=== PATIENT | female | born 1945 | race Caucasian/White ===

== ENCOUNTER 2016-07-17 17:08 | Inpatient (IN) | payer MEDICARE, OTHER ==
[2016-07-17] MEDS ORDERED: HYDROmorphone 1 MG/ML 1 ML SYRINGE IVP STA (17:25)
[2016-07-17 17:52] LABS: INR 1.1 (<1.1); Partial Thromboplastin Time 26.5 sec (22.0-30.0); Prothrombin Time 11.4 sec (9.0-12.0)
[2016-07-17 17:57] LABS: ALT 34 U/L (9-52); AST 43 U/L (14-36); Alkaline Phosphatase 71 U/L (38-126); Anion Gap 10 mmol/L; Blood Urea Nitrogen 17 mg/dL (7-17); Calcium 8.5 mg/dL (8.4-10.2); Carbon Dioxide 28 mmol/L (22-30); Chloride 99 mmol/L (98-107); Glucose 90 mg/dL (74-99); Magnesium 1.8 mg/dL (1.6-2.3); Non-African American GFR(MDRD) 58 (>60 ml/min/1.73 sqM); Potassium 3.7 mmol/L (3.5-5.1); Sodium 137 mmol/L (137-145); Total Bilirubin 0.4 mg/dL (0.2-1.3); Total Protein 6.6 g/dL (6.3-8.2)
[2016-07-17 18:00] LABS: Creatine Kinase 27 U/L (30-135)
[2016-07-17 18:06] LABS: Aty Lym Flag Slight; CH 29.9; CHCM 32.3; HCT 37.1 % (34.0-46.0); HDW 2.63; HGB 12.1 gm/dL (11.4-16.0); MCH 30.3 pg (25.0-35.0); MCHC 32.5 g/dL (31.0-37.0); Mean Platelet Volume 7.2; RBC 3.99 m/uL (3.80-5.40); RDW 13.6 % (11.5-15.5); WBC 2.5 k/uL (3.8-10.6); WBC (Perox) 2.63
[2016-07-17 18:13] LABS: Creatine Kinase MB <0.2 ng/mL (0.0-2.4); Troponin I <0.012 ng/mL (0.000-0.034)
[2016-07-17 18:24] LABS: Add Differential Manual Differential
[2016-07-17 18:27] LABS: Nucleated Red Blood Cells 0 /100 WBC (0-0); Polychromasia Present; Total Cells Counted 100
--- NOTE | 2016-07-17 18:27 | CT ---
EXAMINATION TYPE: CT brain cspine wo con DATE OF EXAM: 07/17/2016 6:01 PM COMPARISON: 09/24/2015 and 05/28/2009 HISTORY: Multiple syncopal episodes today with possible injuries CT DLP: 1458 mGycm Automated exposure control for dose reduction was used. TECHNIQUE: CT scan of the head and cervical spine are performed without contrast. FINDINGS: Ventricles and sulci appear fairly normal. There is no mass effect nor midline shift. The re is no sign of intracranial hemorrhage. The calvarium is intact. The cervical vertebrae are fairly normal alignment. There is degenerative disc space narrowing at C5- 6 C6-7 with spurring of the endplates. There is some encroachment on the spinal canal posteriorly at C5-6. There is uncovertebral spur formation and variable neural foraminal impingement. The skull base is intact. Posterior elements are intact. IMPRESSION: Negative CT scan of the brain. No change compared to old exam. Spondylosis at C5-6 C6-7. There is not a significant change in the appearance of the cervical spine c ompared to 05/28/2009 exam.
[2016-07-17] MEDS ORDERED: HYDROmorphone 2 MG/ML 1 ML SYRINGE IVP STA (18:41)
--- NOTE | 2016-07-17 20:05 | ED ---
Syncope HPI - General Chief Complaint: Syncope Stated Complaint: Syncopal Episode Time Seen by Provider: 07/17/16 17:17 Source: patient, EMS Mode of arrival: EMS Limitations: no limitations - History of Present Illness Initial Comments: This 62-year-old white female presents with a complaint of multiple syncopal episodes today. She apparently had 3 syncopal episodes and fell each time. She hit her head twice. She states that she felt dizzy and nauseated prior to each episode. She is unsure how long she was out of consciousness. She does complain of a slight headache with some swelling posteriorly. She does have a history of previous syncopal episodes. She has been worked up previously by Dr. Hernandez and Dr. Sanchez from cardiology. She also has been worked up at [facility]. She apparently was seen them for GI related issues and then ended up having a pacemaker placed either cardiology department. She had her flecanide and metoprolol stopped 5 days ago and was started on my sotalol per patient. She also was recently started on a liquid this for thinning of her blood due to her atrial fibrillation. She states that each episode occurred with standing. She also is complaining of some chronic low back pain initially and states that she did not injure it during the falls. She later relates that she is having increased low back pain and is requesting an x-ray. No other complaints or modifying factors. - Related Data Home Medications Medication Instructions Recorded Confirmed Gabapentin [Neurontin] 300 mg PO TID 02/15/16 07/17/16 Magnesium Gluconate [Magonate] 500 mg PO DAILY 02/15/16 07/17/16 Potassium Chloride ER [K-Dur 10] 10 meq PO DAILY 02/15/16 07/17/16 SUMAtriptan SUCCINATE [Imitrex] 50 mg PO BID PRN 02/15/16 07/17/16 Omeprazole 20 mg PO BID 03/22/16 07/17/16 Acetaminophen [Tylenol] 650 mg PO Q6H PRN 07/17/16 07/17/16 Apixaban [Eliquis] 5 mg PO BID 07/17/16 07/17/16 Aspirin [Adult Low Dose Aspirin EC] 81 mg PO DAILY 07/17/16 07/17/16 DULoxetine HCL [Cymbalta] 60 mg PO DAILY 07/17/16 07/17/16 Furosemide [Lasix] 40 mg PO DAILY PRN 07/17/16 07/17/16 Metoprolol Tartrate [Lopressor] 25 mg PO TID 07/17/16 07/17/16 Sotalol [Betapace] 120 mg PO BID 07/17/16 07/17/16 Sucralfate [Carafate] 1 gm PO Q6H 07/17/16 07/17/16 Previous Rx's Medication Instructions Recorded Levothyroxine Sodium [Synthroid] 50 mcg PO DAILY@0630 #30 tab 03/27/16 Allergies Allergy/AdvReac Type Severity Reaction Status Date / Time celecoxib [From Celebrex] Allergy Swelling Verified 07/17/16 18:18 sertraline HCl [From Zoloft] Allergy Swelling Verified 07/17/16 18:18 sulfamethoxazole Allergy Rash/Hives Verified 07/17/16 18:18 [From Bactrim] trimethoprim [From Bactrim] Allergy Rash/Hives Verified 07/17/16 18:18 Review of Systems ROS Statement: Those systems with pertinent positive or pertinent negative responses have been documented in the HPI. ROS Other: All systems not noted in ROS Statement are negative. Past Medical History Past Medical History: Atrial Fibrillation, Coronary Artery Disease (CAD), Chest Pain / Angina, Fibromyalgia, Hypertension, Myocardial Infarction (non Q-wave), Osteoarthritis (OA), Thyroid Disorder Additional Past Medical History / Comment(s): 07/13/16 discharged from [facility] FOR C/O SYNCPOPAL EPISODES-OTHER PAST MEDICAL HX INCLUDES: back and shoulder pain,osteoporosis. L4 FX (2012 D/T FALL). RHEUMATIC FEVER. 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 DILATATION OF ESOPHAGUS, pacemaker placed 2 weeks ago 07/07 Past Anesthesia/Blood Transfusion Reactions: Motion Sickness, Postoperative Nausea & Vomiting (PONV) Past Psychological History: Anxiety, Depression Additional Psychological History / Comment(s): PANIC ATTACK Smoking Status: Never smoker Past Alcohol Use History: None Reported Past Drug Use History: None Reported - Past Family History Brother(s) Family Medical History: Cancer Father Family Medical History: COPD, Pneumonia Additional Family Medical History / Comment(s): emphysema Mother Family Medical History: Rheumatoid Arthritis (RA) Additional Family Medical History / Comment(s): smoked, emphysema, ostoeporosis. General Exam - General Exam Comments Initial Comments: GENERAL: The patient is well nourished and well hydrated. VITAL SIGNS: Heart rate, blood pressure, respiratory rate reviewed as recorded in nurse's notes. EYES: Pupils are round and reactive. Extraocular movements are intact. No conjunctival / lid redness or swelling. ENT: There is a mild swelling/hematoma to her right occiput. There is mild associated tenderness. No other signs of trauma. Airway is patent. Throat is clear. NECK: Nontender. No swelling or evidence of injury. No subcutaneous emphysema. Trachea is midline. No thyroid mass. HEART: Regular rate and rhythm. Good peripheral pulses. LUNGS/CHEST: Breath sounds clear and equal bilaterally. No rales, rhonchi, or wheezes. No ecchymosis, subcutaneous emphysema, or tenderness. ABDOMEN: Abdomen soft without tenderness. No palpable masses or organomegaly. No peritoneal signs. No abdominal wall swelling or ecchymosis. EXTREMITIES: No extremity tenderness. Normal muscle tone and function. There is mild tenderness noted to her paralumbar musculature. NEUROLOGIC: Sensation is grossly intact. Cranial nerve exam reveals face is symmetrical, tongue is midline, speech is clear. SKIN: No abrasions or ecchymosis is noted. No induration or masses noted. PSYCHIATRIC: Alert and oriented. Appropriate behavior and judgment. Limitations: no limitations Course Vital Signs 07/17/16 07/17/16 17:12 18:27 Temperature 97.9 F Pulse Rate 85 80 Respiratory 16 18 Rate Blood Pressure 118/76 120/69 O2 Sat by Pulse 96 94 L Oximetry Medical Decision Making - Medical Decision Making The patient was seen and examined. All diagnostics were reviewed. EKG shows an atrial paced rhythm. There is a left axis deviation. There is no acute ST- T wave changes identified. The ventricular rate is 80, ND intervals 184 cure zoroastrianism is 82, and the QTc interval is 507. The patient had a computed tomography scan of the brain which did not show any acute processes other than some swelling in the right occiput. The CT of the neck that shows some spondylosis in the C5 to C7 region but no acute process and this is consistent with prior computed tomography scan. The patient also had some laboratory done and this is reviewed. A lumbar x-ray is later added due to her complaint of pain in this is pending. She received some Dilaudid for her pain syndrome. She is feeling improved on recheck. No ectopy is noted on the director of cardiac cath lab throughout the ER stay thus far. It is felt as though she would require admission to the hospital for further evaluation and treatment and cardiology consultation. She is agreeable. Case is discussed with internal medicine and she is noted in for further treatment. - Lab Data Result diagrams: 07/17/16 17:30 07/17/16 17:30 Lab Results 07/17/16 07/17/16 07/17/16 Range/Units 17:30 17:30 17:30 WBC 2.5 L (3.8-10.6) k/uL RBC 3.99 (3.80-5.40) m/uL Hgb 12.1 (11.4-16.0) gm/dL Hct 37.1 (34.0-46.0) % MCV 93.0 (80.0-100.0) fL MCH 30.3 (25.0-35.0) pg MCHC 32.5 (31.0-37.0) g/dL RDW 13.6 (11.5-15.5) % Plt Count 220 (150-450) k/uL Neutrophils % [employer] Neutrophils % (Manual) 39.0 % Lymphocytes % [employer] Lymphocytes % (Manual) 49.0 % Monocytes % [employer] Monocytes % (Manual) 12.0 % Eosinophils % [employer] Basophils % [employer] Neutrophils # [employer] Neutrophils # (Manual) 1.0 L (1.3-7.7) k/uL Lymphocytes # [employer] Lymphocytes # (Manual) 1.2 (1.0-4.8) k/uL Monocytes # [employer] Monocytes # (Manual) 0.3 (0-1.0) k/uL Eosinophils # [employer] Basophils # [employer] Nucleated RBCs 0 (0-0) /100 WBC Polychromasia Present PT (9.0-12.0) sec INR (<1.1) APTT (22.0-30.0) sec Sodium 137 (137-145) mmol/L Potassium 3.7 (3.5-5.1) mmol/L Chloride 99 (98-107) mmol/L Carbon Dioxide 28 (22-30) mmol/L Anion Gap 10 mmol/L BUN 17 (7-17) mg/dL Creatinine 0.95 (0.52-1.04) mg/dL Est GFR (MDRD) Af Amer >60 (>60 ml/min/1.73 sqM) Est GFR (MDRD) Non-Af 58 (>60 ml/min/1.73 sqM) Glucose 90 (74-99) mg/dL Calcium 8.5 (8.4-10.2) mg/dL Magnesium 1.8 (1.6-2.3) mg/dL Total Bilirubin 0.4 (0.2-1.3) mg/dL AST 43 H (14-36) U/L ALT 34 (9-52) U/L Alkaline Phosphatase 71 (38-126) U/L Total Creatine Kinase 27 L (30-135) U/L CK-MB (CK-2) <0.2 (0.0-2.4) ng/mL CK-MB (CK-2) Rel Index Troponin I <0.012 (0.000-0.034) ng/mL Total Protein 6.6 (6.3-8.2) g/dL Albumin 3.5 (3.5-5.0) g/dL 07/17/16 Range/Units 17:30 WBC (3.8-10.6) k/uL RBC (3.80-5.40) m/uL Hgb (11.4-16.0) gm/dL Hct (34.0-46.0) % MCV (80.0-100.0) fL MCH (25.0-35.0) pg MCHC (31.0-37.0) g/dL RDW (11.5-15.5) % Plt Count (150-450) k/uL Neutrophils % Neutrophils % (Manual) % Lymphocytes % Lymphocytes % (Manual) % Monocytes % Monocytes % (Manual) % Eosinophils % Basophils % Neutrophils # Neutrophils # (Manual) (1.3-7.7) k/uL Lymphocytes # Lymphocytes # (Manual) (1.0-4.8) k/uL Monocytes # Monocytes # (Manual) (0-1.0) k/uL Eosinophils # Basophils # Nucleated RBCs (0-0) /100 WBC Polychromasia PT 11.4 (9.0-12.0) sec INR 1.1 (<1.1) APTT 26.5 (22.0-30.0) sec Sodium (137-145) mmol/L Potassium (3.5-5.1) mmol/L Chloride (98-107) mmol/L Carbon Dioxide (22-30) mmol/L Anion Gap mmol/L BUN (7-17) mg/dL Creatinine (0.52-1.04) mg/dL Est GFR (MDRD) Af Amer (>60 ml/min/1.73 sqM) Est GFR (MDRD) Non-Af (>60 ml/min/1.73 sqM) Glucose (74-99) mg/dL Calcium (8.4-10.2) mg/dL Magnesium (1.6-2.3) mg/dL Total Bilirubin (0.2-1.3) mg/dL AST (14-36) U/L ALT (9-52) U/L Alkaline Phosphatase (38-126) U/L Total Creatine Kinase (30-135) U/L CK-MB (CK-2) (0.0-2.4) ng/mL CK-MB (CK-2) Rel Index Troponin I (0.000-0.034) ng/mL Total Protein (6.3-8.2) g/dL Albumin (3.5-5.0) g/dL Disposition Clinical Impression: Syncope, Head injury, Weakness, Fatigue, Atrial fibrillation, Spondylosis of cervical spine, Prolonged Q-T interval on ECG, Chronic low back pain, Fall Disposition: ADMITTED IP TO THIS [facility] Condition: Fair Time of Disposition: 20:10 Decision Date: 07/17/16 Decision Time: 20:10
[2016-07-17] MEDS ORDERED: ACETAMINOPHEN TAB 325 MG TAB PO PRN (20:15)
[2016-07-17] MEDS ORDERED: FUROSEMIDE 40 MG TAB PO PRN (20:15)
--- NOTE | 2016-07-17 20:30 | XR ---
EXAMINATION TYPE: XR lumbar spine 2 or 3V DATE OF EXAM: 07/17/2016 8:23 PM COMPARISON: 04/11/2013 HISTORY: Low back pain TECHNIQUE: 3 views FINDINGS: Bones are osteopenic. There is 20% depression of the central superior endplate of L4. There is some biconcave change in the L3 vertebra. There are similar changes also at L1 vertebra. There is intact sacrum. Posterior elements appear intact. There is a mild thoracolumbar levoscoliosis. IMPRESSION: There are changes of osteomalacia. Stable mild depression of L4 superior endplate. Osteop enia appears slightly worse than old exam.
[2016-07-17] MEDS: HYDROmorphone 1 MG/ML 1 ML SYRINGE IVP PRN (21:33)
[2016-07-17] MEDS ORDERED: METOPROLOL TARTRATE 25 MG TAB PO SCH (22:00)
[2016-07-17] MEDS: SOTALOL 120 MG TAB PO SCH (22:46)
[2016-07-17] MEDS: GABAPENTIN 300 MG CAP PO SCH (23:40)
[2016-07-17] MEDS: SUCRALFATE 1 GM TAB PO SCH (23:40)
[2016-07-17] MEDS: APIXABAN 5 MG TAB PO SCH (23:40)
[2016-07-18 00:48] LABS: Creatine Kinase 28 U/L (30-135)
[2016-07-18] MEDS: HYDROmorphone 1 MG/ML 1 ML SYRINGE IVP PRN ×4 (00:56→10:32)
[2016-07-18 01:03] LABS: Creatine Kinase MB 0.2 ng/mL (0.0-2.4); Troponin I <0.012 ng/mL (0.000-0.034)
[2016-07-18] MEDS: SUCRALFATE 1 GM TAB PO SCH ×4 (03:36→22:02)
[2016-07-18] MEDS: PANTOPRAZOLE 40 MG TABLET PO SCH (06:23)
[2016-07-18] MEDS: LEVOTHYROXINE 50 MCG TAB PO SCH (06:23)
[2016-07-18 07:01] LABS: Creatine Kinase 33 U/L (30-135)
[2016-07-18 07:13] LABS: Creatine Kinase MB 0.3 ng/mL (0.0-2.4); Troponin I <0.012 ng/mL (0.000-0.034)
[2016-07-18] MEDS: SOTALOL 120 MG TAB PO SCH ×2 (08:02→22:50)
[2016-07-18] MEDS ORDERED: ASPIRIN 325 MG TAB PO SCH (09:00)
[2016-07-18] MEDS ORDERED: SODIUM CHLORIDE 0.9% 1,000 ML IV SCH (09:15)
[2016-07-18 09:42] VITALS: BMI 21.0
[2016-07-18] MEDS: APIXABAN 5 MG TAB PO SCH ×2 (09:46→22:02)
[2016-07-18] MEDS: DULoxetine HCL 60 MG CAPSULE.DR PO SCH (09:47)
[2016-07-18] MEDS: GABAPENTIN 300 MG CAP PO SCH ×3 (09:47→22:02)
[2016-07-18] MEDS: MAGNESIUM OXIDE 400 MG TAB PO SCH (09:48)
[2016-07-18] MEDS: POTASSIUM CHLORIDE ER 10 MEQ TAB.ER.PRT PO SCH (09:49)
--- NOTE | 2016-07-18 11:24 | CONS ---
DATE OF CONSULTATION: Mavis Marquez is a 70-year-old female admitted by Dr. Rich Wong. PATIENT IS ALLERGIC TO MULTIPLE MEDICATIONS, WHICH INCLUDE: ( ) SERTRALINE AND SULFA. The patient admitted to the hospital with recurrent syncope with contusion to the occipital contusion. Patient all these episodes happened while she was standing only and documented to have severe orthostatic hypotension. The patient dropping from 110, 109 down to 73 on the floor, apparently in the emergency room dropped to mid 50s. The patient will discontinue ( ) diuretics which she has been taking on and off and we will get an echocardiogram to assess LV function. I spoke with Dr. Hernandez and the patient's daughter and the patient herself agreed to see Dr. Hernandez for follow-up. Will see. The patient does have dysautonomia with severe orthostatic hypotension. The patient has been on multiple medications, which include: 1. Eliquis 5 mg p.o. b.i.d. 2. Aspirin 325 mg. 3. Cymbalta 60 mg p.o. daily. 4. Furosemide 40 mg p.r.n. only. 5. We will discontinue the Lasix and furosemide for now. 6. Gabapentin 300 mg p.o. t.i.d. 7. The patient is on levothyroxine 50 mg p.o. daily. 8. Magnesium 40 mg p.o. daily. 9. Protonix 40 mg a.c. breakfast. 10. Potassium chloride 10 mEq p.o. daily. 11. ( ) succinate 50 mg b.i.d. p.r.n. 12. Patient is started on IV fluids 100 mL per hour. 13. Sotalol 20 mg p.o. b.i.d. 14. Sucralfate 1 gram q.6 hours daily. Patient's past history remarkable for atrial flutter. Patient also had a pacemaker done 2 to 3 weeks ago. Patient medication changed from Flecainide and metoprolol to sotalol. Patient has severe documented hypotension, orthostatic hypotension. If IV fluids do not correct, we may have to think about fludrocortisone and let my associate, Dr. Hernandez is going to see her today and make any changes in the medications. Patient's review of systems are essentially unremarkable other than what is stated in the presenting illness. Patient is a 70 -year-old pleasant lady with stable vital signs with a pulse rate of 82 beats per minute and irregular, paced rhythm, atrial paced rhythm with blood pressure 90/54 with a standing blood pressure of 55/40 and 73/49 standing on 2 different occasions. I spoke with the patient and family regarding these findings also, treatment. Neck is supple. No JVD. HEAD: Normocephalic. HEENT unremarkable. CARDIAC EXAMINATION: Pacer rhythm, S1 and S2, short systolic murmur at the apex. LUNGS: Clear to auscultation and percussion. ABDOMEN: Soft, no organomegaly. Active bowel sounds. EXTREMITIES: Peripheral pulses. No pedal edema. CENTRAL NERVOUS SYSTEM: Grossly within normal limits. ASSESSMENT: 1. Atrial flutter with atrial paced rhythm. 2. History of gastrointestinal bleed. 3. History of ( ) syncope, recent associated with severe orthostatic hypotension. I spoke with Dr. Hernandez and regarding consult with him and meanwhile we will give IV fluids to keep the volume status up, reduce the hypertension. We will discontinue the diuretics. Will get an echocardiogram to assess LV function.
--- NOTE | 2016-07-18 12:44 | HP ---
DATE OF ADMISSION: 07/17/2016 PRESENTING COMPLAINT: Passed out. HISTORY OF PRESENTING COMPLAINT: This is a very pleasant 70-year-old patient known to me from multiple prior admissions. Patient's chronic stable medical conditions include: Peptic ulcer disease, esophagitis, hypertension, osteoarthritis, depression, esophageal dysmotility from esophagitis. The patient about two to three weeks ago was at [facility] where she had dilatation of the esophagus carried out. Patient also with A. fib, went into rapid rate and patient had to have a pacemaker placed. Patient has been home for about 2 weeks and patient had 3 episodes of passing out. Typically described that for example she was in the kitchen, really felt dizzy and then everything seemed to blank out and patient fell down bumping her head. Once it happened on the phone. This always happens when patient is standing up. REVIEW OF SYSTEMS: CONSTITUTIONAL: Tired. HEENT: A little bit bump on the head. RESPIRATORY: None. CARDIOVASCULAR: No chest pain. GASTROINTESTINAL: Some constipation. GENITOURINARY: None. MUSCULOSKELETAL: Pain in the joints. Dermatological: None. HEMATOLOGICAL: None. LYMPHATICS: None. PSYCHIATRY: None. NEUROLOGICAL: Intermittent chronic headaches. Past medical history of hypothyroidism, fibromyalgia, hypertension, DJD, esophagitis with henri infection, esophageal stricture, anxiety, depression, paroxysmal atrial fibrillation, iliopsoas with esophagitis, peptic ulcer disease. PAST SURGICAL HISTORY: Esophageal dilatation, pacemaker placement, ORIF of the right lower arm, cardiac cath, appendectomy. SOCIAL HISTORY: No smoking. Lives by herself. No alcohol. Family history of emphysema. ALLERGIES: CELEBREX, ZOLOFT AND BACTRIM. On examination: Vital signs on presentation: Temperature 97.9, pulse 85, respiration 16, blood pressure 108/76, pulse ox 96% on 2 liters. GENERAL APPEARANCE: Very thin build, lying in bed. Tired -appearing. EYES: Pupils equal. Conjunctivae pale. HEENT: External appearance of nose and ears normal. Oral cavity normal. NECK: JVD not raised. Mass not palpable. RESPIRATORY: Effort normal. LUNGS: Clear. CARDIOVASCULAR: First and second sounds normal. No edema. ABDOMEN: Soft, nontender. Liver and spleen not palpable. LYMPHATIC: No lymph nodes palpable in neck or axillae. PSYCHIATRY: Alert and oriented x3. Mood and affect anxious appearing. MUSCULOSKELETAL: Some diffuse wasting of the muscles. INVESTIGATIONS: White count 2.5, hemoglobin 12.1, potassium 3.7. BUN and creatinine are normal. Troponin negative. EKG shows paced rhythm. Lumbar spine x-ray shows some osteopenia and head and cervical spine CAT scan nil acute. ASSESSMENT: 1. This is a patient who presented with three episodes of syncope, passing out, recently had a pacemaker placed for atrial fibrillation with rapid ventricular rate, that well could be arrhythmia, ( ) the response to the same, need to rule out orthostatic. 2. Peptic ulcer disease. 3. Chronic esophagitis. 4. Essential hypertension. 5. Primary osteoarthritis multiple joints, bilateral. 6. Depression, not otherwise specified. 7. Esophageal dysmotility. 8. Hypothyroidism. PLAN: Home medications will be resumed. We will check orthostatics. Cardiology is consulted. It also may be noted that 5 days ago patient's flecainide and metoprolol was discontinued because felt to be causing low blood pressure and she was started on sotalol. Copy to Dr. Wray.
--- NOTE | 2016-07-18 13:41 | ECHOF ---
Referral Reason:syncope MEASUREMENTS -------- HEIGHT: 154.9 cm WEIGHT: 50.4 kg BP: 103/55 RVIDd: 3.2 cm (< 3.3) IVSd: 1.3 cm (0.6 - 1.1) LVIDd: 2.5 cm (3.9 - 5.3) LVPWd: 1.2 cm (0.6 - 1.1) IVSs: 1.6 cm LVIDs: 2.3 cm LVPWs: 1.6 cm LA Diam: 3.3 cm (2.7 - 3.8) LAESV Index (A-L): 17.71 ml/m Ao Diam: 2.6 cm (2.0 - 3.7) AV Cusp: 1.7 cm (1.5 - 2.6) LA Diam: 2.6 cm (2.7 - 3.8) MV EXCURSION: 11.540 mm (> 18.000) MV EF SLOPE: 34 mm/s (70 - 150) EPSS: 0.3 cm MV E Jon: 0.41 m/s MV DecT: 171 ms MV A Jon: 0.73 m/s MV E/A Ratio: 0.56 AR PHT: 1148 ms RAP: 5.00 mmHg RVSP: 30.10 mmHg FINDINGS -------- Sinus rhythm. Paced rhythm. Pacerwire seen in RV and RA. This was a technically good study. The left ventricular size is normal. There is mild concentric left ventricular hypertrophy. Overall left ventricular systolic function is normal with, an EF between 55 - 60 %. The right ventricle is normal in size. Normal LA size by volume 22+/-6 ml/m2. The right atrium is normal in size. Aortic valve is trileaflet and is mildly thickened. There is mild aortic regurgitation. Mild mitral annular calcification present. Mild mitral regurgitation is present. Moderate tricuspid regurgitation present. Right ventricular systolic pressure is normal at < 35 mmHg. Trace/mild (physiologic) pulmonic regurgitation. The aortic root, ascending aorta and aortic arch are normal. Normal inferior vena cava with normal inspiratory collapse consistent with estimated right atrial pressure of 5 mmHg. There is no pericardial effusion. CONCLUSIONS -------- 1. Sinus rhythm. 2. Mild mitral regurgitation is present. 3. Right ventricular systolic pressure is normal at < 35 mmHg. 4. Trace/mild (physiologic) pulmonic regurgitation. 5. The aortic root, ascending aorta and aortic arch are normal. 6. Normal inferior vena cava with normal inspiratory collapse consistent with estimated right atrial pressure of 5 mmHg. 7. There is no pericardial effusion. 8. Paced rhythm. 9. Pacerwire seen in RV and RA. 10. This was a technically good study. 11. There is mild concentric left ventricular hypertrophy. 12. Normal LA size by volume 22+/-6 ml/m2. 13. Aortic valve is trileaflet and is mildly thickened. 14. There is mild aortic regurgitation. 15. Mild mitral annular calcification present. BUILDING ENGINEER: Margarita Kevin RDCS
[2016-07-18] MEDS: HYDROcodone/APAP 5-325MG 1 EACH TAB PO PRN ×2 (16:27→22:02)
[2016-07-18] MEDS: DIGOXIN 250 MCG TAB PO SCH (16:28)
--- NOTE | 2016-07-18 17:45 | P.CRDCN ---
History of Present Illness Consult reason: atrial fibrillation, hypotension History of present illness: Consulted by Dr. Jensen on this patient who presented with episodes of presyncope and hypotension. Patient admitted to the hospital with recurrent episodes of syncope associated with head contusion secondary to the falls. These episodes occur when she is standing up and orthostatic hypotension has been documented. A drop to 73 mmHg has been documented. In the emergency room blood pressure dropped to 50 mmHg She was recently in [facility] She was being evaluated for her esophageal problems but every time instrumentation was performed she would go into atrial fibrillation with RVR and according to the notes in the [facility] portal, tachybradycardia syndrome as mentioned. Dr. bruno implanted a dual chamber pacemaker about 2-3 weeks back. Flecainide was discontinued and sotalol was added According to the patient, she has not tolerated beta blockers in the past secondary to hypotension she was a combination of flecainide and beta blockers for suppression of atrial fibrillation At this time she denies any chest discomfort no undue shortness of breath. She is quite concerned about these falls Past history of esophageal problems including dysphagia and odynophagia. I don' t have her final, exact esophageal diagnosis but the daughter will get me this information History includes paroxysmal atrial fibrillation with RVR and apparently tachybradycardia syndrome as documented at [facility]. She had normal coronary arteries in the year 2002 by cardiac catheterization History of diana esophagitis and GI bleeding related to the esophageal infection. She was on Coumadin at that time. She has not had any bleeding problems on ELIQUIS On examination Her supine blood pressures 120/66. His mercury but she was quite orthostatic. Afebrile 97.2F No JVD no thyromegaly no carotid bruits Heart sounds S1 and S2 normal no murmurs or gallops Abdomen soft nontender Breath sounds are normal no rhonchi no crackles Extremities are warm no edema Impression Significant orthostatic hypotension while on sotalol, similar reactions noted when she was on metoprolol Paroxysmal atrial fibrillation RVR status post permanent pacemaker implantation for tachybradycardia syndrome at [facility], sotalol given for suppression of atrial fibrillation Currently the twelve-lead ECG shows an atrial paced rhythm Odynophagia and dysphagia history of Diana esophagitis recent esophageal dilation, I'm waiting for the patient's final diagnosis Suggest No more beta blockers Start digoxin 0.25 mg by mouth daily today Stop sotalol today Start flecainide 50 mg 3 times a day tomorrow. She was experiencing breakthrough episodes on flecainide and these episodes would also occur during esophageal instrumentation/anesthesia The other choice would be another antiarrhythmic drug for vagally mediated atrial fibrillation Continue ELIQUIS Monitor on telemetry and watch for any orthostasis She does not remember having been treated with verapamil or diltiazem either Past Medical History Past Medical History: Atrial Fibrillation, Coronary Artery Disease (CAD), Chest Pain / Angina, Fibromyalgia, Hypertension, Myocardial Infarction (non Q-wave), Osteoarthritis (OA), Thyroid Disorder Additional Past Medical History / Comment(s): 07/13/16 discharged from [facility] FOR C/O SYNCPOPAL EPISODES-OTHER PAST MEDICAL HX INCLUDES: back and shoulder pain,osteoporosis. L4 FX (2012 D/T FALL). RHEUMATIC FEVER. 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 DILATATION OF ESOPHAGUS, pacemaker placed 07/07 Past Anesthesia/Blood Transfusion Reactions: Motion Sickness, Postoperative Nausea & Vomiting (PONV) Type of Cardiac Device: Permanent Pacemaker Device Placement Date:: 06/2016 Past Psychological History: Anxiety, Depression Additional Psychological History / Comment(s): PANIC ATTACK Smoking Status: Never smoker Past Alcohol Use History: None Reported Past Drug Use History: None Reported - Past Family History Brother(s) Family Medical History: Cancer Father Family Medical History: COPD, Pneumonia Additional Family Medical History / Comment(s): emphysema Mother Family Medical History: Rheumatoid Arthritis (RA) Additional Family Medical History / Comment(s): smoked, emphysema, ostoeporosis. Medications and Allergies Home Medications Medication Instructions Recorded Confirmed Type Gabapentin [Neurontin] 300 mg PO TID 02/15/16 07/17/16 History Magnesium Gluconate [Magonate] 500 mg PO DAILY 02/15/16 07/17/16 History Potassium Chloride ER [K-Dur 10] 10 meq PO DAILY 02/15/16 07/17/16 History SUMAtriptan SUCCINATE [Imitrex] 50 mg PO BID PRN 02/15/16 07/17/16 History Omeprazole 20 mg PO BID 03/22/16 07/17/16 History Acetaminophen [Tylenol] 650 mg PO Q6H PRN 07/17/16 07/17/16 History Apixaban [Eliquis] 5 mg PO BID 07/17/16 07/17/16 History Aspirin [Adult Low Dose Aspirin EC] 81 mg PO DAILY 07/17/16 07/17/16 History DULoxetine HCL [Cymbalta] 60 mg PO DAILY 07/17/16 07/17/16 History Furosemide [Lasix] 40 mg PO DAILY PRN 07/17/16 07/17/16 History Sotalol [Betapace] 120 mg PO BID 07/17/16 07/17/16 History Sucralfate [Carafate] 1 gm PO Q6H 07/17/16 07/17/16 History Allergies Allergy/AdvReac Type Severity Reaction Status Date / Time celecoxib [From Celebrex] Allergy Swelling Verified 07/17/16 18:18 sertraline HCl [From Zoloft] Allergy Swelling Verified 07/17/16 18:18 sulfamethoxazole Allergy Rash/Hives Verified 07/17/16 18:18 [From Bactrim] trimethoprim [From Bactrim] Allergy Rash/Hives Verified 07/17/16 18:18 Physical Exam Vitals: Vital Signs Temp Pulse Pulse Resp BP BP BP 07/18/16 16:00 97.2 F L 84 16 120/66 07/18/16 12:00 80 16 07/18/16 11:14 96.3 F L 87 16 113/72 91/63 07/18/16 10:27 16 133/65 07/18/16 09:29 07/18/16 09:15 87 16 07/18/16 08:10 83 16 109/64 73/49 07/18/16 08:00 16 07/18/16 03:30 98.1 F 82 16 07/17/16 23:16 75 55/40 07/17/16 23:15 82 90/54 07/17/16 23:14 93 07/17/16 22:46 82 16 07/17/16 21:34 76 16 117/64 07/17/16 20:31 85 16 114/77 BP BP Pulse Ox 07/18/16 16:00 95 07/18/16 12:00 07/18/16 11:14 114/68 97 07/18/16 10:27 95 07/18/16 09:29 95 07/18/16 09:15 07/18/16 08:10 103/61 95 07/18/16 08:00 07/18/16 03:30 103/55 99 07/17/16 23:16 07/17/16 23:15 07/17/16 23:14 133/59 07/17/16 22:46 99/60 94 L 07/17/16 21:34 97 07/17/16 20:31 97 Intake and Output 07/18/16 07/18/16 07/18/16 06:59 14:59 22:59 Intake Total 150 210 460 Balance 150 210 460 Intake: Oral 150 210 460 Other: Voiding Method Bedside Commode Bedside Commode Bedside Commode # Voids 1 1 2 Weight 50.5 kg 50.5 kg Patient Weight 07/19/16 06:59 Weight 50.5 kg Results 07/17/16 17:30 07/17/16 17:30 Cardiac Enzymes 07/17/16 07/18/16 Range/Units 23:53 05:36 CK-MB (CK-2) 0.2 0.3 (0.0-2.4) ng/mL Troponin I <0.012 <0.012 (0.000-0.034) ng/mL Current Medications Generic Name Dose Route Start Last Admin Trade Name Freq PRN Reason Stop Dose Admin Acetaminophen 650 mg 07/17/16 20:15 Tylenol Tab PO Q6H PRN Pain Hydrocodone Bitart/Acetaminophen 1 each 07/18/16 16:15 07/18/16 16:27 George 5-325 PO 1 each Q6HR PRN Administration Pain Apixaban 5 mg 07/17/16 21:00 07/18/16 09:46 Eliquis PO 5 mg BID INOCENCIO Administration Digoxin 250 mcg 07/18/16 16:00 07/18/16 16:28 Lanoxin PO 250 mcg DAILY INOCENCIO Administration Duloxetine HCl 60 mg 07/18/16 09:00 07/18/16 09:47 Cymbalta PO 60 mg DAILY INOCENCIO Administration Flecainide Acetate 50 mg 07/19/16 09:00 Tambocor PO TID INOCENCIO Gabapentin 300 mg 07/17/16 22:00 07/18/16 16:59 Neurontin PO 300 mg TID INOCENCIO Administration Levothyroxine Sodium 50 mcg 07/18/16 06:30 07/18/16 06:23 Synthroid PO 50 mcg DAILY@0630 INOCENCIO Administration Magnesium Oxide 400 mg 07/18/16 09:00 07/18/16 09:48 Mag-Ox PO 400 mg DAILY INOCENCIO Administration Pantoprazole Sodium 40 mg 07/18/16 07:30 07/18/16 06:23 Protonix PO 40 mg [id number] INOCENCIO Administration Potassium Chloride 10 meq 07/18/16 09:00 07/18/16 09:49 K-Dur 10 PO 10 meq DAILY INOCENCIO Administration Sotalol HCl 120 mg 07/17/16 21:00 07/18/16 08:02 Betapace PO Not Given BID [facility] Sucralfate 1 gm 07/17/16 22:00 07/18/16 16:59 Carafate PO 1 gm Q6H INOCENCIO Administration Sumatriptan Succinate 50 mg 07/17/16 20:15 Imitrex PO BID PRN Migraine Headache Intake and Output 07/18/16 07/18/16 07/18/16 06:59 14:59 22:59 Intake Total 150 210 460 Balance 150 210 460 Intake: Oral 150 210 460 Other: Voiding Method Bedside Commode Bedside Commode Bedside Commode # Voids 1 1 2 Weight 50.5 kg 50.5 kg Patient Weight 07/19/16 06:59 Weight 50.5 kg
--- NOTE | 2016-07-18 20:33 | P.CONS ---
History of Present Illness - Reason for Consult Consult date: 07/18/16 Requesting physician: Rich Wong - Chief Complaint back pain - History of Present Illness Thank you for allowing me to participate in the care of Ms. Marquez. Ms. Marquez is a 70-year-old right-handed female with 2 children her daughter of which lives locally. She lives alone in a duplex with one step to enter and states she is independent for ADLs and IADLs. 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 Ms. Marquez presented to the hospital after multiple episodes of syncope and falling with associated complaints of neck pain, low back pain and left knee pain. She states she has a history of chronic back pain since an L4 fracture in 2013 and that her back pain flares up 3-4 times a week and then these pain episodes last for 24 hours at a time and she just tries to manage with Tylenol and rest. She last had physical therapy in 2014. She continues to complain of back pain 6-8 out of 10 in intensity and described as deep constant aching and throbbing. She states it is worse with activity at times and alleviated by rest and Tylenol. She states that her current episode of pain is due to lying on uncomfortable hospital beds and stretchers. She states her left knee pain is new likely from one of her recent falls and this is most bothersome at this time. She was given some Oliver today which helped alleviate her pain symptoms. Family history: Mother with chronic spine problems. Social history: Patient denies alcohol tobacco or illicit drug use. Review of Systems 12 point review of systems was performed and negative unless otherwise indicated in HPI. Past Medical History Past Medical History: Atrial Fibrillation, Coronary Artery Disease (CAD), Chest Pain / Angina, Fibromyalgia, GERD/Reflux (ulcer), Hypertension, Myocardial Infarction (non Q-wave), Osteoarthritis (OA), Thyroid Disorder Additional Past Medical History / Comment(s): 07/13/16 discharged from [facility] FOR C/O SYNCPOPAL EPISODES-OTHER PAST MEDICAL HX INCLUDES: back and shoulder pain,osteoporosis. L4 FX (2012 D/T FALL). RHEUMATIC FEVER. 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 DILATATION OF ESOPHAGUS, pacemaker placed 07/07 Past Anesthesia/Blood Transfusion Reactions: Motion Sickness, Postoperative Nausea & Vomiting (PONV) Type of Cardiac Device: Permanent Pacemaker Device Placement Date:: 06/2016 Past Psychological History: Anxiety, Depression Additional Psychological History / Comment(s): PANIC ATTACK Smoking Status: Never smoker Past Alcohol Use History: None Reported Past Drug Use History: None Reported - Past Family History Brother(s) Family Medical History: Cancer Father Family Medical History: COPD, Pneumonia Additional Family Medical History / Comment(s): emphysema Mother Family Medical History: Rheumatoid Arthritis (RA) Additional Family Medical History / Comment(s): smoked, emphysema, ostoeporosis. Medications and Allergies Home Medications Medication Instructions Recorded Confirmed Type Gabapentin [Neurontin] 300 mg PO TID 02/15/16 07/17/16 History Magnesium Gluconate [Magonate] 500 mg PO DAILY 02/15/16 07/17/16 History Potassium Chloride ER [K-Dur 10] 10 meq PO DAILY 02/15/16 07/17/16 History SUMAtriptan SUCCINATE [Imitrex] 50 mg PO BID PRN 02/15/16 07/17/16 History Omeprazole 20 mg PO BID 03/22/16 07/17/16 History Acetaminophen [Tylenol] 650 mg PO Q6H PRN 07/17/16 07/17/16 History Apixaban [Eliquis] 5 mg PO BID 07/17/16 07/17/16 History Aspirin [Adult Low Dose Aspirin EC] 81 mg PO DAILY 07/17/16 07/17/16 History DULoxetine HCL [Cymbalta] 60 mg PO DAILY 07/17/16 07/17/16 History Furosemide [Lasix] 40 mg PO DAILY PRN 07/17/16 07/17/16 History Sotalol [Betapace] 120 mg PO BID 07/17/16 07/17/16 History Sucralfate [Carafate] 1 gm PO Q6H 07/17/16 07/17/16 History Allergies Allergy/AdvReac Type Severity Reaction Status Date / Time celecoxib [From Celebrex] Allergy Swelling Verified 07/17/16 18:18 sertraline HCl [From Zoloft] Allergy Swelling Verified 07/17/16 18:18 sulfamethoxazole Allergy Rash/Hives Verified 07/17/16 18:18 [From Bactrim] trimethoprim [From Bactrim] Allergy Rash/Hives Verified 07/17/16 18:18 Physical Exam Osteopathic Statement: *. No significant issues noted on an osteopathic structural exam other than those noted in the History and Physical/Consult. Vitals: Vital Signs Temp Pulse Pulse Resp BP BP BP 07/18/16 16:00 97.2 F L 84 16 120/66 07/18/16 12:00 80 16 07/18/16 11:14 96.3 F L 87 16 113/72 91/63 07/18/16 10:27 16 133/65 07/18/16 09:29 07/18/16 09:15 87 16 07/18/16 08:10 83 16 109/64 73/49 07/18/16 08:00 16 07/18/16 03:30 98.1 F 82 16 07/17/16 23:16 75 55/40 07/17/16 23:15 82 90/54 07/17/16 23:14 93 07/17/16 22:46 82 16 07/17/16 21:34 76 16 117/64 07/17/16 20:31 85 16 114/77 BP BP Pulse Ox 07/18/16 16:00 95 07/18/16 12:00 07/18/16 11:14 114/68 97 07/18/16 10:27 95 07/18/16 09:29 95 07/18/16 09:15 07/18/16 08:10 103/61 95 07/18/16 08:00 07/18/16 03:30 103/55 99 07/17/16 23:16 07/17/16 23:15 07/17/16 23:14 133/59 07/17/16 22:46 99/60 94 L 07/17/16 21:34 97 07/17/16 20:31 97 Intake and Output 07/18/16 07/18/16 07/18/16 06:59 14:59 22:59 Intake Total 150 210 580 Balance 150 210 580 Intake: Oral 150 210 580 Other: Voiding Method Bedside Commode Bedside Commode Bedside Commode # Voids 1 1 2 Weight 50.5 kg 50.5 kg Patient Weight 07/19/16 06:59 Weight 50.5 kg Gen.: Patient alert oriented not in acute distress HEENT: Normocephalic atraumatic extraocular muscles intact Cardiovascular: Heart regular rate and rhythm no peripheral edema noted Respiratory: No accessory muscle use was noted breathing nonlabored Abdomen: Soft nontender nondistended Neurologic: Patient ambulates with an antalgic gait due to left knee pain, sensation to pinprick normal L2 through S1 bilaterally, patellar reflexes 2/4 bilaterally, Achilles reflexes 0/4 bilaterally, no ankle clonus noted, patient is able to heel and toe stand Musculoskeletal examination:no tenderness to palpation of the lumbar spine, forward flexion no pain, extension reproduces low back pain, side bending bilaterally without pain, facet loading reproduces back pain. Hip flexion 4/5 bilaterally, knee extension, dorsiflexion, ankle inversion, ankle eversion, EHL 5/5 bilaterally, tenderness to palpation medial lateral joint lines of the left knee no effusion or erythema noted. Results Results: reviewed x-ray reports and images of lumbar spine which revealed chronic L4 fracture, reviewed computed tomography scan report of thecervical spine which showed diffuse spondylosis. CBC & Chem 7: 07/17/16 17:30 07/17/16 17:30 Labs: Abnormal Lab Results - Last 24 Hours (Table) 07/17/16 Range/Units 23:53 Total Creatine Kinase 28 L (30-135) U/L Assessment and Plan (1) Back pain Status: Acute (2) Lumbar spondylosis Status: Acute (3) Chronic pain Status: Acute (4) Knee pain, acute Status: Acute (5) Knee pain, left Status: Acute Plan: At this time I do not find that the patient needs any further imaging evaluation of her lumbar spine as an inpatient. She would be a good candidate for lumbar medial branch blocks and subsequent rhizotomy on an outpatient basis. She can continue to utilize Tylenol at home. She states that she has tried tramadol in the past and that bothered her stomach. Due to her dysphagia she could have hydrocodone liquid 5 mg 3 times daily as needed for painful episodes. We'll order x-rays of the left knee to assess for possible fracture if x-rays negative likely contusion related to fall. Please call with any questions or comments. Time with Patient: Greater than 30
--- NOTE | 2016-07-18 22:30 | XR ---
EXAMINATION TYPE: XR knee complete LT DATE OF EXAM: 07/18/2016 8:55 PM COMPARISON: NONE HISTORY: Pain after multiple falls yesterday TECHNIQUE: 3 views FINDINGS: There is marked generalized osteopenia. There is tricompartmental osteoarthritis changes, [id number] in degree and most advanced in the medial compartment. There is no evident fracture or malalignment. IMPRESSION: NO DEFINITE ACUTE RADIOGRAPHIC PROCESS, IN THE SETTING OF ADVANCED GENERALIZED OSTEOPENIA WITH POSTTR AUMATIC PAIN. If there is a high degree of suspicion for occult fracture, would suggest consideration of CT or MR e valuation.
[2016-07-19] MEDS: HYDROcodone/APAP 5-325MG 1 EACH TAB PO PRN ×4 (03:39→20:58)
[2016-07-19] MEDS: LEVOTHYROXINE 50 MCG TAB PO SCH (06:39)
[2016-07-19] MEDS: SUCRALFATE 1 GM TAB PO SCH ×4 (06:40→20:59)
[2016-07-19] MEDS: PANTOPRAZOLE 40 MG TABLET PO SCH (06:40)
[2016-07-19] MEDS: SOTALOL 120 MG TAB PO SCH (07:49)
[2016-07-19] MEDS: DIGOXIN 250 MCG TAB PO SCH (09:15)
[2016-07-19] MEDS: FLECAINIDE 50 MG TAB PO SCH ×3 (09:15→20:58)
[2016-07-19] MEDS: APIXABAN 5 MG TAB PO SCH ×2 (09:15→20:58)
[2016-07-19] MEDS: DULoxetine HCL 60 MG CAPSULE.DR PO SCH (09:15)
[2016-07-19] MEDS: POTASSIUM CHLORIDE ER 10 MEQ TAB.ER.PRT PO SCH (09:16)
[2016-07-19] MEDS: MAGNESIUM OXIDE 400 MG TAB PO SCH (09:16)
[2016-07-19] MEDS: GABAPENTIN 300 MG CAP PO SCH ×3 (09:16→20:58)
--- NOTE | 2016-07-19 10:35 | P.PN ---
Subjective Principal diagnosis: Syncope This is a 70-year-old patient who presented to the hospital with symptoms of recurrent syncope. She was found to be significantly orthostatic, having blood pressures in the 70s systolic. On presentation here patient was taking sotalol. She recently had a pacemaker implanted at [facility]. Patient had been on beta farshad and flecainide as an outpatient but because of significant hypotension and this had been discontinued. She also has history of paroxysmal atrial fibrillation, on Eliquis for anticoagulation. Patient has history of Diana esophagitis and GI bleeding related to esophageal infection. She was on Coumadin at that time. Patient has not had any bleeding issues on Eliquis. Echocardiogram with Doppler study was performed which revealed an ejection fraction of 55-60%. Patient was seen in consultation by Dr. Hernandez yesterday. He felt that the patient had significant orthostatic hypotension while on sotalol. His recommendation was to not use beta blockers, he started Lanoxin, stop the sotalol, initiated flecainide 50 mg 3 times a day. We will continue to monitor the patient and watch for any orthostasis. TSH level 0.015. Patient states she had been taking 50 g of Synthroid at home, this had been discontinued as an outpatient because of hyperthyroidism. At the time of my examination this morning, patient denies any dizziness or lightheadedness. Blood pressure 108/60 lying, 93/56 sitting, 87/53 standing. Objective - Vital Signs Vital signs: Vital Signs Temp 97.6 F 07/19/16 08:00 Pulse 86 07/19/16 09:25 Resp 18 07/19/16 09:25 BP 108/61 07/19/16 08:00 Pulse Ox 99 07/19/16 08:00 Intake & Output 07/18/16 07/19/16 07/19/16 18:59 06:59 18:59 Intake Total 790 240 Output Total 500 Balance 790 -500 240 Weight 50.5 kg 50.5 kg Intake: Oral 790 240 Output: Urine 500 Other: Voiding Method Bedside Commode Toilet Toilet # Voids 2 0 - Exam PHYSICAL EXAMINATION: HEENT: Head is atraumatic, normocephalic. Pupils equal, round. Neck is supple. There is no elevated jugular venous pressure. HEART EXAMINATION: Heart S1 S2 1 systolic murmur is heard. CHEST EXAMINATION: Lungs are clear to auscultation and precussion. No chest wall tenderness is noted on palpation or with deep breathing. ABDOMEN: Soft, nontender. Bowel sounds are heard. No organomegaly noted. EXTREMITIES: 2+ peripheral pulses with no evidence of peripheral edema and no calf tenderness noted. NEUROLOGIC patient is awake, alert and oriented -3. . - Labs CBC & Chem 7: 07/17/16 17:30 07/17/16 17:30 Labs: Abnormal Lab Results - Last 24 Hours (Table) 07/19/16 Range/Units 06:01 TSH <0.015 L (0.465-4.680) mIU/L Assessment and Plan (1) Syncope Status: Acute (2) Orthostatic hypotension Status: Acute (3) Pacemaker Status: Acute (4) Hypothyroid Status: Acute (5) Paroxysmal a-fib Status: Acute Plan: From cardiology's perspective, we will recommend to continue the patient off of beta farshad and off of sotalol. Patient has been initiated on Lanoxin along with flecainide. We will continue to monitor for any orthostasis. We will also give the patient bilateral STEPHANIA hose stockings. Continue to hold off on her thyroid medication. Check cortisol level. DNP note has been reviewed, I agree with a documented findings and plan of care. Patient was seen and examined.
[2016-07-19] MEDS ORDERED: LIDOCAINE 5% PATCH TOPICAL ONE (16:45)
[2016-07-19] MEDS ORDERED: LIDOCAINE 5% PATCH TOPICAL SCH (16:45)
[2016-07-19] MEDS: SUMAtriptan SUCCINATE 50 MG TAB PO PRN (19:50)
--- NOTE | 2016-07-19 22:45 | PN ---
DATE OF SERVICE: 07/19/2016 PRESENTING COMPLAINT: Passed out. INTERVAL HISTORY: This is a patient who passed out with atrial fibrillation with rapid ventricular rate and also orthostatic, like a tachybrady syndrome. Patient has a recently placed pacemaker. Seen by Dr. Hernandez from Electrophysiology, started on digoxin and flecainide. Patient has had no further episodes. Patient was also seen by Orthopedics. Pain control is reasonable. Patient has a heating pad, Grover. Patient has been up to the bathroom, tolerating a diet. No further episodes of dizziness. Review of systems done for constitutional, cardiovascular, GI, pulmonary, musculoskeletal; relevant findings as above. Current medications are reviewed. On examination, temperature 97.2, pulse 86, respiration 18, blood pressure 107/70. No orthostatics. Pulse ox 95% on room air. GENERAL APPEARANCE: Sitting up in bed. Comfortable. Smiling. EYES: Pupils equal. Conjunctivae pale. NECK: JVD not raised. Mass not palpable. RESPIRATORY: Effort normal. Lungs are clear. CARDIOVASCULAR: First and second sounds normal. No edema. ABDOMEN: Soft, nontender. Liver and spleen not palpable. PSYCHIATRY: Alert and oriented x3. Mood and affect normal. INVESTIGATIONS: Telemetry shows paced rhythm. TSH has come back as less than 0.015. ASSESSMENT: 1. Tachybrady syndrome, including effects from patient being on beta farshad, now discontinued. 2. Pacemaker in place. 3. Peptic ulcer disease. 4. Chronic esophagitis. 5. Essential hypertension. 6. Primary osteoarthritis in multiple joints, bilateral. 7. Depression not otherwise specified. 8. Hyperthyroidism from overreplacement. Patient's free T4 was really depressed. PLAN: Patient's Synthroid has been discontinued. Continue the patient on flecainide and digoxin. Encourage the patient to ambulate. Will also use a Lidoderm patch. Care was discussed with the patient.
[2016-07-20] MEDS: SUMAtriptan SUCCINATE 50 MG TAB PO PRN ×2 (00:03→12:36)
[2016-07-20] MEDS: HYDROcodone/APAP 5-325MG 1 EACH TAB PO PRN ×3 (03:17→15:33)
[2016-07-20] MEDS: SUCRALFATE 1 GM TAB PO SCH ×3 (06:23→16:21)
[2016-07-20] MEDS: LEVOTHYROXINE 50 MCG TAB PO SCH (06:23)
[2016-07-20] MEDS: PANTOPRAZOLE 40 MG TABLET PO SCH (06:23)
[2016-07-20] MEDS: APIXABAN 5 MG TAB PO SCH (08:30)
[2016-07-20] MEDS: DIGOXIN 250 MCG TAB PO SCH (08:30)
[2016-07-20] MEDS: FLECAINIDE 50 MG TAB PO SCH ×2 (08:31→16:21)
[2016-07-20] MEDS: POTASSIUM CHLORIDE ER 10 MEQ TAB.ER.PRT PO SCH (08:31)
[2016-07-20] MEDS: DULoxetine HCL 60 MG CAPSULE.DR PO SCH (08:32)
[2016-07-20] MEDS: MAGNESIUM OXIDE 400 MG TAB PO SCH (08:32)
[2016-07-20] MEDS: GABAPENTIN 300 MG CAP PO SCH ×2 (08:33→16:22)
[2016-07-20] MEDS ORDERED: LIDOCAINE 5% PATCH TOPICAL SCH (09:00)
--- NOTE | 2016-07-20 11:34 | P.PN ---
Subjective Principal diagnosis: Syncope This is a 70-year-old patient who presented to the hospital with symptoms of recurrent syncope. She was found to be significantly orthostatic, having blood pressures in the 70s systolic. On presentation here patient was taking sotalol. She recently had a pacemaker implanted at [facility]. Patient had been on beta farshad and flecainide as an outpatient but because of significant hypotension and this had been discontinued. She also has history of paroxysmal atrial fibrillation, on Eliquis for anticoagulation. Patient has history of Diana esophagitis and GI bleeding related to esophageal infection. She was on Coumadin at that time. Patient has not had any bleeding issues on Eliquis. Echocardiogram with Doppler study was performed which revealed an ejection fraction of 55-60%. Patient was seen in consultation by Dr. Hernandez, He felt that the patient had significant orthostatic hypotension while on sotalol. His recommendation was to not use beta blockers, he started Lanoxin, stop the sotalol, initiated flecainide 50 mg 3 times a day. We will continue to monitor the patient and watch for any orthostasis. TSH level 0.015. Patient states she had been taking 50 g of Synthroid at home, this had been discontinued as an outpatient because of hyperthyroidism. At the time of my examination this morning, patient denies any dizziness or lightheadedness. Blood pressure this morning 115/67 lying 103/55 sitting and 98/55 standing patient denies any dizziness or lightheadedness. Objective - Vital Signs Vital signs: Vital Signs Temp 98.4 F 07/20/16 11:05 Pulse 80 07/20/16 11:05 Resp 18 07/20/16 11:05 BP 115/67 07/20/16 09:14 Pulse Ox 96 07/20/16 11:05 Intake & Output 07/19/16 07/20/16 07/20/16 18:59 06:59 18:59 Intake Total 900 240 Balance 900 240 Weight 50.5 kg Intake: Oral 900 240 Other: Voiding Method Toilet Toilet Toilet # Voids 2 1 - Exam PHYSICAL EXAMINATION: HEENT: Head is atraumatic, normocephalic. Pupils equal, round. Neck is supple. There is no elevated jugular venous pressure. HEART EXAMINATION: Heart S1 S2 1 systolic murmur is heard. CHEST EXAMINATION: Lungs are clear to auscultation and precussion. No chest wall tenderness is noted on palpation or with deep breathing. ABDOMEN: Soft, nontender. Bowel sounds are heard. No organomegaly noted. EXTREMITIES: 2+ peripheral pulses with no evidence of peripheral edema and no calf tenderness noted. NEUROLOGIC patient is awake, alert and oriented -3. . - Labs CBC & Chem 7: 07/17/16 17:30 07/17/16 17:30 Assessment and Plan (1) Syncope Status: Acute (2) Orthostatic hypotension Status: Acute (3) Pacemaker Status: Acute (4) Hypothyroid Status: Acute (5) Paroxysmal a-fib Status: Acute Plan: From cardiology's perspective, we will recommend to continue the patient off of beta farshad and off of sotalol. Continue Lanoxin and flecainide. We have also requested bilateral knee-high STEPHANIA hose stockings. DNP note has been reviewed, I agree with a documented findings and plan of care. Patient was seen and examined.
[2016-07-20 15:50] VITALS: PULSE 85; RESP 20
[2016-07-20 15:53] VITALS: BP 128/74; TEMP 97.6
--- NOTE | 2016-07-21 09:26 | DS ---
DATE OF ADMISSION: 07/17/2016 DATE OF DISCHARGE: 07/20/2016 FINAL DIAGNOSES: 1. Significant orthostatic hypotension from antiarrhythmics. 2. Paroxysmal atrial fibrillation with rapid ventricular rate with permanent pacemaker implantation for tachybrady syndrome at [facility]. 3. Peptic ulcer disease. 4. Chronic esophagitis. 5. Essential hypertension. 6. Primary osteoarthritis multiple joints, bilateral. 7. Depression, not otherwise specified. 8. Hyperthyroidism from overreplacement. Patient's Synthroid was actually discontinued. 9. Blunt injury to lower back, no evidence of fracture. CONSULTATIONS: Dr. Hernandez from electrophysiology; Dr. Sumit Singleton from cardiology; Dr. Hernandez from orthopedics. HOSPITAL COURSE: This a patient with long history of atrial flutter fibrillation, had tachybrady syndrome at [facility] got a pacemaker. Patient recently had a esophageal dilatation carried out. Patient was on flecainide and metoprolol that was discontinued 5 days prior to admission and started on sotalol. Patient was found to be orthostatic. Seen by Dr. Hernandez, put on the current medications. The patient did not see any further orthostatic, has a paced rhythm. The patient's x-ray of the lumbar spine did not show any fracture. Head and cervical spine no fracture. Patient is able to walk around in the hallway without any further dizziness, except when she does it really quickly. No fracture. On examination, lungs are clear. CARDIOVASCULAR: First and second sounds normal. No edema. DISCHARGE MEDICATIONS: 1. Neurontin 300 mg p.o. t.i.d. 2. Magnesium gluconate 500 mg p.o. daily. 3. Potassium 10 mEq daily. 4. Imitrex 50 mg p.o. b.i.d. p.r.n. 5. Omeprazole 20 mg b.i.d. 6. Tylenol 650 mg q.6 p.r.n. 7. Eliquis 5 mg p.o. b.i.d. 8. Cymbalta 60 mg p.o. daily. 9. Lasix 40 mg daily p.r.n. 10. Carafate 1 gram p.o. q.6. 11. Digoxin 250 mcg p.o. daily. 12. Flecainide 50 mg p.o. t.i.d. 13. Vass 5 one tablet q.6 p.r.n. Follow up with Dr. Hernandez in one week; Dr. Heber Hernandez on 08/01/16; Dr. Wray in one week. ACTIVITY: Patient encouraged to walk multiple times daily. BMP in 5 days. Care was discussed in detail with the patient. Discharge planning more than 35 minutes.
== END 2016-07-20 19:21 | disposition home or self-care (01) | DRG 312 ==
LOC: EC 17:08 → 6SEL 20:12
PROVIDERS: ADMIT Hospitalist; ATTEND Hospitalist
DX: I95.2 Hypotension due to drugs (principal); I49.5 Sick sinus syndrome; I48.0 Paroxysmal atrial fibrillation; I48.92 Unspecified atrial flutter; K27.9 Peptic ulcer, site unspecified, unspecified as acute or chronic, without hemorrhage or perforation; I10 Essential (primary) hypertension; R13.10 Dysphagia, unspecified; I25.10 Atherosclerotic heart disease of native coronary artery without angina pectoris; I25.2 Old myocardial infarction; G89.29 Other chronic pain; S00.93XA Contusion of unspecified part of head, initial encounter; K21.0 Gastro-esophageal reflux disease with esophagitis; T46.2X5A Adverse effect of other antidysrhythmic drugs, initial encounter; K59.00 Constipation, unspecified; F41.0 Panic disorder [episodic paroxysmal anxiety]; F41.9 Anxiety disorder, unspecified; M19.91 Primary osteoarthritis, unspecified site; R29.6 Repeated falls; M47.816 Spondylosis without myelopathy or radiculopathy, lumbar region; M25.562 Pain in left knee; R26.9 Unspecified abnormalities of gait and mobility; F32.9 Major depressive disorder, single episode, unspecified; M79.7 Fibromyalgia; R51 Headache; R53.1 Weakness; M47.812 Spondylosis without myelopathy or radiculopathy, cervical region; M25.519 Pain in unspecified shoulder; M81.0 Age-related osteoporosis without current pathological fracture; E05.90 Thyrotoxicosis, unspecified without thyrotoxic crisis or storm; E03.9 Hypothyroidism, unspecified; K22.4 Dyskinesia of esophagus; M62.50 Muscle wasting and atrophy, not elsewhere classified, unspecified site; M85.88 Other specified disorders of bone density and structure, other site; Z98.890 Other specified postprocedural states; Z90.710 Acquired absence of both cervix and uterus; Z88.6 Allergy status to analgesic agent; Z88.2 Allergy status to sulfonamides; Z91.81 History of falling; Z95.0 Presence of cardiac pacemaker; Z79.899 Other long term (current) drug therapy; Z79.82 Long term (current) use of aspirin; Z79.01 Long term (current) use of anticoagulants; Z82.5 Family history of asthma and other chronic lower respiratory diseases; Z88.8 Allergy status to other drugs, medicaments and biological substances; Z87.81 Personal history of (healed) traumatic fracture; Z86.19 Personal history of other infectious and parasitic diseases; Z87.828 Personal history of other (healed) physical injury and trauma; Z87.19 Personal history of other diseases of the digestive system; Z80.9 Family history of malignant neoplasm, unspecified; Z82.61 Family history of arthritis; Z90.49 Acquired absence of other specified parts of digestive tract; W01.10XA Fall on same level from slipping, tripping and stumbling with subsequent striking against unspecified object, initial encounter; Y93.9 Activity, unspecified; Y92.000 Kitchen of unspecified non-institutional (private) residence as the place of occurrence of the external cause
CPT/HCPCS: 36415; 70450; 72100; 72125; 80053; 82533; 82550; 82553; 83735; 84439; 84443; 84484; 85025; 85610; 85730; 93005; 93306; 94760; 96374; 96376; 99285

== ENCOUNTER 2016-08-16 12:46 | Emergency (ER) | payer MEDICARE, OTHER ==
[2016-08-16] MEDS ORDERED: SODIUM CHLORIDE 0.9% 1,000 ML IV STA (13:10)
[2016-08-16] MEDS ORDERED: SODIUM CHLORIDE 0.9% 500 ML IV STA (13:10)
[2016-08-16] MEDS ORDERED: DILTIAZEM 5 MG/ML 5 ML VIAL IVP STA ×2 (13:13→15:37)
[2016-08-16] MEDS ORDERED: DILTIAZEM 125 MG in SODIUM CHLORIDE 0.9% 100 ML IV ONE (13:13)
--- NOTE | 2016-08-16 13:15 | ED ---
General Adult HPI - General Chief complaint: Arrhythmia/Palpitations Stated complaint: fluid retention/vomiting Time Seen by Provider: 08/16/16 13:10 Source: patient, RN notes reviewed, old records reviewed Mode of arrival: wheelchair Limitations: no limitations - History of Present Illness Initial comments: This is a 70-year-old female ER for evaluation. This patient presents today for evaluation of atrial flutter, r Patient has history of atrial fib, recently a pacemaker placement. Patient denies chest pain but it is increased swelling all over body, face is and legs. Patient denies any other new medications. Note fevers cough or congestion. Drug abuse - Related Data Home Medications Medication Instructions Recorded Confirmed Gabapentin [Neurontin] 300 mg PO TID 02/15/16 08/16/16 Magnesium Gluconate [Magonate] 500 mg PO DAILY 02/15/16 08/16/16 Potassium Chloride ER [K-Dur 10] 10 meq PO DAILY 02/15/16 08/16/16 SUMAtriptan SUCCINATE [Imitrex] 50 mg PO BID PRN 02/15/16 08/16/16 Omeprazole 20 mg PO BID 03/22/16 08/16/16 Acetaminophen [Tylenol] 650 mg PO Q6H PRN 07/17/16 08/16/16 Apixaban [Eliquis] 5 mg PO BID 07/17/16 08/16/16 Furosemide [Lasix] 40 mg PO DAILY PRN 07/17/16 08/16/16 Sucralfate [Carafate] 1 gm PO Q6H 07/17/16 08/16/16 Aspirin EC [Ecotrin Low Dose] 81 mg PO DAILY 08/16/16 08/16/16 Previous Rx's Medication Instructions Recorded Flecainide [Tambocor] 50 mg PO TID #90 tab 07/20/16 Allergies Allergy/AdvReac Type Severity Reaction Status Date / Time adhesive Allergy RASH FROM Verified 08/16/16 14:28 EKG STICKERS celecoxib [From Celebrex] Allergy Rash/Hives Verified 08/16/16 14:28 sertraline HCl [From Zoloft] Allergy Rash/Hives Verified 08/16/16 14:28 sulfamethoxazole Allergy Anaphylaxis Verified 08/16/16 14:28 [From Bactrim] trimethoprim [From Bactrim] Allergy Anaphylaxis Verified 08/16/16 14:28 Review of Systems ROS Statement: Those systems with pertinent positive or pertinent negative responses have been documented in the HPI. ROS Other: All systems not noted in ROS Statement are negative. Past Medical History Past Medical History: Atrial Fibrillation, Coronary Artery Disease (CAD), Chest Pain / Angina, Fibromyalgia, GERD/Reflux, Hypertension, Myocardial Infarction ( non Q-wave), Osteoarthritis (OA), Thyroid Disorder Additional Past Medical History / Comment(s): 07/13/16 discharged from [facility] FOR C/O SYNCPOPAL EPISODES-OTHER PAST MEDICAL HX INCLUDES: back and shoulder pain,osteoporosis. L4 FX (2012 D/T FALL). RHEUMATIC FEVER. 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 DILATATION OF ESOPHAGUS, pacemaker placed 07/07 Past Anesthesia/Blood Transfusion Reactions: Motion Sickness, Postoperative Nausea & Vomiting (PONV) Type of Cardiac Device: Permanent Pacemaker Device Placement Date:: 06/2016 Past Psychological History: Anxiety, Depression Additional Psychological History / Comment(s): PANIC ATTACK Smoking Status: Never smoker Past Alcohol Use History: None Reported Past Drug Use History: None Reported - Past Family History Brother(s) Family Medical History: Cancer Father Family Medical History: COPD, Pneumonia Additional Family Medical History / Comment(s): emphysema Mother Family Medical History: Rheumatoid Arthritis (RA) Additional Family Medical History / Comment(s): smoked, emphysema, ostoeporosis. General Exam Limitations: no limitations General appearance: anxious Head exam: Present: atraumatic, normocephalic, normal inspection Eye exam: Present: normal appearance, PERRL, EOMI. Absent: scleral icterus, conjunctival injection, periorbital swelling ENT exam: Present: normal exam, mucous membranes moist Neck exam: Present: normal inspection. Absent: tenderness, meningismus, lymphadenopathy Respiratory exam: Present: normal lung sounds bilaterally. Absent: respiratory distress, wheezes, rales, rhonchi, stridor Cardiovascular Exam: Present: tachycardia, irregular rhythm, normal heart sounds. Absent: systolic murmur, diastolic murmur, rubs, gallop, clicks GI/Abdominal exam: Present: soft, normal bowel sounds. Absent: distended, tenderness, guarding, rebound, rigid Extremities exam: Present: normal inspection, full ROM, normal capillary refill. Absent: tenderness, pedal edema, joint swelling, calf tenderness Back exam: Present: normal inspection Neurological exam: Present: alert, oriented X3, CN II-XII intact Psychiatric exam: Present: normal affect, normal mood Skin exam: Present: warm, dry, intact, normal color. Absent: rash Course Vital Signs 08/16/16 08/16/16 08/16/16 13:02 14:05 14:15 Temperature 98.3 F Pulse Rate 132 H 123 H 108 H Respiratory 26 H 20 20 Rate Blood Pressure 142/91 150/94 146/85 O2 Sat by Pulse 98 99 95 Oximetry - Reevaluation(s) Reevaluation #1: 08/16/16 15:20 Patient remaining persistently tachycardic in A. fib EKG Findings - EKG Comments: EKG Findings:: EKG shows atrial fibrillation rate of 131, QRS 112, QTC 431. Medical Decision Making - Medical Decision Making 62 female in the ER with chest pain and A. fib with RVR. Patient will be admitted for cardiology evaluation and treatment, recent pacemaker placement - Lab Data Result diagrams: 08/16/16 13:20 08/16/16 13:20 Lab Results 08/16/16 08/16/16 08/16/16 Range/Units 13:20 13:20 13:20 WBC 8.9 (3.8-10.6) k/uL RBC 4.01 (3.80-5.40) m/uL Hgb 11.7 (11.4-16.0) gm/dL Hct 37.4 (34.0-46.0) % MCV 93.3 (80.0-100.0) fL MCH 29.3 (25.0-35.0) pg MCHC 31.4 (31.0-37.0) g/dL RDW 14.5 (11.5-15.5) % Plt Count 328 (150-450) k/uL Neutrophils % 71 % Lymphocytes % 18 % Monocytes % 5 % Eosinophils % 4 % Basophils % 1 % Neutrophils # 6.3 (1.3-7.7) k/uL Lymphocytes # 1.6 (1.0-4.8) k/uL Monocytes # 0.4 (0-1.0) k/uL Eosinophils # 0.3 (0-0.7) k/uL Basophils # 0.1 (0-0.2) k/uL PT (9.0-12.0) sec INR (<1.1) APTT (22.0-30.0) sec Sodium 142 (137-145) mmol/L Potassium 3.4 L (3.5-5.1) mmol/L Chloride 100 (98-107) mmol/L Carbon Dioxide 29 (22-30) mmol/L Anion Gap 13 mmol/L BUN 14 (7-17) mg/dL Creatinine 1.06 H (0.52-1.04) mg/dL Est GFR (MDRD) Af Amer >60 (>60 ml/min/1.73 sqM) Est GFR (MDRD) Non-Af 52 (>60 ml/min/1.73 sqM) Glucose 103 H (74-99) mg/dL Calcium 9.8 (8.4-10.2) mg/dL Phosphorus 3.7 (2.5-4.5) mg/dL Magnesium 2.1 (1.6-2.3) mg/dL Total Bilirubin 0.6 (0.2-1.3) mg/dL AST 32 (14-36) U/L ALT 29 (9-52) U/L Alkaline Phosphatase 149 H (38-126) U/L Total Creatine Kinase 145 H (30-135) U/L CK-MB (CK-2) 1.7 (0.0-2.4) ng/mL CK-MB (CK-2) Rel Index 1.2 Troponin I <0.012 (0.000-0.034) ng/mL Total Protein 8.0 (6.3-8.2) g/dL Albumin 4.3 (3.5-5.0) g/dL TSH 14.800 H (0.465-4.680) mIU/L 08/16/16 Range/Units 13:20 WBC (3.8-10.6) k/uL RBC (3.80-5.40) m/uL Hgb (11.4-16.0) gm/dL Hct (34.0-46.0) % MCV (80.0-100.0) fL MCH (25.0-35.0) pg MCHC (31.0-37.0) g/dL RDW (11.5-15.5) % Plt Count (150-450) k/uL Neutrophils % % Lymphocytes % % Monocytes % % Eosinophils % % Basophils % % Neutrophils # (1.3-7.7) k/uL Lymphocytes # (1.0-4.8) k/uL Monocytes # (0-1.0) k/uL Eosinophils # (0-0.7) k/uL Basophils # (0-0.2) k/uL PT 10.7 (9.0-12.0) sec INR 1.1 (<1.1) APTT 24.9 (22.0-30.0) sec Sodium (137-145) mmol/L Potassium (3.5-5.1) mmol/L Chloride (98-107) mmol/L Carbon Dioxide (22-30) mmol/L Anion Gap mmol/L BUN (7-17) mg/dL Creatinine (0.52-1.04) mg/dL Est GFR (MDRD) Af Amer (>60 ml/min/1.73 sqM) Est GFR (MDRD) Non-Af (>60 ml/min/1.73 sqM) Glucose (74-99) mg/dL Calcium (8.4-10.2) mg/dL Phosphorus (2.5-4.5) mg/dL Magnesium (1.6-2.3) mg/dL Total Bilirubin (0.2-1.3) mg/dL AST (14-36) U/L ALT (9-52) U/L Alkaline Phosphatase (38-126) U/L Total Creatine Kinase (30-135) U/L CK-MB (CK-2) (0.0-2.4) ng/mL CK-MB (CK-2) Rel Index Troponin I (0.000-0.034) ng/mL Total Protein (6.3-8.2) g/dL Albumin (3.5-5.0) g/dL TSH (0.465-4.680) mIU/L - Radiology Data Radiology results: report reviewed (Chest x-ray is negative for acute disease), image reviewed Critical Care Time Critical Care Time: Yes Total Critical Care Time: 31 Disposition Clinical Impression: Atrial fibrillation with RVR, Chest pain at rest, Chronic back pain Disposition: ADMITTED IP TO THIS [facility] Condition: Fair Referrals: Elroy Wray DO [Primary Care Provider] - 1-2 days
[2016-08-16 13:30] LABS: Basophils # (A) 0.1 k/uL (0-0.2); Basophils % (A) 1 %; CH 29.7; CHCM 31.9; Eosinophils # (A) 0.3 k/uL (0-0.7); Eosinophils % (A) 4 %; HCT 37.4 % (34.0-46.0); HDW 2.62; HGB 11.7 gm/dL (11.4-16.0); Luc % (Auto) 2; Lymphocytes # (A) 1.6 k/uL (1.0-4.8); Lymphocytes % (A) 18 %; MCH 29.3 pg (25.0-35.0); MCHC 31.4 g/dL (31.0-37.0); MCV 93.3 fL (80.0-100.0); Monocytes # (A) 0.4 k/uL (0-1.0); Monocytes % (A) 5 %; Neutrophils # (A) 6.3 k/uL (1.3-7.7); Neutrophils % (A) 71 %; RBC 4.01 m/uL (3.80-5.40); RDW 14.5 % (11.5-15.5); WBC 8.9 k/uL (3.8-10.6); WBC (Perox) 9.25
[2016-08-16 13:42] LABS: INR 1.1 (<1.1); Partial Thromboplastin Time 24.9 sec (22.0-30.0); Prothrombin Time 10.7 sec (9.0-12.0)
[2016-08-16] MEDS ORDERED: MORPHINE SULFATE 4 MG/ML SYRINGE IVP STA (14:01)
[2016-08-16 14:02] LABS: ALT 29 U/L (9-52); AST 32 U/L (14-36); Alkaline Phosphatase 149 U/L (38-126); Anion Gap 13 mmol/L; Blood Urea Nitrogen 14 mg/dL (7-17); Calcium 9.8 mg/dL (8.4-10.2); Carbon Dioxide 29 mmol/L (22-30); Chloride 100 mmol/L (98-107); Glucose 103 mg/dL (74-99); Magnesium 2.1 mg/dL (1.6-2.3); Non-African American GFR(MDRD) 52 (>60 ml/min/1.73 sqM); Phosphorous 3.7 mg/dL (2.5-4.5); Potassium 3.4 mmol/L (3.5-5.1); Sodium 142 mmol/L (137-145); Total Bilirubin 0.6 mg/dL (0.2-1.3)
[2016-08-16 14:05] LABS: Creatine Kinase 145 U/L (30-135)
[2016-08-16 14:18] LABS: Creatine Kinase MB 1.7 ng/mL (0.0-2.4); Troponin I <0.012 ng/mL (0.000-0.034)
--- NOTE | 2016-08-16 14:55 | XR ---
EXAMINATION TYPE: XR chest 2V DATE OF EXAM: 08/16/2016 2:46 PM COMPARISON: 03/22/16 HISTORY: Shortness of breath TECHNIQUE: Frontal and lateral views of the chest are obtained. FINDINGS: Scattered senescent parenchymal changes noted. Hyperinflation compatible with COPD. No evidence for infiltrate. No evidence for atelectasis. Heart size is stable. Mediastinal structures are stable and grossly unremarkable. No evidence for hilar prominence. Degenerative changes dorsal spine. IMPRESSION: 1. No evidence for acute pulmonary disease.
[2016-08-16] MEDS ORDERED: ASPIRIN 81 MG CHEW PO STA (15:17)
[2016-08-16] MEDS ORDERED: NITROGLYCERIN SL TABS 0.4 MG TAB SUBLINGUAL PRN (15:17)
[2016-08-16] MEDS ORDERED: HYDROmorphone 1 MG/ML 1 ML SYRINGE IVP PRN (15:19)
[2016-08-16] MEDS ORDERED: HYDROmorphone 1 MG/ML 1 ML SYRINGE IVP STA (15:19)
[2016-08-16] MEDS ORDERED: ONDANSETRON 4 MG/2 ML VIAL IVP PRN (15:22)
[2016-08-16] MEDS ORDERED: ONDANSETRON 4 MG/2 ML VIAL IVP STA (15:22)
[2016-08-16] MEDS ORDERED: SODIUM CHLORIDE 0.9% 1,000 ML IV SCH (15:30)
[2016-08-16] MEDS ORDERED: POTASSIUM CHLORIDE ER 20 MEQ TAB.ER PO STA (15:32)
[2016-08-16] MEDS ORDERED: METOPROLOL TARTRATE 5 MG/5 ML VIAL IVP STA (15:34)
[2016-08-16 16:53] VITALS: BP 127/80; PULSE 129; RESP 15; TEMP 97.5
[2016-08-17] MEDS ORDERED: ASPIRIN 325 MG TAB PO SCH (09:00)
== END 2016-08-16 17:30 | disposition other institution (70) ==
LOC: EC 12:46
DX: I48.0 Paroxysmal atrial fibrillation (principal); R07.9 Chest pain, unspecified; M54.9 Dorsalgia, unspecified; G89.29 Other chronic pain; R11.10 Vomiting, unspecified; I89.0 Lymphedema, not elsewhere classified; I25.10 Atherosclerotic heart disease of native coronary artery without angina pectoris; K21.9 Gastro-esophageal reflux disease without esophagitis; M79.7 Fibromyalgia; I25.2 Old myocardial infarction; Z79.82 Long term (current) use of aspirin; Z79.01 Long term (current) use of anticoagulants; Z79.899 Other long term (current) drug therapy; Z91.048 Other nonmedicinal substance allergy status; Z88.2 Allergy status to sulfonamides; Z88.8 Allergy status to other drugs, medicaments and biological substances; Z87.19 Personal history of other diseases of the digestive system; Z95.0 Presence of cardiac pacemaker
CPT/HCPCS: 99291; 96365; 96366; 96375 ×3; 96361; 36415; 93005; 80053; 82550; 82553; 83735; 84100; 84443; 84484; 85025; 85610; 85730; 71020; J2270; J2405; J1170

== ENCOUNTER 2016-08-17 10:57 | Inpatient (IN) | payer MEDICARE, OTHER ==
[2016-08-17] MEDS ORDERED: SODIUM CHLORIDE 0.9% 1,000 ML IV STA (11:05)
[2016-08-17] MEDS ORDERED: DILTIAZEM 5 MG/ML 5 ML VIAL IVP STA ×2 (11:05→11:46)
[2016-08-17] MEDS ORDERED: HYDROmorphone 1 MG/ML 1 ML SYRINGE IVP STA (11:05)
[2016-08-17] MEDS ORDERED: SODIUM CHLORIDE 0.9% 500 ML IV STA (11:05)
[2016-08-17] MEDS ORDERED: HYDROmorphone 2 MG/ML 1 ML SYRINGE IVP STA (11:07)
[2016-08-17] MEDS ORDERED: PANTOPRAZOLE 40 MG/10 ML VIAL IVP STA (11:09)
[2016-08-17] MEDS ORDERED: ONDANSETRON 4 MG/2 ML VIAL IVP STA (11:09)
--- NOTE | 2016-08-17 11:15 | ED ---
Chest Pain HPI - General Source: patient, EMS, RN notes reviewed Mode of arrival: EMS Limitations: no limitations <David Brown - Last Filed: 08/17/16 12:45> <Bakari Bradford - Last Filed: 08/17/16 13:12> - General Chief Complaint: Chest Pain Stated Complaint: Tachycardia Time Seen by Provider: 08/17/16 11:00 - History of Present Illness Initial Comments: This a 70-year-old female presents emergency Department with multiple complaints including chest pressure, nausea vomiting or back pain. Patient states that she was seen in emergency department yesterday for similar symptoms. Patient states she's been vomiting all month long complaint of low back pain which is chronic in nature. She states that she's had prior lumbar fracture. Patient states that she was feeling better when she left the hospital yesterday but states symptoms worsen at nighttime. Patient has the same chest pain and she had yesterday were normal heart enzymes. Patient states child primary care physician advises go to the emergency department again today. Patient states she had a pacemaker placed one month ago at [facility] after having a bout of tachycardia when she was having a procedure done there. Patient states burn care physician Dr. Wray and landfill gas technician is Dr. mike stanton. Patient states she is diffuse abdominal tenderness from vomiting. Patient states it just pressures centralize region nonradiating. Denies any diaphoresis. Patient has history of A. fib, hypertension, fibromyalgia, IA. ( David Brown) - Related Data Home Medications Medication Instructions Recorded Confirmed Gabapentin [Neurontin] 300 mg PO TID 02/15/16 08/17/16 Magnesium Gluconate [Magonate] 500 mg PO DAILY 02/15/16 08/17/16 Potassium Chloride ER [K-Dur 10] 10 meq PO DAILY 02/15/16 08/17/16 SUMAtriptan SUCCINATE [Imitrex] 50 mg PO BID PRN 02/15/16 08/17/16 Omeprazole 20 mg PO BID 03/22/16 08/17/16 Acetaminophen [Tylenol] 650 mg PO Q6H PRN 07/17/16 08/17/16 Apixaban [Eliquis] 5 mg PO BID 07/17/16 08/17/16 Furosemide [Lasix] 40 mg PO DAILY PRN 07/17/16 08/17/16 Sucralfate [Carafate] 1 gm PO Q6H 07/17/16 08/17/16 Aspirin EC [Ecotrin Low Dose] 81 mg PO DAILY 08/16/16 08/17/16 Previous Rx's Medication Instructions Recorded Flecainide [Tambocor] 50 mg PO TID #90 tab 07/20/16 Allergies Allergy/AdvReac Type Severity Reaction Status Date / Time adhesive Allergy RASH FROM Verified 08/17/16 11:33 EKG STICKERS celecoxib [From Celebrex] Allergy Rash/Hives Verified 08/17/16 11:33 sertraline HCl [From Zoloft] Allergy Rash/Hives Verified 08/17/16 11:33 sulfamethoxazole Allergy Anaphylaxis Verified 08/17/16 11:33 [From Bactrim] trimethoprim [From Bactrim] Allergy Anaphylaxis Verified 08/17/16 11:33 Review of Systems ROS Other: All systems not noted in ROS Statement are negative. <David Brown - Last Filed: 08/17/16 12:45> ROS Other: All systems not noted in ROS Statement are negative. <Bakari Bradford - Last Filed: 08/17/16 13:12> ROS Statement: Those systems with pertinent positive or pertinent negative responses have been documented in the HPI. EKG Findings - EKG Comments: EKG Findings:: EKG performed at 11:01. A. flutter rate of 132 QRS duration 86, QT/QTc 160/248 <David Brown - Last Filed: 08/17/16 12:45> Past Medical History Past Medical History: Atrial Fibrillation, Coronary Artery Disease (CAD), Chest Pain / Angina, Fibromyalgia, GERD/Reflux, Hypertension, Myocardial Infarction ( non Q-wave), Osteoarthritis (OA), Thyroid Disorder Additional Past Medical History / Comment(s): 07/13/16 discharged from [facility] FOR C/O SYNCPOPAL EPISODES-OTHER PAST MEDICAL HX INCLUDES: back and shoulder pain,osteoporosis. L4 FX (2012 D/T FALL). RHEUMATIC FEVER. 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 DILATATION OF ESOPHAGUS, pacemaker placed 07/07 Past Anesthesia/Blood Transfusion Reactions: Motion Sickness, Postoperative Nausea & Vomiting (PONV) Type of Cardiac Device: Permanent Pacemaker Device Placement Date:: 06/2016 Past Psychological History: Anxiety, Depression Additional Psychological History / Comment(s): PANIC ATTACK Smoking Status: Never smoker Past Alcohol Use History: None Reported Past Drug Use History: None Reported - Past Family History Brother(s) Family Medical History: Cancer Father Family Medical History: COPD, Pneumonia Additional Family Medical History / Comment(s): emphysema Mother Family Medical History: Rheumatoid Arthritis (RA) Additional Family Medical History / Comment(s): smoked, emphysema, ostoeporosis. <David Brown M - Last Filed: 08/17/16 12:45> General Exam Limitations: no limitations General appearance: alert, in no apparent distress Respiratory exam: Present: normal lung sounds bilaterally. Absent: respiratory distress, wheezes, rales, rhonchi, stridor Cardiovascular Exam: Present: tachycardia, irregular rhythm, normal heart sounds. Absent: regular rate, normal rhythm, systolic murmur, diastolic murmur , rubs, gallop, clicks GI/Abdominal exam: Present: soft, tenderness (Mild diffuse), normal bowel sounds. Absent: distended, guarding, rebound, rigid Back exam: Present: full ROM, tenderness (Mild lumbar) Neurological exam: Present: alert, oriented X3, CN II-XII intact Skin exam: Present: warm, dry, intact, normal color. Absent: rash <David Brown - Last Filed: 08/17/16 12:45> General appearance: alert, in no apparent distress, anxious Head exam: Present: atraumatic, normocephalic, normal inspection Eye exam: Present: normal appearance, PERRL, EOMI. Absent: scleral icterus, conjunctival injection, periorbital swelling ENT exam: Present: normal exam, mucous membranes moist Neck exam: Present: normal inspection. Absent: tenderness, meningismus, lymphadenopathy Respiratory exam: Present: normal lung sounds bilaterally. Absent: respiratory distress, wheezes, rales, rhonchi, stridor Cardiovascular Exam: Present: tachycardia, irregular rhythm, normal heart sounds. Absent: systolic murmur, diastolic murmur, rubs, gallop, clicks GI/Abdominal exam: Present: soft, normal bowel sounds. Absent: distended, tenderness, guarding, rebound, rigid Extremities exam: Present: normal inspection, full ROM, normal capillary refill. Absent: tenderness, pedal edema, joint swelling, calf tenderness Back exam: Present: normal inspection Neurological exam: Present: alert, oriented X3, CN II-XII intact Psychiatric exam: Present: normal affect, normal mood Skin exam: Present: warm, dry, intact, normal color. Absent: rash <Bakari Bradford - Last Filed: 08/17/16 13:12> Course <David Brown - Last Filed: 08/17/16 12:45> <Bakari Bradford - Last Filed: 08/17/16 13:12> Vital Signs 08/17/16 08/17/16 08/17/16 10:59 11:12 11:59 Temperature 97.7 F Pulse Rate 131 H 132 H Pulse Rate [ 126 H Section Gang Worker ] Respiratory 16 18 Rate Blood Pressure 142/98 137/80 O2 Sat by Pulse 97 95 Oximetry 08/17/16 12:41 Temperature Pulse Rate 109 H Pulse Rate [ Section Gang Worker ] Respiratory 18 Rate Blood Pressure 133/92 O2 Sat by Pulse 98 Oximetry - Reevaluation(s) Reevaluation #1: 08/17/16 13:11 Patient still having uncontrolled A. fib with RVR (Bakari Bradford) Chest Pain MDM <David Brown - Last Filed: 08/17/16 12:45> <Bakari Bradford - Last Filed: 08/17/16 13:12> - MDM 70-year-old female presented for chest pain, nausea vomiting or tachycardia. Patient has been persist the tachycardic minimal response with Cardizem. Patient most likely is having failed pacemaker. Patient will be transferred to [facility] as Dr. Hein cardiologists they're placed her pacemaker. Patient up -to-date on results and agrees this plan. Patient be given additional medications for nausea vomiting and pain. Case discussed with [facility] who accepts transfer. (David Brown) 62 female ER for evaluation, patient will notice hospital in the hospital for difficult to control A. fib with RVR, patient's EP physician is out of [facility], patient be transferred to [facility] transferred for evaluation. ( Bakari Bradford) Critical Care Time Critical Care Time: Yes Total Critical Care Time: 31 <Bakari Bradford - Last Filed: 08/17/16 13:12> Disposition Time of Disposition: 12:38 <David Brown - Last Filed: 08/17/16 12:45> - Out of Hospital Transfer - Req. Specs Out of Hospital Transfer - Requested Specifics: Other Emergency Center ([facility]) <Bakari Bradford - Last Filed: 08/17/16 13:12> Clinical Impression: Atrial fibrillation with RVR, Chronic back pain, Nausea & vomiting Disposition: OTHER INSTITUTION NOT DEFINED Condition: Stable Referrals: Elroy Wray DO [Primary Care Provider] - 1-2 days
[2016-08-17 11:34] LABS: Basophils # (A) 0.1 k/uL (0-0.2); Basophils % (A) 1 %; CH 29.1; CHCM 31.2; Eosinophils # (A) 0.1 k/uL (0-0.7); Eosinophils % (A) 2 %; HDW 2.56; HGB 10.7 gm/dL (11.4-16.0); Hypochromasia Slight; Luc # (Auto) 0.22; Luc % (Auto) 3; Lymphocytes # (A) 1.6 k/uL (1.0-4.8); Lymphocytes % (A) 18 %; MCH 29.5 pg (25.0-35.0); MCHC 31.6 g/dL (31.0-37.0); MCV 93.5 fL (80.0-100.0); Mean Platelet Volume 7.2; Monocytes # (A) 0.4 k/uL (0-1.0); Monocytes % (A) 5 %; Neutrophils # (A) 6.2 k/uL (1.3-7.7); Neutrophils % (A) 72 %; RBC 3.64 m/uL (3.80-5.40); RDW 14.4 % (11.5-15.5); WBC 8.5 k/uL (3.8-10.6); WBC (Perox) 8.65
[2016-08-17 11:51] LABS: Calcium 9.4 mg/dL (8.4-10.2); Magnesium 2.2 mg/dL (1.6-2.3); Phosphorous 2.9 mg/dL (2.5-4.5); Potassium 3.6 mmol/L (3.5-5.1); Total Bilirubin 0.4 mg/dL (0.2-1.3); Total Protein 7.5 g/dL (6.3-8.2)
[2016-08-17 11:59] LABS: Creatine Kinase 256 U/L (30-135)
[2016-08-17] MEDS ORDERED: DILTIAZEM 125 MG in SODIUM CHLORIDE 0.9% 100 ML IV ONE (12:00)
--- NOTE | 2016-08-17 12:10 | XR ---
EXAMINATION TYPE: XR chest 2V DATE OF EXAM: 08/17/2016 12:07 PM COMPARISON: 08/16/2016 TECHNIQUE: PA and lateral views submitted. HISTORY: Weakness, elevated heart rate, vomiting FINDINGS: The lungs are clear and there is no pneumothorax, pleural effusion, or focal pneumonia. Cardiac dev ice noted. Hyperinflation suggests COPD. Biapical pleural thickening. Degenerative change of the spin e. Moderate wedge deformity within the upper thoracic spine. Diffuse osteopenia. IMPRESSION: 1. No acute process.
[2016-08-17 12:11] LABS: Creatine Kinase MB 3.1 ng/mL (0.0-2.4); Troponin I <0.012 ng/mL (0.000-0.034)
[2016-08-17 12:14] LABS: INR 1.1 (<1.1); Partial Thromboplastin Time 25.6 sec (22.0-30.0); Prothrombin Time 10.9 sec (9.0-12.0)
[2016-08-17] MEDS ORDERED: LORazepam 2 MG/ML SYRINGE IV STA (12:34)
[2016-08-17] MEDS ORDERED: diphenhydrAMINE 50 MG/ML 1 ML VIAL IVP STA (12:34)
[2016-08-17] MEDS ORDERED: POTASSIUM CHLORIDE ER 20 MEQ TAB.ER PO STA (12:59)
--- NOTE | 2016-08-17 13:30 | ED ---
Medical Decision Making - Medical Decision Making Dr. Bradford did discuss case with 's month. Patient will be admitted to Dr. Penn at this time. - Lab Data Result diagrams: 08/17/16 11:20 08/17/16 11:20 Lab Results 08/17/16 08/17/16 08/17/16 Range/Units 11:20 11:20 11:20 WBC 8.5 (3.8-10.6) k/uL RBC 3.64 L (3.80-5.40) m/uL Hgb 10.7 L (11.4-16.0) gm/dL Hct 34.0 (34.0-46.0) % MCV 93.5 (80.0-100.0) fL MCH 29.5 (25.0-35.0) pg MCHC 31.6 (31.0-37.0) g/dL RDW 14.4 (11.5-15.5) % Plt Count 309 (150-450) k/uL Neutrophils % 72 % Lymphocytes % 18 % Monocytes % 5 % Eosinophils % 2 % Basophils % 1 % Neutrophils # 6.2 (1.3-7.7) k/uL Lymphocytes # 1.6 (1.0-4.8) k/uL Monocytes # 0.4 (0-1.0) k/uL Eosinophils # 0.1 (0-0.7) k/uL Basophils # 0.1 (0-0.2) k/uL Hypochromasia Slight PT (9.0-12.0) sec INR (<1.1) APTT (22.0-30.0) sec Sodium 142 (137-145) mmol/L Potassium 3.6 (3.5-5.1) mmol/L Chloride 103 (98-107) mmol/L Carbon Dioxide 28 (22-30) mmol/L Anion Gap 11 mmol/L BUN 13 (7-17) mg/dL Creatinine 1.20 H (0.52-1.04) mg/dL Est GFR (MDRD) Af Amer 54 (>60 ml/min/1.73 sqM) Est GFR (MDRD) Non-Af 45 (>60 ml/min/1.73 sqM) Glucose 100 H (74-99) mg/dL Calcium 9.4 (8.4-10.2) mg/dL Phosphorus 2.9 (2.5-4.5) mg/dL Magnesium 2.2 (1.6-2.3) mg/dL Total Bilirubin 0.4 (0.2-1.3) mg/dL AST 32 (14-36) U/L ALT 26 (9-52) U/L Alkaline Phosphatase 137 H (38-126) U/L Total Creatine Kinase 256 H (30-135) U/L CK-MB (CK-2) 3.1 H* (0.0-2.4) ng/mL CK-MB (CK-2) Rel Index 1.2 Troponin I <0.012 (0.000-0.034) ng/mL NT-Pro-B Natriuret Pep pg/mL Total Protein 7.5 (6.3-8.2) g/dL Albumin 4.2 (3.5-5.0) g/dL 08/17/16 08/17/16 Range/Units 11:20 11:20 WBC (3.8-10.6) k/uL RBC (3.80-5.40) m/uL Hgb (11.4-16.0) gm/dL Hct (34.0-46.0) % MCV (80.0-100.0) fL MCH (25.0-35.0) pg MCHC (31.0-37.0) g/dL RDW (11.5-15.5) % Plt Count (150-450) k/uL Neutrophils % % Lymphocytes % % Monocytes % % Eosinophils % % Basophils % % Neutrophils # (1.3-7.7) k/uL Lymphocytes # (1.0-4.8) k/uL Monocytes # (0-1.0) k/uL Eosinophils # (0-0.7) k/uL Basophils # (0-0.2) k/uL Hypochromasia PT 10.9 (9.0-12.0) sec INR 1.1 (<1.1) APTT 25.6 (22.0-30.0) sec Sodium (137-145) mmol/L Potassium (3.5-5.1) mmol/L Chloride (98-107) mmol/L Carbon Dioxide (22-30) mmol/L Anion Gap mmol/L BUN (7-17) mg/dL Creatinine (0.52-1.04) mg/dL Est GFR (MDRD) Af Amer (>60 ml/min/1.73 sqM) Est GFR (MDRD) Non-Af (>60 ml/min/1.73 sqM) Glucose (74-99) mg/dL Calcium (8.4-10.2) mg/dL Phosphorus (2.5-4.5) mg/dL Magnesium (1.6-2.3) mg/dL Total Bilirubin (0.2-1.3) mg/dL AST (14-36) U/L ALT (9-52) U/L Alkaline Phosphatase (38-126) U/L Total Creatine Kinase (30-135) U/L CK-MB (CK-2) (0.0-2.4) ng/mL CK-MB (CK-2) Rel Index Troponin I (0.000-0.034) ng/mL NT-Pro-B Natriuret Pep 738 pg/mL Total Protein (6.3-8.2) g/dL Albumin (3.5-5.0) g/dL Disposition Clinical Impression: Atrial fibrillation with RVR, Chronic back pain, Nausea & vomiting Disposition: ADMITTED IP TO THIS HOSP Condition: Fair Referrals: Elroy Wray DO [Primary Care Provider] - 1-2 days
[2016-08-17] MEDS: SODIUM CHLORIDE 0.9% 1,000 ML IV SCH ×2 (13:54→22:27)
[2016-08-17 14:41] LABS: Appearance,Urine Clear (Clear); Bilirubin,Urine Negative (Negative); Glucose,Urine (UA) Negative (Negative); Ketones,Urine Negative (Negative); Leukocyte Esterase,Urine Negative (Negative); Nitrite,Urine Negative (Negative); Protein,Urine Trace (Negative); Specific Gravity,Urine 1.015 (1.001-1.035); UA Billing (MACRO vs. MICRO) CHEM; Urobilinogen,Urine <2.0 mg/dL (<2.0)
--- NOTE | 2016-08-17 14:53 | P.CRDCN ---
History of Present Illness Consult date: 08/17/16 History of present illness: This is a 70-year-old female with history of known atrial flutter and also permanent pacemaker implantation was seen in the emergency room yesterday with the Gregg calzada with RVR. Patient was advised to go to [facility] but patient refused and went home on medical therapy. Patient came back to the hospital again today with complaints of palpitations and she is found to be in atrial flutter with rapid ventricular response. Patient is initiated on IV Cardizem. Patient is also nauseated and got some antiemetic. Seems to be slightly sleepy and sluggish when I saw her. Most of the information is gathered from the chart and also from daughter. She denies any chest pain or shortness of breath. She does complain of palpitations. I'm going to add digoxin to Cardizem. Patient has history of postural hypotension and recurrent syncopes in the past. She was seen by Dr. Hernandez in the past and that is a plan for ablation. We'll reconsult him regarding the possibility. Review of Systems As per the old chart Past Medical History Past Medical History: Atrial Fibrillation, Coronary Artery Disease (CAD), Chest Pain / Angina, Fibromyalgia, GERD/Reflux, Hypertension, Myocardial Infarction ( non Q-wave), Osteoarthritis (OA), Thyroid Disorder Additional Past Medical History / Comment(s): 07/13/16 discharged from [facility] FOR C/O SYNCPOPAL EPISODES-OTHER PAST MEDICAL HX INCLUDES: back and shoulder pain,osteoporosis. L4 FX (2012 D/T FALL). RHEUMATIC FEVER. 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 DILATATION OF ESOPHAGUS, pacemaker placed 07/07 Past Anesthesia/Blood Transfusion Reactions: Motion Sickness, Postoperative Nausea & Vomiting (PONV) Type of Cardiac Device: Permanent Pacemaker Device Placement Date:: 06/2016 Past Psychological History: Anxiety, Depression Additional Psychological History / Comment(s): PANIC ATTACK Smoking Status: Never smoker Past Alcohol Use History: None Reported Past Drug Use History: None Reported - Past Family History Brother(s) Family Medical History: Cancer Father Family Medical History: COPD, Pneumonia Additional Family Medical History / Comment(s): emphysema Mother Family Medical History: Rheumatoid Arthritis (RA) Additional Family Medical History / Comment(s): smoked, emphysema, ostoeporosis. Medications and Allergies Home Medications Medication Instructions Recorded Confirmed Type Gabapentin [Neurontin] 300 mg PO TID 02/15/16 08/17/16 History Magnesium Gluconate [Magonate] 500 mg PO DAILY 02/15/16 08/17/16 History Potassium Chloride ER [K-Dur 10] 10 meq PO DAILY 02/15/16 08/17/16 History SUMAtriptan SUCCINATE [Imitrex] 50 mg PO BID PRN 02/15/16 08/17/16 History Omeprazole 20 mg PO BID 03/22/16 08/17/16 History Acetaminophen [Tylenol] 650 mg PO Q6H PRN 07/17/16 08/17/16 History Apixaban [Eliquis] 5 mg PO BID 07/17/16 08/17/16 History Furosemide [Lasix] 40 mg PO DAILY PRN 07/17/16 08/17/16 History Sucralfate [Carafate] 1 gm PO Q6H 07/17/16 08/17/16 History Aspirin EC [Ecotrin Low Dose] 81 mg PO DAILY 08/16/16 08/17/16 History Allergies Allergy/AdvReac Type Severity Reaction Status Date / Time adhesive Allergy RASH FROM Verified 08/17/16 11:33 EKG STICKERS celecoxib [From Celebrex] Allergy Rash/Hives Verified 08/17/16 11:33 sertraline HCl [From Zoloft] Allergy Rash/Hives Verified 08/17/16 11:33 sulfamethoxazole Allergy Anaphylaxis Verified 08/17/16 11:33 [From Bactrim] trimethoprim [From Bactrim] Allergy Anaphylaxis Verified 08/17/16 11:33 Physical Exam Vitals: Vital Signs Temp Pulse Resp BP Pulse Ox 08/17/16 13:55 97.6 F 111 H 16 106/70 98 GENERAL EXAM: Patient is sleepy but arousable and oriented and doesn't appear to be in any acute distress HEENT: Normocephalic. Normal reaction of pupils, equal size, normal range of extraocular motion. No erythema or exudates in the throat. NECK: No masses, no nuchal rigidity. CHEST: No chest wall deformity. LUNGS: Equal air entry with no crackles or wheeze. HEART: S1 and S2 normal with no audible mumurs or gallops. Regular rhythm, femorals equal on both sides.. ABDOMEN: No hepatosplenomegaly, normal bowel sounds, no guarding or rigidity. SKIN: No rashes CENTRAL NERVOUS SYSTEM: No focal deficits. EXTREMITIES: No cyanosis, clubbing or edema. Results 08/17/16 11:20 08/17/16 11:20 Current Medications Generic Name Dose Route Start Last Admin Trade Name Freq PRN Reason Stop Dose Admin Aspirin 325 mg 08/18/16 09:00 Aspirin PO DAILY INOCENCIO Diltiazem HCl 125 mg/ Sodium 125 mls @ 5 mls/hr 08/17/16 12:00 08/17/16 11:48 Chloride IV 08/18/16 11:59 5 mg/hr .Q24H ONE 5 mls/hr 5 MG/HR Administration Sodium Chloride 1,000 mls @ 100 mls/hr 08/17/16 13:30 08/17/16 13:54 Saline 0.9% IV 100 mls/hr .Q10H INOCENCIO Administration EKG Interpretations (text) Atrial flutter with rapid ventricle response Assessment and Plan (1) Atrial flutter with rapid ventricular response Status: Acute (2) Nausea & vomiting Status: Acute (3) CAD (coronary artery disease) Status: Acute (4) Dysphagia Status: Acute (5) GI bleeding Status: Acute Plan: Mrs. Marquez is a 70-year-old female who was admitted mainly with atrial flutter with rapid ventricular response. She does have history of coronary artery disease and permanent pacemaker implantation. She denies any chest pain or shortness of breath. She is nauseated. Patient is being treated with IV Cardizem. I'm going to add digoxin for rate control. We'll ask Dr. Hernandez to evaluate the patient for possible ablation
[2016-08-17 17:59] LABS: Creatine Kinase 263 U/L (30-135)
[2016-08-17 18:13] LABS: Creatine Kinase MB 3.4 ng/mL (0.0-2.4); Troponin I <0.012 ng/mL (0.000-0.034)
[2016-08-17] MEDS: DIGOXIN 250 MCG/ML 2 ML AMP IVP SCH ×2 (18:54→20:14)
[2016-08-17] MEDS ORDERED: ACETAMINOPHEN TAB 500 MG TAB PO PRN (19:07)
[2016-08-17 20:29] LABS: Glucose,Whole Blood 92 mg/dL (75-99)
[2016-08-17] MEDS: HYDROcodone/APAP 5-325MG 1 EACH TAB PO PRN (22:25)
[2016-08-18 00:12] LABS: Creatine Kinase 244 U/L (30-135)
[2016-08-18 00:25] LABS: Troponin I <0.012 ng/mL (0.000-0.034)
[2016-08-18 00:49] LABS: Creatine Kinase MB 3.3 ng/mL (0.0-2.4)
[2016-08-18] MEDS: PANTOPRAZOLE 40 MG TABLET PO SCH ×3 (01:21→19:51)
[2016-08-18] MEDS: GABAPENTIN 300 MG CAP PO SCH ×4 (01:21→19:52)
[2016-08-18] MEDS: SUCRALFATE 1 GM TAB PO SCH ×5 (01:21→19:51)
[2016-08-18] MEDS: APIXABAN 5 MG TAB PO SCH ×3 (01:22→19:52)
[2016-08-18 03:41] LABS: Cholesterol 267 mg/dL (<200); Triglycerides 88 mg/dL (<150)
[2016-08-18 03:48] LABS: HDL Cholesterol 146 mg/dL (40-60)
[2016-08-18] MEDS: HYDROcodone/APAP 5-325MG 1 EACH TAB PO PRN ×4 (04:49→21:30)
[2016-08-18] MEDS: SUMAtriptan SUCCINATE 50 MG TAB PO PRN ×2 (05:33→21:32)
[2016-08-18 05:55] LABS: Glucose,Whole Blood 110 mg/dL (75-99)
[2016-08-18] MEDS: SODIUM CHLORIDE 0.9% 1,000 ML IV SCH ×2 (07:53→12:01)
[2016-08-18] MEDS: ASPIRIN 81 MG CHEW PO SCH (07:53)
[2016-08-18] MEDS ORDERED: ASPIRIN 325 MG TAB PO SCH (09:00)
[2016-08-18] MEDS: DIGOXIN 250 MCG TAB PO SCH ×2 (09:44→12:21)
--- NOTE | 2016-08-18 11:10 | HP ---
DATE OF ADMISSION: 08/17/2016 PRESENTING COMPLAINT: Heart racing. HISTORY OF PRESENTING COMPLAINT: This is a very pleasant 70-year-old patient known to me from multiple previous admissions. Patient has a rather extensive medical history. Patient's chronic stable medical conditions include peptic ulcer disease, esophagitis, hypertension, osteoarthritis, depression, esophageal dysmotility from esophagitis. Patient in early part of June was at [facility]. Patient did have dilatation of the esophagus and patient also has a pacemaker placed. Patient recently started having some color vision problems and went and saw Dr. Wray who stopped patient's digoxin and patient is ( ) to the same. This was about 2 weeks ago. Patient started off with her heart racing, presented to the ER initially yesterday, was put on a Cardizem drip and later on sent home. Patient having more nausea, vomiting at home. Heart was uncontrolled. Came back to the ER after they talked to Dr. Penn. Patient has been put on a Cardizem drip and admitted. Patient still having some nausea. REVIEW OF SYSTEMS: CONSTITUTIONAL: Weak and tired. HEENT: None. RESPIRATORY: None. CARDIOVASCULAR: As above. GASTROINTESTINAL: Nausea, vomiting. GENITOURINARY: None. MUSCULOSKELETAL: Pain especially in the lower back. DERMATOLOGICAL: None. HEMATOLOGIC: None. LYMPHATIC: None. PSYCHIATRY: Anxiety. NEUROLOGICAL: Intermittent headaches. Past medical history of hypothyroid, fibromyalgia, hypertension, DJD, esophagitis with henri infection, esophageal stricture, anxiety, depression, paroxysmal atrial fibrillation, ileus, esophagitis, peptic ulcer disease. Past surgical history is esophageal dilatation, pacemaker placement, ORIF of the right lower arm, cardiac cath, appendectomy. SOCIAL HISTORY: No smoking, no alcohol. FAMILY HISTORY: Emphysema. Allergies to CELEBREX, ZOLOFT, BACTRIM. On examination, temperature 98.7, pulse 113, respirations 16, blood pressure 109/71, pulse ox 99% on 2 L. GENERAL APPEARANCE: Thin build, lying in bed, tired-appearing. EYES: Pupils equal, conjunctivae are pale. HEENT: Oral cavity normal. NECK: JVD not raised. Mass not palpable. Respiratory effort normal. LUNGS: Fair air entry. CARDIOVASCULAR: Heart sounds irregular, mild edema. ABDOMEN: Soft, nontender. Liver and spleen not palpable. LYMPHATIC: No lymph node palpable in neck or axillae. PSYCHIATRY: Alert and oriented x3. Mood and affect anxious appearing. NEUROLOGICAL: Pupils equal. Cranial nerves grossly intact. Power and sensation grossly intact. INVESTIGATIONS: White count 8.5, hemoglobin 10.7. Potassium 3.6. BUN 30, creatinine 1.20. EKG atrial flutter with variable AV block. ASSESSMENT: 1. Persistent atrial flutter with rapid ventricular rate. Patient does have a pacemaker at the beginning of June at [facility], started on Cardizem drip earlier. Also given IV digoxin by Dr. Vergara. Patient did get one loading dose and does not want to take any more. 2. Peptic ulcer disease. 3. Chronic esophagitis. 4. Essential hypertension. 5. Primary osteoarthritis of multiple joints, bilateral. 6. Depression, not otherwise specified. 7. Essential dysmotility. 8. Hypothyroidism. PLAN: At the present time, patient is on IV Cardizem, one dose of IV digoxin was given. Patient's home medications will be resumed. Cardiology has been consulted. On the last admission, patient was on flecainide. Will have the patient follow with Cardiology. A heating pad was given for the back. Also put on [place] for pain control and patient likes Ensure and encouraged to increase oral intake.
[2016-08-18 12:05] LABS: Glucose,Whole Blood 100 mg/dL (75-99)
[2016-08-18] MEDS: ALPRAZolam 0.25 MG TAB PO PRN ×2 (13:10→21:30)
--- NOTE | 2016-08-18 14:19 | P.PN ---
Subjective Principal diagnosis: Atrial flutter This is a 70-year-old female with history of known atrial flutter and also permanent pacemaker implantation was seen in the emergency room yesterday with the Gregg calzada with RVR. Patient was advised to go to [facility] but patient refused and went home on medical therapy. Patient came back to the hospital again today with complaints of palpitations and she is found to be in atrial flutter with rapid ventricular response. Patient is initiated on IV Cardizem. Initially the patient had refused to take Lanoxin yesterday, because she thought her levels would be high. We did check a dig level which came back at less than 0.4. We will start the patient on 0.125 mg orally of Lanoxin 5 days a week. Patient will also undergo atrial flutter ablation on Sunday by Dr. Shultz. Objective - Vital Signs Vital signs: Vital Signs Temp 96.7 F L 08/18/16 07:43 Pulse 92 08/18/16 10:53 Resp 16 08/18/16 10:53 BP 106/70 08/18/16 10:53 Pulse Ox 93 L 08/18/16 10:53 Intake & Output 08/17/16 08/18/16 08/18/16 18:59 06:59 18:59 Intake Total 1780 Output Total 450 Balance 1330 Weight 56.2 kg Intake: IV 80 Diltiazem 125 mg In 80 Sodium Chloride 0.9% 100 ml @ 5 MG/HR 5 mls/hr IV .Q24H ONE Rx#:[id number] Intake, IV Titration 1600 Amount Sodium Chloride 0.9% 1, 1600 000 ml @ 100 mls/hr IV . Q10H [facility] Rx#:[id number] Oral 100 Output: Urine 450 Other: Voiding Method Toilet - Exam PHYSICAL EXAMINATION: HEENT: Head is atraumatic, normocephalic. Pupils equal, round. Neck is supple. There is no elevated jugular venous pressure. HEART EXAMINATION: S1 and S2 irregularly irregular CHEST EXAMINATION: Lungs are clear to auscultation and precussion. No chest wall tenderness is noted on palpation or with deep breathing. ABDOMEN: Soft, nontender. Bowel sounds are heard. No organomegaly noted. EXTREMITIES: 2+ peripheral pulses with no evidence of peripheral edema and no calf tenderness noted. NEUROLOGIC patient is awake, alert and oriented -3. . - Labs CBC & Chem 7: 08/17/16 11:20 08/17/16 11:20 Labs: Abnormal Lab Results - Last 24 Hours (Table) 08/17/16 08/17/16 08/17/16 Range/Units 14:25 17:27 23:37 POC Glucose (mg/dL) (75-99) mg/dL Total Creatine Kinase 263 H 244 H (30-135) U/L CK-MB (CK-2) 3.4 H* 3.3 H* (0.0-2.4) ng/mL Urine Protein Trace H (Negative) 08/18/16 08/18/16 Range/Units 05:54 11:59 POC Glucose (mg/dL) 110 H 100 H (75-99) mg/dL Total Creatine Kinase (30-135) U/L CK-MB (CK-2) (0.0-2.4) ng/mL Urine Protein (Negative) Microbiology - Last 24 Hours (Table) 08/17/16 14:25 Urine Culture - Preliminary Urine,Catheterized Assessment and Plan Plan: Assessment and Plan (1) Atrial flutter with rapid ventricular response Status: Acute (2) Nausea & vomiting Status: Acute (3) CAD (coronary artery disease) Status: Acute (4) Dysphagia Status: Acute (5) GI bleeding Status: Acute Plan It continues to be in atrial flutter, heart rate in the low 100s today. We will start the patient on Lanoxin 0.125 mg daily 5 days a week. She will be scheduled to undergo atrial flutter ablation on Sunday. DNP note has been reviewed, I agree with a documented findings and plan of care. Patient was seen and examined.
[2016-08-18] MEDS: DIGOXIN 125 MCG TAB PO SCH (16:03)
[2016-08-18] MEDS: DILTIAZEM 125 MG in SODIUM CHLORIDE 0.9% 100 ML IV SCH (19:52)
[2016-08-19] MEDS: HYDROcodone/APAP 5-325MG 1 EACH TAB PO PRN ×4 (04:40→23:06)
[2016-08-19] MEDS: SUCRALFATE 1 GM TAB PO SCH ×4 (04:42→19:42)
[2016-08-19 06:50] LABS: CH 29.4; CHCM 30.5; HDW 2.69; HGB 9.7 gm/dL (11.4-16.0); Hypochromasia Moderate; MCH 30.4 pg (25.0-35.0); MCHC 31.4 g/dL (31.0-37.0); MCV 96.8 fL (80.0-100.0); Mean Platelet Volume 7.3; RDW 14.5 % (11.5-15.5)
[2016-08-19 07:04] LABS: Anion Gap 5 mmol/L; Blood Urea Nitrogen 7 mg/dL (7-17); Calcium 9.1 mg/dL (8.4-10.2); Carbon Dioxide 27 mmol/L (22-30); Chloride 110 mmol/L (98-107); Glucose 85 mg/dL (74-99); Non-African American GFR(MDRD) 55 (>60 ml/min/1.73 sqM); Potassium 3.9 mmol/L (3.5-5.1); Sodium 142 mmol/L (137-145)
[2016-08-19] MEDS: PANTOPRAZOLE 40 MG TABLET PO SCH ×2 (08:43→19:42)
[2016-08-19] MEDS: ASPIRIN 81 MG CHEW PO SCH (08:43)
[2016-08-19] MEDS: GABAPENTIN 300 MG CAP PO SCH ×3 (08:43→19:42)
[2016-08-19] MEDS: DIGOXIN 125 MCG TAB PO SCH (08:43)
[2016-08-19] MEDS: APIXABAN 5 MG TAB PO SCH ×2 (09:50→19:42)
[2016-08-19] MEDS: SUMAtriptan SUCCINATE 50 MG TAB PO PRN ×2 (09:51→19:41)
--- NOTE | 2016-08-19 11:11 | P.PN ---
Subjective Principal diagnosis: Atrial flutter This is a 70-year-old female with history of known atrial flutter and also permanent pacemaker implantation was seen in the emergency room yesterday with the Gregg calzada with RVR. Patient was advised to go to [facility] but patient refused and went home on medical therapy. Patient came back to the hospital again today with complaints of palpitations and she is found to be in atrial flutter with rapid ventricular response. She was initiated on Lanoxin yesterday, continues to be in an atrial flutter with a heart rate in the 70s. Continues to be on a Cardizem drip at 5 mg per hour. Patient will also undergo atrial flutter ablation on Sunday by Dr. Hernandez. Patient states she is feeling much better today. Breathing is stable, denies palpitations. Objective - Vital Signs Vital signs: Vital Signs Temp 97 F L 08/19/16 08:38 Pulse 73 08/19/16 08:38 Resp 16 08/19/16 08:38 BP 107/68 08/19/16 08:38 Pulse Ox 98 08/19/16 08:38 Intake & Output 08/18/16 08/19/16 08/19/16 18:59 06:59 18:59 Intake Total 276 400 64.083 Balance 276 400 64.083 Weight 56.7 kg 56.7 kg Intake: IV 40 80 Diltiazem 125 mg In 40 80 Sodium Chloride 0.9% 100 ml @ 5 MG/HR 5 mls/hr IV .Q24H ONE Rx#:[id number] Intake, IV Titration 320 64.083 Amount Diltiazem 125 mg In 64.083 Sodium Chloride 0.9% 100 ml @ 5 MG/HR 5 mls/hr IV .Q24H [facility] Rx#:[id number] Sodium Chloride 0.9% 1, 320 000 ml @ 20 mls/hr IV . Q24H IN[facility]IO Rx#:[id number] Oral 236 Other: Voiding Method Toilet # Voids 2 2 - Exam PHYSICAL EXAMINATION: HEENT: Head is atraumatic, normocephalic. Pupils equal, round. Neck is supple. There is no elevated jugular venous pressure. HEART EXAMINATION: S1 and S2 irregularly irregular CHEST EXAMINATION: Lungs are clear to auscultation and precussion. No chest wall tenderness is noted on palpation or with deep breathing. ABDOMEN: Soft, nontender. Bowel sounds are heard. No organomegaly noted. EXTREMITIES: 2+ peripheral pulses with no evidence of peripheral edema and no calf tenderness noted. NEUROLOGIC patient is awake, alert and oriented -3. . - Labs CBC & Chem 7: 08/19/16 06:22 08/19/16 06:22 Labs: Abnormal Lab Results - Last 24 Hours (Table) 08/18/16 08/19/16 08/19/16 Range/Units 11:59 06:22 06:22 RBC 3.20 L (3.80-5.40) m/uL Hgb 9.7 L (11.4-16.0) gm/dL Hct 31.0 L (34.0-46.0) % Chloride 110 H (98-107) mmol/L POC Glucose (mg/dL) 100 H (75-99) mg/dL Microbiology - Last 24 Hours (Table) 08/17/16 14:25 Urine Culture - Final Urine,Catheterized Assessment and Plan Plan: Assessment and Plan (1) Atrial flutter with rapid ventricular response (2) Nausea & vomiting (3) CAD (coronary artery disease) (4) Dysphagia Plan It continues to be in atrial flutter, heart rate in the low 80s today. Continue Lanoxin 0.125 mg 5 days a week She will be scheduled to undergo atrial flutter ablation on Sunday. DNP note has been reviewed, I agree with a documented findings and plan of care. Patient was seen and examined.
[2016-08-19] MEDS: ALPRAZolam 0.25 MG TAB PO PRN ×2 (11:16→17:28)
--- NOTE | 2016-08-19 11:18 | PN ---
DATE OF SERVICE: 08/18/2016 PRESENTING COMPLAINT: Heart racing. INTERVAL HISTORY: This is a patient with multiple medical problems who presented with a rather complicated cardiac history; had a pacemaker at [facility]. She came into the ER, initially asked to go to [facility], then came back again the next day. Now ( ) in atrial flutter/fibrillation. Initially given Cardizem, then given IV digoxin. Digoxin was stopped outpatient for possible toxicity. Digoxin was ordered here by Dr. Vergara, but patient is concerned about toxicity and decided not to take it. Overnight patient's back pain is better. She is concerned about multiple medications. Did tolerate ice cream and Ensure overnight. Nausea is much better controlled. She appears to be much more relaxed today. Still, however, remains in atrial flutter ( ). Review of systems done for constitutional, cardiovascular, GI, pulmonary, musculoskeletal; relevant findings as above. Still complains of acute back pain; actually better with the [place] prescribed. Current medications are reviewed that include IV Cardizem and digoxin as ordered by Cardiology. On examination, temperature 96.7, pulse 125, respiration 16, blood pressure 114/68, pulse ox 94% on room air. GENERAL APPEARANCE: Lying in bed, rather tired- and exhausted-appearing, though a shade better than yesterday. EYES: Pupils equal. Conjunctivae pale. NECK: JVD not raised. Mass not palpable. RESPIRATORY: Effort normal. Lungs are clear. CARDIOVASCULAR: Heart sounds irregular. Some edema. ABDOMEN: Soft, nontender. Liver and spleen not palpable. PSYCHIATRY: Alert and oriented x3. Mood and affect very anxious-appearing. MUSCULOSKELETAL: Lower back mild tenderness. INVESTIGATIONS: Troponins are negative. Accu-Cheks are noted. Digoxin is less than 0.4. ASSESSMENT: 1. Persistent atrial flutter with rapid ventricular rate, uncontrolled. Patient has been on IV Cardizem drip, given one dose of IV digoxin. Patient refused a second dose. Cardiology will follow with the patient. 2. Peptic ulcer disease. 3. Chronic esophagitis. 4. Essential hypertension. 5. Primary osteoarthritis in multiple joints, bilateral. 6. Acute flareup of lumbar osteoarthritis. 7. Depression not otherwise specified. 8. Hypothyroidism. Esophageal dysmotility. 9. Anxiety not otherwise specified. PLAN: Care was discussed at length with the patient ( ) she is concerned about some of the swelling. Did tell her that this is from the IV fluids and oral nutritional status which has not been good. Nausea and vomiting ( ) told to keep on taking her Ensure and supplements. Cardiology/Electrophysiology Dr. Hernandez will address the ( ) further. This patient was seen by me on 08/18/16.
[2016-08-19] MEDS: ONDANSETRON 4 MG/2 ML VIAL IVP PRN (16:15)
[2016-08-19] MEDS: DILTIAZEM 125 MG in SODIUM CHLORIDE 0.9% 100 ML IV SCH (16:15)
--- NOTE | 2016-08-19 18:11 | PN ---
This is a 70-year-old female with a history of paroxysmal atrial fibrillation, status post pacemaker placement in the past, who came to the hospital with complaints of palpitations. Patient is seen in cross-coverage for Dr. Wong. Patient is currently on 5 mg of Cardizem; has been started on digoxin at a lower dose. In the past patient apparently was on digoxin, but it was stopped due to concern about toxicity. States that she does continue to have intermittent episodes of palpitations and some complaints of chest tightness. Intermittent episodes of headaches, right-sided, are reported, which I attributed to her chronic migraines. No urinary urgency, frequency, dizziness or diarrhea is reported. PHYSICAL EXAMINATION: Heart rate between 70 and 120. Temperature 97. Respiratory rate 16. Blood pressure 116/68. GENERAL APPEARANCE: Alert and oriented x3, in no distress. NECK: Supple. No JVD. LUNGS: Good air movement. Clear to auscultation. No rhonchi, wheezing or crackles. HEART: Irregularly irregular. No significant murmur appreciated. ABDOMEN: Soft, nontender. No organomegaly. LOWER EXTREMITIES: No lower extremity edema. NEUROLOGIC: No focal motor or sensory deficits noted. LABS: Hemoglobin is 9.7, hematocrit 31. White count is 6. ( ) Sodium 142, potassium 3.9, chloride 110, bicarb 27. BUN 7, creatinine 1. ASSESSMENT AND PLAN: 1. Atrial flutter. 2. History of hypertension. 3. Chronic migraine headaches. 4. Peripheral neuropathy. 5. History of anxiety. PLAN: Continue ongoing care. Patient is scheduled for an ablation on Sunday. Continue current rate control medication. Headache p.r.n. treatments to be continued. Will obtain a TSH tomorrow a.m. Further recommendations per the consulting windrower operator.
[2016-08-19] MEDS: SODIUM CHLORIDE 0.9% 1,000 ML IV SCH (19:43)
[2016-08-20] MEDS: HYDROcodone/APAP 5-325MG 1 EACH TAB PO PRN ×3 (04:46→16:36)
[2016-08-20] MEDS: SUCRALFATE 1 GM TAB PO SCH ×4 (04:46→22:29)
[2016-08-20] MEDS: ALPRAZolam 0.25 MG TAB PO PRN ×3 (04:46→22:29)
[2016-08-20 06:57] LABS: Basophils % (A) 1 %; CHCM 29.8; Eosinophils # (A) 0.4 k/uL (0-0.7); Eosinophils % (A) 9 %; HDW 2.53; HGB 9.4 gm/dL (11.4-16.0); Hypochromasia Marked; Luc # (Auto) 0.14; Luc % (Auto) 3; Lymphocytes # (A) 1.7 k/uL (1.0-4.8); Lymphocytes % (A) 37 %; MCH 30.7 pg (25.0-35.0); MCHC 31.5 g/dL (31.0-37.0); MCV 97.6 fL (80.0-100.0); Mean Platelet Volume 7.2; Monocytes # (A) 0.2 k/uL (0-1.0); Monocytes % (A) 5 %; Neutrophils # (A) 2.1 k/uL (1.3-7.7); Neutrophils % (A) 46 %; RBC 3.08 m/uL (3.80-5.40); RDW 14.6 % (11.5-15.5); WBC 4.7 k/uL (3.8-10.6); WBC (Perox) 4.97
[2016-08-20 07:14] LABS: ALT 24 U/L (9-52); AST 27 U/L (14-36); Alkaline Phosphatase 87 U/L (38-126); Anion Gap 9 mmol/L; Blood Urea Nitrogen 8 mg/dL (7-17); Calcium 9.2 mg/dL (8.4-10.2); Carbon Dioxide 23 mmol/L (22-30); Chloride 110 mmol/L (98-107); Glucose 86 mg/dL (74-99); Non-African American GFR(MDRD) >60 (>60 ml/min/1.73 sqM); Sodium 142 mmol/L (137-145); Total Bilirubin 0.3 mg/dL (0.2-1.3)
[2016-08-20] MEDS: DIGOXIN 125 MCG TAB PO SCH (08:56)
[2016-08-20] MEDS: PANTOPRAZOLE 40 MG TABLET PO SCH ×2 (08:56→20:36)
[2016-08-20] MEDS: APIXABAN 5 MG TAB PO SCH ×2 (08:56→20:36)
[2016-08-20] MEDS: ASPIRIN 81 MG CHEW PO SCH (08:56)
[2016-08-20] MEDS ORDERED: METOPROLOL TARTRATE 25 MG TAB PO SCH (09:45)
[2016-08-20] MEDS: SUMAtriptan SUCCINATE 50 MG TAB PO PRN ×2 (09:49→20:35)
[2016-08-20] MEDS: ONDANSETRON 4 MG/2 ML VIAL IVP PRN (09:55)
[2016-08-20] MEDS: SODIUM CHLORIDE 0.9% 1,000 ML IV SCH (12:00)
[2016-08-20] MEDS ORDERED: FUROSEMIDE 20 MG TAB PO STA (13:08)
[2016-08-20] MEDS: TOPIRAMATE 25 MG TAB PO SCH ×2 (13:53→20:36)
--- NOTE | 2016-08-20 14:12 | P.PN ---
Subjective Principal diagnosis: A. fib/atrial flutter This is a pleasant 70-year-old female patient with a past medical history significant for permanent pacemaker as well as paroxysmal atrial fibrillation/atrial flutter was admitted to the hospital andwith atrial flutter. The patient was converted to normal sinus mechanism. She is going to have a flutter ablation in the next week by Dr. Hernandez. She denies having any chest pain or discomfort or difficulty in breathing. Objective - Vital Signs Vital signs: Vital Signs Temp 96.8 F L 08/20/16 11:20 Pulse 74 08/20/16 11:20 Resp 16 08/20/16 11:20 BP 126/69 08/20/16 11:20 Pulse Ox 95 08/20/16 11:20 Intake & Output 08/19/16 08/20/16 08/20/16 18:59 06:59 18:59 Intake Total 2063.000 420 Output Total 100 100 Balance 2063.000 320 -100 Weight 56.7 kg 57.2 kg Intake: IV 20 Diltiazem 125 mg In 20 Sodium Chloride 0.9% 100 ml @ 5 MG/HR 5 mls/hr IV .Q24H INOCENCIO Rx#:[id number] Intake, IV Titration 243.000 320 Amount Diltiazem 125 mg In 83.000 Sodium Chloride 0.9% 100 ml @ 5 MG/HR 5 mls/hr IV .Q24H INOCENCIO Rx#:[id number] Sodium Chloride 0.9% 1, 160 320 000 ml @ 20 mls/hr IV . Q24H INOCENCIO Rx#:[id number] Oral 1800 100 Output: Urine 100 100 Other: Voiding Method Toilet Toilet Toilet # Voids 1 1 - Constitutional General appearance: Present: no acute distress - Respiratory Respiratory: bilateral: CTA - Cardiovascular Rhythm: regular - Labs CBC & Chem 7: 08/20/16 06:19 08/20/16 06:19 Labs: Abnormal Lab Results - Last 24 Hours (Table) 08/20/16 08/20/16 Range/Units 06:19 06:19 RBC 3.08 L (3.80-5.40) m/uL Hgb 9.4 L (11.4-16.0) gm/dL Hct 30.0 L (34.0-46.0) % Chloride 110 H (98-107) mmol/L Total Protein 6.0 L (6.3-8.2) g/dL Albumin 3.1 L (3.5-5.0) g/dL TSH 27.500 H (0.465-4.680) mIU/L Assessment and Plan Plan: Assessment Paroxysmal atrial flutter Permanent pacemaker Plan The patient is going to have a flutter ablation in early next week
[2016-08-20] MEDS: GABAPENTIN 300 MG CAP PO SCH ×2 (15:51→20:36)
[2016-08-20] MEDS: DILTIAZEM 125 MG in SODIUM CHLORIDE 0.9% 100 ML IV SCH (16:37)
[2016-08-20] MEDS ORDERED: HYDROmorphone 1 MG/ML 1 ML SYRINGE IVP STA (17:55)
--- NOTE | 2016-08-20 19:48 | PN ---
SUBJECTIVE DATA: This is a 70-year-old female that is admitted to the hospital with palpitations. The patient does have a history of atrial fibrillation appeared to be in A. flutter appears to be variable flutter at this time. The patient was started on digoxin and has been on a Cardizem drip. Patient was refractory to multiple medications, hence was admitted to the hospital to undergo a electrophysiology study and thereafter likely ablation. Today patient states that she continues to be weak, ( ) of intermittent headaches. In regards to her hypothyroidism, patient apparently was taken off Synthroid about 4 months ago. Thereafter started to have symptoms including decreased appetite and lack of energy. Patient is not having any headaches, blurry vision, nausea, vomiting, diarrhea. SUBJECTIVE DATA: VITALS: Temperature 96.7, heart rate is a 76, respiratory rate 16, blood pressure 108/56, saturating 98% on room air. GENERAL: Appears alert, oriented x3 in no distress. LUNGS: Good air movement. Clear to auscultation. Neck is supple. No jugular venous distention. HEENT atraumatic, normocephalic. Pupils are equal, round, and reactive to light and accommodation. Extraocular movements are intact. HEART: S1, S2 heard. Appears to be regular today. No murmurs appreciated. ABDOMEN: Soft, nontender, no organomegaly. NEUROLOGICAL: No focal motor or sensory deficits noted. LOWER EXTREMITIES: Trace edema is appreciated. LABORATORY DATA: Hemoglobin 9.4, hematocrit 30, platelets of 264, white count 4.7. Sodium 142, potassium 4, chloride 110, bicarb 23. BUN 8, creatinine 0.88. TSH was 27.5, T4 0.79. ASSESSMENT AND PLAN: 1. Atrial flutter scheduled for an EP study and ablation. 2. Hypothyroidism currently uncontrolled with an elevated TSH. 3. Migraine headaches. 4. History of anxiety. 5. Peripheral neuropathy. In regards to hypothyroidism, patient was previously on 88 mcg of Synthroid. We will start the patient on a lower dose at 15 mcg as the patient has been having some rhythm abnormalities in the recent during this admission. It should be titrated appropriately thereafter on outpatient follow-up. We will also give a dose of Lasix at 20 mg p.o. today, the likely reason for lower extremity edema could also be secondary to tachyphylaxis induced fluid retention. In regards to migraine headaches, I discussed chronic management. We will start the patient on 25 mg p.o. b.i.d. of topiramate. Patient has been having at least 4 episodes of left-sided headaches. Patient was evaluated and diagnosed to having migraine by a neurologist out of [facility]. This is to continue. We will follow up. In regards to rate control management, we will defer that to cardiology. Encourage activity. Will follow.
[2016-08-20] MEDS: HYDROcodone/APAP 7.5-325MG 1 EACH TAB PO PRN (22:29)
[2016-08-21] MEDS: HYDROcodone/APAP 7.5-325MG 1 EACH TAB PO PRN ×4 (06:42→22:00)
[2016-08-21] MEDS: LEVOTHYROXINE 50 MCG TAB PO SCH (06:43)
[2016-08-21] MEDS: SUMAtriptan SUCCINATE 50 MG TAB PO PRN ×2 (07:17→22:00)
[2016-08-21] MEDS: SUCRALFATE 1 GM TAB PO SCH ×4 (07:18→22:00)
[2016-08-21] MEDS: GABAPENTIN 300 MG CAP PO SCH ×3 (08:13→21:37)
[2016-08-21] MEDS: TOPIRAMATE 25 MG TAB PO SCH ×2 (08:13→21:38)
[2016-08-21] MEDS: PANTOPRAZOLE 40 MG TABLET PO SCH ×2 (08:13→21:37)
[2016-08-21] MEDS: DIGOXIN 125 MCG TAB PO SCH (08:13)
[2016-08-21] MEDS: ASPIRIN 81 MG CHEW PO SCH (08:13)
[2016-08-21] MEDS: APIXABAN 5 MG TAB PO SCH ×2 (08:13→21:38)
[2016-08-21] MEDS: ALPRAZolam 0.25 MG TAB PO PRN ×2 (10:43→18:37)
[2016-08-21] MEDS: ONDANSETRON 4 MG/2 ML VIAL IVP PRN (10:43)
[2016-08-21] MEDS ORDERED: methylPREDNISolone SOD SUCCI 125 MG/2 ML VIAL IV STA (11:10)
--- NOTE | 2016-08-21 12:32 | P.PN ---
Subjective Principal diagnosis: Atrial flutter This is a 70-year-old female with history of known atrial flutter and also permanent pacemaker implantation was seen in the emergency room yesterday with the Gregg calzada with RVR. Patient was advised to go to [facility] but patient refused and went home on medical therapy. Patient came back to the hospital with complaints of palpitations and she was found to be in atrial flutter with rapid ventricular response. She was initiated on Lanoxin , only in a normal sinus rhythm . Continues to be on a Cardizem drip at 5 mg per hour. Patient will undergo atrial flutter ablation on Sunday by Dr. Hernandez. Patient states she is feeling much better today. Breathing is stable, denies palpitations. TSH level 27.5, free T4 0.79. Patient reinitiated on Synthroid. Objective - Vital Signs Vital signs: Vital Signs Temp 97.6 F 08/21/16 12:16 Pulse 85 08/21/16 12:16 Resp 16 08/21/16 12:16 BP 107/56 08/21/16 12:16 Pulse Ox 93 L 08/21/16 12:16 Intake & Output 08/20/16 08/21/16 08/21/16 18:59 06:59 18:59 Intake Total 220.917 280 120 Output Total 100 2000 Balance 120.917 -1720 120 Weight 56.2 kg Intake: IV 160 280 Sodium Chloride 0.9% 1, 160 280 000 ml @ 20 mls/hr IV . Q24H INOCENCIO Rx#:[id number] Intake, IV Titration 60.917 Amount Diltiazem 125 mg In 60.917 Sodium Chloride 0.9% 100 ml @ 5 MG/HR 5 mls/hr IV .Q24H INOCENCIO Rx#:[id number] Oral 120 Output: Urine 100 2000 Other: Voiding Method Toilet Toilet Toilet - Exam PHYSICAL EXAMINATION: HEENT: Head is atraumatic, normocephalic. Pupils equal, round. Neck is supple. There is no elevated jugular venous pressure. HEART EXAMINATION: S1 and S2 normal CHEST EXAMINATION: Lungs are clear to auscultation and precussion. No chest wall tenderness is noted on palpation or with deep breathing. ABDOMEN: Soft, nontender. Bowel sounds are heard. No organomegaly noted. EXTREMITIES: 2+ peripheral pulses with no evidence of peripheral edema and no calf tenderness noted. NEUROLOGIC patient is awake, alert and oriented -3. . - Labs CBC & Chem 7: 08/20/16 06:19 08/20/16 06:19 Assessment and Plan Plan: Assessment and Plan (1) Atrial flutter with rapid ventricular response, paroxysmal in nature. (2) Nausea & vomiting (3) CAD (coronary artery disease) (4) Dysphagia Plan It is currently in a normal sinus rhythm, scheduled for atrial flutter ablation tomorrow with Dr. Hernandez. DNP note has been reviewed, I agree with a documented findings and plan of care. Patient was seen and examined.
[2016-08-21] MEDS: SODIUM CHLORIDE 0.9% 1,000 ML IV SCH (13:44)
[2016-08-21] MEDS: DILTIAZEM 125 MG in SODIUM CHLORIDE 0.9% 100 ML IV SCH (16:43)
--- NOTE | 2016-08-21 19:18 | PN ---
SUBJECTIVE DATA: This is a 70-year-old female who was admitted to the hospital with palpitations. Patient appeared to be in atrial fibrillation with RVR. Patient was loaded up with digoxin and continued on Cardizem drip. Patient is scheduled for an electrophysiology study and ablation if appropriate. Today patient states that she has a left-sided headache which was induced by a loud noise. Denies having any blurry vision, nausea, vomiting, chest pain. Does not appear to have some palpitations intermittently. No urinary urgency or frequency. PHYSICAL EXAM: VITALS: Temperature 97.8, heart rate 72, respiratory rate 16, blood pressure 118/54. Saturating 94% on room air. GENERALLY: Patient appears to be alert, oriented x3. HEENT: The pupils are equal and reactive to light and accommodation. HEART: Irregularly irregular. No significant murmur appreciated. LUNGS: Good air entry. No wheezing or rhonchi noted. ABDOMINAL EXAM: Soft, nontender, no organomegaly appreciated. GENITOURINARY: No Greene in place. EXTREMITIES: Pulses can be palpated distally. Denies any tenderness on gross palpation. SKIN: On a gross skin exam does not appear to have any purpura or any skin rashes that were noted. NEUROLOGICALLY: Grossly cranial nerves 2-12 intact. No motor or sensory deficits noted. Labs were reviewed from the previous day. ASSESSMENT AND PLAN: 1. Atrial flutter, scheduled to undergo electrophysiology study 08/22/16. 2. History of migraine headaches with an acute migraine today. 3. Peripheral neuropathy. 4. Anxiety. 5. Hypothyroidism, uncontrolled. PLAN: Await results of the procedure tomorrow. Continue with Synthroid at 50 mcg. It will need to be titrated accordingly on an outpatient basis. Continue with current medications. Patient's [place] was adjusted to treat acute migraine headache. Patient was also given a dose of Solu-Medrol 80 mg IV for status migrainosus. Repeat labs in a.m. Continue with Eliquis at this time. Will follow. Continue with Topamax as well, which could be titrated if patient continues to have headaches appropriately tomorrow.
[2016-08-22] MEDS: ALPRAZolam 0.25 MG TAB PO PRN ×3 (01:17→22:49)
[2016-08-22] MEDS: HYDROcodone/APAP 7.5-325MG 1 EACH TAB PO PRN ×3 (01:17→11:51)
[2016-08-22] MEDS: APIXABAN 5 MG TAB PO SCH (07:10)
[2016-08-22] MEDS: SUCRALFATE 1 GM TAB PO SCH ×4 (07:10→23:03)
[2016-08-22] MEDS: ASPIRIN 81 MG CHEW PO SCH (07:10)
[2016-08-22] MEDS: LEVOTHYROXINE 50 MCG TAB PO SCH (07:10)
[2016-08-22] MEDS: PANTOPRAZOLE 40 MG TABLET PO SCH ×2 (07:11→23:02)
[2016-08-22] MEDS: TOPIRAMATE 25 MG TAB PO SCH ×2 (07:11→23:02)
[2016-08-22] MEDS: DIGOXIN 125 MCG TAB PO SCH (07:11)
[2016-08-22] MEDS: GABAPENTIN 300 MG CAP PO SCH ×3 (07:11→23:02)
[2016-08-22 08:29] LABS: Basophils % (A) 0 %; CH 29.2; CHCM 30.4; Eosinophils % (A) 0 %; HCT 36.4 % (34.0-46.0); HDW 2.63; HGB 10.8 gm/dL (11.4-16.0); Hypochromasia Moderate; Luc # (Auto) 0.05; Luc % (Auto) 1; Lymphocytes # (A) 0.6 k/uL (1.0-4.8); Lymphocytes % (A) 6 %; MCH 28.6 pg (25.0-35.0); MCHC 29.7 g/dL (31.0-37.0); MCV 96.3 fL (80.0-100.0); Mean Platelet Volume 6.9; Monocytes # (A) 0.3 k/uL (0-1.0); Monocytes % (A) 3 %; Neutrophils # (A) 9.2 k/uL (1.3-7.7); Neutrophils % (A) 90 %; RBC 3.78 m/uL (3.80-5.40); RDW 14.7 % (11.5-15.5); WBC 10.2 k/uL (3.8-10.6); WBC (Perox) 10.33
[2016-08-22 08:42] LABS: ALT 23 U/L (9-52); AST 27 U/L (14-36); Alkaline Phosphatase 106 U/L (38-126); Anion Gap 11 mmol/L; Blood Urea Nitrogen 10 mg/dL (7-17); Calcium 9.6 mg/dL (8.4-10.2); Carbon Dioxide 23 mmol/L (22-30); Chloride 107 mmol/L (98-107); Glucose 123 mg/dL (74-99); Non-African American GFR(MDRD) 55 (>60 ml/min/1.73 sqM); Potassium 4.5 mmol/L (3.5-5.1); Sodium 141 mmol/L (137-145); Total Bilirubin 0.5 mg/dL (0.2-1.3); Total Protein 7.3 g/dL (6.3-8.2)
[2016-08-22 11:31] VITALS: BMI 23.3
[2016-08-22] MEDS: SODIUM CHLORIDE 0.9% 1,000 ML IV SCH (11:53)
[2016-08-22] MEDS ORDERED: ceFAZolin 2 GM in SODIUM CHLORIDE 0.9% 100 ML IVPB ONE (11:59)
[2016-08-22] MEDS: SUMAtriptan SUCCINATE 50 MG TAB PO PRN (12:30)
[2016-08-22] MEDS ORDERED: MIDAZOLAM 2 MG/2 ML VIAL ONE (13:18)
[2016-08-22] MEDS ORDERED: DEXAMETHASONE SOD PHOSPHATE 4 MG/ML 1 ML VIAL IVP ONE (13:26)
[2016-08-22] MEDS ORDERED: ISOPROTERENOL 250 MCG/1.25 ML SYR IV ONE (14:38)
[2016-08-22] MEDS ORDERED: IV FLUID CONTINUATION 1,000 ML IV ONE (14:38)
[2016-08-22] MEDS ORDERED: fentaNYL (PF) 50 MCG/ML 2 ML AMP ONE (14:38)
[2016-08-22] MEDS ORDERED: PROPOFOL 10 MG/ML 20 ML VIAL IV ONE (14:38)
[2016-08-22] MEDS ORDERED: HEPARIN SODIUM (1,000 UNIT/ML) 1,000 UNIT in SODIUM CHLORIDE 0.9% 1,000 ML IRRIGATION ONE (15:12)
[2016-08-22] MEDS ORDERED: LIDOCAINE 2% INJ 20 MG/ML SQ ONE (15:23)
[2016-08-22] MEDS ORDERED: ACETAMINOPHEN TAB 325 MG TAB PO PRN (17:39)
[2016-08-22] MEDS ORDERED: ACETAMINOPHEN IV (For NPO) 1,000 MG in EMPTY BAG 1 BAG IVPB ONE (17:45)
[2016-08-22] MEDS ORDERED: ONDANSETRON 4 MG/2 ML VIAL IVP ONE (17:46)
[2016-08-22] MEDS ORDERED: ACETAMINOPHEN IV (For NPO) 1,000 MG/100 ML VIAL IVPB ONE (17:50)
[2016-08-22] MEDS: HYDROcodone/APAP 5-325MG 1 EACH TAB PO PRN ×2 (18:40→22:45)
--- NOTE | 2016-08-22 18:43 | PCN ---
DATE OF PROCEDURE: This patient is a 70-year-old female who presented with atrial flutter with RVR and very symptomatic. She has been appropriately anticoagulated. She was brought in for an atrial flutter ablation. She has a dual-chamber Medtronic pacemaker which was interrogated. The lead impedances were within normal limits and were documented prior to the procedure. Dual-chamber pacing was reprogrammed to VVI at 40 beats/minute. IV antibiotics were administered. Venous sheaths were placed in the right and left femoral veins. Via these, diagnostic and ablation catheters were placed in the high right atrium, His bundle area, RV coronary sinus and in the cavotricuspid isthmus in the right atrium. Sinus cycle length 708 ms, SC interval 166 ms, QRS 99 ms, QT 215 ms, AH interval 52 ms, HV interval 45 ms. There was no evidence of slow pathway conduction. No delta waves were noted. AV node Wenckebach block 410 ms. Sinus node recovery times at 600 and 500 ms were 1141 and 1318 ms. Corresponding corrected sinus node recovery times were mildly prolonged. Isuprel was started. VA Wenckebach block was 42 ms. On high-dose Isuprel, sinus tachycardia was noted, but no atrial fibrillation noted. Intracardiac echocardiography was performed. Three-D mapping of the right atrial isthmus was performed. An RF ablation line was made from the tricuspid valve to the eustachian ridge. Isthmus conduction time was about 161 ms. A complete anatomic line was made. Following that, further testing was performed on and off Isuprel. No atrial fibrillation induced. No atrial flutter induced. This line was interrogated with 100% grid, and there were no gaps noted, either. Please note that this was an average-size isthmus with a mid eustachian pouch. Patient tolerated the procedure well without any immediate complications. All catheters were removed under fluoroscopy. Lead fluoroscopy revealed no change in the position of the leads. The device was then interrogated and reprogrammed. The atrial lead and the ventricular lead impedances were stable and unchanged. Ventricular pacing threshold was 1 v at 0.4 ms. The device was then reprogrammed to DDR with ( ) 250 ms. RESULT: Successful atrial flutter ablation for symptomatic atrial flutter. PROCEDURES PERFORMED: 1. Comprehensive diagnostic EP study. 2. CS pacing and recording. 3. Program stimulation following Isuprel. 4. Intracardiac echocardiography. 5. Three-D mapping. 6. Atrial flutter ablation. 7. Device interrogation prior to the procedure with reprogramming. 8. Device interrogation at the completion of the procedure with reprogramming.
[2016-08-22 23:12] LABS: Basophils % (A) 0 %; CH 28.8; CHCM 29.4; Eosinophils % (A) 0 %; HCT 34.1 % (34.0-46.0); HDW 2.69; HGB 10.4 gm/dL (11.4-16.0); Hypochromasia Marked; Luc # (Auto) 0.07; Luc % (Auto) 1; Lymphocytes # (A) 0.6 k/uL (1.0-4.8); Lymphocytes % (A) 6 %; MCH 30.1 pg (25.0-35.0); MCHC 30.6 g/dL (31.0-37.0); MCV 98.4 fL (80.0-100.0); Monocytes # (A) 0.2 k/uL (0-1.0); Monocytes % (A) 2 %; Neutrophils # (A) 10.5 k/uL (1.3-7.7); Neutrophils % (A) 92 %; RBC 3.46 m/uL (3.80-5.40); RDW 14.6 % (11.5-15.5); WBC 11.4 k/uL (3.8-10.6); WBC (Perox) 11.94
[2016-08-22 23:21] LABS: Anion Gap 10 mmol/L; Blood Urea Nitrogen 12 mg/dL (7-17); Calcium 8.7 mg/dL (8.4-10.2); Carbon Dioxide 22 mmol/L (22-30); Chloride 110 mmol/L (98-107); Glucose 133 mg/dL (74-99); Non-African American GFR(MDRD) 56 (>60 ml/min/1.73 sqM); Potassium 4.4 mmol/L (3.5-5.1); Sodium 142 mmol/L (137-145)
[2016-08-23] MEDS: APIXABAN 5 MG TAB PO SCH ×3 (00:44→21:07)
[2016-08-23] MEDS: HYDROcodone/APAP 5-325MG 1 EACH TAB PO PRN ×5 (05:39→21:04)
[2016-08-23] MEDS: SUCRALFATE 1 GM TAB PO SCH ×4 (05:56→23:16)
[2016-08-23] MEDS: LEVOTHYROXINE 50 MCG TAB PO SCH (05:57)
[2016-08-23 07:00] LABS: CH 29.7; CHCM 31.6; HDW 2.94; HGB 10.6 gm/dL (11.4-16.0); Hypochromasia Slight; MCH 30.2 pg (25.0-35.0); MCV 94.5 fL (80.0-100.0); Mean Platelet Volume 8.2; RDW 14.8 % (11.5-15.5); WBC 13.3 k/uL (3.8-10.6)
[2016-08-23] MEDS: FUROSEMIDE 20 MG TAB PO SCH ×2 (07:50→15:14)
[2016-08-23] MEDS: GABAPENTIN 300 MG CAP PO SCH ×3 (07:50→21:07)
[2016-08-23] MEDS: TOPIRAMATE 25 MG TAB PO SCH ×2 (07:50→21:07)
[2016-08-23] MEDS: PANTOPRAZOLE 40 MG TABLET PO SCH ×2 (07:50→21:07)
[2016-08-23] MEDS: ALPRAZolam 0.25 MG TAB PO PRN ×3 (07:50→23:16)
--- NOTE | 2016-08-23 08:06 | P.PCN ---
Preoperative Diagnosis: Addendum to my procedure note Patient underwent atrial flutter ablation yesterday Prior to starting, and intracardiac echo was performed This showed there was an organized small hematoma in relation to the epicardial surface of the right ventricle close to the apex and anterior wall The pericardium in relation to the left ventricle was normal. The pericardium in relation to the atria was normal This remained unchanged after the EP study and ablation
[2016-08-23] MEDS: SUMAtriptan SUCCINATE 50 MG TAB PO PRN ×2 (09:08→20:42)
--- NOTE | 2016-08-23 22:47 | PN ---
SUBJECTIVE DATA/HOSPITAL COURSE: This is a 70-year-old female who was brought into the hospital with complaints of palpitations. Patient was noted to have a resistant atrial flutter. Patient was started on digoxin and Cardizem drip and was to be taken for EP study and ablation. On 08/22/2016, multiple attempts were made to evaluate the patient. Patient was in the EP lab for a majority part of the day. Today patient was seen at bedside. Patient was tearful and stated that she is concerned about her ( ). There was apparently one episode of bleeding this a.m. Denies having any palpitations, chest pain, nausea, vomiting, abdominal pain, headaches, blurry vision at this time. Physical exam today includes vitals of temperature 96.7, heart rate 84, respiratory rate 20, blood pressure 108/65. Saturating 96% on room air. GENERALLY: Patient appears to be alert, oriented x3. HEENT: The pupils are equal and reactive to light and accommodation. HEART: S1, S2 present. No murmur appreciated. LUNGS: Good air entry. No wheezing or rhonchi noted. ABDOMINAL EXAM: Soft, nontender, no organomegaly appreciated. GENITOURINARY: No Greene in place. EXTREMITIES: Pulses can be palpated distally. Denies any tenderness on gross palpation. SKIN: On a gross skin exam does not appear to have any purpura or any skin rashes that were noted. NEUROLOGICALLY: Grossly cranial nerves 2-12 intact. No motor or sensory deficits noted. Laboratory data include hemoglobin 10.6, hematocrit 33, platelets 354. White count 13.3. Sodium 142, potassium 4.4, chloride 110, bicarb 22. BUN 12, creatinine 0.98. ASSESSMENT AND PLAN: 1. Atrial flutter, status post electrophysiology study and ablation. 2. History of chronic migraine headaches. 3. Peripheral neuropathy. 4. Anxiety with an acute anxiety attack. 5. Hypothyroidism, uncontrolled. PLAN: Continue monitoring, including vascular checks today. Repeat hemoglobin in the a.m. Continue Synthroid at this time. Other medications to be continued. Heart rate is controlled. Continue telemetry monitoring as well. Patient will likely be discharged home in the next 24 hours. Thereafter to follow up with Dr. Hernandez. There is some concern over dysphagia. Patient apparently has had some lower esophageal stenosis, status post dilation at [facility]. Patient would like to follow up with her financial dealers at a later date for follow-up studies. This was discussed with the patient; hence no follow-up studies, including barium swallow, will now be pursued.
[2016-08-24] MEDS: HYDROcodone/APAP 5-325MG 1 EACH TAB PO PRN ×3 (03:33→12:08)
[2016-08-24] MEDS: SUCRALFATE 1 GM TAB PO SCH ×2 (06:29→12:10)
[2016-08-24] MEDS: LEVOTHYROXINE 50 MCG TAB PO SCH (06:29)
[2016-08-24] MEDS: ALPRAZolam 0.25 MG TAB PO PRN ×2 (07:31→15:09)
[2016-08-24 08:25] VITALS: BP 131/67; RESP 18; TEMP 97
[2016-08-24] MEDS: APIXABAN 5 MG TAB PO SCH (08:59)
[2016-08-24] MEDS: GABAPENTIN 300 MG CAP PO SCH ×2 (08:59→15:10)
[2016-08-24] MEDS: FUROSEMIDE 20 MG TAB PO SCH ×2 (08:59→15:10)
[2016-08-24] MEDS: TOPIRAMATE 25 MG TAB PO SCH (09:00)
[2016-08-24] MEDS: PANTOPRAZOLE 40 MG TABLET PO SCH (09:00)
[2016-08-24] MEDS: SUMAtriptan SUCCINATE 50 MG TAB PO PRN (09:31)
--- NOTE | 2016-08-24 14:52 | P.PN ---
Subjective Principal diagnosis: Atrial flutter This is a 70-year-old female with history of known atrial flutter and also permanent pacemaker implantation was seen in the emergency room yesterday with the Gregg calzada with RVR. Patient was advised to go to [facility] but patient refused and went home on medical therapy. Patient came back to the hospital with complaints of palpitations and she was found to be in atrial flutter with rapid ventricular response. The patient underwent atrial flutter ablation by Dr. Hernandez , he continues to be in a normal sinus rhythm this morning. Overall she is feeling very well, no complaints. Objective - Vital Signs Vital signs: Vital Signs Temp 97 F L 08/24/16 08:00 Pulse 98 08/24/16 08:00 Resp 18 08/24/16 08:00 BP 131/67 08/24/16 08:00 Pulse Ox 98 08/24/16 08:00 Intake & Output 08/23/16 08/24/16 08/24/16 18:59 06:59 18:59 Intake Total 340 1380 Balance 340 1380 Weight 54.5 kg Intake: IV 40 Sodium Chloride 0.9% 1, 40 000 ml @ 20 mls/hr IV . Q24H INOCENCIO Rx#:[id number] Oral 300 1380 Other: Voiding Method Toilet Toilet # Voids 2 1 - Exam PHYSICAL EXAMINATION: HEENT: Head is atraumatic, normocephalic. Pupils equal, round. Neck is supple. There is no elevated jugular venous pressure. HEART EXAMINATION: S1 and S2 normal CHEST EXAMINATION: Lungs are clear to auscultation and precussion. No chest wall tenderness is noted on palpation or with deep breathing. ABDOMEN: Soft, nontender. Bowel sounds are heard. No organomegaly noted. EXTREMITIES: 2+ peripheral pulses with no evidence of peripheral edema and no calf tenderness noted. NEUROLOGIC patient is awake, alert and oriented -3. . - Labs CBC & Chem 7: 08/23/16 06:07 08/22/16 23:00 Assessment and Plan Plan: Assessment and Plan (1) Atrial flutter with rapid ventricular response, paroxysmal in nature. Status post atrial flutter ablation, currently in normal sinus rhythm. (2) Nausea & vomiting (3) CAD (coronary artery disease) (4) Dysphagia Plan It is currently in a normal sinus rhythm, he may be able to be discharged home today from cardiology's perspective. A follow-up appointment will be made in the office with Dr. Hernandez for postprocedure follow-up, and with Dr. Penn who is her primary care psychologist experimental. DNP note has been reviewed, I agree with a documented findings and plan of care. Patient was seen and examined.
[2016-08-24 15:36] VITALS: PULSE 83
--- NOTE | 2016-08-24 15:37 | P.DS ---
Providers Date of admission: 08/17/16 13:28 Attending physician: Rich Wong Consults: 08/17/16 14:51 Consult Physician Urgent Consulting Provider: Heber Hernandez Consult Reason/Comments: afib Do you want consulting provider notified?: Yes Primary care physician: [facility] Course: This is a 70-year-old female that is admitted to the hospital with palpitation. Patient was noted to be in A. fib flutter. Patient was started on digoxin and Cardizem drip. Patient thereafter went to a electro physiology study and a flutter ablation Patient was also noted to have a TSH of 27.5. Patient was apparently on not Synthroid thereafter was discontinued in the recent few months. Patient had a successful procedure. Patient had one bleeding episode from the right groin which was access site however was stable no significant tenderness on day of discharge. Gen. appearance alert oriented times it does not appear to be distress Lungs good air movement clear to auscultation no rhonchi wheezing or crackles Heart S1-S2 heard appears to be in regular rhythm Abdomen soft nontender no organomegaly Discharge diagnosis Atrial flutter that is post ablation continue anticoagulation History of chronic migraine headaches with an acute status migrainosus we'll discharge the patient on Topamax Neuropathy Acute anxiety attack Hypothyroidism which is uncontrolled Tsh of 27.7 restarted Synthroid Patient Condition at Discharge: Fair Plan - Discharge Summary New Discharge Prescriptions: HYDROcodone/APAP 5-325MG [[place] 5-325] 1 each PO Q4HR PRN #10 tab PRN Reason: Moderate Pain Levothyroxine Sodium [Synthroid] 50 mcg PO DAILY@0630 #30 tab Topiramate [Topamax] 25 mg PO BID #60 tab Discharge Medication List Gabapentin [Neurontin] 300 mg PO TID 02/15/16 [History] Magnesium Gluconate [Magonate] 500 mg PO DAILY 02/15/16 [History] SUMAtriptan SUCCINATE [Imitrex] 50 mg PO BID PRN 02/15/16 [History] Omeprazole 20 mg PO BID 03/22/16 [History] Acetaminophen [Tylenol] 650 mg PO Q6H PRN 07/17/16 [History] Apixaban [Eliquis] 5 mg PO BID 07/17/16 [History] Sucralfate [Carafate] 1 gm PO Q6H 07/17/16 [History] Aspirin EC [Ecotrin Low Dose] 81 mg PO DAILY 08/16/16 [History] HYDROcodone/APAP 5-325MG [[place] 5-325] 1 each PO Q4HR PRN #10 tab 08/24/16 [Rx] Levothyroxine Sodium [Synthroid] 50 mcg PO DAILY@0630 #30 tab 08/24/16 [Rx] Topiramate [Topamax] 25 mg PO BID #60 tab 08/24/16 [Rx] Follow up Appointment(s)/Referral(s): Elroy Wray DO [Primary Care Provider] - 1-2 days
--- NOTE | 2016-08-28 08:58 | CDI ---
In responding to this query, please exercise your independent professional judgment. The [facility] Coding Staff and Clinical Documentation Specialists appreciate your assistance in clarifying documentation, maintaining compliance with coding guidelines, accurately documenting patients condition and capturing severity of illness. The fact that a question is asked does not imply that any particular answer is desired or expected. Communication forms are a method of clarifying documentation and are not made part of the Legal Health Record. Thank you in advance for your clarification. Last Revision, February 2015 [address] [place] [address] Documentation Clarification Form Date: 08/28/2016 8:50:00 AM From: Chiqui Alvarado/Bebe Macias Admit Date: 08/17/2016 1:28:00 PM Patient Name: Mavis Marquez Visit Number: [id number] Discharge Date: Dr. Raul Hoffman Both atrial fibrillation and atrial flutter are documented throughout the record. Patient history/risk factors: Patient was admitted with a complaint of heart racing. There is a history of paroxysmal atrial fibrillation and a permanent pacemaker. Clinical Indicators: Heart racing. EKG showed atrial flutter with rapid ventricular response. Vital Signs: T. 97.7, P 131, R. 16, BP 142-98 Treatment: IV Cardizem and one dose of IV Digoxin. Consults: Atrial flutter with rapid ventricular response. In your professional opinion, can you please clarify if the patient had atrial fibrillation or atrial flutter? Other Unable to determine If there is atrial flutter please clarify the type: >> Atypical (Type II) >> Typical (Type I) >> Other (please specify type) >> Unable to determine >> Unknown Please document in your progress notes and discharge summary in order to capture severity of illness and risk of mortality. Include clinical findings that support your diagnosis. FYI: Press F11 to launch patient chart. ___x__ Place X here if this finding has no clinical significance, is not applicable or if you are not able to provide any additional documentation. MTDD
== END 2016-08-24 16:57 | disposition home or self-care (01) | DRG 274 ==
LOC: EC 10:57 → 6SEL 13:28
PROVIDERS: ADMIT Hospitalist; ATTEND Hospitalist
PROC: 4B02XSZ Measurement of Cardiac Pacemaker, External Approach (ICD-10-PCS; 2016-08-22)
PROC: 02583ZZ Destruction of Conduction Mechanism, Percutaneous Approach (ICD-10-PCS; principal; 2016-08-22 13:15)
PROC: 02K83ZZ Map Conduction Mechanism, Percutaneous Approach (ICD-10-PCS; 2016-08-22 13:15)
PROC: 4A023FZ Measurement of Cardiac Rhythm, Percutaneous Approach (ICD-10-PCS; 2016-08-22 13:15)
PROC: 4A0234Z Measurement of Cardiac Electrical Activity, Percutaneous Approach (ICD-10-PCS; 2016-08-22 13:15)
DX: I48.92 Unspecified atrial flutter (principal); K92.2 Gastrointestinal hemorrhage, unspecified; I10 Essential (primary) hypertension; G62.9 Polyneuropathy, unspecified; F32.9 Major depressive disorder, single episode, unspecified; E03.9 Hypothyroidism, unspecified; F41.0 Panic disorder [episodic paroxysmal anxiety]; F41.1 Generalized anxiety disorder; G89.29 Other chronic pain; I25.10 Atherosclerotic heart disease of native coronary artery without angina pectoris; I25.2 Old myocardial infarction; I48.0 Paroxysmal atrial fibrillation; K21.0 Gastro-esophageal reflux disease with esophagitis; K22.4 Dyskinesia of esophagus; M15.9 Polyosteoarthritis, unspecified; M47.816 Spondylosis without myelopathy or radiculopathy, lumbar region; M79.7 Fibromyalgia; M81.0 Age-related osteoporosis without current pathological fracture; R13.10 Dysphagia, unspecified; G43.901 Migraine, unspecified, not intractable, with status migrainosus; M54.5 Low back pain; R01.1 Cardiac murmur, unspecified; F41.9 Anxiety disorder, unspecified; Z79.01 Long term (current) use of anticoagulants; Z79.899 Other long term (current) drug therapy; Z79.82 Long term (current) use of aspirin; Z95.0 Presence of cardiac pacemaker; Z87.11 Personal history of peptic ulcer disease; Z88.1 Allergy status to other antibiotic agents; Z88.2 Allergy status to sulfonamides; Z88.8 Allergy status to other drugs, medicaments and biological substances
CPT/HCPCS: 36415; 71020; 80048; 80053; 80061; 80162; 81003; 82550; 82553; 83735; 83880; 84100; 84439; 84443; 84484; 85025; 85027; 85610; 85730; 86850; 86900; 86901; 87086; 93005; 93613; 93623; 93653; 93662; 94760; 96361; 96365; 96366; 96375; 96376; 99291

== ENCOUNTER 2016-10-25 10:44 | Inpatient (IN) | payer MEDICARE, OTHER ==
[2016-10-25] MEDS ORDERED: MORPHINE SULFATE 4 MG/ML SYRINGE IV STA (11:21)
[2016-10-25] MEDS ORDERED: ONDANSETRON 4 MG/2 ML VIAL IVP STA (11:21)
[2016-10-25] MEDS ORDERED: SODIUM CHLORIDE 0.9% 1,000 ML IV STA ×2 (11:21→12:50)
[2016-10-25] MEDS ORDERED: RX INFO: IV CONTRAST WAS GIVEN 1 EACH MISC MISCELLANE PRN (11:21)
[2016-10-25] MEDS ORDERED: SODIUM CHLORIDE 0.9% 500 ML IV STA (11:21)
[2016-10-25 12:29] LABS: Appearance,Urine Cloudy (Clear); Bilirubin,Urine 1+ (Negative); Glucose,Urine (UA) Negative (Negative); Ketones,Urine 1+ (Negative); Leukocyte Esterase,Urine Negative (Negative); Mucus,Urine Rare /hpf; Nitrite,Urine Negative (Negative); PH, Urine 6.5 (5.0-8.0); Particle Count 3951; Protein,Urine 2+ (Negative); RBC,Urine <1 /hpf (0-5); Squamous Epithelial Cell,Urine 1 /hpf (0-4); UA Billing (MACRO vs. MICRO) MICRO; WBC,Urine 5 /hpf (0-5)
[2016-10-25 12:31] LABS: Basophils # (A) 0.1 k/uL (0-0.2); Basophils % (A) 1 %; CH 24.6; CHCM 29.8; Eosinophils # (A) 0.1 k/uL (0-0.7); Eosinophils % (A) 1 %; HCT 38.9 % (34.0-46.0); HDW 3.43; HGB 12.2 gm/dL (11.4-16.0); Hypochromasia Marked; Luc # (Auto) 0.27; Luc % (Auto) 3; Lymphocytes # (A) 1.5 k/uL (1.0-4.8); Lymphocytes % (A) 14 %; MCH 25.9 pg (25.0-35.0); MCHC 31.3 g/dL (31.0-37.0); Mean Platelet Volume 7.5; Monocytes # (A) 0.5 k/uL (0-1.0); Monocytes % (A) 4 %; Neutrophils # (A) 8.3 k/uL (1.3-7.7); Neutrophils % (A) 77 %; Poikilocytosis Slight; RBC 4.71 m/uL (3.80-5.40); RDW 14.6 % (11.5-15.5); WBC 10.7 k/uL (3.8-10.6); WBC (Perox) 10.44
--- NOTE | 2016-10-25 12:34 | ED ---
General Adult HPI - General Chief complaint: Nausea/Vomiting/Diarrhea Stated complaint: vomiting Time Seen by Provider: 10/25/16 10:56 Source: patient, family, RN notes reviewed, old records reviewed Mode of arrival: wheelchair Limitations: no limitations - History of Present Illness Initial comments: This is a 70-year-old female to the ER for evaluation of the. This patient presents for evaluation of bowel pain, suprapubic abdominal pain, pelvic abdominal pain. Patient also complains of diarrhea. He says extensive medical history including heart disease, extensive surgical history including and up and ectomy, patient had colonoscopy 2 years ago which she believes was normal. No blood in her stool. No nausea or vomiting. Decreased appetite. No fevers. No travel history no sick contacts. No recent hospitalizations - Related Data Home Medications Medication Instructions Recorded Confirmed Gabapentin [Neurontin] 300 mg PO TID 02/15/16 10/25/16 Magnesium Gluconate [Magonate] 500 mg PO DAILY 02/15/16 10/25/16 SUMAtriptan SUCCINATE [Imitrex] 50 mg PO BID PRN 02/15/16 10/25/16 Omeprazole 20 mg PO BID 03/22/16 10/25/16 Acetaminophen [Tylenol] 650 mg PO Q6H PRN 07/17/16 10/25/16 Apixaban [Eliquis] 5 mg PO BID 07/17/16 10/25/16 Sucralfate [Carafate] 1 gm PO Q6H 07/17/16 10/25/16 Loperamide [Imodium] 4 mg PO ONCE PRN 10/25/16 10/25/16 Previous Rx's Medication Instructions Recorded Levothyroxine Sodium [Synthroid] 50 mcg PO DAILY@0630 #30 tab 08/24/16 Allergies Allergy/AdvReac Type Severity Reaction Status Date / Time adhesive Allergy RASH FROM Verified 10/25/16 11:20 EKG STICKERS celecoxib [From Celebrex] Allergy Rash/Hives Verified 10/25/16 11:20 sertraline HCl [From Zoloft] Allergy Rash/Hives Verified 10/25/16 11:20 sulfamethoxazole Allergy Anaphylaxis Verified 10/25/16 11:20 [From Bactrim] trimethoprim [From Bactrim] Allergy Anaphylaxis Verified 10/25/16 11:20 Review of Systems ROS Statement: Those systems with pertinent positive or pertinent negative responses have been documented in the HPI. ROS Other: All systems not noted in ROS Statement are negative. Past Medical History Past Medical History: Atrial Fibrillation, Coronary Artery Disease (CAD), Chest Pain / Angina, Fibromyalgia, GERD/Reflux, GI Bleed, Hypertension, Osteoarthritis (OA), Thyroid Disorder Additional Past Medical History / Comment(s): Pt recently had pacemaker insertion at [facility] in June 2016 for syncopy/tachybrady syndrome-she was then able to have an EGD with dilation, paroxysmal AFib and has had RVR, 10/2014 pt had bradycardia thought to be from beta farshad/over tx of thyroid, rheumatic fever, heart murmur, chronic back and bilateral shoulder pain, L4 fx after a fall in 2012, severe osteoporosis, dee ear sx (stapedectomy) and has vertigo now if she tips her head back, hypothyroid, DJD, GI ulcers, esophagitis/ esophageal stricture. Pt states she has had a LA in 2002 but taylor states health officer said that it wasn't a LA. Last Myocardial Infarction Date:: 2002 History of Any Multi-Drug Resistant Organisms: None Reported Past Surgical History: Appendectomy, Cardiac Ablation, Ear Surgery, Heart Catheterization, Hysterectomy, Orthopedic Surgery, Pacemaker, Tonsillectomy Additional Past Surgical History / Comment(s): ORIF LEFT LOWER ARM. Numerous DILATATION OF ESOPHAGUS-recently done in 06/2016 at [facility], colonoscopy, pacemaker placed 07/07 at [facility], cardiac cath in 2002, bilateral stapedectomies Past Anesthesia/Blood Transfusion Reactions: Motion Sickness, Postoperative Nausea & Vomiting (PONV) Type of Cardiac Device: Permanent Pacemaker Device Placement Date:: 06/2016 Past Psychological History: Anxiety, Depression Smoking Status: Never smoker Past Alcohol Use History: None Reported Past Drug Use History: None Reported - Past Family History Brother(s) Family Medical History: Cancer Father Family Medical History: COPD, Pneumonia Additional Family Medical History / Comment(s): emphysema Mother Family Medical History: COPD, Rheumatoid Arthritis (RA) Additional Family Medical History / Comment(s): smoked, emphysema, osteoporosis. General Exam Limitations: no limitations General appearance: alert, in no apparent distress, anxious Head exam: Present: atraumatic, normocephalic, normal inspection Eye exam: Present: normal appearance, PERRL, EOMI. Absent: scleral icterus, conjunctival injection, periorbital swelling ENT exam: Present: normal exam, mucous membranes moist Neck exam: Present: normal inspection. Absent: tenderness, meningismus, lymphadenopathy Respiratory exam: Present: normal lung sounds bilaterally. Absent: respiratory distress, wheezes, rales, rhonchi, stridor Cardiovascular Exam: Present: regular rate, normal rhythm, normal heart sounds. Absent: systolic murmur, diastolic murmur, rubs, gallop, clicks GI/Abdominal exam: Present: soft, tenderness (Suprapubic, epigastric tenderness) , normal bowel sounds. Absent: distended, guarding, rebound, rigid Extremities exam: Present: normal inspection, full ROM, normal capillary refill. Absent: tenderness, pedal edema, joint swelling, calf tenderness Back exam: Present: normal inspection Neurological exam: Present: alert, oriented X3, CN II-XII intact Psychiatric exam: Present: normal affect, normal mood Skin exam: Present: warm, dry, intact, normal color. Absent: rash Course Vital Signs 10/25/16 10/25/16 10/25/16 10:48 12:01 13:21 Temperature 97.0 F L Pulse Rate 100 87 86 Respiratory 20 18 18 Rate Blood Pressure 114/74 170/77 191/84 O2 Sat by Pulse 96 Oximetry 10/25/16 14:16 Temperature Pulse Rate 91 Respiratory 18 Rate Blood Pressure 141/105 O2 Sat by Pulse 99 Oximetry - Reevaluation(s) Reevaluation #1: 10/25/16 14:14 Patient still remaining in pain, with second pain medication pain is much better controlled EKG Findings - EKG Comments: EKG Findings:: EKG shows normal sinus rhythm rate of 94, SD 128, QRS 80, QTC 470 Medical Decision Making - Medical Decision Making 62 female in the ER with symptoms of nausea vomiting, anorexia, abdominal pain. History of chronic pain, bowel pain. Patient be admitted for left shoulder replacement, symptom management and GI evaluation - Lab Data Result diagrams: 10/25/16 12:09 10/25/16 12:09 Lab Results 10/25/16 10/25/16 10/25/16 Range/Units 12:00 12:09 12:09 WBC 10.7 H (3.8-10.6) k/uL RBC 4.71 (3.80-5.40) m/uL Hgb 12.2 (11.4-16.0) gm/dL Hct 38.9 (34.0-46.0) % MCV 82.7 D (80.0-100.0) fL MCH 25.9 (25.0-35.0) pg MCHC 31.3 (31.0-37.0) g/dL RDW 14.6 (11.5-15.5) % Plt Count 506 H (150-450) k/uL Neutrophils % 77 % Lymphocytes % 14 % Monocytes % 4 % Eosinophils % 1 % Basophils % 1 % Neutrophils # 8.3 H (1.3-7.7) k/uL Lymphocytes # 1.5 (1.0-4.8) k/uL Monocytes # 0.5 (0-1.0) k/uL Eosinophils # 0.1 (0-0.7) k/uL Basophils # 0.1 (0-0.2) k/uL Hypochromasia Marked Poikilocytosis Slight PT (9.0-12.0) sec INR (<1.1) APTT (22.0-30.0) sec Sodium (137-145) mmol/L Potassium (3.5-5.1) mmol/L Chloride (98-107) mmol/L Carbon Dioxide (22-30) mmol/L Anion Gap mmol/L BUN (7-17) mg/dL Creatinine (0.52-1.04) mg/dL Est GFR (MDRD) Af Amer (>60 ml/min/1.73 sqM) Est GFR (MDRD) Non-Af (>60 ml/min/1.73 sqM) Glucose (74-99) mg/dL Plasma Lactic Acid Harjeet (0.7-2.0) mmol/L Calcium (8.4-10.2) mg/dL Phosphorus (2.5-4.5) mg/dL Magnesium (1.6-2.3) mg/dL Total Bilirubin (0.2-1.3) mg/dL AST (14-36) U/L ALT (9-52) U/L Alkaline Phosphatase (38-126) U/L Total Creatine Kinase 58 (30-135) U/L CK-MB (CK-2) 4.1 H* (0.0-2.4) ng/mL CK-MB (CK-2) Rel Index 7.1 Troponin I <0.012 (0.000-0.034) ng/mL Total Protein (6.3-8.2) g/dL Albumin (3.5-5.0) g/dL Urine Color Yellow Urine Appearance Cloudy H (Clear) Urine pH 6.5 (5.0-8.0) Ur Specific [place] 1.020 (1.001-1.035) Urine Protein 2+ H (Negative) Urine Glucose (UA) Negative (Negative) Urine Ketones 1+ H (Negative) Urine Blood Negative (Negative) Urine Nitrite Negative (Negative) Urine Bilirubin 1+ H (Negative) Urine Urobilinogen 2.0 (<2.0) mg/dL Ur Leukocyte Esterase Negative (Negative) Urine RBC <1 (0-5) /hpf Urine WBC 5 (0-5) /hpf Ur Squamous Epith Cells 1 (0-4) /hpf Hyaline Casts 17 H (0-2) /lpf Urine Mucus Rare H (None) /hpf 10/25/16 10/25/16 10/25/16 Range/Units 12:09 12:09 12:09 WBC (3.8-10.6) k/uL RBC (3.80-5.40) m/uL Hgb (11.4-16.0) gm/dL Hct (34.0-46.0) % MCV (80.0-100.0) fL MCH (25.0-35.0) pg MCHC (31.0-37.0) g/dL RDW (11.5-15.5) % Plt Count (150-450) k/uL Neutrophils % % Lymphocytes % % Monocytes % % Eosinophils % % Basophils % % Neutrophils # (1.3-7.7) k/uL Lymphocytes # (1.0-4.8) k/uL Monocytes # (0-1.0) k/uL Eosinophils # (0-0.7) k/uL Basophils # (0-0.2) k/uL Hypochromasia Poikilocytosis PT 10.9 (9.0-12.0) sec INR 1.1 (<1.1) APTT 22.1 (22.0-30.0) sec Sodium 139 (137-145) mmol/L Potassium 2.9 L* (3.5-5.1) mmol/L Chloride 96 L (98-107) mmol/L Carbon Dioxide 26 (22-30) mmol/L Anion Gap 17 mmol/L BUN 27 H (7-17) mg/dL Creatinine 1.10 H (0.52-1.04) mg/dL Est GFR (MDRD) Af Amer 60 (>60 ml/min/1.73 sqM) Est GFR (MDRD) Non-Af 49 (>60 ml/min/1.73 sqM) Glucose 112 H (74-99) mg/dL Plasma Lactic Acid Harjeet 1.9 (0.7-2.0) mmol/L Calcium 9.4 (8.4-10.2) mg/dL Phosphorus 3.3 (2.5-4.5) mg/dL Magnesium 2.2 (1.6-2.3) mg/dL Total Bilirubin 0.5 (0.2-1.3) mg/dL AST 17 (14-36) U/L ALT 20 (9-52) U/L Alkaline Phosphatase 95 (38-126) U/L Total Creatine Kinase (30-135) U/L CK-MB (CK-2) (0.0-2.4) ng/mL CK-MB (CK-2) Rel Index Troponin I (0.000-0.034) ng/mL Total Protein 7.8 (6.3-8.2) g/dL Albumin 4.4 (3.5-5.0) g/dL Urine Color Urine Appearance (Clear) Urine pH (5.0-8.0) Ur Specific [place] (1.001-1.035) Urine Protein (Negative) Urine Glucose (UA) (Negative) Urine Ketones (Negative) Urine Blood (Negative) Urine Nitrite (Negative) Urine Bilirubin (Negative) Urine Urobilinogen (<2.0) mg/dL Ur Leukocyte Esterase (Negative) Urine RBC (0-5) /hpf Urine WBC (0-5) /hpf Ur Squamous Epith Cells (0-4) /hpf Hyaline Casts (0-2) /lpf Urine Mucus (None) /hpf - Radiology Data Radiology results: report reviewed (CT abd pelvis suspicious for gallbladder disease, US gallbladder shows CBD dilation, wall dilation), image reviewed Disposition Clinical Impression: Abdominal pain, Dehydration, Hypokalemia, Choledocholithiasis Disposition: ADMITTED IP TO THIS HOSP Condition: Good Referrals: Elroy Wray DO [Primary Care Provider] - 1-2 days
[2016-10-25 12:36] LABS: MCV 82.7 fL (80.0-100.0)
[2016-10-25 12:37] LABS: Calcium 9.4 mg/dL (8.4-10.2); Magnesium 2.2 mg/dL (1.6-2.3); Phosphorous 3.3 mg/dL (2.5-4.5); Total Bilirubin 0.5 mg/dL (0.2-1.3); Total Protein 7.8 g/dL (6.3-8.2)
[2016-10-25 12:44] LABS: Potassium 2.9 mmol/L (3.5-5.1)
[2016-10-25] MEDS ORDERED: POTASSIUM BICARB-CITRIC ACID 25 MEQ TABLET.EFF PO STA (12:44)
[2016-10-25 12:55] LABS: Creatine Kinase 58 U/L (30-135)
[2016-10-25 12:57] LABS: INR 1.1 (<1.1); Partial Thromboplastin Time 22.1 sec (22.0-30.0); Prothrombin Time 10.9 sec (9.0-12.0)
[2016-10-25 13:07] LABS: Troponin I <0.012 ng/mL (0.000-0.034)
[2016-10-25 13:08] LABS: Creatine Kinase MB 4.1 ng/mL (0.0-2.4)
[2016-10-25] MEDS ORDERED: diphenhydrAMINE 50 MG/ML 1 ML VIAL IVP STA (13:22)
[2016-10-25] MEDS ORDERED: METOCLOPRAMIDE 5 MG/ML 2 ML VIAL IVP STA (13:22)
[2016-10-25] MEDS ORDERED: MORPHINE SULFATE 4 MG/ML SYRINGE IVP STA (13:22)
[2016-10-25] MEDS ORDERED: POTASSIUM CHLORIDE 20 MEQ, LIDOCAINE 2% INJ 20 MG in SODIUM CHLORIDE 0.9% 100 ML IVPB ONE (13:24)
--- NOTE | 2016-10-25 14:28 | CT ---
EXAMINATION TYPE: CT abdomen pelvis w con DATE OF EXAM: 10/25/2016 COMPARISON: NONE HISTORY: Patient complains of RUQ pain and diarrhea. CT DLP: 756 mGycm CONTRAST: CT scan of the abdomen and pelvis is performed without Oral Contrast and with IV Contrast, patient in jected with 80 mL of Visipaque 320. FINDINGS: LUNG BASES-: No visible nodule. No infiltrate. LIVER/GB: There is gallbladder hydrops at 12.3 cm in length. There is mild gallbladder wall thickenin g. Common bile duct is dilated at 1.2 cm. Distal common bile duct terminates abruptly and I suspect i ntraluminal lesion or noncalcified gallstone. Correlate clinically. Intrahepatic biliary ductal dilat ation also noted. PANCREAS: No inflammation. No distinct mass. Prominence of the hepatic duct approximately 3.9 mm. SPLEEN: No splenic enlargement. No lesion seen. ADRENALS: No nodule. No thickening. KIDNEYS/BLADDER: No hydronephrosis. No nephrolithiasis. No disctinct renal mass. Urinary bladder g rossly unremarkable. BOWEL: The appendix is not clearly visualized. Normal bowel caliber. No inflammation. There is slid ing-type hiatal hernia. GENITAL ORGANS: Hysterectomy changes noted. No adnexal masses. LYMPH NODES: No greater than 1cm abdominal or pelvic lymph nodes are appreciated. AORTA: No significant abnormality. OSSEOUS STRUCTURES: Nonacute compression fracture of L1 L4 superior endplate. OTHER: No significant additional abnormality is seen. IMPRESSION: 1. Gallbladder hydrops with the common bile duct dilatation as well as mild degree of gallbladder wal l thickening. Abrupt termination of the common bile duct may reflect intraluminal lesion or noncalcif ied gallstone.
--- NOTE | 2016-10-25 15:41 | US ---
EXAMINATION TYPE: US gallbladder DATE OF EXAM: 10/25/2016 COMPARISON: CT 10/25/2016 CLINICAL HISTORY: Pain. Nausea/Diarrhea since Sunday. RUQ pain. EXAM MEASUREMENTS: Liver Length: 13.3 cm Gallbladder Wall: 0.1 cm CBD: 1.0 cm CHD: 1.2 cm Right Kidney: 9.0 x 4.7 x 3.2 cm Pancreas: Echogenic. Main pancreatic duct = 3.0 mm. Tail not seen due to overlying bowel gas. Liver: possible slight biliary dilatation seen Gallbladder: echogenic focus seen with slight shadow = 0.9 cm. Enlarged. Evidence for sonographic Shea's sign: neg CBD: dilated. Suboptimal visualization due to overlying bowel gas CHD: dilated Right Kidney: wnl as visualized IMPRESSION: 1. The gallbladder appears distended with a small polyp or adherent stone. There is mild biliary duct al dilation and pancreatic ductal dilation. Consider ERCP or MRCP for further evaluation.
[2016-10-25 16:18] LABS: Amylase 40 U/L (30-110)
[2016-10-25] MEDS ORDERED: SUMAtriptan SUCCINATE 50 MG TAB PO PRN (17:51)
[2016-10-25] MEDS ORDERED: ACETAMINOPHEN TAB 325 MG TAB PO PRN (17:51)
[2016-10-25] MEDS: POTASSIUM CHLORIDE 20 MEQ, LIDOCAINE 2% INJ 20 MG in SODIUM CHLORIDE 0.9% 100 ML IVPB SCH ×2 (17:56→22:10)
--- NOTE | 2016-10-25 18:08 | P.HPIM ---
History of Present Illness H&P Date: 10/25/16 Chief Complaint: Abdominal pain This is a very pleasant 70-year-old patient well known from multiple presentations. Patient chronic stable medical conditions include peptic ulcer disease, esophagitis, hypertension, Levi arthritis, depression, esophageal dysmotility from esophagitis. Patient had a esophageal dilatation done by Dr. Heath out of [facility] last being done about a month ago. Patient does have a pacemaker in place Patient 5 days ago started having nausea vomiting diarrhea. Upper abdominal discomfort. Denied any fever. Patient is now down to some dry heaves and having one and 2 bowel movements a day. Still having some epigastric discomfort. Does feel weak and tired. Patient also noticed to have blood in the stools for last 3 to 4 days and takes eliquis that she cut back to once a day. Past medical history: Hypothyroid, fibromyalgia, hypertension, osteoarthritis, esophagitis with Diana infection, a cervical stricture with dilatation, anxiety, depression, buccinator for admission, peptic ulcer disease. Review of Systems GEN.: Feels rundown EYES: None HEENT: None NECK: None RESPIRATORY: None CARDIOVASCULAR: None GASTROINTESTINAL: As above GENITOURINARY: None MUSCULOSKELETAL: Pain in some joints LYMPHATICS: None HEMATOLOGICAL: None PSYCHIATRY: Anxious appearing NEUROLOGICAL: None Past Medical History Past Medical History: Atrial Fibrillation, Coronary Artery Disease (CAD), Chest Pain / Angina, Fibromyalgia, GERD/Reflux, GI Bleed, Hypertension, Osteoarthritis (OA), Thyroid Disorder Additional Past Medical History / Comment(s): Pt recently had pacemaker insertion at [facility] in June 2016 for syncopy/tachybrady syndrome-she was then able to have an EGD with dilation, paroxysmal AFib and has had RVR, 10/2014 pt had bradycardia thought to be from beta farshad/over tx of thyroid, rheumatic fever, heart murmur, chronic back and bilateral shoulder pain, L4 fx after a fall in 2012 and "recently found 2 fx thoraic vertebre-supposed to wear a brace but not with pt at time of thiks admit, severe osteoporosis, dee ear sx ( stapedectomy) and has vertigo now if she tips her head back, hypothyroid, DJD, GI ulcers, esophagitis/esophageal stricture. Pt states she has had a CA in 2002 but taylor states commercial attorney said that it wasn't a CA. Last Myocardial Infarction Date:: 2002 History of Any Multi-Drug Resistant Organisms: None Reported Past Surgical History: Appendectomy, Cardiac Ablation, Ear Surgery, Heart Catheterization, Hysterectomy, Orthopedic Surgery, Pacemaker, Tonsillectomy Additional Past Surgical History / Comment(s): ORIF LEFT LOWER ARM. Numerous DILATATION OF ESOPHAGUS-recently done in 06/2016 at [facility] pt stated bx were neg, colonoscopy, pacemaker placed 07/07 at [facility], cardiac cath in 2002, bilateral stapedectomies Past Anesthesia/Blood Transfusion Reactions: Motion Sickness, Postoperative Nausea & Vomiting (PONV) Type of Cardiac Device: Permanent Pacemaker Device Placement Date:: 06/2016 Smoking Status: Never smoker Additional Past Alcohol Use History / Comment(s): Lives alone - Past Family History Brother(s) Family Medical History: Cancer Father Family Medical History: COPD, Pneumonia Additional Family Medical History / Comment(s): emphysema Mother Family Medical History: COPD, Rheumatoid Arthritis (RA) Additional Family Medical History / Comment(s): smoked, emphysema, osteoporosis. Medications and Allergies Home Medications Medication Instructions Recorded Confirmed Type Gabapentin [Neurontin] 300 mg PO TID 02/15/16 10/25/16 History Magnesium Gluconate [Magonate] 500 mg PO DAILY 02/15/16 10/25/16 History SUMAtriptan SUCCINATE [Imitrex] 50 mg PO BID PRN 02/15/16 10/25/16 History Omeprazole 20 mg PO BID 03/22/16 10/25/16 History Acetaminophen [Tylenol] 650 mg PO Q6H PRN 07/17/16 10/25/16 History Apixaban [Eliquis] 5 mg PO BID 07/17/16 10/25/16 History Sucralfate [Carafate] 1 gm PO Q6H 07/17/16 10/25/16 History Loperamide [Imodium] 4 mg PO ONCE PRN 10/25/16 10/25/16 History Allergies Allergy/AdvReac Type Severity Reaction Status Date / Time adhesive Allergy RASH FROM Verified 10/25/16 11:20 EKG STICKERS celecoxib [From Celebrex] Allergy Rash/Hives Verified 10/25/16 11:20 sertraline HCl [From Zoloft] Allergy Rash/Hives Verified 10/25/16 11:20 sulfamethoxazole Allergy Anaphylaxis Verified 10/25/16 11:20 [From Bactrim] trimethoprim [From Bactrim] Allergy Anaphylaxis Verified 10/25/16 11:20 Physical Exam Vitals: Vital Signs Temp Pulse Pulse Resp BP BP Pulse Ox 10/25/16 17:19 96.9 F L 97 20 147/98 100 10/25/16 16:47 97.9 F 94 18 150/82 97 10/25/16 16:00 98.1 F 97 18 157/94 97 10/25/16 14:16 91 18 141/105 99 10/25/16 13:21 86 18 191/84 10/25/16 12:01 87 18 170/77 10/25/16 10:48 97.0 F L 100 20 114/74 96 Intake and Output 10/25/16 10/25/16 10/25/16 06:59 14:59 22:59 Other: Weight 48.988 kg Patient Weight 10/26/16 06:59 Weight 48.988 kg VITAL SIGNS: 96.9, 97, 20, 147/98 GENERAL: Thin built, BMI 20.4, sitting up, tired appearing. EYES: Pupils equal. Conjunctiva palel. HEENT: External appearance of nose and ears normal, oral cavity grossly normal. NECK: JVD not raised; masses not palpable. HEART: First and second heart sounds are normal; no edema. LUNGS: Respiratory rate normal; clear to auscultation. ABDOMEN: Soft, epigastric tenderness, no guarding or rigidity, liver spleen not palpable, no masses palpable. LYMPHATICS: No lymph nodes palpable in the axilla and neck. PSYCH: Alert and oriented x3; mood and affect anxious appearingl. NEUROLOGICAL: Cranial nerves grossly intact; no facial asymmetry, power and sensation grossly intact. Results CBC & Chem 7: 10/25/16 12:09 10/25/16 12:09 Labs: White count 10.7, hemoglobin 12.2, potassium 2.9, BNP 47, creatinine 1.10 Gallbladder somewhat distended, with questionable stone Assessment and Plan Plan: Assessment -Acute GI bleed in a patient who takes Eliquis with known history of peptic ulcer disease now having blood per rectum and epigastric pain and a recent history history of esophageal dilatation -Peptic ulcer disease -Chronic esophagitis -Essential hypertension -Primary osteoarthritis of multiple joints bilateral -depression not otherwise specified Hypothyroid -Esophageal dysmotility -Anxiety not otherwise specified -Upper abdominal pain with ultrasound suggestive of gallbladder hydrops/with questionable gallstones -Hypokalemia from diarrhea -Paroxysmal atrial flutter with a pacemaker in place, chronically on Eliquis Plan: At this point. Patient Eliquis. With the patient on clear liquid diet. Hemoglobin will be monitored. GI will be consulted. We'll also get a surgical opinion based on ultrasound findings. Care was discussed with the patient and questions were answered
[2016-10-25] MEDS: MORPHINE SULFATE 4 MG/ML SYRINGE IVP PRN ×2 (18:14→22:08)
[2016-10-25] MEDS: SUCRALFATE 1 GM TAB PO SCH (18:23)
[2016-10-25] MEDS: GABAPENTIN 300 MG CAP PO SCH ×2 (18:23→22:09)
[2016-10-25] MEDS ORDERED: NON-FORMULARY DRUG (Omeprazole [Omeprazole] 20 MG) PO SCH (21:00)
[2016-10-26] MEDS: SUCRALFATE 1 GM TAB PO SCH ×4 (00:20→19:22)
[2016-10-26] MEDS: POTASSIUM CHLORIDE 20 MEQ, LIDOCAINE 2% INJ 20 MG in SODIUM CHLORIDE 0.9% 100 ML IVPB SCH (00:20)
[2016-10-26] MEDS: MORPHINE SULFATE 4 MG/ML SYRINGE IVP PRN ×3 (01:56→09:23)
[2016-10-26] MEDS: LEVOTHYROXINE 50 MCG TAB PO SCH (05:40)
[2016-10-26 08:03] LABS: Anion Gap 7 mmol/L; Blood Urea Nitrogen 13 mg/dL (7-17); Calcium 8.2 mg/dL (8.4-10.2); Carbon Dioxide 23 mmol/L (22-30); Chloride 110 mmol/L (98-107); Glucose 88 mg/dL (74-99); Non-African American GFR(MDRD) 60 (>60 ml/min/1.73 sqM); Potassium 3.8 mmol/L (3.5-5.1); Sodium 140 mmol/L (137-145)
[2016-10-26] MEDS: PANTOPRAZOLE 40 MG/10 ML VIAL IVP SCH (08:57)
[2016-10-26] MEDS: GABAPENTIN 300 MG CAP PO SCH ×3 (08:57→20:16)
[2016-10-26] MEDS ORDERED: ENOXAPARIN 40 MG/0.4 ML SYRINGE SQ SCH (09:00)
[2016-10-26] MEDS: SODIUM CHLORIDE 0.9% 1,000 ML IV SCH ×2 (09:23→20:18)
[2016-10-26 10:47] VITALS: BMI 20.4
[2016-10-26] MEDS ORDERED: MORPHINE SULFATE 2 MG/ML SYRINGE IVP PRN ×2 (11:22→14:16)
--- NOTE | 2016-10-26 11:41 | P.CRDCN ---
History of Present Illness Consult date: 10/26/16 Consult reason: pre-op evaluation History of present illness: 70-year-old lady with history of atrial fibrillation and sick sinus syndrome status post permanent pacemaker who presents to hospital with the nausea and vomiting and abdominal discomfort and had been diagnosed with gallstones. She is to undergo cholecystectomy and I have been asked to see her for preoperative cardiac evaluation. Patient is currently free of chest pain difficulty in breathing palpitations dizziness or syncope. An echocardiogram I performed she has normal LV systolic function. Patient was on an anticoagulant the last 2 she took was on Sunday morning. Patient has been off the anticoagulants for more than 48 hours hence it is safe to proceed with surgery at this time. Patient is an acceptable risk candidate for surgery under anesthesia. Please resume the anticoagulant postoperatively as is feasible from surgical standpoint Review of Systems Constitutional: Denies chills. Denies fever. Eyes: Denies blurred vision. Denies pain. Ears, nose, mouth and throat: Denies headache. Denies sore throat. Cardiovascular: Denies chest pain. Denies shortness of breath. Respiratory: Denies cough. Gastrointestinal: Has abdominal pain. Denies diarrhea. Denies nausea. had vomiting. Musculoskeletal: Denies myalgias. Integumentary: Denies pruritus. Denies rash. Neurological: Denies numbness. Denies weakness. Psychiatric: Denies anxiety. Denies depression. Endocrine: Denies fatigue. Denies weight change. Genitourinary: Denies burning, hematuria, frequency of urination. Hematological: No anemia or excess bleeding. Past Medical History Past Medical History: Atrial Fibrillation, Coronary Artery Disease (CAD), Chest Pain / Angina, Fibromyalgia, GERD/Reflux, GI Bleed, Hypertension, Osteoarthritis (OA), Thyroid Disorder Additional Past Medical History / Comment(s): Pt recently had pacemaker insertion at [facility] in June 2016 for syncopy/tachybrady syndrome-she was then able to have an EGD with dilation, paroxysmal AFib and has had RVR, 10/2014 pt had bradycardia thought to be from beta farshad/over tx of thyroid, rheumatic fever, heart murmur, chronic back and bilateral shoulder pain, L4 fx after a fall in 2012 and "recently found 2 fx thoraic vertebre-supposed to wear a brace but not with pt at time of thiks admit, severe osteoporosis, dee ear sx ( stapedectomy) and has vertigo now if she tips her head back, hypothyroid, DJD, GI ulcers, esophagitis/esophageal stricture. Pt states she has had a MT in 2002 but taylor states yarn man said that it wasn't a MT. Last Myocardial Infarction Date:: 2002 History of Any Multi-Drug Resistant Organisms: None Reported Past Surgical History: Appendectomy, Cardiac Ablation, Ear Surgery, Heart Catheterization, Hysterectomy, Orthopedic Surgery, Pacemaker, Tonsillectomy Additional Past Surgical History / Comment(s): ORIF LEFT LOWER ARM. Numerous DILATATION OF ESOPHAGUS-recently done in 06/2016 at [facility] pt stated bx were neg, colonoscopy, pacemaker placed 07/07 at [facility], cardiac cath in 2002, bilateral stapedectomies Past Anesthesia/Blood Transfusion Reactions: Motion Sickness, Postoperative Nausea & Vomiting (PONV) Type of Cardiac Device: Permanent Pacemaker Device Placement Date:: 06/2016 Smoking Status: Never smoker Additional Past Alcohol Use History / Comment(s): Lives alone - Past Family History Brother(s) Family Medical History: Cancer Father Family Medical History: COPD, Pneumonia Additional Family Medical History / Comment(s): emphysema Mother Family Medical History: COPD, Rheumatoid Arthritis (RA) Additional Family Medical History / Comment(s): smoked, emphysema, osteoporosis. Medications and Allergies Home Medications Medication Instructions Recorded Confirmed Type Gabapentin [Neurontin] 300 mg PO TID 02/15/16 10/25/16 History Magnesium Gluconate [Magonate] 500 mg PO DAILY 02/15/16 10/25/16 History SUMAtriptan SUCCINATE [Imitrex] 50 mg PO BID PRN 02/15/16 10/25/16 History Omeprazole 20 mg PO BID 03/22/16 10/25/16 History Acetaminophen [Tylenol] 650 mg PO Q6H PRN 07/17/16 10/25/16 History Apixaban [Eliquis] 5 mg PO BID 07/17/16 10/25/16 History Sucralfate [Carafate] 1 gm PO Q6H 07/17/16 10/25/16 History Loperamide [Imodium] 4 mg PO ONCE PRN 10/25/16 10/25/16 History Allergies Allergy/AdvReac Type Severity Reaction Status Date / Time adhesive Allergy RASH FROM Verified 10/25/16 11:20 EKG STICKERS celecoxib [From Celebrex] Allergy Rash/Hives Verified 10/25/16 11:20 sertraline HCl [From Zoloft] Allergy Rash/Hives Verified 10/25/16 11:20 sulfamethoxazole Allergy Anaphylaxis Verified 10/25/16 11:20 [From Bactrim] trimethoprim [From Bactrim] Allergy Anaphylaxis Verified 10/25/16 11:20 Physical Exam Vitals: Vital Signs Temp Pulse Pulse Resp BP BP BP 10/26/16 07:15 98.3 F 89 18 117/83 10/25/16 23:00 97.7 F 92 20 129/68 10/25/16 17:19 96.9 F L 97 20 147/98 10/25/16 16:47 97.9 F 94 18 150/82 10/25/16 16:00 98.1 F 97 18 157/94 10/25/16 14:16 91 18 141/105 10/25/16 13:21 86 18 191/84 10/25/16 12:01 87 18 170/77 Pulse Ox 10/26/16 07:15 10/25/16 23:00 96 10/25/16 17:19 100 10/25/16 16:47 97 10/25/16 16:00 97 10/25/16 14:16 99 10/25/16 13:21 10/25/16 12:01 Intake and Output 10/25/16 10/26/16 10/26/16 22:59 06:59 14:59 Intake Total 600 500 Balance 600 500 Intake: Intake, IV Titration 400 Amount Potassium Chloride 20 meq 200 Lidocaine 2% Inj 20 mg In Sodium Chloride 0.9% 100 ml @ 55.5 mls/hr IVPB ONCE ONE Rx#:[id number] Potassium Chloride 20 meq 200 Lidocaine 2% Inj 20 mg In Sodium Chloride 0.9% 100 ml @ 55.5 mls/hr IVPB Q2H [facility] Rx#:[id number] Oral 600 100 Other: Voiding Method Toilet # Voids 3 Weight 48.988 kg Patient Weight 10/27/16 06:59 Weight 48.988 kg General: The patient is awake and alert, in no distress, and does not appear acutely ill. Skin: Skin is warm and dry and no rashes or lesions are noted. Eye: Pupils are equal, round and reactive to light, extra-ocular movements are intact; there is normal conjunctiva bilaterally. Ears, nose, mouth and throat: There are moist mucous membranes and no oral lesions. Neck: The neck is supple, there is no tenderness or JVD. Cardiovascular: Irregular systolic murmur at the left lower sternal border Respiratory: Lungs are clear to auscultation, respirations are non-labored, breath sounds are equal. Gastrointestinal: Soft, non-distended, non-tender abdomen without masses or organomegaly noted. There is no rebound or guarding present. Bowel sounds are unremarkable. Back: There is no tenderness to palpation in the midline. There is no obvious deformity. Musculoskeletal: Normal ROM, no tenderness, There is no pedal edema. There is no calf tenderness or swelling. Extremities: No edema. Vascular: Femoral pulse is normal. Posterior tibial pulses are normal .Dorsalis pedis is palpable. Neurological: CN II-XII intact. There are no obvious motor or sensory deficits. Speech is normal. Psychiatric: Cooperative, appropriate mood & affect, normal judgment. Results 10/25/16 12:09 10/26/16 07:14 Cardiac Enzymes 10/25/16 10/25/16 Range/Units 12:09 12: AST 17 (14-36) U/L CK-MB (CK-2) 4.1 H* (0.0-2.4) ng/mL Troponin I <0.012 (0.000-0.034) ng/mL Coagulation 10/25/16 Range/Units 12:09 PT 10.9 (9.0-12.0) sec APTT 22.1 (22.0-30.0) sec CBC 10/25/16 Range/Units 12:09 WBC 10.7 H (3.8-10.6) k/uL RBC 4.71 (3.80-5.40) m/uL Hgb 12.2 (11.4-16.0) gm/dL Hct 38.9 (34.0-46.0) % Plt Count 506 H (150-450) k/uL Comprehensive Metabolic Panel 10/25/16 10/26/16 Range/Units 12:09 07:14 Sodium 139 140 (137-145) mmol/L Potassium 2.9 L* 3.8 (3.5-5.1) mmol/L Chloride 96 L 110 H (98-107) mmol/L Carbon Dioxide 26 23 (22-30) mmol/L BUN 27 H 13 (7-17) mg/dL Creatinine 1.10 H 0.93 (0.52-1.04) mg/dL Glucose 112 H 88 (74-99) mg/dL Calcium 9.4 8.2 L (8.4-10.2) mg/dL AST 17 (14-36) U/L ALT 20 (9-52) U/L Alkaline Phosphatase 95 (38-126) U/L Total Protein 7.8 (6.3-8.2) g/dL Albumin 4.4 (3.5-5.0) g/dL Current Medications Generic Name Dose Route Start Last Admin Trade Name Freq PRN Reason Stop Dose Admin Acetaminophen 650 mg 10/25/16 17:51 Tylenol Tab PO Q6H PRN mild Pain Enoxaparin Sodium 40 mg 10/26/16 09:00 10/26/16 08:57 Lovenox SQ 40 mg DAILY INOCENCIO Administration Gabapentin 300 mg 10/25/16 18:00 10/26/16 08:57 Neurontin PO 300 mg TID INOCENCIO Administration Sodium Chloride 1,000 mls @ 50 mls/hr 10/26/16 08:45 10/26/16 09:23 Saline 0.9% IV 50 mls/hr .Q20H INOCENCIO Administration Levothyroxine Sodium 50 mcg 10/26/16 06:30 10/26/16 05:40 Synthroid PO 50 mcg DAILY@0630 INOCENCIO Administration Miscellaneous Information 1 each 10/25/16 11:21 10/25/16 13:18 Rx Info: Iv Contrast Was Given MISCELLANE 10/27/16 11:21 1 each DAILY PRN Administration Per Protocol Morphine Sulfate 2 mg 10/26/16 11:26 Morphine Sulfate (Inj) IVP Q3H PRN Pain Ondansetron HCl 4 mg 10/25/16 15:52 Zofran IVP Q6HR PRN Nausea And Vomiting Pantoprazole Sodium 40 mg 10/26/16 09:00 10/26/16 08:57 Protonix IVP 40 mg DAILY INOCENCIO Administration Sucralfate 1 gm 10/25/16 18:00 10/26/16 05:40 Carafate PO 1 gm Q6HR INOCENCIO Administration Sumatriptan Succinate 50 mg 10/25/16 17:51 10/26/16 01:19 Imitrex PO 50 mg BID PRN Administration Migraine Headache Intake and Output 10/25/16 10/26/16 10/26/16 22:59 06:59 14:59 Intake Total 600 500 Balance 600 500 Intake: Intake, IV Titration 400 Amount Potassium Chloride 20 meq 200 Lidocaine 2% Inj 20 mg In Sodium Chloride 0.9% 100 ml @ 55.5 mls/hr IVPB ONCE ONE Rx#:[id number] Potassium Chloride 20 meq 200 Lidocaine 2% Inj 20 mg In Sodium Chloride 0.9% 100 ml @ 55.5 mls/hr IVPB Q2H [facility] Rx#:[id number] Oral 600 100 Other: Voiding Method Toilet # Voids 3 Weight 48.988 kg Patient Weight 10/27/16 06:59 Weight 48.988 kg 10/25/16 12:09 10/26/16 07:14 EKG Interpretations (text) Normal sinus rhythm Assessment and Plan Plan: Preop cardiac evaluation History of atrial fibrillation status post ablation 6 sinus syndrome status post permanent pacemaker Abdominal pain secondary to gallstones Patient is an acceptable risk candidate for surgery under anesthesia echocardiogram showed normal LV function patient has stopped the anticoagulant 48 hours ago please resume the anticoagulant postoperatively as is feasible from surgical standpoint
[2016-10-26] MEDS ORDERED: ACETAMINOPHEN IV (For NPO) 1,000 MG in EMPTY BAG 1 BAG IVPB ONE (11:50)
--- NOTE | 2016-10-26 12:04 | ECHOF ---
Referral Reason:pre op MEASUREMENTS -------- HEIGHT: 154.9 cm WEIGHT: 49.0 kg BP: 117/83 RVIDd: 3.0 cm (< 3.3) IVSd: 1.0 cm (0.6 - 1.1) LVIDd: 4.4 cm (3.9 - 5.3) LVPWd: 1.0 cm (0.6 - 1.1) IVSs: 1.4 cm LVIDs: 3.1 cm LVPWs: 1.3 cm LA Diam: 3.3 cm (2.7 - 3.8) LAESV Index (A-L): 28.26 ml/m Ao Diam: 2.9 cm (2.0 - 3.7) AV Cusp: 2.1 cm (1.5 - 2.6) MV EXCURSION: 17.961 mm (> 18.000) MV EF SLOPE: 106 mm/s (70 - 150) EPSS: 0.1 cm MV E Jon: 0.80 m/s MV DecT: 180 ms MV A Jon: 0.84 m/s MV E/A Ratio: 0.95 AR PHT: 383 ms RAP: 5.00 mmHg RVSP: 33.95 mmHg FINDINGS -------- Sinus rhythm. Pacerwire seen in RV and RA. This was a technically good study. The left ventricular size is normal. Left ventricular wall thickness is normal. Overall left ventricular systolic function is normal with, an EF between 60 - 65 %. The right ventricle is normal in size and function. Normal LA size by volume 22+/-6 ml/m2. The right atrium is normal in size. Aortic valve is trileaflet and is mildly thickened. There is mild aortic regurgitation. Mild mitral annular calcification present. Mild mitral regurgitation is present. Mild tricuspid regurgitation present. Right ventricular systolic pressure is normal at < 35 mmHg. The pulmonic valve is normal. The aortic root size is normal. The inferior vena cava is mildly dilated. The pericardium is normal. CONCLUSIONS -------- 1. Sinus rhythm. 2. Aortic valve is trileaflet and is mildly thickened. 3. There is mild aortic regurgitation. 4. Mild mitral annular calcification present. 5. Mild mitral regurgitation is present. 6. Mild tricuspid regurgitation present. 7. Right ventricular systolic pressure is normal at < 35 mmHg. 8. The pulmonic valve is normal. 9. The aortic root size is normal. 10. The inferior vena cava is mildly dilated. 11. The pericardium is normal. 12. Pacerwire seen in RV and RA. 13. This was a technically good study. 14. The left ventricular size is normal. 15. Left ventricular wall thickness is normal. 16. Overall left ventricular systolic function is normal with, an EF between 60 - 65 %. 17. The right ventricle is normal in size and function. 18. Normal LA size by volume 22+/-6 ml/m2. 19. The right atrium is normal in size. PAINTER ASSISTANT: Kim Galicia RDCS
--- NOTE | 2016-10-26 12:39 | P.HPADDEND ---
H&P Addendum H&P Addendum Date: 10/26/16 Patient seen and evaluated. Patient is cleared from cardiology standpoint to pursue surgery. She has been off Eliquis for more than 48 hours. She reports persistent right upper quadrant abdominal pain. Findings consistent with hydrops cholecystitis. Will proceed with laparoscopic cholecystectomy.
--- NOTE | 2016-10-26 12:57 | P.GSCN ---
History of Present Illness Consult date: 10/26/16 Reason for Consult: Nausea vomiting abdominal pain History of present illness: A 70-year-old female presented on the day of admission to the emergency room to be evaluated for chief complaint of developing abdominal pain frequent loose stools. Patient stated the symptoms started on Sunday. Patient stated after a bowel movement on Sunday noted bright red light in the toilet bowl. Patient stated she decreased her dose of elquis from twice a day to once a day due to the concern of the bloody bowel movement. Patient states she's on elquis for history of paroxysmal atrial fibrillation. Patient stated that the symptoms continue to persist the loose stool did not get any better became concerned presented on the day of admission to the emergency room to be evaluated for the above-mentioned symptoms. Patient states that she did have a colonoscopy within the last 2-3 years was told that there were no acute findings. Currently patient is denying any chest pain dizziness or lightheadedness or shortness of breath. Patient states continues to have abdominal pain states it's across the entire abdomen when questioning. Patient does give a history of having sick sinus syndrome status post permanent pacemaker done at [facility] in [facility]. Patient states she was at [facility] in [place] having an outpatient esophageal dilatation done by Dr. null. Patient stated that she developed after the procedure bradycardia evidence of sick sinus syndrome was referred over to cardiology who advised patient to have a permanent pacemaker placed in which the patient elected to proceed this was reportedly done within the last 4 weeks. Patient states that her last stress test was with about 2-3 years ago and was told there were no acute findings. Patient gives no history of having a prior myocardial infarction patient did have a computed tomography scan abdomen and pelvis done in the emergency room in summary it showed common bile duct dilatation with mild degree of gallbladder wall thickening ultrasound of the gallbladder showed gallbladder appeared to be distended with a small polyp or stone. Mild biliary duct dilatation pancreatic duct dilatation consider ERCP or MRCP for further evaluation Patient has a past medical history significant for migraine, fibromyalgia, hypertension, esophagitis, depressive disorder, peptic ulcer disease, osteoarthritis lumbar spine paroxysmal atrial fibrillation Past surgical history patient has had numerous dilatations of the esophagus most recently done in June at [facility], biopsies were negative, permanent pacemaker placed in June 2016 at [facility] heart catheterization in 10 07, tonsillectomy, cardiac ablation, hysterectomy Patient had an echocardiogram done on October 26 it did show left ventricular systolic function normal with an EF between 60 and 65%. Review of Systems Essentially unremarkable except as mentioned in the present illness Past Medical History Past Medical History: Atrial Fibrillation, Coronary Artery Disease (CAD), Chest Pain / Angina, Fibromyalgia, GERD/Reflux, GI Bleed, Hypertension, Osteoarthritis (OA), Thyroid Disorder Additional Past Medical History / Comment(s): Pt recently had pacemaker insertion at [facility] in June 2016 for syncopy/tachybrady syndrome-she was then able to have an EGD with dilation, paroxysmal AFib and has had RVR, 10/2014 pt had bradycardia thought to be from beta farshad/over tx of thyroid, rheumatic fever, heart murmur, chronic back and bilateral shoulder pain, L4 fx after a fall in 2012 and "recently found 2 fx thoraic vertebre-supposed to wear a brace but not with pt at time of thiks admit, severe osteoporosis, dee ear sx ( stapedectomy) and has vertigo now if she tips her head back, hypothyroid, DJD, GI ulcers, esophagitis/esophageal stricture. Pt states she has had a FL in 2002 but taylor states truck service manager said that it wasn't a FL. Last Myocardial Infarction Date:: 2002 History of Any Multi-Drug Resistant Organisms: None Reported Past Surgical History: Appendectomy, Cardiac Ablation, Ear Surgery, Heart Catheterization, Hysterectomy, Orthopedic Surgery, Pacemaker, Tonsillectomy Additional Past Surgical History / Comment(s): ORIF LEFT LOWER ARM. Numerous DILATATION OF ESOPHAGUS-recently done in 06/2016 at [facility] pt stated bx were neg, colonoscopy, pacemaker placed 07/07 at [facility], cardiac cath in 2002, bilateral stapedectomies Past Anesthesia/Blood Transfusion Reactions: Motion Sickness, Postoperative Nausea & Vomiting (PONV) Type of Cardiac Device: Permanent Pacemaker Device Placement Date:: 06/2016 Smoking Status: Never smoker Additional Past Alcohol Use History / Comment(s): Lives alone - Past Family History Brother(s) Family Medical History: Cancer Father Family Medical History: COPD, Pneumonia Additional Family Medical History / Comment(s): emphysema Mother Family Medical History: COPD, Rheumatoid Arthritis (RA) Additional Family Medical History / Comment(s): smoked, emphysema, osteoporosis. Medications and Allergies Home Medications Medication Instructions Recorded Confirmed Type Gabapentin [Neurontin] 300 mg PO TID 02/15/16 10/25/16 History Magnesium Gluconate [Magonate] 500 mg PO DAILY 02/15/16 10/25/16 History SUMAtriptan SUCCINATE [Imitrex] 50 mg PO BID PRN 02/15/16 10/25/16 History Omeprazole 20 mg PO BID 03/22/16 10/25/16 History Acetaminophen [Tylenol] 650 mg PO Q6H PRN 07/17/16 10/25/16 History Apixaban [Eliquis] 5 mg PO BID 07/17/16 10/25/16 History Sucralfate [Carafate] 1 gm PO Q6H 07/17/16 10/25/16 History Loperamide [Imodium] 4 mg PO ONCE PRN 10/25/16 10/25/16 History Allergies Allergy/AdvReac Type Severity Reaction Status Date / Time adhesive Allergy RASH FROM Verified 10/25/16 11:20 EKG STICKERS celecoxib [From Celebrex] Allergy Rash/Hives Verified 10/25/16 11:20 sertraline HCl [From Zoloft] Allergy Rash/Hives Verified 10/25/16 11:20 sulfamethoxazole Allergy Anaphylaxis Verified 10/25/16 11:20 [From Bactrim] trimethoprim [From Bactrim] Allergy Anaphylaxis Verified 10/25/16 11:20 Surgical - Exam Vital Signs Temp Pulse Resp BP Pulse Ox 97.0 F L 100 20 114/74 96 10/25/16 10:48 10/25/16 10:48 10/25/16 10:48 10/25/16 10:48 10/25/16 10:48 GENERAL APPEARANCE: 70-year-old female patient is alert, oriented, in no acute distress. Chief complaint this morning is migraine headache VITAL SIGNS: Reviewed HEENT: Head is normocephalic and atraumatic. Pupils are equal and reactive. The nares are patent. Oropharynx is clear without lesions. NECK: Supple without lymphadenopathy. Traches midline. HEART: S1, S2. Regular rate and rhythm. Monitor showing sinus rhythm rate control denying any chest pain when questioning LUNGS: No crackles or wheezes are heard. Adequate air movement bilaterally ABDOMEN: Soft, diffuse tenderness, nondistended with good bowel sounds. No peritoneal signs. No palpable organomegaly or masses. Reports a sensation of nausea no active emesis EXTREMITIES: Normal skin color and turgor. No cyanosis, rash, ulceration, clubbing or edema. Radial pedal pulses are 2/4 bilaterally. NEUROLOGICAL: No focal deficits. Strength and sensation are grossly intact. Results - Labs 10/25/16 12:09 10/26/16 07:14 Abnormal Lab Results - Last 24 Hours (Table) 10/25/16 10/25/16 10/25/16 Range/Units 12:00 12:09 12:09 WBC 10.7 H (3.8-10.6) k/uL Plt Count 506 H (150-450) k/uL Neutrophils # 8.3 H (1.3-7.7) k/uL Potassium (3.5-5.1) mmol/L Chloride (98-107) mmol/L BUN (7-17) mg/dL Creatinine (0.52-1.04) mg/dL Glucose (74-99) mg/dL Calcium (8.4-10.2) mg/dL CK-MB (CK-2) 4.1 H* (0.0-2.4) ng/mL Urine Appearance Cloudy H (Clear) Urine Protein 2+ H (Negative) Urine Ketones 1+ H (Negative) Urine Bilirubin 1+ H (Negative) Hyaline Casts 17 H (0-2) /lpf Urine Mucus Rare H (None) /hpf 10/25/16 10/26/16 Range/Units 12:09 07:14 WBC (3.8-10.6) k/uL Plt Count (150-450) k/uL Neutrophils # (1.3-7.7) k/uL Potassium 2.9 L* (3.5-5.1) mmol/L Chloride 96 L 110 H (98-107) mmol/L BUN 27 H (7-17) mg/dL Creatinine 1.10 H (0.52-1.04) mg/dL Glucose 112 H (74-99) mg/dL Calcium 8.2 L (8.4-10.2) mg/dL CK-MB (CK-2) (0.0-2.4) ng/mL Urine Appearance (Clear) Urine Protein (Negative) Urine Ketones (Negative) Urine Bilirubin (Negative) Hyaline Casts (0-2) /lpf Urine Mucus (None) /hpf Microbiology - Last 24 Hours (Table) 10/25/16 12:00 Urine Culture - Preliminary Urine,Clean Catch Diabetes panel 10/25/16 10/26/16 Range/Units 12:09 07:14 Sodium 139 140 (137-145) mmol/L Potassium 2.9 L* 3.8 (3.5-5.1) mmol/L Chloride 96 L 110 H (98-107) mmol/L Carbon Dioxide 26 23 (22-30) mmol/L BUN 27 H 13 (7-17) mg/dL Creatinine 1.10 H 0.93 (0.52-1.04) mg/dL Glucose 112 H 88 (74-99) mg/dL Calcium 9.4 8.2 L (8.4-10.2) mg/dL AST 17 (14-36) U/L ALT 20 (9-52) U/L Alkaline Phosphatase 95 (38-126) U/L Total Protein 7.8 (6.3-8.2) g/dL Albumin 4.4 (3.5-5.0) g/dL Calcium panel 10/25/16 10/26/16 Range/Units 12:09 07:14 Calcium 9.4 8.2 L (8.4-10.2) mg/dL Phosphorus 3.3 (2.5-4.5) mg/dL Albumin 4.4 (3.5-5.0) g/dL Pituitary panel 10/25/16 10/26/16 Range/Units 12:09 07:14 Sodium 139 140 (137-145) mmol/L Potassium 2.9 L* 3.8 (3.5-5.1) mmol/L Chloride 96 L 110 H (98-107) mmol/L Carbon Dioxide 26 23 (22-30) mmol/L BUN 27 H 13 (7-17) mg/dL Creatinine 1.10 H 0.93 (0.52-1.04) mg/dL Glucose 112 H 88 (74-99) mg/dL Calcium 9.4 8.2 L (8.4-10.2) mg/dL Adrenal panel 10/25/16 10/26/16 Range/Units 12:09 07:14 Sodium 139 140 (137-145) mmol/L Potassium 2.9 L* 3.8 (3.5-5.1) mmol/L Chloride 96 L 110 H (98-107) mmol/L Carbon Dioxide 26 23 (22-30) mmol/L BUN 27 H 13 (7-17) mg/dL Creatinine 1.10 H 0.93 (0.52-1.04) mg/dL Glucose 112 H 88 (74-99) mg/dL Calcium 9.4 8.2 L (8.4-10.2) mg/dL Total Bilirubin 0.5 (0.2-1.3) mg/dL AST 17 (14-36) U/L ALT 20 (9-52) U/L Alkaline Phosphatase 95 (38-126) U/L Total Protein 7.8 (6.3-8.2) g/dL Albumin 4.4 (3.5-5.0) g/dL Assessment and Plan Plan: Impression Present on admission right upper quadrant abdominal pain suspect due to gallbladder distended findings consistent with hydrops cholecystitis Echocardiogram 10/26/2016 left ventricular systolic function normal with an EF between 60 and 65% no valvular heart disease History of paroxysmal atrial fibrillation off elquist for the past 48 hours History of sick sinus syndrome status post permanent pacemaker recent June 2016 History of esophageal stricture with a recent EGD with dilatation done in October 2014 History migraines Plan Pain control IV fluid for hydration Scheduled for laparoscopic cholecystectomy today by Dr. Guerrero [place] meds as appropriate Will restart elquis post procedure when appropriate Further recommendations pending will Thank you for allowing us to participate in the plan of care The above impression and plan of care have been discussed and directed by signing physician. China Edgar nurse practitioner acting as scribe for signing physician.
[2016-10-26] MEDS: MORPHINE SULFATE 2 MG/ML SYRINGE IVP PRN ×2 (13:28→21:47)
[2016-10-26] MEDS: ONDANSETRON 4 MG/2 ML VIAL IVP PRN (14:12)
[2016-10-26] MEDS ORDERED: MORPHINE SULFATE 2 MG/ML SYRINGE IVP STA (14:16)
[2016-10-26] MEDS ORDERED: IV FLUID CONTINUATION 1,000 ML IV ONE (15:45)
[2016-10-26] MEDS ORDERED: fentaNYL (PF) 50 MCG/ML 2 ML AMP ONE (16:44)
[2016-10-26] MEDS ORDERED: PROPOFOL 10 MG/ML 20 ML VIAL IV ONE (16:44)
[2016-10-26] MEDS ORDERED: PHENYLEPHRINE-0.9% NACL SYG 1 MG/10 ML SYRINGE ONE (16:44)
[2016-10-26] MEDS ORDERED: SUCCINYLCHOLINE CHLORIDE 100 MG/5 ML SYR IV ONE (16:44)
[2016-10-26] MEDS ORDERED: LIDOCAINE 1% INJ 10MG/ML (20 ML MDV) ONE (16:44)
[2016-10-26] MEDS ORDERED: MIDAZOLAM 2 MG/2 ML VIAL ONE (16:44)
[2016-10-26] MEDS ORDERED: GLYCOPYRROLATE 0.2 MG/ML 2 ML VIAL ONE (16:44)
[2016-10-26] MEDS ORDERED: ROCURONIUM BROMIDE 10 MG/ML 10 ML VIAL IV ONE (16:44)
[2016-10-26] MEDS ORDERED: NEOSTIGMINE 1 MG/ML 10 ML VIAL ONE (16:44)
[2016-10-26] MEDS ORDERED: ceFAZolin 1 GM in SODIUM CHLORIDE 0.9% 100 ML IVPB ONE (16:47)
[2016-10-26] MEDS ORDERED: BUPIVACAIN-EPI 0.5%-1:200,000 30 ML VIAL SQ ONE ×2 (16:53→17:08)
[2016-10-26] MEDS ORDERED: SODIUM CHLORIDE 0.9% 50 ML with ceFAZolin 1,000 MG IV ONE ×2 (17:00)
[2016-10-26] MEDS ORDERED: LACTATED RINGERS 1,000 ML IV ONE (17:10)
--- NOTE | 2016-10-26 17:53 | P.OP ---
Date of Procedure: 10/26/16 Preoperative Diagnosis: Postoperative Diagnosis: Procedure(s) Performed: Implants: Indications for Procedure: Operative Findings: Description of Procedure: SURGEON: BONI LIMA MD RN INTEGRATED: None. PREOPERATIVE DIAGNOSES: 1. Hydrops cholecystitis. 2. History of pacemaker. 3. Gastroesophageal reflux disease. 4. Hypothyroidism. 5. Atrial fibrillation. 6. Fibromyalgia. 7. Hypertensive heart disease with cardiomyopathy. 8. Coronary artery disease. 9. History of angina. 10. Chronic anticoagulant use. 11. Right upper quadrant abdominal pain. 12. Leukocytosis. POSTOPERATIVE DIAGNOSES: 1. Hydrops cholecystitis. 2. History of pacemaker. 3. Gastroesophageal reflux disease. 4. Hypothyroidism. 5. Atrial fibrillation. 6. Fibromyalgia. 7. Hypertensive heart disease with cardiomyopathy. 8. Coronary artery disease. 9. History of angina. 10. Chronic anticoagulant use. 11. Right upper quadrant abdominal pain. 12. Leukocytosis. 13. Pelvic adhesions greater omentum to abdominal wall. OPERATION: Laparoscopic cholecystectomy ANESTHESIA: General with 30 mL 0.50% Marcaine with epinephrine. ESTIMATED BLOOD LOSS: 5 mL. SPECIMENS REMOVED: Gallbladder. COMPLICATIONS: None. INDICATIONS: The patient is a 70-year-old female who presents with hydrops cholecystitis. Surgical intervention with a laparoscopic cholecystectomy was described at length including injury to the biliary tree, bleeding, infection, need for further surgery. Informed consent was obtained. DESCRIPTION OF THE PROCEDURE: The patient was brought to the operating room, laid in supine position. After general induction, the abdomen was prepped and draped in a standard sterile fashion. Prior to incision, a timeout protocol was confirmed with surgical team regarding patient's name, procedure to be performed including preoperative medications for which she had received chemical and mechanical DVT prophylaxis. A transverse 5 mm incision was made above the umbilicus and off to the right of the midline. Please note the skin was localized prior to incision. A 0 degree 5-mm laparoscopic trocar entry was performed and entered into the peritoneal cavity. The abdomen was slowly insufflated to 12 mmHg pressure. Diagnostic laparoscopy confirmed no injury to bowel, viscera or mesentery. The liver serosa was completely unremarkable. Next, two 5 mm trocars were placed along the right costal margin followed by a 11 mm port at the left upper quadrant. The patient was placed in steep reverse Trendelenburg position with the right side up. The gallbladder fundus was retracted over the dome of the liver. Initial attention was brought to the infundibulum which was gently retracted in the inferior lateral approach. Using a Kittner, the cystic duct including the cystic artery was carefully skeletonized. Using a large clip hospitality recruiter 3 clips were placed proximally, and 1 clip was placed distally along the cystic duct and then cut. Again care was taken to avoid any injury to the biliary tree as the common bile duct was clearly visualized during this portion of dissection. Next, the cystic artery was clipped twice proximally, once distally and then cauterized. Electro-Bovie cautery was used to remove the gallbladder from the hepatic fossa without decompression of the gallbladder. Hemostasis was checked and found to be adequate. The gallbladder was removed from the abdominal cavity using an Endo Catch bag and passed off for further pathological analysis. All instruments and pneumoperitoneum were removed from the abdominal cavity. The fascial defect for the 11-mm port site was less than 8 mm in size. The rest of incisions were reapproximated using 4-0 Monocryl in an interrupted subcuticular fashion. A total of 30 mL of 0.50% Marcaine with epinephrine was infiltrated to all wounds for postop analgesia. Dermabond was applied to the skin. At the end of the procedure, needle, sponge, and instrument count was verified correct by surgical instrument technician. The patient had tolerated the procedure well and was taken to postanesthesia care unit in stable condition. A telephone call to the patient's daughter was made regarding her mother did well. FINDINGS: 1. Hydrops cholecystitis 2. Severe lower abdominal adhesions.
[2016-10-26] MEDS ORDERED: NALOXONE 0.4 MG/ML 1 ML VIAL IV PRN (17:55)
[2016-10-26] MEDS ORDERED: ceFAZolin 1,000 MG in DEXTROSE/WATER 1 50ML.BAG IVPB ONE (18:00)
--- NOTE | 2016-10-26 18:00 | P.PN ---
<Magdalena Armstrong - Last Filed: 10/26/16 20:45> Progress Note - Text DATE OF SERVICE: 10/26/2016 PRESENTING COMPLAINT: Abdominal pain INTERVAL HISTORY: This patient presented with GI bleed, on Eliquis history of peptic ulcer disease , epigastric pain and recent history of esophageal dilatation. Today complains of continued right upper quadrant pain, no further bleeding from the rectum. Tolerates full liquid diet, ambulatory within the room, complains of weakness feeling tired shortness of breath with minimal exertion. Appears anxious. Awaiting surgical consult. REVIEW OF SYSTEMS: Done for constitutional ,cardiovascular, GI, pulmonary with relevant findings as above. CURRENT MEDICATIONS Lovenox, Neurontin, Synthroid, Zofran, pantoprazole Carafate PHYSICAL EXAM VITAL SIGNS: Temperature 98.3, pulse 89, respirations 18, blood pressure 117/83, oxygen saturation 100% on room air. GENERAL APPEARANCE: Lying in bed, anxious appearing. EYES: Pupils equal. Conjunctiva normal. NECK: JVD not raised. Mass not palpable. RESPIRATORY: Respiratory effort normal. Lungs clear to auscultation. CARDIOVASCULAR: First and second sounds normal. No edema. ABDOMEN: Soft. Liver and spleen not palpable. Tenderness to epigastric area, right upper quadrant, right lower quadrant. No mass palpable. PSYCHIATRY: Alert and oriented x3. Mood and affect anxious, nervous. INVESTIGATIONS: Chloride 110, calcium 8.2 ECHOCARDIOGRAM: Sinus rhythm, EF between 60 and 65%. ULTRASOUND GALLBLADDER: Gallbladder appears distended with a small polyp or adherent stone. Mild biliary ductile dilatation and pancreatic ductal dilatation ASSESSMENT: -Acute GI bleed in a patient who takes Eliquis with known history of peptic ulcer disease now having blood per rectum and epigastric pain and a recent history history of esophageal dilatation -Peptic ulcer disease -Chronic esophagitis -Essential hypertension -Primary osteoarthritis of multiple joints bilateral -depression not otherwise specified Hypothyroid -Esophageal dysmotility -Anxiety not otherwise specified -Upper abdominal pain with ultrasound suggestive of gallbladder hydrops/with questionable gallstones -Hypokalemia from diarrhea PLAN: Await surgical consultation. TESTING COORDINATOR spent significant amount of time with patient explaining plan of care, course of treatment disease process. All questions answered to patient's satisfaction. Patient may require surgery later today for possible laparoscopic cholecystectomy and cardiology has been consulted. Eliquis remains on hold, patient will be made nothing by mouth in the event of surgery. We'll continue to monitor closely. TESTING COORDINATOR statement: Patient was seen and examined by nurse practitioner Magdalena Armstrong and all elements of the case discussed with attending Dr. Wong <Rich Wong - Last Filed: 10/26/16 22:25> Progress Note - Text Attending note. Date of service-10/27/2016 This patient was seen and examined by me today. I reviewed the note of my nurse practitioner, Ms. Armstrong. Discussed with her, additional findings as below This very pleasant patient admitted with GI bleed felt to be from Eliquis with a known history of peptic ulcer disease. Patient also got an enlarged gallbladder suspicious for acute cholecystitis. Abdomen-tenderness present but no guarding rigidity Potassium 3.8 Assessment plan: Possible acute cholecystitis, pending surgery by Dr. Goss Acute GI bleed in a patient on Eliquis which has been held pending GI input, follow H&H Care discussed with the patient questions answered
--- NOTE | 2016-10-26 18:01 | P.PN ---
Progress Note - Text Patient did very well after surgery. Recommend withholding blood thinners such as Coumadin or Eliquis for 5 days until, 10/31/16
[2016-10-26] MEDS: MORPHINE SULFATE 4 MG/ML SYRINGE IVP ONE ×2 (18:12→18:22)
[2016-10-26] MEDS: HYDROcodone/APAP 5-325MG 1 EACH TAB PO PRN (20:12)
[2016-10-26] MEDS: HEPARIN SODIUM,PORCINE 5,000 UNIT/ML 1 ML VIAL SQ SCH (20:16)
[2016-10-27] MEDS ORDERED: ceFAZolin 1 GM in SODIUM CHLORIDE 0.9% 100 ML IVPB SCH ×2
[2016-10-27] MEDS: SUCRALFATE 1 GM TAB PO SCH ×5 (01:06→23:56)
[2016-10-27] MEDS: ceFAZolin 1,000 MG in DEXTROSE/WATER 1 50ML.BAG IVPB SCH ×2 (01:06→07:32)
[2016-10-27] MEDS: LEVOTHYROXINE 50 MCG TAB PO SCH (05:39)
[2016-10-27] MEDS: MORPHINE SULFATE 2 MG/ML SYRINGE IVP PRN ×5 (06:03→21:09)
[2016-10-27 07:23] VITALS: RESP 16
[2016-10-27] MEDS: HEPARIN SODIUM,PORCINE 5,000 UNIT/ML 1 ML VIAL SQ SCH ×2 (07:32→21:08)
[2016-10-27] MEDS: GABAPENTIN 300 MG CAP PO SCH ×3 (07:32→21:07)
[2016-10-27] MEDS: PANTOPRAZOLE 40 MG/10 ML VIAL IVP SCH (07:32)
[2016-10-27] MEDS: HYDROcodone/APAP 5-325MG 1 EACH TAB PO PRN ×5 (07:33→23:46)
[2016-10-27 08:27] LABS: ALT 19 U/L (9-52); AST 25 U/L (14-36); Alkaline Phosphatase 56 U/L (38-126); Anion Gap 11 mmol/L; Blood Urea Nitrogen 5 mg/dL (7-17); Calcium 7.7 mg/dL (8.4-10.2); Carbon Dioxide 19 mmol/L (22-30); Chloride 111 mmol/L (98-107); Glucose 112 mg/dL (74-99); Non-African American GFR(MDRD) >60 (>60 ml/min/1.73 sqM); Sodium 141 mmol/L (137-145); Total Bilirubin 0.2 mg/dL (0.2-1.3); Total Protein 5.8 g/dL (6.3-8.2)
[2016-10-27] MEDS ORDERED: Potassium Replacement Protocol 1 EACH MISC MISCELLANE PRN (08:36)
[2016-10-27 08:40] LABS: Basophils # (A) 0.1 k/uL (0-0.2); Basophils % (A) 1 %; CH 23.7; CHCM 26.5; Eosinophils # (A) 0.4 k/uL (0-0.7); Eosinophils % (A) 5 %; HCT 31.3 % (34.0-46.0); HDW 3.26; Hypochromasia Marked; Luc # (Auto) 0.17; Luc % (Auto) 2; Lymphocytes # (A) 2.3 k/uL (1.0-4.8); Lymphocytes % (A) 26 %; MCH 25.3 pg (25.0-35.0); MCHC 28.3 g/dL (31.0-37.0); Mean Platelet Volume 6.8; Monocytes # (A) 0.4 k/uL (0-1.0); Monocytes % (A) 5 %; Neutrophils # (A) 5.4 k/uL (1.3-7.7); Neutrophils % (A) 62 %; RDW 14.3 % (11.5-15.5); WBC 8.7 k/uL (3.8-10.6); WBC (Perox) 8.94
[2016-10-27 08:43] LABS: HGB 8.9 gm/dL (11.4-16.0)
[2016-10-27 08:44] LABS: MCV 89.6 fL (80.0-100.0)
[2016-10-27] MEDS: POTASSIUM CHLORIDE 10 MEQ in WATER FOR INJECTION 1 100ML.BAG IVPB SCH ×2 (09:07→11:25)
[2016-10-27] MEDS: POTASSIUM CHLORIDE 10 MEQ, LIDOCAINE 2% INJ 10 MG in SODIUM CHLORIDE 0.9% 100 ML IVPB SCH ×2 (09:34→10:53)
[2016-10-27] MEDS: ONDANSETRON 4 MG/2 ML VIAL IVP PRN (10:43)
[2016-10-27] MEDS: SODIUM CHLORIDE 0.9% 1,000 ML IV SCH ×3 (12:46→23:57)
--- NOTE | 2016-10-27 13:09 | P.PN ---
Subjective 70-year-old female being seen and examined this morning currently sitting up in bed. This been no new postop events. Patient is postop day 1 done on October 26 laparoscopic cholecystectomy for right upper quadrant abdominal pain. Patient states pain medication has been effective for pain control currently denying chest pain or shortness of breath. Objective - Vital Signs Vital signs: Vital Signs Temp 97.1 F L 10/27/16 07:00 Pulse 76 10/27/16 07:00 Resp 16 10/27/16 07:00 BP 113/66 10/27/16 07:00 Pulse Ox 95 10/27/16 10:23 Intake & Output 10/26/16 10/27/16 10/27/16 18:59 06:59 18:59 Intake Total 1650 300 240 Output Total 5 Balance 1645 300 240 Weight 48.988 kg Intake: IV 650 Intake, IV Titration 1000 Amount Sodium Chloride 0.9% 1, 1000 000 ml @ 75 mls/hr IV . [id number] INOCENCIO Rx#:[id number] Oral 300 240 Output: Estimated Blood Loss 5 Other: # Voids 3 1 # Bowel Movements 1 - Exam Physical exam 70-year-old female resting in bed does not appear in any acute distress pleasant cooperative oriented 3 tolerating diet Lungs essentially clear adequate air movement bilaterally no wheezing rales or rhonchi on room air Heart S1-S2 audible and regular no chest pain. Monitor sinus rhythm Abdomen surgical site no redness soft nondistended positive bowel tones slight surgical tenderness urinating no difficulty no nausea vomiting tolerating diet Extremities no edema noted - Labs CBC & Chem 7: 10/27/16 07:55 10/27/16 07:55 Labs: Abnormal Lab Results - Last 24 Hours (Table) 10/27/16 10/27/16 Range/Units 07:55 07:55 RBC 3.50 L (3.80-5.40) m/uL Hgb 8.9 L D (11.4-16.0) gm/dL Hct 31.3 L (34.0-46.0) % MCHC 28.3 L (31.0-37.0) g/dL Potassium 3.0 L* (3.5-5.1) mmol/L Chloride 111 H (98-107) mmol/L Carbon Dioxide 19 L (22-30) mmol/L BUN 5 L (7-17) mg/dL Glucose 112 H (74-99) mg/dL Calcium 7.7 L (8.4-10.2) mg/dL Total Protein 5.8 L (6.3-8.2) g/dL Albumin 2.9 L (3.5-5.0) g/dL Microbiology - Last 24 Hours (Table) 10/25/16 12:00 Urine Culture - Final Urine,Clean Catch Assessment and Plan Plan: Impression Present on admission right upper quadrant abdominal pain suspect due to gallbladder distended findings consistent with hydrops cholecystitis Echocardiogram 10/26/2016 left ventricular systolic function normal with an EF between 60 and 65% no valvular heart disease History of paroxysmal atrial fibrillation off elquist for the past 48 hours History of sick sinus syndrome status post permanent pacemaker recent June 2016 History of esophageal stricture with a recent EGD with dilatation done in October 2014 History migraines Postop lap cholecystectomy for acute cholecystitis done on October 26 Plan Pain control IV fluid for hydration Recommend restarting elquis on October 31 home dose Home meds as appropriate Surgically the patient is felt to be appropriate to be discharged defer to the timing of the discharge to medicine service Continue postop surgical care Thank you for allowing us to participate in the plan of care The above impression and plan of care have been discussed and directed by signing physician. China Edgar nurse practitioner acting as scribe for signing physician.
[2016-10-27] MEDS: POTASSIUM CHLORIDE 10 MEQ, LIDOCAINE 2% INJ 10 MG in SODIUM CHLORIDE 0.9% 100 ML IV SCH ×2 (15:34→16:41)
[2016-10-27 18:09] LABS: Basophils # (A) 0.1 k/uL (0-0.2); Basophils % (A) 1 %; CH 23.9; CHCM 27.4; Eosinophils # (A) 0.4 k/uL (0-0.7); Eosinophils % (A) 5 %; HCT 30.2 % (34.0-46.0); HDW 3.42; HGB 8.7 gm/dL (11.4-16.0); Hypochromasia Marked; Luc # (Auto) 0.24; Luc % (Auto) 3; Lymphocytes % (A) 32 %; MCH 25.2 pg (25.0-35.0); MCHC 28.8 g/dL (31.0-37.0); MCV 87.5 fL (80.0-100.0); Mean Platelet Volume 7.4; Monocytes # (A) 0.4 k/uL (0-1.0); Monocytes % (A) 4 %; Neutrophils # (A) 5.1 k/uL (1.3-7.7); Neutrophils % (A) 56 %; Poikilocytosis Slight; RBC 3.45 m/uL (3.80-5.40); RDW 14.6 % (11.5-15.5); WBC 9.2 k/uL (3.8-10.6); WBC (Perox) 9.06
--- NOTE | 2016-10-27 18:24 | P.PN ---
<Magdalena Armstrong - Last Filed: 10/27/16 18:07> Progress Note - Text DATE OF SERVICE: 10/27/2016 PRESENTING COMPLAINT: Abdominal pain INTERVAL HISTORY: This patient presented with GI bleed, on Eliquis history of peptic ulcer disease , epigastric pain and recent history of esophageal dilatation. 10/26/2016 : Today complains of continued right upper quadrant pain, no further bleeding from the rectum. Tolerates full liquid diet, ambulatory within the room, complains of weakness feeling tired shortness of breath with minimal exertion. Appears anxious. Awaiting surgical consult. 10/27/2016: Patient is sitting up in bed on the phone, crying, knees drawn to her chest, apparently talking to family. Handed the phone to Dr. Wong to speak to family member, update provided. Patient spoke very little during this exchange very tearful, complaining of pain, tenderness to right upper quadrant, status post laparoscopic cholecystectomy. Tolerating her full liquid diet, surgery advance to soft. Patient does walk the length the hallway. REVIEW OF SYSTEMS: Done for constitutional ,cardiovascular, GI, pulmonary with relevant findings as above. CURRENT MEDICATIONS Lovenox, Neurontin, Synthroid, Zofran, pantoprazole Carafate PHYSICAL EXAM VITAL SIGNS: Temperature 97.1, pulse 76, respiratory rate 20, blood pressure 113/66, oxygen saturation 98% on room air. GENERAL APPEARANCE: Lying in bed, anxious appearing, tearful. EYES: Pupils equal. Conjunctiva normal. NECK: JVD not raised. Mass not palpable. RESPIRATORY: Respiratory effort normal. Lungs clear to auscultation. CARDIOVASCULAR: First and second sounds normal. No edema. ABDOMEN: Soft. Liver and spleen not palpable. Tenderness to epigastric area, right upper quadrant, right lower quadrant, status post laparoscopic cholecystectomy No mass palpable. PSYCHIATRY: Alert and oriented x3. Mood and affect anxious, nervous. INVESTIGATIONS: Hemoglobin 8.9, sodium 141, potassium 3.0, BUN 5 creatinine 0.77 ECHOCARDIOGRAM: Sinus rhythm, EF between 60 and 65%. ASSESSMENT: -Upper abdominal pain with ultrasound suggestive of gallbladder hydrops/with questionable gallstones, now postop day 1 from laparoscopic cholecystectomy -Acute GI bleed in a patient who takes Eliquis with known history of peptic ulcer disease now having blood per rectum and epigastric pain and a recent history history of esophageal dilatation -Peptic ulcer disease -Chronic esophagitis -Essential hypertension -Primary osteoarthritis of multiple joints bilateral -depression not otherwise specified -Hypothyroid -Esophageal dysmotility -Anxiety not otherwise specified -Hypokalemia from diarrhea PLAN: From a surgical standpoint, appropriate to plan for discharge however given the current status of the patient, tearful emotional, we'll hold patient an additional day, and attempts to gain control of her pain and to ensure patient readiness to return home. Eliquis should be restarted on October 31, the patient' s home dose. Patient did come to the hospital had some complaints of rectal bleeding, there has been none since her admission, will await input from GI and monitor patient's hemoglobin closely, and monitor for any rectal bleeding, or any acute signs or symptoms of bleeding. We'll continue to follow closely KILN REPAIRER statement: Patient was seen and examined by nurse practitioner Magdalena Armstrong and all elements of the case discussed with attending Dr. Wong <Rich Wong - Last Filed: 10/27/16 19:47> Progress Note - Text Attending note. Date of service-10/27/2016 This patient was seen and examined by me today. I reviewed the note of my nurse practitioner, Ms. Armstrong. Discussed with her, additional findings as below Status post cholecystectomy. Having some back pain from recent vertebral fractures. Started on clear liquids and advanced to soft diet per surgery. On examination: Abdomen soft, minimal tenderness no guarding or rigidity Investigations: White count 9.2, hemoglobin 8.7 Assessment and plan: Status post cholecystectomy. Spoke at length with the patient and her daughter. We will hold her back for 1 more day as she is concerned about going home today. See see how she does a diet. We will give her [place] for her back pain. Did tell her to use a heating pad for her back to when she goes on. Also discussed with [place] from surgical team. Eliquis to be continued to be held off. As per if endoscopy to be done to be done by Dr. Froilan metz from [facility]. Total time spent today about 40 minutes with over 20 minutes of discussion
[2016-10-28] MEDS: MORPHINE SULFATE 2 MG/ML SYRINGE IVP PRN ×2 (01:26→05:42)
[2016-10-28] MEDS: HYDROcodone/APAP 5-325MG 1 EACH TAB PO PRN ×4 (04:05→15:57)
[2016-10-28] MEDS: LEVOTHYROXINE 50 MCG TAB PO SCH (05:42)
[2016-10-28] MEDS: SUCRALFATE 1 GM TAB PO SCH ×3 (05:42→18:16)
[2016-10-28] MEDS ORDERED: PANTOPRAZOLE 40 MG TABLET PO SCH (07:30)
[2016-10-28 07:48] VITALS: BP 125/81; PULSE 73; TEMP 97.4
[2016-10-28 07:55] LABS: Basophils # (A) 0.1 k/uL (0-0.2); Basophils % (A) 1 %; CH 23.9; CHCM 27.5; Eosinophils # (A) 0.3 k/uL (0-0.7); Eosinophils % (A) 5 %; HCT 26.1 % (34.0-46.0); HDW 3.47; HGB 7.6 gm/dL (11.4-16.0); Hypochromasia Marked; Luc # (Auto) 0.22; Luc % (Auto) 4; Lymphocytes # (A) 2.3 k/uL (1.0-4.8); Lymphocytes % (A) 39 %; MCH 25.5 pg (25.0-35.0); MCHC 29.3 g/dL (31.0-37.0); MCV 87.1 fL (80.0-100.0); Mean Platelet Volume 7.2; Monocytes # (A) 0.3 k/uL (0-1.0); Monocytes % (A) 6 %; Neutrophils # (A) 2.7 k/uL (1.3-7.7); Neutrophils % (A) 46 %; Poikilocytosis Slight; RBC 2.99 m/uL (3.80-5.40); RDW 14.6 % (11.5-15.5); WBC 5.9 k/uL (3.8-10.6); WBC (Perox) 6.48
[2016-10-28] MEDS: HEPARIN SODIUM,PORCINE 5,000 UNIT/ML 1 ML VIAL SQ SCH (08:14)
[2016-10-28] MEDS: GABAPENTIN 300 MG CAP PO SCH ×2 (08:14→15:57)
[2016-10-28 08:17] LABS: ALT 20 U/L (9-52); AST 19 U/L (14-36); Alkaline Phosphatase 48 U/L (38-126); Anion Gap 7 mmol/L; Blood Urea Nitrogen 2 mg/dL (7-17); Calcium 7.8 mg/dL (8.4-10.2); Carbon Dioxide 21 mmol/L (22-30); Chloride 113 mmol/L (98-107); Glucose 78 mg/dL (74-99); Non-African American GFR(MDRD) >60 (>60 ml/min/1.73 sqM); Potassium 3.4 mmol/L (3.5-5.1); Sodium 141 mmol/L (137-145); Total Bilirubin 0.2 mg/dL (0.2-1.3); Total Protein 5.1 g/dL (6.3-8.2)
[2016-10-28 12:53] LABS: Basophils # (A) 0.1 k/uL (0-0.2); Basophils % (A) 1 %; CH 24.4; CHCM 28.3; Eosinophils # (A) 0.4 k/uL (0-0.7); Eosinophils % (A) 6 %; HDW 3.46; Hypochromasia Marked; Luc # (Auto) 0.15; Luc % (Auto) 3; Lymphocytes # (A) 1.9 k/uL (1.0-4.8); Lymphocytes % (A) 30 %; MCH 25.4 pg (25.0-35.0); MCHC 29.5 g/dL (31.0-37.0); MCV 86.1 fL (80.0-100.0); Mean Platelet Volume 7.6; Monocytes # (A) 0.3 k/uL (0-1.0); Monocytes % (A) 5 %; Neutrophils # (A) 3.4 k/uL (1.3-7.7); Neutrophils % (A) 56 %; Poikilocytosis Slight; RBC 3.13 m/uL (3.80-5.40); RDW 14.7 % (11.5-15.5); WBC 6.1 k/uL (3.8-10.6); WBC (Perox) 6.25
--- NOTE | 2016-10-28 15:09 | P.PN ---
Subjective Principal diagnosis: Acute cholecystitis History of Rectal bleed Is overall doing very well. She's had significant pain control issues related to her back. His no nausea no vomiting she's tolerating a diet. Objective - Vital Signs Vital signs: Vital Signs Temp 97.4 F L 10/28/16 07:00 Pulse 73 10/28/16 07:00 Resp 16 10/28/16 07:00 BP 125/81 10/28/16 07:00 Pulse Ox 96 10/28/16 07:00 Intake & Output 10/27/16 10/28/16 10/28/16 18:59 06:59 18:59 Intake Total 240 1200 Balance 240 1200 Intake: Oral 240 1200 Other: Voiding Method Toilet # Voids 1 1 # Bowel Movements 0 - Gastrointestinal Gastrointestinal Comment(s): Abdomen is soft nontender incisions are healing well there is no bloating or distention. - Labs CBC & Chem 7: 10/28/16 12:30 10/28/16 07:10 Labs: Abnormal Lab Results - Last 24 Hours (Table) 10/27/16 10/28/16 10/28/16 Range/Units 17:58 07:10 07:10 RBC 3.45 L 2.99 L (3.80-5.40) m/uL Hgb 8.7 L 7.6 L (11.4-16.0) gm/dL Hct 30.2 L 26.1 L (34.0-46.0) % MCHC 28.8 L 29.3 L (31.0-37.0) g/dL Potassium 3.4 L (3.5-5.1) mmol/L Chloride 113 H (98-107) mmol/L Carbon Dioxide 21 L (22-30) mmol/L BUN 2 L (7-17) mg/dL Calcium 7.8 L (8.4-10.2) mg/dL Total Protein 5.1 L (6.3-8.2) g/dL Albumin 2.5 L (3.5-5.0) g/dL 10/28/16 Range/Units 12:30 RBC 3.13 L (3.80-5.40) m/uL Hgb 8.0 L (11.4-16.0) gm/dL Hct 27.0 L (34.0-46.0) % MCHC 29.5 L (31.0-37.0) g/dL Potassium (3.5-5.1) mmol/L Chloride (98-107) mmol/L Carbon Dioxide (22-30) mmol/L BUN (7-17) mg/dL Calcium (8.4-10.2) mg/dL Total Protein (6.3-8.2) g/dL Albumin (3.5-5.0) g/dL Assessment and Plan Plan: Patient is status post laparoscopic cholecystectomy and is doing very well. Okay from the surgical standpoint to discharge her home.
--- NOTE | 2016-10-28 18:26 | P.CONS ---
History of Present Illness - Reason for Consult Consult date: 10/27/16 - History of Present Illness 70-year old female presented with abdominal pain nausea and vomiting and had findings of hydrops cholecystitis for which she underwent laparoscopic cholecystectomy yesterday. Was due to be discharged earlier today, but was having pain and was tearful prompting her stay additional night. When I saw her this evening she was already feeling improved and tolerating her diet. The patient has history of Atrial fibrillation and sick sinus syndrome and had pacemaker placed and was on elequis. She has history of GI bleeding and esophageal stricture for which she follows with Dr Heath at [facility]. Had history of epigastric pain, PUD and previous esophageal dilation. Review of Systems REVIEW OF SYSTEMS: CARDIOPULMONARY: No chest pain or shortness of breath. GENITOURINARY: No dysuria or hematuria. MUSCULOSKELETAL: Unremarkable. SKIN: Unremarkable. ENDOCRINE: Unremarkable. PSYCHIATRIC: Unremarkable. NEUROLOGY: Unremarkable. ENT: Vision unremarkable. CONSTITUTIONAL: No recent weight loss. No fever, chills, night sweats. Past Medical History Past Medical History: Atrial Fibrillation, Coronary Artery Disease (CAD), Chest Pain / Angina, Fibromyalgia, GERD/Reflux, GI Bleed, Hypertension, Osteoarthritis (OA), Thyroid Disorder Additional Past Medical History / Comment(s): Pt recently had pacemaker insertion at [facility] in June 2016 for syncopy/tachybrady syndrome-she was then able to have an EGD with dilation, paroxysmal AFib and has had RVR, 10/2014 pt had bradycardia thought to be from beta farshad/over tx of thyroid, rheumatic fever, heart murmur, chronic back and bilateral shoulder pain, L4 fx after a fall in 2012 and "recently found 2 fx thoraic vertebre-supposed to wear a brace but not with pt at time of thiks admit, severe osteoporosis, dee ear sx ( stapedectomy) and has vertigo now if she tips her head back, hypothyroid, DJD, GI ulcers, esophagitis/esophageal stricture. Pt states she has had a MN in 2002 but taylor states tractor driver teamster said that it wasn't a MN. Last Myocardial Infarction Date:: 2002 History of Any Multi-Drug Resistant Organisms: None Reported Past Surgical History: Appendectomy, Cardiac Ablation, Ear Surgery, Heart Catheterization, Hysterectomy, Orthopedic Surgery, Pacemaker, Tonsillectomy Additional Past Surgical History / Comment(s): ORIF LEFT LOWER ARM. Numerous DILATATION OF ESOPHAGUS-recently done in 06/2016 at [facility] pt stated bx were neg, colonoscopy, pacemaker placed 07/07 at [facility], cardiac cath in 2002, bilateral stapedectomies Past Anesthesia/Blood Transfusion Reactions: Motion Sickness, Postoperative Nausea & Vomiting (PONV) Type of Cardiac Device: Permanent Pacemaker Device Placement Date:: 06/2016 Smoking Status: Never smoker Additional Past Alcohol Use History / Comment(s): Lives alone - Past Family History Brother(s) Family Medical History: Cancer Father Family Medical History: COPD, Pneumonia Additional Family Medical History / Comment(s): emphysema Mother Family Medical History: COPD, Rheumatoid Arthritis (RA) Additional Family Medical History / Comment(s): smoked, emphysema, osteoporosis. Medications and Allergies Home Medications Medication Instructions Recorded Confirmed Type Gabapentin [Neurontin] 300 mg PO TID 02/15/16 10/25/16 History Magnesium Gluconate [Magonate] 500 mg PO DAILY 02/15/16 10/25/16 History SUMAtriptan SUCCINATE [Imitrex] 50 mg PO BID PRN 02/15/16 10/25/16 History Acetaminophen [Tylenol] 650 mg PO Q6H PRN 07/17/16 10/25/16 History Sucralfate [Carafate] 1 gm PO Q6H 07/17/16 10/25/16 History Allergies Allergy/AdvReac Type Severity Reaction Status Date / Time adhesive Allergy RASH FROM Verified 10/25/16 11:20 EKG STICKERS celecoxib [From Celebrex] Allergy Rash/Hives Verified 10/25/16 11:20 sertraline HCl [From Zoloft] Allergy Rash/Hives Verified 10/25/16 11:20 sulfamethoxazole Allergy Anaphylaxis Verified 10/25/16 11:20 [From Bactrim] trimethoprim [From Bactrim] Allergy Anaphylaxis Verified 10/25/16 11:20 Physical Exam Vitals: Vital Signs Temp Pulse Pulse Resp BP Pulse Ox 10/27/16 14:44 97.8 F 79 16 126/71 97 10/27/16 10:23 95 10/27/16 07:00 97.1 F L 76 76 16 113/66 98 Intake and Output 10/27/16 10/27/16 10/28/16 14:59 22:59 06:59 Intake Total 240 Balance 240 Intake: Oral 240 Other: Voiding Method Toilet Toilet # Voids 1 # Bowel Movements 0 On physical examination, patient appears comfortable in no apparent distress. Vital signs are stable. HEENT: Unremarkable. Conjunctivae pink. Sclerae anicteric. Oral cavity no lesions. NECK: No JVD or lymph node enlargement. CHEST: Clear to auscultation. HEART: Irregular, no abnormal murmurs, gallops or friction rubs. ABDOMEN: Soft. Bowel sounds are positive. No organomegaly. Incision sites of recent surgery without bleeding or infection EXTREMITIES: No pedal edema. SKIN: No rashes. NEUROLOGIC: Alert and oriented x3. No focal deficits. Results CBC & Chem 7: 10/28/16 12:30 10/28/16 07:10 Labs: Abnormal Lab Results - Last 24 Hours (Table) 10/27/16 10/27/16 10/27/16 Range/Units 07:55 07:55 17:58 RBC 3.50 L 3.45 L (3.80-5.40) m/uL Hgb 8.9 L D 8.7 L (11.4-16.0) gm/dL Hct 31.3 L 30.2 L (34.0-46.0) % MCHC 28.3 L 28.8 L (31.0-37.0) g/dL Potassium 3.0 L* (3.5-5.1) mmol/L Chloride 111 H (98-107) mmol/L Carbon Dioxide 19 L (22-30) mmol/L BUN 5 L (7-17) mg/dL Glucose 112 H (74-99) mg/dL Calcium 7.7 L (8.4-10.2) mg/dL Total Protein 5.8 L (6.3-8.2) g/dL Albumin 2.9 L (3.5-5.0) g/dL Assessment and Plan Plan: 70-year old female S/P laparoscopic cholecystectomy yesterday for hydrops cholecystitis, appears to be doing well at this time with no specific pains or bleeding. As per our discussion, agree with current plant. She can follow with Dr Heath after discharge. Did not schedule any repeat endoscopy at this time.
--- NOTE | 2016-10-28 20:28 | P.DS ---
Providers Date of admission: 10/25/16 15:53 Expected date of discharge: 10/28/16 Attending physician: Rich Wong Consults: 10/25/16 15:52 Consult Physician Routine Consulting Provider: Hasmukh Bennett Consult Reason/Comments: cbd Do you want consulting provider notified?: Yes 10/25/16 18:08 Consult Physician Routine Consulting Provider: Jeimy Martino Consult Reason/Comments: abnormal GB ultrasound Do you want consulting provider notified?: Yes 10/26/16 08:13 Consult Physician Urgent Consulting Provider: Billy Llamas Consult Reason/Comments: off elquis need clearance for or Do you want consulting provider notified?: Yes Primary care physician: [facility] Hospital Course: Final diagnosis: -Acute hydrops cholecystitis followed by cholecystectomy -Acute GI bleed in a patient who takes Eliquis with known history of peptic ulcer disease now having blood per rectum and epigastric pain and a recent history history of esophageal dilatation -Peptic ulcer disease -Chronic esophagitis -Essential hypertension -Primary osteoarthritis of multiple joints bilateral -depression not otherwise specified -Hypothyroid -Esophageal dysmotility -Anxiety not otherwise specified -Hypokalemia from diarrhea Hospital course: This is a very pleasant 70-year-old patient well known from multiple presentations. Patient chronic stable medical conditions include peptic ulcer disease, esophagitis, hypertension, Levi arthritis, depression, esophageal dysmotility from esophagitis. Patient had a esophageal dilatation done by Dr. Heath out of [facility] last being done about a month ago. Patient does have a pacemaker in place Patient 5 days ago started having nausea vomiting diarrhea. Upper abdominal discomfort. Denied any fever. Patient is now down to some dry heaves and having one and 2 bowel movements a day. Still having some epigastric discomfort. Does feel weak and tired. Patient also noticed to have blood in the stools for last 3 to 4 days and takes eliquis that she cut back to once a day. Patient underwent cholecystectomy by Dr. Goss. Patient's Eliquis was discontinued. Discussed with the daughter patient will follow with her pierogi maker Dr. Heath at [facility] next week. In the meantime Eliquis will be held. On examination: Abdomen soft and minimally tender. Discharge planning, discussion more than 35 minutes Patient Condition at Discharge: Good Plan - Discharge Summary New Discharge Prescriptions: New oxyCODONE HCL/ACETAMINOPHEN [Percocet 5-325 mg] 1 tab PO Q6HR PRN #30 tab PRN Reason: Pain Omeprazole [PriLOSEC] 20 mg PO AC-BID #1 cap Continue Magnesium Gluconate [Magonate] 500 mg PO DAILY Gabapentin [Neurontin] 300 mg PO TID SUMAtriptan SUCCINATE [Imitrex] 50 mg PO BID PRN PRN Reason: Migraine Headache Sucralfate [Carafate] 1 gm PO Q6H Acetaminophen [Tylenol] 650 mg PO Q6H PRN PRN Reason: Pain Levothyroxine Sodium [Synthroid] 50 mcg PO DAILY@0630 #30 tab Discontinued Omeprazole 20 mg PO BID Apixaban [Eliquis] 5 mg PO BID Loperamide [Imodium] 4 mg PO ONCE PRN PRN Reason: Diarrhea Discharge Medication List Gabapentin [Neurontin] 300 mg PO TID 02/15/16 [History] Magnesium Gluconate [Magonate] 500 mg PO DAILY 02/15/16 [History] SUMAtriptan SUCCINATE [Imitrex] 50 mg PO BID PRN 02/15/16 [History] Acetaminophen [Tylenol] 650 mg PO Q6H PRN 07/17/16 [History] Sucralfate [Carafate] 1 gm PO Q6H 07/17/16 [History] Levothyroxine Sodium [Synthroid] 50 mcg PO DAILY@0630 #30 tab 08/24/16 [Rx] Omeprazole [PriLOSEC] 20 mg PO AC-BID #1 cap 10/28/16 [Rx] oxyCODONE HCL/ACETAMINOPHEN [Percocet 5-325 mg] 1 tab PO Q6HR PRN #30 tab [Rx] Follow up Appointment(s)/Referral(s): Hasmukh Bennett MD [STAFF PHYSICIAN] - 1 Week Elroy Wray DO [Primary Care Provider] - 1-2 days Miracle Guerrero MD [STAFF PHYSICIAN] - 10/31/16 [facility], [NON-STAFF] - Ambulatory/Diagnostic Orders: Basic Metabolic Panel [LAB.AMB] Time Frame: 1 Week, Location: Determined By Patient Complete Blood Count w/diff [LAB.AMB] Location: Determined By Patient Patient Instructions/Handouts: Low Fat Diet (DC), Laparoscopic Cholecystectomy (DC) Activity/Diet/Wound Care/Special Instructions: May start blood thinner one week after surgery, 11/02/2016. May shower. No bath tub soaks. Fat free diet. No lifting over 4 pounds until seen in a follow-up visit with Dr. Guerrero Discharge Disposition: HOME SELF-CARE
== END 2016-10-28 18:29 | disposition home health service (06) | DRG 418 ==
LOC: EC 10:44 → 4MS4W 15:53
PROVIDERS: ADMIT Hospitalist; ATTEND Hospitalist
PROC: 0FT44ZZ Resection of Gallbladder, Percutaneous Endoscopic Approach (ICD-10-PCS; principal; 2016-10-26 08:55)
DX: K81.0 Acute cholecystitis (principal); K82.1 Hydrops of gallbladder; I42.9 Cardiomyopathy, unspecified; K92.2 Gastrointestinal hemorrhage, unspecified; I49.5 Sick sinus syndrome; I11.9 Hypertensive heart disease without heart failure; I48.0 Paroxysmal atrial fibrillation; K27.9 Peptic ulcer, site unspecified, unspecified as acute or chronic, without hemorrhage or perforation; E86.0 Dehydration; G43.909 Migraine, unspecified, not intractable, without status migrainosus; F32.9 Major depressive disorder, single episode, unspecified; E03.9 Hypothyroidism, unspecified; E87.6 Hypokalemia; F41.9 Anxiety disorder, unspecified; I25.10 Atherosclerotic heart disease of native coronary artery without angina pectoris; I25.2 Old myocardial infarction; K21.0 Gastro-esophageal reflux disease with esophagitis; K22.4 Dyskinesia of esophagus; K66.0 Peritoneal adhesions (postprocedural) (postinfection); M15.9 Polyosteoarthritis, unspecified; M79.7 Fibromyalgia; M54.9 Dorsalgia, unspecified; G89.29 Other chronic pain; M25.512 Pain in left shoulder; M25.511 Pain in right shoulder; R01.1 Cardiac murmur, unspecified; Z79.01 Long term (current) use of anticoagulants; Z79.899 Other long term (current) drug therapy; Z88.1 Allergy status to other antibiotic agents; Z88.2 Allergy status to sulfonamides; Z88.8 Allergy status to other drugs, medicaments and biological substances; Z95.0 Presence of cardiac pacemaker
CPT/HCPCS: 36415; 74177; 76705; 80048; 80053; 81001; 82150; 82550; 82553; 83605; 83690; 83735; 84100; 84132; 84484; 85025; 85610; 85730; 87086; 87324; 88304; 93306; 94760

== ENCOUNTER → 2016-10-30 | Outpatient (CLI) | payer MEDICARE, OTHER ==
[2016-10-30 14:17] LABS: Basophils # (A) 0.1 k/uL (0-0.2); Basophils % (A) 1 %; CH 24.2; Eosinophils # (A) 0.2 k/uL (0-0.7); Eosinophils % (A) 2 %; HDW 3.52; HGB 9.2 gm/dL (11.4-16.0); Hypochromasia Marked; Luc # (Auto) 0.23; Luc % (Auto) 2; Lymphocytes # (A) 2.2 k/uL (1.0-4.8); Lymphocytes % (A) 21 %; MCH 24.9 pg (25.0-35.0); MCHC 29.8 g/dL (31.0-37.0); MCV 83.5 fL (80.0-100.0); Mean Platelet Volume 6.9; Monocytes # (A) 0.4 k/uL (0-1.0); Monocytes % (A) 3 %; Neutrophils # (A) 7.5 k/uL (1.3-7.7); Neutrophils % (A) 71 %; Poikilocytosis Slight; RBC 3.72 m/uL (3.80-5.40); WBC 10.6 k/uL (3.8-10.6); WBC (Perox) 11.08
[2016-10-30 14:23] LABS: Anion Gap 12 mmol/L; Blood Urea Nitrogen 10 mg/dL (7-17); Calcium 9.3 mg/dL (8.4-10.2); Carbon Dioxide 32 mmol/L (22-30); Chloride 97 mmol/L (98-107); Glucose 102 mg/dL (74-99); Non-African American GFR(MDRD) >60 (>60 ml/min/1.73 sqM); Potassium 3.2 mmol/L (3.5-5.1); Sodium 141 mmol/L (137-145)
== END | disposition home or self-care (01) ==
LOC: LABWHC1 13:23
PROVIDERS: ATTEND Nurse Practitioner Acute Care
DX: E86.0 Dehydration (principal); E87.6 Hypokalemia; Z79.899 Other long term (current) drug therapy
CPT/HCPCS: 36415; 80048; 85025

== ENCOUNTER 2016-11-29 07:52 | Inpatient (IN) | payer MEDICARE, OTHER ==
[2016-11-27 11:44] VITALS: BMI 22.3
[~2016-11-29 07:52] MED LIST: LACTATED RINGERS 1,000 ML IV SCH; LIDOCAINE 1% 20 ML VIAL (10MG/ML) FOR IV START INTRADERMA PRN
--- NOTE | 2016-11-29 08:28 | P.GSHP ---
History of Present Illness H&P Date: 11/29/16 CHIEF COMPLAINT: GERD HISTORY OF PRESENT ILLNESS: The patient is a 71-year-old female who presents reports gastroesophageal reflux disease. Upper endoscopy was offered for further evaluation and management. PAST MEDICAL HISTORY: Please see list. PAST SURGICAL HISTORY: Please see list. MEDICATIONS: Please see list. ALLERGIES: Please see list. SOCIAL HISTORY: No illicit drug use FAMILY HISTORY: No reports of Crohn disease or ulcerative colitis. REVIEW OF ORGAN SYSTEMS: CONSTITUTIONAL: No reports of fevers or chills. GI: Denies any blood in stools or constipation. PHYSICAL EXAM: VITAL SIGNS: Stable GENERAL: Well-developed and pleasant in no acute distress. HEENT: No scleral icterus. Extraocular movements grossly intact. Moist buccal mucosa. NECK: Supple without lymphadenopathy. CHEST: Unlabored respirations. Equal bilateral excursions. CARDIOVASCULAR: Regular rate and rhythm. Distal 2+ pulses. ABDOMEN: Soft, nondistended. MUSCULOSKELETAL: No clubbing, cyanosis, or edema. ASSESSMENT: 1. Gastroesophageal reflux disease PLAN: 1. 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 Pt states she has had a OH in 2002 but taylor states rodeo performer said that it wasn't a OH. Last Myocardial Infarction Date:: 2002 History of Any Multi-Drug Resistant Organisms: None Reported Past Surgical History: Appendectomy, Cardiac Ablation, Cholecystectomy, Ear Surgery, Heart Catheterization, Hysterectomy, Orthopedic Surgery, Pacemaker, Tonsillectomy Additional Past Surgical History / Comment(s): Dorothy 10-26-16,ORIF LEFT LOWER ARM. Numerous DILATATION OF ESOPHAGUS-recently done in 06/2016 at [facility] pt stated bx were neg, colonoscopy 2014, pacemaker placed 07/07 at [facility], cardiac cath in 2002, bilateral stapedectomies Past Anesthesia/Blood Transfusion Reactions: Motion Sickness, Postoperative Nausea & Vomiting (PONV) Additional Past Anesthesia/Blood Transfusion Reaction / Comment(s): no problems with prior blood transfusion Type of Cardiac Device: Permanent Pacemaker Device Placement Date:: 06/2016 Smoking Status: Never smoker - Past Family History Brother(s) Family Medical History: Cancer Additional Family Medical History / Comment(s): throat Father Family Medical History: COPD, Pneumonia Additional Family Medical History / Comment(s): emphysema Mother Family Medical History: COPD, Rheumatoid Arthritis (RA) Additional Family Medical History / Comment(s): smoked, emphysema, osteoporosis. Medications and Allergies Home Medications Medication Instructions Recorded Confirmed Type Gabapentin [Neurontin] 300 mg PO TID 02/15/16 11/29/16 History Magnesium Gluconate [Magonate] 500 mg PO DAILY 02/15/16 11/29/16 History SUMAtriptan SUCCINATE [Imitrex] 50 mg PO BID PRN 02/15/16 11/29/16 History Acetaminophen [Tylenol] 650 mg PO Q6H PRN 07/17/16 11/29/16 History Sucralfate [Carafate] 1 gm PO Q6H 07/17/16 11/29/16 History Apixaban [Eliquis] 5 mg PO BID 11/27/16 11/29/16 History Ferrous Sulfate [Feosol] 325 mg PO BID 11/27/16 11/29/16 History Potassium Chloride [Klor-Con 10] 40 meq PO BID 11/29/16 11/29/16 History Allergies Allergy/AdvReac Type Severity Reaction Status Date / Time adhesive Allergy RASH FROM Verified 11/29/16 08:10 EKG STICKERS celecoxib [From Celebrex] Allergy Rash/Hives Verified 11/29/16 08:10 sertraline HCl [From Zoloft] Allergy Rash/Hives Verified 11/29/16 08:10 sulfamethoxazole Allergy Anaphylaxis Verified 11/29/16 08:10 [From Bactrim] trimethoprim [From Bactrim] Allergy Anaphylaxis Verified 11/29/16 08:10
[2016-11-29] MEDS ORDERED: PROPOFOL 10 MG/ML 20 ML VIAL IV ONE (08:32)
[2016-11-29] MEDS ORDERED: ONDANSETRON 4 MG/2 ML VIAL IVP ONE (09:10)
[2016-11-29] MEDS ORDERED: HYDROcodone/APAP 5-325MG 1 EACH TAB PO ONE ×2 (09:21→13:50)
--- NOTE | 2016-11-29 09:25 | P.PCN ---
Date of Procedure: 11/29/16 Preoperative Diagnosis: Postoperative Diagnosis: Procedure(s) Performed: Implants: Indications for Procedure: Operative Findings: Description of Procedure: PREOPERATIVE DIAGNOSIS: Dysphagia. Epigastric abdominal pain. History of esophageal stricture. POSTOPERATIVE DIAGNOSIS: Dysphagia. Epigastric abdominal pain. History of esophageal stricture. Yeast esophagitis. Esophageal dysmotility. Discharge's. OPERATION: Esophagogastroduodenoscopy with rigid dilator from 25 to 39 Fr. SURGEON: Miracle Guerrero MD ANESTHESIA: MAC. INDICATIONS: The patient is a 71-year-old female who presents with a history of dysphagia including epigastric pain. She has history of previous dilation of the esophagus. She reports trouble swallowing her pills. Benefits and risks of the procedure were described. Informed consent was obtained. DESCRIPTION: The patient was brought into the endoscopy suite and laid in the left lateral decubitus position. After a timeout was confirmed, the procedure was initiated. An Olympus gastroscope was passed to the posterior oropharynx where the upper esophageal sphincter was extremely tight. An 8.6 mm diameter upper scope otherwise 25.8-South African scope was gently passed down the superior portion of the esophagus to the distal esophagus. The stomach was entered. Mild gastritis was identified. The scope was advanced to the duodenum which was unremarkable. Retroflexion the scope confirmed a Hill grade 4 lower esophageal valve. Next using an Puerto Rican rigid dilator, a guidewire was placed through the pediatric gastroscope. Next the scope was withdrawn. A 39-South African rigid [place]ican dilator was passed carefully along the posterior oropharynx to 35 cm and left in place for 2-3 minutes stretch. The dilator was withdrawn including the guidewire. The scope was reentered along the posterior oropharynx with no findings of full-thickness tear of the upper esophageal sphincter. Moderate white plaque adhesions along the upper esophagus with cold forceps biopsy was obtained. Features are consistent with yeast candidiasis. Separately, multiple tertiary contractions were found throughout the esophagus highly suspicious for underlying esophageal dysmotility. No full-thickness injury was encountered. The GI tract was desufflated. The patient tolerated the procedure well. FINDINGS: Squamocolumnar junction unremarkable at 37 cm. Stricture of 8.5 mm of the upper esophagus, consistent with hypertensive upper esophageal sphincter. Puerto Rican rigid dilator 39-South African otherwise 13 mm used. Multiple white plaques along the esophagus consistent with yeast. Diffuse gastritis. Hill grade 4 lower esophageal valve. Sliding hiatal hernia, 3 cm. LA grade B esophagitis. RECOMMENDATIONS: Recommend esophageal motility study. Recommend further evaluation by ENT provider for hypertensive upper esophageal sphincter. Recommend treatment with antacids. Recommend treatment for yeast esophagitis pending pathology confirmation. Plan - Discharge Summary New Discharge Prescriptions: No Action Magnesium Gluconate [Magonate] 500 mg PO DAILY Gabapentin [Neurontin] 300 mg PO TID SUMAtriptan SUCCINATE [Imitrex] 50 mg PO BID PRN PRN Reason: Migraine Headache Sucralfate [Carafate] 1 gm PO Q6H Acetaminophen [Tylenol] 650 mg PO Q6H PRN PRN Reason: Pain Levothyroxine Sodium [Synthroid] 50 mcg PO DAILY@0630 #30 tab Omeprazole [PriLOSEC] 20 mg PO AC-BID #1 cap Apixaban [Eliquis] 5 mg PO BID Ferrous Sulfate [Feosol] 325 mg PO BID Potassium Chloride [Klor-Con 10] 40 meq PO BID Discharge Medication List Gabapentin [Neurontin] 300 mg PO TID 02/15/16 [History] Magnesium Gluconate [Magonate] 500 mg PO DAILY 02/15/16 [History] SUMAtriptan SUCCINATE [Imitrex] 50 mg PO BID PRN 02/15/16 [History] Acetaminophen [Tylenol] 650 mg PO Q6H PRN 07/17/16 [History] Sucralfate [Carafate] 1 gm PO Q6H 07/17/16 [History] Levothyroxine Sodium [Synthroid] 50 mcg PO DAILY@0630 #30 tab 08/24/16 [Rx] Omeprazole [PriLOSEC] 20 mg PO AC-BID #1 cap 10/28/16 [Rx] Apixaban [Eliquis] 5 mg PO BID 11/27/16 [History] Ferrous Sulfate [Feosol] 325 mg PO BID 11/27/16 [History] Potassium Chloride [Klor-Con 10] 40 meq PO BID 11/29/16 [History] Follow up Appointment(s)/Referral(s): Miracle Guerrero MD [STAFF PHYSICIAN] - 1 Week Patient Instructions/Handouts: Esophageal Stricture (GEN), Esophageal Dilation (DC), Esophageal Spasm (GEN) Activity/Diet/Wound Care/Special Instructions: Liquid diet today. Soft diet tomorrow. Discharge Disposition: HOME SELF-CARE
--- NOTE | 2016-11-29 09:36 | XR ---
EXAMINATION TYPE: XR chest 1V portable DATE OF EXAM: 11/29/2016 COMPARISON: 08/17/2016 HISTORY: Post esophageal dilation TECHNIQUE: Single frontal view of the chest is obtained. FINDINGS: Cardiac device and atherosclerotic change aorta. Interstitial pattern seen no pleural effu shira or pneumothorax. No focal pneumonia. Biapical pleural IMPRESSION: 1. Correlate for COPD and chronic interstitial lung disease. Interstitial pneumonitis or mild venous congestion less likely consideration. Correlate clinically.
[2016-11-29] MEDS ORDERED: NALOXONE 0.4 MG/ML 1 ML VIAL IV PRN (09:45)
[2016-11-29] MEDS ORDERED: ACETAMINOPHEN TAB 325 MG TAB PO PRN (09:45)
[2016-11-29] MEDS ORDERED: BENZOCAINE/MENTHOL LOZENG 1 EACH LOZENGE MUCOUS MEM PRN (09:45)
[2016-11-29] MEDS ORDERED: ONDANSETRON 4 MG/2 ML VIAL IVP PRN (09:45)
--- NOTE | 2016-11-29 09:48 | P.PN ---
Progress Note - Text Patient reports separate lower abdominal pain. No reports of pain or discomfort from her upper endoscopy. With her multiple medical cor morbidities including atrial fibrillation, recommended observation. Will need additional studies including CT of the abdomen and pelvis. Also will repeat CBC for history of anemia.
[2016-11-29] MEDS: SODIUM CHLORIDE 0.9% 1,000 ML IV SCH (10:29)
[2016-11-29] MEDS ORDERED: fentaNYL (PF) 50 MCG/ML 2 ML AMP IVP ONE (10:40)
[2016-11-29] MEDS: HYDROmorphone 1 MG/ML 1 ML SYRINGE IV PRN ×2 (12:11→21:45)
[2016-11-29] MEDS ORDERED: HYDROmorphone 1 MG/ML 1 ML SYRINGE IVP ONE (12:26)
[2016-11-29] MEDS ORDERED: LORazepam 2 MG/ML SYRINGE IV ONE (14:10)
[2016-11-29 15:14] LABS: Basophils # (A) 0.1 k/uL (0-0.2); Basophils % (A) 1 %; CH 24.1; CHCM 28.5; Eosinophils # (A) 0.3 k/uL (0-0.7); Eosinophils % (A) 5 %; HCT 26.7 % (34.0-46.0); HGB 7.6 gm/dL (11.4-16.0); Hypochromasia Marked; Luc # (Auto) 0.16; Luc % (Auto) 3; Lymphocytes # (A) 1.6 k/uL (1.0-4.8); Lymphocytes % (A) 30 %; MCHC 28.3 g/dL (31.0-37.0); MCV 84.8 fL (80.0-100.0); Mean Platelet Volume 8.7; Monocytes # (A) 0.2 k/uL (0-1.0); Monocytes % (A) 4 %; Neutrophils # (A) 2.9 k/uL (1.3-7.7); Neutrophils % (A) 56 %; RBC 3.15 m/uL (3.80-5.40); RDW 15.8 % (11.5-15.5); WBC 5.2 k/uL (3.8-10.6); WBC (Perox) 5.13
[2016-11-29 15:30] LABS: AST 23 U/L (14-36); Alkaline Phosphatase 77 U/L (38-126); Amylase 38 U/L (30-110); Anion Gap 7 mmol/L; Blood Urea Nitrogen 9 mg/dL (7-17); Calcium 7.7 mg/dL (8.4-10.2); Carbon Dioxide 31 mmol/L (22-30); Chloride 102 mmol/L (98-107); Glucose 91 mg/dL (74-99); Non-African American GFR(MDRD) >60 (>60 ml/min/1.73 sqM); Phosphorous 2.1 mg/dL (2.5-4.5); Sodium 140 mmol/L (137-145); Total Bilirubin <0.1 mg/dL (0.2-1.3); Total Protein 6.3 g/dL (6.3-8.2)
[2016-11-29 15:32] LABS: ALT 25 U/L (9-52); Magnesium 1.4 mg/dL (1.6-2.3)
[2016-11-29 15:44] LABS: Potassium 2.7 mmol/L (3.5-5.1)
[2016-11-29] MEDS: MAGNESIUM SULFATE-D5W PMX 1 GM in DEXTROSE/WATER 1 100ML.BAG IVPB SCH ×4 (16:59→21:37)
[2016-11-29] MEDS: POTASSIUM CHLORIDE 10 MEQ, LIDOCAINE 2% INJ 10 MG in SODIUM CHLORIDE 0.9% 100 ML IVPB SCH ×4 (17:47→21:37)
[2016-11-29 18:28] LABS: % Iron Saturation 3.2 % (20-50)
[2016-11-29] MEDS: HYDROcodone/APAP 5-325MG 1 EACH TAB PO PRN (18:46)
[2016-11-29] MEDS: SODIUM PHOSPHATE 10 MMOL in SODIUM CHLORIDE 0.9% 250 ML IVPB SCH ×2 (20:11→22:57)
[2016-11-29] MEDS: HEPARIN SODIUM,PORCINE 5,000 UNIT/ML 1 ML VIAL SQ SCH (20:17)
[2016-11-30] MEDS: SODIUM CHLORIDE 0.9% 1,000 ML IV SCH ×2 (00:36→17:04)
[2016-11-30] MEDS: SODIUM FERRIC GLUCONAT-SUCROSE 125 MG in SODIUM CHLORIDE 0.9% 100 ML IVPB SCH ×2 (00:36→21:25)
[2016-11-30] MEDS: HYDROcodone/APAP 5-325MG 1 EACH TAB PO PRN ×5 (04:10→21:28)
[2016-11-30 06:58] LABS: Basophils % (A) 1 %; CH 23.5; CHCM 27.7; Eosinophils # (A) 0.3 k/uL (0-0.7); Eosinophils % (A) 5 %; HCT 26.8 % (34.0-46.0); HDW 2.76; HGB 7.7 gm/dL (11.4-16.0); Hypochromasia Marked; Luc # (Auto) 0.17; Luc % (Auto) 3; Lymphocytes # (A) 0.9 k/uL (1.0-4.8); Lymphocytes % (A) 15 %; MCH 24.6 pg (25.0-35.0); MCHC 28.9 g/dL (31.0-37.0); MCV 85.1 fL (80.0-100.0); Mean Platelet Volume 6.7; Monocytes # (A) 0.3 k/uL (0-1.0); Monocytes % (A) 5 %; Neutrophils # (A) 4.5 k/uL (1.3-7.7); Neutrophils % (A) 72 %; RBC 3.15 m/uL (3.80-5.40); RDW 15.6 % (11.5-15.5); WBC 6.2 k/uL (3.8-10.6)
[2016-11-30 07:11] LABS: Anion Gap 7 mmol/L; Blood Urea Nitrogen 4 mg/dL (7-17); Calcium 7.3 mg/dL (8.4-10.2); Carbon Dioxide 25 mmol/L (22-30); Chloride 108 mmol/L (98-107); Glucose 92 mg/dL (74-99); Magnesium 2.1 mg/dL (1.6-2.3); Non-African American GFR(MDRD) >60 (>60 ml/min/1.73 sqM); Phosphorous 2.2 mg/dL (2.5-4.5); Potassium 3.2 mmol/L (3.5-5.1); Sodium 140 mmol/L (137-145)
--- NOTE | 2016-11-30 08:08 | P.PN ---
Subjective 71-year-old female being seen on rounds this morning currently resting in bed. Tolerating diet. Denies shortness of breath chest pain heart palpitations when questioning. Monitor showing sinus rhythm. Patient does have a history of having a permanent pacemaker. Patient states after having her gallbladder taken out in October she has had problems with keeping her potassium and magnesium in the therapeutic range. The potassium this morning 3.2 -2.1. Patient reports no nausea no vomiting. Patient reports no discomfort. Patient underwent a EGD with dilatation for esophageal dysmotility done on November 29 Objective - Vital Signs Vital signs: Vital Signs Temp 98 F 11/30/16 04:00 Pulse 76 11/30/16 04:00 Resp 18 11/30/16 04:00 BP 110/58 11/30/16 04:00 Pulse Ox 96 11/30/16 04:00 Intake & Output 11/29/16 11/30/16 11/30/16 18:59 06:59 18:59 Intake Total 400 2840 Balance 400 2840 Intake: IV 400 Intake, IV Titration 2000 Amount Magnesium Sulfate-D5w Pmx 500 1 gm In Dextrose/Water 1 100ml.bag @ 100 mls/hr IVPB Q1H [facility] Rx#: [id number] Potassium Chloride 10 meq 400 Lidocaine 2% Inj 10 mg In Sodium Chloride 0.9% 100 ml @ 100 mls/hr IVPB Q1HR [facility] Rx#:[id number] Sodium Chloride 0.9% 1, 600 000 ml @ 75 mls/hr IV . [id number] [facility] Rx#:[id number] Sodium Ferric Gluconat- 125 Sucrose 125 mg In Sodium Chloride 0.9% 100 ml @ 100 mls/hr IVPB HS [facility] Rx #:[id number] Sodium Phosphate 10 mmol 375 In Sodium Chloride 0.9% 250 ml @ 125 mls/hr IVPB Q2H [facility] Rx#:[id number] Oral 840 Other: Voiding Method Toilet Toilet # Voids 1 2 - Exam Physical exam 71-year-old female resting in bed taking a clear liquid diet tolerating states has no difficulty in swallowing complaints of lower back pain which patient states is being worked up by orthopedic service Lungs essentially clear adequate air movement Heart S1-S2 audible regular monitor sinus rhythm denying chest pain rate controlled Abdomen soft nontender no nausea no vomiting no frequent stooling no difficulty in urinating Extremities no edema noted - Labs CBC & Chem 7: 11/30/16 06:16 11/30/16 06:16 Labs: Abnormal Lab Results - Last 24 Hours (Table) 11/29/16 11/29/16 11/29/16 Range/Units 15:04 15:04 15:04 RBC 3.15 L (3.80-5.40) m/uL Hgb 7.6 L (11.4-16.0) gm/dL Hct 26.7 L (34.0-46.0) % MCH 24.0 L (25.0-35.0) pg MCHC 28.3 L (31.0-37.0) g/dL RDW 15.8 H (11.5-15.5) % Lymphocytes # (1.0-4.8) k/uL Potassium 2.7 L* (3.5-5.1) mmol/L Chloride (98-107) mmol/L Carbon Dioxide 31 H (22-30) mmol/L BUN (7-17) mg/dL Calcium 7.7 L (8.4-10.2) mg/dL Phosphorus 2.1 L (2.5-4.5) mg/dL Magnesium 1.4 L (1.6-2.3) mg/dL Iron 12 L (37-170) ug/dL % Saturation 3.2 L (20-50) % Ferritin 8 L (11-264) ng/mL Total Bilirubin <0.1 L (0.2-1.3) mg/dL Albumin 3.4 L (3.5-5.0) g/dL 11/30/16 11/30/16 Range/Units 06:16 06:16 RBC 3.15 L (3.80-5.40) m/uL Hgb 7.7 L (11.4-16.0) gm/dL Hct 26.8 L (34.0-46.0) % MCH 24.6 L (25.0-35.0) pg MCHC 28.9 L (31.0-37.0) g/dL RDW 15.6 H (11.5-15.5) % Lymphocytes # 0.9 L (1.0-4.8) k/uL Potassium 3.2 L (3.5-5.1) mmol/L Chloride 108 H (98-107) mmol/L Carbon Dioxide (22-30) mmol/L BUN 4 L (7-17) mg/dL Calcium 7.3 L (8.4-10.2) mg/dL Phosphorus 2.2 L (2.5-4.5) mg/dL Magnesium (1.6-2.3) mg/dL Iron (37-170) ug/dL % Saturation (20-50) % Ferritin (11-264) ng/mL Total Bilirubin (0.2-1.3) mg/dL Albumin (3.5-5.0) g/dL Assessment and Plan Plan: Impression History of dysphasia with epigastric discomfort History of previous dilatation of the esophagus Chronic lower back pain History of esophageal stricture Status post November 29 EGD with esophageal dilatation Severe electrolyte abnormality hypo-clean with hypo-magnesium Plan Potassium will be replaced monitor the response Resume home meds as appropriate Diet as ordered Prepped for probable discharge in the next 24 hours The above impression and plan of care have been discussed and directed by signing physician. China Edgar nurse practitioner acting as scribe for signing physician.
[2016-11-30] MEDS: HEPARIN SODIUM,PORCINE 5,000 UNIT/ML 1 ML VIAL SQ SCH (08:55)
[2016-11-30] MEDS: POTASSIUM CHLORIDE 10 MEQ, LIDOCAINE 2% INJ 10 MG in SODIUM CHLORIDE 0.9% 100 ML IVPB SCH ×4 (08:55→12:26)
[2016-11-30] MEDS ORDERED: SUMAtriptan SUCCINATE 25 MG TAB PO STA ×2 (11:57→14:56)
[2016-11-30] MEDS ORDERED: SUMAtriptan SUCCINATE 50 MG TAB PO PRN (14:32)
[2016-11-30] MEDS ORDERED: SUCRALFATE 1 GM TAB PO SCH (15:00)
[2016-11-30] MEDS: GABAPENTIN 300 MG CAP PO SCH ×2 (16:28→22:33)
--- NOTE | 2016-11-30 17:33 | P.CONS ---
History of Present Illness - Reason for Consult Recommendations regarding antibiotic correlation for atrial fibrillation, m - History of Present Illness Patient is a 69-year-old female was admitted for cholecystectomy. Patient is status post cystectomy and patient underwent esophageal dilation procedure as well. Patient is found to have hiatal hernia as well. Patient does have history of atrial fibrillation and permanent pacemaker. Patient is on anticoagulation with Apixiban which is being held with concerns of anemia. Patient does not have any signs or symptoms of acute GI bleed at this point of time patient has normal bowel movements is on iron supplementation because of which patient is bit constipated and occasionally has dark stools. Patient denied any upper GI bleed. Patient denied any frequency of bowel movements. Patient will be initiated back on anti-correlation. Patient does have severe nutritional deficiency leading to L Owen abnormalities and 9 deficiency anemia. Patient's serum iron is extremely low. Patient will require IV iron transfusion which will be done daily basis as long as she is here that is probably today and tomorrow and may need I and transfusion as an outpatient as well. Patient's hemoglobin is presently 7.4 will not require any blood transfusion. Patient denied any lightheadedness denied any nausea vomiting at this point of time. Review of Systems REVIEW OF SYSTEMS: CONSTITUTIONAL: No fever, no malaise, no fatigue. HEENT: No recent visual problems or hearing problems. Denied any sore throat. CARDIOVASCULAR: No chest pain, orthopnea, PND, no palpitations, no syncope. PULMONARY: No shortness of breath, no cough, no hemoptysis. GASTROINTESTINAL: No diarrhea, no nausea, no vomiting, no abdominal pain. Normoactive bowel sounds. NEUROLOGICAL: No headaches, no weakness, no numbness. HEMATOLOGICAL: Denies any bleeding or petechiae. GENITOURINARY: Denies any burning micturition, frequency, or urgency. MUSCULOSKELETAL/RHEUMATOLOGICAL: Denies any joint pain, swelling, or any muscle pain. ENDOCRINE: Denies any polyuria or polydipsia. The rest of the 14-point review of systems is negative. Past Medical History Past Medical History: Atrial Fibrillation, Coronary Artery Disease (CAD), Chest Pain / Angina, COPD, Fibromyalgia, GERD/Reflux, GI Bleed, Hypertension, Osteoarthritis (OA), Thyroid Disorder Additional Past Medical History / Comment(s): Pt having trouble swallowing.pacemaker insertion at [facility] in June 2016 for syncopy/tachybrady syndrome-she was then able to have an EGD with dilation, paroxysmal AFib and has had RVR, 10/2014 pt had bradycardia thought to be from beta farshad/over tx of thyroid, rheumatic fever, heart murmur, chronic back and bilateral shoulder pain, L4 fx after a fall in 2012 and "recently found 2 fx thoraic vertebre- supposed to wear a brace but not with pt at time of thiks admit, severe osteoporosis, dee ear sx (stapedectomy) and has vertigo now if she tips her head back, hypothyroid, DJD, GI ulcers, esophagitis/esophageal stricture. Pt states she has had a IA in 2002 but taylor states technical maintenance specialist said that it wasn't a IA. Last Myocardial Infarction Date:: 2002 History of Any Multi-Drug Resistant Organisms: None Reported Past Surgical History: Appendectomy, Cardiac Ablation, Cholecystectomy, Ear Surgery, Heart Catheterization, Hysterectomy, Orthopedic Surgery, Pacemaker, Tonsillectomy Additional Past Surgical History / Comment(s): Dorothy 10-26-16,ORIF LEFT LOWER ARM. Numerous DILATATION OF ESOPHAGUS-recently done in 06/2016 at [facility] pt stated bx were neg, colonoscopy 2014, pacemaker placed 07/07 at [facility], cardiac cath in 2002, bilateral stapedectomies Past Anesthesia/Blood Transfusion Reactions: Motion Sickness, Postoperative Nausea & Vomiting (PONV) Additional Past Anesthesia/Blood Transfusion Reaction / Comm: no problems with prior blood transfusion Type of Cardiac Device: Permanent Pacemaker Device Placement Date:: 06/2016 Past Psychological History: Anxiety, Depression Additional Psychological History / Comment(s): PANIC ATTACK. Pt resides alone in a single level duplex that has 1 step to enter.has a pet bird. Uses a cane when up(hx of falls). She has depression but believes it due to her multiple health issues. No thoughts of suicide of wishing she were . She drives. Smoking Status: Unknown if ever smoked Past Alcohol Use History: None Reported Additional Past Alcohol Use History / Comment(s): Lives alone Past Drug Use History: None Reported - Past Family History Brother(s) Family Medical History: Cancer Additional Family Medical History / Comment(s): throat Father Family Medical History: COPD, Pneumonia Additional Family Medical History / Comment(s): emphysema Mother Family Medical History: COPD, Rheumatoid Arthritis (RA) Additional Family Medical History / Comment(s): smoked, emphysema, osteoporosis. Medications and Allergies Home Medications Medication Instructions Recorded Confirmed Type Gabapentin [Neurontin] 300 mg PO TID 02/15/16 11/30/16 History Magnesium Gluconate [Magonate] 500 mg PO DAILY 02/15/16 11/30/16 History SUMAtriptan SUCCINATE [Imitrex] 50 mg PO BID PRN 02/15/16 11/30/16 History Acetaminophen [Tylenol] 650 mg PO Q6H PRN 07/17/16 11/30/16 History Sucralfate [Carafate] 1 gm PO Q6H 07/17/16 11/30/16 History Apixaban [Eliquis] 5 mg PO BID 11/27/16 11/30/16 History Ferrous Sulfate [Feosol] 325 mg PO BID 11/27/16 11/30/16 History Potassium Chloride [Klor-Con 10] 40 meq PO BID 11/29/16 11/30/16 History Allergies Allergy/AdvReac Type Severity Reaction Status Date / Time adhesive Allergy RASH FROM Verified 11/29/16 08:10 EKG STICKERS celecoxib [From Celebrex] Allergy Rash/Hives Verified 11/29/16 08:10 sertraline HCl [From Zoloft] Allergy Rash/Hives Verified 11/29/16 08:10 sulfamethoxazole Allergy Anaphylaxis Verified 11/29/16 08:10 [From Bactrim] trimethoprim [From Bactrim] Allergy Anaphylaxis Verified 11/29/16 08:10 Physical Exam Vitals: Vital Signs Temp Pulse Resp BP Pulse Ox 11/30/16 16:00 83 17 11/30/16 15:31 98.3 F 83 17 125/58 91 L 11/30/16 12:00 81 18 11/30/16 11:34 97.7 F 81 18 125/65 98 11/30/16 08:00 98.2 F 77 18 112/56 90 L 11/30/16 04:00 98 F 76 18 110/58 96 11/30/16 00:00 72 18 11/29/16 23:32 83 18 120/68 94 L 11/29/16 20:00 84 18 11/29/16 19:33 98.0 F 90 18 139/71 96 Intake and Output 11/30/16 11/30/16 11/30/16 06:59 14:59 22:59 Intake Total 1200 680 Balance 1200 680 Intake: Intake, IV Titration 950 Amount Magnesium Sulfate-D5w Pmx 100 1 gm In Dextrose/Water 1 100ml.bag @ 100 mls/hr IVPB Q1H [facility] Rx#: [id number] Sodium Chloride 0.9% 1, 600 000 ml @ 75 mls/hr IV . [id number] [facility] Rx#:[id number] Sodium Ferric Gluconat- 125 Sucrose 125 mg In Sodium Chloride 0.9% 100 ml @ 100 mls/hr IVPB HS [facility] Rx #:[id number] Sodium Phosphate 10 mmol 125 In Sodium Chloride 0.9% 250 ml @ 125 mls/hr IVPB Q2H [facility] Rx#:[id number] Oral 250 680 Other: Voiding Method Toilet Toilet Toilet # Voids 2 1 PHYSICAL EXAMINATION: GENERAL: The patient is alert and oriented x3, not in any acute distress. Well developed, well nourished. HEENT: Pupils are round and equally reacting to light. EOMI. patient does have scleral icterus. No conjunctival pallor. Normocephalic, atraumatic. No pharyngeal erythema. No thyromegaly. CARDIOVASCULAR: S1 and S2 present. No murmurs, rubs, or gallops. PULMONARY: Chest is clear to auscultation, no wheezing or crackles. ABDOMEN: Soft, nontender, nondistended, normoactive bowel sounds. No palpable organomegaly. MUSCULOSKELETAL: No joint swelling or deformity. EXTREMITIES: No cyanosis, clubbing, or pedal edema. NEUROLOGICAL: Gross neurological examination did not reveal any focal deficits. SKIN: No rashes. Results CBC & Chem 7: 11/30/16 06:16 11/30/16 06:16 Labs: Abnormal Lab Results - Last 24 Hours (Table) 11/29/16 11/30/16 11/30/16 Range/Units 15:04 06:16 06:16 RBC 3.15 L (3.80-5.40) m/uL Hgb 7.7 L (11.4-16.0) gm/dL Hct 26.8 L (34.0-46.0) % MCH 24.6 L (25.0-35.0) pg MCHC 28.9 L (31.0-37.0) g/dL RDW 15.6 H (11.5-15.5) % Lymphocytes # 0.9 L (1.0-4.8) k/uL Potassium 3.2 L (3.5-5.1) mmol/L Chloride 108 H (98-107) mmol/L BUN 4 L (7-17) mg/dL Calcium 7.3 L (8.4-10.2) mg/dL Phosphorus 2.2 L (2.5-4.5) mg/dL Iron 12 L (37-170) ug/dL % Saturation 3.2 L (20-50) % Ferritin 8 L (11-264) ng/mL Assessment and Plan Plan: #1 severe anemia: Patient does not have any acute evidence of acute bleed. Patient does have chronic anemia chronic and deficiency probably nutritional deficiency. Management as mentioned above. #2 severe left leg abnormalities which will be replaced this is again secondary to nutritional deficiency. 3 cholecystectomy and esophageal reduction procedure: Management as per primary service. #4 atrial fibrillation presently rate controlled patient appears to have sick sinus syndrome, continue anticoagulation as mentioned above as patient is not acutely bleeding at this time. #5 migraine: Continue with Sumatriptan and as-needed basis. #6 fibromyalgia next and #7 gastroesophageal reflux disease and hiatal hernia. #7 coronary artery disease #8 hypothyroidism For above-mentioned chronic medical problems her home medications can be continued and medication reconciliation was done
[2016-11-30] MEDS ORDERED: RX INFO: IV CONTRAST WAS GIVEN 1 EACH MISC MISCELLANE PRN (19:42)
--- NOTE | 2016-11-30 19:51 | P.PN ---
Progress Note - Text Patient seen and evaluated this evening. She reports able to tolerate eating foods and taking her tablets which she has not been able to do no more 5+ years. She is tearful including joyful that her dysphagia has moderately improved since her upper endoscopy. She has separate concerns regarding bilateral lower abdominal pain which is unrelated to her upper endoscopy. She had her blood work which came back with anemia as her previous blood count less than 3 days ago was 8.3. She reports having bleeding with the Eliquis. Her multiple blood work came back consistent with multiple electrolyte dyscrasias including symptomatic hypomagnesia, symptomatic hypokalemia, hypophosphatemia, including intermittent atrial fibrillation with rapid ventricular response. In light of these findings, I do recommend full inpatient admission with her multiple electrolyte abnormalities including history of dysphagia, lower abdominal pain and acute on chronic atrial fibrillation without rapid ventricular response. Recommend correction of multiple electrolytes abdnormalities, monitoring of her cardiac status, including further workup of her abdominal pain.
--- NOTE | 2016-11-30 19:55 | P.PN ---
Progress Note - Text Patient seen and evaluated this evening. She reports bilateral lower abdominal pain which is unrelated to her upper endoscopy. She also confirms having a run of A. fib and had been symptomatic. Hospitalist team is following. I had further discussion with her regarding her hemoglobin being less than 8 with an underlying cardiac status. Recommend CT of the abdomen and pelvis for bilateral lower abdominal pain. Also recommend will need outpatient colonoscopy with her history of blood stools while being on Eliquis. Recommending continued iron infusions for ideal iron absorption. For her esophageal dysphagia, she has moderate relief from her upper endoscopy with rigid dilatation. May continue Prilosec however may discontinue Carafate. Soft food diet. Recommend complete correction of all electrolyte abnormalities prior to discharge home. Patient has been started on Eliquis per suggestion of medicine team. We will recheck her CBC and look for signs of bleeding. Alternatively, as she has symptomatic anemia discussion of blood transfusions was also reviewed pending her repeat CBC as well.
[2016-11-30] MEDS: IOHEXOL 350 MG/ML 25 ML BOTTLE (ORAL USE) PO PRN ×2 (20:11→21:16)
[2016-11-30] MEDS: LORazepam 2 MG/ML SYRINGE IV PRN (20:14)
--- NOTE | 2016-11-30 20:25 | XR ---
EXAMINATION TYPE: XR chest 1V DATE OF EXAM: 11/30/2016 COMPARISON: 11/29/2016 HISTORY: Pulmonary edema, esophageal dilation performed yesterday. Electrolyte imbalance. TECHNIQUE: Single frontal view of the chest is obtained. FINDINGS: Cardiac pacemaker present. There is no pneumothorax or evident pleural effusions. Mildly e nlarged cardiac silhouette redemonstrated. There is a fine reticular pattern of increased density thr oughout the lung parenchyma symmetrically, likely reflecting mild pulmonary edema. IMPRESSION: SUSPECT MILD INTERSTITIAL PHASE PULMONARY EDEMA.
[2016-11-30] MEDS: SODIUM PHOSPHATE 10 MMOL in SODIUM CHLORIDE 0.9% 250 ML IVPB SCH ×2 (20:27→22:33)
[2016-11-30] MEDS: APIXABAN 5 MG TAB PO SCH (21:16)
--- NOTE | 2016-11-30 22:48 | CT ---
EXAM: CT Abdomen and Pelvis With Intravenous Contrast CLINICAL HISTORY: Reason: Abdominal pain TECHNIQUE: Axial computed tomography images of the abdomen and pelvis with intravenous contrast. Coronal and sagittal reformats were obtained. CTDI is 5.60 mGy and DLP is 361.60 mGy-cm. This CT exam was performed using one or more of the following dose reduction techniques: automated exposure control, adjustment of the mA and/or kV according to patient size, and/or use of iterative reconstruction technique. COMPARISON: CT abdomen pelvis 10/25/16 FINDINGS: Lower thorax: Small hiatal hernia. ABDOMEN: Liver: Unremarkable. No mass. Gallbladder and bile ducts: Gallbladder is surgically absent. Mild prominence of the common duct is likely related to cholecystectomy but correlate with labs for biliary stasis. Pancreas: Pancreatic duct is upper limits of normal but unchanged from prior. Spleen: Unremarkable. No splenomegaly. Adrenals: Unremarkable. No mass. Kidneys and ureters: Unremarkable. No solid mass. No hydronephrosis. Stomach and bowel: Moderate amount of retained stool in the colon. No obstruction. No mucosal thickening. Appendix: No findings to suggest acute appendicitis. PELVIS: Bladder: Unremarkable. Reproductive: Uterus is surgically absent. ABDOMEN and PELVIS: Intraperitoneal space: Unremarkable. No free air. No significant fluid collection. Bones/joints: Stable superior endplate deformity of L4. No acute fracture. Vasculature: No abdominal aortic aneurysm. Lymph nodes: Unremarkable. No enlarged lymph nodes. IMPRESSION: 1. Mild prominence of the common duct is likely related to cholecystectomy but correlate with labs for biliary stasis. 2. Pancreatic duct is upper limits of normal but unchanged from prior.
[2016-12-01] MEDS: HYDROcodone/APAP 5-325MG 1 EACH TAB PO PRN ×5 (01:12→20:24)
[2016-12-01] MEDS: SODIUM PHOSPHATE 10 MMOL in SODIUM CHLORIDE 0.9% 250 ML IVPB SCH (02:45)
[2016-12-01] MEDS ORDERED: LEVOTHYROXINE 50 MCG TAB PO SCH (06:30)
[2016-12-01 07:09] LABS: Anisocytosis Slight; CH 23.9; CHCM 28.1; HCT 25.9 % (34.0-46.0); HDW 2.94; HGB 7.2 gm/dL (11.4-16.0); Hypochromasia Marked; MCH 23.9 pg (25.0-35.0); MCV 85.4 fL (80.0-100.0); Mean Platelet Volume 7.5; RBC 3.03 m/uL (3.80-5.40); RDW 16.2 % (11.5-15.5); WBC 4.7 k/uL (3.8-10.6)
[2016-12-01] MEDS ORDERED: PANTOPRAZOLE 40 MG TABLET PO SCH (07:30)
[2016-12-01 07:46] LABS: Anion Gap 10 mmol/L; Blood Urea Nitrogen <2 mg/dL (7-17); Calcium 7.2 mg/dL (8.4-10.2); Carbon Dioxide 21 mmol/L (22-30); Chloride 112 mmol/L (98-107); Glucose 80 mg/dL (74-99); Magnesium 1.6 mg/dL (1.6-2.3); Non-African American GFR(MDRD) >60 (>60 ml/min/1.73 sqM); Phosphorous 3.4 mg/dL (2.5-4.5); Sodium 143 mmol/L (137-145)
[2016-12-01] MEDS: GABAPENTIN 300 MG CAP PO SCH ×2 (08:33→17:00)
[2016-12-01] MEDS: LORazepam 2 MG/ML SYRINGE IV PRN ×2 (08:33→15:13)
[2016-12-01] MEDS: APIXABAN 5 MG TAB PO SCH (08:33)
--- NOTE | 2016-12-01 08:46 | P.PN ---
Subjective 71-year-old female seen this morning on rounds resting in bed. Denies any difficulty in swallowing. Patient underwent an EGD with dilatation for the esophagus feel this mobility labs were reviewed this morning hemoglobin 7.2 was 7.7 the day before potassium is 3 with magnesium of 1.6 this morning phosphorus is 3.4 patient states that she did have a colonoscopy in the outpatient setting several years ago was told there were no acute findings. Objective - Vital Signs Vital signs: Vital Signs Temp 98.5 F 12/01/16 08:25 Pulse 81 12/01/16 08:25 Resp 16 12/01/16 08:25 BP 155/74 12/01/16 08:25 Pulse Ox 96 12/01/16 08:25 Intake & Output 11/30/16 12/01/16 12/01/16 18:59 06:59 18:59 Intake Total 1940 7000 Balance 1940 7000 Intake: Intake, IV Titration 600 2200 Amount Potassium Chloride 10 meq 100 Lidocaine 2% Inj 10 mg In Sodium Chloride 0.9% 100 ml @ 100 mls/hr IVPB Q1HR [facility] Rx#:[id number] Sodium Chloride 0.9% 1, 500 1200 000 ml @ 75 mls/hr IV . [id number] [facility] Rx#:[id number] Sodium Ferric Gluconat- 200 Sucrose 125 mg In Sodium Chloride 0.9% 100 ml @ 100 mls/hr IVPB HS [facility] Rx #:[id number] Sodium Phosphate 10 mmol 800 In Sodium Chloride 0.9% 250 ml @ 125 mls/hr IVPB Q2H [facility] Rx#:[id number] Oral 1340 4800 Other: Voiding Method Toilet Toilet # Voids 2 2 - Exam Physical exam 71-year-old female resting in bed appears in no acute distress states no difficulty in swallowing Lungs essentially clear adequate air movement Heart S1-S2 audible regular Abdomen soft nontender no nausea vomiting Extremities no edema - Labs CBC & Chem 7: 12/01/16 06:46 12/01/16 06:46 Labs: Abnormal Lab Results - Last 24 Hours (Table) 12/01/16 12/01/16 Range/Units 06:46 06:46 RBC 3.03 L (3.80-5.40) m/uL Hgb 7.2 L (11.4-16.0) gm/dL Hct 25.9 L (34.0-46.0) % MCH 23.9 L (25.0-35.0) pg MCHC 28.0 L (31.0-37.0) g/dL RDW 16.2 H (11.5-15.5) % Potassium 3.0 L* (3.5-5.1) mmol/L Chloride 112 H (98-107) mmol/L Carbon Dioxide 21 L (22-30) mmol/L BUN <2 L (7-17) mg/dL Calcium 7.2 L (8.4-10.2) mg/dL Assessment and Plan Plan: Impression History of dysphasia with epigastric discomfort History of previous dilatation of the esophagus Chronic lower back pain History of esophageal stricture Status post November 29 EGD with esophageal dilatation Severe electrolyte abnormality hypo-k with hypo-magnesium Plan Potassium will be replaced monitor the response Resume home meds as appropriate Diet as ordered Prepped for probable discharge in the next 24 hours Repeat labs this afternoon Patient will receive another dose of iv iron The above impression and plan of care have been discussed and directed by signing physician. China Edgar nurse practitioner acting as scribe for signing physician.
[2016-12-01] MEDS ORDERED: MAGNESIUM OXIDE 400 MG TAB PO SCH (09:00)
[2016-12-01] MEDS ORDERED: POTASSIUM CHLORIDE 20 MEQ in WATER FOR INJECTION 1 100ML.BAG IVPB SCH (10:00)
[2016-12-01] MEDS: POTASSIUM CHLORIDE 10 MEQ, LIDOCAINE 2% INJ 10 MG in SODIUM CHLORIDE 0.9% 100 ML IVPB SCH ×4 (10:00→15:13)
[2016-12-01 11:25] LABS: Vitamin B12 456 pg/mL
[2016-12-01] MEDS: MAGNESIUM SULFATE-D5W PMX 1 GM in DEXTROSE/WATER 1 100ML.BAG IVPB SCH ×3 (12:49→18:12)
[2016-12-01 12:54] LABS: Anisocytosis Slight; CHCM 27.9; HCT 25.8 % (34.0-46.0); HDW 2.96; HGB 7.2 gm/dL (11.4-16.0); Hypochromasia Marked; MCHC 27.8 g/dL (31.0-37.0); MCV 86.4 fL (80.0-100.0); Mean Platelet Volume 7.6; RBC 2.99 m/uL (3.80-5.40); RDW 16.2 % (11.5-15.5); WBC 4.5 k/uL (3.8-10.6)
--- NOTE | 2016-12-01 15:21 | P.PN ---
Subjective Patient is is doing much better today. No patient is a little meds will be supplemented and patient can be discharged from medical perspective. Objective - Vital Signs Vital signs: Vital Signs Temp 98.5 F 12/01/16 08:25 Pulse 81 12/01/16 08:25 Resp 16 12/01/16 08:25 BP 155/74 12/01/16 08:25 Pulse Ox 96 12/01/16 08:25 Intake & Output 11/30/16 12/01/16 12/01/16 18:59 06:59 18:59 Intake Total 194 7000 Balance 1939 7000 Weight 53.534 kg Intake: Intake, IV Titration 600 2200 Amount Potassium Chloride 10 meq 100 Lidocaine 2% Inj 10 mg In Sodium Chloride 0.9% 100 ml @ 100 mls/hr IVPB Q1HR [facility] Rx#:[id number] Sodium Chloride 0.9% 1, 500 1200 000 ml @ 75 mls/hr IV . [id number] [facility] Rx#:[id number] Sodium Ferric Gluconat- 200 Sucrose 125 mg In Sodium Chloride 0.9% 100 ml @ 100 mls/hr IVPB HS [facility] Rx #:[id number] Sodium Phosphate 10 mmol 800 In Sodium Chloride 0.9% 250 ml @ 125 mls/hr IVPB Q2H [facility] Rx#:[id number] Oral [id number] 4800 Other: Voiding Method Toilet Toilet Toilet # Voids 2 2 2 - Exam PHYSICAL EXAMINATION: GENERAL: The patient is alert and oriented x3, not in any acute distress. Well developed, well nourished. HEENT: Pupils are round and equally reacting to light. EOMI. No scleral icterus. No conjunctival pallor. Normocephalic, atraumatic. No pharyngeal erythema. No thyromegaly. CARDIOVASCULAR: S1 and S2 present. No murmurs, rubs, or gallops. PULMONARY: Chest is clear to auscultation, no wheezing or crackles. ABDOMEN: Soft, nontender, nondistended, normoactive bowel sounds. No palpable organomegaly. MUSCULOSKELETAL: No joint swelling or deformity. EXTREMITIES: No cyanosis, clubbing, or pedal edema. NEUROLOGICAL: Gross neurological examination did not reveal any focal deficits. SKIN: No rashes. - Labs CBC & Chem 7: 12/01/16 12:34 12/01/16 06:46 Labs: Abnormal Lab Results - Last 24 Hours (Table) 12/01/16 12/01/16 12/01/16 Range/Units 06:46 06:46 12:34 RBC 3.03 L 2.99 L (3.80-5.40) m/uL Hgb 7.2 L 7.2 L (11.4-16.0) gm/dL Hct 25.9 L 25.8 L (34.0-46.0) % MCH 23.9 L 24.0 L (25.0-35.0) pg MCHC 28.0 L 27.8 L (31.0-37.0) g/dL RDW 16.2 H 16.2 H (11.5-15.5) % Potassium 3.0 L* (3.5-5.1) mmol/L Chloride 112 H (98-107) mmol/L Carbon Dioxide 21 L (22-30) mmol/L BUN <2 L (7-17) mg/dL Calcium 7.2 L (8.4-10.2) mg/dL Assessment and Plan Plan: #1 severe anemia: Patient does not have any acute evidence of acute bleed. Patient does have chronic anemia chronic and deficiency probably nutritional deficiency. Management as mentioned above. #2 severe left leg abnormalities which will be replaced this is again secondary to nutritional deficiency. 3 cholecystectomy and esophageal reduction procedure: Management as per primary service. #4 atrial fibrillation presently rate controlled patient appears to have sick sinus syndrome, continue anticoagulation as mentioned above as patient is not acutely bleeding at this time. #5 migraine: Continue with Sumatriptan and as-needed basis. #6 fibromyalgia next and #7 gastroesophageal reflux disease and hiatal hernia. #7 coronary artery disease #8 hypothyroidism Patient can be discharged from medical perspective
[2016-12-01 15:59] LABS: Anion Gap 9 mmol/L; Blood Urea Nitrogen <2 mg/dL (7-17); Calcium 7.9 mg/dL (8.4-10.2); Carbon Dioxide 23 mmol/L (22-30); Chloride 112 mmol/L (98-107); Glucose 83 mg/dL (74-99); Non-African American GFR(MDRD) >60 (>60 ml/min/1.73 sqM); Potassium 3.3 mmol/L (3.5-5.1); Sodium 144 mmol/L (137-145)
[2016-12-01] MEDS ORDERED: POTASSIUM CHLORIDE ER 20 MEQ TAB.ER PO STA (19:53)
[2016-12-01 20:15] VITALS: BP 136/77; PULSE 89; TEMP 98
--- NOTE | 2016-12-01 20:20 | P.PN ---
Progress Note - Text Patient seen and reevaluated at bedside. Her daughter is at bedside. Patient reports feeling much better. She tolerated all her diet. Potassium rich diet including increasing potatoes, tomatoes, banana diet were reviewed to help with her potassium. She will continue with her Prilosec. Her daughter reports potential for addictive behavior hence Ativan has not been prescribed.
[2016-12-01] MEDS ORDERED: MAGNESIUM SULFATE-D5W PMX 1 GM in DEXTROSE/WATER 1 100ML.BAG IVPB SCH (21:00)
[2016-12-01] MEDS ORDERED: POTASSIUM CHLORIDE 20 MEQ, LIDOCAINE 2% INJ 20 MG in SODIUM CHLORIDE 0.9% 100 ML IVPB SCH (21:00)
[2016-12-01 22:13] VITALS: RESP 16
--- NOTE | 2016-12-04 17:30 | P.DS ---
Providers Date of admission: 11/30/16 16:31 Expected date of discharge: 12/01/16 Attending physician: Miracle Lima Consults: 11/30/16 14:12 Consult Physician Urgent Consulting Provider: Aparna Garcia Consult Reason/Comments: [facility] [place] Do you want consulting provider notified?: Yes Primary care physician: Elroy Wray - Discharge Diagnosis(es) (1) Iron deficiency anemia due to chronic blood loss Status: Acute (2) Chronic anticoagulation Status: Acute (3) Esophageal stenosis Status: Acute (4) Esophageal dysmotility Status: Acute (5) Atrial flutter with rapid ventricular response Status: Acute (6) CAD (coronary artery disease) Status: Acute (7) Dysphagia Status: Acute (8) Fatigue Status: Acute (9) History of atrial fibrillation Status: Acute (10) Hypokalemia Status: Acute (11) Hypomagnesemia Status: Acute (12) Hypophosphatemia Status: Acute (13) Pacemaker Status: Acute (14) Paroxysmal a-fib Status: Acute (15) Weakness Status: Acute (16) Lower abdominal pain Status: Acute (17) Diana esophagitis Status: Acute Hospital Course: The patient is a 71-year-old female who comes in with pre-existing iron deficiency anemia including severe dysphagia. She had an upper endoscopy with findings consistent with severe stenosis of her upper esophageal sphincter. She required a rigid dilation. She also reported pre-existing fatigue. She has been taking a blood thinner for history of atrial fibrillation. She had blood work done during her outpatient procedure which then demonstrated severe deficiency anemia including multiple electrolyte dyscrasias of hypo-magnesia, hypokalemia symptomatic, hypophosphatemia. As result of her electrolyte abnormalities, she had a short run of atrial fibrillation with rapid ventricular response. In light of her multiple comorbidities, she was admitted for electrolyte correction. She reports having anemia since being placed on her chronic anticoagulant. Under observation, she was restarted on her Eliquis. Symptomatically, her dysphagia had resolved after an upper esophageal dilation. Her lower abdominal pain had improved. She was treated with iron infusions including multiple electrolyte replacements. Prior to discharge, her severe electrolyte abnormalities have improved. Clinically she had symptomatically improved. Pertinent Studies: CT of the abdomen pelvis demonstrating no acute intra-abdominal pathology. Chest x-ray demonstrating mild pulmonary edema. Procedures: Upper endoscopy with rigid dilation. Patient Condition at Discharge: Stable Plan - Discharge Summary New Discharge Prescriptions: Discontinued Sucralfate [Carafate] 1 gm PO Q6H No Action Magnesium Gluconate [Magonate] 500 mg PO DAILY Gabapentin [Neurontin] 300 mg PO TID SUMAtriptan SUCCINATE [Imitrex] 50 mg PO BID PRN PRN Reason: Migraine Headache Acetaminophen [Tylenol] 650 mg PO Q6H PRN PRN Reason: Pain Levothyroxine Sodium [Synthroid] 50 mcg PO DAILY@0630 #30 tab Omeprazole [PriLOSEC] 20 mg PO AC-BID #1 cap Apixaban [Eliquis] 5 mg PO BID Ferrous Sulfate [Feosol] 325 mg PO BID Potassium Chloride [Klor-Con 10] 40 meq PO BID Discharge Medication List Gabapentin [Neurontin] 300 mg PO TID 02/15/16 [History] Magnesium Gluconate [Magonate] 500 mg PO DAILY 02/15/16 [History] SUMAtriptan SUCCINATE [Imitrex] 50 mg PO BID PRN 02/15/16 [History] Acetaminophen [Tylenol] 650 mg PO Q6H PRN 07/17/16 [History] Levothyroxine Sodium [Synthroid] 50 mcg PO DAILY@0630 #30 tab 08/24/16 [Rx] Omeprazole [PriLOSEC] 20 mg PO AC-BID #1 cap 10/28/16 [Rx] Apixaban [Eliquis] 5 mg PO BID 11/27/16 [History] Ferrous Sulfate [Feosol] 325 mg PO BID 11/27/16 [History] Potassium Chloride [Klor-Con 10] 40 meq PO BID 11/29/16 [History] Follow up Appointment(s)/Referral(s): Miracle Lima MD [STAFF PHYSICIAN] - 12/05/16 (FOLLOW UP WITH DR LIMA ON November AT 11:00) [facility], [NON-STAFF] - As Needed Patient Instructions/Handouts: *Surgery [facility] - (Anesthesia) Endoscopy Discharge Instructions, Hypokalemia (GEN), Esophageal Stricture (GEN), Esophageal Dilation (DC), Esophageal Spasm (GEN) Activity/Diet/Wound Care/Special Instructions: Diet as tolerated. Discharge Disposition: HOME SELF-CARE
== END 2016-12-01 21:30 | disposition home or self-care (01) | DRG 392 ==
LOC: ORWHC2ENDO 07:52 → 3OBS 09:00 → ORWHC2ENDO 11-30 16:30 → 3OBS 11-30 16:31 → 3SUR 11-30 17:44
PROVIDERS: ADMIT Surgery Plastic and Reconstructive Surgery; ATTEND Surgery Plastic and Reconstructive Surgery
PROC: 0D758ZZ Dilation of Esophagus, Via Natural or Artificial Opening Endoscopic (ICD-10-PCS; principal; 2016-11-30)
DX: R13.19 Other dysphagia (principal); B37.81 Candidal esophagitis; I48.0 Paroxysmal atrial fibrillation; E83.39 Other disorders of phosphorus metabolism; E83.42 Hypomagnesemia; K22.2 Esophageal obstruction; D64.9 Anemia, unspecified; E03.9 Hypothyroidism, unspecified; E63.9 Nutritional deficiency, unspecified; E87.6 Hypokalemia; F41.0 Panic disorder [episodic paroxysmal anxiety]; G89.29 Other chronic pain; M54.5 Low back pain; I10 Essential (primary) hypertension; I25.10 Atherosclerotic heart disease of native coronary artery without angina pectoris; I25.2 Old myocardial infarction; I48.2 Chronic atrial fibrillation; J44.9 Chronic obstructive pulmonary disease, unspecified; K21.9 Gastro-esophageal reflux disease without esophagitis; K22.4 Dyskinesia of esophagus; K29.70 Gastritis, unspecified, without bleeding; K44.9 Diaphragmatic hernia without obstruction or gangrene; K59.00 Constipation, unspecified; M79.7 Fibromyalgia; Z79.01 Long term (current) use of anticoagulants; Z79.899 Other long term (current) drug therapy; Z82.5 Family history of asthma and other chronic lower respiratory diseases; Z87.11 Personal history of peptic ulcer disease; Z91.81 History of falling; Z95.0 Presence of cardiac pacemaker
CPT/HCPCS: 43249; 71010; 74177; 80048; 80053; 82150; 82607; 82728; 83540; 83550; 83690; 83735; 84100; 84425; 85025; 85027; 86850; 86900; 86901; 88305; 88312

== ENCOUNTER → 2016-12-13 | Outpatient (CLI) | payer MEDICARE, OTHER ==
[2016-12-13 12:17] LABS: Anisocytosis Slight; CH 24.4; CHCM 28.4; HCT 34.2 % (34.0-46.0); HDW 2.62; HGB 10.2 gm/dL (11.4-16.0); Hypochromasia Marked; MCH 25.6 pg (25.0-35.0); MCHC 29.8 g/dL (31.0-37.0); MCV 86.1 fL (80.0-100.0); Mean Platelet Volume 7.4; RBC 3.98 m/uL (3.80-5.40); RDW 18.7 % (11.5-15.5); WBC 6.3 k/uL (3.8-10.6)
[2016-12-13 13:32] LABS: Calcium 11.4 mg/dL (8.4-10.2); Total Bilirubin 0.3 mg/dL (0.2-1.3); Total Protein 7.7 g/dL (6.3-8.2)
== END | disposition home or self-care (01) ==
LOC: LABWHC1 11:31
PROVIDERS: ATTEND Internal Medicine Interventional Cardiology
DX: I10 Essential (primary) hypertension (principal); I48.3 Typical atrial flutter
CPT/HCPCS: 36415; 80053; 85027

== ENCOUNTER 2016-12-18 15:50 | Emergency (ER) | payer MEDICARE, OTHER ==
[2016-12-18] MEDS ORDERED: HYDROmorphone 1 MG/ML 1 ML SYRINGE IVP STA ×2 (16:24→18:55)
[2016-12-18] MEDS ORDERED: SODIUM CHLORIDE 0.9% 1,000 ML IV STA ×2 (16:24)
[2016-12-18] MEDS ORDERED: RX INFO: IV CONTRAST WAS GIVEN 1 EACH MISC MISCELLANE PRN (16:28)
--- NOTE | 2016-12-18 16:28 | ED ---
General Adult HPI - General Chief complaint: Abdominal Pain Stated complaint: abd pain Time Seen by Provider: 12/18/16 16:11 Source: EMS, RN notes reviewed Mode of arrival: EMS Limitations: no limitations - History of Present Illness Initial comments: Patient 71-year-old female who presents emergency room today with chief complaint of left upper quadrant pain meds been constant over the last 2 days. Patient does admit that it's a sharp pain. Cyst located left upper quadrant. She states that she's had some pain on and off for sometime and has been following up with surgeon for a hernia in this area. Patient states that she has had constant pain over the last 2 days. Patient does admit to nausea and vomiting started after pain. Patient denies any other complaints or symptoms. Was given Zofran. EMS stating that nausea was improved but still experiencing pain in this area. Patient denies any recent fever, chills, shortness of breath , chest pain, back pain, numbness or tingling, dysuria or hematuria, constipation or diarrhea, headaches or visual changes, or any other complaints. - Related Data Home Medications Medication Instructions Recorded Confirmed Gabapentin [Neurontin] 300 mg PO TID 02/15/16 12/18/16 Magnesium Gluconate [Magonate] 500 mg PO HS 02/15/16 12/18/16 SUMAtriptan SUCCINATE [Imitrex] 50 mg PO BID PRN 02/15/16 12/18/16 Acetaminophen [Tylenol] 650 mg PO Q6H PRN 07/17/16 12/18/16 Apixaban [Eliquis] 5 mg PO DIRECTED 11/27/16 12/18/16 Ferrous Sulfate [Feosol] 325 mg PO BID 11/27/16 12/18/16 Potassium Chloride [Klor-Con 10] 40 meq PO BID 11/29/16 12/18/16 Previous Rx's Medication Instructions Recorded Levothyroxine Sodium [Synthroid] 50 mcg PO DAILY@0630 #30 tab 08/24/16 Omeprazole [PriLOSEC] 20 mg PO AC-BID #1 cap 10/28/16 Fluconazole [Diflucan] 100 mg PO DAILY #21 tablet 12/05/16 Hydrocodone/Acetaminophen [[place] 1 each PO Q6HR PRN #20 tab 12/18/16 5-325] Ondansetron Odt [Zofran ODT] 4 mg PO Q8HR PRN #20 tab 12/18/16 Allergies Allergy/AdvReac Type Severity Reaction Status Date / Time adhesive Allergy RASH FROM Verified 12/18/16 16:48 EKG STICKERS celecoxib [From Celebrex] Allergy Rash/Hives Verified 12/18/16 16:48 sertraline HCl [From Zoloft] Allergy Rash/Hives Verified 12/18/16 16:48 sulfamethoxazole Allergy Anaphylaxis Verified 12/18/16 16:48 [From Bactrim] trimethoprim [From Bactrim] Allergy Anaphylaxis Verified 12/18/16 16:48 Review of Systems ROS Statement: Those systems with pertinent positive or pertinent negative responses have been documented in the HPI. ROS Other: All systems not noted in ROS Statement are negative. Past Medical History Past Medical History: Atrial Fibrillation, Coronary Artery Disease (CAD), Chest Pain / Angina, Fibromyalgia, GERD/Reflux, GI Bleed, Hypertension, Osteoarthritis (OA), Thyroid Disorder Additional Past Medical History / Comment(s): Pt recently had pacemaker insertion at [facility] in June 2016 for syncopy/tachybrady syndrome-she was then able to have an EGD with dilation, paroxysmal AFib and has had RVR, 10/2014 pt had bradycardia thought to be from beta farshad/over tx of thyroid, rheumatic fever, heart murmur, chronic back and bilateral shoulder pain, L4 fx after a fall in 2012 and "recently found 2 fx thoraic vertebre-supposed to wear a brace but not with pt at time of thiks admit, severe osteoporosis, dee ear sx ( stapedectomy) and has vertigo now if she tips her head back, hypothyroid, DJD, GI ulcers, esophagitis/esophageal stricture. Pt states she has had a [place] in 2002 but taylor states tamale machine feeder said that it wasn't a AK. Last Myocardial Infarction Date:: 2002 History of Any Multi-Drug Resistant Organisms: None Reported Past Surgical History: Appendectomy, Cardiac Ablation, Ear Surgery, Heart Catheterization, Hysterectomy, Orthopedic Surgery, Pacemaker, Tonsillectomy Additional Past Surgical History / Comment(s): ORIF LEFT LOWER ARM. Numerous DILATATION OF ESOPHAGUS-recently done in 06/2016 at [facility] pt stated bx were neg, colonoscopy, pacemaker placed 07/07 at [facility], cardiac cath in 2002, bilateral stapedectomies Past Anesthesia/Blood Transfusion Reactions: Motion Sickness, Postoperative Nausea & Vomiting (PONV) Additional Past Anesthesia/Blood Transfusion Reaction / Comment(s): no problems with prior blood transfusion Type of Cardiac Device: Permanent Pacemaker Device Placement Date:: 06/2016 Past Psychological History: Anxiety, Depression Smoking Status: Unknown if ever smoked Past Alcohol Use History: None Reported Past Drug Use History: None Reported - Past Family History Brother(s) Family Medical History: Cancer Additional Family Medical History / Comment(s): throat Father Family Medical History: COPD, Pneumonia Additional Family Medical History / Comment(s): emphysema Mother Family Medical History: COPD, Rheumatoid Arthritis (RA) Additional Family Medical History / Comment(s): smoked, emphysema, osteoporosis. General Exam - General Exam Comments Initial Comments: General: The patient is awake and alert, in no distress, and does not appear acutely ill. Eye: Pupils are equal, round and reactive to light, extra-ocular movements are intact. No nystagmus. There is normal conjunctiva bilaterally. No signs of icterus. Ears, nose, mouth and throat: There are moist mucous membranes and no oral lesions. Neck: The neck is supple, there is no tenderness or JVD. Cardiovascular: There is a regular rate and rhythm. No murmur, rub or gallop is appreciated. Respiratory: Lungs are clear to auscultation, respirations are non-labored, breath sounds are equal. No wheezes, stridor, rales, or rhonchi. Gastrointestinal: Soft, non-distended. Tender in the epigastric and left upper quadrant. There is no rebound or guarding present. No CVA tenderness. Bowel sounds are unremarkable. Musculoskeletal: Normal ROM, no tenderness. Strength 5/5. Sensation intact. Pulses equal bilaterally 2+. Neurological: A&O x 3. CN II-XII intact, There are no obvious motor or sensory deficits. Coordination appears grossly intact. Speech is normal. Skin: Skin is warm and dry and no rashes or lesions are noted. Psychiatric: Cooperative, appropriate mood & affect, normal judgment. Limitations: no limitations Course Vital Signs 12/18/16 12/18/16 16:00 19:18 Temperature 98.3 F Pulse Rate 87 70 Respiratory 18 16 Rate Blood Pressure 132/66 137/77 O2 Sat by Pulse 99 98 Oximetry Medical Decision Making - Medical Decision Making Case discussed in detail with attending physician Dr. Hidalgo.Patient's CT shows large urinary bladder. Patient has voided since. Does show a dilated pancreatic duct which patient is aware of. There is no evidence for hernia. There is a old mild L4 compression fracture. Patient's labs been reviewed show no acute changes. Results were discussed with patient. Options were discussed about observation. At this time patient feels comfortable being discharged home with pain medication nausea medication and following up with her surgeon tomorrow. She states she will return if any symptoms increase or worsen. - Lab Data Result diagrams: 12/18/16 16:52 12/18/16 16:52 Lab Results 12/18/16 12/18/16 12/18/16 Range/Units 16:52 16:52 19:10 WBC 4.7 (3.8-10.6) k/uL RBC 4.17 (3.80-5.40) m/uL Hgb 10.3 L (11.4-16.0) gm/dL Hct 36.1 (34.0-46.0) % MCV 86.7 (80.0-100.0) fL MCH 24.8 L (25.0-35.0) pg MCHC 28.6 L (31.0-37.0) g/dL RDW 19.3 H (11.5-15.5) % Plt Count 324 (150-450) k/uL Neutrophils % 47 % Lymphocytes % 37 % Monocytes % 8 % Eosinophils % 2 % Basophils % 2 % Neutrophils # 2.2 (1.3-7.7) k/uL Lymphocytes # 1.8 (1.0-4.8) k/uL Monocytes # 0.4 (0-1.0) k/uL Eosinophils # 0.1 (0-0.7) k/uL Basophils # 0.1 (0-0.2) k/uL Hypochromasia Marked Anisocytosis Slight Sodium 139 (137-145) mmol/L Potassium 3.4 L (3.5-5.1) mmol/L Chloride 101 (98-107) mmol/L Carbon Dioxide 27 (22-30) mmol/L Anion Gap 11 mmol/L BUN 14 (7-17) mg/dL Creatinine 1.05 H (0.52-1.04) mg/dL Est GFR (MDRD) Af Amer >60 (>60 ml/min/1.73 sqM) Est GFR (MDRD) Non-Af 52 (>60 ml/min/1.73 sqM) Glucose 84 (74-99) mg/dL Calcium 8.4 (8.4-10.2) mg/dL Total Bilirubin <0.1 L (0.2-1.3) mg/dL AST 22 (14-36) U/L ALT 29 (9-52) U/L Alkaline Phosphatase 71 (38-126) U/L Total Protein 7.1 (6.3-8.2) g/dL Albumin 4.0 (3.5-5.0) g/dL Amylase 92 (30-110) U/L Lipase 214 (23-300) U/L Urine Color Light Yellow Urine Appearance Clear (Clear) Urine pH 7.0 (5.0-8.0) Ur Specific [place] 1.019 (1.001-1.035) Urine Protein Negative (Negative) Urine Glucose (UA) Negative (Negative) Urine Ketones Negative (Negative) Urine Blood Negative (Negative) Urine Nitrite Negative (Negative) Urine Bilirubin Negative (Negative) Urine Urobilinogen <2.0 (<2.0) mg/dL Ur Leukocyte Esterase Negative (Negative) Disposition Clinical Impression: Abdominal pain Disposition: HOME SELF-CARE Condition: Good Instructions: Abdominal Pain (ED) Additional Instructions: Please use medication as discussed. Please follow-up with Surgeon / family doctor in the next 2 days of symptoms have not improved. Please return to emergency room if the symptoms increase or worsen or for any other concerns. Prescriptions: Hydrocodone/Acetaminophen [[place] 5-325] 1 each PO Q6HR PRN #20 tab PRN Reason: Pain Ondansetron Odt [Zofran ODT] 4 mg PO Q8HR PRN #20 tab PRN Reason: Nausea Referrals: Elroy Wray DO [Primary Care Provider] - 1-2 days Miracle Guerrero MD [STAFF PHYSICIAN] - 1-2 days Time of Disposition: 19:58
[2016-12-18 17:00] LABS: Anisocytosis Slight; Basophils # (A) 0.1 k/uL (0-0.2); Basophils % (A) 2 %; Eosinophils # (A) 0.1 k/uL (0-0.7); Eosinophils % (A) 2 %; HCT 36.1 % (34.0-46.0); HDW 2.67; HGB 10.3 gm/dL (11.4-16.0); Hypochromasia Marked; Luc # (Auto) 0.18; Luc % (Auto) 4; Lymphocytes # (A) 1.8 k/uL (1.0-4.8); Lymphocytes % (A) 37 %; MCH 24.8 pg (25.0-35.0); MCHC 28.6 g/dL (31.0-37.0); MCV 86.7 fL (80.0-100.0); Mean Platelet Volume 7.5; Monocytes # (A) 0.4 k/uL (0-1.0); Monocytes % (A) 8 %; Neutrophils # (A) 2.2 k/uL (1.3-7.7); Neutrophils % (A) 47 %; RBC 4.17 m/uL (3.80-5.40); RDW 19.3 % (11.5-15.5); WBC 4.7 k/uL (3.8-10.6); WBC (Perox) 4.68
[2016-12-18 17:12] LABS: ALT 29 U/L (9-52); AST 22 U/L (14-36); Alkaline Phosphatase 71 U/L (38-126); Amylase 92 U/L (30-110); Anion Gap 11 mmol/L; Blood Urea Nitrogen 14 mg/dL (7-17); Calcium 8.4 mg/dL (8.4-10.2); Carbon Dioxide 27 mmol/L (22-30); Chloride 101 mmol/L (98-107); Glucose 84 mg/dL (74-99); Non-African American GFR(MDRD) 52 (>60 ml/min/1.73 sqM); Potassium 3.4 mmol/L (3.5-5.1); Sodium 139 mmol/L (137-145); Total Bilirubin <0.1 mg/dL (0.2-1.3); Total Protein 7.1 g/dL (6.3-8.2)
--- NOTE | 2016-12-18 19:02 | CT ---
EXAMINATION TYPE: CT abdomen pelvis w con DATE OF EXAM: 12/18/2016 COMPARISON: 11/30/2016 HISTORY: Left lower quadrant hernia. CT DLP: 835.00 mGycm Automated exposure control for dose reduction was used. TECHNIQUE: Helical acquisition of images was performed from the lung bases through the pelvis. CONTRAST: Performed without Oral Contrast and with IV Contrast, patient injected with 80 mL of Visipaque 320. FINDINGS: There is mild subsegmental atelectasis at the right lung base. There is no pleural effusion. Heart si ze is normal. There are clips from cholecystectomy. Bile ducts are not dilated. Common bile duct is large but proba blank normal after cholecystectomy. Spleen appears normal. The pancreas shows a prominent pancreatic du ct that measures up to 5 mm distally. I see no pancreatic mass. There is no adrenal mass. Kidneys show satisfactory contrast opacification. There is no hydronephrosi s. There is no retroperitoneal adenopathy. There is no ascites. Bladder distends smoothly. There is n o ascites. Appendix is not seen. There is no sign of appendicitis. There is 20% compression deformity of the superior endplate of L4 vertebral body. Urinary bladder is somewhat dilated.: IMPRESSION: LARGE URINARY BLADDER. THERE IS MILD CHRONIC ECTASIA OF THE PANCREATIC DUCT THAT IS STABLE COMPARED T O 10/25/2016. CHOLECYSTECTOMY. I SEE NO EVIDENCE OF A HERNIA. OLD MILD L4 COMPRESSION FRACTURE.
[2016-12-18 19:21] VITALS: PULSE 70; RESP 16
[2016-12-18 19:23] LABS: Appearance,Urine Clear (Clear); Bilirubin,Urine Negative (Negative); Glucose,Urine (UA) Negative (Negative); Ketones,Urine Negative (Negative); Leukocyte Esterase,Urine Negative (Negative); Nitrite,Urine Negative (Negative); Protein,Urine Negative (Negative); Specific Gravity,Urine 1.019 (1.001-1.035); UA Billing (MACRO vs. MICRO) CHEM; Urobilinogen,Urine <2.0 mg/dL (<2.0)
[2016-12-18 20:21] VITALS: BP 132/60; TEMP 97.9
== END 2016-12-18 20:25 | disposition home or self-care (01) ==
LOC: EC 15:50
DX: R10.12 Left upper quadrant pain (principal); R11.2 Nausea with vomiting, unspecified; K86.89 Other specified diseases of pancreas; L72.8 Other follicular cysts of the skin and subcutaneous tissue; I48.0 Paroxysmal atrial fibrillation; M79.7 Fibromyalgia; F41.9 Anxiety disorder, unspecified; Z79.01 Long term (current) use of anticoagulants; Z79.899 Other long term (current) drug therapy; Z88.1 Allergy status to other antibiotic agents; Z88.6 Allergy status to analgesic agent; Z88.8 Allergy status to other drugs, medicaments and biological substances; Z91.09 Other allergy status, other than to drugs and biological substances; Z90.49 Acquired absence of other specified parts of digestive tract
CPT/HCPCS: 36415; 80053; 82150; 83690; 85025; 81003; 74177; 99285; 96374; 96376; 96361 ×3; Q9967; J1170

== ENCOUNTER 2016-12-27 09:29 | Day surgery (SDC) | payer MEDICARE, OTHER ==
[2016-12-26 09:54] VITALS: BMI 21.5
--- NOTE | 2016-12-27 08:18 | P.GSHP ---
History of Present Illness H&P Date: 12/27/16 CHIEF COMPLAINT: Anemia HISTORY OF PRESENT ILLNESS: The patient is a 71-year-old female who presents for colon evaluation for anemia. Lower endoscopy was offered for further evaluation and management. PAST MEDICAL HISTORY: Please see list. PAST SURGICAL HISTORY: Please see list. MEDICATIONS: Please see list. ALLERGIES: Please see list. SOCIAL HISTORY: No illicit drug use FAMILY HISTORY: No reports of Crohn disease or ulcerative colitis. REVIEW OF ORGAN SYSTEMS: CONSTITUTIONAL: No reports of fevers or chills. PHYSICAL EXAM: VITAL SIGNS: Stable GENERAL: Well-developed pleasant in no acute distress. HEENT: No scleral icterus. Extraocular movements grossly intact. Moist buccal mucosa. NECK: Supple without lymphadenopathy. CHEST: Unlabored respirations. Equal bilateral excursions. CARDIOVASCULAR: Regular rate and rhythm. Distal 2+ pulses. ABDOMEN: Soft, nontender, nondistended. MUSCULOSKELETAL: No clubbing, cyanosis, or edema. ASSESSMENT: 1. Anemia. PLAN: 1. Recommend proceeding with a lower endoscopy Past Medical History Past Medical History: Atrial Fibrillation, Coronary Artery Disease (CAD), Chest Pain / Angina, Fibromyalgia, GERD/Reflux, GI Bleed, Hypertension, Osteoarthritis (OA), Thyroid Disorder Additional Past Medical History / Comment(s): ANEMIA, CURRENT SWELLING BILATERAL ANKLES, chronic back and bilateral shoulder pain, L4 fx after a fall in 2012 and "recently found 2 fx thoraic vertebre-supposed to wear a brace, severe osteoporosis, dee ear sx (stapedectomy) and has vertigo now if she tips her head back, DJD, GI ulcers, hx esophageal stricture. Pt states she has had a [place] in 2002 but taylor states workers compensation consultant said that it wasn't a [place]. Last Myocardial Infarction Date:: 2002 History of Any Multi-Drug Resistant Organisms: None Reported Past Surgical History: Appendectomy, Cardiac Ablation, Ear Surgery, Heart Catheterization, Hysterectomy, Orthopedic Surgery, Pacemaker, Tonsillectomy Additional Past Surgical History / Comment(s): ORIF LEFT LOWER ARM. Numerous DILATATION OF ESOPHAGUS-recently done in 06/2016 at [facility] colonoscopy, pacemaker placed 07/07 at [facility], bilateral stapedectomies Past Anesthesia/Blood Transfusion Reactions: Motion Sickness, Postoperative Nausea & Vomiting (PONV) Additional Past Anesthesia/Blood Transfusion Reaction / Comment(s): no problems with prior blood transfusion Type of Cardiac Device: Permanent Pacemaker Device Placement Date:: 06/2016 Smoking Status: Never smoker - Past Family History Brother(s) Family Medical History: Cancer Additional Family Medical History / Comment(s): throat Father Family Medical History: COPD, Pneumonia Additional Family Medical History / Comment(s): emphysema Mother Family Medical History: COPD, Rheumatoid Arthritis (RA) Additional Family Medical History / Comment(s): smoked, emphysema, osteoporosis. Medications and Allergies Home Medications Medication Instructions Recorded Confirmed Type Gabapentin [Neurontin] 300 mg PO TID 02/15/16 12/26/16 History Magnesium Gluconate [Magonate] 500 mg PO HS 02/15/16 12/26/16 History SUMAtriptan SUCCINATE [Imitrex] 50 mg PO BID PRN 02/15/16 12/26/16 History Acetaminophen [Tylenol] 650 mg PO Q6H PRN 07/17/16 12/26/16 History Levothyroxine Sodium [Synthroid] 50 mcg PO DAILY@0630 #30 tab 08/24/16 12/26/16 Rx Omeprazole [PriLOSEC] 20 mg PO AC-BID #1 cap 10/28/16 12/26/16 Rx Potassium Chloride [Klor-Con 10] 40 meq PO BID 11/29/16 12/26/16 History Hydrocodone/Acetaminophen [[place] 1 each PO Q6HR PRN #20 tab 12/18/16 12/26/16 Rx 5-325] Ondansetron Odt [Zofran ODT] 4 mg PO Q8HR PRN #20 tab 12/18/16 12/26/16 Rx Furosemide [Lasix] 40 mg PO DAILY 12/26/16 12/26/16 History Allergies Allergy/AdvReac Type Severity Reaction Status Date / Time adhesive Allergy RASH FROM Verified 12/26/16 09:36 EKG STICKERS celecoxib [From Celebrex] Allergy Rash/Hives Verified 12/26/16 09:36 sertraline HCl [From Zoloft] Allergy Rash/Hives Verified 12/26/16 09:36 sulfamethoxazole Allergy Anaphylaxis Verified 12/26/16 09:36 [From Bactrim] trimethoprim [From Bactrim] Allergy Anaphylaxis Verified 12/26/16 09:36
[2016-12-27] MEDS: LACTATED RINGERS 1,000 ML IV SCH (10:32)
[2016-12-27] MEDS ORDERED: LIDOCAINE 1% 20 ML VIAL (10MG/ML) FOR IV START INTRADERMA ONE (10:33)
[2016-12-27] MEDS ORDERED: ONDANSETRON 4 MG/2 ML VIAL IVP ONE ×2 (10:41→14:53)
[2016-12-27] MEDS ORDERED: DEXAMETHASONE SOD PHOS (MDV) 100 MG/10 ML VIAL IVP ONE (10:42)
[2016-12-27] MEDS ORDERED: PROPOFOL 10 MG/ML 20 ML VIAL IV ONE (10:46)
[2016-12-27] MEDS ORDERED: LIDOCAINE 1% INJ 10MG/ML (20 ML MDV) ONE (10:46)
--- NOTE | 2016-12-27 11:32 | P.PCN ---
Date of Procedure: 12/27/16 Preoperative Diagnosis: Postoperative Diagnosis: Procedure(s) Performed: Implants: Indications for Procedure: Operative Findings: Description of Procedure: PREOPERATIVE DIAGNOSIS: History of anemia. Abdominal pain. Change in bowel habits. POSTOPERATIVE DIAGNOSIS: History of anemia. Abdominal pain. Change in bowel habits. Sigmoid volvulus. External hemorrhoids. OPERATION: Colonoscopy to the hepatic flexure. SURGEON: Miracle Guerrero MD. ANESTHESIA: MAC. INDICATIONS: The patient is a 71-year-old female who presents with anemia including abdominal pain and change in bowel habits. Benefits and risks were described and informed consent was obtained. DESCRIPTION OF PROCEDURE: The patient had undergone Gatorade, MiraLAX and Dulcolax prep. She had been brought into the operating room and laid in the left lateral decubitus position. After adequate intravenous sedation, the rectum was examined with 2% lidocaine jelly. External hemorrhoids were encountered. The rectal tone was loose. No lesions were palpated in the rectal vault. 2 areas of tortuosity was found along the proximal as well as distal sigmoid colon. Despite maneuvers including abdominal pressure to advance the scope beyond the hepatic flexure, moderate redundancy of the colon including worsening of her atrial fibrillation was encountered. As a result of these findings, her colonoscopy was terminated at the hepatic flexure. No polyps were identified. No localized colitis or diverticulosis were found distal to the hepatic flexure. The prep was excellent with clear visualization of the mucosal folds. The scope was removed with visualization of each mucosal fold. The colon was desufflated. The patient had tolerated the procedure well. Withdrawal time was over 6 minutes. FINDINGS: Sigmoid volvulus. External prolapsed hemorrhoids. Scope advanced to the hepatic flexure. No arteriovenous malformations. No adenomatous polyps. No focal colitis. RECOMMENDATIONS: Completion of colonoscopy evaluation with barium enema for sigmoid volvulus.
[2016-12-27] MEDS ORDERED: NALOXONE 0.4 MG/ML 1 ML VIAL IV PRN ×2 (11:34→17:37)
--- NOTE | 2016-12-27 11:34 | P.PN ---
Progress Note - Text During the procedure, the patient went into proximal atrial fibrillation. Findings are consistent with sigmoid volvulus. With her history of anticoagulation including atrial fibrillation, recommend CBC, BMP, continued observation with completion barium enema.
[2016-12-27] MEDS ORDERED: LORazepam 2 MG/ML SYRINGE IV ONE (12:15)
[2016-12-27] MEDS ORDERED: LACTATED RINGERS 1,000 ML IV ONE ×2 (12:20→18:06)
[2016-12-27] MEDS ORDERED: HYDROcodone/APAP 5-325MG 1 EACH TAB PO PRN (12:31)
[2016-12-27] MEDS ORDERED: HYDROcodone/APAP 5-325MG 1 EACH TAB PO ONE (14:53)
--- NOTE | 2016-12-27 15:14 | FL ---
EXAMINATION TYPE: FL barium enema DATE OF EXAM: 12/27/2016 COMPARISON: CT abdomen pelvis 12/10/2016 HISTORY: Incomplete colonoscopy, sigmoid volvulus TECHNIQUE: A single contrast barium enema study is performed. Patient was unable to retain the contrast, the exam is incomplete. FINDINGS: Outboard Motor Assembler view of the abdomen shows overall non-obstructive bowel gas pattern. No evidence of obstructing or constricting lesion throughout the colon. No significant diverticular disease is noted. Colon is incompletely distended. Surgical clips noted incidentally in the right upper quadrant. Sigmo id colon is redundant. IMPRESSION: Exam is somewhat limited. No annular lesion or obstruction to flow is evident.
[2016-12-27 16:09] LABS: Anisocytosis Slight; CH 26.1; CHCM 30.4; HCT 31.3 % (34.0-46.0); HDW 2.82; HGB 9.4 gm/dL (11.4-16.0); Hypochromasia Moderate; MCH 25.9 pg (25.0-35.0); MCHC 30.1 g/dL (31.0-37.0); Mean Platelet Volume 8.2; RBC 3.64 m/uL (3.80-5.40); RDW 18.5 % (11.5-15.5); WBC 2.5 k/uL (3.8-10.6)
[2016-12-27 16:18] LABS: Anion Gap 6 mmol/L; Blood Urea Nitrogen 5 mg/dL (7-17); Carbon Dioxide 29 mmol/L (22-30); Chloride 105 mmol/L (98-107); Glucose 129 mg/dL (74-99); Magnesium 1.4 mg/dL (1.6-2.3); Non-African American GFR(MDRD) >60 (>60 ml/min/1.73 sqM); Sodium 140 mmol/L (137-145)
[2016-12-27 16:27] LABS: Potassium 2.8 mmol/L (3.5-5.1)
[2016-12-27] MEDS ORDERED: POTASSIUM CHLORIDE ORAL LIQUID 40 MEQ/30 ML CUP PO ONE (17:27)
[2016-12-27] MEDS ORDERED: ACETAMINOPHEN TAB 325 MG TAB PO PRN (17:28)
[2016-12-27] MEDS ORDERED: SUMAtriptan SUCCINATE 50 MG TAB PO PRN (17:28)
--- NOTE | 2016-12-27 19:20 | P.PN ---
Progress Note - Text Patient seen and evaluated this evening with her daughter at bedside. The patient has severe hypokalemia including hypomagnesia, symptomatic with intermittent atrial fibrillation. Her barium enema was reviewed consistent with a tortuous sigmoid colon. On further discussion, the patient's daughter also confirmed that her mother has chronic abdominal pain between constipation and diarrhea which confirms symptoms from sigmoid volvulus. Alternatives including hiatal hernia repair were described as she is also symptomatic with epigastric abdominal pain. Recommend correction of electrolytes with discharge home tomorrow.
[2016-12-27] MEDS ORDERED: HYDROmorphone 1 MG/ML 1 ML SYRINGE IVP PRN (19:21)
[2016-12-27] MEDS: POTASSIUM CHLORIDE 20 MEQ, LIDOCAINE 2% INJ 20 MG in SODIUM CHLORIDE 0.9% 100 ML IVPB SCH ×3 (19:59→23:59)
[2016-12-27] MEDS: MAGNESIUM SULFATE-D5W PMX 1 GM in DEXTROSE/WATER 1 100ML.BAG IVPB SCH ×4 (19:59→22:59)
[2016-12-27] MEDS: GABAPENTIN 300 MG CAP PO SCH (20:06)
[2016-12-27] MEDS ORDERED: MAGNESIUM OXIDE 400 MG TAB PO SCH (21:00)
[2016-12-27] MEDS: HYDROcodone/APAP 5-325MG 1 EACH TAB PO PRN (22:58)
[2016-12-28 00:19] VITALS: RESP 16
[2016-12-28] MEDS: HYDROcodone/APAP 5-325MG 1 EACH TAB PO PRN ×2 (03:44→08:25)
[2016-12-28] MEDS ORDERED: LEVOTHYROXINE 50 MCG TAB PO SCH (06:30)
[2016-12-28 07:26] LABS: Anion Gap 5 mmol/L; Blood Urea Nitrogen 7 mg/dL (7-17); Calcium 8.9 mg/dL (8.4-10.2); Carbon Dioxide 25 mmol/L (22-30); Chloride 109 mmol/L (98-107); Glucose 117 mg/dL (74-99); Magnesium 2.5 mg/dL (1.6-2.3); Non-African American GFR(MDRD) >60 (>60 ml/min/1.73 sqM); Sodium 139 mmol/L (137-145)
[2016-12-28] MEDS: LACTATED RINGERS 1,000 ML IV SCH (08:14)
[2016-12-28 08:20] VITALS: BP 111/58; PULSE 88; TEMP 98.1
[2016-12-28] MEDS: GABAPENTIN 300 MG CAP PO SCH (08:25)
[2016-12-28] MEDS ORDERED: ONDANSETRON ODT 4 MG TAB PO PRN (09:03)
[2016-12-28] MEDS ORDERED: FUROSEMIDE 40 MG TAB PO SCH (09:30)
[2016-12-28] MEDS ORDERED: POTASSIUM CHLORIDE ER 20 MEQ TAB.ER PO SCH (10:00)
[2016-12-29] MEDS ORDERED: PANTOPRAZOLE 40 MG TABLET PO SCH (07:30)
== END 2016-12-28 11:58 | disposition home or self-care (01) ==
LOC: ORWHC2ENDO 09:29 → 3OBS 18:24 → ORWHC2ENDO 12-28 11:58
PROVIDERS: ATTEND Surgery Plastic and Reconstructive Surgery
DX: K56.2 Volvulus (principal); K64.8 Other hemorrhoids; Q43.8 Other specified congenital malformations of intestine; K21.9 Gastro-esophageal reflux disease without esophagitis; I48.91 Unspecified atrial fibrillation; Z95.0 Presence of cardiac pacemaker; E07.9 Disorder of thyroid, unspecified; M79.7 Fibromyalgia; Z79.899 Other long term (current) drug therapy; Z88.2 Allergy status to sulfonamides; Z88.8 Allergy status to other drugs, medicaments and biological substances; Z91.09 Other allergy status, other than to drugs and biological substances
CPT/HCPCS: 80048 ×2; 83735 ×2; 85027; 74270; 45378; J2001 ×2; J2060; J2405; J3480; J3475; J1100; J2704

== ENCOUNTER 2017-01-12 08:40 | Inpatient (IN) | payer MEDICARE, OTHER ==
[2017-01-08 12:50] VITALS: BMI 21.3
--- NOTE | 2017-01-12 07:15 | P.GSHP ---
History of Present Illness H&P Date: 01/12/17 CHIEF COMPLAINT: Paraesophageal hiatal hernia with gastroesophageal reflux disease. HISTORY OF PRESENT ILLNESS: The patient is a 71-year-old male who presents with paraesophageal hiatal hernia including dysphasia and severe gastroesophageal reflux disease. She has required previous esophageal dilations. She also reports severe epigastric left upper quadrant abdominal pain. She has completed an esophageal manometry including upper endoscopy workup. Now she presents for surgical intervention. PAST MEDICAL HISTORY: Please see list. PAST SURGICAL HISTORY: Please see list. MEDICATIONS: Please see list. ALLERGIES: Please see list. SOCIAL HISTORY: No illicit drug use FAMILY HISTORY: No reports of Crohn disease or ulcerative colitis. REVIEW OF ORGAN SYSTEMS: CONSTITUTIONAL: No reports of fevers or chills. GI: Denies any blood in stools or constipation. PHYSICAL EXAM: VITAL SIGNS: Stable GENERAL: Well-developed pleasant and in no acute distress. HEENT: No scleral icterus. Extraocular movements grossly intact. Moist buccal mucosa. NECK: Supple without lymphadenopathy. CHEST: Unlabored respirations. Equal bilateral excursions. CARDIOVASCULAR: Irregular rate and rhythm. Distal 2+ pulses. ABDOMEN: Soft, nondistended. No peritoneal signs. MUSCULOSKELETAL: No clubbing, cyanosis, or edema. ASSESSMENT: 1. Diaphragmatic paraesophageal hiatal hernia with severe gastroesophageal reflux disease. 2. Dysphagia from esophageal structures. 3. Epigastric and left upper quadrant abdominal pain. 4. Chronic anticoagulation for atrial fibrillation. PLAN: 1. Recommend proceeding with a laparoscopic paraesophageal hiatal hernia with possible mesh and possible Marck fundoplasty. 2. Benefits and risks of surgical intervention was discussed including possibility of open technique. 3. Inpatient hospitalization recommended of 2 nights or less. 4. DVT prophylaxis. 5. Antibiotic prophylaxis. Past Medical History Past Medical History: Atrial Fibrillation, Blood Disorder, Coronary Artery Disease (CAD), Chest Pain / Angina, Fibromyalgia, GERD/Reflux, GI Bleed, Hypertension, Myocardial Infarction (WA), Musculoskeletal Disorder, Osteoarthritis (OA), Thyroid Disorder Additional Past Medical History / Comment(s): Pacemaker HFH in June 2016 for Syncopy/Tachybrady syndrome-was then able to have an EGD w/ dilation. Paroxysmal AFib, has had RVR. RHEUMATIC FEVER; H eart Murmur. chronic back, dee shoulder pain. L4 fx after fall in 2012; "recently found 2 fx thoraic vertebre. SEVERE OSTEOPROSIS - NO TX. Vertigo, if she tips her head back. DJD. GI ulcers, esophagitis/esophageal stricture. Pt states she has had a WA in 2002 but taylor states die trouble shooter said that it wasn't a WA. Last Myocardial Infarction Date:: 2002 History of Any Multi-Drug Resistant Organisms: None Reported Past Surgical History: Appendectomy, Cardiac Ablation, Ear Surgery, Heart Catheterization, Hysterectomy, Orthopedic Surgery, Pacemaker, Tonsillectomy Additional Past Surgical History / Comment(s): ORIF LEFT LOWER ARM, HAS HARDWARE. Numerous DILATATION OF ESOPHAGUS-recently done in 06/2016 at [facility] pt stated bx were neg, colonoscopy. Pacemaker (ADAPTA) placed 07/07 at [facility]. Cardiac Cath in 2002. Bilateral stapedectomies. CARDIAC ABLATION 09/2016. Past Anesthesia/Blood Transfusion Reactions: Family History of Problems w/ Anesthesia, Motion Sickness, Postoperative Nausea & Vomiting (PONV) Additional Past Anesthesia/Blood Transfusion Reaction / Comment(s): no problems with prior blood transfusion. BROTHER HAS PONV. Type of Cardiac Device: Permanent Pacemaker Device Placement Date:: 06/2016 Smoking Status: Never smoker - Past Family History Brother(s) Family Medical History: Cancer Additional Family Medical History / Comment(s): throat Father Family Medical History: COPD, Pneumonia Additional Family Medical History / Comment(s): emphysema Mother Family Medical History: COPD, Rheumatoid Arthritis (RA) Additional Family Medical History / Comment(s): smoked, emphysema, osteoporosis. Medications and Allergies Home Medications Medication Instructions Recorded Confirmed Type Gabapentin [Neurontin] 300 mg PO TID 02/15/16 01/08/17 History Magnesium Gluconate [Magonate] 500 mg PO HS 02/15/16 01/08/17 History SUMAtriptan SUCCINATE [Imitrex] 50 mg PO BID PRN 02/15/16 01/08/17 History Acetaminophen [Tylenol] 650 mg PO Q6H PRN 07/17/16 01/08/17 History Levothyroxine Sodium [Synthroid] 50 mcg PO DAILY@0630 #30 tab 08/24/16 01/08/17 Rx Potassium Chloride [Klor-Con 10] 40 meq PO BID 11/29/16 01/08/17 History Hydrocodone/Acetaminophen [[place] 1 each PO Q6HR PRN #20 tab 12/18/16 01/08/17 Rx 5-325] Ondansetron Odt [Zofran ODT] 4 mg PO Q8HR PRN #20 tab 12/18/16 01/08/17 Rx Furosemide [Lasix] 40 mg PO DAILY 12/26/16 01/08/17 History Apixaban [Eliquis] 5 mg PO BID 01/08/17 01/08/17 History Allergies Allergy/AdvReac Type Severity Reaction Status Date / Time adhesive Allergy RASH FROM Verified 01/08/17 11:49 EKG STICKERS celecoxib [From Celebrex] Allergy Rash/Hives Verified 01/08/17 11:49 sertraline HCl [From Zoloft] Allergy Rash/Hives Verified 01/08/17 11:49 sulfamethoxazole Allergy Anaphylaxis Verified 01/08/17 11:49 [From Bactrim] trimethoprim [From Bactrim] Allergy Anaphylaxis Verified 01/08/17 11:49
[~2017-01-12 08:40] MED LIST changes: +DEXAMETHASONE SOD PHOSPHATE 10 MG/ML 1 ML VIAL IV ONE; +HEPARIN SODIUM,PORCINE 5,000 UNIT/ML 1 ML VIAL SQ ONE; +HYDROmorphone 1 MG/ML 1 ML SYRINGE IVP PRN; -LACTATED RINGERS 1,000 ML IV SCH; +ONDANSETRON 4 MG/2 ML VIAL IVP ONE; +SCOPOLAMINE 1.5MG/72HR PATCH TRANSDERM ONE; +ceFAZolin 2 GM in SODIUM CHLORIDE 0.9% 100 ML IVPB ONE
[2017-01-12] MEDS: LACTATED RINGERS 1,000 ML IV SCH (10:59)
[2017-01-12] MEDS ORDERED: ACETAMINOPHEN IVPB ONE ×2 (11:13→11:30)
[2017-01-12] MEDS ORDERED: MIDAZOLAM 2 MG/2 ML VIAL IV ONE (11:24)
[2017-01-12 11:34] LABS: WBC 11.2 k/uL (3.8-10.6)
[2017-01-12 11:35] LABS: Anisocytosis Slight; Basophils # (A) 0.1 k/uL (0-0.2); Basophils % (A) 1 %; CH 25.3; CHCM 28.6; Eosinophils # (A) 0.4 k/uL (0-0.7); Eosinophils % (A) 3 %; HCT 37.7 % (34.0-46.0); HDW 2.66; HGB 11.2 gm/dL (11.4-16.0); Hypochromasia Marked; Luc # (Auto) 0.32; Luc % (Auto) 3; Lymphocytes # (A) 2.7 k/uL (1.0-4.8); Lymphocytes % (A) 24 %; MCH 26.4 pg (25.0-35.0); MCHC 29.8 g/dL (31.0-37.0); MCV 88.5 fL (80.0-100.0); Mean Platelet Volume 7.5; Monocytes # (A) 0.6 k/uL (0-1.0); Monocytes % (A) 5 %; Neutrophils # (A) 7.1 k/uL (1.3-7.7); Neutrophils % (A) 63 %; RBC 4.26 m/uL (3.80-5.40); RDW 16.7 % (11.5-15.5); WBC (Perox) 10.96
[2017-01-12 11:42] LABS: Calcium 9.9 mg/dL (8.4-10.2); Potassium 4.7 mmol/L (3.5-5.1); Total Bilirubin 0.4 mg/dL (0.2-1.3); Total Protein 8.2 g/dL (6.3-8.2)
[2017-01-12] MEDS ORDERED: MIDAZOLAM 2 MG/2 ML VIAL ONE (11:47)
[2017-01-12] MEDS ORDERED: LIDOCAINE 1% INJ 10MG/ML (20 ML MDV) ONE (11:47)
[2017-01-12] MEDS ORDERED: fentaNYL (PF) 50 MCG/ML 2 ML AMP ONE (11:47)
[2017-01-12] MEDS ORDERED: NEOSTIGMINE 1 MG/ML 10 ML VIAL ONE (11:47)
[2017-01-12] MEDS ORDERED: ROCURONIUM BROMIDE 10 MG/ML 10 ML VIAL IV ONE (11:47)
[2017-01-12] MEDS ORDERED: PROPOFOL 10 MG/ML 20 ML VIAL IV ONE (11:47)
[2017-01-12] MEDS ORDERED: ONDANSETRON 4 MG/2 ML VIAL ONE (11:47)
[2017-01-12] MEDS ORDERED: SUCCINYLCHOLINE CHLORIDE 100 MG/5 ML SYR IV ONE (11:47)
[2017-01-12] MEDS ORDERED: PHENYLEPHRINE-0.9% NACL SYG 1 MG/10 ML SYRINGE ONE (11:47)
[2017-01-12] MEDS ORDERED: GLYCOPYRROLATE 0.2 MG/ML 2 ML VIAL ONE (11:47)
[2017-01-12] MEDS ORDERED: BUPIVACAIN-EPI 0.5%-1:200,000 30 ML VIAL SQ ONE (12:43)
[2017-01-12] MEDS ORDERED: LACTATED RINGERS 1,000 ML IV ONE (13:11)
[2017-01-12] MEDS ORDERED: ACETAMINOPHEN IV (For NPO) 1,000 MG in EMPTY BAG 1 BAG IVPB ONE (14:28)
[2017-01-12] MEDS ORDERED: ONDANSETRON 4 MG/2 ML VIAL IVP PRN (14:28)
[2017-01-12] MEDS ORDERED: NALOXONE 0.4 MG/ML 1 ML VIAL IV PRN (14:28)
--- NOTE | 2017-01-12 14:38 | P.PCN ---
Date of Procedure: 01/12/17 Preoperative Diagnosis: left upper quadrant abdominal pain, epigastric abdominal pain, paraesophageal diaphragmatic hiatal hernia, history of GI bleed, gastroesophageal reflux disease, history of esophageal stricture, atrial fibrillation Postoperative Diagnosis: same, acute erosive esophagitis with esophageal ulceration mid to distal esophagus, upper esophageal stenosis, incarcerated paraesophageal hiatal hernia 6 x 9 cm into the mediastinum, severe peritoneal adhesions involving the epigastrium, perihepatic left upper quadrant, lower midline Procedure(s) Performed: 1. Laparoscopic lysis of adhesions over 30 minutes. 2. Laparoscopic reduction of incarcerated midline paraesophageal hiatal hernia 6 x 9 cm. 3. Laparoscopic paraesophageal hiatal hernia repair of 6 x 9 cm with Becket Biopatch A 8 x 8 cm. 4. Intraoperative esophagogastroduodenoscopy. 5. Rigid dilation of esophageal stricture using 52-Icelandic bougie. Anesthesia: GETA, local Surgeon: Miracle Guerrero Estimated Blood Loss (ml): 10 Pathology: none sent Condition: stable Disposition: floor Operative Findings: 1. Preoperatively, patient had a heart rate of 160s to 170s which resolved after 1 L bolus. 2. Case was delayed start of insufflation until 1 L bolus was completed. 3. Initial pediatric insufflation performed at least 45 minutes into case until patient heart rate and pressures improved. 4. Esophageal stricture of the upper esophagus dilated. 5. No full-thickness injury identified of the esophagus nor of the stomach. 6. Hill grade 2 lower esophageal valve upon completion of the case. 7. Intraoperative esophageal length of 3 cm obtained. 8. peritoneal adhesions consistent with patient's location of pain preoperatively. 9. Additional port placed along the right lateral abdominal wall for adhesional lysis. Description of Procedure: Please see full dictated report.
[2017-01-12 17:08] LABS: INR 1.1 (<1.2); Prothrombin Time 10.9 sec (9.0-12.0)
[2017-01-12] MEDS: HYOSCYAMINE ORAL DROPS 1.875 MG/15 ML BOTTLE PO SCH ×2 (18:08→23:06)
[2017-01-12] MEDS: 0.9% NACL WITH KCL 20 MEQ/L 1,000 ML IV SCH (18:08)
[2017-01-12] MEDS: SIMETHICONE 40 MG/0.6 ML DROPS 2,000 MG/30 ML BOTTLE PO SCH ×2 (18:08→23:06)
[2017-01-12] MEDS: AMPICILLIN-SULBACTAM 3 GM in SODIUM CHLORIDE 0.9% 100 ML IVPB SCH ×2 (18:08→23:00)
[2017-01-12] MEDS: HYDROmorphone 1 MG/ML 1 ML SYRINGE IVP PRN ×4 (18:16→22:17)
[2017-01-12] MEDS: PANTOPRAZOLE 40 MG/10 ML VIAL IV SCH (23:00)
[2017-01-13] MEDS: HYDROmorphone 1 MG/ML 1 ML SYRINGE IVP PRN ×4 (05:02→15:39)
[2017-01-13] MEDS: SIMETHICONE 40 MG/0.6 ML DROPS 2,000 MG/30 ML BOTTLE PO SCH ×4 (05:02→23:42)
[2017-01-13] MEDS: HYOSCYAMINE ORAL DROPS 1.875 MG/15 ML BOTTLE PO SCH ×4 (05:03→23:42)
[2017-01-13] MEDS: LACTATED RINGERS 1,000 ML IV SCH (05:54)
[2017-01-13] MEDS: 0.9% NACL WITH KCL 20 MEQ/L 1,000 ML IV SCH ×2 (05:54→10:56)
[2017-01-13 07:51] LABS: Anisocytosis Slight; Basophils % (A) 0 %; CH 25.4; CHCM 28.1; Eosinophils % (A) 0 %; HCT 31.6 % (34.0-46.0); HDW 2.48; Hypochromasia Marked; Luc # (Auto) 0.13; Luc % (Auto) 2; Lymphocytes # (A) 1.2 k/uL (1.0-4.8); Lymphocytes % (A) 17 %; MCH 26.7 pg (25.0-35.0); MCHC 29.5 g/dL (31.0-37.0); MCV 90.4 fL (80.0-100.0); Monocytes # (A) 0.3 k/uL (0-1.0); Monocytes % (A) 5 %; Neutrophils # (A) 5.3 k/uL (1.3-7.7); Neutrophils % (A) 75 %; RDW 16.8 % (11.5-15.5); WBC 7.1 k/uL (3.8-10.6); WBC (Perox) 7.64
[2017-01-13 07:57] LABS: HGB 9.3 gm/dL (11.4-16.0)
[2017-01-13] MEDS ORDERED: 0.9% NACL WITH KCL 20 MEQ/L 1,000 ML IV SCH (08:00)
[2017-01-13 08:02] LABS: Anion Gap 9 mmol/L; Blood Urea Nitrogen 23 mg/dL (7-17); Calcium 8.8 mg/dL (8.4-10.2); Carbon Dioxide 25 mmol/L (22-30); Chloride 107 mmol/L (98-107); Magnesium 1.8 mg/dL (1.6-2.3); Non-African American GFR(MDRD) 58 (>60 ml/min/1.73 sqM); Potassium 4.4 mmol/L (3.5-5.1); Sodium 141 mmol/L (137-145)
[2017-01-13] MEDS: PANTOPRAZOLE 40 MG/10 ML VIAL IV SCH ×2 (08:12→23:42)
[2017-01-13] MEDS ORDERED: ENOXAPARIN 30 MG/0.3 ML SYRINGE SQ SCH (09:00)
[2017-01-13] MEDS: ceFAZolin 2 GM in SODIUM CHLORIDE 0.9% 100 ML IVPB SCH ×3 (10:56→23:41)
[2017-01-13] MEDS: MAGNESIUM SULFATE-D5W PMX 1 GM in DEXTROSE/WATER 1 100ML.BAG IVPB SCH ×2 (12:22→15:35)
--- NOTE | 2017-01-13 12:53 | FL ---
EXAMINATION TYPE: FL UGI DATE OF EXAM ORDERED: 01/13/2017 10:32 AM HISTORY: Status post Amador fundoplication. COMPARISON: None. FINDINGS: The patient drank contrast with ease. There is prompt egress of contrast from the esophagu s into the stomach. There is no evidence of extravasation or free air. The ligament of Treitz is in t he normal location. IMPRESSION: STATUS POST AMADOR FUNDOPLICATION.
--- NOTE | 2017-01-13 15:28 | P.OP ---
Date of Procedure: 01/12/17 Description of Procedure: SURGEON: BONI LIMA MD PREOPERATIVE DIAGNOSES: 1. Symptomatic paraesophageal diaphragmatic hiatal hernia, midline 2. Gastroesophageal reflux disease. 3. Hypertensive heart disease. 4. Left upper quadrant abdominal pain. 5. Epigastric abdominal pain. 6. History of gastrointestinal bleed. 7. Personal history of esophageal stricture. 8. Chronic atrial fibrillation. 9. History of chronic anticoagulation. 10. Chronic iron deficiency anemia. 11. Anxiety. 12. Chronic hypokalemia. 13. Chronic hypokinesia. 14. Hypothyroidism. 15. Personal history of sick sinus syndrome with pacemaker placement. 16. Coronary artery disease. 17. History of angina. 18. Fibromyalgia. 19. Personal history of myocardial infarction. POSTOPERATIVE DIAGNOSES: 1. Symptomatic paraesophageal diaphragmatic hiatal hernia, midline 2. Gastroesophageal reflux disease. 3. Hypertensive heart disease. 4. Left upper quadrant abdominal pain. 5. Epigastric abdominal pain. 6. History of gastrointestinal bleed. 7. Personal history of esophageal stricture. 8. Chronic atrial fibrillation. 9. History of chronic anticoagulation. 10. Chronic iron deficiency anemia. 11. Anxiety. 12. Chronic hypokalemia. 13. Chronic hypokinesia. 14. Hypothyroidism. 15. Personal history of sick sinus syndrome with pacemaker placement. 16. Coronary artery disease. 17. History of angina. 18. Fibromyalgia. 19. Personal history of myocardial infarction. 20. Acute erosive esophagitis with esophageal ulceration mid to distal esophagus 21. Upper esophageal stenosis 22. Incarcerated paraesophageal hiatal hernia 6 x 9 cm into the mediastinum 23. Severe peritoneal adhesions involving the epigastrium, perihepatic left upper quadrant, lower midline. 24. Dehydration with elevated creatinine. 26. Acute renal insufficiency secondary to dehydration, stage II. Procedure(s) Performed: 1. Laparoscopic lysis of adhesions over 30 minutes. 2. Laparoscopic reduction of incarcerated midline paraesophageal hiatal hernia 6 x 9 cm. 3. Laparoscopic paraesophageal hiatal hernia repair of 6 x 9 cm with Addison Biopatch A 8 x 8 cm. 4. Intraoperative esophagogastroduodenoscopy. 5. Rigid dilation of esophageal stricture using 52-Latvian bougie. ANESTHESIA: General with local anesthetic. ESTIMATED BLOOD LOSS: 10 mL SPECIMENS: None. COMPLICATIONS: None. INDICATIONS: The patient is a 71-year-old female with long-standing history esophageal stricture, gastrointestinal bleed, symptomatic diaphragmatic hiatal hernia, erosive esophagitis, chronic atrial fibrillation, iron deficiency anemia , and worsening epigastric including left upper quadrant abdominal pain. She completed an upper endoscopy demonstrating a symptomatic diaphragmatic hiatal hernia. Additionally a manometry is performed without evidence of achalasia or scleroderma. Her total lower esophageal sphincter length including intra-abdominal length were within normal limits. Surgical intervention with a paraesophageal hiatal hernia repair and mesh was described. Risks and benefits including but not limited persistent abdominal pain, to collapse of the lung, dysphagia, recurrence, need for revisional surgery were reviewed in detail. Informed consent was obtained as all benefits and risks were described. DESCRIPTION: Patient was brought into the operating room, laid in supine position on a split-leg table. After general induction, the abdomen was prepped and draped in a standard sterile fashion using ChloraPrep. An Ioban drape was placed. Greene catheter was placed. A timeout protocol was confirmed with the surgical team, for which the patient's name, procedure to be performed including DVT prophylaxis with bilateral SCDs, and preoperative antibiotics were also confirmed. Prior to start of her procedure, the patient had heart rate in the 160s to 170s. The patient presented to the operating room dehydrated and 1 L bolus was initiated. The start of the case was delayed until the patient was euvolemic. At the right upper quadrant, a 5 mm laparoscopic trocar entry was performed as the patient had been complaining of persistent left upper quadrant abdominal pain. The abdomen was insufflated to 12 mmHg pressure under pediatric flow given the patient's size and body habitus. Moderate intra-abdominal adhesions corresponding to the left upper quadrant epigastrium including the lower abdomen was identified consistent with the patient's area of pain. A separate family trochars placed on the right lateral abdominal wall under direct pulsation. Using a Sonicision, the adhesions were sharply lysed down. Next, a 5 mm trocar was placed along the epigastrium. A separate (2) 5-mm trocars were placed at the left upper quadrant and along the left anterior axillary line. Along the anterior surface of the left lobe of the liver, moderate adhesions were identified to the chest wall also consistent with the patient's pain. A disposable EndoShears was used to sharply lysed all adhesions of the left upper quadrant including the left chest to the liver and peritoneum. Complete adhesionolysis occurred for over 30 minutes. After all adhesions were addressed, insufflation was adjusted to 15 mmHg pressure she tolerated well. Diagnostic laparoscopy demonstrated no small bowel dilatation or evidence of small bowel obstruction. No injury to the viscera, solid organs or mesentery was identified. No enterotomies were identified. No hepatomegaly was identified. A large anterior defect anterior defect of the hiatus consistent with diaphragmatic paraesophageal hiatal hernia was identified incorporating the gastric cardia into the thoracic cavity. The superior pole stomach was incarcerated. A Irvin medium-sized liver retractor was placed below the xiphoid and held in place using an iron web development intern. The patient was placed in steep reverse Trendelenburg position. Initial attention was brougth at the hiatus. Circumferentially, the phrenoesophageal ligament and the hiatus were mobilized such that the right and left asif were visualized. A gastrohepatic artery was controlled using Sonicision. Moderate dissection of the esophagus was performed to the aortic arch well into the mediastinum. A lead point of the incarcerated paraesophageal hiatal hernia was identified and excised using the Sonicision. All measurements were performed with a ruler. The final hiatal defect was 6 cm axial and 9 cm intrathoracic. The distal esophagus intra-abdominal length was also 4 cm after moderate dissection into the chest was performed. The bilateral vagi nerves were identified and freed from harm during this portion of dissection. To confirm the squamocolumnar junction, I went to the head of the bed to perform an intraoperative esophagogastroduodenoscopy. An Olympus gastroscope was placed along the posterior oropharynx. The upper esophageal sphincter was tight upon placement of the gastroscope. The scope was advanced along the distal esophagus where a large 3 cm ulceration acute on chronic was identified with bleeding. The scope was advanced into the proximal stomach into the proximal stomach. Using laparoscopy, the GE junction was confirmed. With her history of symptomatic esophageal stricture, a 52-Latvian bougie was advanced carefully into the posterior oropharynx after withdrawing the upper scope. An esophageal dilation occurred for at least 2 minutes prior to its withdrawal. I re-scrubbed into the case. The hiatus was reapproximated using 2-0 Surgidac on an Endo Stitch with a pwxzei-yw-[id number] suture and 1 single stitch posteriorly. Addison Biopatch A 8 x 8 cm was cut in a "barfield-hole fashion" and placed as an onlay and buttressed to the anterior hiatal hernia repair. The mesh was tacked to the left asif using 2-0 Surgidac. I then went to the head of the bed to do a repeat intraoperative esophagogastroduodenoscopy. The squamocolumnar junction laid into the intra- abdominal cavity by over 3 cm. Additionally no full thickness injury to the stomach was identified. Along the mid esophagus, submucosal blood clot was identified without full-thickness injury. No gastric or duodenal ulcers were found. Hill grade 2 lower esophageal valve was identified. Bile was found and aspirated from the stomach. The stomach was desufflated. This concluded the endoscopic portion of the procedure. All instruments and pneumoperitoneum were evacuated from the abdominal cavity. The incisions were reapproximated using 4-0 Monocryl in a subcuticular fashion for the skin. The skin was cleansed with normal saline including dilute hydrogen peroxide. Total of 20 mL 0.5% Marcaine was infiltrated to all wounds for postop analgesia. Dermabond was applied to the skin. At the end of the procedure, needle, sponge, and instrument count was verified correct by surgical instrument repair specialist. Intraoperative films were taken and shared with the patient's family who are very pleased with level of care. Operative Findings: 1. Preoperatively, patient had heart rate of 160s to 170s which resolved after 1 L bolus. 2. Case was delayed start of insufflation until 1 L bolus was completed. 3. Initial pediatric insufflation performed at least 45 minutes into case until patient heart rate and pressures improved. 4. Esophageal stricture of the upper esophagus dilated. 5. No full-thickness injury identified of the esophagus nor of the stomach. 6. Hill grade 2 lower esophageal valve upon completion of the case. 7. Intraoperative esophageal length of 3 cm obtained. 8. Peritoneal adhesions consistent with patient's location of pain preoperatively. 9. Additional 5-mm trocar placed along the right lateral abdominal wall for adhesionolysis.
--- NOTE | 2017-01-13 16:44 | P.PN ---
Subjective Principal diagnosis: Incarcerated hiatal hernia, esophageal stricture, epigastric abdominal pain The patient is a 71-year-old female who is status post reduction of incarcerated paraesophageal having hernia including dilation of esophageal stricture and lysis of adhesions. "I feel so much better.". Her epigastric and left upper quadrant abdominal pain is now completely resolved. She is tolerating liquids. She denies any pain upon swallowing. No signs of dysphagia or obstruction. Her esophagram has been completed. Objective - Vital Signs Vital signs: Vital Signs Temp 98.2 F 01/13/17 15:00 Pulse 98 01/13/17 15:45 Resp 15 01/13/17 15:45 BP 128/70 01/13/17 15:00 Pulse Ox 98 01/13/17 15:00 Intake & Output 01/12/17 01/13/17 01/13/17 18:59 06:59 18:59 Intake Total 2150 560 Output Total 260 Balance 1890 560 Weight 51.256 kg Intake: IV 2150 Intake, IV Titration 560 Amount 0.9% NaCl with KCl 20 Meq 560 /l 1,000 ml @ 70 mls/hr IV .[id number] [facility] Rx#: [id number] Output: Urine 250 Estimated Blood Loss 10 Other: Voiding Method Toilet # Voids 3 - Exam GENERAL: Well developed and in no acute distress. Pleasant. HEENT: No sclera icterus. Extraocular movements grossly intact. Moist buccal mucosa. Head is atraumatic, normocephalic. Hears conversational speech. No nasal drainage. NECK: Supple without lymphadenopathy. No JV distention. CHEST: Non-labored respirations and equal bilateral excursions. CARDIOVASCULAR: Irregular rate and rhythm. Palpable 2+ radial pulses. ABDOMEN: Soft. Nondistended. Incisions clean dry and intact. No signs of infection or cellulitis. MUSCULOSKELETAL: No clubbing, cyanosis or edema. NEUROLOGIC: No focal or lateralizing signs. PSYCH: Appropriate affect. Alert and oriented to person, place and time. SKIN: Good skin turgor. Well perfused. - Labs CBC & Chem 7: 01/13/17 06:55 01/13/17 06:55 Labs: Abnormal Lab Results - Last 24 Hours (Table) 01/13/17 01/13/17 Range/Units 06:55 06:55 RBC 3.50 L (3.80-5.40) m/uL Hgb 9.3 L D (11.4-16.0) gm/dL Hct 31.6 L (34.0-46.0) % MCHC 29.5 L (31.0-37.0) g/dL RDW 16.8 H (11.5-15.5) % BUN 23 H (7-17) mg/dL - Imaging and Cardiology Esophagram personally reviewed without signs of obstruction or leak. Assessment and Plan (1) Atrial fibrillation Status: Acute (2) Atypical chest pain Status: Acute (3) Chronic anticoagulation Status: Acute (4) Dehydration Status: Acute (5) Dysphagia Status: Acute (6) Esophageal stenosis Status: Acute (7) Esophagitis Status: Acute (8) GI bleeding Status: Acute (9) History of atrial fibrillation Status: Acute (10) Hypothyroid Status: Acute (11) Iron deficiency anemia due to chronic blood loss Status: Acute (12) Lower abdominal pain Status: Acute (13) Pacemaker Status: Acute (14) Incarcerated paraesophageal hernia Status: Acute (15) Esophageal ulcer with bleeding Status: Acute (16) Peritoneal adhesions Status: Acute Plan: 1. At bedside, she was able to drink water without any obstructive symptoms. 2. Clear liquid diet at this time. 3. May start protein shakes in 2 days. 4. Post-Marck diet per [facility] reviewed. 5. Intraoperative findings were reviewed in detail. 6. Discharge home tomorrow when medically stable.
[2017-01-13] MEDS ORDERED: SUMAtriptan SUCCINATE 50 MG TAB PO PRN (16:45)
[2017-01-13 17:07] LABS: Iron Saturation 50.29 (12.00-45.00)
[2017-01-13] MEDS: HYDROcodone/APAP 15 ML SOLUTION PO PRN ×2 (17:48→23:41)
[2017-01-13] MEDS ORDERED: SODIUM FERRIC GLUCONAT-SUCROSE 125 MG in SODIUM CHLORIDE 0.9% 100 ML IVPB SCH (18:00)
[2017-01-13] MEDS: GABAPENTIN 300 MG CAP PO SCH (22:17)
[2017-01-14] MEDS: HYDROcodone/APAP 15 ML SOLUTION PO PRN (05:38)
[2017-01-14] MEDS ORDERED: LEVOTHYROXINE 50 MCG TAB PO SCH (06:30)
[2017-01-14] MEDS: HYOSCYAMINE ORAL DROPS 1.875 MG/15 ML BOTTLE PO SCH (06:36)
[2017-01-14] MEDS: SIMETHICONE 40 MG/0.6 ML DROPS 2,000 MG/30 ML BOTTLE PO SCH (06:36)
[2017-01-14 07:07] LABS: Anisocytosis Slight; Basophils % (A) 1 %; CH 26.2; CHCM 28.9; Eosinophils # (A) 0.4 k/uL (0-0.7); Eosinophils % (A) 5 %; HCT 34.4 % (34.0-46.0); HDW 2.51; HGB 9.8 gm/dL (11.4-16.0); Hypochromasia Marked; Luc # (Auto) 0.13; Luc % (Auto) 2; Lymphocytes # (A) 2.1 k/uL (1.0-4.8); Lymphocytes % (A) 30 %; MCH 25.9 pg (25.0-35.0); MCHC 28.5 g/dL (31.0-37.0); MCV 90.8 fL (80.0-100.0); Mean Platelet Volume 7.6; Monocytes # (A) 0.3 k/uL (0-1.0); Monocytes % (A) 4 %; Neutrophils # (A) 4.1 k/uL (1.3-7.7); Neutrophils % (A) 59 %; RBC 3.79 m/uL (3.80-5.40); RDW 18.2 % (11.5-15.5); WBC 6.9 k/uL (3.8-10.6); WBC (Perox) 7.29
[2017-01-14 07:16] LABS: Anion Gap 8 mmol/L; Blood Urea Nitrogen 9 mg/dL (7-17); Calcium 8.8 mg/dL (8.4-10.2); Carbon Dioxide 26 mmol/L (22-30); Chloride 108 mmol/L (98-107); Glucose 96 mg/dL (74-99); Non-African American GFR(MDRD) >60 (>60 ml/min/1.73 sqM); Phosphorous 1.7 mg/dL (2.5-4.5); Potassium 3.6 mmol/L (3.5-5.1); Sodium 142 mmol/L (137-145)
[2017-01-14] MEDS ORDERED: APIXABAN 5 MG TAB PO SCH (09:00)
[2017-01-14] MEDS: GABAPENTIN 300 MG CAP PO SCH (09:37)
[2017-01-14] MEDS: PANTOPRAZOLE 40 MG/10 ML VIAL IV SCH (09:37)
[2017-01-14 09:51] VITALS: BP 130/74; PULSE 90; RESP 14; TEMP 98
--- NOTE | 2017-01-14 16:27 | P.PN ---
Subjective Principal diagnosis: Incarcerated hiatal hernia, esophageal stricture, epigastric abdominal pain The patient is a 71-year-old female who is status post reduction of incarcerated paraesophageal having hernia including dilation of esophageal stricture and lysis of adhesions. No reports of dysphagia. She is tolerating liquids. Her pain is well-controlled. She is overall very happy. Objective - Vital Signs Vital signs: Vital Signs Temp 97.7 F 01/14/17 02:48 Pulse 81 01/14/17 02:48 Resp 17 01/14/17 02:48 BP 106/57 01/14/17 02:48 Pulse Ox 92 L 01/14/17 02:48 Intake & Output 01/13/17 01/14/17 01/14/17 18:59 06:59 18:59 Intake Total 900 Balance 900 Weight 51.256 kg Intake: Intake, IV Titration 900 Amount 0.9% NaCl with KCl 20 Meq 700 /l 1,000 ml @ 70 mls/hr IV .[id number] [facility] Rx#: [id number] Sodium Ferric Gluconat- 100 Sucrose 125 mg In Sodium Chloride 0.9% 100 ml @ 100 mls/hr IVPB DAILY@ 1800 [facility] Rx#:[id number] ceFAZolin 2 gm In Sodium 100 Chloride 0.9% 100 ml @ 100 mls/hr IVPB Q8HR [facility] Rx#:[id number] Other: Voiding Method Toilet - Exam GENERAL: Well developed and in no acute distress. Pleasant. HEENT: No sclera icterus. Extraocular movements grossly intact. Moist buccal mucosa. Head is atraumatic, normocephalic. Hears conversational speech. No nasal drainage. NECK: Supple without lymphadenopathy. No JV distention. CHEST: Non-labored respirations and equal bilateral excursions. CARDIOVASCULAR: Irregular rate and rhythm. Palpable 2+ radial pulses. ABDOMEN: Soft. Nondistended. Incisions clean dry and intact. No signs of infection or cellulitis. MUSCULOSKELETAL: No clubbing, cyanosis or edema. NEUROLOGIC: No focal or lateralizing signs. PSYCH: Appropriate affect. Alert and oriented to person, place and time. - Labs CBC & Chem 7: 01/14/17 06:26 01/14/17 06:26 Labs: Abnormal Lab Results - Last 24 Hours (Table) 01/14/17 01/14/17 Range/Units 06:26 06:26 RBC 3.79 L (3.80-5.40) m/uL Hgb 9.8 L (11.4-16.0) gm/dL MCHC 28.5 L (31.0-37.0) g/dL RDW 18.2 H (11.5-15.5) % Chloride 108 H (98-107) mmol/L Phosphorus 1.7 L (2.5-4.5) mg/dL Assessment and Plan (1) Atrial fibrillation Status: Acute (2) Atypical chest pain Status: Acute (3) Chronic anticoagulation Status: Acute (4) Dehydration Status: Acute (5) Dysphagia Status: Acute (6) Esophageal stenosis Status: Acute (7) Esophagitis Status: Acute (8) GI bleeding Status: Acute (9) History of atrial fibrillation Status: Acute (10) Hypothyroid Status: Acute (11) Iron deficiency anemia due to chronic blood loss Status: Acute (12) Lower abdominal pain Status: Acute (13) Pacemaker Status: Acute (14) Incarcerated paraesophageal hernia Status: Acute (15) Esophageal ulcer with bleeding Status: Acute (16) Peritoneal adhesions Status: Acute Plan: 1. She does report a mild blood in her urine which is now improving. 2. Discharge instructions including diet was reviewed in detail. 3. Her medications were adjusted including decreasing her Lasix dose and potassium dose as she presented with dehydration and diuretic abuse. 4. Follow-up in the office in 5 days. Time with Patient: Greater than 30
--- NOTE | 2017-01-14 16:30 | P.DS ---
Providers Date of admission: 01/12/17 10:05 Expected date of discharge: 01/14/17 Attending physician: Miracle Guerrero Primary care physician: Elroy Wray - Discharge Diagnosis(es) (1) Atrial fibrillation Status: Acute (2) Atypical chest pain Status: Acute (3) Chronic anticoagulation Status: Acute (4) Dehydration Status: Acute (5) Dysphagia Status: Acute (6) Esophageal stenosis Status: Acute (7) Esophagitis Status: Acute (8) GI bleeding Status: Acute (9) History of atrial fibrillation Status: Acute (10) Hypothyroid Status: Acute (11) Iron deficiency anemia due to chronic blood loss Status: Acute (12) Lower abdominal pain Status: Acute (13) Pacemaker Status: Acute (14) Incarcerated paraesophageal hernia Status: Acute (15) Esophageal ulcer with bleeding Status: Acute (16) Peritoneal adhesions Status: Acute Hospital Course: POSTOPERATIVE DIAGNOSES: 1. Symptomatic paraesophageal diaphragmatic hiatal hernia, midline 2. Gastroesophageal reflux disease. 3. Hypertensive heart disease. 4. Left upper quadrant abdominal pain. 5. Epigastric abdominal pain. 6. History of gastrointestinal bleed. 7. Personal history of esophageal stricture. 8. Chronic atrial fibrillation. 9. History of chronic anticoagulation. 10. Chronic iron deficiency anemia. 11. Anxiety. 12. Chronic hypokalemia. 13. Chronic hypokinesia. 14. Hypothyroidism. 15. Personal history of sick sinus syndrome with pacemaker placement. 16. Coronary artery disease. 17. History of angina. 18. Fibromyalgia. 19. Personal history of myocardial infarction. 20. Acute erosive esophagitis with esophageal ulceration mid to distal esophagus 21. Upper esophageal stenosis 22. Incarcerated paraesophageal hiatal hernia 6 x 9 cm into the mediastinum 23. Severe peritoneal adhesions involving the epigastrium, perihepatic left upper quadrant, lower midline. 24. Dehydration with elevated creatinine. 26. Acute renal insufficiency secondary to dehydration, stage II. INDICATIONS: The patient is a 71-year-old female with long-standing history esophageal stricture, gastrointestinal bleed, symptomatic diaphragmatic hiatal hernia, erosive esophagitis, chronic atrial fibrillation, iron deficiency anemia , and worsening epigastric including left upper quadrant abdominal pain. She completed an upper endoscopy demonstrating a symptomatic diaphragmatic hiatal hernia. Additionally a manometry is performed without evidence of achalasia or scleroderma. Her total lower esophageal sphincter length including intra-abdominal length were within normal limits. Surgical intervention with a paraesophageal hiatal hernia repair and mesh was described. Risks and benefits including but not limited persistent abdominal pain, to collapse of the lung, dysphagia, recurrence, need for revisional surgery were reviewed in detail. Informed consent was obtained as all benefits and risks were described. Postoperatively, her preoperative abdominal pain including dysphasia had completely resolved. She was tolerating liquids. She passed her esophagram. Discharge instructions including diet was reviewed in detail. Medical reconciliation including decreasing her Lasix dose was also performed as she presented with acute dehydration secondary to diuretic overuse. Pertinent Studies: Esophagram demonstrating no leak or obstruction with complete diaphragmatic hiatal hernia repair Procedures: Procedure(s) Performed: 1. Laparoscopic lysis of adhesions over 30 minutes. 2. Laparoscopic reduction of incarcerated midline paraesophageal hiatal hernia 6 x 9 cm. 3. Laparoscopic paraesophageal hiatal hernia repair of 6 x 9 cm with [place] Biopatch A 8 x 8 cm. 4. Intraoperative esophagogastroduodenoscopy. 5. Rigid dilation of esophageal stricture using 52-Thai bougie. ANESTHESIA: General with local anesthetic. ESTIMATED BLOOD LOSS: 10 mL SPECIMENS: None. COMPLICATIONS: None. Patient Condition at Discharge: Stable Plan - Discharge Summary New Discharge Prescriptions: New Furosemide [Lasix] 20 mg PO DAILY #30 tab Potassium Chloride [Klor-Con Sprinkle] 10 meq PO DAILY #30 capsule.er Hydrocodone/Acetaminophen [Lutts 5-325] 1 - 2 each PO Q6HR PRN #30 tab PRN Reason: Pain Continue Magnesium Gluconate [Magonate] 500 mg PO HS Gabapentin [Neurontin] 300 mg PO TID SUMAtriptan SUCCINATE [Imitrex] 50 mg PO BID PRN PRN Reason: Migraine Headache Acetaminophen [Tylenol] 650 mg PO Q6H PRN PRN Reason: Pain Levothyroxine Sodium [Synthroid] 50 mcg PO DAILY@0630 #30 tab Ondansetron Odt [Zofran ODT] 4 mg PO Q8HR PRN #20 tab PRN Reason: Nausea Apixaban [Eliquis] 5 mg PO BID Discontinued Potassium Chloride [Klor-Con 10] 40 meq PO BID Furosemide [Lasix] 40 mg PO DAILY HYDROcodone/APAP 5-325MG [[place]ut[place] 5-325] 1 tab PO Q6HR PRN PRN Reason: Pain Discharge Medication List Gabapentin [Neurontin] 300 mg PO TID 02/15/16 [History] Magnesium Gluconate [Magonate] 500 mg PO HS 02/15/16 [History] SUMAtriptan SUCCINATE [Imitrex] 50 mg PO BID PRN 02/15/16 [History] Acetaminophen [Tylenol] 650 mg PO Q6H PRN 07/17/16 [History] Levothyroxine Sodium [Synthroid] 50 mcg PO DAILY@0630 #30 tab 08/24/16 [Rx] Ondansetron Odt [Zofran ODT] 4 mg PO Q8HR PRN #20 tab 12/18/16 [Rx] Apixaban [Eliquis] 5 mg PO BID 01/08/17 [History] Furosemide [Lasix] 20 mg PO DAILY #30 tab 01/14/17 [Rx] Hydrocodone/Acetaminophen [Lutts 5-325] 1 - 2 each PO Q6HR PRN #30 tab 01/14/17 [Rx] Potassium Chloride [Klor-Con Sprinkle] 10 meq PO DAILY #30 capsule.er 01/14/17 [ Rx] Follow up Appointment(s)/Referral(s): Miracle Guerrero MD [STAFF PHYSICIAN] - 01/15/17 3:00 pm Patient Instructions/Handouts: Laparoscopic Hiatal Hernia Repair (DC) Activity/Diet/Wound Care/Special Instructions: No lifting over 4 pounds in 4 weeks. Liquid diet only. No carbonated beverages. May have soups without vegetables and meat. Have protein shake such as Premier protein and muscle milk twice a day. Discharge Disposition: HOME SELF-CARE
== END 2017-01-14 11:09 | disposition home or self-care (01) | DRG 327 ==
LOC: 2ORWHC 10:05 → 6PED 14:26 → 3SUR 21:03
PROVIDERS: ADMIT Surgery Plastic and Reconstructive Surgery; ATTEND Surgery Plastic and Reconstructive Surgery
PROC: 0BUR4JZ (ICD-10-PCS; principal; 2017-01-12 11:05)
PROC: 0DNW4ZZ Release Peritoneum, Percutaneous Endoscopic Approach (ICD-10-PCS; principal; 2017-01-12 11:05)
PROC: 0D754ZZ Dilation of Esophagus, Percutaneous Endoscopic Approach (ICD-10-PCS; principal; 2017-01-12 11:05)
PROC: 0DJ08ZZ Inspection of Upper Intestinal Tract, Via Natural or Artificial Opening Endoscopic (ICD-10-PCS; principal; 2017-01-12 11:05)
PROC: 0BUS4JZ (ICD-10-PCS; principal; 2017-01-12 11:05)
PROC: 0FN04ZZ Release Liver, Percutaneous Endoscopic Approach (ICD-10-PCS; principal; 2017-01-12 11:05)
DX: K44.0 Diaphragmatic hernia with obstruction, without gangrene (principal); K22.10 Ulcer of esophagus without bleeding; I48.0 Paroxysmal atrial fibrillation; I48.2 Chronic atrial fibrillation; I11.9 Hypertensive heart disease without heart failure; K22.2 Esophageal obstruction; E86.0 Dehydration; E03.9 Hypothyroidism, unspecified; E87.6 Hypokalemia; I25.10 Atherosclerotic heart disease of native coronary artery without angina pectoris; D50.0 Iron deficiency anemia secondary to blood loss (chronic); F41.9 Anxiety disorder, unspecified; I25.2 Old myocardial infarction; K21.9 Gastro-esophageal reflux disease without esophagitis; K66.0 Peritoneal adhesions (postprocedural) (postinfection); M79.7 Fibromyalgia; N28.9 Disorder of kidney and ureter, unspecified; T50.2X5A Adverse effect of carbonic-anhydrase inhibitors, benzothiadiazides and other diuretics, initial encounter; Z79.01 Long term (current) use of anticoagulants; Z79.899 Other long term (current) drug therapy; Z82.5 Family history of asthma and other chronic lower respiratory diseases; Z87.19 Personal history of other diseases of the digestive system; Z95.0 Presence of cardiac pacemaker; Z88.2 Allergy status to sulfonamides
CPT/HCPCS: 74240; 80048; 80051; 80053; 82310; 82565; 82728; 83540; 83550; 83735; 84100; 84520; 85025; 85610; 86850; 86900; 86901

== ENCOUNTER 2017-03-05 16:32 | Emergency (ER) | payer MEDICARE, OTHER ==
[2017-03-05 16:38] VITALS: RESP 18
[2017-03-05] MEDS ORDERED: ONDANSETRON 4 MG/2 ML VIAL IVP STA (17:42)
[2017-03-05] MEDS ORDERED: SODIUM CHLORIDE 0.9% 1,000 ML IV ONE (17:42)
[2017-03-05] MEDS ORDERED: SCOPOLAMINE 1.5MG/72HR PATCH TRANSDERM STA (17:42)
[2017-03-05 17:57] LABS: Anisocytosis Slight; Basophils # (A) 0.1 k/uL (0-0.2); Basophils % (A) 1 %; CH 26.6; Eosinophils # (A) 0.6 k/uL (0-0.7); Eosinophils % (A) 6 %; HCT 37.9 % (34.0-46.0); HGB 11.8 gm/dL (11.4-16.0); Hypochromasia Moderate; Luc # (Auto) 0.18; Luc % (Auto) 2; Lymphocytes # (A) 2.9 k/uL (1.0-4.8); Lymphocytes % (A) 33 %; MCH 27.6 pg (25.0-35.0); MCHC 31.1 g/dL (31.0-37.0); MCV 88.9 fL (80.0-100.0); Monocytes # (A) 0.6 k/uL (0-1.0); Monocytes % (A) 6 %; Neutrophils # (A) 4.6 k/uL (1.3-7.7); Neutrophils % (A) 51 %; RBC 4.26 m/uL (3.80-5.40); WBC 8.9 k/uL (3.8-10.6); WBC (Perox) 9.26
[2017-03-05 18:07] LABS: Calcium 9.5 mg/dL (8.4-10.2); Potassium 4.5 mmol/L (3.5-5.1); Total Bilirubin 0.4 mg/dL (0.2-1.3); Total Protein 7.9 g/dL (6.3-8.2)
[2017-03-05 18:19] LABS: Appearance,Urine Clear (Clear); Bilirubin,Urine Negative (Negative); Glucose,Urine (UA) Negative (Negative); Ketones,Urine Negative (Negative); Leukocyte Esterase,Urine Negative (Negative); Nitrite,Urine Negative (Negative); PH, Urine 7.5 (5.0-8.0); Protein,Urine Negative (Negative); Specific Gravity,Urine 1.004 (1.001-1.035); UA Billing (MACRO vs. MICRO) CHEM; Urobilinogen,Urine <2.0 mg/dL (<2.0)
--- NOTE | 2017-03-05 18:43 | XR ---
EXAMINATION TYPE: XR abdomen acute w cxr DATE OF EXAM: 03/05/2017 COMPARISON: 07/22/2014 HISTORY: Pain TECHNIQUE: 3 views FINDINGS: Lungs are clear. There is no heart failure. Heart size is normal. There is no sign of intestinal obstruction or pneumoperitoneum. Fecal pattern is normal. There is no sign of a mass. There are no pathologic calcifications over the kidneys. There are clips from cholecy stectomy. CONCLUSION: No active cardiopulmonary disease. Nonacute findings. Abdomen is unchanged compared to old exam. Chol ecystectomy is new.
[2017-03-05] MEDS ORDERED: IOHEXOL 350 MG/ML 25 ML BOTTLE (ORAL USE) PO PRN (18:44)
[2017-03-05] MEDS ORDERED: MORPHINE SULFATE 10 MG/ML SYRINGE IVP STA ×2 (18:44→20:32)
[2017-03-05] MEDS ORDERED: RX INFO: IV CONTRAST WAS GIVEN 1 EACH MISC MISCELLANE PRN (18:44)
--- NOTE | 2017-03-05 19:21 | CT ---
EXAMINATION TYPE: CT abdomen pelvis wo con DATE OF EXAM: 03/05/2017 COMPARISON: 12/18/2016 HISTORY: VOMITING X3 DAYS CT DLP: 279.9 mGycm Automated exposure control for dose reduction was used. TECHNIQUE: Helical acquisition of images was performed from the lung bases through the pelvis. FINDINGS: Lung bases are clear of consolidation. There is no pleural effusion. Liver spleen pancreas appear normal. There are clips from cholecystectomy. Bile ducts are not dilated . There is no adrenal mass. Kidneys have normal size and contour. There is no hydronephrosis. Ureters are not dilated. There is a loop of small bowel that measures 3.1 cm. There is no retroperitoneal adenopathy. There is no ascites. Appendix is not seen. There is no sign of appendicitis. There is no sign of a pelvic mas s. Bladder is somewhat dilated. There is mild depression of superior endplate of L4. IMPRESSION: OLD MILD L4 COMPRESSION FRACTURE. DILATED URINARY BLADDER COULD RELATE TO BLADDER OUTLET OBSTRUCTION. THIS IS UNCHANGED. SINGLE 3 CM LOOP OF MID SMALL BOWEL PROBABLY RELATES TO LOCALIZED ILEUS. THIS APPEARS NEW COMPARED TO OLD EXAM.
--- NOTE | 2017-03-05 20:33 | ED ---
Nausea/Vomiting/Diarrhea HPI - General Chief complaint: Nausea/Vomiting/Diarrhea Stated complaint: Vomiting Time Seen by Provider: 03/05/17 16:39 Source: EMS Mode of arrival: EMS Limitations: no limitations - History of Present Illness Initial comments: 71-year-old female with a significant past medical history but most marked for a hiatal hernia repair by Dr. Guerrero on January 12 of this year as any for evaluation of intractable nausea and vomiting since Sunday. She states that she is scheduled for an esophageal scope on Sunday to evaluate whether the hernia has recurred but doesn't feel as though she is able to make it to that appointment given her intractable nausea and vomiting. She also states that she's been having small flecks of blood and streaking blood in her emesis which only occurred after significant amounts of vomiting. She also admits to some associated constipation for the last 4 days however she has a chronic history of constipation and hasn't taken anything for her symptoms. She denies associated abdominal pain, chest pain, shortness breath, fevers, chills. - Related Data Home Medications Medication Instructions Recorded Confirmed Gabapentin [Neurontin] 300 mg PO TID 02/15/16 03/05/17 Magnesium Gluconate [Magonate] 500 mg PO HS 02/15/16 03/05/17 SUMAtriptan SUCCINATE [Imitrex] 50 mg PO BID PRN 02/15/16 03/05/17 Acetaminophen [Tylenol] 650 mg PO Q6H PRN 07/17/16 03/05/17 Apixaban [Eliquis] 5 mg PO BID 01/08/17 03/05/17 Furosemide [Lasix] 40 mg PO DAILY 03/01/17 03/05/17 Levothyroxine Sodium [Synthroid] 75 mcg PO DAILY 03/01/17 03/05/17 Potassium Chloride [Klor-Con 20 meq PO TID 03/01/17 03/05/17 Sprinkle] Hydrocodone/Acetaminophen [[place] 1 - 2 tab PO Q6HR PRN 03/05/17 03/05/17 5-325] Previous Rx's Medication Instructions Recorded Ondansetron Odt [Zofran Odt] 4 mg PO Q8HR #7 tab 03/05/17 Allergies Allergy/AdvReac Type Severity Reaction Status Date / Time adhesive Allergy RASH FROM Verified 03/05/17 16:57 EKG STICKERS celecoxib [From Celebrex] Allergy Rash/Hives Verified 03/05/17 16:57 sertraline HCl [From Zoloft] Allergy Rash/Hives Verified 03/05/17 16:57 sulfamethoxazole Allergy Anaphylaxis Verified 03/05/17 16:57 [From Bactrim] trimethoprim [From Bactrim] Allergy Anaphylaxis Verified 03/05/17 16:57 Review of Systems ROS Statement: Those systems with pertinent positive or pertinent negative responses have been documented in the HPI. ROS Other: All systems not noted in ROS Statement are negative. Constitutional: Denies: fever, chills Eyes: Denies: eye pain, vision change ENT: Denies: ear pain, throat pain Respiratory: Denies: cough, dyspnea Cardiovascular: Denies: chest pain, palpitations Endocrine: Denies: fatigue, polydipsia Gastrointestinal: Reports: nausea, vomiting, constipation, hematemesis (Minor). Denies: abdominal pain, diarrhea, melena, hematochezia Genitourinary: Denies: urgency, dysuria Musculoskeletal: Denies: back pain, arthralgia, myalgia Skin: Denies: rash, lesions Neurological: Denies: headache, weakness Psychiatric: Denies: anxiety, depression Hematological/Lymphatic: Denies: easy bleeding, easy bruising Past Medical History Past Medical History: Atrial Fibrillation, Chest Pain / Angina, Heart Failure, COPD, Fibromyalgia, GERD/Reflux, GI Bleed, Hypertension, Myocardial Infarction ( NM), Osteoarthritis (OA), Rheumatoid Arthritis (RA), Thyroid Disorder Additional Past Medical History / Comment(s): hx Syncopy/Tachybrady syndrome. migraines, hx TIA, heart murmer, hx ulcers in stomach, hx esophageal ulcer and stricture, following soft or liquid diet currently, vomited dark coff ground emesis, anemia, gets dizzy when she has to look up due to previous ear surgery Last Myocardial Infarction Date:: 2002 History of Any Multi-Drug Resistant Organisms: None Reported Past Surgical History: Appendectomy, Cardiac Ablation, Cholecystectomy, Ear Surgery, Heart Catheterization, Hysterectomy, Orthopedic Surgery, Pacemaker, Tonsillectomy Additional Past Surgical History / Comment(s): ORIF LEFT LOWER ARM-HAS HARDWARE. Numerous DILATATION OF esophagus. Pacemaker (ADAPTA) placed 07/07 at [facility]. Bilateral stapedectomies. surgery for hiatal hernia Past Anesthesia/Blood Transfusion Reactions: Family History of Problems w/ Anesthesia, Motion Sickness, Postoperative Nausea & Vomiting (PONV) Additional Past Anesthesia/Blood Transfusion Reaction / Comment(s): no problems with prior blood transfusion. BROTHER HAS PONV. Type of Cardiac Device: Permanent Pacemaker Device Placement Date:: 06/2016 Past Psychological History: Depression Smoking Status: Never smoker Past Alcohol Use History: None Reported Past Drug Use History: None Reported - Past Family History Brother(s) Family Medical History: Cancer Additional Family Medical History / Comment(s): throat Father Family Medical History: COPD, Pneumonia Additional Family Medical History / Comment(s): emphysema Mother Family Medical History: COPD, Rheumatoid Arthritis (RA) Additional Family Medical History / Comment(s): smoked, emphysema, osteoporosis. General Exam Limitations: no limitations General appearance: alert, in no apparent distress Head exam: Present: atraumatic, normocephalic, normal inspection Eye exam: Present: normal appearance, PERRL, EOMI. Absent: scleral icterus, conjunctival injection, periorbital swelling ENT exam: Present: normal exam, mucous membranes moist Neck exam: Present: normal inspection. Absent: tenderness, meningismus, lymphadenopathy Respiratory exam: Present: normal lung sounds bilaterally. Absent: respiratory distress, wheezes, rales, rhonchi, stridor Cardiovascular Exam: Present: regular rate, normal rhythm, normal heart sounds. Absent: systolic murmur, diastolic murmur, rubs, gallop, clicks GI/Abdominal exam: Present: soft, normal bowel sounds. Absent: distended, tenderness, guarding, rebound, rigid Rectal exam: Present: deferred Extremities exam: Present: normal inspection, full ROM, normal capillary refill. Absent: tenderness, pedal edema, joint swelling, calf tenderness Back exam: Present: normal inspection Neurological exam: Present: alert, oriented X3, CN II-XII intact Psychiatric exam: Present: normal affect, normal mood Skin exam: Present: warm, dry, intact, normal color. Absent: rash Course Vital Signs 03/05/17 03/05/17 03/05/17 16:34 18:55 20:39 Temperature 97.8 F 97.0 F L Pulse Rate 85 76 71 Respiratory 18 18 18 Rate Blood Pressure 158/87 162/88 168/80 O2 Sat by Pulse 98 99 97 Oximetry Medical Decision Making - Medical Decision Making 71-year-old female with significant past medical history presented for evaluation of intractable nausea and vomiting with mild hematemesis since Sunday. She states that she had a hiatal hernia repair by Dr. Guerrero but over the last few weeks has been having some recurrence of her symptoms and is scheduled for an esophageal scope on Sunday. On physical examination she has an emesis bag that she is holding but is not vomiting. She appears to be in no apparent distress and her exam is benign with an abdomen that is soft and non-peritoneal without guarding, rigidity, or rebound. The patient's presentation was discussed with Dr. Guerrero who agreed with plan to obtain labs and acute abdominal series. IV fluids and pain control as well as Zofran and a scopolamine patch were also provided. Labs revealed no significant abnormalities and the acute abdominal series showed no acute process. The patient was reevaluated and had improvement in her symptoms. Dr. Guerrero came to the ED to evaluate the patient requested that a CT abdomen and pelvis with oral contrast be obtained. This study showed a single 3 cm loop of mid small bowel that likely related to localized ileus. This is discussed with the radiologist who stated that this did not likely represent an obstruction and he noted no changes to the previously noted hiatal hernia. Dr. Guerrero was updated on the status of her patient and agreed with plan to discharge with Zofran and instructions to follow-up on Sunday for the procedure. The patient was reevaluated and stated that some of her nausea was coming back and informed that she would be given a prescription for Zofran. She was informed of all discussions had with Dr. Guerrero and agreed with this plan of care. She was further given instructions for return to this ED. The patient and her daughter acknowledged an understanding of all information provided and agreed with this plan of care. - Lab Data Result diagrams: 03/05/17 16:50 03/05/17 16:50 Lab Results 03/05/17 03/05/17 03/05/17 Range/Units 16:50 16:50 16:50 WBC 8.9 (3.8-10.6) k/uL RBC 4.26 (3.80-5.40) m/uL Hgb 11.8 (11.4-16.0) gm/dL Hct 37.9 (34.0-46.0) % MCV 88.9 (80.0-100.0) fL MCH 27.6 (25.0-35.0) pg MCHC 31.1 (31.0-37.0) g/dL RDW 17.0 H (11.5-15.5) % Plt Count 424 (150-450) k/uL Neutrophils % 51 % Lymphocytes % 33 % Monocytes % 6 % Eosinophils % 6 % Basophils % 1 % Neutrophils # 4.6 (1.3-7.7) k/uL Lymphocytes # 2.9 (1.0-4.8) k/uL Monocytes # 0.6 (0-1.0) k/uL Eosinophils # 0.6 (0-0.7) k/uL Basophils # 0.1 (0-0.2) k/uL Hypochromasia Moderate Anisocytosis Slight Sodium 139 (137-145) mmol/L Potassium 4.5 (3.5-5.1) mmol/L Chloride 99 (98-107) mmol/L Carbon Dioxide 29 (22-30) mmol/L Anion Gap 11 mmol/L BUN 28 H (7-17) mg/dL Creatinine 1.30 H (0.52-1.04) mg/dL Est GFR (MDRD) Af Amer 49 (>60 ml/min/1.73 sqM) Est GFR (MDRD) Non-Af 41 (>60 ml/min/1.73 sqM) Glucose 80 (74-99) mg/dL Plasma Lactic Acid Harjeet 1.5 (0.7-2.0) mmol/L Calcium 9.5 (8.4-10.2) mg/dL Magnesium 2.0 (1.6-2.3) mg/dL Total Bilirubin 0.4 (0.2-1.3) mg/dL AST 34 (14-36) U/L ALT 22 (9-52) U/L Alkaline Phosphatase 81 (38-126) U/L Troponin I (0.000-0.034) ng/mL Total Protein 7.9 (6.3-8.2) g/dL Albumin 4.4 (3.5-5.0) g/dL Lipase 229 (23-300) U/L Urine Color Urine Appearance (Clear) Urine pH (5.0-8.0) Ur Specific [place] (1.001-1.035) Urine Protein (Negative) Urine Glucose (UA) (Negative) Urine Ketones (Negative) Urine Blood (Negative) Urine Nitrite (Negative) Urine Bilirubin (Negative) Urine Urobilinogen (<2.0) mg/dL Ur Leukocyte Esterase (Negative) 03/05/17 03/05/17 Range/Units 16:50 18:00 WBC (3.8-10.6) k/uL RBC (3.80-5.40) m/uL Hgb (11.4-16.0) gm/dL Hct (34.0-46.0) % MCV (80.0-100.0) fL MCH (25.0-35.0) pg MCHC (31.0-37.0) g/dL RDW (11.5-15.5) % Plt Count (150-450) k/uL Neutrophils % % Lymphocytes % % Monocytes % % Eosinophils % % Basophils % % Neutrophils # (1.3-7.7) k/uL Lymphocytes # (1.0-4.8) k/uL Monocytes # (0-1.0) k/uL Eosinophils # (0-0.7) k/uL Basophils # (0-0.2) k/uL Hypochromasia Anisocytosis Sodium (137-145) mmol/L Potassium (3.5-5.1) mmol/L Chloride (98-107) mmol/L Carbon Dioxide (22-30) mmol/L Anion Gap mmol/L BUN (7-17) mg/dL Creatinine (0.52-1.04) mg/dL Est GFR (MDRD) Af Amer (>60 ml/min/1.73 sqM) Est GFR (MDRD) Non-Af (>60 ml/min/1.73 sqM) Glucose (74-99) mg/dL Plasma Lactic Acid Harjeet (0.7-2.0) mmol/L Calcium (8.4-10.2) mg/dL Magnesium (1.6-2.3) mg/dL Total Bilirubin (0.2-1.3) mg/dL AST (14-36) U/L ALT (9-52) U/L Alkaline Phosphatase (38-126) U/L Troponin I <0.012 (0.000-0.034) ng/mL Total Protein (6.3-8.2) g/dL Albumin (3.5-5.0) g/dL Lipase (23-300) U/L Urine Color Colorless Urine Appearance Clear (Clear) Urine pH 7.5 (5.0-8.0) Ur Specific [place] 1.004 (1.001-1.035) Urine Protein Negative (Negative) Urine Glucose (UA) Negative (Negative) Urine Ketones Negative (Negative) Urine Blood Negative (Negative) Urine Nitrite Negative (Negative) Urine Bilirubin Negative (Negative) Urine Urobilinogen <2.0 (<2.0) mg/dL Ur Leukocyte Esterase Negative (Negative) Disposition Clinical Impression: Nausea and vomiting, Nausea and vomiting in adult, Abdominal pain Disposition: HOME SELF-CARE Condition: Stable Instructions: Acute Nausea and Vomiting (ED), Abdominal Pain (ED) Additional Instructions: Please use medication as discussed. Please follow up with family doctor if symptoms have not improved over the next two days. Please return to the emergency room if your symptoms increase or worsen or for any other concerns. Prescriptions: Ondansetron Odt [Zofran Odt] 4 mg PO Q8HR #7 tab Referrals: Elroy Wray DO [Primary Care Provider] - 1-2 days Time of Disposition: 20:35
[2017-03-05 20:40] VITALS: BP 168/80; PULSE 71; TEMP 97
--- NOTE | 2017-03-05 22:25 | P.PN ---
Progress Note - Text Progress Note Date: 03/05/17 Patient seen and evaluated. Patient reports hematemesis. Daughter at bedside. Patient reports LUQ pain. Recommend CT of abdomen with oral contrast. Outpatient EGD schedule in 1-2 days. Recommend anti-emetics with follow-up as outpatient.
== END 2017-03-05 21:06 | disposition home or self-care (01) ==
LOC: EC 16:32
DX: R11.2 Nausea with vomiting, unspecified (principal); R10.9 Unspecified abdominal pain; K59.00 Constipation, unspecified; K92.0 Hematemesis; M79.7 Fibromyalgia; I11.0 Hypertensive heart disease with heart failure; I50.9 Heart failure, unspecified; I25.2 Old myocardial infarction; F32.9 Major depressive disorder, single episode, unspecified; Z87.19 Personal history of other diseases of the digestive system; Z98.890 Other specified postprocedural states; Z86.73 Personal history of transient ischemic attack (TIA), and cerebral infarction without residual deficits; Z90.49 Acquired absence of other specified parts of digestive tract; Z90.710 Acquired absence of both cervix and uterus; Z79.899 Other long term (current) drug therapy; Z88.1 Allergy status to other antibiotic agents; Z88.2 Allergy status to sulfonamides; Z88.6 Allergy status to analgesic agent; Z88.8 Allergy status to other drugs, medicaments and biological substances; Z91.048 Other nonmedicinal substance allergy status
CPT/HCPCS: 36415; 93005; 80053; 83605; 83690; 83735; 84484; 85025; 81003; 74022; 74176; 99285; 96374; 96375; 96376; 96361; J2270; J2405

== ENCOUNTER 2017-03-07 10:00 | Day surgery (SDC) | payer MEDICARE, OTHER ==
[2017-03-01 13:32] VITALS: BMI 21.7
--- NOTE | 2017-03-07 08:56 | P.GSHP ---
History of Present Illness H&P Date: 03/07/17 CHIEF COMPLAINT: GERD HISTORY OF PRESENT ILLNESS: The patient is a 71-year-old female who presents reports gastroesophageal reflux disease. Upper endoscopy was offered for further evaluation and management. PAST MEDICAL HISTORY: Please see list. PAST SURGICAL HISTORY: Please see list. MEDICATIONS: Please see list. ALLERGIES: Please see list. SOCIAL HISTORY: No illicit drug use FAMILY HISTORY: No reports of Crohn disease or ulcerative colitis. REVIEW OF ORGAN SYSTEMS: CONSTITUTIONAL: No reports of fevers or chills. GI: Denies any blood in stools or constipation. PHYSICAL EXAM: VITAL SIGNS: Stable GENERAL: Well-developed and pleasant in no acute distress. HEENT: No scleral icterus. Extraocular movements grossly intact. Moist buccal mucosa. NECK: Supple without lymphadenopathy. CHEST: Unlabored respirations. Equal bilateral excursions. CARDIOVASCULAR: Regular rate and rhythm. Distal 2+ pulses. ABDOMEN: Soft, nondistended. MUSCULOSKELETAL: No clubbing, cyanosis, or edema. ASSESSMENT: 1. Gastroesophageal reflux disease PLAN: 1. Recommend proceeding with an upper endoscopy Past Medical History Past Medical History: Atrial Fibrillation, Chest Pain / Angina, Heart Failure, COPD, Fibromyalgia, GERD/Reflux, GI Bleed, Hypertension, Myocardial Infarction ( [place]), Osteoarthritis (OA), Rheumatoid Arthritis (RA), Thyroid Disorder Additional Past Medical History / Comment(s): hx Syncopy/Tachybrady syndrome. migraines, hx TIA, heart murmer, hx ulcers in stomach, hx esophageal ulcer and stricture, following soft or liquid diet currently, vomited dark coff ground emesis, anemia, gets dizzy when she has to look up due to previous ear surgery Last Myocardial Infarction Date:: 2002 History of Any Multi-Drug Resistant Organisms: None Reported Past Surgical History: Appendectomy, Cardiac Ablation, Cholecystectomy, Ear Surgery, Heart Catheterization, Hysterectomy, Orthopedic Surgery, Pacemaker, Tonsillectomy Additional Past Surgical History / Comment(s): ORIF LEFT LOWER ARM-HAS HARDWARE. Numerous DILATATION OF esophagus. Pacemaker (ADAPTA) placed 07/07 at [facility]. Bilateral stapedectomies. surgery for hiatal hernia Past Anesthesia/Blood Transfusion Reactions: Family History of Problems w/ Anesthesia, Motion Sickness, Postoperative Nausea & Vomiting (PONV) Additional Past Anesthesia/Blood Transfusion Reaction / Comment(s): no problems with prior blood transfusion. BROTHER HAS PONV. Type of Cardiac Device: Permanent Pacemaker Device Placement Date:: 06/2016 Smoking Status: Never smoker - Past Family History Brother(s) Family Medical History: Cancer Additional Family Medical History / Comment(s): throat Father Family Medical History: COPD, Pneumonia Additional Family Medical History / Comment(s): emphysema Mother Family Medical History: COPD, Rheumatoid Arthritis (RA) Additional Family Medical History / Comment(s): smoked, emphysema, osteoporosis. Medications and Allergies Home Medications Medication Instructions Recorded Confirmed Type Gabapentin [Neurontin] 300 mg PO TID 02/15/16 03/05/17 History Magnesium Gluconate [Magonate] 500 mg PO HS 02/15/16 03/05/17 History SUMAtriptan SUCCINATE [Imitrex] 50 mg PO BID PRN 02/15/16 03/05/17 History Acetaminophen [Tylenol] 650 mg PO Q6H PRN 07/17/16 03/05/17 History Apixaban [Eliquis] 5 mg PO BID 01/08/17 03/05/17 History Furosemide [Lasix] 40 mg PO DAILY 03/01/17 03/05/17 History Levothyroxine Sodium [Synthroid] 75 mcg PO DAILY 03/01/17 03/05/17 History Potassium Chloride [Klor-Con 20 meq PO TID 03/01/17 03/05/17 History Sprinkle] Hydrocodone/Acetaminophen [Vernalis 1 - 2 tab PO Q6HR PRN 03/05/17 03/05/17 History 5-325] Ondansetron Odt [Zofran Odt] 4 mg PO Q8HR #7 tab 03/05/17 Rx Allergies Allergy/AdvReac Type Severity Reaction Status Date / Time adhesive Allergy RASH FROM Verified 03/05/17 16:57 EKG STICKERS celecoxib [From Celebrex] Allergy Rash/Hives Verified 03/05/17 16:57 sertraline HCl [From Zoloft] Allergy Rash/Hives Verified 03/05/17 16:57 sulfamethoxazole Allergy Anaphylaxis Verified 03/05/17 16:57 [From Bactrim] trimethoprim [From Bactrim] Allergy Anaphylaxis Verified 03/05/17 16:57
[~2017-03-07 10:00] MED LIST changes: -DEXAMETHASONE SOD PHOSPHATE 10 MG/ML 1 ML VIAL IV ONE; -HEPARIN SODIUM,PORCINE 5,000 UNIT/ML 1 ML VIAL SQ ONE; -HYDROmorphone 1 MG/ML 1 ML SYRINGE IVP PRN; +LACTATED RINGERS 1,000 ML IV SCH; -ONDANSETRON 4 MG/2 ML VIAL IVP ONE; -SCOPOLAMINE 1.5MG/72HR PATCH TRANSDERM ONE; -ceFAZolin 2 GM in SODIUM CHLORIDE 0.9% 100 ML IVPB ONE
[2017-03-07 11:29] VITALS: TEMP 97.7
[2017-03-07] MEDS ORDERED: GLYCOPYRROLATE 0.2 MG/ML 2 ML VIAL ONE (11:40)
[2017-03-07] MEDS ORDERED: LIDOCAINE 1% INJ 10MG/ML (20 ML MDV) ONE (11:40)
[2017-03-07] MEDS ORDERED: PROPOFOL 10 MG/ML 20 ML VIAL IV ONE (11:40)
[2017-03-07 12:14] VITALS: RESP 16
--- NOTE | 2017-03-07 12:18 | P.PCN ---
Date of Procedure: 03/07/17 Description of Procedure: PREOPERATIVE DIAGNOSIS: Dysphagia. Epigastric abdominal pain. History of esophageal stricture. History of hematemesis. POSTOPERATIVE DIAGNOSIS: Dysphagia. Epigastric abdominal pain. History of esophageal stricture. History of hematemesis. Diffuse superficial gastritis with acute bleeding. OPERATION: Esophagogastroduodenoscopy with rigid dilator from 39 to 48 Fr. SURGEON: Miracle Guerrero MD ANESTHESIA: MAC. INDICATIONS: The patient is a 71-year-old female who presents with a history of dysphagia including epigastric pain. She has history of previous dilation of the esophagus. She reports trouble swallowing her pills including hematemesis. Benefits and risks of the procedure were described. Informed consent was obtained. DESCRIPTION: The patient was brought into the endoscopy suite and laid in the left lateral decubitus position. After a timeout was confirmed, the procedure was initiated. An Olympus gastroscope was passed to the posterior oropharynx where the upper esophageal sphincter was extremely tight. An 8.6 mm diameter upper scope otherwise 25.8-Kittitian scope was gently passed down the superior portion of the esophagus to the distal esophagus. The stomach was entered. Mild gastritis was identified. The scope was advanced to the duodenum which was unremarkable. Retroflexion the scope confirmed a Hill grade 2 lower esophageal valve. Next using an Croatian rigid dilator, a guidewire was placed through the pediatric gastroscope. Next the scope was withdrawn. A serial dilation from 39 -Kittitian to 48-Kittitian rigid Croatian dilator was passed carefully along the posterior oropharynx to 35 cm and left in place for 2-3 minutes stretch. The dilator was withdrawn including the guidewire. The scope was reentered along the posterior oropharynx with no findings of full-thickness tear of the upper esophageal sphincter. A recurrent diaphragmatic hiatal hernia of 1 cm identified. No full-thickness injury was encountered. The GI tract was desufflated. The patient tolerated the procedure well. FINDINGS: Squamocolumnar junction unremarkable at 37 cm. Stricture of upper esophagus. Croatian rigid dilator 48-Kittitian used. Multiple white plaques along the esophagus consistent with yeast. Diffuse gastritis with active bleeding. Hill grade 2 lower esophageal valve. Recurrent hiatal hernia, 1 cm. RECOMMENDATIONS: Carafate for diffuse gastritis. Recommend Zantac. Plan - Discharge Summary New Discharge Prescriptions: No Action Magnesium Gluconate [Magonate] 500 mg PO HS Gabapentin [Neurontin] 300 mg PO TID SUMAtriptan SUCCINATE [Imitrex] 50 mg PO BID PRN PRN Reason: Migraine Headache Acetaminophen [Tylenol] 650 mg PO Q6H PRN PRN Reason: Pain Apixaban [Eliquis] 5 mg PO BID Furosemide [Lasix] 40 mg PO DAILY Levothyroxine Sodium [Synthroid] 75 mcg PO DAILY Potassium Chloride [Klor-Con Sprinkle] 20 meq PO TID Hydrocodone/Acetaminophen [[place]roomfield 5-325] 1 - 2 tab PO Q6HR PRN PRN Reason: Pain Ondansetron Odt [Zofran Odt] 4 mg PO Q8HR #7 tab Discharge Medication List Gabapentin [Neurontin] 300 mg PO TID 02/15/16 [History] Magnesium Gluconate [Magonate] 500 mg PO HS 02/15/16 [History] SUMAtriptan SUCCINATE [Imitrex] 50 mg PO BID PRN 02/15/16 [History] Acetaminophen [Tylenol] 650 mg PO Q6H PRN 07/17/16 [History] Apixaban [Eliquis] 5 mg PO BID 01/08/17 [History] Furosemide [Lasix] 40 mg PO DAILY 03/01/17 [History] Levothyroxine Sodium [Synthroid] 75 mcg PO DAILY 03/01/17 [History] Potassium Chloride [Klor-Con Sprinkle] 20 meq PO TID 03/01/17 [History] Hydrocodone/Acetaminophen [[place]field 5-325] 1 - 2 tab PO Q6HR PRN 03/05/17 [History] Ondansetron Odt [Zofran Odt] 4 mg PO Q8HR #7 tab 03/05/17 [Rx]
[2017-03-07 13:19] VITALS: BP 131/75; PULSE 90
== END 2017-03-07 13:25 | disposition home or self-care (01) ==
LOC: ORWHC2ENDO 10:00
PROVIDERS: ATTEND Surgery Plastic and Reconstructive Surgery
DX: K22.2 Esophageal obstruction (principal); K29.61 Other gastritis with bleeding; K44.9 Diaphragmatic hernia without obstruction or gangrene; K21.9 Gastro-esophageal reflux disease without esophagitis; I48.91 Unspecified atrial fibrillation; I11.0 Hypertensive heart disease with heart failure; I50.9 Heart failure, unspecified; J44.9 Chronic obstructive pulmonary disease, unspecified; M79.7 Fibromyalgia; I25.2 Old myocardial infarction; M19.90 Unspecified osteoarthritis, unspecified site; M06.9 Rheumatoid arthritis, unspecified; E07.9 Disorder of thyroid, unspecified; Z86.73 Personal history of transient ischemic attack (TIA), and cerebral infarction without residual deficits; Z95.0 Presence of cardiac pacemaker; Z79.01 Long term (current) use of anticoagulants; Z79.899 Other long term (current) drug therapy; Z88.1 Allergy status to other antibiotic agents; Z88.2 Allergy status to sulfonamides; Z88.8 Allergy status to other drugs, medicaments and biological substances; Z91.048 Other nonmedicinal substance allergy status
CPT/HCPCS: 43249; J2001; J2704

== ENCOUNTER 2017-04-25 14:39 | Inpatient (IN) | payer MEDICARE, OTHER ==
[2017-04-25] MEDS ORDERED: SODIUM CHLORIDE 0.9% 1,000 ML IV ONE (15:23)
--- NOTE | 2017-04-25 15:36 | ED ---
General Adult HPI - General Chief complaint: Fall Stated complaint: Fall Time Seen by Provider: 04/25/17 14:47 Source: patient, EMS, RN notes reviewed, old records reviewed Mode of arrival: EMS Limitations: no limitations - History of Present Illness Initial comments: Chief complaint history of present illness 71-year-old female who reports the proximal starting one month ago she fell once or twice per week more recently she's been falling daily. Today she reports she fell several times in her own home and twice while outside. She had to crawl in after falling a second time. Her granddaughter found her on the floor and called the ambulance. Patient has discomfort from the last fall to her left paralumbar region. She describes her collapsing as both legs giving out from under her. Patient denies injuring her head or anything above the lumbar spine. She is on elquis. Patient has history for catheterizations and pacemaker. - Related Data Home Medications Medication Instructions Recorded Confirmed Gabapentin [Neurontin] 300 mg PO TID 02/15/16 04/25/17 Magnesium Gluconate [Magonate] 500 mg PO HS 02/15/16 04/25/17 SUMAtriptan SUCCINATE [Imitrex] 50 mg PO BID PRN 02/15/16 04/25/17 Acetaminophen [Tylenol] 650 mg PO Q6H PRN 07/17/16 04/25/17 Apixaban [Eliquis] 5 mg PO BID 01/08/17 04/25/17 Furosemide [Lasix] 40 mg PO BID 03/01/17 04/25/17 Levothyroxine Sodium [Synthroid] 75 mcg PO DAILY 03/01/17 04/25/17 Potassium Chloride [Klor-Con 20 meq PO TID 03/01/17 04/25/17 Sprinkle] Ondansetron Odt [Zofran Odt] 4 mg PO Q8HR PRN 04/25/17 04/25/17 Pantoprazole Sodium [Protonix] 40 mg PO BID 04/25/17 04/25/17 Previous Rx's Medication Instructions Recorded Sucralfate [Carafate] 1 gm PO BID #30 tablet 03/07/17 Allergies Allergy/AdvReac Type Severity Reaction Status Date / Time adhesive Allergy RASH FROM Verified 04/25/17 14:54 EKG STICKERS celecoxib [From Celebrex] Allergy Rash/Hives Verified 04/25/17 14:54 sertraline HCl [From Zoloft] Allergy Rash/Hives Verified 04/25/17 14:54 sulfamethoxazole Allergy Anaphylaxis Verified 04/25/17 14:54 [From Bactrim] trimethoprim [From Bactrim] Allergy Anaphylaxis Verified 04/25/17 14:54 Review of Systems ROS Statement: Those systems with pertinent positive or pertinent negative responses have been documented in the HPI. review of systems patient denies any headache or visual acuity changes Complaint of neck pain. No chest pain or shortness of breath or abdominal pain. The patient has pain to her left paralumbar region. Describes collapsing because of weakness to both legs. Otherwise alert.Past medical problems hypertension, A. fib, CHF, COPD, fibromyalgia, GERD, GI bleed,SD, OA, RA, hypothyroidism, history of syncope tachycardia. Her surgeries include appendectomy, cardiac ablation, cholecystectomy, ear surgery, hysterectomy, pacemaker, tonsillectomy, reduction lower extremity. she states she has two compressed thoracic vertebra. Family history noncontributory. ALLERGIES to adhesive, Celebrex, sertraline, sulfa drugs. ROS Other: All systems not noted in ROS Statement are negative. Past Medical History Past Medical History: Atrial Fibrillation, Chest Pain / Angina, Heart Failure, COPD, Fibromyalgia, GERD/Reflux, GI Bleed, Hypertension, Myocardial Infarction ( [place]), Osteoarthritis (OA), Rheumatoid Arthritis (RA), Thyroid Disorder Additional Past Medical History / Comment(s): hx Syncopy/Tachybrady syndrome. migraines, hx TIA, heart murmer, hx ulcers in stomach, hx esophageal ulcer and stricture, following soft or liquid diet currently, vomited dark coff ground emesis, anemia, gets dizzy when she has to look up due to previous ear surgery Last Myocardial Infarction Date:: 2002 History of Any Multi-Drug Resistant Organisms: None Reported Past Surgical History: Appendectomy, Cardiac Ablation, Cholecystectomy, Ear Surgery, Heart Catheterization, Hysterectomy, Orthopedic Surgery, Pacemaker, Tonsillectomy Additional Past Surgical History / Comment(s): ORIF LEFT LOWER ARM-HAS HARDWARE. Numerous DILATATION OF esophagus. Pacemaker (ADAPTA) placed 07/07 at [facility]. Bilateral stapedectomies. surgery for hiatal hernia Past Anesthesia/Blood Transfusion Reactions: Family History of Problems w/ Anesthesia, Motion Sickness, Postoperative Nausea & Vomiting (PONV) Additional Past Anesthesia/Blood Transfusion Reaction / Comment(s): no problems with prior blood transfusion. BROTHER HAS PONV. Type of Cardiac Device: Permanent Pacemaker Device Placement Date:: 06/2016 Past Psychological History: Depression Smoking Status: Never smoker Past Alcohol Use History: None Reported Past Drug Use History: None Reported - Past Family History Brother(s) Family Medical History: Cancer Additional Family Medical History / Comment(s): throat Father Family Medical History: COPD, Pneumonia Additional Family Medical History / Comment(s): emphysema Mother Family Medical History: COPD, Rheumatoid Arthritis (RA) Additional Family Medical History / Comment(s): smoked, emphysema, osteoporosis. General Exam - General Exam Comments Initial Comments: General: The patient is awake and alert, complaining of pain to the left paralumbar region and across the lower back. Patient reports several times today and legs went out from under her and a jerking motion causing her to fall. Twice she felt outside the first time into a [place] without hurting herself the second time across the threshold of her door. She had to crawl into the home where her granddaughter called the ambulance. Denies any loss of consciousness no head injury no chest pain or shortness of breath. Vital signs show temperature 98.4 pulse 99 respiratory rate 22 pulse ox 93% on room air blood pressure 171/83 Eye: Pupils are equal, round and reactive to light, extra-ocular movements are intact ; there is normal conjunctiva bilaterally. No signs of icterus. Ears, nose, mouth and throat: There are moist mucous membranes and no oral lesions. Neck: The neck is supple, there is no tenderness . Cardiovascular: There is a regular rate and rhythm. No murmur, rub or gallop is appreciated. Respiratory: Lungs are clear to auscultation, respirations are non-labored, breath sounds are equal. No wheezes, stridor, rales, or rhonchi. Gastrointestinal: Soft, non-distended, non-tender abdomen without masses or organomegaly noted. There is no rebound or guarding present. No CVA tenderness. Bowel sounds are unremarkable. Back: patient has pain from the right paralumbar region across the lower back. Position of comfort is flat on her back with her left leg bent at the knee and hip. Musculoskeletal: Normal ROM, no tenderness, There is no pedal edema. There is no calf tenderness or swelling. Sensation intact. Pulses equal bilaterally 2+. Neurological: alert, oriented. Moves everything except the area pain or lumbar spine area. Skin: Skin is warm and dry and no rashes or lesions are noted. Limitations: no limitations Course Vital Signs 04/25/17 04/25/17 14:46 16:12 Temperature 98.4 F Pulse Rate 99 83 Respiratory 22 18 Rate Blood Pressure 171/83 138/83 O2 Sat by Pulse 93 L 97 Oximetry EKG Findings - EKG Comments: EKG Findings:: EKG was done and reviewed at [facility] to show normal sinus rhythm age undetermined lateral and/or inferior infarct. These EKGs similar to one done on the 05 of March. Today's rate 78 MN interval is 140 QRS [address] QT [address] Manuel Medical Decision Making - Medical Decision Making Medical decision making; this is a 71-year-old female was fallen several times today because her legs give out from under her. CAT scan pending.Labs show white count 8.9 hemoglobin 12 medical 38, INR 1.1, potassium 2.7. This is being supplemented by IV potassium. Her BUN is 14 creatinine 1.08 GFR 50. Glucose 109. patient's daughter is here and stated that she was confused over the weekend. Which is not usual for her. CT the brain was done and reviewed by radiologist his final impression is negative CT the brain. No change. As read by Dr. Helms CT of the lumbosacral spine was done and reviewed by radiologist his impression is there is osteopenia. There is 25% depression of the superior endplate of L4. The posterior elements are intact. Vertebral have normal alignment. There is no paraspinal mass. Impression L4 compression fractures stable compared to 1113 and 17 computed tomography scan. No acute fracture seen. Osteopenia. No evidence of any significant spinal stenosis. As read by Dr. Helms The patient be admitted to the hospital because of frequent falls, confusion, hypokalemia. - Lab Data Result diagrams: 04/25/17 15:54 04/25/17 15:54 Lab Results 04/25/17 04/25/17 04/25/17 Range/Units 15:54 15:54 15:54 WBC 8.9 (3.8-10.6) k/uL RBC 4.34 (3.80-5.40) m/uL Hgb 12.0 (11.4-16.0) gm/dL Hct 38.4 (34.0-46.0) % MCV 88.4 (80.0-100.0) fL MCH 27.7 (25.0-35.0) pg MCHC 31.3 (31.0-37.0) g/dL RDW 15.3 (11.5-15.5) % Plt Count 319 (150-450) k/uL Neutrophils % 81 % Lymphocytes % 9 % Monocytes % 3 % Eosinophils % 4 % Basophils % 1 % Neutrophils # 7.2 (1.3-7.7) k/uL Lymphocytes # 0.8 L (1.0-4.8) k/uL Monocytes # 0.3 (0-1.0) k/uL Eosinophils # 0.4 (0-0.7) k/uL Basophils # 0.1 (0-0.2) k/uL Hypochromasia Slight PT 10.3 (9.0-12.0) sec INR 1.1 (<1.2) APTT 23.1 (22.0-30.0) sec Sodium 140 (137-145) mmol/L Potassium 2.7 L* (3.5-5.1) mmol/L Chloride 92 L (98-107) mmol/L Carbon Dioxide 35 H (22-30) mmol/L Anion Gap 13 mmol/L BUN 14 (7-17) mg/dL Creatinine 1.08 H (0.52-1.04) mg/dL Est GFR (MDRD) Af Amer >60 (>60 ml/min/1.73 sqM) Est GFR (MDRD) Non-Af 50 (>60 ml/min/1.73 sqM) Glucose 109 H (74-99) mg/dL Calcium 9.2 (8.4-10.2) mg/dL Total Bilirubin 0.3 (0.2-1.3) mg/dL AST 37 H (14-36) U/L ALT 53 H (9-52) U/L Alkaline Phosphatase 99 (38-126) U/L Total Protein 7.5 (6.3-8.2) g/dL Albumin 4.1 (3.5-5.0) g/dL Disposition Clinical Impression: Frequent falls, Hypokalemia, Bilateral leg weakness Disposition: ADMITTED IP TO THIS HOSP Condition: Serious Referrals: Elroy Wray DO [Primary Care Provider] - 1-2 days
[2017-04-25] MEDS ORDERED: HYDROmorphone 1 MG/ML 1 ML SYRINGE IVP STA (15:48)
[2017-04-25] MEDS ORDERED: METOCLOPRAMIDE 5 MG/ML 2 ML VIAL IVP STA (15:49)
[2017-04-25 16:03] LABS: Basophils # (A) 0.1 k/uL (0-0.2); Basophils % (A) 1 %; Eosinophils # (A) 0.4 k/uL (0-0.7); Eosinophils % (A) 4 %; HCT 38.4 % (34.0-46.0); Hypochromasia Slight; Lymphocytes # (A) 0.8 k/uL (1.0-4.8); Lymphocytes % (A) 9 %; MCH 27.7 pg (25.0-35.0); MCHC 31.3 g/dL (31.0-37.0); MCV 88.4 fL (80.0-100.0); Mean Platelet Volume 7.6; Monocytes # (A) 0.3 k/uL (0-1.0); Monocytes % (A) 3 %; Neutrophils # (A) 7.2 k/uL (1.3-7.7); Neutrophils % (A) 81 %; Platelet Count 319 k/uL (150-450); RBC 4.34 m/uL (3.80-5.40); RDW 15.3 % (11.5-15.5); WBC 8.9 k/uL (3.8-10.6)
[2017-04-25 16:11] LABS: INR 1.1 (<1.2); Partial Thromboplastin Time 23.1 sec (22.0-30.0); Prothrombin Time 10.3 sec (9.0-12.0)
[2017-04-25 16:14] LABS: ALT 53 U/L (9-52); AST 37 U/L (14-36); Albumin 4.1 g/dL (3.5-5.0); Alkaline Phosphatase 99 U/L (38-126); Anion Gap 13 mmol/L; Blood Urea Nitrogen 14 mg/dL (7-17); Calcium 9.2 mg/dL (8.4-10.2); Carbon Dioxide 35 mmol/L (22-30); Chloride 92 mmol/L (98-107); Glucose 109 mg/dL (74-99); Sodium 140 mmol/L (137-145); Total Bilirubin 0.3 mg/dL (0.2-1.3); Total Protein 7.5 g/dL (6.3-8.2)
[2017-04-25 16:18] LABS: Potassium 2.7 mmol/L (3.5-5.1)
[2017-04-25] MEDS: POTASSIUM CHLORIDE 20 MEQ, LIDOCAINE 2% INJ 20 MG in SODIUM CHLORIDE 0.9% 100 ML IVPB SCH ×2 (16:42→18:53)
--- NOTE | 2017-04-25 16:57 | CT ---
EXAMINATION TYPE: CT lumbar spine wo con DATE OF EXAM: 04/25/2017 4:45 PM COMPARISON: NONE HISTORY: Fall x2 today. Left side low back pain. CT DLP: 389.2 mGycm Automated exposure control for dose reduction was used. Unenhanced CT of the lumbar spine was performed. Bone and soft tissue window settings are submitted as well as coronal and sagittal reconstructions. There is osteopenia. There is 25% depression of the superior endplate of L4. The posterior elements a re intact. Vertebra have normal alignment. There is no paraspinal mass. IMPRESSION: L4 compression fracture is stable compared to [address] scan[address] No acute fracture seen. Osteopenia . No evidence of any significant spinal stenosis.
--- NOTE | 2017-04-25 16:58 | CT ---
EXAMINATION TYPE: CT brain wo con DATE OF EXAM: 04/25/2017 COMPARISON: 07/17/2016 HISTORY: Fall x2 today. CT DLP: 971 mGycm Automated exposure control for dose reduction was used. FINDINGS: Ventricles of normal size. There is no mass effect nor midline shift. There is no evidence of intracr anial hemorrhage. The calvarium is intact. IMPRESSION: NEGATIVE CT SCAN OF THE BRAIN. NO CHANGE.
[2017-04-25] MEDS ORDERED: NALOXONE 0.4 MG/ML 1 ML VIAL IV PRN (17:20)
[2017-04-25] MEDS ORDERED: HYDROmorphone 1 MG/ML 1 ML SYRINGE IVP PRN (17:20)
[2017-04-25] MEDS ORDERED: SODIUM CHLORIDE 0.9% 1,000 ML IV SCH (17:30)
[2017-04-25] MEDS: HYDROmorphone 1 MG/ML 1 ML SYRINGE IVP PRN ×2 (19:38→23:34)
[2017-04-25] MEDS ORDERED: APIXABAN 5 MG TAB PO SCH (21:00)
[2017-04-25] MEDS: PANTOPRAZOLE 40 MG TABLET PO SCH (21:16)
[2017-04-25] MEDS: GABAPENTIN 300 MG CAP PO SCH (21:16)
[2017-04-25] MEDS: HEPARIN SODIUM,PORCINE 5,000 UNIT/ML 1 ML VIAL SQ SCH ×2 (21:16→23:45)
[2017-04-25] MEDS: SUCRALFATE 1 GM TAB PO SCH (21:16)
[2017-04-25] MEDS: MAGNESIUM OXIDE 400 MG TAB PO SCH (21:17)
[2017-04-25] MEDS: POTASSIUM CHLORIDE ORAL LIQUID 40 MEQ/30 ML CUP PO SCH (21:17)
[2017-04-25] MEDS ORDERED: POTASSIUM CHLORIDE ER 20 MEQ TAB.ER PO SCH (22:00)
[2017-04-25] MEDS ORDERED: ACETAMINOPHEN TAB 325 MG TAB PO PRN (22:44)
--- NOTE | 2017-04-25 23:26 | HP ---
HISTORY AND PHYSICAL DATE OF SERVICE: 04/25/2017 CHIEF COMPLAINT: Fall and weakness. HISTORY OF PRESENT ILLNESS: This 71-year-old woman with a past medical history of multiple medical problems, including atrial fibrillation, history of COPD, fibromyalgia, GI bleed, history of myocardial infarction, rheumatoid arthritis, being followed by Dr. Wray in the outpatient setting, complains of weakness. The patient apparently had a fall at least once or twice per week and the patient has to crawl and the family found the patient on the floor and by ambulance, according to the patient, taken to [facility] and admitted for further evaluation and treatment. The patient complains lumbar discomfort after the last fall. The patient also found to have severe hypokalemia. There is no history of any fever, rigors. No history of headache, loss of conscious or seizures. PAST MEDICAL HISTORY: His of atrial fibrillation, CHF, COPD, CHF, fibromyalgia, GERD, GI bleed. HOME MEDICATIONS: Reviewed, include: 1. Carafate 1 g p.o. b.i.d. 2. Imitrex 50 mg b.i.d. p.r.n. 3. Klor-Con 20 mg p.o. t.i.d. 4. Protonix 40 mg b.i.d. 5. Zofran 4 mg q.8h p.r.n. 6. Magonate 500 mg q.h.s. 7. Synthroid 75 mg daily. 8. Neurontin 300 t.i.d. 9. Lasix 40 mg p.o. 10.Tylenol 650 mg every 6 hours p.r.n. ALLERGIES: CELEBREX, ZOLOFT, BACTRIM. FAMILY HISTORY: History of throat cancer in the family. SOCIAL HISTORY: No history of smoking. No history of alcohol intake. REVIEW OF SYSTEMS: ENT: Diminished hearing. Diminished vision. CARDIOVASCULAR: No angina, palpitations. RESPIRATORY: No cough. GI: No nausea, vomiting. : No dysuria. NERVOUS: No numbness or weakness. ALLERGY/IMMUNOLOGY: No asthma or hay fever. MUSCULOSKELETAL: As mentioned earlier. HEMATOLOGY/ONCOLOGY: No history of anemia. ENDOCRINE: As mentioned earlier. CONSTITUTIONAL: As mentioned earlier. DERMATOLOGY: Negative. RHEUMATOLOGY: Negative. PSYCHIATRY: As mentioned earlier. PHYSICAL EXAM: Patient is alert, oriented x3. The pulse is 84, blood pressure 142/77, respirations 18, temperature 98.2, pulse ox 97% on room air. HEENT: Conjunctivae normal. Oral mucosa moist. NECK: No jugular venous distention. No carotid bruits. No lymph node enlargement. CARDIOVASCULAR: S1, S2 muffled. No S3. No S4. RESPIRATORY: Breath sounds diminished in the bases. A few scattered rhonchi. No crackles. ABDOMEN: Soft, nontender. No mass palpable. LEGS: No edema. No swelling. NERVOUS SYSTEM: Higher functions as mentioned earlier. Moves all 4 limbs. No focal motor or sensory deficits LYMPHATICS: No lymphadenopathy in neck or axillae. SKIN: No ulcers, rash or bleeding. JOINTS: No active deformity. LABS: Sodium 140, potassium 2.7, creatinine 1.08. ASSESSMENT: 1. History of multiple fall for evaluation. 2. Severe hypokalemia. 3. Increased creatinine with mild dehydration. 4. History atrial fibrillation. 5. History of congestive heart failure. 6. History of chronic obstructive pulmonary disease. 7. History of fibromyalgia. 8. History of gastrointestinal bleed. 9. History of hypertension. 10.History of rheumatoid arthritis. 11.History of cardiac ablation. RECOMMENDATIONS AND DISCUSSION: In this 71-year-old woman who presented with multiple complex medical issues, will monitor the patient closely. Continue with the current medical management and symptomatic treatment. Will initiate potassium supplementation. Otherwise, repeat labs in the morning. Cardiology consultation. Orthopedics has been also consulted. Repeat labs ordered and magnesium will be checked also. Guarded prognosis because of multiple complex medical issues. Further recommendations to follow. MMODL / IJN: [id number] / OLYA
[2017-04-25] MEDS ORDERED: Magnesium Replacement Protocol 1 EACH MISC MISCELLANE PRN (23:42)
[2017-04-26] MEDS: MAGNESIUM SULFATE-D5W PMX 1 GM in DEXTROSE/WATER 1 100ML.BAG IVPB SCH ×3 (00:25→02:40)
[2017-04-26] MEDS: HYDROmorphone 1 MG/ML 1 ML SYRINGE IVP PRN ×6 (02:47→21:34)
[2017-04-26] MEDS: SODIUM CHLORIDE 0.9% 1,000 ML with POTASSIUM CHLORIDE 40 MEQ IV SCH ×6 (03:47→16:32)
[2017-04-26] MEDS: LEVOTHYROXINE 75 MCG TAB PO SCH (05:17)
[2017-04-26 07:11] LABS: Basophils % (A) 1 %; Eosinophils # (A) 0.2 k/uL (0-0.7); Eosinophils % (A) 4 %; HCT 34.9 % (34.0-46.0); HGB 10.5 gm/dL (11.4-16.0); Hypochromasia Moderate; Lymphocytes # (A) 1.1 k/uL (1.0-4.8); Lymphocytes % (A) 24 %; MCH 27.8 pg (25.0-35.0); MCV 92.6 fL (80.0-100.0); Mean Platelet Volume 7.1; Monocytes # (A) 0.3 k/uL (0-1.0); Monocytes % (A) 6 %; Neutrophils # (A) 2.9 k/uL (1.3-7.7); Neutrophils % (A) 63 %; Platelet Count 270 k/uL (150-450); RBC 3.77 m/uL (3.80-5.40); WBC 4.6 k/uL (3.8-10.6)
[2017-04-26 07:39] LABS: ALT 44 U/L (9-52); AST 29 U/L (14-36); Albumin 3.3 g/dL (3.5-5.0); Alkaline Phosphatase 83 U/L (38-126); Anion Gap 8 mmol/L; Blood Urea Nitrogen 8 mg/dL (7-17); Calcium 8.5 mg/dL (8.4-10.2); Carbon Dioxide 32 mmol/L (22-30); Chloride 102 mmol/L (98-107); Glucose 106 mg/dL (74-99); Magnesium 2.5 mg/dL (1.6-2.3); Potassium 3.6 mmol/L (3.5-5.1); Sodium 142 mmol/L (137-145); Total Bilirubin 0.4 mg/dL (0.2-1.3); Total Protein 6.1 g/dL (6.3-8.2)
[2017-04-26] MEDS: PANTOPRAZOLE 40 MG TABLET PO SCH ×2 (08:52→20:51)
[2017-04-26] MEDS: SUCRALFATE 1 GM TAB PO SCH ×3 (08:53→23:32)
[2017-04-26] MEDS: GABAPENTIN 300 MG CAP PO SCH ×3 (08:53→20:47)
[2017-04-26] MEDS: HEPARIN SODIUM,PORCINE 5,000 UNIT/ML 1 ML VIAL SQ SCH ×3 (08:53→23:01)
[2017-04-26] MEDS: POTASSIUM CHLORIDE ORAL LIQUID 40 MEQ/30 ML CUP PO SCH ×3 (08:54→20:48)
--- NOTE | 2017-04-26 09:26 | P.CRDCN ---
History of Present Illness Consult date: 04/26/17 Chief complaint: Frequent falls History of present illness: This is a pleasant 71-year-old female patient who sees Dr. Penn in the office on regular basis with a past medical history significant for paroxysmal atrial fibrillation and status post ablation was performed recently 2016 as well as status post permanent pacemaker implantation presented to the hospital after she fell twice at home within 24 hours. The patient was seen recently by Dr. Penn on this past used a and at that point she was doing good from the cardiac standpoint. When she left the office and walking toward her car she felt without losing her consciousness. Yesterday she was at home and she was walking to check the garage door when she fell again without losing her consciousness. She states that she did not slip. She did not lose her consciousness. She did not have any symptoms of dizziness or lightheadedness, heart racing or fluttering, chest pain or chest discomfort. When she presented to the hospital she was severely hypokalemic with a potassium of 2.7. The patient was receiving Lasix at home. She underwent a computed tomography scan of the brain which came in to be unremarkable. The patient had multiple admissions in the past because of frequent falls. At certain points in the past she was found to have orthostatic hypotension. Currently she denies having any chest pain or chest discomfort or shortness of breath. The EKG showed sinus rhythm without any ischemic changes. At certain point in the past also the patient was told to take extra potassium but the patient is not very compliant with her medications in general. She is not taking care oral anticoagulation at home for the A. fib. Beside that she stated that she has been losing weight and she lost about 12 pounds within the last few months. She does have hypothyroidism and she is on thyroid replacement therapy. Past Medical History Past Medical History: Atrial Fibrillation, Chest Pain / Angina, Heart Failure, COPD, Fibromyalgia, GERD/Reflux, GI Bleed, Hypertension, Myocardial Infarction ( [place]), Osteoarthritis (OA), Rheumatoid Arthritis (RA), Thyroid Disorder Additional Past Medical History / Comment(s): hx Syncopy/Tachybrady syndrome. migraines, hx TIA, heart murmer, hx OF GASTRITIS/ulcers in stomach, hx esophageal ulcer and stricture, anemia, gets dizzy when she has to look up due to previous ear surgery, SHINGLE VACCINE 08-31-15 Last Myocardial Infarction Date:: 2002 History of Any Multi-Drug Resistant Organisms: None Reported Past Surgical History: Appendectomy, Cardiac Ablation, Cholecystectomy, Ear Surgery, Heart Catheterization, Hysterectomy, Orthopedic Surgery, Pacemaker, Tonsillectomy Additional Past Surgical History / Comment(s): ORIF LEFT LOWER ARM-HAS HARDWARE.EGD/ Numerous DILATATION OF esophagus. Pacemaker (ADAPTA) placed 07/07 at [facility]. Bilateral stapedectomies. surgery for hiatal hernia Past Anesthesia/Blood Transfusion Reactions: Family History of Problems w/ Anesthesia, Motion Sickness, Postoperative Nausea & Vomiting (PONV) Additional Past Anesthesia/Blood Transfusion Reaction / Comment(s): no problems with prior blood transfusion. BROTHER HAS PONV. Type of Cardiac Device: Permanent Pacemaker Device Placement Date:: 06/2016 Smoking Status: Never smoker - Past Family History Brother(s) Family Medical History: Cancer Additional Family Medical History / Comment(s): throat Father Family Medical History: Pneumonia Additional Family Medical History / Comment(s): EMPHYSEMA Mother Family Medical History: COPD, Rheumatoid Arthritis (RA) Additional Family Medical History / Comment(s): EMPHYSEMA Medications and Allergies Home Medications Medication Instructions Recorded Confirmed Type Gabapentin [Neurontin] 300 mg PO TID 02/15/16 04/25/17 History Magnesium Gluconate [Magonate] 500 mg PO HS 02/15/16 04/25/17 History SUMAtriptan SUCCINATE [Imitrex] 50 mg PO BID PRN 02/15/16 04/25/17 History Acetaminophen [Tylenol] 650 mg PO Q6H PRN 07/17/16 04/25/17 History Furosemide [Lasix] 40 mg PO BID 03/01/17 04/25/17 History Levothyroxine Sodium [Synthroid] 75 mcg PO DAILY 03/01/17 04/25/17 History Potassium Chloride [Klor-Con 20 meq PO TID 03/01/17 04/25/17 History Sprinkle] Sucralfate [Carafate] 1 gm PO BID #30 tablet 03/07/17 04/25/17 Rx Ondansetron Odt [Zofran Odt] 4 mg PO Q8HR PRN 04/25/17 04/25/17 History Pantoprazole Sodium [Protonix] 40 mg PO BID 04/25/17 04/25/17 History Allergies Allergy/AdvReac Type Severity Reaction Status Date / Time adhesive Allergy RASH FROM Verified 04/25/17 14:54 EKG STICKERS celecoxib [From Celebrex] Allergy Rash/Hives Verified 04/25/17 14:54 sertraline HCl [From Zoloft] Allergy Rash/Hives Verified 04/25/17 14:54 sulfamethoxazole Allergy Anaphylaxis Verified 04/25/17 14:54 [From Bactrim] trimethoprim [From Bactrim] Allergy Anaphylaxis Verified 04/25/17 14:54 Physical Exam Vitals: Vital Signs Temp Pulse Pulse Resp BP BP Pulse Ox 04/26/17 04:00 96.4 F L 80 20 115/58 95 04/26/17 00:00 82 20 04/25/17 20:00 96.7 F L 82 20 144/82 93 L 04/25/17 18:45 98.3 F 87 20 140/70 97 04/25/17 17:59 84 18 142/78 95 04/25/17 16:12 83 18 138/83 97 04/25/17 14:46 98.4 F 99 22 171/83 93 L Intake and Output 04/25/17 04/26/17 04/26/17 22:59 06:59 14:59 Output Total 200 Balance -200 Output: Urine 200 Other: Voiding Method Bedside Commode # Voids 0 1 Weight 49.1 kg - Constitutional General appearance: no acute distress - Respiratory Respiratory: bilateral: CTA - Cardiovascular Rhythm: regular Heart sounds: normal: S1, S2 Results 04/26/17 06:52 04/26/17 06:52 Cardiac Enzymes 04/25/17 04/26/17 Range/Units 15:54 06:52 AST 37 H 29 (14-36) U/L Coagulation 04/25/17 Range/Units 15:54 PT 10.3 (9.0-12.0) sec APTT 23.1 (22.0-30.0) sec CBC 04/25/17 04/26/17 Range/Units 15:54 06:52 WBC 8.9 4.6 (3.8-10.6) k/uL RBC 4.34 3.77 L (3.80-5.40) m/uL Hgb 12.0 10.5 L (11.4-16.0) gm/dL Hct 38.4 34.9 (34.0-46.0) % Plt Count 319 270 (150-450) k/uL Comprehensive Metabolic Panel 04/25/17 04/26/17 Range/Units 15:54 06:52 Sodium 140 142 (137-145) mmol/L Potassium 2.7 L* 3.6 (3.5-5.1) mmol/L Chloride 92 L 102 (98-107) mmol/L Carbon Dioxide 35 H 32 H (22-30) mmol/L BUN 14 8 (7-17) mg/dL Creatinine 1.08 H 1.01 (0.52-1.04) mg/dL Glucose 109 H 106 H (74-99) mg/dL Calcium 9.2 8.5 (8.4-10.2) mg/dL AST 37 H 29 (14-36) U/L ALT 53 H 44 (9-52) U/L Alkaline Phosphatase 99 83 (38-126) U/L Total Protein 7.5 6.1 L (6.3-8.2) g/dL Albumin 4.1 3.3 L (3.5-5.0) g/dL Current Medications Generic Name Dose Route Start Last Admin Trade Name Freq PRN Reason Stop Dose Admin Acetaminophen 650 mg 04/25/17 22:44 Tylenol Tab PO Q6H PRN Pain Gabapentin 300 mg 04/25/17 22:00 04/26/17 08:53 Neurontin PO 300 mg TID INOCENCIO Administration Heparin Sodium (Porcine) 5,000 unit 04/25/17 19:15 04/26/17 08:53 Heparin SQ 5,000 unit Q8HR INOCENCIO Administration Hydromorphone HCl 0.5 mg 04/25/17 19:08 04/26/17 06:05 Dilaudid IVP 0.5 mg Q3H PRN Administration Moderate Pain Potassium Chloride 40 meq/ 1,020 mls @ 80 mls/hr 04/25/17 22:45 04/26/17 03: 47 Sodium Chloride IV 80 mls/hr .[id number] INOCENCIO Administration Levothyroxine Sodium 75 mcg 04/26/17 06:30 04/26/17 05:17 Synthroid PO 75 mcg 0630 INOCENCIO Administration Magnesium Oxide 400 mg 04/25/17 21:00 04/25/17 21:17 Mag-Ox PO 400 mg HS INOCENCIO Administration Miscellaneous Information 1 each 04/25/17 23:42 Magnesium Per Protocol MISCELLANE DAILY PRN Per Protocol Protocol Naloxone HCl 0.2 mg 04/25/17 17:20 Narcan IV Q2M PRN Opioid Reversal Ondansetron HCl 4 mg 04/25/17 17:26 Zofran Odt PO Q8HR PRN Nausea Pantoprazole Sodium 40 mg 04/25/17 21:00 04/26/17 08:52 Protonix PO 40 mg BID INOCENCIO Administration Potassium Chloride 20 meq 04/25/17 22:00 04/26/17 08:54 Potassium Chloride Oral Liquid PO 20 meq TID INOCENCIO Administration Sucralfate 1 gm 04/25/17 21:00 04/26/17 08:53 Carafate PO 1 gm BID INOCENCIO Administration Sumatriptan Succinate 50 mg 04/25/17 22:44 Imitrex PO BID PRN Migraine Headache Intake and Output 04/25/17 04/26/17 04/26/17 22:59 06:59 14:59 Output Total 200 Balance -200 Output: Urine 200 Other: Voiding Method Bedside Commode # Voids 0 1 Weight 49.1 kg 04/26/17 06:52 04/26/17 06:52 Assessment and Plan Assessment: Assessment #1 frequent falls without losing consciousness #2 generalized weakness and fatigue #3 weight loss #4 severe hypokalemia #5 paroxysmal atrial fibrillation #6 status post permanent pacemaker implantation Plan #1 orthostatic blood pressure check #2 potassium replacement and check the magnesium #3 DC the Lasix at this point #4 check the pacemaker #5 check the TSH to rule out any hypothyroidism #6 follow-up with the patient #7 tilt table test. Thank you for allowing us participate in her care and we'll continue following up with the patient.
--- NOTE | 2017-04-26 12:45 | XR ---
EXAMINATION TYPE: XR Hip Complete LT DATE OF EXAM: 04/26/2017 COMPARISON: NONE HISTORY: Pain TECHNIQUE: 5 views submitted FINDINGS: There is no evidence of erosive change. Contrast within the bowel noted. There is arthropathy with diffuse osteopenia. IMPRESSION: 1. Question slight cortical deformity of the superior pubic ramus recommend CT of the pelvis to exclu de fracture..
[2017-04-26] MEDS: SUMAtriptan SUCCINATE 50 MG TAB PO PRN (13:06)
[2017-04-26] MEDS: METOPROLOL TARTRATE 25 MG TAB PO SCH ×2 (13:13→20:48)
[2017-04-26] MEDS ORDERED: RX INFO: IV CONTRAST WAS GIVEN 1 EACH MISC MISCELLANE PRN (14:54)
--- NOTE | 2017-04-26 16:36 | P.CNOR ---
History of Present Illness - [facility] Consult date: 04/26/17 Consult reason: low back pain (Low back and left hip pain), other History of present illness: This is a 71-year-old female admitted through the emergency department on 2017 with complaint of low back and left hip pain. The patient has had multiple falls recently. She has known multiple compression fractures to her thoracic and lumbar spine. She states that she was stepping into the house and fell, landing on her left side. She complains of pain that radiates from the low back around to the front and down into the groin. She states that she is unable to lift her left leg secondary to pain. She is unable to ambulate. We' re consulted for orthopedic evaluation of her left hip pain. Past Medical History Past Medical History: Atrial Fibrillation, Chest Pain / Angina, Heart Failure, COPD, Fibromyalgia, GERD/Reflux, GI Bleed, Hypertension, Myocardial Infarction ( [place]), Osteoarthritis (OA), Rheumatoid Arthritis (RA), Thyroid Disorder Additional Past Medical History / Comment(s): hx Syncopy/Tachybrady syndrome. migraines, hx TIA, heart murmer, hx OF GASTRITIS/ulcers in stomach, hx esophageal ulcer and stricture, anemia, gets dizzy when she has to look up due to previous ear surgery, SHINGLE VACCINE 08-31-15 Last Myocardial Infarction Date:: 2002 History of Any Multi-Drug Resistant Organisms: None Reported Past Surgical History: Appendectomy, Cardiac Ablation, Cholecystectomy, Ear Surgery, Heart Catheterization, Hysterectomy, Orthopedic Surgery, Pacemaker, Tonsillectomy Additional Past Surgical History / Comment(s): ORIF LEFT LOWER ARM-HAS HARDWARE.EGD/ Numerous DILATATION OF esophagus. Pacemaker (ADAPTA) placed 07/[address] [facility]. Bilateral stapedectomies. surgery for hiatal hernia Past Anesthesia/Blood Transfusion Reactions: Family History of Problems w/ Anesthesia, Motion Sickness, Postoperative Nausea & Vomiting (PONV) Additional Past Anesthesia/Blood Transfusion Reaction / Comm: no problems with prior blood transfusion. BROTHER HAS PONV. Type of Cardiac Device: Permanent Pacemaker Device Placement Date:: 06/2016 Smoking Status: Never smoker - Past Family History Brother(s) Family Medical History: Cancer Additional Family Medical History / Comment(s): throat Father Family Medical History: Pneumonia Additional Family Medical History / Comment(s): EMPHYSEMA Mother Family Medical History: COPD, Rheumatoid Arthritis (RA) Additional Family Medical History / Comment(s): EMPHYSEMA Medications and Allergies Home Medications Medication Instructions Recorded Confirmed Type Gabapentin [Neurontin] 300 mg PO TID 02/15/16 04/25/17 History Magnesium Gluconate [Magonate] 500 mg PO HS 02/15/16 04/25/17 History SUMAtriptan SUCCINATE [Imitrex] 50 mg PO BID PRN 02/15/16 04/25/17 History Acetaminophen [Tylenol] 650 mg PO Q6H PRN 07/17/16 04/25/17 History Furosemide [Lasix] 40 mg PO BID 03/01/17 04/25/17 History Levothyroxine Sodium [Synthroid] 75 mcg PO DAILY 03/01/17 04/25/17 History Potassium Chloride [Klor-Con 20 meq PO TID 03/01/17 04/25/17 History Sprinkle] Sucralfate [Carafate] 1 gm PO BID #30 tablet 03/07/17 04/25/17 Rx Ondansetron Odt [Zofran Odt] 4 mg PO Q8HR PRN 04/25/17 04/25/17 History Pantoprazole Sodium [Protonix] 40 mg PO BID 04/25/17 04/25/17 History Allergies Allergy/AdvReac Type Severity Reaction Status Date / Time adhesive Allergy RASH FROM Verified 04/25/17 14:54 EKG STICKERS celecoxib [From Celebrex] Allergy Rash/Hives Verified 04/25/17 14:54 sertraline HCl [From Zoloft] Allergy Rash/Hives Verified 04/25/17 14:54 sulfamethoxazole Allergy Anaphylaxis Verified 04/25/17 14:54 [From Bactrim] trimethoprim [From Bactrim] Allergy Anaphylaxis Verified 04/25/17 14:54 Physical Examination ThisiIs a pleasant 71-year-old female in no acute distress. She is alert and oriented 3. Her daughter is present at bedside. Exam of the head and neck is within normal limits. There is no pain with palpation about cervical spine or paraspinal musculature. Exam of the thoracic and lumbar spine reveal no obvious deformity. There is no pain with palpation about the thoracic spine. There is mild pain with palpation about the lower lumbar Spine and Sacral Region. Exam of the lower extremities reveals no obvious deformity. She has difficulty raising the left leg off the bed independently. There is mild pain with logroll of the left hip. There is no pain with logroll to the right hip. There is pain on palpation about the left SI joint and pain with compression of the pelvis. She is able to wiggle toes bilaterally. Neurovascular status to the lower extremities is grossly intact. Results X-rays of the left hip and pelvis reveal contrast in the colon. There is no obvious hip fracture noted. There is a cortical irregularity of the superior rami on the left. - Labs Labs: Abnormal Lab Results - Last 24 Hours (Table) 04/25/17 04/26/17 04/26/17 Range/Units 15:54 06:52 06:52 RBC 3.77 L (3.80-5.40) m/uL Hgb 10.5 L (11.4-16.0) gm/dL MCHC 30.0 L (31.0-37.0) g/dL Carbon Dioxide 32 H (22-30) mmol/L Glucose 106 H (74-99) mg/dL Magnesium 1.4 L 2.5 H (1.6-2.3) mg/dL Total Protein 6.1 L (6.3-8.2) g/dL Albumin 3.3 L (3.5-5.0) g/dL H & H 04/25/17 04/26/17 Range/Units 15:54 06:52 Hgb 12.0 10.5 L (11.4-16.0) gm/dL Hct 38.4 34.9 (34.0-46.0) % Coagulation 04/25/17 Range/Units 15:54 INR 1.1 (<1.2) Result Diagrams: 04/26/17 06:52 04/26/17 06:52 Assessment and Plan (1) Left hip pain Current Visit: Yes Status: Acute Code(s): M25.552 - PAIN IN LEFT HIP SNOMED Code(s): 28270997 (2) Bilateral leg weakness Current Visit: Yes Status: Acute Code(s): R29.898 - OTH SYMPTOMS AND SIGNS INVOLVING THE MUSCULOSKELETAL SYSTEM SNOMED Code(s): 1484426 Plan: The clinical and x-ray findings are discussed with the patient and her daughter. With her significant pain about the SI joint and left groin, I suspect possible pelvic fractures. It is recommended that she have a computed tomography scan for further evaluation. Computed tomography scan is ordered for evaluation of the pelvis and sacrum. She may be bed to chair transfer for now. We will follow up tomorrow with CT results.
[2017-04-26 16:41] VITALS: BMI 20.4
--- NOTE | 2017-04-26 18:50 | CT ---
EXAMINATION TYPE: CT pelvis wo con DATE OF EXAM: 04/26/2017 COMPARISON: 03/05/2017 HISTORY: Left sided hip and groin pain CT DLP: 472 mGycm Automated exposure control for dose reduction was used. FINDINGS: There is dense contrast in the large bowel. There is some degree of artifact as a result. There is no free fluid in the pelvis. Bladder distends smoothly. I see no pelvic mass. The bony pelvis is intact . The proximal femurs and hip joints appear intact. I see no pelvic mass. Uterus is absent. I see no evidence of a pelvic hernia. There is mild cortical buckling of the anterior left side of the sacrum consistent with a nondisplace d fracture. There is also a nondisplaced fracture of the anterior left acetabulum. There is slight co rtical buckling of the left inferior pubic ramus. There is osteopenia. IMPRESSION: THERE IS DENSE PERSISTENT CONTRAST IN THE LARGE BOWEL. THERE ARE NO RECENT BARIUM EXAM ON THE [address]. THIS SHOULD BE CORRELATED CLINICALLY. NO EVIDENCE OF A PELVIC MASS. THERE ARE MINIMAL CORTICAL BUCKLE FRACTURES INVOLVING THE LEFT SIDE OF THE SACRUM, LEFT ACETABULUM AN D LEFT INFERIOR PUBIC RAMUS AT THE ISSUE HIM THAT APPEAR NEW COMPARED TO THE OLD CT SCAN.
[2017-04-26] MEDS: HYDROcodone/APAP 5-325MG 1 EACH TAB PO PRN (19:08)
--- NOTE | 2017-04-26 20:29 | P.PN ---
Progress Note - Text Progress Note Date: 04/26/17 DATE OF SERVICE: 04/26/2017 PRESENTING COMPLAINT: Weakness and falls HISTORY OF PRESENT ILLNESS: 71-year-old female who sustained a fall at home at least once or twice a week and was found on the ground by family. Found to have rhabdomyolysis admitted for the same. INTERVAL HISTORY: 04/26/2017: Patient lying in bed somewhat tearful complaining of left hip pain. Exquisite tenderness to the left sacral area and wraps around the anterior portion of the left hip. States she's unable to walk or bear weight. Appetite is poor eating between 20 and 30% of her meals. Requires max assistance for transferring. Last BM prior to admission. REVIEW OF SYSTEMS: Done for constitutional ,cardiovascular, GI, pulmonary with relevant findings as above. CURRENT MEDICATIONS Gabapentin 300 mg by mouth 3 times a day, Synthroid 75 g by mouth daily, Lopressor 25 mg by mouth twice a day, Protonix 40 mg by mouth twice a day, Carafate 1 g by mouth twice a day, Imitrex 50 mg by mouth twice a day. PHYSICAL EXAM VITAL SIGNS: Temperature 96.7, pulse 78, respiratory rate 16, blood pressure 122/64, oxygen saturation 95% on room air. GENERAL APPEARANCE: Lying in bed, somewhat anxious appearing. EYES: Pupils equal. Conjunctiva normal. NECK: JVD not raised. Mass not palpable. RESPIRATORY: Respiratory effort normal. Lungs clear to auscultation. CARDIOVASCULAR: First and second sounds normal. No edema. ABDOMEN: Soft. Liver and spleen not palpable. No tenderness. No mass palpable. PSYCHIATRY: Alert and oriented x3. Mood and affect somewhat anxious appearing MUSCULOSKELETAL: Left sacral area tenderness, left straight leg raise 10 INVESTIGATIONS: LABS: Hemoglobin 10.5, magnesium 2.5 Left hip x-ray: Question of slight cortical deformity of the superior pubic rami recommends CT of the pelvis to exclude fracture. ASSESSMENT: -Multiple falls, in the differential is syncope, more likely hypokalemia due to mild dehydration as evidenced by increase creatinine -Intractable left hip pain, status post recent fall -Hypokalemia likely due to dehydration, improving -Chronic esophagitis -Peptic ulcer disease -Essential hypertension. -Primary osteoarthritis of multiple joints bilateral. -Depression not otherwise specified. -Hypothyroidism -Esophageal dysmotility -Anxiety not otherwise specified. PLAN: Await computed tomography scan of left hip to rule out possible fracture or other injury. Cardiology recommending orthostatic blood pressure checks, check pacemaker, Lasix discontinued. Check TSH to rule out hypothyroidism and possible tilt table testing. We'll additional input from orthopedics. PT OT evaluation pending left hip x-ray as well as computed tomography scan of the left hip. Plan of care discussed with the patient and family at the bedside they are in agreement. We'll follow closely. DIRECTOR OF KIDS statement: Patient was seen and examined by nurse practitioner Magdalena Armstrong and all elements of the case discussed with attending Dr. Wong
[2017-04-26] MEDS: SODIUM CHLORIDE 0.9% 1,000 ML IV SCH (20:46)
[2017-04-26] MEDS: MAGNESIUM OXIDE 400 MG TAB PO SCH (20:47)
[2017-04-26] MEDS: CARAFATE 1 GM/10 ML PO SCH (21:34)
--- NOTE | 2017-04-26 23:09 | PN ---
PROGRESS NOTE DATE OF SERVICE: 04/26/2017. ATTENDING NOTE: Patient seen and examined by me. Discussed with nurse practitioner, Patti. This patient presented with fall. She said she felt extremely weak in the legs and simply went down, never passed out. The patient's potassium was found to be 2.7, which likely is the cause. The patient has been barely eating at home and that would explain the reason for hypokalemia. The patient has had a fall and is having pain in the left hip area. The patient went for a hip x-ray earlier this afternoon that was ordered. There was a question about a fracture. Then patient underwent a pelvic CT scan early this evening, that is showing some minimal cortical buckle fractures involving the left side of the sacrum, left acetabulum, and left inferior pubic rami. ASSESSMENT: 1. Left sacrum, left acetabulum, left inferior pubic rami fracture. Orthopedics is following for the same. 2. Severe hypokalemia resulting in fall, now potassium is being replaced. PLAN: PT and OT have been consulted. Given her fragile nature, the patient will probably be managed conservatively. The patient also is getting [place] for pain control. Other medications are in place. MMODL / IJN: [id number] /
[2017-04-27] MEDS: ONDANSETRON ODT 4 MG TAB PO PRN ×3 (00:29→20:07)
[2017-04-27] MEDS: HYDROmorphone 1 MG/ML 1 ML SYRINGE IVP PRN ×3 (00:29→08:17)
[2017-04-27] MEDS: HYDROcodone/APAP 5-325MG 1 EACH TAB PO PRN ×5 (02:04→20:08)
[2017-04-27] MEDS: CARAFATE 1 GM/10 ML PO SCH ×4 (04:43→20:09)
[2017-04-27] MEDS: SODIUM CHLORIDE 0.9% 1,000 ML with POTASSIUM CHLORIDE 40 MEQ IV SCH ×2 (06:10)
[2017-04-27] MEDS: LEVOTHYROXINE 75 MCG TAB PO SCH (06:10)
[2017-04-27] MEDS: GABAPENTIN 300 MG CAP PO SCH ×3 (08:15→20:07)
[2017-04-27] MEDS: HEPARIN SODIUM,PORCINE 5,000 UNIT/ML 1 ML VIAL SQ SCH ×3 (08:15→23:35)
[2017-04-27] MEDS: POTASSIUM CHLORIDE ORAL LIQUID 40 MEQ/30 ML CUP PO SCH ×3 (08:16→20:18)
[2017-04-27] MEDS: PANTOPRAZOLE 40 MG TABLET PO SCH ×2 (08:17→20:07)
[2017-04-27] MEDS: METOPROLOL TARTRATE 25 MG TAB PO SCH (08:17)
[2017-04-27 08:21] LABS: Basophils % (A) 1 %; Eosinophils # (A) 0.3 k/uL (0-0.7); Eosinophils % (A) 6 %; HCT 33.5 % (34.0-46.0); HGB 9.8 gm/dL (11.4-16.0); Hypochromasia Marked; Lymphocytes # (A) 1.6 k/uL (1.0-4.8); Lymphocytes % (A) 34 %; MCH 27.4 pg (25.0-35.0); MCHC 29.3 g/dL (31.0-37.0); MCV 93.7 fL (80.0-100.0); Monocytes # (A) 0.3 k/uL (0-1.0); Monocytes % (A) 5 %; Neutrophils # (A) 2.4 k/uL (1.3-7.7); Neutrophils % (A) 51 %; Platelet Count 215 k/uL (150-450); RBC 3.57 m/uL (3.80-5.40); RDW 15.2 % (11.5-15.5); WBC 4.7 k/uL (3.8-10.6)
[2017-04-27 08:35] LABS: Anion Gap 5 mmol/L; Blood Urea Nitrogen 6 mg/dL (7-17); Calcium 8.9 mg/dL (8.4-10.2); Carbon Dioxide 27 mmol/L (22-30); Chloride 110 mmol/L (98-107); Glucose 112 mg/dL (74-99); Potassium 4.4 mmol/L (3.5-5.1); Sodium 142 mmol/L (137-145)
--- NOTE | 2017-04-27 11:23 | P.PN ---
Subjective Progress Note Date: 04/27/17 Principal diagnosis: Frequent falls. Pelvic fractures. This is a 71 yo female whom we are following regarding her multiple falls and left hip pain. Computed tomography scan was performed yesterday which revealed a left acetabular/superior rami fracture, inferior rami fracture and left sacral fracture. All fractures are nondisplaced and in good position. The patient's daughter is present at bedside. She reports no new complaints or concerns today. She is rating her pain 8/10. Objective - Vital Signs Vital signs: Vital Signs Temp 96.4 F L 04/27/17 08:00 Pulse 77 04/27/17 08:00 Resp 18 04/27/17 08:00 BP 126/64 04/27/17 08:00 Pulse Ox 100 04/27/17 08:00 Intake & Output 04/26/17 04/27/17 04/27/17 18:59 06:59 18:59 Output Total 250 400 Balance -250 -400 Weight 49.1 kg 50 kg Output: Urine 250 400 Other: # Voids 1 1 - Exam This is a 71-year-old female in no acute distress. She is alert and oriented 3. Exam of the lower extremities reveals no changes. She continues to have pain with motion of the left lower extremity. There is pain about the left sacrum and pain with compression of the pelvis. She has full foot and ankle motion without difficulty or pain. Neurovascular status to the lower extremity is intact. - Labs CBC & Chem 7: 04/27/17 07:55 04/27/17 07:55 Labs: Abnormal Lab Results - Last 24 Hours (Table) 04/27/17 04/27/17 Range/Units 07:55 07:55 RBC 3.57 L (3.80-5.40) m/uL Hgb 9.8 L (11.4-16.0) gm/dL Hct 33.5 L (34.0-46.0) % MCHC 29.3 L (31.0-37.0) g/dL Chloride 110 H (98-107) mmol/L BUN 6 L (7-17) mg/dL Glucose 112 H (74-99) mg/dL Assessment and Plan (1) Left hip pain Current Visit: Yes Status: Acute Code(s): M25.552 - PAIN IN LEFT HIP SNOMED Code(s): 57598548 (2) Bilateral leg weakness Current Visit: Yes Status: Acute Code(s): R29.898 - OT SYMPTOMS AND SIGNS INVOLVING THE MUSCULOSKELETAL SYSTEM SNOMED Code(s): 3868879 Plan: Call and x-ray findings/computed tomography scan findings are discussed with the patient and her daughter. We had a lengthy discussion about her use of narcotics and that we would like to decrease the number of medications that she is taking. We discussed the narcotics are putting her more at risk for falls. I recommend that she go to inpatient rehab. The patient currently would like to be discharged home. We will await for physical therapy evaluation to determine if she is safe to be discharged home. We will continue to follow throughout her stay and plan follow-up for about 3-4 weeks after discharge in the office.
[2017-04-27] MEDS: HYDROmorphone 2 MG/ML 1 ML SYRINGE IVP PRN ×4 (11:54→22:20)
--- NOTE | 2017-04-27 14:14 | CDI ---
Last Revision, March 2017 Documentation Clarification Form Date: 04/27/2017 2:05:00 PM From: Estefania Peterson RN Admit Date: 04/25/2017 5:20:00 PM Patient Name: Mavis Marquez Visit Number: [id number] ATTENTION: The Clinical Documentation Specialists (CDI) and [facility] Coding Staff appreciate your assistance in clarifying documentation. Please respond to the clarification below the line at the bottom and electronically sign. The CDI & [facility] Coding staff will review the response and follow-up if needed. Please note: Queries are made part of the Legal Health Record. If you have any questions, please contact the author of this message via ITS. Dr. Toro Simpson, History/Risk Factors:. A-Fib ,COPD, fibromyalgia, gi bleed, mi, ra, CHF Clinical Indicators: Echocardiogram Results: from 11/05/16 EF 60-65% Treatment: Lasix discontinue this visit Cardiology consult In your professional opinion, can you please clarify the acuity and type of CHF if known? Chronic Systolic Heart Failure: Chronic Diastolic Heart Failure: Chronic Systolic & Diastolic Heart Failure: Unable to Determine Other, please specify Please continue to document in your progress notes and discharge summary in order to capture severity of illness and risk of mortality. Include clinical findings that support your diagnosis. MTDD
--- NOTE | 2017-04-27 15:17 | P.PN ---
Subjective Progress Note Date: 04/27/17 Principal diagnosis: Weakness and falls This is a pleasant 71-year-old female patient who sees Dr. Penn in the office on regular basis with a past medical history significant for paroxysmal atrial fibrillation and status post ablation was performed recently 2016 as well as status post permanent pacemaker implantation presented to the hospital after she fell twice at home within 24 hours. The patient was seen recently by Dr. Penn on this past used a and at that point she was doing good from the cardiac standpoint. When she left the office and walking toward her car she felt without losing her consciousness. Yesterday she was at home and she was walking to check the garage door when she fell again without losing her consciousness. She states that she did not slip. She did not lose her consciousness. She did not have any symptoms of dizziness or lightheadedness, heart racing or fluttering, chest pain or chest discomfort. When she presented to the hospital she was severely hypokalemic with a potassium of 2.7. The patient was receiving Lasix at home. She underwent a computed tomography scan of the brain which came in to be unremarkable. The patient had multiple admissions in the past because of frequent falls. At certain points in the past she was found to have orthostatic hypotension. Currently she denies having any chest pain or chest discomfort or shortness of breath. The EKG showed sinus rhythm without any ischemic changes. At certain point in the past also the patient was told to take extra potassium but the patient is not very compliant with her medications in general. She is not taking care oral anticoagulation at home for the A. fib. Beside that she stated that she has been losing weight and she lost about 12 pounds within the last few months. She does have hypothyroidism and she is on thyroid replacement therapy. 04/27/2017 Patient seen and examined this morning, feeling much better overall. Minimal cortical buckle fractures involving the left side of the sacrum , left acetabulum and left inferior pubic ramus are noted. Patient refused her tilt table test yesterday, orthostatics were not obtained because patient states she was too weak to stand up. Let pressure 134/60, heart rate in the 70s. Hemoglobin 9.8 today, potassium 4.4, BUN 6, creatinine 0.7. Arrangements are being made for the patient to transfer to [facility] rehab on Sunday. Objective - Vital Signs Vital signs: Vital Signs Temp 97.1 F L 04/27/17 12:00 Pulse 76 04/27/17 12:00 Resp 16 04/27/17 12:00 BP 134/60 04/27/17 12:00 Pulse Ox 97 04/27/17 12:00 Intake & Output 04/26/17 04/27/17 04/27/17 18:59 06:59 18:59 Output Total 250 400 300 Balance -250 -400 -300 Weight 49.1 kg 50 kg Output: Urine 250 400 300 Other: # Voids 1 1 2 - Exam PHYSICAL EXAMINATION: HEENT: Head is atraumatic, normocephalic. Pupils equal, round. Neck is supple. There is no elevated jugular venous pressure. HEART EXAMINATION: Heart S1, S2 normal. No murmur or gallop heard. CHEST EXAMINATION: Lungs are clear to auscultation and precussion. No chest wall tenderness is noted on palpation or with deep breathing. ABDOMEN: Soft, nontender. Bowel sounds are heard. No organomegaly noted. EXTREMITIES: 2+ peripheral pulses with no evidence of peripheral edema and no calf tenderness noted. NEUROLOGIC patient is awake, alert and oriented -3. . - Labs CBC & Chem 7: 04/27/17 07:55 04/27/17 07:55 Labs: Abnormal Lab Results - Last 24 Hours (Table) 04/27/17 04/27/17 Range/Units 07:55 07:55 RBC 3.57 L (3.80-5.40) m/uL Hgb 9.8 L (11.4-16.0) gm/dL Hct 33.5 L (34.0-46.0) % MCHC 29.3 L (31.0-37.0) g/dL Chloride 110 H (98-107) mmol/L BUN 6 L (7-17) mg/dL Glucose 112 H (74-99) mg/dL Assessment and Plan Plan: Assessment #1 frequent falls without losing consciousness #2 generalized weakness and fatigue #3 weight loss #4 severe hypokalemia #5 paroxysmal atrial fibrillation #6 status post permanent pacemaker implantation Plan Patient is stable from cardiology's perspective, arrangements are being made for her to transfer to [facility] on Sunday for rehab. We will make her a follow-up appointment to see Dr. Penn in the office post discharge. DNP note has been reviewed, I agree with a documented findings and plan of care. Patient was seen and examined.
--- NOTE | 2017-04-27 15:17 | P.PN ---
Progress Note - Text Progress Note Date: 04/27/17 DATE OF SERVICE: 04/27/2017 PRESENTING COMPLAINT: Weakness and falls HISTORY OF PRESENT ILLNESS: 71-year-old female who sustained a fall at home at least once or twice a week and was found on the ground by family. Found to have rhabdomyolysis admitted for the same. INTERVAL HISTORY: 04/27/2017: Patient lying in bed, tearful complaining of left hip pain. Has many multiple questions about pain medication when due etc. added heating pad to patient's pain management regimen as well as which he had orthopedics regarding any additions to regimen or possible consultation to pain management. Unable to tolerate her diet has some nausea ate about 20% of her breakfast. Has refused to work with physical therapy, patient is supposed to be going to a rehab center for continued strengthening. Last BM prior to admission. 04/26/2017: Patient lying in bed somewhat tearful complaining of left hip pain. Exquisite tenderness to the left sacral area and wraps around the anterior portion of the left hip. States she's unable to walk or bear weight. Appetite is poor eating between 20 and 30% of her meals. Requires max assistance for transferring. Last BM prior to admission. REVIEW OF SYSTEMS: Done for constitutional ,cardiovascular, GI, pulmonary with relevant findings as above. CURRENT MEDICATIONS Gabapentin 300 mg by mouth 3 times a day, Synthroid 75 g by mouth daily, Lopressor 25 mg by mouth twice a day, Protonix 40 mg by mouth twice a day, Carafate 1 g by mouth twice a day, Imitrex 50 mg by mouth twice a day, senna twice a day, Dulcolax suppository at at bedtime. PHYSICAL EXAM VITAL SIGNS: Temperature 96.4, pulse 77, respiratory rate 18, blood pressure 126/64, oxygen saturation 100% on room air. GENERAL APPEARANCE: Lying in bed, somewhat anxious appearing. EYES: Pupils equal. Conjunctiva normal. NECK: JVD not raised. Mass not palpable. RESPIRATORY: Respiratory effort normal. Lungs clear to auscultation. CARDIOVASCULAR: First and second sounds normal. No edema. ABDOMEN: Soft. Liver and spleen not palpable. No tenderness. No mass palpable. PSYCHIATRY: Alert and oriented x3. Mood and affect somewhat anxious appearing MUSCULOSKELETAL: Left sacral area tenderness, left straight leg raise 10 INVESTIGATIONS: LABS: Hemoglobin 10.5, magnesium 2.5 CT scan of pelvis without contrast: Dense persistent contrast in the large bowel , minimal cortical buckle fractures involving the left side of the sacrum left acetabulum and left inferior pubic rami which appeared new compared to the old computed tomography scan. ASSESSMENT: -Multiple falls, resulting in left sacral, left acetabular left inferior pubic rami fracture. -Severe Hypokalemia likely due to dehydration, improving -Chronic esophagitis -Peptic ulcer disease -Essential hypertension. -Primary osteoarthritis of multiple joints bilateral. -Depression not otherwise specified. -Hypothyroidism -Esophageal dysmotility -Anxiety not otherwise specified. PLAN: Patient agreeable this afternoon to work with physical and occupational therapy. Has had many multiple complaints about pain orthopedics has deferred to add pain management for now. Orthopedics additionally recommending to go to inpatient rehab for gait training and strengthening. Will likely occur on Sunday. Plan of care was discussed at the bedside with the patient and the daughter, they are agreeable. We'll follow closely. FOREST BOTANY INSTRUCTOR statement: Patient was seen and examined by nurse practitioner Magdalena Armstrong and all elements of the case discussed with attending
--- NOTE | 2017-04-27 16:04 | PN ---
PROGRESS NOTE DATE OF SERVICE: 04/27/17. ATTENDING NOTE: Patient seen and examined by me. I discussed with my nurse practitioner, Patti. Patient admitted with falls, felt to be from hypokalemia. The patient has found to have fractures, nonsurgical intervention per Orthopedics. Having some pain. Patient not eating much. PHYSICAL EXAMINATION: Temperature 97.1, pulse 73, respirations 16, blood pressure 134/60, pulse ox 97% on room air. Lying in bed, tired-appearing. LUNGS: Slightly decreased breath sounds. CARDIOVASCULAR: First and second sounds normal. Tenderness in the left hip area. INVESTIGATIONS: White count 4.7, hemoglobin 9.8, potassium 4.4. ASSESSMENT: Fracture on the left hip area, hypokalemia corrected. I had a lengthy discussion with the patient and daughter. The patient is getting some Dilaudid and Blodgett. She said pain is not well controlled. Concern was giving heavy doses of Blodgett. Orthopedics was called. At this point they do not want the Pain Management consult. I did speak to the daughter and the patient at length about that we have to balance between patient getting too sedated with the heavy pain medications given her frailty. I also talked about the patient's diet, oral intake. Also was discussed that the patient may not be able to remain independent anymore and given her generalized failing of health, will have case management social worker looking into rehab. That will probably happen on Sunday. Per patient's daughter the patient is not to take Lopressor and does not want to take it and patient is refusing the same. Hence, this will be discontinued. Total time spent today was about 40 minutes with about 25 minutes of discussion including the nurse, the patient and daughter. MMODL / IJN: [id number] /
[2017-04-27] MEDS: SODIUM CHLORIDE 0.9% 1,000 ML IV SCH (18:00)
[2017-04-27] MEDS: SENNOSIDES 8.6 MG TAB PO SCH (20:07)
[2017-04-27] MEDS: MAGNESIUM OXIDE 400 MG TAB PO SCH (20:08)
[2017-04-28] MEDS: HYDROcodone/APAP 5-325MG 1 EACH TAB PO PRN ×4 (01:15→18:12)
[2017-04-28] MEDS: HYDROmorphone 2 MG/ML 1 ML SYRINGE IVP PRN ×7 (02:38→23:19)
[2017-04-28] MEDS: CARAFATE 1 GM/10 ML PO SCH ×4 (05:08→20:57)
[2017-04-28] MEDS: LEVOTHYROXINE 75 MCG TAB PO SCH (06:27)
[2017-04-28 07:30] LABS: Basophils % (A) 1 %; Eosinophils # (A) 0.4 k/uL (0-0.7); Eosinophils % (A) 8 %; HCT 33.1 % (34.0-46.0); HGB 9.8 gm/dL (11.4-16.0); Hypochromasia Marked; Lymphocytes % (A) 37 %; MCH 27.5 pg (25.0-35.0); MCHC 29.6 g/dL (31.0-37.0); MCV 92.6 fL (80.0-100.0); Mean Platelet Volume 8.1; Monocytes # (A) 0.3 k/uL (0-1.0); Monocytes % (A) 5 %; Neutrophils # (A) 2.5 k/uL (1.3-7.7); Neutrophils % (A) 46 %; Platelet Count 244 k/uL (150-450); RBC 3.58 m/uL (3.80-5.40); RDW 15.3 % (11.5-15.5); WBC 5.4 k/uL (3.8-10.6)
[2017-04-28 07:58] LABS: Anion Gap 5 mmol/L; Blood Urea Nitrogen 5 mg/dL (7-17); Calcium 9.3 mg/dL (8.4-10.2); Carbon Dioxide 30 mmol/L (22-30); Chloride 105 mmol/L (98-107); Glucose 100 mg/dL (74-99); Potassium 4.5 mmol/L (3.5-5.1); Sodium 140 mmol/L (137-145)
[2017-04-28] MEDS: POTASSIUM CHLORIDE ORAL LIQUID 40 MEQ/30 ML CUP PO SCH ×4 (08:05→20:56)
[2017-04-28] MEDS: PANTOPRAZOLE 40 MG TABLET PO SCH ×2 (08:05→20:56)
[2017-04-28] MEDS: GABAPENTIN 300 MG CAP PO SCH ×3 (08:05→20:56)
[2017-04-28] MEDS: HEPARIN SODIUM,PORCINE 5,000 UNIT/ML 1 ML VIAL SQ SCH ×3 (08:05→23:19)
[2017-04-28] MEDS: SENNOSIDES 8.6 MG TAB PO SCH ×2 (08:07→20:56)
[2017-04-28] MEDS: ONDANSETRON ODT 4 MG TAB PO PRN ×2 (08:14→18:33)
[2017-04-28] MEDS ORDERED: MAGNESIUM HYDROXIDE 2,400 MG/10 ML CUP PO PRN (08:26)
--- NOTE | 2017-04-28 08:28 | P.PN ---
Subjective Progress Note Date: 04/28/17 Principal diagnosis: Pubic rami and sacral fractures The patient is a 71-year-old female whom we've been following for left hip pain. The patient did have a CT of the pelvis 2 days ago that revealed a left acetabular/superior rami fracture, inferior rami fracture, and left sacral fracture. We are treating the fractures nonoperatively. Today, the patient states that she is in severe pain. Nursing staff states that she has not had a bowel movement in over one week. No other new complaints at this time. Objective - Vital Signs Vital signs: Vital Signs Temp 97.7 F 04/28/17 07:59 Pulse 89 04/28/17 07:59 Resp 16 04/28/17 07:59 BP 103/49 04/28/17 07:59 Pulse Ox 96 04/28/17 07:59 Intake & Output 04/27/17 04/28/17 04/28/17 18:59 06:59 18:59 Intake Total 236 Output Total 300 600 Balance -64 -600 Weight 48 kg Intake: Oral 236 Output: Urine 300 600 Other: # Voids 2 1 - Exam This is a 71-year-old female who is in no acute distress. She is alert and oriented 3. Exam of the left lower extremity reveals no changes. She continues to have pain with range of motion of the left lower extremity. There is pain upon palpation to the left sacrum. She is unable to actively move her left foot and ankle due to severe pain. She is able to wiggle her toes. She is full foot and ankle range of motion on the right side. Bilateral calves are soft and nontender. Neurological and circulatory status is intact. - Labs CBC & Chem 7: 04/28/17 07:06 04/28/17 07:06 Labs: Abnormal Lab Results - Last 24 Hours (Table) 04/27/17 04/27/17 04/28/17 Range/Units 07:55 07:55 07:06 RBC 3.57 L 3.58 L (3.80-5.40) m/uL Hgb 9.8 L 9.8 L (11.4-16.0) gm/dL Hct 33.5 L 33.1 L (34.0-46.0) % MCHC 29.3 L 29.6 L (31.0-37.0) g/dL Chloride 110 H (98-107) mmol/L BUN 6 L (7-17) mg/dL Glucose 112 H (74-99) mg/dL 04/28/17 Range/Units 07:06 RBC (3.80-5.40) m/uL Hgb (11.4-16.0) gm/dL Hct (34.0-46.0) % MCHC (31.0-37.0) g/dL Chloride (98-107) mmol/L BUN 5 L (7-17) mg/dL Glucose 100 H (74-99) mg/dL Assessment and Plan (1) Bilateral leg weakness Current Visit: Yes Status: Acute Code(s): R29.898 - OTH SYMPTOMS AND SIGNS INVOLVING THE MUSCULOSKELETAL SYSTEM SNOMED Code(s): 1206057 (2) Frequent falls Current Visit: Yes Status: Acute Code(s): R29.6 - REPEATED FALLS SNOMED Code(s): 436333747 Plan: The clinical and CT findings were discussed with the patient. Continue pain control. Continue physical therapy. Toe-touch weightbearing to the left leg. Patient will most likely need placement to skilled rehab upon discharge. The patient is thinking she will go to [facility] on Sunday. We will continue to follow patient closely while she is in the hospital.
--- NOTE | 2017-04-28 14:44 | PN ---
PROGRESS NOTE Mrs. Marquez is 71-year-old female with known history of paroxysmal fibrillation, history of a permanent pacemaker implantation, who presented after a fall and complaining of left-sided discomfort. She denies any chest pain. Her breathing has been stable. She denies any dizziness or palpitations. The patient was seen in our office recently and at that time, she said she was taking Eliquis as prescribed, but on asking her again today she said she has not been taking it and she does not want to take it. She has not been compliant with her medical regimen in the past. At this point, she continues to be on levothyroxine, Protonix, potassium 20 mEq 3 times a day. PHYSICAL EXAMINATION: Blood pressure 103/49 with a heart in the 80s. LUNGS: Clear. HEART: Regular rhythm S1, S2. No S3. No rub. ABDOMEN: Soft, nontender. EXTREMITIES: No edema. LAB DATA: Potassium 4.5. Her potassium on presentation was 2.7. Her magnesium was 1.4. It was 2.5 earlier. Her hemoglobin is 9.8. IMPRESSION: 1. History of paroxysmal atrial fibrillation. Remains in sinus mechanism. 2. Status post permanent pacemaker implantation. 3. Episode of fall. 4. Generalized weakness. 5. Hypokalemia, corrected. 6. Noncompliance. RECOMMENDATION: We will continue present medical therapy. The patient has not been compliant for treatment in the past. At this time, I would not recommend any changes. She declines anticoagulation. We will see her on an as-needed basis. Please feel free to call us for any questions. MMODL / IJN: [id number] /
[2017-04-28] MEDS: BISACODYL 10 MG SUPP RECTAL SCH ×2 (16:18→20:55)
--- NOTE | 2017-04-28 16:18 | P.PN ---
Progress Note - Text Progress Note Date: 04/28/17 DATE OF SERVICE: 04/28/2017 PRESENTING COMPLAINT: Weakness and falls HISTORY OF PRESENT ILLNESS: 71-year-old female who sustained a fall at home at least once or twice a week and was found on the ground by family. Found to have rhabdomyolysis admitted for the same. INTERVAL HISTORY: 04/28/2017: Patient lying in bed resting quietly appears comfortable. States physical therapy she performed and yesterday helped quite a bit. She is very agreeable now to participating in physical therapy and is anxious to go to rehabilitation. Ate about 30% of her breakfast, up to the bathroom/bedside commode with assistance. And walker. Very small BM yesterday currently on cathartics to assist. 04/27/2017: Patient lying in bed, tearful complaining of left hip pain. Has many multiple questions about pain medication when due etc. added heating pad to patient's pain management regimen as well as which he had orthopedics regarding any additions to regimen or possible consultation to pain management. Unable to tolerate her diet has some nausea ate about 20% of her breakfast. Has refused to work with physical therapy, patient is supposed to be going to a rehab center for continued strengthening. Last BM prior to admission. 04/26/2017: Patient lying in bed somewhat tearful complaining of left hip pain. Exquisite tenderness to the left sacral area and wraps around the anterior portion of the left hip. States she's unable to walk or bear weight. Appetite is poor eating between 20 and 30% of her meals. Requires max assistance for transferring. Last BM prior to admission. REVIEW OF SYSTEMS: Done for constitutional ,cardiovascular, GI, pulmonary with relevant findings as above. CURRENT MEDICATIONS Gabapentin 300 mg by mouth 3 times a day, Synthroid 75 g by mouth daily, Lopressor 25 mg by mouth twice a day, Protonix 40 mg by mouth twice a day, Carafate 1 g by mouth twice a day, Imitrex 50 mg by mouth twice a day, senna twice a day, Dulcolax suppository at at bedtime. PHYSICAL EXAM VITAL SIGNS: Temperature 97.7, pulse 89, respiratory rate 16, blood pressure 103/49, oxygen saturation 96% on room air. GENERAL APPEARANCE: Lying in bed, somewhat anxious appearing. EYES: Pupils equal. Conjunctiva normal. NECK: JVD not raised. Mass not palpable. RESPIRATORY: Respiratory effort normal. Lungs clear to auscultation. CARDIOVASCULAR: First and second sounds normal. No edema. ABDOMEN: Soft. Liver and spleen not palpable. No tenderness. No mass palpable. PSYCHIATRY: Alert and oriented x3. Mood and affect somewhat anxious appearing MUSCULOSKELETAL: Left sacral area tenderness, left straight leg raise 20 INVESTIGATIONS: LABS: Hemoglobin 9.8, BMP grossly unremarkable. ASSESSMENT: -Multiple falls, resulting in left sacral, left acetabular left inferior pubic rami fracture slow to respond -Severe Hypokalemia likely due to dehydration, improving -Chronic esophagitis -Peptic ulcer disease -Essential hypertension. -Primary osteoarthritis of multiple joints bilateral. -Depression not otherwise specified. -Hypothyroidism -Esophageal dysmotility -Anxiety not otherwise specified. PLAN: Continue work with physical and occupational therapy while she is here. Increase diet and activity as patient can tolerate. Discharge planning for [facility]. Plan of care discussed with the patient the bedside she is agreeable. We'll follow closely. PRODUCT EXAMINER statement: Patient was seen and examined by nurse practitioner Magdalena Armstrong and all elements of the case discussed with attending
[2017-04-28] MEDS: SODIUM CHLORIDE 0.9% 1,000 ML IV SCH (16:36)
[2017-04-28] MEDS: SUMAtriptan SUCCINATE 50 MG TAB PO PRN (17:41)
--- NOTE | 2017-04-28 18:47 | PN ---
PROGRESS NOTE DATE OF SERVICE: 04/28/17. ATTENDING NOTE: Patient seen and examined by me. I discussed with nurse practitioner, Patti. The patient's pain is much better controlled. Did work with therapy. She says she is eating a bit better. Awaiting transfer to [facility]. EXAMINATION: Temp 97, pulse 89, respiratory rate 16, blood pressure 103/49, pulse ox 96% on room air. Lying in bed, more comfortable. Lungs fair entry. Cardiovascular first and second sounds normal. INVESTIGATIONS: White count 9.8, potassium 4.5. ASSESSMENT: 1. Left sacral acetabulum inferior pubic rami fracture. 2. Fall secondary to hypokalemia from decreased oral intake. PLAN: Continue with therapy. Awaiting transfer to [facility]. MMJUANL / IJN: [id number] /
[2017-04-28] MEDS: ALPRAZolam 0.25 MG TAB PO PRN (19:05)
[2017-04-28] MEDS: MAGNESIUM OXIDE 400 MG TAB PO SCH (20:56)
[2017-04-28 22:33] VITALS: RESP 16
[2017-04-29] MEDS: HYDROcodone/APAP 5-325MG 1 EACH TAB PO PRN ×3 (00:32→11:24)
[2017-04-29] MEDS: CARAFATE 1 GM/10 ML PO SCH ×4 (04:48→20:30)
[2017-04-29] MEDS: HYDROmorphone 2 MG/ML 1 ML SYRINGE IVP PRN ×2 (06:50→10:00)
[2017-04-29 07:19] LABS: Anion Gap 6 mmol/L; Blood Urea Nitrogen 6 mg/dL (7-17); Calcium 9.4 mg/dL (8.4-10.2); Carbon Dioxide 27 mmol/L (22-30); Chloride 105 mmol/L (98-107); Glucose 96 mg/dL (74-99); Magnesium 1.9 mg/dL (1.6-2.3); Potassium 4.4 mmol/L (3.5-5.1); Sodium 138 mmol/L (137-145)
[2017-04-29] MEDS: ALPRAZolam 0.25 MG TAB PO PRN ×2 (07:39→20:34)
[2017-04-29] MEDS: POTASSIUM CHLORIDE ORAL LIQUID 40 MEQ/30 ML CUP PO SCH ×3 (07:39→21:51)
[2017-04-29] MEDS: SENNOSIDES 8.6 MG TAB PO SCH ×2 (07:40→20:29)
[2017-04-29] MEDS: PANTOPRAZOLE 40 MG TABLET PO SCH ×2 (07:40→20:29)
[2017-04-29] MEDS: LEVOTHYROXINE 75 MCG TAB PO SCH (07:40)
[2017-04-29] MEDS: GABAPENTIN 300 MG CAP PO SCH ×3 (07:40→21:52)
[2017-04-29] MEDS: HEPARIN SODIUM,PORCINE 5,000 UNIT/ML 1 ML VIAL SQ SCH ×3 (07:42→20:29)
--- NOTE | 2017-04-29 09:26 | P.PN ---
Subjective Progress Note Date: 04/29/17 Principal diagnosis: Pubic rami and sacral fractures The patient is a 71-year-old female whom we've been following for left hip pain. The patient did have a CT of the pelvis that revealed a left acetabular/ superior rami fracture, inferior rami fracture, and left sacral fracture. We are treating the fractures nonoperatively. Today, the patient states her pain has improved slightly. She has had a bowel movement. No other new complaints at this time. Objective - Vital Signs Vital signs: Vital Signs Temp 98.1 F 04/29/17 07:00 Pulse 85 04/29/17 07:00 Resp 16 04/29/17 07:00 BP 148/80 04/29/17 07:00 Pulse Ox 95 04/29/17 07:00 Intake & Output 04/28/17 04/29/17 04/29/17 18:59 06:59 18:59 Intake Total 577 220 Balance 577 220 Intake: IV 160 Sodium Chloride 0.9% 1, 160 000 ml @ 20 mls/hr IV . Q24H INOCENCIO Rx#:[id number] Intake, IV Titration 220 Amount Sodium Chloride 0.9% 1, 220 000 ml @ 20 mls/hr IV . Q24H INOCENCIO Rx#:[id number] Oral 417 Other: Voiding Method Bedside Commode - Exam This is a 71-year-old female who is in no acute distress. She is alert and oriented 3. Exam of the left lower extremity reveals no changes. She continues to have pain with range of motion of the left lower extremity. There is pain upon palpation to the left sacrum. She is unable to actively move her left foot and ankle due to severe pain. She is able to wiggle her toes. She is full foot and ankle range of motion on the right side. Bilateral calves are soft and nontender. Neurological and circulatory status is intact. - Labs CBC & Chem 7: 04/28/17 07:06 04/29/17 06:31 Labs: Abnormal Lab Results - Last 24 Hours (Table) 04/29/17 Range/Units 06:31 BUN 6 L (7-17) mg/dL Assessment and Plan (1) Bilateral leg weakness Current Visit: Yes Status: Acute Code(s): R29.898 - OTH SYMPTOMS AND SIGNS INVOLVING THE MUSCULOSKELETAL SYSTEM SNOMED Code(s): 9878071 (2) Frequent falls Current Visit: Yes Status: Acute Code(s): R29.6 - REPEATED FALLS SNOMED Code(s): 523249309 Plan: The clinical and CT findings were discussed with the patient. Continue pain control. Continue physical therapy. Toe-touch weightbearing to the left leg. Patient will most likely need placement to skilled rehab upon discharge. The patient is thinking she will go to [facility] on Sunday. We will continue to follow patient closely while she is in the hospital.
[2017-04-29] MEDS: ONDANSETRON ODT 4 MG TAB PO PRN (10:00)
[2017-04-29] MEDS ORDERED: HYDROcodone/APAP 7.5-325MG 1 EACH TAB PO PRN (13:24)
[2017-04-29] MEDS ORDERED: BACLOFEN 10 MG TAB PO PRN (16:03)
--- NOTE | 2017-04-29 17:30 | PN ---
PROGRESS NOTE DATE OF SERVICE: 04/29/17. ATTENDING NOTE: Patient seen and examined by me. I discussed with nurse practitioner, Patti. Patient is sitting up in bed. Daughter is at the bedside. Pain is better controlled. Eating better. PHYSICAL EXAMINATION: Temperature 97.8, pulse 87, respiratory rate 16. Blood pressure 123/65, pulse ox 96% on room air. Lungs fair entry. Cardiovascular first and second sounds normal. Psych AO x3. INVESTIGATIONS: White count 5.4, hemoglobin 9.8, potassium 4.4. ASSESSMENT: 1. Hypokalemia corrected. 2. Fracture on the left hip area. 3. Pain control. PLAN: Discussed at length with the patient and daughter. At this point agreed to stop the Dilaudid and the [place] because the patient can become dependent on the same. We will try Ultram 50 mg, will also use baclofen p.r.n. for muscle spasm. Use Xanax only on a p.r.n. basis. We will use a heating pad. The patient is working with physical therapy. Looking to go to the [facility] tomorrow. CHRISTINA / MYRTLEN: [id number] /
[2017-04-29] MEDS: traMADol 50 MG TAB PO SCH ×2 (17:51→21:51)
[2017-04-29] MEDS: SODIUM CHLORIDE 0.9% 1,000 ML IV SCH (18:43)
--- NOTE | 2017-04-29 18:44 | P.PN ---
Progress Note - Text Progress Note Date: 04/29/17 DATE OF SERVICE: 04/29/2017 PRESENTING COMPLAINT: Weakness and falls HISTORY OF PRESENT ILLNESS: 71-year-old female who sustained a fall at home at least once or twice a week and was found on the ground by family. Found to have rhabdomyolysis admitted for the same. INTERVAL HISTORY: 04/29/2017: Patient lying in bed, appears anxious yet comfortable. Had an episode of anxiety late yesterday and the day patient received a single dose of Xanax and this helped a great deal. Daughter at the bedside patient and daughter have many multiple questions about pain medications and receiving Xanax. Patient and daughter was informed about the use of hydromorphone IV, explained to both that rehab facilities will not provide this type of pain medication, explained some of the alternatives available. Additionally Discussion was had with attending physician Dr. Wong and nurse practitioner regarding these concerns. Appetite is slowly improving eating between 30 and 40% of her meals, up with assistance to the bedside commode and a walker. Last BM 04/29/2017. 04/28/2017: Patient lying in bed resting quietly appears comfortable. States physical therapy she performed and yesterday helped quite a bit. She is very agreeable now to participating in physical therapy and is anxious to go to rehabilitation. Ate about 30% of her breakfast, up to the bathroom/bedside commode with assistance. And walker. Very small BM yesterday currently on cathartics to assist. 04/27/2017: Patient lying in bed, tearful complaining of left hip pain. Has many multiple questions about pain medication when due etc. added heating pad to patient's pain management regimen as well as which he had orthopedics regarding any additions to regimen or possible consultation to pain management. Unable to tolerate her diet has some nausea ate about 20% of her breakfast. Has refused to work with physical therapy, patient is supposed to be going to a rehab center for continued strengthening. Last BM prior to admission. 04/26/2017: Patient lying in bed somewhat tearful complaining of left hip pain. Exquisite tenderness to the left sacral area and wraps around the anterior portion of the left hip. States she's unable to walk or bear weight. Appetite is poor eating between 20 and 30% of her meals. Requires max assistance for transferring. Last BM prior to admission. REVIEW OF SYSTEMS: Done for constitutional ,cardiovascular, GI, pulmonary with relevant findings as above. CURRENT MEDICATIONS Tylenol, Xanax, baclofen, Gabapentin 300 mg by mouth 3 times a day, Synthroid 75 g by mouth daily, Lopressor 25 mg by mouth twice a day, Protonix 40 mg by mouth twice a day, Carafate 1 g by mouth twice a day, Imitrex 50 mg by mouth twice a day, Ultram 50 mg by mouth 4 times a day. senna twice a day, Dulcolax suppository at at bedtime. PHYSICAL EXAM VITAL SIGNS: temperature 98.1, pulse 85, respirations 16, blood pressure 140/80, oxygen saturation 95% on room air. GENERAL APPEARANCE: Lying in bed, somewhat anxious and tearful appearing. EYES: Pupils equal. Conjunctiva normal. NECK: JVD not raised. Mass not palpable. RESPIRATORY: Respiratory effort normal. Lungs clear to auscultation. CARDIOVASCULAR: First and second sounds normal. No edema. ABDOMEN: Soft. Liver and spleen not palpable. No tenderness. No mass palpable. PSYCHIATRY: Alert and oriented x3. Mood and affect somewhat anxious appearing MUSCULOSKELETAL: Left sacral area tenderness, left straight leg raise 20 INVESTIGATIONS: LABS: BMP grossly unremarkable ASSESSMENT: -Multiple falls, resulting in left sacral, left acetabular left inferior pubic rami fracture improving -Severe Hypokalemia likely due to dehydration, improving -Chronic esophagitis -Peptic ulcer disease -Essential hypertension. -Primary osteoarthritis of multiple joints bilateral. -Depression not otherwise specified. -Hypothyroidism -Esophageal dysmotility -Anxiety not otherwise specified. PLAN: Continue work with physical and occupational therapy while she is here. Pain medications adjusted, hydromorphone discontinued. Xanax added for anxiety. Increase diet and activity as patient can tolerate. Discharge planning for [facility]. Plan of care discussed with the patient the bedside she is agreeable. We'll follow closely. 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
[2017-04-29] MEDS: BISACODYL 10 MG SUPP RECTAL SCH (20:28)
[2017-04-29] MEDS: MAGNESIUM OXIDE 400 MG TAB PO SCH (21:52)
[2017-04-30] MEDS: HEPARIN SODIUM,PORCINE 5,000 UNIT/ML 1 ML VIAL SQ SCH ×2 (00:17→09:00)
[2017-04-30] MEDS: CARAFATE 1 GM/10 ML PO SCH ×3 (03:04→16:51)
[2017-04-30] MEDS: ALPRAZolam 0.25 MG TAB PO PRN (06:50)
[2017-04-30] MEDS: LEVOTHYROXINE 75 MCG TAB PO SCH (06:50)
[2017-04-30] MEDS: traMADol 50 MG TAB PO SCH ×2 (08:58→13:19)
[2017-04-30] MEDS: PANTOPRAZOLE 40 MG TABLET PO SCH ×2 (09:00→09:02)
[2017-04-30] MEDS: GABAPENTIN 300 MG CAP PO SCH (09:00)
[2017-04-30] MEDS: POTASSIUM CHLORIDE ORAL LIQUID 40 MEQ/30 ML CUP PO SCH (09:00)
[2017-04-30] MEDS: SENNOSIDES 8.6 MG TAB PO SCH ×2 (09:00→09:02)
[2017-04-30] MEDS: SODIUM CHLORIDE 0.9% 1,000 ML IV SCH (11:17)
[2017-04-30] MEDS ORDERED: PSYLLIUM HUSK 100% 6 GM PACKET PO SCH (12:00)
[2017-04-30] MEDS: SUMAtriptan SUCCINATE 50 MG TAB PO PRN (12:02)
--- NOTE | 2017-04-30 12:31 | P.PN ---
Subjective Progress Note Date: 04/30/17 Principal diagnosis: Frequent falls. Pelvic fractures. This is a 71 yo female whom we are following regarding her multiple falls and left hip pain. Computed tomography scan was performed which revealed a left acetabular/superior rami fracture, inferior rami fracture and left sacral fracture. All fractures are nondisplaced and in good position. She reports no new complaints or concerns today. She continues to complain of for pain control. She was recently placed on Ultram and taken off of the [place] secondary to constipation and increased sedation. She is rating her pain 8/10. Objective - Vital Signs Vital signs: Vital Signs Temp 98.0 F 04/30/17 07:00 Pulse 76 04/30/17 07:00 Resp 16 04/30/17 07:00 BP 122/68 04/30/17 07:00 Pulse Ox 98 04/30/17 07:00 Intake & Output 04/29/17 04/30/17 04/30/17 18:59 06:59 18:59 Intake Total 640 Output Total 601 Balance 640 -601 Intake: IV 160 Sodium Chloride 0.9% 1, 160 000 ml @ 20 mls/hr IV . Q24H [facility] Rx#:[id number] Oral 480 Output: Urine 600 Stool 1 Other: Voiding Method Bedside Commode Bedside Commode # Voids 1 2 # Bowel Movements 1 - Exam This is a 71-year-old female in no acute distress. She is alert and oriented 3. Exam of the lower extremities reveals no changes. She continues to have pain with motion of the left lower extremity. There is pain about the left sacrum and pain with compression of the pelvis. She refuses to move her foot and ankle today stating that it is too painful. Neurovascular status to the lower extremity is intact. - Labs CBC & Chem 7: 04/28/17 07:06 04/29/17 06:31 Assessment and Plan (1) Left hip pain Current Visit: Yes Status: Acute Code(s): M25.552 - PAIN IN LEFT HIP SNOMED Code(s): 70184261 (2) Bilateral leg weakness Current Visit: Yes Status: Acute Code(s): R29.898 - OTH SYMPTOMS AND SIGNS INVOLVING THE MUSCULOSKELETAL SYSTEM SNOMED Code(s): 3864330 Plan: The clinical findings are discussed with the patient. She may be transferred to inpatient rehab today if cleared medically. We will see her back in 3 weeks for re-x-ray and evaluation. Her pain will be managed by Dr. Wong.
[2017-04-30] MEDS ORDERED: HYDROcodone/APAP 7.5-325MG 1 EACH TAB PO PRN (14:11)
[2017-04-30 15:07] VITALS: BP 127/63; PULSE 77; TEMP 98.5
--- NOTE | 2017-04-30 15:07 | DS ---
DISCHARGE SUMMARY DATE OF ADMISSION: 04/25/2017 DATE OF DISCHARGE: 04/30/2017 FINAL DIAGNOSES: 1. Fall leading to fracture of the left sacrum, left acetabulum, left inferior pubic rami. 2. Severe hypokalemia leading to myopathy. 3. Chronic esophagitis. 4. Peptic ulcer disease, chronic. 5. Essential hypertension. 6. Primary osteoarthritis multiple joints, bilateral. 7. Depression, not otherwise specified. 8. Hypothyroidism. 9. Esophageal dysmotility. 10.Anxiety, not otherwise specified. 11.Normocytic anemia cause unknown, chronic. HOSPITAL COURSE: This patient who was not eating much at home, became hypokalemic, had a potassium 2.7, resulting in falls with the fractures as described above. This was confirmed by CT scan and x-rays. The patient was seen by Orthopedics, Dr. Gregg, and conservative management was done. Patient has had a problem with pain medication in the past. Hence, a little bit conservative about the pain medications. I did talk to her at length about getting dependent on medications like [place] and Xanax. Did try some Ultram, but she really wants the [place]. I did explain to her several times again and again that to be very careful about getting dependent on this. This needs to be further evaluated when she gets to the rehab. Patient is tolerating a diet, better. Potassium is corrected. Patient also seen by Cardiology, no further input. CONSULTATION: 1. Dr. Gregg from Orthopedics. 2. Dr. Simpson from Cardiology. PHYSICAL EXAMINATION: Lungs are clear. CARDIOVASCULAR: First and second sounds normal. ABDOMEN: Soft, nontender. Limited range of motion of the left hip. The patient's hemoglobin is 9.8. DISCHARGE MEDICATIONS: 1. Magnesium 400 mg p.o. q.h.s. 2. Imitrex 50 mg p.o. b.i.d. p.r.n. 3. Tylenol 650 mg q.6 p.r.n. 4. Synthroid 75 mcg a day. 5. Potassium 20 mEq p.o. t.i.d. 6. Carafate 1 g p.o. b.i.d. 7. Zofran 4 mg p.o. q.8 p.r.n. 8. Protonix 40 mg b.i.d. 9. Xanax 0.25 p.o. b.i.d. p.r.n. for anxiety. 10.Baclofen 5 mg p.o. t.i.d. for muscle spasm. 11.Lasix 40 mg p.o. daily. 12.Neurontin 300 mg p.o. t.i.d. 13.[place] 7.5 q.4 p.r.n., 20 tablets for now. 14.Milk of magnesia 2400 p.o. daily p.r.n. 15.Metamucil 6 g p.o. at noon. DISPOSITION: [facility]. Patient is to follow up with Dr. Wray in 3 weeks. Follow up with Dr. Wray after discharge from the [facility]. Discussion, disposition, discharge planning more than 35 minutes. MMODL / IJN: [id number] /
--- NOTE | 2017-05-02 10:28 | CDI ---
Last Revision, March 2017 Documentation Clarification Form Date: 04/27/2017 2:05:00 PM From: Estefania Peterson Admit Date: 04/25/2017 5:20:00 PM Patient Name: Mavis Marquez Visit Number: [id number] ATTENTION: The Clinical Documentation Specialists (CDI) and [facility] Coding Staff appreciate your assistance in clarifying documentation. Please respond to the clarification below the line at the bottom and electronically sign. The CDI & [facility] Coding staff will review the response and follow-up if needed. Please note: Queries are made part of the Legal Health Record. If you have any questions, please contact the author of this message via ITS. Dr. Toro Simpson, (second request please document on query) History/Risk Factors:. A-Fib ,COPD, fibromyalgia, gi bleed, mi, ra, CHF Clinical Indicators: Echocardiogram Results: from 11/05/16 EF 60-65% Treatment: Lasix discontinue this visit Cardiology consult In your professional opinion, can you please clarify the acuity and type of CHF if known? Chronic Systolic Heart Failure: Chronic Diastolic Heart Failure: Chronic Systolic & Diastolic Heart Failure: Unable to Determine Other, please specify Please continue to document in your progress notes and discharge summary in order to capture severity of illness and risk of mortality. Include clinical findings that support your diagnosis. MTDD
--- NOTE | 2017-05-07 08:56 | CDI ---
Last Revision, March 2017 Documentation Clarification Form Date: 04/27/2017 2:05:00 PM From: Estefania Peterson Admit Date: 04/25/2017 5:20:00 PM Patient Name: Mavis Marquez Visit Number: [id number] ATTENTION: The Clinical Documentation Specialists (CDI) and [facility] Coding Staff appreciate your assistance in clarifying documentation. Please respond to the clarification below the line at the bottom and electronically sign. The CDI & [facility] Coding staff will review the response and follow-up if needed. Please note: Queries are made part of the Legal Health Record. If you have any questions, please contact the author of this message via ITS. Dr. Toro Simpson, (third request) History/Risk Factors:. A-Fib ,COPD, fibromyalgia, gi bleed, mi, ra, CHF Clinical Indicators: Echocardiogram Results: from 11/05/16 EF 60-65% Treatment: Lasix discontinue this visit Cardiology consult In your professional opinion, can you please clarify the acuity and type of CHF if known? Chronic Systolic Heart Failure: Chronic Diastolic Heart Failure: Chronic Systolic & Diastolic Heart Failure: Unable to Determine Other, please specify Please continue to document in your progress notes and discharge summary in order to capture severity of illness and risk of mortality. Include clinical findings that support your diagnosis. MTDD
== END 2017-04-30 17:04 | DRG 640 ==
LOC: EC 14:39 → 6SEL 17:20 → 3SUR 04-28 20:20
PROVIDERS: ADMIT Hospitalist; ATTEND Hospitalist
DX: E87.6 Hypokalemia (principal); S32.402A Unspecified fracture of left acetabulum, initial encounter for closed fracture; E86.0 Dehydration; I48.0 Paroxysmal atrial fibrillation; I11.0 Hypertensive heart disease with heart failure; M62.82 Rhabdomyolysis; S32.10XA Unspecified fracture of sacrum, initial encounter for closed fracture; I50.9 Heart failure, unspecified; S32.592A Other specified fracture of left pubis, initial encounter for closed fracture; D64.9 Anemia, unspecified; E03.9 Hypothyroidism, unspecified; F32.9 Major depressive disorder, single episode, unspecified; F41.9 Anxiety disorder, unspecified; K59.00 Constipation, unspecified; K22.4 Dyskinesia of esophagus; K27.7 Chronic peptic ulcer, site unspecified, without hemorrhage or perforation; J44.9 Chronic obstructive pulmonary disease, unspecified; K21.0 Gastro-esophageal reflux disease with esophagitis; R29.6 Repeated falls; M06.9 Rheumatoid arthritis, unspecified; M19.91 Primary osteoarthritis, unspecified site; M79.7 Fibromyalgia; G43.909 Migraine, unspecified, not intractable, without status migrainosus; I25.2 Old myocardial infarction; Z79.899 Other long term (current) drug therapy; Z91.19 Patient's noncompliance with other medical treatment and regimen; Z95.0 Presence of cardiac pacemaker; Z87.11 Personal history of peptic ulcer disease; Z87.19 Personal history of other diseases of the digestive system; Z86.73 Personal history of transient ischemic attack (TIA), and cerebral infarction without residual deficits; Z90.49 Acquired absence of other specified parts of digestive tract; Z90.710 Acquired absence of both cervix and uterus; Z88.2 Allergy status to sulfonamides; Z88.8 Allergy status to other drugs, medicaments and biological substances; Z91.048 Other nonmedicinal substance allergy status; W19.XXXA Unspecified fall, initial encounter; Z91.81 History of falling; Y92.009 Unspecified place in unspecified non-institutional (private) residence as the place of occurrence of the external cause
CPT/HCPCS: 36415; 70450; 72131; 72192; 73502; 80048; 80053; 83735; 85025; 85610; 85730; 93005; 96361; 96365; 96366; 96375; 96376; 99285

== ENCOUNTER 2017-10-17 05:20 | Emergency (ER) | payer MEDICARE, OTHER ==
--- NOTE | 2017-10-17 12:26 | XR ---
Frontal chest x-ray HISTORY: Shortness of breath, chest pain Single frontal view of the chest Comparison to prior chest x-ray March 05, 2017 Patient is rotated, there is a spinal curvature. Vertebral plasty change noted in the midthoracic spi ne. There is likely kyphosis present. Pacemaker is present with the leads in the right atrium and ning tricle, generator in the left pectoral region. Cardiac mediastinal silhouette, pulmonary vascularity and olga are stable. Prominent lung volume suggests underlying COPD. Interstitium mildly prominent. N o evident airspace disease, pneumothorax, or pleural effusion. IMPRESSION: No acute cardiopulmonary disease.
[2017-10-17 12:57] LABS: Partial Thromboplastin Time 22.6 sec (22.0-30.0); Prothrombin Time 9.7 sec (9.0-12.0)
[2017-10-17 12:58] LABS: Basophils # (A) 0.1 k/uL (0-0.2); Basophils % (A) 1 %; Eosinophils # (A) 0.4 k/uL (0-0.7); Eosinophils % (A) 6 %; Hypochromasia Slight; Lymphocytes # (A) 2.1 k/uL (1.0-4.8); Lymphocytes % (A) 36 %; MCH 28.5 pg (25.0-35.0); MCHC 31.4 g/dL (31.0-37.0); MCV 90.6 fL (80.0-100.0); Mean Platelet Volume 6.7; Monocytes # (A) 0.4 k/uL (0-1.0); Monocytes % (A) 7 %; Neutrophils # (A) 2.7 k/uL (1.3-7.7); Neutrophils % (A) 46 %; Platelet Count 378 k/uL (150-450); RBC 3.86 m/uL (3.80-5.40); RDW 15.6 % (11.5-15.5); WBC 5.9 k/uL (3.8-10.6)
[2017-10-17 14:46] LABS: Creatine Kinase 49 U/L (30-135); Troponin I <0.012 ng/mL (0.000-0.034)
[2017-10-17 15:00] LABS: ALT 24 U/L (9-52); AST 24 U/L (14-36); Albumin 3.3 g/dL (3.5-5.0); Alkaline Phosphatase 94 U/L (38-126); Anion Gap 8 mmol/L; Blood Urea Nitrogen 12 mg/dL (7-17); Calcium 8.4 mg/dL (8.4-10.2); Carbon Dioxide 31 mmol/L (22-30); Chloride 101 mmol/L (98-107); Glucose 84 mg/dL (74-99); Lipase 132 U/L (23-300); Magnesium 1.5 mg/dL (1.6-2.3); Phosphorus 3.3 mg/dL (2.5-4.5); Potassium 3.7 mmol/L (3.5-5.1); Sodium 140 mmol/L (137-145); Total Bilirubin 0.1 mg/dL (0.2-1.3); Total Protein 5.8 g/dL (6.3-8.2)
--- NOTE | 2017-10-17 15:25 | XR ---
EXAMINATION TYPE: Chest X-ray 2 Views DATE OF EXAM: 10/17/2017 CLINICAL HISTORY: Chest and jaw pain today. TECHNIQUE: Frontal and lateral views of the chest are obtained. COMPARISON: Chest x-ray March 05, 2017.. FINDINGS: There is chronic emphysematous change without suspicious focal air space opacity, pleural effusion, or pneumothorax seen. The cardiac silhouette size is enlarged with dual lead pacemaker red emonstrated. The osseous structures remain demineralized there are chronic compression fractures in the mid thoracic spine with vertebroplasty performed at most severe level. Overlying EKG wires are s een. Cholecystectomy clips are noted on lateral view. IMPRESSION: Chronic changes and cardiomegaly without acute pulmonary process.
== END 2017-10-17 11:00 | disposition home or self-care (01) ==
LOC: EC 05:20
DX: R07.9 Chest pain, unspecified (principal); F41.9 Anxiety disorder, unspecified; Z88.2 Allergy status to sulfonamides; Z88.8 Allergy status to other drugs, medicaments and biological substances; Z88.5 Allergy status to narcotic agent
CPT/HCPCS: 36415; 71045; 71046; 80053; 82550; 82553; 83690; 83735; 84100; 84484; 85025; 85610; 85730; 93005; 96361; 96374; 99285

== ENCOUNTER → 2017-11-14 | Outpatient (CLI) | payer MEDICARE, OTHER ==
[2017-11-14 15:04] LABS: Albumin 4.2 g/dL (3.5-5.0); Calcium 9.2 mg/dL (8.4-10.2); Total Bilirubin 0.5 mg/dL (0.2-1.3); Total Protein 7.1 g/dL (6.3-8.2)
[2017-11-14 19:15] LABS: Parathyroid Hormone Intact 74.5 pg/mL (14.0-72.0)
== END | disposition home or self-care (01) ==
LOC: LABWHC1 14:25
PROVIDERS: ATTEND Internal Medicine Endocrinology, Diabetes & Metabolism
DX: M81.0 Age-related osteoporosis without current pathological fracture (principal)
CPT/HCPCS: 36415; 80053; 82306; 82523; 83970; 84443

== ENCOUNTER → 2017-11-23 | Outpatient (CLI) | payer MEDICARE, OTHER ==
[2017-11-23 14:28] LABS: Albumin 4.3 g/dL (3.5-5.0); Potassium 3.6 mmol/L (3.5-5.1); Total Bilirubin 0.2 mg/dL (0.2-1.3); Total Protein 7.3 g/dL (6.3-8.2)
== END | disposition home or self-care (01) ==
LOC: LABWHC1 13:35
PROVIDERS: ATTEND Internal Medicine Endocrinology, Diabetes & Metabolism
DX: M80.88XA Other osteoporosis with current pathological fracture, vertebra(e), initial encounter for fracture (principal)
CPT/HCPCS: 36415; 80053; 83970; 84443

== ENCOUNTER 2018-01-14 06:31 | Emergency (ER) | payer MEDICARE, OTHER ==
[2018-01-14 06:44] VITALS: RESP 18
[2018-01-14 07:09] LABS: Glucose,Whole Blood 113 mg/dL (75-99)
--- NOTE | 2018-01-14 07:31 | CT ---
EXAMINATION TYPE: CT brain cspine wo con DATE OF EXAM: 01/14/2018 COMPARISON: CT brain April 25, 2017. CT cervical spine July 17, 2016. HISTORY: fall injury with headache and neck pain. CT DLP: 1232.7 mGycm. Automated Exposure Control for Dose Reduction was Utilized. TECHNIQUE: CT scan of the head and cervical spine are performed without contrast. FINDINGS: There is no acute intracranial hemorrhage or midline shift identified. There is ventricul ar and sulcal prominence consistent with diffuse age-related cerebral atrophy. Low-attenuation in the periventricular white matter is present. The globes are intact and the visualized sinuses are clear. The calvarium is intact. There is small acute right parietal scalp hematoma axial image 39. Cervical spine is visualized in its entirety from C1 through upper thoracic levels and demonstrates l oss of normal cervical curvature without evidence of acute fracture or dislocation. Prevertebral sof t tissue appears within normal limits. The C1-C2 articulation is within normal limits on the coronal images. Osseous structures are demineralized. Vertebral body heights are maintained. There is moderate disc s pace narrowing at C5-C6 and C6-C7 levels with posterior spur disc complexes effacing anterior thecal sac redemonstrated. Review of axial images show some uncovertebral facet degenerative changes bilater ally contributing to multilevel neural foraminal narrowing noted right C3-C4 level on axial image 37 and left C5-C6 level on axial image 48 and left C6-C7 level on axial image 54. Spur disc complexes ar e confirmed effacing anterior thecal sac at C5-C6 and C6-C7 levels on axial images. There is moderate biapical pleural/parenchymal scarring redemonstrated bilaterally. There is mild to moderate calcifie d plaque bilateral carotid bulb level. There is partial visualization of pacemaker on localizer. IMPRESSION: 1. There is no acute fracture or dislocation evident in the cervical spine. Loss of normal cervical c urvature with multilevel degenerative changes redemonstrated 2. No acute intracranial hemorrhage or midline shift is seen. Small right parietal acute scalp hemato ma.
[2018-01-14] MEDS: MORPHINE SULFATE 4 MG/ML SYRINGE IVP STA ×2 (07:42→09:54)
--- NOTE | 2018-01-14 08:57 | XR ---
EXAMINATION TYPE: XR pelvis AP view DATE OF EXAM: 01/14/2018 CLINICAL HISTORY: Fall injury with pain. TECHNIQUE: A single AP view of the pelvis is obtained. COMPARISON: None. FINDINGS: There is no acute fracture/dislocation evident in the pelvis. There is moderate axial join t space loss in both hips. Sacroiliac joints are secured by overlying bowel gas and soft tissue relat ed to patient's body habitus The overlying soft tissue appears unremarkable. IMPRESSION: There is no acute displaced fracture in the pelvis clearly seen.
--- NOTE | 2018-01-14 08:59 | ED ---
General Adult HPI - General Chief complaint: Fall Stated complaint: Fall Time Seen by Provider: 01/14/18 07:19 Source: patient, EMS, RN notes reviewed, old records reviewed Mode of arrival: EMS Limitations: no limitations - History of Present Illness Initial comments: This is a 9-year-old female the ER for evaluation. Patient presents today for evaluation regarding fall. Patient mechanical fall. Patient follows again mechanical in nature she loses balance often has a history of multiple falls. She did hit her head on a table with no loss of consciousness. Patient denies current headache has mild bleeding from site. This all complaining of some neck pain and some back pain which is also chronic in nature - Related Data Home Medications Medication Instructions Recorded Confirmed SUMAtriptan SUCCINATE [Imitrex] 50 mg PO BID PRN 02/15/16 01/14/18 Levothyroxine Sodium [Synthroid] 75 mcg PO DAILY 03/01/17 01/14/18 Potassium Chloride [Klor-Con 40 meq PO BID 03/01/17 01/14/18 Sprinkle] Pantoprazole Sodium [Protonix] 40 mg PO DAILY 04/25/17 01/14/18 Ergocalciferol (Vitamin D2) 50,000 unit PO TH 01/14/18 01/14/18 [Vitamin D2] FLUoxetine HCL [PROzac] 20 mg PO DAILY 01/14/18 01/14/18 Furosemide [Lasix] 40 mg PO BID 01/14/18 01/14/18 Magnesium Oxide [Mag-Ox] 400 mg PO DAILY 01/14/18 01/14/18 Methocarbamol [Robaxin] 750 mg PO TID 01/14/18 01/14/18 Sucralfate [Carafate] 1 gm PO ACHS 01/14/18 01/14/18 Previous Rx's Medication Instructions Recorded Hydrocodone/Acetaminophen [[place] 1 each PO Q4HR PRN #14 tab 01/16/18 5-325] Ibuprofen [Motrin] 400 mg PO Q8HR PRN #21 tab 01/16/18 Allergies Allergy/AdvReac Type Severity Reaction Status Date / Time adhesive Allergy RASH FROM Verified 01/14/18 07:42 EKG STICKERS celecoxib [From Celebrex] Allergy Rash/Hives Verified 01/14/18 07:42 sertraline HCl [From Zoloft] Allergy Rash/Hives Verified 01/14/18 07:42 sulfamethoxazole Allergy Anaphylaxis Verified 01/14/18 07:42 [From Bactrim] trimethoprim [From Bactrim] Allergy Anaphylaxis Verified 01/14/18 07:42 Review of Systems ROS Statement: Those systems with pertinent positive or pertinent negative responses have been documented in the HPI. ROS Other: All systems not noted in ROS Statement are negative. Past Medical History Past Medical History: Atrial Fibrillation, Chest Pain / Angina, Heart Failure, COPD, Fibromyalgia, GERD/Reflux, GI Bleed, Hypertension, Myocardial Infarction ( MD), Osteoarthritis (OA), Rheumatoid Arthritis (RA), Thyroid Disorder Additional Past Medical History / Comment(s): hx Syncopy/Tachybrady syndrome. migraines, hx TIA, heart murmer, hx OF GASTRITIS/ulcers in stomach, hx esophageal ulcer and stricture, anemia, gets dizzy when she has to look up due to previous ear surgery, SHINGLE VACCINE 08-31-15 Last Myocardial Infarction Date:: 2002 History of Any Multi-Drug Resistant Organisms: None Reported Past Surgical History: Appendectomy, Cardiac Ablation, Cholecystectomy, Ear Surgery, Heart Catheterization, Hysterectomy, Orthopedic Surgery, Pacemaker, Tonsillectomy Additional Past Surgical History / Comment(s): ORIF LEFT LOWER ARM-HAS HARDWARE.EGD/ Numerous DILATATION OF esophagus. Pacemaker (ADAPTA) placed 07/07 at [facility]. Bilateral stapedectomies. surgery for hiatal hernia Past Anesthesia/Blood Transfusion Reactions: Family History of Problems w/ Anesthesia, Motion Sickness, Postoperative Nausea & Vomiting (PONV) Additional Past Anesthesia/Blood Transfusion Reaction / Comment(s): no problems with prior blood transfusion. BROTHER HAS PONV. Type of Cardiac Device: Permanent Pacemaker Device Placement Date:: 06/2016 Past Psychological History: Anxiety, Depression Smoking Status: Never smoker Past Alcohol Use History: None Reported Past Drug Use History: None Reported - Past Family History Brother(s) Family Medical History: Cancer Additional Family Medical History / Comment(s): throat Father Family Medical History: Pneumonia Additional Family Medical History / Comment(s): EMPHYSEMA Mother Family Medical History: COPD, Rheumatoid Arthritis (RA) Additional Family Medical History / Comment(s): EMPHYSEMA General Exam - General Exam Comments Initial Comments: Patient's pain is improved Limitations: no limitations General appearance: alert, in no apparent distress Head exam: Present: normocephalic, normal inspection. Absent: atraumatic (2 cm right occipital laceration) Eye exam: Present: normal appearance, PERRL, EOMI. Absent: scleral icterus, conjunctival injection, periorbital swelling ENT exam: Present: normal exam, mucous membranes moist Neck exam: Present: normal inspection. Absent: tenderness, meningismus, lymphadenopathy Respiratory exam: Present: normal lung sounds bilaterally. Absent: respiratory distress, wheezes, rales, rhonchi, stridor Cardiovascular Exam: Present: regular rate, normal rhythm, normal heart sounds. Absent: systolic murmur, diastolic murmur, rubs, gallop, clicks GI/Abdominal exam: Present: soft, normal bowel sounds. Absent: distended, tenderness, guarding, rebound, rigid Extremities exam: Present: normal inspection, full ROM, normal capillary refill. Absent: tenderness, pedal edema, joint swelling, calf tenderness Back exam: Present: normal inspection Neurological exam: Present: alert, oriented X3, CN II-XII intact Psychiatric exam: Present: normal affect, normal mood Skin exam: Present: warm, dry, intact, normal color. Absent: rash Course Vital Signs 01/14/18 01/14/18 01/14/18 06:38 07:46 10:31 Temperature 98.0 F Pulse Rate 84 80 82 Respiratory 18 18 18 Rate Blood Pressure 140/76 125/66 122/63 O2 Sat by Pulse 95 96 98 Oximetry Procedures - Laceration Laceration #1 Consent Obtained: verbal consent Indication: laceration Site: scalp Size (cm): 2 Description: linear Type of Sutures: other (ty) Technique: other (ty) Medical Decision Making - Medical Decision Making 9-year-old female the ER status post fall, positive laceration of some stay in the head with head injury. Laceration is repaired here in the ER, patient can be discharged home - Lab Data Lab Results 01/14/18 Range/Units 06:37 POC Glucose (mg/dL) 113 H (75-99) mg/dL POC Glu Correctional Program Officer ID Khushi Hansen - Radiology Data Radiology results: report reviewed (CT brain C-spine x-ray of chest and pelvis as well as spine is negative for acute disease), image reviewed Disposition Clinical Impression: Chronic back pain, Frequent falls, Head injury Disposition: HOME SELF-CARE Condition: Good Instructions: Fall Prevention for Older Adults (ED) Is patient prescribed a controlled substance at d/c from ED?: No Referrals: Elroy Wray DO [Primary Care Provider] - 1-2 days
--- NOTE | 2018-01-14 09:01 | XR ---
EXAMINATION TYPE: XR chest 1V DATE OF EXAM: 01/14/2018 COMPARISON: Prior chest x-ray dated 10/17/2017 HISTORY: Trauma and pain TECHNIQUE: Single frontal view of the chest is obtained. FINDINGS: Patient is rotated. Heart size is likely stable accounting for differences in technique. P acemaker is present in the left pectoral region, there are leads in the right atrium and ventricle. N o evident pneumothorax or pleural effusion. Interstitium is prominent. Vertebral plasty changes are a gain noted in the midthoracic spine. Prominent lung volumes suggest underlying COPD. Bone mineralizat ion is reduced which may limit sensitivity. There are overlying cardiac leads. IMPRESSION: Rotated exam. No acute abnormalities evident.
--- NOTE | 2018-01-14 09:03 | XR ---
Lumbar spine HISTORY: Trauma and pain 3 views of the lumbar spine correlated to prior exam 07/17/2016 No interval change. There is a spinal curvature. Bone mineralization is reduced. Surgical clips prese nt in the right upper quadrant. Superior endplate of L4 is depressed as on prior exam. Alignment is s table. Sclerosis present in the posterior elements compatible with facet arthropathy. IMPRESSION: Chronic superior endplate fracture L4. Osteopenia, facet arthropathy. Spinal curvature. P ostop changes. Follow-up as indicated.
--- NOTE | 2018-01-14 09:06 | XR ---
Thoracic spine HISTORY: Trauma and pain 3 views of the thoracic spine correlated to prior exam 04/20/2013 Frontal view is rotated. Low bone mineralization could limit sensitivity. Thoracic vertebral bodies s how vertebral plasty change in the interval at the midthoracic level, multiple additional compression deformities are stable. IMPRESSION: No acute fracture or subluxation is evident. Follow-up as indicated.
[2018-01-14 10:33] VITALS: BP 122/63; PULSE 82; TEMP 98
== END 2018-01-14 10:31 | disposition home or self-care (01) ==
LOC: EC 06:31
DX: M54.9 Dorsalgia, unspecified (principal); G89.29 Other chronic pain; S01.01XA Laceration without foreign body of scalp, initial encounter; M54.2 Cervicalgia; I48.91 Unspecified atrial fibrillation; I11.0 Hypertensive heart disease with heart failure; I50.9 Heart failure, unspecified; J44.9 Chronic obstructive pulmonary disease, unspecified; M79.7 Fibromyalgia; I25.2 Old myocardial infarction; M06.9 Rheumatoid arthritis, unspecified; E07.9 Disorder of thyroid, unspecified; Z79.899 Other long term (current) drug therapy; Z88.2 Allergy status to sulfonamides; Z91.048 Other nonmedicinal substance allergy status; Z88.6 Allergy status to analgesic agent; Z86.73 Personal history of transient ischemic attack (TIA), and cerebral infarction without residual deficits; Z95.0 Presence of cardiac pacemaker; R29.6 Repeated falls; W18.09XA Striking against other object with subsequent fall, initial encounter; Y92.009 Unspecified place in unspecified non-institutional (private) residence as the place of occurrence of the external cause
CPT/HCPCS: 36415; 72070; 72100; 72170; 71045; 72125; 70450; 99285; 12001; 96374; J2270

== ENCOUNTER 2018-01-16 15:58 | Emergency (ER) | payer MEDICARE, OTHER ==
[2018-01-16 16:18] VITALS: RESP 18; TEMP 97.9
[2018-01-16] MEDS ORDERED: KETOROLAC 60 MG/2 ML VIAL IM STA (16:36)
--- NOTE | 2018-01-16 16:39 | ED ---
General Adult HPI - General Chief complaint: Fall Stated complaint: Pain on R Side Time Seen by Provider: 01/16/18 16:00 Source: patient, EMS, RN notes reviewed Mode of arrival: EMS Limitations: physical limitation - History of Present Illness Initial comments: This is a 72-year-old female presents emergency Department complaining that her anterior chest and back have hurt ever since she fell on Sunday. Patient was in the emergency department had her head checked out but no one checked out her chest at that time. Patient has a bruise to the anterior chest and states it hurts right below the bruise. Patient states every time she takes deep breath it hurts. Patient denies any shortness of breath however. Patient denies any palpitations. Patient denies any diaphoresis or nausea. Patient states the pain is right beneath the bruise. - Related Data Home Medications Medication Instructions Recorded Confirmed SUMAtriptan SUCCINATE [Imitrex] 50 mg PO BID PRN 02/15/16 01/14/18 Levothyroxine Sodium [Synthroid] 75 mcg PO DAILY 03/01/17 01/14/18 Potassium Chloride [Klor-Con 40 meq PO BID 03/01/17 01/14/18 Sprinkle] Pantoprazole Sodium [Protonix] 40 mg PO DAILY 04/25/17 01/14/18 Ergocalciferol (Vitamin D2) 50,000 unit PO TH 01/14/18 01/14/18 [Vitamin D2] FLUoxetine HCL [PROzac] 20 mg PO DAILY 01/14/18 01/14/18 Furosemide [Lasix] 40 mg PO BID 01/14/18 01/14/18 Magnesium Oxide [Mag-Ox] 400 mg PO DAILY 01/14/18 01/14/18 Methocarbamol [Robaxin] 750 mg PO TID 01/14/18 01/14/18 Sucralfate [Carafate] 1 gm PO ACHS 01/14/18 01/14/18 Previous Rx's Medication Instructions Recorded Hydrocodone/Acetaminophen [[place] 1 each PO Q4HR PRN #14 tab 01/16/18 5-325] Ibuprofen [Motrin] 400 mg PO Q8HR PRN #21 tab 01/16/18 Allergies Allergy/AdvReac Type Severity Reaction Status Date / Time adhesive Allergy RASH FROM Verified 01/14/18 07:42 EKG STICKERS celecoxib [From Celebrex] Allergy Rash/Hives Verified 01/14/18 07:42 sertraline HCl [From Zoloft] Allergy Rash/Hives Verified 01/14/18 07:42 sulfamethoxazole Allergy Anaphylaxis Verified 01/14/18 07:42 [From Bactrim] trimethoprim [From Bactrim] Allergy Anaphylaxis Verified 01/14/18 07:42 Review of Systems ROS Statement: Those systems with pertinent positive or pertinent negative responses have been documented in the HPI. ROS Other: All systems not noted in ROS Statement are negative. Past Medical History Past Medical History: Atrial Fibrillation, Chest Pain / Angina, Heart Failure, COPD, Fibromyalgia, GERD/Reflux, GI Bleed, Hypertension, Myocardial Infarction ( [place]), Osteoarthritis (OA), Rheumatoid Arthritis (RA), Thyroid Disorder Additional Past Medical History / Comment(s): hx Syncopy/Tachybrady syndrome. migraines, hx TIA, heart murmer, hx OF GASTRITIS/ulcers in stomach, hx esophageal ulcer and stricture, anemia, gets dizzy when she has to look up due to previous ear surgery, SHINGLE VACCINE 08-31-15 Last Myocardial Infarction Date:: 2002 History of Any Multi-Drug Resistant Organisms: None Reported Past Surgical History: Appendectomy, Cardiac Ablation, Cholecystectomy, Ear Surgery, Heart Catheterization, Hysterectomy, Orthopedic Surgery, Pacemaker, Tonsillectomy Additional Past Surgical History / Comment(s): ORIF LEFT LOWER ARM-HAS HARDWARE.EGD/ Numerous DILATATION OF esophagus. Pacemaker (ADAPTA) placed 07/07 at [facility]. Bilateral stapedectomies. surgery for hiatal hernia Past Anesthesia/Blood Transfusion Reactions: Family History of Problems w/ Anesthesia, Motion Sickness, Postoperative Nausea & Vomiting (PONV) Additional Past Anesthesia/Blood Transfusion Reaction / Comment(s): no problems with prior blood transfusion. BROTHER HAS PONV. Type of Cardiac Device: Permanent Pacemaker Device Placement Date:: 06/2016 Past Psychological History: Anxiety, Depression Smoking Status: Never smoker Past Alcohol Use History: None Reported Past Drug Use History: None Reported - Past Family History Brother(s) Family Medical History: Cancer Additional Family Medical History / Comment(s): throat Father Family Medical History: Pneumonia Additional Family Medical History / Comment(s): EMPHYSEMA Mother Family Medical History: COPD, Rheumatoid Arthritis (RA) Additional Family Medical History / Comment(s): EMPHYSEMA General Exam - General Exam Comments Initial Comments: GENERAL: Patient is well-developed and well-nourished. Patient is nontoxic and well- hydrated and is in mild distress. ENT: Neck is soft and supple. No significant lymphadenopathy is noted. Oropharynx is clear. Moist mucous membranes. Neck has full range of motion without eliciting any pain. EYES: The sclera were anicteric and conjunctiva were pink and moist. Extraocular movements were intact and pupils were equal round and reactive to light. Eyelids were unremarkable. PULMONARY: Unlabored respirations. Good breath sounds bilaterally. No audible rales rhonchi or wheezing was noted. CARDIOVASCULAR: There is a regular rate and rhythm without any murmurs gallops or rubs. There is a bruise on the anterior right chest wall which is very tender to palpation and is the area that the patient is complaining her pain is in. ABDOMEN: Soft and nontender with normal bowel sounds. SKIN: Skin is clear with no lesions or rashes and otherwise unremarkable. NEUROLOGIC: Patient is alert and oriented x3. Cranial nerves II through XII are grossly intact. Motor and sensory are also intact. Normal speech, volume and content. Symmetrical smile. MUSCULOSKELETAL: Normal extremities with adequate strength and full range of motion. LYMPHATICS: No significant lymphadenopathy is noted PSYCHIATRIC: Normal psychiatric evaluation. Limitations: physical limitation Course Vital Signs 01/16/18 16:09 Temperature 97.9 F Pulse Rate 89 Respiratory 18 Rate Blood Pressure 146/66 O2 Sat by Pulse 95 Oximetry Medical Decision Making - Medical Decision Making X-ray shows a rib fracture. Disposition Clinical Impression: Rib fracture Disposition: HOME SELF-CARE Condition: Good Instructions: Fall Prevention for Older Adults (ED), Rib Fracture (ED) Prescriptions: Hydrocodone/Acetaminophen [[place] 5-325] 1 each PO Q4HR PRN #14 tab PRN Reason: Pain Ibuprofen [Motrin] 400 mg PO Q8HR PRN #21 tab PRN Reason: Pain Is patient prescribed a controlled substance at d/c from ED?: Yes When asked, does pt state using other controlled substances?: No If prescribed controlled substance>3 days was MAPS reviewed?: Prescribed <3 Days If opioid is for acute pain is fill amount 7 days or less?: Yes If Rx opioid, was Start Talking consent form obtained?: Yes Referrals: Elroy Wray DO [Primary Care Provider] - 1-2 days Time of Disposition: 17:46
[2018-01-16] MEDS ORDERED: MORPHINE SULFATE 4 MG/ML SYRINGE IM STA (17:22)
--- NOTE | 2018-01-16 17:39 | XR ---
EXAMINATION TYPE: XR chest 2V DATE OF EXAM: 01/16/2018 COMPARISON: 10/17/2017 HISTORY: Chest pain TECHNIQUE: Frontal and lateral views of the chest are obtained. FINDINGS: Heart is enlarged. There is pulmonary interstitial edema. There is slight blunting of cost ophrenic angles. There is osteopenia with thoracic kyphotic deformity. There is vertebroplasty of mid thoracic vertebra. IMPRESSION: New pulmonary interstitial edema compared to last exam and suggestive of acute heart gael lure. Small pleural effusions.
[2018-01-16 18:53] VITALS: BP 114/67; PULSE 81
== END 2018-01-16 18:53 | disposition home or self-care (01) ==
LOC: EC 15:58
DX: S22.31XA Fracture of one rib, right side, initial encounter for closed fracture (principal); M54.9 Dorsalgia, unspecified; I11.0 Hypertensive heart disease with heart failure; I50.9 Heart failure, unspecified; F41.9 Anxiety disorder, unspecified; F32.9 Major depressive disorder, single episode, unspecified; K21.9 Gastro-esophageal reflux disease without esophagitis; I25.2 Old myocardial infarction; Z86.73 Personal history of transient ischemic attack (TIA), and cerebral infarction without residual deficits; Z90.49 Acquired absence of other specified parts of digestive tract; Z90.710 Acquired absence of both cervix and uterus; Z95.0 Presence of cardiac pacemaker; Z98.890 Other specified postprocedural states; Z79.899 Other long term (current) drug therapy; Z88.1 Allergy status to other antibiotic agents; Z88.2 Allergy status to sulfonamides; Z88.6 Allergy status to analgesic agent; Z88.8 Allergy status to other drugs, medicaments and biological substances; Z91.048 Other nonmedicinal substance allergy status; W01.10XA Fall on same level from slipping, tripping and stumbling with subsequent striking against unspecified object, initial encounter
CPT/HCPCS: 71046; 96372; 99284

== ENCOUNTER → 2018-03-27 | Outpatient (CLI) | payer MEDICARE, OTHER ==
[2018-03-27 15:48] LABS: HCT 30.4 % (34.0-46.0); HGB 8.9 gm/dL (11.4-16.0); Hypochromasia Marked; MCH 23.6 pg (25.0-35.0); MCHC 29.4 g/dL (31.0-37.0); MCV 80.3 fL (80.0-100.0); Mean Platelet Volume 6.6; Platelet Count 517 k/uL (150-450); RBC 3.79 m/uL (3.80-5.40); RDW 15.5 % (11.5-15.5); WBC 6.7 k/uL (3.8-10.6)
[2018-03-27 21:01] LABS: Albumin 3.9 g/dL (3.80-4.90); Albumin/Globulin Ratio 1.7 (1.20-2.10); Anion Gap 7.1 mmol/L (4.00-12.00); Calcium 9.6 mg/dL (8.7-10.3); Carbon Dioxide 30.9 mmol/L (21.6-31.8); Globulin 2.3 g/dL (2.1-3.7); Magnesium 1.7 mg/dL (1.5-2.4); Potassium 4.2 mmol/L (3.5-5.5); Total Bilirubin 0.2 mg/dL (0.3-1.2); Total Protein 6.2 g/dL (6.2-8.2)
== END | disposition home or self-care (01) ==
LOC: LABWHC1 14:51
PROVIDERS: ATTEND Nurse Practitioner Adult Health
DX: E03.9 Hypothyroidism, unspecified (principal); I10 Essential (primary) hypertension; R60.1 Generalized edema
CPT/HCPCS: 36415; 80053; 83735; 83880; 84439; 84443; 85027

== ENCOUNTER 2018-03-30 09:03 | Emergency (ER) | payer MEDICARE, OTHER ==
[2018-03-30 09:09] VITALS: TEMP 98.5
[2018-03-30] MEDS ORDERED: FUROSEMIDE 10 MG/ML 4 ML VIAL IV STA (09:50)
--- NOTE | 2018-03-30 09:54 | ED ---
SOB HPI - General Chief Complaint: Shortness of Breath Stated Complaint: Fluid all over body Time Seen by Provider: 03/30/18 09:13 Source: patient, RN notes reviewed Mode of arrival: ambulatory - History of Present Illness Initial Comments: This is a 72-year-old female with a history of congestive failure in the past who states she is retaining fluid in her legs and even in her face and hands. she presents with complaints of shortness of breath exertional dyspnea and edema to her lower extremities only said to her knees. She has some generalized weakness along with this no overt chest pain no cough or phlegm production she also has a PEG tube which she states has had some leakage around it. No other complaints at this time MD Complaint: shortness of breath - Related Data Home Medications Medication Instructions Recorded Confirmed SUMAtriptan SUCCINATE [Imitrex] 50 mg PO BID PRN 02/15/16 03/30/18 Levothyroxine Sodium [Synthroid] 75 mcg PO DAILY 03/01/17 03/30/18 Potassium Chloride [Klor-Con 40 meq PO BID 03/01/17 03/30/18 Sprinkle] Pantoprazole Sodium [Protonix] 40 mg PO DAILY 04/25/17 03/30/18 Ergocalciferol (Vitamin D2) 50,000 unit PO TH 01/14/18 03/30/18 [Vitamin D2] FLUoxetine HCL [PROzac] 20 mg PO DAILY 01/14/18 03/30/18 Furosemide [Lasix] 40 mg PO BID 01/14/18 03/30/18 Magnesium Oxide [Mag-Ox] 400 mg PO DAILY 01/14/18 03/30/18 Methocarbamol [Robaxin] 750 mg PO TID 01/14/18 03/30/18 Sucralfate [Carafate] 1 gm PO ACHS 01/14/18 03/30/18 Previous Rx's Medication Instructions Recorded Hydrocodone/Acetaminophen [[place] 1 each PO Q4HR PRN #14 tab 01/16/18 5-325] Ibuprofen [Motrin] 400 mg PO Q8HR PRN #21 tab 01/16/18 Furosemide [Lasix] 40 mg PO BID #60 tablet 03/30/18 Allergies Allergy/AdvReac Type Severity Reaction Status Date / Time adhesive Allergy RASH FROM Verified 03/30/18 11:49 EKG STICKERS celecoxib [From Celebrex] Allergy Rash/Hives Verified 03/30/18 11:49 sertraline HCl [From Zoloft] Allergy Rash/Hives Verified 03/30/18 11:49 sulfamethoxazole Allergy Anaphylaxis Verified 03/30/18 11:49 [From Bactrim] trimethoprim [From Bactrim] Allergy Anaphylaxis Verified 03/30/18 11:49 Review of Systems ROS Statement: Those systems with pertinent positive or pertinent negative responses have been documented in the HPI. ROS Other: All systems not noted in ROS Statement are negative. Past Medical History Past Medical History: Atrial Fibrillation, Chest Pain / Angina, Heart Failure, COPD, Fibromyalgia, GERD/Reflux, GI Bleed, Hypertension, Myocardial Infarction ( [place]), Osteoarthritis (OA), Rheumatoid Arthritis (RA), Thyroid Disorder Additional Past Medical History / Comment(s): hx Syncopy/Tachybrady syndrome. migraines, hx TIA, heart murmer, hx OF GASTRITIS/ulcers in stomach, hx esophageal ulcer and stricture, anemia, gets dizzy when she has to look up due to previous ear surgery, SHINGLE VACCINE 08-31-15 Last Myocardial Infarction Date:: 2002 History of Any Multi-Drug Resistant Organisms: None Reported Past Surgical History: Appendectomy, Cardiac Ablation, Cholecystectomy, Ear Surgery, Heart Catheterization, Hysterectomy, Orthopedic Surgery, Pacemaker, Tonsillectomy Additional Past Surgical History / Comment(s): ORIF LEFT LOWER ARM-HAS HARDWARE.EGD/ Numerous DILATATION OF esophagus. Pacemaker (ADAPTA) placed 07/07 at [facility]. Bilateral stapedectomies. surgery for hiatal hernia Past Anesthesia/Blood Transfusion Reactions: Family History of Problems w/ Anesthesia, Motion Sickness, Postoperative Nausea & Vomiting (PONV) Additional Past Anesthesia/Blood Transfusion Reaction / Comment(s): no problems with prior blood transfusion. BROTHER HAS PONV. Type of Cardiac Device: Permanent Pacemaker Device Placement Date:: 06/2016 Past Psychological History: Anxiety, Depression Smoking Status: Never smoker Past Alcohol Use History: None Reported Past Drug Use History: None Reported - Past Family History Brother(s) Family Medical History: Cancer Additional Family Medical History / Comment(s): throat Father Family Medical History: Pneumonia Additional Family Medical History / Comment(s): EMPHYSEMA Mother Family Medical History: COPD, Rheumatoid Arthritis (RA) Additional Family Medical History / Comment(s): EMPHYSEMA General Exam - General Exam Comments Initial Comments: This is a well-developed asthenic appearing awake alert oriented 3 female General appearance: alert, in no apparent distress Head exam: Present: atraumatic, normocephalic, normal inspection Eye exam: Present: normal appearance, PERRL, EOMI. Absent: scleral icterus, conjunctival injection, periorbital swelling ENT exam: Present: normal exam, mucous membranes moist Neck exam: Present: normal inspection. Absent: tenderness, meningismus, lymphadenopathy Respiratory exam: Present: decreased breath sounds. Absent: respiratory distress, wheezes, rales, rhonchi, stridor Cardiovascular Exam: Present: regular rate, normal rhythm, normal heart sounds. Absent: systolic murmur, diastolic murmur, rubs, gallop, clicks GI/Abdominal exam: Present: soft, normal bowel sounds, other (PEG tube in place) . Absent: distended, tenderness, guarding, rebound, rigid Extremities exam: Present: normal inspection, full ROM, normal capillary refill , pedal edema (Pila edema bilaterally up to the knees.). Absent: tenderness, joint swelling, calf tenderness Back exam: Present: normal inspection Neurological exam: Present: alert, oriented X3, CN II-XII intact Psychiatric exam: Present: normal affect, normal mood Skin exam: Present: warm, dry, intact, normal color. Absent: rash Course Vital Signs 03/30/18 03/30/18 09:06 10:12 Temperature 98.5 F Pulse Rate 86 Respiratory 20 16 Rate Blood Pressure 152/78 O2 Sat by Pulse 100 Oximetry - Reevaluation(s) Reevaluation #1: 03/30/18 11:57 The patient was diuresing well after IV Lasix she was noted to walk without difficulty or shortness of breath. Medical Decision Making - Medical Decision Making I did discuss findings with patient she'll be discharged with a prescription for Lasix which she is running out of she is elevate her legs as we did discuss follow-up with her doctor return when necessary she does have chronic anemia. She will follow-up with her doctor regarding this - Lab Data Result diagrams: 03/30/18 10:14 03/30/18 10:14 Lab Results 03/30/18 03/30/18 03/30/18 Range/Units 10:14 10:14 10:14 WBC 4.7 (3.8-10.6) k/uL RBC 3.57 L (3.80-5.40) m/uL Hgb 8.3 L (11.4-16.0) gm/dL Hct 28.6 L (34.0-46.0) % MCV 79.9 L (80.0-100.0) fL MCH 23.1 L (25.0-35.0) pg MCHC 29.0 L (31.0-37.0) g/dL RDW 15.6 H (11.5-15.5) % Plt Count 503 H (150-450) k/uL Neutrophils % (Manual) 56 % Lymphocytes % (Manual) 25 % Monocytes % (Manual) 8 % Eosinophils % (Manual) 11 % Neutrophils # (Manual) 2.63 (1.3-7.7) k/uL Lymphocytes # (Manual) 1.18 (1.0-4.8) k/uL Monocytes # (Manual) 0.38 (0-1.0) k/uL Eosinophils # (Manual) 0.52 (0-0.7) k/uL Nucleated RBCs 0 (0-0) /100 WBC Manual Slide Review Performed Hypochromasia Marked Poikilocytosis (manual Present PT (9.0-12.0) sec INR (<1.2) APTT (22.0-30.0) sec Sodium 139 (137-145) mmol/L Potassium 5.2 H (3.5-5.1) mmol/L Chloride 109 H (98-107) mmol/L Carbon Dioxide 23 (22-30) mmol/L Anion Gap 7 mmol/L BUN 9 (7-17) mg/dL Creatinine 0.88 (0.52-1.04) mg/dL Est GFR (CKD-EPI)AfAm 78 (>60 ml/min/1.73 sqM) Est GFR (CKD-EPI)NonAf 67 (>60 ml/min/1.73 sqM) Glucose 95 (74-99) mg/dL Calcium 9.2 (8.4-10.2) mg/dL Magnesium 2.1 (1.6-2.3) mg/dL Total Bilirubin 0.1 L (0.2-1.3) mg/dL AST 28 (14-36) U/L ALT 28 (9-52) U/L Alkaline Phosphatase 73 (38-126) U/L Total Creatine Kinase 172 H (30-135) U/L CK-MB (CK-2) 4.1 H (0.0-2.4) ng/mL CK-MB (CK-2) Rel Index 2.4 Troponin I <0.012 (0.000-0.034) ng/mL NT-Pro-B Natriuret Pep pg/mL Total Protein 6.8 (6.3-8.2) g/dL Albumin 3.7 (3.5-5.0) g/dL 03/30/18 03/30/18 Range/Units 10:14 10:14 WBC (3.8-10.6) k/uL RBC (3.80-5.40) m/uL Hgb (11.4-16.0) gm/dL Hct (34.0-46.0) % MCV (80.0-100.0) fL MCH (25.0-35.0) pg MCHC (31.0-37.0) g/dL RDW (11.5-15.5) % Plt Count (150-450) k/uL Neutrophils % (Manual) % Lymphocytes % (Manual) % Monocytes % (Manual) % Eosinophils % (Manual) % Neutrophils # (Manual) (1.3-7.7) k/uL Lymphocytes # (Manual) (1.0-4.8) k/uL Monocytes # (Manual) (0-1.0) k/uL Eosinophils # (Manual) (0-0.7) k/uL Nucleated RBCs (0-0) /100 WBC Manual Slide Review Hypochromasia Poikilocytosis (manual PT 9.6 (9.0-12.0) sec INR 0.9 (<1.2) APTT 22.4 (22.0-30.0) sec Sodium (137-145) mmol/L Potassium (3.5-5.1) mmol/L Chloride (98-107) mmol/L Carbon Dioxide (22-30) mmol/L Anion Gap mmol/L BUN (7-17) mg/dL Creatinine (0.52-1.04) mg/dL Est GFR (CKD-EPI)AfAm (>60 ml/min/1.73 sqM) Est GFR (CKD-EPI)NonAf (>60 ml/min/1.73 sqM) Glucose (74-99) mg/dL Calcium (8.4-10.2) mg/dL Magnesium (1.6-2.3) mg/dL Total Bilirubin (0.2-1.3) mg/dL AST (14-36) U/L ALT (9-52) U/L Alkaline Phosphatase (38-126) U/L Total Creatine Kinase (30-135) U/L CK-MB (CK-2) (0.0-2.4) ng/mL CK-MB (CK-2) Rel Index Troponin I (0.000-0.034) ng/mL NT-Pro-B Natriuret Pep 314 pg/mL Total Protein (6.3-8.2) g/dL Albumin (3.5-5.0) g/dL - EKG Data -: EKG Interpreted by Me EKG shows normal: sinus rhythm, axis, intervals, QRS complexes, ST-T waves ( Normal sinus rhythm with 75 appear interval 140 QRS duration 72 QT since QTC 370 /422 this is a normal-appearing EKG.) Rate: normal - Radiology Data Radiology results: image reviewed (Review the imaging reveals no acute findings. ) Disposition Clinical Impression: Peripheral edema, Chronic anemia Disposition: HOME SELF-CARE Condition: Good Instructions: Edema (ED) Additional Instructions: Elevate your legs as directed 3-4 times a day for up to 20-30 minutes above her heart. Take an extra dose of Lasix for the next 3 days. Preferably in the a.m. Prescriptions: Furosemide [Lasix] 40 mg PO BID #60 tablet Is patient prescribed a controlled substance at d/c from ED?: No Referrals: Elroy Wray DO [Primary Care Provider] - 1-2 days
[2018-03-30 10:35] LABS: Albumin 3.7 g/dL (3.5-5.0); Calcium 9.2 mg/dL (8.4-10.2); INR 0.9 (<1.2); Magnesium 2.1 mg/dL (1.6-2.3); Partial Thromboplastin Time 22.4 sec (22.0-30.0); Potassium 5.2 mmol/L (3.5-5.1); Prothrombin Time 9.6 sec (9.0-12.0); Total Bilirubin 0.1 mg/dL (0.2-1.3); Total Protein 6.8 g/dL (6.3-8.2)
[2018-03-30] MEDS ORDERED: HYDROmorphone 1 MG/ML 1 ML SYRINGE IVP STA (10:35)
[2018-03-30 10:43] LABS: HCT 28.6 % (34.0-46.0); HGB 8.3 gm/dL (11.4-16.0); Hypochromasia Marked; MCH 23.1 pg (25.0-35.0); MCV 79.9 fL (80.0-100.0); Mean Platelet Volume 6.3; Platelet Count 503 k/uL (150-450); RBC 3.57 m/uL (3.80-5.40); RDW 15.6 % (11.5-15.5); WBC 4.7 k/uL (3.8-10.6)
[2018-03-30 10:53] LABS: Creatine Kinase 172 U/L (30-135)
[2018-03-30 10:57] LABS: Eosinophils # (M) 0.52 k/uL (0-0.7); Lymphocytes # (M) 1.18 k/uL (1.0-4.8); Monocytes # (M) 0.38 k/uL (0-1.0); Neutrophils # (M) 2.63 k/uL (1.3-7.7); Neutrophils % (M) 56 %; Nucleated Red Blood Cells 0 /100 WBC (0-0); Total Cells Counted 100
[2018-03-30 10:59] LABS: Poikilocytosis (M) Present
[2018-03-30 11:05] LABS: Creatine Kinase MB 4.1 ng/mL (0.0-2.4); Troponin I <0.012 ng/mL (0.000-0.034)
[2018-03-30] MEDS ORDERED: HYDROcodone/APAP 5-325MG 1 EACH TAB PO STA (12:18)
--- NOTE | 2018-03-30 12:39 | XR ---
EXAMINATION TYPE: XR chest 2V DATE OF EXAM: 03/30/2018 HISTORY: difficulty breathing. REFERENCE: Previous study dated 01/16/2018. FINDINGS: A bipolar pacemaker is present on the left. Lung volumes are prominent. The heart is mildly enlarged. There are increased interstitial markings. There is vascular congestion. There is a previous kyphoplasty in one of the mid dorsal vertebra. IMPRESSION: 1. COPD. 2. CARDIOMEGALY. 3. VASCULAR CONGESTION AND MILD INCREASED PARENCHYMAL MARKINGS. PLEASE CORRELATE TO EXCLUDE CHF.
[2018-03-30 12:45] VITALS: BP 145/80; PULSE 75; RESP 18
== END 2018-03-30 12:55 | disposition home or self-care (01) ==
LOC: EC 09:03
DX: M25.461 Effusion, right knee (principal); M25.462 Effusion, left knee; D64.9 Anemia, unspecified; J44.9 Chronic obstructive pulmonary disease, unspecified; I48.91 Unspecified atrial fibrillation; I11.0 Hypertensive heart disease with heart failure; I50.9 Heart failure, unspecified; M79.7 Fibromyalgia; K21.9 Gastro-esophageal reflux disease without esophagitis; I25.2 Old myocardial infarction; M19.90 Unspecified osteoarthritis, unspecified site; M06.9 Rheumatoid arthritis, unspecified; E07.9 Disorder of thyroid, unspecified; F41.9 Anxiety disorder, unspecified; F32.9 Major depressive disorder, single episode, unspecified; Z86.73 Personal history of transient ischemic attack (TIA), and cerebral infarction without residual deficits; Z95.818 Presence of other cardiac implants and grafts; Z95.0 Presence of cardiac pacemaker; Z82.5 Family history of asthma and other chronic lower respiratory diseases; Z82.69 Family history of other diseases of the musculoskeletal system and connective tissue; Z79.899 Other long term (current) drug therapy; Z91.048 Other nonmedicinal substance allergy status; Z88.6 Allergy status to analgesic agent; Z88.8 Allergy status to other drugs, medicaments and biological substances; Z88.2 Allergy status to sulfonamides
CPT/HCPCS: 36415; 83880; 80053; 82550; 82553; 83735; 84484; 85025; 85610; 85730; 71046; 99285; 96374; 96375; J1940; J1170

== ENCOUNTER → 2018-04-11 | Outpatient (CLI) | payer MEDICARE, OTHER ==
[2018-04-11 13:15] LABS: Anisocytosis Slight; HCT 29.8 % (34.0-46.0); HGB 8.8 gm/dL (11.4-16.0); Hypochromasia Marked; MCH 23.1 pg (25.0-35.0); MCHC 29.4 g/dL (31.0-37.0); MCV 78.4 fL (80.0-100.0); Mean Platelet Volume 6.2; Microcytosis Slight; Platelet Count 440 k/uL (150-450); RDW 16.8 % (11.5-15.5)
[2018-04-11 19:00] LABS: Albumin 4.4 g/dL (3.80-4.90); Albumin/Globulin Ratio 1.76 (1.20-2.10); Anion Gap 11.1 mmol/L (4.00-12.00); Calcium 9.3 mg/dL (8.7-10.3); Carbon Dioxide 34.9 mmol/L (21.6-31.8); Globulin 2.5 g/dL (2.1-3.7); Total Bilirubin 0.4 mg/dL (0.2-1.2); Total Protein 6.9 g/dL (6.2-8.2)
[2018-04-11 19:07] LABS: Parathyroid Hormone Intact 152.5 pg/mL (14.0-72.0)
[2018-04-11 19:09] LABS: T4, Free (Free Thyroxine) 1.3 ng/dL (0.80-1.80); Vitamin D 25 Hydroxy 62.6 ng/mL (30.0-100.0)
[2018-04-11 19:11] LABS: Iron Saturation 4.6 (12.00-45.00)
== END | disposition home or self-care (01) ==
LOC: LABWHC1 12:30
PROVIDERS: ATTEND Internal Medicine Endocrinology, Diabetes & Metabolism
DX: E03.9 Hypothyroidism, unspecified (principal); E21.3 Hyperparathyroidism, unspecified; R89.9 Unspecified abnormal finding in specimens from other organs, systems and tissues
CPT/HCPCS: 36415; 80053; 82306; 83540; 83550; 83970; 84439; 84443; 85027

== ENCOUNTER → 2018-05-23 | Outpatient (CLI) | payer MEDICARE, OTHER ==
--- NOTE | 2018-05-23 08:53 | FL ---
EXAMINATION TYPE: FL barium swallow DATE OF EXAM: 05/23/2018 COMPARISON: None HISTORY: Food getting stuck, vomiting TECHNIQUE: A double air contrast UGI study is performed. FINDINGS: The esophagus dilates to normal caliber has normal contour to the gastroesophageal junction. Gastroes ophageal junction opens to normal caliber. There is a very small hiatal hernia present. No intralumin al or extramural abnormalities evident. Others good propulsion of the esophageal bolus in the horizon linda drinking position. Fluoroscopy time: 31 seconds Images: 61 IMPRESSIONS: 1. Very small hiatal hernia. 2. No suspicious changes esophagram
== END | disposition home or self-care (01) ==
LOC: RADFLWHC 07:56
PROVIDERS: ATTEND Internal Medicine
DX: K44.9 Diaphragmatic hernia without obstruction or gangrene (principal)
CPT/HCPCS: 74220

== ENCOUNTER → 2018-05-31 | Outpatient (CLI) | payer MEDICARE, OTHER ==
--- NOTE | 2018-05-31 15:52 | US ---
EXAMINATION TYPE: US kidneys/renal and bladder DATE OF EXAM: 05/31/2018 COMPARISON: CT dated 03/05/2017 CLINICAL HISTORY: N18.3 Chronic Kidney Disease Stg 3. EXAM MEASUREMENTS: Right Kidney: 9.5 x 3.1 x 4.5 cm Left Kidney: 9.1 x 3.4 x 4.3 cm Pt states that she is under the assumption that she has a right renal lesion. Technologist unable to appreciate on today's study Right Kidney: No hydronephrosis or masses seen. Cortical renal thinning is seen. Left Kidney: No hydronephrosis or masses seen Bladder: wnl There is no evidence for hydronephrosis at this point in time. No nephrolithiasis is seen. No alina s are identified. The urinary bladder is anechoic. Bilateral ureteral jets are seen. IMPRESSION: 1. Mild right-sided cortical renal thinning, sequela of medical renal disease in this patient with kn own chronic kidney disease, stage III. 2. No hydronephrosis or nephrolithiasis. 3. No focal renal mass seen on today's examination nor the CT dated 03/05/2017, however if there is c oncern for renal mass follow-up CT could be performed.
== END | disposition home or self-care (01) ==
LOC: RADUSWWP 14:58
PROVIDERS: ATTEND Internal Medicine Nephrology
DX: N18.3 Chronic kidney disease, stage 3 (moderate) (principal)
CPT/HCPCS: 76770

== ENCOUNTER → 2018-06-17 | Outpatient (CLI) | payer MEDICARE, OTHER ==
[2018-06-17 14:21] LABS: Appearance,Urine Clear (Clear); Bilirubin,Urine Negative (Negative); Blood,Urine Negative (Negative); Color,Urine Light Yellow; Glucose,Urine (UA) Negative (Negative); Ketones,Urine Trace (Negative); Leukocyte Esterase,Urine Negative (Negative); Nitrite,Urine Negative (Negative); PH, Urine 5.5 (5.0-8.0); Protein,Urine Trace (Negative); Specific Gravity,Urine 1.011 (1.001-1.035); Urobilinogen,Urine <2.0 mg/dL (<2.0)
[2018-06-17 14:51] LABS: Anisocytosis Marked; HCT 43.4 % (34.0-46.0); HGB 13.4 gm/dL (11.4-16.0); Hypochromasia Moderate; MCH 26.9 pg (25.0-35.0); MCHC 30.8 g/dL (31.0-37.0); MCV 87.3 fL (80.0-100.0); Macrocytosis Slight; Mean Platelet Volume 6.4; Microcytosis Slight; Platelet Count 325 k/uL (150-450); RBC 4.97 m/uL (3.80-5.40); WBC 7.4 k/uL (3.8-10.6)
[2018-06-17 14:52] LABS: RDW 25.6 % (11.5-15.5)
[2018-06-17 18:42] LABS: Albumin 4.8 g/dL (3.80-4.90); Albumin/Globulin Ratio 1.55 (1.60-3.17); Calcium 10.5 mg/dL (8.7-10.3); Globulin 3.1 g/dL (1.6-3.3); Phosphorus 3.7 mg/dL (2.4-5.1); Total Bilirubin 0.3 mg/dL (0.3-1.2); Total Protein 7.9 g/dL (6.2-8.2)
== END | disposition home or self-care (01) ==
LOC: LABWHC1 12:56
PROVIDERS: ATTEND Internal Medicine
DX: N39.0 Urinary tract infection, site not specified (principal); E83.39 Other disorders of phosphorus metabolism; D64.9 Anemia, unspecified
CPT/HCPCS: 36415; 80053; 81003; 84100; 85027

== ENCOUNTER 2018-08-01 12:31 | Observation (INO) | payer MEDICARE, OTHER ==
[2018-08-01 14:50] LABS: Albumin 4.4 g/dL (3.5-5.0); Calcium 9.1 mg/dL (8.4-10.2); Potassium 2.8 mmol/L (3.5-5.1); Total Bilirubin 0.3 mg/dL (0.2-1.3); Total Protein 7.9 g/dL (6.3-8.2)
[2018-08-01 14:52] LABS: INR 0.9 (<1.2); Prothrombin Time 9.8 sec (9.0-12.0)
[2018-08-01 15:38] LABS: Anisocytosis Moderate; Basophils # (A) 0.1 k/uL (0-0.2); Basophils % (A) 1 %; Eosinophils # (A) 0.3 k/uL (0-0.7); Eosinophils % (A) 5 %; HCT 40.6 % (34.0-46.0); HGB 12.8 gm/dL (11.4-16.0); Hypochromasia Slight; Lymphocytes # (A) 1.9 k/uL (1.0-4.8); Lymphocytes % (A) 34 %; MCHC 31.6 g/dL (31.0-37.0); MCV 94.8 fL (80.0-100.0); Macrocytosis Slight; Mean Platelet Volume 6.5; Microcytosis Slight; Monocytes # (A) 0.3 k/uL (0-1.0); Monocytes % (A) 4 %; Neutrophils # (A) 3.1 k/uL (1.3-7.7); Neutrophils % (A) 54 %; Platelet Count 284 k/uL (150-450); RBC 4.29 m/uL (3.80-5.40); RDW 21.7 % (11.5-15.5); WBC 5.7 k/uL (3.8-10.6)
[2018-08-01] MEDS ORDERED: IPRATROPIUM-ALBUTEROL 3 ML NEB INHALATION STA (15:55)
[2018-08-01] MEDS ORDERED: SODIUM CHLORIDE 0.9% 1,000 ML IV STA ×2 (15:55)
[2018-08-01] MEDS ORDERED: POTASSIUM BICARBONATE/CIT AC 20 MEQ TABLET.EFF PO ONE (15:56)
--- NOTE | 2018-08-01 16:07 | ED ---
Recheck HPI - General Chief Complaint: Recheck/Abnormal Lab/Rx Stated Complaint: leg, hand & facial swelling Time Seen by Provider: 08/01/18 15:14 Source: patient, RN notes reviewed, old records reviewed Mode of arrival: ambulatory Limitations: no limitations - History of Present Illness Initial Comments: This is a 72-year-old female the ER for evaluation. Patient was essay for evaluation regarding lower extremity edema significant shortness of breath shortness of breath with exertion. Patient has no chest pain. No recent travel history no sick contacts. Patient does have history of heart failure. She has been increasing her Lasix for a week with no improvement MD Complaint: other (Patient has had abnormal lower extremity edema and shortness of breath) -: week(s) (1) Symptoms Since Prior Visit: worsening swelling Associated Symptoms: shortness of breath Treatments Prior to Arrival: other medications (Lasix) - Related Data Home Medications Medication Instructions Recorded Confirmed SUMAtriptan SUCCINATE [Imitrex] 50 mg PO BID PRN 02/15/16 08/01/18 Levothyroxine Sodium [Synthroid] 75 mcg PO DAILY 03/01/17 08/01/18 Potassium Chloride [Klor-Con 40 meq PO BID 03/01/17 08/01/18 Sprinkle] Pantoprazole Sodium [Protonix] 40 mg PO DAILY 04/25/17 08/01/18 Ergocalciferol (Vitamin D2) 50,000 unit PO TH 01/14/18 08/01/18 [Vitamin D2] Furosemide [Lasix] 40 mg PO BID 01/14/18 08/01/18 Magnesium Oxide [Mag-Ox] 400 mg PO DAILY 01/14/18 08/01/18 Methocarbamol [Robaxin] 750 mg PO TID 01/14/18 08/01/18 Sucralfate [Carafate] 1 gm PO ACHS 01/14/18 08/01/18 Cyanocobalamin [Vitamin B-12] 500 mcg PO DAILY 08/01/18 08/01/18 Pyridoxine HCl (Vitamin B6) 100 mg PO DAILY 08/01/18 08/01/18 [Vitamin B-6] Allergies Allergy/AdvReac Type Severity Reaction Status Date / Time adhesive Allergy RASH FROM Verified 08/01/18 15:20 EKG STICKERS celecoxib [From Celebrex] Allergy Rash/Hives Verified 08/01/18 15:20 sertraline HCl [From Zoloft] Allergy Rash/Hives Verified 08/01/18 15:20 sulfamethoxazole Allergy Anaphylaxis Verified 08/01/18 15:20 [From Bactrim] trimethoprim [From Bactrim] Allergy Anaphylaxis Verified 08/01/18 15:20 Review of Systems ROS Statement: Those systems with pertinent positive or pertinent negative responses have been documented in the HPI. ROS Other: All systems not noted in ROS Statement are negative. Past Medical History Past Medical History: Atrial Fibrillation, Blood Disorder, Coronary Artery Disease (CAD), Chest Pain / Angina, Fibromyalgia, GERD/Reflux, GI Bleed, Hypertension, Myocardial Infarction ([place]), Musculoskeletal Disorder, Osteoarthritis (OA), Thyroid Disorder Additional Past Medical History / Comment(s): Pacemaker [facility] in June 2016 for Syncopy/Tachybrady syndrome Paroxysmal AFib, has had RVR. RHEUMATIC FEVER; H eart Murmur. chronic back, dee shoulder pain. SEVERE OSTEOPROS,Vertigo,DJD. GI ulcers, esophagitis/esophageal stricture. Last Myocardial Infarction Date:: 2002 History of Any Multi-Drug Resistant Organisms: None Reported Past Surgical History: Appendectomy, Cardiac Ablation, Ear Surgery, Heart Catheterization, Hysterectomy, Orthopedic Surgery, Pacemaker, Tonsillectomy Additional Past Surgical History / Comment(s): ORIF LEFT LOWER ARM, HAS HARDWARE. Numerous DILATATION OF ESOPHAGUS-recently done in 06/2016 at [facility] pt stated bx were neg, colonoscopy. Pacemaker (ADAPTA) placed 07/07 at [facility]. Cardiac Cath in 2002. Bilateral stapedectomies. CARDIAC ABLATION 09/2016. Past Anesthesia/Blood Transfusion Reactions: Family History of Problems w/ Anesthesia, Motion Sickness, Postoperative Nausea & Vomiting (PONV) Additional Past Anesthesia/Blood Transfusion Reaction / Comment(s): no problems with prior blood transfusion. BROTHER HAS PONV. Type of Cardiac Device: Permanent Pacemaker Device Placement Date:: 06/2016 Past Psychological History: No Psychological Hx Reported Smoking Status: Never smoker Past Alcohol Use History: None Reported Past Drug Use History: None Reported - Past Family History Brother(s) Family Medical History: Cancer Additional Family Medical History / Comment(s): throat Father Family Medical History: Pneumonia Additional Family Medical History / Comment(s): EMPHYSEMA Mother Family Medical History: COPD, Rheumatoid Arthritis (RA) Additional Family Medical History / Comment(s): EMPHYSEMA General Exam - General Exam Comments Initial Comments: Bilateral lower extremity edema Limitations: no limitations General appearance: alert, in no apparent distress Head exam: Present: atraumatic, normocephalic, normal inspection Eye exam: Present: normal appearance, PERRL, EOMI. Absent: scleral icterus, conjunctival injection, periorbital swelling ENT exam: Present: normal exam, mucous membranes moist Neck exam: Present: normal inspection. Absent: tenderness, meningismus, lymphadenopathy Respiratory exam: Present: normal lung sounds bilaterally. Absent: respiratory distress, wheezes, rales, rhonchi, stridor Cardiovascular Exam: Present: regular rate, normal rhythm, normal heart sounds. Absent: systolic murmur, diastolic murmur, rubs, gallop, clicks GI/Abdominal exam: Present: soft, normal bowel sounds. Absent: distended, tenderness, guarding, rebound, rigid Extremities exam: Present: normal inspection, full ROM, normal capillary refill. Absent: tenderness, pedal edema, joint swelling, calf tenderness Back exam: Present: normal inspection Neurological exam: Present: alert, oriented X3, CN II-XII intact Psychiatric exam: Present: normal affect, normal mood Skin exam: Present: warm, dry, intact, normal color. Absent: rash Course Vital Signs 08/01/18 12:40 Temperature 97.8 F Pulse Rate 85 Respiratory 22 Rate Blood Pressure 144/78 O2 Sat by Pulse 96 Oximetry - Reevaluation(s) Reevaluation #1: 08/01/18 16:06 Medical record is reviewed Reevaluation #2: 08/01/18 16:06 Patient given diuresis Medical Decision Making - Medical Decision Making 72 female the ER for evaluation. Patient has bilateral lower extremity edema and shortness of breath. Patient be admitted for CHF exacerbation place and diuresis - Lab Data Result diagrams: 08/01/18 15:30 08/01/18 14:26 Lab Results 08/01/18 08/01/18 08/01/18 Range/Units 14:26 14:26 15:30 WBC 5.7 (3.8-10.6) k/uL RBC 4.29 (3.80-5.40) m/uL Hgb 12.8 (11.4-16.0) gm/dL Hct 40.6 (34.0-46.0) % MCV 94.8 (80.0-100.0) fL MCH 30.0 (25.0-35.0) pg MCHC 31.6 (31.0-37.0) g/dL RDW 21.7 H (11.5-15.5) % Plt Count 284 (150-450) k/uL Neutrophils % 54 % Lymphocytes % 34 % Monocytes % 4 % Eosinophils % 5 % Basophils % 1 % Neutrophils # 3.1 (1.3-7.7) k/uL Lymphocytes # 1.9 (1.0-4.8) k/uL Monocytes # 0.3 (0-1.0) k/uL Eosinophils # 0.3 (0-0.7) k/uL Basophils # 0.1 (0-0.2) k/uL Hypochromasia Slight Anisocytosis Moderate Microcytosis Slight Macrocytosis Slight PT 9.8 (9.0-12.0) sec INR 0.9 (<1.2) Sodium 143 (137-145) mmol/L Potassium 2.8 L (3.5-5.1) mmol/L Chloride 99 (98-107) mmol/L Carbon Dioxide 33 H (22-30) mmol/L Anion Gap 11 mmol/L BUN 12 (7-17) mg/dL Creatinine 0.91 (0.52-1.04) mg/dL Est GFR (CKD-EPI)AfAm 74 (>60 ml/min/1.73 sqM) Est GFR (CKD-EPI)NonAf 64 (>60 ml/min/1.73 sqM) Glucose 112 H (74-99) mg/dL Calcium 9.1 (8.4-10.2) mg/dL Total Bilirubin 0.3 (0.2-1.3) mg/dL AST 67 H (14-36) U/L ALT 44 (9-52) U/L Alkaline Phosphatase 78 (38-126) U/L Total Protein 7.9 (6.3-8.2) g/dL Albumin 4.4 (3.5-5.0) g/dL - Radiology Data Radiology results: report reviewed (Chest x-ray), image reviewed Disposition Clinical Impression: CHF (congestive heart failure), Bilateral lower extremity edema Disposition: ADMITTED IP TO THIS [facility] Condition: Good Is patient prescribed a controlled substance at d/c from ED?: No Referrals: Elroy Wray DO [Primary Care Provider] - 1-2 days
--- NOTE | 2018-08-01 17:21 | US ---
EXAMINATION TYPE: US venous doppler duplex LE BI DATE OF EXAM: 08/01/2018 5:12 PM COMPARISON: NONE CLINICAL HISTORY: Pain. SIDE PERFORMED: Bilateral TECHNIQUE: The lower extremity deep venous system is examined utilizing real time linear array sonog guillermina with graded compression, doppler sonography and color-flow sonography. VESSELS IMAGED: External Iliac Vein (EIV) Common Femoral Vein Deep Femoral Vein Greater Saphenous Vein * Femoral Vein Popliteal Vein Small Saphenous Vein * Proximal Calf Veins (* superficial vessels) Right Leg: Negative for DVT Left Leg: Negative for DVT IMPRESSION: No evidence of deep venous thrombosis in both legs.
[2018-08-01] MEDS ORDERED: ACETAMINOPHEN TAB 325 MG TAB PO PRN (19:45)
[2018-08-01] MEDS: FUROSEMIDE 10 MG/ML 4 ML VIAL IV SCH (20:23)
[2018-08-01] MEDS: ACETAMINOPHEN TAB 325 MG TAB PO PRN (20:25)
[2018-08-02] MEDS: FUROSEMIDE 10 MG/ML 4 ML VIAL IV SCH ×2 (02:22→19:09)
[2018-08-02] MEDS: HYDROcodone/APAP 7.5-325MG 1 EACH TAB PO PRN ×4 (03:18→21:24)
[2018-08-02 03:43] VITALS: BMI 20.7
[2018-08-02] MEDS ORDERED: Potassium Replacement Protocol 1 EACH MISC MISCELLANE PRN ×2 (08:17→09:11)
[2018-08-02] MEDS: ENOXAPARIN 40 MG/0.4 ML SYRINGE SQ SCH (08:53)
[2018-08-02] MEDS ORDERED: POTASSIUM CHLORIDE ER 20 MEQ TAB.ER PO SCH (09:00)
[2018-08-02] MEDS ORDERED: SUMAtriptan SUCCINATE 50 MG TAB PO PRN (09:59)
[2018-08-02] MEDS: POTASSIUM CHLORIDE 10 MEQ in WATER FOR INJECTION 1 100ML.BAG IVPB SCH ×4 (10:09→16:46)
--- NOTE | 2018-08-02 10:27 | P.CRDCN ---
History of Present Illness History of present illness: This is a pleasant 72-year-old female past medical history significant for atrial fibrillation not on usp anticoagulation, permanent pacemaker implantation secondary to tachybradycardia syndrome, hypertension, gastroesophageal reflux disease and fibromyalgia. She follows in the office with Dr. Penn. We have been asked to see her in consultation because she is known to was. She apparently presented to the emergency department with symptoms of lower extremity edema. She states for the previous week she has noticed increased swelling of her legs and has been taking an increased dose of her Lasix. She also complains of generalized weakness, fatigue and dizziness. Upon arrival her potassium was noted to be 2.8. She denies symptoms of shortness of breath, chest pain, nausea, vomiting or diaphoresis. She is seen and examined resting comfortably laying flat in bed in no acute distress. She states she is not on long-term anticoagulation by choice and she does not wish to be as is recommended. Laboratory data reviewed, WBC 5.7, hemoglobin 12.8, platelets 284, sodium 142, repeat potassium this morning 3.0, creatinine 0.78, magnesium 1.7, cardiac enzymes negative 3, NT proBNP 338. She has been started on IV Lasix 40 mg 3 times a day per the emergency department. Most recently the office she underwent a Lexiscan stress test 06/17/2018 that was negative for reversible cardiac ischemia. She also had an echocardiogram in March 2018 that revealed preserved left ventricular systolic function with ejection fraction 55%, severely dilated left atrium, mild mitral regurgitation and mild aortic regurgitation. She underwent cardiac catheterization in 2002 revealing normal coronary arteries with no obstructive disease. At the time of my exam: CONSTITUTIONAL: Denies fever. Denies chills. EYES: Denies blurred vision. Denies vision changes. Denies eye pain. EARS, NOSE, MOUTH & THROAT: Denies headache. Denies sore throat. Denies ear pain. CARDIOVASCULAR: Denies chest pain. Denies shortness of breath. Denies orthopnea. Denies PND. Denies palpitations. RESPIRATORY: Denies cough. GASTROINTESTINAL: Denies abdominal pain. Denies diarrhea. Denies constipation. Denies nausea. Denies vomiting. MUSCULOSKELETAL: Denies myalgias. INTEGUMENTARY: Denies pruitis. Denies rash. NEUROLOGIC: Denies numbness. Denies tingling. Denies weakness. PSYCHIATRIC: Denies anxiety. Denies depression. ENDOCRINE: Complains of fatigue and generalized weakness.. Denies weight change. Denies polydipsia. Denies polyurina. GENITOURINARY: Denies burning, hematuria or urgency with micturation. HEMATOLOGIC: Denies history of anemia. Denies bleeding. Blood pressure 136/80 heart rate 73 afebrile maintaining oxygen saturation on room air GENERAL: This is a 72-year-old female in no apparent distress at the time of my examination. HEENT: Head is atraumatic, normocephalic. Pupils are equal, round. Sclerae anicteric. Conjunctivae are clear. Mucous membranes of the mouth are moist. Neck is supple. There is no jugular venous distention. No carotid bruit is heard. LUNGS: Clear to auscultation no wheezes, rales or rhonchi. No chest wall tenderness is noted on palpation or with deep breathing. HEART: Regular rate and rhythm with systolic ejection murmur at the left sternal border, no rubs or gallops. S1 and S2 heard. ABDOMEN: Soft, nontender. Bowel sounds are heard. No organomegaly noted. EXTREMITIES: No evidence of peripheral edema and no calf tenderness noted. VASCULAR: Radial and dorsalis pedis pulses palpated, no evidence of clubbing. NEUROLOGIC: Patient is awake, alert and oriented x3. ASSESSMENT Generalized weakness and fatigue Severe hypokalemia secondary to overdiuresis Bilateral lower extremity edema, nonpitting and not suggestive of heart failure. Bilateral lower extremity duplex is negative for DVT. Paroxysmal atrial fibrillation not on termite renewal inspector anticoagulation secondary to patient refusal. History of permanent pacemaker implantation secondary to tachybradycardia syndrome. PLAN There is no evidence of heart failure. Echocardiogram will be discontinued since she just had one in the office. Discontinue IV Lasix. Replace potassium per protocol. Ongoing medical management. Thank you kindly for this consultation. Nurse Practitioner note has been reviewed, I agree with a documented findings and plan of care. Patient was seen and examined. Past Medical History Past Medical History: Atrial Fibrillation, Blood Disorder, Coronary Artery Disease (CAD), Chest Pain / Angina, Fibromyalgia, GERD/Reflux, GI Bleed, Hypertension, Myocardial Infarction ([place]), Musculoskeletal Disorder, Osteoarth ritis (OA), Thyroid Disorder Additional Past Medical History / Comment(s): Pacemaker [facility] in June 2016 for Syncopy/Tachybrady syndrome Paroxysmal AFib, has had RVR. RHEUMATIC FEVER; H eart Murmur. chronic back, dee shoulder pain. SEVERE OSTEOPROS,Vertigo,DJD. GI ulcers, esophagitis/esophageal stricture. Last Myocardial Infarction Date:: 2002 History of Any Multi-Drug Resistant Organisms: None Reported Past Surgical History: Appendectomy, Cardiac Ablation, Ear Surgery, Heart Catheterization, Hysterectomy, Orthopedic Surgery, Pacemaker, Tonsillectomy Additional Past Surgical History / Comment(s): ORIF LEFT LOWER ARM, HAS HARDWARE. Numerous DILATATION OF ESOPHAGUS-recently done in 06/2016 at [facility] pt stated bx were neg, colonoscopy. Pacemaker (ADAPTA) placed 07/07 at [facility]. Cardiac Cath in 2002. Bilateral stapedectomies. CARDIAC ABLATION 09/2016. Past Anesthesia/Blood Transfusion Reactions: Family History of Problems w/ Anesthesia, Motion Sickness, Postoperative Nausea & Vomiting (PONV) Additional Past Anesthesia/Blood Transfusion Reaction / Comment(s): no problems with prior blood transfusion. BROTHER HAS PONV. Type of Cardiac Device: Permanent Pacemaker Device Placement Date:: 06/2016 Past Psychological History: No Psychological Hx Reported Additional Psychological History / Comment(s): DENIES ANY HX OF PROBLEM Smoking Status: Never smoker Past Alcohol Use History: None Reported Additional Past Alcohol Use History / Comment(s): Lives alone Past Drug Use History: None Reported - Past Family History Brother(s) Family Medical History: Cancer Additional Family Medical History / Comment(s): throat Father Family Medical History: Pneumonia Additional Family Medical History / Comment(s): EMPHYSEMA Mother Family Medical History: COPD, Rheumatoid Arthritis (RA) Additional Family Medical History / Comment(s): EMPHYSEMA Medications and Allergies Home Medications Medication Instructions Recorded Confirmed Type SUMAtriptan SUCCINATE [Imitrex] 50 mg PO BID PRN 02/15/16 08/01/18 History Levothyroxine Sodium [Synthroid] 75 mcg PO DAILY 03/01/17 08/01/18 History Potassium Chloride [Klor-Con 40 meq PO BID 03/01/17 08/01/18 History Sprinkle] Pantoprazole Sodium [Protonix] 40 mg PO DAILY 04/25/17 08/01/18 History Ergocalciferol (Vitamin D2) 50,000 unit PO TH 01/14/18 08/01/18 History [Vitamin D2] Furosemide [Lasix] 40 mg PO BID 01/14/18 08/01/18 History Magnesium Oxide [Mag-Ox] 400 mg PO DAILY 01/14/18 08/01/18 History Methocarbamol [Robaxin] 750 mg PO TID 01/14/18 08/01/18 History Sucralfate [Carafate] 1 gm PO ACHS 01/14/18 08/01/18 History Cyanocobalamin [Vitamin B-12] 500 mcg PO DAILY 08/01/18 08/01/18 History Pyridoxine HCl (Vitamin B6) 100 mg PO DAILY 08/01/18 08/01/18 History [Vitamin B-6] Allergies Allergy/AdvReac Type Severity Reaction Status Date / Time adhesive Allergy RASH FROM Verified 08/01/18 15:20 EKG STICKERS celecoxib [From Celebrex] Allergy Rash/Hives Verified 08/01/18 15:20 sertraline HCl [From Zoloft] Allergy Rash/Hives Verified 08/01/18 15:20 sulfamethoxazole Allergy Anaphylaxis Verified 08/01/18 15:20 [From Bactrim] trimethoprim [From Bactrim] Allergy Anaphylaxis Verified 08/01/18 15:20 Physical Exam Vitals: Vital Signs Temp Pulse Pulse Resp BP BP Pulse Ox 08/02/18 08:00 97.9 F 73 18 136/80 91 L 08/02/18 03:34 97.5 F L 64 16 117/74 92 L 08/02/18 01:54 97.5 F L 79 16 165/98 99 08/01/18 23:30 65 18 118/79 98 08/01/18 22:30 59 L 16 93 L 08/01/18 21:30 86 116/72 95 08/01/18 21:00 63 15 103/93 96 08/01/18 20:30 69 16 105/76 98 08/01/18 20:00 64 18 95 08/01/18 19:30 73 11 L 08/01/18 19:00 75 19 98 08/01/18 18:30 145/75 08/01/18 18:00 77 16 144/77 98 08/01/18 17:30 74 18 97 08/01/18 17:00 77 18 08/01/18 16:39 66 08/01/18 16:31 66 08/01/18 16:30 78 24 140/78 08/01/18 16:00 68 16 153/83 100 08/01/18 15:30 71 18 139/93 96 08/01/18 15:22 18 08/01/18 12:40 97.8 F 85 22 144/78 96 Results 08/01/18 15:30 08/02/18 03:36 Cardiac Enzymes 08/01/18 08/01/18 08/01/18 Range/Units 14:26 16:00 21:16 AST 67 H (14-36) U/L Troponin I <0.012 <0.012 (0.000-0.034) ng/mL 08/02/18 Range/Units 03:36 AST (14-36) U/L Troponin I <0.012 (0.000-0.034) ng/mL Coagulation 08/01/18 08/01/18 Range/Units 14:26 14:26 PT 9.8 (9.0-12.0) sec APTT 24.8 (22.0-30.0) sec CBC 08/01/18 Range/Units 15:30 WBC 5.7 (3.8-10.6) k/uL RBC 4.29 (3.80-5.40) m/uL Hgb 12.8 (11.4-16.0) gm/dL Hct 40.6 (34.0-46.0) % Plt Count 284 (150-450) k/uL Comprehensive Metabolic Panel 08/01/18 08/02/18 Range/Units 14:26 03:36 Sodium 143 142 (137-145) mmol/L Potassium 2.8 L 3.0 L (3.5-5.1) mmol/L Chloride 99 102 (98-107) mmol/L Carbon Dioxide 33 H 32 H (22-30) mmol/L BUN 12 9 (7-17) mg/dL Creatinine 0.91 0.78 (0.52-1.04) mg/dL Glucose 112 H 122 H (74-99) mg/dL Calcium 9.1 8.0 L (8.4-10.2) mg/dL AST 67 H (14-36) U/L ALT 44 (9-52) U/L Alkaline Phosphatase 78 (38-126) U/L Total Protein 7.9 (6.3-8.2) g/dL Albumin 4.4 (3.5-5.0) g/dL Current Medications Generic Name Dose Route Start Last Admin Trade Name Freq PRN Reason Stop Dose Admin Acetaminophen 325 - 650 mg 08/01/18 20:00 08/01/18 20:25 Tylenol Tab PO 650 mg Q6HR PRN Administration Fever and/ or Pain Hydrocodone Bitart/Acetaminophen 1 each 08/02/18 03:03 08/02/18 03:18 [place] 7.5-325 PO 1 each Q6H PRN Administration Pain Enoxaparin Sodium 40 mg 08/02/18 09:00 Lovenox SQ DAILY INOCENCIO 08/01/18 15:30 08/02/18 03:36
[2018-08-02] MEDS: ONDANSETRON 4 MG/2 ML VIAL IVP PRN (10:32)
[2018-08-02] MEDS: SUCRALFATE 1 GM TAB PO SCH ×3 (12:15→21:24)
--- NOTE | 2018-08-02 15:36 | XR ---
EXAMINATION TYPE: XR chest 2V DATE OF EXAM: 08/02/2018 COMPARISON: 03/30/2018 TECHNIQUE: PA and lateral views submitted. HISTORY: Shortness of breath FINDINGS: The lungs are clear and there is no pneumothorax, pleural effusion, or focal pneumonia. Cardiac dev ice seen and there is a calcified lymph nodes. Biapical pleural thickening. Appears to be calcificati ons within the abdomen and evidence of surgical clips. Interstitium slightly coarsened. Diffuse osteo penia with hyperinflation suggestive of COPD. There is degenerative disc disease and compression defo rmities of the thoracic spine with evidence of previous vertebral plasty. IMPRESSION: 1. Stable prominence of interstitium may represent chronic interstitial lung disease or congestion. N o acute consolidation..
--- NOTE | 2018-08-02 15:37 | HP ---
HISTORY AND PHYSICAL DATE OF ADMISSION: 08/01/2018 DATE OF SERVICE: 08/02/2018 PRESENTING COMPLAINT: Swelling of the legs. HISTORY OF PRESENTING COMPLAINT: This is a very pleasant 72-year-old patient of Dr. Wray. Chronic stable medical conditions include chronic esophagitis, peptic ulcer disease, chronic essential hypertension, primary osteoarthritis of multiple joints bilateral, depression not otherwise specified, hypothyroidism, esophageal dysmotility, anxiety not otherwise specified, chronic anemia, esophageal constriction with recent dilatation. Patient did have that done at [facility]. Patient presents with increasing swelling of both lower extremities for about 3-4 days. Denies any cough. No chest pain. No fever and chills. Slight shortness of breath. Doppler ultrasounds done in the ER, negative for DVT. REVIEW OF SYSTEMS: CONSTITUTIONAL: Tired. HEENT: None. RESPIRATORY: Slight shortness of breath. CARDIOVASCULAR: None. GASTROINTESTINAL: As above. GENITOURINARY: Denied. MUSCULOSKELETAL: Arthritic pain in many joints and chronic low back pain. DERMATOLOGICAL: None. HEMATOLOGICAL: None. PSYCHIATRY: Anxiety. NEUROLOGICAL: None. PAST MEDICAL HISTORY: Atrial fibrillation, fibromyalgia, GERD, GI bleed, hypertension, osteoarthritis, hypothyroid, pacemaker for tachy-meng syndrome, paroxysmal atrial fibrillation, severe osteoporosis, GI also has esophageal stricture, esophagitis. PAST SURGICAL HISTORY: Appendectomy, cardiac ablation, ear surgery, pacemaker, ORIF of the left lower arm, numerous dilatation of the esophagus, pacemaker in 2017, bilateral , cardiac ablation, permanent pacemaker. SOCIAL HISTORY: Does not smoke or drink alcohol. Lives by herself. FAMILY HISTORY: Cancer. HOME MEDICATIONS: 1. Vitamin B6 one hundred mg p.o. daily. 2. Vitamin B12 five hundred mcg p.o. daily. 3. Carafate 1 g q.a.c. and at bedtime. 4. Imitrex 50 mg b.i.d. p.r.n. 5. Potassium 40 mEq p.o. b.i.d. 6. Protonix 40 mg p.o. daily. 7. Robaxin 750 mg p.o. t.i.d. 8. Magnesium oxide 400 mg p.o. daily. 9. Synthroid 75 mcg p.o. daily. 10.Lasix 40 mg p.o. b.i.d. 11.Vitamin D2 fifty thousand units on . ALLERGIES: To ADHESIVE, CELEBREX, ZOLOFT, BACTRIM. PHYSICAL EXAMINATION: Vital signs on presentation, temperature 97.8, pulse 85, respiration 22, blood pressure 140/78, pulse ox 96% on room air. GENERAL APPEARANCE: Average build, sitting at the edge of the bed, a bit tired. BMI 20.8. EYES: Pupils equal, conjunctivae normal. HEENT: External appearance of nose and ears normal, oral cavity normal. NECK: JVD not raised. Mass not palpable. RESPIRATOR: Effort normal. LUNGS: Fair entry. CARDIOVASCULAR: First and second sounds are normal, edema present. ABDOMEN: Soft, nontender, liver and spleen not palpable. LYMPHATICS: No lymph node palpable. PSYCHIATRY: Alert and oriented x3. Mood and affect anxious-appearing. MUSCULOSKELETAL: Evidence of osteoarthritis, especially in the hands and knees. SOCIAL HISTORY: Patient lives by herself. No smoking. No alcohol. INVESTIGATIONS: White count 5.7, hemoglobin 12.8, platelets 284. Potassium 2.8, BUN 12, creatinine 0.91. Troponin less than 0.012. ProBNP 338. Doppler ultrasound negative for DVT. ASSESSMENT: 1. This is a patient who presented with bilateral lower extremity swelling, there is no clear evidence of congestive heart failure. That could be from bilateral lower extremity venous insufficiency, less likely cause to ruled out is maybe IVC thrombosis, though extremely unlikely. 2. Hypokalemia. 3. Chronic esophagitis. 4. Chronic esophageal stricture with recent dilatation. 5. Peptic ulcer disease. 6. Essential hypertension. 7. Primary osteoarthritis of multiple joints bilateral. 8. Depression, not otherwise specified. 9. Hypothyroidism. 10.Chronic fibromyalgia. 11.Paroxysmal atrial fibrillation with a pacemaker. PLAN: Will get a chest x-ray. Cardiology was consulted. Home medications will be resumed. Will get a CT scan of the abdomen with contrast to look at the IVC too. Otherwise, patient will be given a stress of the lower extremity. Care was discussed with the patient, questions were answered. MMODL / IJN: [id number] /
[2018-08-02] MEDS: METHOCARBAMOL 750 MG TAB PO SCH ×2 (16:01→21:24)
[2018-08-02] MEDS: ACETAMINOPHEN TAB 325 MG TAB PO PRN (16:55)
--- NOTE | 2018-08-02 17:06 | CT ---
EXAMINATION TYPE: CT abdomen pelvis w con DATE OF EXAM: 08/02/2018 HISTORY: Leg swelling CT DLP: 477.6mGycm Automated Exposure Control for Dose Reduction was Utilized. CONTRAST: CT scan of the abdomen and pelvis is performed with IV Contrast, patient injected with 100 mL of Isov ue 300. COMPARISON: 03/05/2017. FINDINGS: LUNG BASES: Mild emphysematous changes are seen at the lung bases. There is a small hiatal hernia. LIVER/GB: The liver is enlarged extending beyond the iliac crest. There is minimal intrahepatic and m oderate biliary ductal dilatation, likely on the basis of postcholecystectomy. PANCREAS: No significant abnormality is seen. SPLEEN: No significant abnormality is seen. ADRENALS: No significant abnormality is seen. KIDNEYS: There are bilateral too small to accurately characterize renal lesions. No hydronephrosis or nephrolithiasis. BOWEL: There are numerous loops of fluid-filled prominent but nondilated small bowel and a mild degre e of retained colonic stool. Decompression of the left hemicolon may relate to peristalsis and/or col onic spasm although there is subtle fat stranding and mild colitis is a possibility. LYMPH NODES: No greater than 1cm abdominal or pelvic lymph nodes are appreciated. OSSEOUS STRUCTURES: Chronic compression deformity of the L4 vertebral body is seen minimal degenerati ve changes of the spine. OTHER: Delayed imaging was obtained to assess the inferior vena cava. No evidence of thrombosis withi n the inferior vena cava is appreciated. IMPRESSION: 1. No evidence of vena cava thrombosis or occlusion. 2. Small bowel ileus and descending colonic mild bowel wall thickening that may represent colitis or simply nondistention. Oral contrast could further evaluate the bowel if there is clinical concern. 3. Chronic compression deformity of L4 vertebral body.
[2018-08-03] MEDS: LEVOTHYROXINE 75 MCG TAB PO SCH (05:51)
[2018-08-03] MEDS: HYDROcodone/APAP 7.5-325MG 1 EACH TAB PO PRN ×3 (05:52→18:42)
[2018-08-03] MEDS: CYANOCOBALAMIN 500 MCG TAB PO SCH (08:15)
[2018-08-03] MEDS: ONDANSETRON 4 MG/2 ML VIAL IVP PRN ×2 (08:15→20:23)
[2018-08-03] MEDS: MAGNESIUM OXIDE 400 MG TAB PO SCH (08:15)
[2018-08-03] MEDS: PANTOPRAZOLE 40 MG TABLET PO SCH (08:15)
[2018-08-03] MEDS: PYRIDOXINE 50 MG TAB PO SCH (08:15)
[2018-08-03] MEDS: ENOXAPARIN 40 MG/0.4 ML SYRINGE SQ SCH (08:15)
[2018-08-03] MEDS: METHOCARBAMOL 750 MG TAB PO SCH ×3 (08:15→20:23)
[2018-08-03] MEDS: SUCRALFATE 1 GM TAB PO SCH ×4 (08:16→20:23)
--- NOTE | 2018-08-03 10:15 | P.GSCN ---
History of Present Illness Consult date: 08/03/18 Reason for Consult: Ileus History of present illness: Patient was also the hospital with complaints of lower extremity swelling. Patient also having complaints of nausea and had an episode of vomiting while in the emergency department. Some vague chronic left upper quadrant pain. Patient underwent a recent upper endoscopy with dilation dictation of an esophageal stricture at [facility]. Patient is known to Dr. Goss from revious hiatal hernia repair. Patient is a history of previous feeding tube as well. Patient states that when she eats she has pain in the left upper abdomen at times. Appetite is diminished. Last bowel movement was yesterday. Currently on a regular diet. Patient had a CAT scan of the abdomen and pelvis which revealed mild ileus. No other discrete abnormalities identified to explain her symptoms. Patient apparently is taking an antifungal after her upper endoscopy. Review of Systems The patient denies any acute changes in vision or hearing, no chest pain or shortness of breath, no dysuria or hematuria, no headache, no runny nose, no rectal bleeding or melena, no unexplained weight loss Past Medical History Past Medical History: Atrial Fibrillation, Blood Disorder, Coronary Artery Disease (CAD), Chest Pain / Angina, Fibromyalgia, GERD/Reflux, GI Bleed, Hypertension, Myocardial Infarction ([place]), Musculoskeletal Disorder, Osteoarthritis (OA), Thyroid Disorder Additional Past Medical History / Comment(s): Pacemaker [facility] in June 2016 for Syncopy/Tachybrady syndrome Paroxysmal AFib, has had RVR. RHEUMATIC FEVER; H eart Murmur. chronic back, dee shoulder pain. SEVERE OSTEOPROS,Vertigo,DJD. GI ulcers, esophagitis/esophageal stricture. Last Myocardial Infarction Date:: 2002 History of Any Multi-Drug Resistant Organisms: None Reported Past Surgical History: Appendectomy, Cardiac Ablation, Ear Surgery, Heart Catheterization, Hysterectomy, Orthopedic Surgery, Pacemaker, Tonsillectomy Additional Past Surgical History / Comment(s): ORIF LEFT LOWER ARM, HAS HARDWARE. Numerous DILATATION OF ESOPHAGUS-recently done in 06/2016 at [facility] pt stated bx were neg, colonoscopy. Pacemaker (ADAPTA) placed 07/07 at [facility]. Cardiac Cath in 2002. Bilateral stapedectomies. CARDIAC ABLATION 09/2016. Past Anesthesia/Blood Transfusion Reactions: Family History of Problems w/ Anesthesia, Motion Sickness, Postoperative Nausea & Vomiting (PONV) Additional Past Anesthesia/Blood Transfusion Reaction / Comm: no problems with prior blood transfusion. BROTHER HAS PONV. Type of Cardiac Device: Permanent Pacemaker Device Placement Date:: 06/2016 Past Psychological History: No Psychological Hx Reported Additional Psychological History / Comment(s): DENIES ANY HX OF PROBLEM Smoking Status: Never smoker Past Alcohol Use History: None Reported Additional Past Alcohol Use History / Comment(s): Lives alone Past Drug Use History: None Reported - Past Family History Brother(s) Family Medical History: Cancer Additional Family Medical History / Comment(s): throat Father Family Medical History: Pneumonia Additional Family Medical History / Comment(s): EMPHYSEMA Mother Family Medical History: COPD, Rheumatoid Arthritis (RA) Additional Family Medical History / Comment(s): EMPHYSEMA Medications and Allergies Home Medications Medication Instructions Recorded Confirmed Type SUMAtriptan SUCCINATE [Imitrex] 50 mg PO BID PRN 02/15/16 08/01/18 History Levothyroxine Sodium [Synthroid] 75 mcg PO DAILY 03/01/17 08/01/18 History Potassium Chloride [Klor-Con 40 meq PO BID 03/01/17 08/01/18 History Sprinkle] Pantoprazole Sodium [Protonix] 40 mg PO DAILY 04/25/17 08/01/18 History Ergocalciferol (Vitamin D2) 50,000 unit PO TH 01/14/18 08/01/18 History [Vitamin D2] Furosemide [Lasix] 40 mg PO BID 01/14/18 08/01/18 History Magnesium Oxide [Mag-Ox] 400 mg PO DAILY 01/14/18 08/01/18 History Methocarbamol [Robaxin] 750 mg PO TID 01/14/18 08/01/18 History Sucralfate [Carafate] 1 gm PO ACHS 01/14/18 08/01/18 History Cyanocobalamin [Vitamin B-12] 500 mcg PO DAILY 08/01/18 08/01/18 History Pyridoxine HCl (Vitamin B6) 100 mg PO DAILY 08/01/18 08/01/18 History [Vitamin B-6] Allergies Allergy/AdvReac Type Severity Reaction Status Date / Time adhesive Allergy RASH FROM Verified 08/01/18 15:20 EKG STICKERS celecoxib [From Celebrex] Allergy Rash/Hives Verified 08/01/18 15:20 sertraline HCl [From Zoloft] Allergy Rash/Hives Verified 08/01/18 15:20 sulfamethoxazole Allergy Anaphylaxis Verified 08/01/18 15:20 [From Bactrim] trimethoprim [From Bactrim] Allergy Anaphylaxis Verified 08/01/18 15:20 Surgical - Exam Vital Signs Temp Pulse Resp BP Pulse Ox 97.8 F 85 22 144/78 96 08/01/18 12:40 08/01/18 12:40 08/01/18 12:40 08/01/18 12:40 08/01/18 12:40 Physical exam: General: Well-developed, well-nourished HEENT: Normocephalic, sclerae nonicteric Abdomen: Mild left upper quadrant tenderness, nondistended Extremities: Bilateral lower extremity edema Neuro: Alert and oriented Results - Labs 08/01/18 15:30 08/02/18 17:12 Diabetes panel 08/02/18 Range/Units 17:12 Potassium 4.0 (3.5-5.1) mmol/L Pituitary panel 08/02/18 Range/Units 17:12 Potassium 4.0 (3.5-5.1) mmol/L Adrenal panel 08/02/18 Range/Units 17:12 Potassium 4.0 (3.5-5.1) mmol/L Assessment and Plan (1) Abdominal pain Narrative/Plan: Patient with left upper quadrant abdominal pain and intermittent nausea and vomiting. Will switch diet to full liquids. Continue antiacids. Continue antifungal's. We'll follow with you. Current Visit: No Status: Acute Code(s): R10.9 - UNSPECIFIED ABDOMINAL PAIN SNOMED Code(s): 04501425
[2018-08-03] MEDS ORDERED: CLOTRIMAZOLE TROCHE 10 MG TROCHE MUCOUS MEM SCH (11:00)
[2018-08-03] MEDS: FLUCONAZOLE 100 MG TAB PO SCH (13:40)
[2018-08-03] MEDS: ACETAMINOPHEN TAB 325 MG TAB PO PRN (15:30)
[2018-08-03] MEDS: FUROSEMIDE 40 MG TAB PO SCH (15:30)
[2018-08-04] MEDS: HYDROcodone/APAP 7.5-325MG 1 EACH TAB PO PRN ×2 (01:00→08:33)
[2018-08-04] MEDS: LEVOTHYROXINE 75 MCG TAB PO SCH (06:29)
[2018-08-04 07:21] LABS: Anisocytosis Moderate; Basophils % (A) 1 %; Eosinophils # (A) 0.3 k/uL (0-0.7); Eosinophils % (A) 7 %; HCT 39.9 % (34.0-46.0); HGB 12.8 gm/dL (11.4-16.0); Hypochromasia Slight; Lymphocytes # (A) 1.5 k/uL (1.0-4.8); Lymphocytes % (A) 39 %; MCH 30.8 pg (25.0-35.0); MCHC 32.2 g/dL (31.0-37.0); MCV 95.8 fL (80.0-100.0); Macrocytosis Slight; Mean Platelet Volume 7.2; Monocytes # (A) 0.2 k/uL (0-1.0); Monocytes % (A) 6 %; Neutrophils # (A) 1.6 k/uL (1.3-7.7); Neutrophils % (A) 43 %; Platelet Count 266 k/uL (150-450); RBC 4.16 m/uL (3.80-5.40); RDW 21.5 % (11.5-15.5); WBC 3.8 k/uL (3.8-10.6)
[2018-08-04 07:29] LABS: African American GFR (CKD) >90 (>60 ml/min/1.73 sqM); Anion Gap 5 mmol/L; Blood Urea Nitrogen 6 mg/dL (7-17); Calcium 8.6 mg/dL (8.4-10.2); Carbon Dioxide 27 mmol/L (22-30); Chloride 106 mmol/L (98-107); Glucose 101 mg/dL (74-99); Potassium 2.9 mmol/L (3.5-5.1); Sodium 138 mmol/L (137-145)
[2018-08-04] MEDS: CYANOCOBALAMIN 500 MCG TAB PO SCH (08:33)
[2018-08-04] MEDS: PANTOPRAZOLE 40 MG TABLET PO SCH (08:33)
[2018-08-04] MEDS: ENOXAPARIN 40 MG/0.4 ML SYRINGE SQ SCH (08:33)
[2018-08-04] MEDS: POTASSIUM CHLORIDE ER 20 MEQ TAB.ER PO SCH ×3 (08:34→11:20)
[2018-08-04] MEDS: FLUCONAZOLE 100 MG TAB PO SCH (08:34)
[2018-08-04] MEDS: FUROSEMIDE 40 MG TAB PO SCH (08:34)
[2018-08-04] MEDS: METHOCARBAMOL 750 MG TAB PO SCH (08:34)
[2018-08-04] MEDS: MAGNESIUM OXIDE 400 MG TAB PO SCH (08:34)
[2018-08-04] MEDS: SUCRALFATE 1 GM TAB PO SCH ×2 (08:34→11:20)
[2018-08-04] MEDS: PYRIDOXINE 50 MG TAB PO SCH (08:35)
[2018-08-04] MEDS: ONDANSETRON 4 MG/2 ML VIAL IVP PRN (09:35)
--- NOTE | 2018-08-04 10:03 | P.PN ---
Subjective Progress Note Date: 08/04/18 Principal diagnosis: Ileus Patient doing better today. Tolerating her diet this morning. No vomiting. She did have a bowel movement. Gas remains low at 2.9. That is being sup plemented. She would like to go home today. Objective - Vital Signs Vital signs: Vital Signs Temp 97.6 F 08/04/18 08:00 Pulse 66 08/04/18 08:00 Resp 16 08/04/18 08:00 BP 123/75 08/04/18 08:00 Pulse Ox 98 08/04/18 08:00 Intake & Output 08/03/18 08/04/18 08/04/18 18:59 06:59 18:59 Other: Voiding Method Toilet Toilet Toilet # Voids 1 - Exam Abdomen: Soft, nontender, nondistended - Labs CBC & Chem 7: 08/04/18 06:58 08/04/18 06:58 Labs: Abnormal Lab Results - Last 24 Hours (Table) 08/04/18 08/04/18 Range/Units 06:58 06:58 RDW 21.5 H (11.5-15.5) % Potassium 2.9 L (3.5-5.1) mmol/L BUN 6 L (7-17) mg/dL Glucose 101 H (74-99) mg/dL Assessment and Plan (1) Abdominal pain Narrative/Plan: Patient's ileus seems to be improving. Certainly the patient's electrolyte imbalance could be contributing. Continue to supplement potassium. Possible discharge later today per medicine. Follow-up with GI at [facility] regarding the patient's recurrent esophageal stricture and other abnormalities she states they found at the time of recent endoscopy. Current Visit: No Status: Acute Code(s): R10.9 - UNSPECIFIED ABDOMINAL PAIN SNOMED Code(s): 23882650
[2018-08-04 12:02] VITALS: BP 124/76; PULSE 69; RESP 14; TEMP 98.2
--- NOTE | 2018-08-04 12:33 | P.PN ---
Subjective Progress Note Date: 08/03/18 Principal diagnosis: Bilateral lower extremity swelling 72-year-old female with multiple medical issues coming in with a chief complaint of increased swelling of bilateral lower extremities for 3-4 days. Patient had a recent hospital stay at [facility] for the esophageal dysmotility and she had dilatation and was discharged on Diflucan for esophageal candidiasis. Patient has been getting IV Lasix for her lower extremity edema. She had bilateral lower extremity Doppler that was negative for DVT and a recent echo with normal ejection fraction. Today the patient is lying comfortably in the bed. She states that she is still has nausea but did not throw up. She also has mild epigastric pain. Her last bowel movement was couple of days back. Patient denies having any fevers chills or rigors. She complains of generalized weakness. She mentions that she was taking Diflucan and that she has not been getting it here. She is currently on nystatin swish and swallow. Patient still complains of lower extremity swelling but slowly getting better. Patient denies having any chest pain and difficulty in breathing. Patient's labs and medications have been reviewed Active Medications Acetaminophen (Tylenol Tab) 325 - 650 mg PO Q6HR PRN PRN Reason: Fever and/ or Pain Last Admin: 08/02/18 16:55 Dose: 650 mg Documented by: Hydrocodone Bitart/Acetaminophen ([place] 7.5-325) 1 each PO Q6H PRN PRN Reason: Pain Last Admin: 08/03/18 12:20 Dose: 1 each Documented by: Cyanocobalamin (Vitamin B-12) 500 mcg PO DAILY [facility] Last Admin: 08/03/18 08:15 Dose: 500 mcg Documented by: Enoxaparin Sodium (Lovenox) 40 mg SQ DAILY [facility] Last Admin: 08/03/18 08:15 Dose: 40 mg Documented by: Ergocalciferol (Vitamin D2) 50,000 unit PO TH [facility] Fluconazole (Diflucan) 200 mg PO DAILY [facility] Levothyroxine Sodium (Synthroid) 75 mcg PO DAILY@0630 [facility] Last Admin: 08/03/18 05:51 Dose: 75 mcg Documented by: Magnesium Oxide (Mag-Ox) 400 mg PO DAILY [facility] Last Admin: 08/03/18 08:15 Dose: 400 mg Documented by: Methocarbamol (Robaxin) 750 mg PO TID [facility] Last Admin: 08/03/18 08:15 Dose: 750 mg Documented by: Miscellaneous Information (Potassium Per Protocol) 1 each MISCELLANE DAILY PRN; Protocol PRN Reason: Per Protocol Ondansetron HCl (Zofran) 4 mg IVP Q6HR PRN PRN Reason: Nausea And Vomiting Last Admin: 08/03/18 08:15 Dose: 4 mg Documented by: Pantoprazole Sodium (Protonix) 40 mg PO AC-BRKFST [facility] Last Admin: 08/03/18 08:15 Dose: 40 mg Documented by: Pyridoxine HCl (Vitamin B-6) 100 mg PO DAILY [facility] Last Admin: 08/03/18 08:15 Dose: 100 mg Documented by: Sucralfate (Carafate) 1 gm PO ACHS [facility] Last Admin: 08/03/18 10:20 Dose: Not Given Documented by: Sumatriptan Succinate (Imitrex) 50 mg PO BID PRN PRN Reason: Migraine Headache Last Admin: 08/03/18 10:19 Dose: 50 mg Documented by: Objective - Vital Signs Vital signs: Vital Signs Temp 97.9 F 08/03/18 12:00 Pulse 69 08/03/18 12:00 Resp 16 08/03/18 12:00 BP 123/77 08/03/18 12:00 Pulse Ox 96 08/03/18 12:00 Intake & Output 08/02/18 08/03/18 08/03/18 18:59 06:59 18:59 Intake Total 480 Balance 480 Weight 49.895 kg 50.2 kg Intake: Oral 480 Other: Voiding Method Toilet Toilet Toilet # Voids 2 1 - Exam GEN. APPEARANCE: alert, in no apparent distress HEAD EXAM: atraumatic, normocephalic, normal inspection EYE EXAM: normal appearance, PERRL, EOMI. Absent: scleral icterus, conjunctival injection, periorbital swelling ENT EXAM: normal exam, mucous membranes moist NECK EXAM: normal inspection. Absent: tenderness, meningismus, full ROM, lymphadenopathy RESPIRATORY EXAM: normal lung sounds bilaterally. Absent: respiratory distress, wheezes, rales, rhonchi, stridor CARDIOVASCULAR EXAM: regular rate, normal rhythm, normal heart sounds. Absent: systolic murmur, diastolic murmur, rubs, gallop, clicks GI/ABDOMINAL EXAM: Mild epigastric tenderness. Normal bowel sounds. No guarding or rigidity EXTREMITIES EXAM: Mild pitting edema bilaterally. Varicose veins noted on bilateral lower extremities NEUROLOGICAL EXAM: alert, oriented X3, no focal neurological deficits PSYCHIATRIC EXAM: normal affect, normal mood SKIN EXAM: warm, dry, intact, normal color. Absent: rash - Labs CBC & Chem 7: 08/01/18 15:30 08/02/18 17:12 Assessment and Plan Assessment: ASSESSMENT Generalized fatigue weakness Severe hypokalemia Chronic bilateral lower extremity edema Esophageal candidiasis Esophageal stricture status post recent dilatation Peptic ulcer disease Essential hypertension Hypothyroidism Paroxysmal atrial fibrillation with a pacemaker Chronic fibromyalgia PLAN: Patient has been K+ supplements and her potassium is within normal limits. We will resume her home dose of Lasix. Patient has been restarted on Diflucan that she was supposed to complete for her henri esophagitis. Patient did not have a bowel movement for the past couple of days, computed tomography scan showing mild ileus. Surgery Dr. Palmer following the patient and conservative management for now. Further recommendations to follow depending on the progress of the patient.
[2018-08-08] MEDS ORDERED: ERGOCALCIFEROL 50,000 UNIT CAP PO SCH (09:00)
--- NOTE | 2018-09-02 19:19 | P.DS ---
Providers Date of admission: 08/01/18 15:53 Expected date of discharge: 08/04/18 Attending physician: Rich Wong Consults: 08/01/18 15:53 Consult Physician Routine Consulting Provider: Ellen Penn Consult Reason/Comments: known Do you want consulting provider notified?: Yes 08/02/18 17:57 Consult Physician Routine Consulting Provider: Grant Palmer Consult Reason/Comments: ileus Do you want consulting provider notified?: Yes Primary care physician: [facility] Course: Mrs. Marquez is a 72-year-old female who is a patient of Dr. Nguyen with chronic medical conditions including chronic esophagitis, essential hypertension, primary osteoarthritis of multiple joints, depression, hypothyroidism, esophageal dysmotility, chronic anemia admitted to the hospital with a chief complaint of increased swelling of both her lower extremities for about 3-4 days. Patient had a Doppler of bilateral lower extremities that was negative for DVT and a recent echo done which was showing normal ejection fraction. The patient has history of varicose veins. During the hospital course patient was given IV Lasix and showed significant improvement in her lower extremity edema. But the patient had some nausea and abdominal pain and so a CAT scan of the abdomen was done and showed ileus. Last night patient had a bowel movement and she was seen by Dr. Booth this morning and cleared for discharge. Patient was continued on Diflucan that she was given recently at [facility] for Miguel A esophageal candidiasis. This morning patient states that she is ready to go home. Patient denies having any more abdominal pain nausea or vomiting. She had her breakfast and tolerated it well. Patient's potassium has been low and is being supplemented. Once her potassium is about 3.5 the plan is to discharge the patient home. On physical exam Blood pressure is 120/76 saturating at 97% on room air, heart rate of 69, respiratory rate of 14, temperature 98.2. GEN. APPEARANCE: alert, in no apparent distress HEAD EXAM: atraumatic, normocephalic, normal inspection EYE EXAM: normal appearance, PERRL, EOMI. Absent: scleral icterus, conjunctival injection, periorbital swelling ENT EXAM: normal exam, mucous membranes moist NECK EXAM: normal inspection. Absent: tenderness, meningismus, full ROM, lymphadenopathy RESPIRATORY EXAM: normal lung sounds bilaterally. Absent: respiratory distress, wheezes, rales, rhonchi, stridor CARDIOVASCULAR EXAM: regular rate, normal rhythm, normal heart sounds. Absent: systolic murmur, diastolic murmur, rubs, gallop, clicks GI/ABDOMINAL EXAM: Mild epigastric tenderness. Normal bowel sounds. No guarding or rigidity EXTREMITIES EXAM: Mild pitting edema bilaterally. Varicose veins noted on bilateral lower extremities NEUROLOGICAL EXAM: alert, oriented X3, no focal neurological deficits PSYCHIATRIC EXAM: normal affect, normal mood SKIN EXAM: warm, dry, intact, normal color. Absent: rash Laboratory Last Values WBC 3.8 k/uL (3.8-10.6) 08/04/18 06:58 RBC 4.16 m/uL (3.80-5.40) 08/04/18 06:58 Hgb 12.8 gm/dL (11.4-16.0) 08/04/18 06:58 Hct 39.9 % (34.0-46.0) 08/04/18 06:58 MCV 95.8 fL (80.0-100.0) 08/04/18 06:58 MCH 30.8 pg (25.0-35.0) 08/04/18 06:58 MCHC 32.2 g/dL (31.0-37.0) 08/04/18 06:58 RDW 21.5 % (11.5-15.5) H 08/04/18 06:58 Plt Count 266 k/uL (150-450) 08/04/18 06:58 Neutrophils % 43 % 08/04/18 06:58 Lymphocytes % 39 % 08/04/18 06:58 Monocytes % 6 % 08/04/18 06:58 Eosinophils % 7 % 08/04/18 06:58 Basophils % 1 % 08/04/18 06:58 Neutrophils # 1.6 k/uL (1.3-7.7) 08/04/18 06:58 Lymphocytes # 1.5 k/uL (1.0-4.8) 08/04/18 06:58 Monocytes # 0.2 k/uL (0-1.0) 08/04/18 06:58 Eosinophils # 0.3 k/uL (0-0.7) 08/04/18 06:58 Basophils # 0.0 k/uL (0-0.2) 08/04/18 06:58 Hypochromasia Slight 08/04/18 06:58 Anisocytosis Moderate 08/04/18 06:58 Microcytosis Slight 08/01/18 15:30 Macrocytosis Slight 08/04/18 06:58 PT 9.8 sec (9.0-12.0) 08/01/18 14:26 INR 0.9 (<1.2) 08/01/18 14:26 APTT 24.8 sec (22.0-30.0) 08/01/18 14:26 Sodium 138 mmol/L (137-145) 08/04/18 06:58 Potassium 2.9 mmol/L (3.5-5.1) L 08/04/18 06:58 Chloride 106 mmol/L (98-107) 08/04/18 06:58 Carbon Dioxide 27 mmol/L (22-30) 08/04/18 06:58 Anion Gap 5 mmol/L 08/04/18 06:58 BUN 6 mg/dL (7-17) L 08/04/18 06:58 Creatinine 0.76 mg/dL (0.52-1.04) 08/04/18 06:58 Est GFR (CKD-EPI)AfAm >90 (>60 ml/min/1.73 sqM) 08/04/18 06:58 Est GFR (CKD-EPI)NonAf 80 (>60 ml/min/1.73 sqM) 08/04/18 06:58 Glucose 101 mg/dL (74-99) H 08/04/18 06:58 Calcium 8.6 mg/dL (8.4-10.2) 08/04/18 06:58 Magnesium 1.7 mg/dL (1.6-2.3) 08/01/18 14:26 Total Bilirubin 0.3 mg/dL (0.2-1.3) 08/01/18 14:26 AST 67 U/L (14-36) H 08/01/18 14:26 ALT 44 U/L (9-52) 08/01/18 14:26 Alkaline Phosphatase 78 U/L (38-126) 08/01/18 14:26 Troponin I <0.012 ng/mL (0.000-0.034) 08/02/18 03:36 NT-Pro-B Natriuret Pep 338 pg/mL 08/01/18 15:30 Total Protein 7.9 g/dL (6.3-8.2) 08/01/18 14:26 Albumin 4.4 g/dL (3.5-5.0) 08/01/18 14:26 DISCHARGE DIAGNOSIS Generalized fatigue weakness Severe hypokalemia Chronic bilateral lower extremity edema Esophageal candidiasis Esophageal stricture status post recent dilatation Peptic ulcer disease Essential hypertension Hypothyroidism Paroxysmal atrial fibrillation with a pacemaker Chronic fibromyalgia The patient is being discharged home in a stable condition. She is advised to complete her Diflucan course given at [facility]. He is advised to continue taking 40 mg of Lasix twice a day. She states that she has progression supplements at home so advised to continue taking them. Patient to follow-up with GI in her PCP in one week's period. More than 35 minutes spent towards the discharge dictation. Patient Condition at Discharge: Good Plan - Discharge Summary Discharge Rx Participant: No New Discharge Prescriptions: New Fluconazole [Diflucan] 200 mg PO DAILY tab Continue SUMAtriptan SUCCINATE [Imitrex] 50 mg PO BID PRN PRN Reason: Migraine Headache Levothyroxine Sodium [Synthroid] 75 mcg PO DAILY Potassium Chloride [Klor-Con Sprinkle] 40 meq PO BID Pantoprazole Sodium [Protonix] 40 mg PO DAILY Ergocalciferol (Vitamin D2) [Vitamin D2] 50,000 unit PO TH Furosemide [Lasix] 40 mg PO BID Magnesium Oxide [Mag-Ox] 400 mg PO DAILY Methocarbamol [Robaxin] 750 mg PO TID Sucralfate [Carafate] 1 gm PO ACHS Pyridoxine HCl (Vitamin B6) [Vitamin B-6] 100 mg PO DAILY Cyanocobalamin [Vitamin B-12] 500 mcg PO DAILY Discharge Medication List SUMAtriptan SUCCINATE [Imitrex] 50 mg PO BID PRN 02/15/16 [History] Levothyroxine Sodium [Synthroid] 75 mcg PO DAILY 03/01/17 [History] Potassium Chloride [Klor-Con Sprinkle] 40 meq PO BID 03/01/17 [History] Pantoprazole Sodium [Protonix] 40 mg PO DAILY 04/25/17 [History] Ergocalciferol (Vitamin D2) [Vitamin D2] 50,000 unit PO TH 01/14/18 [History] Furosemide [Lasix] 40 mg PO BID 01/14/18 [History] Magnesium Oxide [Mag-Ox] 400 mg PO DAILY 01/14/18 [History] Methocarbamol [Robaxin] 750 mg PO TID 01/14/18 [History] Sucralfate [Carafate] 1 gm PO ACHS 01/14/18 [History] Cyanocobalamin [Vitamin B-12] 500 mcg PO DAILY 08/01/18 [History] Pyridoxine HCl (Vitamin B6) [Vitamin B-6] 100 mg PO DAILY 08/01/18 [History] Fluconazole [Diflucan] 200 mg PO DAILY tab 08/04/18 [Rx] Follow up Appointment(s)/Referral(s): Elroy Wray DO [Primary Care Provider] - 1-2 days
== END 2018-08-04 14:27 | disposition home or self-care (01) ==
LOC: EC 12:31 → 1SOBS 15:53
PROVIDERS: ADMIT Hospitalist; ATTEND Hospitalist
DX: R53.1 Weakness (principal); R53.83 Other fatigue; R06.02 Shortness of breath; E87.8 Other disorders of electrolyte and fluid balance, not elsewhere classified; R60.0 Localized edema; K56.7 Ileus, unspecified; B37.81 Candidal esophagitis; M25.512 Pain in left shoulder; M25.511 Pain in right shoulder; R10.12 Left upper quadrant pain; R11.2 Nausea with vomiting, unspecified; M79.89 Other specified soft tissue disorders; R10.13 Epigastric pain; M81.0 Age-related osteoporosis without current pathological fracture; R42 Dizziness and giddiness; I11.0 Hypertensive heart disease with heart failure; I50.9 Heart failure, unspecified; I25.10 Atherosclerotic heart disease of native coronary artery without angina pectoris; M19.90 Unspecified osteoarthritis, unspecified site; K21.9 Gastro-esophageal reflux disease without esophagitis; M79.7 Fibromyalgia; I25.2 Old myocardial infarction; T50.2X5A Adverse effect of carbonic-anhydrase inhibitors, benzothiadiazides and other diuretics, initial encounter; E87.6 Hypokalemia; I48.0 Paroxysmal atrial fibrillation; T45.516A Underdosing of anticoagulants, initial encounter; F32.9 Major depressive disorder, single episode, unspecified; G89.29 Other chronic pain; M54.5 Low back pain; K27.9 Peptic ulcer, site unspecified, unspecified as acute or chronic, without hemorrhage or perforation; D64.9 Anemia, unspecified; M19.91 Primary osteoarthritis, unspecified site; E03.9 Hypothyroidism, unspecified; K22.2 Esophageal obstruction; F41.9 Anxiety disorder, unspecified; Z95.0 Presence of cardiac pacemaker; Z87.19 Personal history of other diseases of the digestive system; Z91.048 Other nonmedicinal substance allergy status; Z79.890 Hormone replacement therapy; Z79.899 Other long term (current) drug therapy; Z88.2 Allergy status to sulfonamides; Z88.8 Allergy status to other drugs, medicaments and biological substances; Z82.5 Family history of asthma and other chronic lower respiratory diseases; Z80.8 Family history of malignant neoplasm of other organs or systems; Z82.61 Family history of arthritis
CPT/HCPCS: 96365; 96366; 96372 ×3; 96375 ×2; 96376 ×3; 96361; 99285; 36415 ×2; 94642; 94760; 83880; 82570; 80053; 80048 ×3; 84156; 82728; 82040; 83540; 83550; 83735; 84100; 84132 ×2; 84550; 84484 ×2; 85025 ×2; 85610; 85730; 81003; 82306; 83970; 71046; 93970; 74177; G0378 ×4; J1940 ×2; J2405 ×3; J1650 ×3; J3480; Q9967

== ENCOUNTER → 2018-08-01 | Outpatient (CLI) | payer MEDICARE, OTHER ==
[2018-08-01 12:37] LABS: Appearance,Urine Clear (Clear); Bilirubin,Urine Negative (Negative); Blood,Urine Negative (Negative); Color,Urine Light Yellow; Glucose,Urine (UA) Negative (Negative); Ketones,Urine Negative (Negative); Leukocyte Esterase,Urine Negative (Negative); Nitrite,Urine Negative (Negative); PH, Urine 7.5 (5.0-8.0); Protein,Urine Negative (Negative); Specific Gravity,Urine 1.007 (1.001-1.035); Urobilinogen,Urine <2.0 mg/dL (<2.0)
[2018-08-01 13:04] LABS: Anisocytosis Moderate; Basophils # (A) 0.1 k/uL (0-0.2); Basophils % (A) 1 %; Eosinophils # (A) 0.4 k/uL (0-0.7); Eosinophils % (A) 6 %; HCT 41.4 % (34.0-46.0); HGB 12.4 gm/dL (11.4-16.0); Hypochromasia Marked; Lymphocytes # (A) 1.6 k/uL (1.0-4.8); Lymphocytes % (A) 25 %; MCH 29.4 pg (25.0-35.0); MCHC 29.9 g/dL (31.0-37.0); Macrocytosis Moderate; Mean Platelet Volume 6.7; Monocytes # (A) 0.3 k/uL (0-1.0); Monocytes % (A) 4 %; Neutrophils # (A) 3.7 k/uL (1.3-7.7); Neutrophils % (A) 61 %; Platelet Count 287 k/uL (150-450); RDW 21.7 % (11.5-15.5); WBC 6.1 k/uL (3.8-10.6)
[2018-08-01 13:12] LABS: MCV 98.6 fL (80.0-100.0)
[2018-08-01 18:51] LABS: Parathyroid Hormone Intact 198.8 pg/mL (14.0-72.0)
[2018-08-01 20:11] LABS: Iron Saturation 20.39 (12.00-45.00)
[2018-08-01 20:20] LABS: Vitamin D 25 Hydroxy 65.3 ng/mL (30.0-100.0)
[2018-08-01 20:44] LABS: Albumin 4.5 g/dL (3.80-4.90); Anion Gap 12.6 mmol/L (4.00-12.00); Carbon Dioxide 34.4 mmol/L (21.6-31.8); Magnesium 1.7 mg/dL (1.5-2.4); Potassium 2.8 mmol/L (3.5-5.5)
[2018-08-01 20:45] LABS: Phosphorus 2.7 mg/dL (2.4-5.1); Uric Acid 11.9 mg/dL (2.9-7.7)
[2018-08-01 20:48] LABS: Total Protein,Urine Random 5.3 mg/dL (0.0-13.5)
[2018-08-01 20:49] LABS: Creatinine,Urine Random 21.1 mg/dL
== END | disposition home or self-care (01) ==
LOC: LABWHC1 11:20
PROVIDERS: ATTEND Internal Medicine Nephrology
DX: N39.0 Urinary tract infection, site not specified (principal); N17.9 Acute kidney failure, unspecified; E55.9 Vitamin D deficiency, unspecified; E21.3 Hyperparathyroidism, unspecified; M10.9 Gout, unspecified; R80.9 Proteinuria, unspecified; D64.9 Anemia, unspecified
CPT/HCPCS: 36415; 80048; 81003; 82040; 82306; 82570; 82728; 83540; 83550; 83735; 83970; 84100; 84156; 84550; 85025

== ENCOUNTER → 2018-08-15 | Outpatient (CLI) | payer MEDICARE, OTHER ==
[2018-08-15 12:45] LABS: Anisocytosis Slight; Basophils # (A) 0.1 k/uL (0-0.2); Basophils % (A) 1 %; Eosinophils # (A) 0.1 k/uL (0-0.7); Eosinophils % (A) 1 %; HCT 48.2 % (34.0-46.0); HGB 15.2 gm/dL (11.4-16.0); Lymphocytes # (A) 0.8 k/uL (1.0-4.8); Lymphocytes % (A) 14 %; MCH 30.5 pg (25.0-35.0); MCHC 31.6 g/dL (31.0-37.0); MCV 96.6 fL (80.0-100.0); Macrocytosis Slight; Mean Platelet Volume 6.7; Monocytes # (A) 0.2 k/uL (0-1.0); Monocytes % (A) 3 %; Neutrophils # (A) 4.6 k/uL (1.3-7.7); Neutrophils % (A) 79 %; Platelet Count 414 k/uL (150-450); RBC 4.99 m/uL (3.80-5.40); RDW 19.8 % (11.5-15.5); WBC 5.8 k/uL (3.8-10.6)
[2018-08-15 20:06] LABS: Albumin 4.9 g/dL (3.80-4.90); Albumin/Globulin Ratio 1.69 (1.60-3.17); Anion Gap 10.4 mmol/L (4.00-12.00); Calcium 10.4 mg/dL (8.7-10.3); Carbon Dioxide 24.6 mmol/L (21.6-31.8); Globulin 2.9 g/dL (1.6-3.3); LDL Cholesterol,Calculated 134.2 mg/dL (0.0-131.0); Total Bilirubin 0.2 mg/dL (0.3-1.2); Total Protein 7.8 g/dL (6.2-8.2); VLDL Calculation 30.8 mg/dL (5.00-40.00)
[2018-08-15 20:24] LABS: Hepatitis C IgG Antibody Non-Reactive (Non-Reactive)
[2018-08-16 10:21] LABS: Potassium 6.8 mmol/L (3.5-5.5)
== END ==
LOC: LABWHC1 12:10
PROVIDERS: ATTEND Nurse Practitioner Family
DX: Z00.01 Encounter for general adult medical examination with abnormal findings (principal); E87.6 Hypokalemia; I48.91 Unspecified atrial fibrillation; E03.9 Hypothyroidism, unspecified; M81.0 Age-related osteoporosis without current pathological fracture; K21.0 Gastro-esophageal reflux disease with esophagitis; E78.5 Hyperlipidemia, unspecified
CPT/HCPCS: 36415; 80053; 80061; 82306; 82607; 82746; 84443; 85025; 86803

== ENCOUNTER → 2018-10-22 | Outpatient (CLI) | payer MEDICARE, OTHER ==
[2018-10-23 00:09] LABS: African American GFR (CKD) 58.9 (60.0-200.0); Albumin 4.7 g/dL (3.80-4.90); Albumin/Globulin Ratio 1.74 (1.60-3.17); Anion Gap 14.7 mmol/L (4.00-12.00); Calcium 9.8 mg/dL (8.7-10.3); Carbon Dioxide 26.3 mmol/L (21.6-31.8); Globulin 2.7 g/dL (1.6-3.3); Potassium 3.2 mmol/L (3.5-5.5); Total Bilirubin 0.4 mg/dL (0.3-1.2); Total Protein 7.4 g/dL (6.2-8.2)
== END | disposition home or self-care (01) ==
LOC: LABWHC1 16:47
PROVIDERS: ATTEND Internal Medicine Interventional Cardiology
DX: I10 Essential (primary) hypertension (principal)
CPT/HCPCS: 36415; 80053

== ENCOUNTER 2019-05-10 15:22 | Inpatient (IN) | payer MEDICARE, OTHER ==
[2019-05-10] MEDS ORDERED: MORPHINE SULFATE 4 MG/ML SYRINGE IV STA ×3 (15:40→18:57)
[2019-05-10] MEDS ORDERED: ONDANSETRON 4 MG/2 ML VIAL IVP STA (15:40)
[2019-05-10] MEDS ORDERED: SODIUM CHLORIDE 0.9% 1,000 ML IV STA ×2 (15:40→15:41)
--- NOTE | 2019-05-10 15:48 | ED ---
General Adult HPI - General Chief complaint: Abdominal Pain Stated complaint: groin pain Time Seen by Provider: 05/10/19 15:27 Source: patient, RN notes reviewed, old records reviewed Mode of arrival: EMS Limitations: no limitations - History of Present Illness Initial comments: 73-year-old female patient presents to ED for to complain of abdominal pain for which she describes as a painful left inguinal hernia. Patient reports that this hernia has been giving her pain for the last 6 weeks. 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 Patient has had multiple episodes of nausea and vomiting. She feels as if she is unable to reduce the hernia. This happened approximately 2 hours prior to presentation. Denies any other complaints at this time. Systemic: Pt denies fatigue, fever/chills, rash. Pt denies weakness, night sweats, weight loss. Neuro: Pt denies headache, visual disturbances, syncope or pre-syncope. HEENT: Pt denies ocular discharge or irritation, otalgia, rhinorrhea, pharyngitis or notable lymphadenopathy. Cardiopulmonary: Pt denies chest pain, SOB, heart palpitations, dyspnea on exertion. Abdominal/GI: Pt denies n/v/d. : Pt denies dysuria, burning w/ urination, frequency/urgency. Denies new onset urinary or bowel incontinence. MSK: Pt denies myalgia, loss of strength or function in extremities. Neuro: Pt denies new onset weakness, paresthesias. - Related Data Home Medications Medication Instructions Recorded Confirmed SUMAtriptan SUCCINATE [Imitrex] 50 mg PO BID PRN 02/15/16 08/01/18 Levothyroxine Sodium [Synthroid] 75 mcg PO DAILY 03/01/17 08/01/18 Potassium Chloride [Klor-Con 40 meq PO BID 03/01/17 08/01/18 Sprinkle] Pantoprazole Sodium [Protonix] 40 mg PO DAILY 04/25/17 08/01/18 Ergocalciferol (Vitamin D2) 50,000 unit PO TH 01/14/18 08/01/18 [Vitamin D2] Furosemide [Lasix] 40 mg PO BID 01/14/18 08/01/18 Magnesium Oxide [Mag-Ox] 400 mg PO DAILY 01/14/18 08/01/18 Methocarbamol [Robaxin] 750 mg PO TID 01/14/18 08/01/18 Sucralfate [Carafate] 1 gm PO ACHS 01/14/18 08/01/18 Cyanocobalamin [Vitamin B-12] 500 mcg PO DAILY 08/01/18 08/01/18 Pyridoxine HCl (Vitamin B6) 100 mg PO DAILY 08/01/18 08/01/18 [Vitamin B-6] Previous Rx's Medication Instructions Recorded Fluconazole [Diflucan] 200 mg PO DAILY tab 08/04/18 Allergies Allergy/AdvReac Type Severity Reaction Status Date / Time adhesive Allergy RASH FROM Verified 08/01/18 15:20 EKG STICKERS celecoxib [From Celebrex] Allergy Rash/Hives Verified 08/01/18 15:20 sertraline HCl [From Zoloft] Allergy Rash/Hives Verified 08/01/18 15:20 sulfamethoxazole Allergy Anaphylaxis Verified 08/01/18 15:20 [From Bactrim] trimethoprim [From Bactrim] Allergy Anaphylaxis Verified 08/01/18 15:20 Review of Systems ROS Statement: Those systems with pertinent positive or pertinent negative responses have been documented in the HPI. ROS Other: All systems not noted in ROS Statement are negative. Past Medical History Past Medical History: Atrial Fibrillation, Blood Disorder, Coronary Artery Disease (CAD), Chest Pain / Angina, Fibromyalgia, GERD/Reflux, GI Bleed, Hypertension, Myocardial Infarction ([place]), Musculoskeletal Disorder, Osteoarthritis (OA), Thyroid Disorder Additional Past Medical History / Comment(s): Pacemaker [facility] in June 2016 for Syncopy/Tachybrady syndrome Paroxysmal AFib, has had RVR. RHEUMATIC FEVER; H eart Murmur. chronic back, dee shoulder pain. SEVERE OSTEOPROS,Vertigo,DJD. GI ulcers, esophagitis/esophageal stricture. Last Myocardial Infarction Date:: 2002 History of Any Multi-Drug Resistant Organisms: None Reported Past Surgical History: Appendectomy, Cardiac Ablation, Ear Surgery, Heart Catheterization, Hysterectomy, Orthopedic Surgery, Pacemaker, Tonsillectomy Additional Past Surgical History / Comment(s): ORIF LEFT LOWER ARM, HAS HARDWARE. Numerous DILATATION OF ESOPHAGUS-recently done in 06/2016 at [facility] pt stated bx were neg, colonoscopy. Pacemaker (ADAPTA) placed 07/07 at [facility]. Cardiac Cath in 2002. Bilateral stapedectomies. CARDIAC ABLATION 09/2016. Past Anesthesia/Blood Transfusion Reactions: Family History of Problems w/ Anesthesia, Motion Sickness, Postoperative Nausea & Vomiting (PONV) Additional Past Anesthesia/Blood Transfusion Reaction / Comment(s): no problems with prior blood transfusion. BROTHER HAS PONV. Type of Cardiac Device: Permanent Pacemaker Device Placement Date:: 06/2016 Past Psychological History: No Psychological Hx Reported Smoking Status: Never smoker Past Alcohol Use History: None Reported Past Drug Use History: None Reported - Past Family History Brother(s) Family Medical History: Cancer Additional Family Medical History / Comment(s): throat Father Family Medical History: Pneumonia Additional Family Medical History / Comment(s): EMPHYSEMA Mother Family Medical History: COPD, Rheumatoid Arthritis (RA) Additional Family Medical History / Comment(s): EMPHYSEMA General Exam - General Exam Comments Initial Comments: Constitutional: NAD, AOX3, Pt has pleasant affect. HEENT: NC/AT, trachea midline, neck supple, no lymphadenopathy. Posterior pharynx non erythematous, without exudates. External ears appear normal, without discharge. Mucous membranes moist. Eyes PERRLA, EOM intact. There is no scleral icterus. No pallor noted. Cardiopulmonary: RRR, no murmurs, rubs or gallops, no JVD noted. Lungs CTAB in anterior and posterior nunez. No peripheral edema. Abdominal exam: Abdomen soft and non-distended. Left inguinal hernia noted. Tender to palpation, reproducible. No other areas of abdominal tenderness.. Bowel sounds active in LLQ. No hepatosplenomegaly. No ecchymosis Neuro: CN II-XII grossly intact. No nuchal rigidity. No raccon eyes, no wilson sign, no hemotympanum. No cervical spinal tenderness. MSK: No posterior calf tenderness bilaterally, homans sign negative bilaterally. Posterior tibialis and radial pulse +2 bilaterally. Sensation intact in upper and lower extremities. Full active ROM in upper and lower extremities, 5/5 stregnth. Limitations: no limitations Course Vital Signs 05/10/19 15:28 Temperature 98.3 F Pulse Rate 84 Respiratory 18 Rate Blood Pressure 139/85 O2 Sat by Pulse 98 Oximetry Medical Decision Making - Medical Decision Making 73-year-old female patient presents to ED for to complain of abdominal pain for which she describes as a painful left inguinal hernia. Patient reports that this hernia has been giving her pain for the last 6 weeks. 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 Patient has had multiple episodes of nausea and vomiting. She feels as if she is unable to reduce the hernia. This happened approximately 2 hours prior to presentation. Denies any other complaints at this time. Patient vital signs are stable, afebrile. Physical exam displayed: Abdomen soft and non-distended. Left inguinal hernia noted. Tender to palpation, reproducible. No other areas of abdominal tenderness.. Bowel sounds active in LLQ. No hepatosplenomegaly. No ecchymosis. Laboratory investigations were obtained, CBC is nonspecific. Coagulation studies within normal limits. Chemistries did reveal hypokalemia of 2.5, increased BUN and creatinine from baseline. Mild lactic acidosis of 2.1. Mildly increased lipase of 442. UA is negative. CAT scan abdomen and pelvis was obtained. Due to patient's kidney functions CAT scan was obtained without contrast, this revealed possible fecal stasis, small pericardial effusion, postoperative changes. Patient pain is very well controlled. Patient was evaluated Dr. Rich and is no longer tender. Patient be admitted for hypokalemia as well as surgical consultation. Case discussed and patient seen by Dr. Rich. - Lab Data Result diagrams: 05/10/19 15:50 05/10/19 15:50 Lab Results 05/10/19 05/10/19 05/10/19 Range/Units 15:50 15:50 15:50 WBC 5.9 (3.8-10.6) k/uL RBC 4.80 (3.80-5.40) m/uL Hgb 15.7 (11.4-16.0) gm/dL Hct 46.8 H (34.0-46.0) % MCV 97.4 (80.0-100.0) fL MCH 32.7 (25.0-35.0) pg MCHC 33.6 (31.0-37.0) g/dL RDW 13.5 (11.5-15.5) % Plt Count 324 (150-450) k/uL Neutrophils % 57 % Lymphocytes % 29 % Monocytes % 7 % Eosinophils % 1 % Basophils % 3 % Neutrophils # 3.3 (1.3-7.7) k/uL Lymphocytes # 1.7 (1.0-4.8) k/uL Monocytes # 0.4 (0-1.0) k/uL Eosinophils # 0.1 (0-0.7) k/uL Basophils # 0.2 (0-0.2) k/uL PT (9.0-12.0) sec INR (<1.2) APTT (22.0-30.0) sec Sodium 137 (137-145) mmol/L Potassium 2.5 L* (3.5-5.1) mmol/L Chloride 91 L (98-107) mmol/L Carbon Dioxide 32 H (22-30) mmol/L Anion Gap 14 mmol/L BUN 36 H (7-17) mg/dL Creatinine 1.28 H (0.52-1.04) mg/dL Est GFR (CKD-EPI)AfAm 49 (>60 ml/min/1.73 sqM) Est GFR (CKD-EPI)NonAf 42 (>60 ml/min/1.73 sqM) Glucose 83 (74-99) mg/dL Plasma Lactic Acid Harjeet 2.1 H* (0.7-2.0) mmol/L Calcium 9.9 (8.4-10.2) mg/dL Magnesium (1.6-2.3) mg/dL Total Bilirubin 0.3 (0.2-1.3) mg/dL AST 39 H (14-36) U/L ALT 22 (4-34) U/L Alkaline Phosphatase 65 (38-126) U/L Total Protein 8.6 H (6.3-8.2) g/dL Albumin 4.7 (3.5-5.0) g/dL Lipase 442 H (23-300) U/L Urine Color Urine Appearance (Clear) Urine pH (5.0-8.0) Ur Specific [place] (1.001-1.035) Urine Protein (Negative) Urine Glucose (UA) (Negative) Urine Ketones (Negative) Urine Blood (Negative) Urine Nitrite (Negative) Urine Bilirubin (Negative) Urine Urobilinogen (<2.0) mg/dL Ur Leukocyte Esterase (Negative) 05/10/19 05/10/19 05/10/19 Range/Units 15:50 15:50 17:45 WBC (3.8-10.6) k/uL RBC (3.80-5.40) m/uL Hgb (11.4-16.0) gm/dL Hct (34.0-46.0) % MCV (80.0-100.0) fL MCH (25.0-35.0) pg MCHC (31.0-37.0) g/dL RDW (11.5-15.5) % Plt Count (150-450) k/uL Neutrophils % % Lymphocytes % % Monocytes % % Eosinophils % % Basophils % % Neutrophils # (1.3-7.7) k/uL Lymphocytes # (1.0-4.8) k/uL Monocytes # (0-1.0) k/uL Eosinophils # (0-0.7) k/uL Basophils # (0-0.2) k/uL PT 10.7 (9.0-12.0) sec INR 1.0 (<1.2) APTT 22.7 (22.0-30.0) sec Sodium (137-145) mmol/L Potassium (3.5-5.1) mmol/L Chloride (98-107) mmol/L Carbon Dioxide (22-30) mmol/L Anion Gap mmol/L BUN (7-17) mg/dL Creatinine (0.52-1.04) mg/dL Est GFR (CKD-EPI)AfAm (>60 ml/min/1.73 sqM) Est GFR (CKD-EPI)NonAf (>60 ml/min/1.73 sqM) Glucose (74-99) mg/dL Plasma Lactic Acid Harjeet (0.7-2.0) mmol/L Calcium (8.4-10.2) mg/dL Magnesium 1.7 (1.6-2.3) mg/dL Total Bilirubin (0.2-1.3) mg/dL AST (14-36) U/L ALT (4-34) U/L Alkaline Phosphatase (38-126) U/L Total Protein (6.3-8.2) g/dL Albumin (3.5-5.0) g/dL Lipase (23-300) U/L Urine Color Colorless Urine Appearance Clear (Clear) Urine pH 6.0 (5.0-8.0) Ur Specific [place] 1.006 (1.001-1.035) Urine Protein Negative (Negative) Urine Glucose (UA) Negative (Negative) Urine Ketones Negative (Negative) Urine Blood Negative (Negative) Urine Nitrite Negative (Negative) Urine Bilirubin Negative (Negative) Urine Urobilinogen <2.0 (<2.0) mg/dL Ur Leukocyte Esterase Negative (Negative) - EKG Data -: EKG Interpreted by Me (and Dr. Rich) EKG Comments: Ventricular rate 76, when necessary for 152, QRS 82, QT/QTc 14/470. Normal chest rhythm with sinus arrhythmia. No concern for acute ischemia at this time. Disposition Clinical Impression: Abdominal pain, Inguinal hernia, Hypokalemia Disposition: ADMITTED IP TO THIS HOSP Condition: Serious Is patient prescribed a controlled substance at d/c from ED?: No Referrals: Elroy Wrya DO [Primary Care Provider] - 1-2 days
[2019-05-10 16:29] LABS: Basophils # (A) 0.2 k/uL (0-0.2); Basophils % (A) 3 %; Eosinophils # (A) 0.1 k/uL (0-0.7); Eosinophils % (A) 1 %; HCT 46.8 % (34.0-46.0); HGB 15.7 gm/dL (11.4-16.0); Lymphocytes # (A) 1.7 k/uL (1.0-4.8); Lymphocytes % (A) 29 %; MCH 32.7 pg (25.0-35.0); MCHC 33.6 g/dL (31.0-37.0); MCV 97.4 fL (80.0-100.0); Monocytes # (A) 0.4 k/uL (0-1.0); Monocytes % (A) 7 %; Neutrophils # (A) 3.3 k/uL (1.3-7.7); Neutrophils % (A) 57 %; Platelet Count 324 k/uL (150-450); RDW 13.5 % (11.5-15.5); WBC 5.9 k/uL (3.8-10.6)
[2019-05-10 16:30] LABS: Partial Thromboplastin Time 22.7 sec (22.0-30.0); Prothrombin Time 10.7 sec (9.0-12.0)
[2019-05-10 16:39] LABS: Albumin 4.7 g/dL (3.5-5.0); Calcium 9.9 mg/dL (8.4-10.2); Total Bilirubin 0.3 mg/dL (0.2-1.3); Total Protein 8.6 g/dL (6.3-8.2)
[2019-05-10 16:43] LABS: Potassium 2.5 mmol/L (3.5-5.1)
[2019-05-10] MEDS ORDERED: Potassium Replacement Protocol 1 EACH MISC MISCELLANE PRN (17:01)
[2019-05-10] MEDS ORDERED: POTASSIUM CHLORIDE ER 20 MEQ TAB.ER PO STA (17:41)
[2019-05-10] MEDS: POTASSIUM CHLORIDE ER 20 MEQ TAB.ER PO SCH ×2 (17:50→17:52)
[2019-05-10 17:51] LABS: Appearance,Urine Clear (Clear); Bilirubin,Urine Negative (Negative); Blood,Urine Negative (Negative); Color,Urine Colorless; Glucose,Urine (UA) Negative (Negative); Ketones,Urine Negative (Negative); Leukocyte Esterase,Urine Negative (Negative); Nitrite,Urine Negative (Negative); Protein,Urine Negative (Negative); Specific Gravity,Urine 1.006 (1.001-1.035); Urobilinogen,Urine <2.0 mg/dL (<2.0)
[2019-05-10] MEDS: POTASSIUM CHLORIDE 20 MEQ in WATER FOR INJECTION 1 100ML.BAG IVPB SCH ×3 (17:55→23:30)
--- NOTE | 2019-05-10 18:03 | CT ---
EXAMINATION TYPE: CT abdomen pelvis wo con DATE OF EXAM: 05/10/2019 COMPARISON: Prior CT 08/02/2018 HISTORY: hernia, groin pain CT DLP: 310.1 mGycm Automated exposure control for dose reduction was used. TECHNIQUE: Helical acquisition of images from the lung bases through the pelvis. FINDINGS: Lack of intravenous contrast could compromise sensitivity. Intracardiac leads are present i n the right atrium and ventricle. There is a small hiatal hernia present. There is a small pericardia l effusion. LUNG BASES: Some minimal basilar scarring. No pleural pericardial effusion. AORTA: No significant abnormality is appreciataed. LIVER/GB: Patient is post cholecystectomy. Liver is stable. Common bile duct again prominent possibly due to postcholecystectomy change. PANCREAS: No significant abnormality is seen. SPLEEN: No significant abnormality is seen. ADRENALS: No significant abnormality is seen. KIDNEYS: No significant abnormality is seen. REPRODUCTIVE ORGANS: Not seen. URINARY BLADDER: Distended. BOWEL: Retained fecal debris is present of the distribution of the colon. Retained stool in the colo n is dense. FREE AIR: No Free Air is visible. ASCITES: None visible. PELVIC ADENOPATHY: None visualized. RETROPERITONEAL ADENOPATHY: No Retroperitoneal Adenopathy visible. OSSEOUS STRUCTURES: Superior endplate depression noted at L4 is a stable finding. There is a mild sp inal curvature.. IMPRESSION: CORRELATE FOR HISTORY OF INGESTION OF RADIODENSE MEDICINE, POSSIBLE FECAL STASIS. Additional findings above, small pericardial effusion. Postop changes. Noncontrast exam.
[2019-05-10] MEDS ORDERED: NALOXONE 0.4 MG/ML 1 ML VIAL IV PRN (19:01)
[2019-05-10] MEDS ORDERED: METHOCARBAMOL 750 MG TAB PO PRN (20:56)
[2019-05-10] MEDS: DICYCLOMINE 10 MG CAP PO SCH (21:15)
[2019-05-10] MEDS: PANTOPRAZOLE 40 MG TABLET PO SCH (21:15)
[2019-05-10] MEDS: ONDANSETRON ODT 4 MG TAB PO PRN (21:15)
[2019-05-10] MEDS: SODIUM CHLORIDE 0.9% 1,000 ML IV SCH (21:17)
[2019-05-10] MEDS: MORPHINE SULFATE 4 MG/ML SYRINGE IV PRN (22:33)
[2019-05-10] MEDS: NYSTATIN 100,000 UNIT/ML SUSP 500,000 UNIT/5 ML CUP PO SCH (23:31)
[2019-05-11] MEDS ORDERED: POTASSIUM CHLORIDE ER 20 MEQ TAB.ER PO ONE ×2 (01:30→03:30)
[2019-05-11] MEDS: MORPHINE SULFATE 4 MG/ML SYRINGE IV PRN ×5 (02:51→21:08)
[2019-05-11] MEDS: LEVOTHYROXINE 100 MCG TAB PO SCH (05:40)
[2019-05-11] MEDS: SUMAtriptan SUCCINATE 50 MG TAB PO PRN (05:40)
[2019-05-11] MEDS: ONDANSETRON ODT 4 MG TAB PO PRN ×3 (05:40→23:05)
[2019-05-11 07:43] LABS: Albumin 3.8 g/dL (3.5-5.0); Calcium 8.6 mg/dL (8.4-10.2); Magnesium 1.6 mg/dL (1.6-2.3); Potassium 3.1 mmol/L (3.5-5.1); Total Bilirubin 0.3 mg/dL (0.2-1.3); Total Protein 6.7 g/dL (6.3-8.2)
[2019-05-11 07:45] LABS: Basophils # (A) 0.1 k/uL (0-0.2); Basophils % (A) 1 %; Eosinophils # (A) 0.2 k/uL (0-0.7); Eosinophils % (A) 4 %; HCT 36.7 % (34.0-46.0); Lymphocytes # (A) 1.8 k/uL (1.0-4.8); Lymphocytes % (A) 36 %; MCH 34.1 pg (25.0-35.0); MCHC 34.4 g/dL (31.0-37.0); MCV 99.2 fL (80.0-100.0); Mean Platelet Volume 8.4; Monocytes # (A) 0.3 k/uL (0-1.0); Monocytes % (A) 6 %; Neutrophils # (A) 2.5 k/uL (1.3-7.7); Neutrophils % (A) 51 %; Platelet Count 262 k/uL (150-450); RDW 13.6 % (11.5-15.5)
[2019-05-11 07:50] LABS: HGB 12.6 gm/dL (11.4-16.0)
[2019-05-11] MEDS: NYSTATIN 100,000 UNIT/ML SUSP 500,000 UNIT/5 ML CUP PO SCH ×4 (08:37→21:33)
[2019-05-11] MEDS: POTASSIUM CHLORIDE 10 MEQ in WATER FOR INJECTION 1 100ML.BAG IVPB SCH ×4 (08:37→14:00)
[2019-05-11] MEDS: DICYCLOMINE 10 MG CAP PO SCH ×3 (08:38→21:31)
[2019-05-11] MEDS: PANTOPRAZOLE 40 MG TABLET PO SCH ×2 (08:38→21:31)
[2019-05-11] MEDS: SODIUM CHLORIDE 0.9% 1,000 ML IV SCH ×2 (09:27→15:33)
[2019-05-11] MEDS: MAGNESIUM OXIDE 400 MG TAB PO SCH (10:58)
[2019-05-11] MEDS: CYANOCOBALAMIN 500 MCG TAB PO SCH (10:58)
[2019-05-11] MEDS: PYRIDOXINE 50 MG TAB PO SCH (10:59)
--- NOTE | 2019-05-11 12:02 | P.GSCN ---
History of Present Illness Consult date: 05/11/19 Reason for Consult: Left inguinal pain History of present illness: This a 73-year-old female who was admitted to the hospital for hypokalemia. Patient states she has left groin pain. She says she lifted something at home. She is unsure she feels a mass or bulge in the area. Her CAT scan on admission fails to show any evidence of an inguinal hernia. There is no evidence of any bowel obstruction. Past Medical History Past Medical History: Atrial Fibrillation, Blood Disorder, Coronary Artery Dise ase (CAD), Chest Pain / Angina, Fibromyalgia, GERD/Reflux, GI Bleed, Hypertension, Myocardial Infarction ([place]), Musculoskeletal Disorder, Osteoarthritis (OA), Thyroid Disorder Additional Past Medical History / Comment(s): Pacemaker [facility] in June 2016 for Syncopy/Tachybrady syndrome Paroxysmal AFib, has had RVR. RHEUMATIC FEVER; Heart Murmur. chronic back pain, dee shoulder pain. SEVERE OSTEOPROS,Vertigo,DJD. GI ulcers, esophagitis/esophageal stricture; partially blocked bile duct Last Myocardial Infarction Date:: 2002 History of Any Multi-Drug Resistant Organisms: None Reported Past Surgical History: Appendectomy, Cardiac Ablation, Cholecystectomy, Ear Surgery, Heart Catheterization, Hysterectomy, Orthopedic Surgery, Pacemaker, Tonsillectomy Additional Past Surgical History / Comment(s): ORIF LEFT LOWER ARM, HAS HARDWARE. Numerous DILATATION OF ESOPHAGUS-recently done in 06/2016 at [facility] pt stated bx were neg, colonoscopy. Pacemaker (ADAPTA) placed 07/07 at [facility]. Cardiac Cath in 2002. Bilateral stapedectomies. CARDIAC ABLATION 09/2016. Hiatal hernia repair Past Anesthesia/Blood Transfusion Reactions: Family History of Problems w/ An esthesia, Motion Sickness, Postoperative Nausea & Vomiting (PONV) Additional Past Anesthesia/Blood Transfusion Reaction / Comm: no problems with prior blood transfusion. BROTHER HAS PONV. Type of Cardiac Device: Permanent Pacemaker Device Placement Date:: 06/2016 Past Psychological History: No Psychological Hx Reported Additional Psychological History / Comment(s): DENIES ANY HX OF PROBLEM Smoking Status: Never smoker Past Alcohol Use History: None Reported Additional Past Alcohol Use History / Comment(s): Lives alone Past Drug Use History: None Reported - Past Family History Brother(s) Family Medical History: Cancer Additional Family Medical History / Comment(s): throat - currently in remission (05/10/19) Father Family Medical History: Pneumonia Additional Family Medical History / Comment(s): EMPHYSEMA Mother Family Medical History: COPD, Rheumatoid Arthritis (RA) Additional Family Medical History / Comment(s): EMPHYSEMA Medications and Allergies Home Medications Medication Instructions Recorded Confirmed Type SUMAtriptan SUCCINATE [Imitrex] 50 mg PO BID PRN 02/15/16 05/10/19 History Potassium Chloride [Klor-Con 40 meq PO BID 03/01/17 05/10/19 History Sprinkle] Pantoprazole Sodium [Protonix] 40 mg PO BID 04/25/17 05/10/19 History Ergocalciferol (Vitamin D2) 50,000 unit PO TH 01/14/18 05/10/19 History [Vitamin D2] Furosemide [Lasix] 40 mg PO BID 01/14/18 05/10/19 History Magnesium Oxide [Mag-Ox] 400 mg PO DAILY 01/14/18 05/10/19 History Methocarbamol [Robaxin] 750 mg PO TID PRN 01/14/18 05/10/19 History Cyanocobalamin [Vitamin B-12] 500 mcg PO DAILY 08/01/18 05/10/19 History Pyridoxine HCl (Vitamin B6) 100 mg PO DAILY 08/01/18 05/10/19 History [Vitamin B-6] Dicyclomine [Bentyl] 10 mg PO TID 05/10/19 05/10/19 History Hydrocodone/Acetaminophen [Hycet 15 ml PO TID PRN 05/10/19 05/10/19 History 7.5 mg-325 mg/15 ml Soln] Levothyroxine Sodium [Synthroid] 100 mcg PO DAILY 05/10/19 05/10/19 History Metoprolol Succinate (ER) [Toprol 50 mg PO DAILY 05/10/19 05/10/19 History Xl] Nystatin 100,000 Unit/ml Susp 500,000 units PO QID 05/10/19 05/10/19 History [Mycostatin Oral Susp] Ondansetron [Zofran ODT] 4 mg PO TID PRN 05/10/19 05/10/19 History Allergies Allergy/AdvReac Type Severity Reaction Status Date / Time adhesive Allergy RASH FROM Verified 05/10/19 19:08 EKG STICKERS celecoxib [From Celebrex] Allergy Rash/Hives Verified 05/10/19 19:08 sertraline HCl [From Zoloft] Allergy Rash/Hives Verified 05/10/19 19:08 sulfamethoxazole Allergy Anaphylaxis Verified 05/10/19 19:08 [From Bactrim] trimethoprim [From Bactrim] Allergy Anaphylaxis Verified 05/10/19 19:08 cholestyramine AdvReac DIZZY/CONFU Verified 05/10/19 19:08 SED Surgical - Exam Vital Signs Temp Pulse Resp BP Pulse Ox 98.3 F 84 18 139/85 98 05/10/19 15:28 05/10/19 15:28 05/10/19 15:28 05/10/19 15:28 05/10/19 15:28 - General well developed, well nourished, no distress - Eyes PERRL - ENT normal pinna - Neck no masses - Respiratory normal expansion - Cardiovascular Rhythm: regular - Abdomen Abdomen is soft. Patient's groins were examined. I'm unable palpate any significant inguinal hernia. There is some mild tenderness left groin. Abdomen: soft, non tender Results - Labs 05/11/19 05:53 05/11/19 05:53 Abnormal Lab Results - Last 24 Hours (Table) 05/10/19 05/10/19 05/10/19 Range/Units 15:50 15:50 15:50 RBC (3.80-5.40) m/uL Hct 46.8 H (34.0-46.0) % Potassium 2.5 L* (3.5-5.1) mmol/L Chloride 91 L (98-107) mmol/L Carbon Dioxide 32 H (22-30) mmol/L BUN 36 H (7-17) mg/dL Creatinine 1.28 H (0.52-1.04) mg/dL Glucose (74-99) mg/dL Plasma Lactic Acid Harjeet 2.1 H* (0.7-2.0) mmol/L AST 39 H (14-36) U/L Total Protein 8.6 H (6.3-8.2) g/dL Lipase 442 H (23-300) U/L 05/11/19 05/11/19 05/11/19 Range/Units 02:10 05:53 05:53 RBC 3.70 L (3.80-5.40) m/uL Hct (34.0-46.0) % Potassium 3.0 L 3.1 L (3.5-5.1) mmol/L Chloride (98-107) mmol/L Carbon Dioxide 32 H (22-30) mmol/L BUN 22 H (7-17) mg/dL Creatinine (0.52-1.04) mg/dL Glucose 100 H (74-99) mg/dL Plasma Lactic Acid Harjeet (0.7-2.0) mmol/L AST (14-36) U/L Total Protein (6.3-8.2) g/dL Lipase (23-300) U/L Diabetes panel 05/10/19 05/11/19 05/11/19 Range/Units 15:50 02:10 05:53 Sodium 137 140 (137-145) mmol/L Potassium 2.5 L* 3.0 L 3.1 L (3.5-5.1) mmol/L Chloride 91 L 101 (98-107) mmol/L Carbon Dioxide 32 H 32 H (22-30) mmol/L BUN 36 H 22 H (7-17) mg/dL Creatinine 1.28 H 1.03 (0.52-1.04) mg/dL Glucose 83 100 H (74-99) mg/dL Calcium 9.9 8.6 (8.4-10.2) mg/dL AST 39 H 35 (14-36) U/L ALT 22 18 (4-34) U/L Alkaline Phosphatase 65 54 (38-126) U/L Total Protein 8.6 H 6.7 (6.3-8.2) g/dL Albumin 4.7 3.8 (3.5-5.0) g/dL Calcium panel 05/10/19 05/11/19 Range/Units 15:50 05:53 Calcium 9.9 8.6 (8.4-10.2) mg/dL Albumin 4.7 3.8 (3.5-5.0) g/dL Pituitary panel 05/10/19 05/11/19 05/11/19 Range/Units 15:50 02:10 05:53 Sodium 137 140 (137-145) mmol/L Potassium 2.5 L* 3.0 L 3.1 L (3.5-5.1) mmol/L Chloride 91 L 101 (98-107) mmol/L Carbon Dioxide 32 H 32 H (22-30) mmol/L BUN 36 H 22 H (7-17) mg/dL Creatinine 1.28 H 1.03 (0.52-1.04) mg/dL Glucose 83 100 H (74-99) mg/dL Calcium 9.9 8.6 (8.4-10.2) mg/dL Adrenal panel 05/10/19 05/11/19 05/11/19 Range/Units 15:50 02:10 05:53 Sodium 137 140 (137-145) mmol/L Potassium 2.5 L* 3.0 L 3.1 L (3.5-5.1) mmol/L Chloride 91 L 101 (98-107) mmol/L Carbon Dioxide 32 H 32 H (22-30) mmol/L BUN 36 H 22 H (7-17) mg/dL Creatinine 1.28 H 1.03 (0.52-1.04) mg/dL Glucose 83 100 H (74-99) mg/dL Calcium 9.9 8.6 (8.4-10.2) mg/dL Total Bilirubin 0.3 0.3 (0.2-1.3) mg/dL AST 39 H 35 (14-36) U/L ALT 22 18 (4-34) U/L Alkaline Phosphatase 65 54 (38-126) U/L Total Protein 8.6 H 6.7 (6.3-8.2) g/dL Albumin 4.7 3.8 (3.5-5.0) g/dL Assessment and Plan Assessment: 73-year-old female with multiple medical problems. There is no significant left inguinal hernia. Would recommend observation.
[2019-05-11] MEDS: METOPROLOL SUCCINATE (ER) 50 MG TAB.ER.24H PO SCH (15:32)
--- NOTE | 2019-05-11 16:29 | CONS ---
CONSULTATION DATE OF SERVICE: May 11, 2019. REASON FOR THE CONSULTATION: History of pacemaker and history of atrial fibrillation. HISTORY OF PRESENT ILLNESS: This is a pleasant 73-year-old female patient who sees Dr. Penn in the office as an outpatient with a past medical history significant for permanent pacemaker implantation, as well as history of paroxysmal atrial fibrillation, refused to take any oral anticoagulation as well as extensive GI history consistent of achalasia and also history of chronic hypokalemia, presented to the hospital complaining of abdominal discomfort. The patient has been experiencing discomfort for the last few days. She was seen by her primary care physician who performed "an ultrasound" and that revealed, according to her, hernia. The patient subsequently presented to the Emergency Room where she was admitted for possible hiatal hernia. A CT scan was performed and she was seen by a general surgeon who told the patient no hernia was seen on the CT scan and they recommend only medical treatment. The patient continues to have discomfort in both groins. She denies any symptoms of chest pain or chest discomfort. She continues to have hypokalemia, which has been managed by the primary care team. The EKG revealed sinus rhythm without any significant ST or T-wave abnormalities. The blood work overall came in to be unremarkable beside the potassium. The patient underwent an echocardiogram about a year ago and that revealed normal left ventricular systolic function without any significant valvular abnormalities. She is asymptomatic from a cardiovascular standpoint of view at this point. PAST MEDICAL HISTORY: Includes history of: 1. Paroxysmal atrial fibrillation. 2. Status post pacemaker implantation. 3. Chronic abdominal discomfort. 4. Achalasia. SOCIAL HISTORY: The patient does not smoke or drink alcohol. FAMILY HISTORY: Is not relevant. MEDICATIONS: Current medications include the followin. Multivitamin. 2. Magnesium oxide 400 mg daily. 3. Metoprolol succinate 50 mg p.o. daily. 4. Zofran 4 mg p.o. t.i.d. p.r.n. 5. Protonix 40 mg p.o. b.i.d. PHYSICAL EXAMINATION: GENERAL APPEARANCE: The patient does not look in any pain or distress. VITAL SIGNS: Vital showed the heart rate is 65, respiratory rate is 12, pressure is 130/74. CARDIOVASCULAR examination revealed normal rate and rhythm. RESPIRATORY examination shows clear breathing sounds bilaterally. EXTREMITY examination, no pedal edema was noted. DIAGNOSTIC ASSESSMENT: 1. Abdominal discomfort of unknown etiology. 2. Paroxysmal atrial fibrillation. 3. Status post permanent pacemaker. PLAN: 1. The patient seems to be asymptomatic from a cardiovascular standpoint of view. 2. I recommended continue the current medical regimen including the beta farshad. 3. She refused to take any oral anticoagulation in the past. 4. No need for any further cardiac workup. 5. We will follow up with the patient on a p.r.n. basis. CHRISTINA / MARY JANE: [id number] /
[2019-05-11] MEDS: POTASSIUM CHLORIDE ER 20 MEQ TAB.ER PO SCH ×2 (17:26→19:49)
[2019-05-11] MEDS ORDERED: diphenhydrAMINE 50 MG/ML 1 ML VIAL IVP ONE (17:52)
--- NOTE | 2019-05-11 17:57 | P.HPIM ---
History of Present Illness H&P Date: 05/11/19 Chief Complaint: Left groin pain History of presenting complaint: This is a very pleasant 73-year-old patient of Dr. Wray. Other extensive medical history. Chronic stable medical conditions include esophagitis, peptic ulcer disease, chronic essential hypertension, primary osteoarthritis of multiple joints bilateral, depression, hypothyroidism, esophageal dysmotility, anxiety not otherwise specified,, esophageal constriction with repeated dilatation. Patient is followed at [facility] for the same. Patient has recently noticed that she began having pain in the left groin area especially when she bends over or she lifts her head off the bed. She notices a bulge that is often tender. 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 She was admitted for the same. No nausea vomiting. No fever or chills. The swelling of the groin is intermittent. Review of systems: GEN.: Gen. tightness EYES: None HEENT: None NECK: None RESPIRATORY: None CARDIOVASCULAR: None GASTROINTESTINAL: As above, heartburn GENITOURINARY: None MUSCULOSKELETAL: Joint pains LYMPHATICS: None HEMATOLOGICAL: None PSYCHIATRY: Anxiety NEUROLOGICAL: None Past medical history to include: Atrophic fibrillation, fibromyalgia, GERD, GI bleed, hypertension, osteoarthritis, hypothyroid, pacemaker for tachybradycardia syndrome, paroxysmal atrial flutter fibrillation, severe osteoporosis, esophageal stricture with dilatation, esophagitis Past surgical history to include: Appendectomy, cardiac ablation, ear surgery, pacemaker, or on her fourth left lower lobe, esophageal dilatation, pacemaker, cardiac ablation, Social history: Does not smoke or drink alcohol. Lives alone. Family history of: Cancer Physical examination: VITAL SIGNS: 98, 65, 12, 130/74, 95% improvement GENERAL: BMI 21.8, laying in bed, tired appearing. EYES: Pupils equal. Conjunctiva normal. HEENT: External appearance of nose and ears normal, oral cavity grossly normal. NECK: JVD not raised; masses not palpable. HEART: First and second heart sounds are normal; no edema. LUNGS: Respiratory rate normal; clear to auscultation. ABDOMEN: Soft, nontender, liver spleen not palpable, no masses palpable. When patient lifts her head off the bed that is a very small bulge in the left inguinal area PSYCH: [Alert and oriented x3; mood and affect slightly anxious MUSCULOSKELETAL: Evidence of OA especially in the hands and knees l. NEUROLOGICAL: Cranial nerves grossly intact; no facial asymmetry, power and sensation grossly intact. LYMPHATICS: No lymph nodes palpable in the axilla and neck INVESTIGATIONS, reviewed in the clinical context: White count 5.9 hemoglobin 15.7 potassium 2.5 bun 36 creatinine 1.28 EKG tracing personally reviewed by me-shows normal sinus rhythm CT abdomen-possible fecal stasis Assessment: -Severe hypokalemia -Acute renal failure, likely prerenal in the patient's was on Lasix -Small intermittent left inguinal hernia but only manifests itself with certain activities. -Chronic esophagitis -Essential hypertension -Primary osteoarthritis -Depression -Hypothyroidism -Esophageal dysmotility -Anxiety but otherwise specified -Chronic esophageal constriction with repeated dilatations Plan: Patient is given IV fluids. Potassium was aggressively being replaced. Potassium came up.. Lasix held off. Patient received IV fluids. Patient seen by Dr. Mariano from general surgery today. She wishes to see Dr. Booth tomorrow. Repeat labs in the morning. Past Medical History Past Medical History: Atrial Fibrillation, Blood Disorder, Coronary Artery Disease (CAD), Chest Pain / Angina, Fibromyalgia, GERD/Reflux, GI Bleed, Hypertension, Myocardial Infarction ([place]), Musculoskeletal Disorder, Osteoarthritis (OA), Thyroid Disorder Additional Past Medical History / Comment(s): Pacemaker [facility] in June 2016 for Syncopy/Tachybrady syndrome Paroxysmal AFib, has had RVR. RHEUMATIC FEVER; Heart Murmur. chronic back pain, dee shoulder pain. SEVERE OSTEOPROS,Vertigo,DJD. GI ulcers, esophagitis/esophageal stricture; partially blocked bile duct Last Myocardial Infarction Date:: 2002 History of Any Multi-Drug Resistant Organisms: None Reported Past Surgical History: Appendectomy, Cardiac Ablation, Cholecystectomy, Ear Surgery, Heart Catheterization, Hysterectomy, Orthopedic Surgery, Pacemaker, Tonsillectomy Additional Past Surgical History / Comment(s): ORIF LEFT LOWER ARM, HAS HARDWARE. Numerous DILATATION OF ESOPHAGUS-recently done in 06/2016 at [facility] pt stated bx were neg, colonoscopy. Pacemaker (ADAPTA) placed 07/07 at [facility]. Cardiac Cath in 2002. Bilateral stapedectomies. CARDIAC ABLATION 09/2016. Hiatal hernia repair Past Anesthesia/Blood Transfusion Reactions: Family History of Problems w/ Anesthesia, Motion Sickness, Postoperative Nausea & Vomiting (PONV) Additional Past Anesthesia/Blood Transfusion Reaction / Comment(s): no problems with prior blood transfusion. BROTHER HAS PONV. Type of Cardiac Device: Permanent Pacemaker Device Placement Date:: 06/2016 Past Psychological History: No Psychological Hx Reported Additional Psychological History / Comment(s): DENIES ANY HX OF PROBLEM Smoking Status: Never smoker Past Alcohol Use History: None Reported Additional Past Alcohol Use History / Comment(s): Lives alone Past Drug Use History: None Reported - Past Family History Brother(s) Family Medical History: Cancer Additional Family Medical History / Comment(s): throat - currently in remission (05/10/19) Father Family Medical History: Pneumonia Additional Family Medical History / Comment(s): EMPHYSEMA Mother Family Medical History: COPD, Rheumatoid Arthritis (RA) Additional Family Medical History / Comment(s): EMPHYSEMA Medications and Allergies Home Medications Medication Instructions Recorded Confirmed Type SUMAtriptan SUCCINATE [Imitrex] 50 mg PO BID PRN 02/15/16 05/10/19 History Potassium Chloride [Klor-Con 40 meq PO BID 03/01/17 05/10/19 History Sprinkle] Pantoprazole Sodium [Protonix] 40 mg PO BID 04/25/17 05/10/19 History Ergocalciferol (Vitamin D2) 50,000 unit PO TH 01/14/18 05/10/19 History [Vitamin D2] Furosemide [Lasix] 40 mg PO BID 01/14/18 05/10/19 History Magnesium Oxide [Mag-Ox] 400 mg PO DAILY 01/14/18 05/10/19 History Methocarbamol [Robaxin] 750 mg PO TID PRN 01/14/18 05/10/19 History Cyanocobalamin [Vitamin B-12] 500 mcg PO DAILY 08/01/18 05/10/19 History Pyridoxine HCl (Vitamin B6) 100 mg PO DAILY 08/01/18 05/10/19 History [Vitamin B-6] Dicyclomine [Bentyl] 10 mg PO TID 05/10/19 05/10/19 History Hydrocodone/Acetaminophen [Hycet 15 ml PO TID PRN 05/10/19 05/10/19 History 7.5 mg-325 mg/15 ml Soln] Levothyroxine Sodium [Synthroid] 100 mcg PO DAILY 05/10/19 05/10/19 History Metoprolol Succinate (ER) [Toprol 50 mg PO DAILY 05/10/19 05/10/19 History Xl] Nystatin 100,000 Unit/ml Susp 500,000 units PO QID 05/10/19 05/10/19 History [Mycostatin Oral Susp] Ondansetron [Zofran ODT] 4 mg PO TID PRN 05/10/19 05/10/19 History Allergies Allergy/AdvReac Type Severity Reaction Status Date / Time adhesive Allergy RASH FROM Verified 05/10/19 19:08 EKG STICKERS celecoxib [From Celebrex] Allergy Rash/Hives Verified 05/10/19 19:08 sertraline HCl [From Zoloft] Allergy Rash/Hives Verified 05/10/19 19:08 sulfamethoxazole Allergy Anaphylaxis Verified 05/10/19 19:08 [From Bactrim] trimethoprim [From Bactrim] Allergy Anaphylaxis Verified 05/10/19 19:08 cholestyramine AdvReac DIZZY/CONFU Verified 05/10/19 19:08 SED Physical Exam Vitals: Vital Signs Temp Pulse Pulse Resp BP BP Pulse Ox 05/11/19 07:00 98 F 65 12 130/74 95 05/11/19 01:51 97.7 F 63 12 132/69 98 05/10/19 19:58 98.1 F 64 12 137/84 98 05/10/19 15:28 98.3 F 84 18 139/85 98 Intake and Output 05/10/19 05/11/19 05/11/19 22:59 06:59 14:59 Other: Voiding Method Toilet Toilet # Voids 1 1 Weight 50.576 kg Results CBC & Chem 7: 05/11/19 05:53 05/11/19 16:19 Labs: Abnormal Lab Results - Last 24 Hours (Table) 05/10/19 05/10/19 05/10/19 Range/Units 15:50 15:50 15:50 RBC (3.80-5.40) m/uL Hct 46.8 H (34.0-46.0) % Potassium 2.5 L* (3.5-5.1) mmol/L Chloride 91 L (98-107) mmol/L Carbon Dioxide 32 H (22-30) mmol/L BUN 36 H (7-17) mg/dL Creatinine 1.28 H (0.52-1.04) mg/dL Glucose (74-99) mg/dL Plasma Lactic Acid Harjeet 2.1 H* (0.7-2.0) mmol/L AST 39 H (14-36) U/L Total Protein 8.6 H (6.3-8.2) g/dL Lipase 442 H (23-300) U/L 05/11/19 05/11/19 05/11/19 Range/Units 02:10 05:53 05:53 RBC 3.70 L (3.80-5.40) m/uL Hct (34.0-46.0) % Potassium 3.0 L 3.1 L (3.5-5.1) mmol/L Chloride (98-107) mmol/L Carbon Dioxide 32 H (22-30) mmol/L BUN 22 H (7-17) mg/dL Creatinine (0.52-1.04) mg/dL Glucose 100 H (74-99) mg/dL Plasma Lactic Acid Harjeet (0.7-2.0) mmol/L AST (14-36) U/L Total Protein (6.3-8.2) g/dL Lipase (23-300) U/L Thrombosis Risk Factor Assmnt - Choose All That Apply Each Risk Factor Represents 2 Points: Age 61-74 years Thrombosis Risk Factor Assessment Total Risk Factor Score: 2 Thrombosis Risk Factor Assessment Level: Low Risk
[2019-05-12] MEDS: MORPHINE SULFATE 4 MG/ML SYRINGE IV PRN ×3 (00:42→20:59)
[2019-05-12] MEDS: SODIUM CHLORIDE 0.9% 1,000 ML IV SCH ×2 (00:56→11:17)
[2019-05-12] MEDS: LEVOTHYROXINE 100 MCG TAB PO SCH (06:02)
[2019-05-12 06:41] LABS: African American GFR (CKD) >90 (>60 ml/min/1.73 sqM); Anion Gap 4 mmol/L; Blood Urea Nitrogen 13 mg/dL (7-17); Carbon Dioxide 26 mmol/L (22-30); Chloride 109 mmol/L (98-107); Glucose 75 mg/dL (74-99); Non-African American GFR(CKD) 81 (>60 ml/min/1.73 sqM); Potassium 4.1 mmol/L (3.5-5.1); Sodium 139 mmol/L (137-145)
[2019-05-12] MEDS: NYSTATIN 100,000 UNIT/ML SUSP 500,000 UNIT/5 ML CUP PO SCH ×4 (09:19→20:56)
[2019-05-12] MEDS: CYANOCOBALAMIN 500 MCG TAB PO SCH (09:19)
[2019-05-12] MEDS: MAGNESIUM OXIDE 400 MG TAB PO SCH (09:19)
[2019-05-12] MEDS: METOPROLOL SUCCINATE (ER) 50 MG TAB.ER.24H PO SCH (09:19)
[2019-05-12] MEDS: PANTOPRAZOLE 40 MG TABLET PO SCH ×2 (09:19→20:56)
[2019-05-12] MEDS: PYRIDOXINE 50 MG TAB PO SCH (09:19)
[2019-05-12] MEDS: DICYCLOMINE 10 MG CAP PO SCH ×3 (09:19→20:56)
[2019-05-12] MEDS: HYDROcodone/APAP 15 ML SOLUTION PO PRN ×2 (10:27→18:13)
--- NOTE | 2019-05-12 16:42 | P.PN ---
Subjective Progress Note Date: 05/12/19 Principal diagnosis: Left groin hernia 73-year-old female presented to the hospital on Sunday with acute onset pain left groin. States she has been noticing a bulge over the last several months. Started to hurt while vacuuming and Sunday. She said she had episodes of naus ea and vomiting with that. CAT scan did not show a hernia or bowel obstruction. Bulge is typically larger when straining. No history of previous groin hernia. Objective - Vital Signs Vital signs: Vital Signs Temp 98.2 F 05/12/19 13:48 Pulse 72 05/12/19 13:48 Resp 17 05/12/19 13:48 BP 143/74 05/12/19 13:48 Pulse Ox 97 05/12/19 13:48 Intake & Output 05/11/19 05/12/19 05/12/19 18:59 06:59 18:59 Other: Voiding Method Toilet Toilet # Voids 3 1 2 - Exam Abdomen: Soft, nondistended, nontender, reducible left groin hernia likely femoral - Labs CBC & Chem 7: 05/11/19 05:53 05/12/19 06:02 Labs: Abnormal Lab Results - Last 24 Hours (Table) 05/12/19 Range/Units 06:02 Chloride 109 H (98-107) mmol/L Assessment and Plan (1) Left groin hernia Narrative/Plan: 73-year-old female with left groin hernia. Options reviewed in detail with the patient and also with admitting physician. Patient would like to proceed with operative repair at this time. This is not unreasonable given the presentation with suspected incarceration initially. On exam this likely represents a femoral hernia however inguinal hernia has not been excluded. We'll proceed with left groin hernia repair with mesh. May or may not explore the inguinal canal. Risks of bleeding, infection, recurrence, bladder and bowel injury, numbness, nerve injury were discussed with the patient. The patient understands and wishes to proceed. Current Visit: Yes Status: Acute Code(s): K40.90 - UNIL INGUINAL HERNIA, W/O OBST OR GANGR, NOT SPCF RECUR SNOMED Code(s): 180004647
--- NOTE | 2019-05-12 21:54 | P.PN ---
Progress Note - Text Progress Note Date: 05/12/19 Chief Complaint: Left groin pain Interval history: This is a very pleasant 73-year-old patient of Dr. Wray. Other extensive medical history. Chronic stable medical conditions include esophagitis, peptic ulcer disease, chronic essential hypertension, primary osteoarthritis of multiple joints bilateral, depression, hypothyroidism, esophageal dysmotility, anxiety not otherwise specified,, esophageal constriction with repeated dilatation. Patient is followed at [facility] for the same. Patient has recently noticed that she began having pain in the left groin area especially when she bends over or she lifts her head off the bed. She notices a bulge that is often tender. 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 She was admitted for the same. No nausea vomiting. No fever or chills. The swelling of the groin is intermittent. Admitted with left femoral/inguinal hernia, reducible, severe hypokalemia and, acute kidney injury from Lasix Today-hypokalemia corrected. Renal failure corrected. Patient overall feeling better. Review of systems: Was done for constitutional, cardiovascular, GI, pulmonary. relevant finding as above Active Medications Hydrocodone Bitart/Acetaminophen (Hartly Elixir 7.5-325mg/15ml) 15 ml PO TID PRN PRN Reason: Pain Last Admin: 05/12/19 18:13 Dose: 15 ml Documented by: Cyanocobalamin (Vitamin B-12) 500 mcg PO DAILY REPLACED BY [facility] Last Admin: 05/12/19 09:19 Dose: Not Given Documented by: Dicyclomine HCl (Bentyl) 10 mg PO TID REPLACED BY [facility] Last Admin: 05/12/19 20:56 Dose: 10 mg Documented by: Ergocalciferol (Vitamin D2) 50,000 unit PO TH REPLACED BY [facility] Levothyroxine Sodium (Synthroid) 100 mcg PO 0630 REPLACED BY [facility] Last Admin: 05/12/19 06:02 Dose: 100 mcg Documented by: Magnesium Oxide (Mag-Ox) 400 mg PO DAILY REPLACED BY [facility] Last Admin: 05/12/19 09:19 Dose: Not Given Documented by: Methocarbamol (Robaxin) 750 mg PO TID PRN PRN Reason: Muscle Spasm Last Admin: 05/12/19 14:25 Dose: 750 mg Documented by: Metoprolol Succinate (Toprol Xl) 50 mg PO DAILY REPLACED BY [facility] Last Admin: 05/12/19 09:19 Dose: Not Given Documented by: Miscellaneous Information (Potassium Per Protocol) 1 each MISCELLANE DAILY PRN; Protocol PRN Reason: Per Protocol Morphine Sulfate (Morphine Sulfate (Inj)) 4 mg IV Q4HR PRN PRN Reason: Severe Pain Last Admin: 05/12/19 20:59 Dose: 4 mg Documented by: Naloxone HCl (Narcan) 0.2 mg IV Q2M PRN PRN Reason: Opioid Reversal Nystatin (Mycostatin Oral Susp) 500,000 unit PO QID REPLACED BY [facility] Last Admin: 05/12/19 20:56 Dose: 500,000 unit Documented by: Ondansetron HCl (Zofran Odt) 4 mg PO TID PRN PRN Reason: Nausea Last Admin: 05/11/19 23:05 Dose: 4 mg Documented by: Pantoprazole Sodium (Protonix) 40 mg PO BID REPLACED BY [facility] Last Admin: 05/12/19 20:56 Dose: 40 mg Documented by: Pyridoxine HCl (Vitamin B-6) 100 mg PO DAILY REPLACED BY [facility] Last Admin: 05/12/19 09:19 Dose: Not Given Documented by: Sumatriptan Succinate (Imitrex) 50 mg PO BID PRN PRN Reason: Migraine Headache Last Admin: 05/11/19 05:40 Dose: 50 mg Documented by: Physical examination: VITAL SIGNS: 98.2, 72, 17, 143/74, 97% on room air GENERAL: Sitting at edge of bed, comfortable. EYES: Pupils equal. Conjunctiva normal. HEENT: External appearance of nose and ears normal, oral cavity grossly normal. NECK: JVD not raised; masses not palpable. HEART: First and second heart sounds are normal; no edema. LUNGS: Respiratory rate normal; clear to auscultation. ABDOMEN: Soft, nontender, liver spleen not palpable, no masses palpable. When patient lifts her head off the bed that is a very small bulge in the left inguinal area PSYCH: [Alert and oriented x3; mood and affect slightly anxious MUSCULOSKELETAL: Evidence of OA especially in the hands and knees l. INVESTIGATIONS, reviewed in the clinical context: White count 5.9 hemoglobin 15.7 potassium 2.5 bun 36 creatinine 1.28 EKG tracing personally reviewed by me-shows normal sinus rhythm CT abdomen-possible fecal stasis Assessment: -Severe hypokalemia, corrected -Acute renal failure, likely prerenal in the patient's was on Lasix, corrected -Small intermittent left inguinal hernia or femoral but only manifests itself with certain activities. -Chronic esophagitis -Essential hypertension -Primary osteoarthritis -Depression -Hypothyroidism -Esophageal dysmotility -Anxiety but otherwise specified -Chronic esophageal constriction with repeated dilatations Plan: Discussed the Dr. Palmer from general surgery. Plan is to take the the patient to the operating room tomorrow.. Care was discussed with the patient.
[2019-05-13] MEDS: MORPHINE SULFATE 4 MG/ML SYRINGE IV PRN ×5 (01:11→23:42)
[2019-05-13] MEDS: LEVOTHYROXINE 100 MCG TAB PO SCH (07:11)
[2019-05-13] MEDS: NYSTATIN 100,000 UNIT/ML SUSP 500,000 UNIT/5 ML CUP PO SCH ×4 (07:12→23:42)
[2019-05-13] MEDS: PANTOPRAZOLE 40 MG TABLET PO SCH ×2 (07:12→20:08)
[2019-05-13] MEDS: DICYCLOMINE 10 MG CAP PO SCH ×3 (07:12→23:42)
[2019-05-13] MEDS: CYANOCOBALAMIN 500 MCG TAB PO SCH (07:12)
[2019-05-13] MEDS: PYRIDOXINE 50 MG TAB PO SCH (07:12)
[2019-05-13] MEDS: MAGNESIUM OXIDE 400 MG TAB PO SCH (07:12)
[2019-05-13 07:22] LABS: ALT 15 U/L (4-34); AST 31 U/L (14-36); African American GFR (CKD) >90 (>60 ml/min/1.73 sqM); Albumin 3.2 g/dL (3.5-5.0); Alkaline Phosphatase 41 U/L (38-126); Anion Gap 2 mmol/L; Blood Urea Nitrogen 9 mg/dL (7-17); Calcium 8.9 mg/dL (8.4-10.2); Carbon Dioxide 27 mmol/L (22-30); Chloride 109 mmol/L (98-107); Glucose 92 mg/dL (74-99); Non-African American GFR(CKD) 85 (>60 ml/min/1.73 sqM); Sodium 138 mmol/L (137-145); Total Bilirubin 0.3 mg/dL (0.2-1.3)
[2019-05-13] MEDS: METOPROLOL SUCCINATE (ER) 50 MG TAB.ER.24H PO SCH (07:35)
[2019-05-13] MEDS: ONDANSETRON 4 MG/2 ML VIAL IVP PRN (07:40)
[2019-05-13] MEDS ORDERED: IV FLUID CONTINUATION 1,000 ML IV ONE (13:44)
[2019-05-13] MEDS ORDERED: DEXAMETHASONE SOD PHOSPHATE 10 MG/ML 1 ML VIAL IV ONE (13:49)
[2019-05-13] MEDS ORDERED: HEPARIN SODIUM,PORCINE 5,000 UNIT/ML 1 ML VIAL SQ ONE (14:24)
[2019-05-13] MEDS ORDERED: ONDANSETRON 4 MG/2 ML VIAL ONE (14:48)
[2019-05-13] MEDS ORDERED: fentaNYL (PF) 50 MCG/ML 2 ML AMP ONE (14:48)
[2019-05-13] MEDS ORDERED: PHENYLEPHRINE-0.9% NACL SYG 1 MG/10 ML SYRINGE ONE (14:48)
[2019-05-13] MEDS ORDERED: GLYCOPYRROLATE 0.2 MG/ML 2 ML VIAL ONE (14:48)
[2019-05-13] MEDS ORDERED: NEOSTIGMINE 1 MG/ML 10 ML VIAL ONE (14:48)
[2019-05-13] MEDS ORDERED: ePHEDrine SULFATE/0.9% NACL/PF 50 MG/5 ML SYRINGE IV ONE (14:48)
[2019-05-13] MEDS ORDERED: ROCURONIUM BROMIDE 10 MG/ML 10 ML VIAL IV ONE (14:48)
[2019-05-13] MEDS ORDERED: LIDOCAINE 1% INJ 10MG/ML (20 ML MDV) ONE (14:48)
[2019-05-13] MEDS ORDERED: SUCCINYLCHOLINE CHLORIDE 100 MG/5 ML SYR IV ONE (14:48)
[2019-05-13] MEDS ORDERED: PROPOFOL 10 MG/ML 20 ML VIAL IV ONE (14:48)
[2019-05-13] MEDS ORDERED: BUPIVACAINE (PF) 0.25% 30 ML VIAL SQ ONE ×2 (15:19→15:46)
--- NOTE | 2019-05-13 16:16 | P.OP ---
Date of Procedure: 05/13/19 Procedure(s) Performed: PREOPERATIVE DIAGNOSIS: Left groin hernia POSTOPERATIVE DIAGNOSIS: Left indirect inguinal hernia, small left femoral hernia PROCEDURE: Left inguinal hernia repair with mesh, left femoral hernia repair SURGEON: Estela EBL: Minimal ANESTHESIA: General COMPLICATIONS: None OPERATIVE PROCEDURE: Patient was placed in the operating table in the supine position and placed under general anesthesia. An oblique incision was made in the left groin. Dissection down through the subcutaneous tissues took place using electrocautery. The patient's hernia was easily identified in the subcutaneous tissues. The hernia had an ecchymotic appearance. The hernia sac was grasped and carefully dissected. Initially it appeared this was possibly femoral in origin however as we dissected the hernia sac we identified it was coming from the external inguinal ring. The external oblique was incised sharply. The hernia was followed to its opening at the internal inguinal ring. The fatty contents within the hernia sac were reduced back into the peritoneal cavity. The hernia sac was then ligated using 2 0 silk stick tie sutures. A 2 inch by four-inch Prolene mesh was cut to fit on the exposed fascia. This was sutured to the pubic tubercle the folding edge of the inguinal ligament and the conjoined tendon. It should be noted the round ligament was ligated during this procedure. The external oblique was then reapproximated using a running 2-0 Vicryl suture. I did dissect the femoral spaces well just to be sure that we were not dealing with a femoral hernia and noticed a small fatty bulge in that area. As I dissected I identified a very small fat containing femoral hernia. The fat was reduced back into the preperitoneal space and a single stitch between the inguinal ligament and Daniel's ligament took place using 0 silk. The area was irrigated. No bleeding was seen. The subcutaneous tissues were reapproximated using a 3-0 Vicryl sutures. The skin was closed using 4-0 Monocryl sutures. Skin glue and sterile dressings were then applied. DISPOSITION: Stable to recovery room
[2019-05-13] MEDS: HYDROmorphone 0.5 MG/0.5 ML SYRINGE IVP ONE ×4 (16:19→17:24)
[2019-05-13] MEDS ORDERED: LACTATED RINGERS 1,000 ML IV ONE (17:12)
[2019-05-13] MEDS ORDERED: fentaNYL (PF) 50 MCG/ML 2 ML AMP IV ONE (17:20)
[2019-05-13] MEDS: HYDROcodone/APAP 15 ML SOLUTION PO PRN (20:08)
--- NOTE | 2019-05-14 00:56 | P.PN ---
Progress Note - Text Progress Note Date: 05/13/19 Chief Complaint: Left groin pain Interval history: This is a very pleasant 73-year-old patient of Dr. Wray. Other extensive medical history. Chronic stable medical conditions include esophagitis, peptic ulcer disease, chronic essential hypertension, primary osteoarthritis of multiple joints bilateral, depression, hypothyroidism, esophageal dysmotility, anxiety not otherwise specified,, esophageal constriction with repeated dilatation. Patient is followed at [facility] for the same. Patient has recently noticed that she began having pain in the left groin area especially when she bends over or she lifts her head off the bed. She notices a bulge that is often tender. 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 She was admitted for the same. No nausea vomiting. No fever or chills. The swelling of the groin is intermittent. Admitted with left femoral/inguinal hernia, reducible, severe hypokalemia and, acute kidney injury from Lasix Today-stable. Laying in bed. Saw this patient is of good. Awaiting surgery.. Review of systems: Was done for constitutional, cardiovascular, GI, pulmonary. relevant finding as above Active Medications Hydrocodone Bitart/Acetaminophen (Dorris Elixir 7.5-325mg/15ml) 15 ml PO TID PRN PRN Reason: Pain Last Admin: 05/13/19 20:08 Dose: 15 ml Documented by: Cyanocobalamin (Vitamin B-12) 500 mcg PO DAILY [facility] Last Admin: 05/13/19 07:12 Dose: Not Given Documented by: Dicyclomine HCl (Bentyl) 10 mg PO TID [facility] Last Admin: 05/13/19 23:42 Dose: 10 mg Documented by: Ergocalciferol (Vitamin D2) 50,000 unit PO TH [facility] Levothyroxine Sodium (Synthroid) 100 mcg PO 0630 [facility] Last Admin: 05/13/19 07:11 Dose: Not Given Documented by: Magnesium Oxide (Mag-Ox) 400 mg PO DAILY [facility] Last Admin: 05/13/19 07:12 Dose: Not Given Documented by: Methocarbamol (Robaxin) 750 mg PO TID PRN PRN Reason: Muscle Spasm Last Admin: 05/12/19 14:25 Dose: 750 mg Documented by: Metoprolol Succinate (Toprol Xl) 50 mg PO DAILY [facility] Last Admin: 05/13/19 07:35 Dose: Not Given Documented by: Miscellaneous Information (Potassium Per Protocol) 1 each MISCELLANE DAILY PRN; Protocol PRN Reason: Per Protocol Morphine Sulfate (Morphine Sulfate (Inj)) 4 mg IV Q4HR PRN PRN Reason: Severe Pain Last Admin: 05/13/19 23:42 Dose: 4 mg Documented by: Naloxone HCl (Narcan) 0.2 mg IV Q2M PRN PRN Reason: Opioid Reversal Nystatin (Mycostatin Oral Susp) 500,000 unit PO QID [facility] Last Admin: 05/13/19 23:42 Dose: 500,000 unit Documented by: Ondansetron HCl (Zofran) 4 mg IVP Q6HR PRN PRN Reason: Nausea And Vomiting Last Admin: 05/13/19 07:40 Dose: 4 mg Documented by: Pantoprazole Sodium (Protonix) 40 mg PO BID [facility] Last Admin: 05/13/19 20:08 Dose: 40 mg Documented by: Pyridoxine HCl (Vitamin B-6) 100 mg PO DAILY [facility] Last Admin: 05/13/19 07:12 Dose: Not Given Documented by: Sumatriptan Succinate (Imitrex) 50 mg PO BID PRN PRN Reason: Migraine Headache Last Admin: 05/11/19 05:40 Dose: 50 mg Documented by: Physical examination: VITAL SIGNS: 98.1, 83, 20, 142/81, 95% room air GENERAL: Sitting at edge of bed, comfortable. EYES: Pupils equal. Conjunctiva normal. HEENT: External appearance of nose and ears normal, oral cavity grossly normal. NECK: JVD not raised; masses not palpable. HEART: First and second heart sounds are normal; no edema. LUNGS: Respiratory rate normal; clear to auscultation. ABDOMEN: Soft, nontender, liver spleen not palpable, no masses palpable. When patient lifts her head off the bed that is a very small bulge in the left inguinal area PSYCH: [Alert and oriented x3; mood and affect slightly anxious MUSCULOSKELETAL: Evidence of OA especially in the hands and knees l. INVESTIGATIONS, reviewed in the clinical context: Potassium 4 bun 9 crit 0.7 to Previous testing White count 5.9 hemoglobin 15.7 potassium 2.5 bun 36 creatinine 1.28 EKG tracing personally reviewed by me-shows normal sinus rhythm CT abdomen-possible fecal stasis Assessment: -Severe hypokalemia, corrected -Acute renal failure, likely prerenal in the patient's was on Lasix, corrected -Small intermittent left inguinal hernia or femoral but only manifests itself with certain activities., For surgery later today per Dr. Booth -Chronic esophagitis -Essential hypertension -Primary osteoarthritis -Depression -Hypothyroidism -Esophageal dysmotility -Anxiety but otherwise specified -Chronic esophageal constriction with repeated dilatations Plan: Discussed with Dr. Booth. Patient due to go down for surgery later today. Other medications to continue.
[2019-05-14] MEDS ORDERED: HYDROmorphone 1 MG/ML 1 ML SYRINGE IM PRN (01:05)
[2019-05-14] MEDS: LEVOTHYROXINE 100 MCG TAB PO SCH (05:25)
[2019-05-14] MEDS: HYDROmorphone 1 MG/ML 1 ML SYRINGE IVP PRN ×3 (05:26→16:21)
[2019-05-14] MEDS: ONDANSETRON 4 MG/2 ML VIAL IVP PRN (08:02)
[2019-05-14 08:12] VITALS: RESP 12
[2019-05-14] MEDS: CYANOCOBALAMIN 500 MCG TAB PO SCH (09:00)
[2019-05-14] MEDS: DICYCLOMINE 10 MG CAP PO SCH ×2 (09:00→15:20)
[2019-05-14] MEDS: MAGNESIUM OXIDE 400 MG TAB PO SCH (09:00)
[2019-05-14] MEDS: PANTOPRAZOLE 40 MG TABLET PO SCH (09:01)
[2019-05-14] MEDS: NYSTATIN 100,000 UNIT/ML SUSP 500,000 UNIT/5 ML CUP PO SCH ×2 (09:01→15:20)
[2019-05-14] MEDS: METOPROLOL SUCCINATE (ER) 50 MG TAB.ER.24H PO SCH (09:01)
[2019-05-14] MEDS: PYRIDOXINE 50 MG TAB PO SCH (09:01)
--- NOTE | 2019-05-14 11:48 | P.PN ---
Subjective Progress Note Date: 05/14/19 Principal diagnosis: Left groin hernia Patient doing better today. Still having some postoperative pain. No drainage. She is ambulating. Objective - Vital Signs Vital signs: Vital Signs Temp 98 F 05/14/19 07:00 Pulse 78 05/14/19 07:00 Resp 12 05/14/19 07:00 BP 132/82 05/14/19 07:00 Pulse Ox 96 05/14/19 07:00 Intake & Output 05/13/19 05/14/19 05/14/19 18:59 06:59 18:59 Intake Total 1050 Output Total 10 Balance 1040 Intake: IV 1050 Output: Estimated Blood Loss 10 Other: Voiding Method Toilet Toilet # Voids 2 - Exam Abdomen: Soft, nondistended, incision clean and dry - Labs CBC & Chem 7: 05/11/19 05:53 05/13/19 06:43 Assessment and Plan (1) Left groin hernia Narrative/Plan: Patient overall doing better. Continue analgesics. Anticipate discharge today. Current Visit: Yes Status: Acute Code(s): K40.90 - UNIL INGUINAL HERNIA, W/O OBST OR GANGR, NOT SPCF RECUR SNOMED Code(s): 173466808
[2019-05-14] MEDS: HYDROcodone/APAP 15 ML SOLUTION PO PRN (11:54)
[2019-05-14 15:19] VITALS: BP 147/81; PULSE 79; TEMP 98.2
[2019-05-14] MEDS: SUMAtriptan SUCCINATE 50 MG TAB PO PRN (16:17)
[2019-05-15] MEDS ORDERED: ERGOCALCIFEROL 50,000 UNIT CAP PO SCH (09:00)
--- NOTE | 2019-05-16 18:14 | P.DS ---
Providers Date of admission: 05/10/19 18:58 Expected date of discharge: 05/14/19 Attending physician: Rich Wong Consults: 05/10/19 19:01 Consult Physician Stat Consulting Provider: Grant Palmer Consult Reason/Comments: inguinal hernia, previously established patient Do you want consulting provider notified?: Yes 05/10/19 19:21 Consult Physician Stat Consulting Provider: Toro Simpson Consult Reason/Comments: evlauation of pacemaker Do you want consulting provider notified?: Yes [facility] Course: Chief Complaint: Left groin pain Hospital course: This is a very pleasant 73-year-old patient of Dr. Wray. Other extensive medical history. Chronic stable medical conditions include esophagitis, peptic ulcer disease, chronic essential hypertension, primary osteoarthritis of multiple joints bilateral, depression, hypothyroidism, esophageal dysmotility, anxiety not otherwise specified,, esophageal constriction with repeated dilatation. Patient is followed at [facility] for the same. Patient has recently noticed that she began having pain in the left groin area especially when she bends over or she lifts her head off the bed. She notices a bulge that is often tender. She decided to vacuum her house and when she was bending over to lease picker the wire she noticed increasing pain in his left groin area. She was admitted for the same. No nausea vomiting. No fever or chills. The swelling of the groin is intermittent. Admitted with left femoral/inguinal hernia, reducible, severe hypokalemia and, acute kidney injury from Lasix. Lasix was discontinued. And with hydration electrode abnormalities were corrected. Underwent repair of the femoral inquiring hernia by Dr. Booth. Doing well. Consultation: Dr. Booth from general surgery Physical examination: VITAL SIGNS: 98, 78, 12, 132/82, 96% on room air GENERAL: Sitting at edge of bed, comfortable. EYES: Pupils equal. Conjunctiva normal. HEENT: External appearance of nose and ears normal, oral cavity grossly normal. NECK: JVD not raised; masses not palpable. HEART: First and second heart sounds are normal; no edema. LUNGS: Respiratory rate normal; clear to auscultation. ABDOMEN: Soft, nontender, liver spleen not palpable, no masses palpable. Left groin incision healing well PSYCH: [Alert and oriented x3; mood and affect slightly anxious MUSCULOSKELETAL: Evidence of OA especially in the hands and knees l. INVESTIGATIONS, reviewed in the clinical context: Potassium 4 bun 9 crit 0.7 to Previous testing White count 5.9 hemoglobin 15.7 potassium 2.5 bun 36 creatinine 1.28 EKG tracing personally reviewed by me-shows normal sinus rhythm CT abdomen-possible fecal stasis Assessment: -Severe hypokalemia, corrected -Acute renal failure, likely prerenal in the patient's was on Lasix, corrected -Small intermittent left inguinal/femoral hernia status post surgical repair -Chronic esophagitis -Essential hypertension -Primary osteoarthritis -Depression -Hypothyroidism -Esophageal dysmotility -Anxiety but otherwise specified -Chronic esophageal constriction with repeated dilatations Disposition: Home Plan - Discharge Summary Discharge Rx Participant: Yes New Discharge Prescriptions: Continue SUMAtriptan SUCCINATE [Imitrex] 50 mg PO BID PRN PRN Reason: Migraine Headache Pantoprazole Sodium [Protonix] 40 mg PO BID Ergocalciferol (Vitamin D2) [Vitamin D2] 50,000 unit PO TH Magnesium Oxide [Mag-Ox] 400 mg PO DAILY Methocarbamol [Robaxin] 750 mg PO TID PRN PRN Reason: Muscle Spasm Pyridoxine HCl (Vitamin B6) [Vitamin B-6] 100 mg PO DAILY Cyanocobalamin [Vitamin B-12] 500 mcg PO DAILY Ondansetron [Zofran ODT] 4 mg PO TID PRN PRN Reason: Nausea Nystatin 100,000 Unit/ml Susp [Mycostatin Oral Susp] 500,000 units PO QID Metoprolol Succinate (ER) [Toprol XL] 50 mg PO DAILY Hydrocodone/Acetaminophen [Hycet 7.5 mg-325 mg/15 ml Soln] 15 ml PO TID PRN PRN Reason: Pain Dicyclomine [Bentyl] 10 mg PO TID Levothyroxine Sodium [Synthroid] 100 mcg PO DAILY Discontinued Potassium Chloride [Klor-Con Sprinkle] 40 meq PO BID Furosemide [Lasix] 40 mg PO BID Discharge Medication List SUMAtriptan SUCCINATE [Imitrex] 50 mg PO BID PRN 02/15/16 [History] Pantoprazole Sodium [Protonix] 40 mg PO BID 04/25/17 [History] Ergocalciferol (Vitamin D2) [Vitamin D2] 50,000 unit PO TH 01/14/18 [History] Magnesium Oxide [Mag-Ox] 400 mg PO DAILY 01/14/18 [History] Methocarbamol [Robaxin] 750 mg PO TID PRN 01/14/18 [History] Cyanocobalamin [Vitamin B-12] 500 mcg PO DAILY 08/01/18 [History] Pyridoxine HCl (Vitamin B6) [Vitamin B-6] 100 mg PO DAILY 08/01/18 [History] Dicyclomine [Bentyl] 10 mg PO TID 05/10/19 [History] Hydrocodone/Acetaminophen [Hycet 7.5 mg-325 mg/15 ml Soln] 15 ml PO TID PRN 05/10/19 [History] Levothyroxine Sodium [Synthroid] 100 mcg PO DAILY 05/10/19 [History] Metoprolol Succinate (ER) [Toprol XL] 50 mg PO DAILY 05/10/19 [History] Nystatin 100,000 Unit/ml Susp [Mycostatin Oral Susp] 500,000 units PO QID 05/10/19 [History] Ondansetron [Zofran ODT] 4 mg PO TID PRN 05/10/19 [History] Follow up Appointment(s)/Referral(s): Grant Palmer MD [Medical Doctor] - 05/22/19 8:10 am Elroy Wray DO [Primary Care Provider] - 05/20/19 1:20 pm (with NEVILLE Sewell) Patient Instructions/Handouts: Inguinal Hernia Repair (GEN) Activity/Diet/Wound Care/Special Instructions: Follow-up as per surgery. Discharge Disposition: HOME SELF-CARE
== END 2019-05-14 17:00 | disposition home or self-care (01) | DRG 351 ==
LOC: EC 15:22 → 4SSUR 18:58
PROVIDERS: ADMIT Hospitalist; ATTEND Hospitalist
PROC: 0YU60JZ Supplement Left Inguinal Region with Synthetic Substitute, Open Approach (ICD-10-PCS; principal; 2019-05-13 14:52)
DX: K40.90 Unilateral inguinal hernia, without obstruction or gangrene, not specified as recurrent (principal); N17.9 Acute kidney failure, unspecified; I49.5 Sick sinus syndrome; K22.2 Esophageal obstruction; E03.9 Hypothyroidism, unspecified; E87.6 Hypokalemia; F32.9 Major depressive disorder, single episode, unspecified; F41.9 Anxiety disorder, unspecified; I10 Essential (primary) hypertension; I25.10 Atherosclerotic heart disease of native coronary artery without angina pectoris; I25.2 Old myocardial infarction; I48.0 Paroxysmal atrial fibrillation; K21.0 Gastro-esophageal reflux disease with esophagitis; M15.9 Polyosteoarthritis, unspecified; M79.7 Fibromyalgia; T50.1X5A Adverse effect of loop [high-ceiling] diuretics, initial encounter; G89.29 Other chronic pain; R74.8 Abnormal levels of other serum enzymes; R01.1 Cardiac murmur, unspecified; M54.9 Dorsalgia, unspecified; K27.9 Peptic ulcer, site unspecified, unspecified as acute or chronic, without hemorrhage or perforation; M81.0 Age-related osteoporosis without current pathological fracture; K22.4 Dyskinesia of esophagus; Z79.890 Hormone replacement therapy; Z79.899 Other long term (current) drug therapy; Z88.1 Allergy status to other antibiotic agents; Z88.2 Allergy status to sulfonamides; Z88.8 Allergy status to other drugs, medicaments and biological substances; Z90.49 Acquired absence of other specified parts of digestive tract; Z90.710 Acquired absence of both cervix and uterus; Z95.0 Presence of cardiac pacemaker; Z82.5 Family history of asthma and other chronic lower respiratory diseases; Z80.9 Family history of malignant neoplasm, unspecified; Z82.61 Family history of arthritis
CPT/HCPCS: 36415; 74176; 80048; 80053; 81003; 83605; 83690; 83735; 84132; 85025; 85610; 85730; 88302; 93005; 96361; 96365; 96366; 96375; 96376; 99285

== ENCOUNTER → 2019-06-26 | Outpatient (CLI) | payer MEDICARE, OTHER ==
[2019-06-26 14:07] LABS: Basophils % (A) 1 %; Eosinophils # (A) 0.1 k/uL (0-0.7); Eosinophils % (A) 2 %; HCT 44.4 % (34.0-46.0); HGB 14.5 gm/dL (11.4-16.0); Lymphocytes % (A) 17 %; MCH 33.3 pg (25.0-35.0); MCHC 32.7 g/dL (31.0-37.0); MCV 101.8 fL (80.0-100.0); Macrocytosis Slight; Mean Platelet Volume 7.4; Monocytes # (A) 0.4 k/uL (0-1.0); Monocytes % (A) 7 %; Neutrophils % (A) 71 %; Platelet Count 407 k/uL (150-450); RBC 4.36 m/uL (3.80-5.40); WBC 5.6 k/uL (3.8-10.6)
[2019-06-26 14:24] LABS: Appearance,Urine Clear (Clear); Bilirubin,Urine Negative (Negative); Blood,Urine Negative (Negative); Color,Urine Light Yellow; Glucose,Urine (UA) Negative (Negative); Ketones,Urine Negative (Negative); Leukocyte Esterase,Urine Negative (Negative); Nitrite,Urine Negative (Negative); PH, Urine 6.5 (5.0-8.0); Protein,Urine Negative (Negative); Urobilinogen,Urine <2.0 mg/dL (<2.0)
[2019-06-26 14:26] LABS: Protein/Creatinine Ratio,Urine 0.552
[2019-06-26 18:46] LABS: Protein, Total 7.7 g/dL (6.2-8.2)
[2019-06-26 18:54] LABS: Ferritin 33.2 ng/mL (10.0-291.0)
[2019-06-26 19:20] LABS: % Iron Saturation 31.63 (12.00-45.00); African American GFR (CKD) 58.5 (60.0-200.0); Albumin 4.7 g/dL (3.80-4.90); Anion Gap 12.5 mmol/L (4.00-12.00); BUN/Creat Ratio 32.73 Ratio (12.00-20.00); Carbon Dioxide 34.5 mmol/L (21.6-31.8); Magnesium 2.1 mg/dL (1.5-2.4); Non-African American GFR(CKD) 50.5 (60.0-200.0); Phosphorus 3.3 mg/dL (2.4-5.1); Potassium 3.6 mmol/L (3.5-5.5); Uric Acid 9.2 mg/dL (2.9-7.7)
[2019-06-27 10:23] LABS: Free Kappa Lt Chain Qnt, Urine 0.916 mg/dL (0.140-2.420)
[2019-06-27 11:09] LABS: Free Lambda Lt Chain Qt, Urine 0.06 mg/dL (0.020-0.670)
[2019-06-27 13:11] LABS: Albumin 4.25 g/dL (3.80-4.90); Gamma Globulin 1.44 g/dL (0.70-1.50)
== END | disposition home or self-care (01) ==
LOC: LABWHC1 13:33
PROVIDERS: ATTEND Internal Medicine Nephrology
DX: N17.9 Acute kidney failure, unspecified (principal); E55.9 Vitamin D deficiency, unspecified; R80.9 Proteinuria, unspecified; D64.9 Anemia, unspecified; N39.0 Urinary tract infection, site not specified; M10.9 Gout, unspecified; E21.3 Hyperparathyroidism, unspecified; E83.39 Other disorders of phosphorus metabolism
CPT/HCPCS: 36415; 80048; 81003; 82040; 82306; 82570; 82728; 83540; 83550; 83735; 83883; 83970; 84100; 84156; 84165; 84550; 85025; 86335

== ENCOUNTER → 2020-01-09 | Outpatient (CLI) | payer MEDICARE, OTHER ==
--- NOTE | 2020-01-09 14:41 | CT ---
EXAMINATION TYPE: CT abdomen pelvis wo con DATE OF EXAM: 01/09/2020 COMPARISON: CT abdomen pelvis 05/10/2019 HISTORY: vomiting, diffuse abd pain CT DLP: 274 mGycm Automated exposure control for dose reduction was used. TECHNIQUE: Helical acquisition of images was performed from the lung bases through the pelvis. CONTRAST: Performed with Oral Contrast and without intravenous contrast. FINDINGS: LUNG BASES: No pleural effusion. Cardiac pacemaker leads. Cardiac size normal. Trace pericardial effu shira. LIVER: Normal attenuation and size. BILIARY SYSTEM: Status post cholecystectomy. No intrahepatic or extrahepatic biliary ductal dilatatio n. PANCREAS: No peripancreatic stranding or fluid collection. SPLEEN: Not enlarged. ADRENALS: Normal. KIDNEYS: No hydronephrosis or urolithiasis. BOWEL: Small hiatal hernia. No evidence of obstruction or inflammation. PERITONEUM: No pneumoperitoneum. No free fluid. LYMPH NODES: No lymphadenopathy. PELVIS: Underdistended urinary bladder. Status post hysterectomy. VASCULATURE: No abdominal aortic aneurysm. MUSCULOSKELETAL: Unchanged compression deformity of L4 versus 05/10/2019 comparison. Decreased osseou s mineralization. IMPRESSION: No acute abdominopelvic findings to explain patient's vomiting and abdominal pain.
== END | disposition home or self-care (01) ==
LOC: RADCTMAIN 09:33
PROVIDERS: ATTEND Surgery
DX: R11.10 Vomiting, unspecified (principal); R10.9 Unspecified abdominal pain
CPT/HCPCS: 74176

== ENCOUNTER → 2020-01-27 | Outpatient (CLI) | payer MEDICARE, OTHER ==
--- NOTE | 2020-01-29 09:58 | MM ---
Reason for exam: screening (asymptomatic). Last mammogram was performed 5 years and 4 months ago. History: Patient is postmenopausal. Physical Findings: A clinical breast exam by your physician is recommended on an annual basis and results should be correlated with mammographic findings. MG 3D Screening Mammo W/Cad Bilateral CC and MLO view(s) were taken. Prior study comparison: September 24, 2014, bilateral MG diagnostic mammo w CAD [facility]. February 18, 2013, [facility] DIGITAL RIGHT MAMMOGRAM w/CAD. The breast tissue is heterogeneously dense. This may lower the sensitivity of mammography. There are benign appearing vascular calcifications bilaterally. There is no discrete abnormality. ASSESSMENT: Benign, BI-RAD 2 RECOMMENDATION: Routine screening mammogram of both breasts in 1 year.
== END | disposition home or self-care (01) ==
LOC: RADMAMWWP 10:55
PROVIDERS: ATTEND Family Medicine
DX: Z12.31 Encounter for screening mammogram for malignant neoplasm of breast (principal)
CPT/HCPCS: 77063; 77067

== ENCOUNTER 2020-02-06 21:06 | Inpatient (IN) | payer MEDICARE, OTHER ==
[2020-02-06] MEDS ORDERED: SODIUM CHLORIDE 0.9% 1,000 ML IV ONE (21:26)
[2020-02-06] MEDS ORDERED: Acetaminophen-Codeine 300-30mg TAB PO STA (21:51)
[2020-02-06] MEDS ORDERED: ACET/COD 300 MG/30 MG STARTER PACK 6 TAB BTL PO STA (21:51)
--- NOTE | 2020-02-06 21:59 | XR ---
EXAMINATION TYPE: XR chest 2V DATE OF EXAM: 02/06/2020 COMPARISON: 08/02/2018 HISTORY: Short of breath TECHNIQUE: 2 views FINDINGS: Heart is normal. Lungs are clear of infiltrate. There is left axillary pacemaker. There is vertebroplasty in the mid thoracic spine. There is osteopenia. Costophrenic angles are clear. IMPRESSION: No active cardiopulmonary disease. No change.
[2020-02-06 22:14] LABS: Basophils % (A) 1 %; Eosinophils # (A) 0.6 k/uL (0-0.7); Eosinophils % (A) 8 %; HCT 42.3 % (34.0-46.0); HGB 13.6 gm/dL (11.4-16.0); Lymphocytes % (A) 26 %; MCH 31.5 pg (25.0-35.0); MCHC 32.1 g/dL (31.0-37.0); MCV 98.2 fL (80.0-100.0); Macrocytosis Slight; Mean Platelet Volume 8.2; Monocytes # (A) 0.6 k/uL (0-1.0); Monocytes % (A) 7 %; Neutrophils # (A) 4.2 k/uL (1.3-7.7); Neutrophils % (A) 55 %; Platelet Count 310 k/uL (150-450); RBC 4.31 m/uL (3.80-5.40); RDW 15.8 % (11.5-15.5); WBC 7.6 k/uL (3.8-10.6)
[2020-02-06 22:19] LABS: D-Dimer 0.31 mg/L FEU (<0.60); INR 0.9 (<1.2); Partial Thromboplastin Time 22.3 sec (22.0-30.0); Prothrombin Time 9.8 sec (9.0-12.0)
[2020-02-06 22:28] LABS: Albumin 4.1 g/dL (3.5-5.0); Calcium 9.9 mg/dL (8.4-10.2); Magnesium 2.3 mg/dL (1.6-2.3); Potassium 4.9 mmol/L (3.5-5.1); Total Bilirubin 0.3 mg/dL (0.2-1.3); Total Protein 7.3 g/dL (6.3-8.2)
[2020-02-06] MEDS ORDERED: DILTIAZEM 125 MG in SODIUM CHLORIDE 0.9% 100 ML IV SCH (23:30)
[2020-02-06] MEDS ORDERED: ONDANSETRON 4 MG/2 ML VIAL IVP STA (23:34)
[2020-02-06] MEDS ORDERED: MORPHINE SULFATE 4 MG/ML SYRINGE IVP STA (23:46)
[2020-02-06] MEDS ORDERED: MORPHINE SULFATE 4 MG/ML SYRINGE IV PRN (23:47)
[2020-02-06] MEDS ORDERED: NALOXONE 0.4 MG/ML 1 ML VIAL IV PRN (23:47)
--- NOTE | 2020-02-06 23:47 | ED ---
Chest Pain HPI - General Chief Complaint: Chest Pain Stated Complaint: Abn Labs Time Seen by Provider: 02/06/20 21:10 Source: patient Mode of arrival: ambulatory Limitations: no limitations - History of Present Illness Initial Comments: Patient is a 74-year-old female with past medical history of A. fib, hypertension who presents to the emergency department with reported elevated potassium level. She states that she saw Dr. Wray one week ago in his office. She had laboratory studies performed which demonstrated a low potassium of 2.9. She normally takes potassium daily however they doubled her dose. States that she's been taking 40 mEq since Sunday. She followed up in office today to have repeat laboratory studies drawn and was told that her potassium was 6.2. There recommend that she come in to the emergency room for evaluation. While sitting in triage the patient ported to having palpitations. States it been persistent since last night. Pulse ox demonstrate the patient had a heart rate in the 140s. She does have a history of A. fib. States that she had an ablation and had improvement heart rates up until last fall when she got acutely sick. Reports that she's had intermittent episodes of A. fib with RVR since. Patient is not on any intake medication. States that she refuses it. She denies any additional symptoms include shortness of breath, chest pain, abdominal pain, nausea or vomiting. No other alleviating precipitating or modifying factors - Related Data Home Medications Medication Instructions Recorded Confirmed SUMAtriptan succinate [Imitrex] 50 mg PO BID PRN 02/15/16 02/06/20 Ergocalciferol (Vitamin D2) 50,000 unit PO FR 01/14/18 02/06/20 [Vitamin D2] Dicyclomine [Bentyl] 10 mg PO TID 05/10/19 02/06/20 Metoprolol Succinate (ER) [Toprol 50 mg PO DAILY 05/10/19 02/06/20 XL] Allopurinol [Zyloprim] 100 mg PO DAILY 02/06/20 02/06/20 Calcitriol [Rocaltrol] 0.25 mcg PO MOTH 02/06/20 02/06/20 Denosumab [Prolia] 60 mg SQ Q180D 02/06/20 02/06/20 Furosemide [Lasix] 40 mg PO DAILY 02/06/20 02/06/20 Furosemide [Lasix] 80 mg PO DAILY@1800 02/06/20 02/06/20 L.acidoph,Paracasei, B.lactis 1 cap PO DAILY 02/06/20 02/06/20 [Probiotic] Levothyroxine Sodium [Synthroid] 88 mcg PO DAILY 02/06/20 02/06/20 Pantoprazole Sodium [Protonix] 40 mg PO DAILY 02/06/20 02/06/20 Previous Rx's Medication Instructions Recorded Potassium Chloride 40 meq PO DAILY #0 02/07/20 Allergies Allergy/AdvReac Type Severity Reaction Status Date / Time adhesive Allergy RASH FROM Verified 02/06/20 23:14 EKG STICKERS celecoxib [From Celebrex] Allergy Rash/Hives Verified 02/06/20 23:14 sertraline HCl [From Zoloft] Allergy Rash/Hives Verified 02/06/20 23:14 sulfamethoxazole Allergy Anaphylaxis Verified 02/06/20 23:14 [From Bactrim] trimethoprim [From Bactrim] Allergy Anaphylaxis Verified 02/06/20 23:14 cholestyramine AdvReac DIZZY/CONFU Verified 02/06/20 23:14 SED Review of Systems ROS Statement: Those systems with pertinent positive or pertinent negative responses have been documented in the HPI. ROS Other: All systems not noted in ROS Statement are negative. EKG Findings - EKG Comments: EKG Findings:: EKG demonstrates A. fib with a rapid ventricular rate. Rate of 145. QRS 76. QTC of 434. No acute ST segment elevations or depressions Past Medical History Past Medical History: Atrial Fibrillation, Blood Disorder, Coronary Artery Disease (CAD), Chest Pain / Angina, Fibromyalgia, GERD/Reflux, GI Bleed, Hypertension, Myocardial Infarction ([place]), Musculoskeletal Disorder, Osteoarthritis (OA), Thyroid Disorder Additional Past Medical History / Comment(s): Pacemaker HFH in June 2016 for Syncopy/Tachybrady syndrome Paroxysmal AFib, has had RVR. RHEUMATIC FEVER; Heart Murmur. chronic back pain, dee shoulder pain. SEVERE OSTEOPROS ,Vertigo,DJD. GI ulcers, esophagitis/esophageal stricture; partially blocked bile duct Last Myocardial Infarction Date:: 2002 History of Any Multi-Drug Resistant Organisms: None Reported Past Surgical History: Appendectomy, Cardiac Ablation, Cholecystectomy, Ear Surgery, Heart Catheterization, Hysterectomy, Orthopedic Surgery, Pacemaker, Tonsillectomy Additional Past Surgical History / Comment(s): ORIF LEFT LOWER ARM, HAS HARDWARE. Numerous DILATATION OF ESOPHAGUS-recently done in 06/2016 at [facility] pt stated bx were neg, colonoscopy. Pacemaker (ADAPTA) placed 07/07 at [facility]. Cardiac Cath in 2002. Bilateral stapedectomies. CARDIAC ABLATION 09/2016. Hiatal hernia repair Past Anesthesia/Blood Transfusion Reactions: Family History of Problems w/ Anesthesia, Motion Sickness, Postoperative Nausea & Vomiting (PONV) Additional Past Anesthesia/Blood Transfusion Reaction / Comment(s): no problems with prior blood transfusion. BROTHER HAS PONV. Type of Cardiac Device: Permanent Pacemaker Device Placement Date:: 06/2016 Past Psychological History: No Psychological Hx Reported Smoking Status: Never smoker Past Alcohol Use History: None Reported Past Drug Use History: None Reported - Past Family History Brother(s) Family Medical History: Cancer Additional Family Medical History / Comment(s): throat - currently in remission (05/10/19) Father Family Medical History: Pneumonia Additional Family Medical History / Comment(s): EMPHYSEMA Mother Family Medical History: COPD, Rheumatoid Arthritis (RA) Additional Family Medical History / Comment(s): EMPHYSEMA General Exam Limitations: no limitations General appearance: alert, in no apparent distress Head exam: Present: atraumatic, normocephalic, normal inspection Eye exam: Present: normal appearance, PERRL, EOMI. Absent: scleral icterus, c onjunctival injection, periorbital swelling ENT exam: Present: normal exam, mucous membranes moist Neck exam: Present: normal inspection. Absent: tenderness, meningismus, lymphadenopathy Respiratory exam: Present: normal lung sounds bilaterally. Absent: respiratory distress, wheezes, rales, rhonchi, stridor Cardiovascular Exam: Present: tachycardia, irregular rhythm, normal heart sounds. Absent: systolic murmur, diastolic murmur, rubs, gallop, clicks GI/Abdominal exam: Present: soft, normal bowel sounds. Absent: distended, tenderness, guarding, rebound, rigid Extremities exam: Present: normal inspection, full ROM, normal capillary refill. Absent: tenderness, pedal edema, joint swelling, calf tenderness Back exam: Present: normal inspection Neurological exam: Present: alert, oriented X3, CN II-XII intact Psychiatric exam: Present: normal affect, normal mood Skin exam: Present: warm, dry, intact, normal color. Absent: rash Course Vital Signs 02/06/20 02/06/20 02/06/20 21:09 22:00 22:08 Temperature 98.3 F Pulse Rate 99 124 H Pulse Rate [ 137 H Ui Application Developer ] Respiratory 20 16 Rate Blood Pressure 140/66 151/100 Blood Pressure [Right Arm] O2 Sat by Pulse 99 94 L Oximetry 02/06/20 02/07/20 02/07/20 23:00 00:00 00:30 Temperature Pulse Rate 126 H 140 H 89 Pulse Rate [ Ui Application Developer ] Respiratory 16 16 16 Rate Blood Pressure 103/91 120/77 Blood Pressure [Right Arm] O2 Sat by Pulse 95 97 95 Oximetry 02/07/20 01:45 Temperature 97.9 F Pulse Rate Pulse Rate [ 78 Ui Application Developer ] Respiratory 18 Rate Blood Pressure Blood Pressure 111/76 [Right Arm] O2 Sat by Pulse 94 L Oximetry Chest Pain MDM - MDM Upon return of the patient's placed in a trauma 2. She is placed on continuous pulse ox and cardiac monitoring. 12-lead EKG was performed which demonstrates A. fib with a rapid ventricular rate. Peripheral IV is established. Laboratory studies were conducted. She was given a liter bolus of normal saline for anticipated hyperkalemia. Laboratory studies to return to demonstrated the past of 4.9. D-dimer is 0.31. Troponin is negative. BNP 152. Chest x-ray demonstrates no active cardiopulmonary disease. Patient continues to maintain an A. fib rhythm with a A rapid ventricular rate. Because of this the patient started on a Cardizem drip. I did recommend hospital admission for which patient did agree. I also recommended heparizing the patient but she refused. She understands the risks including permament disability and due to risk of strokes, etc. Patient will be admitted to Dr. Wong with cardiology consult. Patient remained in stable condition awaiting a bed on the floor Critical Care Time Critical Care Time: Yes Critical Care Time: 32 minutes Disposition Clinical Impression: Atrial fibrillation with RVR, Hyperkalemia Disposition: ADMITTED IP TO THIS HOSP Condition: Stable Is patient prescribed a controlled substance at d/c from ED?: No Decision to Admit Reason: Admit from EC Decision Date: 02/06/20 Decision Time: 23:47
[2020-02-07 02:16] VITALS: TEMP 97.9
[2020-02-07 04:20] LABS: Basophils # (A) 0.1 k/uL (0-0.2); Basophils % (A) 1 %; Eosinophils # (A) 0.6 k/uL (0-0.7); Eosinophils % (A) 8 %; HCT 38.3 % (34.0-46.0); HGB 12.1 gm/dL (11.4-16.0); Hypochromasia Slight; Lymphocytes # (A) 2.1 k/uL (1.0-4.8); Lymphocytes % (A) 28 %; MCH 31.6 pg (25.0-35.0); MCHC 31.5 g/dL (31.0-37.0); MCV 100.2 fL (80.0-100.0); Macrocytosis Slight; Mean Platelet Volume 7.7; Monocytes # (A) 0.3 k/uL (0-1.0); Monocytes % (A) 4 %; Neutrophils # (A) 4.4 k/uL (1.3-7.7); Neutrophils % (A) 58 %; Platelet Count 254 k/uL (150-450); RBC 3.83 m/uL (3.80-5.40); RDW 15.7 % (11.5-15.5); WBC 7.6 k/uL (3.8-10.6)
[2020-02-07 04:40] LABS: Calcium 8.8 mg/dL (8.4-10.2); Potassium 4.7 mmol/L (3.5-5.1)
[2020-02-07 08:41] VITALS: BP 103/54; PULSE 68; RESP 16
[2020-02-07] MEDS ORDERED: METOPROLOL SUCCINATE (ER) 50 MG TAB.ER.24H PO SCH (09:30)
[2020-02-07] MEDS ORDERED: SUMAtriptan succinate 50 MG TAB PO PRN (10:42)
[2020-02-07] MEDS ORDERED: LEVOTHYROXINE 88 MCG TAB PO SCH (10:45)
[2020-02-07] MEDS ORDERED: FUROSEMIDE 40 MG TAB PO SCH (10:45)
[2020-02-07] MEDS ORDERED: PANTOPRAZOLE 40 MG TABLET PO SCH (10:45)
[2020-02-07] MEDS ORDERED: allopurinoL 100 MG TAB PO SCH (10:45)
[2020-02-07] MEDS ORDERED: LACTOBACILLUS ACIDOPH & BULGAR 1 EACH PACKET PO SCH (10:45)
[2020-02-07] MEDS ORDERED: DICYCLOMINE 10 MG CAP PO SCH (10:45)
--- NOTE | 2020-02-07 14:54 | P.CRDCN ---
History of Present Illness History of present illness: HISTORY OF PRESENTING ILLNESS This is a pleasant 74-year-old female past medical history significant for paroxysmal atrial fibrillation not on intermediate designer anticoagulation secondary to the patient's choice. She follows in the office with Dr. Penn. We have been asked to see in consultation for atrial fibrillation with rapid ventricular rate. She came To the hospital and advice of her primary care physician secondary to an outpatient potassium level of 6.0. The patient states for the previous few months she has had poor oral intake, frequent constipation and abdominal discomfort causing her to have poor appetite and poor oral intake. On arrival she was found to be in A. fib with a heart rate of 145. Chest x-ray was unremarkable. She was initiated on Cardizem infusion. She has since converted to sinus mechanism. She is seen and examined resting comfortably sitting up in bed in no acute distress. She denies ever having had symptoms of palpitations but she did feel a knot sensation in the left precordial region that radiated to the base of her left neck and her left shoulder. The symptoms have subsided. Laboratory data reviewed, sodium 139, potassium 4.7, creatinine 0.87, magnesium 2.3, cardiac enzymes negative 3 and NT proBNP 152. Most recent echocardiogram obtained in the office November 2019 revealed preserved LV systolic function with ejection fraction 55%, mildly dilated left atrium and right atrium, mild to moderate aortic regurgitation, moderate mitral regurgitation and moderate tricuspid regurgitation. REVIEW OF SYSTEMS At the time of my exam: CONSTITUTIONAL: Denies fever or chills. CARDIOVASCULAR: Denies chest pain, shortness of breath, orthopnea, PND or palpitations. RESPIRATORY: Denies cough. GASTROINTESTINAL: Denies abdominal pain, diarrhea, constipation, nausea or vomiting. MUSCULOSKELETAL: Denies myalgias. NEUROLOGIC: Denies numbness, tingling or weakness. ENDOCRINE: Denies fatigue, weight change, polydipsia or polyurina. GENITOURINARY: Denies burning, hematuria or urgency with micturation. HEMATOLOGIC: Denies history of anemia or bleeding. PHYSICAL EXAMINATION Blood pressure 103/54 heart rate 68 afebrile and maintaining oxygen saturation on room air. CONSTITUTIONAL: No apparent distress. HEENT: Head is normocephalic. Pupils are equal, round. Sclerae anicteric. Mucous membranes of the mouth are moist. No JVD. No carotid bruit. CHEST EXAMINATION: Lungs are clear to auscultation. No chest wall tenderness is noted on palpation or with deep breathing. HEART EXAMINATION: Regular rate and rhythm. S1, S2 heard. Systolic ejection murmur at the base, no gallops or rub. ABDOMEN: Soft, nontender. Positive bowel sounds. EXTREMITIES: 2+ peripheral pulses, no lower extremity edema and no calf tenderness. NEUROLOGIC EXAMINATION: Patient is awake, alert and oriented x3. ASSESSMENT Paroxysmal atrial fibrillation with rapid ventricular rate Valvular heart disease PLAN Discontinue Cardizem as the patient has converted to sinus mechanism. Resume metoprolol as previously ordered. Obtain post conversion EKG. Discussed with the patient need for anticoagulation. She would like to discuss further with Dr. Penn and prefers not to be any anticoagulation secondary to frequent abdominal concerns that she feels as though she is at increased risk for bleeding. Discussed with her the possibility of a watchman procedure. She has been advised to do some research and speak with Dr. Penn in the office regarding this in the future. Thank you kindly for this consultation. Nurse Practitioner note has been reviewed, I agree with a documented findings and plan of care. Patient was seen and examined. Past Medical History Past Medical History: Atrial Fibrillation, Blood Disorder, Coronary Artery Disease (CAD), Chest Pain / Angina, Fibromyalgia, GERD/Reflux, GI Bleed, Hype rtension, Myocardial Infarction ([place]), Musculoskeletal Disorder, Osteoarthritis (OA), Thyroid Disorder Additional Past Medical History / Comment(s): Pacemaker [facility] in June 2016 for Syncopy/Tachybrady syndrome Paroxysmal AFib, has had RVR. RHEUMATIC FEVER; Heart Murmur. chronic back pain, dee shoulder pain. SEVERE OSTEOPROS,Vertigo,DJD. GI ulcers, esophagitis/esophageal stricture; partially blocked bile duct Last Myocardial Infarction Date:: 2002 History of Any Multi-Drug Resistant Organisms: None Reported Past Surgical History: Appendectomy, Cardiac Ablation, Cholecystectomy, Ear Surgery, Heart Catheterization, Hysterectomy, Orthopedic Surgery, Pacemaker, Tonsillectomy Additional Past Surgical History / Comment(s): ORIF LEFT LOWER ARM, HAS HARDWARE. Numerous DILATATION OF ESOPHAGUS-recently done in 06/2016 at [facility] pt stated bx were neg, colonoscopy. Pacemaker (ADAPTA) placed 07/07 at [facility]. Cardiac Cath in 2002. Bilateral stapedectomies. CARDIAC ABLATION 09/2016. Hiatal hernia repair Past Anesthesia/Blood Transfusion Reactions: Family History of Problems w/ Anesthesia, Motion Sickness, Postoperative Nausea & Vomiting (PONV) Additional Past Anesthesia/Blood Transfusion Reaction / Comment(s): no problems with prior blood transfusion. BROTHER HAS PONV. Type of Cardiac Device: Permanent Pacemaker Device Placement Date:: 06/2016 Past Psychological History: No Psychological Hx Reported Smoking Status: Never smoker Past Alcohol Use History: None Reported Past Drug Use History: None Reported - Past Family History Brother(s) Family Medical History: Cancer Additional Family Medical History / Comment(s): throat - currently in remission (05/10/19) Father Family Medical History: Pneumonia Additional Family Medical History / Comment(s): EMPHYSEMA Mother Family Medical History: COPD, Rheumatoid Arthritis (RA) Additional Family Medical History / Comment(s): EMPHYSEMA Medications and Allergies Home Medications Medication Instructions Recorded Confirmed Type SUMAtriptan succinate [Imitrex] 50 mg PO BID PRN 02/15/16 02/06/20 History Ergocalciferol (Vitamin D2) 50,000 unit PO FR 01/14/18 02/06/20 History [Vitamin D2] Dicyclomine [Bentyl] 10 mg PO TID 05/10/19 02/06/20 History Metoprolol Succinate (ER) [Toprol 50 mg PO DAILY 05/10/19 02/06/20 History XL] Allopurinol [Zyloprim] 100 mg PO DAILY 02/06/20 02/06/20 History Calcitriol [Rocaltrol] 0.25 mcg PO MOTH 02/06/20 02/06/20 History Denosumab [Prolia] 60 mg SQ Q180D 02/06/20 02/06/20 History Furosemide [Lasix] 40 mg PO DAILY 02/06/20 02/06/20 History Furosemide [Lasix] 80 mg PO DAILY@1800 02/06/20 02/06/20 History L.acidoph,Paracasei, B.lactis 1 cap PO DAILY 02/06/20 02/06/20 History [Probiotic] Levothyroxine Sodium [Synthroid] 88 mcg PO DAILY 02/06/20 02/06/20 History Pantoprazole Sodium [Protonix] 40 mg PO DAILY 02/06/20 02/06/20 History Potassium Chloride 40 meq PO DAILY #0 02/07/20 02/06/20 Rx Allergies Allergy/AdvReac Type Severity Reaction Status Date / Time adhesive Allergy RASH FROM Verified 02/06/20 23:14 EKG STICKERS celecoxib [From Celebrex] Allergy Rash/Hives Verified 02/06/20 23:14 sertraline HCl [From Zoloft] Allergy Rash/Hives Verified 02/06/20 23:14 sulfamethoxazole Allergy Anaphylaxis Verified 02/06/20 23:14 [From Bactrim] trimethoprim [From Bactrim] Allergy Anaphylaxis Verified 02/06/20 23:14 cholestyramine AdvReac DIZZY/CONFU Verified 02/06/20 23:14 SED Physical Exam Vitals: Vital Signs Temp Pulse Pulse Resp BP BP Pulse Ox 02/07/20 08:00 68 16 103/54 97 02/07/20 01:45 97.9 F 78 18 111/76 94 L 02/07/20 00:30 89 16 120/77 95 02/07/20 00:00 140 H 16 103/91 97 02/06/20 23:00 126 H 16 95 02/06/20 22:08 137 H 02/06/20 22:00 124 H 16 151/100 94 L 02/06/20 21:09 98.3 F 99 20 140/66 99 Intake and Output 02/06/20 02/07/20 02/07/20 22:59 06:59 14:59 Other: Weight 52.163 kg 57 kg Results 02/07/20 03:47 02/07/20 03:47 Cardiac Enzymes 02/06/20 02/06/20 02/07/20 Range/Units 21:33 21:33 00:15 AST 28 (14-36) U/L Troponin I <0.012 <0.012 (0.000-0.034) ng/mL 02/07/20 Range/Units 03:47 AST (14-36) U/L Troponin I <0.012 (0.000-0.034) ng/mL Coagulation 02/06/20 Range/Units 21:33 PT 9.8 (9.0-12.0) sec APTT 22.3 (22.0-30.0) sec CBC 02/06/20 02/07/20 Range/Units 21:33 03:47 WBC 7.6 7.6 (3.8-10.6) k/uL RBC 4.31 3.83 (3.80-5.40) m/uL Hgb 13.6 12.1 (11.4-16.0) gm/dL Hct 42.3 38.3 (34.0-46.0) % Plt Count 310 254 (150-450) k/uL Comprehensive Metabolic Panel 02/06/20 02/07/20 Range/Units 21:33 03:47 Sodium 139 139 (137-145) mmol/L Potassium 4.9 4.7 (3.5-5.1) mmol/L Chloride 108 H 112 H (98-107) mmol/L Carbon Dioxide 22 24 (22-30) mmol/L BUN 45 H 35 H (7-17) mg/dL Creatinine 1.03 0.87 (0.52-1.04) mg/dL Glucose 113 H 106 H (74-99) mg/dL Calcium 9.9 8.8 (8.4-10.2) mg/dL AST 28 (14-36) U/L ALT 19 (4-34) U/L Alkaline Phosphatase 65 (38-126) U/L Total Protein 7.3 (6.3-8.2) g/dL Albumin 4.1 (3.5-5.0) g/dL Current Medications Generic Name Dose Route Start Last Admin Trade Name Freq PRN Reason Stop Dose Admin Morphine Sulfate 4 mg 02/06/20 23:47 02/07/20 06:39 Morphine Sulfate 4 Mg/Ml Syringe IV 4 mg Q4HR PRN Administration Severe Pain Naloxone HCl 0.2 mg 02/06/20 23:47 Naloxone 0.4 Mg/Ml 1 Ml Vial IV Q2M PRN Opioid Reversal Intake and Output 02/06/20 02/07/20 02/07/20 22:59 06:59 14:59 Other: Weight 52.163 kg 57 kg 02/07/20 03:47 02/07/20 03:47
[2020-02-07] MEDS ORDERED: FUROSEMIDE 80 MG TAB PO SCH (18:00)
--- NOTE | 2020-02-07 23:03 | P.HPIM ---
History of Present Illness H&P Date: 02/07/20 Chief Complaint: Hypertension History of presenting complaint: This is a very pleasant 74-year-old patient of Dr. Wray. Chronic stable medical conditions include esophagitis, peptic ulcer disease, chronic essential hypertension, primary osteoarthritis of multiple joints bilateral, depression, hypothyroidism, esophageal dysmotility, anxiety not otherwise specified,, e sophageal constriction with repeated dilatation. Patient is followed at [facility] for the same. Patient does take potassium supplement. On Sunday she was told by her family doctor's office to increase the potassium 40 make use to twice a day. Repeat check was done on Sunday. Came back at 6.2. Told to come to the ER. Previous night patient started having palpitations. Found to be in A. fib flutter with a rapid ventilator 140s. She's had prior ablation. Has had intermittent episodes. She was put on IV Cardizem. Review of systems: GEN.: Tired EYES: None HEENT: None NECK: None RESPIRATORY: None CARDIOVASCULAR: None GASTROINTESTINAL: Heartburn better GENITOURINARY: None MUSCULOSKELETAL: Joint pains LYMPHATICS: None HEMATOLOGICAL: None PSYCHIATRY: Anxiety NEUROLOGICAL: None Past medical history to include: fibromyalgia, GERD, GI bleed, hypertension, osteoarthritis, hypothyroid, pacemaker for tachybradycardia syndrome, paroxysmal atrial flutter fibrillation, severe osteoporosis, esophageal stricture with dilatation, esophagitis Past surgical history to include: Appendectomy, cardiac ablation, ear surgery, pacemaker, or on her fourth left lower lobe, esophageal dilatation, pacemaker, cardiac ablation, Social history: Does not smoke or drink alcohol. Lives alone. Physical examination: VITAL SIGNS: 98.3, 124, 16, 1 5101 100, 94% room air GENERAL: BMI 23.7, sitting on bed, tired EYES: Pupils equal. Conjunctiva normal. HEENT: External appearance of nose and ears normal, oral cavity grossly normal. NECK: JVD not raised; masses not palpable. HEART: First and second heart sounds are normal; no edema. LUNGS: Respiratory rate normal; clear to auscultation. ABDOMEN: Soft, nontender, liver spleen not palpable, no masses palpable. PSYCH: [Alert and oriented x3; mood and affect slightly anxious MUSCULOSKELETAL: Evidence of OA especially in the hands and knees NEUROLOGICAL: Cranial nerves grossly intact; no facial asymmetry, power and sensation grossly intact. LYMPHATICS: No lymph nodes palpable in the axilla and neck INVESTIGATIONS, reviewed in the clinical context: White count 7.6 hemoglobin 13.6 platelets 310 potassium 4.9 creatinine 1.03 potassium 4. EKG tracing personally reviewed by me-atrial flutter with a rapid ventilator ra te of 140s Chest x-ray film personally reviewed by me-lung nunez clear, pacemaker Assessment: -Hyperkalemia from potassium supplement, now corrected with Lasix. POA -Paroxysmal atrial flutter with a prior history of ablation with rapid ventricular rate, POA -Chronic esophagitis -Essential hypertension -Primary osteoarthritis -Depression -Hypothyroidism -Esophageal dysmotility -Anxiety but otherwise specified -Chronic esophageal constriction with repeated dilatations -Pacemaker for tachybradycardia syndrome. Plan: Patient started IV Cardizem in the ER. Home medications resumed. Cardiology consulted. Patient doesn't want to take anticoagulation because of prior complications. Past Medical History Past Medical History: Atrial Fibrillation, Blood Disorder, Coronary Artery Disease (CAD), Chest Pain / Angina, Fibromyalgia, GERD/Reflux, GI Bleed, Hypertension, Myocardial Infarction ([place]), Musculoskeletal Disorder, Osteoarthritis (OA), Thyroid Disorder Additional Past Medical History / Comment(s): Pacemaker [facility] in June 2016 for Syncopy/Tachybrady syndrome Paroxysmal AFib, has had RVR. RHEUMATIC FEVER; Heart Murmur. chronic back pain, dee shoulder pain. SEVERE OSTEOPROS,Vertigo,DJD. GI ulcers, esophagitis/esophageal stricture; partially blocked bile duct Last Myocardial Infarction Date:: 2002 History of Any Multi-Drug Resistant Organisms: None Reported Past Surgical History: Appendectomy, Cardiac Ablation, Cholecystectomy, Ear Surgery, Heart Catheterization, Hysterectomy, Orthopedic Surgery, Pacemaker, Tonsillectomy Additional Past Surgical History / Comment(s): ORIF LEFT LOWER ARM, HAS HARDWARE. Numerous DILATATION OF ESOPHAGUS-recently done in 06/2016 at [facility] pt stated bx were neg, colonoscopy. Pacemaker (ADAPTA) placed 07/07 at [facility]. Cardiac Cath in 2002. Bilateral stapedectomies. CARDIAC ABLATION 09/2016. Hiatal hernia repair Past Anesthesia/Blood Transfusion Reactions: Family History of Problems w/ Anesthesia, Motion Sickness, Postoperative Nausea & Vomiting (PONV) Additional Past Anesthesia/Blood Transfusion Reaction / Comment(s): no problems with prior blood transfusion. BROTHER HAS PONV. Type of Cardiac Device: Permanent Pacemaker Device Placement Date:: 06/2016 Past Psychological History: No Psychological Hx Reported Smoking Status: Never smoker Past Alcohol Use History: None Reported Past Drug Use History: None Reported - Past Family History Brother(s) Family Medical History: Cancer Additional Family Medical History / Comment(s): throat - currently in remission (05/10/19) Father Family Medical History: Pneumonia Additional Family Medical History / Comment(s): EMPHYSEMA Mother Family Medical History: COPD, Rheumatoid Arthritis (RA) Additional Family Medical History / Comment(s): EMPHYSEMA Medications and Allergies Home Medications Medication Instructions Recorded Confirmed Type SUMAtriptan succinate [Imitrex] 50 mg PO BID PRN 02/15/16 02/06/20 History Ergocalciferol (Vitamin D2) 50,000 unit PO FR 01/14/18 02/06/20 History [Vitamin D2] Dicyclomine [Bentyl] 10 mg PO TID 05/10/19 02/06/20 History Metoprolol Succinate (ER) [Toprol 50 mg PO DAILY 05/10/19 02/06/20 History XL] Allopurinol [Zyloprim] 100 mg PO DAILY 02/06/20 02/06/20 History Calcitriol [Rocaltrol] 0.25 mcg PO MOTH 02/06/20 02/06/20 History Denosumab [Prolia] 60 mg SQ Q180D 02/06/20 02/06/20 History Furosemide [Lasix] 40 mg PO DAILY 02/06/20 02/06/20 History Furosemide [Lasix] 80 mg PO DAILY@1800 02/06/20 02/06/20 History L.acidoph,Paracasei, B.lactis 1 cap PO DAILY 02/06/20 02/06/20 History [Probiotic] Levothyroxine Sodium [Synthroid] 88 mcg PO DAILY 02/06/20 02/06/20 History Pantoprazole Sodium [Protonix] 40 mg PO DAILY 02/06/20 02/06/20 History Potassium Chloride 40 meq PO DAILY #0 02/07/20 02/06/20 Rx Allergies Allergy/AdvReac Type Severity Reaction Status Date / Time adhesive Allergy RASH FROM Verified 02/06/20 23:14 EKG STICKERS celecoxib [From Celebrex] Allergy Rash/Hives Verified 02/06/20 23:14 sertraline HCl [From Zoloft] Allergy Rash/Hives Verified 02/06/20 23:14 sulfamethoxazole Allergy Anaphylaxis Verified 02/06/20 23:14 [From Bactrim] trimethoprim [From Bactrim] Allergy Anaphylaxis Verified 02/06/20 23:14 cholestyramine AdvReac DIZZY/CONFU Verified 02/06/20 23:14 SED Physical Exam Vitals: Vital Signs Temp Pulse Pulse Resp BP BP Pulse Ox 02/07/20 08:00 68 16 103/54 97 02/07/20 01:45 97.9 F 78 18 111/76 94 L 02/07/20 00:30 89 16 120/77 95 02/07/20 00:00 140 H 16 103/91 97 02/06/20 23:00 126 H 16 95 02/06/20 22:08 137 H 02/06/20 22:00 124 H 16 151/100 94 L 02/06/20 21:09 98.3 F 99 20 140/66 99 Intake and Output 02/06/20 02/07/20 02/07/20 22:59 06:59 14:59 Other: Weight 52.163 kg 57 kg Results CBC & Chem 7: 02/07/20 03:47 02/07/20 03:47 Labs: Abnormal Lab Results - Last 24 Hours (Table) 02/06/20 02/06/20 02/07/20 Range/Units 21:33 21:33 03:47 MCV 100.2 H (80.0-100.0) fL RDW 15.8 H 15.7 H (11.5-15.5) % Chloride 108 H (98-107) mmol/L BUN 45 H (7-17) mg/dL Glucose 113 H (74-99) mg/dL 02/07/20 Range/Units 03:47 MCV (80.0-100.0) fL RDW (11.5-15.5) % Chloride 112 H (98-107) mmol/L BUN 35 H (7-17) mg/dL Glucose 106 H (74-99) mg/dL Thrombosis Risk Factor Assmnt - Choose All That Apply Each Factor Represents 1 point: Swollen legs (current) Each Risk Factor Represents 2 Points: Age 61-74 years Other congenital or acquired thrombophilia - If yes, enter type in comment: No Thrombosis Risk Factor Assessment Total Risk Factor Score: 3 Thrombosis Risk Factor Assessment Level: Moderate Risk
--- NOTE | 2020-02-07 23:06 | P.DS ---
Providers Date of admission: 02/06/20 23:47 Expected date of discharge: 02/07/20 Attending physician: Rich Wong Consults: 02/06/20 23:48 Consult Physician Urgent Consulting Provider: [facility] Consult Reason/Comments: afib with rvr Do you want consulting provider notified?: Yes Primary care physician: Elroy [facility] Course: Chief Complaint: Hypertension History of presenting complaint: This is a very pleasant 74-year-old patient of Dr. Wray. Chronic stable medical conditions include esophagitis, peptic ulcer disease, chronic essential hypertension, primary osteoarthritis of multiple joints bilateral, depression, hypothyroidism, esophageal dysmotility, anxiety not otherwise specified,, esophageal constriction with repeated dilatation. Patient is followed at [facility] for the same. Patient does take potassium supplement. On Sunday she was told by her family doctor's office to increase the potassium 40 make use to twice a day. Repeat check was done on Sunday. Came back at 6.2. Told to come to the ER. Previous night patient started having palpitations. Found to be in A. fib flutter with a rapid ventilator 140s. She's had prior ablation. Has had intermittent episodes. She was put on IV Cardizem. Went back into sinus rhythm. Potassium was corrected. Patient will discussed with the acquisition advisor about the watchman procedure and anticoagulation Consultation: Dr. Vergara from cardiology. Physical examination: VITAL SIGNS: 97.9, 68, 16, 103/54, 97% room air GENERAL: BMI 23.7, sitting on bed, tired EYES: Pupils equal. Conjunctiva normal. HEENT: External appearance of nose and ears normal, oral cavity grossly normal. NECK: JVD not raised; masses not palpable. HEART: First and second heart sounds are normal; no edema. LUNGS: Respiratory rate normal; clear to auscultation. ABDOMEN: Soft, nontender, liver spleen not palpable, no masses palpable. PSYCH: [Alert and oriented x3; mood and affect slightly anxious MUSCULOSKELETAL: Evidence of OA especially in the hands and knees INVESTIGATIONS, reviewed in the clinical context: White count 7.6 hemoglobin 13.6 platelets 310 potassium 4.9 creatinine 1.03 potassium 4. EKG tracing personally reviewed by me-atrial flutter with a rapid ventilator rate of 140s Chest x-ray film personally reviewed by me-lung nunez clear, pacemaker Troponin I 3 negative Assessment: -Hyperkalemia from potassium supplement, now corrected with Lasix. POA -Paroxysmal atrial flutter with a prior history of ablation with rapid ventricular rate, POA -Chronic esophagitis -Essential hypertension -Primary osteoarthritis -Depression -Hypothyroidism -Esophageal dysmotility -Anxiety but otherwise specified -Chronic esophageal constriction with repeated dilatations -Pacemaker for tachybradycardia syndrome. Disposition: Home Patient Condition at Discharge: Stable Plan - Discharge Summary Discharge Rx Participant: No New Discharge Prescriptions: Continue SUMAtriptan succinate [Imitrex] 50 mg PO BID PRN PRN Reason: Migraine Headache Ergocalciferol (Vitamin D2) [Vitamin D2] 50,000 unit PO FR Metoprolol Succinate (ER) [Toprol XL] 50 mg PO DAILY Dicyclomine [Bentyl] 10 mg PO TID Denosumab [Prolia] 60 mg SQ Q180D Pantoprazole Sodium [Protonix] 40 mg PO DAILY L.acidoph,Paracasei, B.lactis [Probiotic] 1 cap PO DAILY Calcitriol [Rocaltrol] 0.25 mcg PO MOTH Allopurinol [Zyloprim] 100 mg PO DAILY Furosemide [Lasix] 80 mg PO DAILY@1800 Levothyroxine Sodium [Synthroid] 88 mcg PO DAILY Furosemide [Lasix] 40 mg PO DAILY Changed Potassium Chloride 40 meq PO DAILY #0 Discharge Medication List SUMAtriptan succinate [Imitrex] 50 mg PO BID PRN 02/15/16 [History] Ergocalciferol (Vitamin D2) [Vitamin D2] 50,000 unit PO FR 01/14/18 [History] Dicyclomine [Bentyl] 10 mg PO TID 05/10/19 [History] Metoprolol Succinate (ER) [Toprol XL] 50 mg PO DAILY 05/10/19 [History] Allopurinol [Zyloprim] 100 mg PO DAILY 02/06/20 [History] Calcitriol [Rocaltrol] 0.25 mcg PO MOTH 02/06/20 [History] Denosumab [Prolia] 60 mg SQ Q180D 02/06/20 [History] Furosemide [Lasix] 40 mg PO DAILY 02/06/20 [History] Furosemide [Lasix] 80 mg PO DAILY@1800 02/06/20 [History] L.acidoph,Paracasei, B.lactis [Probiotic] 1 cap PO DAILY 02/06/20 [History] Levothyroxine Sodium [Synthroid] 88 mcg PO DAILY 02/06/20 [History] Pantoprazole Sodium [Protonix] 40 mg PO DAILY 02/06/20 [History] Potassium Chloride 40 meq PO DAILY #0 02/07/20 [Rx] Follow up Appointment(s)/Referral(s): Ellen Penn MD [STAFF PHYSICIAN] - 1 Week Elroy Wray DO [Primary Care Provider] - 1-2 days Patient Instructions/Handouts: A-fib (Atrial Fibrillation) (DC) Activity/Diet/Wound Care/Special Instructions: bmp - 3 day Discharge Disposition: HOME SELF-CARE
== END 2020-02-07 16:27 | disposition home or self-care (01) | DRG 641 ==
LOC: EC 21:06 → 3SCARD 23:47
PROVIDERS: ADMIT Hospitalist; ATTEND Hospitalist
DX: E87.5 Hyperkalemia (principal); I48.92 Unspecified atrial flutter; E03.9 Hypothyroidism, unspecified; F32.9 Major depressive disorder, single episode, unspecified; F41.9 Anxiety disorder, unspecified; I08.1 Rheumatic disorders of both mitral and tricuspid valves; I10 Essential (primary) hypertension; I25.10 Atherosclerotic heart disease of native coronary artery without angina pectoris; I25.2 Old myocardial infarction; I48.0 Paroxysmal atrial fibrillation; K22.4 Dyskinesia of esophagus; K22.2 Esophageal obstruction; Z87.11 Personal history of peptic ulcer disease; M15.9 Polyosteoarthritis, unspecified; M81.0 Age-related osteoporosis without current pathological fracture; K21.00 Gastro-esophageal reflux disease with esophagitis, without bleeding; M79.7 Fibromyalgia; Z79.890 Hormone replacement therapy; Z79.899 Other long term (current) drug therapy; Z82.5 Family history of asthma and other chronic lower respiratory diseases; Z90.710 Acquired absence of both cervix and uterus; Z80.8 Family history of malignant neoplasm of other organs or systems; Z83.6 Family history of other diseases of the respiratory system; Z95.0 Presence of cardiac pacemaker; Z90.49 Acquired absence of other specified parts of digestive tract; Z90.89 Acquired absence of other organs
CPT/HCPCS: 36415; 71046; 80048; 80053; 81003; 82040; 82306; 82728; 83540; 83550; 83735; 83880; 83970; 84100; 84484; 84550; 85025; 85379; 85610; 85730; 93005; 96361; 96365; 96366; 96375; 99285

== ENCOUNTER → 2020-02-06 | Outpatient (CLI) | payer MEDICARE, OTHER ==
[2020-02-06 12:54] LABS: Basophils # (A) 0.1 k/uL (0-0.2); Basophils % (A) 1 %; Eosinophils # (A) 0.6 k/uL (0-0.7); Eosinophils % (A) 9 %; HGB 14.4 gm/dL (11.4-16.0); Lymphocytes # (A) 1.2 k/uL (1.0-4.8); Lymphocytes % (A) 19 %; MCH 31.6 pg (25.0-35.0); MCHC 31.9 g/dL (31.0-37.0); MCV 99.1 fL (80.0-100.0); Macrocytosis Slight; Mean Platelet Volume 7.4; Monocytes # (A) 0.3 k/uL (0-1.0); Monocytes % (A) 6 %; Neutrophils # (A) 3.9 k/uL (1.3-7.7); Neutrophils % (A) 63 %; Platelet Count 289 k/uL (150-450); RBC 4.54 m/uL (3.80-5.40); RDW 15.3 % (11.5-15.5); WBC 6.2 k/uL (3.8-10.6)
[2020-02-06 14:35] LABS: Appearance,Urine Clear (Clear); Bilirubin,Urine Negative (Negative); Blood,Urine Negative (Negative); Color,Urine Light Yellow; Glucose,Urine (UA) Negative (Negative); Ketones,Urine Negative (Negative); Leukocyte Esterase,Urine Negative (Negative); Nitrite,Urine Negative (Negative); Protein,Urine Negative (Negative); Specific Gravity,Urine 1.015 (1.001-1.035); Urobilinogen,Urine <2.0 mg/dL (<2.0)
[2020-02-06 20:33] LABS: % Iron Saturation 18.95 (12.00-45.00); African American GFR (CKD) 65.2 (60.0-200.0); Albumin 4.4 g/dL (3.80-4.90); Anion Gap 11.6 mmol/L (4.00-12.00); Calcium 9.8 mg/dL (8.7-10.3); Carbon Dioxide 21.4 mmol/L (21.6-31.8); Magnesium 2.2 mg/dL (1.5-2.4); Non-African American GFR(CKD) 56.2 (60.0-200.0); Phosphorus 4.5 mg/dL (2.4-5.1); Uric Acid 5.4 mg/dL (2.9-7.7)
[2020-02-06 20:41] LABS: Ferritin 16.5 ng/mL (10.0-291.0)
== END | disposition home or self-care (01) ==
LOC: LABWHC1 11:56
PROVIDERS: ATTEND Nurse Practitioner Family
DX: N25.81 Secondary hyperparathyroidism of renal origin (principal); M10.9 Gout, unspecified; N39.0 Urinary tract infection, site not specified; E55.9 Vitamin D deficiency, unspecified; N17.9 Acute kidney failure, unspecified; D64.9 Anemia, unspecified
CPT/HCPCS: 36415; 80048; 81003; 82040; 82306; 82728; 83540; 83550; 83735; 83970; 84100; 84550; 85025

== ENCOUNTER → 2020-02-20 | Outpatient (CLI) | payer MEDICARE, OTHER ==
[2020-02-20 19:54] LABS: African American GFR (CKD) 58.1 (60.0-200.0); BUN/Creat Ratio 27.27 Ratio (12.00-20.00); Calcium 9.8 mg/dL (8.7-10.3); Magnesium 2.1 mg/dL (1.5-2.4); Non-African American GFR(CKD) 50.1 (60.0-200.0); Potassium 3.8 mmol/L (3.5-5.5)
== END | disposition home or self-care (01) ==
LOC: LABWHC1 13:02
PROVIDERS: ATTEND Internal Medicine Interventional Cardiology
DX: I48.0 Paroxysmal atrial fibrillation (principal); N18.31 Chronic kidney disease, stage 3a
CPT/HCPCS: 36415; 80048; 83735

== ENCOUNTER → 2020-05-04 | Outpatient (CLI) | payer MEDICARE, OTHER ==
[2020-05-04 23:40] LABS: African American GFR (CKD) 58.1 (60.0-200.0); Albumin 4.3 g/dL (3.80-4.90); Albumin/Globulin Ratio 1.79 (1.60-3.17); Anion Gap 12.4 mmol/L (4.00-12.00); BUN/Creat Ratio 64.55 Ratio (12.00-20.00); Calcium 10.2 mg/dL (8.7-10.3); Carbon Dioxide 27.6 mmol/L (21.6-31.8); Globulin 2.4 g/dL (1.6-3.3); Magnesium 1.8 mg/dL (1.5-2.4); Non-African American GFR(CKD) 50.1 (60.0-200.0); Potassium 3.5 mmol/L (3.5-5.5); Total Bilirubin 0.1 mg/dL (0.2-1.2); Total Protein 6.7 g/dL (6.2-8.2)
== END | disposition home or self-care (01) ==
LOC: LABWHC1 10:36
PROVIDERS: ATTEND Internal Medicine Interventional Cardiology
DX: I10 Essential (primary) hypertension (principal); I48.0 Paroxysmal atrial fibrillation
CPT/HCPCS: 36415; 80053; 83735

== ENCOUNTER → 2020-05-13 | Outpatient (CLI) | payer MEDICARE, OTHER ==
[2020-05-13 14:13] LABS: HGB 13.9 gm/dL (11.4-16.0); MCH 30.1 pg (25.0-35.0); MCHC 31.6 g/dL (31.0-37.0); MCV 95.1 fL (80.0-100.0); Mean Platelet Volume 7.7; Platelet Count 392 k/uL (150-450); RBC 4.62 m/uL (3.80-5.40); RDW 13.3 % (11.5-15.5); WBC 8.2 k/uL (3.8-10.6)
[2020-05-13 20:29] LABS: African American GFR (CKD) 58.1 (60.0-200.0); Albumin 4.7 g/dL (3.80-4.90); Albumin/Globulin Ratio 1.81 (1.60-3.17); BUN/Creat Ratio 48.18 Ratio (12.00-20.00); Calcium 10.5 mg/dL (8.7-10.3); Chol/HDL Ratio 2.37; Globulin 2.6 g/dL (1.6-3.3); LDL Cholesterol,Calculated 101.6 mg/dL (0.0-131.0); Magnesium 2.1 mg/dL (1.5-2.4); Non-African American GFR(CKD) 50.1 (60.0-200.0); Potassium 3.5 mmol/L (3.5-5.5); Total Bilirubin 0.3 mg/dL (0.2-1.2); Total Protein 7.3 g/dL (6.2-8.2); Uric Acid 7.5 mg/dL (2.9-7.7); VLDL Calculation 24.4 mg/dL (5.00-40.00)
== END | disposition home or self-care (01) ==
LOC: LABWHC1 12:12
PROVIDERS: ATTEND Internal Medicine Nephrology
DX: E03.9 Hypothyroidism, unspecified (principal); E55.9 Vitamin D deficiency, unspecified; I12.9 Hypertensive chronic kidney disease with stage 1 through stage 4 chronic kidney disease, or unspecified chronic kidney disease; I25.10 Atherosclerotic heart disease of native coronary artery without angina pectoris; N18.31 Chronic kidney disease, stage 3a
CPT/HCPCS: 36415; 80053; 80061; 82306; 83735; 84439; 84443; 84550; 85027

== ENCOUNTER → 2020-06-09 | Outpatient (CLI) | payer MEDICARE, OTHER ==
[2020-06-09 21:09] LABS: African American GFR (CKD) 39.9 (60.0-200.0); Albumin/Globulin Ratio 1.72 (1.60-3.17); Anion Gap 11.9 mmol/L (4.00-12.00); BUN/Creat Ratio 41.33 Ratio (12.00-20.00); Calcium 9.6 mg/dL (8.7-10.3); Carbon Dioxide 30.1 mmol/L (21.6-31.8); Globulin 2.9 g/dL (1.6-3.3); Non-African American GFR(CKD) 34.4 (60.0-200.0); Potassium 3.7 mmol/L (3.5-5.5); Total Bilirubin 0.2 mg/dL (0.3-1.2); Total Protein 7.9 g/dL (6.2-8.2)
== END | disposition home or self-care (01) ==
LOC: LABWHC1 12:26
PROVIDERS: ATTEND Internal Medicine Endocrinology, Diabetes & Metabolism
DX: M81.8 Other osteoporosis without current pathological fracture (principal); E21.3 Hyperparathyroidism, unspecified
CPT/HCPCS: 36415; 80053; 82306; 83970; 84443

== ENCOUNTER → 2020-08-04 | Outpatient (CLI) | payer MEDICARE, OTHER | END | disposition home or self-care (01) | LOC: LABWHC1 13:00 | PROVIDERS: ATTEND Internal Medicine Endocrinology, Diabetes & Metabolism | DX: E03.8 Other specified hypothyroidism (principal) | CPT/HCPCS: 36415; 84439; 84443 ==

== ENCOUNTER → 2020-08-11 | Outpatient (CLI) | payer MEDICARE, OTHER ==
[2020-08-11 11:51] LABS: Appearance,Urine Clear (Clear); Bilirubin,Urine Negative (Negative); Blood,Urine Negative (Negative); Color,Urine Light Yellow; Glucose,Urine (UA) Negative (Negative); Ketones,Urine Negative (Negative); Leukocyte Esterase,Urine Negative (Negative); Nitrite,Urine Negative (Negative); PH, Urine 5.5 (5.0-8.0); Protein,Urine Negative (Negative); Specific Gravity,Urine 1.015 (1.001-1.035); Urobilinogen,Urine <2.0 mg/dL (<2.0)
[2020-08-11 12:33] LABS: Creatinine,Urine Random 46.4 mg/dL; Protein/Creatinine Ratio,Urine 0.237
[2020-08-11 18:54] LABS: Basophils # (A) 0.07 X 10*3/uL (0.00-0.10); Basophils % (A) 1.3 %; Eosinophils # (A) 0.25 X 10*3/uL (0.04-0.35); Eosinophils % (A) 4.5 %; HCT 40.7 % (37.2-46.3); HGB 12.7 g/dL (12.0-15.0); Lymphocytes % (A) 32.4 %; MCH 29.5 pg (27.0-32.0); MCHC 31.2 g/dL (32.0-37.0); MCV 94.7 fL (80.0-97.0); Mean Platelet Volume 11.1 fL (9.5-12.2); Monocytes # (A) 0.66 X 10*3/uL (0.20-1.00); Monocytes % (A) 11.9 %; Neutrophils # (A) 2.76 X 10*3/uL (1.80-7.70); Neutrophils % (A) 49.7 %; Platelet Count 417 X 10*3/uL (140-440); RDW 14.3 % (11.5-14.5); WBC 5.55 X 10*3/uL (4.50-10.00)
[2020-08-12 05:33] LABS: % Iron Saturation 14.61 (12.00-45.00); Albumin 4.3 g/dL (3.80-4.90); Anion Gap 17.3 mmol/L (4.00-12.00); Calcium 9.3 mg/dL (8.7-10.3); Carbon Dioxide 23.7 mmol/L (21.6-31.8); Magnesium 2.1 mg/dL (1.5-2.4); Non-African American GFR(CKD) 63.9 (60.0-200.0); Phosphorus 3.5 mg/dL (2.4-5.1); Potassium 3.6 mmol/L (3.5-5.5); Uric Acid 7.1 mg/dL (2.9-7.7)
== END | disposition home or self-care (01) ==
LOC: LABWHC1 10:14
PROVIDERS: ATTEND Internal Medicine Nephrology
DX: N39.0 Urinary tract infection, site not specified (principal); N18.31 Chronic kidney disease, stage 3a; N25.81 Secondary hyperparathyroidism of renal origin; E55.9 Vitamin D deficiency, unspecified; D64.9 Anemia, unspecified; E21.3 Hyperparathyroidism, unspecified; M10.9 Gout, unspecified; R80.9 Proteinuria, unspecified
CPT/HCPCS: 36415; 80048; 81003; 82040; 82306; 82570; 82728; 83540; 83550; 83735; 83970; 84100; 84156; 84550; 85025

== ENCOUNTER 2020-10-06 11:24 | Day surgery (SDC) | payer MEDICARE, OTHER ==
[2020-10-05 10:58] VITALS: BMI 22.6
[~2020-10-06 11:24] MED LIST changes: -LIDOCAINE 1% 20 ML VIAL (10MG/ML) FOR IV START INTRADERMA PRN
[2020-10-06 12:05] VITALS: TEMP 98.5
[2020-10-06] MEDS ORDERED: LIDOCAINE 1% (10MG/ML) FOR IV START INTRADERMA ONE (12:10)
[2020-10-06] MEDS ORDERED: ONDANSETRON 4 MG/2 ML VIAL ONE (12:18)
[2020-10-06] MEDS ORDERED: DEXAMETHASONE SOD PHOSPHATE 4 MG/ML 1 ML VIAL IV ONE (12:22)
[2020-10-06] MEDS ORDERED: SCOPOLAMINE 1.5MG/72HR PATCH TRANSDERM ONE (12:22)
[2020-10-06] MEDS ORDERED: ESMOLOL 100 MG/10 ML VIAL ONE (12:25)
[2020-10-06] MEDS ORDERED: PROPOFOL 10 MG/ML 20 ML VIAL IV ONE (12:25)
[2020-10-06] MEDS ORDERED: LIDOCAINE 1% INJ 10MG/ML (20 ML MDV) ONE (12:25)
--- NOTE | 2020-10-06 12:51 | P.PCN ---
Date of Procedure: 10/06/20 Procedure(s) Performed: BRIEF HISTORY: Patient is a 74-year-old, pleasant, at female scheduled for an upper endoscopy as a part of evaluation of progressive dysphagia to solids for the last 2 months duration. She has history of GERD and prior esophageal esophageal stricture for which she underwent EGD with dilation in March 2020.. PROCEDURE PERFORMED: Esophagogastroduodenoscopy dilation. PREOPERATIVE DIAGNOSIS: Progressive dysphagia to solids of 2 months duration. IV sedation per anesthesia. PROCEDURE: After informed consent was obtained, the patient was brought into the endoscopy unit. IV sedation was administered by Anesthesia under continuous monitoring. Initially the Olympus GIF-140 video endoscope was inserted into the mouth. Esophagus intubated without any difficulty. It was gradually advanced into the stomach and duodenum and carefully examined. The bulb of the duodenum appeared normal. The scope could not be advanced beyond the duodenal sweep because of a duodenal stricture. The scope at this time was withdrawn to the stomach, adequately insufflated with air, and upon careful examination, mucosa of the antrum, body and mild diffuse gastritis. The, cardia and the fundus appeared normal. The scope was then withdrawn into the esophagus. Small hiatal hernia noted. The GE junction was located at 39 cm from the incisors. They revealed erosions in the distal esophagus consistent with LA grade B reflux esophagitis There was a distal esophagus stricture dentified and this time I proceeded with balloon dilation using 12 and 13.5 mm TTS balloon in a sequential fashion for 60 seconds. The rest of the esophagus appeared normal. The patient tolerated the procedure well. IMPRESSION: 1. Distal esophageal stricture status post balloon dilation using 12-13.5 mm TTS balloon as described above. 2. Small hiatal hernia and LA grade B reflux esophagitis . 3. Duodenal stricture involving the duodenal sweep and the scope could not be advanced RECOMMENDATIONS: The findings of this examination were discussed with the patient as well as her family. She'll remain on a clear liquid diet today. She'll continue with Protonix 40 mg twice daily and follow antireflux measures. She'll be seen in office in 3-4 weeks..
[2020-10-06 13:11] VITALS: BP 127/84; PULSE 85; RESP 16
== END 2020-10-06 13:36 | disposition home or self-care (01) ==
LOC: ORWHC2ENDO 11:24
PROVIDERS: ATTEND Internal Medicine Gastroenterology
DX: K22.2 Esophageal obstruction (principal); K31.5 Obstruction of duodenum; K44.9 Diaphragmatic hernia without obstruction or gangrene; K21.00 Gastro-esophageal reflux disease with esophagitis, without bleeding; I25.10 Atherosclerotic heart disease of native coronary artery without angina pectoris; I10 Essential (primary) hypertension; I49.5 Sick sinus syndrome; E78.5 Hyperlipidemia, unspecified; I48.91 Unspecified atrial fibrillation; Z95.0 Presence of cardiac pacemaker; I25.2 Old myocardial infarction; E07.9 Disorder of thyroid, unspecified; M19.90 Unspecified osteoarthritis, unspecified site; M10.9 Gout, unspecified; K21.9 Gastro-esophageal reflux disease without esophagitis; F41.9 Anxiety disorder, unspecified; F32.9 Major depressive disorder, single episode, unspecified; G43.909 Migraine, unspecified, not intractable, without status migrainosus; Z86.19 Personal history of other infectious and parasitic diseases; Z79.01 Long term (current) use of anticoagulants; Z79.899 Other long term (current) drug therapy; Z88.2 Allergy status to sulfonamides; Z88.8 Allergy status to other drugs, medicaments and biological substances; Z91.09 Other allergy status, other than to drugs and biological substances
CPT/HCPCS: 43249; J1100; J2405; J2001; J2704; C1726

== ENCOUNTER → 2020-11-29 | Outpatient (CLI) | payer MEDICARE, OTHER ==
[2020-11-29 19:13] LABS: African American GFR (CKD) 57.7 (60.0-200.0); Albumin 4.3 g/dL (3.80-4.90); Albumin/Globulin Ratio 1.59 (1.60-3.17); Anion Gap 11.4 mmol/L (4.00-12.00); BUN/Creat Ratio 32.73 Ratio (12.00-20.00); Calcium 9.4 mg/dL (8.7-10.3); Carbon Dioxide 30.6 mmol/L (21.6-31.8); Globulin 2.7 g/dL (1.6-3.3); Non-African American GFR(CKD) 49.8 (60.0-200.0); Potassium 3.1 mmol/L (3.5-5.5); Total Bilirubin 0.2 mg/dL (0.2-1.2)
[2020-11-29 19:49] LABS: HCT 30.2 % (37.2-46.3); HGB 8.8 g/dL (12.0-15.0); MCHC 29.1 g/dL (32.0-37.0); MCV 85.8 fL (80.0-97.0); Mean Platelet Volume 10.1 fL (9.5-12.2); Platelet Count 576 X 10*3/uL (140-440); RBC 3.52 X 10*6/uL (4.10-5.20); RDW 18.1 % (11.5-14.5); WBC 6.45 X 10*3/uL (4.50-10.00)
== END | disposition home or self-care (01) ==
LOC: LABWHC1 11:15
PROVIDERS: ATTEND Nurse Practitioner Adult Health
DX: I48.11 Longstanding persistent atrial fibrillation (principal); D64.9 Anemia, unspecified
CPT/HCPCS: 36415; 80053; 85027

== ENCOUNTER → 2020-12-09 | Outpatient (CLI) | payer MEDICARE, OTHER ==
[2020-12-09 19:01] LABS: Basophils # (A) 0.09 X 10*3/uL (0.00-0.10); Basophils % (A) 1.4 %; Eosinophils # (A) 0.24 X 10*3/uL (0.04-0.35); Eosinophils % (A) 3.7 %; HGB 9.4 g/dL (12.0-15.0); Lymphocytes # (A) 2.16 X 10*3/uL (0.90-5.00); Lymphocytes % (A) 33.1 %; MCH 24.2 pg (27.0-32.0); MCHC 29.4 g/dL (32.0-37.0); MCV 82.5 fL (80.0-97.0); Mean Platelet Volume 10.3 fL (9.5-12.2); Monocytes # (A) 0.67 X 10*3/uL (0.20-1.00); Monocytes % (A) 10.3 %; Neutrophils # (A) 3.34 X 10*3/uL (1.80-7.70); Platelet Count 652 X 10*3/uL (140-440); RBC 3.88 X 10*6/uL (4.10-5.20); RDW 18.2 % (11.5-14.5); WBC 6.53 X 10*3/uL (4.50-10.00)
[2020-12-09 22:23] LABS: African American GFR (CKD) 57.7 (60.0-200.0); Anion Gap 13.2 mmol/L (4.00-12.00); BUN/Creat Ratio 47.27 Ratio (12.00-20.00); Calcium 9.6 mg/dL (8.7-10.3); Carbon Dioxide 23.8 mmol/L (21.6-31.8); Magnesium 1.9 mg/dL (1.5-2.4); Non-African American GFR(CKD) 49.8 (60.0-200.0)
== END | disposition home or self-care (01) ==
LOC: LABWHC1 14:02
PROVIDERS: ATTEND Nurse Practitioner Adult Health
DX: D64.9 Anemia, unspecified (principal); E87.6 Hypokalemia; N18.9 Chronic kidney disease, unspecified
CPT/HCPCS: 36415; 80048; 83735; 85025

== ENCOUNTER → 2020-12-13 | Outpatient (CLI) | payer MEDICARE, OTHER | END | disposition home or self-care (01) | LOC: LABWHC1 13:51 | PROVIDERS: ATTEND Family Medicine | DX: D64.9 Anemia, unspecified (principal); E87.6 Hypokalemia | CPT/HCPCS: 36415; 82272 ==

== ENCOUNTER → 2020-12-16 | Outpatient (CLI) | payer MEDICARE, OTHER ==
[2020-12-16 19:12] LABS: HCT 30.6 % (37.2-46.3); HGB 8.8 g/dL (12.0-15.0); MCH 23.5 pg (27.0-32.0); MCHC 28.8 g/dL (32.0-37.0); MCV 81.6 fL (80.0-97.0); Mean Platelet Volume 10.4 fL (9.5-12.2); Platelet Count 527 X 10*3/uL (140-440); RBC 3.75 X 10*6/uL (4.10-5.20); WBC 6.55 X 10*3/uL (4.50-10.00)
== END | disposition home or self-care (01) ==
LOC: LABWHC1 14:13
PROVIDERS: ATTEND Family Medicine
DX: D64.9 Anemia, unspecified (principal)
CPT/HCPCS: 36415; 85027

== ENCOUNTER → 2020-12-30 | Outpatient (CLI) | payer MEDICARE, OTHER ==
[2020-12-30 21:49] LABS: HCT 32.6 % (37.2-46.3); HGB 9.5 g/dL (12.0-15.0); MCH 22.5 pg (27.0-32.0); MCHC 29.1 g/dL (32.0-37.0); MCV 77.1 fL (80.0-97.0); Mean Platelet Volume 10.7 fL (9.5-12.2); Platelet Count 465 X 10*3/uL (140-440); RBC 4.23 X 10*6/uL (4.10-5.20); RDW 18.2 % (11.5-14.5); WBC 7.77 X 10*3/uL (4.50-10.00)
== END | disposition home or self-care (01) ==
LOC: LABWHC1 15:06
PROVIDERS: ATTEND Family Medicine
DX: I10 Essential (primary) hypertension (principal)
CPT/HCPCS: 36415; 85027

== ENCOUNTER → 2021-02-03 | Outpatient (CLI) | payer MEDICARE, OTHER ==
[2021-02-03 23:54] LABS: HCT 32.7 % (37.2-46.3); HGB 9.4 g/dL (12.0-15.0); MCH 20.9 pg (27.0-32.0); MCHC 28.7 g/dL (32.0-37.0); MCV 72.7 fL (80.0-97.0); Mean Platelet Volume 10.6 fL (9.5-12.2); Platelet Count 554 X 10*3/uL (140-440); RDW 18.5 % (11.5-14.5); WBC 6.44 X 10*3/uL (4.50-10.00)
[2021-02-04 05:15] LABS: African American GFR (CKD) 64.7 (60.0-200.0); Anion Gap 16.1 mmol/L (4.00-12.00); BUN/Creat Ratio 53.1 Ratio (12.00-20.00); Blood Urea Nitrogen 53.1 mg/dL (9.0-27.0); Calcium 9.5 mg/dL (8.7-10.3); Carbon Dioxide 22.9 mmol/L (21.6-31.8); Non-African American GFR(CKD) 55.8 (60.0-200.0); Potassium 3.4 mmol/L (3.5-5.5)
== END | disposition home or self-care (01) ==
LOC: LABWHC1 15:38
PROVIDERS: ATTEND Nurse Practitioner Adult Health
DX: I12.9 Hypertensive chronic kidney disease with stage 1 through stage 4 chronic kidney disease, or unspecified chronic kidney disease (principal); N18.9 Chronic kidney disease, unspecified
CPT/HCPCS: 36415; 80048; 85027

== ENCOUNTER → 2021-03-28 | Outpatient (CLI) | payer MEDICARE, OTHER ==
[2021-03-28 18:42] LABS: HCT 30.9 % (37.2-46.3); HGB 8.9 g/dL (12.0-15.0); MCH 20.9 pg (27.0-32.0); MCHC 28.8 g/dL (32.0-37.0); MCV 72.5 fL (80.0-97.0); Mean Platelet Volume 10.5 fL (9.5-12.2); Platelet Count 443 X 10*3/uL (140-440); RBC 4.26 X 10*6/uL (4.10-5.20); RDW 20.2 % (11.5-14.5); WBC 7.98 X 10*3/uL (4.50-10.00)
[2021-03-28 21:34] LABS: ALT 27 U/L (8-44); AST 34 U/L (13-35); African American GFR (CKD) 57.7 (60.0-200.0); Albumin 4.2 g/dL (3.8-4.9); Albumin/Globulin Ratio 1.45 (1.60-3.17); Alkaline Phosphatase 177 U/L (41-126); BUN/Creat Ratio 32.09 Ratio (12.00-20.00); Blood Urea Nitrogen 35.3 mg/dL (9.0-27.0); Carbon Dioxide 22.7 mmol/L (20.0-27.5); Chloride 98 mmol/L (96-109); Globulin 2.9 g/dL (1.6-3.3); Glucose 113 mg/dL (70-110); Non-African American GFR(CKD) 49.8 (60.0-200.0); Potassium 5.1 mmol/L (3.5-5.5); Sodium 134 mmol/L (135-145); Total Bilirubin <0.20 mg/dL (0.30-1.20); Total Protein 7.1 g/dL (6.2-8.2)
== END | disposition home or self-care (01) ==
LOC: LABWHC1 11:21
PROVIDERS: ATTEND Nurse Practitioner Adult Health
DX: E03.9 Hypothyroidism, unspecified (principal); I48.11 Longstanding persistent atrial fibrillation; N18.9 Chronic kidney disease, unspecified; R06.02 Shortness of breath
CPT/HCPCS: 36415; 80053; 83880; 84439; 84443; 85027

== ENCOUNTER 2021-04-13 09:20 | Day surgery (SDC) | payer MEDICARE, OTHER ==
[2021-04-12 09:26] VITALS: BMI 19.6
[2021-04-13 10:07] VITALS: TEMP 97.9
[2021-04-13] MEDS ORDERED: ONDANSETRON 4 MG/2 ML VIAL ONE (10:11)
[2021-04-13] MEDS ORDERED: MIDAZOLAM 2 MG/2 ML VIAL IVP ONE (10:22)
[2021-04-13] MEDS ORDERED: LIDOCAINE 1% INJ 10MG/ML (20 ML MDV) ONE (10:35)
[2021-04-13] MEDS ORDERED: PROPOFOL 10 MG/ML 20 ML VIAL IV ONE (10:35)
--- NOTE | 2021-04-13 10:52 | P.PCN ---
Date of Procedure: 04/13/21 Procedure(s) Performed: BRIEF HISTORY: Patient is a 75-year-old, pleasant, white female scheduled for an upper endoscopy as a part of evaluation of progressive dysphagia to solids for the last 6 months duration. She had multiple upper endoscopies in the past was diagnosed with esophageal stricture requiring dilations. The last one was performed in March 2020.. PROCEDURE PERFORMED: Esophagogastroduodenoscopy with dilation. PREOPERATIVE DIAGNOSIS: Progressive dysphagia to solids. IV sedation per anesthesia. PROCEDURE: After informed consent was obtained, the patient was brought into the endoscopy unit. IV sedation was administered by Anesthesia under continuous monitoring. Initially the Olympus GIF-140 video endoscope was inserted into the mouth. Esophagus intubated without any difficulty. It was gradually advanced into the distal esophagus. There was some food material that was impacted in the distal esophagus with was gently pushed into the stomach. There was a distal esophageal stricture identified did not impede the passage of scope. The scope was advanced into the stomach and duodenum and carefully examined. The bulb and the second part of the duodenum appeared normal. The scope at this time was withdrawn to the stomach, adequately insufflated with air, and upon careful examination, mucosa of the antrum, body, had mild diffuse gastritis. The cardia and the fundus appeared normal. The scope was then withdrawn into the esophagus. Mall hiatal hernia noted. The GE junction was located at 37 cm from the incisors. There was a distal esophageal stricture identified and this time dilated using 10-12 mm TTS balloon in a sequential fashion for 90 seconds. The rest of the esophagus appeared normal. There were no erosions or ulcerations seen and the patient tolerated the procedure well. IMPRESSION: 1. Distal esophageal stricture status post balloon dilation using 10-12 mm TTS balloon as described above. 2. Small hiatal hernia.. RECOMMENDATIONS: The findings of this examination were discussed with the patient as well as a family. She was advised to continue with soft diet. She will be seen in the office in 3 months..
[2021-04-13 11:15] VITALS: RESP 18
[2021-04-13] MEDS ORDERED: IBUPROFEN 200 MG TAB PO ONE (11:40)
[2021-04-13 11:45] VITALS: BP 125/77; PULSE 103
== END 2021-04-13 12:08 | disposition home or self-care (01) ==
LOC: ORWHC2ENDO 09:20
PROVIDERS: ATTEND Internal Medicine Gastroenterology
DX: K22.2 Esophageal obstruction (principal); K44.9 Diaphragmatic hernia without obstruction or gangrene
CPT/HCPCS: 43249; J2250; J2405; J2001; J2704; C1726

== ENCOUNTER → 2021-04-19 | Outpatient (CLI) | payer MEDICARE, OTHER ==
--- NOTE | 2021-04-19 11:48 | US ---
EXAMINATION TYPE: US venous doppler duplex LE LT DATE OF EXAM: 04/19/2021 11:27 AM COMPARISON: US CLINICAL HISTORY: I80.9 Phlebitis and thrombophlebitis of unspecified site. Atrial Fibrillation and h eart failure per patient; Swelling left lower leg post fracture left lateral malleolus of left fibula , sprain left ankle ligament. SIDE PERFORMED: Left TECHNIQUE: The lower extremity deep venous system is examined utilizing real time linear array sonog guillermina with graded compression, doppler sonography and color-flow sonography. VESSELS IMAGED: Common Femoral Vein Deep Femoral Vein Greater Saphenous Vein * Femoral Vein Popliteal Vein Small Saphenous Vein * Proximal Calf Veins (* superficial vessels) Left Leg: Negative for DVT. Negative for Superficial Vein Thrombosis; edema channels are imaged left ankle and at posterior ankle at area of concern. Couple of left groin lymph nodes are seen with larg er lymph node = 2.0 x 0.8 x 0.6cm. IMPRESSION: No evidence of DVT. See above.
== END | disposition home or self-care (01) ==
LOC: RADUSWWP 10:57
PROVIDERS: ATTEND Orthopaedic Surgery
DX: M25.572 Pain in left ankle and joints of left foot (principal); I80.9 Phlebitis and thrombophlebitis of unspecified site

== ENCOUNTER → 2021-07-15 | Outpatient (CLI) | payer MEDICARE, OTHER ==
[2021-07-15 12:59] LABS: Creatinine,Urine Random 86.8 mg/dL; Protein/Creatinine Ratio,Urine 0.138
[2021-07-15 17:55] LABS: Basophils # (A) 0.06 X 10*3/uL (0.00-0.10); Basophils % (A) 0.8 %; Eosinophils # (A) 0.12 X 10*3/uL (0.04-0.35); Eosinophils % (A) 1.7 %; HCT 32.1 % (37.2-46.3); HGB 8.9 g/dL (12.0-15.0); Immature Grans, Automated 0.4 %; Lymphocytes # (A) 1.83 X 10*3/uL (0.90-5.00); Lymphocytes % (A) 25.3 %; MCH 21.8 pg (27.0-32.0); MCHC 27.7 g/dL (32.0-37.0); MCV 78.5 fL (80.0-97.0); Monocytes # (A) 0.78 X 10*3/uL (0.20-1.00); Monocytes % (A) 10.8 %; NRBC Per 100 WBC 0 /100 WBCS (0.0-0.0); Neutrophils # (A) 4.41 X 10*3/uL (1.80-7.70); Platelet Count 426 X 10*3/uL (140-440); RBC 4.09 X 10*6/uL (4.10-5.20); WBC 7.23 X 10*3/uL (4.50-10.00)
[2021-07-15 18:30] LABS: Albumin 4.2 g/dL (3.8-4.9); Ferritin 16.8 ng/mL (10.0-291.0)
[2021-07-15 19:12] LABS: % Iron Saturation 2.08 (12.00-45.00); African American GFR (CKD) 49.4 (60.0-200.0); Anion Gap 16.7 mmol/L (10.00-18.00); BUN/Creat Ratio 25.28 Ratio (12.00-20.00); Blood Urea Nitrogen 31.6 mg/dL (9.0-27.0); Calcium 9.6 mg/dL (8.7-10.3); Carbon Dioxide 26.3 mmol/L (20.0-27.5); Non-African American GFR(CKD) 42.6 (60.0-200.0); Phosphorus 4.1 mg/dL (2.4-5.1); Potassium 3.7 mmol/L (3.5-5.5); Uric Acid 7.8 mg/dL (2.9-7.7)
[2021-07-15 19:14] LABS: Appearance,Urine Clear (Clear); Bilirubin,Urine Negative (Negative); Blood,Urine Negative (Negative); Color,Urine Yellow (Yellow); Ketones,Urine Negative (Negative); Leukocyte Esterase,Urine Negative (Negative); Nitrite,Urine Negative (Negative); PH, Urine 5.5 (5.0-8.0); Protein,Urine Negative (Negative); Specific Gravity,Urine 1.017 (1.001-1.030); Urobilinogen,Urine 0.2 (0.2,1.0)
== END | disposition home or self-care (01) ==
LOC: LABWHC1 11:25
PROVIDERS: ATTEND Internal Medicine Nephrology
DX: N25.81 Secondary hyperparathyroidism of renal origin (principal); N18.31 Chronic kidney disease, stage 3a
CPT/HCPCS: 36415; 80048; 81003; 82040; 82306; 82570; 82728; 83540; 83550; 83735; 83970; 84100; 84156; 84550; 85025

== ENCOUNTER 2021-08-05 08:41 | Day surgery (SDC) | payer MEDICARE, OTHER ==
[2021-08-04 08:39] VITALS: BMI 19.8
[2021-08-05 09:17] VITALS: RESP 16; TEMP 97.3
[2021-08-05] MEDS ORDERED: LACTATED RINGERS 1,000 ML IV ONE (09:17)
[2021-08-05] MEDS ORDERED: fentaNYL (PF) 50 MCG/ML 2 ML AMP IVP ONE (09:19)
[2021-08-05] MEDS ORDERED: PROPOFOL 10 MG/ML 20 ML VIAL IV ONE (09:55)
[2021-08-05] MEDS ORDERED: LIDOCAINE 1% INJ 10MG/ML (20 ML MDV) ONE (09:55)
--- NOTE | 2021-08-05 10:05 | P.PCN ---
Date of Procedure: 08/05/21 Procedure(s) Performed: BRIEF HISTORY: Patient is a 75-year-old, pleasant, white female scheduled for an upper endoscopy as a part of evaluation of progressive dysphagia to solids. She has history of esophageal stricture for which she underwent upper endoscopy with dilation in March 2021.. PROCEDURE PERFORMED: Esophagogastroduodenoscopy with balloon dilation and biopsy PREOPERATIVE DIAGNOSIS: Progressive dysphagia to solids of 3 months duration. IV sedation per anesthesia. PROCEDURE: After informed consent was obtained, the patient was brought into the endoscopy unit. IV sedation was administered by Anesthesia under continuous monitoring. Initially the Olympus GIF-140 video endoscope was inserted into the mouth. Esophagus intubated without any difficulty. It was gradually advanced into the distal esophagus and there was a distal esophageal stricture identified. With gentle medication was able to advance the scope into the stomach and duodenum and carefully examined. The bulb had a 1 cm linear ulceration and the second part of the duodenum appeared normal. The scope at this time was withdrawn to the stomach, adequately insufflated with air, and upon careful examination, mucosa of the antrum and erosive lesions were identified and biopsies were done from this area. The, body, cardia and the fundus appeared normal. The scope was then withdrawn into the esophagus. The GE junction was located at 36 cm from the incisors. The distal esophageal stricture noted. At this time using 10-12 mm balloon the stricture was dilated in a sequential fashion for 30 seconds. There was a 7 erosions noted in the distal esophagus consistent with LA grade B reflux esophagitis. The rest of the esophagus appeared normal. There were no erosions or ulcerations seen and the patient tolerated the procedure well. IMPRESSION: 1. Distal esophageal stricture status post balloon dilation using 10-12 mm TTS balloon as described above. Linear Erosions in the distal esophagus consistent with LA grade B reflux esophagitis 2. 1 cm linear duodenal bulbar ulcer 3, Small hiatal hernia 4. Antral erosive gastritis. RECOMMENDATIONS: The findings of this examination were discussed with the patient as well as her family. She was advised to continue with Protonix 40 mg twice daily and follow antireflux measures. She'll be on a clear liquid diet for lunch today. She'll be seen in office in one month..
[2021-08-05] MEDS ORDERED: HYDROcodone/APAP 5-325MG 1 EACH TAB ONE (10:41)
[2021-08-05] MEDS ORDERED: HYDROcodone/APAP 5-325MG 1 EACH TAB PO ONE (10:44)
[2021-08-05 11:06] VITALS: BP 149/82; PULSE 90
== END 2021-08-05 11:24 ==
LOC: ORWHC2ENDO 08:41
PROVIDERS: ATTEND Internal Medicine Gastroenterology
DX: K26.9 Duodenal ulcer, unspecified as acute or chronic, without hemorrhage or perforation (principal); K22.2 Esophageal obstruction; K20.90 Esophagitis, unspecified without bleeding; K29.50 Unspecified chronic gastritis without bleeding
CPT/HCPCS: 43239; 43249; 88305; J2001; J3010; J2704; C1726

== ENCOUNTER → 2021-08-18 | Outpatient (CLI) | payer MEDICARE, OTHER ==
--- NOTE | 2021-08-18 23:56 | CT ---
EXAMINATION TYPE: CT lumbar spine wo con DATE OF EXAM: 08/18/2021 COMPARISON: CT abdomen/pelvis 01/09/2020 HISTORY: hx of chronic L4 fx CT DLP: 352.20 mGycm. Automated Exposure Control for Dose Reduction was Utilized. TECHNIQUE: Multiple contiguous axial CT images of the lumbar spine without the administration of intravenous con trast. 2-D sagittal and coronal reformats were obtained. FINDINGS: Diffuse osseous demineralization. Unchanged mild/moderate superior endplate compression deformity of the L4 vertebral body with promine nt Schmorl's node (approximately 40% height loss). No new or additional compression deformities or ve rtebral body height loss. Mild levoscoliotic curvature of the thoracolumbar spine. No acute fracture or traumatic subluxation. The vertebral disc spaces are preserved. Minimal spondylitic changes at the level of L4-5. Mild facet arthropathy at the level of L5-S1 left greater than right. Paraspinal soft tissues appear unremarkable. 1112: Normal. T12-L1: Normal. L1-2: Normal. L2-3: No disc bulge. No facet arthropathy. No spinal canal stenosis or neural foraminal narrowing. L3-4: Shallow disc bulge. No facet arthropathy. No spinal canal stenosis or neural foraminal narrowin g. L4-5: Shallow disc bulge. Mild facet arthropathy. No spinal canal stenosis or neural foraminal narrow ing. L5-S1: Shallow disc bulge. Mild facet arthropathy. No spinal canal stenosis or neural foraminal narro wing. IMPRESSION: 1. Unchanged mild/moderate superior endplate height loss of the L4 vertebral body. No new compression fractures. 2. Mild degenerative changes of the lumbar spine without spinal canal stenosis or neural foraminal na rrowing.
== END | disposition home or self-care (01) ==
LOC: RADCTMAIN 15:43
PROVIDERS: ATTEND Physical Medicine & Rehabilitation
DX: M51.36 Other intervertebral disc degeneration, lumbar region (principal)
CPT/HCPCS: 72131

== ENCOUNTER → 2021-09-23 | Outpatient (CLI) | payer MEDICARE, OTHER ==
[2021-09-23 18:58] LABS: % Iron Saturation 17.56 (12.00-45.00); ALT 11 U/L (8-44); AST 24 U/L (13-35); African American GFR (CKD) 37.8 (60.0-200.0); Albumin 4.5 g/dL (3.8-4.9); Albumin/Globulin Ratio 1.53 (1.60-3.17); Alkaline Phosphatase 96 U/L (41-126); BUN/Creat Ratio 21.73 Ratio (12.00-20.00); Blood Urea Nitrogen 33.9 mg/dL (9.0-27.0); Calcium 9.7 mg/dL (8.7-10.3); Carbon Dioxide 29.9 mmol/L (20.0-27.5); Chloride 93 mmol/L (96-109); Glucose 100 mg/dL (70-110); Iron 68 ug/dL (50-170); Magnesium 2.5 mg/dL (1.5-2.4); Non-African American GFR(CKD) 32.6 (60.0-200.0); Potassium 4.4 mmol/L (3.5-5.5); Sodium 137 mmol/L (135-145); Total Bilirubin <0.15 mg/dL (0.30-1.20); Total Iron Binding Capacity 385 ug/dL (228-460); Total Protein 7.5 g/dL (6.2-8.2)
[2021-09-23 19:15] LABS: Basophils # (A) 0.09 X 10*3/uL (0.00-0.10); Basophils % (A) 1.4 %; Eosinophils # (A) 0.28 X 10*3/uL (0.04-0.35); Eosinophils % (A) 4.2 %; HCT 38.4 % (37.2-46.3); HGB 11.2 g/dL (12.0-15.0); Immature Grans, Automated 0.5 %; Lymphocytes # (A) 0.93 X 10*3/uL (0.90-5.00); MCH 26.2 pg (27.0-32.0); MCHC 29.2 g/dL (32.0-37.0); MCV 89.7 fL (80.0-97.0); Mean Platelet Volume 9.9 fL (9.5-12.2); Monocytes # (A) 0.52 X 10*3/uL (0.20-1.00); Monocytes % (A) 7.8 %; NRBC Per 100 WBC 0 /100 WBCS (0.0-0.0); Neutrophils # (A) 4.79 X 10*3/uL (1.80-7.70); Neutrophils % (A) 72.1 %; Platelet Count 416 X 10*3/uL (140-440); RBC 4.28 X 10*6/uL (4.10-5.20); WBC 6.64 X 10*3/uL (4.50-10.00)
[2021-09-23 19:16] LABS: Anisocytosis (M) 2+; Spherocytes 2+
== END | disposition home or self-care (01) ==
LOC: LABWHC1 10:24
PROVIDERS: ATTEND Nurse Practitioner Family
DX: N18.31 Chronic kidney disease, stage 3a (principal); E03.9 Hypothyroidism, unspecified; D64.9 Anemia, unspecified
CPT/HCPCS: 36415; 80053; 82728; 83540; 83550; 83735; 84439; 84443; 85025

== ENCOUNTER 2021-12-09 00:26 | Inpatient (IN) | payer MEDICARE, OTHER ==
[2021-12-09] MEDS ORDERED: HYDROmorphone 0.5 MG/0.5 ML SYRINGE IVP STA (01:15)
[2021-12-09 01:42] LABS: Basophils # (A) 0.1 k/uL (0-0.2); Basophils % (A) 1 %; Eosinophils # (A) 0.1 k/uL (0-0.7); Eosinophils % (A) 0 %; HCT 33.6 % (34.0-46.0); HGB 10.5 gm/dL (11.4-16.0); Lymphocytes # (A) 0.9 k/uL (1.0-4.8); Lymphocytes % (A) 7 %; MCH 30.4 pg (25.0-35.0); MCHC 31.2 g/dL (31.0-37.0); MCV 97.4 fL (80.0-100.0); Mean Platelet Volume 7.9; Monocytes # (A) 0.4 k/uL (0-1.0); Monocytes % (A) 3 %; Neutrophils # (A) 10.8 k/uL (1.3-7.7); Neutrophils % (A) 88 %; Platelet Count 271 k/uL (150-450); RBC 3.45 m/uL (3.80-5.40); RDW 14.8 % (11.5-15.5); WBC 12.3 k/uL (3.8-10.6)
[2021-12-09 01:50] LABS: Potassium 3.6 mmol/L (3.5-5.1); Total Bilirubin 0.3 mg/dL (0.2-1.3); Total Protein 6.7 g/dL (6.3-8.2)
--- NOTE | 2021-12-09 01:54 | XR ---
EXAMINATION TYPE: XR femur LT DATE OF EXAM: 12/09/2021 COMPARISON: NONE HISTORY: Fall TECHNIQUE: 5 views FINDINGS: There is oblique displaced subtrochanteric fracture of the left femur. There is 50% lateral displacement. No dislocation at the hip joint. The knee joint appears anatomic. IMPRESSION: Acute subtrochanteric displaced fracture of the left femur.
--- NOTE | 2021-12-09 01:56 | XR ---
EXAMINATION TYPE: XR chest 1V DATE OF EXAM: 12/09/2021 COMPARISON: 08/02/2018 and 02/06/2020 HISTORY: Fall. Fractured femur. TECHNIQUE: Single view FINDINGS: There is no heart failure. Thoracic aorta is atheromatous. There is left axillary pacemaker . No pleural effusion. There are no hilar masses. There is thoracic vertebroplasty. IMPRESSION: Atheromatous aorta. No active cardiopulmonary disease. No adverse change.
[2021-12-09] MEDS ORDERED: HYDROmorphone 1 MG/ML 1 ML SYRINGE IVP STA (03:26)
[2021-12-09] MEDS ORDERED: HYDROmorphone 0.5 MG/0.5 ML SYRINGE IVP PRN (03:32)
[2021-12-09] MEDS ORDERED: NALOXONE 0.4 MG/ML 1 ML VIAL IV PRN (03:32)
[2021-12-09] MEDS ORDERED: SODIUM CHLORIDE 0.9% 500 ML 500 ML IV STA (03:35)
[2021-12-09] MEDS: HYDROmorphone 1 MG/ML 1 ML SYRINGE IVP PRN ×3 (05:48→15:09)
--- NOTE | 2021-12-09 08:16 | ED ---
Fall HPI - General Chief Complaint: Fall Stated Complaint: Fall Time Seen by Provider: 12/09/21 00:29 Source: patient, EMS Mode of arrival: EMS - History of Present Illness Initial Comments: This patient is a 76-year-old woman who presents after having fallen at home. Patient states that she had tripped and fallen. She landed on the left lateral aspect of the hip. She was then not able to move her leg or bearing weight due to pain. Patient denies other injury. No numbness or weakness distal to the injury. was given analgesia prior to arrival and initially had im provement in pain though it is recurring. MD Complaint: fall -: hour(s) Fall From: standing When Fall Occurred: 1 hour [employer] Fall Witnessed: no Place Fall Occurred: home Loss of Consciousness: none Prolonged Down Time?: no Symptoms Prior to Fall: none Location - Extremities: Left: Thigh Severity: severe Quality: sharp Context: tripped/slipped - Related Data Home Medications Medication Instructions Recorded Confirmed SUMAtriptan succinate [Imitrex] 50 mg PO BID PRN 02/15/16 08/22/21 Ergocalciferol (Vitamin D2) 50,000 unit PO FR 01/14/18 08/22/21 [Vitamin D2] Dicyclomine [Bentyl] 10 mg PO TID 05/10/19 08/22/21 Denosumab [Prolia] 60 mg SQ Q180D 02/06/20 08/22/21 Furosemide [Lasix] 80 mg PO BID 02/06/20 08/22/21 L.acidoph,Paracasei, B.lactis 1 cap PO DAILY 02/06/20 08/22/21 [Probiotic] Levothyroxine Sodium [Synthroid] 88 mcg PO DAILY 02/06/20 08/22/21 Pantoprazole Sodium [Protonix] 40 mg PO DAILY 02/06/20 08/22/21 allopurinoL [Zyloprim] 100 mg PO DAILY 02/06/20 08/22/21 Metoprolol Tartrate [Lopressor] 50 mg PO TID 10/05/20 08/22/21 Albuterol Inhaler [Ventolin Hfa 1 - 2 puff INHALATION DIRECTED 08/04/21 08/22/21 Inhaler] PRN Cephalexin [Keflex] 500 mg PO Q12HR 08/04/21 08/22/21 Spironolactone [Aldactone] 25 mg PO DAILY 08/04/21 08/22/21 Previous Rx's Medication Instructions Recorded Potassium Chloride [Potassium 40 meq PO DAILY #0 02/07/20 Chloride ER] Allergies Allergy/AdvReac Type Severity Reaction Status Date / Time adhesive Allergy RASH FROM Verified 08/22/21 10:15 EKG STICKERS apixaban [From Eliquis] Allergy Rash/Hives Verified 08/22/21 10:15 celecoxib [From Celebrex] Allergy Rash/Hives Verified 08/22/21 10:15 sertraline HCl [From Zoloft] Allergy Rash/Hives Verified 08/22/21 10:15 sulfamethoxazole Allergy Anaphylaxis Verified 08/22/21 10:15 [From Bactrim] trimethoprim [From Bactrim] Allergy Anaphylaxis Verified 08/22/21 10:15 cholestyramine AdvReac DIZZY/CONFU Verified 08/22/21 10:15 SED Review of Systems ROS Statement: Those systems with pertinent positive or pertinent negative responses have been documented in the HPI. ROS Other: All systems not noted in ROS Statement are negative. Constitutional: Denies: fever, chills Respiratory: Denies: cough, dyspnea Cardiovascular: Denies: chest pain, palpitations, edema Gastrointestinal: Denies: abdominal pain, vomiting, diarrhea Genitourinary: Denies: dysuria Musculoskeletal: Reports: as per HPI, arthralgia Skin: Denies: rash, lesions Neurological: Denies: headache, weakness, numbness, paresthesias Past Medical History Past Medical History: Atrial Fibrillation, Blood Disorder, Coronary Artery Disease (CAD), Chest Pain / Angina, COPD, Fibromyalgia, GERD/Reflux, GI Bleed, Hypertension, Myocardial Infarction (RI), Musculoskeletal Disorder, Osteoarthritis (OA), Thyroid Disorder Additional Past Medical History / Comment(s): Pacemaker for Syncope/Tachybrady Syndrome. Hx RHEUMATIC FEVER. Heart murmur, chronic back and bilateral shoulder pain. SEVERE OSTEOPROSIS, Vertigo, Degenerative Joint Disease, GI ulcers, esophagitis/esophageal stricture, partially blocked bile duct, PROBLEMS WITH SWALLOWING, "no symptoms of COPD." FALLS "Cannot lie down for long without h aving back pain." Last Myocardial Infarction Date:: 2002 History of Any Multi-Drug Resistant Organisms: None Reported Past Surgical History: Appendectomy, Cardiac Ablation, Cholecystectomy, Ear Surgery, Heart Catheterization, Hysterectomy, Orthopedic Surgery, Pacemaker, Tonsillectomy Additional Past Surgical History / Comment(s): ORIF LEFT LOWER ARM, HAS HARDWARE, numerous DILATATION OF ESOPHAGUS, biopsies were negative, colonoscopy, Pacemaker (ADAPTA) placed 07/07 at [facility], bilateral stapedectomies(stainless steel in both ears), Hiatal Hernia repair, inguinal and femoral hernia repairs, "cement placed in back, due to broken back/pelvis". Past Anesthesia/Blood Transfusion Reactions: Family History of Problems w/ Anesthesia, Motion Sickness, Postoperative Nausea & Vomiting (PONV) Additional Past Anesthesia/Blood Transfusion Reaction / Comment(s): No problems with prior blood transfusion. BROTHER HAS PONV. Type of Cardiac Device: Permanent Pacemaker Device Placement Date:: 06/2016 Past Psychological History: No Psychological Hx Reported Additional Psychological History / Comment(s): DENIES ANY HX OF PROBLEM Smoking Status: Never smoker Past Alcohol Use History: None Reported Additional Past Alcohol Use History / Comment(s): Lives alone Past Drug Use History: None Reported - Past Family History Brother(s) Family Medical History: Cancer Additional Family Medical History / Comment(s): Throat cancer. Father Family Medical History: Pneumonia Additional Family Medical History / Comment(s): EMPHYSEMA. Mother Family Medical History: COPD, Rheumatoid Arthritis (RA) Additional Family Medical History / Comment(s): EMPHYSEMA. General Exam Limitations: no limitations General appearance: alert, in no apparent distress Head exam: Present: atraumatic, normocephalic Eye exam: Present: normal appearance. Absent: scleral icterus, conjunctival injection ENT exam: Present: normal oropharynx Neck exam: Present: normal inspection Respiratory exam: Present: normal lung sounds bilaterally. Absent: respiratory distress, wheezes, rales, rhonchi, stridor Cardiovascular Exam: Present: regular rate, normal rhythm, normal heart sounds. Absent: systolic murmur, diastolic murmur, rubs, gallop GI/Abdominal exam: Present: soft. Absent: distended, tenderness, guarding, rebound, rigid, mass Extremities exam: Present: tenderness, normal capillary refill. Absent: full ROM, pedal edema, calf tenderness Left Hip exam: Present: tenderness, swelling, crepitus. Absent: full ROM, laceration, ecchymosis Upper Leg exam: Present: swelling. Absent: full ROM, abrasion, laceration, ecchymosis Knee exam: Present: normal inspection, full ROM. Absent: tenderness, swelling Lower Leg exam: Present: normal inspection, full ROM. Absent: tenderness, swelling Ankle exam: Present: normal inspection, full ROM. Absent: tenderness, swelling Foot/Toe exam: Present: normal inspection, full ROM. Absent: tenderness, swelling Neurovascular tendon exam: Present: no vascular compromise. Absent: pulse defi cit, abnormal cap refill, motor deficit, sensory deficit, tendon deficit, extremity cold to touch, abnormal 2-point discrimination Gait: unable to bear weight Back exam: Present: normal inspection. Absent: CVA tenderness (R), CVA tenderness (L), vertebral tenderness Neurological exam: Present: alert. Absent: motor sensory deficit Skin exam: Present: warm, dry, intact, normal color. Absent: rash Course Vital Signs 12/09/21 12/09/21 12/09/21 00:33 03:53 05:53 Temperature 97.5 F L 98.4 F Pulse Rate 72 81 Pulse Rate [ 81 Right] Respiratory 16 16 18 Rate Blood Pressure 108/55 114/66 Blood Pressure 118/75 [Right Arm] O2 Sat by Pulse 98 100 99 Oximetry Medical Decision Making - Medical Decision Making Patient is 76-year-old woman who sustained a left subtrochanteric femur fracture. Case is discussed with Dr. Zhao who is on-call. She will accept adm ission. Medical consultation ordered. Patient kept nothing by mouth. - Lab Data Result diagrams: 12/09/21 00:58 12/09/21 00:58 Lab Results 12/09/21 12/09/21 Range/Units 00:58 00:58 WBC 12.3 H (3.8-10.6) k/uL RBC 3.45 L (3.80-5.40) m/uL Hgb 10.5 L (11.4-16.0) gm/dL Hct 33.6 L (34.0-46.0) % MCV 97.4 (80.0-100.0) fL MCH 30.4 (25.0-35.0) pg MCHC 31.2 (31.0-37.0) g/dL RDW 14.8 (11.5-15.5) % Plt Count 271 (150-450) k/uL MPV 7.9 Neutrophils % 88 % Lymphocytes % 7 % Monocytes % 3 % Eosinophils % 0 % Basophils % 1 % Neutrophils # 10.8 H (1.3-7.7) k/uL Lymphocytes # 0.9 L (1.0-4.8) k/uL Monocytes # 0.4 (0-1.0) k/uL Eosinophils # 0.1 (0-0.7) k/uL Basophils # 0.1 (0-0.2) k/uL Sodium 136 L (137-145) mmol/L Potassium 3.6 (3.5-5.1) mmol/L Chloride 99 (98-107) mmol/L Carbon Dioxide 22 (22-30) mmol/L Anion Gap 15 mmol/L BUN 49 H (7-17) mg/dL Creatinine 1.73 H (0.52-1.04) mg/dL Est GFR (CKD-EPI)AfAm 33 (>60 ml/min/1.73 sqM) Est GFR (CKD-EPI)NonAf 29 (>60 ml/min/1.73 sqM) Glucose 149 H (74-99) mg/dL Calcium 9.0 (8.4-10.2) mg/dL Total Bilirubin 0.3 (0.2-1.3) mg/dL AST 39 H (14-36) U/L ALT 21 (4-34) U/L Alkaline Phosphatase 105 (38-126) U/L Total Protein 6.7 (6.3-8.2) g/dL Albumin 4.0 (3.5-5.0) g/dL - EKG Data EKG shows normal: sinus rhythm, axis (Left axis deviation) Rate: normal (Rate 86 bpm) Interpretation: nonspecific ST-T wave changes, other (Pulmonary disease pattern) Disposition Clinical Impression: Femur fracture, left Disposition: ADMITTED IP TO THIS [facility] Condition: Serious Is patient prescribed a controlled substance at d/c from ED?: No
[2021-12-09] MEDS: PANTOPRAZOLE 40 MG/10 ML VIAL IV SCH (08:20)
[2021-12-09 11:51] LABS: Basophils # (A) 0.1 k/uL (0-0.2); Basophils % (A) 1 %; Eosinophils # (A) 0.1 k/uL (0-0.7); Eosinophils % (A) 1 %; HCT 28.2 % (34.0-46.0); Lymphocytes # (A) 1.3 k/uL (1.0-4.8); Lymphocytes % (A) 16 %; MCH 31.7 pg (25.0-35.0); MCHC 31.9 g/dL (31.0-37.0); MCV 99.5 fL (80.0-100.0); Macrocytosis Slight; Mean Platelet Volume 7.9; Monocytes # (A) 0.5 k/uL (0-1.0); Monocytes % (A) 6 %; Neutrophils # (A) 5.8 k/uL (1.3-7.7); Neutrophils % (A) 73 %; Platelet Count 258 k/uL (150-450); RBC 2.83 m/uL (3.80-5.40); RDW 15.2 % (11.5-15.5)
[2021-12-09 12:00] LABS: African American GFR (CKD) 42 (>60 ml/min/1.73 sqM); Anion Gap 11 mmol/L; Blood Urea Nitrogen 41 mg/dL (7-17); Calcium 8.3 mg/dL (8.4-10.2); Carbon Dioxide 22 mmol/L (22-30); Chloride 103 mmol/L (98-107); Glucose 121 mg/dL (74-99); Non-African American GFR(CKD) 37 (>60 ml/min/1.73 sqM); Sodium 136 mmol/L (137-145)
--- NOTE | 2021-12-09 12:05 | P.CRDCN ---
History of Present Illness Consult date: 12/09/21 Chief complaint: Preoperative cardiac assessment History of present illness: The patient is a 76-year-old female patient with a past medical history significant for permanent pacemaker as well as paroxysmal atrial fibrillation currently not on oral anticoagulation for history of gastrointestinal bleeding and the patient is in process of having the watchman device placement in the next few weeks, presented to the hospital after she fell at home. Apparently the patient tripped and fell at home and she landed on the left side of the body. She developed left femur fracture after she underwent an x-ray and evaluation in the emergency department. She was seen by the orthopedic surgical service and the plan is to pursue with surgery tomorrow. The patient clearly stated that she did not lose her consciousness nor she felt dizzy or lightheaded or any feeling of heart racing or fluttering or any presyncope or syncope. No symptoms of chest pain or chest discomfort or shortness of breath. She underwent also cardiac workup including an EKG showing sinus rhythm with no significant ST or T-wave abnormalities and also she underwent a chest x-ray came in to be unremarkable with her blood work is overall unremarkable besides mild anemia which is chronic and also mildly abnormal troponin which is chronic as well. The patient remains asymptomatic from a cardiovascular standpoint overview. Past Medical History Past Medical History: Atrial Fibrillation, Blood Disorder, Coronary Artery Disease (CAD), Chest Pain / Angina, COPD, Fibromyalgia, GERD/Reflux, GI Bleed, Hypertension, Myocardial Infarction ([place]), Musculoskeletal Disorder, Osteoarthritis (OA), Thyroid Disorder Additional Past Medical History / Comment(s): Pacemaker for Syncope/Tachybrady Syndrome. Hx RHEUMATIC FEVER. Heart murmur, chronic back and bilateral shoulder pain. SEVERE OSTEOPROSIS, Vertigo, Degenerative Joint Disease, GI ulcers, esophagitis/esophageal stricture, partially blocked bile duct, PROBLEMS WITH SWALLOWING, "no symptoms of COPD." FALLS "Cannot lie down for long without having back pain." Last Myocardial Infarction Date:: 2002 History of Any Multi-Drug Resistant Organisms: None Reported Past Surgical History: Appendectomy, Cardiac Ablation, Cholecystectomy, Ear Surgery, Heart Catheterization, Hysterectomy, Orthopedic Surgery, Pacemaker, Tonsillectomy Additional Past Surgical History / Comment(s): ORIF LEFT LOWER ARM, HAS HARDWARE, numerous DILATATION OF ESOPHAGUS, biopsies were negative, colonoscopy, Pacemaker (ADAPTA) placed 07/07 at [facility], bilateral stapedectom ies(stainless steel in both ears), Hiatal Hernia repair, inguinal and femoral hernia repairs, "cement placed in back, due to broken back/pelvis". Past Anesthesia/Blood Transfusion Reactions: Family History of Problems w/ Anesthesia, Motion Sickness, Postoperative Nausea & Vomiting (PONV) Additional Past Anesthesia/Blood Transfusion Reaction / Comment(s): No problems with prior blood transfusion. BROTHER HAS PONV. Type of Cardiac Device: Permanent Pacemaker Device Placement Date:: 06/2016 Past Psychological History: No Psychological Hx Reported Additional Psychological History / Comment(s): DENIES ANY HX OF PROBLEM Smoking Status: Never smoker Past Alcohol Use History: None Reported Additional Past Alcohol Use History / Comment(s): Lives alone Past Drug Use History: None Reported - Past Family History Brother(s) Family Medical History: Cancer Additional Family Medical History / Comment(s): Throat cancer. Father Family Medical History: Pneumonia Additional Family Medical History / Comment(s): EMPHYSEMA. Mother Family Medical History: COPD, Rheumatoid Arthritis (RA) Additional Family Medical History / Comment(s): EMPHYSEMA. Medications and Allergies Home Medications Medication Instructions Recorded Confirmed Type SUMAtriptan succinate [Imitrex] 50 mg PO BID PRN 02/15/16 12/09/21 History Ergocalciferol (Vitamin D2) 50,000 unit PO FR 01/14/18 12/09/21 History [Vitamin D2] Dicyclomine [Bentyl] 10 mg PO TID 05/10/19 12/09/21 History Denosumab [Prolia] 60 mg SQ Q180D 02/06/20 12/09/21 History Furosemide [Lasix] 80 mg PO BID 02/06/20 12/09/21 History L.acidoph,Paracasei, B.lactis 1 cap PO DAILY 02/06/20 12/09/21 History [Probiotic] Pantoprazole Sodium [Protonix] 40 mg PO BID 02/06/20 12/09/21 History allopurinoL [Zyloprim] 50 mg PO DAILY 02/06/20 12/09/21 History Metoprolol Tartrate [Lopressor] 50 mg PO BID 10/05/20 12/09/21 History Albuterol Inhaler [Ventolin Hfa 2 puff INHALATION RT-Q4H PRN 08/04/21 12/09/21 History Inhaler] Spironolactone [Aldactone] 25 mg PO DAILY 08/04/21 12/09/21 History Amitriptyline HCl [Elavil] 25 mg PO HS 12/09/21 12/09/21 History Aspirin EC [Ecotrin Low Dose] 81 mg PO DAILY 12/09/21 12/09/21 History Diclofenac Sodium [Voltaren] 75 mg PO BID 12/09/21 12/09/21 History Diltiazem Cd [Cardizem CD] 120 mg PO DAILY 12/09/21 12/09/21 History Ergocalciferol [Vitamin D2 (1250 1,250 mcg PO Q7D 12/09/21 12/09/21 History Mcg = 34912 Iu)] HYDROcodone/APAP 5-325MG [[place] 1 tab PO BID PRN 12/09/21 12/09/21 History 5-325] Levothyroxine Sodium 100 mcg PO AC-BRKFST 12/09/21 12/09/21 History Magnesium Gluconate [Magonate] 750 mg PO DAILY 12/09/21 12/09/21 History Menthol-Zinc Oxide Oint 1 applic TOPICAL DAILY 12/09/21 12/09/21 History [Calmoseptine Ointment] Potassium Chloride [Potassium 40 meq PO BID 12/09/21 12/09/21 History Chloride ER] calcitrioL [Calcitriol] 0.25 mcg PO Q7D 12/09/21 12/09/21 History hydrOXYzine HCL [Atarax] 25 mg PO Q6H PRN 12/09/21 12/09/21 History polyethylene glycoL 3350 [Miralax] 17 gm PO DAILY 12/09/21 12/09/21 History Allergies Allergy/AdvReac Type Severity Reaction Status Date / Time adhesive Allergy RASH FROM Verified 12/09/21 09:52 EKG STICKERS apixaban [From Eliquis] Allergy Rash/Hives Verified 12/09/21 09:52 celecoxib [From Celebrex] Allergy Rash/Hives Verified 12/09/21 09:52 sertraline HCl [From Zoloft] Allergy Rash/Hives Verified 12/09/21 09:52 sulfamethoxazole Allergy Anaphylaxis Verified 12/09/21 09:52 [From Bactrim] trimethoprim [From Bactrim] Allergy Anaphylaxis Verified 12/09/21 09:52 cholestyramine AdvReac DIZZY/CONFU Verified 12/09/21 09:52 SED Physical Exam Vitals: Vital Signs Temp Pulse Pulse Resp BP BP Pulse Ox 12/09/21 07:24 97.3 F L 87 14 110/68 100 12/09/21 07:10 81 18 12/09/21 05:53 98.4 F 81 18 118/75 99 12/09/21 03:53 81 16 114/66 100 12/09/21 00:33 97.5 F L 72 16 108/55 98 Intake and Output 12/08/21 12/09/21 12/09/21 22:59 06:59 14:59 Other: Weight 43.545 kg - Constitutional General appearance: no acute distress - Respiratory Respiratory: bilateral: CTA - Cardiovascular Rhythm: regular Heart sounds: normal: S1, S2 Abnormal Heart Sounds: systolic murmur Results 12/09/21 11:25 12/09/21 11:25 Cardiac Enzymes 12/09/21 Range/Units 00:58 AST 39 H (14-36) U/L CBC 12/09/21 12/09/21 Range/Units 00:58 11:25 WBC 12.3 H 8.0 (3.8-10.6) k/uL RBC 3.45 L 2.83 L (3.80-5.40) m/uL Hgb 10.5 L 9.0 L D (11.4-16.0) gm/dL Hct 33.6 L 28.2 L (34.0-46.0) % Plt Count 271 258 (150-450) k/uL Comprehensive Metabolic Panel 12/09/21 12/09/21 Range/Units 00:58 11:25 Sodium 136 L 136 L (137-145) mmol/L Potassium 3.6 4.0 (3.5-5.1) mmol/L Chloride 99 103 (98-107) mmol/L Carbon Dioxide 22 22 (22-30) mmol/L BUN 49 H 41 H (7-17) mg/dL Creatinine 1.73 H 1.41 H (0.52-1.04) mg/dL Glucose 149 H 121 H (74-99) mg/dL Calcium 9.0 8.3 L (8.4-10.2) mg/dL AST 39 H (14-36) U/L ALT 21 (4-34) U/L Alkaline Phosphatase 105 (38-126) U/L Total Protein 6.7 (6.3-8.2) g/dL Albumin 4.0 (3.5-5.0) g/dL Current Medications Generic Name Dose Route Start Last Admin Trade Name Freq PRN Reason Stop Dose Admin Hydromorphone HCl 0.5 mg 12/09/21 03:32 Hydromorphone 0.5 Mg/0.5 Ml Syringe IVP Q3HR PRN Moderate Pain Hydromorphone HCl 1 mg 12/09/21 03:32 12/09/21 08:20 Hydromorphone 1 Mg/Ml 1 Ml Syringe IVP 1 mg Q3HR PRN Administration Severe Pain Sodium Chloride 1,000 mls @ 75 mls/hr 12/09/21 03:45 Saline 0.9% IV .[id number] INOCENCIO Naloxone HCl 0.2 mg 12/09/21 03:32 Naloxone 0.4 Mg/Ml 1 Ml Vial IV Q2M PRN Opioid Reversal Ondansetron HCl 4 mg 12/09/21 03:32 Ondansetron 4 Mg/2 Ml Vial IVP Q8HR PRN Nausea And Vomiting Pantoprazole Sodium 40 mg 12/09/21 09:00 12/09/21 08:20 Pantoprazole 40 Mg/10 Ml Vial IV 40 mg DAILY INOCENCIO Administration Intake and Output 12/08/21 12/09/21 12/09/21 22:59 06:59 14:59 Other: Weight 43.545 kg 12/09/21 11:25 12/09/21 11:25 Assessment and Plan Assessment: Assessment #1 status post fall and left femur fracture #2 paroxysmal atrial fibrillation not on anticoagulation #3 history of permanent pacemaker Plan #1 the patient can proceed with the hip surgery #2 no need for any further cardiac workup at this point #3 follow-up with the patient on when necessary
[2021-12-09 12:31] VITALS: BMI 18.1
[2021-12-09] MEDS ORDERED: ALBUTEROL HFA INHALER INHALATION PRN (14:26)
[2021-12-09] MEDS ORDERED: HYDROcodone/APAP 5-325MG 1 EACH TAB PO PRN (14:26)
[2021-12-09] MEDS ORDERED: SUMAtriptan succinate 50 MG TAB PO PRN (14:26)
[2021-12-09] MEDS ORDERED: DILTIAZEM CD 120 MG CAP.ER.24H PO SCH (14:30)
--- NOTE | 2021-12-09 14:34 | P.CONS ---
History of Present Illness - Reason for Consult Consult date: 12/09/21 Medical management recent fall with left femur fracture - History of Present Illness This is a pleasant 76-year-old female who presented to the emergency department via EMS after falling at home. Patient reports to tripping and falling landing directly on her left hip and immediately being unable to pay her weight or move her leg. Patient denies any dizziness or lightheadedness or syncope prior to the fall and reports no head injury on landing. Patient follows with Dr. Wray in the outpatient setting and has history of atrial fibrillation, coronary artery disease, chest pain/angina, COPD, fibromyalgia, gastroesophageal reflux disease, GI bleed history, hypertension, myocardial infarction, osteoarthritis, hypothyroidism, and severe osteoporosis. Patient with a cardiac history as history of atrial fibrillation and unable to tolerate oral anticoagulant with severe ALLERGIC reactions and has not been on any anticoagulation and follows with Dr. Penn in the outpatient setting. Patient is scheduled tentatively for left hip surgery with orthopedics on 12/10/2021. Patient does have a pacemaker placed and also is scheduled to receive a watchman device on January 04 at [facility]. X-ray in the emergency department shows an oblique displaced subtrochanteric fracture of the left femur with 50% lateral displacement and no dislocation of the hip joint. Chest x-ray shows no heart failure a noted pacemaker and no pleural effusions. EKG reveals sinus rhythm with a rate of 86 Labs: WBC shows 12.3, hemoglobin is 10.5, sodium is 136, potassium 3.6, BUN 49, creatinine 1.73 Review Of Systems: Constitutional: No fever, no chills, no night sweats. No weight change. No weakness, fatigue or lethargy. No daytime sleepiness. EENT: No headache. No blurred vision or double vision, no loss of vision. No loss of Hearing, no ringing in the ears, no dizziness. No nasal drainage or congestion. No epistaxis. No sore throat. Lungs: No shortness of breath, cough, no sputum production. No wheezing. Cardiovascular: No chest pain, no lower extremity edema. No palpitations. No paroxysmal nocturnal dyspnea. No orthopnea. No lightheadedness or dizziness. No syncopal episodes. Abdominal: No abdominal pain. No nausea, vomiting. No diarrhea. No constipation. No bloody or tarry stools.. No loss of appetite. Genitourinary: No dysuria, increased frequency, urgency. No urinary retention. Musculoskeletal: No myalgias. No muscle weakness, reports gait dysfunction, reports falling yesterday. No back pain. No neck pain. Reports left hip pain Integumentary: No wounds, no lesions. No rash or pruritus. No unusual bruising. No change in hair or nails. Neurologic: No aphasia. No facial droop. No change in mentation. No head injury. No headache. No paralysis. No paresthesia. Psychiatric: No depression. No anxiety. No mood swings. Endocrine: No abnormal blood sugars. No weight change. No excessive sweating or thirst. No cold intolerance. PHYSICAL EXAMINATION: GENERAL: The patient is alert and oriented x4, Well developed, well nourished. Thin built HEENT: Pupils are round and equally reacting to light. EOMI. no scleral icterus. No conjunctival pallor. Normocephalic, atraumatic. No pharyngeal erythema. No thyromegaly. CARDIOVASCULAR: S1 and S2 muffled, irregularly irregular PULMONARY: diminished breath sounds bilaterally with no wheezing or rhonchi noted. ABDOMEN: soft. Nontender on exam. non-distended, normoactive bowel sounds. No palpable organomegaly. MUSCULOSKELETAL: No joint swelling or deformity. Left hip tenderness and swelling noted on exam EXTREMITIES: No cyanosis, clubbing, or pedal edema. NEUROLOGICAL: Gross neurological examination did not reveal any focal deficits. Diffuse weakness SKIN: No rashes. Assessment: Mechanical fall with left hip pain Sub-trochanteric fracture of the left femur with 50% lateral displacement noted on x-ray Secondary to the fall Paroxysmal atrial fibrillation, not on anticoagulation as patient had an AL LERGIC reaction scheduled outpatient in December for a watchman device Acute kidney injury, prerenal, improving on gentle IV hydration and will continue for now and follow-up with repeat labs in the a.m. Chronic anemia Coronary artery disease COPD, not in exacerbation History of fibromyalgia gastroesophageal reflux disease Hypertension Osteoarthritis Hypothyroidism GI prophylaxis DVT prophylaxis Full code Plan: Recommend to continue with current medications and management per orthopedic services. Patient had a mechanical fall yesterday at home after tripping and was found to have a left femur fracture and admitted under orthopedic services. Plan is for surgical intervention on 12/10/2021. Given patient's extensive heart history have ordered cardiac clearance with Dr. Skaf. Risks versus benefits of surgery was explained and patient and family at the bedside are willing to proceed with surgical intervention. Given patient's other medical conditions and after discussing with patient and family, okay to proceed with surgery and will continue to follow during hospitalization. Recommend PT/OT evaluation after surgery and also DVT prophylaxis. Recommend to resume appropriate home medications. Will continue to follow along with orthopedic surgery with further recommendations to follow. Will order repeat a.m. labs and recommend continue with gentle IV hydration for now. Due to multiple complex medical issues, prognosis is guarded. The impression and plan of care has been dictated by Lauryn Briscoe, nurse practitioner as directed. Dr. Mayra MD I have performed a history and examination and MDM of this patient, discussed the same with the dictator, and agree with the dictator's assessment and plan as written ,documented as a scribe. Based on total visit time, I have performed more than 50% of the visit. Any additional findings or plans will be noted. Past Medical History Past Medical History: Atrial Fibrillation, Blood Disorder, Coronary Artery Disease (CAD), Chest Pain / Angina, COPD, Fibromyalgia, GERD/Reflux, GI Bleed, Hypertension, Myocardial Infarction ([place]), Musculoskeletal Disorder, Osteoarthritis ([place]), Thyroid Disorder Additional Past Medical History / Comment(s): Pacemaker for Syncope/Tachybrady Syndrome. Hx RHEUMATIC FEVER. Heart murmur, chronic back and bilateral shoulder pain. SEVERE OSTEOPROSIS, Vertigo, Degenerative Joint Disease, GI ulcers, es ophagitis/esophageal stricture, partially blocked bile duct, PROBLEMS WITH SWALLOWING, "no symptoms of COPD." FALLS "Cannot lie down for long without having back pain." Last Myocardial Infarction Date:: 2002 History of Any Multi-Drug Resistant Organisms: None Reported Past Surgical History: Appendectomy, Cardiac Ablation, Cholecystectomy, Ear Surgery, Heart Catheterization, Hysterectomy, Orthopedic Surgery, Pacemaker, Ton sillectomy Additional Past Surgical History / Comment(s): ORIF LEFT LOWER ARM, HAS HARDWARE, numerous DILATATION OF ESOPHAGUS, biopsies were negative, colonoscopy, Pacemaker (ADAPTA) placed 07/07 at [facility], bilateral stapedectomies(stainless steel in both ears), Hiatal Hernia repair, inguinal and femoral hernia repairs, "cement placed in back, due to broken back/pelvis". Past Anesthesia/Blood Transfusion Reactions: Family History of Problems w/ Anesthesia, Motion Sickness, Postoperative Nausea & Vomiting (PONV) Additional Past Anesthesia/Blood Transfusion Reaction / Comm: No problems with prior blood transfusion. BROTHER HAS PONV. Type of Cardiac Device: Permanent Pacemaker Device Placement Date:: 06/2016 Past Psychological History: No Psychological Hx Reported Additional Psychological History / Comment(s): DENIES ANY HX OF PROBLEM Smoking Status: Never smoker Past Alcohol Use History: None Reported Additional Past Alcohol Use History / Comment(s): Lives alone Past Drug Use History: None Reported - Past Family History Brother(s) Family Medical History: Cancer Additional Family Medical History / Comment(s): Throat cancer. Father Family Medical History: Pneumonia Additional Family Medical History / Comment(s): EMPHYSEMA. Mother Family Medical History: COPD, Rheumatoid Arthritis (RA) Additional Family Medical History / Comment(s): EMPHYSEMA. Medications and Allergies Home Medications Medication Instructions Recorded Confirmed Type SUMAtriptan succinate [Imitrex] 50 mg PO BID PRN 02/15/16 12/09/21 History Ergocalciferol (Vitamin D2) 50,000 unit PO FR 01/14/18 12/09/21 History [Vitamin D2] Dicyclomine [Bentyl] 10 mg PO TID 05/10/19 12/09/21 History Denosumab [Prolia] 60 mg SQ Q180D 02/06/20 12/09/21 History Furosemide [Lasix] 80 mg PO BID 02/06/20 12/09/21 History L.acidoph,Paracasei, B.lactis 1 cap PO DAILY 02/06/20 12/09/21 History [Probiotic] Pantoprazole Sodium [Protonix] 40 mg PO BID 02/06/20 12/09/21 History allopurinoL [Zyloprim] 50 mg PO DAILY 02/06/20 12/09/21 History Metoprolol Tartrate [Lopressor] 50 mg PO BID 10/05/20 12/09/21 History Albuterol Inhaler [Ventolin Hfa 2 puff INHALATION RT-Q4H PRN 08/04/21 12/09/21 History Inhaler] Spironolactone [Aldactone] 25 mg PO DAILY 08/04/21 12/09/21 History Amitriptyline HCl [Elavil] 25 mg PO HS 12/09/21 12/09/21 History Aspirin EC [Ecotrin Low Dose] 81 mg PO DAILY 12/09/21 12/09/21 History Diclofenac Sodium [Voltaren] 75 mg PO BID 12/09/21 12/09/21 History Diltiazem Cd [Cardizem CD] 120 mg PO DAILY 12/09/21 12/09/21 History Ergocalciferol [Vitamin D2 (1250 1,250 mcg PO Q7D 12/09/21 12/09/21 History Mcg = 27005 Iu)] HYDROcodone/APAP 5-325MG [Alexander 1 tab PO BID PRN 12/09/21 12/09/21 History 5-325] Levothyroxine Sodium 100 mcg PO AC-BRKFST 12/09/21 12/09/21 History Magnesium Gluconate [Magonate] 750 mg PO DAILY 12/09/21 12/09/21 History Menthol-Zinc Oxide Oint 1 applic TOPICAL DAILY 12/09/21 12/09/21 History [Calmoseptine Ointment] Potassium Chloride [Potassium 40 meq PO BID 12/09/21 12/09/21 History Chloride ER] calcitrioL [Calcitriol] 0.25 mcg PO Q7D 12/09/21 12/09/21 History hydrOXYzine HCL [Atarax] 25 mg PO Q6H PRN 12/09/21 12/09/21 History polyethylene glycoL 3350 [Miralax] 17 gm PO DAILY 12/09/21 12/09/21 History Allergies Allergy/AdvReac Type Severity Reaction Status Date / Time adhesive Allergy RASH FROM Verified 12/09/21 09:52 EKG STICKERS apixaban [From Eliquis] Allergy Rash/Hives Verified 12/09/21 09:52 celecoxib [From Celebrex] Allergy Rash/Hives Verified 12/09/21 09:52 sertraline HCl [From Zoloft] Allergy Rash/Hives Verified 12/09/21 09:52 sulfamethoxazole Allergy Anaphylaxis Verified 12/09/21 09:52 [From Bactrim] trimethoprim [From Bactrim] Allergy Anaphylaxis Verified 12/09/21 09:52 cholestyramine AdvReac DIZZY/CONFU Verified 12/09/21 09:52 SED Physical Exam Vitals: Vital Signs Temp Pulse Pulse Resp BP BP Pulse Ox 12/09/21 07:24 97.3 F L 87 14 110/68 100 12/09/21 07:10 81 18 12/09/21 05:53 98.4 F 81 18 118/75 99 12/09/21 03:53 81 16 114/66 100 12/09/21 00:33 97.5 F L 72 16 108/55 98 Intake and Output 12/08/21 12/09/21 12/09/21 22:59 06:59 14:59 Other: Weight 43.545 kg Results CBC & Chem 7: 12/09/21 11:25 12/09/21 11:25 Labs: Abnormal Lab Results - Last 24 Hours (Table) 12/09/21 12/09/21 Range/Units 00:58 00:58 WBC 12.3 H (3.8-10.6) k/uL RBC 3.45 L (3.80-5.40) m/uL Hgb 10.5 L (11.4-16.0) gm/dL Hct 33.6 L (34.0-46.0) % Neutrophils # 10.8 H (1.3-7.7) k/uL Lymphocytes # 0.9 L (1.0-4.8) k/uL Sodium 136 L (137-145) mmol/L BUN 49 H (7-17) mg/dL Creatinine 1.73 H (0.52-1.04) mg/dL Glucose 149 H (74-99) mg/dL AST 39 H (14-36) U/L Assessment and Plan Time with Patient: Greater than 30
[2021-12-09] MEDS: DICYCLOMINE 10 MG CAP PO SCH ×2 (15:09→20:24)
[2021-12-09] MEDS: ONDANSETRON 4 MG/2 ML VIAL IVP PRN (15:09)
[2021-12-09] MEDS: allopurinoL 100 MG TAB PO SCH (15:09)
[2021-12-09] MEDS ORDERED: ERGOCALCIFEROL 1,250 MCG (50,000 IU) CAPSULE PO SCH (16:00)
--- NOTE | 2021-12-09 16:26 | P.HPOR ---
History of Present Illness H&P Date: 12/09/21 This patient is a 76-year-old female with past medical history of permanent pacemaker, atrial fibrillation not on anticoagulation due to GI bleed that presented to [facility] emergency department yesterday with complaints of left lower extremity pain following a fall at home. The patient states she was at home and turned her leg the wrong way, and her leg gave way. She fell to the floor and experienced immediate pain in left thigh. She was unable to get up on her own, therefore she called an ambulance. Upon presentation to the ER, x- rays were taken and revealed a subtrochanteric femur fracture. Patient was admitted under the care of Dr. Zhao and a consulted was placed to internal medi cine for pre-operative medical clearance. Patient is examined bedside this afternoon. She is complaining of isolated left thigh pain. She denies hitting her head. She has no additional complaints at this time. Her pain is well-controlled at this time. Vital signs stable. Past Medical History Past Medical History: Atrial Fibrillation, Blood Disorder, Coronary Artery Disease (CAD), Chest Pain / Angina, COPD, Fibromyalgia, GERD/Reflux, GI Bleed, Hypertension, Myocardial Infarction (GA), Musculoskeletal Disorder, Osteoarthritis (OA), Thyroid Disorder Additional Past Medical History / Comment(s): Pacemaker for Syncope/Tachybrady Syndrome. Hx RHEUMATIC FEVER. Heart murmur, chronic back and bilateral shoulder pain. SEVERE OSTEOPROSIS, Vertigo, Degenerative Joint Disease, GI ulcers, esophagitis/esophageal stricture, partially blocked bile duct, PROBLEMS WITH SWALLOWING, "no symptoms of COPD." FALLS "Cannot lie down for long without having back pain." Last Myocardial Infarction Date:: 2002 History of Any Multi-Drug Resistant Organisms: None Reported Past Surgical History: Appendectomy, Cardiac Ablation, Cholecystectomy, Ear Surgery, Heart Catheterization, Hysterectomy, Orthopedic Surgery, Pacemaker, Tonsillectomy Additional Past Surgical History / Comment(s): ORIF LEFT LOWER ARM, HAS HARDWARE, numerous DILATATION OF ESOPHAGUS, biopsies were negative, colonoscopy, Pacemaker (ADAPTA) placed 07/07 at [facility], bilateral stapedectomies(stainless steel in both ears), Hiatal Hernia repair, inguinal and femoral hernia repairs, "cement placed in back, due to broken back/pelvis". Past Anesthesia/Blood Transfusion Reactions: Family History of Problems w/ Anesthesia, Motion Sickness, Postoperative Nausea & Vomiting (PONV) Additional Past Anesthesia/Blood Transfusion Reaction / Comment(s): No problems with prior blood transfusion. BROTHER HAS PONV. Type of Cardiac Device: Permanent Pacemaker Device Placement Date:: 06/2016 Past Psychological History: No Psychological Hx Reported Additional Psychological History / Comment(s): DENIES ANY HX OF PROBLEM Smoking Status: Never smoker Past Alcohol Use History: None Reported Additional Past Alcohol Use History / Comment(s): Lives alone Past Drug Use History: None Reported - Past Family History Brother(s) Family Medical History: Cancer Additional Family Medical History / Comment(s): Throat cancer. Father Family Medical History: Pneumonia Additional Family Medical History / Comment(s): EMPHYSEMA. Mother Family Medical History: COPD, Rheumatoid Arthritis (RA) Additional Family Medical History / Comment(s): EMPHYSEMA. Medications and Allergies Home Medications Medication Instructions Recorded Confirmed Type SUMAtriptan succinate [Imitrex] 50 mg PO BID PRN 02/15/16 12/09/21 History Ergocalciferol (Vitamin D2) 50,000 unit PO FR 01/14/18 12/09/21 History [Vitamin D2] Dicyclomine [Bentyl] 10 mg PO TID 05/10/19 12/09/21 History Denosumab [Prolia] 60 mg SQ Q180D 02/06/20 12/09/21 History Furosemide [Lasix] 80 mg PO BID 02/06/20 12/09/21 History L.acidoph,Paracasei, B.lactis 1 cap PO DAILY 02/06/20 12/09/21 History [Probiotic] Pantoprazole Sodium [Protonix] 40 mg PO BID 02/06/20 12/09/21 History allopurinoL [Zyloprim] 50 mg PO DAILY 02/06/20 12/09/21 History Metoprolol Tartrate [Lopressor] 50 mg PO BID 10/05/20 12/09/21 History Albuterol Inhaler [Ventolin Hfa 2 puff INHALATION RT-Q4H PRN 08/04/21 12/09/21 History Inhaler] Spironolactone [Aldactone] 25 mg PO DAILY 08/04/21 12/09/21 History Amitriptyline HCl [Elavil] 25 mg PO HS 12/09/21 12/09/21 History Aspirin EC [Ecotrin Low Dose] 81 mg PO DAILY 12/09/21 12/09/21 History Diclofenac Sodium [Voltaren] 75 mg PO BID 12/09/21 12/09/21 History Diltiazem Cd [Cardizem CD] 120 mg PO DAILY 12/09/21 12/09/21 History Ergocalciferol [Vitamin D2 (1250 1,250 mcg PO Q7D 12/09/21 12/09/21 History Mcg = 04120 Iu)] HYDROcodone/APAP 5-325MG [Star 1 tab PO BID PRN 12/09/21 12/09/21 History 5-325] Levothyroxine Sodium 100 mcg PO AC-BRKFST 12/09/21 12/09/21 History Magnesium Gluconate [Magonate] 750 mg PO DAILY 12/09/21 12/09/21 History Menthol-Zinc Oxide Oint 1 applic TOPICAL DAILY 12/09/21 12/09/21 History [Calmoseptine Ointment] Potassium Chloride [Potassium 40 meq PO BID 12/09/21 12/09/21 History Chloride ER] calcitrioL [Calcitriol] 0.25 mcg PO Q7D 12/09/21 12/09/21 History hydrOXYzine HCL [Atarax] 25 mg PO Q6H PRN 12/09/21 12/09/21 History polyethylene glycoL 3350 [Miralax] 17 gm PO DAILY 12/09/21 12/09/21 History Allergies Allergy/AdvReac Type Severity Reaction Status Date / Time adhesive Allergy RASH FROM Verified 12/09/21 09:52 EKG STICKERS apixaban [From Eliquis] Allergy Rash/Hives Verified 12/09/21 09:52 celecoxib [From Celebrex] Allergy Rash/Hives Verified 12/09/21 09:52 sertraline HCl [From Zoloft] Allergy Rash/Hives Verified 12/09/21 09:52 sulfamethoxazole Allergy Anaphylaxis Verified 12/09/21 09:52 [From Bactrim] trimethoprim [From Bactrim] Allergy Anaphylaxis Verified 12/09/21 09:52 cholestyramine AdvReac DIZZY/CONFU Verified 12/09/21 09:52 SED Physical Examination Osteopathic Statement: *. No significant issues noted on an osteopathic structural exam other than those noted in the History and Physical/Consult. On examination, patient is sitting up in bed in no apparent distress. She is alert and orientated x3. Her head appears normocephalic and atraumatic. Her breathing appears non-labored. On inspection of her bilateral upper extremities, no obvious deformities or signs of trauma. On inspection of her right lower extremity, no obvious deformities or signs of trauma. On inspection of her left thigh, there is a small area of ecchymosis with moderate swelling. No open wounds. Thigh is soft and compressible. Motor and sensory function intact of the LLE. Dorsalis pedis pulse easily palpable, LLE warm and well perfused. Results Left femur x-ray 12/08/21: Displaced subtrochanteric femur fracture - Labs Labs: Abnormal Lab Results - Last 24 Hours (Table) 12/09/21 12/09/21 12/09/21 Range/Units 00:58 00:58 11:25 WBC 12.3 H (3.8-10.6) k/uL RBC 3.45 L 2.83 L (3.80-5.40) m/uL Hgb 10.5 L 9.0 L D (11.4-16.0) gm/dL Hct 33.6 L 28.2 L (34.0-46.0) % Neutrophils # 10.8 H (1.3-7.7) k/uL Lymphocytes # 0.9 L (1.0-4.8) k/uL Sodium 136 L (137-145) mmol/L BUN 49 H (7-17) mg/dL Creatinine 1.73 H (0.52-1.04) mg/dL Glucose 149 H (74-99) mg/dL Calcium (8.4-10.2) mg/dL AST 39 H (14-36) U/L 12/09/21 Range/Units 11:25 WBC (3.8-10.6) k/uL RBC (3.80-5.40) m/uL Hgb (11.4-16.0) gm/dL Hct (34.0-46.0) % Neutrophils # (1.3-7.7) k/uL Lymphocytes # (1.0-4.8) k/uL Sodium 136 L (137-145) mmol/L BUN 41 H (7-17) mg/dL Creatinine 1.41 H (0.52-1.04) mg/dL Glucose 121 H (74-99) mg/dL Calcium 8.3 L (8.4-10.2) mg/dL AST (14-36) U/L H & H 12/09/21 12/09/21 Range/Units 00:58 11:25 Hgb 10.5 L 9.0 L D (11.4-16.0) gm/dL Hct 33.6 L 28.2 L (34.0-46.0) % Result Diagrams: 12/09/21 11:25 12/09/21 11:25 Assessment and Plan Assessment: Left displaced subtrochanteric femur fracture Plan: - The clinical and imaging findings were discussed with the patient. The patient was discussed with Dr. Lee. Recommend surgical fixation of the left femur, open reduction internal fixation intramedullary thu tomorrow morning, pending medical clearance. Surgical risks were discussed with the patient. Patient gave verbal consent for surgery bedside. - Strict nonweightbearing left lower extremity. Bed rest. - Pain management as needed. - Internal medicine, cardiology for preoperative medical clearance. - NPO diet at midnight. The patient was seen and examined at bedside. She is actually on the cardiac unit and now has she went into atrial fibrillation with some benefit ventricular response. She is remain stable but her pulse went up to 144. She has had a history of atrial fibrillation the past. She is not currently on any anticoagulants. She has a left subtrochanteric femur fracture with significant displacement and angulation. The only way to predict that she would be able to start to mobilize this with stabilization of the fracture and we discussed this at length bedside. I think that she is a good candidate for intramedullary thu fixation of the left femur. I discussed the risks, patient alternatives and benefits. We will plan to proceed with surgery in the morning as long as she is cardiac stable.
[2021-12-09] MEDS ORDERED: DILTIAZEM 125 MG in SODIUM CHLORIDE 0.9% 100 ML IV SCH (17:30)
[2021-12-09] MEDS: SODIUM CHLORIDE 0.9% 1,000 ML IV SCH ×2 (18:29→19:15)
[2021-12-09] MEDS: DILTIAZEM 125 MG in SODIUM CHLORIDE 0.9% 100 ML IV SCH (18:29)
[2021-12-09 19:16] LABS: Appearance,Urine Clear (Clear); Bilirubin,Urine Negative (Negative); Blood,Urine Negative (Negative); Color,Urine Light Yellow; Glucose,Urine (UA) Negative (Negative); Ketones,Urine Negative (Negative); Leukocyte Esterase,Urine Negative (Negative); Nitrite,Urine Negative (Negative); Protein,Urine Negative (Negative); Specific Gravity,Urine 1.011 (1.001-1.035); Urobilinogen,Urine <2.0 mg/dL (<2.0)
[2021-12-09] MEDS: METOPROLOL TARTRATE 50 MG TAB PO SCH (20:24)
[2021-12-09] MEDS: AMITRIPTYLINE HCL 25 MG TAB PO SCH (20:24)
[2021-12-10] MEDS ORDERED: SODIUM CHLORIDE 0.9% 500 ML 500 ML IV ONE (01:10)
[2021-12-10] MEDS ORDERED: MORPHINE SULFATE 4 MG/ML SYRINGE IVP ONE (01:12)
[2021-12-10] MEDS: ACETAMINOPHEN TAB 325 MG TAB PO PRN ×3 (01:17→20:58)
[2021-12-10] MEDS ORDERED: AMIODARONE 360 MG in DEXTROSE 5% IN WATER 200 ML IV ONE ×2 (01:30)
[2021-12-10] MEDS ORDERED: PHENYLEPHRINE-0.9% NACL SYG 1,000 MCG/10 ML SYRINGE ONE (08:01)
[2021-12-10] MEDS ORDERED: KETAMINE 10 MG/ML 20 ML VIAL ONE (08:01)
[2021-12-10] MEDS ORDERED: MIDAZOLAM 2 MG/2 ML VIAL ONE (08:01)
[2021-12-10] MEDS ORDERED: fentaNYL (PF) 50 MCG/ML 2 ML AMP ONE (08:01)
[2021-12-10] MEDS ORDERED: ePHEDrine 50 MG/ML 1 ML VIAL ONE (08:01)
[2021-12-10] MEDS ORDERED: SODIUM CHLORIDE 0.9% 1,000 ML IV ONE ×2 (08:05→09:50)
[2021-12-10 08:12] LABS: Calcium 8.2 mg/dL (8.4-10.2); Potassium 3.6 mmol/L (3.5-5.1)
[2021-12-10 08:14] LABS: Basophils # (A) 0.1 k/uL (0-0.2); Basophils % (A) 1 %; Eosinophils # (A) 0.3 k/uL (0-0.7); Eosinophils % (A) 4 %; HCT 21.6 % (34.0-46.0); Hypochromasia Slight; Lymphocytes # (A) 1.1 k/uL (1.0-4.8); Lymphocytes % (A) 16 %; MCH 31.1 pg (25.0-35.0); MCHC 31.3 g/dL (31.0-37.0); MCV 99.3 fL (80.0-100.0); Macrocytosis Slight; Monocytes # (A) 0.5 k/uL (0-1.0); Monocytes % (A) 6 %; Neutrophils # (A) 4.9 k/uL (1.3-7.7); Neutrophils % (A) 70 %; Platelet Count 235 k/uL (150-450); RBC 2.18 m/uL (3.80-5.40); RDW 15.7 % (11.5-15.5)
[2021-12-10 08:21] LABS: HGB 6.8 gm/dL (11.4-16.0)
[2021-12-10] MEDS ORDERED: ceFAZolin 1,000 MG in SODIUM CHLORIDE 0.9% 1,000 ML IRRIGATION ONE (08:53)
[2021-12-10] MEDS ORDERED: BUPIVACAINE (PF) 0.5% 30 ML VIAL SQ ONE (10:28)
[2021-12-10] MEDS ORDERED: ONDANSETRON 4 MG/2 ML VIAL IVP PRN (10:54)
[2021-12-10] MEDS ORDERED: NALOXONE 0.4 MG/ML 1 ML VIAL IV PRN (10:54)
[2021-12-10] MEDS: ONDANSETRON 4 MG/2 ML VIAL IVP PRN (11:11)
--- NOTE | 2021-12-10 11:19 | P.OP ---
Date of Procedure: 12/10/21 Preoperative Diagnosis: Left hip proximal femur subtrochanteric femur fracture with displacement and angulation, acute traumatic with osteoporosis Inability to ambulate due to left femur fracture Incapacitating pain due to left femur fracture Postoperative Diagnosis: Same Anesthesia: spinal Pathology: other (Proximal femur reaming sent to pathology) Condition: stable Disposition: PACU Description of Procedure: Preoperative diagnosis: Left hip proximal femur subtrochanteric femur fracture with displacement and angulation, acute traumatic with osteoporosis Inability to ambulate due to left femur fracture Incapacitating pain due to left femur fracture Postoperative diagnosis: Same Procedure: Open reduction internal fixation with intramedullary thu fixation of left subtrochanteric femur fracture Use of fluoroscopic guidance Surgeon: Dr. Jesus Holguin.: TANNER Hinds who is present that the entire the case persistence during positioning dissection exposure placement of hardware and closure Anesthesia: Estimated blood loss: Approximately 300 mL with large congealed clot from the injury washed out as well Components implanted: [employer] long intramedullary nail measuring 11.5 mm x 125 and lag screw measuring 105 with proximal compression screw measuring 100 and a distal locking screw measuring 40 millimeters Disposition: To recovery room in good stable condition Operative indications The patient sustained a injury and suffered a hip fracture at the sub- trochanteric area of her proximal femur which was displaced and angulated. There is significant angulation with the proximal fragment angulated anteriorly and flexed due to the nature of the fracture. We were involved in the case in regard to his hip fracture. The sub-Trochanteric nature with angulation posed significant difficulty as there would be an increased level of difficulty to attempt for reduction given the nature of the muscular attachments. After evaluation it was determined that they would be a candidate for hip internal fixation and stabilization via surgical intervention. This would give them the best chance of mobilization and ambulation. We discussed the range of treatment options from conservative to surgical. They elected proceed with surgical intervention. We answered their questions to the best of our ability healing which they can understand. They signed an informed consent. Operative summary After obtaining informed consent evaluation by anesthesia, preoperative evaluation and clearance for medical service, the patient was identified and prepped [place] area and the surgical site was marked. There brought to the operating room where the given appropriate anesthesia by the anesthesia department in standard fashion without any complications. Once the anesthesia was established we were able to position the patient. The patient was placed on a fracture table with a well-padded perineal post. The operative side on the left was placed in a foot cotto stirrup which was well-padded well molded and placed in gentle in-line traction. The nonoperative leg on the right was placed in a padded stirrup. C-arm was brought in and we performed a closed reduction technique at the hip. With the sub-trochanteric nature of the fracture and the displacement with the maintain muscular attachments it was not possible to get good alignment good position of the intertrochanteric fracture with gentle reduction techniques and traction utilizing the fracture table. I felt it would need an open reduction technique to get appropriate reduction. Once patient was well positioned lower extremity was prepped and draped in normal standard sterile fashion. An appropriate keystone protocol and timeout was completed and were able to proceed with surgery. I established the fracture site with C-arm and made an incision over the lateral aspect of thigh at the level of the fracture at the subtrochanteric area. The fascial layer was split and I was able dissect down to the fracture. It was easily identified and the displaced was palpable with digital outpatient. There is large hematoma which was washed out. Was very difficult to hold reduction. They seem to be a split that extended up the lateral aspect of the proximal fragment as well. I was able to dissect anterior and posterior protecting the soft tissue structures and gain reduction of the fracture adequately. Knowing that this was manageable and then this prepared to make and is established starting point at the tip of the greater trochanter. I made a separate incision proximal to the greater trochanter and then using a guidepin I started at the tip of the greater trochanter at the junction anterior middle third. I was able to advance the guide pin using C-arm guidance I was able to good position of the guidepin at the proximal fragment down to the lesser trochanter. Then using the guide sleeve and the appropriate drill and reamer establish the starting hole with the drill. With this accomplished we again held good reduction at the fracture site and then placed a guide wire through the starting hole across the fracture site and into the femoral shaft and distal femur to the level of the metaphyseal diaphyseal junction distally. With this accomplished we were then be able to start reaming. I held the reduction in good alignment good position and then sequentially reamed from a 9 to a 13 mm reamer. We had good chatter at the isthmus. We had good alignment and good position. All the reamings were sent for pathology. We measured appropriately for the 11 x 1 25 thu and then chose the appropriate length thu. The thu and jig were set up and checked appropriately. Next holding the fracture reduced we placed the thu over the guidewire into the starting hole across the fracture site. We're able to advance the thu over the guidewire into the femoral shaft. We're advancing the thu further into the distal femur. At this point it appeared that the lateral aspect of the drape greater trochanter had a splint which widened as we lowered the thu further into the femur. This caused some displacement of the proximal fragment. We proceeded to seat the thu down to the tip of the greater trochanter and with the distal tip at the distal metaphyseal diaphyseal junction of the femur. There was note of some displacement of the reduction with the split of the greater trochanter. I tried to perform some reduction techniques around the thu. I was able get some reduction at the proximal fragment however they're maintain some anterior angulation. There is also some displacement of the lateral aspect of the greater trochanter. I was not able to get the proximal fragment into a completely reduced position, but did have some reduction to an acceptable alignment. I was not able to further mobilize the proximal fragment and did not feel that a cerclage wire would help our reduction particular given her bone quality and some of the splintering of the fracture site. I felt we may get appropriate fixation with the lag screw and compression screw. The positioning was confirmed on C-arm guidance. With this established we were able to place the appropriate size lag screw after measuring. The guide was set up through the appropriate jig and Lag screw was placed into the femoral neck and head good alignment good position. It was adequately aligned and then I prepared for placing the compression screw. This provided some further reduction at the proximal fragment to the thu. It had good fixation and stability. With this adequately set I turned my attention to the distal locking screw. at the distal femur we used a freehand technique to do a lateral to medial distal locking screw with C-arm guidance. I made a small incision drilled the appropriate screw measured and placed a 40 mm distal locking screw into the static distal locking hole with good alignment and good bony purchase. The patient does have soft bones and this was noted as well. The area was again checked and we had adequate alignment and position of the fracture sites with the thu stabilized proximally and distally. With the thu in place and the fracture stable, although the incision sites were copiously irrigated and suctioned dry. Good hemostasis was maintained. Deep fascial layers were closed with #1 Vicryl. Subcu tissue was closed with 2-0 Vicryl. Subcuticular tissues closed with 3-0 Vicryl. Was are cleaned and dried with dressed with glue and optisite dressing Drapes were broken down, the hip was held in stable position with the post being removed safely once the positioning was stabilized. The patient was then transferred back to their hospital bed being careful to maintain the hip and C- spine alignment and airway. Once stable to patient was transferred back to the postanesthesia care unit to be readmitted for pain control and DVT prophylaxis medical management and monitoring and mobilization we will continue follow patient closely throughout their postoperative course.
--- NOTE | 2021-12-10 11:24 | XR ---
EXAMINATION TYPE: XR femur LT, FL guidance operating room DATE OF EXAM: 12/10/2021 10:57 AM INDICATION: Patient age:Female; 76 years old; Reason for study: L FEMUR FX; Intraoperative/procedural fluoroscopic services were provided. Total fluoroscopy time is 1 minute 33 seconds with a total of #4 submitted images to PACS. Please see the operative/procedural note for fur ther details.
[2021-12-10] MEDS ORDERED: HYDROmorphone 0.5 MG/0.5 ML SYRINGE IVP ONE (11:30)
[2021-12-10] MEDS: SODIUM CHLORIDE 0.9% 1,000 ML IV SCH ×3 (12:02→12:38)
[2021-12-10] MEDS: polyethylene glycoL 3350 17 GM POWD.PACK PO SCH (12:14)
[2021-12-10] MEDS: LEVOTHYROXINE 100 MCG TAB PO SCH (12:20)
[2021-12-10] MEDS: MAGNESIUM OXIDE 400 MG TAB PO SCH (12:20)
[2021-12-10] MEDS: METOPROLOL TARTRATE 50 MG TAB PO SCH ×2 (12:20→20:58)
[2021-12-10] MEDS: HYDROcodone/APAP 5-325MG 1 EACH TAB PO PRN (12:20)
[2021-12-10] MEDS: LACTOBACILLUS ACIDOPH & BULGAR 1 EACH PACKET PO SCH (12:20)
[2021-12-10] MEDS: DICYCLOMINE 10 MG CAP PO SCH ×3 (12:21→20:59)
[2021-12-10] MEDS: PANTOPRAZOLE 40 MG/10 ML VIAL IV SCH (12:21)
[2021-12-10] MEDS: allopurinoL 100 MG TAB PO SCH (12:21)
[2021-12-10] MEDS: MENTHOL-ZINC OXIDE OINT 113 GM TUBE TOPICAL SCH (12:21)
[2021-12-10 13:11] LABS: Basophils # (A) 0.1 k/uL (0-0.2); Basophils % (A) 1 %; Eosinophils # (A) 0.1 k/uL (0-0.7); Eosinophils % (A) 1 %; HCT 31.1 % (34.0-46.0); Hypochromasia Slight; Lymphocytes # (A) 1.3 k/uL (1.0-4.8); Lymphocytes % (A) 15 %; MCH 31.3 pg (25.0-35.0); MCHC 32.3 g/dL (31.0-37.0); MCV 97.1 fL (80.0-100.0); Macrocytosis Slight; Monocytes # (A) 0.5 k/uL (0-1.0); Monocytes % (A) 5 %; Neutrophils # (A) 6.5 k/uL (1.3-7.7); Neutrophils % (A) 76 %; Platelet Count 182 k/uL (150-450); RDW 15.5 % (11.5-15.5); WBC 8.6 k/uL (3.8-10.6)
--- NOTE | 2021-12-10 14:47 | P.PN ---
Subjective HISTORY OF PRESENTING ILLNESS The patient is a 76-year-old female patient with a past medical history significant for permanent pacemaker as well as paroxysmal atrial fibrillation currently not on oral anticoagulation for history of gastrointestinal bleeding and the patient is in process of having the watchman device placement in the next few weeks, presented to the hospital after she fell at home. Apparently the patient tripped and fell at home and she landed on the left side of the body. She developed left femur fracture after she underwent an x-ray and evaluation in the emergency department. She was seen by the orthopedic surgical service and the plan is to pursue with surgery tomorrow. The patient clearly stated that she did not lose her consciousness nor she felt dizzy or lightheaded or any feeling of heart racing or fluttering or any presyncope or syncope. No symptoms of chest pain or chest discomfort or shortness of breath. She underwent also cardiac workup including an EKG showing sinus rhythm with no significant ST or T-wave abnormalities and also she underwent a chest x-ray came in to be unremarkable with her blood work is overall unremarkable besides mild anemia which is chronic and also mildly abnormal troponin which is chronic as well. The patient remains asymptomatic from a cardiovascular standpoint overvi . 12/10 Patient seen and examined. Patient underwent surgery yesterday and had episodes of A. fib with RVR. Initially was attempted on Cardizem drip however blood pressure is borderline with systolics down to the 70s and 80s and therefore was given amiodarone. Patient converted and currently in sinus rhythm. Her home metoprolol 50 mg twice a day has been added back and she is still off the C ardizem 120 mg daily. Denies any chest pain or pressure. Denies any shortness breath. PHYSICAL EXAMINATION Vital signs reviewed. CONSTITUTIONAL: No apparent distress. HEENT: Head is normocephalic. Pupils are equal, round. Sclerae anicteric. Mucous membranes of the mouth are moist. No JVD. No carotid bruit. CHEST EXAMINATION: Lungs are clear to auscultation. No chest wall tenderness is noted on palpation or with deep breathing. HEART EXAMINATION: Regular rate and rhythm. S1, S2 heard. No murmurs, gallops or rub. ABDOMEN: Soft, nontender. Positive bowel sounds. EXTREMITIES: 2+ peripheral pulses, no lower extremity edema and no calf tenderness. NEUROLOGIC EXAMINATION: Patient is awake, alert and oriented x3. Assessment #1 status post fall and left femur fracture #2 paroxysmal atrial fibrillation not on anticoagulation, currently back in sinus #3 history of permanent pacemaker Plan With rate control with metoprolol and likely add back home Cardizem if blood pressures remain stable. May consider rhythm control with amiodarone or other antiarrhythmics given blood pressure borderline. At this time however monitor on metoprolol. Objective - Vital Signs Vital signs: Vital Signs Temp 98.4 F 12/10/21 10:40 Pulse 69 12/10/21 13:42 Resp 16 12/10/21 11:45 BP 112/66 12/10/21 11:45 Pulse Ox 99 12/10/21 11:45 FiO2 Intake & Output 12/09/21 12/10/21 12/10/21 18:59 06:59 18:59 Intake Total 240 27.167 2321 Output Total 0 1650 800 Balance 240 -8296.462 2135 Weight 43.545 kg 43.545 kg Intake: IV 1701 Intake, IV Titration 27.167 Amount Diltiazem 125 mg In 27.167 Sodium Chloride 0.9% 100 ml @ 5 MG/HR 5 mls/hr IV .Q24H [facility] Rx#:[id number] Oral 240 Blood Product 620 Rc As-1 Unit 310 [id number] Rc As-1 Unit 310 [id number] Output: Urine 1650 500 Uretheral ([place]) 1200 Post Void Residual 0 Estimated Blood Loss 300 Other: Voiding Method Indwelling Catheter Indwelling Catheter - Labs CBC & Chem 7: 12/10/21 12:50 12/10/21 07:07 Labs: Abnormal Lab Results - Last 24 Hours (Table) 12/10/21 12/10/21 12/10/21 Range/Units 07:07 07:07 09:01 RBC 2.18 L (3.80-5.40) m/uL Hgb 6.8 L* D (11.4-16.0) gm/dL Hct 21.6 L (34.0-46.0) % RDW 15.7 H (11.5-15.5) % Chloride 108 H (98-107) mmol/L BUN 29 H (7-17) mg/dL Creatinine 1.20 H (0.52-1.04) mg/dL Glucose 131 H (74-99) mg/dL Calcium 8.2 L (8.4-10.2) mg/dL Crossmatch See Detail 12/10/21 Range/Units 12:50 RBC 3.20 L (3.80-5.40) m/uL Hgb 10.0 L D (11.4-16.0) gm/dL Hct 31.1 L (34.0-46.0) % RDW (11.5-15.5) % Chloride (98-107) mmol/L BUN (7-17) mg/dL Creatinine (0.52-1.04) mg/dL Glucose (74-99) mg/dL Calcium (8.4-10.2) mg/dL Crossmatch
[2021-12-10] MEDS: HYDROmorphone 1 MG/ML 1 ML SYRINGE IVP PRN (14:57)
[2021-12-10] MEDS ORDERED: DEXAMETHASONE SOD PHOSPHATE 4 MG/ML 1 ML VIAL IV ONE (16:14)
[2021-12-10] MEDS ORDERED: HYDROmorphone 0.5 MG/0.5 ML SYRINGE IVP PRN (16:14)
[2021-12-10] MEDS ORDERED: ONDANSETRON 4 MG/2 ML VIAL IVP ONE (16:14)
[2021-12-10] MEDS ORDERED: DENOSUMAB 60 MG/ML 1 ML SYRINGE SQ SCH (16:14)
[2021-12-10] MEDS: LACTATED RINGERS 1,000 ML IV SCH (17:10)
[2021-12-10] MEDS: PANTOPRAZOLE 40 MG TABLET PO SCH (17:15)
[2021-12-10] MEDS: HYDROmorphone 0.5 MG/0.5 ML SYRINGE IVP PRN ×2 (17:15→20:59)
[2021-12-10] MEDS: DILTIAZEM 125 MG in SODIUM CHLORIDE 0.9% 100 ML IV SCH (17:16)
--- NOTE | 2021-12-10 17:37 | P.PN ---
Subjective Progress Note Date: 12/10/21 - Reason for Consult Consult date: 12/09/21 Medical management recent fall with left femur fracture - History of Present Illness This is a pleasant 76-year-old female who presented to the emergency department via EMS after falling at home. Patient reports to tripping and falling landing directly on her left hip and immediately being unable to pay her weight or move her leg. Patient denies any dizziness or lightheadedness or syncope prior to the fall and reports no head injury on landing. Patient follows with Dr. Wray in the outpatient setting and has history of atrial fibrillation, coronary artery disease, chest pain/angina, COPD, fibromyalgia, gastroesophageal reflux disease, GI bleed history, hypertension, myocardial infarction, osteoarthritis, hypothyroidism, and severe osteoporosis. Patient with a cardiac history as history of atrial fibrillation and unable to tolerate oral anticoagulant with severe ALLERGIC reactions and has not been on any anticoagulation and follows with Dr. Penn in the outpatient setting. Patient is scheduled tentatively for left hip surgery with orthopedics on 12/10/2021. Patient does have a pacemaker placed and also is scheduled to receive a watchman device on January 04 at [facility]. X-ray in the emergency department shows an oblique displaced subtrochanteric fracture of the left femur with 50% lateral displacement and no dislocation of the hip joint. Chest x-ray shows no heart failure a noted pacemaker and no pleural effusions. EKG reveals sinus rhythm with a rate of 86 12/10/2021 Patient is seen today and is going down for left leg surgical repair for her femur fracture. Patient went into afib with rvr yesterday evening and initially placed on IV cardizem although unable to tolerate for long and having low blood pressures. Patient hemoglobin is 6.8 this am and will order 2 units of PRBC. Recommend evening labs and will follow up after surgery. Patient is afebrile and NPO for the procedure. Patient has converted to sinus and recommend close telemetry monitoring. Resume home cardiac medications. Review Of Systems: Constitutional: No fever, no chills, no night sweats. No weight change. No weakness, fatigue or lethargy. No daytime sleepiness. Lungs: No shortness of breath, cough, no sputum production. No wheezing. Cardiovascular: No chest pain, no lower extremity edema. No palpitations. No paroxysmal nocturnal dyspnea. No orthopnea. No lightheadedness or dizziness. No syncopal episodes. Abdominal: No abdominal pain. No nausea, vomiting. No diarrhea. No constipation. No bloody or tarry stools.. No loss of appetite. Genitourinary: No dysuria, increased frequency, urgency. No urinary retention. Musculoskeletal: No myalgias. No muscle weakness, reports gait dysfunction, reports falling yesterday. No back pain. No neck pain. Reports left hip pain Neurologic: No aphasia. No facial droop. No change in mentation. No head injury. No headache. No paralysis. No paresthesia. PHYSICAL EXAMINATION: GENERAL: The patient is alert and oriented x4, Well developed, well nourished. Thin built HEENT: Pupils are round and equally reacting to light. EOMI. no scleral icterus. No conjunctival pallor. Normocephalic, atraumatic. No pharyngeal erythema. No thyromegaly. CARDIOVASCULAR: S1 and S2 muffled, irregularly irregular PULMONARY: diminished breath sounds bilaterally with no wheezing or rhonchi noted. ABDOMEN: soft. Nontender on exam. non-distended, normoactive bowel sounds. No palpable organomegaly. MUSCULOSKELETAL: No joint swelling or deformity. Left hip tenderness and swelling noted on exam EXTREMITIES: No cyanosis, clubbing, or pedal edema. NEUROLOGICAL: Gross neurological examination did not reveal any focal deficits. Diffuse weakness SKIN: No rashes. Assessment: Mechanical fall with left hip pain Sub-trochanteric fracture of the left femur with 50% lateral displacement noted on x-ray Secondary to the fall status post ORIF intramedullary thu fixation of the left subtrochanteric femur fracture Paroxysmal atrial fibrillation, not on anticoagulation as patient had an ALLERGIC reaction scheduled outpatient in December for a watchman device Atrial fibrillation with RVR placed on IV cardizem Hypotension secondary to cardizem Acute kidney injury, prerenal, improving on gentle IV hydration and will continue for now and follow-up with repeat labs in the a.m. Chronic anemia, now with a drop in hemoglobin to 6.8 this morning and will transfuse 2 units of prbc, awaiting hip surgery today Coronary artery disease COPD, not in exacerbation History of fibromyalgia gastroesophageal reflux disease Hypertension Osteoarthritis Hypothyroidism GI prophylaxis DVT prophylaxis Full code Plan: Recommend to continue with current medications and management per orthopedic services. Patient underwent ORIF intramedullary thu fixation of the left subtrochanteric femur fracture with orthopedics Dr. Lee today. Patient hemoglobin is 6.8 today and will transfuse 2 units of prbc and recommend repeat labs this evening. Recommend close monitoring of H&H. Recommend to resume home cardiac meds and discussing possible oral amiodarone as patient takes cardizem and was having low blood pressures while on the cardizem drip for AFIB rvr in the evening and has since converted. Recommend telemetry monitoring. Recommend PT/OT evaluation after surgery and also DVT prophylaxis. Recommend to resume appropriate home medications. Will continue to follow along with orthopedic surgery with further recommendations to follow. Will order repeat a.m. labs Due to multiple complex medical issues, prognosis is guarded. Thank you for this consultation The impression and plan of care has been dictated by Lauryn Briscoe, nurse practitioner as directed. Dr. Mayra MD I have performed a history and examination and MDM of this patient, discussed the same with the dictator, and agree with the dictator's assessment and plan as written ,documented as a scribe. Based on total visit time, I have performed more than 50% of the visit. Any additional findings or plans will be noted. Objective - Vital Signs Vital signs: Vital Signs Temp 97.9 F 12/10/21 05:02 Pulse 100 12/10/21 08:00 Resp 16 12/10/21 05:02 BP 94/52 12/10/21 06:17 Pulse Ox 99 12/10/21 05:02 FiO2 Intake & Output 12/09/21 12/10/21 12/10/21 18:59 06:59 18:59 Intake Total 240 27.167 1 Output Total 0 1650 Balance 240 -1622.833 1 Weight 43.545 kg Intake: IV 1 Intake, IV Titration 27.167 Amount Diltiazem 125 mg In 27.167 Sodium Chloride 0.9% 100 ml @ 5 MG/HR 5 mls/hr IV .Q24H [facility] Rx#:[id number] Oral 240 Output: Urine 1650 Uretheral (Greene) 1200 Post Void Residual 0 Other: Voiding Method Indwelling Catheter Indwelling Catheter - Labs CBC & Chem 7: 12/10/21 12:50 12/10/21 07:07 Labs: Abnormal Lab Results - Last 24 Hours (Table) 12/09/21 12/09/21 12/10/21 Range/Units 11:25 11:25 07:07 RBC 2.83 L 2.18 L (3.80-5.40) m/uL Hgb 9.0 L D 6.8 L* D (11.4-16.0) gm/dL Hct 28.2 L 21.6 L (34.0-46.0) % RDW 15.7 H (11.5-15.5) % Sodium 136 L (137-145) mmol/L Chloride (98-107) mmol/L BUN 41 H (7-17) mg/dL Creatinine 1.41 H (0.52-1.04) mg/dL Glucose 121 H (74-99) mg/dL Calcium 8.3 L (8.4-10.2) mg/dL 12/10/21 Range/Units 07:07 RBC (3.80-5.40) m/uL Hgb (11.4-16.0) gm/dL Hct (34.0-46.0) % RDW (11.5-15.5) % Sodium (137-145) mmol/L Chloride 108 H (98-107) mmol/L BUN 29 H (7-17) mg/dL Creatinine 1.20 H (0.52-1.04) mg/dL Glucose 131 H (74-99) mg/dL Calcium 8.2 L (8.4-10.2) mg/dL
[2021-12-10 18:05] LABS: HCT 30.1 % (34.0-46.0); HGB 9.6 gm/dL (11.4-16.0); Hypochromasia Moderate; MCH 30.9 pg (25.0-35.0); MCHC 31.9 g/dL (31.0-37.0); MCV 96.8 fL (80.0-100.0); Macrocytosis Slight; Mean Platelet Volume 8.1; Platelet Count 182 k/uL (150-450); RBC 3.11 m/uL (3.80-5.40); RDW 15.6 % (11.5-15.5); WBC 8.8 k/uL (3.8-10.6)
[2021-12-10] MEDS: POTASSIUM CHLORIDE ER 20 MEQ TAB.ER PO SCH (20:57)
[2021-12-10] MEDS: AMITRIPTYLINE HCL 25 MG TAB PO SCH (20:58)
[2021-12-11] MEDS: HYDROmorphone 0.5 MG/0.5 ML SYRINGE IVP PRN ×2 (00:44→05:41)
[2021-12-11] MEDS: ACETAMINOPHEN TAB 325 MG TAB PO PRN ×2 (00:44→05:43)
[2021-12-11] MEDS: SODIUM CHLORIDE 0.9% 1,000 ML IV SCH ×3 (01:13→09:51)
[2021-12-11] MEDS: PANTOPRAZOLE 40 MG TABLET PO SCH ×2 (05:42→15:47)
[2021-12-11] MEDS: LEVOTHYROXINE 100 MCG TAB PO SCH (05:42)
[2021-12-11] MEDS ORDERED: PANTOPRAZOLE 40 MG TABLET PO SCH (07:30)
[2021-12-11] MEDS: MAGNESIUM OXIDE 400 MG TAB PO SCH (07:33)
[2021-12-11] MEDS: ASPIRIN 325 MG TAB PO SCH (07:33)
[2021-12-11] MEDS: polyethylene glycoL 3350 17 GM POWD.PACK PO SCH (07:33)
[2021-12-11] MEDS: POTASSIUM CHLORIDE ER 20 MEQ TAB.ER PO SCH ×2 (07:34→22:13)
[2021-12-11] MEDS: DICYCLOMINE 10 MG CAP PO SCH ×3 (07:34→22:15)
[2021-12-11] MEDS: METOPROLOL TARTRATE 50 MG TAB PO SCH ×2 (07:34→22:13)
[2021-12-11] MEDS: LACTOBACILLUS ACIDOPH & BULGAR 1 EACH PACKET PO SCH (07:34)
[2021-12-11] MEDS: allopurinoL 100 MG TAB PO SCH (07:34)
[2021-12-11] MEDS: SENNOSIDES-DOCUSATE SODIUM 1 EACH TAB PO SCH (07:34)
[2021-12-11 08:03] LABS: Anisocytosis Slight; HCT 28.4 % (34.0-46.0); HGB 9.1 gm/dL (11.4-16.0); Hypochromasia Moderate; MCHC 32.1 g/dL (31.0-37.0); MCV 96.6 fL (80.0-100.0); Macrocytosis Slight; Mean Platelet Volume 8.1; Platelet Count 178 k/uL (150-450); Poikilocytosis Slight; RBC 2.94 m/uL (3.80-5.40); WBC 9.6 k/uL (3.8-10.6)
--- NOTE | 2021-12-11 08:08 | P.PN ---
Subjective Progress Note Date: 12/11/21 Principal diagnosis: Status post left femur ORIF This is a 76 year-old female post left femur ORIF with intramedullary thu fixation. This is post-op day 1. The patient was evaluated while sitting on the side of the bed today. The patient denies nausea, vomiting, abdominal pain, shortness of breath, and chest pain this morning. She states her pain is cont rolled at this time. The patient has not been up with physical therapy but nursing is planning on getting her to the recliner chair this morning. Objective - Vital Signs Vital signs: Vital Signs Temp 97.9 F 12/11/21 07:45 Pulse 83 12/11/21 07:45 Resp 18 12/11/21 07:45 BP 116/62 12/11/21 07:45 Pulse Ox 96 12/11/21 07:45 FiO2 Intake & Output 12/10/21 12/11/21 12/11/21 18:59 06:59 18:59 Intake Total 2321 Output Total 2250 275 Balance 71 -275 Weight 43.545 kg Intake: IV 1701 Blood Product 620 Rc As-1 Unit 310 [id number] Rc As-1 Unit 310 [id number] Output: Urine 1950 275 Uretheral (Greene) 1200 Estimated Blood Loss 300 Other: Voiding Method Indwelling Catheter Indwelling Catheter - Exam The patient does not appear in acute distress. Alert and orientated x3. Dressing is clean dry and intact. Incision appears fine with no erythema or active drainage. Calf is soft and nontender. Good foot and ankle motion withou t difficulty. Sensation and circulatory status is intact. - Labs CBC & Chem 7: 12/10/21 17:38 12/10/21 07:07 Labs: Abnormal Lab Results - Last 24 Hours (Table) 12/10/21 12/10/21 12/10/21 Range/Units 07:07 07:07 09:01 RBC 2.18 L (3.80-5.40) m/uL Hgb 6.8 L* D (11.4-16.0) gm/dL Hct 21.6 L (34.0-46.0) % RDW 15.7 H (11.5-15.5) % Chloride 108 H (98-107) mmol/L BUN 29 H (7-17) mg/dL Creatinine 1.20 H (0.52-1.04) mg/dL Glucose 131 H (74-99) mg/dL Calcium 8.2 L (8.4-10.2) mg/dL Crossmatch See Detail 12/10/21 12/10/21 Range/Units 12:50 17:38 RBC 3.20 L 3.11 L (3.80-5.40) m/uL Hgb 10.0 L D 9.6 L (11.4-16.0) gm/dL Hct 31.1 L 30.1 L (34.0-46.0) % RDW 15.6 H (11.5-15.5) % Chloride (98-107) mmol/L BUN (7-17) mg/dL Creatinine (0.52-1.04) mg/dL Glucose (74-99) mg/dL Calcium (8.4-10.2) mg/dL Crossmatch Assessment and Plan (1) Femur fracture, left Current Visit: Yes Status: Acute Code(s): S72.92XA - UNSP FRACTURE OF LEFT FEMUR, INIT ENCNTR FOR CLOSED FRACTURE SNOMED Code(s): 71483233 (2) Atrial fibrillation with RVR Current Visit: No Status: Acute Code(s): I48.91 - UNSPECIFIED ATRIAL FIBRILLATION SNOMED Code(s): 314026120222364 Plan: 1. Continue pain control, [place] 7.5mg added 2. Anticoagulation with Aspirin--Cardiology or internal medicine may change if needed due to A. fib. 3. Continue physical therapy and ambulation. Non-weightbearing to the left leg. 4. Anticipate discharge to skilled rehab when medically stable.
[2021-12-11 08:17] LABS: Calcium 8.4 mg/dL (8.4-10.2); Potassium 4.5 mmol/L (3.5-5.1)
[2021-12-11] MEDS: MENTHOL-ZINC OXIDE OINT 113 GM TUBE TOPICAL SCH (09:40)
[2021-12-11] MEDS: HYDROmorphone 1 MG/ML 1 ML SYRINGE IVP PRN ×3 (09:52→22:15)
[2021-12-11] MEDS: LACTATED RINGERS 1,000 ML IV SCH (11:16)
--- NOTE | 2021-12-11 12:25 | P.PN ---
Subjective HISTORY OF PRESENTING ILLNESS The patient is a 76-year-old female patient with a past medical history significant for permanent pacemaker as well as paroxysmal atrial fibrillation currently not on oral anticoagulation for history of gastrointestinal bleeding and the patient is in process of having the watchman device placement in the next few weeks, presented to the hospital after she fell at home. Apparently the patient tripped and fell at home and she landed on the left side of the body. She developed left femur fracture after she underwent an x-ray and evaluation in the emergency department. She was seen by the orthopedic surgical service and the plan is to pursue with surgery tomorrow. The patient clearly stated that she did not lose her consciousness nor she felt dizzy or lightheaded or any feeling of heart racing or fluttering or any presyncope or syncope. No symptoms of chest pain or chest discomfort or shortness of breath. She underwent also cardiac workup including an EKG showing sinus rhythm with no significant ST or T-wave abnormalities and also she underwent a chest x-ray came in to be unremarkable with her blood work is overall unremarkable besides mild anemia which is chronic and also mildly abnormal troponin which is chronic as well. The patient remains asymptomatic from a cardiovascular standpoint overvi . 12/10 Patient seen and examined. Patient underwent surgery yesterday and had episodes of A. fib with RVR. Initially was attempted on Cardizem drip however blood pressure is borderline with systolics down to the 70s and 80s and therefore was given amiodarone. Patient converted and currently in sinus rhythm. Her home metoprolol 50 mg twice a day has been added back and she is still off the C ardizem 120 mg daily. Denies any chest pain or pressure. Denies any shortness breath. 12/11 Patient seen and examined. No further episodes of atrial fibrillation. Denies any chest pain or shortness breath. She does have the chronic feeling of something on her chest however unchanged. PHYSICAL EXAMINATION Vital signs reviewed. CONSTITUTIONAL: No apparent distress. HEENT: Head is normocephalic. Pupils are equal, round. Sclerae anicteric. Mucous membranes of the mouth are moist. No JVD. No carotid bruit. CHEST EXAMINATION: Lungs are clear to auscultation. No chest wall tenderness is noted on palpation or with deep breathing. HEART EXAMINATION: Regular rate and rhythm. S1, S2 heard. No murmurs, gallops or rub. ABDOMEN: Soft, nontender. Positive bowel sounds. EXTREMITIES: 2+ peripheral pulses, no lower extremity edema and no calf tenderness. NEUROLOGIC EXAMINATION: Patient is awake, alert and oriented x3. Assessment #1 status post fall and left femur fracture #2 paroxysmal atrial fibrillation not on anticoagulation, currently back in sinus #3 history of permanent pacemaker Plan Patient being worked up outpatient for possible watchman. No anticoagulation at this point. Continue with metoprolol. Okay for discharge home from a cardiac standpoint. Objective - Vital Signs Vital signs: Vital Signs Temp 98 F 12/11/21 11:40 Pulse 80 12/11/21 11:40 Resp 16 12/11/21 11:40 BP 129/65 12/11/21 11:40 Pulse Ox 98 12/11/21 11:40 FiO2 Intake & Output 12/10/21 12/11/21 12/11/21 18:59 06:59 18:59 Intake Total 2321 118 Output Total 2250 275 Balance 71 -275 118 Weight 43.545 kg Intake: IV 1701 Oral 118 Blood Product 620 Rc As-1 Unit 310 [id number] Rc As-1 Unit 310 [id number] Output: Urine 1950 275 Uretheral (Greene) 1200 Estimated Blood Loss 300 Other: Voiding Method Indwelling Catheter Indwelling Catheter Indwelling Catheter - Labs CBC & Chem 7: 12/11/21 07:20 12/11/21 07:20 Labs: Abnormal Lab Results - Last 24 Hours (Table) 12/10/21 12/10/21 12/11/21 Range/Units 12:50 17:38 07:20 RBC 3.20 L 3.11 L 2.94 L (3.80-5.40) m/uL Hgb 10.0 L D 9.6 L 9.1 L (11.4-16.0) gm/dL Hct 31.1 L 30.1 L 28.4 L (34.0-46.0) % RDW 15.6 H 16.0 H (11.5-15.5) % Chloride (98-107) mmol/L Glucose (74-99) mg/dL 12/11/21 Range/Units 07:20 RBC (3.80-5.40) m/uL Hgb (11.4-16.0) gm/dL Hct (34.0-46.0) % RDW (11.5-15.5) % Chloride 114 H (98-107) mmol/L Glucose 136 H (74-99) mg/dL
[2021-12-11] MEDS: DILTIAZEM 125 MG in SODIUM CHLORIDE 0.9% 100 ML IV SCH (15:45)
--- NOTE | 2021-12-11 18:20 | P.PN ---
Subjective Progress Note Date: 12/11/21 - Reason for Consult Consult date: 12/09/21 Medical management recent fall with left femur fracture - History of Present Illness This is a pleasant 76-year-old female who presented to the emergency department via EMS after falling at home. Patient reports to tripping and falling landing directly on her left hip and immediately being unable to pay her weight or move her leg. Patient denies any dizziness or lightheadedness or syncope prior to the fall and reports no head injury on landing. Patient follows with Dr. Wray in the outpatient setting and has history of atrial fibrillation, coronary artery disease, chest pain/angina, COPD, fibromyalgia, gastroesophageal reflux disease, GI bleed history, hypertension, myocardial infarction, osteoarthritis, hypothyroidism, and severe osteoporosis. Patient with a cardiac history as history of atrial fibrillation and unable to tolerate oral anticoagulant with severe ALLERGIC reactions and has not been on any anticoagulation and follows with Dr. Penn in the outpatient setting. Patient is scheduled tentatively for left hip surgery with orthopedics on 12/10/2021. Patient does have a pacemaker placed and also is scheduled to receive a watchman device on January 04 at [facility]. X-ray in the emergency department shows an oblique displaced subtrochanteric fracture of the left femur with 50% lateral displacement and no dislocation of the hip joint. Chest x-ray shows no heart failure a noted pacemaker and no pleural effusions. EKG reveals sinus rhythm with a rate of 86 12/10/2021 Patient is seen today and is going down for left leg surgical repair for her femur fracture. Patient went into afib with rvr yesterday evening and initially placed on IV cardizem although unable to tolerate for long and having low blood pressures. Patient hemoglobin is 6.8 this am and will order 2 units of PRBC. Recommend evening labs and will follow up after surgery. Patient is afebrile and NPO for the procedure. Patient has converted to sinus and recommend close telemetry monitoring. Resume home cardiac medications. 12/11/2021 Patient is seen this morning and reports she was able to sit at the side of the bed. PT/OT to evaluate in the am. Patient is non-weightbearing to the left lower extremity. Patient on iv hydration and recommend to discontinue as patient is eating and drinking. Patient reports some occasional nausea with no vomiting. Patient is passing gas with positive bowel sounds noted. Patient is continued with indwelling alvarado catheter for now. Plan is for ecf for continued PT/OT therapy. Patient is afebrile and denies chest pain or palpitations. Currently sinus rhythm. Orthopedics working on ECF. Will add incentive spirometer and encourage to use at least 10 times per hour while awake. Also recommend compression stockings and increased activity as tolerated. Review Of Systems: Constitutional: No fever, no chills, no night sweats. No weight change. No weakness, fatigue or lethargy. No daytime sleepiness. Lungs: reports occasional shortness of breath which she states has been for quite some time, cough, no sputum production. No wheezing. Cardiovascular: No chest pain, no lower extremity edema. No palpitations. No paroxysmal nocturnal dyspnea. No orthopnea. No lightheadedness or dizziness. No syncopal episodes. Abdominal: No abdominal pain. No nausea, vomiting. No diarrhea. No constipation. No bloody or tarry stools.. No loss of appetite. reports passing gas, no bm yet Genitourinary: No dysuria, increased frequency, urgency. No urinary retention. Musculoskeletal: No myalgias. No muscle weakness, reports gait dysfunction. No back pain. No neck pain. Reports left hip pain Neurologic: No aphasia. No facial droop. No change in mentation. No head injury. No headache. No paralysis. No paresthesia. PHYSICAL EXAMINATION: GENERAL: The patient is alert and oriented x4, Well developed, well nourished. Thin built HEENT: Pupils are round and equally reacting to light. EOMI. no scleral icterus. No conjunctival pallor. Normocephalic, atraumatic. No pharyngeal erythema. No thyromegaly. CARDIOVASCULAR: S1 and S2 muffled, currently sinus PULMONARY: diminished breath sounds bilaterally with no wheezing or rhonchi noted. ABDOMEN: soft. Nontender on exam. non-distended, normoactive bowel sounds. No palpable organomegaly. MUSCULOSKELETAL: No joint swelling or deformity. Left hip surgical site is dry and intact EXTREMITIES: No cyanosis, clubbing, or pedal edema. NEUROLOGICAL: Gross neurological examination did not reveal any focal deficits. Diffuse weakness SKIN: No rashes. Assessment: Mechanical fall with left hip pain Sub-trochanteric fracture of the left femur with 50% lateral displacement noted on x-ray Secondary to the fall status post ORIF intramedullary thu fixation of the left subtrochanteric femur fracture Paroxysmal atrial fibrillation, not on anticoagulation as patient had an AL LERGIC reaction scheduled outpatient in December for a watchman device Atrial fibrillation with RVR placed on IV cardizem, currently converted to sinus and rate controlled Hypotension secondary to cardizem, improved Acute kidney injury, prerenal, improved Chronic anemia, with a drop in hemoglobin to 6.8 pre surgical and given 2 units now 9.1 today no active bleeding noted Coronary artery disease COPD, not in exacerbation History of fibromyalgia gastroesophageal reflux disease Hypertension Osteoarthritis Hypothyroidism GI prophylaxis DVT prophylaxis Full code Plan: Recommend to continue with current medications and management per orthopedic services. Patient underwent ORIF intramedullary thu fixation of the left subtrochanteric femur fracture with orthopedics Dr. Lee and is post op day 1. Patient hemoglobin is 9.1 today post 2 units of prbc yesterday and recommend repeat labs in the am. Recommend to resume home cardiac meds. Recommend telemetry monitoring. Recommend PT/OT evaluation in am and also DVT prophylaxis with scds. Recommend compression stockings. Recommend to resume appropriate home medications. Will continue to follow along with orthopedic surgery with further recommendations to follow. Ortho planning for ecf after PT evaluation and patient is agreeable. Due to multiple complex medical issues, prognosis is guarded. Thank you for this consultation The impression and plan of care has been dictated by Lauryn Briscoe, nurse practitioner as directed. Dr. Mayra MD I have performed a history and examination and MDM of this patient, discussed the same with the dictator, and agree with the dictator's assessment and plan as written ,documented as a scribe. Based on total visit time, I have performed more than 50% of the visit. Any additional findings or plans will be noted. Objective - Vital Signs Vital signs: Vital Signs Temp 97.9 F 12/11/21 07:45 Pulse 65 12/11/21 08:00 Resp 18 12/11/21 07:45 BP 116/62 12/11/21 07:45 Pulse Ox 96 12/11/21 07:45 FiO2 Intake & Output 12/10/21 12/11/21 12/11/21 18:59 06:59 18:59 Intake Total 2321 118 Output Total 2250 275 Balance 71 -275 118 Weight 43.545 kg Intake: IV 1701 Oral 118 Blood Product 620 Rc As-1 Unit 310 [id number] Rc As-1 Unit 310 [id number] Output: Urine 1950 275 Uretheral (Alvarado) 1200 Estimated Blood Loss 300 Other: Voiding Method Indwelling Catheter Indwelling Catheter Indwelling Catheter - Labs CBC & Chem 7: 12/11/21 07:20 12/11/21 07:20 Labs: Abnormal Lab Results - Last 24 Hours (Table) 12/10/21 12/10/21 12/11/21 Range/Units 12:50 17:38 07:20 RBC 3.20 L 3.11 L 2.94 L (3.80-5.40) m/uL Hgb 10.0 L D 9.6 L 9.1 L (11.4-16.0) gm/dL Hct 31.1 L 30.1 L 28.4 L (34.0-46.0) % RDW 15.6 H 16.0 H (11.5-15.5) % Chloride (98-107) mmol/L Glucose (74-99) mg/dL 12/11/21 Range/Units 07:20 RBC (3.80-5.40) m/uL Hgb (11.4-16.0) gm/dL Hct (34.0-46.0) % RDW (11.5-15.5) % Chloride 114 H (98-107) mmol/L Glucose 136 H (74-99) mg/dL
[2021-12-11] MEDS: AMITRIPTYLINE HCL 25 MG TAB PO SCH (22:15)
[2021-12-11] MEDS: HYDROcodone/APAP 5-325MG 1 EACH TAB PO PRN (22:32)
[2021-12-12] MEDS: HYDROmorphone 0.5 MG/0.5 ML SYRINGE IVP PRN ×3 (03:27→17:58)
[2021-12-12] MEDS: LEVOTHYROXINE 100 MCG TAB PO SCH (06:30)
[2021-12-12] MEDS: PANTOPRAZOLE 40 MG TABLET PO SCH ×2 (06:30→17:03)
[2021-12-12 08:08] LABS: Anisocytosis Slight; HCT 26.8 % (34.0-46.0); HGB 8.6 gm/dL (11.4-16.0); Hypochromasia Slight; MCH 31.1 pg (25.0-35.0); MCHC 32.1 g/dL (31.0-37.0); Macrocytosis Slight; Mean Platelet Volume 8.3; Platelet Count 204 k/uL (150-450); RBC 2.77 m/uL (3.80-5.40); RDW 16.6 % (11.5-15.5)
[2021-12-12] MEDS: ASPIRIN 325 MG TAB PO SCH (08:10)
[2021-12-12] MEDS: HYDROmorphone 1 MG/ML 1 ML SYRINGE IVP PRN (08:10)
[2021-12-12] MEDS: MAGNESIUM OXIDE 400 MG TAB PO SCH (08:10)
[2021-12-12] MEDS: METOPROLOL TARTRATE 50 MG TAB PO SCH ×2 (08:10→21:35)
[2021-12-12] MEDS: allopurinoL 100 MG TAB PO SCH (08:11)
[2021-12-12] MEDS: POTASSIUM CHLORIDE ER 20 MEQ TAB.ER PO SCH ×2 (08:11→21:35)
[2021-12-12] MEDS: SENNOSIDES-DOCUSATE SODIUM 1 EACH TAB PO SCH (08:11)
[2021-12-12] MEDS: DICYCLOMINE 10 MG CAP PO SCH ×3 (08:11→21:35)
[2021-12-12] MEDS: HYDROcodone/APAP 7.5-325MG 1 EACH TAB PO PRN ×4 (09:16→21:35)
[2021-12-12] MEDS: polyethylene glycoL 3350 17 GM POWD.PACK PO SCH (09:50)
[2021-12-12] MEDS: MENTHOL-ZINC OXIDE OINT 113 GM TUBE TOPICAL SCH (09:50)
[2021-12-12] MEDS: LACTOBACILLUS ACIDOPH & BULGAR 1 EACH PACKET PO SCH (09:50)
[2021-12-12 12:34] LABS: Band Neutrophils % 1 %; Eosinophils # (M) 0.31 k/uL (0-0.7); Lymphocytes # (M) 2.04 k/uL (1.0-4.8); Monocytes # (M) 0.61 k/uL (0-1.0); Myelocytes % 1 %; Neutrophils % (M) 71 %; Nucleated Red Blood Cells 4 /100 WBC (0-0); Polychromasia Present; Total Cells Counted 200; WBC 10.2 k/uL (3.8-10.6)
[2021-12-12] MEDS ORDERED: SENNOSIDES-DOCUSATE SODIUM 1 EACH TAB PO PRN (12:53)
--- NOTE | 2021-12-12 12:54 | P.PN ---
Progress Note - Text Progress Note Date: 12/12/21 Orthopedics: History of present illness: Patient is a very pleasant 76-year-old female who is seen and examined at bedside with her family present. She is status post left hip ORIF with intramedullary nail fixation for left subtrochanteric hip fracture. She does continue to have some pain at her left hip but states her pain is adequately controlled. Dressings remained clean, dry, and intact over the left hip. She is remain strict nonweightbearing on the left lower extremity. She is working with physical therapy for transfers. She is planning to be discharged to a rehabilitation facility when approved. This may be planned for Sunday or of this week. She has been cleared for discharge from a cardiology standpoint. She continues be seen and examined by medicine. She does admit to some chronic difficulty with constipation over the course of her life. She has not had a bowel movement since last . She is not currently complaining of abdominal pain. She is currently sitting in a recliner. Physical Exam Intramedullary Rodding for Subtrochanteric Fracture: Status post surgical day number 2 Patient is examined sitting in a bedside chair Patient is awake and alert, and oriented 3 Vital signs stable Good chest excursion with deep inspiration and expiration Abdomen soft nontender No signs or symptoms of DVT; no calf pain Lower extremity cuffs in place bilaterally Dressing of the left hip is clean, dry, and intact; no erythema, purulence, or signs of infection Pain with palpation over the left anterior thigh Full range of motion of ankles bilaterally Dorsiflexion, plantarflexion, and extensor hallucis longus positive sustained bilaterally Neurovascularly intact bilateral lower extremities Capillary refill less than 2 seconds bilateral lower extremities Greene catheter intact Assessment: Status post left hip ORIF with intramedullary nail fixation for left subtrochanteric hip fracture Left hip pain Status post fall History of atrial fibrillation with unable to tolerate anticoagulation medication due to severe ALLERGIC reaction Coronary artery disease Severe osteoporosis COPD Fibromyalgia Gastroesophageal reflux disease History of GI bleed Hypertension History myocardial infarction Hypothyroidism Chronic constipation Plan: 1. Patient to remain strict nonweightbearing on the left lower extremity; patient may work with physical therapy to increase mobility and ambulation 2. Keep dressing over the left hip clean, dry, and intact 3. Discontinue Greene catheter when patient is able to increase mobility and ambulation 4. Continue pain control with oral [place] and IV Dilaudid as needed for pain control 5. Continue with anticoagulation therapy with aspirin 325 mg daily 6. Medicine to continue following the patient for their other medical diagnosis 7. Patient has been cleared for discharge from a cardiac standpoint; they may plan for watchman in the outpatient setting 8. We'll continue to follow the patient closely; depending on the patient's progress, we may plan for discharge as early as tomorrow, 12/13/2021, to a rehabilitation facility 9. Patient can follow-up with Nate Yepez PA-C or Dr. Odell Lee at [facility] in 2-3 weeks following discharge
[2021-12-12] MEDS: ACETAMINOPHEN TAB 500 MG TAB PO SCH (17:58)
[2021-12-12] MEDS: AMITRIPTYLINE HCL 25 MG TAB PO SCH (21:34)
[2021-12-13] MEDS: ACETAMINOPHEN TAB 500 MG TAB PO SCH ×4 (00:05→19:01)
[2021-12-13] MEDS: HYDROcodone/APAP 7.5-325MG 1 EACH TAB PO PRN ×5 (03:04→20:35)
--- NOTE | 2021-12-13 03:05 | P.PN ---
Subjective Progress Note Date: 12/13/21 - Reason for Consult Consult date: 12/09/21 Medical management recent fall with left femur fracture - History of Present Illness This is a pleasant 76-year-old female who presented to the emergency department via EMS after falling at home. Patient reports to tripping and falling landing directly on her left hip and immediately being unable to pay her weight or move her leg. Patient denies any dizziness or lightheadedness or syncope prior to the fall and reports no head injury on landing. Patient follows with Dr. Wray in the outpatient setting and has history of atrial fibrillation, coronary artery disease, chest pain/angina, COPD, fibromyalgia, gastroesophageal reflux disease, GI bleed history, hypertension, myocardial infarction, osteoarthritis, hypothyroidism, and severe osteoporosis. Patient with a cardiac history as history of atrial fibrillation and unable to tolerate oral anticoagulant with severe ALLERGIC reactions and has not been on any anticoagulation and follows with Dr. Penn in the outpatient setting. Patient is scheduled tentatively for left hip surgery with orthopedics on 12/10/2021. Patient does have a pacemaker placed and also is scheduled to receive a watchman device on January 04 at [facility]. X-ray in the emergency department shows an oblique displaced subtrochanteric fracture of the left femur with 50% lateral displacement and no dislocation of the hip joint. Chest x-ray shows no heart failure a noted pacemaker and no pleural effusions. EKG reveals sinus rhythm with a rate of 86 12/10/2021 Patient is seen today and is going down for left leg surgical repair for her femur fracture. Patient went into afib with rvr yesterday evening and initially placed on IV cardizem although unable to tolerate for long and having low blood pressures. Patient hemoglobin is 6.8 this am and will order 2 units of PRBC. Recommend evening labs and will follow up after surgery. Patient is afebrile and NPO for the procedure. Patient has converted to sinus and recommend close telemetry monitoring. Resume home cardiac medications. 12/11/2021 Patient is seen this morning and reports she was able to sit at the side of the bed. PT/OT to evaluate in the am. Patient is non-weightbearing to the left lower extremity. Patient on iv hydration and recommend to discontinue as patient is eating and drinking. Patient reports some occasional nausea with no vomiting. Patient is passing gas with positive bowel sounds noted. Patient is continued with indwelling alvarado catheter for now. Plan is for ecf for continued PT/OT therapy. Patient is afebrile and denies chest pain or palpitations. Currently sinus rhythm. Orthopedics working on ECF. Will add incentive spirometer and encourage to use at least 10 times per hour while awake. Also recommend compression stockings and increased activity as tolerated. 12/12/2021 Patient is seen today with multiple family members at the bedside. Patient is sitting up in the chair and able to work with physical therapy. Orthopedics working on discharge planning to ECF. Patient is continuing to request IV pain medications and encouraged patient to limit the use of IV dilaudid and continue with oral pain medications. Recommend scheduled tylenol. Patient is afebrile and denies chest pain or shortness of breath. Patient is tolerating diet with no rep orts of nausea or vomiting noted. Encouraged incentive spirometer use and increased activity as tolerated. Patient is to be non-weightbearing to the left lower extremity per ortho. Encouraged oral intake. Review Of Systems: Constitutional: No fever, no chills, no night sweats. No weight change. No weakness, fatigue or lethargy. No daytime sleepiness. Lungs: reports occasional shortness of breath which she states has been for quite some time, cough, no sputum production. No wheezing. Cardiovascular: No chest pain, no lower extremity edema. No palpitations. No paroxysmal nocturnal dyspnea. No orthopnea. No lightheadedness or dizziness. No syncopal episodes. Abdominal: No abdominal pain. No nausea, vomiting. No diarrhea. No constipation. No bloody or tarry stools.. No loss of appetite. Genitourinary: No dysuria, increased frequency, urgency. No urinary retention. Musculoskeletal: No myalgias. No muscle weakness, reports gait dysfunction. No back pain. No neck pain. Reports continued left hip pain Neurologic: No aphasia. No facial droop. No change in mentation. No head injury. No headache. No paralysis. No paresthesia. PHYSICAL EXAMINATION: GENERAL: The patient is alert and oriented x4, Well developed, well nourished. Thin built HEENT: Pupils are round and equally reacting to light. EOMI. no scleral icterus. No conjunctival pallor. Normocephalic, atraumatic. No pharyngeal erythema. No thyromegaly. CARDIOVASCULAR: S1 and S2 muffled, currently sinus PULMONARY: diminished breath sounds bilaterally with no wheezing or rhonchi noted. ABDOMEN: soft. Nontender on exam. non-distended, normoactive bowel sounds. No palpable organomegaly. MUSCULOSKELETAL: No joint swelling or deformity. Left hip surgical site is dry and intact EXTREMITIES: No cyanosis, clubbing, or pedal edema. NEUROLOGICAL: Gross neurological examination did not reveal any focal deficits. Diffuse weakness SKIN: No rashes. Assessment: Mechanical fall with left hip pain Sub-trochanteric fracture of the left femur with 50% lateral displacement noted on x-ray Secondary to the fall status post ORIF intramedullary thu fixation of the left subtrochanteric femur fracture Paroxysmal atrial fibrillation, not on anticoagulation as patient had an ALLERGIC reaction scheduled outpatient in December for a watchman device Atrial fibrillation with RVR , currently converted to sinus and rate controlled Hypotension secondary to cardizem, improved Acute kidney injury, prerenal, improved Chronic anemia Coronary artery disease COPD, not in exacerbation History of fibromyalgia gastroesophageal reflux disease Hypertension Osteoarthritis Hypothyroidism GI prophylaxis DVT prophylaxis Full code Plan: Recommend to continue with current medications and management per orthopedic s ervices. Patient underwent ORIF intramedullary thu fixation of the left subtrochanteric femur fracture with orthopedics Dr. Lee and is awaiting to work with PT/OT therapy. Planning for ecf for continued strength and mobility. Patient hemoglobin is 8.6 today with no active bleeding noted. Resume home cardiac meds. Recommend telemetry monitoring. Recommend compression stockings. Recommend to resume appropriate home medications. Will continue to follow along with orthopedic surgery with further recommendations to follow. Ortho planning for ecf after PT evaluation and patient is agreeable. Due to multiple complex medical issues, prognosis is guarded. Thank you for this consultation The impression and plan of care has been dictated by Lauryn Briscoe, nurse practitioner as directed. Dr. Jose MD I have performed a history and examination and MDM of this patient, discussed the same with the dictator, and agree with the dictator's assessment and plan as written ,documented as a scribe. Based on total visit time, I have performed more than 50% of the visit. Any additional findings or plans will be noted. Objective - Vital Signs Vital signs: Vital Signs Temp 98.5 F 12/12/21 04:00 Pulse 81 12/12/21 08:00 Resp 18 12/12/21 08:00 BP 128/81 12/12/21 08:00 Pulse Ox 94 L 12/12/21 08:00 FiO2 Intake & Output 12/11/21 12/12/21 12/12/21 18:59 06:59 18:59 Intake Total 118 Output Total 1350 925 Balance -1232 925 Intake: Oral 118 Output: Urine 1350 925 Other: Voiding Method Indwelling Catheter Indwelling Catheter - Labs CBC & Chem 7: 12/12/21 06:53 12/11/21 07:20 Labs: Abnormal Lab Results - Last 24 Hours (Table) 12/12/21 Range/Units 06:53 RBC 2.77 L (3.80-5.40) m/uL Hgb 8.6 L (11.4-16.0) gm/dL Hct 26.8 L (34.0-46.0) % RDW 16.6 H (11.5-15.5) %
[2021-12-13] MEDS: LEVOTHYROXINE 100 MCG TAB PO SCH (06:34)
[2021-12-13] MEDS: PANTOPRAZOLE 40 MG TABLET PO SCH ×2 (06:34→16:58)
[2021-12-13] MEDS: HYDROmorphone 0.5 MG/0.5 ML SYRINGE IVP PRN ×4 (08:22→22:56)
[2021-12-13] MEDS: MAGNESIUM OXIDE 400 MG TAB PO SCH (08:47)
[2021-12-13] MEDS: POTASSIUM CHLORIDE ER 20 MEQ TAB.ER PO SCH ×2 (08:47→20:35)
[2021-12-13] MEDS: allopurinoL 100 MG TAB PO SCH (08:47)
[2021-12-13] MEDS: DICYCLOMINE 10 MG CAP PO SCH ×3 (08:47→20:35)
[2021-12-13] MEDS: METOPROLOL TARTRATE 50 MG TAB PO SCH ×2 (08:47→20:34)
[2021-12-13] MEDS: LACTOBACILLUS ACIDOPH & BULGAR 1 EACH PACKET PO SCH (08:50)
[2021-12-13] MEDS: ASPIRIN 325 MG TAB PO SCH (08:50)
[2021-12-13] MEDS: MENTHOL-ZINC OXIDE OINT 113 GM TUBE TOPICAL SCH (08:51)
--- NOTE | 2021-12-13 08:53 | P.PN ---
Progress Note - Text Progress Note Date: 12/13/21 Orthopedics: History of present illness: Patient is a very pleasant 76-year-old female who is seen and examined at bedside. She is status post left hip ORIF with intramedullary nail fixation for left subtrochanteric hip fracture. She does continue to have some pain at her left hip. Patient is tearful at the bedside this morning. She is currently sitting on a bedside commode. Her Greene catheter had been discontinued this morning. Patient states she had difficulty with pain control overnight. Nursing states it was reported patient had difficulty with pain control overnight as well. She is still requiring IV Dilaudid for pain control. She is known to have sustained a left subtrochanteric hip fracture status post fall. She states she fell on her left. She states since the fall she has been experiencing worsening right-sided rib pain. Initially she did not think anything of it and thought this pain would go away but states it is progressively worsened each day. She denies any midthoracic pain or specific radiculopathy of the thoracic spine. She states her pain is significant over the right lateral ribs and exacerbated with coughing and deep breathing. She states she has had difficulty taking a deep breath due to this pain. Dressings remained clean, dry, and intact over the left hip. She is remain strict nonweightbearing on the left lower extremity. She is working with physical therapy for transfers. She is planning to be discharged to a rehabilitation facility when approved. Nursing states case management is still working on approval. She has been cleared for discharge from a cardiology standpoint. She continues be seen and examined by medicine. She does admit to some chronic difficulty with constipation over the course of her life. She has not had a bowel movement since last . She is not currently complaining of abdominal pain. Physical Exam Intramedullary Rodding for Subtrochanteric Fracture: Status post surgical day number 3 Patient is examined sitting on a bedside commode Patient is awake and alert, and oriented 3 Vital signs stable Good chest excursion with deep inspiration and expiration Significant pain with palpation of the right lateral ribs No pain with palpation along the midline of the thoracic spine Increased thoracic kyphosis Evidence of thoracic scoliosis Evidence of multiple well-healing wounds around the thoracic spine following previous ALLERGIC reaction to medication No signs or symptoms of DVT; no calf pain Lower extremity cuffs in place bilaterally Dressing of the left hip is clean, dry, and intact; no erythema, purulence, or signs of infection Pain with palpation over the left anterior thigh Full range of motion of ankles bilaterally Dorsiflexion, plantarflexion, and extensor hallucis longus positive sustained bilaterally Neurovascularly intact bilateral lower extremities Capillary refill less than 2 seconds bilateral lower extremities Greene catheter has been discontinued Assessment: Status post left hip ORIF with intramedullary nail fixation for left subtrochanteric hip fracture Left hip pain Status post fall Right-sided rib pain Difficulty taking a deep breath due to exacerbating right-sided rib pain History of atrial fibrillation with unable to tolerate anticoagulation medication due to severe ALLERGIC reaction Coronary artery disease Severe osteoporosis COPD Fibromyalgia Gastroesophageal reflux disease History of GI bleed Hypertension History myocardial infarction Hypothyroidism Chronic constipation Plan: 1. Patient to remain strict nonweightbearing on the left lower extremity; patient may work with physical therapy to increase mobility and ambulation 2. Keep dressing over the left hip clean, dry, and intact 3. She has been experiencing worsening right sided rib pain and has had difficulty taking a deep breath due to this pain. Her pain is also exacerbated with coughing. She denies specific injury to her right ribs when she previously fell to the left but states the pain has been worsening daily. At this time we will plan to obtain x-ray imaging of the right ribs along with chest AP x-rays for further evaluation. 4. Continue pain control with oral [place] and IV Dilaudid as needed for pain control 5. Continue with anticoagulation therapy with aspirin 325 mg daily 6. Medicine to continue following the patient for their other medical diagnosis including right-sided rib pain with deep breathing; would recommend reviewing chest x-ray 7. Patient has been cleared for discharge from a cardiac standpoint; they may plan for watchman in the outpatient setting 8. We'll continue to follow the patient closely; she has had difficulty with pain control overnight and feels worse this morning as compared to yesterday. She continues to require IV Dilaudid. She does not feel stable enough for discharge today. Also, she has not been approved through her insurance for discharge to [facility]. Case management is still working on her approval. We did discuss with plan to further evaluate her right-sided rib pain and will also try to continue with medications for pain control. If there are no acute findings in regards to her right ribs, her pain is better controlled with oral medications, we are able to discontinue IV pain medications, she is approved through her insurance for discharge to [facility], and she is cleared by medicine, we will plan for discharge as early as tomorrow, 12/14/2021 9. Patient can follow-up with Nate Yepez PA-C or Dr. Odell Lee at [facility] in 2-3 weeks following discharge
--- NOTE | 2021-12-13 10:12 | XR ---
EXAMINATION TYPE: XR ribs RT w pa chest xray DATE OF EXAM: 12/13/2021 9:21 AM INDICATION: Patient age:Female; 76 years old; Reason for study: Right-sided rib pain; increased pain w/breathing; COMPARISON: 12/09/2021 TECHNIQUE: Frontal and oblique views of the right ribs with frontal chest radiograph. FINDINGS: No displaced rib fractures are identified. Cholecystectomy clips are present. Overall, the lungs are clear. The cardiac silhouette is normal in size. The remaining osseous structures are in tact. Multilevel disc degeneration changes with kyphoplasty changes noted. IMPRESSION RIBS: No evidence of displaced rib fracture.
[2021-12-13] MEDS ORDERED: IPRATROPIUM-ALBUTEROL 3 ML NEB INHALATION PRN (10:36)
[2021-12-13] MEDS: polyethylene glycoL 3350 17 GM POWD.PACK PO SCH (12:10)
[2021-12-13] MEDS: IPRATROPIUM-ALBUTEROL 3 ML NEB INHALATION SCH ×2 (12:25→20:20)
--- NOTE | 2021-12-13 16:30 | US ---
EXAMINATION TYPE: US venous doppler duplex LE BI DATE OF EXAM: 12/13/2021 4:00 PM COMPARISON: NONE CLINICAL HISTORY: elevated d dimer, recent surgery. SIDE PERFORMED: Bilateral TECHNIQUE: The lower extremity deep venous system is examined utilizing real time linear array sonog guillermina with graded compression, doppler sonography and color-flow sonography. VESSELS IMAGED: Common Femoral Vein Deep Femoral Vein Greater Saphenous Vein * Femoral Vein Popliteal Vein Small Saphenous Vein * Proximal Calf Veins (* superficial vessels) Grayscale, color doppler, spectral doppler imaging performed of the deep veins of the lower extremiti es. Right Leg: Negative for DVT Left Leg: Negative for DVT as seen. Popliteal fossa shows heterogeneous hypoechoic focus possibly related to patient's trauma, unable to visualize popliteal vein. Patient unable to move due to severe femur fracture. IMPRESSION: No evident deep venous thrombosis within the limitations of the exam.
--- NOTE | 2021-12-13 16:35 | CT ---
EXAMINATION TYPE: CT chest angio for PE CT DLP: 159.1 mGycm, Automated exposure control for dose reduction was used. DATE OF EXAM: 12/13/2021 4:24 PM COMPARISON: CT abdomen pelvis 01/09/2020. CLINICAL INDICATION:Female, 76 years old with history of elevated DD,SOB; elevated d-dimer, SOB TECHNIQUE/CONTRAST: CTA scan of the thorax is performed with IV Contrast, patient injected with 60cc mL of Isovue 370, pu lmonary embolism protocol. MIP images are created and reviewed. FINDINGS: Pulmonary Artery: There is no evidence for a filling defect within the pulmonary vasculature to sugge st acute pulmonary embolism. The pulmonary artery is of normal size. Reflux of contrast into the IVC . Lungs/Pleura: No pneumothorax. Trace right pleural effusion with associated atelectasis. Left lower l obe minimal atelectasis. Biapical scarring. Patchy groundglass opacities within the medial anterior a nd lateral posterior left upper lobe. No concerning pulmonary nodule. Airway: Large airways are patent. Heart: The heart is mildly enlarged for size. No pericardial effusion. Coronary arterial calcificatio ns. Vasculature: No evidence of aortic aneurysm. Dual lead left chest wall cardiac pacemaking device iden tified. Mediastinum: No gross evidence of adenopathy. Musculoskeletal: No acute osseous abnormalities. Scoliotic curvature of the visualized spine. Increas ed thoracic kyphosis with anterior chronic appearing midthoracic spine wedge compression deformities. Vertebral augmentation of the T8 vertebral body. Soft Tissues: Unremarkable. Lower neck: No significant findings. Upper Abdomen: No significant findings. IMPRESSION: 1. No evidence of pulmonary embolism. 2. Few patchy groundglass opacities within the left upper lobe which may represent an infectious proc ess. 3. Trace right pleural effusion with associated atelectasis.
[2021-12-13] MEDS: LACTULOSE 20 GM/30 ML CUP PO SCH ×2 (16:58→20:27)
[2021-12-13] MEDS: AMITRIPTYLINE HCL 25 MG TAB PO SCH (20:34)
[2021-12-13] MEDS ORDERED: LACTULOSE 20 GM/30 ML CUP PO PRN (22:11)
[2021-12-14] MEDS: ACETAMINOPHEN TAB 500 MG TAB PO SCH ×5 (00:39→23:07)
[2021-12-14] MEDS: HYDROcodone/APAP 7.5-325MG 1 EACH TAB PO PRN ×3 (02:26→20:09)
--- NOTE | 2021-12-14 04:02 | P.PN ---
Subjective Progress Note Date: 12/13/21 - Reason for Consult Consult date: 12/09/21 Medical management recent fall with left femur fracture - History of Present Illness This is a pleasant 76-year-old female who presented to the emergency department via EMS after falling at home. Patient reports to tripping and falling landing directly on her left hip and immediately being unable to pay her weight or move her leg. Patient denies any dizziness or lightheadedness or syncope prior to the fall and reports no head injury on landing. Patient follows with Dr. Wray in the outpatient setting and has history of atrial fibrillation, coronary artery disease, chest pain/angina, COPD, fibromyalgia, gastroesophageal reflux disease, GI bleed history, hypertension, myocardial infarction, osteoarthritis, hypothyroidism, and severe osteoporosis. Patient with a cardiac history as history of atrial fibrillation and unable to tolerate oral anticoagulant with severe ALLERGIC reactions and has not been on any anticoagulation and follows with Dr. Penn in the outpatient setting. Patient is scheduled tentatively for left hip surgery with orthopedics on 12/10/2021. Patient does have a pacemaker placed and also is scheduled to receive a watchman device on January 04 at [facility]. X-ray in the emergency department shows an oblique displaced subtrochanteric fracture of the left femur with 50% lateral displacement and no dislocation of the hip joint. Chest x-ray shows no heart failure a noted pacemaker and no pleural effusions. EKG reveals sinus rhythm with a rate of 86 12/10/2021 Patient is seen today and is going down for left leg surgical repair for her femur fracture. Patient went into afib with rvr yesterday evening and initially placed on IV cardizem although unable to tolerate for long and having low blood pressures. Patient hemoglobin is 6.8 this am and will order 2 units of PRBC. Recommend evening labs and will follow up after surgery. Patient is afebrile and NPO for the procedure. Patient has converted to sinus and recommend close telemetry monitoring. Resume home cardiac medications. 12/11/2021 Patient is seen this morning and reports she was able to sit at the side of the bed. PT/OT to evaluate in the am. Patient is non-weightbearing to the left lower extremity. Patient on iv hydration and recommend to discontinue as patient is eating and drinking. Patient reports some occasional nausea with no vomiting. Patient is passing gas with positive bowel sounds noted. Patient is continued with indwelling alvarado catheter for now. Plan is for ecf for continued PT/OT therapy. Patient is afebrile and denies chest pain or palpitations. Currently sinus rhythm. Orthopedics working on ECF. Will add incentive spirometer and encourage to use at least 10 times per hour while awake. Also recommend compression stockings and increased activity as tolerated. 12/12/2021 Patient is seen today with multiple family members at the bedside. Patient is sitting up in the chair and able to work with physical therapy. Orthopedics working on discharge planning to ECF. Patient is continuing to request IV pain medications and encouraged patient to limit the use of IV dilaudid and continue with oral pain medications. Recommend scheduled tylenol. Patient is afebrile and denies chest pain or shortness of breath. Patient is tolerating diet with no rep orts of nausea or vomiting noted. Encouraged incentive spirometer use and increased activity as tolerated. Patient is to be non-weightbearing to the left lower extremity per ortho. Encouraged oral intake. 12/13/2021 Patient is seen with daughter at the bedside. Patient is reporting that she is having some increased feeling of shortness of breath due to pain and reports the pain is at the upper right back. Rib and chest xray ordered. Patient is on asa high dose for dvt prophylaxis as patient is allergic to oral anticoagulation. Patient scheduled for watchman procedure in December. Will add dimer and if positive suggest CTA. Venous dopplers of b/l lower extremities ordered as well. Encouraged incentive spirometer use and increased activity as tolerated. Patient reports no BM and will add lactulose TID until bowel movement. Review of systems: Constitutional: no reports of fatigue, no fever, or chills Cardiovascular: No reports of chest pain or palpitations Respiratory: reports of shortness of breath and occasional cough with upper right chest wall pain at the back with cough and deep breathing GI: no reports of nausea today, reports no BM : No reports of dysuria or retention Neurovascular: reports of generalized weakness PHYSICAL EXAMINATION: GENERAL: The patient is alert and oriented x4, Well developed, well nourished. Thin built HEENT: Pupils are round and equally reacting to light. EOMI. no scleral icterus. No conjunctival pallor. Normocephalic, atraumatic. No pharyngeal erythema. No thyromegaly. CARDIOVASCULAR: S1 and S2 muffled, currently sinus PULMONARY: diminished breath sounds bilaterally with no wheezing or rhonchi noted. ABDOMEN: soft. Nontender on exam. non-distended, normoactive bowel sounds. No palpable organomegaly. MUSCULOSKELETAL: No joint swelling or deformity. Left hip surgical site is dry and intact EXTREMITIES: No cyanosis, clubbing, or pedal edema. mild generalized edema noted bilaterally NEUROLOGICAL: Gross neurological examination did not reveal any focal deficits. Diffuse weakness SKIN: No rashes. Assessment: Mechanical fall with left hip pain status post ORIF intramedullary thu fixation of the left subtrochanteric femur fracture Paroxysmal atrial fibrillation, not on anticoagulation as patient had an ALLERG IC reaction scheduled outpatient in December for a watchman device Atrial fibrillation with RVR , currently rate controlled Hypotension secondary to cardizem, improved Acute kidney injury, prerenal, improved Chronic anemia Coronary artery disease COPD, not in exacerbation History of fibromyalgia gastroesophageal reflux disease Hypertension Osteoarthritis Hypothyroidism GI prophylaxis DVT prophylaxis Full code Plan: Recommend to continue with current medications and management per orthopedic services. Patient underwent ORIF intramedullary thu fixation of the left subtrochanteric femur fracture with orthopedics Dr. Lee and is working with PT/OT therapy. Planning for ecf for continued strength and mobility. Resume home cardiac meds. Recommend telemetry monitoring. Recommend compression stockings. Patient having some upper rib pain and mild shortness of breath due to the pain and chest xray shows atelectasis. D-dimer was elevated at 6 and CTA ordered showing no PE with some groundglass opacities. Will order covid. Patient also reports no BM since admission and will add lactulose TID until bowel movement. Encouraged IS use and increased activity as tolerated. Venous dopplers ordered as well and pending. Will continue to follow along with orthopedic surgery with further recommendations to follow. Ortho planning for ecf once medically stable. Recommend limiting IV dilaudid use. Due to multiple complex medical issues, prognosis is guarded. Thank you for this consultation The impression and plan of care has been dictated by Lauryn Briscoe, nurse practitioner as directed. Dr. Jose MD I have performed a history and examination and MDM of this patient, discussed the same with the dictator, and agree with the dictator's assessment and plan as written ,documented as a scribe. Based on total visit time, I have performed more than 50% of the visit. Any additional findings or plans will be noted. Objective - Vital Signs Vital signs: Vital Signs Temp 97.9 F 12/13/21 04:00 Pulse 66 12/13/21 04:00 Resp 18 12/13/21 04:00 BP 149/66 12/13/21 04:00 Pulse Ox 99 12/13/21 04:00 FiO2 Intake & Output 12/12/21 12/13/21 12/13/21 18:59 06:59 18:59 Output Total 875 500 Balance -875 -500 Weight 43.545 kg Output: Urine 875 500 Uretheral (Alvarado) 500 Other: Voiding Method Indwelling Catheter Indwelling Catheter - Labs CBC & Chem 7: 12/12/21 06:53 12/11/21 07:20 Labs: Abnormal Lab Results - Last 24 Hours (Table) 12/12/21 Range/Units 06:53 Myelocytes # (Manual) 0.10 H (0) k/uL Nucleated RBCs 4 H (0-0) /100 WBC
[2021-12-14] MEDS: HYDROmorphone 0.5 MG/0.5 ML SYRINGE IVP PRN ×3 (05:55→17:26)
[2021-12-14] MEDS: LEVOTHYROXINE 100 MCG TAB PO SCH (06:07)
[2021-12-14] MEDS: PANTOPRAZOLE 40 MG TABLET PO SCH ×2 (06:07→17:19)
[2021-12-14] MEDS: IPRATROPIUM-ALBUTEROL 3 ML NEB INHALATION SCH ×3 (08:28→21:01)
[2021-12-14] MEDS: MAGNESIUM OXIDE 400 MG TAB PO SCH (08:53)
[2021-12-14] MEDS: METOPROLOL TARTRATE 50 MG TAB PO SCH ×2 (08:53→20:09)
[2021-12-14] MEDS: DICYCLOMINE 10 MG CAP PO SCH ×3 (08:53→20:09)
[2021-12-14] MEDS: ASPIRIN 325 MG TAB PO SCH (08:53)
[2021-12-14] MEDS: POTASSIUM CHLORIDE ER 20 MEQ TAB.ER PO SCH ×2 (08:54→20:09)
[2021-12-14] MEDS: LACTOBACILLUS ACIDOPH & BULGAR 1 EACH PACKET PO SCH (08:55)
[2021-12-14] MEDS: polyethylene glycoL 3350 17 GM POWD.PACK PO SCH (08:55)
[2021-12-14] MEDS: HYDROcodone/APAP 5-325MG 1 EACH TAB PO PRN (08:55)
[2021-12-14] MEDS: allopurinoL 100 MG TAB PO SCH (09:01)
[2021-12-14] MEDS: MENTHOL-ZINC OXIDE OINT 113 GM TUBE TOPICAL SCH (09:13)
[2021-12-14 09:44] LABS: African American GFR (CKD) >90 (>60 ml/min/1.73 sqM); Anion Gap 9 mmol/L; Blood Urea Nitrogen 15 mg/dL (7-17); Calcium 8.6 mg/dL (8.4-10.2); Carbon Dioxide 25 mmol/L (22-30); Chloride 104 mmol/L (98-107); Glucose 89 mg/dL (74-99); Non-African American GFR(CKD) 86 (>60 ml/min/1.73 sqM); Potassium 3.9 mmol/L (3.5-5.1); Sodium 138 mmol/L (137-145)
[2021-12-14 09:58] LABS: Anisocytosis Slight; HCT 31.5 % (34.0-46.0); HGB 9.9 gm/dL (11.4-16.0); Hypochromasia Slight; MCHC 31.4 g/dL (31.0-37.0); MCV 98.5 fL (80.0-100.0); Macrocytosis Slight; Mean Platelet Volume 8.1; Platelet Count 289 k/uL (150-450); RBC 3.19 m/uL (3.80-5.40); RDW 17.1 % (11.5-15.5)
[2021-12-14] MEDS: ONDANSETRON 4 MG/2 ML VIAL IVP PRN (13:48)
[2021-12-14 14:42] LABS: Eosinophils # (M) 0.21 k/uL (0-0.7); Lymphocytes # (M) 2.16 k/uL (1.0-4.8); Metamyelocytes # (M) 0.31 k/uL (0); Metamyelocytes % 3 %; Monocytes # (M) 0.41 k/uL (0-1.0); Myelocytes # (M) 0.31 k/uL (0); Myelocytes % 3 %; Neutrophils % (M) 67 %; Nucleated Red Blood Cells 2 /100 WBC (0-0); Total Cells Counted 200; WBC 10.3 k/uL (3.8-10.6)
--- NOTE | 2021-12-14 16:08 | P.PN ---
Progress Note - Text Progress Note Date: 12/14/21 Orthopedics: History of present illness: Patient is a very pleasant 76-year-old female who is seen and examined at bedside. She is status post left hip ORIF with intramedullary nail fixation for left subtrochanteric hip fracture. She does continue to have some pain at her left hip. She is currently sitting in a bedside chair. Her Greene catheter was discontinued yesterday. She is now been voiding independently without difficulty. She is still requiring IV Dilaudid for pain control. She is known to have sustained a left subtrochanteric hip fracture status post fall. She states she fell on her left. She states since the fall she has been experiencing worsening right-sided rib pain. Initially she did not think anything of it and thought this pain would go away but states it is progressively worsened each day. She has not had significant improvement of her pain as compared to yesterday. She denies any midthoracic pain or specific radiculopathy of the thoracic spine. She states her pain is significant over the right lateral ribs and exacerbated with coughing and deep breathing. She states she has had difficulty taking a deep breath due to this pain. Further testing was performed yesterday. She had an elevated d-dimer. She underwent Doppler imaging and CT of the chest to rule out DVT and pulmonary embolism. These testings were negative. She is currently being evaluated by medicine for possible pneumonia. Patient is currently planning to remain in the hospital until at least tomorrow and will need clearance by multiple other medical providers. X-rays of the right ribs taken yesterday were negative for displaced fracture. Dressings remained clean, dry, and intact over the left hip. She is remain strict nonweightbearing on the left lower extremity. She is working with physical therapy for transfers. She is planning to be discharged to a rehabilitation facility when approved. Nursing states case management is still working on approval. She has been cleared for discharge from a cardiology stand point. She continues be seen and examined by medicine. Patient will be discharged to [facility] rehabilitation facility. Physical Exam Intramedullary Rodding for Subtrochanteric Fracture: Status post surgical day number 4 Patient is examined sitting on a bedside commode Patient is awake and alert, and oriented 3 Vital signs stable Good chest excursion with deep inspiration and expiration Significant pain with palpation of the right lateral ribs No pain with palpation along the midline of the thoracic spine Increased thoracic kyphosis Evidence of thoracic scoliosis Evidence of multiple well-healing wounds around the thoracic spine following previous ALLERGIC reaction to medication No signs or symptoms of DVT; no calf pain Lower extremity cuffs in place bilaterally Dressing of the left hip is clean, dry, and intact; no erythema, purulence, or signs of infection Pain with palpation over the left anterior thigh Full range of motion of ankles bilaterally Dorsiflexion, plantarflexion, and extensor hallucis longus positive sustained bilaterally Neurovascularly intact bilateral lower extremities Capillary refill less than 2 seconds bilateral lower extremities Greene catheter has been discontinued Pertinent studies: X-rays of the right ribs and chest taken on 12/13/2021: No evidence of his place rib fracture; evidence of thoracic kyphoplasty; clips and previous cholecystectomy CTA of the chest taken on 12/13/2021: No evidence of pulmonary embolism; trace right pleural effusion with associated atelectasis; a few patchy ground glass opacities in the left upper lobe which could represent infectious process Venous ultrasound Doppler taken on 12/13/2021: Negative for DVT Assessment: Status post left hip ORIF with intramedullary nail fixation for left subtrochanteric hip fracture Left hip pain Status post fall Right-sided rib pain Difficulty taking a deep breath due to exacerbating right-sided rib pain Elevated d-dimer Possible pneumonia History of atrial fibrillation with unable to tolerate anticoagulation medication due to severe ALLERGIC reaction Coronary artery disease Severe osteoporosis COPD Fibromyalgia Gastroesophageal reflux disease History of GI bleed Hypertension History myocardial infarction Hypothyroidism Chronic constipation Plan: 1. Patient to remain strict nonweightbearing on the left lower extremity; patient may work with physical therapy to increase mobility and ambulation 2. Keep dressing over the left hip clean, dry, and intact 3. She has been experiencing worsening right sided rib pain and has had difficulty taking a deep breath due to this pain. Her pain is also exacerbated with coughing. She denies specific injury to her right ribs when she previously fell to the left but states the pain has been worsening daily. X-rays of the right rib were negative for displaced fracture. She did undergo a CTA of the chest and Doppler without evidence of pulmonary embolism or DVT. There was evidence of possible pneumonia. She's currently being treated and evaluated by medicine in this regard. 4. Continue pain control with oral Elrosa and IV Dilaudid as needed for pain control 5. Continue with anticoagulation therapy with aspirin 325 mg daily 6. Medicine to continue following the patient for their other medical diagnosis including right-sided rib pain with deep breathing; currently being evaluated for possible pneumonia; patient has not been cleared for discharge; this would like to continue to monitor the patient overnight 7. Patient has been cleared for discharge from a cardiac standpoint; they may plan for watchman in the outpatient setting 8. We'll continue to follow the patient closely; she has had difficulty with pain contro. She continues to require IV Dilaudid. When cleared by multiple other medical providers, patient is planning to be discharged to [facility]. When her pain is better controlled with oral medications, we are able to discontinue IV pain medications, and she is cleared by medicine, we will plan for discharge as early as tomorrow, 12/15/2021 9. Patient can follow-up with Nate Yepez PA-C or Dr. Odell Lee at [facility] in 2-3 weeks following discharge
--- NOTE | 2021-12-14 16:56 | P.PN ---
Subjective Progress Note Date: 12/14/21 - Reason for Consult Consult date: 12/09/21 Medical management recent fall with left femur fracture - History of Present Illness This is a pleasant 76-year-old female who presented to the emergency department via EMS after falling at home. Patient reports to tripping and falling landing directly on her left hip and immediately being unable to pay her weight or move her leg. Patient denies any dizziness or lightheadedness or syncope prior to the fall and reports no head injury on landing. Patient follows with Dr. Wray in the outpatient setting and has history of atrial fibrillation, coronary artery disease, chest pain/angina, COPD, fibromyalgia, gastroesophageal reflux disease, GI bleed history, hypertension, myocardial infarction, osteoarthritis, hypothyroidism, and severe osteoporosis. Patient with a cardiac history as history of atrial fibrillation and unable to tolerate oral anticoagulant with severe ALLERGIC reactions and has not been on any anticoagulation and follows with Dr. Penn in the outpatient setting. Patient is scheduled tentatively for left hip surgery with orthopedics on 12/10/2021. Patient does have a pacemaker placed and also is scheduled to receive a watchman device on January 04 at [facility]. X-ray in the emergency department shows an oblique displaced subtrochanteric fracture of the left femur with 50% lateral displacement and no dislocation of the hip joint. Chest x-ray shows no heart failure a noted pacemaker and no pleural effusions. EKG reveals sinus rhythm with a rate of 86 12/10/2021 Patient is seen today and is going down for left leg surgical repair for her femur fracture. Patient went into afib with rvr yesterday evening and initially placed on IV cardizem although unable to tolerate for long and having low blood pressures. Patient hemoglobin is 6.8 this am and will order 2 units of PRBC. Recommend evening labs and will follow up after surgery. Patient is afebrile and NPO for the procedure. Patient has converted to sinus and recommend close telemetry monitoring. Resume home cardiac medications. 12/11/2021 Patient is seen this morning and reports she was able to sit at the side of the bed. PT/OT to evaluate in the am. Patient is non-weightbearing to the left lower extremity. Patient on iv hydration and recommend to discontinue as patient is eating and drinking. Patient reports some occasional nausea with no vomiting. Patient is passing gas with positive bowel sounds noted. Patient is continued with indwelling alvarado catheter for now. Plan is for ecf for continued PT/OT therapy. Patient is afebrile and denies chest pain or palpitations. Currently sinus rhythm. Orthopedics working on ECF. Will add incentive spirometer and encourage to use at least 10 times per hour while awake. Also recommend compression stockings and increased activity as tolerated. 12/12/2021 Patient is seen today with multiple family members at the bedside. Patient is sitting up in the chair and able to work with physical therapy. Orthopedics working on discharge planning to ECF. Patient is continuing to request IV pain medications and encouraged patient to limit the use of IV dilaudid and continue with oral pain medications. Recommend scheduled tylenol. Patient is afebrile and denies chest pain or shortness of breath. Patient is tolerating diet with no rep orts of nausea or vomiting noted. Encouraged incentive spirometer use and increased activity as tolerated. Patient is to be non-weightbearing to the left lower extremity per ortho. Encouraged oral intake. 12/13/2021 Patient is seen with daughter at the bedside. Patient is reporting that she is having some increased feeling of shortness of breath due to pain and reports the pain is at the upper right back. Rib and chest xray ordered. Patient is on asa high dose for dvt prophylaxis as patient is allergic to oral anticoagulation. Patient scheduled for watchman procedure in December. Will add dimer and if positive suggest CTA. Venous dopplers of b/l lower extremities ordered as well. Encouraged incentive spirometer use and increased activity as tolerated. Patient reports no BM and will add lactulose TID until bowel movement. 12/14/2021 Patient is seen and evaluated in follow-up this morning continuing to have pain and requesting IV Dilaudid for pain relief. CTA showing some groundglass opacification disease and cannot rule out infectious process and will add IV Zosyn every 8 and monitor closely. Patient is afebrile and denies chest pain or shortness of breath. WBC is 10.3 with a hemoglobin of 9.9 and BMP is reviewed and within normal limits. COVID-19 testing was negative. Encouraged incentive spirometer use and continue to increase activity as tolerated with nonweightbea ring per orthopedic guidelines. Patient was given lactulose as patient was reporting no bowel movement although is now having bowel movements and will discontinue lactulose. Review of systems: Constitutional: no reports of fatigue, no fever, or chills Cardiovascular: No reports of chest pain or palpitations Respiratory: No reports of worsening shortness of breath and occasional cough GI: no reports of nausea today, reports having bowel movements : No reports of dysuria or retention Neurovascular: reports of generalized weakness PHYSICAL EXAMINATION: GENERAL: The patient is alert and oriented x4, Well developed, well nourished. Thin built HEENT: Pupils are round and equally reacting to light. EOMI. no scleral icterus. No conjunctival pallor. Normocephalic, atraumatic. No pharyngeal erythema. No thyromegaly. CARDIOVASCULAR: S1 and S2 muffled, currently sinus PULMONARY: diminished breath sounds bilaterally with no wheezing or rhonchi noted. ABDOMEN: soft. Nontender on exam. non-distended, normoactive bowel sounds. No palpable organomegaly. MUSCULOSKELETAL: No joint swelling or deformity. Left hip surgical site is dry and intact EXTREMITIES: No cyanosis, clubbing, or pedal edema. mild generalized edema noted bilaterally NEUROLOGICAL: Gross neurological examination did not reveal any focal deficits. Diffuse weakness SKIN: No rashes. Assessment: Mechanical fall with left hip pain status post ORIF intramedullary thu fixation of the left subtrochanteric femur fracture Paroxysmal atrial fibrillation, not on anticoagulation as patient had an ALLERGIC reaction scheduled outpatient in December for a watchman device, currently rate controlled Groundglass opacification is noted on CT with no evidence of PE Elevated d-dimer with no evidence of PE noted on CTA Acute kidney injury, prerenal, improved Chronic anemia Coronary artery disease COPD, not in exacerbation History of fibromyalgia gastroesophageal reflux disease Hypertension Osteoarthritis Hypothyroidism GI prophylaxis DVT prophylaxis Full code Plan: Recommend to continue with current medications and management per orthopedic services. Patient underwent ORIF intramedullary thu fixation of the left subtrochanteric femur fracture with orthopedics Dr. Lee and is working with PT/OT therapy. Planning for ecf for continued strength and mobility. Resume home cardiac meds. Recommend telemetry monitoring. Recommend compression stockings. Patient continues to report some pain and has asked for IV Dilaudid and discussed again the importance of limiting IV pain medications and continuing with oral pain medications. CTA was questionable of groundglass opacification is with possible infectious process not ruled out and will add IV Zosyn and recommend repeat labs and close monitoring. Encouraged incentive spirometer use and continued increase activity as tolerated. Encouraged oral intake and recommend repeat labs. Due to multiple complex medical issues, prognosis is guarded. Thank you for this consultation The impression and plan of care has been dictated by Lauryn Briscoe, nurse practitioner as directed. Dr. Jose MD I have performed a history and examination and MDM of this patient, discussed the same with the dictator, and agree with the dictator's assessment and plan as written ,documented as a scribe. Based on total visit time, I have performed more than 50% of the visit. Any additional findings or plans will be noted. Objective - Vital Signs Vital signs: Vital Signs Temp 98.2 F 12/14/21 03:32 Pulse 77 12/14/21 08:52 Resp 16 12/14/21 08:52 BP 119/62 12/14/21 08:52 Pulse Ox 93 L 12/14/21 08:52 FiO2 Intake & Output 12/13/21 12/14/21 12/14/21 18:59 06:59 18:59 Intake Total 360 10 240 Output Total 550 Balance -190 10 240 Intake: IV 10 Invasive Line 4 10 Oral 360 240 Output: Urine 550 Other: Voiding Method Indwelling Catheter Bedside Commode # Voids 1 # Bowel Movements 1 1 - Labs CBC & Chem 7: 12/14/21 08:43 12/14/21 08:43 Labs: Abnormal Lab Results - Last 24 Hours (Table) 12/13/21 Range/Units 11:52 D-Dimer 6.20 H (<0.60) mg/L FEU
[2021-12-14] MEDS: PIPERACILLIN-TAZOBACTAM 3.375 GM in SODIUM CHLORIDE 0.9% 100 ML IVPB SCH ×2 (17:19→23:22)
[2021-12-14] MEDS ORDERED: DILTIAZEM 125 MG in SODIUM CHLORIDE 0.9% 100 ML IV SCH (18:45)
[2021-12-14] MEDS: AMITRIPTYLINE HCL 25 MG TAB PO SCH (20:09)
[2021-12-15] MEDS: HYDROcodone/APAP 7.5-325MG 1 EACH TAB PO PRN ×3 (00:08→09:06)
[2021-12-15] MEDS: LEVOTHYROXINE 100 MCG TAB PO SCH (06:19)
[2021-12-15] MEDS: ACETAMINOPHEN TAB 500 MG TAB PO SCH ×3 (06:20→18:26)
[2021-12-15] MEDS: PANTOPRAZOLE 40 MG TABLET PO SCH ×2 (06:20→18:27)
[2021-12-15] MEDS: IPRATROPIUM-ALBUTEROL 3 ML NEB INHALATION SCH ×3 (08:33→21:27)
[2021-12-15] MEDS: DICYCLOMINE 10 MG CAP PO SCH ×3 (09:06→21:09)
[2021-12-15] MEDS: PIPERACILLIN-TAZOBACTAM 3.375 GM in SODIUM CHLORIDE 0.9% 100 ML IVPB SCH ×2 (09:08→16:13)
[2021-12-15] MEDS: allopurinoL 100 MG TAB PO SCH (09:08)
[2021-12-15] MEDS: METOPROLOL TARTRATE 50 MG TAB PO SCH ×2 (09:09→21:10)
[2021-12-15] MEDS: POTASSIUM CHLORIDE ER 20 MEQ TAB.ER PO SCH ×2 (09:09→21:10)
[2021-12-15] MEDS: MAGNESIUM OXIDE 400 MG TAB PO SCH (09:09)
[2021-12-15] MEDS: ASPIRIN 325 MG TAB PO SCH (09:09)
[2021-12-15] MEDS: polyethylene glycoL 3350 17 GM POWD.PACK PO SCH (09:10)
[2021-12-15] MEDS: LACTOBACILLUS ACIDOPH & BULGAR 1 EACH PACKET PO SCH (09:10)
--- NOTE | 2021-12-15 09:13 | P.PN ---
Progress Note - Text Progress Note Date: 12/15/21 Postoperative day #5 Patient is seen and examined today at bedside. The patient has some pain around the surgical site as expected. Pain is being controlled with medication, but she is still requiring medication very regularly every 4 hours. Overnight her rhythm change and apparently went into atrial fibrillation again. [employer] Coordinator her on a Cardizem drip. Physical Exam Afebrile currently in atrial fibrillation Abdomen is soft nontender. Chest has good excursion deep and space expiration The incision site is clean dry and intact. No erythema there is no purulence. Extremities have not had neurologic change from prior to surgery. She is able to do dorsiflexion i and plantar flexion at the left ankle. She has some motion at her left knee but is painful around her hip as expected. Her thigh and calf are soft and nontender. Calves and thighs were soft nontender without evidence of DVT. Assessment/Plan Postoperative day #5 status post left hip open reduction internal fixation for subtrochanteric peritrochanteric femur fracture with intramedullary rodding Atrial fibrillation Osteoporosis Patient is progressing slowly from her surgery. She had a severe fracture at her left hip and has delicate bone quality which will make it somewhat difficult to heal. She needs to remain nonweightbearing left lower extremity but we need to continue to mobilize her as best as possible physical therapy maintaining a nonweightbearing status. We will continue to increase the patient's mobilization with therapy nonweightbearing on her left lower extremity. She is being treated for pneumonia and went back into atrial fibrillation overnight. She is back on a Cardizem drip and this is being managed with medicine and pathology service. When she is stable from medical standpoint is okay for her to transfer to group home from orthopedic standpoint We will continue pain control with oral or IV medications. She still requiring significant pain medication and we will try to spread out the requirement by increasing the dosage to see if that gives her been long lasting relief. We'll continue to follow patient closely.
[2021-12-15] MEDS: AMIODARONE 200 MG TAB PO SCH ×2 (10:45→21:10)
[2021-12-15] MEDS: DILTIAZEM 125 MG in SODIUM CHLORIDE 0.9% 100 ML IV SCH (10:52)
[2021-12-15] MEDS: MENTHOL-ZINC OXIDE OINT 113 GM TUBE TOPICAL SCH (10:58)
[2021-12-15 11:28] LABS: Anisocytosis Slight; Basophils # (A) 0.1 k/uL (0-0.2); Basophils % (A) 1 %; Eosinophils # (A) 0.5 k/uL (0-0.7); Eosinophils % (A) 4 %; HCT 30.6 % (34.0-46.0); HGB 9.8 gm/dL (11.4-16.0); Hypochromasia Slight; Lymphocytes # (A) 1.6 k/uL (1.0-4.8); Lymphocytes % (A) 15 %; MCH 31.6 pg (25.0-35.0); MCV 98.8 fL (80.0-100.0); Macrocytosis Slight; Mean Platelet Volume 8.4; Monocytes # (A) 0.5 k/uL (0-1.0); Monocytes % (A) 4 %; Neutrophils # (A) 8.3 k/uL (1.3-7.7); Neutrophils % (A) 74 %; Platelet Count 291 k/uL (150-450); WBC 11.1 k/uL (3.8-10.6)
--- NOTE | 2021-12-15 11:30 | P.PN ---
Subjective HISTORY OF PRESENTING ILLNESS The patient is a 76-year-old female patient with a past medical history significant for permanent pacemaker,paroxysmal atrial fibrillation currently not on oral anticoagulation for history of gastrointestinal bleeding and the patient is in process of having the watchman device placement in the next few weeks. She follows with Dr. Penn. Cardiology re-consulted for A fib with RVR. She presented to the hospital after she fell at home. Apparently the patient tripped and fell at home and she landed on the left side of the body. She developed left femur fracture after she underwent an x-ray and evaluation in the emergency department. The patient clearly stated that she did not lose her consciousness nor she felt dizzy or lightheaded or any feeling of heart racing or fluttering or any presyncope or syncope. No symptoms of chest pain or chest discomfort or shortness of breath. She underwent also cardiac workup including an EKG showing sinus rhythm with no significant ST or T-wave abnormalities and also she underwent a chest x-ray came in to be unremarkable. Patient underwent left hip surgery on 12/10/2021 with orthopedics. Echocardiogram in the office 09/2021 revealed EF 52%, moderate mitral regurgitat ion, severe tricuspid regurgitation, moderate aortic regurgitation On 12/10- Initially was attempted on Cardizem drip however blood pressure is borderline with systolics down to the 70s and 80s and therefore was given amiodarone. Patient converted and currently in sinus rhythm at that time. Her home metoprolol 50 mg twice a day has been added back. 12/15 Patient seen and examined. Overnight patient went back into each fibrillation with rapid ventricular response. She was started on IV Cardizem drip. Denies any chest pain or pressure. Denies any shortness breath. Currently patient remains in atrial fibrillation with heart rates [id number]. This morning BP 95/52, heart rate 110. PHYSICAL EXAMINATION Vital signs reviewed. CONSTITUTIONAL: No apparent distress. HEENT: Neck Supple No JVD. CHEST EXAMINATION: Lungs are clear to auscultation. No chest wall tenderness is noted on palpation or with deep breathing. HEART EXAMINATION: Irregular rate and rhythm. S1, S2 heard. Diastolic murmur at base, systolic murmur noted at apex ABDOMEN: Soft, nontender. Positive bowel sounds. EXTREMITIES: 2+ peripheral pulses, no lower extremity edema and no calf tenderness. NEUROLOGIC EXAMINATION: Patient is awake, alert and oriented x3. ASSESSMENT Paroxysmal atrial fibrillation with RVR not on anticoagulation secondary to GI bleed, in process of having watchman device placement Status post fall and left femur fracture s/p left hip open reduction internal fixation for subtrochanteric peritrochanteric femur fracture with intramedullary rodding on 12/10/21 History of permanent pacemaker History of GI bleed PLAN: Start amiodarone 200mg BID Continue IV Cardizem at this time, if patient converts to sinus rhythm will stop Patient being worked up outpatient for possible watchman. No anticoagulation at this point. Continue with metoprolol. Monitor on telemetry Further recommendations based on clinical course Nurse practitioner note has been reviewed by physician. Signing provider agrees with the documented findings, assessment, and plan of care. Objective - Vital Signs Vital signs: Vital Signs Temp 98.4 F 12/15/21 04:00 Pulse 113 H 12/15/21 04:00 Resp 16 12/15/21 04:00 BP 94/56 12/15/21 04:00 Pulse Ox 97 12/15/21 04:00 FiO2 Intake & Output 12/14/21 12/15/21 12/15/21 18:59 06:59 18:59 Intake Total 480 20 Balance 480 20 Intake: IV 20 Invasive Line 5 10 Invasive Line 6 10 Oral 480 Other: Voiding Method Bedside Commode # Voids 1 1 # Bowel Movements 1 - Labs CBC & Chem 7: 12/14/21 08:43 12/14/21 08:43 Labs: Abnormal Lab Results - Last 24 Hours (Table) 12/14/21 Range/Units 08:43 RBC 3.19 L (3.80-5.40) m/uL Hgb 9.9 L (11.4-16.0) gm/dL Hct 31.5 L (34.0-46.0) % RDW 17.1 H (11.5-15.5) % Metamyelocytes # (Man) 0.31 H (0) k/uL Myelocytes # (Manual) 0.31 H (0) k/uL Nucleated RBCs 2 H (0-0) /100 WBC
[2021-12-15 11:34] LABS: Calcium 8.3 mg/dL (8.4-10.2); Potassium 5.3 mmol/L (3.5-5.1)
[2021-12-15] MEDS: HYDROcodone/APAP 10-325MG 1 EACH TAB PO PRN ×3 (12:18→21:11)
[2021-12-15] MEDS: AMITRIPTYLINE HCL 25 MG TAB PO SCH (21:09)
--- NOTE | 2021-12-15 23:45 | P.PN ---
Subjective Progress Note Date: 12/15/21 - Reason for Consult Consult date: 12/09/21 Medical management recent fall with left femur fracture - History of Present Illness This is a pleasant 76-year-old female who presented to the emergency department via EMS after falling at home. Patient reports to tripping and falling landing directly on her left hip and immediately being unable to pay her weight or move her leg. Patient denies any dizziness or lightheadedness or syncope prior to the fall and reports no head injury on landing. Patient follows with Dr. Wray in the outpatient setting and has history of atrial fibrillation, coronary artery disease, chest pain/angina, COPD, fibromyalgia, gastroesophageal reflux disease, GI bleed history, hypertension, myocardial infarction, osteoarthritis, hypothyroidism, and severe osteoporosis. Patient with a cardiac history as history of atrial fibrillation and unable to tolerate oral anticoagulant with severe ALLERGIC reactions and has not been on any anticoagulation and follows with Dr. Penn in the outpatient setting. Patient is scheduled tentatively for left hip surgery with orthopedics on 12/10/2021. Patient does have a pacemaker placed and also is scheduled to receive a watchman device on January 04 at [facility]. X-ray in the emergency department shows an oblique displaced subtrochanteric fracture of the left femur with 50% lateral displacement and no dislocation of the hip joint. Chest x-ray shows no heart failure a noted pacemaker and no pleural effusions. EKG reveals sinus rhythm with a rate of 86 12/10/2021 Patient is seen today and is going down for left leg surgical repair for her femur fracture. Patient went into afib with rvr yesterday evening and initially placed on IV cardizem although unable to tolerate for long and having low blood pressures. Patient hemoglobin is 6.8 this am and will order 2 units of PRBC. Recommend evening labs and will follow up after surgery. Patient is afebrile and NPO for the procedure. Patient has converted to sinus and recommend close telemetry monitoring. Resume home cardiac medications. 12/11/2021 Patient is seen this morning and reports she was able to sit at the side of the bed. PT/OT to evaluate in the am. Patient is non-weightbearing to the left lower extremity. Patient on iv hydration and recommend to discontinue as patient is eating and drinking. Patient reports some occasional nausea with no vomiting. Patient is passing gas with positive bowel sounds noted. Patient is continued with indwelling alvarado catheter for now. Plan is for ecf for continued PT/OT therapy. Patient is afebrile and denies chest pain or palpitations. Currently sinus rhythm. Orthopedics working on ECF. Will add incentive spirometer and encourage to use at least 10 times per hour while awake. Also recommend compression stockings and increased activity as tolerated. 12/12/2021 Patient is seen today with multiple family members at the bedside. Patient is sitting up in the chair and able to work with physical therapy. Orthopedics working on discharge planning to ECF. Patient is continuing to request IV pain medications and encouraged patient to limit the use of IV dilaudid and continue with oral pain medications. Recommend scheduled tylenol. Patient is afebrile and denies chest pain or shortness of breath. Patient is tolerating diet with no rep orts of nausea or vomiting noted. Encouraged incentive spirometer use and increased activity as tolerated. Patient is to be non-weightbearing to the left lower extremity per ortho. Encouraged oral intake. 12/13/2021 Patient is seen with daughter at the bedside. Patient is reporting that she is having some increased feeling of shortness of breath due to pain and reports the pain is at the upper right back. Rib and chest xray ordered. Patient is on asa high dose for dvt prophylaxis as patient is allergic to oral anticoagulation. Patient scheduled for watchman procedure in December. Will add dimer and if positive suggest CTA. Venous dopplers of b/l lower extremities ordered as well. Encouraged incentive spirometer use and increased activity as tolerated. Patient reports no BM and will add lactulose TID until bowel movement. 12/14/2021 Patient is seen and evaluated in follow-up this morning continuing to have pain and requesting IV Dilaudid for pain relief. CTA showing some groundglass opacification disease and cannot rule out infectious process and will add IV Zosyn every 8 and monitor closely. Patient is afebrile and denies chest pain or shortness of breath. WBC is 10.3 with a hemoglobin of 9.9 and BMP is reviewed and within normal limits. COVID-19 testing was negative. Encouraged incentive spirometer use and continue to increase activity as tolerated with nonweightbea ring per orthopedic guidelines. Patient was given lactulose as patient was reporting no bowel movement although is now having bowel movements and will discontinue lactulose. 12/15/2021 Patient is seen this morning and went into atrial fibrillation with rvr and placed on IV cardizem. Cardiology has been asked to re-evaluate and being placed on oral amiodarone. Patient is on telemetry monitoring and has recently converted and cardizem being discontinued. Blood pressures soft in the 90's systolic. Patient is continued on IV zosyn and will continue for now. Encouraged incentive spirometer and increased activity as tolerated. ECF being planned by orthopedics. Patient is afebrile and denies worsening shortness of breath or chest pains. No reports of nausea or vomiting and tolerating diet. Recommend repeat am labs. Review of systems: Constitutional: no reports of fatigue, no fever, or chills Cardiovascular: No reports of chest pain or palpitations Respiratory: No reports of worsening shortness of breath GI: no reports of nausea today, reports having bowel movements : No reports of dysuria or retention Neurovascular: reports of generalized weakness PHYSICAL EXAMINATION: GENERAL: The patient is alert and oriented x4, Well developed, well nourished. Thin built HEENT: Pupils are round and equally reacting to light. EOMI. no scleral icterus. No conjunctival pallor. Normocephalic, atraumatic. No pharyngeal erythema. No thyromegaly. CARDIOVASCULAR: S1 and S2 muffled, irregular PULMONARY: diminished breath sounds bilaterally with no wheezing or rhonchi noted. ABDOMEN: soft. Nontender on exam. non-distended, normoactive bowel sounds. No palpable organomegaly. MUSCULOSKELETAL: No joint swelling or deformity. Left hip surgical site is dry and intact EXTREMITIES: No cyanosis, clubbing, or pedal edema. mild generalized edema noted bilaterally NEUROLOGICAL: Gross neurological examination did not reveal any focal deficits. Diffuse weakness SKIN: No rashes. Assessment: Mechanical fall with left hip pain status post ORIF intramedullary thu fixation of the left subtrochanteric femur fracture Paroxysmal atrial fibrillation, not on anticoagulation as patient had an ALLERGIC reaction scheduled outpatient in December for a watchman device, with afib rvr last night and placed on IV cardizem Groundglass opacification is noted on CT with no evidence of PE, possible pneumonia Elevated d-dimer with no evidence of PE noted on CTA Acute kidney injury, prerenal, improved Chronic anemia Coronary artery disease COPD, not in exacerbation History of fibromyalgia gastroesophageal reflux disease Hypertension Osteoarthritis Hypothyroidism GI prophylaxis DVT prophylaxis Full code Plan: Recommend to continue with current medications and management per orthopedic services. Cardiology reevaluated the patient as patient went into afib with rvr last night and placed on IV cardizem. Patient is being transitioned to oral amiodarone. Currently sinus rhythm and recommend continuing telemetry monitoring. Patient underwent ORIF intramedullary thu fixation of the left subtrochanteric femur fracture with orthopedics Dr. Lee and is working with PT/OT therapy. Planning for ecf for continued strength and mobility. Recommend compression stockings. Patient continues to report some pain and ortho has increased the norco dose and has prn dilaudid and has been encouraged to avoid IV narcotics if possible. CTA was questionable of groundglass opacification is with possible infectious process not ruled out and will continue IV Zosyn and recommend repeat labs and close monitoring. Encouraged incentive spirometer use and continued increase activity as tolerated. Encouraged oral intake and recommend repeat labs. Due to multiple complex medical issues, prognosis is guarded. Possible discharge in 24 hours. Thank you for this consultation The impression and plan of care has been dictated by Lauryn Briscoe, nurse practitioner as directed. Dr. Jose MD I have performed a history and examination and MDM of this patient, discussed the same with the dictator, and agree with the dictator's assessment and plan as written ,documented as a scribe. Based on total visit time, I have performed more than 50% of the visit. Any additional findings or plans will be noted. Objective - Vital Signs Vital signs: Vital Signs Temp 98.4 F 12/15/21 04:00 Pulse 116 H 12/15/21 08:50 Resp 16 12/15/21 04:00 BP 94/56 12/15/21 04:00 Pulse Ox 97 12/15/21 04:00 FiO2 Intake & Output 12/14/21 12/15/21 12/15/21 18:59 06:59 18:59 Intake Total 480 20 0 Balance 480 20 0 Intake: IV 20 Invasive Line 5 10 Invasive Line 6 10 Oral 480 0 Other: Voiding Method Bedside Commode # Voids 1 1 # Bowel Movements 1 - Labs CBC & Chem 7: 12/15/21 10:44 12/15/21 10:44 Labs: Abnormal Lab Results - Last 24 Hours (Table) 12/14/21 Range/Units 08:43 RBC 3.19 L (3.80-5.40) m/uL Hgb 9.9 L (11.4-16.0) gm/dL Hct 31.5 L (34.0-46.0) % RDW 17.1 H (11.5-15.5) % Metamyelocytes # (Man) 0.31 H (0) k/uL Myelocytes # (Manual) 0.31 H (0) k/uL Nucleated RBCs 2 H (0-0) /100 WBC
[2021-12-16] MEDS: PIPERACILLIN-TAZOBACTAM 3.375 GM in SODIUM CHLORIDE 0.9% 100 ML IVPB SCH ×2 (00:10→09:00)
[2021-12-16] MEDS: ACETAMINOPHEN TAB 500 MG TAB PO SCH ×3 (00:11→11:16)
[2021-12-16] MEDS: HYDROcodone/APAP 10-325MG 1 EACH TAB PO PRN ×3 (01:21→11:50)
[2021-12-16] MEDS: LEVOTHYROXINE 100 MCG TAB PO SCH (05:56)
[2021-12-16] MEDS: PANTOPRAZOLE 40 MG TABLET PO SCH (05:56)
[2021-12-16] MEDS: IPRATROPIUM-ALBUTEROL 3 ML NEB INHALATION SCH ×2 (07:22→11:11)
[2021-12-16 08:59] LABS: Calcium 8.4 mg/dL (8.4-10.2); Potassium 4.6 mmol/L (3.5-5.1)
--- NOTE | 2021-12-16 08:59 | P.DS ---
Providers Date of admission: 12/09/21 03:32 Expected date of discharge: 12/16/21 Attending physician: Cindy Zhao DO Consults: 12/09/21 03:32 Consult Physician Routine Consulting Provider: Rich Wong Consult Reason/Comments: medical management Do you want consulting provider notified?: Yes 12/14/21 19:40 Consult Physician Routine Consulting Provider: Belinda Singleton Consult Reason/Comments: afib rvr Do you want consulting provider notified?: Already Contacted Primary care physician: Elroy Wray - Discharge Diagnosis(es) (1) Status post fall Current Visit: Yes Status: Acute (2) COPD (chronic obstructive pulmonary disease) Current Visit: Yes Status: Acute (3) Fibromyalgia Current Visit: Yes Status: Acute (4) Gastroesophageal reflux Current Visit: Yes Status: Acute (5) History of GI bleed Current Visit: Yes Status: Acute (6) Hypertension Current Visit: Yes Status: Acute (7) History of myocardial infarction Current Visit: Yes Status: Acute (8) Pneumonia Current Visit: Yes Status: Acute (9) Femur fracture, left Current Visit: Yes Status: Acute (10) Atrial fibrillation Current Visit: No Status: Acute (11) Hypothyroid Current Visit: No Status: Acute (12) Left hip pain Current Visit: No Status: Acute Hospital Course: This is a pleasant 76-year-old female who presented with left subtrochanteric hip fracture status post fall. She was admitted for further treatment evaluation. She is status post left hip ORIF with intramedullary nail fixation for left subtrochanteric hip fracture. The patient tolerated the procedure and has done okay postoperatively from an orthopedic standpoint. She does have some pain in her left hip. She has remained strict nonweightbearing on the left lower extremity. During her admission she has been treated and evaluated for multiple other medical diagnoses including pneumonia and atrial fibrillation. During her admission she went back into atrial fibrillation. Nursing states this morning she has returned to normal sinus rhythm. She is being seen by cardiology and medicine. There has been some discussion that she will be clear for discharge to [facility] today. Patient does feel she would be ready for discharge today. We did discuss from an orthopedic standpoint patient will be clear for discharge but must be cleared by multiple medical providers including medicine and cardiology. Condition on day of discharge stable. Patient will be discharged to rehabilitation facility. Patient was cleared preoperatively for surgery by medicine. Patient currently denies any nausea, vomiting, fever, or chills. Patient is eating and voiding freely without difficulty. Patient may shower Optifoam dressing intact. Patient may remove Optifoam dressing in 3 days and shower without a dressing at that time. Patient will remain strict nonweightbearing on the left lower extremity. She is encouraged to work with physical therapy at [facility] to increase her mobility and ambulation. She may shower with dressing intact over the left hip. She may apply ice for comfort support as needed over the left hip. She is encouraged to use a walker or other aid to aid in ambulation as needed. Patient was discussed in detail with nursing. Patient must be cleared by medicine and cardiology prior to discharge. We'll plan for medicine to complete her med rec prior to discharge to [facility]. MAPS has been reviewed today, 12/16/2021, with an Overall Overdose Risk Score of 230. An "Opiod Start Talking" Form has been signed and placed in the patient's chart. A prescription has been written for [place] 10 mg/325 mg 1 tablet every 6 are as as needed for pain, dispense #28. Patient's other medical diagnoses include history of atrial fibrillation with unable to tolerate anticoagulation medication due to severe ALLERGIC reaction, coronary artery disease, severe osteoporosis, COPD, fibromyalgia, gastroesophageal reflux disease, history of GI bleed, hypertension, history myocardial infarction, hypothyroidism, and chronic constipation. Cardiology to manage patient's anticoagulation medications. Physical Exam on day of discharge: Status post surgical day number 6 Patient is examined sitting upright in bed Patient is awake and alert, and oriented 3 Vital signs stable Adequate chest excursion with deep inspiration and expiration Increased thoracic kyphosis Evidence of thoracic scoliosis Evidence of multiple well-healing wounds around the thoracic spine following previous ALLERGIC reaction to medication No signs or symptoms of DVT; no calf pain Lower extremity cuffs not currently in place bilaterally Dressing of the left hip is clean, dry, and intact; no erythema, purulence, or signs of infection Pain with palpation over the left anterior thigh Full range of motion of ankles bilaterally Dorsiflexion, plantarflexion, and extensor hallucis longus positive sustained bilaterally Neurovascularly intact bilateral lower extremities Capillary refill less than 2 seconds bilateral lower extremities Greene catheter has been discontinued Procedures: Left hip ORIF with intramedullary nail fixation for left subtrochanteric hip fracture Patient Condition at Discharge: Stable Plan - Discharge Summary Discharge Rx Participant: Yes New Discharge Prescriptions: New Sennosides-Docusate Sodium [Senokot-S] 1 tab PO BID PRN #60 tablet PRN Reason: Constipation HYDROcodone/APAP 10-325MG [[place] 10] 1 each PO Q6H PRN #28 tab PRN Reason: Pain No Action SUMAtriptan succinate [Imitrex] 50 mg PO BID PRN PRN Reason: Migraine Headache Ergocalciferol (Vitamin D2) [Vitamin D2] 50,000 unit PO FR Dicyclomine [Bentyl] 10 mg PO TID Denosumab [Prolia] 60 mg SQ Q180D Pantoprazole Sodium [Protonix] 40 mg PO BID L.acidoph,Paracasei, B.lactis [Probiotic] 1 cap PO DAILY allopurinoL [Zyloprim] 50 mg PO DAILY Furosemide [Lasix] 80 mg PO BID Metoprolol Tartrate [Lopressor] 50 mg PO BID Aspirin EC [Ecotrin Low Dose] 81 mg PO DAILY Diclofenac Sodium [Voltaren] 75 mg PO BID Diltiazem Cd [Cardizem CD] 120 mg PO DAILY Ergocalciferol [Vitamin D2 (1250 Mcg = 48027 Iu)] 1,250 mcg PO Q7D HYDROcodone/APAP 5-325MG [[place] 5-325] 1 tab PO BID PRN PRN Reason: Pain Magnesium Gluconate [Magonate] 750 mg PO DAILY polyethylene glycoL 3350 [Miralax] 17 gm PO DAILY Potassium Chloride [Potassium Chloride ER] 40 meq PO BID Albuterol Inhaler [Ventolin Hfa Inhaler] 2 puff INHALATION RT-Q4H PRN PRN Reason: Shortness Of Breath Spironolactone [Aldactone] 25 mg PO DAILY Amitriptyline HCl [Elavil] 25 mg PO HS calcitrioL [Calcitriol] 0.25 mcg PO Q7D hydrOXYzine HCL [Atarax] 25 mg PO Q6H PRN PRN Reason: Itching Levothyroxine Sodium 100 mcg PO AC-BRKFST Menthol-Zinc Oxide Oint [Calmoseptine Ointment] 1 applic TOPICAL DAILY Discharge Medication List SUMAtriptan succinate [Imitrex] 50 mg PO BID PRN 02/15/16 [History] Ergocalciferol (Vitamin D2) [Vitamin D2] 50,000 unit PO FR 01/14/18 [History] Dicyclomine [Bentyl] 10 mg PO TID 05/10/19 [History] Denosumab [Prolia] 60 mg SQ Q180D 02/06/20 [History] Furosemide [Lasix] 80 mg PO BID 02/06/20 [History] L.acidoph,Paracasei, B.lactis [Probiotic] 1 cap PO DAILY 02/06/20 [History] Pantoprazole Sodium [Protonix] 40 mg PO BID 02/06/20 [History] allopurinoL [Zyloprim] 50 mg PO DAILY 02/06/20 [History] Metoprolol Tartrate [Lopressor] 50 mg PO BID 10/05/20 [History] Albuterol Inhaler [Ventolin Hfa Inhaler] 2 puff INHALATION RT-Q4H PRN 08/04/21 [History] Spironolactone [Aldactone] 25 mg PO DAILY 08/04/21 [History] Amitriptyline HCl [Elavil] 25 mg PO HS 12/09/21 [History] Aspirin EC [Ecotrin Low Dose] 81 mg PO DAILY 12/09/21 [History] Diclofenac Sodium [Voltaren] 75 mg PO BID 12/09/21 [History] Diltiazem Cd [Cardizem CD] 120 mg PO DAILY 12/09/21 [History] Ergocalciferol [Vitamin D2 (1250 Mcg = 57981 Iu)] 1,250 mcg PO Q7D 12/09/21 [History] HYDROcodone/APAP 5-325MG [[place] 5-325] 1 tab PO BID PRN 12/09/21 [History] Levothyroxine Sodium 100 mcg PO AC-BRKFST 12/09/21 [History] Magnesium Gluconate [Magonate] 750 mg PO DAILY 12/09/21 [History] Menthol-Zinc Oxide Oint [Calmoseptine Ointment] 1 applic TOPICAL DAILY 12/09/21 [History] Potassium Chloride [Potassium Chloride ER] 40 meq PO BID 12/09/21 [History] calcitrioL [Calcitriol] 0.25 mcg PO Q7D 12/09/21 [History] hydrOXYzine HCL [Atarax] 25 mg PO Q6H PRN 12/09/21 [History] polyethylene glycoL 3350 [Miralax] 17 gm PO DAILY 12/09/21 [History] HYDROcodone/APAP 10-325MG [[place] 10] 1 each PO Q6H PRN #28 tab 12/16/21 [Rx] Sennosides-Docusate Sodium [Senokot-S] 1 tab PO BID PRN #60 tablet 12/16/21 [Rx] Follow up Appointment(s)/Referral(s): Ellen Penn MD [STAFF PHYSICIAN] - 1 Week Elroy Wray DO [Primary Care Provider] - 1 Week Nate Yepez PAC [PHYSICIAN LUNCHROOM ATTENDANT] - 2 Weeks (Patient may follow-up with Nate Yepez PA-C or Dr. Odell Lee at [facility] in 2-3 weeks following discharge. ) Activity/Diet/Wound Care/Special Instructions: 1. Strict nonweightbearing on the left lower extremity 2. Patient is encouraged to continue working with physical therapy to increase her mobility and ambulation 3. Keep dressings over the left hip clean, dry, and intact; keep dressings intact over the next 3 days 4. Patient may shower with waterproof dressing is intact over the left hip 5. Following discontinuation of dressings over the left hip, patient may shower without a dressing intact at the surgical sites remained clean and dry for 72 hours 6. Patient may apply ice over the left hip for comfort support as needed 7. Patient is encouraged using a walker or other aid to barrow worker helper in ambulation 8. Take medications as prescribed Discharge Disposition: TRANSFER TO SNF/ECF
[2021-12-16] MEDS ORDERED: ERGOCALCIFEROL 1,250 MCG (50,000 IU) CAPSULE PO SCH (09:00)
[2021-12-16] MEDS: MAGNESIUM OXIDE 400 MG TAB PO SCH (09:01)
[2021-12-16] MEDS: polyethylene glycoL 3350 17 GM POWD.PACK PO SCH (09:01)
[2021-12-16] MEDS: LACTOBACILLUS ACIDOPH & BULGAR 1 EACH PACKET PO SCH (09:01)
[2021-12-16] MEDS: allopurinoL 100 MG TAB PO SCH (09:02)
[2021-12-16] MEDS: MENTHOL-ZINC OXIDE OINT 113 GM TUBE TOPICAL SCH (09:02)
[2021-12-16] MEDS: DICYCLOMINE 10 MG CAP PO SCH (09:02)
[2021-12-16] MEDS: AMIODARONE 200 MG TAB PO SCH (09:02)
[2021-12-16] MEDS: METOPROLOL TARTRATE 50 MG TAB PO SCH (09:02)
[2021-12-16] MEDS: ASPIRIN 325 MG TAB PO SCH (09:02)
[2021-12-16 09:03] LABS: Anisocytosis Slight; Basophils # (A) 0.1 k/uL (0-0.2); Basophils % (A) 1 %; Eosinophils # (A) 0.6 k/uL (0-0.7); Eosinophils % (A) 6 %; HCT 29.5 % (34.0-46.0); HGB 9.4 gm/dL (11.4-16.0); Hypochromasia Moderate; Lymphocytes # (A) 1.3 k/uL (1.0-4.8); Lymphocytes % (A) 15 %; MCH 32.3 pg (25.0-35.0); MCHC 31.9 g/dL (31.0-37.0); MCV 101.3 fL (80.0-100.0); Macrocytosis Moderate; Mean Platelet Volume 7.8; Monocytes # (A) 0.5 k/uL (0-1.0); Monocytes % (A) 5 %; Neutrophils # (A) 6.1 k/uL (1.3-7.7); Neutrophils % (A) 69 %; Platelet Count 323 k/uL (150-450); RBC 2.91 m/uL (3.80-5.40); RDW 18.7 % (11.5-15.5); WBC 8.8 k/uL (3.8-10.6)
[2021-12-16 09:05] VITALS: BP 117/72; RESP 18; TEMP 97.8
[2021-12-16] MEDS: POTASSIUM CHLORIDE ER 20 MEQ TAB.ER PO SCH (09:05)
[2021-12-16] MEDS: HYDROmorphone 0.5 MG/0.5 ML SYRINGE IVP PRN ×2 (09:12→14:56)
[2021-12-16] MEDS: DILTIAZEM 125 MG in SODIUM CHLORIDE 0.9% 100 ML IV SCH (09:16)
--- NOTE | 2021-12-16 10:51 | P.PN ---
Subjective HISTORY OF PRESENTING ILLNESS The patient is a 76-year-old female patient with a past medical history significant for permanent pacemaker,paroxysmal atrial fibrillation currently not on oral anticoagulation for history of gastrointestinal bleeding and the patient is in process of having the watchman device placement in the next few weeks. She follows with Dr. Penn. Cardiology re-consulted for A fib with RVR. She presented to the hospital after she fell at home. Apparently the patient tripped and fell at home and she landed on the left side of the body. She developed left femur fracture after she underwent an x-ray and evaluation in the emergency department. The patient clearly stated that she did not lose her consciousness nor she felt dizzy or lightheaded or any feeling of heart racing or fluttering or any presyncope or syncope. No symptoms of chest pain or chest discomfort or shortness of breath. She underwent also cardiac workup including an EKG showing sinus rhythm with no significant ST or T-wave abnormalities and also she underwent a chest x-ray came in to be unremarkable. Patient underwent left hip surgery on 12/10/2021 with orthopedics. Echocardiogram in the office 09/2021 revealed EF 52%, moderate mitral regurgitat ion, severe tricuspid regurgitation, moderate aortic regurgitation On 12/10- Initially was attempted on Cardizem drip however blood pressure is borderline with systolics down to the 70s and 80s and therefore was given amiodarone. Patient converted and currently in sinus rhythm at that time. Her home metoprolol 50 mg twice a day has been added back. 12/15 Overnight patient went back into each fibrillation with rapid ventricular response. She was started on IV Cardizem drip. Denies any chest pain or pressure. Denies any shortness breath. Currently patient remains in atrial fibrillation with heart rates [id number]. This morning BP 95/52, heart rate 110. 12/16 Patient seen and examined at bedside, distress. She converted to sinus mechanism with heart rate 70s80s. She is currently maintained on amiodarone 200 mg twice a day, metoprolol titrate 50 mg twice a day. Her IV Cardizem has s topped. She denies any chest pain or shortness of breath. Blood pressure 117/72 PHYSICAL EXAMINATION Vital signs reviewed. CONSTITUTIONAL: No apparent distress. HEENT: Neck Supple No JVD. CHEST EXAMINATION: Lungs are clear to auscultation. No chest wall tenderness is noted on palpation or with deep breathing. HEART EXAMINATION: Irregular rate and rhythm. S1, S2 heard. Diastolic murmur at base, systolic murmur noted at apex ABDOMEN: Soft, nontender. Positive bowel sounds. EXTREMITIES: 2+ peripheral pulses, no lower extremity edema and no calf tenderness. NEUROLOGIC EXAMINATION: Patient is awake, alert and oriented x3. ASSESSMENT Paroxysmal atrial fibrillation with RVR not on anticoagulation secondary to GI bleed, in process of having watchman device placement Status post fall and left femur fracture s/p left hip open reduction internal fixation for subtrochanteric peritrochanteric femur fracture with intramedullary rodding on 12/10/21 History of permanent pacemaker History of GI bleed PLAN: Continue amiodarone 200mg BID for 1 month, then amiodarone 200mg daily Patient being worked up outpatient for possible watchman. No anticoagulation at this point. Continue with metoprolol. From cardiology perspective, patient stable for discharge. Close follow up outpatient with Dr. Penn Nurse practitioner note has been reviewed by physician. Signing provider agrees with the documented findings, assessment, and plan of care. Objective - Vital Signs Vital signs: Vital Signs Temp 97.8 F 12/16/21 08:00 Pulse 82 12/16/21 08:00 Resp 18 12/16/21 08:00 BP 117/72 12/16/21 08:00 Pulse Ox 98 12/16/21 08:00 FiO2 Intake & Output 12/15/21 12/16/21 12/16/21 18:59 06:59 18:59 Intake Total 118 Balance 118 Weight 43.545 kg Intake: Oral 118 Other: Voiding Method Bedside Commode Bedside Commode Bedside Commode # Voids 1 # Bowel Movements 1 - Labs CBC & Chem 7: 12/16/21 07:52 12/16/21 07:52 Labs: Abnormal Lab Results - Last 24 Hours (Table) 12/15/21 12/15/21 12/16/21 Range/Units 10:44 10:44 07:52 WBC 11.1 H (3.8-10.6) k/uL RBC 3.10 L 2.91 L (3.80-5.40) m/uL Hgb 9.8 L 9.4 L (11.4-16.0) gm/dL Hct 30.6 L 29.5 L (34.0-46.0) % MCV 101.3 H (80.0-100.0) fL RDW 18.0 H 18.7 H (11.5-15.5) % Neutrophils # 8.3 H (1.3-7.7) k/uL Sodium 136 L (137-145) mmol/L Potassium 5.3 H (3.5-5.1) mmol/L Glucose 122 H (74-99) mg/dL Calcium 8.3 L (8.4-10.2) mg/dL
[2021-12-16 11:23] VITALS: PULSE 76
--- NOTE | 2021-12-16 15:06 | P.PN ---
Subjective Progress Note Date: 12/16/21 - Reason for Consult Consult date: 12/09/21 Medical management recent fall with left femur fracture - History of Present Illness This is a pleasant 76-year-old female who presented to the emergency department via EMS after falling at home. Patient reports to tripping and falling landing directly on her left hip and immediately being unable to pay her weight or move her leg. Patient denies any dizziness or lightheadedness or syncope prior to the fall and reports no head injury on landing. Patient follows with Dr. Wray in the outpatient setting and has history of atrial fibrillation, coronary artery disease, chest pain/angina, COPD, fibromyalgia, gastroesophageal reflux disease, GI bleed history, hypertension, myocardial infarction, osteoarthritis, hypothyroidism, and severe osteoporosis. Patient with a cardiac history as history of atrial fibrillation and unable to tolerate oral anticoagulant with severe ALLERGIC reactions and has not been on any anticoagulation and follows with Dr. Penn in the outpatient setting. Patient is scheduled tentatively for left hip surgery with orthopedics on 12/10/2021. Patient does have a pacemaker placed and also is scheduled to receive a watchman device on January 04 at [facility]. X-ray in the emergency department shows an oblique displaced subtrochanteric fracture of the left femur with 50% lateral displacement and no dislocation of the hip joint. Chest x-ray shows no heart failure a noted pacemaker and no pleural effusions. EKG reveals sinus rhythm with a rate of 86 12/10/2021 Patient is seen today and is going down for left leg surgical repair for her femur fracture. Patient went into afib with rvr yesterday evening and initially placed on IV cardizem although unable to tolerate for long and having low blood pressures. Patient hemoglobin is 6.8 this am and will order 2 units of PRBC. Recommend evening labs and will follow up after surgery. Patient is afebrile and NPO for the procedure. Patient has converted to sinus and recommend close telemetry monitoring. Resume home cardiac medications. 12/11/2021 Patient is seen this morning and reports she was able to sit at the side of the bed. PT/OT to evaluate in the am. Patient is non-weightbearing to the left lower extremity. Patient on iv hydration and recommend to discontinue as patient is eating and drinking. Patient reports some occasional nausea with no vomiting. Patient is passing gas with positive bowel sounds noted. Patient is continued with indwelling alvarado catheter for now. Plan is for ecf for continued PT/OT therapy. Patient is afebrile and denies chest pain or palpitations. Currently sinus rhythm. Orthopedics working on ECF. Will add incentive spirometer and encourage to use at least 10 times per hour while awake. Also recommend compression stockings and increased activity as tolerated. 12/12/2021 Patient is seen today with multiple family members at the bedside. Patient is sitting up in the chair and able to work with physical therapy. Orthopedics working on discharge planning to ECF. Patient is continuing to request IV pain medications and encouraged patient to limit the use of IV dilaudid and continue with oral pain medications. Recommend scheduled tylenol. Patient is afebrile and denies chest pain or shortness of breath. Patient is tolerating diet with no rep orts of nausea or vomiting noted. Encouraged incentive spirometer use and increased activity as tolerated. Patient is to be non-weightbearing to the left lower extremity per ortho. Encouraged oral intake. 12/13/2021 Patient is seen with daughter at the bedside. Patient is reporting that she is having some increased feeling of shortness of breath due to pain and reports the pain is at the upper right back. Rib and chest xray ordered. Patient is on asa high dose for dvt prophylaxis as patient is allergic to oral anticoagulation. Patient scheduled for watchman procedure in December. Will add dimer and if positive suggest CTA. Venous dopplers of b/l lower extremities ordered as well. Encouraged incentive spirometer use and increased activity as tolerated. Patient reports no BM and will add lactulose TID until bowel movement. 12/14/2021 Patient is seen and evaluated in follow-up this morning continuing to have pain and requesting IV Dilaudid for pain relief. CTA showing some groundglass opacification disease and cannot rule out infectious process and will add IV Zosyn every 8 and monitor closely. Patient is afebrile and denies chest pain or shortness of breath. WBC is 10.3 with a hemoglobin of 9.9 and BMP is reviewed and within normal limits. COVID-19 testing was negative. Encouraged incentive spirometer use and continue to increase activity as tolerated with nonweightbea ring per orthopedic guidelines. Patient was given lactulose as patient was reporting no bowel movement although is now having bowel movements and will discontinue lactulose. 12/15/2021 Patient is seen this morning and went into atrial fibrillation with rvr and placed on IV cardizem. Cardiology has been asked to re-evaluate and being placed on oral amiodarone. Patient is on telemetry monitoring and has recently converted and cardizem being discontinued. Blood pressures soft in the 90's systolic. Patient is continued on IV zosyn and will continue for now. Encouraged incentive spirometer and increased activity as tolerated. ECF being planned by orthopedics. Patient is afebrile and denies worsening shortness of breath or chest pains. No reports of nausea or vomiting and tolerating diet. Recommend repeat am labs. 12/16/2021 Patient is seen this morning and is scheduled for discharge and patient will be going to [facility] ER for continued PT/OT therapy per orthopedic services. Patient is status post left femur fracture with thu fixation and repair and is nonweightbearing to this lower extremity. Patient has been evaluated by cardiology and will follow-up with her metal furniture glazier in the outpatient setting for possible watchman procedure as patient is unable to tolerate oral anticoagu lant. Per orthopedics patient will continue on aspirin twice daily and close outpatient follow-up. Patient pain management under better control and recommend continue current medication regimen per orthopedics. Patient will also continue with a short course of oral Augmentin to complete the course and recommend to continue with incentive spirometer use and breathing inhalational treatments when necessary and scheduled. Encouraged oral intake and patient is also to continue with ensure supplements 3 times a day between meals. Patient is afebrile denies chest pain or shortness of breath. Patient feels she is ready for discharge today. Review of systems: Constitutional: no reports of fatigue, no fever, or chills Cardiovascular: No reports of chest pain or palpitations Respiratory: No reports of worsening shortness of breath GI: no reports of nausea today, reports having bowel movements : No reports of dysuria or retention Neurovascular: reports of generalized weakness PHYSICAL EXAMINATION: GENERAL: The patient is alert and oriented x4, Well developed, well nourished. Thin built HEENT: Pupils are round and equally reacting to light. EOMI. no scleral icterus. No conjunctival pallor. Normocephalic, atraumatic. No pharyngeal erythema. No thyromegaly. CARDIOVASCULAR: S1 and S2 muffled, irregular PULMONARY: diminished breath sounds bilaterally with no wheezing or rhonchi noted. ABDOMEN: soft. Nontender on exam. non-distended, normoactive bowel sounds. No palpable organomegaly. MUSCULOSKELETAL: No joint swelling or deformity. Left hip surgical site is dry and intact EXTREMITIES: No cyanosis, clubbing, or pedal edema. mild generalized edema noted bilaterally NEUROLOGICAL: Gross neurological examination did not reveal any focal deficits. Diffuse weakness SKIN: No rashes. Assessment: Mechanical fall with left hip pain status post ORIF intramedullary thu fixation of the left subtrochanteric femur fracture Paroxysmal atrial fibrillation, not on anticoagulation as patient had an ALLERGIC reaction scheduled outpatient in December for a watchman device, currently rate controlled on oral amiodarone and metoprolol Groundglass opacification is noted on CT with no evidence of PE, possible pneumonia Elevated d-dimer with no evidence of PE noted on CTA Acute kidney injury, prerenal, improved Chronic anemia Coronary artery disease COPD, not in exacerbation History of fibromyalgia gastroesophageal reflux disease Hypertension Osteoarthritis Hypothyroidism GI prophylaxis DVT prophylaxis Full code Plan: Recommend to continue with current medications and management per orthopedic services. Cardiology has placed the patient on oral amiodarone along with metoprolol and will continue on aspirin 325 daily and close outpatient follow-up with her metal furniture glazier for possible watchman procedure that is scheduled tentatively and on December. Patient will continue short course of oral Augmentin twice daily for the next 3 days to complete the course and encouraged breathing inhalational treatments 3 times a day and when necessary along with continued incentive spirometer use at least 10 times every hour while awake. Patient encouraged to follow-up closely with her primary care provider as well on discharge. We will continue to follow with orthopedics during hospitalization. Patient is being discharged to [facility] today. Thank you for this consultation The impression and plan of care has been dictated by Lauryn Briscoe, nurse practitioner as directed. Dr. Jose MD I have performed a history and examination and MDM of this patient, discussed the same with the dictator, and agree with the dictator's assessment and plan as written ,documented as a scribe. Based on total visit time, I have performed more than 50% of the visit. Any additional findings or plans will be noted. Objective - Vital Signs Vital signs: Vital Signs Temp 97.8 F 12/16/21 08:00 Pulse 82 12/16/21 08:00 Resp 18 12/16/21 08:00 BP 117/72 12/16/21 08:00 Pulse Ox 98 12/16/21 08:00 FiO2 Intake & Output 12/15/21 12/16/21 12/16/21 18:59 06:59 18:59 Intake Total 118 Balance 118 Weight 43.545 kg Intake: Oral 118 Other: Voiding Method Bedside Commode Bedside Commode Bedside Commode # Voids 1 # Bowel Movements 1 - Labs CBC & Chem 7: 12/16/21 07:52 12/16/21 07:52 Labs: Abnormal Lab Results - Last 24 Hours (Table) 12/15/21 12/15/21 12/16/21 Range/Units 10:44 10:44 07:52 WBC 11.1 H (3.8-10.6) k/uL RBC 3.10 L 2.91 L (3.80-5.40) m/uL Hgb 9.8 L 9.4 L (11.4-16.0) gm/dL Hct 30.6 L 29.5 L (34.0-46.0) % MCV 101.3 H (80.0-100.0) fL RDW 18.0 H 18.7 H (11.5-15.5) % Neutrophils # 8.3 H (1.3-7.7) k/uL Sodium 136 L (137-145) mmol/L Potassium 5.3 H (3.5-5.1) mmol/L Glucose 122 H (74-99) mg/dL Calcium 8.3 L (8.4-10.2) mg/dL
--- NOTE | 2021-12-19 16:38 | CDI ---
Documentation Clarification Form Date: 12/19/2021 04:18:19 PM From: Yael Chaudhary Phone: Admit Date: 12/09/2021 03:32:00 AM Patient Name: Mavis Marquez Visit Number: [id number] Discharge Date: 12/16/2021 03:38:00 PM ATTENTION: The Clinical Documentation Specialists (CDI) and [facility] Coding Staff appreciate your assistance in clarifying documentation. Please respond to the clarification below the line at the bottom and electronically sign. The CDI & [facility] Coding staff will review the response and follow-up if needed. Please note: Queries are made part of the Legal Health Record. If you have any questions, please contact the author of this message via ITS. Dr. Cindy Zhao Anemia is documented in the Consult Note 12/09/21. Additional specificity regarding the [type, acuity] of anemia is requested. History/Risk Factors: 76yo F, sustained left subtrochanteric femur fx sp ORIF, hypotension due to Cardizem, COPD w PNA, A Fib, Fibromyalgia, Hx GIB, Hx [place] Clinical indicators: Chronic anemia, with a drop in hemoglobin to 6.8 pre surgical and given 2 units now 9.1 today no active bleeding noted per Lauryn Briscoe DIRECTOR OF CASEWORK-C 12/11/21 Progress Note Hgb 10.5 L; Hct 33.6 L 12/09/21 Hgb 6.8 L* D; Hct 21.6 L 12/11/21 Hgb 9.8 L 9.4 L; Hct 30.6 L 29.5 L 12/15/21 Treatment: transfuse 2 units of prbcand recommend repeat labs this evening Please clarify the type(s) and acuity of anemia(s): [ x ] Acute blood loss anemia [ ] Acute on chronic blood loss anemia [ ] Chronic blood loss anemia [ ] Iron deficiency anemia [ ] Unable to determine [ ] Other, please specify (Template Last Revised: May 2020) MTDD
== END 2021-12-16 15:38 | DRG 480 ==
LOC: EC 00:26 → 4SSUR 03:32 → 3SCARD 16:58
PROVIDERS: ADMIT Orthopaedic Surgery Hand Surgery; ATTEND Orthopaedic Surgery Hand Surgery
PROC: 30233N1 Transfusion of Nonautologous Red Blood Cells into Peripheral Vein, Percutaneous Approach (ICD-10-PCS; 2021-12-10)
PROC: 0QS706Z Reposition Left Upper Femur with Intramedullary Internal Fixation Device, Open Approach (ICD-10-PCS; principal; 2021-12-10 13:35)
DX: S72.22XA Displaced subtrochanteric fracture of left femur, initial encounter for closed fracture (principal); J18.9 Pneumonia, unspecified organism; K92.2 Gastrointestinal hemorrhage, unspecified; N17.9 Acute kidney failure, unspecified; J44.0 Chronic obstructive pulmonary disease with (acute) lower respiratory infection; D62 Acute posthemorrhagic anemia; I10 Essential (primary) hypertension; E03.9 Hypothyroidism, unspecified; I08.3 Combined rheumatic disorders of mitral, aortic and tricuspid valves; I49.5 Sick sinus syndrome; I95.2 Hypotension due to drugs; I48.0 Paroxysmal atrial fibrillation; M81.0 Age-related osteoporosis without current pathological fracture; W01.0XXA Fall on same level from slipping, tripping and stumbling without subsequent striking against object, initial encounter; I25.10 Atherosclerotic heart disease of native coronary artery without angina pectoris; M79.7 Fibromyalgia; R77.8 Other specified abnormalities of plasma proteins; K21.9 Gastro-esophageal reflux disease without esophagitis; T46.1X5A Adverse effect of calcium-channel blockers, initial encounter; K59.09 Other constipation; M40.204 Unspecified kyphosis, thoracic region; Z20.822 Contact with and (suspected) exposure to COVID-19; R79.89 Other specified abnormal findings of blood chemistry; R01.1 Cardiac murmur, unspecified; M25.511 Pain in right shoulder; M25.512 Pain in left shoulder; G89.29 Other chronic pain; M19.90 Unspecified osteoarthritis, unspecified site; Z79.899 Other long term (current) drug therapy; Z79.890 Hormone replacement therapy; Z91.048 Other nonmedicinal substance allergy status; Z88.8 Allergy status to other drugs, medicaments and biological substances; Z88.2 Allergy status to sulfonamides; Y92.009 Unspecified place in unspecified non-institutional (private) residence as the place of occurrence of the external cause; Z86.19 Personal history of other infectious and parasitic diseases; Z88.1 Allergy status to other antibiotic agents; I25.2 Old myocardial infarction; Z95.0 Presence of cardiac pacemaker; Z87.11 Personal history of peptic ulcer disease; Z91.81 History of falling; Z90.49 Acquired absence of other specified parts of digestive tract; Z90.89 Acquired absence of other organs; Z87.81 Personal history of (healed) traumatic fracture; Z98.890 Other specified postprocedural states; Z90.710 Acquired absence of both cervix and uterus; Z98.61 Coronary angioplasty status; Z79.82 Long term (current) use of aspirin; Z80.8 Family history of malignant neoplasm of other organs or systems; Z82.5 Family history of asthma and other chronic lower respiratory diseases; Z82.61 Family history of arthritis
CPT/HCPCS: 36415; 36430; 71045; 71275; 80048; 80053; 81003; 85025; 85027; 85379; 86850; 86900; 86901; 86920; 87635; 88304; 88311; 93005; 93970; 94640; 94760; 96361; 96374; 96376; 99285

== ENCOUNTER 2021-12-26 22:39 | Inpatient (IN) | payer MEDICARE, OTHER ==
[2021-12-26] MEDS ORDERED: SODIUM CHLORIDE 0.9% 500 ML 500 ML IV STA (22:43)
[2021-12-26] MEDS ORDERED: SODIUM CHLORIDE 0.9% 1,000 ML IV STA (22:43)
--- NOTE | 2021-12-26 22:45 | ED ---
Weakness HPI - General Stated complaint: Weakness Time Seen by Provider: 12/26/21 22:43 Source: EMS, RN notes reviewed, old records reviewed Limitations: no limitations - History of Present Illness Initial comments: This is a 76-year-old poor story presented with EMS. Patient presents for weakness known history of similar symptoms in the past. Patient is a poor historian history obtained from EMS MD Complaint: generalized weakness, focal weakness, numbness, tingling, lack of energy, difficulty walking -: days(s) Location: generalized Severity: moderate Severity scale (1-10): 6 Quality: tingling, numbness Consistency: constant Improves with: none Worsens with: none Context: recent illness, history of similar Associated Symptoms: confusion, fever/chills, loss of appetite, nausea/vomiting, shortness of breath - Related Data Home Medications Medication Instructions Recorded Confirmed SUMAtriptan succinate [Imitrex] 50 mg PO BID PRN 02/15/16 12/09/21 Ergocalciferol (Vitamin D2) 50,000 unit PO FR 01/14/18 12/09/21 [Vitamin D2] Dicyclomine [Bentyl] 10 mg PO TID 05/10/19 12/09/21 Denosumab [Prolia] 60 mg SQ Q180D 02/06/20 12/09/21 Furosemide [Lasix] 80 mg PO BID 02/06/20 12/09/21 L.acidoph,Paracasei, B.lactis 1 cap PO DAILY 02/06/20 12/09/21 [Probiotic] Pantoprazole Sodium [Protonix] 40 mg PO BID 02/06/20 12/09/21 allopurinoL [Zyloprim] 50 mg PO DAILY 02/06/20 12/09/21 Metoprolol Tartrate [Lopressor] 50 mg PO BID 10/05/20 12/09/21 Albuterol Inhaler [Ventolin Hfa 2 puff INHALATION RT-Q4H PRN 08/04/21 12/09/21 Inhaler] Spironolactone [Aldactone] 25 mg PO DAILY 08/04/21 12/09/21 Amitriptyline HCl [Elavil] 25 mg PO HS 12/09/21 12/09/21 Diclofenac Sodium [Voltaren] 75 mg PO BID 12/09/21 12/09/21 Ergocalciferol [Vitamin D2 (1250 1,250 mcg PO Q7D 12/09/21 12/09/21 Mcg = 19183 Iu)] Levothyroxine Sodium 100 mcg PO AC-BRKFST 12/09/21 12/09/21 Magnesium Gluconate [Magonate] 750 mg PO DAILY 12/09/21 12/09/21 Menthol-Zinc Oxide Oint 1 applic TOPICAL DAILY 12/09/21 12/09/21 [Calmoseptine Ointment] Potassium Chloride [Potassium 40 meq PO BID 12/09/21 12/09/21 Chloride ER] calcitrioL [Calcitriol] 0.25 mcg PO Q7D 12/09/21 12/09/21 hydrOXYzine HCL [Atarax] 25 mg PO Q6H PRN 12/09/21 12/09/21 polyethylene glycoL 3350 [Miralax] 17 gm PO DAILY 12/09/21 12/09/21 Previous Rx's Medication Instructions Recorded Acetaminophen Tab [Tylenol] 650 mg PO Q4HR PRN tab 12/16/21 Amiodarone [Cordarone] 200 mg PO BID tab 12/16/21 Amoxic-Pot Clav 875-125Mg 1 tab PO Q12HR 3 Days #6 tab 12/16/21 [Augmentin 875-125] Aspirin 325 mg PO DAILY tab 12/16/21 HYDROcodone/APAP 10-325MG [[place] 1 each PO Q6H PRN #28 tab 12/16/21 10] Ipratropium-Albuterol Nebulize 3 ml INHALATION RT-TID each 12/16/21 [Duoneb 0.5 mg-3 mg/3 ml Soln] Ipratropium-Albuterol Nebulize 3 ml INHALATION RT-TID PRN each 12/16/21 [Duoneb 0.5 mg-3 mg/3 ml Soln] Lactulose [Cephulac] 20 gm PO TID PRN ml 12/16/21 Sennosides-Docusate Sodium 1 tab PO BID PRN #60 tablet 12/16/21 [Senokot-S] Allergies Allergy/AdvReac Type Severity Reaction Status Date / Time adhesive Allergy RASH FROM Verified 12/09/21 09:52 EKG STICKERS apixaban [From Eliquis] Allergy Rash/Hives Verified 12/09/21 09:52 celecoxib [From Celebrex] Allergy Rash/Hives Verified 12/09/21 09:52 sertraline HCl [From Zoloft] Allergy Rash/Hives Verified 12/09/21 09:52 sulfamethoxazole Allergy Anaphylaxis Verified 12/09/21 09:52 [From Bactrim] trimethoprim [From Bactrim] Allergy Anaphylaxis Verified 12/09/21 09:52 cholestyramine AdvReac DIZZY/CONFU Verified 12/09/21 09:52 SED Review of Systems ROS Statement: Those systems with pertinent positive or pertinent negative responses have been documented in the HPI. ROS Other: All systems not noted in ROS Statement are negative. Past Medical History Past Medical History: Atrial Fibrillation, Blood Disorder, Coronary Artery Disease (CAD), Chest Pain / Angina, COPD, Fibromyalgia, GERD/Reflux, GI Bleed, Hypertension, Myocardial Infarction (AL), Musculoskeletal Disorder, Osteoarthritis (OA), Thyroid Disorder Additional Past Medical History / Comment(s): Pacemaker for Syncope/Tachybrady Syndrome. Hx RHEUMATIC FEVER. Heart murmur, chronic back and bilateral shoulder pain. SEVERE OSTEOPROSIS, Vertigo, Degenerative Joint Disease, GI ulcers, esophagitis/esophageal stricture, partially blocked bile duct, PROBLEMS WITH SWALLOWING, "no symptoms of COPD." FALLS "Cannot lie down for long without having back pain." Last Myocardial Infarction Date:: 2002 History of Any Multi-Drug Resistant Organisms: None Reported Past Surgical History: Appendectomy, Cardiac Ablation, Cholecystectomy, Ear Surgery, Heart Catheterization, Hysterectomy, Orthopedic Surgery, Pacemaker, Tonsillectomy Additional Past Surgical History / Comment(s): ORIF LEFT LOWER ARM, HAS HARDWARE, numerous DILATATION OF ESOPHAGUS, biopsies were negative, colonoscopy, Pacemaker (ADAPTA) placed 07/07 at [facility], bilateral stapedectomies(stainless steel in both ears), Hiatal Hernia repair, inguinal and femoral hernia repairs, "cement placed in back, due to broken back/pelvis". Past Anesthesia/Blood Transfusion Reactions: Family History of Problems w/ Anesthesia, Motion Sickness, Postoperative Nausea & Vomiting (PONV) Additional Past Anesthesia/Blood Transfusion Reaction / Comment(s): No problems with prior blood transfusion. BROTHER HAS PONV. Type of Cardiac Device: Permanent Pacemaker Device Placement Date:: 06/2016 Past Psychological History: No Psychological Hx Reported Additional Psychological History / Comment(s): DENIES ANY HX OF PROBLEM Smoking Status: Never smoker Past Alcohol Use History: None Reported Additional Past Alcohol Use History / Comment(s): Lives alone Past Drug Use History: None Reported - Past Family History Brother(s) Family Medical History: Cancer Additional Family Medical History / Comment(s): Throat cancer. Father Family Medical History: Pneumonia Additional Family Medical History / Comment(s): EMPHYSEMA. Mother Family Medical History: COPD, Rheumatoid Arthritis (RA) Additional Family Medical History / Comment(s): EMPHYSEMA. General Exam General appearance: alert, in no apparent distress Head exam: Present: atraumatic, normocephalic, normal inspection Eye exam: Present: normal appearance, PERRL, EOMI. Absent: scleral icterus, conjunctival injection, periorbital swelling ENT exam: Present: normal exam, mucous membranes moist Neck exam: Present: normal inspection. Absent: tenderness, meningismus, lymphadenopathy Respiratory exam: Present: normal lung sounds bilaterally. Absent: respiratory distress, wheezes, rales, rhonchi, stridor Cardiovascular Exam: Present: regular rate, normal rhythm, normal heart sounds. Absent: systolic murmur, diastolic murmur, rubs, gallop, clicks GI/Abdominal exam: Present: soft, normal bowel sounds. Absent: distended, tenderness, guarding, rebound, rigid Extremities exam: Present: normal inspection, full ROM, normal capillary refill. Absent: tenderness, pedal edema, joint swelling, calf tenderness Back exam: Present: normal inspection Neurological exam: Present: alert, oriented X3, CN II-XII intact Psychiatric exam: Present: normal affect, normal mood Skin exam: Present: warm, dry, intact, normal color. Absent: rash Course Vital Signs 12/26/21 22:47 Temperature 97.8 F Pulse Rate 62 Respiratory 16 Rate Blood Pressure 107/44 O2 Sat by Pulse 100 Oximetry - Reevaluation(s) Reevaluation #1: 12/26/21 22:45 medical record is reviewed - Consultations Consultation #1: Spoke with vascular surgery for access regarding dialysis, nephrology regarding need for dialysis. Consultation #2: Spoke with Dr. Wong reevaluation he is agreeablehe EKG Findings - EKG Comments: EKG Findings:: EKG is a paced 51 UT 318 QRS 131 QTC 439 Medical Decision Making - Medical Decision Making 76 female in severe distress weakness severe hyperkalemia with renal failure. We'll treat patient's potassium here in the ER will set up for dialysis tomorrow is currently a paced rhythm but is protecting her heart rate - Lab Data Result diagrams: 12/26/21 23:07 Lab Results 12/26/21 12/26/21 12/26/21 Range/Units 23:07 23:07 23:07 Sodium 135 L (137-145) mmol/L Potassium 8.6 H* (3.5-5.1) mmol/L Chloride 106 (98-107) mmol/L Carbon Dioxide 14 L (22-30) mmol/L Anion Gap 15 mmol/L BUN 129 H* (7-17) mg/dL Creatinine 5.30 H (0.52-1.04) mg/dL Est GFR (CKD-EPI)AfAm 9 (>60 ml/min/1.73 sqM) Est GFR (CKD-EPI)NonAf 7 (>60 ml/min/1.73 sqM) Glucose 96 (74-99) mg/dL Plasma Lactic Acid Harjeet 1.3 (0.7-2.0) mmol/L Calcium 8.7 (8.4-10.2) mg/dL Phosphorus 7.6 H (2.5-4.5) mg/dL Magnesium 3.9 H (1.6-2.3) mg/dL Total Bilirubin 1.0 (0.2-1.3) mg/dL AST 26 (14-36) U/L ALT 17 (4-34) U/L Alkaline Phosphatase 349 H (38-126) U/L Troponin I <0.012 (0.000-0.034) ng/mL Total Protein 5.7 L (6.3-8.2) g/dL Albumin 2.9 L (3.5-5.0) g/dL Lipase 20 L (23-300) U/L - EKG Data -: EKG Interpreted by Me (EKG is a paced thythm Rate 61 QRS is 181 2 QTc is 459) Critical Care Time Critical Care Time: Yes Total Critical Care Time: 31 Disposition Clinical Impression: Paced rhythm on monitoring engineer, Hyperkalemia, Uremia, Renal insufficiency, ARF (acute renal failure) Disposition: ADMITTED IP TO THIS HOSP Condition: Critical Is patient prescribed a controlled substance at d/c from ED?: No Referrals: Elroy Wray DO [Primary Care Provider] - 1-2 days
[2021-12-26 23:25] LABS: Albumin 2.9 g/dL (3.5-5.0); Calcium 8.7 mg/dL (8.4-10.2); Magnesium 3.9 mg/dL (1.6-2.3); Phosphorus 7.6 mg/dL (2.5-4.5); Total Protein 5.7 g/dL (6.3-8.2)
[2021-12-26 23:35] LABS: Potassium 8.6 mmol/L (3.5-5.1)
[2021-12-26] MEDS ORDERED: SODIUM POLYSTYRENE SULFONATE 15 GM/60 ML BOTTLE PO STA (23:44)
[2021-12-26] MEDS ORDERED: SODIUM BICARB 8.4% 50 ML SYR (1 MEQ/ML) IV STA ×2 (23:44)
[2021-12-26] MEDS ORDERED: DEXTROSE 50% SYRINGE 50 ML IVP STA (23:44)
[2021-12-26] MEDS ORDERED: ALBUTEROL NEBULIZED 2.5 MG/3 ML INHALATION STA (23:44)
[2021-12-26] MEDS ORDERED: INSULIN REGULAR 100 UNIT/ML VIAL (IV) IV ONE (23:44)
[2021-12-26] MEDS ORDERED: CALCIUM GLUCONATE IN NACL 2 GM in SALINE 1 100ML.BAG IVPB ONE (23:44)
[2021-12-26 23:51] LABS: INR 0.9 (<1.2); Prothrombin Time 10.3 sec (9.0-12.0)
[2021-12-26] MEDS ORDERED: NALOXONE 0.4 MG/ML 1 ML VIAL IV PRN (23:52)
[2021-12-26] MEDS ORDERED: IPRATROPIUM-ALBUTEROL 3 ML NEB INHALATION PRN (23:53)
[2021-12-27 00:14] LABS: Anisocytosis Slight; HCT 33.9 % (34.0-46.0); HGB 10.5 gm/dL (11.4-16.0); Hypochromasia Moderate; MCH 31.8 pg (25.0-35.0); MCV 102.5 fL (80.0-100.0); Macrocytosis Moderate; Mean Platelet Volume 9.1; Platelet Count 507 k/uL (150-450); RBC 3.31 m/uL (3.80-5.40); RDW 17.1 % (11.5-15.5); WBC 11.4 k/uL (3.8-10.6)
[2021-12-27 01:31] LABS: Band Neutrophils % 35 %; Eosinophils # (M) 0.34 k/uL (0-0.7); Monocytes # (M) 0.91 k/uL (0-1.0); Neutrophils % (M) 42 %; Nucleated Red Blood Cells 0 /100 WBC (0-0); Total Cells Counted 200
[2021-12-27 01:34] LABS: Poikilocytosis (M) Present; Polychromasia Present
[2021-12-27] MEDS: MORPHINE SULFATE 4 MG/ML SYRINGE IV PRN (01:42)
[2021-12-27] MEDS ORDERED: ALBUTEROL NEB (CONC) 2.5 MG/0.5 ML INHALATION ONE (02:15)
[2021-12-27 05:52] LABS: Appearance,Urine Clear (Clear); Bilirubin,Urine Negative (Negative); Blood,Urine Negative (Negative); Color,Urine Yellow; Glucose,Urine (UA) Negative (Negative); Ketones,Urine Negative (Negative); Leukocyte Esterase,Urine Negative (Negative); Nitrite,Urine Negative (Negative); PH, Urine 5.5 (5.0-8.0); Protein,Urine Trace (Negative); Specific Gravity,Urine 1.012 (1.001-1.035)
[2021-12-27 06:13] LABS: Anisocytosis Slight; HCT 34.6 % (34.0-46.0); HGB 10.5 gm/dL (11.4-16.0); Hypochromasia Moderate; MCH 31.4 pg (25.0-35.0); MCHC 30.4 g/dL (31.0-37.0); MCV 103.2 fL (80.0-100.0); Macrocytosis Moderate; Mean Platelet Volume 8.3; Platelet Count 483 k/uL (150-450); RBC 3.35 m/uL (3.80-5.40); RDW 16.8 % (11.5-15.5); WBC 12.5 k/uL (3.8-10.6)
[2021-12-27 06:16] LABS: Albumin 2.9 g/dL (3.5-5.0); Calcium 9.1 mg/dL (8.4-10.2); Magnesium 3.7 mg/dL (1.6-2.3); Phosphorus 8.2 mg/dL (2.5-4.5); Total Bilirubin 0.9 mg/dL (0.2-1.3); Total Protein 5.6 g/dL (6.3-8.2)
[2021-12-27 06:37] LABS: Potassium 6.1 mmol/L (3.5-5.1)
[2021-12-27] MEDS ORDERED: DEXTROSE 50% SYRINGE 50 ML IVP ONE (07:03)
[2021-12-27] MEDS ORDERED: INSULIN REGULAR 100 UNIT/ML VIAL (IV) IV ONE (07:03)
[2021-12-27] MEDS ORDERED: CALCIUM GLUCONATE IN NACL 1 GM in SALINE 1 100ML.BAG IVPB ONE (07:15)
[2021-12-27 07:59] LABS: Band Neutrophils % 4 %; Basophils # (M) 0.13 k/uL (0-0.2); Metamyelocytes # (M) 0.25 k/uL (0); Metamyelocytes % 2 %; Monocytes # (M) 1.25 k/uL (0-1.0); Neutrophils % (M) 77 %; Nucleated Red Blood Cells 0 /100 WBC (0-0); Total Cells Counted 200
[2021-12-27 08:00] LABS: Toxic Granulation Present
--- NOTE | 2021-12-27 09:37 | P.GSCN ---
History of Present Illness Consult date: 12/27/21 Reason for Consult: Hemodialysis access Requesting physician: Rich Wong History of present illness: This a pleasant 76-year-old female who presented to the emergency department yesterday evening with reported weakness. She has a past medical history of atrial fibrillation with pacemaker, coronary artery disease, COPD, fibromyalgia, history of GI bleed with ulcer, hypertension, [place], thyroid disorder, and chronic back pain. The patient states she came in the hospital for increased weakness and fatigue. She states she has been following with Dr. Stanton for the last 4 months duration for a "bruised kidney" and has not needed dialysis in the past. Patient presented to the emergency department with a potassium of 8.6, BUN 129 creatinine, 5.3, vascular surgery was consulted for hemodialysis access. Patient does have a history of bilateral inguinal hernia repair 1-2 years ago. She currently denies any chest pain, shortness of breath, nausea or vomiting. She is answering questions appropriately. She states she has been voiding without difficulty. She does complain of chronic leg and back pain. Today's labs: WBC 12.5 hemoglobin 10.5 hematocrit 30 platelet count 483,000 Sodium 139 potassium 6.1 BUN 127 creatinine 5.2 magnesium 3.7 Review of Systems A 14 point review systems was completed all pertinent positives and negatives as stated in the HPI. Past Medical History Past Medical History: Atrial Fibrillation, Blood Disorder, Coronary Artery Disease (CAD), Chest Pain / Angina, COPD, Fibromyalgia, GERD/Reflux, GI Bleed, Hypertension, Myocardial Infarction ([place]), Musculoskeletal Disorder, Osteoart hritis (OA), Thyroid Disorder Additional Past Medical History / Comment(s): Pacemaker for Syncope/Tachybrady Syndrome. Hx RHEUMATIC FEVER. Heart murmur, chronic back and bilateral shoulder pain. SEVERE OSTEOPROSIS, Vertigo, Degenerative Joint Disease, GI ulcers, esophagitis/esophageal stricture, partially blocked bile duct, PROBLEMS WITH SWALLOWING, "no symptoms of COPD." FALLS "Cannot lie down for long without having back pain." Last Myocardial Infarction Date:: 2002 History of Any Multi-Drug Resistant Organisms: None Reported Past Surgical History: Appendectomy, Cardiac Ablation, Cholecystectomy, Ear Surgery, Heart Catheterization, Hysterectomy, Orthopedic Surgery, Pacemaker, Tonsillectomy Additional Past Surgical History / Comment(s): ORIF LEFT LOWER ARM, HAS KIR[place]AND RDWARE, numerous DILATATION OF ESOPHAGUS, biopsies were negative, colonoscopy, Pacemaker (ADAPTA) placed 07/07 at [facility], bilateral stapedectomies(stainless steel in both ears), Hiatal Hernia repair, inguinal and femoral hernia repairs, "cement placed in back, due to broken back/pelvis". Left Femur Surgery 12/09/21 Past Anesthesia/Blood Transfusion Reactions: Family History of Problems w/ Anesthesia, Motion Sickness, Postoperative Nausea & Vomiting (PONV) Additional Past Anesthesia/Blood Transfusion Reaction / Comm: No problems with prior blood transfusion. BROTHER HAS PONV. Type of Cardiac Device: Permanent Pacemaker Device Placement Date:: 06/2016 Past Psychological History: No Psychological Hx Reported Additional Psychological History / Comment(s): DENIES ANY HX OF PROBLEM Smoking Status: Never smoker Past Alcohol Use History: None Reported Additional Past Alcohol Use History / Comment(s): Lives alone Past Drug Use History: None Reported - Past Family History Brother(s) Family Medical History: Cancer Additional Family Medical History / Comment(s): Throat cancer. Father Family Medical History: Pneumonia Additional Family Medical History / Comment(s): EMPHYSEMA. Mother Family Medical History: COPD, Rheumatoid Arthritis (RA) Additional Family Medical History / Comment(s): EMPHYSEMA. Medications and Allergies Home Medications Medication Instructions Recorded Confirmed Type SUMAtriptan succinate [Imitrex] 50 mg PO BID PRN 02/15/16 12/27/21 History Dicyclomine [Bentyl] 10 mg PO TID@0600,1400,2200 05/10/19 12/27/21 History Furosemide [Lasix] 40 mg PO DAILY@1500 02/06/20 12/27/21 History L.acidoph,Paracasei, B.lactis 1 cap PO DAILY@1700 02/06/20 12/27/21 History [Probiotic] allopurinoL [Zyloprim] 50 mg PO DAILY 02/06/20 12/27/21 History Metoprolol Tartrate [Lopressor] 50 mg PO BID@0800,1700 10/05/20 12/27/21 History Albuterol Inhaler [Ventolin Hfa 2 puff INHALATION RT-Q4H PRN 08/04/21 12/27/21 History Inhaler] Spironolactone [Aldactone] 25 mg PO DAILY 08/04/21 12/27/21 History Diclofenac Sodium [Voltaren] 75 mg PO BID@0800,1700 12/09/21 12/27/21 History Ergocalciferol [Vitamin D2 (1250 1,250 mcg PO FR 12/09/21 12/27/21 History Mcg = 73874 Iu)] Levothyroxine Sodium 100 mcg PO DAILY@0600 12/09/21 12/27/21 History Magnesium Gluconate [Magonate] 750 mg PO DAILY@1700 12/09/21 12/27/21 History calcitrioL [Calcitriol] 0.25 mcg PO FR 12/09/21 12/27/21 History hydrOXYzine HCL [Atarax] 25 mg PO Q6H PRN 12/09/21 12/27/21 History polyethylene glycoL 3350 [Miralax] 17 gm PO DAILY 12/09/21 12/27/21 History Acetaminophen Tab [Tylenol] 650 mg PO Q4HR PRN tab 12/16/21 12/27/21 Rx Ipratropium-Albuterol Nebulize 3 ml INHALATION RT-TID each 12/16/21 12/27/21 Rx [Duoneb 0.5 mg-3 mg/3 ml Soln] Lactulose [Cephulac] 20 gm PO TID PRN ml 12/16/21 12/27/21 Rx Amiodarone [Cordarone] See Taper PO DIRECTED 12/27/21 12/27/21 History Aspirin 325 mg PO DAILY@0 12/27/21 12/27/21 History Ensure Enlive 237 ml PO TID@0800,1200,1700 12/27/21 12/27/21 History Furosemide [Lasix] 80 mg PO DAILY@0612/27/21 12/27/21 History HYDROcodone/APAP 10-325MG [[place] 1 tab PO Q6H PRN 12/27/21 12/27/21 History 10] Ipratropium-Albuterol Nebulize 3 ml INHALATION RT-TID PRN 12/27/21 12/27/21 History [Duoneb 0.5 mg-3 mg/3 ml Soln] Magnesium Hydroxide [Milk of 7,200 mg PO DAILY PRN 12/27/21 12/27/21 History Magnesia Concentrate] Melatonin 1 mg PO HS 12/27/21 12/27/21 History Na Phos,M-B/Na Phos,Di-Ba [Fleet 133 ml RECTAL DAILY PRN 12/27/21 12/27/21 History Adult] Pantoprazole [Protonix] 40 mg PO BID@0800,1700 12/27/21 12/27/21 History Potassium Chloride [Klor-Con M20] 20 meq PO DAILY@1700 12/27/21 12/27/21 History Potassium Chloride [Klor-Con M20] 40 meq PO DAILY 12/27/21 12/27/21 History Sennosides-Docusate Sodium 1 tab PO HS 12/27/21 12/27/21 History [Senokot-S] Triamcinolone 0.5% Ointment 1 applic TOPICAL BID 12/27/21 12/27/21 History bisacodyL [Dulcolax] 10 mg RECTAL DAILY PRN 12/27/21 12/27/21 History Allergies Allergy/AdvReac Type Severity Reaction Status Date / Time adhesive Allergy RASH FROM Verified 12/27/21 06:51 EKG STICKERS apixaban [From Eliquis] Allergy Rash/Hives Verified 12/27/21 06:51 celecoxib [From Celebrex] Allergy Rash/Hives Verified 12/27/21 06:51 sertraline HCl [From Zoloft] Allergy Rash/Hives Verified 12/27/21 06:51 sulfamethoxazole Allergy Anaphylaxis Verified 12/27/21 06:51 [From Bactrim] trimethoprim [From Bactrim] Allergy Anaphylaxis Verified 12/27/21 06:51 cholestyramine AdvReac DIZZY/CONFU Verified 12/27/21 06:51 SED Surgical - Exam Vital Signs Temp Pulse Resp BP Pulse Ox 97.8 F 62 16 107/44 100 12/26/21 22:47 12/26/21 22:47 12/26/21 22:47 12/26/21 22:47 12/26/21 22:47 General appearance: The patient is alert, oriented, appears in no acute distress. HET: Head is normocephalic and atraumatic. Pupils are equal and reactive. Neck: Supple without lymphadenopathy. Trachea midline. Heart: S1 S2. Regular rate and rhythm. Lungs: Clear to auscultation bilaterally. Abdomen: Soft, nontender, nondistended. Extremities: Normal skin color and turgor. Neurological: No focal deficits. Results - Labs 12/27/21 05:36 12/27/21 05:36 Abnormal Lab Results - Last 24 Hours (Table) 12/26/21 12/26/21 12/27/21 Range/Units 23:07 23:07 05:00 WBC 11.4 H (3.8-10.6) k/uL RBC 3.31 L (3.80-5.40) m/uL Hgb 10.5 L (11.4-16.0) gm/dL Hct 33.9 L (34.0-46.0) % MCV 102.5 H (80.0-100.0) fL MCHC (31.0-37.0) g/dL RDW 17.1 H (11.5-15.5) % Plt Count 507 H (150-450) k/uL Neutrophils # (Manual) 8.70 H (1.3-7.7) k/uL Monocytes # (Manual) (0-1.0) k/uL Metamyelocytes # (Man) (0) k/uL Sodium 135 L (137-145) mmol/L Potassium 8.6 H* (3.5-5.1) mmol/L Carbon Dioxide 14 L (22-30) mmol/L BUN 129 H* (7-17) mg/dL Creatinine 5.30 H (0.52-1.04) mg/dL Glucose (74-99) mg/dL Phosphorus 7.6 H (2.5-4.5) mg/dL Magnesium 3.9 H (1.6-2.3) mg/dL Alkaline Phosphatase 349 H (38-126) U/L Total Protein 5.7 L (6.3-8.2) g/dL Albumin 2.9 L (3.5-5.0) g/dL Lipase 20 L (23-300) U/L Urine Protein Trace H (Negative) 12/27/21 12/27/21 Range/Units 05:36 05:36 WBC 12.5 H (3.8-10.6) k/uL RBC 3.35 L (3.80-5.40) m/uL Hgb 10.5 L (11.4-16.0) gm/dL Hct (34.0-46.0) % MCV 103.2 H (80.0-100.0) fL MCHC 30.4 L (31.0-37.0) g/dL RDW 16.8 H (11.5-15.5) % Plt Count 483 H (150-450) k/uL Neutrophils # (Manual) 10.10 H (1.3-7.7) k/uL Monocytes # (Manual) 1.25 H (0-1.0) k/uL Metamyelocytes # (Man) 0.25 H (0) k/uL Sodium (137-145) mmol/L Potassium 6.1 H* (3.5-5.1) mmol/L Carbon Dioxide 19 L (22-30) mmol/L BUN 127 H* (7-17) mg/dL Creatinine 5.24 H (0.52-1.04) mg/dL Glucose 106 H (74-99) mg/dL Phosphorus 8.2 H (2.5-4.5) mg/dL Magnesium 3.7 H (1.6-2.3) mg/dL Alkaline Phosphatase 368 H (38-126) U/L Total Protein 5.6 L (6.3-8.2) g/dL Albumin 2.9 L (3.5-5.0) g/dL Lipase (23-300) U/L Urine Protein (Negative) Diabetes panel 12/26/21 12/27/21 Range/Units 23:07 05:36 Sodium 135 L 139 (137-145) mmol/L Potassium 8.6 H* 6.1 H* (3.5-5.1) mmol/L Chloride 106 103 (98-107) mmol/L Carbon Dioxide 14 L 19 L (22-30) mmol/L BUN 129 H* 127 H* (7-17) mg/dL Creatinine 5.30 H 5.24 H (0.52-1.04) mg/dL Glucose 96 106 H (74-99) mg/dL Calcium 8.7 9.1 (8.4-10.2) mg/dL AST 26 21 (14-36) U/L ALT 17 16 (4-34) U/L Alkaline Phosphatase 349 H 368 H (38-126) U/L Total Protein 5.7 L 5.6 L (6.3-8.2) g/dL Albumin 2.9 L 2.9 L (3.5-5.0) g/dL Thyroid panel 12/26/21 Range/Units 23:07 TSH 4.200 (0.465-4.680) mIU/L Calcium panel 12/26/21 12/27/21 Range/Units 23:07 05:36 Calcium 8.7 9.1 (8.4-10.2) mg/dL Phosphorus 7.6 H 8.2 H (2.5-4.5) mg/dL Albumin 2.9 L 2.9 L (3.5-5.0) g/dL Pituitary panel 12/26/21 12/27/21 Range/Units 23:07 05:36 Sodium 135 L 139 (137-145) mmol/L Potassium 8.6 H* 6.1 H* (3.5-5.1) mmol/L Chloride 106 103 (98-107) mmol/L Carbon Dioxide 14 L 19 L (22-30) mmol/L BUN 129 H* 127 H* (7-17) mg/dL Creatinine 5.30 H 5.24 H (0.52-1.04) mg/dL Glucose 96 106 H (74-99) mg/dL Calcium 8.7 9.1 (8.4-10.2) mg/dL TSH 4.200 (0.465-4.680) mIU/L Adrenal panel 12/26/21 12/27/21 Range/Units 23:07 05:36 Sodium 135 L 139 (137-145) mmol/L Potassium 8.6 H* 6.1 H* (3.5-5.1) mmol/L Chloride 106 103 (98-107) mmol/L Carbon Dioxide 14 L 19 L (22-30) mmol/L BUN 129 H* 127 H* (7-17) mg/dL Creatinine 5.30 H 5.24 H (0.52-1.04) mg/dL Glucose 96 106 H (74-99) mg/dL Calcium 8.7 9.1 (8.4-10.2) mg/dL Total Bilirubin 1.0 0.9 (0.2-1.3) mg/dL AST 26 21 (14-36) U/L ALT 17 16 (4-34) U/L Alkaline Phosphatase 349 H 368 H (38-126) U/L Total Protein 5.7 L 5.6 L (6.3-8.2) g/dL Albumin 2.9 L 2.9 L (3.5-5.0) g/dL Assessment and Plan Assessment: 1. Acute kidney injury 2. Hyperkalemia Plan: Patient was discussed with Dr. Stanton from nephrology and she recommends waiting on placing temporary hemodialysis catheter as potassium is improving. Continue with recommendations from nephrology. We will be on standby if needed for hemodialysis access. Thank you for this consultation, we will continue to follow. The impression and plan of care has been dictated as directed. I performed a history and examination of this patient, discussed the same with the dictator. I agree with the dictator's note ,documented as a scribe. Any additional findings or plans will be noted.
[2021-12-27] MEDS ORDERED: ACETAMINOPHEN TAB 325 MG TAB PO PRN (10:39)
[2021-12-27] MEDS: LEVOTHYROXINE 100 MCG TAB PO SCH (11:07)
[2021-12-27] MEDS: allopurinoL 100 MG TAB PO SCH (11:08)
[2021-12-27] MEDS: PANTOPRAZOLE 40 MG TABLET PO SCH (11:09)
[2021-12-27] MEDS ORDERED: LACTULOSE 20 GM/30 ML CUP PO PRN (11:54)
[2021-12-27] MEDS ORDERED: CALCIUM CARBONATE 500 MG CHEWABLE PO PRN (11:54)
[2021-12-27] MEDS: HYDROcodone/APAP 10-325MG 1 EACH TAB PO PRN ×2 (12:00→23:16)
[2021-12-27] MEDS ORDERED: NON FORMULARY DRUG (Ensure Enlive 237 ML) PO SCH (12:00)
--- NOTE | 2021-12-27 12:05 | US ---
EXAMINATION TYPE: US kidneys/renal and bladder DATE OF EXAM: 12/27/2021 COMPARISON: US & CT CLINICAL HISTORY: sujit. SUJIT EXAM MEASUREMENTS: Right Kidney: 8.7 x 2.8 x 3.1 cm Left Kidney: 8.1 x 3.6 x 3.7 cm Right Kidney: Small in size, no evidence of hydro, thinned cortex Left Kidney: Small in size, no evidence of hydro Bladder: Cath in place There is no evidence for hydronephrosis at this point in time. No nephrolithiasis is seen. No alina s are identified. Cortical medullary differentiation is maintained, renal cortex is thinned and on th e right is slightly echogenic. The urinary bladder is catheterized. IMPRESSION: There may be some atrophy, underlying medical renal disease
[2021-12-27] MEDS: IPRATROPIUM-ALBUTEROL 3 ML NEB INHALATION SCH ×3 (12:09→19:31)
[2021-12-27] MEDS ORDERED: HYDROcodone/APAP 10-325MG 1 EACH TAB ONE (16:31)
--- NOTE | 2021-12-27 22:15 | P.CNPUL ---
History of Present Illness Consult date: 12/27/21 Reason for consult: dyspnea, abnormal CXR/CT Chief complaint: Lethargy, shortness of breath History of present illness: This is a very pleasant 76-year-old female patient who is residing at [facility] following the recent femur fracture. Her daughter had noticed over the past couple of days increasing lethargy, weakness, fatigue. She is brought into the emergency room for the same. White count 12.5. Hemoglobin 10.5. Platelets 43. Initial potassium 8.6. Current potassium 6.1. BUN 127. Creatinine 5.24. Glucose 106. ProBNP 5520. Ultrasound battery revealed some atrophy, underlying medical renal disease. She had received Kayexalate, fluid resuscitation, sodium bicarb, Humulin regular insulin, 50% D5W, calcium gluconate. She is seen today in consultation in the emergency department. She is currently resting comfortably on the stretcher. Awake and alert in no acute distress. Her daughter is at the bedside who provides much of the information. No worsening shortness of breath at this time. No fever chills. No cough or congestion. She does have crackles in the bilateral bases. She is 045% normal saline at 100 ML's per hour. Nephrology is on the case. Review of Systems REVIEW OF SYSTEMS: CONSTITUTIONAL: Generalized weakness, fatigue, lethargy. Denies any recent significant weight loss or weight gain. EYES: Denies change in vision. EARS, NOSE, MOUTH, THROAT: Denies headaches, denies sore throat. CARDIOVASCULAR: Denies chest pain, palpitations or syncopal episodes. RESPIRATORY: Denies shortness of breath, cough, congestion or hemoptysis. GASTROINTESTINAL: Denies change in appetite, denies abdominal pain GENITOURINARY: Denies hematuria, denies infections. MUSKULOSKELETAL: Denies pain, denies swelling. INTEGUMENTARY: Denies rash, denies eczema. NEUROLOGICAL: Denies recent memory loss, no recent seizure activity. PSYCHIATRIC: Denies anxiety, denies depression. HEMATOLOGIC/LYMPHATIC: Denies anemia, denies enlarged lymph nodes. Past Medical History Past Medical History: Atrial Fibrillation, Blood Disorder, Coronary Artery Disease (CAD), Chest Pain / Angina, COPD, Fibromyalgia, GERD/Reflux, GI Bleed, Hypertension, Myocardial Infarction ([place]), Musculoskeletal Disorder, Osteoarthritis (OA), Thyroid Disorder Additional Past Medical History / Comment(s): Pacemaker for Syncope/Tachybrady Syndrome. Hx RHEUMATIC FEVER. Heart murmur, chronic back and bilateral shoulder pain. SEVERE OSTEOPROSIS, Vertigo, Degenerative Joint Disease, GI ulcers, esophagitis/esophageal stricture, partially blocked bile duct, PROBLEMS WITH SWALLOWING, "no symptoms of COPD." FALLS "Cannot lie down for long without having back pain." Last Myocardial Infarction Date:: 2002 History of Any Multi-Drug Resistant Organisms: None Reported Past Surgical History: Appendectomy, Cardiac Ablation, Cholecystectomy, Ear Surgery, Heart Catheterization, Hysterectomy, Orthopedic Surgery, Pacemaker, Tonsillectomy Additional Past Surgical History / Comment(s): ORIF LEFT LOWER ARM, HAS HARDWARE, numerous DILATATION OF ESOPHAGUS, biopsies were negative, colonoscopy, Pacemaker (ADAPTA) placed 07/07 at [facility], bilateral stapedectomies(stainless steel in both ears), Hiatal Hernia repair, inguinal and femoral hernia repairs, "cement placed in back, due to broken back/pelvis". Left Femur Surgery 12/09/21 Past Anesthesia/Blood Transfusion Reactions: Family History of Problems w/ Anesthesia, Motion Sickness, Postoperative Nausea & Vomiting (PONV) Additional Past Anesthesia/Blood Transfusion Reaction / Comment(s): No problems with prior blood transfusion. BROTHER HAS PONV. Type of Cardiac Device: Permanent Pacemaker Device Placement Date:: 06/2016 Past Psychological History: No Psychological Hx Reported Additional Psychological History / Comment(s): DENIES ANY HX OF PROBLEM Smoking Status: Never smoker Past Alcohol Use History: None Reported Additional Past Alcohol Use History / Comment(s): Lives alone Past Drug Use History: None Reported - Past Family History Brother(s) Family Medical History: Cancer Additional Family Medical History / Comment(s): Throat cancer. Father Family Medical History: Pneumonia Additional Family Medical History / Comment(s): EMPHYSEMA. Mother Family Medical History: COPD, Rheumatoid Arthritis (RA) Additional Family Medical History / Comment(s): EMPHYSEMA. Medications and Allergies Home Medications Medication Instructions Recorded Confirmed Type SUMAtriptan succinate [Imitrex] 50 mg PO BID PRN 02/15/16 12/27/21 History Dicyclomine [Bentyl] 10 mg PO TID@0600,1400,2200 05/10/19 12/27/21 History Furosemide [Lasix] 40 mg PO DAILY@1500 02/06/20 12/27/21 History L.acidoph,Paracasei, B.lactis 1 cap PO DAILY@1700 02/06/20 12/27/21 History [Probiotic] allopurinoL [Zyloprim] 50 mg PO DAILY 02/06/20 12/27/21 History Metoprolol Tartrate [Lopressor] 50 mg PO BID@0800,1700 10/05/20 12/27/21 History Albuterol Inhaler [Ventolin Hfa 2 puff INHALATION RT-Q4H PRN 08/04/21 12/27/21 History Inhaler] Spironolactone [Aldactone] 25 mg PO DAILY 08/04/21 12/27/21 History Diclofenac Sodium [Voltaren] 75 mg PO BID@0800,1700 12/09/21 12/27/21 History Ergocalciferol [Vitamin D2 (1250 1,250 mcg PO FR 12/09/21 12/27/21 History Mcg = 23977 Iu)] Levothyroxine Sodium 100 mcg PO DAILY@0600 12/09/21 12/27/21 History Magnesium Gluconate [Magonate] 750 mg PO DAILY@1700 12/09/21 12/27/21 History calcitrioL [Calcitriol] 0.25 mcg PO FR 12/09/21 12/27/21 History hydrOXYzine HCL [Atarax] 25 mg PO Q6H PRN 12/09/21 12/27/21 History polyethylene glycoL 3350 [Miralax] 17 gm PO DAILY 12/09/21 12/27/21 History Acetaminophen Tab [Tylenol] 650 mg PO Q4HR PRN tab 12/16/21 12/27/21 Rx Ipratropium-Albuterol Nebulize 3 ml INHALATION RT-TID each 12/16/21 12/27/21 Rx [Duoneb 0.5 mg-3 mg/3 ml Soln] Lactulose [Cephulac] 20 gm PO TID PRN ml 12/16/21 12/27/21 Rx Amiodarone [Cordarone] See Taper PO DIRECTED 12/27/21 12/27/21 History Aspirin 325 mg PO DAILY@1700 12/27/21 12/27/21 History Ensure Enlive 237 ml PO TID@0800,1200,1700 12/27/21 12/27/21 History Furosemide [Lasix] 80 mg PO DAILY@0600 12/27/21 12/27/21 History HYDROcodone/APAP 10-325MG [[place] 1 tab PO Q6H PRN 12/27/21 12/27/21 History 10] Ipratropium-Albuterol Nebulize 3 ml INHALATION RT-TID PRN 12/27/21 12/27/21 History [Duoneb 0.5 mg-3 mg/3 ml Soln] Magnesium Hydroxide [Milk of 7,200 mg PO DAILY PRN 12/27/21 12/27/21 History Magnesia Concentrate] Melatonin 1 mg PO HS 12/27/21 12/27/21 History Na Phos,M-B/Na Phos,Di-Ba [Fleet 133 ml RECTAL DAILY PRN 12/27/21 12/27/21 History Adult] Pantoprazole [Protonix] 40 mg PO BID@0800,1700 12/27/21 12/27/21 History Potassium Chloride [Klor-Con M20] 20 meq PO DAILY@0 12/27/21 12/27/21 History Potassium Chloride [Klor-Con M20] 40 meq PO DAILY 12/27/21 12/27/21 History Sennosides-Docusate Sodium 1 tab PO HS 12/27/21 12/27/21 History [Senokot-S] Triamcinolone 0.5% Ointment 1 applic TOPICAL BID 12/27/21 12/27/21 History bisacodyL [Dulcolax] 10 mg RECTAL DAILY PRN 12/27/21 12/27/21 History Allergies Allergy/AdvReac Type Severity Reaction Status Date / Time adhesive Allergy RASH FROM Verified 12/27/21 06:51 EKG STICKERS apixaban [From Eliquis] Allergy Rash/Hives Verified 12/27/21 06:51 celecoxib [From Celebrex] Allergy Rash/Hives Verified 12/27/21 06:51 sertraline HCl [From Zoloft] Allergy Rash/Hives Verified 12/27/21 06:51 sulfamethoxazole Allergy Anaphylaxis Verified 12/27/21 06:51 [From Bactrim] trimethoprim [From Bactrim] Allergy Anaphylaxis Verified 12/27/21 06:51 cholestyramine AdvReac DIZZY/CONFU Verified 12/27/21 06:51 SED Physical Exam Vitals: Vital Signs Temp Pulse Pulse Resp BP BP Pulse Ox 12/27/21 19:56 60 12/27/21 19:31 59 L 12/27/21 12:19 53 L 12/27/21 12:10 50 L 12/27/21 12:00 53 L 18 111/94 98 12/27/21 11:10 52 L 18 88/47 98 12/27/21 07:46 98 F 55 L 18 103/78 96 12/27/21 07:00 51 L 12 86/37 12/27/21 06:45 52 L 19 86/37 95 12/27/21 06:30 53 L 12 91/41 97 12/27/21 06:15 57 L 13 91/41 94 L 12/27/21 06:00 52 L 15 117/48 97 12/27/21 05:45 51 L 13 117/48 94 L 12/27/21 05:30 59 L 17 90/44 97 12/27/21 05:15 49 L 11 L 90/44 95 12/27/21 05:00 49 L 11 L 91/42 94 L 12/27/21 04:45 49 L 12 91/42 97 12/27/21 04:30 50 L 10 L 92/38 95 12/27/21 04:15 50 L 10 L 92/38 94 L 12/27/21 04:00 98.1 F 49 L 12 83/39 93 L 12/27/21 03:45 49 L 12 83/39 95 12/27/21 03:30 49 L 10 L 87/39 95 12/27/21 03:15 49 L 15 87/39 96 12/27/21 03:00 49 L 13 85/38 94 L 12/27/21 02:48 60 12/27/21 02:45 51 L 12 95/44 100 12/27/21 02:30 50 L 10 L 89/46 98 12/27/21 02:20 64 12/27/21 02:15 52 L 14 86/40 93 L 12/27/21 02:00 49 L 49 L 13 88/41 85/51 94 L 12/27/21 01:58 49 L 14 12/27/21 01:00 97.9 F 75 15 105/54 95 12/26/21 22:47 97.8 F 62 16 107/44 100 Intake and Output 12/27/21 12/27/21 12/27/21 06:59 14:59 22:59 Intake Total 850 130 Output Total 540 60 Balance 310 70 Intake: IV 750 130 Calcium Gluconate in NaCl 100 2 gm In Saline 1 100ml. bag @ 100 mls/hr IVPB ONCE ONE Rx#:[id number] Sodium Chloride 0.9% 1, 650 130 000 ml @ 130 mls/hr IV . Q7H42M STA Rx#:[id number] Oral 100 Output: Urine 540 60 Other: Voiding Method External Catheter Weight 45 kg GENERAL EXAM: Alert, pleasant 76-year-old female patient, on room air, comfortable in no apparent distress. HEAD: Normocephalic. EYES: Normal reaction of pupils, equal size. NOSE: Clear with pink turbinates. THROAT: No erythema or exudates. NECK: No masses, no JVD. CHEST: No chest wall deformity. LUNGS: Equal air entry with crackles in bilateral bases. CVS: S1 and S2 normal with no audible murmur, regular rhythm. ABDOMEN: No hepatosplenomegaly, normal bowel sounds, no guarding or rigidity. SPINE: No scoliosis or deformity SKIN: No rashes CENTRAL NERVOUS SYSTEM: No focal deficits, tone is normal in all 4 extremities. EXTREMITIES: There is no peripheral edema. No clubbing, no cyanosis. Peripheral pulses are intact. Results - Laboratory Findings CBC and BMP: 12/27/21 05:36 12/27/21 09:25 PT/INR, D-dimer PT 10.3 sec (9.0-12.0) 12/26/21 23:07 INR 0.9 (<1.2) 12/26/21 23:07 Abnormal lab findings: Abnormal Labs 12/26/21 12/26/21 12/27/21 23:07 23:07 05:00 WBC 11.4 H RBC 3.31 L Hgb 10.5 L Hct 33.9 L MCV 102.5 H MCHC RDW 17.1 H Plt Count 507 H Neutrophils # (Manual) 8.70 H Monocytes # (Manual) Metamyelocytes # (Man) Sodium 135 L Potassium 8.6 H* Carbon Dioxide 14 L BUN 129 H* Creatinine 5.30 H Glucose Phosphorus 7.6 H Magnesium 3.9 H Alkaline Phosphatase 349 H Total Protein 5.7 L Albumin 2.9 L Lipase 20 L Urine Protein Trace H 12/27/21 12/27/21 12/27/21 05:36 05:36 09:25 WBC 12.5 H RBC 3.35 L Hgb 10.5 L Hct MCV 103.2 H MCHC 30.4 L RDW 16.8 H Plt Count 483 H Neutrophils # (Manual) 10.10 H Monocytes # (Manual) 1.25 H Metamyelocytes # (Man) 0.25 H Sodium Potassium 6.1 H* 5.5 H Carbon Dioxide 19 L BUN 127 H* Creatinine 5.24 H Glucose 106 H Phosphorus 8.2 H Magnesium 3.7 H Alkaline Phosphatase 368 H Total Protein 5.6 L Albumin 2.9 L Lipase Urine Protein Assessment and Plan Assessment: Acute renal failure of unclear etiology Acute hyperkalemia secondary to above with a presenting potassium 8.6, currently 6.1 Generalized weakness and fatigue secondary to above Recent femur fracture residing in an extended care facility History of atrial fibrillation History of fibromyalgia History of COPD History of hypothyroidism History of hypertension History of osteoporosis History of pacemaker implantation History of coronary disease Poor functional performance based on the above-mentioned comorbidities Plan: The patient was seen and evaluated Hyperkalemia improved No need for ICU admission Nephrology is on the case Continue the current treatment plan I have personally seen and examined the patient, performed the documentation and the assessment and plan as written. Number of minutes spent on the visit: 20.
[2021-12-27] MEDS: DICYCLOMINE 10 MG CAP PO SCH ×2 (23:16→23:45)
--- NOTE | 2021-12-27 23:29 | P.HPIM ---
History of Present Illness H&P Date: 12/27/21 Chief Complaint: We tired This is a very pleasant 76-year-old patient of Dr. Wray. Chronic stable medical conditions include esophagitis, peptic ulcer disease, chronic essential hypertension, primary osteoarthritis of multiple joints bilateral, depression, hypothyroidism, esophageal dysmotility, anxiety not otherwise specified,, esophageal constriction with repeated dilatation. Patient is followed at [facility] for the same. Patient on December 09 underwent left proximal femur open reduction internal fixation with IM thu. Secondary to fall. Patient was then discharged to rehab. Patient now presents feeling really weak and tired. She came moments. Not able to eat or drink much. Severely worsened renal function. Normally has a bowel movement every other day. Greene catheter was placed in the ER. Has had significant pain at the operative site. Initial potassium was 8.6. Patient is given a cocktail when the potassium down. Review of systems: GEN.: Tired, decrease appetite EYES: None HEENT: Decreased hearing NECK: None RESPIRATORY: None CARDIOVASCULAR: None GASTROINTESTINAL: Heartburn better GENITOURINARY: None MUSCULOSKELETAL: Joint pains, especially as postop site LYMPHATICS: None HEMATOLOGICAL: None PSYCHIATRY: Anxiety NEUROLOGICAL: None Past medical history to include: fibromyalgia, GERD, GI bleed, hypertension, osteoarthritis, hypothyroid, pacemaker for tachybradycardia syndrome, paroxysmal atrial flutter fibrillation, severe osteoporosis, esophageal stricture with dilatation, esophagitis Past surgical history to include: Appendectomy, cardiac ablation, ear surgery, pacemaker, or on her fourth left lower lobe, esophageal dilatation, pacemaker, cardiac ablation, Social history: Does not smoke or drink alcohol. Lives alone. Physical examination: VITAL SIGNS: 98, 55, 18, 103/78, 96% room air GENERAL: BMI 18.7, reclining in bed, awake, tired EYES: Pupils equal. Conjunctiva pale. HEENT: External appearance of nose and ears normal, oral cavity grossly normal. NECK: JVD not raised; masses not palpable. HEART: First and second heart sounds are normal; no edema. LUNGS: Respiratory rate normal; clear to auscultation. ABDOMEN: Soft, nontender, liver spleen not palpable, no masses palpable. PSYCH: [Alert and oriented x3; mood and affect slightly anxious MUSCULOSKELETAL: Evidence of OA especially in the hands and knees NEUROLOGICAL: Cranial nerves grossly intact; no facial asymmetry, power and s ensation grossly intact. LYMPHATICS: No lymph nodes palpable in the axilla and neck INVESTIGATIONS, reviewed in the clinical context: Ultrasound: Possible evidence of medical renal disease White count 12.5 hemoglobin 10.5 platelets 483 potassium 6.1 Admission labs: WBC 11.4 hemoglobin 10.5 platelets 507 potassium 8.6 BUN 129 creatinine 5.3 COVID 19 PCR: Not detected EKG tracing personally reviewed by me-atrial pacemaker Previous labs: Creatinine 2.4 on December 21, 0.85 on December 16 Assessment and plan: -Hyperkalemia from acute kidney injury, also patient being on potassium supplement, Aldactone, Lasix Glucose. Insulin. Lokelma. Renal diet. Bicarbonate. Nephrology consult. -Acute severe kidney injury combination of ATN and prerenal, patient is also on Voltaren, Lasix, Aldactone, Discontinued: Aldactone, Lasix,. IV fluids. Nephrology consult. -Paroxysmal atrial flutter with a prior history of ablation Cordarone.. Of Dr. -Chronic esophagitis Protonix 40 mg twice a day -Essential hypertension Lopressor 50 mg twice a day -Primary osteoarthritis Pain medications -Depression -Hypothyroidism Synthroid 100 g a day -Esophageal dysmotility -Anxiety but otherwise specified Xanax when necessary -Chronic esophageal constriction with repeated dilatations -Pacemaker for tachybradycardia syndrome. Given insulin, bicarbonate, Lokelma, renal diet to decreased renal function. Hold diuretics. IV fluids. Care was discussed with the patient. Questions answered. Consultation to nephrology. Past Medical History Past Medical History: Atrial Fibrillation, Blood Disorder, Coronary Artery Disease (CAD), Chest Pain / Angina, COPD, Fibromyalgia, GERD/Reflux, GI Bleed, Hypertension, Myocardial Infarction (SD), Musculoskeletal Disorder, Osteoarthritis (OA), Thyroid Disorder Additional Past Medical History / Comment(s): Pacemaker for Syncope/Tachybrady Syndrome. Hx RHEUMATIC FEVER. Heart murmur, chronic back and bilateral shoulder pain. SEVERE OSTEOPROSIS, Vertigo, Degenerative Joint Disease, GI ulcers, esophagitis/esophageal stricture, partially blocked bile duct, PROBLEMS WITH SWALLOWING, "no symptoms of COPD." FALLS "Cannot lie down for long without having back pain." Last Myocardial Infarction Date:: 2002 History of Any Multi-Drug Resistant Organisms: None Reported Past Surgical History: Appendectomy, Cardiac Ablation, Cholecystectomy, Ear Surgery, Heart Catheterization, Hysterectomy, Orthopedic Surgery, Pacemaker, Tonsillectomy Additional Past Surgical History / Comment(s): ORIF LEFT LOWER ARM, HAS HARDWARE, numerous DILATATION OF ESOPHAGUS, biopsies were negative, colonoscopy, Pacemaker (ADAPTA) placed 07/07 at [facility], bilateral stapedectomies(stainless steel in both ears), Hiatal Hernia repair, inguinal and femoral hernia repairs, "cement placed in back, due to broken back/pelvis". Left Femur Surgery 12/09/21 Past Anesthesia/Blood Transfusion Reactions: Family History of Problems w/ Anesthesia, Motion Sickness, Postoperative Nausea & Vomiting (PONV) Additional Past Anesthesia/Blood Transfusion Reaction / Comment(s): No problems with prior blood transfusion. BROTHER HAS PONV. Type of Cardiac Device: Permanent Pacemaker Device Placement Date:: 06/2016 Past Psychological History: No Psychological Hx Reported Additional Psychological History / Comment(s): DENIES ANY HX OF PROBLEM Smoking Status: Never smoker Past Alcohol Use History: None Reported Additional Past Alcohol Use History / Comment(s): Lives alone Past Drug Use History: None Reported - Past Family History Brother(s) Family Medical History: Cancer Additional Family Medical History / Comment(s): Throat cancer. Father Family Medical History: Pneumonia Additional Family Medical History / Comment(s): EMPHYSEMA. Mother Family Medical History: COPD, Rheumatoid Arthritis (RA) Additional Family Medical History / Comment(s): EMPHYSEMA. Medications and Allergies Home Medications Medication Instructions Recorded Confirmed Type SUMAtriptan succinate [Imitrex] 50 mg PO BID PRN 02/15/16 12/27/21 History Dicyclomine [Bentyl] 10 mg PO TID@0600,1400,2200 05/10/19 12/27/21 History Furosemide [Lasix] 40 mg PO DAILY@1500 02/06/20 12/27/21 History L.acidoph,Paracasei, B.lactis 1 cap PO DAILY@1700 02/06/20 12/27/21 History [Probiotic] allopurinoL [Zyloprim] 50 mg PO DAILY 02/06/20 12/27/21 History Metoprolol Tartrate [Lopressor] 50 mg PO BID@0800,1700 10/05/20 12/27/21 History Albuterol Inhaler [Ventolin Hfa 2 puff INHALATION RT-Q4H PRN 08/04/21 12/27/21 History Inhaler] Spironolactone [Aldactone] 25 mg PO DAILY 08/04/21 12/27/21 History Diclofenac Sodium [Voltaren] 75 mg PO BID@0800,1700 12/09/21 12/27/21 History Ergocalciferol [Vitamin D2 (1250 1,250 mcg PO FR 12/09/21 12/27/21 History Mcg = 85363 Iu)] Levothyroxine Sodium 100 mcg PO DAILY@59912/09/21 12/27/21 History Magnesium Gluconate [Magonate] 750 mg PO DAILY@169912/09/21 12/27/21 History calcitrioL [Calcitriol] 0.25 mcg PO FR 12/09/21 12/27/21 History hydrOXYzine HCL [Atarax] 25 mg PO Q6H PRN 12/09/21 12/27/21 History polyethylene glycoL 3350 [Miralax] 17 gm PO DAILY 12/09/21 12/27/21 History Acetaminophen Tab [Tylenol] 650 mg PO Q4HR PRN tab 12/16/21 12/27/21 Rx Ipratropium-Albuterol Nebulize 3 ml INHALATION RT-TID each 12/16/21 12/27/21 Rx [Duoneb 0.5 mg-3 mg/3 ml Soln] Lactulose [Cephulac] 20 gm PO TID PRN ml 12/16/21 12/27/21 Rx Amiodarone [Cordarone] See Taper PO DIRECTED 12/27/21 12/27/21 History Aspirin 325 mg PO DAILY@169912/27/21 12/27/21 History Ensure Enlive 237 ml PO TID@0800,1200,1700 12/27/21 12/27/21 History Furosemide [Lasix] 80 mg PO DAILY@59912/27/21 12/27/21 History HYDROcodone/APAP 10-325MG [Elma 1 tab PO Q6H PRN 12/27/21 12/27/21 History 10] Ipratropium-Albuterol Nebulize 3 ml INHALATION RT-TID PRN 12/27/21 12/27/21 Hi story [Duoneb 0.5 mg-3 mg/3 ml Soln] Magnesium Hydroxide [Milk of 7,200 mg PO DAILY PRN 12/27/21 12/27/21 History Magnesia Concentrate] Melatonin 1 mg PO HS 12/27/21 12/27/21 History Na Phos,M-B/Na Phos,Di-Ba [Fleet 133 ml RECTAL DAILY PRN 12/27/21 12/27/21 History Adult] Pantoprazole [Protonix] 40 mg PO BID@0800,1700 12/27/21 12/27/21 History Potassium Chloride [Klor-Con M20] 20 meq PO DAILY@1700 12/27/21 12/27/21 History Potassium Chloride [Klor-Con M20] 40 meq PO DAILY 12/27/21 12/27/21 History Sennosides-Docusate Sodium 1 tab PO HS 12/27/21 12/27/21 History [Senokot-S] Triamcinolone 0.5% Ointment 1 applic TOPICAL BID 12/27/21 12/27/21 History bisacodyL [Dulcolax] 10 mg RECTAL DAILY PRN 12/27/21 12/27/21 History Allergies Allergy/AdvReac Type Severity Reaction Status Date / Time adhesive Allergy RASH FROM Verified 12/27/21 06:51 EKG STICKERS apixaban [From Eliquis] Allergy Rash/Hives Verified 12/27/21 06:51 celecoxib [From Celebrex] Allergy Rash/Hives Verified 12/27/21 06:51 sertraline HCl [From Zoloft] Allergy Rash/Hives Verified 12/27/21 06:51 sulfamethoxazole Allergy Anaphylaxis Verified 12/27/21 06:51 [From Bactrim] trimethoprim [From Bactrim] Allergy Anaphylaxis Verified 12/27/21 06:51 cholestyramine AdvReac DIZZY/CONFU Verified 12/27/21 06:51 SED Physical Exam Vitals: Vital Signs Temp Pulse Pulse Resp BP BP Pulse Ox 12/27/21 07:46 98 F 55 L 18 103/78 96 12/27/21 07:00 51 L 12 86/37 12/27/21 06:45 52 L 19 86/37 95 12/27/21 06:30 53 L 12 91/41 97 12/27/21 06:15 57 L 13 91/41 94 L 12/27/21 06:00 52 L 15 117/48 97 12/27/21 05:45 51 L 13 117/48 94 L 12/27/21 05:30 59 L 17 90/44 97 12/27/21 05:15 49 L 11 L 90/44 95 12/27/21 05:00 49 L 11 L 91/42 94 L 12/27/21 04:45 49 L 12 91/42 97 12/27/21 04:30 50 L 10 L 92/38 95 12/27/21 04:15 50 L 10 L 92/38 94 L 12/27/21 04:00 98.1 F 49 L 12 83/39 93 L 12/27/21 03:45 49 L 12 83/39 95 12/27/21 03:30 49 L 10 L 87/39 95 12/27/21 03:15 49 L 15 87/39 96 12/27/21 03:00 49 L 13 85/38 94 L 12/27/21 02:48 60 12/27/21 02:45 51 L 12 95/44 100 12/27/21 02:30 50 L 10 L 89/46 98 12/27/21 02:20 64 12/27/21 02:15 52 L 14 86/40 93 L 12/27/21 02:00 49 L 49 L 13 88/41 85/51 94 L 12/27/21 01:58 49 L 14 12/27/21 01:00 97.9 F 75 15 105/54 95 12/26/21 22:47 97.8 F 62 16 107/44 100 Intake and Output 12/26/21 12/27/21 12/27/21 22:59 06:59 14:59 Intake Total 850 130 Output Total 540 60 Balance 310 70 Intake: IV 750 130 Calcium Gluconate in NaCl 100 2 gm In Saline 1 100ml. bag @ 100 mls/hr IVPB ONCE ONE Rx#:[id number] Sodium Chloride 0.9% 1, 650 130 000 ml @ 130 mls/hr IV . Q7H42M STA Rx#:[id number] Oral 100 Output: Urine 540 60 Other: Voiding Method External Catheter Weight 46.72 kg 45 kg Results CBC & Chem 7: 12/27/21 05:36 12/27/21 09:25 Labs: Abnormal Lab Results - Last 24 Hours (Table) 12/26/21 12/26/21 12/27/21 Range/Units 23:07 23:07 05:00 WBC 11.4 H (3.8-10.6) k/uL RBC 3.31 L (3.80-5.40) m/uL Hgb 10.5 L (11.4-16.0) gm/dL Hct 33.9 L (34.0-46.0) % MCV 102.5 H (80.0-100.0) fL MCHC (31.0-37.0) g/dL RDW 17.1 H (11.5-15.5) % Plt Count 507 H (150-450) k/uL Neutrophils # (Manual) 8.70 H (1.3-7.7) k/uL Monocytes # (Manual) (0-1.0) k/uL Metamyelocytes # (Man) (0) k/uL Sodium 135 L (137-145) mmol/L Potassium 8.6 H* (3.5-5.1) mmol/L Carbon Dioxide 14 L (22-30) mmol/L BUN 129 H* (7-17) mg/dL Creatinine 5.30 H (0.52-1.04) mg/dL Glucose (74-99) mg/dL Phosphorus 7.6 H (2.5-4.5) mg/dL Magnesium 3.9 H (1.6-2.3) mg/dL Alkaline Phosphatase 349 H (38-126) U/L Total Protein 5.7 L (6.3-8.2) g/dL Albumin 2.9 L (3.5-5.0) g/dL Lipase 20 L (23-300) U/L Urine Protein Trace H (Negative) 12/27/21 12/27/21 Range/Units 05:36 05:36 WBC 12.5 H (3.8-10.6) k/uL RBC 3.35 L (3.80-5.40) m/uL Hgb 10.5 L (11.4-16.0) gm/dL Hct (34.0-46.0) % MCV 103.2 H (80.0-100.0) fL MCHC 30.4 L (31.0-37.0) g/dL RDW 16.8 H (11.5-15.5) % Plt Count 483 H (150-450) k/uL Neutrophils # (Manual) 10.10 H (1.3-7.7) k/uL Monocytes # (Manual) 1.25 H (0-1.0) k/uL Metamyelocytes # (Man) 0.25 H (0) k/uL Sodium (137-145) mmol/L Potassium 6.1 H* (3.5-5.1) mmol/L Carbon Dioxide 19 L (22-30) mmol/L BUN 127 H* (7-17) mg/dL Creatinine 5.24 H (0.52-1.04) mg/dL Glucose 106 H (74-99) mg/dL Phosphorus 8.2 H (2.5-4.5) mg/dL Magnesium 3.7 H (1.6-2.3) mg/dL Alkaline Phosphatase 368 H (38-126) U/L Total Protein 5.6 L (6.3-8.2) g/dL Albumin 2.9 L (3.5-5.0) g/dL Lipase (23-300) U/L Urine Protein (Negative) Thrombosis Risk Factor Assmnt - Choose All That Apply Any of the Below Risk Factors Present?: Yes Each Factor Represents 1 point: Abnormal pulmonary function (COPD), Medical pt on bed rest Other Risk Factors: Yes Each Risk Factor Represents 2 Points: Age 61-74 years Other congenital or acquired thrombophilia - If yes, enter type in comment: Yes Each Risk Factor Represents 5 Points: Hip, pelvis, or leg fracture (< 1 month) Thrombosis Risk Factor Assessment Total Risk Factor Score: 9 Thrombosis Risk Factor Assessment Level: High Risk
[2021-12-28] MEDS: PANTOPRAZOLE 40 MG TABLET PO SCH ×3 (05:06→17:14)
[2021-12-28] MEDS: SODIUM CHLORIDE 0.45% 1,000 ML IV SCH ×4 (05:48→17:52)
[2021-12-28] MEDS: LEVOTHYROXINE 100 MCG TAB PO SCH (05:55)
[2021-12-28] MEDS: DICYCLOMINE 10 MG CAP PO SCH ×3 (05:55→20:50)
[2021-12-28] MEDS: HYDROcodone/APAP 10-325MG 1 EACH TAB PO PRN ×3 (05:55→19:09)
[2021-12-28] MEDS: IPRATROPIUM-ALBUTEROL 3 ML NEB INHALATION SCH ×3 (08:21→19:52)
[2021-12-28 08:30] LABS: Calcium 8.3 mg/dL (8.4-10.2); Potassium 4.7 mmol/L (3.5-5.1)
[2021-12-28] MEDS: allopurinoL 100 MG TAB PO SCH (08:30)
[2021-12-28 09:03] LABS: Anisocytosis Slight; HCT 32.1 % (34.0-46.0); HGB 9.8 gm/dL (11.4-16.0); Hypochromasia Marked; MCH 31.9 pg (25.0-35.0); MCHC 30.6 g/dL (31.0-37.0); Macrocytosis Moderate; Mean Platelet Volume 8.5; Platelet Count 422 k/uL (150-450); RBC 3.08 m/uL (3.80-5.40); RDW 17.2 % (11.5-15.5); WBC 10.5 k/uL (3.8-10.6)
--- NOTE | 2021-12-28 09:18 | P.PN ---
Subjective Progress Note Date: 12/28/21 Principal diagnosis: Hyperkalemia, possible need for HD access Patient was seen and examined at follow-up. No acute changes through the night. Potassium continues to improve and is 4.7 today. Patient has Greene catheter in place, and is making good urine output. Objective - Vital Signs Vital signs: Vital Signs Temp 97.3 F L 12/28/21 08:00 Pulse 72 12/28/21 08:34 Resp 16 12/28/21 08:00 BP 110/56 12/28/21 08:00 Pulse Ox 98 12/28/21 08:00 FiO2 Intake & Output 12/27/21 12/28/21 12/28/21 18:59 06:59 18:59 Intake Total 130 Output Total 60 900 Balance 70 -900 Weight 45 kg Intake: IV 130 Sodium Chloride 0.9% 1, 130 000 ml @ 130 mls/hr IV . Q7H42M STA Rx#:[id number] Output: Urine 60 900 Other: Voiding Method Indwelling Catheter - Exam General appearance: The patient is alert, oriented, appears in no acute distress. HET: Head is normocephalic and atraumatic. Neck: Supple without lymphadenopathy. Trachea midline. Heart: S1 S2. Regular rate and rhythm. Lungs: Clear to auscultation bilaterally. Abdomen: Soft, nontender, nondistended. Extremities: Normal skin color and turgor. Neurological: No focal deficits. - Labs CBC & Chem 7: 12/28/21 07:51 12/28/21 07:51 Labs: Abnormal Lab Results - Last 24 Hours (Table) 12/27/21 12/28/21 12/28/21 Range/Units 09:25 07:51 07:51 RBC 3.08 L (3.80-5.40) m/uL Hgb 9.8 L (11.4-16.0) gm/dL Hct 32.1 L (34.0-46.0) % MCV 104.0 H (80.0-100.0) fL MCHC 30.6 L (31.0-37.0) g/dL RDW 17.2 H (11.5-15.5) % Potassium 5.5 H (3.5-5.1) mmol/L BUN 99 H (7-17) mg/dL Creatinine 3.03 H (0.52-1.04) mg/dL Glucose 133 H (74-99) mg/dL Calcium 8.3 L (8.4-10.2) mg/dL Assessment and Plan Assessment: 1. Acute kidney injury 2. Hyperkalemia, improving Plan: Potassium continues to improve. Continue to follow recommendations from nephrology. No surgical intervention indicated at this time. Thank you for this consultation, we will sign off at this time. Please do not hesitate to call us back if vascular surgical services is needed. The impression and plan of care has been dictated as directed. Dr. Greene I performed a history and examination of this patient, discussed the same with the dictator. I agree with the dictator's note ,documented as a scribe. Any additional findings or plans will be noted.
[2021-12-28 09:42] LABS: Basophils # (M) 0.11 k/uL (0-0.2); Eosinophils # (M) 0.32 k/uL (0-0.7); Lymphocytes # (M) 0.95 k/uL (1.0-4.8); Monocytes # (M) 1.05 k/uL (0-1.0); Neutrophils # (M) 8.09 k/uL (1.3-7.7); Neutrophils % (M) 77 %; Nucleated Red Blood Cells 0 /100 WBC (0-0); Total Cells Counted 100; Toxic Granulation Present
[2021-12-28] MEDS: MORPHINE SULFATE 4 MG/ML SYRINGE IV PRN ×2 (10:29→23:21)
--- NOTE | 2021-12-28 13:53 | P.PN ---
Subjective Progress Note Date: 12/28/21 This is a very pleasant 76-year-old female patient who is residing at [facility] following the recent femur fracture. Her daughter had noticed over the past couple of days increasing lethargy, weakness, fatigue. She is brought into the emergency room for the same. White count 12.5. Hemoglobin 10.5. Platelets 43. Initial potassium 8.6. Current potassium 6.1. BUN 127. Creatinine 5.24. Glucose 106. ProBNP 5520. Ultrasound battery revealed some atrophy, underlying medical renal disease. She had received Kayexalate, fluid resuscitation, sodium bicarb, Humulin regular insulin, 50% D5W, calcium gluconate. She is seen today in consultation in the emergency department. She is currently resting comfortably on the stretcher. Awake and alert in no acute distress. Her daughter is at the bedside who provides much of the information. No worsening shortness of breath at this time. No fever chills. No cough or congestion. She does have crackles in the bilateral bases. She is 045% normal saline at 100 ML's per hour. Nephrology is on the case. The patient is seen today 12/28/2021 in follow-up on the regular medical floor. She is currently up in bed. Awake and alert in no acute distress. Denies any shortness of breath, cough or congestion. No fever or chills. White count 10 .5. Hemoglobin 9.8. Platelets 422. Sodium 139. Potassium 4.7. Bicarb 23. BUN 99. Creatinine 3.03. Potassium 4.7. Her urine output has picked up. 0.5% normal saline at 100 ML's per hour. Objective - Vital Signs Vital signs: Vital Signs Temp 97.3 F L 12/28/21 08:00 Pulse 82 12/28/21 12:00 Resp 16 12/28/21 12:00 BP 119/65 12/28/21 12:00 Pulse Ox 98 12/28/21 12:00 FiO2 50 12/28/21 11:28 Intake & Output 12/27/21 12/28/21 12/28/21 18:59 06:59 18:59 Intake Total 130 Output Total 60 900 Balance 70 -900 Weight 45 kg Intake: IV 130 Sodium Chloride 0.9% 1, 130 000 ml @ 130 mls/hr IV . Q7H42M STA Rx#:[id number] Output: Urine 60 900 Other: Voiding Method Indwelling Catheter Indwelling Catheter - Exam GENERAL EXAM: Alert, pleasant 76-year-old female patient, on room air, comfortable in no apparent distress. HEAD: Normocephalic. EYES: Normal reaction of pupils, equal size. NOSE: Clear with pink turbinates. THROAT: No erythema or exudates. NECK: No masses, no JVD. CHEST: No chest wall deformity. LUNGS: Equal air entry with crackles in bilateral bases. CVS: S1 and S2 normal with no audible murmur, regular rhythm. ABDOMEN: No hepatosplenomegaly, normal bowel sounds, no guarding or rigidity. SPINE: No scoliosis or deformity SKIN: No rashes CENTRAL NERVOUS SYSTEM: No focal deficits, tone is normal in all 4 extremities. EXTREMITIES: There is no peripheral edema. No clubbing, no cyanosis. Peripheral pulses are intact. - Labs CBC & Chem 7: 12/28/21 07:51 12/28/21 07:51 Labs: Abnormal Lab Results - Last 24 Hours (Table) 12/28/21 12/28/21 Range/Units 07:51 07:51 RBC 3.08 L (3.80-5.40) m/uL Hgb 9.8 L (11.4-16.0) gm/dL Hct 32.1 L (34.0-46.0) % MCV 104.0 H (80.0-100.0) fL MCHC 30.6 L (31.0-37.0) g/dL RDW 17.2 H (11.5-15.5) % Neutrophils # (Manual) 8.09 H (1.3-7.7) k/uL Lymphocytes # (Manual) 0.95 L (1.0-4.8) k/uL Monocytes # (Manual) 1.05 H (0-1.0) k/uL BUN 99 H (7-17) mg/dL Creatinine 3.03 H (0.52-1.04) mg/dL Glucose 133 H (74-99) mg/dL Calcium 8.3 L (8.4-10.2) mg/dL Assessment and Plan Assessment: Acute renal failure of unclear etiology, currently improving with a creatinine of 3.03. Increased urine output. Acute hyperkalemia secondary to above with a presenting potassium 8.6, currently 4.7 Generalized weakness and fatigue secondary to above Recent femur fracture residing in an extended care facility History of atrial fibrillation History of fibromyalgia History of COPD History of hypothyroidism History of hypertension History of osteoporosis History of pacemaker implantation History of coronary disease Poor functional performance based on the above-mentioned comorbidities Plan: The patient was seen and evaluated Hyperkalemia improved No need for ICU admission Nephrology is on the case Stable and on room air We will see as needed I have personally seen and examined the patient, performed the documentation and the assessment and plan as written. Number of minutes spent on the visit: 10.
--- NOTE | 2021-12-28 15:20 | P.CNOR ---
History of Present Illness - [facility] Consult date: 12/28/21 Requesting physician: Rich Wong Consult reason: other (Postoperative left hip further evaluation) History of present illness: Patient is a very pleasant 76-year-old female who is well known to our service who seen and examined at bedside. We have been consulted for follow up evaluation for her left hip. She is status post left hip ORIF with intramedullary nail fixation for left subtrochanteric hip fracture performed on 12/10/2021. She was discharged from [facility] to [facility] on 12/16/2021. Patient states she had since been discharged from rehab and has been residing at home. She does continue to have some pain at her left hip. She is currently lying in bed. Dressings over the incision site the left hip have been removed. Surgical sites are clean, dry, and intact. She continues to be nonweightbearing on the left lower extremity. She presented to the emergency department for further evaluation after feeling g enerally weak and tired. She has not been eating or drinking much food. She is being seen by multiple medical providers during her admission including medicine, nephrology, and pulmonology. Patient is currently being treated for acute kidney injury and hyperkalemia. Patient does have multiple other medical diagnoses including hypertension, hypothyroidism, and atrial fibrillation. She was unable to tolerate anticoagulation medications due to ALLERGY. Greene catheter was placed in the emergency department. Past Medical History Past Medical History: Atrial Fibrillation, Blood Disorder, Coronary Artery Disease (CAD), Chest Pain / Angina, COPD, Fibromyalgia, GERD/Reflux, GI Bleed, Hypertension, Myocardial Infarction (VT), Musculoskeletal Disorder, Osteoarthritis (OA), Thyroid Disorder Additional Past Medical History / Comment(s): Pacemaker for Syncope/Tachybrady Syndrome. Hx RHEUMATIC FEVER. Heart murmur, chronic back and bilateral shoulder pain. SEVERE OSTEOPROSIS, Vertigo, Degenerative Joint Disease, GI ulcers, esophagitis/esophageal stricture, partially blocked bile duct, PROBLEMS WITH SWALLOWING, "no symptoms of COPD." FALLS "Cannot lie down for long without having back pain." Last Myocardial Infarction Date:: 2002 History of Any Multi-Drug Resistant Organisms: None Reported Past Surgical History: Appendectomy, Cardiac Ablation, Cholecystectomy, Ear Surgery, Heart Catheterization, Hysterectomy, Orthopedic Surgery, Pacemaker, Tonsillectomy Additional Past Surgical History / Comment(s): ORIF LEFT LOWER ARM, HAS HARDWARE, numerous DILATATION OF ESOPHAGUS, biopsies were negative, colonoscopy, Pacemaker (ADAPTA) placed 07/07 at [facility], bilateral stapedectomies(stainless steel in both ears), Hiatal Hernia repair, inguinal and femoral hernia repairs, "cement placed in back, due to broken back/pelvis". Left Femur Surgery 12/09/21 Past Anesthesia/Blood Transfusion Reactions: Family History of Problems w/ Anesthesia, Motion Sickness, Postoperative Nausea & Vomiting (PONV) Additional Past Anesthesia/Blood Transfusion Reaction / Comm: No problems with prior blood transfusion. BROTHER HAS PONV. Type of Cardiac Device: Permanent Pacemaker Device Placement Date:: 06/2016 Past Psychological History: No Psychological Hx Reported Additional Psychological History / Comment(s): DENIES ANY HX OF PROBLEM Smoking Status: Never smoker Past Alcohol Use History: None Reported Additional Past Alcohol Use History / Comment(s): Lives alone Past Drug Use History: None Reported - Past Family History Brother(s) Family Medical History: Cancer Additional Family Medical History / Comment(s): Throat cancer. Father Family Medical History: Pneumonia Additional Family Medical History / Comment(s): EMPHYSEMA. Mother Family Medical History: COPD, Rheumatoid Arthritis (RA) Additional Family Medical History / Comment(s): EMPHYSEMA. Medications and Allergies Home Medications Medication Instructions Recorded Confirmed Type SUMAtriptan succinate [Imitrex] 50 mg PO BID PRN 02/15/16 12/27/21 History Dicyclomine [Bentyl] 10 mg PO TID@0600,1400,2200 05/10/19 12/27/21 History Furosemide [Lasix] 40 mg PO DAILY@1500 02/06/20 12/27/21 History L.acidoph,Paracasei, B.lactis 1 cap PO DAILY@1700 02/06/20 12/27/21 History [Probiotic] allopurinoL [Zyloprim] 50 mg PO DAILY 02/06/20 12/27/21 History Metoprolol Tartrate [Lopressor] 50 mg PO BID@0800,1700 10/05/20 12/27/21 History Albuterol Inhaler [Ventolin Hfa 2 puff INHALATION RT-Q4H PRN 08/04/21 12/27/21 History Inhaler] Spironolactone [Aldactone] 25 mg PO DAILY 08/04/21 12/27/21 History Diclofenac Sodium [Voltaren] 75 mg PO BID@0800,1700 12/09/21 12/27/21 History Ergocalciferol [Vitamin D2 (1250 1,250 mcg PO FR 12/09/21 12/27/21 History Mcg = 76154 Iu)] Levothyroxine Sodium 100 mcg PO DAILY@0612/09/21 12/27/21 History Magnesium Gluconate [Magonate] 750 mg PO DAILY@169912/09/21 12/27/21 History calcitrioL [Calcitriol] 0.25 mcg PO FR 12/09/21 12/27/21 History hydrOXYzine HCL [Atarax] 25 mg PO Q6H PRN 12/09/21 12/27/21 History polyethylene glycoL 3350 [Miralax] 17 gm PO DAILY 12/09/21 12/27/21 History Acetaminophen Tab [Tylenol] 650 mg PO Q4HR PRN tab 12/16/21 12/27/21 Rx Ipratropium-Albuterol Nebulize 3 ml INHALATION RT-TID each 12/16/21 12/27/21 Rx [Duoneb 0.5 mg-3 mg/3 ml Soln] Lactulose [Cephulac] 20 gm PO TID PRN ml 12/16/21 12/27/21 Rx Amiodarone [Cordarone] See Taper PO DIRECTED 12/27/21 12/27/21 History Aspirin 325 mg PO DAILY@169912/27/21 12/27/21 History Ensure Enlive 237 ml PO TID@0800,1200,1700 12/27/21 12/27/21 History Furosemide [Lasix] 80 mg PO DAILY@59912/27/21 12/27/21 History HYDROcodone/APAP 10-325MG [[employer] 1 tab PO Q6H PRN 12/27/21 12/27/21 History 10] Ipratropium-Albuterol Nebulize 3 ml INHALATION RT-TID PRN 12/27/21 12/27/21 History [Duoneb 0.5 mg-3 mg/3 ml Soln] Magnesium Hydroxide [Milk of 7,200 mg PO DAILY PRN 12/27/21 12/27/21 History Magnesia Concentrate] Melatonin 1 mg PO HS 12/27/21 12/27/21 History Na Phos,M-B/Na Phos,Di-Ba [Fleet 133 ml RECTAL DAILY PRN 12/27/21 12/27/21 History Adult] Pantoprazole [Protonix] 40 mg PO BID@0800,1700 12/27/21 12/27/21 History Potassium Chloride [Klor-Con M20] 20 meq PO DAILY@1700 12/27/21 12/27/21 History Potassium Chloride [Klor-Con M20] 40 meq PO DAILY 12/27/21 12/27/21 History Sennosides-Docusate Sodium 1 tab PO HS 12/27/21 12/27/21 History [Senokot-S] Triamcinolone 0.5% Ointment 1 applic TOPICAL BID 12/27/21 12/27/21 History bisacodyL [Dulcolax] 10 mg RECTAL DAILY PRN 12/27/21 12/27/21 History Allergies Allergy/AdvReac Type Severity Reaction Status Date / Time adhesive Allergy RASH FROM Verified 12/27/21 06:51 EKG STICKERS apixaban [From Eliquis] Allergy Rash/Hives Verified 12/27/21 06:51 celecoxib [From Celebrex] Allergy Rash/Hives Verified 12/27/21 06:51 sertraline HCl [From Zoloft] Allergy Rash/Hives Verified 12/27/21 06:51 sulfamethoxazole Allergy Anaphylaxis Verified 12/27/21 06:51 [From Bactrim] trimethoprim [From Bactrim] Allergy Anaphylaxis Verified 12/27/21 06:51 cholestyramine AdvReac DIZZY/CONFU Verified 12/27/21 06:51 SED Physical Examination Physical Exam Intramedullary Rodding for Subtrochanteric Fracture: Patient is examined lying in bed Patient is awake and alert, and oriented 3 Vital signs stable Adequate chest excursion with deep inspiration and expiration Lower extremity cuffs not currently in place bilaterally Surgical sites of the left hip are clean, dry, and intact; no erythema, purulence, or signs of infection at the surgical site No significant pain with palpation over the left anterior thigh Full range of motion of ankles bilaterally Dorsiflexion, plantarflexion, and extensor hallucis longus positive sustained bilaterally but weaker on the left Patient is unable to lift her left lower extremity off the bed. Neurovascularly intact bilateral lower extremities Capillary refill less than 2 seconds bilateral lower extremities Greene catheter intact Results - Labs Labs: Abnormal Lab Results - Last 24 Hours (Table) 12/28/21 12/28/21 Range/Units 07:51 07:51 RBC 3.08 L (3.80-5.40) m/uL Hgb 9.8 L (11.4-16.0) gm/dL Hct 32.1 L (34.0-46.0) % MCV 104.0 H (80.0-100.0) fL MCHC 30.6 L (31.0-37.0) g/dL RDW 17.2 H (11.5-15.5) % Neutrophils # (Manual) 8.09 H (1.3-7.7) k/uL Lymphocytes # (Manual) 0.95 L (1.0-4.8) k/uL Monocytes # (Manual) 1.05 H (0-1.0) k/uL BUN 99 H (7-17) mg/dL Creatinine 3.03 H (0.52-1.04) mg/dL Glucose 133 H (74-99) mg/dL Calcium 8.3 L (8.4-10.2) mg/dL H & H 12/26/21 12/27/21 12/28/21 Range/Units 23:07 05:36 07:51 Hgb 10.5 L 10.5 L 9.8 L (11.4-16.0) gm/dL Hct 33.9 L 34.6 32.1 L (34.0-46.0) % Coagulation 12/26/21 Range/Units 23:07 INR 0.9 (<1.2) Result Diagrams: 12/28/21 07:51 12/28/21 07:51 Assessment and Plan Assessment: Assessment: Status post left hip ORIF with intramedullary nail fixation for left subtrochanteric hip fracture Left hip pain Status post fall Hyperkalemia Acute kidney injury History of atrial fibrillation with unable to tolerate anticoagulation medication due to severe ALLERGIC reaction Coronary artery disease Severe osteoporosis COPD Fibromyalgia Gastroesophageal reflux disease History of GI bleed Hypertension History myocardial infarction Hypothyroidism Chronic constipation (1) Subtrochanteric fracture of left femur Current Visit: Yes Status: Acute Code(s): S72.22XA - DISPLACED SUBTROCHANTERIC FRACTURE OF LEFT FEMUR, INIT SNOMED Code(s): 859728904 (2) ARF (acute renal failure) Current Visit: Yes Status: Acute Code(s): N17.9 - ACUTE KIDNEY FAILURE, UNSPECIFIED SNOMED Code(s): 85241370 (3) Hyperkalemia Current Visit: Yes Status: Acute Code(s): E87.5 - HYPERKALEMIA SNOMED Code(s): 52771796 (4) Femur fracture, left Current Visit: No Status: Acute Code(s): S72.92XA - UNSP FRACTURE OF LEFT FEMUR, INIT ENCNTR FOR CLOSED FRACTURE SNOMED Code(s): 68533114 (5) History of GI bleed Current Visit: No Status: Acute Code(s): Z87.19 - PERSONAL HISTORY OF OTHER DISEASES OF THE DIGESTIVE SYSTEM SNOMED Code(s): 534163540 (6) History of atrial fibrillation Current Visit: No Status: Acute Code(s): Z86.79 - PERSONAL HISTORY OF OTHER DISEASES OF THE CIRCULATORY SYSTEM SNOMED Code(s): 827295456 (7) History of myocardial infarction Current Visit: No Status: Acute Code(s): I25.2 - OLD MYOCARDIAL INFARCTION SNOMED Code(s): 375789516 (8) Hypertension Current Visit: No Status: Acute Code(s): I10 - ESSENTIAL (PRIMARY) HYPERTENSION SNOMED Code(s): 87516063 (9) Hypothyroid Current Visit: No Status: Acute Code(s): E03.9 - HYPOTHYROIDISM, UNSPECIFIED SNOMED Code(s): 08998685 (10) Left hip pain Current Visit: No Status: Acute Code(s): M25.552 - PAIN IN LEFT HIP SNOMED Code(s): 13911653 Plan: Plan: 1. Patient to remain strict nonweightbearing on the left lower extremity; patient may work with physical therapy to increase mobility and ambulation 2. Dressings over the left hip have been removed; incision sites remain dry; patient may shower without a dressing intact at this time 3. We have ordered left femur x-rays for postoperative evaluation of retained intramedullary nail fixation hardware 4. Continue pain control with oral [employer] and IV morphine as prescribed as needed for pain control 5. Patient was previously prescribed aspirin 325 mg 1 tab daily for an ticoagulation following surgical intervention at her left hip for 30 days at the time of discharge. This medication was prescribed to run through 01/15/2022. Given her other significant medical diagnoses and current treatment, we will defer anticoagulation to medicine at their discretion. 6. We'll continue to follow the patient closely; we will review her x-ray imaging of the left femur once complete. 7. Following discharge, patient can follow-up with Nate Yepez PA-C or Dr. Odell Lee at [facility] in 2-3 weeks following discharge Time with Patient: Greater than 30 (Including obtaining history, physical examination, reviewing of imaging, and dictation.)
[2021-12-28 15:25] VITALS: BMI 18.7
--- NOTE | 2021-12-28 16:20 | P.PN ---
Progress Note - Text Progress Note Date: 12/28/21 Chief Complaint: We tired This is a very pleasant 76-year-old patient of Dr. Wray. Chronic stable medical conditions include esophagitis, peptic ulcer disease, chronic essential hypertension, primary osteoarthritis of multiple joints bilateral, depression, hypothyroidism, esophageal dysmotility, anxiety not otherwise specified,, esophageal constriction with repeated dilatation. Patient is followed at [facility] for the same. Patient on December 09 underwent left proximal femur open reduction internal fixation with IM thu. Secondary to fall. Patient was then discharged to rehab. Patient now presents feeling really weak and tired. Jerking/myoclonic movements. Not able to eat or drink much. Severely worsened renal function. Normally has a bowel movement every other day. Greene catheter was placed in the ER. Has had significant pain at the operative site. Initial potassium was 8.6. Patient is given a cocktail when the potassium down. Admitted with acute severe kidney injury, hyperkalemia, dehydration, acute medical debility. Given IV fluids. Renal offensive medications discontinued. December 28: Sitting up in bed. Tired. Daughter at the bedside. She has been getting Moffit 4 times a day as ordered at the [facility]. Discussed with the patient and the daughter the bedside. We'll consult orthopedics because of increased pain. From a medical standpoint. No further narcotics indicated. K pad and icepack to be given locally. Getting IV fluids. Diet discussed. Some improvement in kidney function. Every 4 hours for another 24 hours. Active Medications Acetaminophen (Acetaminophen Tab 325 Mg Tab) 650 mg PO Q4HR PRN PRN Reason: Fever and/ or Pain Last Admin: 12/27/21 11:09 Dose: 650 mg Hydrocodone Bitart/Acetaminophen (Hydrocodone/Apap 10-325mg 1 Each Tab) 1 each PO Q6H PRN PRN Reason: Moderate Pain Last Admin: 12/28/21 12:06 Dose: 1 each Albuterol/Ipratropium (Ipratropium-Albuterol 3 Ml Neb) 3 ml INHALATION RT-Q4H PRN PRN Reason: Shortness Of Breath Or Wheezing Albuterol/Ipratropium (Ipratropium-Albuterol 3 Ml Neb) 3 ml INHALATION RT-TID INOCENCIO Last Admin: 12/28/21 11:35 Dose: 3 ml Allopurinol (Allopurinol 100 Mg Tab) 50 mg PO DAILY [facility] Last Admin: 12/28/21 08:30 Dose: 50 mg Calcium Carbonate/Glycine (Calcium Carbonate 500 Mg Chewable) 1,000 mg PO Q4HR PRN PRN Reason: Dyspepsia Dicyclomine HCl (Dicyclomine 10 Mg Cap) 10 mg PO TID@0600,1400,2200 [facility] Last Admin: 12/28/21 14:32 Dose: 10 mg Sodium Chloride (Saline 0.45%) 1,000 mls @ 100 mls/hr IV .Q10H [facility] Last Admin: 12/28/21 08:29 Dose: Not Given Lactulose (Lactulose 20 Gm/30 Ml Cup) 20 gm PO DAILY PRN PRN Reason: Constipation Levothyroxine Sodium (Levothyroxine 100 Mcg Tab) 100 mcg PO DAILY@0600 [facility] Last Admin: 12/28/21 05:55 Dose: 100 mcg Morphine Sulfate (Morphine Sulfate 4 Mg/Ml Syringe) 4 mg IV Q6HR PRN PRN Reason: Pain Scale 8 to 10 Last Admin: 12/28/21 10:29 Dose: 4 mg Naloxone HCl (Naloxone 0.4 Mg/Ml 1 Ml Vial) 0.2 mg IV Q2M PRN PRN Reason: Opioid Reversal Ondansetron HCl (Ondansetron 4 Mg/2 Ml Vial) 4 mg IVP Q8HR PRN PRN Reason: Nausea And Vomiting Pantoprazole Sodium (Pantoprazole 40 Mg Tablet) 40 mg PO BID@0800,1700 [facility] Last Admin: 12/28/21 08:31 Dose: 40 mg Past medical history to include: fibromyalgia, GERD, GI bleed, hypertension, osteoarthritis, hypothyroid, pacemaker for tachybradycardia syndrome, paroxysmal atrial flutter fibrillation, severe osteoporosis, esophageal stricture with dilatation, esophagitis Past surgical history to include: Appendectomy, cardiac ablation, ear surgery, pacemaker, or on her fourth left lower lobe, esophageal dilatation, pacemaker, cardiac ablation, Social history: Does not smoke or drink alcohol. Lives alone. Physical examination: VITAL SIGNS: 97.3, 75, 16, 110/56, 98% room air GENERAL: , reclining in bed, awake, tired EYES: Pupils equal. Conjunctiva pale. HEENT: External appearance of nose and ears normal, oral cavity grossly normal. NECK: JVD not raised; masses not palpable. HEART: First and second heart sounds are normal; no edema. LUNGS: Respiratory rate normal; clear to auscultation. ABDOMEN: Soft, nontender, liver spleen not palpable, no masses palpable. PSYCH: [Alert and oriented x3; mood and affect anxious MUSCULOSKELETAL: Evidence of OA especially in the hands and knees INVESTIGATIONS, reviewed in the clinical context: December 28: WBC 10.5, hemoglobin 9.8, platelets 422 potassium 4.7 BUN 99 creatinine 3.03 Ultrasound: Possible evidence of medical renal disease White count 12.5 hemoglobin 10.5 platelets 483 potassium 6.1 Admission labs: WBC 11.4 hemoglobin 10.5 platelets 507 potassium 8.6 BUN 129 creatinine 5.3 COVID 19 PCR: Not detected EKG tracing personally reviewed by me-atrial pacemaker Previous labs: Creatinine 2.4 on December 21, 0.85 on December 16 Assessment and plan: -Hyperkalemia from acute kidney injury, also patient being on potassium supplement, Aldactone, Lasix: Better Glucose. Insulin. Lokelma. Renal diet. Bicarbonate. Nephrology consult. -Acute severe kidney injury combination of ATN and prerenal, patient is also on Voltaren, Lasix, Aldactone,: Slow to respond Discontinued: Aldactone, Lasix,. IV fluids. Continue. Follow with nephrology -Paroxysmal atrial flutter with a prior history of ablation Cordarone.. -Chronic esophagitis Protonix 40 mg twice a day -Essential hypertension Lopressor 50 mg twice a day -Primary osteoarthritis Pain medications -Depression -Hypothyroidism Synthroid 100 g a day -Esophageal dysmotility -Anxiety but otherwise specified Xanax when necessary -Chronic esophageal constriction with repeated dilatations -Pacemaker for tachybradycardia syndrome. -Mild protein calorie malnutrition from decreased oral intake Ensure -Increased pain at the left femur recent operative site. Heating pad and ice pack ordered. Continue narcotics as before. No indication for increase in dose. Consult orthopedics to make sure postop is fine. Continue IV fluids. Follow labs. K pad. Ice pack. Care was discussed at length with the patient and daughter the bedside. rationale for not increasing narcotics. Discussed with the patient and daughter. Also discussed the nurse. Consult orthopedics. Follow labs. Total time spent about 40 minutes with over 25 minutes of discussion. Diet. Discussed with the patient, including increasing food supplement
--- NOTE | 2021-12-29 01:23 | CONS ---
CONSULTATION REASON FOR CONSULT: Acute kidney injury and hyperkalemia. HISTORY OF PRESENT ILLNESS: The patient is a 76-year-old female with chronic kidney disease, NKF stage 3 with baseline creatinine about 1.2 mg/dL. I do see a serum creatinine as low as 0.8 on 12/16/2021. However, this was while the patient was likely receiving IV fluids. The patient is admitted to the hospital with complaints of increased weakness and fatigue. She was not able to tolerate any oral intake. The patient also complained of increased pain in her left leg. Note that the patient is status post left proximal femur open reduction and internal fixation with IM thu on 12/09/2021. The fracture occurred after a fall. This admission, the patient is noted to have a serum creatinine of 5.3 mg/dL and a potassium of 8.6 mEq/L. The patient was also acidotic with CO2 of 14. The patient is seen in the ER. She is quite upset and starts crying because of pain in her left leg. PAST MEDICAL HISTORY: Significant for osteoarthritis, chronic atrial fibrillation, coronary artery disease, COPD, fibromyalgia, gastroesophageal reflux disease hypertension, TN, osteoarthritis, tachy-meng syndrome, esophageal strictures, severe osteoporosis, vertigo. PAST SURGICAL HISTORY: Appendectomy, cardiac ablation, cholecystectomy, cardiac catheterization, hysterectomy, pacemaker, tonsillectomy, previous orthopedic surgery, dilatation of the esophagus, colonoscopy, pacemaker placement, bilateral stapedectomy knees, hernia repair. SOCIAL HISTORY: Negative for smoking, drug abuse or alcohol abuse. MEDICATIONS: Prior to admission multiple, included: 1. Lasix. 2. Bentyl. 3. Zyloprim. 4. Lopressor. 5. Aldactone. 6. Voltaren. 7. Vitamin D. 8. Synthroid. 9. Calcitriol. 10.Atarax. 11.Magnesium. 12.Amiodarone. 13.Tylenol. 14.Lasix. 15.Aspirin. 16.Milk of magnesia. 17.Protonix. 18.Potassium. ALLERGIES: Include tape, Eliquis, Celebrex, Zoloft, Bactrim, cholestyramine. PHYSICAL EXAMINATION: GENERAL: The patient is comfortable. She is upset and crying, not in any acute distress. VITAL SIGNS: Blood pressure 102/56, heart rate is 50 per minute, the patient is afebrile. HEART: S1, S2. LUNGS: Bilateral breath sounds are heard. ABDOMEN: Soft, nontender. LOWER EXTREMITIES: Shows trace edema left lower extremity. 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 LABORATORY DATA: Show sodium 135, potassium 8.6, chloride 106, BUN 129, serum creatinine 5.3, hemoglobin 10.5 g/dL. UA, not available. ASSESSMENT: 1. Acute kidney injury, secondary to hypotension and NSAIDs, status post recent surgery, most likely acute tubular necrosis postoperatively as well. Definitely there was component of hypovolemia and possible underlying urine retention as well as the patient had Greene catheter placed. I will continue with IV fluids for now. Check ultrasound of the kidneys. Check urinalysis and avoid any NSAIDs. We will hold off on hemodialysis as patient has had good urine output. Expect potassium to improve. 2. Hyperkalemia, associated with acute kidney injury, NSAIDs and significant potassium supplementation at home. The patient had possibly underlying urine retention as well. Currently with Greene catheter. Potassium is slowly improving. No plans for hemodialysis at this time. 3. Metabolic acidosis, associated with acute kidney injury, hypotension, possible lactic acidosis, I will start bicarb drip. 4. Status post recent left leg surgery with open reduction internal fixation and intramedullary thu, status post fracture. The surgery was on December 09, 2021. PLAN: Continue with Greene catheter. Repeat labs this evening. Start bicarb drip, Lokelma p.o., and repeat labs in a.m. check UA, check ultrasound of the kidneys. Thank you for this consultation. We will continue to follow the patient with you during her hospitalization. MMODL / IJN: [id number] /
[2021-12-29] MEDS: SODIUM CHLORIDE 0.45% 1,000 ML IV SCH ×2 (04:00→13:13)
[2021-12-29] MEDS: MORPHINE SULFATE 4 MG/ML SYRINGE IV PRN ×3 (06:13→22:08)
--- NOTE | 2021-12-29 06:20 | PN ---
PROGRESS NOTE SUBJECTIVE: The patient is seen for followup for acute kidney injury and severe hyperkalemia. The patient is currently sitting in her bed. Daughter is present at bedside. She remains upset and is still crying. Blood pressure has improved. The patient is maintained on IV fluids. PHYSICAL EXAMINATION: VITAL SIGNS: On examination today, blood pressure was 119/65, heart rate 82 per minute. She is afebrile. HEART: S1, S2. LUNGS: Bilateral breath sounds are heard. ABDOMEN: Soft, nontender. EXTREMITIES: Lower extremities show no significant edema. 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 LABORATORY DATA: Show hemoglobin 9.8, sodium 139, potassium 4.7, BUN 99, serum creatinine 3.03. ASSESSMENT: 1. Acute kidney injury mostly acute tubular necrosis and associated with NSAIDs, currently improving. Some degree of hypovolemia also present. 2. Hyperkalemia associated with acute kidney injury, metabolic acidosis, potassium supplementation, currently improving. 3. Metabolic acidosis, now improved. 4. Status post recent left leg surgery with open reduction and internal fixation and intramedullary thu on 12/09/2021, status post fall. PLAN: Continue with current IV fluids. Acidosis has improved. Hyperkalemia has improved as well. Continue with indwelling Greene catheter as well for now. Repeat labs in a.m. Avoid any further NSAIDs. Continue to hold off Aldactone as well for now. MMODL / IJN: [id number] /
[2021-12-29] MEDS: IPRATROPIUM-ALBUTEROL 3 ML NEB INHALATION SCH ×3 (08:31→19:56)
--- NOTE | 2021-12-29 10:08 | CT ---
EXAM: CT Abdomen and Pelvis Without Intravenous Contrast CLINICAL HISTORY: ITS.REASON CT Reason: Abdominal pain/hematuria with clots TECHNIQUE: Axial computed tomography images of the abdomen and pelvis without intravenous contrast. CTDI is 6.27 mGy and DLP is 327.3 mGy-cm. This CT exam was performed using one or more of the following dose reduction techniques: automated exposure control, adjustment of the mA and/or kV according to patient size, and/or use of iterative reconstruction technique. COMPARISON: No relevant prior studies available. FINDINGS: Lung bases: Bibasilar airspace disease/atelectasis, left worse than right. Pleural space: Tiny bilateral pleural effusions. Heart: Mild pericardial thickening versus tiny pericardial fluid. ABDOMEN: Liver: Unremarkable. Gallbladder and bile ducts: Status post cholecystectomy. Dilated common bile duct likely related to prior cholecystectomy. Follow-up as indicated. Pancreas: Unremarkable. No ductal dilation. Spleen: Unremarkable. No splenomegaly. Adrenals: Unremarkable. No mass. Kidneys and ureters: Slight fullness of the right renal pelvis, nonspecific. This may partly reflect extrarenal pelvis. No renal calcification. Stomach and bowel: Scattered air-fluid levels in small bowel loops, nonspecific. Moderate distention of the large bowel with scattered air- fluid levels. Apparent nodularity in the wall of the colon. This may reflect diffuse colitis. Follow-up recommended as indicated. Moderate retained stool in the sigmoid colon. PELVIS: Appendix: Appendix not well-visualized. Bladder: Greene catheter in decompressed bladder. No stones. Reproductive: Unremarkable as visualized. ABDOMEN and PELVIS: Intraperitoneal space: Small free fluid in the pelvis. No free air. Bones/joints: Streak artifact from left hip surgical screws limit evaluation. Degenerative changes in the spine. Compression deformity of L4, probably chronic. No dislocation. Soft tissues: Unremarkable. Vasculature: Unremarkable. No abdominal aortic aneurysm. Lymph nodes: Unremarkable. No enlarged lymph nodes. Other findings: Absent contrast limit evaluation. IMPRESSION: 1. Moderate distention of the large bowel with scattered air-fluid levels and nodular wall thickening which may reflect diffuse ileus and colitis. Follow-up recommended to exclude other etiology underlying lesion. 2. Small free fluid. No free air. 3. No renal calculus. 4. Dilated common bile duct which may partly reflect prior cholecystectomy. Follow-up as indicated. 5. Tiny bilateral pleural effusion and bilateral patchy lower lobe airspace disease/atelectasis.
--- NOTE | 2021-12-29 10:15 | P.PN ---
Progress Note - Text Progress Note Date: 12/29/21 The patient is seen and examined at bedside. I reviewed the dictation from yesterday and review the imaging and I am in agreement. She had undergone surgical internal fixation of her left subtrochanteric femur fracture on 12/10/2021. She was initially at [facility] would rehab and is now residing at home. She is admitted in regards to acute renal injury and deficiency and is being managed by medicine. She continues have pain at her left hip and has very significant difficulty with any mobilization and movement on the left. She has remained nonweightbearing left lower extremity. She remains afebrile At her left hip the incision sites are clear. There is mild swelling but no erythema no drainage. Her thigh and calf soft. She has sustained dorsal flexion plantarflexion and is able to slightly bend her knee. She has significant pain in her hip when she tries to this and her effort is limited due to her pain. Her abdomen is distended and mildly tender. X-rays of her left hip show the hardware intact. The proximal screws are somewhat prominent but appears stable Assessment and plan 2-1/2 weeks status post open reduction internal fixation of left hip subtrochanteric femur fracture, stable Limited mobilization ambulation due to femur fracture Abdominal distention Acute renal insufficiency The patient's left hip appears to be healing adequately in terms of stability. She needs to remain nonweightbearing on left lower extremity but should try to increase her motion at her left hip and lower extremity. We will have physical therapy see her to try to improve her mobilization and function in her left leg and lower extremity the patient continue management in regards to her abdominal distention and renal issues with medicine service.
--- NOTE | 2021-12-29 11:02 | P.PN ---
Subjective Patient is seen for follow-up for acute kidney injury mostly ATN and hypovolemia. Currently maintained on IV fluids with improving renal function. Patient has been complaining of abdominal pain. She had low-grade fever last night and had a CT of the abdomen and pelvis done this morning. Urine was also noted to be bloody in the Greene catheter. CT abdomen shows scattered air-fluid levels with bowel wall thickening suggesting possible colitis. Serum creatinine down to 3.0 today from 5.3 on initial admission. Potassium is also improved to 4.7 from 8.6 on admission. Objective - Vital Signs Vital signs: Vital Signs Temp 98.6 F 12/29/21 07:49 Pulse 74 12/29/21 08:44 Resp 14 12/29/21 07:49 BP 127/73 12/29/21 07:49 Pulse Ox 95 12/29/21 07:49 FiO2 50 12/28/21 11:28 Intake & Output 12/28/21 12/29/21 12/29/21 18:59 06:59 18:59 Output Total 800 1550 Balance -800 -1550 Weight 45 kg Output: Urine 800 1550 Other: Voiding Method Indwelling Catheter Indwelling Catheter Indwelling Catheter - Exam Awake, comfortable, not in any acute distress Examination of the heart S1 and S2 Exertion lungs bilateral breath sounds are heard Abdomen is soft, tenderness noted mid abdomen Examination of the lower extremity shows no edema 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 Acute kidney injury, ATN as well as secondary to NSAIDs and hypovolemia. Currently improving. UA is benign and there is no evidence of obstruction on ultrasound and CT 2. Hyperkalemia associated with acute kidney injury, metabolic acidosis, potassium supplementation currently improving 3. Severe metabolic acidosis now improved 4. Status post fall and recent left leg surgery with open reduction internal fixation and intramedullary thu on 12/10/2019 5. Abdominal pain with CT suggesting possible colitis and ileus Plan: Continue current IV fluids Avoid nephrotoxic agents Repeat labs in a.m. Recommended antibiotics for possible colitis
[2021-12-29] MEDS: HYDROcodone/APAP 10-325MG 1 EACH TAB PO PRN (11:26)
[2021-12-29] MEDS: allopurinoL 100 MG TAB PO SCH (12:05)
[2021-12-29] MEDS: PANTOPRAZOLE 40 MG TABLET PO SCH ×2 (12:05→17:11)
[2021-12-29] MEDS: LEVOTHYROXINE 100 MCG TAB PO SCH (12:05)
[2021-12-29] MEDS: DICYCLOMINE 10 MG CAP PO SCH ×3 (12:05→22:05)
[2021-12-29] MEDS: ONDANSETRON 4 MG/2 ML VIAL IVP PRN (13:13)
[2021-12-29 14:02] LABS: Calcium 9.3 mg/dL (8.4-10.2); Potassium 3.9 mmol/L (3.5-5.1)
--- NOTE | 2021-12-29 14:18 | P.PN ---
Progress Note - Text Progress Note Date: 12/29/21 Chief Complaint: We tired This is a very pleasant 76-year-old patient of Dr. Wray. Chronic stable medical conditions include esophagitis, peptic ulcer disease, chronic essential hypertension, primary osteoarthritis of multiple joints bilateral, depression, hypothyroidism, esophageal dysmotility, anxiety not otherwise specified,, esophageal constriction with repeated dilatation. Patient is followed at [facility] for the same. Patient on December 09 underwent left proximal femur open reduction internal fixation with IM thu. Secondary to fall. Patient was then discharged to rehab. Patient now presents feeling really weak and tired. Jerking/myoclonic movements. Not able to eat or drink much. Severely worsened renal function. Normally has a bowel movement every other day. Greene catheter was placed in the ER. Has had significant pain at the operative site. Initial potassium was 8.6. Patient is given a cocktail when the potassium down. Admitted with acute severe kidney injury, hyperkalemia, dehydration, acute medical debility. Given IV fluids. Renal offensive medications discontinued. December 28: Sitting up in bed. Tired. Daughter at the bedside. She has been getting [place] 4 times a day as ordered at the F. Discussed with the patient and the daughter the bedside. We'll consult orthopedics because of increased pain. From a medical standpoint. No further narcotics indicated. K pad and icepack to be given locally. Getting IV fluids. Diet discussed. Some improvement in kidney function. Every 4 hours for another 24 hours. December 29: Reclining in bed. Feels better. Seen by orthopedics. No fever any further intervention. Abdomen distended. Computed tomography scan showing ileus. Abdominal x-ray ordered. Consult Dr. Booth. Nausea present. No vomiting. No abdominal discomfort. Active Medications Acetaminophen (Acetaminophen Tab 325 Mg Tab) 650 mg PO Q4HR PRN PRN Reason: Fever and/ or Pain Last Admin: 12/27/21 11:09 Dose: 650 mg Hydrocodone Bitart/Acetaminophen (Hydrocodone/Apap 10-325mg 1 Each Tab) 1 each PO Q6H PRN PRN Reason: Moderate Pain Last Admin: 12/29/21 11:26 Dose: 1 each Albuterol/Ipratropium (Ipratropium-Albuterol 3 Ml Neb) 3 ml INHALATION RT-Q4H PRN PRN Reason: Shortness Of Breath Or Wheezing Albuterol/Ipratropium (Ipratropium-Albuterol 3 Ml Neb) 3 ml INHALATION RT-TID [facility] Last Admin: 12/29/21 12:02 Dose: Not Given Allopurinol (Allopurinol 100 Mg Tab) 50 mg PO DAILY [facility] Last Admin: 12/29/21 12:05 Dose: Not Given Calcium Carbonate/Glycine (Calcium Carbonate 500 Mg Chewable) 1,000 mg PO Q4HR PRN PRN Reason: Dyspepsia Dicyclomine HCl (Dicyclomine 10 Mg Cap) 10 mg PO TID@0600,1400,2200 [facility] Last Admin: 12/29/21 13:13 Dose: 10 mg Sodium Chloride (Saline 0.45%) 1,000 mls @ 100 mls/hr IV .Q10H [facility] Last Admin: 12/29/21 13:13 Dose: 100 mls/hr Lactulose (Lactulose 20 Gm/30 Ml Cup) 20 gm PO DAILY PRN PRN Reason: Constipation Last Admin: 12/29/21 11:27 Dose: 20 gm Levothyroxine Sodium (Levothyroxine 100 Mcg Tab) 100 mcg PO DAILY@0600 [facility] Last Admin: 12/29/21 12:05 Dose: Not Given Morphine Sulfate (Morphine Sulfate 4 Mg/Ml Syringe) 4 mg IV Q6HR PRN PRN Reason: Pain Scale 8 to 10 Last Admin: 12/29/21 06:13 Dose: 4 mg Naloxone HCl (Naloxone 0.4 Mg/Ml 1 Ml Vial) 0.2 mg IV Q2M PRN PRN Reason: Opioid Reversal Ondansetron HCl (Ondansetron 4 Mg/2 Ml Vial) 4 mg IVP Q8HR PRN PRN Reason: Nausea And Vomiting Last Admin: 12/29/21 13:13 Dose: 4 mg Pantoprazole Sodium (Pantoprazole 40 Mg Tablet) 40 mg PO BID@0800,1700 [facility] Last Admin: 12/29/21 12:05 Dose: Not Given Past medical history to include: fibromyalgia, GERD, GI bleed, hypertension, osteoarthritis, hypothyroid, pacemaker for tachybradycardia syndrome, paroxysmal atrial flutter fibrillation, severe osteoporosis, esophageal stricture with dilatation, esophagitis Past surgical history to include: Appendectomy, cardiac ablation, ear surgery, pacemaker, or on her fourth left lower lobe, esophageal dilatation, pacemaker, cardiac ablation, Social history: Does not smoke or drink alcohol. Lives alone. Physical examination: VITAL SIGNS: 98.2, 74, 15, 1 22 x 66, 96% room air GENERAL: , reclining in bed, awake, tired EYES: Pupils equal. Conjunctiva pale. HEENT: External appearance of nose and ears normal, oral cavity grossly normal. NECK: JVD not raised; masses not palpable. HEART: First and second heart sounds are normal; no edema. LUNGS: Respiratory rate normal; clear to auscultation. ABDOMEN: Soft, distended nontender, liver spleen not palpable, no masses palpable. PSYCH: [Alert and oriented x3; mood and affect anxious MUSCULOSKELETAL: Evidence of OA especially in the hands and knees INVESTIGATIONS, reviewed in the clinical context: December 29: Potassium 3.9, BUN 39, creatinine 1.27 December 28: WBC 10.5, hemoglobin 9.8, platelets 422 potassium 4.7 BUN 99 creatinine 3.03 Ultrasound: Possible evidence of medical renal disease White count 12.5 hemoglobin 10.5 platelets 483 potassium 6.1 Admission labs: WBC 11.4 hemoglobin 10.5 platelets 507 potassium 8.6 BUN 129 creatinine 5.3 COVID 19 PCR: Not detected EKG tracing personally reviewed by me-atrial pacemaker Previous labs: Creatinine 2.4 on December 21, 0.85 on December 16 Assessment and plan: -Hyperkalemia from acute kidney injury, also patient being on potassium supplement, Aldactone, Lasix: Better Glucose. Insulin. Lokelma. Renal diet. Bicarbonate. Nephrology consult. -Acute severe kidney injury combination of ATN and prerenal, patient is also on Voltaren, Lasix, Aldactone,: Improving Discontinued: Aldactone, Lasix,. IV fluids. Continue. Follow with nephrology -Acute ileus.: New diagnosis. Abdominal x-ray. Consult surgery. -Paroxysmal atrial flutter with a prior history of ablation Cordarone.. -Chronic esophagitis Protonix 40 mg twice a day -Essential hypertension Lopressor 50 mg twice a day -Primary osteoarthritis Pain medications -Depression -Hypothyroidism Synthroid 100 g a day -Esophageal dysmotility -Anxiety but otherwise specified Xanax when necessary -Chronic esophageal constriction with repeated dilatations -Pacemaker for tachybradycardia syndrome. -Mild protein calorie malnutrition from decreased oral intake Ensure -Increased pain at the left femur recent operative site. Heating pad and ice pack ordered. Continue narcotics as before. No indication for increase in dose. Seen by orthopedics. No change in plan. Continue IV fluids. Abdominal x-ray. Consult surgery. Care was discussed with the patient daughter the bedside. Explained that because of decreased morbid ity, narcotics, decreased oral intake, likely cause of ileus.
--- NOTE | 2021-12-29 14:59 | P.GSCN ---
History of Present Illness Consult date: 12/29/21 History of present illness: CHIEF COMPLAINT: Weakness Reason for consult: Ileus HISTORY OF PRESENT ILLNESS: This is a 76-year-old female who presented to the hospital with generalized weakness and evidence of acute kidney injury and hyperkalemia. Patient has a known history of chronic constipation and rectal prolapse. She had recent orthopedic surgery for femur fracture and has been taking Parker for pain. She is currently residing at a skilled nursing or rehab. Patient followed by nephrology for her acute kidney injury which is showing improvement with IV fluids. Patient complains of abdominal pain and abdominal distention. She reports that symptoms started about 6 days ago. Her last bowel movement was about 1 week ago. She denies any flatus. She has been having nausea and did have 2 episodes of vomiting yesterday. She reports that her abdomen continues to become more distended after eating or drinking anything. She reports decrease in appetite. Denies any prior history of bowel obstruction. Her abdominal surgical history includes bilateral inguinal hernia repair, cholecystectomy, hiatal hernia repair, appendectomy and hysterectomy. Patient also has history of peptic ulcer disease and esophageal strictures which had required dilation. Past medical history does include atrial fibrillation, pacemaker and coronary artery disease. Patient is not on any anticoagulation. PAST MEDICAL HISTORY: See list. PAST SURGICAL HISTORY: See list. MEDICATIONS: See list. ALLERGIES: See list. SOCIAL HISTORY: No illicit drug use. REVIEW OF SYSTEMS: CONSTITUTIONAL: Denies fever or chills. HEENT: Denies blurred vision, vision changes, or eye pain. Denies hemoptysis CARDIOVASCULAR: Denies chest pain or pressure. RESPIRATORY: No shortness of breath. GASTROINTESTINAL: See HPI for pertinent findings HEMATOLOGIC: Denies bleeding disorders. GENITOURINARY: Denies any blood in urine or increased urinary frequency. SKIN: Denies pruitis. Denies rash. PHYSICAL EXAM: VITAL SIGNS: Reviewed GENERAL: Well-developed in no acute distress. HEENT: No sclera icterus. Extraocular movements grossly intact. Moist buccal mucosa. Head is atraumatic, normocephalic. No nasal drainage. ABDOMEN: Diffuse tenderness with light palpation. Distended and firm NEUROLOGIC: Alert and oriented. Cranial nerves II through XII grossly intact. LABORATORY DATA: WBC 12.5 down to 10.5 Hgb 9.8 platelets 422 Urinalysis negative IMAGING: Computed tomography scan abdomen and pelvis moderate distention of the large bowel with scattered air-fluid levels and nodular wall thickening which may reflect diffuse ileus and colitis. Follow-up recommended to exclude other etiology underlying lesion. Small free fluid. No free air. No renal calculus. Dilated common bile duct which may be partially reflect prior cholecystectomy. Tiny bilateral pleural effusion and bilateral patchy lower lobe airspace disease/atelectasis. ASSESSMENT: 1. Abdominal pain with abdominal distention. Computed tomography scan findings showing moderate distention in the large bowel with scattered air-fluid levels and nodular wall thickening which may reflect ileus and colitis 2. Acute kidney injury 3. Hyperkalemia 4. Chronic constipation PLAN: -Further recommendations forthcoming per surgeon -Make patient nothing by mouth -Continue IV fluids -Continue to monitor Physician Pewter Caster note has been reviewed by physician. Signing provider agrees with the documented findings, assessment, and plan of care. I have personally seen and examined the patient, reviewed the FENCE BUILDER /PAs history, exam and MDM and agree with the assessment and plan as written. Based on total visit time, I have performed more than 50% of the visit. As above: Patient having complaints of abdominal bloating and pain. Feels tight. Apparently she has a history of chronic constipation. Last colonoscopy 2 years ago was normal. Patient was at the skilled nursing and per the daughter the patient is very apprehensive about using a bedpan or having any sort of accidents. Patient with recent left femur fracture so ambulation is very difficult. She was not using the commode well because of the discomfort in the left femur. CAT scan and x-rays appear most consistent with colonic ileus/ constipation. Cannot rule out some narrowing of the descending colon on CAT scan. Non-prep Gastrografin enema is ordered for tomorrow morning to evaluate for colonic obstruction. Keep nothing by mouth for now. Dulcolax suppository daily. Past Medical History Past Medical History: Atrial Fibrillation, Blood Disorder, Coronary Artery Disease (CAD), Chest Pain / Angina, COPD, Fibromyalgia, GERD/Reflux, GI Bleed, Hypertension, Myocardial Infarction (CA), Musculoskeletal Disorder, Osteoarthritis (OA), Thyroid Disorder Additional Past Medical History / Comment(s): Pacemaker for Syncope/Tachybrady Syndrome. Hx RHEUMATIC FEVER. Heart murmur, chronic back and bilateral shoulder pain. SEVERE OSTEOPROSIS, Vertigo, Degenerative Joint Disease, GI ulcers, esophagitis/esophageal stricture, partially blocked bile duct, PROBLEMS WITH SW ALLOWING, "no symptoms of COPD." FALLS "Cannot lie down for long without having back pain." Last Myocardial Infarction Date:: 2002 History of Any Multi-Drug Resistant Organisms: None Reported Past Surgical History: Appendectomy, Cardiac Ablation, Cholecystectomy, Ear Surgery, Heart Catheterization, Hysterectomy, Orthopedic Surgery, Pacemaker, Tonsillectomy Additional Past Surgical History / Comment(s): ORIF LEFT LOWER ARM, HAS HARDWARE, numerous DILATATION OF ESOPHAGUS, biopsies were negative, colonoscopy, Pacemaker (ADAPTA) placed 07/07 at [facility], bilateral stapedectomies(stainless steel in both ears), Hiatal Hernia repair, inguinal and femoral hernia repairs, "cement placed in back, due to broken back/pelvis". Left Femur Surgery 12/09/21 Past Anesthesia/Blood Transfusion Reactions: Family History of Problems w/ Anesthesia, Motion Sickness, Postoperative Nausea & Vomiting (PONV) Additional Past Anesthesia/Blood Transfusion Reaction / Comm: No problems with prior blood transfusion. BROTHER HAS PONV. Type of Cardiac Device: Permanent Pacemaker Device Placement Date:: 06/2016 Past Psychological History: No Psychological Hx Reported Additional Psychological History / Comment(s): DENIES ANY HX OF PROBLEM Smoking Status: Never smoker Past Alcohol Use History: None Reported Additional Past Alcohol Use History / Comment(s): Lives alone Past Drug Use History: None Reported - Past Family History Brother(s) Family Medical History: Cancer Additional Family Medical History / Comment(s): Throat cancer. Father Family Medical History: Pneumonia Additional Family Medical History / Comment(s): EMPHYSEMA. Mother Family Medical History: COPD, Rheumatoid Arthritis (RA) Additional Family Medical History / Comment(s): EMPHYSEMA. Medications and Allergies Home Medications Medication Instructions Recorded Confirmed Type SUMAtriptan succinate [Imitrex] 50 mg PO BID PRN 02/15/16 12/27/21 History Dicyclomine [Bentyl] 10 mg PO TID@0600,1400,2200 05/10/19 12/27/21 History Furosemide [Lasix] 40 mg PO DAILY@1500 02/06/20 12/27/21 History L.acidoph,Paracasei, B.lactis 1 cap PO DAILY@1700 02/06/20 12/27/21 History [Probiotic] allopurinoL [Zyloprim] 50 mg PO DAILY 02/06/20 12/27/21 History Metoprolol Tartrate [Lopressor] 50 mg PO BID@0800,1700 10/05/20 12/27/21 History Albuterol Inhaler [Ventolin Hfa 2 puff INHALATION RT-Q4H PRN 08/04/21 12/27/21 History Inhaler] Spironolactone [Aldactone] 25 mg PO DAILY 08/04/21 12/27/21 History Diclofenac Sodium [Voltaren] 75 mg PO BID@0800,1700 12/09/21 12/27/21 History Ergocalciferol [Vitamin D2 (1250 1,250 mcg PO FR 12/09/21 12/27/21 History Mcg = 15810 Iu)] Levothyroxine Sodium 100 mcg PO DAILY@59912/09/21 12/27/21 History Magnesium Gluconate [Magonate] 750 mg PO DAILY@169912/09/21 12/27/21 History calcitrioL [Calcitriol] 0.25 mcg PO FR 12/09/21 12/27/21 History hydrOXYzine HCL [Atarax] 25 mg PO Q6H PRN 12/09/21 12/27/21 History polyethylene glycoL 3350 [Miralax] 17 gm PO DAILY 12/09/21 12/27/21 History Acetaminophen Tab [Tylenol] 650 mg PO Q4HR PRN tab 12/16/21 12/27/21 Rx Ipratropium-Albuterol Nebulize 3 ml INHALATION RT-TID each 12/16/21 12/27/21 Rx [Duoneb 0.5 mg-3 mg/3 ml Soln] Lactulose [Cephulac] 20 gm PO TID PRN ml 12/16/21 12/27/21 Rx Amiodarone [Cordarone] See Taper PO DIRECTED 12/27/21 12/27/21 History Aspirin 325 mg PO DAILY@169912/27/21 12/27/21 History Ensure Enlive 237 ml PO TID@0800,1200,1700 12/27/21 12/27/21 History Furosemide [Lasix] 80 mg PO DAILY@0612/27/21 12/27/21 History HYDROcodone/APAP 10-325MG [Parker 1 tab PO Q6H PRN 12/27/21 12/27/21 History 10] Ipratropium-Albuterol Nebulize 3 ml INHALATION RT-TID PRN 12/27/21 12/27/21 History [Duoneb 0.5 mg-3 mg/3 ml Soln] Magnesium Hydroxide [Milk of 7,200 mg PO DAILY PRN 12/27/21 12/27/21 History Magnesia Concentrate] Melatonin 1 mg PO HS 12/27/21 12/27/21 History Na Phos,M-B/Na Phos,Di-Ba [Fleet 133 ml RECTAL DAILY PRN 12/27/21 12/27/21 History Adult] Pantoprazole [Protonix] 40 mg PO BID@0800,1700 12/27/21 12/27/21 History Potassium Chloride [Klor-Con M20] 20 meq PO DAILY@1700 12/27/21 12/27/21 History Potassium Chloride [Klor-Con M20] 40 meq PO DAILY 12/27/21 12/27/21 History Sennosides-Docusate Sodium 1 tab PO 12/27/21 12/27/21 History [Senokot-S] Triamcinolone 0.5% Ointment 1 applic TOPICAL BID 12/27/21 12/27/21 History bisacodyL [Dulcolax] 10 mg RECTAL DAILY PRN 12/27/21 12/27/21 History Allergies Allergy/AdvReac Type Severity Reaction Status Date / Time adhesive Allergy RASH FROM Verified 12/27/21 06:51 EKG STICKERS apixaban [From Eliquis] Allergy Rash/Hives Verified 12/27/21 06:51 celecoxib [From Celebrex] Allergy Rash/Hives Verified 12/27/21 06:51 sertraline HCl [From Zoloft] Allergy Rash/Hives Verified 12/27/21 06:51 sulfamethoxazole Allergy Anaphylaxis Verified 12/27/21 06:51 [From Bactrim] trimethoprim [From Bactrim] Allergy Anaphylaxis Verified 12/27/21 06:51 cholestyramine AdvReac DIZZY/CONFU Verified 12/27/21 06:51 SED Surgical - Exam Vital Signs Temp Pulse Resp BP Pulse Ox 97.8 F 62 16 107/44 100 12/26/21 22:47 12/26/21 22:47 12/26/21 22:47 12/26/21 22:47 12/26/21 22:47 Results - Labs 12/28/21 07:51 12/29/21 12:28 Abnormal Lab Results - Last 24 Hours (Table) 12/29/21 Range/Units 12:28 Chloride 111 H (98-107) mmol/L Carbon Dioxide 21 L (22-30) mmol/L BUN 39 H (7-17) mg/dL Creatinine 1.27 H (0.52-1.04) mg/dL Diabetes panel 12/29/21 Range/Units 12:28 Sodium 144 (137-145) mmol/L Potassium 3.9 (3.5-5.1) mmol/L Chloride 111 H (98-107) mmol/L Carbon Dioxide 21 L (22-30) mmol/L BUN 39 H (7-17) mg/dL Creatinine 1.27 H (0.52-1.04) mg/dL Glucose 90 (74-99) mg/dL Calcium 9.3 (8.4-10.2) mg/dL Calcium panel 12/29/21 Range/Units 12:28 Calcium 9.3 (8.4-10.2) mg/dL Pituitary panel 12/29/21 Range/Units 12:28 Sodium 144 (137-145) mmol/L Potassium 3.9 (3.5-5.1) mmol/L Chloride 111 H (98-107) mmol/L Carbon Dioxide 21 L (22-30) mmol/L BUN 39 H (7-17) mg/dL Creatinine 1.27 H (0.52-1.04) mg/dL Glucose 90 (74-99) mg/dL Calcium 9.3 (8.4-10.2) mg/dL Adrenal panel 12/29/21 Range/Units 12:28 Sodium 144 (137-145) mmol/L Potassium 3.9 (3.5-5.1) mmol/L Chloride 111 H (98-107) mmol/L Carbon Dioxide 21 L (22-30) mmol/L BUN 39 H (7-17) mg/dL Creatinine 1.27 H (0.52-1.04) mg/dL Glucose 90 (74-99) mg/dL Calcium 9.3 (8.4-10.2) mg/dL
--- NOTE | 2021-12-29 16:03 | XR ---
EXAMINATION TYPE: XR femur LT DATE OF EXAM: 12/28/2021 CLINICAL HISTORY: Left femur fracture. TECHNIQUE: Two views of the left femur are obtained. COMPARISON: Prior left femur x-ray December 09, 2021. FINDINGS: New intramedullary thu with 2 large proximal fixating screws and distal transverse smaller fixating screw through oblique subtrochanteric fracture left proximal femur. Improved alignment after reduction and fixation noted. Overlying soft tissue is unremarkable. IMPRESSION: As above.
--- NOTE | 2021-12-29 16:14 | XR ---
EXAMINATION TYPE: XR abdomen 2V DATE OF EXAM: 12/29/2021 CLINICAL HISTORY: Pain and distention TECHNIQUE: Supine and upright views of the abdomen are obtained. COMPARISON: CT abdomen and pelvis earlier today. FINDINGS: Persisting gas prominent and dilated stomach along with small and large bowel loops occupy entire abdomen and pelvis extending to the rectum. Cholecystectomy clips are redemonstrated. Partial visualization of a dual-lead pacemaker. No free air. Underlying scoliosis is redemonstrated. Surgical changes left femur is partially imaged. IMPRESSION: Overall nonspecific bowel gas pattern. Severe diffuse ileus would be favored. Findings ar e thought slightly worsened from CT study earlier today.
[2021-12-29] MEDS: bisacodyL 10 MG SUPP RECTAL SCH (17:13)
[2021-12-30] MEDS: ONDANSETRON 4 MG/2 ML VIAL IVP PRN ×2 (00:54→10:56)
[2021-12-30] MEDS: SODIUM CHLORIDE 0.45% 1,000 ML IV SCH ×3 (02:10→23:56)
[2021-12-30] MEDS: MORPHINE SULFATE 4 MG/ML SYRINGE IV PRN ×2 (03:48→08:53)
[2021-12-30] MEDS: LEVOTHYROXINE 100 MCG TAB PO SCH (06:35)
[2021-12-30] MEDS: DICYCLOMINE 10 MG CAP PO SCH ×3 (06:35→19:59)
[2021-12-30] MEDS: IPRATROPIUM-ALBUTEROL 3 ML NEB INHALATION SCH ×3 (07:50→20:07)
[2021-12-30] MEDS ORDERED: DILTIAZEM DRIP BOLUS FROM BAG 1 MG SOLN IV ONE (08:43)
[2021-12-30] MEDS ORDERED: DILTIAZEM 125 MG in SODIUM CHLORIDE 0.9% 100 ML IV SCH (08:45)
--- NOTE | 2021-12-30 08:53 | P.PN ---
Progress Note - Text Progress Note Date: 12/30/21 Orthopedics: History of present illness: Patient is a very pleasant 76-year-old female who is well known to our service who seen and examined at bedside. She is seen for follow-up evaluation for her left hip. She is status post left hip ORIF with intramedullary nail fixation for left subtrochanteric hip fracture performed on 12/10/2021. She was discharged from [facility] to [facility] on 12/16/2021. Patient states she had since been discharged from rehab and has been residing at home. She does continue to have some pain at her left hip. She is currently lying in bed. Dressings over the incision site the left hip have been removed. Surgical sites are clean, dry, and intact. She continues to be nonweightbearing on the left lower extremity. He has not had any change in regards to her left hip since being seen and examined yesterday. She presented to the emergency department for further evaluation after feeling generally weak and tired. She has not been eating or drinking much food. She is being seen by multiple medical providers during her admission including medicine, nephrology, and pulmonology. Patient is currently being treated for acute kidney injury and hyperkalemia. Patient does have multiple other medical diagnoses including hypertension, hypothyroidism, and atrial fibrillation. She was unable to tolerate anticoagulation medications due to ALLERGY. Greene catheter was placed in the emergency department. She is being seen by general surgery Who is planning for non-prep Gastrografin enema this morning to evaluate for colonic obstruction. CT imaging could not rule out some narrowing of the descending colon. Patient does have a history of constipation. She is experiencing abdominal distention and some abdominal pain. Physical Exam Intramedullary Rodding for Subtrochanteric Fracture: Patient is examined lying in bed Patient is awake and alert, and oriented 3 Vital signs stable Adequate chest excursion with deep inspiration and expiration Lower extremity cuffs not currently in place bilaterally Surgical sites of the left hip are clean, dry, and intact; no erythema, purulence, or signs of infection at the surgical site No significant pain with palpation over the left anterior thigh Full range of motion of ankles bilaterally Dorsiflexion, plantarflexion, and extensor hallucis longus positive sustained bilaterally but weaker on the left Patient is unable to lift her left lower extremity off the bed. Neurovascularly intact bilateral lower extremities Capillary refill less than 2 seconds bilateral lower extremities Greene catheter intact Assessment: Status post left hip ORIF with intramedullary nail fixation for left subtrochanteric hip fracture Left hip pain Status post fall Hyperkalemia Acute kidney injury History of atrial fibrillation with unable to tolerate anticoagulation medication due to severe ALLERGIC reaction Coronary artery disease Severe osteoporosis COPD Fibromyalgia Gastroesophageal reflux disease History of GI bleed Hypertension History myocardial infarction Hypothyroidism Chronic constipation Abdominal distention and pain; scheduled for non-prep Gastrografin enema Plan: 1. Patient to remain strict nonweightbearing on the left lower extremity; patient may work with physical therapy to increase mobility and ambulation 2. Surgical incision sites of the left hip remain dry; patient may shower without a dressing intact at this time 3. X-rays of the left femur show intact hardware with some prominence of the proximal screws but appears stable 4. Continue pain control with oral [place] and IV morphine as prescribed as needed for pain control 5. Patient was previously prescribed aspirin 325 mg 1 tab daily for anticoagulation following surgical intervention at her left hip for 30 days at the time of discharge. This medication was prescribed to run through 01/15/2022. Given her other significant medical diagnoses and current treatment, we will defer anticoagulation to medicine at their discretion. 6. From an orthopedic standpoint, patient is clear for discharge. She'll continue with treatment and evaluation of multiple other medical providers for her other medical diagnoses. Following discharge, patient can follow-up with Nate Yepez PA-C or Dr. Odell Lee at [facility] in 2-3 weeks following discharge
[2021-12-30] MEDS: bisacodyL 10 MG SUPP RECTAL SCH (09:41)
[2021-12-30] MEDS: PANTOPRAZOLE 40 MG TABLET PO SCH ×2 (09:41→15:56)
[2021-12-30] MEDS: allopurinoL 100 MG TAB PO SCH (09:41)
--- NOTE | 2021-12-30 11:21 | P.CRDCN ---
History of Present Illness Consult date: 12/30/21 History of present illness: HISTORY OF PRESENT ILLNESS: This is a 76-year-old female with a past medical history significant for recent hip fracture with surgical intervention, hypertension, permanent pacemaker insertion, and paroxysmal atrial fibrillation. Patient follows in the office with Dr. Penn. We have been asked to see the patient in consultation for afib with RVR. Patient is admitted to the hospital secondary to abdominal pain with possible ileus and colitis. She has been followed by general surgery and scheduled for barium enema today. She remains nothing by mouth. Patient examined at the bedside. Patient denies chest pain or pressure. She denies shortness of breath. She reports having palpitations this morning. Telemetry reveals atrial fibrillation with RVR with heart rate in the [id number]. * Telemetry reveals A. fib with RVR * Laboratory data: W BC 10.5. Hemoglobin 9.8. Platelet count 422. Sodium 144. Potassium 3.9. Creatinine 1.27. * Current home cardiac medications include metoprolol tartrate 50 mg twice a day, Lasix 80 mg in the morning and 40 mg in the afternoon, aspirin 325 mg daily, Aldactone 25 mg daily, and amiodarone (dose unknown) * Most recent echocardiogram obtained in September 2021 revealing ejection fraction 52%, moderate MR, severe TR, moderate AR * Cardiac catheterization history: July 2002 revealing normal coronary arteries REVIEW OF SYSTEMS: At the time of my exam: CONSTITUTIONAL: Denies fever or chills. HEENT: Denies blurred vision, vision changes, or eye pain. Denies hemoptysis CARDIOVASCULAR: Denies chest pain. Denies orthopnea. Denies PND. Denies palpitations RESPIRATORY: Denies shortness of breath. GASTROINTESTINAL: Denies abdominal pain. Denies nausea or vomiting. HEMATOLOGIC: Denies bleeding disorders. GENITOURINARY: Denies any blood in urine. SKIN: Denies pruitis. Denies rash. PHYSICAL EXAM: VITAL SIGNS: Reviewed. GENERAL: Well-developed in no acute distress. HEENT: Head is normocephalic. Pupils are equal, round. Sclerae anicteric. Mucous membranes of the mouth are moist. Neck supple. No JVD or thyromegaly LUNGS: Respirations even and unlabored. Lungs essentially clear to auscultation bilaterally. HEART: Tachycardic. Irregular rate and rhythm. S1 and S2 heard. Systolic murmur noted. ABDOMEN: Soft. Mildly distended. EXTREMITIES: Normal range of motion. No clubbing or cyanosis. Peripheral puls es intact. No lower extremity edema NEUROLOGIC: Awake and alert. Oriented x 3. ASSESSMENT: Abdominal pain, possible ileus and colitis Recent hip fracture with surgical intervention Paroxysmal atrial fibrillation with RVR History of permanent pacemaker insertion Hypertension Acute kidney injury Hyperkalemia PLAN: No need to repeat echocardiogram as this was performed and September 2021 at the office Patient is currently NPO and is unable to take her amiodarone or metoprolol. Resume when patient is able to tolerate PO meds Begin IV Cardizem at 5mg/hr with 5mg bolus Patient not on anticoagulation due to history of recurrent GI bleeding Continue telemetry monitoring Further recommendations pending patient course Nurse practitioner note has been reviewed by physician. Signing provider agrees with the documented findings, assessment, and plan of care. Past Medical History Past Medical History: Atrial Fibrillation, Blood Disorder, Coronary Artery Disease (CAD), Chest Pain / Angina, COPD, Fibromyalgia, GERD/Reflux, GI Bleed, Hypertension, Myocardial Infarction (NH), Musculoskeletal Disorder, Osteoarthritis (OA), Thyroid Disorder Additional Past Medical History / Comment(s): Pacemaker for Syncope/Tachybrady Syndrome. Hx RHEUMATIC FEVER. Heart murmur, chronic back and bilateral shoulder pain. SEVERE OSTEOPROSIS, Vertigo, Degenerative Joint Disease, GI ulcers, esophagitis/esophageal stricture, partially blocked bile duct, PROBLEMS WITH SWALLOWING, "no symptoms of COPD." FALLS "Cannot lie down for long without having back pain." Last Myocardial Infarction Date:: 2002 History of Any Multi-Drug Resistant Organisms: None Reported Past Surgical History: Appendectomy, Cardiac Ablation, Cholecystectomy, Ear Surgery, Heart Catheterization, Hysterectomy, Orthopedic Surgery, Pacemaker, Tonsillectomy Additional Past Surgical History / Comment(s): ORIF LEFT LOWER ARM, HAS HARDWARE, numerous DILATATION OF ESOPHAGUS, biopsies were negative, colonoscopy, Pacemaker (ADAPTA) placed 07/07 at [facility], bilateral stapedectomies(stainless steel in both ears), Hiatal Hernia repair, inguinal and femoral hernia repairs, "cement placed in back, due to broken back/pelvis". Left Femur Surgery 12/09/21 Past Anesthesia/Blood Transfusion Reactions: Family History of Problems w/ Anesthesia, Motion Sickness, Postoperative Nausea & Vomiting (PONV) Additional Past Anesthesia/Blood Transfusion Reaction / Comment(s): No problems with prior blood transfusion. BROTHER HAS PONV. Type of Cardiac Device: Permanent Pacemaker Device Placement Date:: 06/2016 Past Psychological History: No Psychological Hx Reported Additional Psychological History / Comment(s): DENIES ANY HX OF PROBLEM Smoking Status: Never smoker Past Alcohol Use History: None Reported Additional Past Alcohol Use History / Comment(s): Lives alone Past Drug Use History: None Reported - Past Family History Brother(s) Family Medical History: Cancer Additional Family Medical History / Comment(s): Throat cancer. Father Family Medical History: Pneumonia Additional Family Medical History / Comment(s): EMPHYSEMA. Mother Family Medical History: COPD, Rheumatoid Arthritis (RA) Additional Family Medical History / Comment(s): EMPHYSEMA. Medications and Allergies Home Medications Medication Instructions Recorded Confirmed Type SUMAtriptan succinate [Imitrex] 50 mg PO BID PRN 02/15/16 12/27/21 History Dicyclomine [Bentyl] 10 mg PO TID@0600,1400,2200 05/10/19 12/27/21 History Furosemide [Lasix] 40 mg PO DAILY@1500 02/06/20 12/27/21 History L.acidoph,Paracasei, B.lactis 1 cap PO DAILY@1700 02/06/20 12/27/21 History [Probiotic] allopurinoL [Zyloprim] 50 mg PO DAILY 02/06/20 12/27/21 History Metoprolol Tartrate [Lopressor] 50 mg PO BID@0800,1700 10/05/20 12/27/21 History Albuterol Inhaler [Ventolin Hfa 2 puff INHALATION RT-Q4H PRN 08/04/21 12/27/21 History Inhaler] Spironolactone [Aldactone] 25 mg PO DAILY 08/04/21 12/27/21 History Diclofenac Sodium [Voltaren] 75 mg PO BID@0800,1700 12/09/21 12/27/21 History Ergocalciferol [Vitamin D2 (1250 1,250 mcg PO FR 12/09/21 12/27/21 History Mcg = 66341 Iu)] Levothyroxine Sodium 100 mcg PO DAILY@0600 12/09/21 12/27/21 History Magnesium Gluconate [Magonate] 750 mg PO DAILY@1700 12/09/21 12/27/21 History calcitrioL [Calcitriol] 0.25 mcg PO FR 12/09/21 12/27/21 History hydrOXYzine HCL [Atarax] 25 mg PO Q6H PRN 12/09/21 12/27/21 History polyethylene glycoL 3350 [Miralax] 17 gm PO DAILY 12/09/21 12/27/21 History Acetaminophen Tab [Tylenol] 650 mg PO Q4HR PRN tab 12/16/21 12/27/21 Rx Ipratropium-Albuterol Nebulize 3 ml INHALATION RT-TID each 12/16/21 12/27/21 Rx [Duoneb 0.5 mg-3 mg/3 ml Soln] Lactulose [Cephulac] 20 gm PO TID PRN ml 12/16/21 12/27/21 Rx Amiodarone [Cordarone] See Taper PO DIRECTED 12/27/21 12/27/21 History Aspirin 325 mg PO DAILY@0 12/27/21 12/27/21 History Ensure Enlive 237 ml PO TID@0800,1200,1700 12/27/21 12/27/21 History Furosemide [Lasix] 80 mg PO DAILY@0600 12/27/21 12/27/21 History HYDROcodone/APAP 10-325MG [Patton 1 tab PO Q6H PRN 12/27/21 12/27/21 History 10] Ipratropium-Albuterol Nebulize 3 ml INHALATION RT-TID PRN 12/27/21 12/27/21 History [Duoneb 0.5 mg-3 mg/3 ml Soln] Magnesium Hydroxide [Milk of 7,200 mg PO DAILY PRN 12/27/21 12/27/21 History Magnesia Concentrate] Melatonin 1 mg PO HS 12/27/21 12/27/21 History Na Phos,M-B/Na Phos,Di-Ba [Fleet 133 ml RECTAL DAILY PRN 12/27/21 12/27/21 History Adult] Pantoprazole [Protonix] 40 mg PO BID@0800,1700 12/27/21 12/27/21 History Potassium Chloride [Klor-Con M20] 20 meq PO DAILY@1700 12/27/21 12/27/21 History Potassium Chloride [Klor-Con M20] 40 meq PO DAILY 12/27/21 12/27/21 History Sennosides-Docusate Sodium 1 tab PO HS 12/27/21 12/27/21 History [Senokot-S] Triamcinolone 0.5% Ointment 1 applic TOPICAL BID 12/27/21 12/27/21 History bisacodyL [Dulcolax] 10 mg RECTAL DAILY PRN 12/27/21 12/27/21 History Allergies Allergy/AdvReac Type Severity Reaction Status Date / Time adhesive Allergy RASH FROM Verified 12/27/21 06:51 EKG STICKERS apixaban [From Eliquis] Allergy Rash/Hives Verified 12/27/21 06:51 celecoxib [From Celebrex] Allergy Rash/Hives Verified 12/27/21 06:51 sertraline HCl [From Zoloft] Allergy Rash/Hives Verified 12/27/21 06:51 sulfamethoxazole Allergy Anaphylaxis Verified 12/27/21 06:51 [From Bactrim] trimethoprim [From Bactrim] Allergy Anaphylaxis Verified 12/27/21 06:51 cholestyramine AdvReac DIZZY/CONFU Verified 12/27/21 06:51 SED Physical Exam Vitals: Vital Signs Temp Pulse Pulse Pulse Resp BP Pulse Ox 12/30/21 08:09 150 H 14 130/73 95 12/30/21 04:00 98.3 F 101 H 17 130/80 95 12/30/21 02:00 111 H 17 12/30/21 00:00 97.9 F 111 H 17 133/85 94 L 12/29/21 20:09 74 12/29/21 20:00 97.9 F 124 H 16 120/75 95 12/29/21 19:56 74 12/29/21 15:40 14 108/79 94 L 12/29/21 11:24 98.2 F 15 122/66 96 Intake and Output 12/29/21 12/30/21 12/30/21 22:59 06:59 14:59 Output Total 500 350 Balance -500 -350 Output: Urine 500 350 Other: Voiding Method Indwelling Catheter Indwelling Catheter # Bowel Movements 1 Results 12/28/21 07:51 12/29/21 12:28 Comprehensive Metabolic Panel 12/29/21 Range/Units 12:28 Sodium 144 (137-145) mmol/L Potassium 3.9 (3.5-5.1) mmol/L Chloride 111 H (98-107) mmol/L Carbon Dioxide 21 L (22-30) mmol/L BUN 39 H (7-17) mg/dL Creatinine 1.27 H (0.52-1.04) mg/dL Glucose 90 (74-99) mg/dL Calcium 9.3 (8.4-10.2) mg/dL Current Medications Generic Name Dose Route Start Last Admin Trade Name Freq PRN Reason Stop Dose Admin Acetaminophen 650 mg 12/27/21 10:39 12/27/21 11:09 Acetaminophen Tab 325 Mg Tab PO 650 mg Q4HR PRN Administration Fever and/ or Pain Hydrocodone Bitart/Acetaminophen 1 each 12/27/21 11:50 12/29/21 11:26 Hydrocodone/Apap 10-325mg 1 Each Tab PO 1 each Q6H PRN Administration Moderate Pain Albuterol/Ipratropium 3 ml 12/26/21 23:53 Ipratropium-Albuterol 3 Ml Neb INHALATION RT-Q4H PRN Shortness Of Breath Or Wheezing Albuterol/Ipratropium 3 ml 12/27/21 10:15 12/30/21 07:50 Ipratropium-Albuterol 3 Ml Neb INHALATION Not Given RT-TID INOCENCIO Allopurinol 50 mg 12/27/21 10:30 12/30/21 09:41 Allopurinol 100 Mg Tab PO Not Given DAILY [facility] Bisacodyl 10 mg 12/29/21 17:00 12/30/21 09:41 Bisacodyl 10 Mg Supp RECTAL Not Given DAILY [facility] Calcium Carbonate/Glycine 1,000 mg 12/27/21 11:54 Calcium Carbonate 500 Mg Chewable PO Q4HR PRN Dyspepsia Dicyclomine HCl 10 mg 12/27/21 14:00 12/30/21 06:35 Dicyclomine 10 Mg Cap PO Not Given TID@0600,1400,2200 [facility] Sodium Chloride 1,000 mls @ 100 mls/hr 12/27/21 12:00 12/30/21 02:10 Saline 0.45% IV 100 mls/hr .Q10H INOCENCIO Administration Diltiazem HCl 125 mg/ Sodium 125 mls @ 5 mls/hr 12/30/21 08:45 Chloride IV .Q24H INOCENCIO 5 MG/HR Lactulose 20 gm 12/27/21 11:54 12/29/21 11:27 Lactulose 20 Gm/30 Ml Cup PO 20 gm DAILY PRN Administration Constipation Levothyroxine Sodium 100 mcg 12/27/21 10:30 12/30/21 06:35 Levothyroxine 100 Mcg Tab PO Not Given DAILY@0600 INOCENCIO Naloxone HCl 0.2 mg 12/26/21 23:52 Naloxone 0.4 Mg/Ml 1 Ml Vial IV Q2M PRN Opioid Reversal Ondansetron HCl 4 mg 12/27/21 11:54 12/30/21 00:54 Ondansetron 4 Mg/2 Ml Vial IVP 4 mg Q8HR PRN Administration Nausea And Vomiting Pantoprazole Sodium 40 mg 12/27/21 10:15 12/30/21 09:41 Pantoprazole 40 Mg Tablet PO Not Given BID@0800,1700 [facility] Intake and Output 12/29/21 12/30/21 12/30/21 22:59 06:59 14:59 Output Total 500 350 Balance -500 -350 Output: Urine 500 350 Other: Voiding Method Indwelling Catheter Indwelling Catheter # Bowel Movements 1 12/28/21 07:51 12/29/21 12:28
[2021-12-30 11:45] LABS: Anisocytosis Slight; Basophils # (A) 0.1 k/uL (0-0.2); Basophils % (A) 1 %; Eosinophils # (A) 0.2 k/uL (0-0.7); Eosinophils % (A) 1 %; HCT 40.2 % (34.0-46.0); HGB 11.8 gm/dL (11.4-16.0); Hypochromasia Marked; Lymphocytes # (A) 0.9 k/uL (1.0-4.8); Lymphocytes % (A) 7 %; MCHC 29.4 g/dL (31.0-37.0); MCV 105.4 fL (80.0-100.0); Macrocytosis Marked; Mean Platelet Volume 8.1; Monocytes # (A) 0.4 k/uL (0-1.0); Monocytes % (A) 3 %; Neutrophils # (A) 10.6 k/uL (1.3-7.7); Neutrophils % (A) 86 %; Platelet Count 454 k/uL (150-450); RBC 3.82 m/uL (3.80-5.40); RDW 17.2 % (11.5-15.5); WBC 12.3 k/uL (3.8-10.6)
--- NOTE | 2021-12-30 11:50 | FL ---
EXAMINATION TYPE: FL Gastrografin enema DATE OF EXAM: 12/30/2021 COMPARISON: Correlation CT 12/29/2021 HISTORY: 76-year-old female rule out obstruction descending colon, request for cleansing enema. TECHNIQUE: A single contrast Gastrografin enema study is performed. A total of 4 minutes 15 seconds of fluoroscopic time was utilized during procedure and a total of 49 images obtained. Most of these are last image hold save screens obtained during fluoroscopy. FINDINGS: Work Measurement Engineer view of the abdomen diffusely distention of the colon measuring up to 7.7 cm. Due to the extensive air distention, we were unable to get the contrast to flow fully into the right side of the colon. Scattered intraluminal filling defects most suggestive of retained fecal debris. D uring filling, we initially encounter a short segment narrowing at the junction of the descending and sigmoid colon, image 9 of 49. We returned to this area at the end of the exam and were unable to dup licate this appearance. There is inconsistent, limited, and segmented opacification throughout the left side of the colon due to the marked air distention. No obvious persistent narrowing is encountered along the left hemicolo n. IMPRESSION: 1. Very limited exam due to marked pancolonic air distention up to 7.7 cm. We were unable to uniforml y fill the colon or reach the right side of the colon due to the marked distention. There is scattere d fecal debris present throughout. 2. Initially, we encountered a short segment narrowing at the junction of the descending and sigmoid colon (image 9 of 49). We returned to this area at the end of the exam but the finding did not persi st. Suspect focal spasm. Refer to ABEL overhead exposure (image 1003 and 1005). No definite persisting narrowing seen along the left side of the colon.
[2021-12-30 12:00] LABS: African American GFR (CKD) 67 (>60 ml/min/1.73 sqM); Anion Gap 11 mmol/L; Blood Urea Nitrogen 23 mg/dL (7-17); Calcium 9.3 mg/dL (8.4-10.2); Carbon Dioxide 19 mmol/L (22-30); Chloride 114 mmol/L (98-107); Glucose 97 mg/dL (74-99); Non-African American GFR(CKD) 58 (>60 ml/min/1.73 sqM); Potassium 3.9 mmol/L (3.5-5.1); Sodium 144 mmol/L (137-145)
[2021-12-30] MEDS: DILTIAZEM 125 MG in SODIUM CHLORIDE 0.9% 100 ML IV SCH (13:07)
[2021-12-30] MEDS: METOPROLOL TARTRATE 50 MG TAB PO SCH ×2 (14:59→19:44)
--- NOTE | 2021-12-30 15:01 | P.PN ---
Subjective Progress Note Date: 12/30/21 CHIEF COMPLAINT: Abdominal pain and distention HISTORY OF PRESENT ILLNESS: Patient had a very small BM this morning. She has had some nausea. Her abdominal distention is slightly decreased. She reports that she feels her abdomen is softer. She is getting Dulcolax suppositories daily. She had a Gastrografin enema study completed which was limited exam due to marked castillo colonic air distention up to 7.7 cm. Unable to formally fill the colon to reach right side of the colon due to marked distention. There is scattered fecal debris throughout colon. Initially encountered short segment narrowing at the junction of the descending and sigmoid colon. Return to this area at the end of his Nancy findings did not persist suspected focal spasm. No definite persisting narrowing seen along the left side of the colon. Afebrile. Patient did have A. fib with RVR. She was seen by cardiology. Heart rate has now improved. PHYSICAL EXAM: VITAL SIGNS: Reviewed. GENERAL: Well-developed in no acute distress. HEENT: No sclera icterus. Extraocular movements grossly intact. Moist buccal mucosa. Head is atraumatic, normocephalic. ABDOMEN: Abdomen distended. Diffuse tenderness decreased compared to yesterday. Abdomen is softer compared to yesterday. NEUROLOGIC: Alert and oriented. Cranial nerves II through XII grossly intact. ASSESSMENT: 1. Abdominal pain with abdominal distention 2. Ileus 3. Chronic constipation PLAN: -Start patient on clear liquid diet -Continue IV fluids -Continue Dulcolax suppository -Continue to monitor Physician Entry Level Paralegal note has been reviewed by physician. Signing provider agrees with the documented findings, assessment, and plan of care. I have personally seen and examined the patient, reviewed the PAINTER ORDNANCE /PAs history, exam and MDM and agree with the assessment and plan as written. Based on total visit time, I have performed more than 50% of the visit. As above: Patient feels better today. Gastrografin enema did not show any obstruction. Her exam is improved with less bloating and less tenderness. Begin clear liquid diet. Increase activity as tolerated. Objective - Vital Signs Vital signs: Vital Signs Temp 98.3 F 12/30/21 04:00 Pulse 70 12/30/21 11:52 Resp 14 12/30/21 08:09 BP 131/80 12/30/21 11:15 Pulse Ox 96 12/30/21 11:10 FiO2 50 12/28/21 11:28 Intake & Output 12/29/21 12/30/21 12/30/21 18:59 06:59 18:59 Output Total 065 808 5000 Balance -700 -850 -1000 Weight 45 kg Output: Urine 572 182 0294 Other: Voiding Method Indwelling Catheter Indwelling Catheter # Bowel Movements 1 - Labs CBC & Chem 7: 12/30/21 11:14 12/30/21 11:14 Labs: Abnormal Lab Results - Last 24 Hours (Table) 12/30/21 12/30/21 Range/Units 11:14 11:14 WBC 12.3 H (3.8-10.6) k/uL MCV 105.4 H (80.0-100.0) fL MCHC 29.4 L (31.0-37.0) g/dL RDW 17.2 H (11.5-15.5) % Plt Count 454 H (150-450) k/uL Neutrophils # 10.6 H (1.3-7.7) k/uL Lymphocytes # 0.9 L (1.0-4.8) k/uL Macrocytosis Marked A Chloride 114 H (98-107) mmol/L Carbon Dioxide 19 L (22-30) mmol/L BUN 23 H (7-17) mg/dL
--- NOTE | 2021-12-30 15:53 | P.PN ---
Progress Note - Text Progress Note Date: 12/30/21 Chief Complaint: Weak tired This is a very pleasant 76-year-old patient of Dr. Wray. Chronic stable medical conditions include esophagitis, peptic ulcer disease, chronic essential hypertension, primary osteoarthritis of multiple joints bilateral, depression, hypothyroidism, esophageal dysmotility, anxiety not otherwise specified,, esophageal constriction with repeated dilatation. Patient is followed at [facility] for the same. Patient on December 09 underwent left proximal femur open reduction internal fixation with IM thu. Secondary to fall. Patient was then discharged to rehab. Patient now presents feeling really weak and tired. Jerking/myoclonic movements. Not able to eat or drink much. Severely worsened renal function. Normally has a bowel movement every other day. Greene catheter was placed in the ER. Has had significant pain at the operative site. Initial potassium was 8.6. Patient is given a cocktail when the potassium down. Admitted with acute severe kidney injury, hyperkalemia, dehydration, acute medical debility. Given IV fluids. Renal offensive medications discontinued. December 28: Sitting up in bed. Tired. Daughter at the bedside. She has been getting St[place] 4 times a day as ordered at the [facility]. Discussed with the patient and the daughter the bedside. We'll consult orthopedics because of increased pain. From a medical standpoint. No further narcotics indicated. K pad and icepack to be given locally. Getting IV fluids. Diet discussed. Some improvement in kidney function. Every 4 hours for another 24 hours. December 29: Reclining in bed. Feels better. Seen by orthopedics. No fever any further intervention. Abdomen distended. Computed tomography scan showing ileus. Abdominal x-ray ordered. Consult Dr. Booth. Nausea present. No vomiting. No abdominal discomfort. December 30: This morning spoke to patient's daughter in the room. Patient did undergo barium enema. That showed colon to be dilated. No obstruction. Following that clinic in the room. Patient is having large bowel movements. Feeling better. Had small bowel movement last night. No nausea vomiting. Overnight heart rate went into A. fib rate up to 140. Cardiology consulted. Put on IV Cardizem. Active Medications Active Medications Acetaminophen (Acetaminophen Tab 325 Mg Tab) 650 mg PO Q4HR PRN PRN Reason: Fever and/ or Pain Last Admin: 12/27/21 11:09 Dose: 650 mg Hydrocodone Bitart/Acetaminophen (Hydrocodone/Apap 10-325mg 1 Each Tab) 1 each PO Q6H PRN PRN Reason: Moderate Pain Last Admin: 12/29/21 11:26 Dose: 1 each Albuterol/Ipratropium (Ipratropium-Albuterol 3 Ml Neb) 3 ml INHALATION RT-Q4H PRN PRN Reason: Shortness Of Breath Or Wheezing Albuterol/Ipratropium (Ipratropium-Albuterol 3 Ml Neb) 3 ml INHALATION RT-TID [facility] Last Admin: 12/30/21 11:51 Dose: 3 ml Allopurinol (Allopurinol 100 Mg Tab) 50 mg PO DAILY [facility] Last Admin: 12/30/21 09:41 Dose: Not Given Bisacodyl (Bisacodyl 10 Mg Supp) 10 mg RECTAL DAILY [facility] Last Admin: 12/30/21 09:41 Dose: Not Given Calcium Carbonate/Glycine (Calcium Carbonate 500 Mg Chewable) 1,000 mg PO Q4HR PRN PRN Reason: Dyspepsia Dicyclomine HCl (Dicyclomine 10 Mg Cap) 10 mg PO TID@0600,1400,2200 [facility] Last Admin: 12/30/21 12:21 Dose: Not Given Sodium Chloride (Saline 0.45%) 1,000 mls @ 100 mls/hr IV .Q10H [facility] Last Admin: 12/30/21 11:45 Dose: 100 mls/hr Diltiazem HCl 125 mg/ Sodium (Chloride) 125 mls @ 5 mls/hr IV .Q24H [facility] Last Admin: 12/30/21 11:04 Dose: 5 mg/hr, 5 mls/hr Lactulose (Lactulose 20 Gm/30 Ml Cup) 20 gm PO DAILY PRN PRN Reason: Constipation Last Admin: 12/29/21 11:27 Dose: 20 gm Levothyroxine Sodium (Levothyroxine 100 Mcg Tab) 100 mcg PO DAILY@0600 [facility] Last Admin: 12/30/21 06:35 Dose: Not Given Metoprolol Tartrate (Metoprolol Tartrate 50 Mg Tab) 50 mg PO BID@0800,1700 [facility] Last Admin: 12/30/21 14:59 Dose: 50 mg Naloxone HCl (Naloxone 0.4 Mg/Ml 1 Ml Vial) 0.2 mg IV Q2M PRN PRN Reason: Opioid Reversal Ondansetron HCl (Ondansetron 4 Mg/2 Ml Vial) 4 mg IVP Q8HR PRN PRN Reason: Nausea And Vomiting Last Admin: 12/30/21 10:56 Dose: 4 mg Pantoprazole Sodium (Pantoprazole 40 Mg Tablet) 40 mg PO BID@0800,1700 [facility] Last Admin: 12/30/21 09:41 Dose: Not Given Past medical history to include: fibromyalgia, GERD, GI bleed, hypertension, osteoarthritis, hypothyroid, pacemaker for tachybradycardia syndrome, paroxysmal atrial flutter fibrillation, severe osteoporosis, esophageal stricture with dilatation, esophagitis Past surgical history to include: Appendectomy, cardiac ablation, ear surgery, pacemaker, or on her fourth left lower lobe, esophageal dilatation, pacemaker, cardiac ablation, Social history: Does not smoke or drink alcohol. Lives alone. Physical examination: VITAL SIGNS: 98.3, 140, 14, 136.93, 96% room air GENERAL: , Sitting up, feeling better EYES: Pupils equal. Conjunctiva pale. HEENT: External appearance of nose and ears normal, oral cavity grossly normal. NECK: JVD not raised; masses not palpable. HEART: Heart sounds irregular no edema. LUNGS: Respiratory rate normal; clear to auscultation. ABDOMEN: Soft, distention much improved, nontender, liver spleen not palpable, no masses palpable. PSYCH: [Alert and oriented x3; mood and affect anxious MUSCULOSKELETAL: Evidence of OA especially in the hands and knees INVESTIGATIONS, reviewed in the clinical context: December 30: W BC 12.3 hemoglobin 11.8, platelets 454and 3.9 creatinine 0.97 Barium enema:: Dilated. No obstruction. Stool present. December 29: Potassium 3.9, BUN 39, creatinine 1.27 December 28: WBC 10.5, hemoglobin 9.8, platelets 422 potassium 4.7 BUN 99 creatinine 3.03 Ultrasound: Possible evidence of medical renal disease White count 12.5 hemoglobin 10.5 platelets 483 potassium 6.1 Admission labs: WBC 11.4 hemoglobin 10.5 platelets 507 potassium 8.6 BUN 129 creatinine 5.3 COVID 19 PCR: Not detected EKG tracing personally reviewed by me-atrial pacemaker Previous labs: Creatinine 2.4 on December 21, 0.85 on December 16 Assessment and plan: -Hyperkalemia from acute kidney injury, also patient being on potassium supplement, Aldactone, Lasix: Corrected Glucose. Insulin. Lokelma. Renal diet. Bicarbonate. Nephrology consult. -Acute severe kidney injury combination of ATN and prerenal, patient is also on Voltaren, Lasix, Aldactone,: Corrected Discontinued: Aldactone, Lasix,. IV fluids. Continue. Follow with nephrology -Acute ileus.: Clinically better Abdominal x-ray. Consult surgery. -Severe constipation Good bowel movement after getting barium enema -Paroxysmal atrial flutter film fibrillation with a prior history of ablation, currently uncontrolled IV Cardizem drip. Lopressor 50 mg twice a day. -Chronic esophagitis Protonix 40 mg twice a day -Essential hypertension Lopressor 50 mg twice a day -Primary osteoarthritis Pain medications -Depression -Hypothyroidism Synthroid 100 g a day -Esophageal dysmotility -Anxiety but otherwise specified Xanax when necessary -Chronic esophageal constriction with repeated dilatations -Pacemaker for tachybradycardia syndrome. -Mild protein calorie malnutrition from decreased oral intake Ensure -Increased pain at the left femur recent operative site. Heating pad and ice pack ordered. Continue narcotics as before. No indication for increase in dose. Seen by orthopedics. No change in plan. Seen by cardiology. IV Cardizem drip. Barium enema did show dilated colon. Large bowel movement after the testing. Cutback. IV fluids. Start clear liquids. Care was discussed with the daughter earlier today and the patient. Total time spent about 40 minutes with over 25 minutes of discussion.
[2021-12-30] MEDS: HYDROcodone/APAP 10-325MG 1 EACH TAB PO PRN ×2 (16:07→22:03)
[2021-12-31] MEDS: HYDROcodone/APAP 10-325MG 1 EACH TAB PO PRN ×4 (04:27→22:57)
[2021-12-31] MEDS: DILTIAZEM 125 MG in SODIUM CHLORIDE 0.9% 100 ML IV SCH ×2 (04:27→08:20)
[2021-12-31] MEDS: DICYCLOMINE 10 MG CAP PO SCH ×3 (06:01→20:57)
[2021-12-31] MEDS: LEVOTHYROXINE 100 MCG TAB PO SCH (06:10)
[2021-12-31] MEDS: IPRATROPIUM-ALBUTEROL 3 ML NEB INHALATION SCH ×3 (08:10→20:15)
[2021-12-31] MEDS: bisacodyL 10 MG SUPP RECTAL SCH (08:19)
[2021-12-31] MEDS: allopurinoL 100 MG TAB PO SCH (08:20)
[2021-12-31] MEDS: METOPROLOL TARTRATE 50 MG TAB PO SCH ×2 (08:20→17:02)
[2021-12-31] MEDS: PANTOPRAZOLE 40 MG TABLET PO SCH ×2 (08:20→17:02)
--- NOTE | 2021-12-31 09:00 | P.PN ---
Progress Note - Text Progress Note Date: 12/31/21 Patient states she feels better. She states she had multiple bowel movements yesterday. On exam vital signs are stable. Abdomen soft. Resolved constipation. Patient will have her diet advanced as tolerated
--- NOTE | 2021-12-31 10:38 | P.PN ---
Subjective Progress Note Date: 12/31/21 Principal diagnosis: 76-year-old female followed up because of acute kidney injury from colitis and volume depletion. She was treated with IV fluids and creatinine has improved. Abdominal pain is much better with no diarrhea today. No fever chills pains of dizziness when she stands up. A computed tomography scan shows scattered air- fluid levels with small bowel thickening suggesting possible colitis Objective - Vital Signs Vital signs: Vital Signs Temp 97.8 F 12/31/21 08:02 Pulse 102 H 12/31/21 08:21 Resp 17 12/31/21 08:02 BP 113/76 12/31/21 08:02 Pulse Ox 95 12/31/21 08:02 FiO2 50 12/28/21 11:28 Intake & Output 12/30/21 12/31/21 12/31/21 18:59 06:59 18:59 Intake Total 240 125 125 Output Total 1600 300 Balance -1360 125 -175 Weight 45 kg Intake: Intake, IV Titration 125 125 Amount Diltiazem 125 mg In 125 125 Sodium Chloride 0.9% 100 ml @ 10 MG/HR 10 mls/hr IV .[id number] [facility] Rx#: [id number] Oral 240 Output: Urine 1000 Stool 600 300 Other: Voiding Method Indwelling Catheter Indwelling Catheter Indwelling Catheter # Bowel Movements 1 Exam awake alert oriented comfortable. HEENT exam no JVP neck is supple no facial asymmetry Lungs are significant for bilateral coarse crackles not clear but cough she is known with COPD was not a smoker Heart sounds are unremarkable for any murmur rub gallop Abdomen soft nontender slightly distended Extremity exam was no edema or neurologically awake alert oriented - Labs CBC & Chem 7: 12/30/21 11:14 12/30/21 11:14 Labs: Abnormal Lab Results - Last 24 Hours (Table) 12/30/21 12/30/21 Range/Units 11:14 11:14 WBC 12.3 H (3.8-10.6) k/uL MCV 105.4 H (80.0-100.0) fL MCHC 29.4 L (31.0-37.0) g/dL RDW 17.2 H (11.5-15.5) % Plt Count 454 H (150-450) k/uL Neutrophils # 10.6 H (1.3-7.7) k/uL Lymphocytes # 0.9 L (1.0-4.8) k/uL Macrocytosis Marked A Chloride 114 H (98-107) mmol/L Carbon Dioxide 19 L (22-30) mmol/L BUN 23 H (7-17) mg/dL Assessment and Plan Plan: Impression 1. Acute kidney injury from volume depletion and third spacing of fluid from colitis improving 2. Non-gap acidosis from diarrhea and acute kidney injury bicarb and his lower, went down from 23 2 days ago to 21 and then to 19 this morning. This may reflect IV fluids normal saline 3. Abdominal pain colitis improving 4. Recent fall with open reduction internal fixation on 12/09/2021. 5. Atrial fibrillation, pacer on metoprolol Recommendation 1. Check orthostatic changes to ensure there is no significant drop that might cause not fall. 2. If so will give her IV fluids. 3. Watch blood pressure falls. 4. Started on sodium bicarb 650 4 times a day
[2021-12-31] MEDS: SODIUM BICARBONATE TAB 650 MG TAB PO SCH ×3 (13:36→22:53)
[2021-12-31] MEDS: SODIUM CHLORIDE 0.45% 1,000 ML IV SCH ×2 (14:17→17:03)
--- NOTE | 2021-12-31 18:00 | P.PN ---
Subjective HISTORY OF PRESENT ILLNESS: This is a 76-year-old female with a past medical history significant for recent hip fracture with surgical intervention, hypertension, permanent pacemaker insertion, and paroxysmal atrial fibrillation. Patient follows in the office with Dr. Penn. We have been asked to see the patient in consultation for afib with RVR. Patient is admitted to the hospital secondary to abdominal pain with possible ileus and colitis. She has been followed by general surgery and scheduled for barium enema today. She remains nothing by mouth. Patient examined at the bedside. Patient denies chest pain or pressure. She denies shortness of breath. She reports having palpitations this morning. Telemetry reveals atrial fibrillation with RVR with heart rate in the [id number]. * Telemetry reveals A. fib with RVR * Laboratory data: W BC 10.5. Hemoglobin 9.8. Platelet count 422. Sodium 144. Potassium 3.9. Creatinine 1.27. * Current home cardiac medications include metoprolol tartrate 50 mg twice a day, Lasix 80 mg in the morning and 40 mg in the afternoon, aspirin 325 mg daily, Aldactone 25 mg daily, and amiodarone (dose unknown) * Most recent echocardiogram obtained in September 2021 revealing ejection fraction 52%, moderate MR, severe TR, moderate AR * Cardiac catheterization history: July 2002 revealing normal coronary arteries 12/31 Patient seen and examined. Patient has been on Cardizem drip at 10 and recently converted to sinus rhythm. Denies any chest pain or pressure. Admits she feels weak and fatigued. Patient admitting to some dyspnea new over the afternoon. PHYSICAL EXAM: VITAL SIGNS: Reviewed. GENERAL: Well-developed in no acute distress. HEENT: Head is normocephalic. Pupils are equal, round. Sclerae anicteric. Mucous membranes of the mouth are moist. Neck supple. No JVD or thyromegaly LUNGS: Respirations even and unlabored. Lungs essentially clear to auscultation bilaterally. HEART: Tachycardic. Irregular rate and rhythm. S1 and S2 heard. Systolic murmur noted. ABDOMEN: Soft. Mildly distended. EXTREMITIES: Normal range of motion. No clubbing or cyanosis. Peripheral pulses intact. No lower extremity edema NEUROLOGIC: Awake and alert. Oriented x 3. ASSESSMENT: Abdominal pain, possible ileus and colitis Recent hip fracture with surgical intervention Paroxysmal atrial fibrillation, currently sinus rhythm History of permanent pacemaker insertion Hypertension Acute kidney injury Hyperkalemia PLAN: Patient currently sinus rhythm and we can hold Cardizem drip however if has recurrent episode of A. fib restart Cardizem drip if unable to tolerate oral medications. Kidney function appears improving. And is having some mild dyspnea we will check chest x-ray to evaluate for any developing heart failure. Patient not on anticoagulation due to history of recurrent GI bleeding Continue telemetry monitoring Further recommendations pending patient course Objective - Vital Signs Vital signs: Vital Signs Temp 98.0 F 12/31/21 17:00 Pulse 113 H 12/31/21 17:00 Resp 17 12/31/21 17:00 BP 106/67 12/31/21 17:00 Pulse Ox 97 12/31/21 17:00 FiO2 50 12/28/21 11:28 Intake & Output 12/30/21 12/31/21 12/31/21 18:59 06:59 18:59 Intake Total 240 125 125 Output Total 1600 975 Balance -1360 125 -850 Weight 45 kg Intake: Intake, IV Titration 125 125 Amount Diltiazem 125 mg In 125 125 Sodium Chloride 0.9% 100 ml @ 10 MG/HR 10 mls/hr IV .[id number] [facility] Rx#: [id number] Oral 240 Output: Urine 1000 375 Uretheral (Greene) 250 Stool 600 600 Other: Voiding Method Indwelling Catheter Indwelling Catheter Indwelling Catheter # Bowel Movements 1 - Labs CBC & Chem 7: 12/30/21 11:14 12/30/21 11:14
[2021-12-31] MEDS ORDERED: ASPIRIN 325 MG TAB PO STA (18:54)
--- NOTE | 2021-12-31 19:24 | XR ---
EXAMINATION TYPE: XR chest 1V portable DATE OF EXAM: 12/31/2021 COMPARISON: NONE HISTORY: Short of breath TECHNIQUE: Single view FINDINGS: There is no heart failure nor confluent pneumonic infiltrate. Costophrenic angles are clear . There are small reticular density in the left midlung field. There is a left axillary pacemaker. No pleural effusion. IMPRESSION: There is some minimal reticular infiltrate in the left mid lung. Atheromatous aorta. No h eart failure.
[2022-01-01] MEDS: DILTIAZEM 125 MG in SODIUM CHLORIDE 0.9% 100 ML IV SCH ×3 (05:49→20:53)
[2022-01-01] MEDS: SODIUM CHLORIDE 0.45% 1,000 ML IV SCH ×3 (05:49→20:52)
[2022-01-01] MEDS: DICYCLOMINE 10 MG CAP PO SCH ×3 (05:49→20:42)
[2022-01-01] MEDS: LEVOTHYROXINE 100 MCG TAB PO SCH (06:08)
[2022-01-01] MEDS: HYDROcodone/APAP 10-325MG 1 EACH TAB PO PRN ×4 (06:08→23:54)
[2022-01-01] MEDS: IPRATROPIUM-ALBUTEROL 3 ML NEB INHALATION SCH ×3 (08:54→19:05)
--- NOTE | 2022-01-01 09:49 | P.PN ---
Subjective Progress Note Date: 01/01/22 Principal diagnosis: 76-year-old female followed up because of acute kidney injury from colitis and volume depletion. She was treated with IV fluids and creatinine has improved to normal at 0.97. She is followed up because of persistent acidosis. She was started on sodium bicarb yesterday when her bicarb was 19 day before yesterday. Abdominal pain is much better with no diarrhea today. No fever chills pains of dizziness when she stands up. A computed tomography scan shows scattered air- fluid levels with small bowel thickening suggesting possible colitis She has chronic dysphagia and has had is a well-developed patient the past, last one being 6 months ago per her daughter was in the room. Her intake therefore is somewhat poor. She also complains of pain in her left hip Objective - Vital Signs Vital signs: Vital Signs Temp 97.6 F 01/01/22 03:17 Pulse 72 01/01/22 09:06 Resp 14 01/01/22 03:17 BP 115/64 01/01/22 03:17 Pulse Ox 98 01/01/22 08:54 FiO2 50 12/28/21 11:28 Intake & Output 12/31/21 01/01/22 01/01/22 18:59 06:59 18:59 Intake Total 243 230.167 Output Total 975 550 Balance -732 -319.833 Intake: Intake, IV Titration 125 112.167 Amount Diltiazem 125 mg In 125 112.167 Sodium Chloride 0.9% 100 ml @ 10 MG/HR 10 mls/hr IV .[id number] [facility] Rx#: [id number] Oral 118 118 Output: Urine 375 550 Uretheral (Greene) 250 Stool 600 Other: Voiding Method Indwelling Catheter Indwelling Catheter Awake alert oriented comfortable HEENT exam no JVP in neck is supple no facial asymmetry Lungs clear to auscultation except for bilateral coarse crackle not clear but cough which was noted yesterday also A chest x-ray was unremarkable for any congestive heart failure Heart sounds are unremarkable for any murmur rub gallop Abdomen soft nontender slightly protuberant Extremity exam was trace edema Neurologically awake alert oriented - Labs CBC & Chem 7: 12/30/21 11:14 12/30/21 11:14 Assessment and Plan Plan: Impression 1. Acute kidney injury from volume depletion and third spacing of fluid from colitis improving, creatinine is down to 0.97. 2. Non-gap acidosis from diarrhea and acute kidney injury bicarb and his lower, went down from 23 2 days ago to 21 and then to 19. This may reflect IV fluids normal saline. Serum sodium bicarb yesterday 3. Abdominal pain colitis improving 4. Recent fall with open reduction internal fixation on 12/09/2021. 5. Atrial fibrillation, pacer on metoprolol 6. Chronic esophageal stricture last dilated 6 months ago per daughter. Poor intake Recommendation 1. Reduce IV fluids to 50 mL an hour 2. Encourage oral intake 3.. Discontinue Greene catheter, may use purewick 4. Check labs today
[2022-01-01] MEDS: bisacodyL 10 MG SUPP RECTAL SCH (10:21)
[2022-01-01] MEDS: SODIUM BICARBONATE TAB 650 MG TAB PO SCH ×4 (10:23→20:49)
[2022-01-01] MEDS: allopurinoL 100 MG TAB PO SCH (10:24)
[2022-01-01] MEDS: PANTOPRAZOLE 40 MG TABLET PO SCH ×2 (10:24→17:39)
[2022-01-01] MEDS: METOPROLOL TARTRATE 50 MG TAB PO SCH ×2 (10:24→17:39)
--- NOTE | 2022-01-01 10:31 | P.PN ---
Progress Note - Text Progress Note Date: 01/01/22 The patient remains stable. She's had some flatus. She had a bowel movement yesterday. On exam vital signs are stable. Abdomen soft nontender.. Patient diet will be changed to a soft diet. Patient's constipation is resolving.
--- NOTE | 2022-01-01 10:40 | P.PN ---
Progress Note - Text Progress Note Date: 01/01/22 Patient is seen and examined today at bedside. The patient has some pain around the surgical site as expected, but has been able to have some increased motion at her ankle foot toes knees and hip. Pain is being controlled somewhat with medication. She is complaining some soreness at her back as well. She denies new neurologic change. Physical Exam Afebrile with stable vital signs Abdomen is less distended. Chest has good excursion deep and space expiration The incision site is clean dry and intact. No erythema there is no purulence. Extremities have not had neurologic change from prior to surgery. She has sustained dorsal flexion plantar flexion and EHL. She is able to then her knees bilaterally which is improved in overall motion compared to a couple days ago Calves and thighs were soft nontender without evidence of DVT. Assessment/Plan Approximately 3 weeks status post left hip internal fixation for a subtrochanteric femur fracture The patient is making very slow progress in terms of her hip as she has a number of other medical issues with her renal function and abdominal distention as well. We will continue to increase the patient's mobilization with therapy. She felt quite sore yesterday and was unable to through with physical therapy will would like to try her with increased mobilization nonweightbearing left lower extremity and add some gentle soft tissue massage to see if she can have some improvement with her back and legs. Her CT of her abdomen and pelvis in terms of her spine is reviewed as well as the prior computed tomography scan from July of this year. There is an L4 compression fracture which appears to be chronic. I do not see any new fractures on her computed tomography scan. If he is okay to continue try to mobilize her in terms of her spine as well as her left hip remaining nonweightbearing on her left lower extremity. We will continue pain control with oral or IV medications. We'll continue to follow patient closely.
[2022-01-01 11:59] LABS: Albumin 2.7 g/dL (3.5-5.0); Calcium 8.5 mg/dL (8.4-10.2); Potassium 3.7 mmol/L (3.5-5.1); Total Bilirubin 0.5 mg/dL (0.2-1.3); Total Protein 5.2 g/dL (6.3-8.2)
--- NOTE | 2022-01-01 16:59 | P.PN ---
Subjective HISTORY OF PRESENT ILLNESS: This is a 76-year-old female with a past medical history significant for recent hip fracture with surgical intervention, hypertension, permanent pacemaker insertion, and paroxysmal atrial fibrillation. Patient follows in the office with Dr. Penn. We have been asked to see the patient in consultation for afib with RVR. Patient is admitted to the hospital secondary to abdominal pain with possible ileus and colitis. She has been followed by general surgery and scheduled for barium enema today. She remains nothing by mouth. Patient examined at the bedside. Patient denies chest pain or pressure. She denies shortness of breath. She reports having palpitations this morning. Telemetry reveals atrial fibrillation with RVR with heart rate in the [id number]. * Telemetry reveals A. fib with RVR * Laboratory data: W BC 10.5. Hemoglobin 9.8. Platelet count 422. Sodium 144. Potassium 3.9. Creatinine 1.27. * Current home cardiac medications include metoprolol tartrate 50 mg twice a day, Lasix 80 mg in the morning and 40 mg in the afternoon, aspirin 325 mg daily, Aldactone 25 mg daily, and amiodarone (dose unknown) * Most recent echocardiogram obtained in September 2021 revealing ejection fraction 52%, moderate MR, severe TR, moderate AR * Cardiac catheterization history: July 2002 revealing normal coronary arteries 12/31 Patient seen and examined. Patient has been on Cardizem drip at 10 and recently converted to sinus rhythm. Denies any chest pain or pressure. Admits she feels weak and fatigued. Patient admitting to some dyspnea new over the afternoon. 01/01 Patient seen and examined. Patient still having some weakness however predominantly feeling better however still has some back pain. Belly pain is somewhat better. Patient in and out of A. fib with mild RVR. Chest x-ray yesterday showed no evidence of heart failure. PHYSICAL EXAM: VITAL SIGNS: Reviewed. GENERAL: Well-developed in no acute distress. HEENT: Head is normocephalic. Pupils are equal, round. Sclerae anicteric. Mucous membranes of the mouth are moist. Neck supple. No JVD or thyromegaly LUNGS: Respirations even and unlabored. Lungs essentially clear to auscultation bilaterally. HEART: Tachycardic. Irregular rate and rhythm. S1 and S2 heard. Systolic murmur noted. ABDOMEN: Soft. Mildly distended. EXTREMITIES: Normal range of motion. No clubbing or cyanosis. Peripheral pulses intact. No lower extremity edema NEUROLOGIC: Awake and alert. Oriented x 3. ASSESSMENT: Abdominal pain, possible ileus and colitis Recent hip fracture with surgical intervention Paroxysmal atrial fibrillation, currently A. fib with mild RVR History of permanent pacemaker insertion Hypertension Acute kidney injury Hyperkalemia PLAN: Patient currently able to tolerate oral medications and therefore we will restart her home medications and restart amiodarone. She is still going in and out of A. fib and attempt rhythm control as well as more of a rate control. Kidney function appears improving. Patient not on anticoagulation due to history of recurrent GI bleeding Continue telemetry monitoring Further recommendations pending patient course Objective - Vital Signs Vital signs: Vital Signs Temp 98.6 F 01/01/22 16:45 Pulse 97 01/01/22 16:45 Resp 17 01/01/22 16:45 BP 101/67 01/01/22 16:45 Pulse Ox 97 01/01/22 16:45 FiO2 50 12/28/21 11:28 Intake & Output 12/31/21 01/01/22 01/01/22 18:59 06:59 18:59 Intake Total 243 230.167 Output Total 975 550 500 Balance -732 -319.833 -500 Intake: Intake, IV Titration 125 112.167 Amount Diltiazem 125 mg In 125 112.167 Sodium Chloride 0.9% 100 ml @ 10 MG/HR 10 mls/hr IV .[id number] [facility] Rx#: [id number] Oral 118 118 Output: Urine 375 550 500 Uretheral (Greene) 250 Stool 600 Other: Voiding Method Indwelling Catheter Indwelling Catheter Indwelling Catheter - Labs CBC & Chem 7: 12/30/21 11:14 01/01/22 11:25 Labs: Abnormal Lab Results - Last 24 Hours (Table) 01/01/22 Range/Units 11:25 Sodium 136 L (137-145) mmol/L Carbon Dioxide 19 L (22-30) mmol/L BUN 20 H (7-17) mg/dL Alkaline Phosphatase 166 H (38-126) U/L Total Protein 5.2 L (6.3-8.2) g/dL Albumin 2.7 L (3.5-5.0) g/dL
[2022-01-01] MEDS: AMIODARONE 200 MG TAB PO SCH (20:49)
--- NOTE | 2022-01-02 01:49 | P.PN ---
Subjective Progress Note Date: 12/31/21 This is a very pleasant 76-year-old patient of Dr. Wray. Chronic stable medical conditions include esophagitis, peptic ulcer disease, chronic essential hypertension, primary osteoarthritis of multiple joints bilateral, depression, hypothyroidism, esophageal dysmotility, anxiety not otherwise specified,, esophageal constriction with repeated dilatation. Patient is followed at [facility] for the same. Patient on December 09 underwent left proximal femur open reduction internal fixation with IM thu. Secondary to fall. Patient was then discharged to rehab. Patient now presents feeling really weak and tired. Jerking/myoclonic movements. Not able to eat or drink much. Severely worsened renal function. Normally has a bowel movement every other day. Greene catheter was placed in the ER. Has had significant pain at the operative site. Initial potassium was 8.6. Patient is given a cocktail when the potassium down. Admitted with acute severe kidney injury, hyperkalemia, dehydration, acute medical debility. Given IV fluids. Renal offensive medications discontinued. December 28: Sitting up in bed. Tired. Daughter at the bedside. She has been getting [place] 4 times a day as ordered at the F. Discussed with the patient and the daughter the bedside. We'll consult orthopedics because of increased pain. From a medical standpoint. No further narcotics indicated. K pad and icepack to be given locally. Getting IV fluids. Diet discussed. Some improvement in kidney function. Every 4 hours for another 24 hours. December 29: Reclining in bed. Feels better. Seen by orthopedics. No fever any further intervention. Abdomen distended. Computed tomography scan showing ileus. Abdominal x-ray ordered. Consult Dr. Booth. Nausea present. No vomiting. No abdominal discomfort. December 30: This morning spoke to patient's daughter in the room. Patient did undergo barium enema. That showed colon to be dilated. No obstruction. Following that clinic in the room. Patient is having large bowel movements. Feeling better. Had small bowel movement last night. No nausea vomiting. Overnight heart rate went into A. fib rate up to 140. Cardiology consulted. Put on IV Cardizem. 12/31/2021 Patient is currently lying in bed. No complaints of chest pain or shortness of breath. Abdominal pain is improved and no complaints of diarrhea. Chest x-ray showed there is some minimal reticular infiltrate in the left midlung. No heart failure. Patient is being treated on a Cardizem drip and converted to sinus rhythm now. Troponin x3 negative. Laboratory data reviewed. Patient did have involvement and was started on oral diet advance as tolerated. General surgery is following. Current medications reviewed. Objective - Vital Signs Vital signs: Vital Signs Temp 97.6 F 12/31/21 19:39 Pulse 74 12/31/21 20:25 Resp 18 12/31/21 19:39 BP 93/53 12/31/21 19:39 Pulse Ox 100 12/31/21 20:16 FiO2 50 12/28/21 11:28 Intake & Output 12/31/21 12/31/21 01/01/22 06:59 18:59 06:59 Intake Total 125 243 230.167 Output Total 975 Balance 125 -732 230.167 Intake: Intake, IV Titration 125 125 112.167 Amount Diltiazem 125 mg In 125 125 112.167 Sodium Chloride 0.9% 100 ml @ 10 MG/HR 10 mls/hr IV .[id number] [facility] Rx#: [id number] Oral 118 118 Output: Urine 375 Uretheral (Greene) 250 Stool 600 Other: Voiding Method Indwelling Catheter Indwelling Catheter Indwelling Catheter - Exam Past medical history to include: fibromyalgia, GERD, GI bleed, hypertension, osteoarthritis, hypothyroid, pacemaker for tachybradycardia syndrome, paroxysmal atrial flutter fibrillation, severe osteoporosis, esophageal stricture with dilatation, esophagitis Past surgical history to include: Appendectomy, cardiac ablation, ear surgery, pacemaker, or on her fourth left lower lobe, esophageal dilatation, pacemaker, cardiac ablation, Social history: Does not smoke or drink alcohol. Lives alone. Physical examination: VITAL SIGNS: 98.3, 140, 14, 136.93, 96% room air GENERAL: , Sitting up, feeling better EYES: Pupils equal. Conjunctiva pale. HEENT: External appearance of nose and ears normal, oral cavity grossly normal. NECK: JVD not raised; masses not palpable. HEART: Heart sounds irregular no edema. LUNGS: Respiratory rate normal; clear to auscultation. ABDOMEN: Soft, distention much improved, nontender, liver spleen not palpable, no masses palpable. PSYCH: [Alert and oriented x3; mood and affect anxious MUSCULOSKELETAL: Evidence of OA especially in the hands and knees INVESTIGATIONS, reviewed in the clinical context: December 30: W BC 12.3 hemoglobin 11.8, platelets 454and 3.9 creatinine 0.97 Barium enema:: Dilated. No obstruction. Stool present. December 29: Potassium 3.9, BUN 39, creatinine 1.27 December 28: WBC 10.5, hemoglobin 9.8, platelets 422 potassium 4.7 BUN 99 creatinine 3.03 Ultrasound: Possible evidence of medical renal disease White count 12.5 hemoglobin 10.5 platelets 483 potassium 6.1 Admission labs: WBC 11.4 hemoglobin 10.5 platelets 507 potassium 8.6 BUN 129 creatinine 5.3 COVID 19 PCR: Not detected EKG tracing personally reviewed by me-atrial pacemaker Previous labs: Creatinine 2.4 on December 21, 0.85 on December 16 - Labs CBC & Chem 7: 12/30/21 11:14 01/01/22 11:25 Assessment and Plan Assessment: Assessment and plan: -Hyperkalemia from acute kidney injury, also patient being on potassium supplement, Aldactone, Lasix: Corrected Glucose. Insulin. Lokelma. Renal diet. Bicarbonate. Nephrology consult. -Acute severe kidney injury combination of ATN and prerenal, patient is also on Voltaren, Lasix, Aldactone,: Corrected Discontinued: Aldactone, Lasix,. IV fluids. Continue. Follow with nephrology -Acute ileus.: Clinically better Abdominal x-ray. Consult surgery. -Severe constipation Good bowel movement after getting barium enema -Paroxysmal atrial flutter film fibrillation with a prior history of ablation, currently uncontrolled IV Cardizem drip. Lopressor 50 mg twice a day. -Chronic esophagitis Protonix 40 mg twice a day -Essential hypertension Lopressor 50 mg twice a day -Primary osteoarthritis Pain medications -Depression -Hypothyroidism Synthroid 100 g a day -Esophageal dysmotility -Anxiety but otherwise specified Xanax when necessary -Chronic esophageal constriction with repeated dilatations -Pacemaker for tachybradycardia syndrome. -Mild protein calorie malnutrition from decreased oral intake Ensure -Increased pain at the left femur recent operative site. Heating pad and ice pack ordered. Continue narcotics as before. No indication for increase in dose. Seen by orthopedics. No change in plan. Seen by cardiology. IV Cardizem drip. Barium enema did show dilated colon. Large bowel movement after the testing. IV fluids. tolerating clear liquids. Time with Patient: Greater than 30
--- NOTE | 2022-01-02 01:51 | P.PN ---
Subjective Progress Note Date: 01/01/22 This is a very pleasant 76-year-old patient of Dr. Wray. Chronic stable medical conditions include esophagitis, peptic ulcer disease, chronic essential hypertension, primary osteoarthritis of multiple joints bilateral, depression, hypothyroidism, esophageal dysmotility, anxiety not otherwise specified,, esophageal constriction with repeated dilatation. Patient is followed at [facility] for the same. Patient on December 09 underwent left proximal femur open reduction internal fixation with IM thu. Secondary to fall. Patient was then discharged to rehab. Patient now presents feeling really weak and tired. Jerking/myoclonic movements. Not able to eat or drink much. Severely worsened renal function. Normally has a bowel movement every other day. Greene catheter was placed in the ER. Has had significant pain at the operative site. Initial potassium was 8.6. Patient is given a cocktail when the potassium down. Admitted with acute severe kidney injury, hyperkalemia, dehydration, acute medical debility. Given IV fluids. Renal offensive medications discontinued. December 28: Sitting up in bed. Tired. Daughter at the bedside. She has been getting [place] 4 times a day as ordered at the F. Discussed with the patient and the daughter the bedside. We'll consult orthopedics because of increased pain. From a medical standpoint. No further narcotics indicated. K pad and icepack to be given locally. Getting IV fluids. Diet discussed. Some improvement in kidney function. Every 4 hours for another 24 hours. December 29: Reclining in bed. Feels better. Seen by orthopedics. No fever any further intervention. Abdomen distended. Computed tomography scan showing ileus. Abdominal x-ray ordered. Consult Dr. Booth. Nausea present. No vomiting. No abdominal discomfort. December 30: This morning spoke to patient's daughter in the room. Patient did undergo barium enema. That showed colon to be dilated. No obstruction. Following that clinic in the room. Patient is having large bowel movements. Feeling better. Had small bowel movement last night. No nausea vomiting. Overnight heart rate went into A. fib rate up to 140. Cardiology consulted. Put on IV Cardizem. 12/31/2021 Patient is currently lying in bed. No complaints of chest pain or shortness of breath. Abdominal pain is improved and no complaints of diarrhea. Chest x-ray showed there is some minimal reticular infiltrate in the left midlung. No heart failure. Patient is being treated on a Cardizem drip and converted to sinus rhythm now. Troponin x3 negative. Laboratory data reviewed. Patient did have involvement and was started on oral diet advance as tolerated. General surgery is following. 01/01/2022 Patient is feeling better today. Abdominal pain is much improved. Patient reevaluated and is tolerating oral diet. Patient was started on a Medrol and remains in atrial fibrillation today. Rate is controlled. No complaints of fever or chills. No diarrhea. Laboratory pressure sodium 136 potassium 3.7 chloride 107 bicarb is 19 BUN 20 and creatinine 0.84 and blood sugar is 166. Albumin 2.7. Current medications reviewed. Objective - Vital Signs Vital signs: Vital Signs Temp 97.7 F 01/01/22 20:00 Pulse 67 01/01/22 20:00 Resp 18 01/01/22 20:00 BP 92/59 01/01/22 20:00 Pulse Ox 97 01/01/22 20:00 FiO2 50 12/28/21 11:28 Intake & Output 01/01/22 01/01/22 01/02/22 06:59 18:59 06:59 Intake Total 230.167 325 Output Total 550 650 Balance -319.833 -325 Intake: Intake, IV Titration 112.167 Amount Diltiazem 125 mg In 112.167 Sodium Chloride 0.9% 100 ml @ 10 MG/HR 10 mls/hr IV .[id number] [facility] Rx#: [id number] Oral 118 325 Output: Urine 550 650 Uretheral (Greene) 150 Other: Voiding Method Indwelling Catheter Indwelling Catheter - Exam Past medical history to include: fibromyalgia, GERD, GI bleed, hypertension, osteoarthritis, hypothyroid, pacemaker for tachybradycardia syndrome, paroxysmal atrial flutter fibrillation, severe osteoporosis, esophageal stricture with dilatation, esophagitis Past surgical history to include: Appendectomy, cardiac ablation, ear surgery, pacemaker, or on her fourth left lower lobe, esophageal dilatation, pacemaker, cardiac ablation, Social history: Does not smoke or drink alcohol. Lives alone. Physical examination: VITAL SIGNS: 98.3, 140, 14, 136.93, 96% room air GENERAL: , Sitting up, feeling better EYES: Pupils equal. Conjunctiva pale. HEENT: External appearance of nose and ears normal, oral cavity grossly normal. NECK: JVD not raised; masses not palpable. HEART: Heart sounds irregular no edema. LUNGS: Respiratory rate normal; clear to auscultation. ABDOMEN: Soft, distention much improved, nontender, liver spleen not palpable, no masses palpable. PSYCH: [Alert and oriented x3; mood and affect anxious MUSCULOSKELETAL: Evidence of OA especially in the hands and knees INVESTIGATIONS, reviewed in the clinical context: December 30: W BC 12.3 hemoglobin 11.8, platelets 454and 3.9 creatinine 0.97 Barium enema:: Dilated. No obstruction. Stool present. December 29: Potassium 3.9, BUN 39, creatinine 1.27 December 28: WBC 10.5, hemoglobin 9.8, platelets 422 potassium 4.7 BUN 99 creatinine 3.03 Ultrasound: Possible evidence of medical renal disease White count 12.5 hemoglobin 10.5 platelets 483 potassium 6.1 Admission labs: WBC 11.4 hemoglobin 10.5 platelets 507 potassium 8.6 BUN 129 creatinine 5.3 COVID 19 PCR: Not detected EKG tracing personally reviewed by me-atrial pacemaker Previous labs: Creatinine 2.4 on December 21, 0.85 on December 16 - Labs CBC & Chem 7: 12/30/21 11:14 01/01/22 11:25 Labs: Abnormal Lab Results - Last 24 Hours (Table) 01/01/22 Range/Units 11:25 Sodium 136 L (137-145) mmol/L Carbon Dioxide 19 L (22-30) mmol/L BUN 20 H (7-17) mg/dL Alkaline Phosphatase 166 H (38-126) U/L Total Protein 5.2 L (6.3-8.2) g/dL Albumin 2.7 L (3.5-5.0) g/dL Assessment and Plan Assessment: Assessment and plan: -Hyperkalemia from acute kidney injury, also patient being on potassium supplement, Aldactone, Lasix: Corrected Glucose. Insulin. Lokelma. Renal diet. Bicarbonate. Nephrology consult. -Acute severe kidney injury combination of ATN and prerenal, patient is also on Voltaren, Lasix, Aldactone,: Corrected Discontinued: Aldactone, Lasix,. IV fluids. Continue. Follow with nephrology -Acute ileus.: Clinically better surgery is on board. -Severe constipation Good bowel movement after getting barium enema -Paroxysmal atrial flutter film fibrillation with a prior history of ablation, currently uncontrolled IV Cardizem drip. Lopressor 50 mg twice a day. -Chronic esophagitis Protonix 40 mg twice a day -Essential hypertension Lopressor 50 mg twice a day -Primary osteoarthritis Pain medications -Depression -Hypothyroidism Synthroid 100 g a day -Esophageal dysmotility -Anxiety but otherwise specified Xanax when necessary -Chronic esophageal constriction with repeated dilatations -Pacemaker for tachybradycardia syndrome. -Mild protein calorie malnutrition from decreased oral intake Ensure -Increased pain at the left femur recent operative site. Heating pad and ice pack ordered. Continue narcotics as before. No indication for increase in dose. Seen by orthopedics. No change in plan. Seen by cardiology. IV Cardizem drip. Barium enema did show dilated colon. Large bowel movement after the testing. IV fluids. tolerating clear liquids. Time with Patient: Greater than 30
[2022-01-02 04:25] VITALS: TEMP 97.7
[2022-01-02] MEDS: HYDROcodone/APAP 10-325MG 1 EACH TAB PO PRN ×3 (05:10→17:28)
[2022-01-02] MEDS: DICYCLOMINE 10 MG CAP PO SCH ×2 (05:11→13:26)
[2022-01-02] MEDS: LEVOTHYROXINE 100 MCG TAB PO SCH (05:11)
[2022-01-02 07:31] LABS: Calcium 7.9 mg/dL (8.4-10.2); Magnesium 1.6 mg/dL (1.6-2.3); Potassium 3.2 mmol/L (3.5-5.1)
[2022-01-02 07:41] LABS: Anisocytosis Slight; HCT 31.6 % (34.0-46.0); Hypochromasia Marked; MCH 32.4 pg (25.0-35.0); MCHC 31.4 g/dL (31.0-37.0); MCV 102.9 fL (80.0-100.0); Macrocytosis Moderate; Platelet Count 310 k/uL (150-450); RBC 3.07 m/uL (3.80-5.40); RDW 17.2 % (11.5-15.5); WBC 13.7 k/uL (3.8-10.6)
[2022-01-02 07:42] LABS: HGB 9.9 gm/dL (11.4-16.0)
[2022-01-02 08:07] VITALS: RESP 15
[2022-01-02] MEDS: IPRATROPIUM-ALBUTEROL 3 ML NEB INHALATION SCH ×2 (08:07→11:39)
[2022-01-02 08:17] LABS: Band Neutrophils % 4 %; Basophils # (M) 0.14 k/uL (0-0.2); Eosinophils # (M) 0.27 k/uL (0-0.7); Metamyelocytes # (M) 0.69 k/uL (0); Metamyelocytes % 5 %; Monocytes # (M) 0.27 k/uL (0-1.0); Myelocytes # (M) 0.27 k/uL (0); Myelocytes % 2 %; Neutrophils % (M) 79 %; Nucleated Red Blood Cells 0 /100 WBC (0-0); Total Cells Counted 200
[2022-01-02 08:18] LABS: Toxic Granulation Present
[2022-01-02] MEDS: allopurinoL 100 MG TAB PO SCH (10:03)
[2022-01-02] MEDS: AMIODARONE 200 MG TAB PO SCH (10:03)
[2022-01-02] MEDS: bisacodyL 10 MG SUPP RECTAL SCH (10:04)
[2022-01-02] MEDS: PANTOPRAZOLE 40 MG TABLET PO SCH ×2 (10:04→17:01)
[2022-01-02] MEDS: METOPROLOL TARTRATE 50 MG TAB PO SCH ×2 (10:04→17:01)
[2022-01-02] MEDS: SODIUM BICARBONATE TAB 650 MG TAB PO SCH ×2 (10:04→13:26)
[2022-01-02] MEDS: SODIUM CHLORIDE 0.45% 1,000 ML IV SCH (10:04)
[2022-01-02] MEDS ORDERED: POTASSIUM CHLORIDE ER 20 MEQ TAB.ER PO STA (10:48)
--- NOTE | 2022-01-02 11:00 | P.PN ---
Subjective This is a 76-year-old female with a past medical history significant for recent hip fracture with surgical intervention, hypertension, permanent pacemaker insertion, and paroxysmal atrial fibrillation. Patient follows in the office with Dr. Penn. We have been asked to see the patient in consultation for afib with RVR. Patient is admitted to the hospital secondary to abdominal pain with possible ileus and colitis. 01/02/2022 Patient seen and examined at bedside, no acute distress. She denies any chest pain or shortness of breath or palpitations. She is currently on IV Cardizem drip. This morning she is currently in sinus rhythm with heart rates in the 60s-70s. She is currently maintained on amiodarone 200 mg twice a day, metoprolol tartrate 50 mg twice a day. She is not on anticoagulation secondary to history of recurrent GI bleeds. PHYSICAL EXAM: VITAL SIGNS: Reviewed. GENERAL: Well-developed in no acute distress. HEENT: Neck supple. No JVD LUNGS: Respirations even and unlabored. Lungs essentially clear to auscultation bilaterally. HEART: Regular rate and rhythm. S1 and S2 heard. Systolic murmur noted. ABDOMEN: Soft. Mildly distended. EXTREMITIES: Normal range of motion. No clubbing or cyanosis. Peripheral pulse s intact. No lower extremity edema NEUROLOGIC: Awake and alert. Oriented x 3. ASSESSMENT: Abdominal pain, possible ileus and colitis Recent hip fracture with surgical intervention Paroxysmal atrial fibrillation with RVR not on anticoagulation seconday to GI bleed History of permanent pacemaker insertion Hypertension Acute kidney injury Hyperkalemia PLAN: We will continue current cardiac medications with amiodarone and metoprolol tartrate. Patient not on anticoagulation due to history of recurrent GI bleeding Patient is currently stable from a cardiology perspective, discharge per clear ance from primary and other consultants Follow up with Dr. Penn in 1-2 weeks. Nurse practitioner note has been reviewed by physician. Signing provider agrees with the documented findings, assessment, and plan of care. Objective - Vital Signs Vital signs: Vital Signs Temp 97.7 F 01/02/22 04:00 Pulse 72 01/02/22 08:19 Resp 15 01/02/22 08:06 BP 114/65 01/02/22 08:06 Pulse Ox 96 01/02/22 08:06 FiO2 50 12/28/21 11:28 Intake & Output 0901/02/22 01/02/22 18:59 06:59 18:59 Intake Total 325 Output Total 650 475 Balance -325 -475 Intake: Oral 325 Output: Urine 650 475 Uretheral (Greene) 150 Other: Voiding Method Indwelling Catheter Diaper External Catheter # Voids 1 - Labs CBC & Chem 7: 01/02/22 07:07 01/02/22 07:07 Labs: Abnormal Lab Results - Last 24 Hours (Table) 01/01/22 01/02/22 01/02/22 Range/Units 11:25 07:07 07:07 WBC 13.7 H (3.8-10.6) k/uL RBC 3.07 L (3.80-5.40) m/uL Hgb 9.9 L D (11.4-16.0) gm/dL Hct 31.6 L (34.0-46.0) % MCV 102.9 H (80.0-100.0) fL RDW 17.2 H (11.5-15.5) % Neutrophils # (Manual) 11.30 H (1.3-7.7) k/uL Metamyelocytes # (Man) 0.69 H (0) k/uL Myelocytes # (Manual) 0.27 H (0) k/uL Sodium 136 L 134 L (137-145) mmol/L Potassium 3.2 L (3.5-5.1) mmol/L Carbon Dioxide 19 L 21 L (22-30) mmol/L BUN 20 H 20 H (7-17) mg/dL Calcium 7.9 L (8.4-10.2) mg/dL Alkaline Phosphatase 166 H (38-126) U/L Total Protein 5.2 L (6.3-8.2) g/dL Albumin 2.7 L (3.5-5.0) g/dL
--- NOTE | 2022-01-02 11:28 | P.PN ---
Subjective Progress Note Date: 01/02/22 CHIEF COMPLAINT: Abdominal pain and distention HISTORY OF PRESENT ILLNESS: Patient reports improvement in her abdominal pain. Her abdominal distention has resolved. She did have a small bowel movement ye sterday. She is having flatus. Denies any nausea or vomiting. Tolerating regular diet. Afebrile. WBC 12.3 up to 13.7 Hgb 9.9 sodium 134 potassium 3.2 creatinine 0.78 patient asking for vanilla ensure. Patient is only moving from bed to commode. PHYSICAL EXAM: VITAL SIGNS: Reviewed. GENERAL: Well-developed in no acute distress. HEENT: No sclera icterus. Extraocular movements grossly intact. Moist buccal mucosa. Head is atraumatic, normocephalic. ABDOMEN: Abdomen distended. Diffuse tenderness decreased compared to yesterday. Abdomen is softer compared to yesterday. NEUROLOGIC: Alert and oriented. Cranial nerves II through XII grossly intact. ASSESSMENT: 1. Abdominal pain with abdominal distention 2. Ileus 3. Chronic constipation 4. Hypokalemia PLAN: -Continue regular diet -Continue Dulcolax suppository -Continue to monitor -Continue to work with PT OT -Potassium being replaced -Vanilla ensure ordered Physician Cocktail Waitress note has been reviewed by physician. Signing provider agrees with the documented findings, assessment, and plan of care. I have personally seen and examined the patient, reviewed the BILING[employer] CUST[employer]ER SERVICE /PAs history, exam and MDM and agree with the assessment and plan as written. Based on total visit time, I have performed more than 50% of the visit. As above: Patient is doing better. She says she did have bowel movements over the weekend and is passing flatus. Tolerating regular diet. Denies nausea or vomiting. Plans are for possible transfer to rehab. Continue stool softeners after transfer. Objective - Vital Signs Vital signs: Vital Signs Temp 97.7 F 01/02/22 04:00 Pulse 72 01/02/22 08:19 Resp 15 01/02/22 08:06 BP 114/65 01/02/22 08:06 Pulse Ox 96 01/02/22 08:06 FiO2 50 12/28/21 11:28 Intake & Output 01/01/22 01/02/22 01/02/22 18:59 06:59 18:59 Intake Total 325 Output Total 650 475 200 Balance -325 -475 -200 Intake: Oral 325 Output: Urine 650 475 200 Uretheral (Greene) 150 Other: Voiding Method Indwelling Catheter Diaper External Catheter # Voids 1 1 - Labs CBC & Chem 7: 01/02/22 07:07 01/02/22 07:07 Labs: Abnormal Lab Results - Last 24 Hours (Table) 01/01/22 01/02/22 01/02/22 Range/Units 11:25 07:07 07:07 WBC 13.7 H (3.8-10.6) k/uL RBC 3.07 L (3.80-5.40) m/uL Hgb 9.9 L D (11.4-16.0) gm/dL Hct 31.6 L (34.0-46.0) % MCV 102.9 H (80.0-100.0) fL RDW 17.2 H (11.5-15.5) % Neutrophils # (Manual) 11.30 H (1.3-7.7) k/uL Metamyelocytes # (Man) 0.69 H (0) k/uL Myelocytes # (Manual) 0.27 H (0) k/uL Sodium 136 L 134 L (137-145) mmol/L Potassium 3.2 L (3.5-5.1) mmol/L Carbon Dioxide 19 L 21 L (22-30) mmol/L BUN 20 H 20 H (7-17) mg/dL Calcium 7.9 L (8.4-10.2) mg/dL Alkaline Phosphatase 166 H (38-126) U/L Total Protein 5.2 L (6.3-8.2) g/dL Albumin 2.7 L (3.5-5.0) g/dL
--- NOTE | 2022-01-02 12:09 | P.PN ---
Subjective Patient is seen in follow-up for acute kidney injury. GFR back to baseline. Sodium level 134. Currently on half-normal saline. Denies chest pain or shortness of breath. Tolerating oral intake. Hemodynamically stable. Vital signs are stable. General: The patient appeared well nourished and normally developed. HEENT: Head exam is unremarkable. LUNGS: Breath sounds decreased. HEART: Rate and Rhythm are regular. ABDOMEN: Soft, no distention. EXTREMITITES: No edema. Objective - Vital Signs Vital signs: Vital Signs Temp 97.7 F 01/02/22 04:00 Pulse 68 01/02/22 11:52 Resp 15 01/02/22 08:06 BP 120/68 01/02/22 11:44 Pulse Ox 98 01/02/22 11:44 FiO2 50 12/28/21 11:28 Intake & Output 01/01/22 01/02/22 01/02/22 18:59 06:59 18:59 Intake Total 325 Output Total 650 475 200 Balance -325 -475 -200 Intake: Oral 325 Output: Urine 650 475 200 Uretheral (Greene) 150 Other: Voiding Method Indwelling Catheter Diaper External Catheter # Voids 1 1 - Labs CBC & Chem 7: 01/02/22 07:07 01/02/22 07:07 Labs: Abnormal Lab Results - Last 24 Hours (Table) 01/02/22 01/02/22 Range/Units 07:07 07:07 WBC 13.7 H (3.8-10.6) k/uL RBC 3.07 L (3.80-5.40) m/uL Hgb 9.9 L D (11.4-16.0) gm/dL Hct 31.6 L (34.0-46.0) % MCV 102.9 H (80.0-100.0) fL RDW 17.2 H (11.5-15.5) % Neutrophils # (Manual) 11.30 H (1.3-7.7) k/uL Metamyelocytes # (Man) 0.69 H (0) k/uL Myelocytes # (Manual) 0.27 H (0) k/uL Sodium 134 L (137-145) mmol/L Potassium 3.2 L (3.5-5.1) mmol/L Carbon Dioxide 21 L (22-30) mmol/L BUN 20 H (7-17) mg/dL Calcium 7.9 L (8.4-10.2) mg/dL Assessment and Plan Plan: Assessment: 1. Acute kidney injury mostly prerenal secondary to hypovolemia. Resolved. 2. Hypokalemia from poor intake. 3. Hypomagnesemia from poor intake. 4. Hyponatremia due to hypotonic fluid infusion. 5. Metabolic acidosis secondary to IV fluids and GI losses. Improved. On oral bicarbonate. Plan: Change fluids to normal saline at 50 mL an hour. Encouraged oral intake. Replace potassium and magnesium. Continue to monitor renal function and urine output.
[2022-01-02] MEDS ORDERED: SODIUM CHLORIDE 0.9% 1,000 ML IV SCH (12:15)
[2022-01-02] MEDS: MAGNESIUM SULFATE-D5W PMX 1 GM in DEXTROSE/WATER 1 100ML.BAG IVPB SCH ×2 (12:25→13:26)
--- NOTE | 2022-01-02 12:46 | P.DS ---
Providers Date of admission: 12/26/21 23:53 Expected date of discharge: 01/02/22 Attending physician: Rich Wong Consults: 12/26/21 23:51 Consult Physician Routine Consulting Provider: Margie Stanton Consult Reason/Comments: dialysis Do you want consulting provider notified?: Yes 12/26/21 23:52 Consult Physician Routine Consulting Provider: Raven Fischer Consult Reason/Comments: HyperK Do you want consulting provider notified?: Yes 12/28/21 10:39 Consult Physician Routine Consulting Provider: Ivory Lee Consult Reason/Comments: post op femur facture Do you want consulting provider notified?: Yes 12/29/21 12:00 Consult Physician Urgent Consulting Provider: Grant Palmer Consult Reason/Comments: ileus Do you want consulting provider notified?: Yes 12/29/21 18:30 Consult Physician Stat Consulting Provider: [facility] Consult Reason/Comments: Afib Do you want consulting provider notified?: Yes [facility]: Chief Complaint: Weak tired This is a very pleasant 76-year-old patient of Dr. Wray. Chronic stable medical conditions include esophagitis, peptic ulcer disease, chronic essential hypertension, primary osteoarthritis of multiple joints bilateral, depression, hypothyroidism, esophageal dysmotility, anxiety not otherwise specified,, esophageal constriction with repeated dilatation. Patient is followed at [facility] for the same. Patient on December 09 underwent left proximal femur open reduction internal fixation with IM thu. Secondary to fall. Patient was then discharged to rehab. Patient now presents feeling really weak and tired. Jerking/myoclonic movements. Not able to eat or drink much. Severely worsened renal function. Normally has a bowel movement every other day. Greene catheter was placed in the ER. Has had significant pain at the operative site. Initial potassium was 8.6. Patient is given a cocktail when the potassium down. Admitted with acute severe kidney injury, hyperkalemia, dehydration, acute medical debility. Given IV fluids. Renal offensive medications discontinued. December 28: Sitting up in bed. Tired. Daughter at the bedside. She has been getting [place] 4 times a day as ordered at the [facility]. Discussed with the patient and the daughter the bedside. We'll consult orthopedics because of increased pain. From a medical standpoint. No further narcotics indicated. K pad and icepack to be given locally. Getting IV fluids. Diet discussed. Some improvement in kidney function. Every 4 hours for another 24 hours. December 29: Reclining in bed. Feels better. Seen by orthopedics. No fever any further intervention. Abdomen distended. Computed tomography scan showing ileus. Abdominal x-ray ordered. Consult Dr. Booth. Nausea present. No vomiting. No abdominal discomfort. December 30: This morning spoke to patient's daughter in the room. Patient did undergo barium enema. That showed colon to be dilated. No obstruction. Following that clinic in the room. Patient is having large bowel movements. Feeling better. Had small bowel movement last night. No nausea vomiting. Overnight heart rate went into A. fib rate up to 140. Cardiology consulted. Put on IV Cardizem. January 02: I resumed care of the patient today. Patient is feeling better. Oral intake fair. Had a bowel movement. Patient is in sinus rhythm. Discussed with the patient. Return to rehab. Patient wanted to go home. Pros and cons of discussed. Agreeable to go to rehab. Discussion and discharge planning more than 35 minutes Past medical history to include: fibromyalgia, GERD, GI bleed, hypertension, osteoarthritis, hypothyroid, pacemaker for tachybradycardia syndrome, paroxysmal atrial flutter fibrillation, severe osteoporosis, esophageal stricture with dilatation, esophagitis Past surgical history to include: Appendectomy, cardiac ablation, ear surgery, pacemaker, or on her fourth left lower lobe, esophageal dilatation, pacemaker, cardiac ablation, Social history: Does not smoke or drink alcohol. Lives alone. Physical examination: VITAL SIGNS: Per protocol, 64, 16, 120/60, 98% room air GENERAL: , Sitting up, more comfortable EYES: Pupils equal. Conjunctiva pale. HEENT: External appearance of nose and ears normal, oral cavity grossly normal. NECK: JVD not raised; masses not palpable. HEART: The second sounds normal, no edema. LUNGS: Respiratory rate normal; clear to auscultation. ABDOMEN: Soft, , nontender, liver spleen not palpable, no masses palpable. PSYCH: [Alert and oriented x3; mood and affect anxious MUSCULOSKELETAL: Evidence of OA especially in the hands and knees INVESTIGATIONS, reviewed in the clinical context: January 02: WBC 13.7 hemoglobin 9.9 platelets 310 progression 3.2 creatinine 0.78 Barium enema:: Dilated. No obstruction. Stool present. Ultrasound: Possible evidence of medical renal disease White count 12.5 hemoglobin 10.5 platelets 483 potassium 6.1 Admission labs: WBC 11.4 hemoglobin 10.5 platelets 507 potassium 8.6 BUN 129 creatinine 5.3 COVID 19 PCR: Not detected EKG tracing personally reviewed by me-atrial pacemaker Previous labs: Creatinine 2.4 on December 21, 0.85 on December 16 Assessment and plan: -Hyperkalemia from acute kidney injury, also patient being on potassium supplement, Aldactone, Lasix: Corrected Glucose. Insulin. Lokelma. Renal diet. Bicarbonate. Nephrology consult. -Acute severe kidney injury combination of ATN and prerenal, patient is also on Voltaren, Lasix, Aldactone,: Resolved Discontinued: Aldactone, Lasix,. IV fluids. Continue. Follow with nephrology -Acute ileus.: Improved Followed by surgery -Severe constipation from decreased activity and narcotics Good bowel movement after getting barium enema -Paroxysmal atrial flutter film fibrillation with a prior history of ablation, now back in sinus rhythm Amiodarone. Lopressor 50 mg twice a day -Chronic esophagitis Protonix 40 mg twice a day -Essential hypertension Lopressor 50 mg twice a day -Primary osteoarthritis Pain medications -Depression -Hypothyroidism Synthroid 100 g a day -Esophageal dysmotility -Anxiety but otherwise specified Xanax when necessary -Chronic esophageal constriction with repeated dilatations -Pacemaker for tachybradycardia syndrome. -Mild protein calorie malnutrition from decreased oral intake Ensure Disposition: [facility] Plan - Discharge Summary Discharge Rx Participant: No New Discharge Prescriptions: New Amiodarone [Cordarone] 200 mg PO BID tab Continue SUMAtriptan succinate [Imitrex] 50 mg PO BID PRN PRN Reason: Migraine Headache Dicyclomine [Bentyl] 10 mg PO TID@0600,1400,2200 L.acidoph,Paracasei, B.lactis [Probiotic] 1 cap PO DAILY@1700 allopurinoL [Zyloprim] 50 mg PO DAILY Metoprolol Tartrate [Lopressor] 50 mg PO BID@0800,1700 Diclofenac Sodium [Voltaren] 75 mg PO BID@0800,1700 Ergocalciferol [Vitamin D2 (1250 Mcg = 82194 Iu)] 1,250 mcg PO FR Magnesium Gluconate [Magonate] 750 mg PO DAILY@1700 Triamcinolone 0.5% Ointment 1 applic TOPICAL BID bisacodyL [Dulcolax] 10 mg RECTAL DAILY PRN PRN Reason: Constipation Magnesium Hydroxide [Milk of Magnesia Concentrate] 7,200 mg PO DAILY PRN PRN Reason: Constipation Melatonin 1 mg PO HS Albuterol Inhaler [Ventolin Hfa Inhaler] 2 puff INHALATION RT-Q4H PRN PRN Reason: Shortness Of Breath Spironolactone [Aldactone] 25 mg PO DAILY calcitrioL [Calcitriol] 0.25 mcg PO FR hydrOXYzine HCL [Atarax] 25 mg PO Q6H PRN PRN Reason: Itching Levothyroxine Sodium 100 mcg PO DAILY@0600 Lactulose [Cephulac] 20 gm PO TID PRN ml PRN Reason: Constipation Ipratropium-Albuterol Nebulize [Duoneb 0.5 mg-3 mg/3 ml Soln] 3 ml INHALATION RT-TID each Acetaminophen Tab [Tylenol] 650 mg PO Q4HR PRN tab PRN Reason: Fever And/ Or Pain Ensure Enlive 237 ml PO TID@0800,1200,1700 Ipratropium-Albuterol Nebulize [Duoneb 0.5 mg-3 mg/3 ml Soln] 3 ml INHALATION RT-TID PRN PRN Reason: Shortness Of Breath Na Phos,M-B/Na Phos,Di-Ba [Fleet Adult] 133 ml RECTAL DAILY PRN PRN Reason: Constipation Pantoprazole [Protonix] 40 mg PO BID@0800,1700 Sennosides-Docusate Sodium [Senokot-S] 1 tab PO HS Changed HYDROcodone/APAP 10-325MG [[place] 10-325] 1 tab PO Q6H PRN #18 tab PRN Reason: Pain Amiodarone [Cordarone] See Taper PO DIRECTED #1 Discontinued Furosemide [Lasix] 40 mg PO DAILY@1500 polyethylene glycoL 3350 [Miralax] 17 gm PO DAILY Aspirin 325 mg PO DAILY@1700 Furosemide [Lasix] 80 mg PO DAILY@0600 Potassium Chloride [Klor-Con M20] 20 meq PO DAILY@1700 Potassium Chloride [Klor-Con M20] 40 meq PO DAILY Discharge Medication List SUMAtriptan succinate [Imitrex] 50 mg PO BID PRN 02/15/16 [History] Dicyclomine [Bentyl] 10 mg PO TID@0600,1400,2200 05/10/19 [History] L.acidoph,Paracasei, B.lactis [Probiotic] 1 cap PO DAILY@1700 02/06/20 [History] allopurinoL [Zyloprim] 50 mg PO DAILY 02/06/20 [History] Metoprolol Tartrate [Lopressor] 50 mg PO BID@0800,1700 10/05/20 [History] Albuterol Inhaler [Ventolin Hfa Inhaler] 2 puff INHALATION RT-Q4H PRN 08/04/21 [History] Spironolactone [Aldactone] 25 mg PO DAILY 08/04/21 [History] Diclofenac Sodium [Voltaren] 75 mg PO BID@0800,1700 12/09/21 [History] Ergocalciferol [Vitamin D2 (1250 Mcg = 32433 Iu)] 1,250 mcg PO FR 12/09/21 [History] Levothyroxine Sodium 100 mcg PO DAILY@0600 12/09/21 [History] Magnesium Gluconate [Magonate] 750 mg PO DAILY@17012/09/21 [History] calcitrioL [Calcitriol] 0.25 mcg PO FR 12/09/21 [History] hydrOXYzine HCL [Atarax] 25 mg PO Q6H PRN 12/09/21 [History] Acetaminophen Tab [Tylenol] 650 mg PO Q4HR PRN tab 12/16/21 [Rx] Ipratropium-Albuterol Nebulize [Duoneb 0.5 mg-3 mg/3 ml Soln] 3 ml INHALATION RT-TID each 12/16/21 [Rx] Lactulose [Cephulac] 20 gm PO TID PRN ml 12/16/21 [Rx] Ensure Enlive 237 ml PO TID@0800,1200,1700 12/27/21 [History] Ipratropium-Albuterol Nebulize [Duoneb 0.5 mg-3 mg/3 ml Soln] 3 ml INHALATION RT-TID PRN 12/27/21 [History] Magnesium Hydroxide [Milk of Magnesia Concentrate] 7,200 mg PO DAILY PRN 12/27/21 [History] Melatonin 1 mg PO HS 12/27/21 [History] Na Phos,M-B/Na Phos,Di-Ba [Fleet Adult] 133 ml RECTAL DAILY PRN 12/27/21 [History] Pantoprazole [Protonix] 40 mg PO BID@0800,1700 12/27/21 [History] Sennosides-Docusate Sodium [Senokot-S] 1 tab PO HS 12/27/21 [History] Triamcinolone 0.5% Ointment 1 applic TOPICAL BID 12/27/21 [History] bisacodyL [Dulcolax] 10 mg RECTAL DAILY PRN 12/27/21 [History] Amiodarone [Cordarone] 200 mg PO BID tab 01/02/22 [Rx] Amiodarone [Cordarone] See Taper PO DIRECTED #1 01/02/22 [Rx] HYDROcodone/APAP 10-325MG [[place] 10-325] 1 tab PO Q6H PRN #18 tab 01/02/22 [Rx] Follow up Appointment(s)/Referral(s): Ellen Penn MD [STAFF PHYSICIAN] - 10 Days Elroy Wray DO [Primary Care Provider] - 1-2 days Nate Yepez PAC [PHYSICIAN SURVEY INTERVIEWER] - 3 Weeks (Patient may follow-up with Nate Yepez PA-C or Dr. Odell Lee at [facility] in 2-3 weeks following discharge. ) Activity/Diet/Wound Care/Special Instructions: 1. Strict nonweightbearing on the left lower extremity 2. Patient may shower without a dressing over the surgical sites of the left hip 3. Patient is encouraged to utilize walker or other walking aid to aid in ambulation
[2022-01-02 15:10] VITALS: BP 119/69; PULSE 65
== END 2022-01-02 17:38 | DRG 683 ==
LOC: EC 22:39 → 2SICU 23:53 → 3SCARD 12-27 07:17
PROVIDERS: ADMIT Hospitalist; ATTEND Hospitalist
DX: N17.0 Acute kidney failure with tubular necrosis (principal); E44.1 Mild protein-calorie malnutrition; M48.56XA Collapsed vertebra, not elsewhere classified, lumbar region, initial encounter for fracture; I48.92 Unspecified atrial flutter; K56.7 Ileus, unspecified; I48.20 Chronic atrial fibrillation, unspecified; Z68.1 Body mass index [BMI] 19.9 or less, adult; E87.2 Acidosis; E87.1 Hypo-osmolality and hyponatremia; E86.0 Dehydration; E03.9 Hypothyroidism, unspecified; F32.A Depression, unspecified; I12.9 Hypertensive chronic kidney disease with stage 1 through stage 4 chronic kidney disease, or unspecified chronic kidney disease; N18.30 Chronic kidney disease, stage 3 unspecified; J44.9 Chronic obstructive pulmonary disease, unspecified; I49.5 Sick sinus syndrome; K22.2 Esophageal obstruction; G25.3 Myoclonus; I95.9 Hypotension, unspecified; K62.3 Rectal prolapse; T40.605A Adverse effect of unspecified narcotics, initial encounter; K59.03 Drug induced constipation; K52.9 Noninfective gastroenteritis and colitis, unspecified; T39.395A Adverse effect of other nonsteroidal anti-inflammatory drugs [NSAID], initial encounter; E87.5 Hyperkalemia; R53.81 Other malaise; F41.9 Anxiety disorder, unspecified; K21.00 Gastro-esophageal reflux disease with esophagitis, without bleeding; K22.4 Dyskinesia of esophagus; M15.9 Polyosteoarthritis, unspecified; M79.7 Fibromyalgia; M81.0 Age-related osteoporosis without current pathological fracture; I25.10 Atherosclerotic heart disease of native coronary artery without angina pectoris; R01.1 Cardiac murmur, unspecified; M54.9 Dorsalgia, unspecified; G89.29 Other chronic pain; E83.42 Hypomagnesemia; R33.9 Retention of urine, unspecified; E87.6 Hypokalemia; E86.1 Hypovolemia; R13.10 Dysphagia, unspecified; M25.552 Pain in left hip; Z20.822 Contact with and (suspected) exposure to COVID-19; S72.22XD Displaced subtrochanteric fracture of left femur, subsequent encounter for closed fracture with routine healing; Z95.0 Presence of cardiac pacemaker; Z87.19 Personal history of other diseases of the digestive system; I25.2 Old myocardial infarction; Z87.11 Personal history of peptic ulcer disease; Z91.81 History of falling; Z90.49 Acquired absence of other specified parts of digestive tract; Z90.710 Acquired absence of both cervix and uterus; Z90.89 Acquired absence of other organs; Z87.81 Personal history of (healed) traumatic fracture; Z98.890 Other specified postprocedural states; Z80.8 Family history of malignant neoplasm of other organs or systems; Z82.5 Family history of asthma and other chronic lower respiratory diseases; Z82.61 Family history of arthritis; Z79.899 Other long term (current) drug therapy; Z79.890 Hormone replacement therapy; Z79.82 Long term (current) use of aspirin; Z79.51 Long term (current) use of inhaled steroids; Z91.048 Other nonmedicinal substance allergy status; Z88.8 Allergy status to other drugs, medicaments and biological substances; Z88.2 Allergy status to sulfonamides; Z88.1 Allergy status to other antibiotic agents
CPT/HCPCS: 36415; 71045; 74019; 74176; 74270; 76770; 80048; 80053; 81003; 83605; 83690; 83735; 83880; 84100; 84132; 84443; 84484; 85025; 85610; 85730; 87635; 93005; 94640; 94760; 96374; 96375; 96376; 99291

== ENCOUNTER 2022-02-02 23:30 | Inpatient (IN) | payer MEDICARE, OTHER ==
[2022-02-03] MEDS ORDERED: RX INFO: IV CONTRAST WAS GIVEN 1 EACH MISC MISCELLANE PRN (06:04)
[2022-02-03] MEDS ORDERED: NALOXONE 0.4 MG/ML 1 ML VIAL IV PRN (06:04)
[2022-02-03 06:10] LABS: ALT 30 U/L (4-34); AST 47 U/L (14-36); African American GFR (CKD) 54 (>60 ml/min/1.73 sqM); Albumin 3.1 g/dL (3.5-5.0); Albumin/Globulin Ratio 1.1; Alkaline Phosphatase 246 U/L (38-126); Anion Gap 13 mmol/L; Blood Urea Nitrogen 67 mg/dL (7-17); Calcium 8.6 mg/dL (8.4-10.2); Carbon Dioxide 30 mmol/L (22-30); Chloride 89 mmol/L (98-107); Globulin 2.9 g/dL; Glucose 119 mg/dL (74-99); Lipase 59 U/L (23-300); Magnesium 2.1 mg/dL (1.6-2.3); Non-African American GFR(CKD) 47 (>60 ml/min/1.73 sqM); Phosphorus 3.4 mg/dL (2.5-4.5); Sodium 132 mmol/L (137-145); Total Bilirubin 0.5 mg/dL (0.2-1.3)
[2022-02-03 06:31] LABS: Anisocytosis Slight; Basophils # (A) 0.1 k/uL (0-0.2); Basophils % (A) 0 %; Eosinophils # (A) 0.1 k/uL (0-0.7); Eosinophils % (A) 0 %; HGB 8.1 gm/dL (11.4-16.0); Hypochromasia Slight; Lymphocytes # (A) 1.4 k/uL (1.0-4.8); Lymphocytes % (A) 8 %; MCH 32.8 pg (25.0-35.0); MCHC 32.4 g/dL (31.0-37.0); MCV 101.2 fL (80.0-100.0); Macrocytosis Slight; Mean Platelet Volume 8.9; Monocytes # (A) 1.1 k/uL (0-1.0); Monocytes % (A) 6 %; Neutrophils % (A) 82 %; Platelet Count 327 k/uL (150-450); RBC 2.47 m/uL (3.80-5.40); RDW 16.5 % (11.5-15.5); WBC 17.1 k/uL (3.8-10.6)
--- NOTE | 2022-02-03 06:58 | P.HPIM ---
History of Present Illness H&P Date: 02/03/22 The patient is a 76-year-old female with a sensitive PMH including A. fib, hypertension, peptic ulcer disease, esophageal dysmotility, and recent left proximal femoral fracture status post ORIF on 12/09/21 presents to the emergency room with multiple complaints including left hip pain. The patient was discharged to [facility] postoperatively on 12/16 and was subsequently seen again in the emergency room on 12/27 and admitted for multiple complaints including weakness and was diagnosed with severe acute kidney injury. The patient was again discharged to [facility] on 01/02 and reports that she had returned home one week ago. She reports that over the past 4-5 days, she has developed gradually worsening left hip pain. Reports she continues to be nonweightbearing of the left hip due to her pain which 10 out of 10 at maximal intensity, constant, exacerbated with any movement, with no alleviating factors. She also reports a left lower extremities swelling ongoing for the past few days as well as a right flank and right lower abdominal discomfort which she reports is pleuritic with radiation to the back. We'll also reports fever at home with T-max 103 measured 2 days ago which came down to 101 yesterday as per the patient. She denied urinary complaints, cough, chest discomfort, or diarrhea. In the emergency room, the left hip with pelvis x-ray revealed no evidence of acute pathologies with expected postsurgical changes. Due to downtime, all initial testing can be found in the paper chart. Vital signs upon presentation to the emergency room or BP 121/63, pulse 72, temperature 98.1, and SpO2 97% on room air. Laboratory evaluation revealed sodium 132, potassium 3.0, chloride 89, CO2 30, BUN 67 creatinine 1.15, calcium 8.6, total bilirubin 0.5, AST 47, ALT 30, lipase 59, magnesium 2.1, glucose 119. COVID-19 testing was negative. Troponin I was 0.015. Review of systems: Pertinent positives and negatives as discussed in HPI, a complete review of systems was performed and all other systems are negative. Physical examination: General: non toxic, no distress, appears at stated age, normal weight Derm: no unusual rashes/lesions, warm Head: atraumatic, normocephalic, symmetric Eyes: EOMI, no lid lag, anicteric sclera, pupils equal round reactive to light ENT: Nose and ears atraumatic Neck: No cervical lymphadenopathy, trachea midline, supple Mouth: no lip lesion, mucus membranes moist Cardiovascular: S1S2 reg, no murmur, positive dorsalis pedis pulse bilateral, left lower extremity 2+ pitting edema Lungs: CTA bilateral, no rhonchi, no rales, no accessory muscle use Abdominal: soft, minimal right flank tenderness, no guarding Ext: muscle strength 5 out of 5 in all extremities except left lower extremity due to pain, no gross muscle atrophy, no contractures Neuro: CN II-XI grossly intact, no gross focal neuro deficits Psych: Alert, oriented, appropriate affect Assessment/plan Left hip pain -X-ray unremarkable -Obtain computed tomography scan in light of fever -Orthopedic surgery consult -Pain control Left lower extremity edema -Obtain Doppler Hypokalemia -Replace and monitor Right flank pain with fever -Follow-up UA DVT prophylaxis -Heparin subcu The patient is admitted with an anticipated less than 2 midnight stay for evalu ation of L hip pain CODE STATUS: Full Code Discussed with: Patient Anticipated discharge date: in am Anticipated discharge place: Home Past Medical History Past Medical History: Atrial Fibrillation, Blood Disorder, Coronary Artery Disease (CAD), Chest Pain / Angina, COPD, Fibromyalgia, GERD/Reflux, GI Bleed, Hypertension, Myocardial Infarction ([place]), Musculoskeletal Disorder, Osteoarthritis (OA), Thyroid Disorder Additional Past Medical History / Comment(s): Pacemaker for Syncope/Tachybrady Syndrome. Hx RHEUMATIC FEVER. Heart murmur, chronic back and bilateral shoulder pain. SEVERE OSTEOPROSIS, Vertigo, Degenerative Joint Disease, GI ulcers, esophagitis/esophageal stricture, partially blocked bile duct, PROBLEMS WITH SWALLOWING, "no symptoms of COPD." FALLS "Cannot lie down for long without having back pain." Last Myocardial Infarction Date:: 2002 History of Any Multi-Drug Resistant Organisms: None Reported Past Surgical History: Appendectomy, Cardiac Ablation, Cholecystectomy, Ear Surgery, Heart Catheterization, Hysterectomy, Orthopedic Surgery, Pacemaker, Tonsillectomy Additional Past Surgical History / Comment(s): ORIF LEFT LOWER ARM, HAS HARDWARE, numerous DILATATION OF ESOPHAGUS, biopsies were negative, colonoscopy, Pacemaker (ADAPTA) placed 07/07 at [facility], bilateral stapedectomies(stainless steel in both ears), Hiatal Hernia repair, inguinal and femoral hernia repairs, "cement placed in back, due to broken back/pelvis". Left Femur Surgery 12/09/21 Past Anesthesia/Blood Transfusion Reactions: Family History of Problems w/ Anesthesia, Motion Sickness, Postoperative Nausea & Vomiting (PONV) Additional Past Anesthesia/Blood Transfusion Reaction / Comment(s): No problems with prior blood transfusion. BROTHER HAS PONV. Type of Cardiac Device: Permanent Pacemaker Device Placement Date:: 06/2016 Past Psychological History: No Psychological Hx Reported Additional Psychological History / Comment(s): DENIES ANY HX OF PROBLEM Smoking Status: Never smoker Past Alcohol Use History: None Reported Additional Past Alcohol Use History / Comment(s): Lives alone Past Drug Use History: None Reported - Past Family History Brother(s) Family Medical History: Cancer Additional Family Medical History / Comment(s): Throat cancer. Father Family Medical History: Pneumonia Additional Family Medical History / Comment(s): EMPHYSEMA. Mother Family Medical History: COPD, Rheumatoid Arthritis (RA) Additional Family Medical History / Comment(s): EMPHYSEMA. Medications and Allergies Home Medications Medication Instructions Recorded Confirmed Type SUMAtriptan succinate [Imitrex] 50 mg PO BID PRN 02/15/16 12/27/21 History Dicyclomine [Bentyl] 10 mg PO TID@0600,1400,2200 05/10/19 12/27/21 History L.acidoph,Paracasei, B.lactis 1 cap PO DAILY@1700 02/06/20 12/27/21 History [Probiotic] allopurinoL [Zyloprim] 50 mg PO DAILY 02/06/20 12/27/21 History Metoprolol Tartrate [Lopressor] 50 mg PO BID@0800,1700 10/05/20 12/27/21 History Albuterol Inhaler [Ventolin Hfa 2 puff INHALATION RT-Q4H PRN 08/04/21 12/27/21 History Inhaler] Spironolactone [Aldactone] 25 mg PO DAILY 08/04/21 12/27/21 History Diclofenac Sodium [Voltaren] 75 mg PO BID@0800,1700 12/09/21 12/27/21 History Ergocalciferol [Vitamin D2 (1250 1,250 mcg PO FR 12/09/21 12/27/21 History Mcg = 15668 Iu)] Levothyroxine Sodium 100 mcg PO DAILY@0600 12/09/21 12/27/21 History Magnesium Gluconate [Magonate] 750 mg PO DAILY@1700 12/09/21 12/27/21 History calcitrioL [Calcitriol] 0.25 mcg PO FR 12/09/21 12/27/21 History hydrOXYzine HCL [Atarax] 25 mg PO Q6H PRN 12/09/21 12/27/21 History Acetaminophen Tab [Tylenol] 650 mg PO Q4HR PRN tab 12/16/21 12/27/21 Rx Ipratropium-Albuterol Nebulize 3 ml INHALATION RT-TID each 12/16/21 12/27/21 Rx [Duoneb 0.5 mg-3 mg/3 ml Soln] Lactulose [Cephulac] 20 gm PO TID PRN ml 12/16/21 12/27/21 Rx Ensure Enlive 237 ml PO TID@0800,1200,1700 12/27/21 12/27/21 History Ipratropium-Albuterol Nebulize 3 ml INHALATION RT-TID PRN 12/27/21 12/27/21 History [Duoneb 0.5 mg-3 mg/3 ml Soln] Magnesium Hydroxide [Milk of 7,200 mg PO DAILY PRN 12/27/21 12/27/21 History Magnesia Concentrate] Melatonin 1 mg PO HS 12/27/21 12/27/21 History Na Phos,M-B/Na Phos,Di-Ba [Fleet 133 ml RECTAL DAILY PRN 12/27/21 12/27/21 History Adult] Pantoprazole [Protonix] 40 mg PO BID@0800,1700 12/27/21 12/27/21 History Sennosides-Docusate Sodium 1 tab PO HS 12/27/21 12/27/21 History [Senokot-S] Triamcinolone 0.5% Ointment 1 applic TOPICAL BID 12/27/21 12/27/21 History bisacodyL [Dulcolax] 10 mg RECTAL DAILY PRN 12/27/21 12/27/21 History Amiodarone [Cordarone] 200 mg PO BID tab 01/02/22 Rx Amiodarone [Cordarone] See Taper PO DIRECTED #1 01/02/22 12/27/21 Rx HYDROcodone/APAP 10-325MG [[place] 1 tab PO Q6H PRN #18 tab 01/02/22 Rx 10-325] Allergies Allergy/AdvReac Type Severity Reaction Status Date / Time adhesive Allergy RASH FROM Verified 12/27/21 06:51 EKG STICKERS apixaban [From Eliquis] Allergy Rash/Hives Verified 12/27/21 06:51 celecoxib [From Celebrex] Allergy Rash/Hives Verified 12/27/21 06:51 sertraline HCl [From Zoloft] Allergy Rash/Hives Verified 12/27/21 06:51 sulfamethoxazole Allergy Anaphylaxis Verified 12/27/21 06:51 [From Bactrim] trimethoprim [From Bactrim] Allergy Anaphylaxis Verified 12/27/21 06:51 cholestyramine AdvReac DIZZY/CONFU Verified 12/27/21 06:51 SED
[2022-02-03] MEDS ORDERED: POTASSIUM CHLORIDE ER 20 MEQ TAB.ER PO STA (07:17)
[2022-02-03 08:37] LABS: Appearance,Urine Clear (Clear); Bacteria,Urine Rare /hpf; Bilirubin,Urine Negative (Negative); Blood,Urine Negative (Negative); Color,Urine Light Yellow; Glucose,Urine (UA) Negative (Negative); Ketones,Urine Negative (Negative); Leukocyte Esterase,Urine Moderate (Negative); Mucus,Urine Rare /hpf; Nitrite,Urine Negative (Negative); PH, Urine 5.5 (5.0-8.0); Protein,Urine Trace (Negative); RBC,Urine <1 /hpf (0-5); Specific Gravity,Urine 1.014 (1.001-1.035); Squamous Epithelial Cell,Urine <1 /hpf (0-4); Urobilinogen,Urine <2.0 mg/dL (<2.0); WBC,Urine 11 /hpf (0-5)
--- NOTE | 2022-02-03 08:54 | CT ---
EXAMINATION TYPE: CT hip LT wo con DATE OF EXAM: 02/03/2022 COMPARISON: Radiograph 02/03/2022 HISTORY: 76-year-old female with left hip pain, fever TECHNIQUE: Contiguous axial scanning of the left without IV contrast. Scanning was extended through t he left knee given the patient's long intramedullary thu. Coronal and sagittal reconstructions perfor [employer]. CT DLP: 463.5 mGycm Automated exposure control for dose reduction was used. FINDINGS: Intramedullary nail and screw fixation are in appropriate alignment. This spans across the patient's oblique subtrochanteric/proximal shaft fracture However, relative to the nail and hip screw, there is posterior rotation of the proximal fracture fragment. Please refer to sagittal image 49 for a repres entative image. This results in the pointed fracture margin of the proximal fracture fragment to prot rude into the anterior upper thigh soft tissues. Overlying the tip of the fracture fragment, there is a heterogeneous oval collection spanning 15.8 cm craniocaudal by 3.7 cm wide by 2.3 cm AP (refer to axial image 72). This has some mass effect onto the overlying rectus femoris and underlying vastus mu sculature. There is mild periosteal callus formation scattered throughout but healing remains largely incomplete . Some of the fracture margins also appear hazy. There may be a subtle fluid collection measuring 2.6 x 1.2 cm anterior to the proximal aspect of the distal fracture fragment, axial image 50 and sagitta l image 53. An additional fracture line across the posterior aspect of the greater trochanter appears unchanged b ack to 12/29/2021, and axial image 33 and sagittal image 51. IMPRESSION: 1. ANTEGRADE INTRAMEDULLARY NAIL WITH SCREW FIXATION ACROSS THE PATIENT'S OBLIQUE PROXIMAL SHAFT/SUBT ROCHANTERIC FRACTURE. THERE HAS BEEN NO SIGNIFICANT HEALING CHANGE COMPARED TO 12/29/2021. ONLY MINIMAL , POORLY FORMED PERIOSTEAL CALLUS IS NOTED. SOME OF THE FRACTURE MARGINS APPEAR HAZY. THERE MAY BE A SUBTLE 2.6 X 1.2 CM FLUID COLLECTION ANTERIOR TO THE PROXIMAL ASPECT OF THE DISTAL FRACTURE FRAGMENT ON AXIAL IMAGE 15 SAGITTAL IMAGE 53. THERE IS ALSO PERSISTENT LUCENCY ALONG THE POSTERIOR ASPECT OF T HE GREATER TROCHANTER. UNDERLYING INFECTION SHOULD BE EXCLUDED ON A CLINICAL BASIS. 2. ALSO, NOTE THAT THERE IS CHRONIC MALALIGNMENT OF THE FRACTURE FRAGMENTS. THE PROXIMAL FRAGMENT IS ROTATED POSTERIORLY SO THAT THE SHARP POINT PROTRUDES INTO THE ANTERIOR UPPER THIGH SOFT TISSUES. OVE RLYING THE SHARP POINT, THERE IS AN ELONGATED HETEROGENEOUS COLLECTION MEASURING 15.8 X 3.7 X 2.3 CM PUSHING UP ON TO THE RECTUS FEMORIS AND DOWN ONTO THE UNDERLYING VASTUS. PROBABLE ELONGATED HEMATOMA.
--- NOTE | 2022-02-03 09:34 | XR ---
EXAM: XR Left Hip With Pelvis When Performed, 1 View CLINICAL HISTORY: pain. no recent traumatic injury. had hip/femur surgery 12/12 TECHNIQUE: Frontal view of the left hip with pelvis when performed. COMPARISON: comparison is made to prior CT scan of the abdomen and pelvis from December 29, 2021.. FINDINGS: Bones/joints: There is a left dynamic hip screw in place with extended intramedullary thu to the distal femur crossing a fracture of the femur. No dislocation. Soft tissues: Unremarkable. IMPRESSION: No evidence of acute hip pathology. Status post ORIF of left proximal femur fracture with expected postsurgical changes.
[2022-02-03] MEDS: HEPARIN SODIUM,PORCINE/PF 5,000 UNIT/0.5 ML SYRINGE SQ SCH ×3 (10:57→23:31)
[2022-02-03] MEDS ORDERED: ONDANSETRON 4 MG/2 ML VIAL IVP PRN (11:30)
[2022-02-03] MEDS ORDERED: VANCOMYCIN IV PER PHARMACY 1 EACH MISC MISCELLANE PRN (11:30)
--- NOTE | 2022-02-03 12:06 | XR ---
Lumbar spine HISTORY: Back pain, leg pain 3 views the lumbar spine correlated prior exam 01/14/2018 Bone mineralization is reduced which limits evaluation. There is a spinal curvature similar to prior exam. Surgical clips noted incidentally in the right upper quadrant. Alignment is stable. There is a minimal retrolisthesis grade 1 L3-4 similar to prior exam. Superior endplate of L4 shows depression, chronic. There is some mild loss of disc height L3-4. Sclerosis in the posterior elements is consiste nt with facet arthropathy. Postop change noted to the hip. IMPRESSION: Osteoporosis, degenerative disc disease, facet arthropathy and spinal curvature. Postop c hanges.
[2022-02-03] MEDS: SODIUM CHLORIDE 0.9% 500 ML 500 ML IV SCH ×3 (12:08→14:47)
[2022-02-03] MEDS: HYDROcodone/APAP 5-325MG 1 EACH TAB PO PRN ×2 (12:13→20:52)
--- NOTE | 2022-02-03 12:37 | P.CNOR ---
History of Present Illness - HPI Consult date: 02/03/22 Consult reason: other History of present illness: The patient is a pleasant 76-year-old female who is well known to our service. 12/10/2021 we performed open reduction internal fixation of her left subtrochanteric comminuted femur fracture. That had happened traumatically after she had sustained a fall and she has continued to have significant pain at her left hip despite the surgery and fixation. She has had little mobility since her injury. The past 2 days she is apparently been having fevers and continued pain at her left hip and lower back. She denies any numbness tingling in her legs. She says she is unable to move her left leg. She says she does have frequency with urination but she's been wearing an external catheter. She denies any chest pain or shortness of breath but she has been having fevers. She was fever to 101 early this morning. Review of Systems As per HPI. Denies chest pressure is present. Continued pain at her left hip with any sort of movement around her left hip. She is not been doing to the weightbearing on her left lower extremity as per our orders. Past Medical History Past Medical History: Atrial Fibrillation, Blood Disorder, Coronary Artery Disease (CAD), Chest Pain / Angina, COPD, Fibromyalgia, GERD/Reflux, GI Bleed, Hypertension, Myocardial Infarction ([place]), Musculoskeletal Disorder, O steoarthritis (OA), Thyroid Disorder Additional Past Medical History / Comment(s): Pacemaker for Syncope/Tachybrady Syndrome. Hx RHEUMATIC FEVER. Heart murmur, chronic back and bilateral shoulder pain. SEVERE OSTEOPROSIS, Vertigo, Degenerative Joint Disease, GI ulcers, esoph agitis/esophageal stricture, partially blocked bile duct, PROBLEMS WITH SWALLOWING, "no symptoms of COPD." FALLS "Cannot lie down for long without having back pain.". Left hip open reduction internal fixation of some trochanteric comminuted femur fracture in November 2021 Last Myocardial Infarction Date:: 2002 History of Any Multi-Drug Resistant Organisms: None Reported Past Surgical History: Appendectomy, Cardiac Ablation, Cholecystectomy, Ear Surgery, Heart Catheterization, Hysterectomy, Orthopedic Surgery, Pacemaker, Tonsillectomy Additional Past Surgical History / Comment(s): ORIF LEFT LOWER ARM, HAS HARDWARE, numerous DILATATION OF ESOPHAGUS, biopsies were negative, colonoscopy, Pacemaker (ADAPTA) placed 3/17 at [facility], bilateral stapedectomies(stainless steel in both ears), Hiatal Hernia repair, inguinal and femoral hernia repairs, "cement placed in back, due to broken back/pelvis". Left Femur Surgery 12/09/21 Past Anesthesia/Blood Transfusion Reactions: Family History of Problems w/ Anesthesia, Motion Sickness, Postoperative Nausea & Vomiting (PONV) Additional Past Anesthesia/Blood Transfusion Reaction / Comm: No problems with prior blood transfusion. BROTHER HAS PONV. Type of Cardiac Device: Permanent Pacemaker Device Placement Date:: 06/2016 Past Psychological History: No Psychological Hx Reported Additional Psychological History / Comment(s): DENIES ANY HX OF PROBLEM Smoking Status: Never smoker Past Alcohol Use History: None Reported Additional Past Alcohol Use History / Comment(s): Lives alone Past Drug Use History: None Reported - Past Family History Brother(s) Family Medical History: Cancer Additional Family Medical History / Comment(s): Throat cancer. Father Family Medical History: Pneumonia Additional Family Medical History / Comment(s): EMPHYSEMA. Mother Family Medical History: COPD, Rheumatoid Arthritis (RA) Additional Family Medical History / Comment(s): EMPHYSEMA. Medications and Allergies Home Medications Medication Instructions Recorded Confirmed Type SUMAtriptan succinate [Imitrex] 50 mg PO BID PRN 02/15/16 02/03/22 History Dicyclomine [Bentyl] 10 mg PO TID 05/10/19 02/03/22 History L.acidoph,Paracasei, B.lactis 1 cap PO DAILY@1700 02/06/20 02/03/22 History [Probiotic] allopurinoL [Zyloprim] 50 mg PO DAILY 02/06/20 02/03/22 History Metoprolol Tartrate [Lopressor] 50 mg PO BID 10/05/20 02/03/22 History Albuterol Inhaler [Ventolin Hfa 2 puff INHALATION RT-Q4H PRN 08/04/21 02/03/22 History Inhaler] Spironolactone [Aldactone] 25 mg PO DAILY 08/04/21 02/03/22 History Diclofenac Sodium [Voltaren] 75 mg PO BID 12/09/21 02/03/22 History Ergocalciferol [Vitamin D2 (1250 1,250 mcg PO FR 12/09/21 02/03/22 History Mcg = 44330 Iu)] Levothyroxine Sodium 100 mcg PO DAILY@0600 12/09/21 02/03/22 History Magnesium Gluconate [Magonate] 750 mg PO DAILY@1700 12/09/21 02/03/22 History calcitrioL [Calcitriol] 0.25 mcg PO FR 12/09/21 02/03/22 History hydrOXYzine HCL [Atarax] 25 mg PO Q6H PRN 12/09/21 02/03/22 History Pantoprazole [Protonix] 40 mg PO BID@0800,1700 12/27/21 02/03/22 History Triamcinolone 0.5% Ointment 1 applic TOPICAL BID 12/27/21 02/03/22 History Amiodarone [Cordarone] 200 mg PO DAILY 02/03/22 02/03/22 History Amitriptyline HCl [Elavil] 25 mg PO HS 02/03/22 02/03/22 History Aspirin EC [Ecotrin Low Dose] 81 mg PO DAILY 02/03/22 02/03/22 History Denosumab [Prolia] 60 mg SQ Q180D 02/03/22 02/03/22 History Furosemide [Lasix] 80 mg PO AC-BID 02/03/22 02/03/22 History HYDROcodone/APAP 5-325MG [[place] 1 tab PO BID PRN 02/03/22 02/03/22 History 5-325] Loratadine [Claritin] 5 mg PO BID PRN 02/03/22 02/03/22 History Potassium Chloride ER [K-Dur 10] 40 meq PO BID-W/MEALS 02/03/22 02/03/22 History polyethylene glycoL 3350 [Miralax] 17 gm PO DAILY 02/03/22 02/03/22 History Allergies Allergy/AdvReac Type Severity Reaction Status Date / Time adhesive Allergy RASH FROM Verified 02/03/22 06:24 EKG STICKERS apixaban [From Eliquis] Allergy Rash/Hives Verified 02/03/22 06:24 celecoxib [From Celebrex] Allergy Rash/Hives Verified 02/03/22 06:24 sertraline HCl [From Zoloft] Allergy Rash/Hives Verified 02/03/22 06:24 sulfamethoxazole Allergy Anaphylaxis Verified 02/03/22 06:24 [From Bactrim] trimethoprim [From Bactrim] Allergy Anaphylaxis Verified 02/03/22 06:24 cholestyramine AdvReac DIZZY/CONFU Verified 02/03/22 06:24 SED Physical Examination Osteopathic Statement: *. No significant issues noted on an osteopathic structural exam other than those noted in the History and Physical/Consult. - L Spine: dermatomal strength & reflexes bilateral Strength: hip flexion: 3/5 (Her lumbar lower extremity exam is limited due to her pain at her lower extremities with her hip fracture. Her low back is nontender over the midline. There is no erythema.) Strength: hip extension: 3/5 (At her left hip she has well-healed incision. There is no erythema. There is no significant swelling. There is no significant other change in the skin around her left hip. There is no drainage. She is tender around her hardware at the lateral thigh. Her thigh and calf are soft and nontender.) Strength: ankle plantar flexion: 5/5 (She has sustained dorsal flexion plantar flexion and EHL.) Results - Labs Labs: Abnormal Lab Results - Last 24 Hours (Table) 02/03/22 02/03/22 02/03/22 Range/Units 01:30 02:20 05:42 WBC 17.1 H (3.8-10.6) k/uL RBC 2.47 L (3.80-5.40) m/uL Hgb 8.1 L (11.4-16.0) gm/dL Hct 25.0 L (34.0-46.0) % MCV 101.2 H (80.0-100.0) fL RDW 16.5 H (11.5-15.5) % Neutrophils # 14.0 H (1.3-7.7) k/uL Monocytes # 1.1 H (0-1.0) k/uL Sodium 132 L (137-145) mmol/L Potassium 3.0 L (3.5-5.1) mmol/L Chloride 89 L (98-107) mmol/L BUN 67 H (7-17) mg/dL Creatinine 1.15 H (0.52-1.04) mg/dL Glucose 119 H (74-99) mg/dL AST 47 H (14-36) U/L Alkaline Phosphatase 246 H (38-126) U/L Total Protein 6.0 L (6.3-8.2) g/dL Albumin 3.1 L (3.5-5.0) g/dL Urine Protein Trace H (Negative) Ur Leukocyte Esterase Moderate H (Negative) Urine WBC 11 H (0-5) /hpf Urine Bacteria Rare H (None) /hpf Urine Mucus Rare H (None) /hpf H & H 02/03/22 Range/Units 02:20 Hgb 8.1 L (11.4-16.0) gm/dL Hct 25.0 L (34.0-46.0) % Result Diagrams: 02/03/22 02:20 02/03/22 01:30 - Diagnostic results Hip CT: report reviewed (The imaging shows her left hip hardware intact. She has comminuted fracture which some callus formation around the fracture. The report mentions a small fluid collection and then an elongated narrow fluid collection but I am unable to visualize this on my own.), image reviewed Assessment and Plan Assessment: 2 months status post left hip open reduction internal fixation for comminuted subtrochanteric femur fracture due to a fall Continued left hip pain with limited mobility at her left lower extremity due to her injury Compression deformity at lumbar spine No superficial evidence of infection at the left hip Positive fevers Suspicious urinalysis for infection Plan: 2 months status post left hip open reduction internal fixation for comminuted subtrochanteric femur fracture due to a fall Continued left hip pain with limited mobility at her left lower extremity due to her injury Compression deformity at lumbar spine No superficial evidence of infection at the left hip Positive fevers Suspicious urinalysis for infection The patient has a white count of 17 with a somewhat suspicious urinalysis. She has recently undergone left hip open reduction internal fixation about 2 months ago for her femur fracture and has had very limited recovery despite fixation. The CT report mentions possible postoperative hematoma. I'm unable to visualize this on my own on computed tomography scan and clinically reviewing her left hip I am unable to palpate or localized and specific hematoma. Her left hip appears to be healing appropriately without any erythema or evidence of infectious process at the local site. Is very difficult to determine the source of her fevers and elevated white count. Dr. Garza with infectious disease was present at bedside as well to evaluate the hip site. I do not think I would be able to obtain an aspirate of the site on my own unit bedside or intraoperatively. I think if they would consider the possibility of aspiration of the hematoma with interventional radiology that may be a possibility and Dr. Garza we'll look into this as well. I do not plan specific open irrigation and debridement as the site itself looks clean at this point and I would plan to hold off unless we have a positive aspirate. The patient still healing from her left hip and proximal femur subtrochanteric fracture and should remain nonweightbearing but may do gentle range of motion exercises to try to improve her mobility at her left lower extremity.
[2022-02-03] MEDS: VANCOMYCIN 750 MG in SODIUM CHLORIDE 0.9% 250 ML IVPB SCH (12:47)
[2022-02-03] MEDS: SODIUM CHLORIDE 0.9% 1,000 ML IV SCH ×3 (15:23→23:32)
--- NOTE | 2022-02-03 15:42 | US ---
EXAMINATION TYPE: US venous doppler duplex LE LT DATE OF EXAM: 02/03/2022 3:25 PM COMPARISON: US 2021 CLINICAL HISTORY: LLE edema. Left leg pain Exam done portable SIDE PERFORMED: Left TECHNIQUE: The lower extremity deep venous system is examined utilizing real time linear array sonog guillermina with graded compression, doppler sonography and color-flow sonography. VESSELS IMAGED: Common Femoral Vein Deep Femoral Vein Greater Saphenous Vein * Femoral Vein Popliteal Vein Small Saphenous Vein * Proximal Calf Veins (* superficial vessels) Grayscale, color doppler, spectral doppler imaging performed of the deep veins of the lower extremiti es. There is normal flow, compressibility, vascular waveforms. Left Leg: Appears negative for DVT IMPRESSION: No venous thrombosis within the left lower extremity from the level of the knee centrall y
--- NOTE | 2022-02-03 16:34 | P.PN ---
Progress Note - Text Progress Note Date: 02/03/22 (seen at 1030) Hospitalist Interval Note Patient seen and examined at bedside. She continues to complain of left-sided hip pain. Denies any chest pain, shortness breath, nausea. Vital signs reviewed General: non toxic, no distress, appears older than stated age Derm: warm, dry Head: atraumatic, normocephalic, symmetric Eyes: EOMI, no lid lag, anicteric sclera Mouth: no lip lesion, mucus membranes moist Cardiovascular: S1S2 reg, no murmur, positive posterior tibial pulse bilateral, Lungs: CTA bilateral, no rhonchi, no rales , no accessory muscle use Ext: no gross muscle atrophy, no edema, no contractures Left lower extremity with pain on palpation of the left lateral leg from hip to knee, no erythema, no warmth Neuro: CN II-XI grossly intact, no focal neuro deficits Psych: Alert, oriented, flat affect Assessment/Plan: Sepsis secondary to infected hematoma versus abscess -Awaiting orthopedic recommendation -Computed tomography scan of the hip revealed-abscess versus hematoma noted -IV fluid bolus and start IV fluids as patient does meet sepsis criteria -Vancomycin and Rocephin ordered -Infectious disease consultation placed, IR consult placed by ID Anemia, chronic This is an update note for patient , for full note on 02/03 see H&P. There is no charge associated with this note.
[2022-02-03] MEDS ORDERED: ALBUTEROL NEBULIZED 2.5 MG/3 ML INHALATION PRN (17:04)
[2022-02-03] MEDS ORDERED: LORATADINE 10 MG TAB PO PRN (17:04)
[2022-02-03] MEDS ORDERED: hydrOXYzine HCL 25 MG TAB PO PRN (17:04)
[2022-02-03] MEDS ORDERED: DENOSUMAB 60 MG/ML 1 ML SYRINGE SQ SCH (17:15)
[2022-02-03] MEDS: DICYCLOMINE 10 MG CAP PO SCH (20:47)
[2022-02-03] MEDS: METOPROLOL TARTRATE 50 MG TAB PO SCH (20:47)
[2022-02-03] MEDS: AMITRIPTYLINE HCL 25 MG TAB PO SCH (20:47)
[2022-02-04] MEDS: HYDROcodone/APAP 5-325MG 1 EACH TAB PO PRN ×3 (02:52→18:05)
[2022-02-04] MEDS: LEVOTHYROXINE 100 MCG TAB PO SCH (05:23)
--- NOTE | 2022-02-04 08:31 | P.PN ---
Progress Note - Text Progress Note Date: 02/04/22 The patient is seen and examined at bedside. She feels her leg is doing a little bit better. She has not been having fevers. She is been getting up to the commode but that's about it as far as her activity. On exam She is afebrile with T-max 99 At her left hip there is no erythema there is no drainage there is no increased swelling. She does have tenderness over the lateral aspect of her hip and that appears to be where her hardware is prominent. I do not see evidence of infection at her left hip. Her thigh and calf are soft and nontender. She has sustained dorsal flexion plantar flexion. She is able to bend her knee better this morning. Her blood cultures are pending and negative to date Assessment and plan Left hip pain status post open reduction internal fixation for a subtrochanteric comminuted fracture about 2 months ago The patient continues to have significant pain at her left hip which is understandable given the severity of her injury. She did not have a typical fracture and I would expect a prolonged recovery given her frailty and her fixation and fracture. She should still try to mobilize with physical therapy. She should try to remain nonweightbearing on the left lower extremity but should try to increase her mobility at her knee and hip with active and passive range of motion as tolerated. I tried to explain this again to her today. At this point I do not see obvious infection at her left hip. She has been afebrile for more than the past 24 hours and I do not have plans of irrigation and debridement at her left hip at this point. Infectious disease evaluated the patient yesterday also in was considering radiology guided aspiration if they deem necessary. If this were to be positive he could consider the possibility of further intervention however at this point I would not plan acute surgery. She'll continue medical management as well.
--- NOTE | 2022-02-04 08:32 | P.CONS ---
History of Present Illness - Reason for Consult Consult date: 02/03/22 Septic bursitis versus hematoma Requesting physician: Steph Smith - Chief Complaint Fever 3 days - History of Present Illness Patient is a 76-year female who is status post ORIF of the left subtrochanteric commuted femoral fracture procedure was completed on 12/10/2021 and the patient did have a traumatic fall leading to the fracture patient subsequently was discharged in stable condition patient now presenting to the hospital for evaluation of increasing pain to the left hip area and apparently the patient started having a fever about 3 days ago patient denies having any headache or URI symptoms denies having any chest pain or shortness of breath or cough no nausea no vomiting no abdominal pain or diarrhea no significant burning or frequency of urine patient on presentation to the hospital he did have a fever of 101.3 F patient was tachycardic did have white count of 17.1 thousand with a left shift BUN and creatinine is mildly elevated urine has been mildly positive COVID testing was negative patient did have a x-ray of the left hip no evidence of acute hip pathology status post ORIF of the left Bosman femur fracture with expected postsurgical changes patient subsequently have a CT of the left hip which was suspicious for a 2.6X 1.2 cm fluid collection anterior to the proximal aspect of the distal fracture fragment and a question of possible hematoma versus an abscess patient was started on vancomycin and Rocephin infectious disease was consulted for further management of antibiotic therapy Review of Systems Positive point has been mentioned in the HPI rest of the systems are negative Past Medical History Past Medical History: Atrial Fibrillation, Blood Disorder, Coronary Artery Disease (CAD), Chest Pain / Angina, COPD, Fibromyalgia, GERD/Reflux, GI Bleed, Hypertension, Myocardial Infarction ([place]), Musculoskeletal Disorder, Osteoarthritis (OA), Thyroid Disorder Additional Past Medical History / Comment(s): Pacemaker for Syncope/Tachybrady Syndrome. Hx RHEUMATIC FEVER. Heart murmur, chronic back and bilateral shoulder pain. SEVERE OSTEOPROSIS, Vertigo, Degenerative Joint Disease, GI ulcers, esophagitis/esophageal stricture, partially blocked bile duct, PROBLEMS WITH SWALLOWING, "no symptoms of COPD." FALLS "Cannot lie down for long without having back pain.". Left hip open reduction internal fixation of some trochanteric comminuted femur fracture in November 2021 Last Myocardial Infarction Date:: 2002 History of Any Multi-Drug Resistant Organisms: None Reported Past Surgical History: Appendectomy, Cardiac Ablation, Cholecystectomy, Ear Surgery, Heart Catheterization, Hysterectomy, Orthopedic Surgery, Pacemaker, Tonsillectomy Additional Past Surgical History / Comment(s): ORIF LEFT LOWER ARM, HAS HARDWARE, numerous DILATATION OF ESOPHAGUS, biopsies were negative, colonoscopy, Pacemaker (ADAPTA) placed 07/07 at [facility], bilateral stapedectomies(stainless steel in both ears), Hiatal Hernia repair, inguinal and femoral hernia repairs, "cement placed in back, due to broken back/pelvis". Left Femur Surgery 12/09/21 Past Anesthesia/Blood Transfusion Reactions: Family History of Problems w/ Anesthesia, Motion Sickness, Postoperative Nausea & Vomiting (PONV) Additional Past Anesthesia/Blood Transfusion Reaction / Comm: No problems with prior blood transfusion. BROTHER HAS PONV. Type of Cardiac Device: Permanent Pacemaker Device Placement Date:: 06/2016 Past Psychological History: No Psychological Hx Reported Additional Psychological History / Comment(s): DENIES ANY HX OF PROBLEM Smoking Status: Never smoker Past Alcohol Use History: None Reported Additional Past Alcohol Use History / Comment(s): Lives alone Past Drug Use History: None Reported - Past Family History Brother(s) Family Medical History: Cancer Additional Family Medical History / Comment(s): Throat cancer. Father Family Medical History: Pneumonia Additional Family Medical History / Comment(s): EMPHYSEMA. Mother Family Medical History: COPD, Rheumatoid Arthritis (RA) Additional Family Medical History / Comment(s): EMPHYSEMA. Medications and Allergies Home Medications Medication Instructions Recorded Confirmed Type SUMAtriptan succinate [Imitrex] 50 mg PO BID PRN 02/15/16 02/03/22 History Dicyclomine [Bentyl] 10 mg PO TID 05/10/19 02/03/22 History L.acidoph,Paracasei, B.lactis 1 cap PO DAILY@1700 02/06/20 02/03/22 History [Probiotic] allopurinoL [Zyloprim] 50 mg PO DAILY 02/06/20 02/03/22 History Metoprolol Tartrate [Lopressor] 50 mg PO BID 10/05/20 02/03/22 History Albuterol Inhaler [Ventolin Hfa 2 puff INHALATION RT-Q4H PRN 08/04/21 02/03/22 History Inhaler] Spironolactone [Aldactone] 25 mg PO DAILY 08/04/21 02/03/22 History Diclofenac Sodium [Voltaren] 75 mg PO BID 12/09/21 02/03/22 History Ergocalciferol [Vitamin D2 (1250 1,250 mcg PO FR 12/09/21 02/03/22 History Mcg = 20319 Iu)] Levothyroxine Sodium 100 mcg PO DAILY@0600 12/09/21 02/03/22 History Magnesium Gluconate [Magonate] 750 mg PO DAILY@1700 12/09/21 02/03/22 History calcitrioL [Calcitriol] 0.25 mcg PO FR 12/09/21 02/03/22 History hydrOXYzine HCL [Atarax] 25 mg PO Q6H PRN 12/09/21 02/03/22 History Pantoprazole [Protonix] 40 mg PO BID@0800,1700 12/27/21 02/03/22 History Triamcinolone 0.5% Ointment 1 applic TOPICAL BID 12/27/21 02/03/22 History Amiodarone [Cordarone] 200 mg PO DAILY 02/03/22 02/03/22 History Amitriptyline HCl [Elavil] 25 mg PO HS 02/03/22 02/03/22 History Aspirin EC [Ecotrin Low Dose] 81 mg PO DAILY 02/03/22 02/03/22 History Denosumab [Prolia] 60 mg SQ Q180D 02/03/22 02/03/22 History Furosemide [Lasix] 80 mg PO AC-BID 02/03/22 02/03/22 History HYDROcodone/APAP 5-325MG [Mcgrath 1 tab PO BID PRN 02/03/22 02/03/22 History 5-325] Loratadine [Claritin] 5 mg PO BID PRN 02/03/22 02/03/22 History Potassium Chloride ER [K-Dur 10] 40 meq PO BID-W/MEALS 02/03/22 02/03/22 History polyethylene glycoL 3350 [Miralax] 17 gm PO DAILY 02/03/22 02/03/22 History cefUROXime axetiL [Ceftin] 500 mg PO BID #20 tab 02/10/22 Rx Allergies Allergy/AdvReac Type Severity Reaction Status Date / Time adhesive Allergy RASH FROM Verified 02/03/22 06:24 EKG STICKERS apixaban [From Eliquis] Allergy Rash/Hives Verified 02/03/22 06:24 celecoxib [From Celebrex] Allergy Rash/Hives Verified 02/03/22 06:24 sertraline HCl [From Zoloft] Allergy Rash/Hives Verified 02/03/22 06:24 sulfamethoxazole Allergy Anaphylaxis Verified 02/03/22 06:24 [From Bactrim] trimethoprim [From Bactrim] Allergy Anaphylaxis Verified 02/03/22 06:24 cholestyramine AdvReac DIZZY/CONFU Verified 02/03/22 06:24 SED Physical Exam Vitals: Vital Signs Temp Pulse Pulse Resp BP BP Pulse Ox 02/03/22 12:28 99.6 F 02/03/22 09:08 101.3 F H 57 L 22 119/62 97 02/03/22 07:05 97.8 F 57 L 18 118/59 96 Intake and Output 02/02/22 02/03/22 02/03/22 22:59 06:59 14:59 Other: Weight 47.16 kg GENERAL DESCRIPTION: Elderly female lying in bed, no distress. No tachypnea or accessory muscle of respiration use. HEENT: Shows Pallor , no scleral icterus. Oral mucous membrane is dry. No pharyngeal erythema or thrush NECK: Trachea central, no thyromegaly. LUNGS: Unlabored breathing. Clear to auscultation anteriorly. No wheeze or c rackle. HEART: S1, S2, regular rate and rhythm. No loud murmur ABDOMEN: Soft, no tenderness , guarding or rigidity, no organomegaly EXTREMITIES: No edema of feet. Left hip incision is currently healed there is no swelling no redness minimal tenderness on deep palpation SKIN: No rash, no masses palpable. NEUROLOGICAL: The patient is awake, alert, oriented x3, mood and affect normal. Results CBC & Chem 7: 02/08/22 10:33 02/10/22 05:57 Labs: Abnormal Lab Results - Last 24 Hours (Table) 02/03/22 02/03/22 02/03/22 Range/Units 01:30 02:20 05:42 WBC 17.1 H (3.8-10.6) k/uL RBC 2.47 L (3.80-5.40) m/uL Hgb 8.1 L (11.4-16.0) gm/dL Hct 25.0 L (34.0-46.0) % MCV 101.2 H (80.0-100.0) fL RDW 16.5 H (11.5-15.5) % Neutrophils # 14.0 H (1.3-7.7) k/uL Monocytes # 1.1 H (0-1.0) k/uL Sodium 132 L (137-145) mmol/L Potassium 3.0 L (3.5-5.1) mmol/L Chloride 89 L (98-107) mmol/L BUN 67 H (7-17) mg/dL Creatinine 1.15 H (0.52-1.04) mg/dL Glucose 119 H (74-99) mg/dL AST 47 H (14-36) U/L Alkaline Phosphatase 246 H (38-126) U/L Total Protein 6.0 L (6.3-8.2) g/dL Albumin 3.1 L (3.5-5.0) g/dL Urine Protein Trace H (Negative) Ur Leukocyte Esterase Moderate H (Negative) Urine WBC 11 H (0-5) /hpf Urine Bacteria Rare H (None) /hpf Urine Mucus Rare H (None) /hpf Assessment and Plan (1) Sepsis Current Visit: Yes Status: Acute Code(s): A41.9 - SEPSIS, UNSPECIFIED ORGANISM SNOMED Code(s): 77173229 Plan: 1patient present to hospital with sepsis in this patient who did have a fever elevated white count tachycardia source is possible left hip surgical site infection the question of possible infected hematoma versus an abscess and likely need to cover for the MRSA to be the likely pathogen. 2we will obtain IR consult for drainage of this fluid collection which should be sent for gram stain and culture. 3patient to continue with the vancomycin and Rocephin while waiting for the culture to finalize. We will follow on clinical condition and cultures to further adjust medication if needed Thank you for this consultation will follow this patient along with you Time with Patient: Greater than 30
[2022-02-04] MEDS: polyethylene glycoL 3350 17 GM POWD.PACK PO SCH (09:20)
[2022-02-04] MEDS: HEPARIN SODIUM,PORCINE/PF 5,000 UNIT/0.5 ML SYRINGE SQ SCH ×2 (09:20→16:32)
[2022-02-04] MEDS: DICYCLOMINE 10 MG CAP PO SCH ×3 (09:21→20:12)
[2022-02-04] MEDS: AMIODARONE 200 MG TAB PO SCH (09:22)
[2022-02-04] MEDS: ASPIRIN 81 MG PO SCH (09:22)
[2022-02-04] MEDS: PANTOPRAZOLE 40 MG TABLET PO SCH ×2 (09:22→16:32)
[2022-02-04] MEDS: METOPROLOL TARTRATE 50 MG TAB PO SCH ×2 (09:22→20:13)
[2022-02-04] MEDS: allopurinoL 100 MG TAB PO SCH (09:23)
[2022-02-04] MEDS: SODIUM CHLORIDE 0.9% 1,000 ML IV SCH ×2 (11:23→17:38)
[2022-02-04 11:33] LABS: HCT 23.5 % (37.2-46.3); HGB 7.4 g/dL (12.0-15.0); MCH 33.5 pg (27.0-32.0); MCHC 31.5 g/dL (32.0-37.0); MCV 106.3 fL (80.0-97.0); Mean Platelet Volume 10.2 fL (9.5-12.2); NRBC Per 100 WBC 0.1 /100 WBCS (0.0-0.0); Platelet Count 386 X 10*3/uL (140-440); RBC 2.21 X 10*6/uL (4.10-5.20); RDW 18.2 % (11.5-14.5); WBC 16.48 X 10*3/uL (4.50-10.00)
[2022-02-04 11:49] LABS: African American GFR (CKD) 55.4 (60.0-200.0); Anion Gap 9.8 mmol/L (10.00-18.00); BUN/Creat Ratio 31.86 Ratio (12.00-20.00); C Reactive Protein 22.3 mg/dL (0.00-0.80); Calcium 8.2 mg/dL (8.7-10.3); Carbon Dioxide 28.1 mmol/L (20.0-27.5); Non-African American GFR(CKD) 47.8 (60.0-200.0); Potassium 3.6 mmol/L (3.5-5.5)
[2022-02-04 11:51] LABS: Erythrocyte Sedimentation Rate 47 mm/Hr (0-30)
[2022-02-04] MEDS: VANCOMYCIN 750 MG in SODIUM CHLORIDE 0.9% 250 ML IVPB SCH (12:20)
--- NOTE | 2022-02-04 16:14 | P.PN ---
Progress Note - Text Progress Note Date: 02/04/22 This is a very pleasant 76-year-old patient of Dr. Wray. Chronic stable medical conditions include esophagitis, peptic ulcer disease, chronic essential hypertension, primary osteoarthritis of multiple joints bilateral, depression, hypothyroidism, esophageal dysmotility, anxiety not otherwise specified,, esophageal constriction with repeated dilatation.- followed at [facility] for the same. December 09/2022 underwent left proximal femur open reduction internal fixation with IM thu. Atrial fibrillation not on anticoagulation because of previous GI bleeds The patient was discharged to [facility] postoperatively on 12/16 and was subsequently seen again in the emergency room on 12/27 and admitted for multiple complaints including weakness and was diagnosed with severe acute kidney injury. The patient was again discharged to [facility] on 01/02 and reports that she had returned home one week ago. She reports that over the past 4-5 days, she has developed gradually worsening left hip pain. Reports she continues to be nonweightbearing of the left hip due to her pain which 10 out of 10 at maximal intensity, constant, exacerbated with any movement, with no alleviating factors. She also reports a left lower extremities swelling ongoing for the past few days as well as a right flank and right lower abdominal discomfort which she reports is pleuritic with radiation to the back. We'll also reports fever at home with T-max 103 measured 2 days ago which came down to 101 yesterday as per the patient. She denied urinary complaints, cough, chest discomfort, or diarrhea. In the emergency room, the left hip with pelvis x-ray revealed no evidence of acute pathologies with expected postsurgical changes. Due to downtime, all initial testing can be found in the paper chart. Vital signs upon presentation to the emergency room or BP 121/63, pulse 72, temperature 98.1, and SpO2 97% on room air. Laboratory evaluation revealed sodium 132, potassium 3.0, chloride 89, CO2 30, BUN 67 creatinine 1.15, calcium 8.6, total bilirubin 0.5, AST 47, ALT 30, lipase 59, magnesium 2.1, glucose 119. COVID-19 testing was negative. Troponin I was 0.015. 02/04/2022: Assumed care of the patient from sound physicians today. Computed tomography scan had shown subtle fluid collection 2.6 x 1.2 cm anterior to the proximal LAD expected the distal fracture fragment. Also possible hematoma and the rectus femoris. Concerned about this being infected. Interventional radiology consulted. Patient also being followed by vascular surgery and ID. Patient has decreased appetite. Does not like hospital food. On IV ceftriaxone and vancomycin. Active Medications Hydrocodone Bitart/Acetaminophen (Hydrocodone/Apap 5-325mg 1 Each Tab) 1 each PO Q6HR PRN PRN Reason: Pain Last Admin: 02/04/22 09:21 Dose: 1 each Albuterol Sulfate (Albuterol Nebulized 2.5 Mg/3 Ml) 2.5 mg INHALATION RT-Q4H PRN PRN Reason: Shortness Of Breath Allopurinol (Allopurinol 100 Mg Tab) 50 mg PO DAILY [facility] Last Admin: 02/04/22 09:23 Dose: 50 mg Amiodarone HCl (Amiodarone 200 Mg Tab) 200 mg PO DAILY [facility] Last Admin: 02/04/22 09:22 Dose: 200 mg Amitriptyline HCl (Amitriptyline Hcl 25 Mg Tab) 25 mg PO HS [facility] Last Admin: 02/03/22 20:47 Dose: 25 mg Aspirin (Aspirin 81 Mg) 81 mg PO DAILY [facility] Last Admin: 02/04/22 09:22 Dose: 81 mg Calcitriol (Calcitriol 0.25 Mcg Cap) 0.25 mcg PO FR [facility] Dicyclomine HCl (Dicyclomine 10 Mg Cap) 10 mg PO TID [facility] Last Admin: 02/04/22 09:21 Dose: Not Given Heparin Sodium (Porcine) (Heparin Sodium,Porcine/Pf 5,000 Unit/0.5 Ml Syringe) 5,000 unit SQ Q8HR [facility] Last Admin: 02/04/22 09:20 Dose: 5,000 unit Hydroxyzine HCl (Hydroxyzine Hcl 25 Mg Tab) 25 mg PO Q6H PRN PRN Reason: Itching Ceftriaxone Sodium 2 gm/ (Sodium Chloride) 50 mls @ 100 mls/hr IVPB Q24HR [facility]; Protocol Last Admin: 02/04/22 09:20 Dose: 100 mls/hr Sodium Chloride (Saline 0.9%) 1,000 mls @ 130 mls/hr IV .Q7H42M [facility] Last Admin: 02/04/22 11:23 Dose: Not Given Vancomycin HCl 750 mg/ Sodium (Chloride) 250 mls @ 125 mls/hr IVPB Q24H [facility] Last Admin: 02/04/22 12:20 Dose: 125 mls/hr Lactobacillus Acidoph/Bulgaricus (Lactobacillus Acidoph & Bulgar 1 Each Packet) 1 each PO DAILY@1700 [facility] Levothyroxine Sodium (Levothyroxine 100 Mcg Tab) 100 mcg PO DAILY@0600 [facility] Last Admin: 02/04/22 05:23 Dose: 100 mcg Loratadine (Loratadine 10 Mg Tab) 5 mg PO BID PRN PRN Reason: Itching Metoprolol Tartrate (Metoprolol Tartrate 50 Mg Tab) 50 mg PO BID [facility] Last Admin: 02/04/22 09:22 Dose: 50 mg Miscellaneous Information (Rx Info: Iv Contrast Was Given 1 Each Misc) 1 each MISCELLANE DAILY PRN PRN Reason: Per Protocol Stop: 02/05/22 06:05 Naloxone HCl (Naloxone 0.4 Mg/Ml 1 Ml Vial) 0.2 mg IV Q2M PRN PRN Reason: Opioid Reversal Ondansetron HCl (Ondansetron 4 Mg/2 Ml Vial) 4 mg IVP Q6H PRN PRN Reason: Nausea Last Admin: 02/03/22 12:07 Dose: 4 mg Pantoprazole Sodium (Pantoprazole 40 Mg Tablet) 40 mg PO BID@0800,1700 [facility] Last Admin: 02/04/22 09:22 Dose: 40 mg Polyethylene Glycol (Polyethylene Glycol 3350 17 Gm Powd.Pack) 17 gm PO DAILY [facility] Last Admin: 02/04/22 09:20 Dose: 17 gm Past medical history to include: fibromyalgia, GERD, GI bleed, hypertension, osteoarthritis, hypothyroid, pacemaker for tachybradycardia syndrome, paroxysmal atrial flutter fibrillation, severe osteoporosis, esophageal stricture with dilatation, esophagitis Past surgical history to include: Appendectomy, cardiac ablation, ear surgery, pacemaker, or on her fourth left lower lobe, esophageal dilatation, pacemaker, cardiac ablation, Social history: Does not smoke or drink alcohol. Lives alone. Physical examination: VITAL SIGNS: 98, 66, 18, 126.78, 94% room air GENERAL: Reclining in bed tired EYES: Pupils equal. Conjunctiva pale. HEENT: External appearance of nose and ears normal, oral cavity grossly normal. NECK: JVD not raised; masses not palpable. HEART: The second sounds normal, no edema. LUNGS: Respiratory rate normal; clear to auscultation. ABDOMEN: Soft, , nontender, liver spleen not palpable, no masses palpable. PSYCH: [Alert and oriented x3; mood and affect anxious MUSCULOSKELETAL: Evidence of OA especially in the hands and knees . Slight swelling in the left hip area INVESTIGATIONS, reviewed in the clinical context: February 04: White count 16.4 hemoglobin 7.4 platelets 386 potassium 3.6 BUN 36 creatinine 1.1 CRP 22.3 COVID 19: Not detected Admission labs: White count 17.1 hemoglobin 8.1 percussion 3 BUN 67 creatinine 1.15 Venous Doppler: Negative for DVT left leg. CT scans left hip: Subtle 2.6 x 1.2 cm fluid collection anterior to the proximal aspect of the distal fracture fragment on MH. Also persistent lucency along the posterior aspect of the greater trochanter. Chronic malalignment of the fracture fragments. There is an elongated heterogenous collection measuring 15.8 x 3.7 x 2.3 cm pushing up on the rectus femoris and down into the underlying vastus. Possible hematoma Assessment and plan: -Left sided: elongated heterogenous collection measuring 15.8 x 3.7 x 2.3 cm pushing up on the rectus femoris and down into the underlying vastus. Possible hematoma. Could be infected IV vancomycin, IV ceftriaxone. Intervention radiology consulted. -Paroxysmal atrial flutter film fibrillation with a prior history of ablation, and atrial flutter Amiodarone. Lopressor 50 mg twice a day -Chronic esophagitis Protonix 40 mg twice a day -Macrocytic anemia Check B12 folate. Iron studies. -Essential hypertension Lopressor 50 mg twice a day -Primary osteoarthritis Pain medications -Hypothyroid Synthroid -Esophageal dysmotility -Anxiety but otherwise specified Xanax when necessary -Chronic esophageal constriction with repeated dilatations -Pacemaker for tachybradycardia syndrome. -Mild protein calorie malnutrition from decreased oral intake Ensure Patient to continue with IV ceftriaxone, vancomycin. Intervention radiology consulted. Check iron studies B12 folate. With ID. Discussed with patient. Total time spent about 40 minutes with over 25 minutes of discussion.
[2022-02-04] MEDS: LACTOBACILLUS ACIDOPH & BULGAR 1 EACH PACKET PO SCH (16:32)
[2022-02-04] MEDS: AMITRIPTYLINE HCL 25 MG TAB PO SCH (20:13)
[2022-02-05] MEDS: HYDROcodone/APAP 5-325MG 1 EACH TAB PO PRN ×4 (00:06→19:27)
[2022-02-05] MEDS: HEPARIN SODIUM,PORCINE/PF 5,000 UNIT/0.5 ML SYRINGE SQ SCH ×3 (00:07→16:12)
[2022-02-05] MEDS: LEVOTHYROXINE 100 MCG TAB PO SCH (06:07)
[2022-02-05] MEDS: SODIUM CHLORIDE 0.9% 1,000 ML IV SCH ×3 (06:11→17:17)
[2022-02-05] MEDS: ASPIRIN 81 MG PO SCH (08:42)
[2022-02-05] MEDS: polyethylene glycoL 3350 17 GM POWD.PACK PO SCH (08:42)
[2022-02-05] MEDS: AMIODARONE 200 MG TAB PO SCH (08:42)
[2022-02-05] MEDS: allopurinoL 100 MG TAB PO SCH (08:43)
[2022-02-05] MEDS: PANTOPRAZOLE 40 MG TABLET PO SCH ×2 (08:43→16:13)
[2022-02-05] MEDS: DICYCLOMINE 10 MG CAP PO SCH ×3 (08:44→19:58)
--- NOTE | 2022-02-05 09:29 | P.PN ---
Subjective Progress Note Date: 02/04/22 Principal diagnosis: Fever and possible infection of left hip surgical site Patient is a 76-year-old female who recently did have a fall with the fracture to the left femur in this patient who is status post surgical repair now presenting to the hospital with a fever pain to the left hip site abdominal CT concern for possible fluid collection with a question of hematoma versus abscess. On today's evaluation and that is 02/04/2022, the patient denies having any fever or any chills, the patient is breathing comfortably on room air, pain to the left leg is currently controlled no chest pain shortness of breath or cough no nausea no vomiting no abdominal pain no diarrhea Objective - Vital Signs Vital signs: Vital Signs Temp 98 F 02/04/22 14:54 Pulse 66 02/04/22 14:54 Resp 18 02/04/22 14:54 BP 126/78 02/04/22 14:54 Pulse Ox 94 L 02/04/22 14:54 FiO2 Intake & Output 02/03/22 02/04/22 02/04/22 18:59 06:59 18:59 Intake Total 200 Balance 200 Weight 47.16 kg Intake: Oral 200 Other: Voiding Method Bedside Commode Bedside Commode # Voids 1 2 1 - Exam GENERAL DESCRIPTION: An elderly female lying in bed in no distress RESPIRATORY SYSTEM: Unlabored breathing , decreased breath sounds at bases HEART: S1 S2 regular rate and rhythm , ABDOMEN: Soft , no tenderness EXTREMITIES: No edema feet - Labs CBC & Chem 7: 02/04/22 07:25 02/05/22 05:46 Labs: Abnormal Lab Results - Last 24 Hours (Table) 02/04/22 02/04/22 Range/Units 07:25 07:25 WBC 16.48 H (4.50-10.00) X 10*3/uL RBC 2.21 L (4.10-5.20) X 10*6/uL Hgb 7.4 L (12.0-15.0) g/dL Hct 23.5 L (37.2-46.3) % MCV 106.3 H (80.0-97.0) fL MCH 33.5 H (27.0-32.0) pg MCHC 31.5 L (32.0-37.0) g/dL RDW 18.2 H (11.5-14.5) % Absolute Nucleated RBC 0.02 H (0.00-0.00) X 10*3/uL NRBC/100 WBC Diff 0.1 H (0.0-0.0) /100 WBCS ESR 47 H (0-30) mm/Hr Carbon Dioxide 28.1 H (20.0-27.5) mmol/L Anion Gap 9.80 L (10.00-18.00) mmol/L BUN 36.0 H (9.0-27.0) mg/dL Est GFR (CKD-EPI)AfAm 55.4 L (60.0-200.0) Est GFR (CKD-EPI)NonAf 47.8 L (60.0-200.0) BUN/Creatinine Ratio 31.86 H (12.00-20.00) Ratio Glucose 114 H (70-110) mg/dL Calcium 8.2 L (8.7-10.3) mg/dL C-Reactive Protein 22.30 H (0.00-0.80) mg/dL Microbiology - Last 24 Hours (Table) 02/03/22 12:41 Blood Culture - Preliminary Blood No Growth after 24 hours 02/03/22 06:06 Urine Culture - Preliminary Urine,Voided Gram Neg Bacilli 02/03/22 01:30 Blood Culture - Preliminary Blood No Growth after 24 hours 02/03/22 01:15 Blood Culture - Preliminary Blood No Growth after 24 hours Assessment and Plan (1) Abscess of left hip Current Visit: Yes Status: Acute Code(s): L02.416 - CUTANEOUS ABSCESS OF LEFT LOWER LIMB SNOMED Code(s): 799579 (2) Sepsis Current Visit: Yes Status: Acute Code(s): A41.9 - SEPSIS, UNSPECIFIED ORGANISM SNOMED Code(s): 91553424 Plan: 1patient present to hospital with sepsis in this patient who did have a fever elevated white count tachycardia source is possible left hip surgical site infection the question of possible infected hematoma versus an abscess and likely need to cover for the MRSA to be the likely pathogen. 2waiting for IR consult for drainage of this fluid collection which should be sent for gram stain and culture. 3patient to continue with the vancomycin and Rocephin while waiting for the culture to finalize. Time with Patient: Less than 30
[2022-02-05] MEDS: METOPROLOL TARTRATE 50 MG TAB PO SCH ×2 (11:29→19:58)
[2022-02-05] MEDS: VANCOMYCIN 750 MG in SODIUM CHLORIDE 0.9% 250 ML IVPB SCH (12:10)
--- NOTE | 2022-02-05 12:43 | P.PN ---
Subjective Progress Note Date: 02/05/22 Principal diagnosis: Fever. Status post left hip fracture. Status post close reduction and insertion of intertrochanteric nail of the left hip November 2021. Urinary tract infection. This is a 76-year-old female whom we're following regarding her left hip pain. The patient continues to improve with regards to her pain. Blood cultures are negative to date. Urine culture is positive for Klebsiella pneumoniae. She has no new complaints or concerns today. Vital signs are stable. T-max is 98.5. Objective - Vital Signs Vital signs: Vital Signs Temp 98.4 F 02/05/22 08:00 Pulse 62 02/05/22 08:00 Resp 17 02/05/22 08:00 BP 105/63 02/05/22 08:00 Pulse Ox 93 L 02/05/22 08:00 FiO2 Intake & Output 02/04/22 02/05/22 02/05/22 18:59 06:59 18:59 Intake Total 200 Balance 200 Intake: Oral 200 Other: Voiding Method Bedside Commode # Voids 1 2 - Exam This is a pleasant 76-year-old female in no acute distress. She is alert and oriented 3. She is sitting up in a chair at the bedside and appears comfortable. Exam of the hip and left lower extremity reveal no obvious deformity. Incision is well-healed. There is no surrounding erythema or ecchymosis. There is mild soft tissue swelling about the lateral hip and thigh. She has full knee extension without difficulty or pain. No pain with logroll of the hip. She has difficulty with sustaining dorsiflexion of the left foot against resistance. Neurovascular status to the lower extremities grossly intact. - Labs CBC & Chem 7: 02/04/22 07:25 02/05/22 05:46 Labs: Microbiology - Last 24 Hours (Table) 02/03/22 06:06 Urine Culture - Final Urine,Voided Klebsiella pneumoniae 02/03/22 01:30 Blood Culture - Preliminary Blood No Growth after 48 hours 02/03/22 01:15 Blood Culture - Preliminary Blood No Growth after 48 hours 02/03/22 12:41 Blood Culture - Preliminary Blood No Growth after 24 hours Assessment and Plan (1) History of fracture of left hip Current Visit: Yes Status: Acute Code(s): Z87.81 - PERSONAL HISTORY OF (HEALED) TRAUMATIC FRACTURE SNOMED Code(s): 473807445 (2) Back pain Current Visit: No Status: Acute Code(s): M54.9 - DORSALGIA, UNSPECIFIED SNOMED Code(s): 186981243 (3) Fever of unknown origin (FUO) Current Visit: No Status: Acute Code(s): R50.9 - FEVER, UNSPECIFIED SNOMED Code(s): 5356530 Plan: The clinical findings are discussed with the patient. She is to continue to progress with activities as tolerated she continues to be nonweightbearing to the left lower extremity. At this time we see no obvious evidence of sepsis to the left hip or surgical site infection. She does have a urinary tract infect ion which may be the source of her fevers. We will defer further investigation to infectious disease. She may be discharged to inpatient rehab when cleared medically.
[2022-02-05] MEDS: LACTOBACILLUS ACIDOPH & BULGAR 1 EACH PACKET PO SCH (16:13)
--- NOTE | 2022-02-05 18:06 | P.PN ---
Progress Note - Text Progress Note Date: 02/05/22 This is a very pleasant 76-year-old patient of Dr. Wray. Chronic stable medical conditions include esophagitis, peptic ulcer disease, chronic essential hypertension, primary osteoarthritis of multiple joints bilateral, depression, hypothyroidism, esophageal dysmotility, anxiety not otherwise specified,, esophageal constriction with repeated dilatation.- followed at [facility] for the same. December 09/2022 underwent left proximal femur open reduction internal fixation with IM thu. Atrial fibrillation not on anticoagulation because of previous GI bleeds The patient was discharged to [facility] postoperatively on 12/16 and was subsequently seen again in the emergency room on 12/27 and admitted for multiple complaints including weakness and was diagnosed with severe acute kidney injury. The patient was again discharged to [facility] on 01/02 and reports that she had returned home one week ago. She reports that over the past 4-5 days, she has developed gradually worsening left hip pain. Reports she continues to be nonweightbearing of the left hip due to her pain which 10 out of 10 at maximal intensity, constant, exacerbated with any movement, with no alleviating factors. She also reports a left lower extremities swelling ongoing for the past few days as well as a right flank and right lower abdominal discomfort which she reports is pleuritic with radiation to the back. We'll also reports fever at home with T-max 103 measured 2 days ago which came down to 101 yesterday as per the patient. She denied urinary complaints, cough, chest discomfort, or diarrhea. In the emergency room, the left hip with pelvis x-ray revealed no evidence of acute pathologies with expected postsurgical changes. Due to downtime, all initial testing can be found in the paper chart. Vital signs upon presentation to the emergency room or BP 121/63, pulse 72, temperature 98.1, and SpO2 97% on room air. Laboratory evaluation revealed sodium 132, potassium 3.0, chloride 89, CO2 30, BUN 67 creatinine 1.15, calcium 8.6, total bilirubin 0.5, AST 47, ALT 30, lipase 59, magnesium 2.1, glucose 119. COVID-19 testing was negative. Troponin I was 0.015. 02/04/2022: Assumed care of the patient from [facility] today. Computed tomography scan had shown subtle fluid collection 2.6 x 1.2 cm anterior to the proximal LAD expected the distal fracture fragment. Also possible hematoma and the rectus femoris. Concerned about this being infected. Interventional radiology consulted. Patient also being followed by vascular surgery and ID. Patient has decreased appetite. Does not like hospital food. On IV ceftriaxone and vancomycin. 02/05/2022: Sitting up in a chair. Left thigh pain. Pending I&D by interventional radiology tomorrow. On IV ceftriaxone and vancomycin. Oral intake eating some. Active Medications Hydrocodone Bitart/Acetaminophen (Hydrocodone/Apap 5-325mg 1 Each Tab) 1 each PO Q6HR PRN PRN Reason: Pain Last Admin: 02/05/22 13:08 Dose: 1 each Albuterol Sulfate (Albuterol Nebulized 2.5 Mg/3 Ml) 2.5 mg INHALATION RT-Q4H PRN PRN Reason: Shortness Of Breath Allopurinol (Allopurinol 100 Mg Tab) 50 mg PO DAILY [facility] Last Admin: 02/05/22 08:43 Dose: 50 mg Amiodarone HCl (Amiodarone 200 Mg Tab) 200 mg PO DAILY [facility] Last Admin: 02/05/22 08:42 Dose: 200 mg Amitriptyline HCl (Amitriptyline Hcl 25 Mg Tab) 25 mg PO HS [facility] Last Admin: 02/04/22 20:13 Dose: 25 mg Aspirin (Aspirin 81 Mg) 81 mg PO DAILY [facility] Last Admin: 02/05/22 08:42 Dose: 81 mg Calcitriol (Calcitriol 0.25 Mcg Cap) 0.25 mcg PO FR [facility] Dicyclomine HCl (Dicyclomine 10 Mg Cap) 10 mg PO TID [facility] Last Admin: 02/05/22 15:59 Dose: Not Given Heparin Sodium (Porcine) (Heparin Sodium,Porcine/Pf 5,000 Unit/0.5 Ml Syringe) 5,000 unit SQ Q8HR [facility] Last Admin: 02/05/22 16:12 Dose: 5,000 unit Hydroxyzine HCl (Hydroxyzine Hcl 25 Mg Tab) 25 mg PO Q6H PRN PRN Reason: Itching Ceftriaxone Sodium 2 gm/ (Sodium Chloride) 50 mls @ 100 mls/hr IVPB Q24HR [facility]; Protocol Last Admin: 02/05/22 08:43 Dose: 100 mls/hr Sodium Chloride (Saline 0.9%) 1,000 mls @ 130 mls/hr IV .Q7H42M [facility] Last Admin: 02/05/22 17:17 Dose: Not Given Vancomycin HCl 750 mg/ Sodium (Chloride) 250 mls @ 125 mls/hr IVPB Q24H [facility] Last Admin: 02/05/22 12:10 Dose: 125 mls/hr Lactobacillus Acidoph/Bulgaricus (Lactobacillus Acidoph & Bulgar 1 Each Packet) 1 each PO DAILY@1700 [facility] Last Admin: 02/05/22 16:13 Dose: 1 each Levothyroxine Sodium (Levothyroxine 100 Mcg Tab) 100 mcg PO DAILY@0600 [facility] Last Admin: 02/05/22 06:07 Dose: 100 mcg Loratadine (Loratadine 10 Mg Tab) 5 mg PO BID PRN PRN Reason: Itching Metoprolol Tartrate (Metoprolol Tartrate 50 Mg Tab) 50 mg PO BID [facility] Last Admin: 02/05/22 11:29 Dose: Not Given Miscellaneous Information (Vancomycin Trough Due 1 Each Misc) 0 each MISCELLANE DIRECTED ONE Stop: 02/06/22 11:01 Naloxone HCl (Naloxone 0.4 Mg/Ml 1 Ml Vial) 0.2 mg IV Q2M PRN PRN Reason: Opioid Reversal Ondansetron HCl (Ondansetron 4 Mg/2 Ml Vial) 4 mg IVP Q6H PRN PRN Reason: Nausea Last Admin: 02/03/22 12:07 Dose: 4 mg Pantoprazole Sodium (Pantoprazole 40 Mg Tablet) 40 mg PO BID@0800,1700 [facility] Last Admin: 02/05/22 16:13 Dose: 40 mg Polyethylene Glycol (Polyethylene Glycol 3350 17 Gm Powd.Pack) 17 gm PO DAILY [facility] Last Admin: 02/05/22 08:42 Dose: 17 gm Past medical history to include: fibromyalgia, GERD, GI bleed, hypertension, osteoarthritis, hypothyroid, pacemaker for tachybradycardia syndrome, paroxysmal atrial flutter fibrillation, severe osteoporosis, esophageal stricture with dilatation, esophagitis Past surgical history to include: Appendectomy, cardiac ablation, ear surgery, pacemaker, or on her fourth left lower lobe, esophageal dilatation, pacemaker, cardiac ablation, Social history: Does not smoke or drink alcohol. Lives alone. Physical examination: VITAL SIGNS: 98.4, 67, 18, 140s/69, 96% room air GENERAL: Sitting up in a chair, awake slightly tired EYES: Pupils equal. Conjunctiva pale. HEENT: External appearance of nose and ears normal, oral cavity grossly normal. NECK: JVD not raised; masses not palpable. HEART: The second sounds normal, no edema. LUNGS: Respiratory rate normal; clear to auscultation. ABDOMEN: Soft, , nontender, liver spleen not palpable, no masses palpable. PSYCH: [Alert and oriented x3; mood and affect anxious MUSCULOSKELETAL: Evidence of OA especially in the hands and knees . Slight swelling in the left hip area INVESTIGATIONS, reviewed in the clinical context: February 04: White count 16.4 hemoglobin 7.4 platelets 386 potassium 3.6 BUN 36 creatinine 1.1 CRP 22.3 COVID 19: Not detected Admission labs: White count 17.1 hemoglobin 8.1 percussion 3 BUN 67 creatinine 1.15 Venous Doppler: Negative for DVT left leg. CT scans left hip: Subtle 2.6 x 1.2 cm fluid collection anterior to the proximal aspect of the distal fracture fragment on MH. Also persistent lucency along the posterior aspect of the greater trochanter. Chronic malalignment of the fracture fragments. There is an elongated heterogenous collection measuring 15.8 x 3.7 x 2.3 cm pushing up on the rectus femoris and down into the underlying vastus. Possible hematoma Assessment and plan: -Left sided: elongated heterogenous collection measuring 15.8 x 3.7 x 2.3 cm pushing up on the rectus femoris and down into the underlying vastus. Possible hematoma. Could be infected: Slow to respond IV vancomycin, IV ceftriaxone. Intervention radiology consulted. -Paroxysmal atrial flutter film fibrillation with a prior history of ablation, and atrial flutter Amiodarone. Lopressor 50 mg twice a day -Chronic esophagitis Protonix 40 mg twice a day -Macrocytic anemia Check B12 folate. Iron studies. -Essential hypertension Lopressor 50 mg twice a day -Primary osteoarthritis Pain medications -Hypothyroid Synthroid -Esophageal dysmotility -Anxiety but otherwise specified Xanax when necessary -Chronic esophageal constriction with repeated dilatations -Pacemaker for tachybradycardia syndrome. -Mild protein calorie malnutrition from decreased oral intake Ensure Continue IV ceftriaxone, vancomycin. Intervention radiology ID pending.. Other medications to continue.
[2022-02-05] MEDS: AMITRIPTYLINE HCL 25 MG TAB PO SCH (19:58)
[2022-02-06] MEDS: HYDROcodone/APAP 5-325MG 1 EACH TAB PO PRN ×4 (03:09→19:45)
[2022-02-06] MEDS: SODIUM CHLORIDE 0.9% 1,000 ML IV SCH ×3 (05:44→17:35)
[2022-02-06] MEDS: LEVOTHYROXINE 100 MCG TAB PO SCH (05:44)
[2022-02-06 06:40] LABS: Anisocytosis Slight; HCT 27.8 % (34.0-46.0); HGB 8.3 gm/dL (11.4-16.0); Hypochromasia Marked; MCH 32.6 pg (25.0-35.0); MCV 108.6 fL (80.0-100.0); Macrocytosis Marked; Mean Platelet Volume 9.4; Platelet Count 525 k/uL (150-450); RBC 2.56 m/uL (3.80-5.40); RDW 16.8 % (11.5-15.5); WBC 15.6 k/uL (3.8-10.6)
[2022-02-06 06:54] LABS: African American GFR (CKD) >90 (>60 ml/min/1.73 sqM); Anion Gap 7 mmol/L; Blood Urea Nitrogen 12 mg/dL (7-17); Calcium 8.1 mg/dL (8.4-10.2); Carbon Dioxide 22 mmol/L (22-30); Chloride 111 mmol/L (98-107); Glucose 97 mg/dL (74-99); Non-African American GFR(CKD) 84 (>60 ml/min/1.73 sqM); Potassium 3.9 mmol/L (3.5-5.1); Sodium 140 mmol/L (137-145)
[2022-02-06 07:32] LABS: Band Neutrophils % 1 %; Basophils # (M) 0.16 k/uL (0-0.2); Eosinophils # (M) 0.31 k/uL (0-0.7); Lymphocytes # (M) 1.09 k/uL (1.0-4.8); Metamyelocytes # (M) 0.16 k/uL (0); Metamyelocytes % 1 %; Monocytes # (M) 0.78 k/uL (0-1.0); Myelocytes # (M) 0.16 k/uL (0); Myelocytes % 1 %; Neutrophils % (M) 84 %; Nucleated Red Blood Cells 0 /100 WBC (0-0); Total Cells Counted 200; Toxic Granulation Present
[2022-02-06] MEDS: ASPIRIN 81 MG PO SCH (08:27)
[2022-02-06] MEDS: PANTOPRAZOLE 40 MG TABLET PO SCH ×2 (08:27→17:36)
[2022-02-06] MEDS: DICYCLOMINE 10 MG CAP PO SCH ×3 (08:28→19:42)
[2022-02-06] MEDS: allopurinoL 100 MG TAB PO SCH (08:28)
[2022-02-06] MEDS: METOPROLOL TARTRATE 50 MG TAB PO SCH ×2 (08:28→19:41)
[2022-02-06] MEDS: AMIODARONE 200 MG TAB PO SCH (08:28)
[2022-02-06] MEDS: polyethylene glycoL 3350 17 GM POWD.PACK PO SCH (08:34)
--- NOTE | 2022-02-06 10:43 | P.PN ---
Progress Note - Text Progress Note Date: 02/06/22 This is a very pleasant 76-year-old patient of Dr. Wray. Chronic stable medical conditions include esophagitis, peptic ulcer disease, chronic essential hypertension, primary osteoarthritis of multiple joints bilateral, depression, hypothyroidism, esophageal dysmotility, anxiety not otherwise specified,, esophageal constriction with repeated dilatation.- followed at [facility] for the same. December 09/2022 underwent left proximal femur open reduction internal fixation with IM thu. Atrial fibrillation not on anticoagulation because of previous GI bleeds The patient was discharged to [facility] postoperatively on 12/16 and was subsequently seen again in the emergency room on 12/27 and admitted for multiple complaints including weakness and was diagnosed with severe acute kidney injury. The patient was again discharged to [facility] on 01/02 and reports that she had returned home one week ago. She reports that over the past 4-5 days, she has developed gradually worsening left hip pain. Reports she continues to be nonweightbearing of the left hip due to her pain which 10 out of 10 at maximal intensity, constant, exacerbated with any movement, with no alleviating factors. She also reports a left lower extremities swelling ongoing for the past few days as well as a right flank and right lower abdominal discomfort which she reports is pleuritic with radiation to the back. We'll also reports fever at home with T-max 103 measured 2 days ago which came down to 101 yesterday as per the patient. She denied urinary complaints, cough, chest discomfort, or diarrhea. In the emergency room, the left hip with pelvis x-ray revealed no evidence of acute pathologies with expected postsurgical changes. Due to downtime, all initial testing can be found in the paper chart. Vital signs upon presentation to the emergency room or BP 121/63, pulse 72, temperature 98.1, and SpO2 97% on room air. Laboratory evaluation revealed sodium 132, potassium 3.0, chloride 89, CO2 30, BUN 67 creatinine 1.15, calcium 8.6, total bilirubin 0.5, AST 47, ALT 30, lipase 59, magnesium 2.1, glucose 119. COVID-19 testing was negative. Troponin I was 0.015. 02/04/2022: Assumed care of the patient from [facility] today. Computed tomography scan had shown subtle fluid collection 2.6 x 1.2 cm anterior to the proximal LAD expected the distal fracture fragment. Also possible hematoma and the rectus femoris. Concerned about this being infected. Interventional radiology consulted. Patient also being followed by vascular surgery and ID. Patient has decreased appetite. Does not like hospital food. On IV ceftriaxone and vancomycin. 02/05/2022: Sitting up in a chair. Left thigh pain. Pending I&D by interventional radiology tomorrow. On IV ceftriaxone and vancomycin. Oral intake eating some. 02/06/2022: Laying in bed. Tired. Does not like hospital food. Drinking or and showed. Ending ID by interventional radiology. IV ceftriaxone and vancomycin. Active Medications Hydrocodone Bitart/Acetaminophen (Hydrocodone/Apap 5-325mg 1 Each Tab) 1 each PO Q6HR PRN PRN Reason: Pain Last Admin: 02/06/22 08:27 Dose: 1 each Albuterol Sulfate (Albuterol Nebulized 2.5 Mg/3 Ml) 2.5 mg INHALATION RT-Q4H PRN PRN Reason: Shortness Of Breath Allopurinol (Allopurinol 100 Mg Tab) 50 mg PO DAILY [facility] Last Admin: 02/06/22 08:28 Dose: 50 mg Amiodarone HCl (Amiodarone 200 Mg Tab) 200 mg PO DAILY [facility] Last Admin: 02/06/22 08:28 Dose: 200 mg Amitriptyline HCl (Amitriptyline Hcl 25 Mg Tab) 25 mg PO HS [facility] Last Admin: 02/05/22 19:58 Dose: 25 mg Aspirin (Aspirin 81 Mg) 81 mg PO DAILY [facility] Last Admin: 02/06/22 08:27 Dose: 81 mg Calcitriol (Calcitriol 0.25 Mcg Cap) 0.25 mcg PO FR [facility] Dicyclomine HCl (Dicyclomine 10 Mg Cap) 10 mg PO TID [facility] Last Admin: 02/06/22 08:28 Dose: Not Given Enoxaparin Sodium (Enoxaparin 40 Mg/0.4 Ml Syringe) 40 mg SQ DAILY [facility] Hydroxyzine HCl (Hydroxyzine Hcl 25 Mg Tab) 25 mg PO Q6H PRN PRN Reason: Itching Ceftriaxone Sodium 2 gm/ (Sodium Chloride) 50 mls @ 100 mls/hr IVPB Q24HR [facility]; Protocol Last Admin: 02/06/22 08:38 Dose: 100 mls/hr Sodium Chloride (Saline 0.9%) 1,000 mls @ 130 mls/hr IV .Q7H42M [facility] Last Admin: 02/06/22 08:34 Dose: Not Given Vancomycin HCl 750 mg/ Sodium (Chloride) 250 mls @ 125 mls/hr IVPB Q24H [facility] Last Admin: 02/05/22 12:10 Dose: 125 mls/hr Lactobacillus Acidoph/Bulgaricus (Lactobacillus Acidoph & Bulgar 1 Each Packet) 1 each PO DAILY@1700 [facility] Last Admin: 02/05/22 16:13 Dose: 1 each Levothyroxine Sodium (Levothyroxine 100 Mcg Tab) 100 mcg PO DAILY@0600 [facility] Last Admin: 02/06/22 05:44 Dose: 100 mcg Loratadine (Loratadine 10 Mg Tab) 5 mg PO BID PRN PRN Reason: Itching Metoprolol Tartrate (Metoprolol Tartrate 50 Mg Tab) 50 mg PO BID [facility] Last Admin: 02/06/22 08:28 Dose: 50 mg Miscellaneous Information (Vancomycin Trough Due 1 Each Misc) 0 each MISCELLANE DIRECTED ONE Stop: 02/06/22 11:01 Naloxone HCl (Naloxone 0.4 Mg/Ml 1 Ml Vial) 0.2 mg IV Q2M PRN PRN Reason: Opioid Reversal Ondansetron HCl (Ondansetron 4 Mg/2 Ml Vial) 4 mg IVP Q6H PRN PRN Reason: Nausea Last Admin: 02/03/22 12:07 Dose: 4 mg Pantoprazole Sodium (Pantoprazole 40 Mg Tablet) 40 mg PO BID@0800,1700 [facility] Last Admin: 02/06/22 08:27 Dose: 40 mg Polyethylene Glycol (Polyethylene Glycol 3350 17 Gm Powd.Pack) 17 gm PO DAILY [facility] Last Admin: 02/06/22 08:34 Dose: Not Given Past medical history to include: fibromyalgia, GERD, GI bleed, hypertension, osteoarthritis, hypothyroid, pacemaker for tachybradycardia syndrome, paroxysmal atrial flutter fibrillation, severe osteoporosis, esophageal stricture with dilatation, esophagitis Past surgical history to include: Appendectomy, cardiac ablation, ear surgery, pacemaker, or on her fourth left lower lobe, esophageal dilatation, pacemaker, cardiac ablation, Social history: Does not smoke or drink alcohol. Lives alone. Physical examination: VITAL SIGNS: 98.6, 83, 16, 150/71, 98% room air GENERAL: Resting in bed, awake tired EYES: Pupils equal. Conjunctiva pale. HEENT: External appearance of nose and ears normal, oral cavity grossly normal. NECK: JVD not raised; masses not palpable. HEART: The second sounds normal, no edema. LUNGS: Respiratory rate normal; clear to auscultation. ABDOMEN: Soft, , nontender, liver spleen not palpable, no masses palpable. PSYCH: [Alert and oriented x3; mood and affect anxious MUSCULOSKELETAL: Evidence of OA especially in the hands and knees . Slight swelling in the left hip area INVESTIGATIONS, reviewed in the clinical context: February 06: WBC 15.6 hemoglobin 8.3 potassium 3.9 creatinine 0.7 to February 04: White count 16.4 hemoglobin 7.4 platelets 386 potassium 3.6 BUN 36 creatinine 1.1 CRP 22.3 COVID 19: Not detected Admission labs: White count 17.1 hemoglobin 8.1 percussion 3 BUN 67 creatinine 1.15 Venous Doppler: Negative for DVT left leg. CT scans left hip: Subtle 2.6 x 1.2 cm fluid collection anterior to the proximal aspect of the distal fracture fragment on MH. Also persistent lucency along the posterior aspect of the greater trochanter. Chronic malalignment of the fracture fragments. There is an elongated heterogenous collection measuring 15.8 x 3.7 x 2.3 cm pushing up on the rectus femoris and down into the underlying vastus. Possible hematoma Assessment and plan: -Left sided: elongated heterogenous collection measuring 15.8 x 3.7 x 2.3 cm pushing up on the rectus femoris and down into the underlying vastus. Possible hematoma. Could be infected: Slow to respond IV vancomycin, IV ceftriaxone. Intervention radiology IND pending -Paroxysmal atrial flutter film fibrillation with a prior history of ablation, and atrial flutter Amiodarone. Lopressor 50 mg twice a day -Chronic esophagitis Protonix 40 mg twice a day -Macrocytic anemia Check B12 folate. Iron studies. -Essential hypertension Lopressor 50 mg twice a day -Primary osteoarthritis Pain medications -Hypothyroid Synthroid -Esophageal dysmotility -Anxiety but otherwise specified Xanax when necessary -Chronic esophageal constriction with repeated dilatations -Pacemaker for tachybradycardia syndrome. -Mild protein calorie malnutrition from decreased oral intake Ensure IV ceftriaxone, vancomycin. Intervention radiology ID pending, hopefully today.. Other medications to continue. Discussed with patient.
[2022-02-06] MEDS ORDERED: VANCOMYCIN TROUGH DUE 1 EACH MISC MISCELLANE ONE (11:00)
[2022-02-06] MEDS: VANCOMYCIN 750 MG in SODIUM CHLORIDE 0.9% 250 ML IVPB SCH (11:55)
[2022-02-06 12:08] LABS: Prothrombin Time 10.5 sec (9.0-12.0)
[2022-02-06 14:31] LABS: % Iron Saturation 6.97 (12.00-45.00); Iron 12 ug/dL (50-170); Total Iron Binding Capacity 171 ug/dL (228-460)
--- NOTE | 2022-02-06 16:01 | US ---
EXAMINATION TYPE: US guided asp/inj major joint DATE OF EXAM: 02/06/2022 HISTORY: Aspiration of left proximal thigh both anteriorly and laterally. FINDINGS: Maximal barrier technique was utilized. Hand hygiene achieved with soap and water and alco hol-based hand rub. The skin overlying a suitable path to the patient's abnormality as described on C T along the anterior aspect of the proximal left lower extremity was localized with ultrasound and th e overlying skin prepped and draped. Ultrasound was utilized with sterile technique. Lidocaine was used for local anesthesia. A skin sharri was made with a scalpel. An 21-gauge needle was advanced und er direct ultrasound guidance and attempted aspiration obtained no fluid, spot of the old blood only. Attention was then directed to the patient's lateral collection at the level the proximal lower ext remity from the left and using similar technique the overlying skin was prepped. Lidocaine was used f or local anesthesia. An 18-gauge needle was advanced and approximately 10 cc of serosanguineous type fluid were aspirated submitted for microbiology analysis.Following the procedure, hemostasis achieved and the patient is discharged in stable condition without complication. IMPRESSION:STATUS POST ULTRASOUND GUIDED ASPIRATION OF THE PROXIMAL LEFT LOWER EXTREMITY DESCRIBED , [address] AND ULTRASOUND ABNORMALITIES, PATHOLOGY IS PENDING. THIS PROCEDURE IS PERFORMED BY T HE UNDERSIGNED. Anterior collection likely represents hematoma. Possible seroma laterally.
[2022-02-06] MEDS: ENOXAPARIN 40 MG/0.4 ML SYRINGE SQ SCH (17:36)
[2022-02-06] MEDS: LACTOBACILLUS ACIDOPH & BULGAR 1 EACH PACKET PO SCH (17:36)
[2022-02-06] MEDS: AMITRIPTYLINE HCL 25 MG TAB PO SCH (19:41)
[2022-02-07] MEDS: VANCOMYCIN 750 MG in SODIUM CHLORIDE 0.9% 250 ML IVPB SCH ×3 (00:45→23:40)
[2022-02-07] MEDS: SODIUM CHLORIDE 0.9% 1,000 ML IV SCH ×4 (00:55→23:05)
[2022-02-07] MEDS: HYDROcodone/APAP 5-325MG 1 EACH TAB PO PRN ×4 (02:20→21:13)
[2022-02-07] MEDS: LEVOTHYROXINE 100 MCG TAB PO SCH (05:47)
--- NOTE | 2022-02-07 08:46 | P.PN ---
Subjective Progress Note Date: 02/05/22 Principal diagnosis: Fever and possible infection of left hip surgical site Patient is a 76-year-old female who recently did have a fall with the fracture to the left femur in this patient who is status post surgical repair now presenting to the hospital with a fever pain to the left hip site abdominal CT concern for possible fluid collection with a question of hematoma versus abscess. On today's evaluation and that is 02/05/2022, the patient remains to be afebrile, the patient is breathing comfortably on room air, the patient pain to the left hip is currently controlled, the patient denies chest pain shortness of breath or cough no nausea no vomiting no abdominal pain no diarrhea Objective - Vital Signs Vital signs: Vital Signs Temp 98.4 F 02/05/22 08:00 Pulse 62 02/05/22 08:00 Resp 17 02/05/22 08:00 BP 105/63 02/05/22 08:00 Pulse Ox 93 L 02/05/22 08:00 FiO2 Intake & Output 02/04/22 02/05/22 02/05/22 18:59 06:59 18:59 Intake Total 200 Balance 200 Intake: Oral 200 Other: Voiding Method Bedside Commode # Voids 1 2 - Exam GENERAL DESCRIPTION: An elderly female lying in bed in no distress RESPIRATORY SYSTEM: Unlabored breathing , decreased breath sounds at bases HEART: S1 S2 regular rate and rhythm , ABDOMEN: Soft , no tenderness EXTREMITIES: No edema feet - Labs CBC & Chem 7: 02/06/22 05:39 02/06/22 05:39 Labs: Abnormal Lab Results - Last 24 Hours (Table) 02/04/22 02/04/22 Range/Units 07:25 07:25 WBC 16.48 H (4.50-10.00) X 10*3/uL RBC 2.21 L (4.10-5.20) X 10*6/uL Hgb 7.4 L (12.0-15.0) g/dL Hct 23.5 L (37.2-46.3) % MCV 106.3 H (80.0-97.0) fL MCH 33.5 H (27.0-32.0) pg MCHC 31.5 L (32.0-37.0) g/dL RDW 18.2 H (11.5-14.5) % Absolute Nucleated RBC 0.02 H (0.00-0.00) X 10*3/uL NRBC/100 WBC Diff 0.1 H (0.0-0.0) /100 WBCS ESR 47 H (0-30) mm/Hr Carbon Dioxide 28.1 H (20.0-27.5) mmol/L Anion Gap 9.80 L (10.00-18.00) mmol/L BUN 36.0 H (9.0-27.0) mg/dL Est GFR (CKD-EPI)AfAm 55.4 L (60.0-200.0) Est GFR (CKD-EPI)NonAf 47.8 L (60.0-200.0) BUN/Creatinine Ratio 31.86 H (12.00-20.00) Ratio Glucose 114 H (70-110) mg/dL Calcium 8.2 L (8.7-10.3) mg/dL C-Reactive Protein 22.30 H (0.00-0.80) mg/dL Microbiology - Last 24 Hours (Table) 02/03/22 01:30 Blood Culture - Preliminary Blood No Growth after 48 hours 02/03/22 01:15 Blood Culture - Preliminary Blood No Growth after 48 hours 02/03/22 12:41 Blood Culture - Preliminary Blood No Growth after 24 hours 02/03/22 06:06 Urine Culture - Preliminary Urine,Voided Gram Neg Bacilli Assessment and Plan (1) Abscess of left hip Current Visit: Yes Status: Acute Code(s): L02.416 - CUTANEOUS ABSCESS OF LEFT LOWER LIMB SNOMED Code(s): 526176 (2) Sepsis Current Visit: Yes Status: Acute Code(s): A41.9 - SEPSIS, UNSPECIFIED ORGANISM SNOMED Code(s): 57563327 Plan: 1patient present to hospital with sepsis in this patient who did have a fever elevated white count tachycardia source is possible left hip surgical site infection the question of possible infected hematoma versus an abscess and likely need to cover for the MRSA to be the likely pathogen. 2we are still waiting for IR consult for drainage of this fluid collection which should be sent for gram stain and culture. 3patient fever has resolved blood cultures have been negative so far, patient to continue with the vancomycin and Rocephin while waiting for the culture to finalize. Time with Patient: Less than 30
[2022-02-07] MEDS: ENOXAPARIN 40 MG/0.4 ML SYRINGE SQ SCH (08:48)
--- NOTE | 2022-02-07 08:48 | P.PN ---
Subjective Progress Note Date: 02/06/22 Principal diagnosis: Fever and possible infection of left hip surgical site Patient is a 76-year-old female who recently did have a fall with the fracture to the left femur in this patient who is status post surgical repair now presenting to the hospital with a fever pain to the left hip site abdominal CT concern for possible fluid collection with a question of hematoma versus abscess. Patient is status post iron drainage of the fluid collection on 02/06/2022 On today's evaluation and that is 02/06/2022, the patient remains to be afebrile, the patient is breathing comfortably on room air, the patient denies any worsening pain to the left hip, the patient denies chest pain shortness of breath or cough , the patient denies nausea no vomiting no abdominal pain no diarrhea Objective - Vital Signs Vital signs: Vital Signs Temp 98.6 F 02/06/22 07:22 Pulse 62 02/06/22 15:30 Resp 16 02/06/22 15:30 BP 120/68 02/06/22 15:30 Pulse Ox 96 02/06/22 15:30 FiO2 Intake & Output 02/05/22 02/06/22 02/06/22 18:59 06:59 18:59 Intake Total 237 Balance 237 Intake: Oral 237 Other: Voiding Method Bedside Commode # Voids 1 2 - Exam GENERAL DESCRIPTION: An elderly female lying in bed in no distress RESPIRATORY SYSTEM: Unlabored breathing , decreased breath sounds at bases HEART: S1 S2 regular rate and rhythm , ABDOMEN: Soft , no tenderness EXTREMITIES: No edema feet - Labs CBC & Chem 7: 02/06/22 05:39 02/06/22 05:39 Labs: Abnormal Lab Results - Last 24 Hours (Table) 02/04/22 02/06/22 02/06/22 Range/Units 07:25 05:39 05:39 WBC 15.6 H (3.8-10.6) k/uL RBC 2.56 L (3.80-5.40) m/uL Hgb 8.3 L (11.4-16.0) gm/dL Hct 27.8 L (34.0-46.0) % MCV 108.6 H D (80.0-100.0) fL MCHC 30.0 L (31.0-37.0) g/dL RDW 16.8 H (11.5-15.5) % Plt Count 525 H (150-450) k/uL Neutrophils # (Manual) 13.20 H (1.3-7.7) k/uL Metamyelocytes # (Man) 0.16 H (0) k/uL Myelocytes # (Manual) 0.16 H (0) k/uL Macrocytosis Marked A Chloride 111 H (98-107) mmol/L Calcium 8.1 L (8.4-10.2) mg/dL Iron 12 L (50-170) ug/dL TIBC 171 L (228-460) ug/dL % Saturation 6.97 L (12.00-45.00) Transferrin 122.0 L (204.0-354.0) mg/dL Ferritin 307.0 H (10.0-291.0) ng/mL Microbiology - Last 24 Hours (Table) 02/03/22 12:41 Blood Culture - Preliminary Blood No Growth after 72 hours 02/03/22 01:30 Blood Culture - Preliminary Blood No Growth after 72 hours 02/03/22 01:15 Blood Culture - Preliminary Blood No Growth after 72 hours Assessment and Plan (1) Abscess of left hip Current Visit: Yes Status: Acute Code(s): L02.416 - CUTANEOUS ABSCESS OF LEFT LOWER LIMB SNOMED Code(s): 339679 (2) Sepsis Current Visit: Yes Status: Acute Code(s): A41.9 - SEPSIS, UNSPECIFIED ORGANISM SNOMED Code(s): 68173545 Plan: 1patient present to hospital with sepsis in this patient who did have a fever elevated white count tachycardia source is possible left hip surgical site infection the question of possible infected hematoma versus an abscess and likely need to cover for the MRSA to be the likely pathogen. 2the patient is status post IR drainage of this fluid collection which has been sent for culture currently pending 3patient urine culture growing Klebsiella and is covered with the Rocephin 4-continue patient on vancomycin while waiting for the drainage fluid cultures to finalize Time with Patient: Less than 30
[2022-02-07] MEDS: allopurinoL 100 MG TAB PO SCH (08:49)
[2022-02-07] MEDS: DICYCLOMINE 10 MG CAP PO SCH ×3 (08:49→21:14)
[2022-02-07] MEDS: AMIODARONE 200 MG TAB PO SCH (08:49)
[2022-02-07] MEDS: METOPROLOL TARTRATE 50 MG TAB PO SCH ×2 (08:49→21:13)
[2022-02-07] MEDS: polyethylene glycoL 3350 17 GM POWD.PACK PO SCH (08:49)
[2022-02-07] MEDS: ASPIRIN 81 MG PO SCH (08:49)
[2022-02-07] MEDS: PANTOPRAZOLE 40 MG TABLET PO SCH ×2 (08:49→16:49)
[2022-02-07 09:04] LABS: African American GFR (CKD) 98.9 (60.0-200.0); Non-African American GFR(CKD) 85.4 (60.0-200.0)
--- NOTE | 2022-02-07 11:02 | CDI ---
Documentation Clarification Form Date: 02/07/2022 10:41:42 AM From: Jil Lackey CCS, CCDS Admit Date: 02/03/2022 11:24:00 AM Patient Name: Mavis Marquez Visit Number: [id number] Discharge Date: ATTENTION: The Clinical Documentation Specialists (CDI) and [facility] Coding Staff appreciate your assistance in clarifying documentation. Please respond to the clarification below the line at the bottom and electronically sign. The CDI & [facility] Coding staff will review the response and follow-up if needed. Please note: Queries are made part of the Legal Health Record. If you have any questions, please contact the author of this message via ITS. Dr. Rich Wong: The patient presented with the following clinical indicators. Additional clarification regarding the etiology/cause of the clinical indicators is requested. Per the 02/06 Infectious Disease Progress Note: Abscess of left hip, Sepsis. Presented with fever, elevated WBC, tachycardia, possible source is left hip surgical site infection and question possible infected hematoma vs an abscess, likely MRSA. History/Risk Factors per the 02/03 H/P: Atrial Fibrillation, Hypertension, Peptic Ulcer Disease, Esophageal Dysmotility, Recent Left Proximal Femoral Fracture status post ORIF 12/09/21. Clinical Indicators: Presented from home with left lower extremity swelling for a few days, right flank & right lower abdominal discomfort, pleuritic with radiation to the back. Fever at home, T max 103. 02/03 H/P Assessment & Plan: Left hip pain, obtain CT, Orthopedic Surgery Consult and Pain control. Left lower extremity edema: obtain doppler. Hypokalemia: Replace & monitor. Right flank pain w/fever: follow up UA. 02/03 Orthopedic Spine Consult: Status post 2 months Left Hip ORIF for Comminuted Subtrochanteric Femur Facture due to a fall, Continued left hip pain with limited mobility at her left lower extremity due to her injury. No superficial evidence of infection at the left hip. Positive fevers. Suspicious urinalysis for infection. 02/03 VS: T 97.8, 101.3; P 57, R 18 - 22, BP 118/59, PO 96 RA - 93 RA, BMI: 19.6 02/03 LAB: WBC 17.1, RBC 2.47, Hgb 8.1, Hct 25.0, Neutrophils 14.0, Monocytes 1.1. 02/03 UA: clear, Trace protein, Moderate Esterase, WBC 11. 02/03 Blood cultures x3: (preliminary): no growth @ 96 hrs. 02/03 Urine culture (final): Klebsiella pneumoniae. 02/06 Body Fluid & Anaerobic culture status post aspiration of left lower extremity: pending. Treatment 02/03: Blood cultures, Body fluid culture, Heparin 5,000 units sq q8H, IV Zofran 4 mg q6H/prn, IV Na Chl 500 mls @ 100 mls/hr q35M, IV Na Chl 1,000 mls # 130 mls/hr q7H, IV Vancomycin 750 mg 250 mls @ 125 mls/hr q24H. 02/04: IV Rocephin 50 mls @ 100 mls/hr q24H. 02/06: IV Vancomycin 250 mls @ 125 mls/hr q12H In your professional opinion, please clarify if these findings signify one of the following conditions: [ ] Sepsis POA [ ] Sepsis, Not POA [ ] Sepsis ruled out [ ] Other, please specify: [ ] Unable to determine Sepsis, POA _ (Template Last Reviewed: May 2020) OLYA
--- NOTE | 2022-02-07 12:22 | P.PN ---
Progress Note - Text Progress Note Date: 02/07/22 This is a very pleasant 76-year-old patient of Dr. Wray. Chronic stable medical conditions include esophagitis, peptic ulcer disease, chronic essential hypertension, primary osteoarthritis of multiple joints bilateral, depression, hypothyroidism, esophageal dysmotility, anxiety not otherwise specified,, esophageal constriction with repeated dilatation.- followed at [facility] for the same. December 09/2022 underwent left proximal femur open reduction internal fixation with IM thu. Atrial fibrillation not on anticoagulation because of previous GI bleeds The patient was discharged to [facility] postoperatively on 12/16 and was subsequently seen again in the emergency room on 12/27 and admitted for multiple complaints including weakness and was diagnosed with severe acute kidney injury. The patient was again discharged to [facility] on 01/02 and reports that she had returned home one week ago. She reports that over the past 4-5 days, she has developed gradually worsening left hip pain. Reports she continues to be nonweightbearing of the left hip due to her pain which 10 out of 10 at maximal intensity, constant, exacerbated with any movement, with no alleviating factors. She also reports a left lower extremities swelling ongoing for the past few days as well as a right flank and right lower abdominal discomfort which she reports is pleuritic with radiation to the back. We'll also reports fever at home with T-max 103 measured 2 days ago which came down to 101 yesterday as per the patient. She denied urinary complaints, cough, chest discomfort, or diarrhea. In the emergency room, the left hip with pelvis x-ray revealed no evidence of acute pathologies with expected postsurgical changes. Due to downtime, all initial testing can be found in the paper chart. Vital signs upon presentation to the emergency room or BP 121/63, pulse 72, temperature 98.1, and SpO2 97% on room air. Laboratory evaluation revealed sodium 132, potassium 3.0, chloride 89, CO2 30, BUN 67 creatinine 1.15, calcium 8.6, total bilirubin 0.5, AST 47, ALT 30, lipase 59, magnesium 2.1, glucose 119. COVID-19 testing was negative. Troponin I was 0.015. 02/04/2022: Assumed care of the patient from sound physicians today. Computed tomography scan had shown subtle fluid collection 2.6 x 1.2 cm anterior to the proximal LAD expected the distal fracture fragment. Also possible hematoma and the rectus femoris. Concerned about this being infected. Interventional radiology consulted. Patient also being followed by vascular surgery and ID. Patient has decreased appetite. Does not like hospital food. On IV ceftriaxone and vancomycin. 02/05/2022: Sitting up in a chair. Left thigh pain. Pending I&D by interventional radiology tomorrow. On IV ceftriaxone and vancomycin. Oral intake eating some. 02/06/2022: Laying in bed. Tired. Does not like hospital food. Drinking Ensure. Pending ID by interventional radiology. IV ceftriaxone and vancomycin. 02/07/2022: In bed. Tired. Had I&D done yesterday. Cultures pending. Currently on IV cefazolin and vancomycin. Some improvement in pain in his left leg. Active Medications Hydrocodone Bitart/Acetaminophen (Hydrocodone/Apap 5-325mg 1 Each Tab) 1 each PO Q6HR PRN PRN Reason: Pain Last Admin: 02/07/22 08:48 Dose: 1 each Albuterol Sulfate (Albuterol Nebulized 2.5 Mg/3 Ml) 2.5 mg INHALATION RT-Q4H PRN PRN Reason: Shortness Of Breath Allopurinol (Allopurinol 100 Mg Tab) 50 mg PO DAILY [facility] Last Admin: 02/07/22 08:49 Dose: 50 mg Amiodarone HCl (Amiodarone 200 Mg Tab) 200 mg PO DAILY [facility] Last Admin: 02/07/22 08:49 Dose: 200 mg Amitriptyline HCl (Amitriptyline Hcl 25 Mg Tab) 25 mg PO HS [facility] Last Admin: 02/06/22 19:41 Dose: 25 mg Aspirin (Aspirin 81 Mg) 81 mg PO DAILY [facility] Last Admin: 02/07/22 08:49 Dose: 81 mg Calcitriol (Calcitriol 0.25 Mcg Cap) 0.25 mcg PO FR [facility] Dicyclomine HCl (Dicyclomine 10 Mg Cap) 10 mg PO TID [facility] Last Admin: 02/07/22 08:49 Dose: Not Given Enoxaparin Sodium (Enoxaparin 40 Mg/0.4 Ml Syringe) 40 mg SQ DAILY [facility] Last Admin: 02/07/22 08:48 Dose: Not Given Hydroxyzine HCl (Hydroxyzine Hcl 25 Mg Tab) 25 mg PO Q6H PRN PRN Reason: Itching Ceftriaxone Sodium 2 gm/ (Sodium Chloride) 50 mls @ 100 mls/hr IVPB Q24HR [facility]; Protocol Last Admin: 02/07/22 08:50 Dose: 100 mls/hr Sodium Chloride (Saline 0.9%) 1,000 mls @ 130 mls/hr IV .Q7H42M [facility] Last Admin: 02/07/22 08:50 Dose: 130 mls/hr Vancomycin HCl 750 mg/ Sodium (Chloride) 250 mls @ 125 mls/hr IVPB Q12H [facility] Last Admin: 02/07/22 00:45 Dose: 125 mls/hr Lactobacillus Acidoph/Bulgaricus (Lactobacillus Acidoph & Bulgar 1 Each Packet) 1 each PO DAILY@1700 [facility] Last Admin: 02/06/22 17:36 Dose: Not Given Levothyroxine Sodium (Levothyroxine 100 Mcg Tab) 100 mcg PO DAILY@0600 [facility] Last Admin: 02/07/22 05:47 Dose: 100 mcg Loratadine (Loratadine 10 Mg Tab) 5 mg PO BID PRN PRN Reason: Itching Metoprolol Tartrate (Metoprolol Tartrate 50 Mg Tab) 50 mg PO BID [facility] Last Admin: 02/07/22 08:49 Dose: 50 mg Miscellaneous Information (Vancomycin Trough Due 1 Each Misc) 0 each MISCELLANE DIRECTED ONE Stop: 02/08/22 11:01 Naloxone HCl (Naloxone 0.4 Mg/Ml 1 Ml Vial) 0.2 mg IV Q2M PRN PRN Reason: Opioid Reversal Ondansetron HCl (Ondansetron 4 Mg/2 Ml Vial) 4 mg IVP Q6H PRN PRN Reason: Nausea Last Admin: 02/03/22 12:07 Dose: 4 mg Pantoprazole Sodium (Pantoprazole 40 Mg Tablet) 40 mg PO BID@0800,1700 [facility] Last Admin: 02/07/22 08:49 Dose: 40 mg Polyethylene Glycol (Polyethylene Glycol 3350 17 Gm Powd.Pack) 17 gm PO DAILY [facility] Last Admin: 02/07/22 08:49 Dose: Not Given Past medical history to include: fibromyalgia, GERD, GI bleed, hypertension, osteoarthritis, hypothyroid, pacemaker for tachybradycardia syndrome, paroxysmal atrial flutter fibrillation, severe osteoporosis, esophageal stricture with dilatation, esophagitis Past surgical history to include: Appendectomy, cardiac ablation, ear surgery, pacemaker, or on her fourth left lower lobe, esophageal dilatation, pacemaker, cardiac ablation, Social history: Does not smoke or drink alcohol. Lives alone. Physical examination: VITAL SIGNS: 98.2, 74, 22, 110/70, 94% room air GENERAL: Resting in bed, awake tired EYES: Pupils equal. Conjunctiva pale. HEENT: External appearance of nose and ears normal, oral cavity grossly normal. NECK: JVD not raised; masses not palpable. HEART: The second sounds normal, no edema. LUNGS: Respiratory rate normal; clear to auscultation. ABDOMEN: Soft, , nontender, liver spleen not palpable, no masses palpable. PSYCH: [Alert and oriented x3; mood and affect anxious MUSCULOSKELETAL: Evidence of OA especially in the hands and knees . Slight swelling in the left hip area INVESTIGATIONS, reviewed in the clinical context: I had an 12 TIBC 171% saturation 6.97 ferritin 307 B12 786 TSH 2.8 February 06: WBC 15.6 hemoglobin 8.3 potassium 3.9 creatinine 0.7 to February 04: White count 16.4 hemoglobin 7.4 platelets 386 potassium 3.6 BUN 36 creatinine 1.1 CRP 22.3 COVID 19: Not detected Admission labs: White count 17.1 hemoglobin 8.1 percussion 3 BUN 67 creatinine 1.15 Venous Doppler: Negative for DVT left leg. CT scans left hip: Subtle 2.6 x 1.2 cm fluid collection anterior to the proximal aspect of the distal fracture fragment on MH. Also persistent lucency along the posterior aspect of the greater trochanter. Chronic malalignment of the fracture fragments. There is an reggie ngated heterogenous collection measuring 15.8 x 3.7 x 2.3 cm pushing up on the rectus femoris and down into the underlying vastus. Possible hematoma Assessment and plan: -Left sided: elongated heterogenous collection measuring 15.8 x 3.7 x 2.3 cm pushing up on the rectus femoris and down into the underlying vastus. Possible hematoma. Could be infected: Slow to respond IV vancomycin, IV ceftriaxone. Intervention radiology IND done on February 06. Culture pending -Paroxysmal atrial flutter film fibrillation with a prior history of ablation, and atrial flutter Amiodarone. Lopressor 50 mg twice a day -Chronic esophagitis Protonix 40 mg twice a day -Macrocytic anemia Check B12 folate. Iron studies. -Essential hypertension Lopressor 50 mg twice a day -Primary osteoarthritis Pain medications -Hypothyroid Synthroid -Iron deficiency anemia IV Ferrlecit -Esophageal dysmotility -Anxiety but otherwise specified Xanax when necessary -Chronic esophageal constriction with repeated dilatations -Pacemaker for tachybradycardia syndrome. -Mild protein calorie malnutrition from decreased oral intake Ensure IV ceftriaxone, vancomycin. Culture pending. Patient encouraged to be up in a chair. IV Ferrlecit
[2022-02-07] MEDS: SODIUM FERRIC GLUCONAT-SUCROSE 125 MG in SODIUM CHLORIDE 0.9% 100 ML IVPB SCH (14:11)
[2022-02-07] MEDS: LACTOBACILLUS ACIDOPH & BULGAR 1 EACH PACKET PO SCH (16:49)
[2022-02-07] MEDS: AMITRIPTYLINE HCL 25 MG TAB PO SCH (21:14)
[2022-02-08] MEDS: HYDROcodone/APAP 5-325MG 1 EACH TAB PO PRN ×4 (03:18→21:27)
[2022-02-08] MEDS: LEVOTHYROXINE 100 MCG TAB PO SCH (05:53)
[2022-02-08] MEDS: METOPROLOL TARTRATE 50 MG TAB PO SCH ×2 (08:53→21:27)
[2022-02-08] MEDS: allopurinoL 100 MG TAB PO SCH (08:53)
[2022-02-08] MEDS: PANTOPRAZOLE 40 MG TABLET PO SCH ×2 (08:54→15:46)
[2022-02-08] MEDS: SODIUM FERRIC GLUCONAT-SUCROSE 125 MG in SODIUM CHLORIDE 0.9% 100 ML IVPB SCH (08:54)
[2022-02-08] MEDS: ENOXAPARIN 40 MG/0.4 ML SYRINGE SQ SCH ×2 (08:54→09:04)
[2022-02-08] MEDS: AMIODARONE 200 MG TAB PO SCH (08:54)
[2022-02-08] MEDS: DICYCLOMINE 10 MG CAP PO SCH ×4 (08:54→21:27)
[2022-02-08] MEDS: ASPIRIN 81 MG PO SCH (08:54)
[2022-02-08] MEDS: polyethylene glycoL 3350 17 GM POWD.PACK PO SCH (08:57)
[2022-02-08] MEDS ORDERED: FUROSEMIDE 80 MG TAB PO SCH (09:00)
--- NOTE | 2022-02-08 09:05 | XR ---
EXAMINATION TYPE: XR chest 2V DATE OF EXAM: 02/08/2022 COMPARISON: 12/31/2021 TECHNIQUE: PA and lateral views submitted. HISTORY: Shortness of FINDINGS: There is a cardiac device bilateral infiltrate and pleural effusion coarsened interstitium. I atheros clerotic change aorta. Underlying COPD compression deformity with previous vertebral plasty and degen erative changes noted. IMPRESSION: 1. COPD correlate for CHF.
[2022-02-08] MEDS: SODIUM CHLORIDE 0.9% 1,000 ML IV SCH (10:34)
[2022-02-08 10:48] LABS: Anisocytosis Slight; Basophils # (A) 0.1 k/uL (0-0.2); Basophils % (A) 1 %; Eosinophils # (A) 0.6 k/uL (0-0.7); Eosinophils % (A) 5 %; HCT 34.5 % (34.0-46.0); HGB 10.1 gm/dL (11.4-16.0); Hypochromasia Marked; Lymphocytes # (A) 1.1 k/uL (1.0-4.8); Lymphocytes % (A) 9 %; MCH 31.8 pg (25.0-35.0); MCHC 29.2 g/dL (31.0-37.0); Macrocytosis Marked; Mean Platelet Volume 7.8; Monocytes # (A) 0.3 k/uL (0-1.0); Monocytes % (A) 2 %; Neutrophils # (A) 9.9 k/uL (1.3-7.7); Neutrophils % (A) 81 %; Platelet Count 722 k/uL (150-450); RBC 3.17 m/uL (3.80-5.40); RDW 16.8 % (11.5-15.5); WBC 12.1 k/uL (3.8-10.6)
[2022-02-08 10:58] LABS: African American GFR (CKD) >90 (>60 ml/min/1.73 sqM); Anion Gap 9 mmol/L; Blood Urea Nitrogen 5 mg/dL (7-17); Calcium 8.7 mg/dL (8.4-10.2); Carbon Dioxide 25 mmol/L (22-30); Chloride 109 mmol/L (98-107); Glucose 87 mg/dL (74-99); Non-African American GFR(CKD) 89 (>60 ml/min/1.73 sqM); Potassium 3.7 mmol/L (3.5-5.1); Sodium 143 mmol/L (137-145)
[2022-02-08] MEDS ORDERED: VANCOMYCIN TROUGH DUE 1 EACH MISC MISCELLANE ONE (11:00)
--- NOTE | 2022-02-08 12:45 | P.PN ---
Progress Note - Text Progress Note Date: 02/08/22 This is a very pleasant 76-year-old patient of Dr. Wray. Chronic stable medical conditions include esophagitis, peptic ulcer disease, chronic essential hypertension, primary osteoarthritis of multiple joints bilateral, depression, hypothyroidism, esophageal dysmotility, anxiety not otherwise specified,, esophageal constriction with repeated dilatation.- followed at [facility] for the same. December 09/2022 underwent left proximal femur open reduction internal fixation with IM thu. Atrial fibrillation not on anticoagulation because of previous GI bleeds The patient was discharged to [facility] postoperatively on 12/16 and was subsequently seen again in the emergency room on 12/27 and admitted for multiple complaints including weakness and was diagnosed with severe acute kidney injury. The patient was again discharged to [facility] on 01/02 and reports that she had returned home one week ago. She reports that over the past 4-5 days, she has developed gradually worsening left hip pain. Reports she continues to be nonweightbearing of the left hip due to her pain which 10 out of 10 at maximal intensity, constant, exacerbated with any movement, with no alleviating factors. She also reports a left lower extremities swelling ongoing for the past few days as well as a right flank and right lower abdominal discomfort which she reports is pleuritic with radiation to the back. We'll also reports fever at home with T-max 103 measured 2 days ago which came down to 101 yesterday as per the patient. She denied urinary complaints, cough, chest discomfort, or diarrhea. In the emergency room, the left hip with pelvis x-ray revealed no evidence of acute pathologies with expected postsurgical changes. Due to downtime, all initial testing can be found in the paper chart. Vital signs upon presentation to the emergency room or BP 121/63, pulse 72, temperature 98.1, and SpO2 97% on room air. Laboratory evaluation revealed sodium 132, potassium 3.0, chloride 89, CO2 30, BUN 67 creatinine 1.15, calcium 8.6, total bilirubin 0.5, AST 47, ALT 30, lipase 59, magnesium 2.1, glucose 119. COVID-19 testing was negative. Troponin I was 0.015. 02/04/2022: Assumed care of the patient from sound physicians today. Computed tomography scan had shown subtle fluid collection 2.6 x 1.2 cm anterior to the proximal LAD expected the distal fracture fragment. Also possible hematoma and the rectus femoris. Concerned about this being infected. Interventional radiology consulted. Patient also being followed by vascular surgery and ID. Patient has decreased appetite. Does not like hospital food. On IV ceftriaxone and vancomycin. 02/05/2022: Sitting up in a chair. Left thigh pain. Pending I&D by interventional radiology tomorrow. On IV ceftriaxone and vancomycin. Oral intake eating some. 02/06/2022: Laying in bed. Tired. Does not like hospital food. Drinking Ensure. Pending ID by interventional radiology. IV ceftriaxone and vancomycin. 02/07/2022: In bed. Tired. Had I&D done yesterday. Cultures pending. Currently on IV cefazolin and vancomycin. Some improvement in pain in his left leg. 02/08/2022: Patient short of breath. Increase leg edema. IV fluids cutback. Check stat x-rays reviewed shows pulmonary edema. Started on IV Lasix 60 mg every 8. On IV ceftriaxone. Getting IV Ferrlecit. Cultures is pending. On IV ceftriaxone and IV vancomycin. Active Medications Hydrocodone Bitart/Acetaminophen (Hydrocodone/Apap 5-325mg 1 Each Tab) 1 each PO Q6HR PRN PRN Reason: Pain Last Admin: 02/08/22 08:55 Dose: 1 each Albuterol Sulfate (Albuterol Nebulized 2.5 Mg/3 Ml) 2.5 mg INHALATION RT-Q4H PRN PRN Reason: Shortness Of Breath Last Admin: 02/08/22 07:01 Dose: 2.5 mg Allopurinol (Allopurinol 100 Mg Tab) 50 mg PO DAILY [facility] Last Admin: 02/08/22 08:53 Dose: 50 mg Amiodarone HCl (Amiodarone 200 Mg Tab) 200 mg PO DAILY [facility] Last Admin: 02/08/22 08:54 Dose: 200 mg Amitriptyline HCl (Amitriptyline Hcl 25 Mg Tab) 25 mg PO HS [facility] Last Admin: 02/07/22 21:14 Dose: 25 mg Aspirin (Aspirin 81 Mg) 81 mg PO DAILY [facility] Last Admin: 02/08/22 08:54 Dose: 81 mg Calcitriol (Calcitriol 0.25 Mcg Cap) 0.25 mcg PO FR [facility] Dicyclomine HCl (Dicyclomine 10 Mg Cap) 10 mg PO TID [facility] Last Admin: 02/08/22 08:57 Dose: Not Given Enoxaparin Sodium (Enoxaparin 40 Mg/0.4 Ml Syringe) 40 mg SQ DAILY [facility] Last Admin: 02/08/22 09:04 Dose: Not Given Furosemide (Furosemide 10 Mg/Ml 10 Ml Vial) 60 mg IV Q8HR [facility] Hydroxyzine HCl (Hydroxyzine Hcl 25 Mg Tab) 25 mg PO Q6H PRN PRN Reason: Itching Ceftriaxone Sodium 2 gm/ (Sodium Chloride) 50 mls @ 100 mls/hr IVPB Q24HR [facility]; Protocol Last Admin: 02/08/22 08:54 Dose: 100 mls/hr Vancomycin HCl 750 mg/ Sodium (Chloride) 250 mls @ 125 mls/hr IVPB Q12H [facility] Last Admin: 02/07/22 23:40 Dose: 125 mls/hr Ferric Sodium Gluconate 125 mg (/ Sodium Chloride) 110 mls @ 100 mls/hr IVPB DAILY [facility] Stop: 02/09/22 10:05 Last Admin: 02/08/22 08:54 Dose: 100 mls/hr Lactobacillus Acidoph/Bulgaricus (Lactobacillus Acidoph & Bulgar 1 Each Packet) 1 each PO DAILY@1700 [facility] Last Admin: 02/07/22 16:49 Dose: 1 each Levothyroxine Sodium (Levothyroxine 100 Mcg Tab) 100 mcg PO DAILY@0600 [facility] Last Admin: 02/08/22 05:53 Dose: 100 mcg Loratadine (Loratadine 10 Mg Tab) 5 mg PO BID PRN PRN Reason: Itching Metoprolol Tartrate (Metoprolol Tartrate 50 Mg Tab) 50 mg PO BID [facility] Last Admin: 02/08/22 08:53 Dose: 50 mg Naloxone HCl (Naloxone 0.4 Mg/Ml 1 Ml Vial) 0.2 mg IV Q2M PRN PRN Reason: Opioid Reversal Ondansetron HCl (Ondansetron 4 Mg/2 Ml Vial) 4 mg IVP Q6H PRN PRN Reason: Nausea Last Admin: 02/03/22 12:07 Dose: 4 mg Pantoprazole Sodium (Pantoprazole 40 Mg Tablet) 40 mg PO BID@0800,1700 [facility] Last Admin: 02/08/22 08:54 Dose: 40 mg Polyethylene Glycol (Polyethylene Glycol 3350 17 Gm Powd.Pack) 17 gm PO DAILY [facility] Last Admin: 02/08/22 08:57 Dose: Not Given Past medical history to include: fibromyalgia, GERD, GI bleed, hypertension, osteoarthritis, hypothyroid, pacemaker for tachybradycardia syndrome, paroxysmal atrial flutter fibrillation, severe osteoporosis, esophageal stricture with dilatation, esophagitis Past surgical history to include: Appendectomy, cardiac ablation, ear surgery, pacemaker, or on her fourth left lower lobe, esophageal dilatation, pacemaker, cardiac ablation, Social history: Does not smoke or drink alcohol. Lives alone. Physical examination: VITAL SIGNS: 94.7, 62, 20, 1 24 x 70, 97% on nasal cannula GENERAL: Up in a chair, tired EYES: Pupils equal. Conjunctiva pale. HEENT: External appearance of nose and ears normal, oral cavity grossly normal. NECK: JVD not raised; masses not palpable. HEART: First second sound normal, edema significant LUNGS: Respiratory rate increased; some basal crackles ABDOMEN: Soft, , nontender, liver spleen not palpable, no masses palpable. PSYCH: [Alert and oriented x3; mood and affect anxious MUSCULOSKELETAL: Evidence of OA especially in the hands and knees . Slight swelling in the left hip area INVESTIGATIONS, reviewed in the clinical context: February 08: WBC 12.1 hemoglobin 10.1-722 potassium 3.7 creatinine 0.63 Chest x-ray film [February 08] personally reviewed by me-pulmonary edema and pleural effusion I had an 12 TIBC 171% saturation 6.97 ferritin 307 B12 786 TSH 2.8 February 06: WBC 15.6 hemoglobin 8.3 potassium 3.9 creatinine 0.7 to February 04: White count 16.4 hemoglobin 7.4 platelets 386 potassium 3.6 BUN 36 creatinine 1.1 CRP 22.3 COVID 19: Not detected Admission labs: White count 17.1 hemoglobin 8.1 percussion 3 BUN 67 creatinine 1.15 Venous Doppler: Negative for DVT left leg. CT scans left hip: Subtle 2.6 x 1.2 cm fluid collection anterior to the proximal aspect of the distal fracture fragment on MH. Also persistent lucency along the posterior aspect of the greater trochanter. Chronic malalignment of the fracture fragments. There is an elongated heterogenous collection measuring 15.8 x 3.7 x 2.3 cm pushing up on the rectus femoris and down into the underlying vastus. Possible hematoma Assessment and plan: -Left sided: elongated heterogenous collection measuring 15.8 x 3.7 x 2.3 cm pushing up on the rectus femoris and down into the underlying vastus. Possible hematoma. Could be infected: Slow to respond IV vancomycin, IV ceftriaxone. Intervention radiology IND done on February 06. Culture pending -Acute congestive heart failure exacerbation.: New diagnosis IV Lasix 60 mg every 8. Sodium restriction 1800 mL a day. 2-D echo. Consult cardiology. -Paroxysmal atrial flutter film fibrillation with a prior history of ablation, and atrial flutter Amiodarone. Lopressor 50 mg twice a day -Chronic esophagitis Protonix 40 mg twice a day -Macrocytic anemia Check B12 folate. Iron studies. -Essential hypertension Lopressor 50 mg twice a day -Primary osteoarthritis Pain medications -Hypothyroid Synthroid -Iron deficiency anemia IV Ferrlecit -Esophageal dysmotility -Anxiety but otherwise specified Xanax when necessary -Chronic esophageal constriction with repeated dilatations -Pacemaker for tachybradycardia syndrome. -Mild protein calorie malnutrition from decreased oral intake Ensure IV Lasix 60 mg every 8. DC IV fluids. Continue IV antibiotics. Cultures pending. Fluid restriction. Francisco wrap. Discussed with patient.
[2022-02-08] MEDS: VANCOMYCIN 750 MG in SODIUM CHLORIDE 0.9% 250 ML IVPB SCH ×2 (13:21→23:05)
[2022-02-08] MEDS: FUROSEMIDE 10 MG/ML 10 ML VIAL IV SCH ×2 (15:46→23:05)
[2022-02-08] MEDS: LACTOBACILLUS ACIDOPH & BULGAR 1 EACH PACKET PO SCH (15:48)
[2022-02-08] MEDS: AMITRIPTYLINE HCL 25 MG TAB PO SCH (21:27)
[2022-02-08] MEDS ORDERED: MELATONIN 3 MG TABLET PO STA (22:34)
[2022-02-09] MEDS: HYDROcodone/APAP 5-325MG 1 EACH TAB PO PRN ×4 (03:40→21:22)
[2022-02-09] MEDS: LEVOTHYROXINE 100 MCG TAB PO SCH (05:35)
[2022-02-09 06:14] LABS: African American GFR (CKD) >90 (>60 ml/min/1.73 sqM); Anion Gap 9 mmol/L; Blood Urea Nitrogen 6 mg/dL (7-17); Calcium 8.4 mg/dL (8.4-10.2); Carbon Dioxide 27 mmol/L (22-30); Chloride 104 mmol/L (98-107); Glucose 100 mg/dL (74-99); Non-African American GFR(CKD) 89 (>60 ml/min/1.73 sqM); Potassium 3.6 mmol/L (3.5-5.1); Sodium 140 mmol/L (137-145)
--- NOTE | 2022-02-09 08:26 | P.PN ---
Subjective Progress Note Date: 02/07/22 Principal diagnosis: Fever and possible infection of left hip surgical site Patient is a 76-year-old female who recently did have a fall with the fracture to the left femur in this patient who is status post surgical repair now presenting to the hospital with a fever pain to the left hip site abdominal CT concern for possible fluid collection with a question of hematoma versus abscess. Patient is status post iron drainage of the fluid collection on 02/06/2022 On today's evaluation and that is 02/07/2022, the patient continues to be afebrile, the patient is breathing comfortably on room air, the patient pain to the left hip is currently controlled, the patient denies chest pain shortness of breath or cough , the patient denies nausea no vomiting no abdominal pain no diarrhea Objective - Vital Signs Vital signs: Vital Signs Temp 98.2 F 02/07/22 08:45 Pulse 74 02/07/22 08:45 Resp 22 02/07/22 08:45 BP 110/70 02/07/22 08:45 Pulse Ox 94 L 02/07/22 08:45 FiO2 Intake & Output 02/06/22 02/07/22 02/07/22 18:59 06:59 18:59 Other: Voiding Method Bedside Commode # Voids 1 1 - Exam GENERAL DESCRIPTION: An elderly female lying in bed in no distress RESPIRATORY SYSTEM: Unlabored breathing , decreased breath sounds at bases HEART: S1 S2 regular rate and rhythm , ABDOMEN: Soft , no tenderness EXTREMITIES: No edema feet - Labs CBC & Chem 7: 02/08/22 10:33 02/09/22 05:06 Labs: Abnormal Lab Results - Last 24 Hours (Table) 02/04/22 Range/Units 07:25 Iron 12 L (50-170) ug/dL TIBC 171 L (228-460) ug/dL % Saturation 6.97 L (12.00-45.00) Transferrin 122.0 L (204.0-354.0) mg/dL Ferritin 307.0 H (10.0-291.0) ng/mL Microbiology - Last 24 Hours (Table) 02/03/22 01:30 Blood Culture - Preliminary Blood No Growth after 96 hours 02/03/22 01:15 Blood Culture - Preliminary Blood No Growth after 96 hours 02/06/22 15:30 Gram Stain - Preliminary Aspirate Body Fluid Culture - Preliminary 02/06/22 15:30 Anaerobic Culture - Preliminary Hip - Left 02/03/22 12:41 Blood Culture - Preliminary Blood No Growth after 72 hours Assessment and Plan (1) Abscess of left hip Current Visit: Yes Status: Acute Code(s): L02.416 - CUTANEOUS ABSCESS OF LEFT LOWER LIMB SNOMED Code(s): 734536 (2) Sepsis Current Visit: Yes Status: Acute Code(s): A41.9 - SEPSIS, UNSPECIFIED ORGANISM SNOMED Code(s): 34111784 Plan: 1patient present to hospital with sepsis in this patient who did have a fever elevated white count tachycardia source is possible left hip surgical site inf ection the question of possible infected hematoma versus an abscess and likely need to cover for the MRSA to be the likely pathogen. 2the patient is status post IR drainage of this fluid collection which has been sent for culture currently pending 3patient urine culture growing Klebsiella and is covered with the Rocephin Patient seemed to have some clinical improvement with resolution of the fever and will continue with vancomycin while waiting for the drainage fluid cultures to finalize Time with Patient: Less than 30
--- NOTE | 2022-02-09 08:27 | P.PN ---
Subjective Progress Note Date: 02/08/22 Principal diagnosis: Fever and possible infection of left hip surgical site Patient is a 76-year-old female who recently did have a fall with the fracture to the left femur in this patient who is status post surgical repair now presenting to the hospital with a fever pain to the left hip site abdominal CT concern for possible fluid collection with a question of hematoma versus abscess. Patient is status post iron drainage of the fluid collection on 02/06/2022 On today's evaluation and that is 02/08/2022, the patient denies any fever or any chills, the patient is breathing comfortably on room air, the patient pain to the left hip is about the same per the patient today, the patient denies chest pain shortness of breath or cough , the patient denies nausea no vomiting no abdominal pain no diarrhea, no new symptoms Objective - Vital Signs Vital signs: Vital Signs Temp 98.1 F 02/08/22 08:26 Pulse 80 02/08/22 07:14 Resp 20 02/08/22 06:23 BP 124/70 02/08/22 06:23 Pulse Ox 97 02/08/22 07:00 FiO2 Intake & Output 02/07/22 02/08/22 02/08/22 18:59 06:59 18:59 Other: Voiding Method Bedside Commode # Voids 300 1 # Bowel Movements 1 - Exam GENERAL DESCRIPTION: An elderly female lying in bed in no distress RESPIRATORY SYSTEM: Unlabored breathing , decreased breath sounds at bases HEART: S1 S2 regular rate and rhythm , ABDOMEN: Soft , no tenderness EXTREMITIES: No edema feet - Labs CBC & Chem 7: 02/08/22 10:33 02/09/22 05:06 Labs: Microbiology - Last 24 Hours (Table) 02/03/22 01:30 Blood Culture - Preliminary Blood No Growth after 120 hours 02/03/22 01:15 Blood Culture - Preliminary Blood No Growth after 120 hours 02/06/22 15:30 Gram Stain - Preliminary Aspirate Body Fluid Culture - Preliminary 02/03/22 12:41 Blood Culture - Preliminary Blood No Growth after 96 hours Assessment and Plan (1) Abscess of left hip Current Visit: Yes Status: Acute Code(s): L02.416 - CUTANEOUS ABSCESS OF LEFT LOWER LIMB SNOMED Code(s): 296927 (2) Sepsis Current Visit: Yes Status: Acute Code(s): A41.9 - SEPSIS, UNSPECIFIED ORGANISM SNOMED Code(s): 00746894 Plan: 1patient present to hospital with sepsis in this patient who did have a fever elevated white count tachycardia source is possible left hip surgical site infection the question of possible infected hematoma versus an abscess and likely need to cover for the MRSA to be the likely pathogen. 2the patient is status post IR drainage of this fluid collection which has been sent for culture currently pending 3patient urine culture growing Klebsiella and is covered with the Rocephin 4Patient seemed to have some clinical improvement with resolution of the fever and white count is trending down, patient will continue with vancomycin while waiting for the drainage fluid cultures to finalize to determine her discharge antibiotics Time with Patient: Less than 30
[2022-02-09] MEDS: allopurinoL 100 MG TAB PO SCH (08:33)
[2022-02-09] MEDS: PANTOPRAZOLE 40 MG TABLET PO SCH ×2 (08:33→16:55)
[2022-02-09] MEDS: ASPIRIN 81 MG PO SCH (08:34)
[2022-02-09] MEDS: ENOXAPARIN 40 MG/0.4 ML SYRINGE SQ SCH (08:34)
[2022-02-09] MEDS: FUROSEMIDE 10 MG/ML 10 ML VIAL IV SCH (08:34)
[2022-02-09] MEDS: METOPROLOL TARTRATE 50 MG TAB PO SCH ×2 (08:34→21:23)
[2022-02-09] MEDS: DICYCLOMINE 10 MG CAP PO SCH ×3 (08:35→21:22)
[2022-02-09] MEDS: AMIODARONE 200 MG TAB PO SCH (08:35)
[2022-02-09] MEDS: SODIUM FERRIC GLUCONAT-SUCROSE 125 MG in SODIUM CHLORIDE 0.9% 100 ML IVPB SCH (08:36)
[2022-02-09] MEDS: polyethylene glycoL 3350 17 GM POWD.PACK PO SCH (08:36)
--- NOTE | 2022-02-09 11:02 | CA ---
Transthoracic Echo Report Name: Mavis Marquez Age: 76 Gender: F : 1945 Exam Date: 02/08/2022 14:22 Exam Location: [place] [facility] Ht (in): 61 Wt (lb): 103 Ordering Physician: Rich Wong MD Attending/Referring Phys: Stain Maker Kim Galicia RDCS Procedure CPT: Indications: chf Cardiac Hx: Pacemaker Technical Quality: Good Contrast 1: Total Dose (mL): Contrast 2: Total Dose (mL): MEASUREMENTS (Male / Female) Normal Values 2D ECHO LV Diastolic Diameter PLAX 3.9 cm 4.2 - 5.9 / 3.9 - 5.3 cm LV Systolic Diameter PLAX 2.9 cm IVS Diastolic Thickness 1.2 cm 0.6 - 1.0 / 0.6 - 0.9 cm LVPW Diastolic Thickness 1.0 cm 0.6 - 1.0 / 0.6 - 0.9 cm LV Relative Wall Thickness 0.6 RV Internal Dim ED PLAX 3.2 cm LA Systolic Diameter LX 3.9 cm 3.0 - 4.0 / 2.7 - 3.8 cm LA Volume 38.3 cm??? 18 - 58 / 22 - 52 cm??? M-MODE Aortic Root Diameter MM 2.9 cm MV E Point Septal Separation 0.3 cm AV Cusp Separation MM 2.2 cm DOPPLER AV Peak Velocity 130.6 cm/s AV Peak Gradient 6.8 mmHg AI Peak Velocity 387.5 cm/s AI Peak Gradient 60.1 mmHg AI Pressure Half Time 756.3 ms MV Area PHT 4.5 cm??? Mitral E Point Velocity 107.9 cm/s Mitral A Point Velocity 93.9 cm/s Mitral E to A Ratio 1.1 MV Deceleration Time 167.9 ms MV E' Velocity 7.8 cm/s Mitral E to MV E' Ratio 13.9 TR Peak Velocity 268.5 cm/s TR Peak Gradient 28.8 mmHg Right Ventricular Systolic Press 33.7 mmHg FINDINGS Left Ventricle Left ventricular ejection fraction is estimated at 55-60 %. Left ventricular cavity size normal. Mildly increased septal wall thickness. Mildly increased posterior wall thickness. Right Ventricle Normal right ventricular size and function. Right Atrium Normal right atrial size. Left Atrium Mildly increased left atrial diameter. No evidence for an atrial septal defect. Mitral Valve Structurally normal mitral valve. Mitral annular calcification. Mild mitral regurgitation. Aortic Valve Trileaflet aortic valve. Mild aortic regurgitation. Tricuspid Valve Moderate to severe tricuspid regurgitation. Pulmonic Valve Structurally normal pulmonic valve. Pericardium Normal pericardium. No pericardial effusion. Aorta Normal size aortic root and proximal ascending aorta. CONCLUSIONS Left ventricular ejection fraction 55-60% Mildly increased left ventricular wall thickness RVSP 33 Mild mitral regurgitation Mitral calcification Moderate to severe tricuspid regurgitation Previewed by: Dr. Vish Bustamante DO (Electronically Signed) Final Date: 09 February 2022 11:01
[2022-02-09] MEDS: VANCOMYCIN 750 MG in SODIUM CHLORIDE 0.9% 250 ML IVPB SCH (11:53)
--- NOTE | 2022-02-09 12:07 | XR ---
EXAMINATION TYPE: XR chest 2V DATE OF EXAM: 02/09/2022 COMPARISON: Chest x-ray 02/08/2022 HISTORY: Congestive heart failure TECHNIQUE: Frontal and lateral views of the chest are obtained. FINDINGS: Patient is rotated. There is a generator in left pectoral region, leads in right atrium and ventricle are stable. Interstitium is increased. There is abnormal density lung bases as on prior ex am, blunting the costophrenic angles, no evident pneumothorax. Aorta is dense. The osseous structures are intact, patient is kyphotic, vertebroplasty change in the midthoracic spine is again seen. There is a spinal curvature. There are prominent lung volumes, increased AP diameter of the chest. IMPRESSION: Correlate for congestive heart failure with pleural effusions in a patient with pre-exis ting COPD.
--- NOTE | 2022-02-09 12:46 | P.CRDCN ---
History of Present Illness History of present illness: HISTORY OF PRESENTING ILLNESS This is a pleasant 76-year-old female past medical history significant for long- standing persistent atrial fibrillation (not on anticoagulation secondary to GI bleed, being considered for Watchman device), hypertension, permanent pacemaker implantation, recent left proximal femoral fracture status post ORIF on 12/09/21. She follows in the office with Dr. Penn. We have been asked to see in consultation for congestive heart failure. Patient presented emergency department on 02/03/2022 with complaints of left hip pain, fevers, chills, concerning for infection. She has been treated with IV antibiotics and Orthopedics is following and patient underwent aspiration of the left hip on 02/06. She was given IV fluids and yesterday she had complaints of worsening shortness of breath and lower extremity edema. Her IV fluids were stopped and patient was started on IV Lasix. She states she has been having good urine output. Her breathing has improved and LE edema has improved as well. She is feeling better today, denies any chest pain, palpitations, shortness of breath, lightheadedness or dizziness. DIAGNOSTICS * EKG reveals A fib with HR 123 * Echocardiogram revealed an EF of 5560 percent, mildly increased LVH, RVSP 33mHg, mild mitral regurgitation, moderate to severe tricuspid regurgitation * Cardiac catheterization 2002 revealed normal coronary arteries * Telemetry tracings indicate this morning in sinus rhythm HR 60s * Chest xray bilateral pleural effusions. * Laboratory reviewed, WBC 12.1, hemoglobin 10.1, platelets 722, sodium 140, potassium 3.6, BUN 6, serum creatinine 0.6, blood cultures negative growth to date. Prelim on left hip culture no anaerobes isolated REVIEW OF SYSTEMS At the time of my exam: CONSTITUTIONAL: Denies fever or chills. CARDIOVASCULAR: Denies chest pain, shortness of breath, orthopnea, PND or palpitations. RESPIRATORY: Denies cough. GASTROINTESTINAL: Denies abdominal pain, diarrhea, constipation, nausea or vomiting. MUSCULOSKELETAL: Left hip pain NEUROLOGIC: Denies numbness, tingling, headacbe or weakness. ENDOCRINE: Denies fatigue, weight change, polydipsia or polyurina. GENITOURINARY: Denies burning, hematuria or urgency with micturation. HEMATOLOGIC: Denies history of anemia or bleeding. PHYSICAL EXAMINATION Blood pressure 119/67, heart rate 62, afebrile, saturations 95% on room air CONSTITUTIONAL: No apparent distress. HEENT: Head is normocephalic. Pupils are equal, round. Sclerae anicteric. Mucous membranes of the mouth are moist. No JVD. No carotid bruit. CHEST EXAMINATION: Lungs are diminished bilaterally to auscultation. No chest wall tenderness is noted on palpation or with deep breathing. HEART EXAMINATION: Regular rate and rhythm. S1, S2 heard. No murmurs, gallops or rub. ABDOMEN: Soft, nontender. Positive bowel sounds. EXTREMITIES: 2+ peripheral pulses, non-pitting, mild lower extremity edema and no calf tenderness. NEUROLOGIC EXAMINATION: Patient is awake, alert and oriented x3. ASSESSMENT Acute on chronic heart failure with preserved ejection fraction, improved Left hip pain Abscess of left hip Fever, Chills Long-standing persistent atrial fibrillation (not on anticoagulation secondary to GI bleed, being considered for Watchman device) Hypertension Permanent pacemaker implantation Recent left proximal femoral fracture status post ORIF on 12/09/21 PLAN From a cardiology perspective, can continue IV Lasix this morning. Patient could be considered for discharge later today, her shortness of breath has resolved and LE edema has improved and if discharged, transition to PO Lasix Monitor I/Os, daily weights and renal function Continue home cardiac medications Follow up outpatient with Dr. Penn Nurse practitioner note has been reviewed by physician. Signing provider agrees with the documented findings, assessment, and plan of care. Past Medical History Past Medical History: Atrial Fibrillation, Blood Disorder, Coronary Artery Disease (CAD), Chest Pain / Angina, COPD, Fibromyalgia, GERD/Reflux, GI Bleed, Hypertension, Myocardial Infarction ([place]), Musculoskeletal Disorder, Osteoarthritis (OA), Thyroid Disorder Additional Past Medical History / Comment(s): Pacemaker for Syncope/Tachybrady Syndrome. Hx RHEUMATIC FEVER. Heart murmur, chronic back and bilateral shoulder pain. SEVERE OSTEOPROSIS, Vertigo, Degenerative Joint Disease, GI ulcers, esophagitis/esophageal stricture, partially blocked bile duct, PROBLEMS WITH SWALLOWING, "no symptoms of COPD." FALLS "Cannot lie down for long without having back pain.". Left hip open reduction internal fixation of some trochanteric comminuted femur fracture in November 2021 Last Myocardial Infarction Date:: 2002 History of Any Multi-Drug Resistant Organisms: None Reported Past Surgical History: Appendectomy, Cardiac Ablation, Cholecystectomy, Ear Surgery, Heart Catheterization, Hysterectomy, Orthopedic Surgery, Pacemaker, Tonsillectomy Additional Past Surgical History / Comment(s): ORIF LEFT LOWER ARM, HAS HARDWARE, numerous DILATATION OF ESOPHAGUS, biopsies were negative, colonoscopy, Pacemaker (ADAPTA) placed 07/07 at [facility], bilateral stapedectomies(stainless steel in both ears), Hiatal Hernia repair, inguinal and femoral hernia repairs, "cement placed in back, due to broken back/pelvis". Left Femur Surgery 12/09/21 Past Anesthesia/Blood Transfusion Reactions: Family History of Problems w/ Anesthesia, Motion Sickness, Postoperative Nausea & Vomiting (PONV) Additional Past Anesthesia/Blood Transfusion Reaction / Comment(s): No problems with prior blood transfusion. BROTHER HAS PONV. Type of Cardiac Device: Permanent Pacemaker Device Placement Date:: 06/2016 Past Psychological History: No Psychological Hx Reported Additional Psychological History / Comment(s): DENIES ANY HX OF PROBLEM Smoking Status: Never smoker Past Alcohol Use History: None Reported Additional Past Alcohol Use History / Comment(s): Lives alone Past Drug Use History: None Reported - Past Family History Brother(s) Family Medical History: Cancer Additional Family Medical History / Comment(s): Throat cancer. Father Family Medical History: Pneumonia Additional Family Medical History / Comment(s): EMPHYSEMA. Mother Family Medical History: COPD, Rheumatoid Arthritis (RA) Additional Family Medical History / Comment(s): EMPHYSEMA. Medications and Allergies Home Medications Medication Instructions Recorded Confirmed Type SUMAtriptan succinate [Imitrex] 50 mg PO BID PRN 02/15/16 02/03/22 History Dicyclomine [Bentyl] 10 mg PO TID 05/10/19 02/03/22 History L.acidoph,Paracasei, B.lactis 1 cap PO DAILY@1700 02/06/20 02/03/22 History [Probiotic] allopurinoL [Zyloprim] 50 mg PO DAILY 02/06/20 02/03/22 History Metoprolol Tartrate [Lopressor] 50 mg PO BID 10/05/20 02/03/22 History Albuterol Inhaler [Ventolin Hfa 2 puff INHALATION RT-Q4H PRN 08/04/21 02/03/22 History Inhaler] Spironolactone [Aldactone] 25 mg PO DAILY 08/04/21 02/03/22 History Diclofenac Sodium [Voltaren] 75 mg PO BID 12/09/21 02/03/22 History Ergocalciferol [Vitamin D2 (1250 1,250 mcg PO FR 12/09/21 02/03/22 History Mcg = 11062 Iu)] Levothyroxine Sodium 100 mcg PO DAILY@0600 12/09/21 02/03/22 History Magnesium Gluconate [Magonate] 750 mg PO DAILY@1700 12/09/21 02/03/22 History calcitrioL [Calcitriol] 0.25 mcg PO FR 12/09/21 02/03/22 History hydrOXYzine HCL [Atarax] 25 mg PO Q6H PRN 12/09/21 02/03/22 History Pantoprazole [Protonix] 40 mg PO BID@0800,1700 12/27/21 02/03/22 History Triamcinolone 0.5% Ointment 1 applic TOPICAL BID 12/27/21 02/03/22 History Amiodarone [Cordarone] 200 mg PO DAILY 02/03/22 02/03/22 History Amitriptyline HCl [Elavil] 25 mg PO HS 02/03/22 02/03/22 History Aspirin EC [Ecotrin Low Dose] 81 mg PO DAILY 02/03/22 02/03/22 History Denosumab [Prolia] 60 mg SQ Q180D 02/03/22 02/03/22 History Furosemide [Lasix] 80 mg PO AC-BID 02/03/22 02/03/22 History HYDROcodone/APAP 5-325MG [[place] 1 tab PO BID PRN 02/03/22 02/03/22 History 5-325] Loratadine [Claritin] 5 mg PO BID PRN 02/03/22 02/03/22 History Potassium Chloride ER [K-Dur 10] 40 meq PO BID-W/MEALS 02/03/22 02/03/22 History polyethylene glycoL 3350 [Miralax] 17 gm PO DAILY 02/03/22 02/03/22 History Allergies Allergy/AdvReac Type Severity Reaction Status Date / Time adhesive Allergy RASH FROM Verified 02/03/22 06:24 EKG STICKERS apixaban [From Eliquis] Allergy Rash/Hives Verified 02/03/22 06:24 celecoxib [From Celebrex] Allergy Rash/Hives Verified 02/03/22 06:24 sertraline HCl [From Zoloft] Allergy Rash/Hives Verified 02/03/22 06:24 sulfamethoxazole Allergy Anaphylaxis Verified 02/03/22 06:24 [From Bactrim] trimethoprim [From Bactrim] Allergy Anaphylaxis Verified 02/03/22 06:24 cholestyramine AdvReac DIZZY/CONFU Verified 02/03/22 06:24 SED Physical Exam Vitals: Vital Signs Temp Pulse Pulse Resp BP BP Pulse Ox 02/09/22 02:30 97.5 F L 58 L 17 121/71 97 02/08/22 19:17 97.7 F 61 18 126/80 94 L 02/08/22 16:45 62 02/08/22 13:58 97.9 F 52 L 16 137/73 100 02/08/22 08:26 98.1 F Intake and Output 02/08/22 02/09/22 02/09/22 22:59 06:59 14:59 Output Total 700 Balance -700 Output: Urine 700 Other: Voiding Method Bedside Commode # Voids 4 5 Results 02/08/22 10:33 02/09/22 05:06 CBC 02/08/22 Range/Units 10:33 WBC 12.1 H (3.8-10.6) k/uL RBC 3.17 L (3.80-5.40) m/uL Hgb 10.1 L (11.4-16.0) gm/dL Hct 34.5 (34.0-46.0) % Plt Count 722 H (150-450) k/uL Comprehensive Metabolic Panel 02/08/22 02/09/22 Range/Units 10:33 05:06 Sodium 143 140 (137-145) mmol/L Potassium 3.7 3.6 (3.5-5.1) mmol/L Chloride 109 H 104 (98-107) mmol/L Carbon Dioxide 25 27 (22-30) mmol/L BUN 5 L 6 L (7-17) mg/dL Creatinine 0.63 0.63 (0.52-1.04) mg/dL Glucose 87 100 H (74-99) mg/dL Calcium 8.7 8.4 (8.4-10.2) mg/dL Current Medications Generic Name Dose Route Start Last Admin Trade Name Freq PRN Reason Stop Dose Admin Hydrocodone Bitart/Acetaminophen 1 each 02/03/22 11:30 02/09/22 03:40 Hydrocodone/Apap 5-325mg 1 Each Tab PO 1 each Q6HR PRN Administration Pain Albuterol Sulfate 2.5 mg 02/03/22 17:04 02/08/22 07:01 Albuterol Nebulized 2.5 Mg/3 Ml INHALATION 2.5 mg RT-Q4H PRN Administration Shortness Of Breath Allopurinol 50 mg 02/04/22 09:00 02/08/22 08:53 Allopurinol 100 Mg Tab PO 50 mg DAILY [facility] Administration Amiodarone HCl 200 mg 02/04/22 09:00 02/08/22 08:54 Amiodarone 200 Mg Tab PO 200 mg DAILY [facility] Administration Amitriptyline HCl 25 mg 02/03/22 21:00 02/08/22 21:27 Amitriptyline Hcl 25 Mg Tab PO 25 mg HS [facility] Administration Aspirin 81 mg 02/04/22 09:00 02/08/22 08:54 Aspirin 81 Mg PO 81 mg DAILY [facility] Administration Calcitriol 0.25 mcg 02/10/22 09:00 Calcitriol 0.25 Mcg Cap PO FR [facility] Dicyclomine HCl 10 mg 02/03/22 22:00 02/08/22 21:27 Dicyclomine 10 Mg Cap PO Not Given TID [facility] Enoxaparin Sodium 40 mg 02/06/22 09:00 02/08/22 09:04 Enoxaparin 40 Mg/0.4 Ml Syringe SQ Not Given DAILY [facility] Furosemide 60 mg 02/08/22 16:00 02/08/22 23:05 Furosemide 10 Mg/Ml 10 Ml Vial IV 60 mg Q8HR [facility] Administration Hydroxyzine HCl 25 mg 02/03/22 17:04 Hydroxyzine Hcl 25 Mg Tab PO Q6H PRN Itching Ceftriaxone Sodium 2 gm/ 50 mls @ 100 mls/hr 02/04/22 09:00 02/08/22 08:54 Sodium Chloride IVPB 100 mls/hr Q24HR [facility] Administration Protocol Vancomycin HCl 750 mg/ Sodium 250 mls @ 125 mls/hr 02/07/22 00:00 02/08/22 23:05 Chloride IVPB 125 mls/hr Q12H [facility] Administration Ferric Sodium Gluconate 125 mg 110 mls @ 100 mls/hr 02/07/22 13:00 02/08/22 08:54 / Sodium Chloride IVPB 02/09/22 10:05 100 mls/hr DAILY [facility] Administration Lactobacillus Acidoph/Bulgaricus 1 each 02/04/22 17:00 02/08/22 15:48 Lactobacillus Acidoph & Bulgar 1 Each Packet PO 1 each DAILY@1700 [facility] Administration Levothyroxine Sodium 100 mcg 02/04/22 06:00 02/09/22 05:35 Levothyroxine 100 Mcg Tab PO 100 mcg DAILY@0600 [facility] Administration Loratadine 5 mg 02/03/22 17:04 Loratadine 10 Mg Tab PO BID PRN Itching Metoprolol Tartrate 50 mg 02/03/22 21:00 02/08/22 21:27 Metoprolol Tartrate 50 Mg Tab PO 50 mg BID [facility] Administration Naloxone HCl 0.2 mg 02/03/22 06:04 Naloxone 0.4 Mg/Ml 1 Ml Vial IV Q2M PRN Opioid Reversal Ondansetron HCl 4 mg 02/03/22 11:30 02/03/22 12:07 Ondansetron 4 Mg/2 Ml Vial IVP 4 mg Q6H PRN Administration Nausea Pantoprazole Sodium 40 mg 02/04/22 08:00 02/08/22 15:46 Pantoprazole 40 Mg Tablet PO 40 mg BID@0800,1700 [facility] Administration Polyethylene Glycol 17 gm 02/04/22 09:00 02/08/22 08:57 Polyethylene Glycol 3350 17 Gm Powd.Pack PO Not Given DAILY [facility] Intake and Output 02/08/22 02/09/22 02/09/22 22:59 06:59 14:59 Output Total 700 Balance -700 Output: Urine 700 Other: Voiding Method Bedside Commode # Voids 4 5 02/08/22 10:33 02/09/22 05:06
[2022-02-09 14:36] VITALS: BMI 21.3
[2022-02-09] MEDS ORDERED: FUROSEMIDE 10 MG/ML 10 ML VIAL IV STA (14:45)
--- NOTE | 2022-02-09 14:50 | P.PN ---
Progress Note - Text Progress Note Date: 02/09/22 This is a very pleasant 76-year-old patient of Dr. Wray. Chronic stable medical conditions include esophagitis, peptic ulcer disease, chronic essential hypertension, primary osteoarthritis of multiple joints bilateral, depression, hypothyroidism, esophageal dysmotility, anxiety not otherwise specified,, esophageal constriction with repeated dilatation.- followed at [facility] for the same. December 09/2022 underwent left proximal femur open reduction internal fixation with IM thu. Atrial fibrillation not on anticoagulation because of previous GI bleeds The patient was discharged to [facility] postoperatively on 12/16 and was subsequently seen again in the emergency room on 12/27 and admitted for multiple complaints including weakness and was diagnosed with severe acute kidney injury. The patient was again discharged to [facility] on 01/02 and reports that she had returned home one week ago. She reports that over the past 4-5 days, she has developed gradually worsening left hip pain. Reports she continues to be nonweightbearing of the left hip due to her pain which 10 out of 10 at maximal intensity, constant, exacerbated with any movement, with no alleviating factors. She also reports a left lower extremities swelling ongoing for the past few days as well as a right flank and right lower abdominal discomfort which she reports is pleuritic with radiation to the back. We'll also reports fever at home with T-max 103 measured 2 days ago which came down to 101 yesterday as per the patient. She denied urinary complaints, cough, chest discomfort, or diarrhea. In the emergency room, the left hip with pelvis x-ray revealed no evidence of acute pathologies with expected postsurgical changes. Due to downtime, all initial testing can be found in the paper chart. Vital signs upon presentation to the emergency room or BP 121/63, pulse 72, temperature 98.1, and SpO2 97% on room air. Laboratory evaluation revealed sodium 132, potassium 3.0, chloride 89, CO2 30, BUN 67 creatinine 1.15, calcium 8.6, total bilirubin 0.5, AST 47, ALT 30, lipase 59, magnesium 2.1, glucose 119. COVID-19 testing was negative. Troponin I was 0.015. 02/04/2022: Assumed care of the patient from sound physicians today. Computed tomography scan had shown subtle fluid collection 2.6 x 1.2 cm anterior to the proximal LAD expected the distal fracture fragment. Also possible hematoma and the rectus femoris. Concerned about this being infected. Interventional radiology consulted. Patient also being followed by vascular surgery and ID. Patient has decreased appetite. Does not like hospital food. On IV ceftriaxone and vancomycin. 02/05/2022: Sitting up in a chair. Left thigh pain. Pending I&D by interventional radiology tomorrow. On IV ceftriaxone and vancomycin. Oral intake eating some. 02/06/2022: Laying in bed. Tired. Does not like hospital food. Drinking Ensure. Pending ID by interventional radiology. IV ceftriaxone and vancomycin. 02/07/2022: In bed. Tired. Had I&D done yesterday. Cultures pending. Currently on IV cefazolin and vancomycin. Some improvement in pain in his left leg. 02/08/2022: Patient short of breath. Increase leg edema. IV fluids cutback. Check stat x-rays reviewed shows pulmonary edema. Started on IV Lasix 60 mg every 8. On IV ceftriaxone. Getting IV Ferrlecit. Cultures is pending. On IV ceftriaxone and IV vancomycin. 02/09/2022: Breathing better today. Seen by cardiology. slip seat coverer to by mouth Lasix. We will give 1 dose additional dose of IV Lasix. Edema better. Chest x-ray reviewed. Discussed with community case manager patient will benefit from rehab. Discussed with the patient. Patient very keen to go home. Her daughter on IV antibiotics. Conveyed to community case manager. Cultures pending. Active Medications Hydrocodone Bitart/Acetaminophen (Hydrocodone/Apap 5-325mg 1 Each Tab) 1 each PO Q6HR PRN PRN Reason: Pain Last Admin: 02/09/22 14:40 Dose: 1 each Albuterol Sulfate (Albuterol Nebulized 2.5 Mg/3 Ml) 2.5 mg INHALATION RT-Q4H PRN PRN Reason: Shortness Of Breath Last Admin: 02/08/22 07:01 Dose: 2.5 mg Allopurinol (Allopurinol 100 Mg Tab) 50 mg PO DAILY [facility] Last Admin: 02/09/22 08:33 Dose: 50 mg Amiodarone HCl (Amiodarone 200 Mg Tab) 200 mg PO DAILY [facility] Last Admin: 02/09/22 08:35 Dose: 200 mg Amitriptyline HCl (Amitriptyline Hcl 25 Mg Tab) 25 mg PO HS [facility] Last Admin: 02/08/22 21:27 Dose: 25 mg Aspirin (Aspirin 81 Mg) 81 mg PO DAILY [facility] Last Admin: 02/09/22 08:34 Dose: 81 mg Calcitriol (Calcitriol 0.25 Mcg Cap) 0.25 mcg PO FR [facility] Dicyclomine HCl (Dicyclomine 10 Mg Cap) 10 mg PO TID [facility] Last Admin: 02/09/22 08:35 Dose: Not Given Enoxaparin Sodium (Enoxaparin 40 Mg/0.4 Ml Syringe) 40 mg SQ DAILY [facility] Last Admin: 02/09/22 08:34 Dose: Not Given Furosemide (Furosemide 80 Mg Tab) 80 mg PO BID@0900,1600 [facility] Hydroxyzine HCl (Hydroxyzine Hcl 25 Mg Tab) 25 mg PO Q6H PRN PRN Reason: Itching Ceftriaxone Sodium 2 gm/ (Sodium Chloride) 50 mls @ 100 mls/hr IVPB Q24HR [facility]; Protocol Last Admin: 02/09/22 08:36 Dose: 100 mls/hr Vancomycin HCl 750 mg/ Sodium (Chloride) 250 mls @ 125 mls/hr IVPB Q12H [facility] Last Admin: 02/09/22 11:53 Dose: 125 mls/hr Lactobacillus Acidoph/Bulgaricus (Lactobacillus Acidoph & Bulgar 1 Each Packet) 1 each PO DAILY@1700 [facility] Last Admin: 02/08/22 15:48 Dose: 1 each Levothyroxine Sodium (Levothyroxine 100 Mcg Tab) 100 mcg PO DAILY@0600 [facility] Last Admin: 02/09/22 05:35 Dose: 100 mcg Loratadine (Loratadine 10 Mg Tab) 5 mg PO BID PRN PRN Reason: Itching Metoprolol Tartrate (Metoprolol Tartrate 50 Mg Tab) 50 mg PO BID [facility] Last Admin: 02/09/22 08:34 Dose: 50 mg Naloxone HCl (Naloxone 0.4 Mg/Ml 1 Ml Vial) 0.2 mg IV Q2M PRN PRN Reason: Opioid Reversal Ondansetron HCl (Ondansetron 4 Mg/2 Ml Vial) 4 mg IVP Q6H PRN PRN Reason: Nausea Last Admin: 02/03/22 12:07 Dose: 4 mg Pantoprazole Sodium (Pantoprazole 40 Mg Tablet) 40 mg PO BID@0800,1700 [facility] Last Admin: 02/09/22 08:33 Dose: 40 mg Polyethylene Glycol (Polyethylene Glycol 3350 17 Gm Powd.Pack) 17 gm PO DAILY [facility] Last Admin: 02/09/22 08:36 Dose: Not Given Past medical history to include: fibromyalgia, GERD, GI bleed, hypertension, osteoarthritis, hypothyroid, pacemaker for tachybradycardia syndrome, paroxysmal atrial flutter fibrillation, severe osteoporosis, esophageal stricture with dilatation, esophagitis Past surgical history to include: Appendectomy, cardiac ablation, ear surgery, pacemaker, or on her fourth left lower lobe, esophageal dilatation, pacemaker, cardiac ablation, Social history: Does not smoke or drink alcohol. Lives alone. Physical examination: VITAL SIGNS: 97.9, 61, 18, 142/66, 95% room air GENERAL: Up in a chair, tired EYES: Pupils equal. Conjunctiva pale. HEENT: External appearance of nose and ears normal, oral cavity grossly normal. NECK: JVD not raised; masses not palpable. HEART: First second sound normal, edema decreased LUNGS: Respiratory rate increased; decreased breath sounds ABDOMEN: Soft, , nontender, liver spleen not palpable, no masses palpable. PSYCH: [Alert and oriented x3; mood and affect anxious MUSCULOSKELETAL: Evidence of OA especially in the hands and knees . Slight swelling in the left hip area INVESTIGATIONS, reviewed in the clinical context: 2-D echocardiogram: EF 55-60%. Moderate to severe tricuspid regurgitation. February 09: Potassium 3.6 creatinine 0.63 February 08: WBC 12.1 hemoglobin 10.1-722 potassium 3.7 creatinine 0.63 Chest x-ray film [February 08] personally reviewed by ct-pulmonary edema and pleural effusion I had an 12 TIBC 171% saturation 6.97 ferritin 307 B12 786 TSH 2.8 February 06: WBC 15.6 hemoglobin 8.3 potassium 3.9 creatinine 0.7 to February 04: White count 16.4 hemoglobin 7.4 platelets 386 potassium 3.6 BUN 36 creatinine 1.1 CRP 22.3 COVID 19: Not detected Admission labs: White count 17.1 hemoglobin 8.1 percussion 3 BUN 67 creatinine 1.15 Venous Doppler: Negative for DVT left leg. CT scans left hip: Subtle 2.6 x 1.2 cm fluid collection anterior to the proximal aspect of the distal fracture fragment on MH. Also persistent lucency along the posterior aspect of the greater trochanter. Chronic malalignment of the fracture fragments. There is an elongated heterogenous collection measuring 15.8 x 3.7 x 2.3 cm pushing up on the rectus femoris and down into the underlying vastus. Possible hematoma Assessment and plan: -Left sided: elongated heterogenous collection measuring 15.8 x 3.7 x 2.3 cm pushing up on the rectus femoris and down into the underlying vastus. Possible hematoma. Could be infected: Slow to respond IV vancomycin, IV ceftriaxone. Intervention radiology IND done on February 06. Culture pending -Acute congestive heart failure exacerbation.: Better overhead cleaner to by mouth Lasix.. Sodium restriction 1800 mL a day. 2-D echo. Seen by cardiology. -Paroxysmal atrial flutter film fibrillation with a prior history of ablation, and atrial flutter Amiodarone. Lopressor 50 mg twice a day -Chronic esophagitis Protonix 40 mg twice a day -Macrocytic anemia Check B12 folate. Iron studies. -Essential hypertension Lopressor 50 mg twice a day -Primary osteoarthritis Pain medications -Hypothyroid Synthroid -Iron deficiency anemia IV Ferrlecit -Esophageal dysmotility -Anxiety but otherwise specified Xanax when necessary -Chronic esophageal constriction with repeated dilatations -Pacemaker for tachybradycardia syndrome. -Mild protein calorie malnutrition from decreased oral intake Ensure overhead cleaner to by mouth Lasix. Check stat x-rays reviewed. Patient not keen to go to rehab. Discussed with community case manager. We will arrange antibiotics for home. Cultures pending. Total time spent today about 40 minutes with over 25 minutes of discussion.
[2022-02-09] MEDS ORDERED: SUMAtriptan succinate 50 MG TAB PO PRN (15:59)
[2022-02-09] MEDS: LACTOBACILLUS ACIDOPH & BULGAR 1 EACH PACKET PO SCH (16:55)
[2022-02-09] MEDS: FUROSEMIDE 80 MG TAB PO SCH (17:56)
[2022-02-09] MEDS: AMITRIPTYLINE HCL 25 MG TAB PO SCH (21:22)
[2022-02-09] MEDS ORDERED: MELATONIN 3 MG TABLET PO SCH (22:00)
[2022-02-10] MEDS: VANCOMYCIN 750 MG in SODIUM CHLORIDE 0.9% 250 ML IVPB SCH ×2 (00:09→12:07)
[2022-02-10] MEDS: HYDROcodone/APAP 5-325MG 1 EACH TAB PO PRN ×3 (03:38→15:55)
[2022-02-10 04:08] VITALS: RESP 18
[2022-02-10] MEDS: LEVOTHYROXINE 100 MCG TAB PO SCH (05:43)
[2022-02-10 06:53] LABS: African American GFR (CKD) 90 (>60 ml/min/1.73 sqM); Anion Gap 8 mmol/L; Blood Urea Nitrogen 6 mg/dL (7-17); Calcium 8.2 mg/dL (8.4-10.2); Carbon Dioxide 30 mmol/L (22-30); Chloride 101 mmol/L (98-107); Glucose 92 mg/dL (74-99); Non-African American GFR(CKD) 78 (>60 ml/min/1.73 sqM); Potassium 3.7 mmol/L (3.5-5.1); Sodium 139 mmol/L (137-145)
[2022-02-10] MEDS: ASPIRIN 81 MG PO SCH (08:22)
[2022-02-10] MEDS: allopurinoL 100 MG TAB PO SCH (08:23)
[2022-02-10] MEDS: METOPROLOL TARTRATE 50 MG TAB PO SCH (08:26)
[2022-02-10] MEDS: PANTOPRAZOLE 40 MG TABLET PO SCH ×2 (08:26→17:47)
[2022-02-10] MEDS: DICYCLOMINE 10 MG CAP PO SCH ×2 (08:28→17:17)
[2022-02-10] MEDS: AMIODARONE 200 MG TAB PO SCH (08:28)
[2022-02-10] MEDS: FUROSEMIDE 80 MG TAB PO SCH ×2 (08:28→16:00)
[2022-02-10] MEDS: ENOXAPARIN 40 MG/0.4 ML SYRINGE SQ SCH (08:28)
[2022-02-10] MEDS: polyethylene glycoL 3350 17 GM POWD.PACK PO SCH (08:30)
--- NOTE | 2022-02-10 09:16 | P.PN ---
Subjective This is a pleasant 76-year-old female past medical history significant for long- standing persistent atrial fibrillation (not on anticoagulation secondary to GI bleed, being considered for Watchman device), hypertension, permanent pacemaker implantation, recent left proximal femoral fracture status post ORIF on 12/09/21. She follows in the office with Dr. Penn. We have been asked to see in consultation for congestive heart failure. Patient presented emergency department on 02/03/2022 with complaints of left hip pain, fevers, chills, concerning for infection. She has been treated with IV antibiotics and Orthopedics is following and patient underwent aspiration of the left hip on 02/06. She was given IV fluids and yesterday she had complaints of worsening shortness of breath and lower extremity edema. Her IV fluids were stopped and patient was started on IV Lasix. She states she has been having good urine output. Her breathing has improved and LE edema has improved as well. She is feeling better today, denies any chest pain, palpitations, shortness of breath, lightheadedness or dizziness. 02/10/2022 Patient seen and examined at bedside, no acute distress. Her shortness of breath and lower extremity edema has improved. Overall she has no complaints. She has been transitioned to by mouth Lasix. Labs, sodium 139, potassium 2.7, BUN 6, serum creatinine 0.7 PHYSICAL EXAMINATION Blood pressure 122/71, heart rate 58, afebrile, saturation 96% on room air CONSTITUTIONAL: No apparent distress. HEENT: Head is normocephalic. Neck supple No JVD. CHEST EXAMINATION: Lungs are diminished bilaterally to auscultation. No chest wa ll tenderness is noted on palpation or with deep breathing. HEART EXAMINATION: Regular rate and rhythm. S1, S2 heard. No murmurs, gallops or rub. ABDOMEN: Soft, nontender. Positive bowel sounds. EXTREMITIES: 2+ peripheral pulses, non-pitting, mild lower extremity edema and no calf tenderness. NEUROLOGIC EXAMINATION: Patient is awake, alert and oriented x3. ASSESSMENT Acute on chronic heart failure with preserved ejection fraction, improved Left hip pain Abscess of left hip Fever, Chills Long-standing persistent atrial fibrillation (not on anticoagulation secondary to GI bleed, being considered for Watchman device) Hypertension Permanent pacemaker implantation Recent left proximal femoral fracture status post ORIF on 12/09/21 PLAN Continue PO Lasix Continue home cardiac medications No further changes from a cardiology perspective. Discharge per clearance from primary and other consultants We will follow the patient as needed. Follow up outpatient with Dr. Penn Nurse practitioner note has been reviewed by physician. Signing provider agrees with the documented findings, assessment, and plan of care. Objective - Vital Signs Vital signs: Vital Signs Temp 97.5 F L 02/10/22 07:15 Pulse 58 L 02/10/22 07:15 Resp 18 02/10/22 07:15 BP 122/71 02/10/22 07:15 Pulse Ox 96 02/10/22 07:15 FiO2 Intake & Output 02/09/22 02/10/22 02/10/22 18:59 06:59 18:59 Intake Total 0 Balance 0 Weight 51.3 kg 50.9 kg Intake: Oral 0 Other: Voiding Method Bedside Commode Bedside Commode - Labs CBC & Chem 7: 02/08/22 10:33 02/10/22 05:57 Labs: Abnormal Lab Results - Last 24 Hours (Table) 02/10/22 Range/Units 05:57 BUN 6 L (7-17) mg/dL Calcium 8.2 L (8.4-10.2) mg/dL Microbiology - Last 24 Hours (Table) 02/06/22 15:30 Gram Stain - Preliminary Aspirate Body Fluid Culture - Preliminary 02/03/22 12:41 Blood Culture - Final Blood No Growth after 144 hours 02/03/22 01:30 Blood Culture - Final Blood No Growth after 144 hours 02/03/22 01:15 Blood Culture - Final Blood No Growth after 144 hours
[2022-02-10 14:03] VITALS: BP 138/69; PULSE 77; TEMP 98.3
--- NOTE | 2022-02-10 14:43 | P.PN ---
Subjective Progress Note Date: 02/09/22 Principal diagnosis: Fever and possible infection of left hip surgical site Patient is a 76-year-old female who recently did have a fall with the fracture to the left femur in this patient who is status post surgical repair now presenting to the hospital with a fever pain to the left hip site abdominal CT concern for possible fluid collection with a question of hematoma versus abscess. Patient is status post iron drainage of the fluid collection on 02/06/2022 On today's evaluation and that is 02/09/2022, the patient remains to be afebrile, the patient is breathing comfortably on room air, the patient pain to the left hip is better today, the patient denies chest pain shortness of breath or cough , the patient denies nausea no vomiting no abdominal pain no diarrhea, Objective - Vital Signs Vital signs: Vital Signs Temp 97.6 F 02/09/22 08:00 Pulse 62 02/09/22 08:00 Resp 18 02/09/22 08:35 BP 119/67 02/09/22 08:00 Pulse Ox 95 02/09/22 08:00 FiO2 Intake & Output 02/08/22 02/09/22 02/09/22 18:59 06:59 18:59 Intake Total 120 Output Total 700 Balance -580 Intake: Oral 120 Output: Urine 700 Other: Voiding Method Bedside Commode Bedside Commode Bedside Commode # Voids 4 5 - Exam GENERAL DESCRIPTION: An elderly female lying in bed in no distress RESPIRATORY SYSTEM: Unlabored breathing , decreased breath sounds at bases HEART: S1 S2 regular rate and rhythm , ABDOMEN: Soft , no tenderness EXTREMITIES: No edema feet - Labs CBC & Chem 7: 02/08/22 10:33 02/10/22 05:57 Labs: Abnormal Lab Results - Last 24 Hours (Table) 02/08/22 02/08/22 02/09/22 Range/Units 10:33 10:33 05:06 WBC 12.1 H (3.8-10.6) k/uL RBC 3.17 L (3.80-5.40) m/uL Hgb 10.1 L (11.4-16.0) gm/dL MCV 109.0 H (80.0-100.0) fL MCHC 29.2 L (31.0-37.0) g/dL RDW 16.8 H (11.5-15.5) % Plt Count 722 H (150-450) k/uL Neutrophils # 9.9 H (1.3-7.7) k/uL Macrocytosis Marked A Chloride 109 H (98-107) mmol/L BUN 5 L 6 L (7-17) mg/dL Glucose 100 H (74-99) mg/dL Microbiology - Last 24 Hours (Table) 02/03/22 01:30 Blood Culture - Final Blood No Growth after 144 hours 02/03/22 01:15 Blood Culture - Final Blood No Growth after 144 hours 02/06/22 15:30 Anaerobic Culture - Preliminary Hip - Left 02/06/22 15:30 Gram Stain - Preliminary Aspirate Body Fluid Culture - Preliminary 02/03/22 12:41 Blood Culture - Preliminary Blood No Growth after 120 hours Assessment and Plan (1) Abscess of left hip Current Visit: Yes Status: Acute Code(s): L02.416 - CUTANEOUS ABSCESS OF LEFT LOWER LIMB SNOMED Code(s): 122860 (2) Sepsis Current Visit: Yes Status: Acute Code(s): A41.9 - SEPSIS, UNSPECIFIED ORGANISM SNOMED Code(s): 80871192 Plan: 1patient present to hospital with sepsis in this patient who did have a fever elevated white count tachycardia source is possible left hip surgical site infection the question of possible infected hematoma versus an abscess and likely need to cover for the MRSA to be the likely pathogen. 2the patient is status post IR drainage of this fluid collection which has been sent for culture currently pending 3patient urine culture growing Klebsiella and is covered with the Rocephin 4Patient has shown clinical improvement with resolution of the fever and white count is trending down, patient will continue with vancomycin while waiting for the drainage fluid cultures to finalize and monitor clinical course closely Time with Patient: Less than 30
--- NOTE | 2022-02-10 14:45 | P.PN ---
Subjective Progress Note Date: 02/10/22 Principal diagnosis: Fever and possible infection of left hip surgical site Patient is a 76-year-old female who recently did have a fall with the fracture to the left femur in this patient who is status post surgical repair now presenting to the hospital with a fever pain to the left hip site abdominal CT concern for possible fluid collection with a question of hematoma versus abscess. Patient is status post iron drainage of the fluid collection on 02/06/2022 On today's evaluation and that is 02/10/2022, the patient denies any fever or any chills, the patient is breathing comfortably on room air, the patient pain to the left hip decreased in intensity, the patient denies chest pain shortness of breath or cough , the patient denies nausea no vomiting no abdominal pain no diarrhea, the patient is feeling better and wants to go home Objective - Vital Signs Vital signs: Vital Signs Temp 97.5 F L 02/10/22 07:15 Pulse 58 L 02/10/22 07:15 Resp 18 02/10/22 08:23 BP 122/71 02/10/22 07:15 Pulse Ox 96 02/10/22 07:15 FiO2 Intake & Output 02/09/22 02/10/22 02/10/22 18:59 06:59 18:59 Intake Total 0 Balance 0 Weight 51.3 kg 50.9 kg Intake: Oral 0 Other: Voiding Method Bedside Commode Bedside Commode Bedside Commode - Exam GENERAL DESCRIPTION: An elderly female lying in bed in no distress RESPIRATORY SYSTEM: Unlabored breathing , decreased breath sounds at bases HEART: S1 S2 regular rate and rhythm , ABDOMEN: Soft , no tenderness EXTREMITIES: No edema feet, left hip with the no swelling no redness incision is healed - Labs CBC & Chem 7: 02/08/22 10:33 02/10/22 05:57 Labs: Abnormal Lab Results - Last 24 Hours (Table) 02/10/22 Range/Units 05:57 BUN 6 L (7-17) mg/dL Calcium 8.2 L (8.4-10.2) mg/dL Microbiology - Last 24 Hours (Table) 02/06/22 15:30 Gram Stain - Preliminary Aspirate Body Fluid Culture - Preliminary 02/03/22 12:41 Blood Culture - Final Blood No Growth after 144 hours Assessment and Plan (1) Abscess of left hip Current Visit: Yes Status: Acute Code(s): L02.416 - CUTANEOUS ABSCESS OF LEFT LOWER LIMB SNOMED Code(s): 275094 (2) Sepsis Current Visit: Yes Status: Acute Code(s): A41.9 - SEPSIS, UNSPECIFIED ORGANISM SNOMED Code(s): 03487402 Plan: 1patient present to hospital with sepsis in this patient who did have a fever elevated white count tachycardia source is possible left hip surgical site infection the question of possible infected hematoma versus an abscess and likely need to cover for the MRSA to be the likely pathogen. 2the patient is status post IR drainage of this fluid collection which has been sent for culture currently pending 3patient urine culture growing Klebsiella and is covered with the Rocephin, finishing therapy with oral Ceftin 4Patient has shown clinical improvement with resolution of the fever and blood culture has been negative the fluid aspirated from the left hip is negative as well with concern for possible hematoma rather than an abscess as there no signs of any inflammation at the left hip site on examination we will recommend discharged on oral Ceftin as the patient insisting on going home and close outpatient follow-up Time with Patient: Less than 30
[2022-02-10] MEDS: LACTOBACILLUS ACIDOPH & BULGAR 1 EACH PACKET PO SCH (17:17)
--- NOTE | 2022-02-10 18:27 | P.DS ---
Providers Date of admission: 02/03/22 11:24 Expected date of discharge: 02/10/22 Attending physician: Rich Wong Consults: 02/03/22 06:05 Consult Physician Urgent Consulting Provider: Emmanuel Saucedo Consult Reason/Comments: L hip pain s/p ORIF Do you want consulting provider notified?: Yes 02/03/22 11:29 Consult Physician Routine Consulting Provider: Malinda Garza Consult Reason/Comments: septic bursitis v infected hematoma Do you want consulting provider notified?: Yes 02/08/22 12:42 Consult Physician Routine Consulting Provider: Toro Simpson Consult Reason/Comments: CHF Do you want consulting provider notified?: Yes Primary care physician: Elroy [facility] Course: This is a very pleasant 76-year-old patient of Dr. Wray. Chronic stable medical conditions include esophagitis, peptic ulcer disease, chronic essential hypertension, primary osteoarthritis of multiple joints bilateral, depression, hypothyroidism, esophageal dysmotility, anxiety not otherwise specified,, esophageal constriction with repeated dilatation.- followed at [facility] for the same. December 09/2022 underwent left proximal femur open reduction internal fixation with IM thu. Atrial fibrillation not on anticoagulation because of previous GI bleeds The patient was discharged to [facility] postoperatively on 12/16 and was subsequently seen again in the emergency room on 12/27 and admitted for multiple complaints including weakness and was diagnosed with severe acute kidney injury. The patient was again discharged to [facility] on 01/02 and reports that she had returned home one week ago. She reports that over the past 4-5 days, she has developed gradually worsening left hip pain. Reports she continues to be nonweightbearing of the left hip due to her pain which 10 out of 10 at maximal intensity, constant, exacerbated with any movement, with no alleviating factors. She also reports a left lower extremities swelling ongoing for the past few days as well as a right flank and right lower abdominal discomfort which she reports is pleuritic with radiation to the back. We'll also reports fever at home with T-max 103 measured 2 days ago which came down to 101 yesterday as per the patient. She denied urinary complaints, cough, chest discomfort, or diarrhea. In the emergency room, the left hip with pelvis x-ray revealed no evidence of acute pathologies with expected postsurgical changes. Due to downtime, all initial testing can be found in the paper chart. Vital signs upon presentation to the emergency room or BP 121/63, pulse 72, temperature 98.1, and SpO2 97% on room air. Laboratory evaluation revealed sodium 132, potassium 3.0, chloride 89, CO2 30, BUN 67 creatinine 1.15, calcium 8.6, total bilirubin 0.5, AST 47, ALT 30, lipase 59, magnesium 2.1, glucose 119. COVID-19 testing was negative. Troponin I was 0.015. 02/04/2022: Assumed care of the patient from sound physicians today. Computed tomography scan had shown subtle fluid collection 2.6 x 1.2 cm anterior to the proximal LAD expected the distal fracture fragment. Also possible hematoma and the rectus femoris. Concerned about this being infected. Interventional radiology consulted. Patient also being followed by vascular surgery and ID. Patient has decreased appetite. Does not like hospital food. On IV ceftriaxone and vancomycin. 02/05/2022: Sitting up in a chair. Left thigh pain. Pending I&D by interventional radiology tomorrow. On IV ceftriaxone and vancomycin. Oral intake eating some. 02/06/2022: Laying in bed. Tired. Does not like hospital food. Drinking Ensure. Pending ID by interventional radiology. IV ceftriaxone and vancomycin. 02/07/2022: In bed. Tired. Had I&D done yesterday. Cultures pending. Currently on IV cefazolin and vancomycin. Some improvement in pain in his left leg. 02/08/2022: Patient short of breath. Increase leg edema. IV fluids cutback. Check stat x-rays reviewed shows pulmonary edema. Started on IV Lasix 60 mg every 8. On IV ceftriaxone. Getting IV Ferrlecit. Cultures is pending. On IV ceftriaxone and IV vancomycin. 02/09/2022: Breathing better today. Seen by cardiology. 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 We will give 1 dose additional dose of IV Lasix. Edema better. Chest x-ray reviewed. Discussed with block and case maker patient will benefit from rehab. Discussed with the patient. Patient very keen to go home. Her daughter on IV antibiotics. Conveyed to block and case maker. Cultures pending. 02/10/2022: Breathing stable. Patient very keen to go home. Does not want to go to rehab. Daughter will make arrangements. Discussed with block and case maker. Discussed with ID. Ceftin for 10 days. Follow-up with ID and orthopedic physician. Discussion and discharge planning more than 35 minutes Past medical history to include: fibromyalgia, GERD, GI bleed, hypertension, osteoarthritis, hypothyroid, pacemaker for tachybradycardia syndrome, paroxysmal atrial flutter fibrillation, severe osteoporosis, esophageal stricture with dilatation, esophagitis Past surgical history to include: Appendectomy, cardiac ablation, ear surgery, pacemaker, or on her fourth left lower lobe, esophageal dilatation, pacemaker, cardiac ablation, Social history: Does not smoke or drink alcohol. Lives alone. Physical examination: VITAL SIGNS: 98.3, 77, 18, 1 38 x 69, 99% room air GENERAL: Up in a chair, more comfortable EYES: Pupils equal. Conjunctiva pale. HEENT: External appearance of nose and ears normal, oral cavity grossly normal. NECK: JVD not raised; masses not palpable. HEART: First second sound normal, edema decreased LUNGS: Respiratory rate increased; decreased breath sounds ABDOMEN: Soft, , nontender, liver spleen not palpable, no masses palpable. PSYCH: [Alert and oriented x3; mood and affect anxious MUSCULOSKELETAL: Evidence of OA especially in the hands and knees . Slight swelling in the left hip area INVESTIGATIONS, reviewed in the clinical context: 2-D echocardiogram: EF 55-60%. Moderate to severe tricuspid regurgitation. February 09: Potassium 3.6 creatinine 0.63 February 08: WBC 12.1 hemoglobin 10.1-722 potassium 3.7 creatinine 0.63 Chest x-ray film [February 08] personally reviewed by me-pulmonary edema and pleural effusion I had an 12 TIBC 171% saturation 6.97 ferritin 307 B12 786 TSH 2.8 February 06: WBC 15.6 hemoglobin 8.3 potassium 3.9 creatinine 0.7 to February 04: White count 16.4 hemoglobin 7.4 platelets 386 potassium 3.6 BUN 36 creatinine 1.1 CRP 22.3 COVID 19: Not detected Admission labs: White count 17.1 hemoglobin 8.1 percussion 3 BUN 67 creatinine 1.15 Venous Doppler: Negative for DVT left leg. CT scans left hip: Subtle 2.6 x 1.2 cm fluid collection anterior to the proximal aspect of the distal fracture fragment on MH. Also persistent lucency along the posterior aspect of the greater trochanter. Chronic malalignment of the fracture fragments. There is an elongated heterogenous collection measuring 15.8 x 3.7 x 2.3 cm pushing up on the rectus femoris and down into the underlying vastus. Possible hematoma Assessment and plan: -Left sided: elongated heterogenous collection measuring 15.8 x 3.7 x 2.3 cm pushing up on the rectus femoris and down into the underlying vastus. Possible hematoma. Could be infected: Slow to respond IV vancomycin, IV ceftriaxone. Intervention radiology IND done on February 06. Culture pending 10 days of Ceftin per ID. -Acute congestive heart failure exacerbation. ROM diastolic dysfunction EF 55- 60%. Lasix.. Fluid restriction 1800 mL a day. Seen by cardiology. -Paroxysmal atrial flutter film fibrillation with a prior history of ablation, and atrial flutter Amiodarone. Lopressor 50 mg twice a day -Chronic esophagitis Protonix 40 mg twice a day -Macrocytic anemia Check B12 folate. Iron studies. -Essential hypertension Lopressor 50 mg twice a day -Primary osteoarthritis Pain medications -Hypothyroid Synthroid -Iron deficiency anemia IV Ferrlecit -Esophageal dysmotility -Anxiety but otherwise specified Xanax when necessary -Chronic esophageal constriction with repeated dilatations -Pacemaker for tachybradycardia syndrome. -Mild protein calorie malnutrition from decreased oral intake Ensure Disposition: Home Plan - Discharge Summary Discharge Rx Participant: No New Discharge Prescriptions: New cefUROXime axetiL [Ceftin] 500 mg PO BID #20 tab Continue SUMAtriptan succinate [Imitrex] 50 mg PO BID PRN PRN Reason: Migraine Headache Dicyclomine [Bentyl] 10 mg PO TID L.acidoph,Paracasei, B.lactis [Probiotic] 1 cap PO DAILY@1700 allopurinoL [Zyloprim] 50 mg PO DAILY Metoprolol Tartrate [Lopressor] 50 mg PO BID Diclofenac Sodium [Voltaren] 75 mg PO BID Ergocalciferol [Vitamin D2 (1250 Mcg = 80707 Iu)] 1,250 mcg PO FR Magnesium Gluconate [Magonate] 750 mg PO DAILY@1700 Triamcinolone 0.5% Ointment 1 applic TOPICAL BID Aspirin EC [Ecotrin Low Dose] 81 mg PO DAILY Loratadine [Claritin] 5 mg PO BID PRN PRN Reason: Itching polyethylene glycoL 3350 [Miralax] 17 gm PO DAILY Amiodarone [Cordarone] 200 mg PO DAILY Albuterol Inhaler [Ventolin Hfa Inhaler] 2 puff INHALATION RT-Q4H PRN PRN Reason: Shortness Of Breath Spironolactone [Aldactone] 25 mg PO DAILY calcitrioL [Calcitriol] 0.25 mcg PO FR hydrOXYzine HCL [Atarax] 25 mg PO Q6H PRN PRN Reason: Itching Levothyroxine Sodium 100 mcg PO DAILY@0600 Pantoprazole [Protonix] 40 mg PO BID@0800,1700 Amitriptyline HCl [Elavil] 25 mg PO HS Denosumab [Prolia] 60 mg SQ Q180D Furosemide [Lasix] 80 mg PO AC-BID HYDROcodone/APAP 5-325MG [[place] 5-325] 1 tab PO BID PRN PRN Reason: Pain Potassium Chloride ER [K-Dur 10] 40 meq PO BID-W/MEALS Discharge Medication List SUMAtriptan succinate [Imitrex] 50 mg PO BID PRN 02/15/16 [History] Dicyclomine [Bentyl] 10 mg PO TID 05/10/19 [History] L.acidoph,Paracasei, B.lactis [Probiotic] 1 cap PO DAILY@1700 02/06/20 [History] allopurinoL [Zyloprim] 50 mg PO DAILY 02/06/20 [History] Metoprolol Tartrate [Lopressor] 50 mg PO BID 10/05/20 [History] Albuterol Inhaler [Ventolin Hfa Inhaler] 2 puff INHALATION RT-Q4H PRN 08/04/21 [History] Spironolactone [Aldactone] 25 mg PO DAILY 08/04/21 [History] Diclofenac Sodium [Voltaren] 75 mg PO BID 12/09/21 [History] Ergocalciferol [Vitamin D2 (1250 Mcg = 23382 Iu)] 1,250 mcg PO FR 12/09/21 [History] Levothyroxine Sodium 100 mcg PO DAILY@0600 12/09/21 [History] Magnesium Gluconate [Magonate] 750 mg PO DAILY@1700 12/09/21 [History] calcitrioL [Calcitriol] 0.25 mcg PO FR 12/09/21 [History] hydrOXYzine HCL [Atarax] 25 mg PO Q6H PRN 12/09/21 [History] Pantoprazole [Protonix] 40 mg PO BID@0800,1700 12/27/21 [History] Triamcinolone 0.5% Ointment 1 applic TOPICAL BID 12/27/21 [History] Amiodarone [Cordarone] 200 mg PO DAILY 02/03/22 [History] Amitriptyline HCl [Elavil] 25 mg PO HS 02/03/22 [History] Aspirin EC [Ecotrin Low Dose] 81 mg PO DAILY 02/03/22 [History] Denosumab [Prolia] 60 mg SQ Q180D 02/03/22 [History] Furosemide [Lasix] 80 mg PO AC-BID 02/03/22 [History] HYDROcodone/APAP 5-325MG [[place] 5-325] 1 tab PO BID PRN 02/03/22 [History] Loratadine [Claritin] 5 mg PO BID PRN 02/03/22 [History] Potassium Chloride ER [K-Dur 10] 40 meq PO BID-W/MEALS 02/03/22 [History] polyethylene glycoL 3350 [Miralax] 17 gm PO DAILY 02/03/22 [History] cefUROXime axetiL [Ceftin] 500 mg PO BID #20 tab 02/10/22 [Rx] Follow up Appointment(s)/Referral(s): Ellen Penn MD [STAFF PHYSICIAN] - 02/21/22 10:15 am (Appointment made at the [facility]) Elroy Wray DO [Primary Care Provider] - 1 Week (THE OFFICE WILL CONTACT YOU WITH APPOINTMENT DATE AND TIME.) Ivory Lee DO [Doctor of Osteopathic Medicine] - 02/28/22 3:30 pm [facility], [NON-STAFF] - As Needed (AGENCY WILL CONTACT YOU.) Malinda Garza MD [STAFF PHYSICIAN] - 10 Days (OFFICE IS CLOSED AT TIME OF YOUR DISCHARGE, PLEASE CALL AND SCHEDULE APPOINTMENT.) Patient Instructions/Handouts: Heart Failure (DC), Urinary Tract Infection in Women (DC) Activity/Diet/Wound Care/Special Instructions: 1. Strict Non-weightbearing on the left lower extremity 2. Encouraged to use a walker or other aid to aid on mobilization 3. Encouraged to continue working with physical therapy to increase mobility and ambulation Discharge/Stand Alone Forms: Who Do I Call?, Community Resources Discharge Disposition: HOME SELF-CARE
== END 2022-02-10 18:02 | disposition home or self-care (01) | DRG 856 ==
LOC: EC 23:30 → 6NMEDSUR 02-03 04:49 → OBSVTOIN 02-03 11:24
PROVIDERS: ADMIT Hospitalist; ATTEND Hospitalist
PROC: 0K9 Muscles, Drainage (ICD-10-PCS; principal; 2022-02-06)
DX: T81.42XA Infection following a procedure, deep incisional surgical site, initial encounter (principal); A41.02 Sepsis due to Methicillin resistant Staphylococcus aureus; I50.33 Acute on chronic diastolic (congestive) heart failure; K27.4 Chronic or unspecified peptic ulcer, site unspecified, with hemorrhage; E44.1 Mild protein-calorie malnutrition; I48.11 Longstanding persistent atrial fibrillation; I48.92 Unspecified atrial flutter; L02.416 Cutaneous abscess of left lower limb; N39.0 Urinary tract infection, site not specified; T81.44XA Sepsis following a procedure, initial encounter; I11.0 Hypertensive heart disease with heart failure; D53.9 Nutritional anemia, unspecified; E03.9 Hypothyroidism, unspecified; D50.9 Iron deficiency anemia, unspecified; I08.3 Combined rheumatic disorders of mitral, aortic and tricuspid valves; F32.A Depression, unspecified; J44.9 Chronic obstructive pulmonary disease, unspecified; I49.5 Sick sinus syndrome; K22.2 Esophageal obstruction; R54 Age-related physical debility; K22.4 Dyskinesia of esophagus; F41.9 Anxiety disorder, unspecified; I25.10 Atherosclerotic heart disease of native coronary artery without angina pectoris; Z20.822 Contact with and (suspected) exposure to COVID-19; S72.22 Displaced subtrochanteric fracture of left femur; M25.511 Pain in right shoulder; M25.512 Pain in left shoulder; W19.XXXD Unspecified fall, subsequent encounter; B96.1 Klebsiella pneumoniae [K. pneumoniae] as the cause of diseases classified elsewhere; Y83.8 Other surgical procedures as the cause of abnormal reaction of the patient, or of later complication, without mention of misadventure at the time of the procedure; M54.9 Dorsalgia, unspecified; M15.9 Polyosteoarthritis, unspecified; M79.7 Fibromyalgia; M81.0 Age-related osteoporosis without current pathological fracture; Z95.0 Presence of cardiac pacemaker; I25.2 Old myocardial infarction; Z87.11 Personal history of peptic ulcer disease; Z79.890 Hormone replacement therapy; Z91.048 Other nonmedicinal substance allergy status; Z88.8 Allergy status to other drugs, medicaments and biological substances; Z88.1 Allergy status to other antibiotic agents; Z79.82 Long term (current) use of aspirin; Z79.899 Other long term (current) drug therapy; Z68.21 Body mass index [BMI] 21.0-21.9, adult
CPT/HCPCS: 20611; 71046; 72100; 73502; 80048; 80053; 80202; 81001; 82565; 82607; 82728; 83540; 83550; 83690; 83735; 84100; 84443; 84484; 85025; 85027; 85610; 85652; 86140; 87040; 87070; 87075; 87077; 87086; 87186; 87205; 87635; 93306; 94640

== ENCOUNTER 2022-04-04 15:34 | Emergency (ER) | payer MEDICARE, OTHER ==
[2022-04-04 16:07] VITALS: PULSE 120
--- NOTE | 2022-04-04 16:55 | XR ---
EXAMINATION TYPE: XR Hip Complete LT DATE OF EXAM: 04/04/2022 4:49 PM INDICATION: Patient age:Female; 76 years old; Reason for study: Hip pain; COMPARISON: 12/28/2021 TECHNIQUE: The left hip was examined in the frontal and lateral projections FINDINGS: Fracture of the proximal left femur with bony remodeling. Hardware is in place and appears in similar position when comparing to prior on 12/28/2021. No new acute fractures. Soft tissues are grossly unrem arkable. Large stool burden throughout the colon. IMPRESSION: Healing fracture of the left proximal femur with intramedullary thu in place. No evidence of new acu te fracture.
--- NOTE | 2022-04-04 17:59 | US ---
EXAMINATION TYPE: US venous doppler duplex LE LT DATE OF EXAM: 04/04/2022 5:19 PM COMPARISON: NONE CLINICAL HISTORY: Recent surgery. Pain left hip surgery in 11/2021. SIDE PERFORMED: Left TECHNIQUE: The lower extremity deep venous system is examined utilizing real time linear array sonog guillermina with graded compression, doppler sonography and color-flow sonography. VESSELS IMAGED: Common Femoral Vein Deep Femoral Vein Greater Saphenous Vein * Femoral Vein Popliteal Vein Small Saphenous Vein * Proximal Calf Veins (* superficial vessels) Left Leg: Negative for DVT Grayscale, color doppler, spectral doppler imaging performed of the deep veins of the lower extremiti es. There is normal flow, compressibility, vascular waveforms. Fluid pocket seen left hip area 1.8 x 1.2 cm which is anechoic. IMPRESSION: 1. No evidence of deep vein thrombosis of the left lower extremity. 2. Suspected postop seroma the surgical bed.
[2022-04-04] MEDS ORDERED: KETOROLAC 15 MG/ML 1 ML VIAL IM STA (18:11)
--- NOTE | 2022-04-04 18:27 | ED ---
General Adult HPI - General Chief complaint: Extremity Problem,Nontraumatic Stated complaint: r/o DVT Time Seen by Provider: 04/04/22 15:40 Source: patient, RN notes reviewed, old records reviewed Mode of arrival: EMS Limitations: no limitations - History of Present Illness Initial comments: This is a 76-year-old female who fractured her hip in November and had surgery by Dr. Lee. Patient states over the last 2 weeks she's had swelling to the lateral aspect of her left hip and severe pain it is very difficult to walk. Patient denies any fever chills. Patient denies any redness. Patient denies any other injury. Patient states she has noticed right where the swelling is is where the pain is significant. - Related Data Home Medications Medication Instructions Recorded Confirmed SUMAtriptan succinate [Imitrex] 50 mg PO BID PRN 02/15/16 02/03/22 Dicyclomine [Bentyl] 10 mg PO TID 05/10/19 02/03/22 L.acidoph,Paracasei, B.lactis 1 cap PO DAILY@1700 02/06/20 02/03/22 [Probiotic] allopurinoL [Zyloprim] 50 mg PO DAILY 02/06/20 02/03/22 Metoprolol Tartrate [Lopressor] 50 mg PO BID 10/05/20 02/03/22 Albuterol Inhaler [Ventolin Hfa 2 puff INHALATION RT-Q4H PRN 08/04/21 02/03/22 Inhaler] Spironolactone [Aldactone] 25 mg PO DAILY 08/04/21 02/03/22 Diclofenac Sodium [Voltaren] 75 mg PO BID 12/09/21 02/03/22 Ergocalciferol [Vitamin D2 (1250 1,250 mcg PO FR 12/09/21 02/03/22 Mcg = 48813 Iu)] Levothyroxine Sodium 100 mcg PO DAILY@0600 12/09/21 02/03/22 Magnesium Gluconate [Magonate] 750 mg PO DAILY@1700 12/09/21 02/03/22 calcitrioL [Calcitriol] 0.25 mcg PO FR 12/09/21 02/03/22 hydrOXYzine HCL [Atarax] 25 mg PO Q6H PRN 12/09/21 02/03/22 Pantoprazole [Protonix] 40 mg PO BID@0800,1700 12/27/21 02/03/22 Triamcinolone 0.5% Ointment 1 applic TOPICAL BID 12/27/21 02/03/22 Amiodarone [Cordarone] 200 mg PO DAILY 02/03/22 02/03/22 Amitriptyline HCl [Elavil] 25 mg PO HS 02/03/22 02/03/22 Aspirin EC [Ecotrin Low Dose] 81 mg PO DAILY 02/03/22 02/03/22 Denosumab [Prolia] 60 mg SQ Q180D 02/03/22 02/03/22 Furosemide [Lasix] 80 mg PO AC-BID 02/03/22 02/03/22 HYDROcodone/APAP 5-325MG [[place] 1 tab PO BID PRN 02/03/22 02/03/22 5-325] Loratadine [Claritin] 5 mg PO BID PRN 02/03/22 02/03/22 Potassium Chloride ER [K-Dur 10] 40 meq PO BID-W/MEALS 02/03/22 02/03/22 polyethylene glycoL 3350 [Miralax] 17 gm PO DAILY 02/03/22 02/03/22 Previous Rx's Medication Instructions Recorded cefUROXime axetiL [Ceftin] 500 mg PO BID #20 tab 02/10/22 Allergies Allergy/AdvReac Type Severity Reaction Status Date / Time adhesive Allergy RASH FROM Verified 02/03/22 06:24 EKG STICKERS apixaban [From Eliquis] Allergy Rash/Hives Verified 02/03/22 06:24 celecoxib [From Celebrex] Allergy Rash/Hives Verified 02/03/22 06:24 sertraline HCl [From Zoloft] Allergy Rash/Hives Verified 02/03/22 06:24 sulfamethoxazole Allergy Anaphylaxis Verified 02/03/22 06:24 [From Bactrim] trimethoprim [From Bactrim] Allergy Anaphylaxis Verified 02/03/22 06:24 cholestyramine AdvReac DIZZY/CONFU Verified 02/03/22 06:24 SED Review of Systems ROS Statement: Those systems with pertinent positive or pertinent negative responses have been documented in the HPI. ROS Other: All systems not noted in ROS Statement are negative. Past Medical History Past Medical History: Atrial Fibrillation, Blood Disorder, Coronary Artery Disease (CAD), Chest Pain / Angina, COPD, Fibromyalgia, GERD/Reflux, GI Bleed, Hypertension, Myocardial Infarction ([place]), Musculoskeletal Disorder, O steoarthritis (OA), Thyroid Disorder Additional Past Medical History / Comment(s): Pacemaker for Syncope/Tachybrady Syndrome. Hx RHEUMATIC FEVER. Heart murmur, chronic back and bilateral shoulder pain. SEVERE OSTEOPROSIS, Vertigo, Degenerative Joint Disease, GI ulcers, esophagitis/esophageal stricture, partially blocked bile duct, PROBLEMS WITH SWALLOWING, "no symptoms of COPD." FALLS "Cannot lie down for long without having back pain.". Left hip open reduction internal fixation of some trochanteric comminuted femur fracture in November 2021 Last Myocardial Infarction Date:: 2002 History of Any Multi-Drug Resistant Organisms: None Reported Past Surgical History: Appendectomy, Cardiac Ablation, Cholecystectomy, Ear Surgery, Heart Catheterization, Hysterectomy, Orthopedic Surgery, Pacemaker, Tonsillectomy Additional Past Surgical History / Comment(s): ORIF LEFT LOWER ARM, HAS HARDWARE, numerous DILATATION OF ESOPHAGUS, biopsies were negative, colonoscopy, Pacemaker (ADAPTA) placed 07/07 at [facility], bilateral stapedectomies(stainless steel in both ears), Hiatal Hernia repair, inguinal and femoral hernia repairs, "cement placed in back, due to broken back/pelvis". Left Femur Surgery 12/09/21 Past Anesthesia/Blood Transfusion Reactions: Family History of Problems w/ Anesthesia, Motion Sickness, Postoperative Nausea & Vomiting (PONV) Additional Past Anesthesia/Blood Transfusion Reaction / Comment(s): No problems with prior blood transfusion. BROTHER HAS PONV. Type of Cardiac Device: Permanent Pacemaker Device Placement Date:: 06/2016 Past Psychological History: No Psychological Hx Reported Smoking Status: Never smoker Past Alcohol Use History: None Reported Past Drug Use History: None Reported - Past Family History Brother(s) Family Medical History: Cancer Additional Family Medical History / Comment(s): Throat cancer. Father Family Medical History: Pneumonia Additional Family Medical History / Comment(s): EMPHYSEMA. Mother Family Medical History: COPD, Rheumatoid Arthritis (RA) Additional Family Medical History / Comment(s): EMPHYSEMA. General Exam - General Exam Comments Initial Comments: Quick physical exam patient has swelling to the lateral aspect of the left hip and it is very tender to palpation. There is no redness or warmth. Patient also has tenderness in the distal posterior thigh. Limitations: no limitations Course Vital Signs 04/04/22 16:03 Temperature 98 F Pulse Rate 120 H Respiratory 20 Rate Blood Pressure 104/52 O2 Sat by Pulse 100 Oximetry Medical Decision Making - Medical Decision Making Ultrasound of the leg showed no DVT. The ultrasound did show a seroma at the lateral hip. X-ray of the hip was interpreted by me. X-ray showed a healing fracture. I spoke with Dr. She[facility] from [facility] he stated that the patient be discharged home and follow-up with orthopedics in the next day or 2 patient should apply ice to the area and use crutches or walker so that it doesn't further irritate the area. Disposition Clinical Impression: Acute postoperative pain of left hip Disposition: HOME SELF-CARE Is patient prescribed a controlled substance at d/c from ED?: No Referrals: Ivory Lee DO [Doctor of Osteopathic Medicine] - 1-2 days Time of Disposition: 19:21
[2022-04-04] MEDS ORDERED: HYDROmorphone 0.5 MG/0.5 ML SYRINGE IM STA (18:53)
[2022-04-04 19:39] VITALS: BP 106/61; RESP 16; TEMP 98.6
== END 2022-04-04 19:39 | disposition home or self-care (01) ==
LOC: EC 15:34
DX: G89.18 Other acute postprocedural pain (principal); M25.552 Pain in left hip; I48.91 Unspecified atrial fibrillation; I25.10 Atherosclerotic heart disease of native coronary artery without angina pectoris; J44.9 Chronic obstructive pulmonary disease, unspecified; K21.9 Gastro-esophageal reflux disease without esophagitis; I25.2 Old myocardial infarction; I10 Essential (primary) hypertension; M19.90 Unspecified osteoarthritis, unspecified site; E07.9 Disorder of thyroid, unspecified; Z79.899 Other long term (current) drug therapy; Z79.82 Long term (current) use of aspirin; Z79.890 Hormone replacement therapy; Z79.891 Long term (current) use of opiate analgesic; Z88.1 Allergy status to other antibiotic agents; Z88.2 Allergy status to sulfonamides; Z88.6 Allergy status to analgesic agent; Z91.09 Other allergy status, other than to drugs and biological substances; Z88.8 Allergy status to other drugs, medicaments and biological substances
CPT/HCPCS: 73502; 93971; 99284; 96372 ×2; J1885; J1170

== ENCOUNTER 2022-05-03 14:38 | Observation (INO) | payer MEDICARE, OTHER ==
[~2022-05-03 14:38] MED LIST changes: +DEXAMETHASONE SOD PHOSPHATE 4 MG/ML 1 ML VIAL IV ONE; -LACTATED RINGERS 1,000 ML IV SCH; +LIDOCAINE 1% (10MG/ML) FOR IV START INTRADERMA PRN; +ONDANSETRON 4 MG/2 ML VIAL IVP ONE
[2022-05-03] MEDS: LACTATED RINGERS 1,000 ML IV SCH (15:41)
[2022-05-03 15:50] LABS: Prothrombin Time 10.4 sec (9.0-12.0)
[2022-05-03 15:55] LABS: Anisocytosis Slight; Basophils # (A) 0.1 k/uL (0-0.2); Basophils % (A) 1 %; Eosinophils # (A) 0.2 k/uL (0-0.7); Eosinophils % (A) 3 %; HCT 37.3 % (34.0-46.0); HGB 11.2 gm/dL (11.4-16.0); Hypochromasia Marked; Lymphocytes # (A) 0.9 k/uL (1.0-4.8); Lymphocytes % (A) 12 %; MCH 26.1 pg (25.0-35.0); Monocytes # (A) 0.4 k/uL (0-1.0); Monocytes % (A) 4 %; Neutrophils # (A) 6.2 k/uL (1.3-7.7); Neutrophils % (A) 78 %; Platelet Count 359 k/uL (150-450); Poikilocytosis Moderate; RBC 4.29 m/uL (3.80-5.40); RDW 16.7 % (11.5-15.5); WBC 7.9 k/uL (3.8-10.6)
[2022-05-03] MEDS ORDERED: fentaNYL (PF) 50 MCG/1 ML VIAL IV ONE (15:59)
[2022-05-03 16:00] LABS: Albumin 4.3 g/dL (3.5-5.0); Calcium 9.2 mg/dL (8.4-10.2); Potassium 4.6 mmol/L (3.5-5.1); Total Bilirubin 0.5 mg/dL (0.2-1.3); Total Protein 7.9 g/dL (6.3-8.2)
[2022-05-03] MEDS ORDERED: PHENYLEPHRINE-0.9% NACL SYG 1,000 MCG/10 ML SYRINGE ONE (17:36)
[2022-05-03] MEDS ORDERED: LIDOCAINE 2% INJ 20 MG/ML (2 ML VIAL) ONE (17:36)
[2022-05-03] MEDS ORDERED: ROCURONIUM 10 MG/ML (5 ML VIAL) IV ONE (17:36)
[2022-05-03] MEDS ORDERED: fentaNYL (PF) 50 MCG/ML 2 ML AMP ONE (17:36)
[2022-05-03] MEDS ORDERED: PROPOFOL 10 MG/ML 20 ML VIAL IV ONE (17:36)
[2022-05-03] MEDS ORDERED: SUCCINYLCHOLINE CHLORIDE 200 MG/10 ML VIAL IV ONE (17:36)
[2022-05-03] MEDS ORDERED: GLYCOPYRROLATE 0.2 MG/ML 2 ML VIAL ONE (17:36)
[2022-05-03] MEDS ORDERED: NEOSTIGMINE 1 MG/ML 10 ML VIAL ONE (17:36)
[2022-05-03] MEDS ORDERED: BUPIVACAIN-EPI 0.25%-1:200,000 30 ML VIAL SQ ONE ×2 (18:08)
[2022-05-03] MEDS ORDERED: BENZOCAINE/MENTHOL LOZENG 1 EACH LOZENGE MUCOUS MEM PRN (18:34)
--- NOTE | 2022-05-03 18:34 | FL ---
Intraoperative/procedural fluoroscopic services were provided. Total fluoroscopy time is 8 seconds wi th a total of 4 submitted images to PACS. Please see the operative/procedural note for further detail s.
[2022-05-03] MEDS ORDERED: ONDANSETRON 4 MG/2 ML VIAL IVP PRN (18:35)
[2022-05-03] MEDS ORDERED: NALOXONE 0.4 MG/ML 1 ML VIAL IV PRN (18:35)
[2022-05-03] MEDS ORDERED: ALBUTEROL HFA INHALER INHALATION PRN (18:37)
[2022-05-03] MEDS ORDERED: LORATADINE 10 MG TAB PO PRN (18:37)
[2022-05-03] MEDS ORDERED: SUMAtriptan succinate 50 MG TAB PO PRN (18:37)
[2022-05-03] MEDS ORDERED: HYDROcodone/APAP 5-325MG 1 EACH TAB PO PRN (18:37)
[2022-05-03] MEDS ORDERED: hydrOXYzine HCL 25 MG TAB PO PRN (18:37)
--- NOTE | 2022-05-03 18:52 | P.OP ---
Date of Procedure: 05/03/22 Preoperative Diagnosis: Irritating hardware left hip status post intramedullary hip screw for a comminuted reverse obliquity proximal pole femur subtrochanteric fracture Left hip pain due to the irritating hardware Retained hardware status post internal fixation of proximal femur fracture Postoperative Diagnosis: Same Plus evidence of trochanteric bursitis and reactive seroma due to the irritating hardware Anesthesia: GETA Pathology: none sent Condition: stable Disposition: PACU Description of Procedure: Preoperative diagnosis: Irritating hardware left hip status post intramedullary hip screw for a comminuted reverse obliquity proximal pole femur subtrochanteric fracture Left hip pain due to the irritating hardware Retained hardware status post internal fixation of proximal femur fracture Postoperative diagnosis: Same plus reactive bursitis and seroma due to the irritating hardware Procedure: Removal of internal fixation left proximal femur, deep lag screw and locking compression screw Exchange of hardware and Placement of proximal lag screw at the femoral neck and head and locking compression screw Use of fluoroscopic guidance Irrigation and debridement of seroma Surgeon: Dr. Jesus Holguin.: Nate Schafer who is present that the entire the case persistence during positioning dissection exposure placement of hardware and closure Anesthesia: Gen. Estimated blood loss: Approximately 100 mL Components implanted: [employer] 75 mm lag screw and 70 mm locking compression screw with removal of 105 mm lag screw and 100 millimeter locking compression screw Disposition: To recovery room in good stable condition Operative indications The patient sustained a injury and suffered a hip fracture at the inter- trochanteric area of her femur approximately 4 months ago which was displaced and angulated with comminution at the subtrochanteric area with reverse obliquity orientation. We were involved in the case in regard to his hip fracture. The patient ultimately underwent internal fixation with reduction of the fracture. She has remained nonweightbearing for a period of time and then was able to advance to weightbearing as tolerated where she is now. She's been having trouble over her left hip and over time she has had compression across the fracture site which led to some exposure and telescoping of the screw within the thu at the proximal femur. The lag screw and lag screw were becoming prominent at the proximal lateral femur and causing significant pain directly over the proud hardware space. She had some fluctuance without any evidence of infection. We had regular evaluation of her and felt that she could do well with exchanging hardware for a shorter screws at the proximal femur so that it wouldn't be proud laterally. We discussed the possibly of removal of the hardware altogether consulted immediately for femur somewhat ballotable and felt that she would be better protected with exchange of the hardware. After evaluation it was determined that they would be a candidate for removal of hip internal fixation and exchange of the hardware via surgical intervention. This would give them the best chance of mobilization and ambulation and take the pressure off of the lateral soft tissues where she was developing and tenderness and recurrent bursitis. We discussed the range of treatment options from conservative to surgical. They elected proceed with surgical intervention. I also spoke with the patient's position as the patient did have some anemia which had been treated appropriately prior to her surgery. We felt that the patient would be safe for proceeding with surgical intervention as explained. We answered their questions to the best of our ability healing which they can understand. They signed an informed consent. Operative summary After obtaining informed consent evaluation by anesthesia, preoperative evaluation and clearance for medical service, the patient was identified and prepped [place] area and the surgical site was marked. There brought to the operating room where the given appropriate anesthesia by the anesthesia department in standard fashion without any complications. Once the anesthesia was established we were able to position the patient. The patient was placed on a fracture table with a well-padded perineal post. The operative side was placed in a foot cotto stirrup which was well-padded well molded and placed in gentle in-line traction. The nonoperative leg was placed in a padded stirrup. C-arm was brought in and we're able to easily identify the hardware. The patient is very slight I was able to easily palpate the lateral aspect of the proud hardware at the lag screw. The prior incision was identified and a medial incision over the prior incision over the lateral aspect of the lag screw. There was evidence of obvious bursal thickening and there was serous fluid within the trochanteric bursa. I was able to remove portions of the trochanteric bursae and do irrigation and debridement of the bursal sac. There is no evidence of any purulence. There is no pus. I was able to easily identify the lateral aspect of the lag screw and locking compression screw. These were exposed easily. I was able place a guidewire and the appropriate church secretary into the lag screw. With this in place I then was able to remove the locking impression screw which was removed easily and found to be in total. I was unable to remove the lag screw itself which was removed in total and as able to remove it well. Images were taken which showed evidence of stability at the fractures without any displacement. I felt that he would be safest to replace the hardware with shorter lag screws and we measured for the appropriate size length screws and locking screws. Over the guidewire was able place a 75 mm lag screw which had good fill and good bite within the femoral head being careful to the femoral head. The locking compression screws also placed had good purchase. Hardware did not have seen him prominence lateral to the lateral aspect of the femur. I felt that had better position with the hardware without irritation of the soft tissues. Images were taken showed good alignment of the fractures with the hardware in good position. There was no evidence of any new fractures or loosening of hardware. The wound is completely irrigated and suctioned dry and we proceed with closure. The fascial layers closed with #1 Vicryl. Subcu tissue was closed with Vicryl subcuticular tissue closed with 4-0 Vicryl. Wounds clean and dried and infiltrated with local anesthetic and the skin was glued with excellent clinical and a waterproof dressing. Drapes were broken down, the hip was held in stable position with the post being removed safely once the positioning was stabilized. The patient was then transferred back to their hospital bed being careful to maintain the hip and C- spine alignment and airway. Once stable to patient was transferred back to the postanesthesia care unit to be readmitted for pain control and DVT prophylaxis medical management and monitoring and mobilization we will continue follow patient closely throughout their postoperative course.
[2022-05-03] MEDS: HYDROmorphone 0.5 MG/0.5 ML SYRINGE IVP PRN ×4 (19:07→22:28)
[2022-05-03] MEDS: HYDROcodone/APAP 5-325MG 1 EACH TAB PO PRN (20:31)
[2022-05-03] MEDS ORDERED: AMITRIPTYLINE HCL 25 MG TAB PO SCH (21:00)
[2022-05-03] MEDS: ETODOLAC 400 MG TAB PO SCH (21:58)
[2022-05-03] MEDS: DICYCLOMINE 10 MG CAP PO SCH (21:58)
[2022-05-03] MEDS: METOPROLOL TARTRATE 50 MG TAB PO SCH (21:59)
[2022-05-03] MEDS: SODIUM CHLORIDE 0.9% 1,000 ML IV SCH (21:59)
[2022-05-03] MEDS ORDERED: TEMAZEPAM 15 MG CAP PO ONE (23:16)
[2022-05-04] MEDS: HYDROcodone/APAP 5-325MG 1 EACH TAB PO PRN ×3 (03:31→15:38)
[2022-05-04] MEDS ORDERED: LEVOTHYROXINE 100 MCG TAB PO SCH (06:00)
[2022-05-04] MEDS: LACTATED RINGERS 1,000 ML IV SCH (06:23)
[2022-05-04] MEDS: FUROSEMIDE 40 MG TAB PO SCH ×2 (06:29→16:24)
[2022-05-04] MEDS: POTASSIUM BICARBONATE/CIT AC 20 MEQ TABLET.EFF PO SCH ×2 (06:29→16:24)
[2022-05-04] MEDS: PANTOPRAZOLE 40 MG TABLET PO SCH ×2 (07:15→16:25)
[2022-05-04] MEDS: ETODOLAC 400 MG TAB PO SCH (07:15)
[2022-05-04] MEDS: HYDROmorphone 0.5 MG/0.5 ML SYRINGE IVP PRN (07:52)
[2022-05-04] MEDS ORDERED: polyethylene glycoL 3350 17 GM POWD.PACK PO SCH (09:00)
[2022-05-04] MEDS ORDERED: SPIRONOLACTONE 25 MG TAB PO SCH (09:00)
[2022-05-04] MEDS ORDERED: AMIODARONE 200 MG TAB PO SCH (09:00)
[2022-05-04] MEDS ORDERED: allopurinoL 100 MG TAB PO SCH (09:00)
[2022-05-04] MEDS ORDERED: SENNOSIDES-DOCUSATE SODIUM 1 EACH TAB PO SCH (09:00)
[2022-05-04] MEDS: DICYCLOMINE 10 MG CAP PO SCH ×2 (10:23→16:24)
[2022-05-04] MEDS: METOPROLOL TARTRATE 50 MG TAB PO SCH (10:25)
--- NOTE | 2022-05-04 11:17 | P.DS ---
Providers Date of admission: 05/04/22 08:21 Attending physician: Ivory Lee Primary care physician: Stated None Hospital Course: The patient presented on the day of admission as per their operative note. She had removal of irritating hardware with replacement of internal fixation at the left hip. She feels she is doing better in terms of her hip already. She feels it more comfortable and less swollen for her. She has been ambulatory with assistance and her room. She is voiding freely. She is tolerating her regular diet. Physical Exam The incision site is clean dry and intact. There is no erythema no drainage. There is no purulence no evidence of infection. There is no significant swelling. It is less tender. The dressings intact Abdomen soft and nontender. Chest has good excursion with deep inspiration and expiration. The patient has active and passive range of motion intact at the upper and lower extremities. There is no acute change in neurologic status. She has sustained dorsal flexion plantarflexion and EHL intact Hospital Course Postoperative day #1 status post removal of deep internal fixation of left femur with exchange and replacement of new hardware at the left femur and excision of trochanteric bursa. The patient is doing well and The patient has been making good progress postoperatively. I think her hip is making progress and should continue to improve. We need to try to keep it from swelling and this could be helped with ice over the area at least 3 times a day for approximately 20 minutes at a time They have completed the prophylactic antibiotics without any signs or symptoms of infection. The patient has been able to advance their diet, and is tolerating diet adequately. The pain was initially controlled with IV medications and is now controlled appropriately with oral medications. The pa eva has been able to increase their mobilization. The patient has progressed appropriately. I think they are in good stable condition for discharge today. They will be sent home with appropriate p rescriptions. I answered their questions to the best of my ability in a language that they can understand and they are agreeable with the plan. They will follow up as directed. Patient Condition at Discharge: Good Plan - Discharge Summary Discharge Rx Participant: No New Discharge Prescriptions: No Action SUMAtriptan succinate [Imitrex] 50 mg PO BID PRN PRN Reason: Migraine Headache Dicyclomine [Bentyl] 10 mg PO TID L.acidoph,Paracasei, B.lactis [Probiotic] 1 cap PO DAILY@1700 allopurinoL [Zyloprim] 50 mg PO DAILY Metoprolol Tartrate [Lopressor] 50 mg PO BID Diclofenac Sodium [Voltaren] 75 mg PO BID Ergocalciferol [Vitamin D2 (1250 Mcg = 74641 Iu)] 1,250 mcg PO FR Magnesium Gluconate [Magonate] 750 mg PO DAILY@1700 Triamcinolone 0.5% Ointment 1 applic TOPICAL BID Loratadine [Claritin] 5 mg PO BID PRN PRN Reason: Itching polyethylene glycoL 3350 [Miralax] 17 gm PO DAILY Amiodarone [Cordarone] 200 mg PO DAILY Albuterol Inhaler [Ventolin Hfa Inhaler] 2 puff INHALATION RT-Q4H PRN PRN Reason: Shortness Of Breath Spironolactone [Aldactone] 25 mg PO DAILY calcitrioL [Calcitriol] 0.25 mcg PO FR hydrOXYzine HCL [Atarax] 25 mg PO Q6H PRN PRN Reason: Itching Levothyroxine Sodium 100 mcg PO DAILY@0600 Pantoprazole [Protonix] 40 mg PO BID@0800,1700 Amitriptyline HCl [Elavil] 25 mg PO HS Furosemide [Lasix] 80 mg PO AC-BID HYDROcodone/APAP 5-325MG [[place] 5-325] 1 tab PO BID PRN PRN Reason: Pain Potassium Chloride ER [K-Dur 10] 40 meq PO BID-W/MEALS Discharge Medication List SUMAtriptan succinate [Imitrex] 50 mg PO BID PRN 02/15/16 [History] Dicyclomine [Bentyl] 10 mg PO TID 05/10/19 [History] L.acidoph,Paracasei, B.lactis [Probiotic] 1 cap PO DAILY@1700 02/06/20 [History] allopurinoL [Zyloprim] 50 mg PO DAILY 02/06/20 [History] Metoprolol Tartrate [Lopressor] 50 mg PO BID 10/05/20 [History] Albuterol Inhaler [Ventolin Hfa Inhaler] 2 puff INHALATION RT-Q4H PRN 08/04/21 [History] Spironolactone [Aldactone] 25 mg PO DAILY 08/04/21 [History] Diclofenac Sodium [Voltaren] 75 mg PO BID 12/09/21 [History] Ergocalciferol [Vitamin D2 (1250 Mcg = 61347 Iu)] 1,250 mcg PO FR 12/09/21 [History] Levothyroxine Sodium 100 mcg PO DAILY@0600 12/09/21 [History] Magnesium Gluconate [Magonate] 750 mg PO DAILY@1700 12/09/21 [History] calcitrioL [Calcitriol] 0.25 mcg PO FR 12/09/21 [History] hydrOXYzine HCL [Atarax] 25 mg PO Q6H PRN 12/09/21 [History] Pantoprazole [Protonix] 40 mg PO BID@0800,1700 12/27/21 [History] Triamcinolone 0.5% Ointment 1 applic TOPICAL BID 12/27/21 [History] Amiodarone [Cordarone] 200 mg PO DAILY 02/03/22 [History] Amitriptyline HCl [Elavil] 25 mg PO HS 02/03/22 [History] Furosemide [Lasix] 80 mg PO AC-BID 02/03/22 [History] HYDROcodone/APAP 5-325MG [[place] 5-325] 1 tab PO BID PRN 02/03/22 [History] Loratadine [Claritin] 5 mg PO BID PRN 02/03/22 [History] Potassium Chloride ER [K-Dur 10] 40 meq PO BID-W/MEALS 02/03/22 [History] polyethylene glycoL 3350 [Miralax] 17 gm PO DAILY 02/03/22 [History]
[2022-05-04 14:01] VITALS: BP 117/63; PULSE 76; RESP 18; TEMP 98.3
[2022-05-04 14:32] VITALS: BMI 19.1
[2022-05-04] MEDS: SODIUM CHLORIDE 0.9% 1,000 ML IV SCH (16:18)
[2022-05-04] MEDS ORDERED: MAGNESIUM OXIDE 400 MG TAB PO SCH (17:00)
[2022-05-04] MEDS ORDERED: LACTOBACILLUS ACIDOPH & BULGAR 1 EACH PACKET PO SCH (17:00)
[2022-05-05] MEDS ORDERED: ERGOCALCIFEROL 1,250 MCG (50,000 IU) CAPSULE PO SCH (18:37)
== END 2022-05-04 17:59 | disposition home or self-care (01) ==
LOC: OR 14:38 → 4SSUR 19:00 → OR 05-04 08:21
PROVIDERS: ADMIT Orthopaedic Surgery Orthopaedic Surgery of the Spine; ATTEND Orthopaedic Surgery Orthopaedic Surgery of the Spine
DX: T84.84XA Pain due to internal orthopedic prosthetic devices, implants and grafts, initial encounter (principal); M70.62 Trochanteric bursitis, left hip; L76.34 Postprocedural seroma of skin and subcutaneous tissue following other procedure; I11.9 Hypertensive heart disease without heart failure; M81.0 Age-related osteoporosis without current pathological fracture; M19.90 Unspecified osteoarthritis, unspecified site; M79.7 Fibromyalgia; E03.9 Hypothyroidism, unspecified; J44.9 Chronic obstructive pulmonary disease, unspecified; D64.9 Anemia, unspecified; I48.11 Longstanding persistent atrial fibrillation; I25.10 Atherosclerotic heart disease of native coronary artery without angina pectoris; I25.2 Old myocardial infarction; N28.9 Disorder of kidney and ureter, unspecified; I77.6 Arteritis, unspecified; K21.9 Gastro-esophageal reflux disease without esophagitis; H91.90 Unspecified hearing loss, unspecified ear; Z95.0 Presence of cardiac pacemaker; R00.2 Palpitations; Z87.11 Personal history of peptic ulcer disease; R06.02 Shortness of breath; Z90.710 Acquired absence of both cervix and uterus; Z90.49 Acquired absence of other specified parts of digestive tract; Z98.890 Other specified postprocedural states; Z97.2 Presence of dental prosthetic device (complete) (partial); Z87.891 Personal history of nicotine dependence; Z79.890 Hormone replacement therapy; Z79.891 Long term (current) use of opiate analgesic; Z79.899 Other long term (current) drug therapy; Z88.6 Allergy status to analgesic agent; Z88.2 Allergy status to sulfonamides; Z88.8 Allergy status to other drugs, medicaments and biological substances; Z91.09 Other allergy status, other than to drugs and biological substances
CPT/HCPCS: 97162; 97166; 80053; 85025; 85610; 73502; 20680; 27599; G0378; C1713; J0330; J1100; J2710; J2405 ×2; J0690 ×2; J3010 ×2; J2370; J2704; J1170 ×2; J2001

== ENCOUNTER 2022-09-20 18:48 | Emergency (ER) | payer OTHER ==
[2022-09-20] MEDS ORDERED: MORPHINE SULFATE 4 MG/ML SYRINGE IM STA (19:50)
--- NOTE | 2022-09-20 20:24 | CT ---
EXAMINATION TYPE: CT brain cspine wo con CT DLP: 1208.9 mGycm, Automated exposure control for dose reduction was used. DATE OF EXAM: 09/20/2022 8:13 PM COMPARISON: CT brain C-spine 01/14/2018. CLINICAL INDICATION:Female, 76 years old with history of Left arm weakness; c/o weakness TECHNIQUE: Brain: Multiple axial CT images of the brain were obtained without IV contrast. Cspine: Axial CT images from the skull base to the inferior aspect of T2 we obtained without intraven ous contrast. Coronal and sagittal reformatted images were also reviewed. FINDINGS: Brain: Extra-axial spaces: No abnormal extra-axial fluid collections. Ventricular system: Within normal limits Cerebral parenchyma: Cerebral atrophy. No acute intraparenchymal hemorrhage or mass effect. The finn -white junction is well differentiated. Scattered hypoattenuating areas are seen within the white mat ter. Cerebellum: Unremarkable. Mass effect: No evidence of midline shift. Intracranial vasculature: Atherosclerotic calcifications of the intracranial vessels. Soft tissues: Normal. Calvarium/osseous structures: No depressed skull fracture. Paranasal sinuses and mastoid air cells: Clear. Visualized orbits: Orbital contents are intact. Cervical spine: Fracture: None. Osseous structures: Multilevel degenerative disc disease changes with endplate spurring and disc oste ophyte complex's. Vertebral alignment: Redemonstrated grade 1 anterolisthesis of C3 and C4 and C4 on C5. Spinal canal/Neural Foramina: Disc osteophyte complexes at C3-C4 and C5-C6 and C6-C7 with at least mi ld spinal canal stenosis. Facet joint uncovertebral joint arthropathy scattered throughout the cervic al spine with varying degrees of neural foraminal stenosis. This is most prominent on the left at C5- C6 secondary to facet arthropathy and uncovertebral joint hypertrophy. Neck soft tissues: Prevertebral soft tissues are within normal limits. Other: The airway is patent. The lung apices are clear. The sclerotic calcification of the bilateral carotid bulbs. IMPRESSION: 1. No acute intracranial process. 2. Nonspecific white matter changes, likely secondary to chronic small vessel ischemic disease. 3. No evidence of cervical spine fracture. 4. Moderate multilevel degenerative disc disease as described above.
[2022-09-20 21:36] LABS: Albumin 4.2 g/dL (3.5-5.0); Magnesium 2.3 mg/dL (1.6-2.3); Potassium 4.2 mmol/L (3.5-5.1); Total Bilirubin 0.2 mg/dL (0.2-1.3); Total Protein 7.5 g/dL (6.3-8.2)
[2022-09-20 21:53] LABS: HCT 29.9 % (34.0-46.0); HGB 9.3 gm/dL (11.4-16.0); Hypochromasia Marked; MCHC 30.9 g/dL (31.0-37.0); MCV 87.2 fL (80.0-100.0); Platelet Count 329 k/uL (150-450); RBC 3.43 m/uL (3.80-5.40); RDW 15.4 % (11.5-15.5); WBC 5.5 k/uL (3.8-10.6)
[2022-09-20 22:15] LABS: Eosinophils # (M) 0.17 k/uL (0-0.7); Neutrophils # (M) 3.74 k/uL (1.3-7.7); Neutrophils % (M) 68 %; Nucleated Red Blood Cells 0 /100 WBC (0-0); Target Cells Present; Total Cells Counted 100
[2022-09-20 22:23] LABS: Ovalocytes Present
--- NOTE | 2022-09-20 22:27 | ED ---
General Adult HPI - General Chief complaint: Weakness Stated complaint: neuro issues Time Seen by Provider: 09/20/22 19:33 Source: patient Mode of arrival: ambulatory Limitations: no limitations - History of Present Illness Initial comments: This patient is 76-year-old woman who was referred here by her physician to have probable computed tomography scan in relation to some left sided numbness mainly of the left arm but also into the peroneal/genital area. In addition, the patient was having some weakness with the left arm. The symptoms have been going on and over 3 weeks probably one month now. In addition it does sound like there is some generalized weakness and fatigue. -: week(s) Severity scale (1-10): 0 Consistency: constant Improves with: none Worsens with: none Associated Symptoms: weakness - Related Data Home Medications Medication Instructions Recorded Confirmed SUMAtriptan succinate [Imitrex] 50 mg PO BID PRN 02/15/16 09/20/22 L.acidoph,Paracasei, B.lactis 1 cap PO DAILY 02/06/20 09/20/22 [Probiotic] Metoprolol Tartrate [Lopressor] 50 mg PO DAILY 10/05/20 09/20/22 Spironolactone [Aldactone] 25 mg PO DAILY 08/04/21 09/20/22 Pantoprazole [Protonix] 40 mg PO BID 12/27/21 09/20/22 Amiodarone [Cordarone] 200 mg PO DAILY 02/03/22 09/20/22 Furosemide [Lasix] 80 mg PO AC-BID 02/03/22 09/20/22 Potassium Chloride ER [K-Dur 10] 40 meq PO BID-W/MEALS 02/03/22 09/20/22 Acetaminophen [Tylenol Extra 1,000 mg PO QID PRN 09/20/22 09/20/22 Strength] Buprenorphine [Butrans 10 MCG/HOUR] 1 patch TRANSDERM TH 09/20/22 09/20/22 Doxepin HCl 3 mg PO HS 09/20/22 09/20/22 Furosemide [Lasix] 40 mg PO BID PRN 09/20/22 09/20/22 Levothyroxine Sodium [Synthroid] 88 mcg PO DAILY 09/20/22 09/20/22 Mupirocin 2% Oint [Bactroban 2% 1 applic TOPICAL BID 09/20/22 09/20/22 Oint] Ondansetron [Zofran] 4 mg PO Q8HR PRN 09/20/22 09/20/22 Sennosides [Senokot] 8.6 mg PO DAILY 09/20/22 09/20/22 Triamcinolone 0.5% Cream [Kenalog 1 applic TOPICAL DAILY 09/20/22 09/20/22 0.5% Cream] dilTIAZem HCL 60 mg PO TID 09/20/22 09/20/22 hydrOXYzine pamoate [Vistaril] 25 mg PO Q6H PRN 09/20/22 09/20/22 Previous Rx's Medication Instructions Recorded HYDROcodone/APAP 5-325MG [[place] 1 tab PO Q6HR PRN 7 Days #28 tab 05/04/22 5-325] Allergies Allergy/AdvReac Type Severity Reaction Status Date / Time adhesive Allergy RASH FROM Verified 09/20/22 21:57 EKG STICKERS apixaban [From Eliquis] Allergy Rash/Hives Verified 09/20/22 21:57 celecoxib [From Celebrex] Allergy Rash/Hives Verified 09/20/22 21:57 sertraline HCl [From Zoloft] Allergy Rash/Hives Verified 09/20/22 21:57 sulfamethoxazole Allergy Anaphylaxis Verified 09/20/22 21:57 [From Bactrim] trimethoprim [From Bactrim] Allergy Anaphylaxis Verified 09/20/22 21:57 cholestyramine AdvReac DIZZY/CONFU Verified 09/20/22 21:57 SED Review of Systems ROS Statement: Those systems with pertinent positive or pertinent negative responses have been documented in the HPI. ROS Other: All systems not noted in ROS Statement are negative. Constitutional: Reports: weakness. Denies: fever, chills Eyes: Denies: vision change Respiratory: Denies: cough, dyspnea Cardiovascular: Denies: chest pain, palpitations, edema, syncope Gastrointestinal: Denies: abdominal pain, vomiting, diarrhea, melena, hematochezia Genitourinary: Denies: dysuria, hematuria Musculoskeletal: Denies: back pain Skin: Denies: rash Neurological: Reports: numbness. Denies: headache, weakness Past Medical History Past Medical History: Atrial Fibrillation, Blood Disorder, Coronary Artery Disease (CAD), Chest Pain / Angina, Heart Failure, COPD, CVA/TIA, Fibromyalgia, GERD/Reflux, GI Bleed, Hypertension, Myocardial Infarction (GA), Musculoskeletal Disorder, Osteoarthritis (OA), Thyroid Disorder Additional Past Medical History / Comment(s): Pacemaker for Syncope/Tachybrady Syndrome. Hx RHEUMATIC FEVER. Heart murmur, chronic back and bilateral shoulder pain. SEVERE OSTEOPROSIS, Vertigo, Degenerative Joint Disease, GI ulcers, esopha gitis/esophageal stricture, partially blocked bile duct, PROBLEMS WITH SWALLOWING, "no symptoms of COPD." FALLS "Cannot lie down for long without having back pain.". Left hip open reduction internal fixation of some trochanteric comminuted femur fracture in November 2021 Last Myocardial Infarction Date:: 2002 History of Any Multi-Drug Resistant Organisms: None Reported Past Surgical History: Appendectomy, Cardiac Ablation, Cholecystectomy, Ear Surgery, Heart Catheterization, Hysterectomy, Orthopedic Surgery, Pacemaker, T onsillectomy Additional Past Surgical History / Comment(s): ORIF LEFT LOWER ARM, HAS HARDWARE, numerous DILATATION OF ESOPHAGUS, biopsies were negative, colonoscopy, Pacemaker (ADAPTA) placed 07/07 at [facility], bilateral stapedectomies(stainless steel in both ears), Hiatal Hernia repair, inguinal and femoral hernia repairs, "cement placed in back, due to broken back/pelvis". Left Femur Surgery 12/09/21 Past Anesthesia/Blood Transfusion Reactions: Family History of Problems w/ Anesthesia, Motion Sickness, Postoperative Nausea & Vomiting (PONV) Additional Past Anesthesia/Blood Transfusion Reaction / Comment(s): No problems with prior blood transfusion. BROTHER HAS PONV. Type of Cardiac Device: Permanent Pacemaker Device Placement Date:: 06/2016 Past Psychological History: No Psychological Hx Reported Smoking Status: Never smoker Past Alcohol Use History: None Reported Past Drug Use History: None Reported - Past Family History Brother(s) Family Medical History: Cancer Additional Family Medical History / Comment(s): Throat cancer. Father Family Medical History: Pneumonia Additional Family Medical History / Comment(s): EMPHYSEMA. Mother Family Medical History: COPD, Rheumatoid Arthritis (RA) Additional Family Medical History / Comment(s): EMPHYSEMA. General Exam Limitations: no limitations General appearance: alert, in no apparent distress Head exam: Present: atraumatic, normocephalic Eye exam: Present: normal appearance. Absent: scleral icterus, conjunctival injection ENT exam: Present: mucous membranes dry Neck exam: Present: normal inspection Respiratory exam: Present: normal lung sounds bilaterally. Absent: respiratory distress, wheezes, rales, rhonchi, stridor Cardiovascular Exam: Present: regular rate, normal rhythm, normal heart sounds. Absent: systolic murmur, diastolic murmur, rubs, gallop GI/Abdominal exam: Present: soft. Absent: distended, tenderness, guarding, rebound, rigid, mass Extremities exam: Present: normal inspection, normal capillary refill. Absent: pedal edema, calf tenderness Back exam: Present: normal inspection. Absent: CVA tenderness (R), CVA tenderness (L) Neurological exam: Present: alert, oriented X3, CN II-XII intact, other (The patient does have a little bit of subjective weakness of the left upper extremity versus right.). Absent: motor sensory deficit Skin exam: Present: warm, dry, intact, normal color. Absent: rash Course Vital Signs 09/20/22 09/20/22 09/20/22 19:11 20:13 22:02 Temperature 98.1 F Pulse Rate 66 70 102 H Respiratory 20 15 17 Rate Blood Pressure 147/77 138/75 O2 Sat by Pulse 99 100 100 Oximetry 09/20/22 22:59 Temperature 98.2 F Pulse Rate 96 Respiratory 14 Rate Blood Pressure 137/95 O2 Sat by Pulse 99 Oximetry Medical Decision Making - Medical Decision Making The patient had computed tomography scan of the brain and C-spine, which I interpreted as showing no acute bony injury and no intracranial hemorrhage. This patient is 76-year-old woman who was referred here by her clinic doctor. The patient has been having some numbness mainly of the left upper extremity. There does not appear to be central lesion responsible. Discussed with the patient having appropriate follow-up for EMG testing/MRI to further investigate the symptoms. Given the distribution of the symptoms, this does seem to be more of a peripheral nerve issue, but will require close follow-up. Discussed return parameters. Please note that there were in depth discussions with the patient's family and I did speak with the patient's physician on the phone twice. Admission to see the neurologist in the hospital was offered, but both the patient's physician and family believe that she would be better served by outpatient workup for this condition, given the milieu effect. I did discuss that if there seems to be any delay in obtaining the services that they should return to the hospital where a more prompt workup can be obtained. Was pt. sent in by a medical professional or institution ([facility], [facility], urgent care, hospital, or correction...) When possible be specific @ -yes, patient's primary physician prompted her to go to the emergency department Did you speak to anyone other than the patient for history (EMS, parent, family, police, friend...)? What history was obtained from this source @ -[Case was discussed on the phone twice with the patient's physician and also at the bedside with the patient's family Did you review nursing and triage notes (agree or disagree)? Why? @ -[I reviewed and agree with nursing and triage notes] Were old charts reviewed (outside hosp., previous admission, EMS record, old EKG, old radiological studies, urgent care reports/EKG's, correction records)? Report findings @ -[No old charts were reviewed] Differential Diagnosis (chest pain, altered mental status, abdominal pain women, abdominal pain men, vaginal bleeding, weakness, fever, dyspnea, syncope, headache, dizziness, GI bleed, back pain, seizure, CVA, palpatations, mental health, musculoskeletal)? @ -[Differential Weakness: Hypoglycemia, shock, sepsis, hyponatremia, anemia, infection, adverse medicine reaction, stroke, peripheral nerve lesion/neuropathy, this is not meant to be an all-inclusive list. EKG interpreted by me (3pts min.). @ -[ X-rays interpreted by me (1pt min.). @ -[None done] CT interpreted by me (1pt min.). @ -[As above U/S interpreted by me (1pt. min.). @ -[None done] What testing was considered but not performed or refused? (CT, X-rays, U/S, labs)? Why? @ -[None] What meds were considered but not given or refused? Why? @ -[None] Did you discuss the management of the patient with other professionals (professionals i.e. [facility], [facility], lab, RT, psych nurse, social media specialist, field sales executive, teacher, penal officer, caseworker protective services)? Give summary @ -[Case discussed with patient's primary physician twice Was smoking cessation discussed for >3mins.? @ -[No] Was critical care preformed (if so, how long)? @ -[No] Were there social determinants of health that impacted care today? How? (Homelessness, low income, unemployed, alcoholism, drug addiction, transportation, low edu. Level, literacy, decrease access to med. care, senior care, rehab)? @ -[No] Was there de-escalation of care discussed even if they declined (Discuss DNR or withdrawal of care, Hospice)? DNR status @ -[Yes, I did discuss admission to have MRI/neurology consultation and as discussed above the consensus was that outpatient workup would be better for this patient What co-morbidities impacted this encounter? (DM, HTN, Smoking, COPD, CAD, Cancer, CVA, ARF, Chemo, Hep., AIDS, mental health diagnosis, sleep apnea, morbid obesity)? @ -[None] Was patient admitted / discharged? Hospital course, mention meds given and route, prescriptions, significant lab abnormalities, going to OR and other pertinent info. @ -[Discharged Undiagnosed new problem with uncertain prognosis? @ -[No] Drug Therapy requiring intensive monitoring for toxicity (Heparin, Nitro, Insulin, Cardizem)? @ -[No] Were any procedures done? @ -[No] Diagnosis/symptom? @ -[Left arm weakness Acute, or Chronic, or Acute on Chronic? @ -[Acute Uncomplicated (without systemic symptoms) or Complicated (systemic symptoms)? @ -[Uncomplicated Side effects of treatment? @ -[No] Exacerbation, Progression, or Severe Exacerbation? @ -[No] Poses a threat to life or bodily function? How? (Chest pain, USA, GA, pneumonia, PE, COPD, DKA, ARF, appy, cholecystitis, CVA, Diverticulitis, Homicidal, Suicidal, threat to staff... and all critical care pts) @ -[Undetermined now, pending further workup - Lab Data Result diagrams: 09/20/22 21:07 09/20/22 21: Lab Results 09/20/22 09/20/22 09/20/22 Range/Units 21:07 21: 21: WBC 5.5 (3.8-10.6) k/uL RBC 3.43 L (3.80-5.40) m/uL Hgb 9.3 L (11.4-16.0) gm/dL Hct 29.9 L (34.0-46.0) % MCV 87.2 (80.0-100.0) fL MCH 27.0 (25.0-35.0) pg MCHC 30.9 L (31.0-37.0) g/dL RDW 15.4 (11.5-15.5) % Plt Count 329 (150-450) k/uL MPV 8.0 Neutrophils % (Manual) 68 % Lymphocytes % (Manual) 20 % Monocytes % (Manual) 9 % Eosinophils % (Manual) 3 % Neutrophils # (Manual) 3.74 (1.3-7.7) k/uL Lymphocytes # (Manual) 1.10 (1.0-4.8) k/uL Monocytes # (Manual) 0.50 (0-1.0) k/uL Eosinophils # (Manual) 0.17 (0-0.7) k/uL Nucleated RBCs 0 (0-0) /100 WBC Hypochromasia Marked Target Cells Present Ovalocytes Present Sodium 134 L (137-145) mmol/L Potassium 4.2 (3.5-5.1) mmol/L Chloride 97 L (98-107) mmol/L Carbon Dioxide 27 (22-30) mmol/L Anion Gap 10 mmol/L BUN 42 H (7-17) mg/dL Creatinine 1.68 H (0.52-1.04) mg/dL Est GFR (CKD-EPI)AfAm 34 (>60 ml/min/1.73 sqM) Est GFR (CKD-EPI)NonAf 30 (>60 ml/min/1.73 sqM) Glucose 96 (74-99) mg/dL Calcium 9.0 (8.4-10.2) mg/dL Magnesium 2.3 (1.6-2.3) mg/dL Total Bilirubin 0.2 (0.2-1.3) mg/dL AST 48 H (14-36) U/L ALT 27 (4-34) U/L Alkaline Phosphatase 133 H (38-126) U/L Troponin I <0.012 (0.000-0.034) ng/mL Total Protein 7.5 (6.3-8.2) g/dL Albumin 4.2 (3.5-5.0) g/dL Disposition Clinical Impression: Left arm weakness Disposition: HOME SELF-CARE Condition: Fair Instructions (If sedation given, give patient instructions): Radial Nerve Palsy (ED), Stroke (DC) Is patient prescribed a controlled substance at d/c from ED?: No Referrals: Bunny Mendes MD [Primary Care Provider] - 1-2 days
[2022-09-20 23:00] VITALS: BP 137/95; PULSE 96; RESP 14; TEMP 98.2
== END 2022-09-20 23:00 | disposition home or self-care (01) ==
LOC: EC 18:48
DX: R53.1 Weakness (principal); I11.0 Hypertensive heart disease with heart failure; I50.9 Heart failure, unspecified; I25.10 Atherosclerotic heart disease of native coronary artery without angina pectoris; I25.2 Old myocardial infarction; I48.91 Unspecified atrial fibrillation; J44.9 Chronic obstructive pulmonary disease, unspecified; M19.90 Unspecified osteoarthritis, unspecified site; K21.9 Gastro-esophageal reflux disease without esophagitis; Z86.73 Personal history of transient ischemic attack (TIA), and cerebral infarction without residual deficits; E07.9 Disorder of thyroid, unspecified; Z88.2 Allergy status to sulfonamides; Z88.1 Allergy status to other antibiotic agents; Z88.6 Allergy status to analgesic agent; Z88.8 Allergy status to other drugs, medicaments and biological substances; Z79.890 Hormone replacement therapy; Z79.899 Other long term (current) drug therapy
CPT/HCPCS: 36415; 80053; 83735; 84484; 85025; 72125; 70450; 99285; 96372; J2270

== ENCOUNTER 2022-11-13 14:34 | Inpatient (IN) | payer OTHER ==
[2022-11-13] MEDS ORDERED: SODIUM CHLORIDE 0.9% 1,000 ML IV ONE (15:40)
[2022-11-13] MEDS ORDERED: MORPHINE SULFATE 2 MG/ML SYRINGE IVP ONE ×2 (15:40→16:36)
--- NOTE | 2022-11-13 16:09 | ED ---
General Adult HPI - General Chief complaint: Chest Pain Stated complaint: SINAN Time Seen by Provider: 11/13/22 15:23 Source: patient, RN notes reviewed Mode of arrival: EMS Limitations: no limitations - History of Present Illness Initial comments: 76-year-old female with past medical history significant for atrial fibrillation presents the emergency department via EMS with a chief complaint of shortness of breath. Patient reports that she was sleeping and approximately 02 100 last night had sharp chest pain that woke her up. She is also complaining of accompanying shortness of breath and cannot take a deep breath. She reports she had a recent placement of ice placed at [facility] 10/2022. She reports that she is not on Eliquis due to having an ALLERGY and breaking out in a rash. She does report taking aspirin and Plavix. She denies any fever, chills, nausea, vomiting, diaphoresis. - Related Data Home Medications Medication Instructions Recorded Confirmed SUMAtriptan succinate [Imitrex] 50 mg PO TID PRN 02/15/16 11/13/22 TadeoacidCynthia mann B.lactis 1 cap PO DAILY 02/06/20 11/13/22 [Probiotic] Metoprolol Tartrate [Lopressor] 50 mg PO DAILY 10/05/20 11/13/22 Spironolactone [Aldactone] 25 mg PO DAILY 08/04/21 11/13/22 Pantoprazole [Protonix] 40 mg PO BID 12/27/21 11/13/22 Amiodarone [Cordarone] 200 mg PO DAILY 02/03/22 11/13/22 Furosemide [Lasix] 40 mg PO BID 02/03/22 11/13/22 Potassium Chloride ER [K-Dur 10] 40 meq PO BID 02/03/22 11/13/22 Acetaminophen [Tylenol Extra 1,000 mg PO QID PRN 09/20/22 11/13/22 Strength] Buprenorphine [Butrans 10 MCG/HOUR] 1 patch TRANSDERM TH 09/20/22 11/13/22 Furosemide [Lasix] 40 mg PO BID PRN 09/20/22 11/13/22 Mupirocin 2% Oint [Bactroban 2% 1 applic TOPICAL BID 09/20/22 11/13/22 Oint] Ondansetron [Zofran] 4 mg PO TID PRN 09/20/22 11/13/22 Sennosides [Senokot] 8.6 mg PO BID 09/20/22 11/13/22 Triamcinolone 0.5% Cream [Kenalog 1 applic TOPICAL DAILY 09/20/22 11/13/22 0.5% Cream] dilTIAZem HCL 60 mg PO TID 09/20/22 11/13/22 hydrOXYzine pamoate [Vistaril] 25 mg PO Q6H PRN 09/20/22 11/13/22 Acetaminophen [Tylenol] 325 mg PO Q4H PRN 11/13/22 11/13/22 Aspirin EC [Ecotrin Low Dose] 81 mg PO DAILY 11/13/22 11/13/22 Clopidogrel [Plavix] 75 mg PO DAILY 11/13/22 11/13/22 Dicyclomine [Bentyl] 10 mg PO TID 11/13/22 11/13/22 Doxepin HCl 6 mg PO HS 11/13/22 11/13/22 Doxycycline Hyclate 100 mg PO DAILY 11/13/22 11/13/22 HYDROcodone/APAP 5-325MG [Hooker 1 tab PO Q4H PRN 11/13/22 11/13/22 5-325] Levothyroxine Sodium [Synthroid] 100 mcg PO DAILY 11/13/22 11/13/22 Melatonin [Melatonin ER] 10 mg PO HS PRN 11/13/22 11/13/22 Allergies Allergy/AdvReac Type Severity Reaction Status Date / Time adhesive Allergy RASH FROM Verified 11/13/22 16:44 EKG STICKERS apixaban [From Eliquis] Allergy Rash/Hives Verified 11/13/22 16:44 celecoxib [From Celebrex] Allergy Rash/Hives Verified 11/13/22 16:44 sertraline HCl [From Zoloft] Allergy Rash/Hives Verified 11/13/22 16:44 sulfamethoxazole Allergy Anaphylaxis Verified 11/13/22 16:44 [From Bactrim] trimethoprim [From Bactrim] Allergy Anaphylaxis Verified 11/13/22 16:44 cholestyramine AdvReac DIZZY/CONFU Verified 11/13/22 16:44 SED Review of Systems ROS Statement: Those systems with pertinent positive or pertinent negative responses have been documented in the HPI. ROS Other: All systems not noted in ROS Statement are negative. Past Medical History Past Medical History: Atrial Fibrillation, Blood Disorder, Coronary Artery Disease (CAD), Chest Pain / Angina, Heart Failure, COPD, CVA/TIA, Fibromyalgia, GERD/Reflux, GI Bleed, Hypertension, Myocardial Infarction (MA), Musculoskeletal Disorder, Osteoarthritis (OA), Thyroid Disorder Additional Past Medical History / Comment(s): Pacemaker for Syncope/Tachybrady Syndrome. Hx RHEUMATIC FEVER. Heart murmur, chronic back and bilateral shoulder pain. SEVERE OSTEOPROSIS, Vertigo, Degenerative Joint Disease, GI ulcers, esophagitis/esophageal stricture, partially blocked bile duct, PROBLEMS WITH SWALLOWING, "no symptoms of COPD." FALLS "Cannot lie down for long without having back pain.". Left hip open reduction internal fixation of some trochanteric comminuted femur fracture in November 2021 Last Myocardial Infarction Date:: 2002 History of Any Multi-Drug Resistant Organisms: None Reported Past Surgical History: Appendectomy, Cardiac Ablation, Cholecystectomy, Ear Surgery, Heart Catheterization, Hysterectomy, Orthopedic Surgery, Pacemaker, Tonsillectomy Additional Past Surgical History / Comment(s): ORIF LEFT LOWER ARM, HAS HARDWARE, numerous DILATATION OF ESOPHAGUS, biopsies were negative, colonoscopy, Pacemaker (ADAPTA) placed 07/07 at [facility], bilateral stapedectomies(stainless steel in both ears), Hiatal Hernia repair, inguinal and femoral hernia repairs, "cement placed in back, due to broken back/pelvis". Left Femur Surgery 12/09/21 Past Anesthesia/Blood Transfusion Reactions: Family History of Problems w/ Anes thesia, Motion Sickness, Postoperative Nausea & Vomiting (PONV) Additional Past Anesthesia/Blood Transfusion Reaction / Comment(s): No problems with prior blood transfusion. BROTHER HAS PONV. Type of Cardiac Device: Permanent Pacemaker Device Placement Date:: 06/2016 Past Psychological History: No Psychological Hx Reported Smoking Status: Never smoker Past Alcohol Use History: None Reported Past Drug Use History: None Reported - Past Family History Brother(s) Family Medical History: Cancer Additional Family Medical History / Comment(s): Throat cancer. Father Family Medical History: Pneumonia Additional Family Medical History / Comment(s): EMPHYSEMA. Mother Family Medical History: COPD, Rheumatoid Arthritis (RA) Additional Family Medical History / Comment(s): EMPHYSEMA. General Exam - General Exam Comments Initial Comments: General: Alert, in no acute distress Head: atraumatic normocephalic. Eyes PERRL, EOMI intact, mucous membranes moist Respiratory: Lungs clear to auscultation bilaterally Cardiovascular: Heart rate regular rate and irregularly irregular Abdominal: Soft without guarding or rebound Extremities: Normal inspection with full range of motion and normal capillary refill Neuroogic: alert and oriented 3, CN II-XII intact, able to ambulate with steady gait Skin: warm dry and intact with normal color Limitations: no limitations Course Vital Signs 11/13/22 11/13/22 15:19 19:30 Temperature 97.9 F 97.7 F Pulse Rate 106 H 95 Respiratory 18 18 Rate Blood Pressure 121/81 124/81 O2 Sat by Pulse 100 98 Oximetry - Reevaluation(s) Reevaluation #1: 11/13/22 18:23 Reevaluated and updated on results. She is agreeable with the plan for admission. Reevaluation #2: 11/13/22 18:36 Case discussed with sound who agrees and accepts the patient for admission EKG Findings - EKG Comments: EKG Findings:: I interpreted the following: EKG performed at 14:44. Rate 106 bpm and atrial fibrillation with RVR. * MS interval, QRS duration 99, Qt/Qtc 350/412 Medical Decision Making - Medical Decision Making Was pt. sent in by a medical professional or institution (, PA, SEISMOGRAPH OPERATOR HELPER, urgent care, hospital, or senior care...) When possible be specific @ -[No] Did you speak to anyone other than the patient for history (EMS, parent, family, police, friend...)? What history was obtained from this source @ -EMS Did you review nursing and triage notes (agree or disagree)? Why? @ -[I reviewed and agree with nursing and triage notes] Were old charts reviewed (outside hosp., previous admission, EMS record, old EKG, old radiological studies, urgent care reports/EKG's, senior care records)? Report findings @ -[No old charts were reviewed] Differential Diagnosis (chest pain, altered mental status, abdominal pain women, abdominal pain men, vaginal bleeding, weakness, fever, dyspnea, syncope, headache, dizziness, GI bleed, back pain, seizure, CVA, palpatations, mental health, musculoskeletal)? @ -[not applicable] EKG interpreted by me (3pts min.). @ -[As above] X-rays interpreted by me (1pt min.). @ -[None done] CT interpreted by me (1pt min.). @ -[None done] U/S interpreted by me (1pt. min.). @ -[None done] What testing was considered but not performed or refused? (CT, X-rays, U/S, labs)? Why? @ -[None] What meds were considered but not given or refused? Why? @ -[None] Did you discuss the management of the patient with other professionals (professionals i.e. DrMarquise, PA, SEISMOGRAPH OPERATOR HELPER, lab, RT, psych nurse, social media job titles, md allergy immunology, teacher, student officer, case advocate)? Give summary @ -[No] Was smoking cessation discussed for >3mins.? @ -[No] Was critical care preformed (if so, how long)? @ -[No] Were there social determinants of health that impacted care today? How? (Homelessness, low income, unemployed, alcoholism, drug addiction, transportation, low edu. Level, literacy, decrease access to med. care, [facility], rehab)? @ -[No] Was there de-escalation of care discussed even if they declined (Discuss DNR or withdrawal of care, Hospice)? DNR status @ -[No] What co-morbidities impacted this encounter? (DM, HTN, Smoking, COPD, CAD, Cancer, CVA, ARF, Chemo, Hep., AIDS, mental health diagnosis, sleep apnea, morbid obesity)? @ -[None] Was patient admitted / discharged? Hospital course, mention meds given and route, prescriptions, significant lab abnormalities, going to OR and other pertinent info. @ Admission. This is a pleasant 76-year-old female who presents the emergency department with shortness of breath. Patient had a thorough history and physical exam performed while in the ED. Physical exam is essentially unremarkable. Heart rate is irregularly irregular., Lungs clear to auscultation bilaterally, abdomen soft and nontender. Patient had lab work and imaging performed which revealed WBC 6.2, hemoglobin 9.1 d-dimer greater than 0.968, potassium 4.5 BUN 79, creatinine 1.2 to initial troponin is negative CT angiogram to rule out pulmonary embolism reveals pulmonary embolism and left pulmonary artery. I discussed the results in detail the patient verbalized understanding and all questions were addressed. She is agreeable with the plan for admission at this time. Case discussed with Dr. Cindy roman around him who agrees and accepts patient for admission. She will be started on high intensity heparin. Patient was given morphine and IV fluids with symptomatic relief in the ED. Patient will be admitted to this hospital for further observation with consult for pulmonology. Case discussed with GIOVANNA Leon who agrees with plan of care Undiagnosed new problem with uncertain prognosis? @ -[No] Drug Therapy requiring intensive monitoring for toxicity (Heparin, Nitro, Insulin, Cardizem)? @ -[No] Were any procedures done? @ -[No] Diagnosis/symptom? @ - Pulmonary Embolism - Shortness of Breath Acute, or Chronic, or Acute on Chronic? @ -Acute Uncomplicated (without systemic symptoms) or Complicated (systemic symptoms)? @ -Complicated Side effects of treatment? @ -[No] Exacerbation, Progression, or Severe Exacerbation? @ -[No] Poses a threat to life or bodily function? How? (Chest pain, USA, MA, pneumonia, PE, COPD, DKA, ARF, appy, cholecystitis, CVA, Diverticulitis, Homicidal, Suicidal, threat to staff... and all critical care pts) @ -High Likelihood - Lab Data Result diagrams: 11/13/22 15:52 11/13/22 15:52 Lab Results 11/13/22 11/13/22 11/13/22 Range/Units 15:52 15:52 15:52 WBC 6.2 (3.8-10.6) k/uL RBC 3.59 L (3.80-5.40) m/uL Hgb 9.1 L (11.4-16.0) gm/dL Hct 29.6 L (34.0-46.0) % MCV 82.5 (80.0-100.0) fL MCH 25.2 (25.0-35.0) pg MCHC 30.6 L (31.0-37.0) g/dL RDW 18.0 H (11.5-15.5) % Plt Count 334 (150-450) k/uL MPV 8.0 Neutrophils % 63 % Lymphocytes % 25 % Monocytes % 7 % Eosinophils % 2 % Basophils % 1 % Neutrophils # 3.9 (1.3-7.7) k/uL Lymphocytes # 1.5 (1.0-4.8) k/uL Monocytes # 0.4 (0-1.0) k/uL Eosinophils # 0.1 (0-0.7) k/uL Basophils # 0.0 (0-0.2) k/uL Hypochromasia Marked Anisocytosis Slight PT 10.7 (9.0-12.0) sec INR 1.0 (<1.2) APTT 22.9 (22.0-30.0) sec D-Dimer 0.96 H (<0.60) mg/L FEU Sodium (137-145) mmol/L Potassium (3.5-5.1) mmol/L Chloride (98-107) mmol/L Carbon Dioxide (22-30) mmol/L Anion Gap mmol/L BUN (7-17) mg/dL Creatinine (0.52-1.04) mg/dL Est GFR (CKD-EPI)AfAm (>60 ml/min/1.73 sqM) Est GFR (CKD-EPI)NonAf (>60 ml/min/1.73 sqM) Glucose (74-99) mg/dL Calcium (8.4-10.2) mg/dL Magnesium (1.6-2.3) mg/dL Total Bilirubin (0.2-1.3) mg/dL AST (14-36) U/L ALT (4-34) U/L Alkaline Phosphatase (38-126) U/L Troponin I (0.000-0.034) ng/mL Total Protein (6.3-8.2) g/dL Albumin (3.5-5.0) g/dL Urine Color Colorless Urine Appearance Clear (Clear) Urine pH 5.0 (5.0-8.0) Ur Specific [place] 1.015 (1.001-1.035) Urine Protein Negative (Negative) Urine Glucose (UA) Negative (Negative) Urine Ketones Negative (Negative) Urine Blood Negative (Negative) Urine Nitrite Negative (Negative) Urine Bilirubin Negative (Negative) Urine Urobilinogen <2.0 (<2.0) mg/dL Ur Leukocyte Esterase Negative (Negative) Influenza Type A (PCR) (Not Detectd) Influenza Type B (PCR) (Not Detectd) RSV (PCR) (Not Detectd) SARS-CoV-2 (PCR) (Not Detectd) 11/13/22 11/13/22 11/13/22 Range/Units 15:52 15:52 15:52 WBC (3.8-10.6) k/uL RBC (3.80-5.40) m/uL Hgb (11.4-16.0) gm/dL Hct (34.0-46.0) % MCV (80.0-100.0) fL MCH (25.0-35.0) pg MCHC (31.0-37.0) g/dL RDW (11.5-15.5) % Plt Count (150-450) k/uL MPV Neutrophils % % Lymphocytes % % Monocytes % % Eosinophils % % Basophils % % Neutrophils # (1.3-7.7) k/uL Lymphocytes # (1.0-4.8) k/uL Monocytes # (0-1.0) k/uL Eosinophils # (0-0.7) k/uL Basophils # (0-0.2) k/uL Hypochromasia Anisocytosis PT (9.0-12.0) sec INR (<1.2) APTT (22.0-30.0) sec D-Dimer (<0.60) mg/L FEU Sodium 133 L (137-145) mmol/L Potassium 4.5 (3.5-5.1) mmol/L Chloride 101 (98-107) mmol/L Carbon Dioxide 22 (22-30) mmol/L Anion Gap 10 mmol/L BUN 79 H (7-17) mg/dL Creatinine 1.22 H (0.52-1.04) mg/dL Est GFR (CKD-EPI)AfAm 51 (>60 ml/min/1.73 sqM) Est GFR (CKD-EPI)NonAf 44 (>60 ml/min/1.73 sqM) Glucose 95 (74-99) mg/dL Calcium 9.0 (8.4-10.2) mg/dL Magnesium 2.1 (1.6-2.3) mg/dL Total Bilirubin 0.6 (0.2-1.3) mg/dL AST 59 H (14-36) U/L ALT 21 (4-34) U/L Alkaline Phosphatase 88 (38-126) U/L Troponin I <0.012 (0.000-0.034) ng/mL Total Protein 7.6 (6.3-8.2) g/dL Albumin 4.0 (3.5-5.0) g/dL Urine Color Urine Appearance (Clear) Urine pH (5.0-8.0) Ur Specific [place] (1.001-1.035) Urine Protein (Negative) Urine Glucose (UA) (Negative) Urine Ketones (Negative) Urine Blood (Negative) Urine Nitrite (Negative) Urine Bilirubin (Negative) Urine Urobilinogen (<2.0) mg/dL Ur Leukocyte Esterase (Negative) Influenza Type A (PCR) Not Detected (Not Detectd) Influenza Type B (PCR) Not Detected (Not Detectd) RSV (PCR) Not Detected (Not Detectd) SARS-CoV-2 (PCR) Not Detected (Not Detectd) Disposition Clinical Impression: Pulmonary embolism, Shortness of breath Disposition: ADMITTED IP TO THIS [facility] Condition: Stable Time of Disposition: 18:21
[2022-11-13 16:21] LABS: Anisocytosis Slight; Basophils % (A) 1 %; Eosinophils # (A) 0.1 k/uL (0-0.7); Eosinophils % (A) 2 %; HCT 29.6 % (34.0-46.0); HGB 9.1 gm/dL (11.4-16.0); Hypochromasia Marked; Lymphocytes # (A) 1.5 k/uL (1.0-4.8); Lymphocytes % (A) 25 %; MCH 25.2 pg (25.0-35.0); MCHC 30.6 g/dL (31.0-37.0); MCV 82.5 fL (80.0-100.0); Monocytes # (A) 0.4 k/uL (0-1.0); Monocytes % (A) 7 %; Neutrophils # (A) 3.9 k/uL (1.3-7.7); Neutrophils % (A) 63 %; Platelet Count 334 k/uL (150-450); RBC 3.59 m/uL (3.80-5.40); WBC 6.2 k/uL (3.8-10.6)
[2022-11-13 16:32] LABS: Partial Thromboplastin Time 22.9 sec (22.0-30.0); Prothrombin Time 10.7 sec (9.0-12.0)
[2022-11-13 16:46] LABS: Appearance,Urine Clear (Clear); Bilirubin,Urine Negative (Negative); Blood,Urine Negative (Negative); Color,Urine Colorless; Glucose,Urine (UA) Negative (Negative); Ketones,Urine Negative (Negative); Leukocyte Esterase,Urine Negative (Negative); Nitrite,Urine Negative (Negative); Protein,Urine Negative (Negative); Specific Gravity,Urine 1.015 (1.001-1.035); Urobilinogen,Urine <2.0 mg/dL (<2.0)
[2022-11-13 16:47] LABS: ALT 21 U/L (4-34); African American GFR (CKD) 51 (>60 ml/min/1.73 sqM); Anion Gap 10 mmol/L; Blood Urea Nitrogen 79 mg/dL (7-17); Carbon Dioxide 22 mmol/L (22-30); Chloride 101 mmol/L (98-107); Glucose 95 mg/dL (74-99); Non-African American GFR(CKD) 44 (>60 ml/min/1.73 sqM); Sodium 133 mmol/L (137-145); Total Bilirubin 0.6 mg/dL (0.2-1.3)
[2022-11-13 17:01] LABS: AST 59 U/L (14-36); Alkaline Phosphatase 88 U/L (38-126); Magnesium 2.1 mg/dL (1.6-2.3); Potassium 4.5 mmol/L (3.5-5.1); Total Protein 7.6 g/dL (6.3-8.2)
[2022-11-13] MEDS ORDERED: SODIUM CHLORIDE 0.9% 500 ML 500 ML IV ONE (17:16)
--- NOTE | 2022-11-13 18:16 | CT ---
EXAMINATION TYPE: CT chest angio for PE, XR chest 2V CT DLP: 186.9 mGycm, Automated exposure control for dose reduction was used. DATE OF EXAM: 11/13/2022 5:56 PM COMPARISON: Chest radiograph from same day. Multiple CTs of the chest with most recent on . CLINICAL INDICATION:Female, 76 years old with history of elevated d-dimer; SINAN, elevated d dimer TECHNIQUE/CONTRAST: CTA scan of the thorax is performed with IV Contrast, patient injected with 80ml mL of Isovue 370, UT P images are created and reviewed these are created on a separate workstation.. Frontal view of the chest was also performed. FINDINGS: Pulmonary Artery: Filling defect within the left upper lung segmental pulmonary arterial vasculature Lungs/Pleura: No evidence of focal consolidation, pleural effusion or pneumothorax. Airway: Large airways are patent. Heart: Heart is mildly enlarged for size there is atrial appendage occlusion device present. Vasculature: No evidence of aortic aneurysm. Anterior chest wall cardiac conduction device with leads terminating in appropriate position in the right ventricle and right atrium. Mediastinum: No gross evidence of adenopathy. Musculoskeletal: No acute osseous abnormalities compression deformity with vertebroplasty changes to T8. Increased kyphosis of the thoracic spine multilevel disc degeneration changes. Soft Tissues: Unremarkable. Lower neck: No significant findings. Upper Abdomen: No significant findings. Radiograph demonstrates no significant change from findings on CT report. IMPRESSION: 1. Prolonged filling defect compatible with pulmonary embolus. No evidence of right heart strain. 2. Mild cardiomegaly with coronary artery atherosclerosis. Findings communicated to the ER providers on 11/13/2022 6:[address] Shaheen Guerin.
[2022-11-13] MEDS ORDERED: HEPARIN SODIUM 1,000 UN/ML (10ML VL) IV ONE (18:22)
[2022-11-13] MEDS ORDERED: HEPARIN SODIUM 1,000 UN/ML (10ML VL) IV PRN (18:22)
[2022-11-13] MEDS ORDERED: NALOXONE 0.4 MG/ML 1 ML VIAL IV PRN (18:37)
[2022-11-13] MEDS ORDERED: ACETAMINOPHEN TAB 325 MG TAB PO PRN (18:37)
[2022-11-13] MEDS: MORPHINE SULFATE 4 MG/ML SYRINGE IV PRN ×2 (19:02→22:26)
[2022-11-13] MEDS: HEPARIN SOD,PORK IN 0.45% NACL 25,000 UNIT in 0.45% NACL 1 250ML.BAG IV SCH (19:06)
[2022-11-13] MEDS: SODIUM CHLORIDE 0.9% 1,000 ML IV SCH (19:19)
--- NOTE | 2022-11-14 01:26 | US ---
EXAM: US Duplex Bilateral Lower Extremities Veins CLINICAL HISTORY: ITS.REASON US Reason: rule out DVT TECHNIQUE: Real-time duplex ultrasound scan of the bilateral lower extremity veins integrating B-mode two-dimensional vascular structure, Doppler spectral analysis, color flow Doppler imaging and compression. COMPARISON: No relevant prior studies available. FINDINGS: Right deep veins: No DVT in the right common femoral, femoral, proximal deep femoral or popliteal veins. The veins demonstrate normal color flow, are normally compressible, with normal phasic flow and/or augmentation response. Right superficial veins: No thrombus in the visualized right great saphenous vein. Left deep veins: No DVT in the left common femoral, femoral, proximal deep femoral or popliteal veins. The veins demonstrate normal color flow, are normally compressible, with normal phasic flow and/or augmentation response. Left superficial veins: No thrombus in the visualized left great saphenous vein. Soft tissues: No popliteal cyst. IMPRESSION: No DVT.
[2022-11-14] MEDS: MORPHINE SULFATE 4 MG/ML SYRINGE IV PRN ×4 (02:19→19:56)
--- NOTE | 2022-11-14 02:50 | P.CNPUL ---
History of Present Illness Consult date: 11/14/22 Requesting physician: Kinza Grant Reason for consult: pulmonary embolism Chief complaint: Shortness of breath for the past 4 days and chest pain starting 1 day ago History of present illness: I am seeing this patient in new consultation today 11/14/2022 for a left upper lung segmental pulmonary embolism. Patient is a 76-year-old white female with medical history significant for atrial fibrillation in which she is not on any anticoagulation due to being ALLERGIC to Eliquis and Xarelto. She states that she breaks out in hives when taking them. She did have a watchman procedure per formed on 11/01/2022 at [facility]. She also has history of coronary artery disease, heart failure, pacemaker implantation for tachybradycardia arrhythmias, COPD, CVA/TIA, esophageal strictures, and multiple other comorbidities. Her PCP is Dr. Mendes. Patient came into the emergency room yesterday afternoon complaining of shortness of breath over the past 4 days. She did awake last night with severe chest pain. Chest pain was nonradiating, increased with inspiration. On arrival to the emergency room, chest CTA showed a showed a filling defect within the left upper lung segmental pulmonary artery vasculature, consistent with pulmonary embolus. There is no CT evidence of right heart strain reported. Troponin is less than 0.012. NT proBNP was mildly elevated at 1830. Patient was started on high intensity heparin per protocol. She is currently lying in bed, on room air, in no acute distress. She is hemodynamically stable. Patient denies any previous episode of DVT or PE. She denies any familial history, trauma, prolonged travel. No unilateral swelling of lower extremities, and venous Doppler of the lower extremities was negative for DVT. She does report new onset left arm weakness and numbness, that started approximately 2 months ago, in which she follows up on an outpatient basis with her PCP. She did have a follow-up CT of the brain and C-spine on September 20rst which showed no acute intracranial abnormality. It did show multilevel osteoarthritis throughout the C-spine and at least mild spinal canal stenosis. She is already on a combination of aspirin and Plavix initiated after her watchman procedure. CBC on arrival showed a WBC count of 6.2, he moglobin 9.1, hematocrit 29.6, platelets 334. Patient's anemia appears chronic. BMP shows sodium 133, potassium 4.5, chloride 101, serum bicarbonate 22, BUN 79, creatinine 1.22, glucose 95. Normal saline is infusing at 75 mL per hour. Negative for influenza, RSV, COVID-19. She denies any infectious symptoms. ECG shows atrial fibrillation with controlled ventricular rate; no acute ischemic ch anges seen. Patient is hemodynamically stable and being monitored on the cardiac stepdown unit. Review of Systems REVIEW OF SYSTEMS: CONSTITUTIONAL: Denies any recent significant weight loss or weight gain. EYES: Denies change in vision. EARS, NOSE, MOUTH, THROAT: Denies headaches, denies sore throat. CARDIOVASCULAR: Denies chest pain, palpitations or syncopal episodes. RESPIRATORY: Denies cough, congestion or hemoptysis. Admits shortness of breath and severe chest pain, likely pleuritic in nature GASTROINTESTINAL: Denies change in appetite, abdominal pain, nausea and vomiting, or diarrhea GENITOURINARY: Denies hematuria, denies infections. MUSKULOSKELETAL: Denies pain, denies swelling. INTEGUMENTARY: Denies rash, denies eczema. NEUROLOGICAL: Denies recent memory loss, no recent seizure activity. She does report left arm numbness and weakness that started approximately one and a half months ago. She denies ever following up about this new onset weakness. Her left leg is reportedly always weak due to a femur fracture status post internal fixation. No other neurological deficits reported. She is currently on a combination of aspirin and Plavix. PSYCHIATRIC: Denies anxiety, denies depression. HEMATOLOGIC/LYMPHATIC: Denies anemia, denies enlarged lymph node Past Medical History Past Medical History: Atrial Fibrillation, Blood Disorder, Coronary Artery Disease (CAD), Chest Pain / Angina, Heart Failure, COPD, CVA/TIA, Fibromyalgia, GERD/Reflux, GI Bleed, Hypertension, Myocardial Infarction ([place]), Musculoskeletal Disorder, Osteoarthritis (OA), Thyroid Disorder Additional Past Medical History / Comment(s): Pacemaker for Syncope/Tachybrady Syndrome. Hx RHEUMATIC FEVER. Heart murmur, chronic back and bilateral shoulder pain. SEVERE OSTEOPROSIS, Vertigo, Degenerative Joint Disease, GI ulcers, esophagitis/esophageal stricture, partially blocked bile duct, PROBLEMS WITH SWALLOWING, "no symptoms of COPD." FALLS "Cannot lie down for long without hav ing back pain.". Left hip open reduction internal fixation of some trochanteric comminuted femur fracture in November 2021 Last Myocardial Infarction Date:: 2002 History of Any Multi-Drug Resistant Organisms: None Reported Past Surgical History: Appendectomy, Cardiac Ablation, Cholecystectomy, Ear Surgery, Heart Catheterization, Hysterectomy, Orthopedic Surgery, Pacemaker, Tonsillectomy Additional Past Surgical History / Comment(s): ORIF LEFT LOWER ARM, HAS HARDWARE, numerous DILATATION OF ESOPHAGUS, biopsies were negative, colonoscopy, Pacemaker (ADAPTA) placed 07/07 at [facility], bilateral stapedectomies(stainless steel in both ears), Hiatal Hernia repair, inguinal and femoral hernia repairs, "cement placed in back, due to broken back/pelvis". Left Femur Surgery 12/09/21 Past Anesthesia/Blood Transfusion Reactions: Family History of Problems w/ Anesthesia, Motion Sickness, Postoperative Nausea & Vomiting (PONV) Additional Past Anesthesia/Blood Transfusion Reaction / Comment(s): No problems with prior blood transfusion. BROTHER HAS PONV. Type of Cardiac Device: Permanent Pacemaker Device Placement Date:: 06/2016 Past Psychological History: No Psychological Hx Reported Smoking Status: Never smoker Past Alcohol Use History: None Reported Past Drug Use History: None Reported - Past Family History Brother(s) Family Medical History: Cancer Additional Family Medical History / Comment(s): Throat cancer. Father Family Medical History: Pneumonia Additional Family Medical History / Comment(s): EMPHYSEMA. Mother Family Medical History: COPD, Rheumatoid Arthritis (RA) Additional Family Medical History / Comment(s): EMPHYSEMA. Medications and Allergies Home Medications Medication Instructions Recorded Confirmed Type SUMAtriptan succinate [Imitrex] 50 mg PO TID PRN 02/15/16 11/13/22 History L.acidoph,Paracasei, B.lactis 1 cap PO DAILY 02/06/20 11/13/22 History [Probiotic] Metoprolol Tartrate [Lopressor] 50 mg PO DAILY 10/05/20 11/13/22 History Spironolactone [Aldactone] 25 mg PO DAILY 08/04/21 11/13/22 History Pantoprazole [Protonix] 40 mg PO BID 12/27/21 11/13/22 History Amiodarone [Cordarone] 200 mg PO DAILY 02/03/22 11/13/22 History Furosemide [Lasix] 40 mg PO BID 02/03/22 11/13/22 History Potassium Chloride ER [K-Dur 10] 40 meq PO BID 02/03/22 11/13/22 History Acetaminophen [Tylenol Extra 1,000 mg PO QID PRN 09/20/22 11/13/22 History Strength] Buprenorphine [Butrans 10 MCG/HOUR] 1 patch TRANSDERM TH 09/20/22 11/13/22 History Furosemide [Lasix] 40 mg PO BID PRN 09/20/22 11/13/22 History Mupirocin 2% Oint [Bactroban 2% 1 applic TOPICAL BID 09/20/22 11/13/22 History Oint] Ondansetron [Zofran] 4 mg PO TID PRN 09/20/22 11/13/22 History Sennosides [Senokot] 8.6 mg PO BID 09/20/22 11/13/22 History Triamcinolone 0.5% Cream [Kenalog 1 applic TOPICAL DAILY 09/20/22 11/13/22 History 0.5% Cream] dilTIAZem HCL 60 mg PO TID 09/20/22 11/13/22 History hydrOXYzine pamoate [Vistaril] 25 mg PO Q6H PRN 09/20/22 11/13/22 History Acetaminophen [Tylenol] 325 mg PO Q4H PRN 11/13/22 11/13/22 History Aspirin EC [Ecotrin Low Dose] 81 mg PO DAILY 11/13/22 11/13/22 History Clopidogrel [Plavix] 75 mg PO DAILY 11/13/22 11/13/22 History Dicyclomine [Bentyl] 10 mg PO TID 11/13/22 11/13/22 History Doxepin HCl 6 mg PO HS 11/13/22 11/13/22 History Doxycycline Hyclate 100 mg PO DAILY 11/13/22 11/13/22 History HYDROcodone/APAP 5-325MG [[place] 1 tab PO Q4H PRN 11/13/22 11/13/22 History 5-325] Levothyroxine Sodium [Synthroid] 100 mcg PO DAILY 11/13/22 11/13/22 History Melatonin [Melatonin ER] 10 mg PO HS PRN 11/13/22 11/13/22 History Allergies Allergy/AdvReac Type Severity Reaction Status Date / Time adhesive Allergy RASH FROM Verified 11/13/22 16:44 EKG STICKERS apixaban [From Eliquis] Allergy Rash/Hives Verified 11/13/22 16:44 celecoxib [From Celebrex] Allergy Rash/Hives Verified 11/13/22 16:44 sertraline HCl [From Zoloft] Allergy Rash/Hives Verified 11/13/22 16:44 sulfamethoxazole Allergy Anaphylaxis Verified 11/13/22 16:44 [From Bactrim] trimethoprim [From Bactrim] Allergy Anaphylaxis Verified 11/13/22 16:44 cholestyramine AdvReac DIZZY/CONFU Verified 11/13/22 16:44 SED Physical Exam Vitals: Vital Signs Temp Pulse Resp BP Pulse Ox 11/13/22 19:30 97.7 F 95 18 124/81 98 11/13/22 15:19 97.9 F 106 H 18 121/81 100 Intake and Output 11/13/22 11/13/22 11/14/22 14:59 22:59 06:59 Intake Total 560 Output Total 300 Balance 260 Intake: Oral 560 Output: Urine 300 Other: Weight 43.091 kg GENERAL EXAM: Alert, 76-year-old white female appearing stated age, comfortable in no apparent distress. HEAD: Normocephalic and atraumatic EYES: Normal reaction of pupils, equal size. NOSE: Clear with pink turbinates. THROAT: No erythema or exudates. NECK: No masses, no JVD. CHEST: No chest wall deformity. LUNGS: Equal air entry with no crackles, wheeze, rhonchi or dullness. On room air. No conversational dyspnea or accessory muscle use.. CVS: S1 and S2 normal with no audible murmur, irregular rhythm. No extra heart sounds. Heart rate is controlled around 95 bpm ABDOMEN: No hepatosplenomegaly, active bowel sounds, no guarding or rigidity. 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 Left leg can barely be lifted against gravity. Sensation appears intact. No vision disturbances, disconjugate gaze, dysphasia, dysarthria, ataxia, neglect. EXTREMITIES: There is bilateral lower extremity nonpitting edema. No unilateral edema. no clubbing, or cyanosis. Peripheral pulses are intact. Results - Laboratory Findings CBC and BMP: 11/13/22 15:52 11/13/22 15:52 PT/INR, D-dimer PT 10.7 sec (9.0-12.0) 11/13/22 15:52 INR 1.0 (<1.2) 11/13/22 15:52 D-Dimer 0.96 mg/L FEU (<0.60) H 11/13/22 15:52 Abnormal lab findings: Abnormal Labs 11/13/22 11/13/22 11/13/22 15:52 15:52 15:52 RBC 3.59 L Hgb 9.1 L Hct 29.6 L MCHC 30.6 L RDW 18.0 H D-Dimer 0.96 H Sodium 133 L BUN 79 H Creatinine 1.22 H AST 59 H - Diagnostic Findings Chest x-ray: image reviewed CT scan - chest: image reviewed Assessment and Plan Assessment: Acute pulmonary embolism, CTA on arrival showed a filling defect within the left upper lung segmental pulmonary artery vasculature. No CT evidence of right heart strain. Currently on high intensity heparin per protocol. Atrial fibrillation, with controlled ventricular rate. Not on any anticoagulation, possibly related to history of GI bleeding. She is reportedly ALLERGIC to both Xarelto and Eliquis. She is status post watchman procedure recently performed on November 01, 2022 Acute kidney injury, unclear etiology Anemia of chronic disease History of CVA/TIA History of coronary artery disease History of heart failure with preserved ejection fraction Benign essential hypertension History of pacemaker implementation Fibromyalgia COPD, stable Hypothyroidism History of esophageal strictures, status post dilation History of left-sided femur fracture Plan: Patient's medications, labs, imaging reviewed On room air Currently on the high intensity heparin protocol Patient is ALLERGIC to Eliquis and Xarelto, will consider low molecular weight heparin or Coumadin Echocardiogram pending for the morning Bilateral lower extremity venous Doppler negative for DVT Normal saline is infusing at 75 mL per hour Appears hemodynamically stable. We will continue to follow I have personally seen and examined the patient, performed the documentation and the assessment and plan as written. Number of minutes spent on the visit:20 Time with Patient: Greater than 30
[2022-11-14] MEDS ORDERED: ACETAMINOPHEN TAB 325 MG TAB PO PRN (05:25)
--- NOTE | 2022-11-14 05:47 | P.HPIM ---
History of Present Illness H&P Date: 11/13/22 Chief Complaint: chest pain 76 year old female with hypertension , COPD she is coming in for chest pain that started last night , she woke up having pleuritic chest pain , central retrosternal , 9/10 in severity , worse with breathing, associated with lightheadedness, dizziness and SOB. no falls no injuries. she is not on blood thinner, as she just had a watchman procedure done 2 weeks ago , and she is allergic to eliquis and another blood thinner she could not remember the name due to causing hives. . however she does take plavix for CAD and CHF s/p pacemaker. she denies any history of blood clots, recent travel , or active cancer. denies any trauma or injuries to her chest . denies any symptoms suggestive of URI , denies fever, chills, cough. denies leg swelling . she is complaining of left upper extremity numbness over the forearm and hand, along with difficulty extending her pinkie and ring finger on that side. this has been going on for some time, she did OP workup and no diagnosis given. she also complain of neck stiffness and pain along with limited range of motion due to pain which is again not new. denies tobacco smoking, illicit drugs or alcohol review of systems Pertinent positives as noted in HPI. All other systems were reviewed and are negative Constitutional: No acute distress, conversant, pleasant Eyes: Anicteric sclerae, moist conjunctiva, Pupils equal round reactive to light ENMT: NC/AT Oropharynx clear, no erythema, or exudates Neck: Supple, no masses, or JVD No carotid bruits No thyromegaly Lungs: Clear to auscultation Clear to percussion Normal respiratory effort, no accessory muscle use Cardiovascular: Heart irregular in rate and rhythm, No murmurs, gallops, or rubs No peripheral edema Abdominal: Soft Nontender, no guarding, rebound or rigidity Abdomen moving with respiration Normoactive bowel sounds No hepatomegaly, No splenomegaly No palpable mass No abdominal wall hernia noted Skin: superficial abrasions over her back , no hives Extremities: No digital cyanosis No clubbing Pedal pulses intact and symmetrical Radial pulses intact and symmetrical No calf tenderness Psychiatric: Alert and oriented to person, place and time Appropriate affect fair judgement Neuro Muscles Strength 5/5 in all 4 extremities except over the distal left upper extremity and limited range of motion over the left shoulder . left hand is weak, able to move her thumb and index , the rest of the fingers are curled into the hand, however this is not consistent , as patient starts moving her hand better and use her left upper extremity with some limitations when distracted Sensation to light touch grossly present throughout Cranial nerves II-XII grossly intact Lymphatics: no palpable cervical or supraclavicular lymph nodes Past Medical History Past Medical History: Atrial Fibrillation, Blood Disorder, Coronary Artery Disease (CAD), Chest Pain / Angina, Heart Failure, COPD, CVA/TIA, Fibromyalgia, GERD/Reflux, GI Bleed, Hypertension, Myocardial Infarction ([place]), Musculoskeletal Disorder, Osteoarthritis ([place]), Thyroid Disorder Additional Past Medical History / Comment(s): Pacemaker for Syncope/Tachybrady Syndrome. Hx RHEUMATIC FEVER. Heart murmur, chronic back and bilateral shoulder pain. SEVERE OSTEOPROSIS, Vertigo, Degenerative Joint Disease, GI ulcers, esophagitis/esophageal stricture, partially blocked bile duct, PROBLEMS WITH SWALLOWING, "no symptoms of COPD." FALLS "Cannot lie down for long without having back pain.". Left hip open reduction internal fixation of some trochanteric comminuted femur fracture in November 2021 Last Myocardial Infarction Date:: 2002 History of Any Multi-Drug Resistant Organisms: None Reported Past Surgical History: Appendectomy, Cardiac Ablation, Cholecystectomy, Ear Surgery, Heart Catheterization, Hysterectomy, Orthopedic Surgery, Pacemaker, Tonsillectomy Additional Past Surgical History / Comment(s): ORIF LEFT LOWER ARM, HAS HARDWARE, numerous DILATATION OF ESOPHAGUS, biopsies were negative, colonoscopy, Pacemaker (ADAPTA) placed 07/07 at [facility], bilateral stapedectom ies(stainless steel in both ears), Hiatal Hernia repair, inguinal and femoral hernia repairs, "cement placed in back, due to broken back/pelvis". Left Femur Surgery 12/09/21 Past Anesthesia/Blood Transfusion Reactions: Family History of Problems w/ Anesthesia, Motion Sickness, Postoperative Nausea & Vomiting (PONV) Additional Past Anesthesia/Blood Transfusion Reaction / Comment(s): No problems with prior blood transfusion. BROTHER HAS PONV. Type of Cardiac Device: Permanent Pacemaker Device Placement Date:: 06/2016 Past Psychological History: No Psychological Hx Reported Smoking Status: Never smoker Past Alcohol Use History: None Reported Past Drug Use History: None Reported - Past Family History Brother(s) Family Medical History: Cancer Additional Family Medical History / Comment(s): Throat cancer. Father Family Medical History: Pneumonia Additional Family Medical History / Comment(s): EMPHYSEMA. Mother Family Medical History: COPD, Rheumatoid Arthritis (RA) Additional Family Medical History / Comment(s): EMPHYSEMA. Medications and Allergies Home Medications Medication Instructions Recorded Confirmed Type SUMAtriptan succinate [Imitrex] 50 mg PO TID PRN 02/15/16 11/13/22 History L.acidoph,Paracasei, B.lactis 1 cap PO DAILY 02/06/20 11/13/22 History [Probiotic] Metoprolol Tartrate [Lopressor] 50 mg PO DAILY 10/05/20 11/13/22 History Spironolactone [Aldactone] 25 mg PO DAILY 08/04/21 11/13/22 History Pantoprazole [Protonix] 40 mg PO BID 12/27/21 11/13/22 History Amiodarone [Cordarone] 200 mg PO DAILY 02/03/22 11/13/22 History Furosemide [Lasix] 40 mg PO BID 02/03/22 11/13/22 History Potassium Chloride ER [K-Dur 10] 40 meq PO BID 02/03/22 11/13/22 History Acetaminophen [Tylenol Extra 1,000 mg PO QID PRN 09/20/22 11/13/22 History Strength] Buprenorphine [Butrans 10 MCG/HOUR] 1 patch TRANSDERM TH 09/20/22 11/13/22 History Furosemide [Lasix] 40 mg PO BID PRN 09/20/22 11/13/22 History Mupirocin 2% Oint [Bactroban 2% 1 applic TOPICAL BID 09/20/22 11/13/22 History Oint] Ondansetron [Zofran] 4 mg PO TID PRN 09/20/22 11/13/22 History Sennosides [Senokot] 8.6 mg PO BID 09/20/22 11/13/22 History Triamcinolone 0.5% Cream [Kenalog 1 applic TOPICAL DAILY 09/20/22 11/13/22 History 0.5% Cream] dilTIAZem HCL 60 mg PO TID 09/20/22 11/13/22 History hydrOXYzine pamoate [Vistaril] 25 mg PO Q6H PRN 09/20/22 11/13/22 History Acetaminophen [Tylenol] 325 mg PO Q4H PRN 11/13/22 11/13/22 History Aspirin EC [Ecotrin Low Dose] 81 mg PO DAILY 11/13/22 11/13/22 History Clopidogrel [Plavix] 75 mg PO DAILY 11/13/22 11/13/22 History Dicyclomine [Bentyl] 10 mg PO TID 11/13/22 11/13/22 History Doxepin HCl 6 mg PO HS 11/13/22 11/13/22 History Doxycycline Hyclate 100 mg PO DAILY 11/13/22 11/13/22 History HYDROcodone/APAP 5-325MG [[place] 1 tab PO Q4H PRN 11/13/22 11/13/22 History 5-325] Levothyroxine Sodium [Synthroid] 100 mcg PO DAILY 11/13/22 11/13/22 History Melatonin [Melatonin ER] 10 mg PO HS PRN 11/13/22 11/13/22 History Allergies Allergy/AdvReac Type Severity Reaction Status Date / Time adhesive Allergy RASH FROM Verified 11/13/22 16:44 EKG STICKERS apixaban [From Eliquis] Allergy Rash/Hives Verified 11/13/22 16:44 celecoxib [From Celebrex] Allergy Rash/Hives Verified 11/13/22 16:44 sertraline HCl [From Zoloft] Allergy Rash/Hives Verified 11/13/22 16:44 sulfamethoxazole Allergy Anaphylaxis Verified 11/13/22 16:44 [From Bactrim] trimethoprim [From Bactrim] Allergy Anaphylaxis Verified 11/13/22 16:44 cholestyramine AdvReac DIZZY/CONFU Verified 11/13/22 16:44 SED Physical Exam Vitals: Vital Signs Temp Pulse Pulse Resp BP BP Pulse Ox 11/14/22 04:00 98.0 F 84 18 109/61 98 11/14/22 02:00 19 11/14/22 00:00 98.1 F 91 16 99/57 94 L 11/13/22 19:30 97.7 F 95 18 124/81 98 11/13/22 15:19 97.9 F 106 H 18 121/81 100 Intake and Output 11/13/22 11/13/22 11/14/22 14:59 22:59 06:59 Intake Total 560 55.455 Output Total 300 Balance 260 55.455 Intake: Intake, IV Titration 55.455 Amount Heparin Sod,Pork in 0.45% 55.455 NaCl 25,000 unit In 0.45 % NaCl 1 250ml.bag @ 18 UNITS/KG/HR 7.756 mls/hr IV .Q24H [facility] Rx#: [id number] Oral 560 Output: Urine 300 Other: Weight 43.091 kg 43.091 kg Results CBC & Chem 7: 11/13/22 15:52 11/13/22 15:52 Labs: Abnormal Lab Results - Last 24 Hours (Table) 11/13/22 11/13/22 11/13/22 Range/Units 15:52 15:52 15:52 RBC 3.59 L (3.80-5.40) m/uL Hgb 9.1 L (11.4-16.0) gm/dL Hct 29.6 L (34.0-46.0) % MCHC 30.6 L (31.0-37.0) g/dL RDW 18.0 H (11.5-15.5) % APTT (22.0-30.0) sec D-Dimer 0.96 H (<0.60) mg/L FEU Sodium 133 L (137-145) mmol/L BUN 79 H (7-17) mg/dL Creatinine 1.22 H (0.52-1.04) mg/dL AST 59 H (14-36) U/L 11/14/22 Range/Units 00:50 RBC (3.80-5.40) m/uL Hgb (11.4-16.0) gm/dL Hct (34.0-46.0) % MCHC (31.0-37.0) g/dL RDW (11.5-15.5) % APTT 96.5 H (22.0-30.0) sec D-Dimer (<0.60) mg/L FEU Sodium (137-145) mmol/L BUN (7-17) mg/dL Creatinine (0.52-1.04) mg/dL AST (14-36) U/L Thrombosis Risk Factor Assmnt - Choose All That Apply Each Factor Represents 1 point: Abnormal pulmonary function (COPD), Swollen legs (current) Each Risk Factor Represents 2 Points: Age 61-74 years Other congenital or acquired thrombophilia - If yes, enter type in comment: No Thrombosis Risk Factor Assessment Total Risk Factor Score: 4 Thrombosis Risk Factor Assessment Level: Moderate Risk Assessment and Plan Assessment: 76 year old female coming in for chest pain , i discussed the case with ED doc and I accepted the admission for acute PE and she is allergic to eliquis , with anticipated length of stay > 2 midngihts acute PE d dimer elevated CTA of the chest positive for acute PE , no RV strain trops negative allergic to eliquis and other blood thinners she could not name, allergy is hives ,which started a year ago . heparin gtt pulmonary consult pending venous doppler US of thelegs supplemental oxygen as needed blood work showed WBC 6.2 acute respiratory virus negative CKD 3 renal function bun 79, cr 1.27 Na 133 , K 4.5 avoid nephrotoxic meds anemia Hgb 9.1 denies GI bleeding left upper extremity weakness neuro consult chronic conditions afib rate controlled not on blood thinners , s/p watchman procedure hypertension metoprolol , cardizem hypothyroid , on levothyroxin CAD on ASA, plavix full code DVT PPX on heparin drip
[2022-11-14] MEDS: LEVOTHYROXINE 100 MCG TAB PO SCH (06:59)
[2022-11-14] MEDS: PANTOPRAZOLE 40 MG TABLET PO SCH ×2 (06:59→15:55)
[2022-11-14] MEDS ORDERED: PANTOPRAZOLE 40 MG TABLET PO SCH (07:30)
[2022-11-14] MEDS ORDERED: ASPIRIN 81 MG PO SCH (09:00)
[2022-11-14] MEDS: CLOPIDOGREL 75 MG TAB PO SCH (09:09)
[2022-11-14] MEDS: METOPROLOL TARTRATE 50 MG TAB PO SCH (09:09)
[2022-11-14] MEDS: DILTIAZEM ORAL 60 MG TAB PO SCH ×3 (09:09→19:56)
[2022-11-14] MEDS: AMIODARONE 200 MG TAB PO SCH (09:09)
[2022-11-14] MEDS: SPIRONOLACTONE 25 MG TAB PO SCH (09:09)
--- NOTE | 2022-11-14 10:44 | P.PN ---
Subjective Progress Note Date: 11/14/22 Patient reports ongoing pleuritic chest pain. She reports dyspnea with exertion, but not at rest. She has concerns over being on a blood thinner including "easy bleeding"as well as previous ALLERGIC reactions. Gen: awake, alert HEENT: normocephalic, atraumatic, good hearing acuity, moist mucous membranes Resp: good air exchange, breathing comfortably with no accessory muscle use CVS: good distal perfusion x 4, GI: soft, NTTP, ND : no SPT, no CVAT, alvarado catheter not present MSK: no pitting edema, no clubbing, hives with noted areas of bursa blisters Neuro: non-focal, moving all extremities Psych: cooperative, euthymic mood Hospital course: 76-year-old woman with medical history of hypertension, COPD, CAD, permanent atrial fibrillation status post watchman procedure 2 weeks ago, presented for pleuritic chest pain. In the emergency room, patient was afebrile, 121/81, heart rate 106, 100% on room air. CBC demonstrated anemia down to 9.1, otherwise unremarkable, anemias at baseline from 2 months ago. Basic metabolic panel shows sodium 133, BUN of 79, creatinine 1.22; creatinine is at baseline. Liver function test shows elevation of AST to 59, otherwise unremarkable. Troponin was less than 0.012, trended to less than 0.012. BNP was 1830. Coags are unremarkable. D-dimer was 0.96. UA is unremarkable. Influenza A, B, RSV, Covid are negative. CT angiography of the chest shows prolonged filling defects compatible with pulmonary embolism with no evidence of right heart strain, filling defect is in the left upper segmental pulmonary arterial vasculature. EKG shows atrial fibrillation with a rate of 106, right axis deviation. Venous Doppler did not show evidence of DVT. Case was discussed with the emergency room provider decision was made to admit the patient to the hospital for further evaluation. Patient was started on heparin for pulmonary embolism, pulmonology was consulted. Assessment: Acute subsegmental ulnar embolism, provoked Chronic kidney disease, stage III Chronic Anemia, contributed to by iron deficiency as well as chronic disease Left upper extremity weakness Hypertension Permanent atrial fibrillation Hypothyroidism CAD COPD without exacerbation Plan: Today, patient is afebrile, 128/74, heart rate 72, 93% on room air. 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 with need for prolonged anticoagulation Pulmonology consult appreciated Neurology consult pending Continue heparin drip, follow PTT for toxicity Patient is on Diltiazem 60 mg 3 times a day at home, we'll convert this to extended release on discharge Continue metoprolol 50 mg daily, amiodarone 20 mg daily Continue Plavix 75 mg daily Discontinue aspirin 81 mg daily Echocardiogram is pending Patient is full code Objective - Vital Signs Vital signs: Vital Signs Temp 97.8 F 11/14/22 09:08 Pulse 72 11/14/22 09:08 Resp 18 11/14/22 09:08 BP 128/74 11/14/22 09:08 Pulse Ox 93 L 11/14/22 09:08 FiO2 Intake & Output 11/13/22 11/14/22 11/14/22 18:59 06:59 18:59 Intake Total 615.455 Output Total 800 Balance -184.545 Weight 43.091 kg 43.091 kg Intake: Intake, IV Titration 55.455 Amount Heparin Sod,Pork in 0.45% 55.455 NaCl 25,000 unit In 0.45 % NaCl 1 250ml.bag @ 18 UNITS/KG/HR 7.756 mls/hr IV .Q24H [facility] Rx#: [id number] Oral 560 Output: Urine 800 - Labs CBC & Chem 7: 11/13/22 15:52 11/13/22 15:52 Labs: Abnormal Lab Results - Last 24 Hours (Table) 11/13/22 11/13/22 11/13/22 Range/Units 15:52 15:52 15:52 RBC 3.59 L (3.80-5.40) m/uL Hgb 9.1 L (11.4-16.0) gm/dL Hct 29.6 L (34.0-46.0) % MCHC 30.6 L (31.0-37.0) g/dL RDW 18.0 H (11.5-15.5) % APTT (22.0-30.0) sec D-Dimer 0.96 H (<0.60) mg/L FEU Sodium 133 L (137-145) mmol/L BUN 79 H (7-17) mg/dL Creatinine 1.22 H (0.52-1.04) mg/dL AST 59 H (14-36) U/L 11/14/22 Range/Units 00:50 RBC (3.80-5.40) m/uL Hgb (11.4-16.0) gm/dL Hct (34.0-46.0) % MCHC (31.0-37.0) g/dL RDW (11.5-15.5) % APTT 96.5 H (22.0-30.0) sec D-Dimer (<0.60) mg/L FEU Sodium (137-145) mmol/L BUN (7-17) mg/dL Creatinine (0.52-1.04) mg/dL AST (14-36) U/L
--- NOTE | 2022-11-14 10:44 | CA ---
Transthoracic Echo Report Name: Mavis Marquez Age: 76 Gender: F : 1945 Exam Date: 11/14/2022 07:59 Exam Location: [facility] Ht (in): 61 Wt (lb): 95 Ordering Physician: Elroy Dejesus Attending/Referring Phys: Speech And Language Clinician Kim Galicia RDCS Procedure CPT: Indications: evaluate for RV dysfunction Cardiac Hx: watchman procedure Technical Quality: Good Contrast 1: Total Dose (mL): Contrast 2: Total Dose (mL): MEASUREMENTS (Male / Female) Normal Values 2D ECHO LV Diastolic Diameter PLAX 3.4 cm 4.2 - 5.9 / 3.9 - 5.3 cm LV Systolic Diameter PLAX 2.3 cm IVS Diastolic Thickness 1.2 cm 0.6 - 1.0 / 0.6 - 0.9 cm LVPW Diastolic Thickness 1.3 cm 0.6 - 1.0 / 0.6 - 0.9 cm LV Relative Wall Thickness 0.7 RV Internal Dim ED PLAX 3.2 cm LA Systolic Diameter LX 3.3 cm 3.0 - 4.0 / 2.7 - 3.8 cm LV Diastolic Volume MOD 4C 43.8 cm??? LV Systolic Volume MOD 4C 23.9 cm??? LV Ejection Fraction MOD 4C 45.3 % LV Diastolic Length 4C 6.3 cm LV Systolic Length 4C 5.2 cm LV Diastolic Volume MOD 2C 32.2 cm??? LV Systolic Volume MOD 2C 14.7 cm??? LV Ejection Fraction MOD 2C 54.4 % LV Diastolic Length 2C 5.9 cm LV Systolic Length 2C 4.9 cm LA Volume 46.5 cm??? 18 - 58 / 22 - 52 cm??? M-MODE Aortic Root Diameter MM 2.7 cm MV E Point Septal Separation 0.1 cm AV Cusp Separation MM 1.8 cm DOPPLER AV Peak Velocity 118.8 cm/s AV Peak Gradient 5.6 mmHg AI Peak Velocity 340.3 cm/s AI Peak Gradient 46.3 mmHg AI Pressure Half Time 696.9 ms MV Area PHT 4.0 cm??? MV Deceleration Time 143.2 ms TR Peak Velocity 202.9 cm/s TR Peak Gradient 16.5 mmHg Right Ventricular Systolic Press 21.1 mmHg FINDINGS Left Ventricle Left ventricular ejection fraction is estimated at 50 to 55 %. Small left ventricular cavity. Mildly increased septal wall thickness. Mildly increased posterior wall thickness. Normal left ventricular wall motion. Right Ventricle Normal right ventricular size and function. Right ventricular systolic pressure within normal limits. A wire was noted in the right ventricle Right Atrium Normal right atrial size. Left Atrium Normal left atrial size. Mitral Valve Structurally normal mitral valve. Mitral annular calcification. Mild to moderate mitral regurgitation. Aortic Valve Trileaflet aortic valve. Thickened aortic valve without stenosis.mild aortic regurgitation. Tricuspid Valve Structurally normal tricuspid valve. moderate tricuspid regurgitation. Pulmonic Valve Structurally normal pulmonic valve. No pulmonic regurgitation. Pericardium Normal pericardium. No pericardial effusion. Aorta Normal size aortic root and proximal ascending aorta. CONCLUSIONS 1. Left ventricle systolic function borderline normal 2. Mild to moderate mitral was moderate tricuspid regurgitation and no evidence of pulmonary hypertension 3. Mild aortic regurgitation 4. A wire was noted in the right ventricle. Previewed by: Dr. Ellen Penn MD (Electronically Signed) Final Date: 14 November 2022 10:43
[2022-11-14 11:50] LABS: African American GFR (CKD) 66 (>60 ml/min/1.73 sqM); Anion Gap 7 mmol/L; Blood Urea Nitrogen 36 mg/dL (7-17); Calcium 9.1 mg/dL (8.4-10.2); Carbon Dioxide 24 mmol/L (22-30); Chloride 108 mmol/L (98-107); Glucose 103 mg/dL (74-99); Non-African American GFR(CKD) 57 (>60 ml/min/1.73 sqM); Potassium 3.6 mmol/L (3.5-5.1); Sodium 139 mmol/L (137-145)
[2022-11-14 12:02] VITALS: BMI 17.9
[2022-11-14 12:23] LABS: Anisocytosis Slight; Basophils # (A) 0.1 k/uL (0-0.2); Basophils % (A) 1 %; Eosinophils # (A) 0.4 k/uL (0-0.7); Eosinophils % (A) 6 %; HGB 9.5 gm/dL (11.4-16.0); Hypochromasia Marked; Lymphocytes # (A) 1.6 k/uL (1.0-4.8); Lymphocytes % (A) 25 %; MCH 25.6 pg (25.0-35.0); MCHC 29.8 g/dL (31.0-37.0); MCV 85.8 fL (80.0-100.0); Mean Platelet Volume 7.5; Monocytes # (A) 0.3 k/uL (0-1.0); Monocytes % (A) 5 %; Neutrophils % (A) 61 %; Platelet Count 347 k/uL (150-450); RBC 3.73 m/uL (3.80-5.40); RDW 17.7 % (11.5-15.5); WBC 6.6 k/uL (3.8-10.6)
--- NOTE | 2022-11-14 13:38 | P.CNNES ---
History of Present Illness Consult date: 11/14/22 Requesting physician: Edmund Adams Reason for Consult: HUMPHREY russ History of Present Illness: Patient is a 76-year-old right-handed female, otherwise healthy, has history of atrial fibrillation for which she underwent watchman device on 11/01/2022. Patient came to the hospital because she woke up 2 AM 2 days ago, with heart hurting whenever she was breathing. She couldn't breathe. Vital signs on arrival+++++++++++ Neurology was consulted for subacute to chronic left arm weakness. Patient states that about a month prior to the placement of watchman device (that was performed on 11/01/2022), patient states that she woke up one morning and felt her left arm was numb, pointing from mid upper arm down to about 4 fingerbreadth above the wrist region. She felt that she may have slept the wrong way. She was otherwise fine, was able to move her left arm and function well. About a week prior to the watchman device placement, one morning, she woke up with acute onset of weakness of her left arm and the numbness that extended all the way to the shoulder and down to the hand. She states that her left hand tries to cord and cannot automatic operator with the left hand. Patient does admit to having left shoulder pain, but no radiation to the hand. It feels like she has overused the shoulder, and rates it 8/10. Patient denies any droopy face, slurred speech or any problem with the vision. She does have issues with her left leg related to her previous left hip surgery for which a thu was placed after a fracture of the femur in November 2021. Apparently the bone was not growing because of osteoporosis, and the equipment started moving around gripping the tissues. She the second left hip surgery in July 2022. She has chronic issues with the left leg related to these surgeries. Patient has history of hypertension. Denies diabetes. Never smoked tobacco, does not drink alcohol. She has history of pacemaker placement and cardiac ablation 5 years ago. She does have significant arthritis in the neck. Patient had undergone computed tomography scan of the head and cervical spine for left arm weakness on 09/20/2022, which revealed+++++++++++++++++++ Review of Systems Constitutional: Reports weight loss, Denies chills, Denies fever Eyes: bilateral blurred vision (Not new, watching cataracts), denies diplopia, denies pain Ears: deny: decreased hearing, ear discharge Ears, nose, mouth and throat: Reports sore throat, Denies headache Cardiovascular: Reports chest pain, Reports shortness of breath Respiratory: Denies cough, Denies excessive sputum Gastrointestinal: Denies abdominal pain, Denies diarrhea, Denies nausea, Denies vomiting Genitourinary: Denies dysuria, Denies hematuria Musculoskeletal: Reports low back pain (Broke twice, now 11/30), Reports neck pain (Only when turns her head to right or left), Denies myalgias Musculoskeletal: left: hip pain (Since hip surgery), shoulder pain Integumentary: Denies pruritus, Denies rash Neurological: Reports as per HPI Psychiatric: Denies anxiety, Denies depression Endocrine: Reports fatigue, Reports weight change Hematologic/Lymphatic: Denies easy bleeding, Denies easy bruising Past Medical History Past Medical History: Atrial Fibrillation, Blood Disorder, Coronary Artery Disease (CAD), Chest Pain / Angina, Heart Failure, COPD, CVA/TIA, Fibromyalgia, GERD/Reflux, GI Bleed, Hypertension, Myocardial Infarction (MO), Musculoskeletal Disorder, Osteoarthritis (OA), Thyroid Disorder Additional Past Medical History / Comment(s): Pacemaker for Syncope/Tachybrady Syndrome. Hx RHEUMATIC FEVER. Heart murmur, chronic back and bilateral shoulder pain. SEVERE OSTEOPROSIS, Vertigo, Degenerative Joint Disease, GI ulcers, esophagitis/esophageal stricture, partially blocked bile duct, PROBLEMS WITH SWALLOWING, "no symptoms of COPD." FALLS "Cannot lie down for long without having back pain.". Left hip open reduction internal fixation of some trochanteric comminuted femur fracture in November 2021 Last Myocardial Infarction Date:: 2002 History of Any Multi-Drug Resistant Organisms: None Reported Past Surgical History: Appendectomy, Cardiac Ablation, Cholecystectomy, Ear Surgery, Heart Catheterization, Hysterectomy, Orthopedic Surgery, Pacemaker, Tonsillectomy Additional Past Surgical History / Comment(s): ORIF LEFT LOWER ARM, HAS HARDWARE, numerous DILATATION OF ESOPHAGUS, biopsies were negative, colonoscopy, Pacemaker (ADAPTA) placed 07/07 at [facility], bilateral stap edectomies(stainless steel in both ears), Hiatal Hernia repair, inguinal and femoral hernia repairs, "cement placed in back, due to broken back/pelvis". Left Femur Surgery 12/09/21 Past Anesthesia/Blood Transfusion Reactions: Family History of Problems w/ Anesthesia, Motion Sickness, Postoperative Nausea & Vomiting (PONV) Additional Past Anesthesia/Blood Transfusion Reaction / Comment(s): No problems with prior blood transfusion. BROTHER HAS PONV. Type of Cardiac Device: Permanent Pacemaker Device Placement Date:: 06/2016 Past Psychological History: No Psychological Hx Reported Smoking Status: Never smoker Past Alcohol Use History: None Reported Past Drug Use History: None Reported - Past Family History Brother(s) Family Medical History: Cancer Additional Family Medical History / Comment(s): Throat cancer. Father Family Medical History: Pneumonia Additional Family Medical History / Comment(s): EMPHYSEMA. Mother Family Medical History: COPD, Rheumatoid Arthritis (RA) Additional Family Medical History / Comment(s): EMPHYSEMA. Medications and Allergies Home Medications Medication Instructions Recorded Confirmed Type SUMAtriptan succinate [Imitrex] 50 mg PO TID PRN 02/15/16 11/13/22 History L.acidoph,Paracasei, B.lactis 1 cap PO DAILY 02/06/20 11/13/22 History [Probiotic] Metoprolol Tartrate [Lopressor] 50 mg PO DAILY 10/05/20 11/13/22 History Spironolactone [Aldactone] 25 mg PO DAILY 08/04/21 11/13/22 History Pantoprazole [Protonix] 40 mg PO BID 12/27/21 11/13/22 History Amiodarone [Cordarone] 200 mg PO DAILY 02/03/22 11/13/22 History Furosemide [Lasix] 40 mg PO BID 02/03/22 11/13/22 History Potassium Chloride ER [K-Dur 10] 40 meq PO BID 02/03/22 11/13/22 History Acetaminophen [Tylenol Extra 1,000 mg PO QID PRN 09/20/22 11/13/22 History Strength] Buprenorphine [Butrans 10 MCG/HOUR] 1 patch TRANSDERM TH 09/20/22 11/13/22 History Furosemide [Lasix] 40 mg PO BID PRN 09/20/22 11/13/22 History Mupirocin 2% Oint [Bactroban 2% 1 applic TOPICAL BID 09/20/22 11/13/22 History Oint] Ondansetron [Zofran] 4 mg PO TID PRN 09/20/22 11/13/22 History Sennosides [Senokot] 8.6 mg PO BID 09/20/22 11/13/22 History Triamcinolone 0.5% Cream [Kenalog 1 applic TOPICAL DAILY 09/20/22 11/13/22 History 0.5% Cream] dilTIAZem HCL 60 mg PO TID 09/20/22 11/13/22 History hydrOXYzine pamoate [Vistaril] 25 mg PO Q6H PRN 09/20/22 11/13/22 History Acetaminophen [Tylenol] 325 mg PO Q4H PRN 11/13/22 11/13/22 History Aspirin EC [Ecotrin Low Dose] 81 mg PO DAILY 11/13/22 11/13/22 History Clopidogrel [Plavix] 75 mg PO DAILY 11/13/22 11/13/22 History Dicyclomine [Bentyl] 10 mg PO TID 11/13/22 11/13/22 History Doxepin HCl 6 mg PO HS 11/13/22 11/13/22 History Doxycycline Hyclate 100 mg PO DAILY 11/13/22 11/13/22 History HYDROcodone/APAP 5-325MG [Peacham 1 tab PO Q4H PRN 11/13/22 11/13/22 History 5-325] Levothyroxine Sodium [Synthroid] 100 mcg PO DAILY 11/13/22 11/13/22 History Melatonin [Melatonin ER] 10 mg PO HS PRN 11/13/22 11/13/22 History Allergies Allergy/AdvReac Type Severity Reaction Status Date / Time adhesive Allergy RASH FROM Verified 11/13/22 16:44 EKG STICKERS apixaban [From Eliquis] Allergy Rash/Hives Verified 11/13/22 16:44 celecoxib [From Celebrex] Allergy Rash/Hives Verified 11/13/22 16:44 sertraline HCl [From Zoloft] Allergy Rash/Hives Verified 11/13/22 16:44 sulfamethoxazole Allergy Anaphylaxis Verified 11/13/22 16:44 [From Bactrim] trimethoprim [From Bactrim] Allergy Anaphylaxis Verified 11/13/22 16:44 cholestyramine AdvReac DIZZY/CONFU Verified 11/13/22 16:44 SED Physical Examination - Vital Signs Vital Signs: Vital Signs Temp Pulse Pulse Resp BP BP Pulse Ox 11/14/22 11:40 78 18 108/68 94 L 11/14/22 09:08 97.8 F 72 18 128/74 93 L 11/14/22 04:00 98.0 F 84 18 109/61 98 11/14/22 02:00 19 11/14/22 00:00 98.1 F 91 16 99/57 94 L 11/13/22 19:30 97.7 F 95 18 124/81 98 11/13/22 15:19 97.9 F 106 H 18 121/81 100 Intake and Output 11/13/22 11/14/22 11/14/22 22:59 06:59 14:59 Intake Total 560 55.455 222 Output Total 300 500 Balance 260 -444.545 222 Intake: Intake, IV Titration 55.455 Amount Heparin Sod,Pork in 0.45% 55.455 NaCl 25,000 unit In 0.45 % NaCl 1 250ml.bag @ 18 UNITS/KG/HR 7.756 mls/hr IV .Q24H [facility] Rx#: [id number] Oral 560 222 Output: Urine 300 500 Other: Weight 43.091 kg 43.091 kg 43.091 kg Patient is an elderly female, very pleasant, in no acute distress. Patient is alert awake oriented to time place and person. Speech and language functions are normal. Patient can name and repeat very well. No aphasia or dysarthria. Attention, concentration and fund of knowledge is adequate. On cranial nerve examination, pupils are equal, round and reacting to light, vi sual nunez are full on confrontation, with no neglect on double simultaneous stimulation. Extraocular muscles are intact with no nystagmus. Face is symmetric, tongue protrudes to the midline. Palatal elevation and sensation normal, hearing and shoulder shrug normal, facial sensation normal. On muscle strength testing, there is left pronation, slightly upward drift, and her fingers closed in the automatic operator. The muscle strength is (right/left) deltoid 5/5-, biceps 5/5-4+, triceps 5/4, automatic operator 5/4. In the lower limbs, hip flexion 5/4 (pain), ankle dorsiflexion 5/5. Deep tendon reflexes are (right/left) biceps 1/1, brachioradialis 1/0, triceps 1/1, knee 1+/0, ankle trace/trace, and plantars downgoing bilaterally. Sensory to touch is decreased in the left arm distally and proximally as compar ed to the right side. Sensations are equal on the face in the lower limbs. There is no neglect on double simultaneous stimulation. Cerebellar function showed no ataxia for [id number] testing. No dysdiadochokinesia. No ataxia for [id number] testing on either side. Tone and bulk of muscles normal. Gait deferred.. On general examination, there is no carotid bruit or murmur, S1-S2 audible. Chest is clear on consultation. Abdomen is soft nontender. No organomegaly, bowel sounds present. Peripheral pulses are present. No edema. Results - Laboratory Findings CBC and BMP: 11/14/22 11:09 11/14/22 11:09 Abnormal Lab Findings: Abnormal Labs 11/13/22 11/13/22 11/13/22 15:52 15:52 15:52 RBC 3.59 L Hgb 9.1 L Hct 29.6 L MCHC 30.6 L RDW 18.0 H APTT D-Dimer 0.96 H Sodium 133 L Chloride BUN 79 H Creatinine 1.22 H Glucose AST 59 H 11/14/22 11/14/22 11/14/22 00:50 11:09 11:09 RBC 3.73 L Hgb 9.5 L Hct 32.0 L MCHC 29.8 L RDW 17.7 H APTT 96.5 H D-Dimer Sodium Chloride 108 H BUN 36 H Creatinine Glucose 103 H AST 11/14/22 11:09 RBC Hgb Hct MCHC RDW APTT 47.2 H D-Dimer Sodium Chloride BUN Creatinine Glucose AST Assessment and Plan Assessment: * Left arm weakness, unclear cause. Suspect peripheral in nature. Rule out radiculopathy versus plexopathy. Central cause also possible, but less likely. * Hypertension * History of atrial fibrillation, status post watchman device 11/01/2022 * Pacemaker for last 5 years. * History of cardiac ablation. Plan: * Repeat CT head rule out any subacute to chronic stroke. We will compare her current CT with the previous CT head from 09/20/2022. * Patient cannot have MRI because of pacemaker. * If the repeat CT head is normal, would suggest EMG and nerve conduction studies of the left upper extremity to rule out plexopathy versus radiculopathy. * 2-D echo revealed left ventricular systolic function borderline normal with EF 50-55%. Mildly increased septal wall thickness. Normal left atrial size. Mild to moderate mitral regurgitation. * Neurology will follow. Thank you for the consult.
[2022-11-14] MEDS: SODIUM CHLORIDE 0.9% 1,000 ML IV SCH (14:29)
--- NOTE | 2022-11-14 15:32 | CT ---
EXAMINATION TYPE: CT brain wo con DATE OF EXAM: 11/14/2022 COMPARISON: 09/20/2022 HISTORY: 76-year-old female LT arm weakness, compare to 09/20/22 CT for CVA. TECHNIQUE: Examination was done in axial plane without intravenous contrast. Coronal and sagittal r econstructions performed. CT DLP: 1173.4 mGycm Automated exposure control for dose reduction was used. FINDINGS: There is no evidence of acute intracranial hemorrhage, acute ischemic changes, mass, mass-effect, or extra-axial fluid collection. There is no effacement of cerebral sulci or basal subarachnoid cister ns. There is no hydrocephalus. There is no midline shift. Blanchard-white matter distinction is preserv ed. Atherosclerotic calcifications within the carotid siphons. Moderate patchy and confluent white matter hypodensities in both cerebral hemispheres. Slight rightward nasal septal deviation. Mild mucosal thickening right maxillary sinus and bilateral ethmoid air cells. Mastoid air cells are well pneumatized. Orbits and globes are intact. IMPRESSION: Moderate burden of chronic small vessel ischemic disease. No acute intracranial abnormality seen. If concern for subtle acute ischemia, consider MRI. Mild chronic ethmoid and right maxillary sinus disease.
[2022-11-14] MEDS: diphenhydrAMINE 25 MG CAP PO PRN ×2 (15:56→19:56)
[2022-11-14] MEDS: HYDROcodone/APAP 5-325MG 1 EACH TAB PO PRN ×2 (15:56→23:59)
[2022-11-14] MEDS: FOLIC ACID 1 MG TAB PO SCH (16:28)
--- NOTE | 2022-11-14 16:56 | P.CONS ---
History of Present Illness - Reason for Consult Consult date: 11/14/22 PE, allergy to DOAC Requesting physician: Collins Clayton - Chief Complaint chest pain with inspiration - History of Present Illness Ms. Marquez is a pleasant 76-year-old female we have been asked to see as she has been diagnosed with an acute pulmonary embolism status post watchman's procedure 11/01 with a history of allergy to eliquis and Xarelto. She was started on el iquis about a year ago for a-fib, 3 days on it she ended up with severe weeping hives on her back. This was discontinued. She was tried on Xarelto and the hives worsened so, she has not been on any anticoagulation for the last year. These wounds on her back are still trying to heal, she sees wound care. Patient had a femur fracture last fall, since then she has had some decreased mobility issues. Sshe reports that she has to move her left upper extremity with her other arm and she cannot open her lt hand spontaneously. On admission patient states that she was having up chest pain on the left when she would take a deep breath, this was persistent, she denied any associated symptoms She denied any other provoking factors. In the ER CTA reports a filling defect within the left upper lung pulmonary arterial vasculature, no evidence of right heart strain, mild cardiomegaly with coronary atherosclerosis. Echo showing LVEF 50-55%. Dopplers of the bilateral lower extremities were negative for DVT. Patient denies any history of DVT or blood clots. Mod anemia, hemoglobin of 9.5, MCHC is low at 29.8, RDW 17.7, BUN 79, creatinine 1.22. Patient states she has had iron infusions in the past. She reports esophageal strictures requiring follow-up and occasional dilation Review of Systems 10 point ROS is neg except as stated in HPI Past Medical History Past Medical History: Atrial Fibrillation, Blood Disorder, Coronary Artery Disease (CAD), Chest Pain / Angina, Heart Failure, COPD, CVA/TIA, Fibromyalgia, GERD/Reflux, GI Bleed, Hypertension, Myocardial Infarction (GA), Musculoskeletal Disorder, Osteoarthritis (OA), Thyroid Disorder Additional Past Medical History / Comment(s): Pacemaker for Syncope/Tachybrady Syndrome. Hx RHEUMATIC FEVER. Heart murmur, chronic back and bilateral shoulder pain. SEVERE OSTEOPROSIS, Vertigo, Degenerative Joint Disease, GI ulcers, esophagitis/esophageal stricture, partially blocked bile duct, PROBLEMS WITH SWALLOWING, "no symptoms of COPD." FALLS "Cannot lie down for long without having back pain.". Left hip open reduction internal fixation of some trochanteric comminuted femur fracture in November 2021 Last Myocardial Infarction Date:: 2002 History of Any Multi-Drug Resistant Organisms: None Reported Past Surgical History: Appendectomy, Cardiac Ablation, Cholecystectomy, Ear Surgery, Heart Catheterization, Hysterectomy, Orthopedic Surgery, Pacemaker, Tonsillectomy Additional Past Surgical History / Comment(s): ORIF LEFT LOWER ARM, HAS HARDWARE, numerous DILATATION OF ESOPHAGUS, biopsies were negative, colonoscopy, Pacemaker (ADAPTA) placed 07/07 at [facility], bilateral stapedectomies(stainless steel in both ears), Hiatal Hernia repair, inguinal and femoral hernia repairs, "cement placed in back, due to broken back/pelvis". Left Femur Surgery 12/09/21 Past Anesthesia/Blood Transfusion Reactions: Family History of Problems w/ Anesthesia, Motion Sickness, Postoperative Nausea & Vomiting (PONV) Additional Past Anesthesia/Blood Transfusion Reaction / Comm: No problems with prior blood transfusion. BROTHER HAS PONV. Type of Cardiac Device: Permanent Pacemaker Device Placement Date:: 06/2016 Past Psychological History: No Psychological Hx Reported Smoking Status: Never smoker Past Alcohol Use History: None Reported Past Drug Use History: None Reported - Past Family History Brother(s) Family Medical History: Cancer Additional Family Medical History / Comment(s): Throat cancer. Father Family Medical History: Pneumonia Additional Family Medical History / Comment(s): EMPHYSEMA. Mother Family Medical History: COPD, Rheumatoid Arthritis (RA) Additional Family Medical History / Comment(s): EMPHYSEMA. Medications and Allergies Home Medications Medication Instructions Recorded Confirmed Type SUMAtriptan succinate [Imitrex] 50 mg PO TID PRN 02/15/16 11/13/22 History L.acidoph,Paracasei, B.lactis 1 cap PO DAILY 02/06/20 11/13/22 History [Probiotic] Metoprolol Tartrate [Lopressor] 50 mg PO DAILY 10/05/20 11/13/22 History Spironolactone [Aldactone] 25 mg PO DAILY 08/04/21 11/13/22 History Pantoprazole [Protonix] 40 mg PO BID 12/27/21 11/13/22 History Amiodarone [Cordarone] 200 mg PO DAILY 02/03/22 11/13/22 History Furosemide [Lasix] 40 mg PO BID 02/03/22 11/13/22 History Potassium Chloride ER [K-Dur 10] 40 meq PO BID 02/03/22 11/13/22 History Acetaminophen [Tylenol Extra 1,000 mg PO QID PRN 09/20/22 11/13/22 History Strength] Buprenorphine [Butrans 10 MCG/HOUR] 1 patch TRANSDERM TH 09/20/22 11/13/22 History Furosemide [Lasix] 40 mg PO BID PRN 09/20/22 11/13/22 History Mupirocin 2% Oint [Bactroban 2% 1 applic TOPICAL BID 09/20/22 11/13/22 History Oint] Ondansetron [Zofran] 4 mg PO TID PRN 09/20/22 11/13/22 History Sennosides [Senokot] 8.6 mg PO BID 09/20/22 11/13/22 History Triamcinolone 0.5% Cream [Kenalog 1 applic TOPICAL DAILY 09/20/22 11/13/22 History 0.5% Cream] dilTIAZem HCL 60 mg PO TID 09/20/22 11/13/22 History hydrOXYzine pamoate [Vistaril] 25 mg PO Q6H PRN 09/20/22 11/13/22 History Acetaminophen [Tylenol] 325 mg PO Q4H PRN 11/13/22 11/13/22 History Aspirin EC [Ecotrin Low Dose] 81 mg PO DAILY 11/13/22 11/13/22 History Clopidogrel [Plavix] 75 mg PO DAILY 11/13/22 11/13/22 History Dicyclomine [Bentyl] 10 mg PO TID 11/13/22 11/13/22 History Doxepin HCl 6 mg PO HS 11/13/22 11/13/22 History Doxycycline Hyclate 100 mg PO DAILY 11/13/22 11/13/22 History HYDROcodone/APAP 5-325MG [[place] 1 tab PO Q4H PRN 11/13/22 11/13/22 History 5-325] Levothyroxine Sodium [Synthroid] 100 mcg PO DAILY 11/13/22 11/13/22 History Melatonin [Melatonin ER] 10 mg PO HS PRN 11/13/22 11/13/22 History Allergies Allergy/AdvReac Type Severity Reaction Status Date / Time adhesive Allergy RASH FROM Verified 11/13/22 16:44 EKG STICKERS apixaban [From Eliquis] Allergy Rash/Hives Verified 11/13/22 16:44 celecoxib [From Celebrex] Allergy Rash/Hives Verified 11/13/22 16:44 sertraline HCl [From Zoloft] Allergy Rash/Hives Verified 11/13/22 16:44 sulfamethoxazole Allergy Anaphylaxis Verified 11/13/22 16:44 [From Bactrim] trimethoprim [From Bactrim] Allergy Anaphylaxis Verified 11/13/22 16:44 cholestyramine AdvReac DIZZY/CONFU Verified 11/13/22 16:44 SED Physical Exam Vitals: Vital Signs Temp Pulse Pulse Resp BP BP Pulse Ox 11/14/22 11:40 78 18 108/68 94 L 11/14/22 09:08 97.8 F 72 18 128/74 93 L 11/14/22 04:00 98.0 F 84 18 109/61 98 11/14/22 02:00 19 11/14/22 00:00 98.1 F 91 16 99/57 94 L 11/13/22 19:30 97.7 F 95 18 124/81 98 Intake and Output 11/14/22 11/14/22 11/14/22 06:59 14:59 22:59 Intake Total 55.455 444 Output Total 500 Balance -444.545 444 Intake: Intake, IV Titration 55.455 Amount Heparin Sod,Pork in 0.45% 55.455 NaCl 25,000 unit In 0.45 % NaCl 1 250ml.bag @ 18 UNITS/KG/HR 7.756 mls/hr IV .Q24H [facility] Rx#: [id number] Oral 444 Output: Urine 500 Other: # Voids 2 Weight 43.091 kg 43.091 kg - Constitutional General appearance: average body habitus, cooperative, no acute distress - EENT Eyes: anicteric sclerae, EOMI ENT: hearing grossly normal - Neck Neck: no lymphadenopathy - Respiratory Respiratory: bilateral: CTA - Cardiovascular Rhythm: regular Heart sounds: normal: S1, S2 Abnormal Heart Sounds: no systolic murmur, no diastolic murmur, no rub, no S3 Gallop, no S4 Gallop, no click, no other leg Peripheral Edema: bilateral: 2+ (non-pitting) - Gastrointestinal General gastrointestinal: no absent bowel sounds, no decreased bowel sounds, no distended, no hepatomegaly, no hyperactive bowel sounds, normal bowel sounds, no organomegaly, no rigid, no scaphoid, soft, no splenomegaly, no tenderness, no umbilical hernia, no ventral hernia - Integumentary About 8-10 skin lesions on the back, some are scabbed over, scant amt of drainage from some, no signs or symptoms of infection. - Neurologic Neurologic: CNII-XII intact - Musculoskeletal Musculoskeletal: generalized weakness - Psychiatric Psychiatric: A&O x's 3, appropriate affect, intact judgment & insight Results CBC & Chem 7: 11/14/22 11:09 11/14/22 11:09 Labs: Abnormal Lab Results - Last 24 Hours (Table) 11/13/22 11/13/22 11/14/22 Range/Units 15:52 15:52 00:50 RBC (3.80-5.40) m/uL Hgb (11.4-16.0) gm/dL Hct (34.0-46.0) % MCHC (31.0-37.0) g/dL RDW (11.5-15.5) % APTT 96.5 H (22.0-30.0) sec D-Dimer 0.96 H (<0.60) mg/L FEU Sodium 133 L (137-145) mmol/L Chloride (98-107) mmol/L BUN 79 H (7-17) mg/dL Creatinine 1.22 H (0.52-1.04) mg/dL Glucose (74-99) mg/dL AST 59 H (14-36) U/L 11/14/22 11/14/22 11/14/22 Range/Units 11:09 11:09 11:09 RBC 3.73 L (3.80-5.40) m/uL Hgb 9.5 L (11.4-16.0) gm/dL Hct 32.0 L (34.0-46.0) % MCHC 29.8 L (31.0-37.0) g/dL RDW 17.7 H (11.5-15.5) % APTT 47.2 H (22.0-30.0) sec D-Dimer (<0.60) mg/L FEU Sodium (137-145) mmol/L Chloride 108 H (98-107) mmol/L BUN 36 H (7-17) mg/dL Creatinine (0.52-1.04) mg/dL Glucose 103 H (74-99) mg/dL AST (14-36) U/L CT scan - chest: report reviewed Venous US: report reviewed Assessment and Plan (1) Pulmonary embolism Current Visit: Yes Status: Acute Priority: High Code(s): I26.99 - OTHER PULMONARY EMBOLISM WITHOUT ACUTE COR PULMONALE SNOMED Code(s): 92762994 (2) Anemia Current Visit: No Status: Chronic Priority: Medium Code(s): D64.9 - ANEMIA, UNSPECIFIED SNOMED Code(s): 778017853 Plan: Provoked pulmonary embolism -Patient had watchman's procedure 11/01. She reports decreased mobility secondary to a femur fracture last fall. -Documented allergies to eliquis and xarelto. -Recommendation is for 3 months of full dose anticoagulation for provoked PE. After discussion with the patient it was felt that Lovenox would be the best treatment choice for her (decreased need for appointments, blood tests and medication adjustments). Will send prescription for co-pay verification and consult Case Management to f/u. Anemia -Labs ordered -We will recommend supplements based on laboratory results -Follow-up with Hematology Neurology has been consulted for patient's left upper extremity weakness attests: I have seen and examined patient, performed H&P, developed impression and plan of care. Discussed with dictator. Agree with franko guo, dictated as a scribe.
[2022-11-14] MEDS ORDERED: DOXEPIN HCL 6 MG PO SCH (21:00)
[2022-11-14 22:10] LABS: % Iron Saturation 4.19 (12.00-45.00); Ferritin 25.3 ng/mL (10.0-291.0); Iron 18 UG/DL (50-170); Total Iron Binding Capacity 430 UG/DL (228-460)
[2022-11-15] MEDS: MORPHINE SULFATE 4 MG/ML SYRINGE IV PRN (04:19)
[2022-11-15] MEDS: SODIUM CHLORIDE 0.9% 1,000 ML IV SCH ×2 (04:27→12:01)
[2022-11-15] MEDS: ONDANSETRON 4 MG/2 ML VIAL IVP PRN ×2 (05:18→11:59)
[2022-11-15] MEDS: PANTOPRAZOLE 40 MG TABLET PO SCH (06:31)
[2022-11-15] MEDS: LEVOTHYROXINE 100 MCG TAB PO SCH (06:31)
[2022-11-15] MEDS: HEPARIN SOD,PORK IN 0.45% NACL 25,000 UNIT in 0.45% NACL 1 250ML.BAG IV SCH (07:35)
[2022-11-15 07:57] VITALS: BP 126/71; PULSE 77; RESP 16; TEMP 97.8
[2022-11-15] MEDS: HYDROcodone/APAP 5-325MG 1 EACH TAB PO PRN (08:07)
[2022-11-15] MEDS: SPIRONOLACTONE 25 MG TAB PO SCH (08:07)
[2022-11-15] MEDS: METOPROLOL TARTRATE 50 MG TAB PO SCH (08:07)
[2022-11-15] MEDS: AMIODARONE 200 MG TAB PO SCH (08:07)
[2022-11-15] MEDS: FOLIC ACID 1 MG TAB PO SCH (08:07)
[2022-11-15] MEDS: DILTIAZEM ORAL 60 MG TAB PO SCH (08:07)
[2022-11-15] MEDS: CLOPIDOGREL 75 MG TAB PO SCH (08:08)
[2022-11-15 08:19] LABS: Anisocytosis Slight; HCT 29.4 % (34.0-46.0); HGB 8.4 gm/dL (11.4-16.0); Hypochromasia Marked; MCH 24.9 pg (25.0-35.0); MCHC 28.4 g/dL (31.0-37.0); MCV 87.6 fL (80.0-100.0); Mean Platelet Volume 7.4; Platelet Count 288 k/uL (150-450); RBC 3.36 m/uL (3.80-5.40); RDW 17.7 % (11.5-15.5); WBC 7.1 k/uL (3.8-10.6)
[2022-11-15] MEDS ORDERED: ENOXAPARIN 60 MG/0.6 ML SYRINGE SQ SCH (09:00)
[2022-11-15] MEDS ORDERED: SODIUM FERRIC GLUCONAT-SUCROSE 125 MG in SODIUM CHLORIDE 0.9% 100 ML IVPB SCH (10:00)
--- NOTE | 2022-11-15 13:09 | P.PN ---
Subjective Progress Note Date: 11/15/22 Principal diagnosis: Pulmonary embolism. I am seeing this patient in new consultation today 11/14/2022 for a left upper lung segmental pulmonary embolism. Patient is a 76-year-old white female with medical history significant for atrial fibrillation in which she is not on any a nticoagulation due to being ALLERGIC to Eliquis and Xarelto. She states that she breaks out in hives when taking them. She did have a watchman procedure performed on 11/01/2022 at [facility]. She also has history of coronary artery disease, heart failure, pacemaker implantation for tachybradycardia arrhythmias, COPD, CVA/TIA, esophageal strictures, and multiple other comorbidities. Her PCP is Dr. Mendes. Patient came into the emergency room yesterday afternoon complaining of shortness of breath over the past 4 days. She did awake last night with severe chest pain. Chest pain was nonradiating, increased with inspiration. On arrival to the emergency room, chest CTA showed a showed a filling defect within the left upper lung segmental pulmonary artery vasculature, consistent with pulmonary embolus. There is no CT evidence of right heart strain reported. Troponin is less than 0.012. NT proBNP was mildly elevated at 1830. Patient was started on high intensity hepar in per protocol. She is currently lying in bed, on room air, in no acute distress. She is hemodynamically stable. Patient denies any previous episode of DVT or PE. She denies any familial history, trauma, prolonged travel. No unilateral swelling of lower extremities, and venous Doppler of the lower extremities was negative for DVT. She does report new onset left arm weakness and numbness, that started approximately 2 months ago, in which she follows up on an outpatient basis with her PCP. She did have a follow-up CT of the brain and C-spine on September 20rst which showed no acute intracranial abnormality. It did show multilevel osteoarthritis throughout the C-spine and at least mild spinal canal stenosis. She is already on a combination of aspirin and Plavix initiated after her watchman procedure. CBC on arrival showed a WBC count of 6.2, hemoglobin 9.1, hematocrit 29.6, platelets 334. Patient's anemia appears chronic. BMP shows sodium 133, potassium 4.5, chloride 101, serum bicarbonate 22, BUN 79, creatinine 1.22, glucose 95. Normal saline is infusing at 75 mL per hour. Negative for influenza, RSV, COVID-19. She denies any infectious symptoms. ECG shows atrial fibrillation with controlled ventricular rate; no acute ischemic changes seen. Patient is hemodynamically stable and being monitored on the cardiac stepdown unit. Progress note dated 11/15/2022. 76-year-old female seen in consultation yesterday. She was admitted with a left upper lung pulmonary embolism. The patient's currently on Lovenox. She is clinically not on any oxygen, denies any shortness of breath, or chest pain. She's not receiving any IV fluids. She appears quite stable. She has been taught to give herself the Lovenox injections. White count 7.1, hemoglobin 8.4, hematocrit 29.4, with a platelet count that's normal. No additional labs noted. No acute intracranial abnormality seen on brain CT. Objective - Vital Signs Vital signs: Vital Signs Temp 97.8 F 11/15/22 07:56 Pulse 77 11/15/22 07:56 Resp 16 11/15/22 07:56 BP 126/71 11/15/22 07:56 Pulse Ox 97 11/15/22 07:56 FiO2 Intake & Output 11/14/22 11/15/22 11/15/22 18:59 06:59 18:59 Intake Total 902 305.545 Output Total 400 Balance 902 -400 305.545 Weight 43.091 kg Intake: Intake, IV Titration 194.545 Amount Heparin Sod,Pork in 0.45% 194.545 NaCl 25,000 unit In 0.45 % NaCl 1 250ml.bag @ 18 UNITS/KG/HR 7.756 mls/hr IV .Q24H [facility] Rx#: [id number] Oral 902 111 Output: Urine 400 Other: # Voids 1 - Exam No acute distress, oriented 3. HEENT examination is grossly unremarkable. Mucous membranes are moist. No oral lesions. Neck supple. Full range of motion. No adenopathy thyromegaly or neck vein distention. Cardiovascular examination reveals regular rhythm rate. S1-S2 normal. No S3 or S4. No discernible murmur noted. Heart rate 77 bpm. Lungs reveal clear breath sounds. Breath sounds are equal bilaterally. No adventitious lung sounds including wheezes rhonchi or crackles. Saturation is 97% on room air. Abdomen soft bowel sounds are heard. No masses or tenderness. Extremities are intact. No cyanosis clubbing or edema. Skin is without rash or lesion. Neurologic examination is brief but nonfocal. - Labs CBC & Chem 7: 11/15/22 07:46 11/14/22 11:09 Labs: Abnormal Lab Results - Last 24 Hours (Table) 11/14/22 11/15/22 11/15/22 Range/Units 11:09 07:46 07:46 RBC 3.36 L (3.80-5.40) m/uL Hgb 8.4 L (11.4-16.0) gm/dL Hct 29.4 L (34.0-46.0) % MCH 24.9 L (25.0-35.0) pg MCHC 28.4 L (31.0-37.0) g/dL RDW 17.7 H (11.5-15.5) % APTT 77.4 H (22.0-30.0) sec Iron 18 L (50-170) UG/DL % Saturation 4.19 L (12.00-45.00) Assessment and Plan Assessment: Acute pulmonary embolism, CTA on arrival showed a filling defect within the left upper lung segmental pulmonary artery vasculature. No CT evidence of right heart strain. Atrial fibrillation, with controlled ventricular rate. Not on any anticoagulation, possibly related to history of GI bleeding. She is reportedly ALLERGIC to both Xarelto and Eliquis. She is status post watchman procedure recently performed on November 01, 2022. Acute kidney injury, unclear etiology. Anemia of chronic disease. History of CVA/TIA. History of coronary artery disease. History of heart failure with preserved ejection fraction. Benign essential hypertension. History of pacemaker implementation. Fibromyalgia. COPD, stable. Hypothyroidism. History of esophageal strictures, status post dilation. History of left-sided femur fracture. Plan: Plan dated 11/15/2022. The patient's currently on room air. She's not receiving any supplemental fluids. The patient was started on Lovenox, by hematology. Bilateral lower extremity Doppler, was negative for deep vein thrombosis. Clinically, she's doing well. She has been taught how to give herself the Lovenox injections. We will continue to follow the patient, and make recommendations along the way. Prognosis is guarded. Time with Patient: Less than 30
--- NOTE | 2022-11-15 13:15 | P.PN ---
Subjective Progress Note Date: 11/15/22 Principal diagnosis: Provoked pulmonary embolism, allergy to DOAC anticoagulation In follow-up today patient states she started the Lovenox injection, she was educated on how to administer, she found that it was relatively simple, no signs or symptoms of a reaction after administration. She denies any other acute complaints, no fevers, chest discomfort with deep inspiration is resolved. She denies any bleeding. Objective - Vital Signs Vital signs: Vital Signs Temp 97.8 F 11/15/22 07:56 Pulse 77 11/15/22 07:56 Resp 16 11/15/22 07:56 BP 126/71 11/15/22 07:56 Pulse Ox 97 11/15/22 07:56 FiO2 Intake & Output 11/14/22 11/15/22 11/15/22 18:59 06:59 18:59 Intake Total 902 305.545 Output Total 400 Balance 902 -400 305.545 Weight 43.091 kg Intake: Intake, IV Titration 194.545 Amount Heparin Sod,Pork in 0.45% 194.545 NaCl 25,000 unit In 0.45 % NaCl 1 250ml.bag @ 18 UNITS/KG/HR 7.756 mls/hr IV .Q24H [facility] Rx#: [id number] Oral 902 111 Output: Urine 400 Other: # Voids 1 - Constitutional General appearance: Present: average body habitus, cooperative, no acute distress - EENT Eyes: Present: anicteric sclerae, EOMI ENT: Present: hearing grossly normal - Respiratory Details: Respirations even and unlabored at rest - Cardiovascular Details: Skin warm and dry to the touch - Neurologic Neurologic: Present: CNII-XII intact - Musculoskeletal Musculoskeletal: Present: strength equal bilaterally - Psychiatric Psychiatric: Present: A&O x's 3, appropriate affect, intact judgment & insight - Allied health notes Allied health notes reviewed: case management - Labs CBC & Chem 7: 11/15/22 07:46 11/14/22 11:09 Labs: Abnormal Lab Results - Last 24 Hours (Table) 11/14/22 11/15/22 11/15/22 Range/Units 11:09 07:46 07:46 RBC 3.36 L (3.80-5.40) m/uL Hgb 8.4 L (11.4-16.0) gm/dL Hct 29.4 L (34.0-46.0) % MCH 24.9 L (25.0-35.0) pg MCHC 28.4 L (31.0-37.0) g/dL RDW 17.7 H (11.5-15.5) % APTT 77.4 H (22.0-30.0) sec Iron 18 L (50-170) UG/DL % Saturation 4.19 L (12.00-45.00) Assessment and Plan (1) Pulmonary embolism Current Visit: Yes Status: Acute Priority: High Code(s): I26.99 - OTHER PULMONARY EMBOLISM WITHOUT ACUTE COR PULMONALE SNOMED Code(s): 00817709 (2) Anemia Current Visit: No Status: Chronic Priority: Medium Code(s): D64.9 - ANEMIA, UNSPECIFIED SNOMED Code(s): 966604765 Plan: Provoked pulmonary embolism -Patient had watchman's procedure 11/01. She reports decreased mobility secondary to a femur fracture last fall. -Documented allergies to eliquis and xarelto. -Recommendation is for 3 months of full dose anticoagulation for provoked PE. Lovenox injections felt to be the most appropriate treatment for patient. Patient agreed with the same. She received her first dose this morning, educated on subcutaneous injections. Patient reports she feels confident that she can administer these injections. -Sent prescription for co-pay verification. Consulted Case Management for copay verification. No documentation about cost. Hopefully pt is able to afford Anemia -Labs reviewed. Iron saturation is low. Iron ordered. -Follow-up with Hematology scheduled, appointment in the discharge plan
--- NOTE | 2022-11-15 14:45 | P.DS ---
Providers Date of admission: 11/13/22 17:54 Expected date of discharge: 11/15/22 Attending physician: Jona Moran MD Consults: 11/13/22 18:37 Consult Physician Routine Consulting Provider: Shaheen Lofton Consult Reason/Comments: PE Do you want consulting provider notified?: Yes 11/14/22 05:25 Consult Physician Routine Consulting Provider: Toshia Beyer Consult Reason/Comments: left UE weakness Do you want consulting provider notified?: Yes, Notify in am 11/14/22 08:00 Consult Physician Routine Consulting Provider: Gian Cherry Consult Reason/Comments: PE, AFib s/p watchman, allergy to DOACs, pradaxa? Do you want consulting provider notified?: Yes Primary care physician: Bunny Mendes MD Hospital Course: Assessment: Acute subsegmental ulnar embolism, provoked Chronic kidney disease, stage III Chronic Anemia, contributed to by iron deficiency as well as chronic disease Left upper extremity weakness Hypertension Permanent atrial fibrillation Hypothyroidism CAD COPD without exacerbation Hospital course: 76-year-old woman with medical history of hypertension, COPD, CAD, permanent atrial fibrillation status post watchman procedure 2 weeks ago, presented for pleuritic chest pain. In the emergency room, patient was afebrile, 121/81, heart rate 106, 100% on room air. CBC demonstrated anemia down to 9.1, otherwise unremarkable, anemias at baseline from 2 months ago. Basic metabolic panel shows sodium 133, BUN of 79, creatinine 1.22; creatinine is at baseline. Liver function test shows elevation of AST to 59, otherwise unremarkable. Troponin was less than 0.012, trended to less than 0.012. BNP was 1830. Coags are unremarkable. D-dimer was 0.96. UA is unremarkable. Influenza A, B, RSV, Covid are negative. CT angiography of the chest shows prolonged filling defects compatible with pulmonary embolism with no evidence of right heart strain, filling defect is in the left upper segmental pulmonary arterial vasculature. EKG shows atrial fibrillation with a rate of 106, right axis deviation. Venous Doppler did not show evidence of DVT. Case was discussed with the emergency room provider decision was made to admit the patient to the hospital for further evaluation. Patient was started on heparin for pulmonary embolism, pulmonology was consulted. Echocardiogram was negative for right heart strain, showed appropriate ejection fraction later Patient was seen by hematology given multiple ALLERGIES to previous factor X A inhibitors, they recommended Lovenox on discharge. Patient was cleared for discharge from pulmonology and hematology, as well as neurology with recommendations to follow-up with neurology. Patient's case was discussed with patient's primary care physician on discharge and care was transitioned verbally. I spent 45 minutes coordinating this discharge on 11/15 Gen: awake, alert HEENT: normocephalic, atraumatic, good hearing acuity, moist mucous membranes Resp: good air exchange, breathing comfortably with no accessory muscle use CVS: good distal perfusion x 4, GI: soft, NTTP, ND : no SPT, no CVAT, alvarado catheter not present MSK: no pitting edema, no clubbing, hives with noted areas of bursa blisters Neuro: non-focal, moving all extremities Psych: cooperative, euthymic mood Patient Condition at Discharge: Good Plan - Discharge Summary Discharge Rx Participant: No New Discharge Prescriptions: New dilTIAZem HCL [dilTIAZem HCL 24Hr ER (CD)] 180 mg PO DAILY #30 cap Folic Acid 1 mg PO DAILY #30 tab Enoxaparin [Lovenox] 60 mg SQ Q12H #90 each Continue SUMAtriptan succinate [Imitrex] 50 mg PO TID PRN PRN Reason: Migraine Headache L.acidoph,Paracasei, B.lactis [Probiotic] 1 cap PO DAILY Metoprolol Tartrate [Lopressor] 50 mg PO DAILY Amiodarone [Cordarone] 200 mg PO DAILY Ondansetron [Zofran] 4 mg PO TID PRN PRN Reason: Nausea And Vomiting Triamcinolone 0.5% Cream [Kenalog 0.5% Cream] 1 applic TOPICAL DAILY Acetaminophen [Tylenol Extra Strength] 1,000 mg PO QID PRN PRN Reason: Fever And/ Or Pain Sennosides [Senokot] 8.6 mg PO BID Mupirocin 2% Oint [Bactroban 2% Oint] 1 applic TOPICAL BID Buprenorphine [Butrans 10 MCG/HOUR] 1 patch TRANSDERM TH Doxepin HCl 6 mg PO HS Melatonin [Melatonin ER] 10 mg PO HS PRN PRN Reason: Insomnia Spironolactone [Aldactone] 25 mg PO DAILY Pantoprazole [Protonix] 40 mg PO BID Potassium Chloride ER [K-Dur 10] 40 meq PO BID hydrOXYzine pamoate [Vistaril] 25 mg PO Q6H PRN PRN Reason: Anxiety Acetaminophen [Tylenol] 325 mg PO Q4H PRN PRN Reason: Pain Aspirin EC [Ecotrin Low Dose] 81 mg PO DAILY Clopidogrel [Plavix] 75 mg PO DAILY Dicyclomine [Bentyl] 10 mg PO TID Levothyroxine Sodium [Synthroid] 100 mcg PO DAILY HYDROcodone/APAP 5-325MG [[place] 5-325] 1 tab PO Q4H PRN PRN Reason: Breakthrough Pain Changed Furosemide [Lasix] 40 mg PO DAILY #0 Discontinued Furosemide [Lasix] 40 mg PO BID PRN PRN Reason: Increased Edema dilTIAZem HCL 60 mg PO TID Doxycycline Hyclate 100 mg PO DAILY Discharge Medication List SUMAtriptan succinate [Imitrex] 50 mg PO TID PRN 02/15/16 [History] L.acidoph,Paracasei, B.lactis [Probiotic] 1 cap PO DAILY 02/06/20 [History] Metoprolol Tartrate [Lopressor] 50 mg PO DAILY 10/05/20 [History] Spironolactone [Aldactone] 25 mg PO DAILY 08/04/21 [History] Pantoprazole [Protonix] 40 mg PO BID 12/27/21 [History] Amiodarone [Cordarone] 200 mg PO DAILY 02/03/22 [History] Potassium Chloride ER [K-Dur 10] 40 meq PO BID 02/03/22 [History] Acetaminophen [Tylenol Extra Strength] 1,000 mg PO QID PRN 09/20/22 [History] Buprenorphine [Butrans 10 MCG/HOUR] 1 patch TRANSDERM TH 09/20/22 [History] Mupirocin 2% Oint [Bactroban 2% Oint] 1 applic TOPICAL BID 09/20/22 [History] Ondansetron [Zofran] 4 mg PO TID PRN 09/20/22 [History] Sennosides [Senokot] 8.6 mg PO BID 09/20/22 [History] Triamcinolone 0.5% Cream [Kenalog 0.5% Cream] 1 applic TOPICAL DAILY 09/20/22 [History] hydrOXYzine pamoate [Vistaril] 25 mg PO Q6H PRN 09/20/22 [History] Acetaminophen [Tylenol] 325 mg PO Q4H PRN 11/13/22 [History] Aspirin EC [Ecotrin Low Dose] 81 mg PO DAILY 11/13/22 [History] Clopidogrel [Plavix] 75 mg PO DAILY 11/13/22 [History] Dicyclomine [Bentyl] 10 mg PO TID 11/13/22 [History] Doxepin HCl 6 mg PO HS 11/13/22 [History] HYDROcodone/APAP 5-325MG [[place] 5-325] 1 tab PO Q4H PRN 11/13/22 [History] Levothyroxine Sodium [Synthroid] 100 mcg PO DAILY 11/13/22 [History] Melatonin [Melatonin ER] 10 mg PO HS PRN 11/13/22 [History] Enoxaparin [Lovenox] 60 mg SQ Q12H #90 each 11/14/22 [Rx] Folic Acid 1 mg PO DAILY #30 tab 11/15/22 [Rx] Furosemide [Lasix] 40 mg PO DAILY #0 11/15/22 [Rx] dilTIAZem HCL [dilTIAZem HCL 24Hr ER (CD)] 180 mg PO DAILY #30 cap 11/15/22 [Rx] Follow up Appointment(s)/Referral(s): Reginaldo Kellogg MD [STAFF PHYSICIAN] - 12/28/22 10:30 am Bunny Mendes MD [Primary Care Provider] - 1-2 days (please call to schedule follow up with [facility]. ) Patient Instructions/Handouts: Pulmonary Embolism (DC) Discharge Disposition: HOME SELF-CARE
[2022-11-16] MEDS ORDERED: NON FORMULARY DRUG (Buprenorphine [Butrans 10 Mcg/Hour] 10 MCG/HOUR Patch) TRANSDERM SCH (09:00)
== END 2022-11-15 13:23 | disposition home or self-care (01) | DRG 176 ==
LOC: EC 14:34 → 3SCARD 17:54
PROVIDERS: ADMIT Family Medicine; ATTEND Family Medicine
DX: I26.99 Other pulmonary embolism without acute cor pulmonale (principal); I74.2 Embolism and thrombosis of arteries of the upper extremities; N17.9 Acute kidney failure, unspecified; I13.0 Hypertensive heart and chronic kidney disease with heart failure and stage 1 through stage 4 chronic kidney disease, or unspecified chronic kidney disease; I48.21 Permanent atrial fibrillation; I50.32 Chronic diastolic (congestive) heart failure; I49.5 Sick sinus syndrome; N18.30 Chronic kidney disease, stage 3 unspecified; J44.9 Chronic obstructive pulmonary disease, unspecified; D63.8 Anemia in other chronic diseases classified elsewhere; E03.9 Hypothyroidism, unspecified; D50.9 Iron deficiency anemia, unspecified; I25.10 Atherosclerotic heart disease of native coronary artery without angina pectoris; M79.7 Fibromyalgia; M25.512 Pain in left shoulder; M25.511 Pain in right shoulder; G89.29 Other chronic pain; M81.0 Age-related osteoporosis without current pathological fracture; M19.90 Unspecified osteoarthritis, unspecified site; M47.812 Spondylosis without myelopathy or radiculopathy, cervical region; M48.02 Spinal stenosis, cervical region; M43.6 Torticollis; Z74.09 Other reduced mobility; Z20.822 Contact with and (suspected) exposure to COVID-19; S72.102 Unspecified trochanteric fracture of left femur; Z88.8 Allergy status to other drugs, medicaments and biological substances; Z95.0 Presence of cardiac pacemaker; Z79.02 Long term (current) use of antithrombotics/antiplatelets; Z79.82 Long term (current) use of aspirin; Z79.899 Other long term (current) drug therapy; Z79.890 Hormone replacement therapy; Z91.048 Other nonmedicinal substance allergy status; Z88.1 Allergy status to other antibiotic agents; I25.2 Old myocardial infarction; Z87.11 Personal history of peptic ulcer disease; Z87.19 Personal history of other diseases of the digestive system; Z80.8 Family history of malignant neoplasm of other organs or systems; Z86.73 Personal history of transient ischemic attack (TIA), and cerebral infarction without residual deficits
CPT/HCPCS: 36415; 70450; 71046; 71275; 80048; 80053; 81003; 82607; 82728; 82746; 83540; 83550; 83735; 83880; 83921; 84484; 85025; 85027; 85379; 85610; 85730; 87636; 93005; 93306; 93970; 96365; 96375; 96376; 99285

== ENCOUNTER → 2022-12-11 | Outpatient (CLI) | payer OTHER ==
--- NOTE | 2022-12-11 16:11 | CT ---
EXAMINATION TYPE: CT brain wo con DATE OF EXAM: 12/11/2022 COMPARISON: 11/14/2022 HISTORY: 77-year-old female S09.90XA UNSPECIFIED INJURY OF HEAD, head injury TECHNIQUE: Examination was done in axial plane without intravenous contrast. Coronal and sagittal r econstructions performed. CT DLP: 1156 mGycm Automated exposure control for dose reduction was used. FINDINGS: There is no evidence of acute intracranial hemorrhage, acute ischemic changes, mass, mass-effect, or extra-axial fluid collection. There is no effacement of cerebral sulci or basal subarachnoid cister ns. There is no hydrocephalus. There is no midline shift. Blanchard-white matter distinction is preserv ed. Moderate patchy white matter hypodensities in both cerebral hemispheres redemonstrated. Moderate mucosal thickening ethmoid air cells and mild within the maxillary sinuses. IMPRESSION: Similar moderate burden of chronic small vessel ischemic disease. No acute intracranial abnormality s een. Moderate chronic ethmoid sinus disease.
== END | disposition home or self-care (01) ==
LOC: RADCTMAIN 15:26
PROVIDERS: ATTEND Emergency Medicine
DX: I67.82 Cerebral ischemia (principal); J32.2 Chronic ethmoidal sinusitis; S09.90XA Unspecified injury of head, initial encounter; X58.XXXA Exposure to other specified factors, initial encounter
CPT/HCPCS: 70450

== ENCOUNTER → 2022-12-18 | Outpatient (CLI) | payer OTHER | END | disposition home or self-care (01) | LOC: RADCTMAIN 13:51 | PROVIDERS: ATTEND Emergency Medicine | DX: Z53.9 Procedure and treatment not carried out, unspecified reason (principal) ==

== ENCOUNTER 2022-12-26 23:40 | Inpatient (IN) | payer MEDICARE, OTHER ==
--- NOTE | 2022-12-27 00:19 | ED ---
Fall HPI - General Chief Complaint: Fall Stated Complaint: Fall Time Seen by Provider: 12/26/22 23:41 Source: EMS, RN notes reviewed, old records reviewed Mode of arrival: EMS Limitations: no limitations - History of Present Illness Initial Comments: This is a 77-year-old female to the emergency department today for evaluation. Patient of fall from standing but denies hitting her head as she is on blood thinners. Patient is complaining of severe right hip pain back pain with history of Left hip fracture and surgery. Patient also was lightheadedness and dizziness and heart palpitations. Patient states she was trying to turn after going of the third and fell and has severe left hip pain. 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 IN HOME Fall Witnessed: no Place Fall Occurred: home Loss of Consciousness: none Prolonged Down Time?: no Symptoms Prior to Fall: none Location: pelvis, buttocks Location - Extremities: Left: Thigh Severity: severe Severity scale (1-10): 9 Quality: stabbing, crushing Context: tripped/slipped Associated Symptoms: denies - Related Data Home Medications Medication Instructions Recorded Confirmed L.acidoph,Paracasei, B.lactis 1 cap PO DAILY 02/06/20 12/27/22 [Probiotic] Metoprolol Tartrate [Lopressor] 50 mg PO DAILY 10/05/20 12/27/22 Spironolactone [Aldactone] 25 mg PO DAILY 08/04/21 12/27/22 Pantoprazole [Protonix] 40 mg PO BID 12/27/21 12/27/22 Amiodarone [Cordarone] 200 mg PO DAILY 02/03/22 12/27/22 Potassium Chloride ER [K-Dur 10] 40 meq PO BID 02/03/22 12/27/22 Acetaminophen [Tylenol Extra 1,000 mg PO QID PRN 09/20/22 12/27/22 Strength] Mupirocin 2% Oint [Bactroban 2% 1 applic TOPICAL BID 09/20/22 12/27/22 Oint] Ondansetron [Zofran] 4 mg PO TID PRN 09/20/22 12/27/22 Sennosides [Senokot] 8.6 mg PO DAILY 09/20/22 12/27/22 Triamcinolone 0.5% Cream [Kenalog 1 applic TOPICAL DAILY 09/20/22 12/27/22 0.5% Cream] hydrOXYzine pamoate [Vistaril] 25 mg PO Q6H PRN 09/20/22 12/27/22 Aspirin EC [Ecotrin Low Dose] 81 mg PO DAILY 11/13/22 12/27/22 Doxepin HCl 6 mg PO HS 11/13/22 12/27/22 Levothyroxine Sodium [Synthroid] 100 mcg PO DAILY 11/13/22 12/27/22 Furosemide [Lasix] 40 mg PO BID@0700,1600 12/27/22 12/27/22 Previous Rx's Medication Instructions Recorded Folic Acid 1 mg PO DAILY #30 tab 11/15/22 dilTIAZem HCL [dilTIAZem HCL 24Hr 180 mg PO DAILY #30 cap 11/15/22 ER (CD)] HYDROcodone/APAP 7.5-325MG [[place] 1 - 2 tab PO Q6HR PRN #32 tab 12/29/22 7.5-325] Enoxaparin [Lovenox] 60 mg SQ DAILY each 12/30/22 Magnesium Hydroxide [Milk of 2,400 mg PO DAILY PRN ml 12/30/22 Magnesia] Sennosides-Docusate Sodium 2 each PO HS tab 12/30/22 [Senokot-S] Allergies Allergy/AdvReac Type Severity Reaction Status Date / Time adhesive Allergy RASH FROM Verified 12/27/22 06:56 EKG STICKERS apixaban [From Eliquis] Allergy Rash/Hives Verified 12/27/22 06:56 celecoxib [From Celebrex] Allergy Rash/Hives Verified 12/27/22 06:56 sertraline HCl [From Zoloft] Allergy Rash/Hives Verified 12/27/22 06:56 sulfamethoxazole Allergy Anaphylaxis Verified 12/27/22 06:56 [From Bactrim] trimethoprim [From Bactrim] Allergy Anaphylaxis Verified 12/27/22 06:56 cholestyramine AdvReac DIZZY/CONFU Verified 12/27/22 06:56 SED Review of Systems ROS Statement: Those systems with pertinent positive or pertinent negative responses have been documented in the HPI. ROS Other: All systems not noted in ROS Statement are negative. Past Medical History Past Medical History: Atrial Fibrillation, Blood Disorder, Coronary Artery Disease (CAD), Chest Pain / Angina, Heart Failure, COPD, CVA/TIA, Fibromyalgia, GERD/Reflux, GI Bleed, Hypertension, Myocardial Infarction (MN), Musculoskeletal Disorder, Osteoarthritis (OA), Thyroid Disorder Additional Past Medical History / Comment(s): Pacemaker for Syncope/Tachybrady Syndrome. Hx RHEUMATIC FEVER. Heart murmur, chronic back and bilateral shoulder pain. SEVERE OSTEOPROSIS, Vertigo, Degenerative Joint Disease, GI ulcers, esophagitis/esophageal stricture, partially blocked bile duct, PROBLEMS WITH SWALLOWING, "no symptoms of COPD." FALLS "Cannot lie down for long without having back pain.". Left hip open reduction internal fixation of some trochanteric comminuted femur fracture in November 2021 Last Myocardial Infarction Date:: 2002 History of Any Multi-Drug Resistant Organisms: None Reported Past Surgical History: Appendectomy, Cardiac Ablation, Cholecystectomy, Ear Surgery, Heart Catheterization, Hysterectomy, Orthopedic Surgery, Pacemaker, Tonsillectomy Additional Past Surgical History / Comment(s): ORIF LEFT LOWER ARM, HAS HARDWARE, numerous DILATATION OF ESOPHAGUS, biopsies were negative, colonoscopy, Pacemaker (ADAPTA) placed 07/07 at [facility], bilateral stapedectomies(stainless steel in both ears), Hiatal Hernia repair, inguinal and femoral hernia repairs, "cement placed in back, due to broken back/pelvis". Left Femur Surgery 12/09/21 Past Anesthesia/Blood Transfusion Reactions: Family History of Problems w/ Anes thesia, Motion Sickness, Postoperative Nausea & Vomiting (PONV) Additional Past Anesthesia/Blood Transfusion Reaction / Comment(s): No problems with prior blood transfusion. BROTHER HAS PONV. Type of Cardiac Device: Permanent Pacemaker Device Placement Date:: 06/2016 Past Psychological History: No Psychological Hx Reported Smoking Status: Never smoker Past Alcohol Use History: None Reported Past Drug Use History: None Reported - Past Family History Brother(s) Family Medical History: Cancer Additional Family Medical History / Comment(s): Throat cancer. Father Family Medical History: Pneumonia Additional Family Medical History / Comment(s): EMPHYSEMA. Mother Family Medical History: COPD, Rheumatoid Arthritis (RA) Additional Family Medical History / Comment(s): EMPHYSEMA. General Exam General appearance: alert, in no apparent distress Head exam: Present: atraumatic, normocephalic, normal inspection Eye exam: Present: normal appearance, PERRL, EOMI. Absent: scleral icterus, conjunctival injection, periorbital swelling ENT exam: Present: normal exam, mucous membranes moist Neck exam: Present: normal inspection. Absent: tenderness, meningismus, lymphadenopathy Respiratory exam: Present: normal lung sounds bilaterally. Absent: respiratory distress, wheezes, rales, rhonchi, stridor Cardiovascular Exam: Present: tachycardia, normal heart sounds. Absent: systolic murmur, diastolic murmur, rubs, gallop, clicks GI/Abdominal exam: Present: soft, normal bowel sounds. Absent: distended, tenderness, guarding, rebound, rigid Extremities exam: Present: normal inspection, full ROM, normal capillary refill. Absent: tenderness, pedal edema, joint swelling, calf tenderness Back exam: Present: normal inspection Neurological exam: Present: alert, oriented X3, CN II-XII intact Psychiatric exam: Present: normal affect, normal mood Skin exam: Present: warm, dry, intact, normal color. Absent: rash Course Vital Signs 12/26/22 12/27/22 12/27/22 23:41 01:06 02:41 Temperature 98.1 F Pulse Rate 102 H 92 97 Respiratory 20 20 20 Rate Blood Pressure 101/74 106/54 106/54 O2 Sat by Pulse 95 99 95 Oximetry 12/27/22 12/27/22 12/27/22 03:16 03:48 05:08 Temperature Pulse Rate 92 92 98 Respiratory 17 13 17 Rate Blood Pressure 86/54 100/61 99/53 O2 Sat by Pulse 93 L 97 95 Oximetry 12/27/22 12/27/22 06:05 06:54 Temperature 97.9 F Pulse Rate 105 H 95 Respiratory 23 14 Rate Blood Pressure 112/59 110/55 O2 Sat by Pulse 95 94 L Oximetry - Reevaluation(s) Reevaluation #1: 12/27/22 00:18 Medical record is reviewed Reevaluation #2: 12/27/22 01:59 This pain is improving Reevaluation #3: 12/27/22 01:59 Patient informed results and questions answered Reevaluation #4: 12/27/22 00:18 Was pt. sent in by a medical professional or institution (, PA, RECEIVING SPECIALIST, urgent care, hospital, or penitentiary...) When possible be specific @ -no Did you speak to anyone other than the patient for history (EMS, parent, family, police, friend...)? What history was obtained from this source @ -no Did you review nursing and triage notes (agree or disagree)? Why? @ -agree Are old charts reviewed (outside hosp., previous admission, EMS record, old EKG, old radiological studies, urgent care reports/EKG's, penitentiary records)? Report findings @ -yes Differential Diagnosis (chest pain, altered mental status, abdominal pain women, abdominal pain men, vaginal bleeding, weakness, fever, dyspnea, syncope, headache, dizziness, GI bleed, back pain, seizure, CVA, palpatations, mental health, musculoskeletal)? @ -prior EKG interpreted by me (3pts min.). @ -yes X-rays interpreted by me (1pt min.). @ -yes CT interpreted by me (1pt min.). @ -no U/S interpreted by me (1pt. min.). @ -no What testing was considered but not performed or refused? (CT, X-rays, U/S, labs)? Why? @ -none What meds were considered but not given or refused? Why? @ -none Did you discuss the management of the patient with other professionals (professionals i.e. , PA, RECEIVING SPECIALIST, lab, RT, psych nurse, social media job titles, technical implementation lead, teacher, budget officer, watch caser)? Give summary @ -no Was smoking cessation discussed for >3mins.? @ -no Was critical care preformed (if so, how long)? @ -no Were there social determinants of health that impacted care today? How? (Homelessness, low income, unemployed, alcoholism, drug addiction, transportation, low edu. Level, literacy, decrease access to med. care, retirement, rehab)? @ -none Was there de-escalation of care discussed even if they declined (Discuss DNR or withdrawal of care, Hospice)? DNR status @ -no What co-morbidities impacted this encounter? (DM, HTN, Smoking, COPD, CAD, Cancer, CVA, ARF, Chemo, Hep., AIDS, mental health diagnosis, sleep apnea, morbid obesity)? @ -none Was patient admitted / discharged? Hospital course, mention meds given and route, prescriptions, significant lab abnormalities, going to OR and other pertinent info. @ - 77 female to the emergency department for evaluation. Patient presents tod ay for evaluation of fall fall with hip fracture and will admit orthopedics Admitted Undiagnosed new problem with uncertain prognosis? @ -no Drug Therapy requiring intensive monitoring for toxicity (Heparin, Nitro, Insulin, Cardizem)? @ -no Were any procedures done? @ -no Diagnosis/symptom? @ -Fall with hip fracture Acute, or Chronic, or Acute on Chronic? @ -Acute Uncomplicated (without systemic symptoms) or Complicated (systemic symptoms)? @ -Complicated Side effects of treatment? @ -no Exacerbation, Progression, or Severe Exacerbation? @ -exacerbation Poses a threat to life or bodily function? How? (Chest pain, USA, MN, pneumonia, PE, COPD, DKA, ARF, appy, cholecystitis, CVA, Diverticulitis, Homicidal, Suicidal, threat to staff... and all critical care pts) @ -yes Reevaluation #5: 12/27/22 01:59 Differential Palpitations Ventricular arrhythmias, atrial arrhythmias, myocardial infarction, anemia, thyrotoxicosis, electrolyte imbalance, hypokalemia, pulmonary embolism, pulmonary disease, drugs, alcohol, anxiety, stress.... This is not meant to be an all-inclusive list. - Consultations Consultation #1: [facility] regarding [facility] there agreeable Medical Decision Making - Medical Decision Making 77 female to the emergency department for evaluation. Patient presents today for evaluation of fall fall with hip fracture and will admit orthopedics - Lab Data Result diagrams: 01/01/23 06:40 01/01/23 06:40 Lab Results 12/27/22 12/27/22 12/27/22 Range/Units 01:18 01:18 01:18 WBC 7.1 (3.8-10.6) k/uL RBC 4.29 (3.80-5.40) m/uL Hgb 10.2 L (11.4-16.0) gm/dL Hct 34.2 (34.0-46.0) % MCV 79.8 L D (80.0-100.0) fL MCH 23.9 L (25.0-35.0) pg MCHC 30.0 L (31.0-37.0) g/dL RDW 18.0 H (11.5-15.5) % Plt Count 343 (150-450) k/uL MPV 9.2 Neutrophils % 63 % Lymphocytes % 22 % Monocytes % 8 % Eosinophils % 4 % Basophils % 1 % Neutrophils # 4.5 (1.3-7.7) k/uL Lymphocytes # 1.5 (1.0-4.8) k/uL Monocytes # 0.6 (0-1.0) k/uL Eosinophils # 0.3 (0-0.7) k/uL Basophils # 0.0 (0-0.2) k/uL Hypochromasia Marked Anisocytosis Slight Microcytosis Slight Sodium 134 L (137-145) mmol/L Potassium 4.3 (3.5-5.1) mmol/L Chloride 96 L (98-107) mmol/L Carbon Dioxide 23 (22-30) mmol/L Anion Gap 15 mmol/L BUN 44 H (7-17) mg/dL Creatinine 1.21 H (0.52-1.04) mg/dL Est GFR (CKD-EPI)AfAm 51 (>60 ml/min/1.73 sqM) Est GFR (CKD-EPI)NonAf 44 (>60 ml/min/1.73 sqM) Glucose 102 H (74-99) mg/dL Calcium 9.4 (8.4-10.2) mg/dL Phosphorus 4.5 (2.5-4.5) mg/dL Magnesium 2.2 (1.6-2.3) mg/dL Total Bilirubin 0.4 (0.2-1.3) mg/dL AST 59 H (14-36) U/L ALT 30 (4-34) U/L Alkaline Phosphatase 126 (38-126) U/L Troponin I <0.012 (0.000-0.034) ng/mL Total Protein 8.4 H (6.3-8.2) g/dL Albumin 4.7 (3.5-5.0) g/dL - EKG Data -: EKG Interpreted by Me (EKG is A. fib with RVR 150 QRS 85 QTC 403) - Radiology Data Radiology results: report reviewed (chest and pelvis and pelvis x-ray positive for left hip fracture), image reviewed Disposition Clinical Impression: Status post fall, Fall, Weakness, Atrial fibrillation with RVR, Left hip pain, History of fracture of left hip, Closed right hip fracture Disposition: ADMITTED IP TO THIS [facility] Condition: Serious Is patient prescribed a controlled substance at d/c from ED?: No Time of Disposition: 02:00
[2022-12-27] MEDS ORDERED: ONDANSETRON 4 MG/2 ML VIAL IVP STA (00:32)
[2022-12-27] MEDS ORDERED: SODIUM CHLORIDE 0.9% 1,000 ML IV STA (00:32)
[2022-12-27] MEDS ORDERED: MORPHINE SULFATE 4 MG/ML SYRINGE IV STA (00:32)
[2022-12-27] MEDS ORDERED: METOPROLOL TARTRATE 5 MG/5 ML VIAL IVP STA (00:47)
[2022-12-27 01:34] LABS: Anisocytosis Slight; Basophils % (A) 1 %; Eosinophils # (A) 0.3 k/uL (0-0.7); Eosinophils % (A) 4 %; HCT 34.2 % (34.0-46.0); HGB 10.2 gm/dL (11.4-16.0); Hypochromasia Marked; Lymphocytes # (A) 1.5 k/uL (1.0-4.8); Lymphocytes % (A) 22 %; MCH 23.9 pg (25.0-35.0); Mean Platelet Volume 9.2; Microcytosis Slight; Monocytes # (A) 0.6 k/uL (0-1.0); Monocytes % (A) 8 %; Neutrophils # (A) 4.5 k/uL (1.3-7.7); Neutrophils % (A) 63 %; Platelet Count 343 k/uL (150-450); RBC 4.29 m/uL (3.80-5.40); WBC 7.1 k/uL (3.8-10.6)
[2022-12-27 01:36] LABS: MCV 79.8 fL (80.0-100.0)
[2022-12-27 01:40] LABS: ALT 30 U/L (4-34); African American GFR (CKD) 51 (>60 ml/min/1.73 sqM); Albumin 4.7 g/dL (3.5-5.0); Anion Gap 15 mmol/L; Blood Urea Nitrogen 44 mg/dL (7-17); Calcium 9.4 mg/dL (8.4-10.2); Carbon Dioxide 23 mmol/L (22-30); Chloride 96 mmol/L (98-107); Glucose 102 mg/dL (74-99); Non-African American GFR(CKD) 44 (>60 ml/min/1.73 sqM); Sodium 134 mmol/L (137-145); Total Bilirubin 0.4 mg/dL (0.2-1.3); Total Protein 8.4 g/dL (6.3-8.2)
[2022-12-27] MEDS ORDERED: NALOXONE 0.4 MG/ML 1 ML VIAL IV PRN ×2 (01:57→18:15)
[2022-12-27] MEDS: SODIUM CHLORIDE 0.9% 1,000 ML IV SCH ×3 (02:33→22:10)
[2022-12-27] MEDS: HYDROmorphone 1 MG/ML 1 ML SYRINGE IVP PRN ×4 (02:35→15:56)
[2022-12-27 02:38] LABS: Potassium 4.3 mmol/L (3.5-5.1)
[2022-12-27 02:39] LABS: AST 59 U/L (14-36); Alkaline Phosphatase 126 U/L (38-126); Magnesium 2.2 mg/dL (1.6-2.3); Phosphorus 4.5 mg/dL (2.5-4.5)
--- NOTE | 2022-12-27 02:39 | XR ---
EXAM: XR Chest, 1 View CLINICAL HISTORY: ITS.REASON XR Reason: pain TECHNIQUE: Frontal view of the chest. COMPARISON: 11/13/2022 FINDINGS: Lungs: Exam severely limited secondary to patient positioning. Grossly no focal infiltrates or effusions are identified on this exam. Left chest wall dual lead intracardiac device. Pleural space: Unremarkable. No pneumothorax. Heart: Unremarkable. No cardiomegaly. Mediastinum: Unremarkable. Bones/joints: Unremarkable. IMPRESSION: Severely limited exam. Grossly no acute pulmonary pathology.
--- NOTE | 2022-12-27 02:43 | XR ---
EXAM: XR Pelvis, 1 or 2 Views CLINICAL HISTORY: ITS.REASON XR Reason: pain TECHNIQUE: Frontal view of the pelvis. COMPARISON: No relevant prior studies available. FINDINGS: Bones/joints: Comminuted minimally displaced intertrochanteric right hip fracture. Postoperative changes of ORIF left intertrochanteric hip fracture. No dislocation. Soft tissues: Unremarkable. IMPRESSION: Comminuted minimally displaced intertrochanteric right hip fracture
[2022-12-27 03:14] LABS: Partial Thromboplastin Time 22.5 sec (22.0-30.0); Prothrombin Time 10.3 sec (9.0-12.0)
--- NOTE | 2022-12-27 03:21 | XR ---
EXAM: XR Chest, 1 View CLINICAL HISTORY: ITS.REASON XR Reason: fall TECHNIQUE: Frontal view of the chest. COMPARISON: Earlier on the same date FINDINGS: Lungs: Patient's positioning has slightly improved. No lobar consolidations. No effusions. Pleural space: Unremarkable. No pneumothorax. Heart: Unremarkable. No cardiomegaly. Mediastinum: Unremarkable. Bones/joints: Diffuse changes COPD and stable left chest wall intracardiac device. IMPRESSION: No acute findings in the chest.
[2022-12-27] MEDS ORDERED: HYDROmorphone 1 MG/ML 1 ML SYRINGE IVP STA (08:11)
[2022-12-27] MEDS ORDERED: CYCLOBENZAPRINE 5 MG TAB PO STA (09:10)
--- NOTE | 2022-12-27 09:30 | P.CONS ---
History of Present Illness - Reason for Consult Consult date: 12/27/22 pre-op clearance Requesting physician: Ivory Lee - Chief Complaint right hip pain - History of Present Illness Patient is an 77-year-old female with complex medical history including atrial fibrillation, coronary artery disease, congestive heart failure, COPD, and multiple other comorbid conditions who presented to the ER after a fall from standing with complaints of severe right hip pain. In the ER she was found to have a minimally displaced right IT fracture. She was admitted to orthopedics and we were asked to consult for medical clearaance. Chest x-ray in the ER showed no acute process. Urinalysis was remarkable for hemoglobin 10.2, sodium 134, chloride 96, BUN 41, creatinine 1.21, and glucose of 102. Patient was recently here in October of 2022 with a pulmonary embolism where she was discharged home on Lovenox. Patient seen and examined at bedside. She was getting something out of the fridge when she tripped and fell yesterday. She denies any lightheadedness, dizziness, pain, or shortness of breath preceding the fall. She does have chiller hand yani shortness of breath and intermittent chest pain. She relates this to having a pulmonary embolism in October 2022 and then a watchman device placed. She does follow with Dr. Penn in the cardiology office. She's been on her typical state of health recently. She denies any recent unusual cough, cold, fever, flu. At home she is able to dress, Vasotec, and feet are resolved. She is able to do some light housework. She is able to walk on level ground up to 1-2 blocks however when she tries to walk up 3 flights of stairs she feels her heart racing. She typically uses a cane at home but not a walker. She also recently was increased from [place] to oxycodone by her primary care physician due to worsening pain. Watchman device November 01 with second appointment last week. Vital signs reviewed General: nontoxic, no distress, appears at stated age Derm: warm, dry Eyes: EOMI, no lid lag, anicteric sclera, pupils equal round reactive to light ENT: Nose and ears atraumatic, no thrush, no pharyngeal erythema Cardiovascular: S1S2 reg, no murmur, positive posterior tibial pulse bilateral, no edema, capillary refill less than 2 seconds Lungs: clear to auscultation bilateral, no rhonchi, no rales, no wheeze, no accessory muscle use Abdominal: soft,+tender to palpation patient states from shots, no guarding, no appreciable organomegaly, normal bowel sounds Ext: + gross muscle atrophy, no contractures Neuro: CN II-XII grossly intact, no focal neuro deficits Psych: Alert, oriented, appropriate affect Assessment/Plan: 77 yo F with Right IT hip fracutre Surgical risk stratification - Ayala activity score 3.97 mets - given recent watchman, decreased physical activity and recent Pulmonary embolism in October 2022 patient is at high risk for surgical procedure. Discussed with patient and dauther that she is at night risk for cardiac and pulmonary complications including . However given this acute fracture and quality of life surgical fixation is still her best option to preserve quality of life if ortho in agreement . There is no further testing needed and she is optimized medically for surgery at this time. Will consult cardio for further guidance in the perioperative period given recent watchman. Will also needs to be restarted on full dose lovenox as soon as appropriate per ortho given her recent pulmonary embolism. -Hold ASA and plavix Plavix prior to surgery. Resume as soon as okay with orthopedic surgery Recent pulmonary embolism -Resume Lovenox 60 mg subcutaneous daily as soon as cleared by orthopedic surgery Hypertension Permanent A. fib Hypothyroidism Coronary artery disease COPD Chronic kidney disease stage III with baseline cr 1.2 Recent acute subsegmental pulmonary embolism -Resume diltiazem 180 mg daily, Lopressor 50 mg daily, amiodarone 200 mg daily -Protonix 40 mg twice daily -Hold Lasix and Aldactone today can resume in AM. -Synthroid 100 g daily -Folic acid 1 mg daily -Doxepin 6 mg at night Imaging: As per HPI Data Review: As per HPI Thank you for allowing us to participate in the care of this pleasant patient. Do not hesitate to contact us with questions. Someone can be reached from the [facility] hospitalist group all hours of the day at [phone] or via [place]. This dictation was prepared using [employer] voice recognition software. Though every attempt is made to correct errors during dictation some may still exist. Past Medical History Past Medical History: Atrial Fibrillation, Blood Disorder, Coronary Artery Disease (CAD), Chest Pain / Angina, Heart Failure, COPD, Fibromyalgia, GERD/Reflux, GI Bleed, Hypertension, Myocardial Infarction (NH), Musculoskeletal Disorder, Osteoarthritis (OA), Thyroid Disorder Additional Past Medical History / Comment(s): Pacemaker for Syncope/Tachybrady Syndrome. Hx RHEUMATIC FEVER. Heart murmur, chronic back and bilateral shoulder pain. SEVERE OSTEOPROSIS, Vertigo, Degenerative Joint Disease, GI ulcers, esophagitis/esophageal stricture, partially blocked bile duct, PROBLEMS WITH SWALLOWING, "no symptoms of COPD." FALLS "Cannot lie down for long without having back pain.". Left hip open reduction internal fixation of some trochanteric comminuted femur fracture in November 2021 Last Myocardial Infarction Date:: 2002 History of Any Multi-Drug Resistant Organisms: None Reported Past Surgical History: Appendectomy, Cardiac Ablation, Cholecystectomy, Ear Surgery, Heart Catheterization, Hysterectomy, Orthopedic Surgery, Pacemaker, Tonsillectomy Additional Past Surgical History / Comment(s): ORIF LEFT LOWER ARM, HAS HARDWARE, numerous DILATATION OF ESOPHAGUS, biopsies were negative, colonoscopy, Pacemaker (ADAPTA) [facility] 07[facility]07 [facility], bilateral stapedectomies(stainless steel in both ears), Hiatal Hernia repair, inguinal and femoral hernia repairs, "cement placed in back, due to broken back/pelvis". Left Femur Surgery 12/09/21 Past Anesthesia/Blood Transfusion Reactions: Family History of Problems w/ Anes thesia, Motion Sickness, Postoperative Nausea & Vomiting (PONV) Additional Past Anesthesia/Blood Transfusion Reaction / Comm: No problems with prior blood transfusion. BROTHER HAS PONV. Type of Cardiac Device: Permanent Pacemaker Device Placement Date:: 06/2016 Past Psychological History: No Psychological Hx Reported Smoking Status: Never smoker Past Alcohol Use History: None Reported Past Drug Use History: None Reported - Past Family History Brother(s) Family Medical History: Cancer Additional Family Medical History / Comment(s): Throat cancer. Father Family Medical History: Pneumonia Additional Family Medical History / Comment(s): EMPHYSEMA. Mother Family Medical History: COPD, Rheumatoid Arthritis (RA) Additional Family Medical History / Comment(s): EMPHYSEMA. Medications and Allergies Home Medications Medication Instructions Recorded Confirmed Type L.acidoph,Paracasei, B.lactis 1 cap PO DAILY 02/06/20 12/27/22 History [Probiotic] Metoprolol Tartrate [Lopressor] 50 mg PO DAILY 10/05/20 12/27/22 History Spironolactone [Aldactone] 25 mg PO DAILY 08/04/21 12/27/22 History Pantoprazole [Protonix] 40 mg PO BID 12/27/21 12/27/22 History Amiodarone [Cordarone] 200 mg PO DAILY 02/03/22 12/27/22 History Potassium Chloride ER [K-Dur 10] 40 meq PO BID 02/03/22 12/27/22 History Acetaminophen [Tylenol Extra 1,000 mg PO QID PRN 09/20/22 12/27/22 History Strength] Mupirocin 2% Oint [Bactroban 2% 1 applic TOPICAL BID 09/20/22 12/27/22 History Oint] Ondansetron [Zofran] 4 mg PO TID PRN 09/20/22 12/27/22 History Sennosides [Senokot] 8.6 mg PO DAILY 09/20/22 12/27/22 History Triamcinolone 0.5% Cream [Kenalog 1 applic TOPICAL DAILY 09/20/22 12/27/22 History 0.5% Cream] hydrOXYzine pamoate [Vistaril] 25 mg PO Q6H PRN 09/20/22 12/27/22 History Aspirin EC [Ecotrin Low Dose] 81 mg PO DAILY 11/13/22 12/27/22 History Clopidogrel [Plavix] 75 mg PO DAILY 11/13/22 12/27/22 History Doxepin HCl 6 mg PO HS 11/13/22 12/27/22 History HYDROcodone/APAP 5-325MG [[place] 1 tab PO Q4H PRN 11/13/22 12/27/22 History 5-325] Levothyroxine Sodium [Synthroid] 100 mcg PO DAILY 11/13/22 12/27/22 History Folic Acid 1 mg PO DAILY #30 tab 11/15/22 12/27/22 Rx dilTIAZem HCL [dilTIAZem HCL 24Hr 180 mg PO DAILY #30 cap 11/15/22 12/27/22 Rx ER (CD)] Butalb/Acetaminophen/Caffeine 1 cap PO BID PRN 12/27/22 12/27/22 History [Fioricet 50-300-40 mg Capsule] Enoxaparin [Lovenox] 40 mg SQ DAILY 12/27/22 12/27/22 History Furosemide [Lasix] 40 mg PO BID@0700,1600 12/27/22 12/27/22 History oxyCODONE HCL [OxyCONTIN] 20 mg PO BID-W/MEALS 12/27/22 12/27/22 History Allergies Allergy/AdvReac Type Severity Reaction Status Date / Time adhesive Allergy RASH FROM Verified 12/27/22 06:56 EKG STICKERS apixaban [From Eliquis] Allergy Rash/Hives Verified 12/27/22 06:56 celecoxib [From Celebrex] Allergy Rash/Hives Verified 12/27/22 06:56 sertraline HCl [From Zoloft] Allergy Rash/Hives Verified 12/27/22 06:56 sulfamethoxazole Allergy Anaphylaxis Verified 12/27/22 06:56 [From Bactrim] trimethoprim [From Bactrim] Allergy Anaphylaxis Verified 12/27/22 06:56 cholestyramine AdvReac DIZZY/CONFU Verified 12/27/22 06:56 SED Physical Exam Osteopathic Statement: *. No significant issues noted on an osteopathic structural exam other than those noted in the History and Physical/Consult. Vitals: Vital Signs Temp Pulse Pulse Resp BP BP Pulse Ox 12/27/22 07:55 98.9 F 95 19 112/67 95 12/27/22 06:54 95 14 110/55 94 L 12/27/22 06:05 97.9 F 105 H 23 112/59 95 12/27/22 05:08 98 17 99/53 95 12/27/22 03:48 92 13 100/61 97 12/27/22 03:16 92 17 86/54 93 L 12/27/22 02:41 97 20 106/54 95 12/27/22 01:06 92 20 106/54 99 12/26/22 23:41 98.1 F 102 H 20 101/74 95 Intake and Output 12/26/22 12/27/22 12/27/22 22:59 06:59 14:59 Output Total 1700 Balance -1700 Output: Urine 1700 Other: Weight 42.638 kg Results CBC & Chem 7: 12/27/22 01:18 12/27/22 01:18 Labs: Abnormal Lab Results - Last 24 Hours (Table) 12/27/22 12/27/22 Range/Units 01:18 01:18 Hgb 10.2 L (11.4-16.0) gm/dL MCV 79.8 L D (80.0-100.0) fL MCH 23.9 L (25.0-35.0) pg MCHC 30.0 L (31.0-37.0) g/dL RDW 18.0 H (11.5-15.5) % Sodium 134 L (137-145) mmol/L Chloride 96 L (98-107) mmol/L BUN 44 H (7-17) mg/dL Creatinine 1.21 H (0.52-1.04) mg/dL Glucose 102 H (74-99) mg/dL AST 59 H (14-36) U/L Total Protein 8.4 H (6.3-8.2) g/dL
[2022-12-27] MEDS: AMIODARONE 200 MG TAB PO SCH (10:01)
[2022-12-27] MEDS: METOPROLOL TARTRATE 50 MG TAB PO SCH (10:01)
--- NOTE | 2022-12-27 10:38 | P.HPOR ---
History of Present Illness H&P Date: 12/27/22 This is a 77-year-old female who is admitted for right hip fracture. Patient is seen and evaluated at bedside today. Family is present at bedside. Patient states that she fell at home in the kitchen. Patient was evaluated in the emergency room where x-rays revealed a right intertrochanteric femur fracture. Patient states that she surgery for a left hip fracture last year and sometimes uses a wheelchair, walker or cane around her house. Patient's past medical history is significant for atrial fibrillation, coronary artery disease, congestive heart failure, COPD and history of recent pulmonary embolism. Patient has been on Lovenox for her recent pulmonary embolism. Patient denies any fever/chills, numbness, weakness, tingling, abdominal pain, shortness of breath or chest pain. Review of Systems Se HPI. Past Medical History Past Medical History: Atrial Fibrillation, Blood Disorder, Coronary Artery Disease (CAD), Chest Pain / Angina, Heart Failure, COPD, Fibromyalgia, GERD/Reflux, GI Bleed, Hypertension, Myocardial Infarction ([place]), Musculoskeletal Disorder, Osteoarthritis (OA), Thyroid Disorder Additional Past Medical History / Comment(s): Pacemaker for Syncope/Tachybrady Syndrome. Hx RHEUMATIC FEVER. Heart murmur, chronic back and bilateral shoulder pain. SEVERE OSTEOPROSIS, Vertigo, Degenerative Joint Disease, GI ulcers, esophagitis/esophageal stricture, partially blocked bile duct, PROBLEMS WITH SWALLOWING, "no symptoms of COPD." FALLS "Cannot lie down for long without having back pain.". Left hip open reduction internal fixation of some troch anteric comminuted femur fracture in November 2021 Last Myocardial Infarction Date:: 2002 History of Any Multi-Drug Resistant Organisms: None Reported Past Surgical History: Appendectomy, Cardiac Ablation, Cholecystectomy, Ear Surgery, Heart Catheterization, Hysterectomy, Orthopedic Surgery, Pacemaker, Tonsillectomy Additional Past Surgical History / Comment(s): ORIF LEFT LOWER ARM, HAS HARDWARE, numerous DILATATION OF ESOPHAGUS, biopsies were negative, colonoscopy, Pacemaker (ADAPTA) placed 07/07 at [facility], bilateral stapedectomies(stainless steel in both ears), Hiatal Hernia repair, inguinal and femoral hernia repairs, "cement placed in back, due to broken back/pelvis". Left Femur Surgery 12/09/21 Past Anesthesia/Blood Transfusion Reactions: Family History of Problems w/ Anesthesia, Motion Sickness, Postoperative Nausea & Vomiting (PONV) Additional Past Anesthesia/Blood Transfusion Reaction / Comment(s): No problems with prior blood transfusion. BROTHER HAS PONV. Type of Cardiac Device: Permanent Pacemaker Device Placement Date:: 06/2016 Past Psychological History: No Psychological Hx Reported Smoking Status: Never smoker Past Alcohol Use History: None Reported Past Drug Use History: None Reported - Past Family History Brother(s) Family Medical History: Cancer Additional Family Medical History / Comment(s): Throat cancer. Father Family Medical History: Pneumonia Additional Family Medical History / Comment(s): EMPHYSEMA. Mother Family Medical History: COPD, Rheumatoid Arthritis (RA) Additional Family Medical History / Comment(s): EMPHYSEMA. Medications and Allergies Home Medications Medication Instructions Recorded Confirmed Type L.acidoph,Paracasei, B.lactis 1 cap PO DAILY 02/06/20 12/27/22 History [Probiotic] Metoprolol Tartrate [Lopressor] 50 mg PO DAILY 10/05/20 12/27/22 History Spironolactone [Aldactone] 25 mg PO DAILY 08/04/21 12/27/22 History Pantoprazole [Protonix] 40 mg PO BID 12/27/21 12/27/22 History Amiodarone [Cordarone] 200 mg PO DAILY 02/03/22 12/27/22 History Potassium Chloride ER [K-Dur 10] 40 meq PO BID 02/03/22 12/27/22 History Acetaminophen [Tylenol Extra 1,000 mg PO QID PRN 09/20/22 12/27/22 History Strength] Mupirocin 2% Oint [Bactroban 2% 1 applic TOPICAL BID 09/20/22 12/27/22 History Oint] Ondansetron [Zofran] 4 mg PO TID PRN 09/20/22 12/27/22 History Sennosides [Senokot] 8.6 mg PO DAILY 09/20/22 12/27/22 History Triamcinolone 0.5% Cream [Kenalog 1 applic TOPICAL DAILY 09/20/22 12/27/22 History 0.5% Cream] hydrOXYzine pamoate [Vistaril] 25 mg PO Q6H PRN 09/20/22 12/27/22 History Aspirin EC [Ecotrin Low Dose] 81 mg PO DAILY 11/13/22 12/27/22 History Clopidogrel [Plavix] 75 mg PO DAILY 11/13/22 12/27/22 History Doxepin HCl 6 mg PO HS 11/13/22 12/27/22 History HYDROcodone/APAP 5-325MG [[place] 1 tab PO Q4H PRN 11/13/22 12/27/22 History 5-325] Levothyroxine Sodium [Synthroid] 100 mcg PO DAILY 11/13/22 12/27/22 History Folic Acid 1 mg PO DAILY #30 tab 11/15/22 12/27/22 Rx dilTIAZem HCL [dilTIAZem HCL 24Hr 180 mg PO DAILY #30 cap 11/15/22 12/27/22 Rx ER (CD)] Butalb/Acetaminophen/Caffeine 1 cap PO BID PRN 12/27/22 12/27/22 History [Fioricet 50-300-40 mg Capsule] Enoxaparin [Lovenox] 40 mg SQ DAILY 12/27/22 12/27/22 History Furosemide [Lasix] 40 mg PO BID@0700,1600 12/27/22 12/27/22 History oxyCODONE HCL [OxyCONTIN] 20 mg PO BID-W/MEALS 12/27/22 12/27/22 History Allergies Allergy/AdvReac Type Severity Reaction Status Date / Time adhesive Allergy RASH FROM Verified 12/27/22 06:56 EKG STICKERS apixaban [From Eliquis] Allergy Rash/Hives Verified 12/27/22 06:56 celecoxib [From Celebrex] Allergy Rash/Hives Verified 12/27/22 06:56 sertraline HCl [From Zoloft] Allergy Rash/Hives Verified 12/27/22 06:56 sulfamethoxazole Allergy Anaphylaxis Verified 12/27/22 06:56 [From Bactrim] trimethoprim [From Bactrim] Allergy Anaphylaxis Verified 12/27/22 06:56 cholestyramine AdvReac DIZZY/CONFU Verified 12/27/22 06:56 SED Physical Examination On exam patient is resting comfortably in bed in no acute distress. Patient is alert and oriented 3. Right lower extremity: The right lower extremity is shortened and externally rotated. Skin is intact. There is tenderness to palpation over the right hip. Calf is soft and nontender to palpation. Patient has good range of motion of the right foot and ankle. Sensation intact. Neurovascular status and circulatory status are intact. Head is normocephalic and atraumatic. Exams of the neck, bilateral upper extremities and the left lower extremity are within normal limits. Results X-rays of the right hip and pelvis are reviewed revealing right intertrochanteric femur fracture. Intramedullary nail of the left femur noted. - Labs Labs: Abnormal Lab Results - Last 24 Hours (Table) 12/27/22 12/27/22 Range/Units 01:18 01:18 Hgb 10.2 L (11.4-16.0) gm/dL MCV 79.8 L D (80.0-100.0) fL MCH 23.9 L (25.0-35.0) pg MCHC 30.0 L (31.0-37.0) g/dL RDW 18.0 H (11.5-15.5) % Sodium 134 L (137-145) mmol/L Chloride 96 L (98-107) mmol/L BUN 44 H (7-17) mg/dL Creatinine 1.21 H (0.52-1.04) mg/dL Glucose 102 H (74-99) mg/dL AST 59 H (14-36) U/L Total Protein 8.4 H (6.3-8.2) g/dL H & H 12/27/22 Range/Units 01:18 Hgb 10.2 L (11.4-16.0) gm/dL Hct 34.2 (34.0-46.0) % Coagulation 12/27/22 Range/Units 02:45 INR 1.0 (<1.2) Result Diagrams: 12/27/22 01:18 12/27/22 01:18 Assessment and Plan (1) Closed right hip fracture Current Visit: Yes Status: Acute Code(s): S72.001A - FRACTURE OF UNSP PART OF NECK OF RIGHT FEMUR, INIT SNOMED Code(s): 668507876 (2) Fall Current Visit: Yes Status: Acute Code(s): W19.XXXA - UNSPECIFIED FALL, INITIAL ENCOUNTER SNOMED Code(s): 8474707 Plan: 1. Patient is to be NPO today. 2. Appreciate input from internal medicine and cardiology. 3. Planning for closed reduction and intramedullary nailing of the right hip later today pending medical clearance and patient consent.
[2022-12-27 11:33] VITALS: BMI 17.7
[2022-12-27] MEDS: ASPIRIN 81 MG PO SCH (12:29)
--- NOTE | 2022-12-27 13:11 | P.CRDCN ---
History of Present Illness Consult date: 12/27/22 History of present illness: HISTORY OF PRESENTING ILLNESS 77-year-old with past medical history of chronic atrial fibrillation, status post recent watchman device placement in October 2022, coronary artery disease, congestive heart failure, COPD, underweight and failure to thrive. In October 2022 she was admitted for chest pain and shortness of breath. At that time she was found to have left-sided pulmonary embolism without evidence of RV strain. She was discharged home on Lovenox. This time she presented to ER after having a fall and severe right hip pain. Patient reports that she was standing in her kitchen trying to open [place]ic when she tripped and had a fall. Initial workup shown displaced right hip fracture and she is being planned for orthopedic surgery and open reduction and internal fixation today by orthopedics. On admission her hemoglobin was 10.2, creatinine 1.21 DIAGNOSTICS EKG reveals atrial fibrillation with heart rate of 115, no significant ST-T wave changes diagnostic for ischemia. Chest x-ray shows a rotated film. He does not show any acute cardiac permit process, pacemaker in place Home cardiac medications include amiodarone 200 mg, aspirin 81 mg, Spiriva lactone 25 mg, Cardizem 180 mg, Lasix 40 mg twice a day, metoprolol tartrate 50 mg, Plavix 75 mg. REVIEW OF SYSTEMS 14 point review of system is negative except what is mentioned above in HPI. PHYSICAL EXAMINATION Vital signs reviewed. Head: Normocephalic. Eyes: Sclerae nonicteric. Neck: Brisk carotid upstroke, no jugular venous distention. Lungs: Clear to auscultation. Heart: Regular rate and rhythm, S1-S2, no S3, no murmur or rub. Abdomen: Soft nontender, positive bowel sounds no organomegaly. Extremities: Significant pain and right hip with restricted movement Neurological, alert oriented, in significant pain and distress ASSESSMENT Perioperative cardiac risk assessment for right hip surgery Mechanical fall, leading to right hip fracture Chronic atrial fibrillation Status post watchman procedure October 2022 Recent acute non-massive PE October 2022 COPD next and CAD CKD baseline creatinine 1.2 PLAN Due to recent watchman device placement, I will start her on aspirin 81 mg daily to prevent stroke or device-related thrombosis. We'll hold Plavix momentarily for surgery and would have to resume it 1-2 days after the surgery. Patient is at high risk for watchman device-related thrombus and stroke Would recommend to be started on Lovenox or IV heparin 1-2 days after surgery for her recent non-massive PE. Continue amiodarone and Cardizem, metoprolol. Obtain medical records from [facility] Patient is at high risk for surgery due to her comorbidities, which include recent watchman device placement, recent pulmonary embolism. This was completed with the patient and her family. They would like to proceed with surgery for pain alleviation and palliation. Past Medical History Past Medical History: Atrial Fibrillation, Blood Disorder, Coronary Artery Disease (CAD), Chest Pain / Angina, Heart Failure, COPD, Fibromyalgia, GERD/Reflux, GI Bleed, Hypertension, Myocardial Infarction (MT), Musculoskeletal Disorder, Osteoarthritis (OA), Thyroid Disorder Additional Past Medical History / Comment(s): Pacemaker for Syncope/Tachybrady Syndrome. Hx RHEUMATIC FEVER. Heart murmur, chronic back and bilateral shoulder pain. SEVERE OSTEOPROSIS, Vertigo, Degenerative Joint Disease, GI ulcers, esophagitis/esophageal stricture, partially blocked bile duct, PROBLEMS WITH SWALLOWING, "no symptoms of COPD." FALLS "Cannot lie down for long without having back pain.". Left hip open reduction internal fixation of some trochan teric comminuted femur fracture in November 2021 Last Myocardial Infarction Date:: 2002 History of Any Multi-Drug Resistant Organisms: None Reported Past Surgical History: Appendectomy, Cardiac Ablation, Cholecystectomy, Ear Camara rgery, Heart Catheterization, Hysterectomy, Orthopedic Surgery, Pacemaker, Tonsillectomy Additional Past Surgical History / Comment(s): ORIF LEFT LOWER ARM, HAS HARDWARE, numerous DILATATION OF ESOPHAGUS, biopsies were negative, colonoscopy, Pacemaker (ADAPTA) placed 07/07 at [facility], bilateral stapedectomies(stainless steel in both ears), Hiatal Hernia repair, inguinal and femoral hernia repairs, "cement placed in back, due to broken back/pelvis". Left Femur Surgery 12/09/21 Past Anesthesia/Blood Transfusion Reactions: Family History of Problems w/ Anesthesia, Motion Sickness, Postoperative Nausea & Vomiting (PONV) Additional Past Anesthesia/Blood Transfusion Reaction / Comment(s): No problems with prior blood transfusion. BROTHER HAS PONV. Type of Cardiac Device: Permanent Pacemaker Device Placement Date:: 06/2016 Past Psychological History: No Psychological Hx Reported Smoking Status: Never smoker Past Alcohol Use History: None Reported Past Drug Use History: None Reported - Past Family History Brother(s) Family Medical History: Cancer Additional Family Medical History / Comment(s): Throat cancer. Father Family Medical History: Pneumonia Additional Family Medical History / Comment(s): EMPHYSEMA. Mother Family Medical History: COPD, Rheumatoid Arthritis (RA) Additional Family Medical History / Comment(s): EMPHYSEMA. Medications and Allergies Home Medications Medication Instructions Recorded Confirmed Type L.acidoph,Paracasei, B.lactis 1 cap PO DAILY 02/06/20 12/27/22 History [Probiotic] Metoprolol Tartrate [Lopressor] 50 mg PO DAILY 10/05/20 12/27/22 History Spironolactone [Aldactone] 25 mg PO DAILY 08/04/21 12/27/22 History Pantoprazole [Protonix] 40 mg PO BID 12/27/21 12/27/22 History Amiodarone [Cordarone] 200 mg PO DAILY 02/03/22 12/27/22 History Potassium Chloride ER [K-Dur 10] 40 meq PO BID 02/03/22 12/27/22 History Acetaminophen [Tylenol Extra 1,000 mg PO QID PRN 09/20/22 12/27/22 History Strength] Mupirocin 2% Oint [Bactroban 2% 1 applic TOPICAL BID 09/20/22 12/27/22 History Oint] Ondansetron [Zofran] 4 mg PO TID PRN 09/20/22 12/27/22 History Sennosides [Senokot] 8.6 mg PO DAILY 09/20/22 12/27/22 History Triamcinolone 0.5% Cream [Kenalog 1 applic TOPICAL DAILY 09/20/22 12/27/22 History 0.5% Cream] hydrOXYzine pamoate [Vistaril] 25 mg PO Q6H PRN 09/20/22 12/27/22 History Aspirin EC [Ecotrin Low Dose] 81 mg PO DAILY 11/13/22 12/27/22 History Clopidogrel [Plavix] 75 mg PO DAILY 11/13/22 12/27/22 History Doxepin HCl 6 mg PO HS 11/13/22 12/27/22 History HYDROcodone/APAP 5-325MG [[place] 1 tab PO Q4H PRN 11/13/22 12/27/22 History 5-325] Levothyroxine Sodium [Synthroid] 100 mcg PO DAILY 11/13/22 12/27/22 History Folic Acid 1 mg PO DAILY #30 tab 11/15/22 12/27/22 Rx dilTIAZem HCL [dilTIAZem HCL 24Hr 180 mg PO DAILY #30 cap 11/15/22 12/27/22 Rx ER (CD)] Butalb/Acetaminophen/Caffeine 1 cap PO BID PRN 12/27/22 12/27/22 History [Fioricet 50-300-40 mg Capsule] Enoxaparin [Lovenox] 40 mg SQ DAILY 12/27/22 12/27/22 History Furosemide [Lasix] 40 mg PO BID@0700,1600 12/27/22 12/27/22 History oxyCODONE HCL [OxyCONTIN] 20 mg PO BID-W/MEALS 12/27/22 12/27/22 History Allergies Allergy/AdvReac Type Severity Reaction Status Date / Time adhesive Allergy RASH FROM Verified 12/27/22 06:56 EKG STICKERS apixaban [From Eliquis] Allergy Rash/Hives Verified 12/27/22 06:56 celecoxib [From Celebrex] Allergy Rash/Hives Verified 12/27/22 06:56 sertraline HCl [From Zoloft] Allergy Rash/Hives Verified 12/27/22 06:56 sulfamethoxazole Allergy Anaphylaxis Verified 12/27/22 06:56 [From Bactrim] trimethoprim [From Bactrim] Allergy Anaphylaxis Verified 12/27/22 06:56 cholestyramine AdvReac DIZZY/CONFU Verified 12/27/22 06:56 SED Physical Exam Vitals: Vital Signs Temp Pulse Pulse Resp BP BP Pulse Ox 12/27/22 07:55 98.9 F 95 19 112/67 95 12/27/22 06:54 95 14 110/55 94 L 12/27/22 06:05 97.9 F 105 H 23 112/59 95 12/27/22 05:08 98 17 99/53 95 12/27/22 03:48 92 13 100/61 97 12/27/22 03:16 92 17 86/54 93 L 12/27/22 02:41 97 20 106/54 95 12/27/22 01:06 92 20 106/54 99 12/26/22 23:41 98.1 F 102 H 20 101/74 95 Intake and Output 12/26/22 12/27/22 12/27/22 22:59 06:59 14:59 Output Total 1700 Balance -1700 Output: Urine 1700 Other: Weight 42.638 kg 42.638 kg Results 12/27/22 01:18 12/27/22 01:18 Cardiac Enzymes 12/27/22 12/27/22 Range/Units 01:18 01:18 AST 59 H (14-36) U/L Troponin I <0.012 (0.000-0.034) ng/mL Coagulation 12/27/22 Range/Units 02:45 PT 10.3 (9.0-12.0) sec APTT 22.5 (22.0-30.0) sec CBC 12/27/22 Range/Units 01:18 WBC 7.1 (3.8-10.6) k/uL RBC 4.29 (3.80-5.40) m/uL Hgb 10.2 L (11.4-16.0) gm/dL Hct 34.2 (34.0-46.0) % Plt Count 343 (150-450) k/uL Comprehensive Metabolic Panel 12/27/22 Range/Units 01:18 Sodium 134 L (137-145) mmol/L Potassium 4.3 (3.5-5.1) mmol/L Chloride 96 L (98-107) mmol/L Carbon Dioxide 23 (22-30) mmol/L BUN 44 H (7-17) mg/dL Creatinine 1.21 H (0.52-1.04) mg/dL Glucose 102 H (74-99) mg/dL Calcium 9.4 (8.4-10.2) mg/dL AST 59 H (14-36) U/L ALT 30 (4-34) U/L Alkaline Phosphatase 126 (38-126) U/L Total Protein 8.4 H (6.3-8.2) g/dL Albumin 4.7 (3.5-5.0) g/dL Current Medications Generic Name Dose Route Start Last Admin Trade Name Freq PRN Reason Stop Dose Admin Amiodarone HCl 200 mg 12/27/22 09:45 12/27/22 10:01 Amiodarone 200 Mg Tab PO 200 mg DAILY INOCENCIO Administration Aspirin 81 mg 12/27/22 12:30 12/27/22 12:29 Aspirin 81 Mg PO 81 mg DAILY INOCENCIO Administration Diltiazem HCl 180 mg 12/28/22 09:00 Diltiazem Cd 180 Mg Cap.Er.24h PO DAILY INOCENCIO Folic Acid 1 mg 12/28/22 09:00 Folic Acid 1 Mg Tab PO DAILY INOCENCIO Hydromorphone HCl 1 mg 12/27/22 01:57 12/27/22 12:29 Hydromorphone 1 Mg/Ml 1 Ml Syringe IVP 1 mg Q3HR PRN Administration Severe Pain (Scale 7 to 10) Sodium Chloride 1,000 mls @ 75 mls/hr 12/27/22 02:00 12/27/22 02:33 Saline 0.9% IV 75 mls/hr .[id number] INOCENCIO Administration Levothyroxine Sodium 100 mcg 12/28/22 06:30 Levothyroxine 100 Mc[place] 0630 INOCENCIO Metoprolol Tartrate 50 mg 12/27/22 09:45 12/27/22 10:01 Metoprolol Tartrate 50 Mg Tab PO 50 mg DAILY INOCENCIO Administration Naloxone HCl 0.2 mg 12/27/22 01:57 Naloxone 0.4 Mg/Ml 1 Ml Vial IV Q2M PRN Opioid Reversal Patient's Own ( 6 mg 12/27/22 21:00 Doxepin Hcl [Doxepin PO Hcl] 6 Mg Tablet) HS [facility] Ondansetron HCl 4 mg 12/27/22 01:57 Ondansetron 4 Mg/2 Ml Vial IVP Q8HR PRN Nausea And Vomiting Pantoprazole Sodium 40 mg 12/27/22 21:00 Pantoprazole 40 Mg Tablet PO BID INOCENCIO Senna 8.6 mg 12/28/22 09:00 Sennosides 8.6 Mg Tab PO DAILY INOCENCIO Intake and Output 12/26/22 12/27/22 12/27/22 22:59 06:59 14:59 Output Total 1700 Balance -1700 Output: Urine 1700 Other: Weight 42.638 kg 42.638 kg Patient Weight 12/28/22 06:59 Weight 42.638 kg 12/27/22 01:18 12/27/22 01:18
[2022-12-27] MEDS ORDERED: LACTATED RINGERS 1,000 ML IV ONE (16:46)
[2022-12-27] MEDS ORDERED: NEOSTIGMINE 1 MG/ML 10 ML VIAL ONE (16:58)
[2022-12-27] MEDS ORDERED: LIDOCAINE 2% INJ 20 MG/ML (2 ML VIAL) ONE (16:58)
[2022-12-27] MEDS ORDERED: PROPOFOL 10 MG/ML 20 ML VIAL IV ONE (16:58)
[2022-12-27] MEDS ORDERED: GLYCOPYRROLATE 0.2 MG/ML 2 ML VIAL ONE (16:58)
[2022-12-27] MEDS ORDERED: MIDAZOLAM 2 MG/2 ML VIAL ONE (16:58)
[2022-12-27] MEDS ORDERED: fentaNYL (PF) 50 MCG/ML 2 ML AMP ONE (16:58)
[2022-12-27] MEDS ORDERED: ROCURONIUM 10 MG/ML (5 ML VIAL) IV ONE (16:58)
[2022-12-27] MEDS ORDERED: SUCCINYLCHOLINE CHLORIDE 200 MG/10 ML VIAL IV ONE (16:58)
[2022-12-27] MEDS ORDERED: SODIUM CHLORIDE 0.9% 50 ML with ceFAZolin 1,000 MG IV ONE ×2 (17:02)
[2022-12-27] MEDS ORDERED: HYDROmorphone 0.5 MG/0.5 ML SYRINGE IVP PRN ×2 (18:15)
[2022-12-27] MEDS ORDERED: MAGNESIUM HYDROXIDE 2,400 MG/30 ML CUP PO PRN (18:15)
[2022-12-27] MEDS ORDERED: ONDANSETRON 4 MG/2 ML VIAL IVP PRN (18:15)
[2022-12-27] MEDS ORDERED: HYDROcodone/APAP 7.5-325MG 1 EACH TAB PO PRN (18:19)
[2022-12-27] MEDS: SENNOSIDES-DOCUSATE SODIUM 1 EACH TAB PO SCH ×2 (19:26→19:30)
[2022-12-27] MEDS: HYDROmorphone 0.5 MG/0.5 ML SYRINGE IVP PRN (19:26)
[2022-12-27] MEDS: PANTOPRAZOLE 40 MG TABLET PO SCH (19:26)
[2022-12-27] MEDS: DOXEPIN HCL 6 MG PO SCH (19:32)
--- NOTE | 2022-12-27 20:16 | XR ---
EXAMINATION TYPE: XR Hip Limited RT DATE OF EXAM: 12/27/2022 7:33 PM CLINICAL INDICATION:Female, 77 years old with history of Status post hip surgery, assess surgical ali gnment; [facility] COMPARISON: Prefixation radiographs TECHNIQUE: The right hip was examined in the frontal and lateral projections and a AP pelvis. FINDINGS: Post hip fixation changes, hardware is intact, alignment is appropriate. No evidence of fra cture. Postoperative changes of the soft tissues with subcutaneous gas. No evidence of any acute osse ous pathology or joint dislocation. Skin ty are present. Large fragment of the lesser trochanter remains detached and separate from the femur. IMPRESSION: Hip fixation changes with hardware intact and in appropriate alignment. No acute fracture.
--- NOTE | 2022-12-27 20:17 | FL ---
Intraoperative/procedural fluoroscopic services were provided. Total fluoroscopy time is 34 seconds w ith a total of 4 submitted images to PACS. Please see the operative/procedural note for further detai ls. DAP: 0.1784 mGym2
[2022-12-27] MEDS: HYDROcodone/APAP 7.5-325MG 1 EACH TAB PO PRN (22:00)
[2022-12-28] MEDS: HYDROmorphone 0.5 MG/0.5 ML SYRINGE IVP PRN ×8 (00:07→23:50)
[2022-12-28] MEDS: SODIUM CHLORIDE 0.9% 1,000 ML IV SCH ×3 (04:43→17:21)
[2022-12-28] MEDS: HYDROcodone/APAP 7.5-325MG 1 EACH TAB PO PRN ×3 (05:29→20:30)
[2022-12-28] MEDS: LEVOTHYROXINE 100 MCG TAB PO SCH (05:29)
[2022-12-28] MEDS: ONDANSETRON 4 MG/2 ML VIAL IVP PRN ×2 (05:30→18:03)
[2022-12-28] MEDS: ASPIRIN 81 MG PO SCH (09:06)
[2022-12-28] MEDS: FOLIC ACID 1 MG TAB PO SCH (09:06)
[2022-12-28] MEDS: PANTOPRAZOLE 40 MG TABLET PO SCH ×2 (09:06→22:12)
[2022-12-28] MEDS: SENNOSIDES 8.6 MG TAB PO SCH (09:06)
[2022-12-28] MEDS: METOPROLOL TARTRATE 50 MG TAB PO SCH (09:07)
[2022-12-28] MEDS: AMIODARONE 200 MG TAB PO SCH (09:07)
[2022-12-28] MEDS: DILTIAZEM CD 180 MG CAP.ER.24H PO SCH (09:09)
[2022-12-28 11:26] LABS: ALT 26 U/L (8-44); AST 29 U/L (13-35); Albumin 3.7 d/dL (3.8-4.9); Albumin/Globulin Ratio 1.48 Ratio (1.60-3.17); Alkaline Phosphatase 114 U/L (41-126); Blood Urea Nitrogen 17.6 mg/dL (9.0-27.0); Calcium 8.7 mg/dL (8.7-10.3); Carbon Dioxide 27.1 mmol/L (21.6-31.8); Chloride 103 mmol/L (96-109); Globulin 2.5 d/dL (1.6-3.3); Glucose 161 mg/dL (70-110); Magnesium 1.9 mg/dL (1.5-2.4); Phosphorus 2.9 mg/dL (2.4-5.1); Potassium 3.3 mmol/L (3.5-5.5); Sodium 142 mmol/L (135-145); Total Bilirubin 0.2 mg/dL (0.3-1.2); Total Protein 6.2 d/dL (6.2-8.2)
[2022-12-28 11:30] LABS: Basophils # (A) 0.04 X 10*3/uL (0.00-0.10); Basophils % (A) 0.3 %; Eosinophils # (A) 0 X 10*3/uL (0.04-0.35); Eosinophils % (A) 0 %; HCT 25.6 % (37.2-46.3); HGB 7.3 d/dL (12.0-15.0); Lymphocytes # (A) 0.95 X 10*3/uL (0.90-5.00); Lymphocytes % (A) 8.3 %; MCH 23.8 pg (27.0-32.0); MCHC 28.5 d/dL (32.0-37.0); MCV 83.4 FL (80.0-97.0); Mean Platelet Volume 11.2 FL (9.5-12.2); Monocytes # (A) 0.91 X 10*3/uL (0.20-1.00); Monocytes % (A) 7.9 %; NRBC Per 100 WBC 0 X 10*3/uL (0.00-0.01); Neutrophils # (A) 9.48 X 10*3/uL (1.80-7.70); Neutrophils % (A) 82.9 %; Platelet Count 336 X 10*3/uL (140-440); RBC 3.07 X 10*6/uL (4.10-5.20); RDW 19.7 % (11.5-14.5); WBC 11.45 X 10*3/uL (4.50-10.00)
--- NOTE | 2022-12-28 12:24 | P.PN ---
Subjective Progress Note Date: 12/28/22 This is a 77-year-old female who is status post closed reduction and intramedullary nailing of the right hip. This is postoperative day #1 and patient is seen and evaluated at bedside today. Patient states that the right hip is quite sore, but she was able to work with physical therapy today. Patient denies any new complaints today. Objective - Vital Signs Vital signs: Vital Signs Temp 98.3 F 12/28/22 08:19 Pulse 107 H 12/28/22 08:19 Resp 16 12/28/22 08:19 BP 93/53 12/28/22 08:19 Pulse Ox 96 12/28/22 08:28 FiO2 Intake & Output 12/27/22 12/28/22 12/28/22 18:59 06:59 18:59 Intake Total 1500 Output Total 1450 500 Balance 50 -500 Weight 42.638 kg Intake: IV 600 Intake, IV Titration 900 Amount Sodium Chloride 0.9% 1, 900 000 ml @ 75 mls/hr IV . [id number] [facility] Rx#:[id number] Output: Urine 1350 500 Uretheral (Gre[place]) 700 Estimated Blood Loss 100 Other: Voiding Method Indwelling Catheter Indwelling Catheter Indwelling Catheter # Bowel Movements 0 - Exam Vital signs are stable. Patient is in no acute distress and is alert and oriented 3. Calf is soft and nontender to palpation. Dressing intact with mild bloody drainage present. Patient has full foot and ankle motion without pain or difficulty. Sensation intact. Neurovascular status and circulatory status are intact. - Labs CBC & Chem 7: 12/28/22 05:52 12/28/22 05:52 Labs: Abnormal Lab Results - Last 24 Hours (Table) 12/28/22 12/28/22 Range/Units 05:52 05:52 WBC 11.45 H (4.50-10.00) X 10*3/uL RBC 3.07 L (4.10-5.20) X 10*6/uL Hgb 7.3 L (12.0-15.0) d/dL Hct 25.6 L (37.2-46.3) % MCH 23.8 L (27.0-32.0) pg MCHC 28.5 L (32.0-37.0) d/dL RDW 19.7 H (11.5-14.5) % Neutrophils # 9.48 H (1.80-7.70) X 10*3/uL Eosinophils # 0 L (0.04-0.35) X 10*3/uL Potassium 3.3 L (3.5-5.5) mmol/L Est GFR (CKD-EPI) 59 L (>=60) Glucose 161 H (70-110) mg/dL Total Bilirubin 0.2 L (0.3-1.2) mg/dL Albumin 3.7 L (3.8-4.9) d/dL Albumin/Globulin Ratio 1.48 L (1.60-3.17) Ratio Assessment and Plan (1) Closed right hip fracture Current Visit: Yes Status: Acute Code(s): S72.001A - FRACTURE OF UNSP PART OF NECK OF RIGHT FEMUR, INIT SNOMED Code(s): 805136554 (2) Fall Current Visit: Yes Status: Acute Code(s): W19.XXXA - UNSPECIFIED FALL, INITIAL ENCOUNTER SNOMED Code(s): 8160211 Plan: Continue routine postop care and pain control. Continue anticoagulation per internal medicine. Weightbearing as tolerated with a walker. Leave dressing in place for 7 days. If the dressing becomes saturated it is okay to put a new optifoam dressing on. Appreciate input from internal medicine. Anticipate discharge to ECF in the next 24-48 hrs.
--- NOTE | 2022-12-28 12:56 | P.PN ---
Subjective Progress Note Date: 12/28/22 Subjective: Patient underwent right knee internal fixation and is postoperative day 1. She tolerated the procedure well. She is doing well hemodynamically. PHYSICAL EXAMINATION Vital signs reviewed. Head: Normocephalic. Eyes: Sclerae nonicteric. Neck: Brisk carotid upstroke, no jugular venous distention. Lungs: Clear to auscultation. Heart: Regular rate and rhythm, S1-S2, no S3, no murmur or rub. Abdomen: Soft nontender, positive bowel sounds no organomegaly. Extremities: Significant pain and right hip with restricted movement Neurological, alert oriented, in significant pain and distress ASSESSMENT Mechanical fall, leading to right hip fracture Status post right hip internal fixation surgery postop day 1 Chronic atrial fibrillation Status post watchman procedure October 2022 Recent acute non-massive PE October 2022 COPD next and CAD CKD baseline creatinine 1.2 PLAN Due to recent watchman device placement, continue aspirin 81 mg daily. Would recommend starting Plavix 75 mg from tomorrow. Would recommend starting her on Lovenox 60 mg twice a day as she had a recent pulmonary embolism. Appreciate surgical input on recommendations to resume anticoagulation and antiplatelets. Continue amiodarone and Cardizem, metoprolol. Obtain medical records from [facility] Synopsis 77-year-old with past medical history of chronic atrial fibrillation, status post recent watchman device placement in October 2022, coronary artery disease, congestive heart failure, COPD, underweight and failure to thrive. In October 2022 she was admitted for chest pain and shortness of breath. At that time she was found to have left-sided pulmonary embolism without evidence of RV strain. She was discharged home on Lovenox. This time she presented to ER after having a fall and severe right hip pain. Patient reports that she was standing in her kitchen trying to open [place] when she tripped and had a fall. Initial workup shown displaced right hip fracture and she is being planned for orthopedic surgery and open reduction and internal fixation today by orthopedics. On admission her hemoglobin was 10.2, creatinine 1.21 DIAGNOSTICS EKG reveals atrial fibrillation with heart rate of 115, no significant ST-T wave changes diagnostic for ischemia. Chest x-ray shows a rotated film. He does not show any acute cardiac permit process, pacemaker in place Home cardiac medications include amiodarone 200 mg, aspirin 81 mg, Spiriva lactone 25 mg, Cardizem 180 mg, Lasix 40 mg twice a day, metoprolol tartrate 50 mg, Plavix 75 mg. Objective - Vital Signs Vital signs: Vital Signs Temp 98.0 F 12/28/22 12:51 Pulse 87 12/28/22 12:51 Resp 16 12/28/22 12:51 BP 90/58 12/28/22 12:51 Pulse Ox 96 12/28/22 08:28 FiO2 Intake & Output 12/27/22 12/28/22 12/28/22 18:59 06:59 18:59 Intake Total 1500 Output Total 1450 500 Balance 50 -500 Weight 42.638 kg Intake: IV 600 Intake, IV Titration 900 Amount Sodium Chloride 0.9% 1, 900 000 ml @ 75 mls/hr IV . [id number] [facility] Rx#:[id number] Output: Urine 1350 500 Uretheral ([place]) 700 Estimated Blood Loss 100 Other: Voiding Method Indwelling Catheter Indwelling Catheter Indwelling Catheter # Bowel Movements 0 - Labs CBC & Chem 7: 12/28/22 05:52 12/28/22 05:52 Labs: Abnormal Lab Results - Last 24 Hours (Table) 12/28/22 12/28/22 Range/Units 05:52 05:52 WBC 11.45 H (4.50-10.00) X 10*3/uL RBC 3.07 L (4.10-5.20) X 10*6/uL Hgb 7.3 L (12.0-15.0) d/dL Hct 25.6 L (37.2-46.3) % MCH 23.8 L (27.0-32.0) pg MCHC 28.5 L (32.0-37.0) d/dL RDW 19.7 H (11.5-14.5) % Neutrophils # 9.48 H (1.80-7.70) X 10*3/uL Eosinophils # 0 L (0.04-0.35) X 10*3/uL Potassium 3.3 L (3.5-5.5) mmol/L Est GFR (CKD-EPI) 59 L (>=60) Glucose 161 H (70-110) mg/dL Total Bilirubin 0.2 L (0.3-1.2) mg/dL Albumin 3.7 L (3.8-4.9) d/dL Albumin/Globulin Ratio 1.48 L (1.60-3.17) Ratio
[2022-12-28] MEDS ORDERED: CLOPIDOGREL 75 MG TAB PO SCH (13:00)
[2022-12-28] MEDS ORDERED: POTASSIUM CHLORIDE ER 20 MEQ TAB.ER PO STA (13:40)
--- NOTE | 2022-12-28 14:01 | P.PN ---
Subjective Progress Note Date: 12/28/22 (Delayed charting seen at 945) Patient is an 77-year-old female with complex medical history including atrial fibrillation, coronary artery disease, congestive heart failure, COPD, and mul tiple other comorbid conditions who presented to the ER after a fall from standing with complaints of severe right hip pain. In the ER she was found to have a minimally displaced right IT fracture. She was admitted to orthopedics and we were asked to consult for medical clearaance. Chest x-ray in the ER showed no acute process. Urinalysis was remarkable for hemoglobin 10.2, sodium 134, chloride 96, BUN 41, creatinine 1.21, and glucose of 102. Patient was recently here in October of 2022 with a pulmonary embolism where she was discharged home on Lovenox. Patient seen and examined at bedside. Her pain is much better now than it has been 6. She denies any unusual chest pain or shortness of breath. No other complaints currently. Vital signs reviewed General: nontoxic, no distress, appears at stated age Cardiovascular: S1S2 reg, no murmur, positive posterior tibial pulse bilateral, Lungs: Coarse breath sounds bilateral, no rhonchi, no rales , no accessory muscle use Neuro: CN II-XI grossly intact, no focal neuro deficits Psych: Alert, oriented, appropriate affect Assessment/Plan: 77 yo F with Right IT hip fracutre s/p repri on 12/28/22 Recent pulmonary embolism Acute blood loss anemia, anticipated outcome of surgery - check iron studies - repeat CBC in AM -Case discussed with TANNER Gonzalez and okay to resume Lovenox 60 mg daily. Hypertension Permanent A. fib Hypothyroidism Coronary artery disease COPD Chronic kidney disease stage III with baseline cr 1.2 -Diltiazem 180 mg daily, Lopressor 50 mg daily, amiodarone 200 mg daily -Protonix 40 mg twice daily - Lasix 40 m BID, continue to hold Aldactone given mildly low BP -Synthroid 100 g daily -Folic acid 1 mg daily -Doxepin 6 mg at night Imaging: Hip fixation changes with hardware in appropriate alignment. Data Review: Vitals reviewed in afebrile for the last 24 hours. Blood pressure marginally low Labs remarkable for hemoglobin 7.3 and potassium 3.3. B include CBC, BMP, liver tests Thank you for allowing us to participate in the care of this pleasant patient. Do not hesitate to contact us with questions. Someone can be reached from the [facility] hospitalist group all hours of the day at [phone] or via perfect serve. This dictation was prepared using [employer] voice recognition software. Though every attempt is made to correct errors during dictation some may still exist. Objective - Vital Signs Vital signs: Vital Signs Temp 98.0 F 12/28/22 12:51 Pulse 87 12/28/22 12:51 Resp 16 12/28/22 12:51 BP 90/58 12/28/22 12:51 Pulse Ox 96 12/28/22 08:28 FiO2 Intake & Output 12/27/22 12/28/22 12/28/22 18:59 06:59 18:59 Intake Total 1500 Output Total 1450 500 Balance 50 -500 Weight 42.638 kg Intake: IV 600 Intake, IV Titration 900 Amount Sodium Chloride 0.9% 1, 900 000 ml @ 75 mls/hr IV . [id number] [facility] Rx#:[id number] Output: Urine 1350 500 Uretheral (Gre[place]) 700 Estimated Blood Loss 100 Other: Voiding Method Indwelling Catheter Indwelling Catheter Indwelling Catheter # Bowel Movements 0 - Labs CBC & Chem 7: 12/28/22 05:52 12/28/22 05:52 Labs: Abnormal Lab Results - Last 24 Hours (Table) 12/28/22 12/28/22 Range/Units 05:52 05:52 WBC 11.45 H (4.50-10.00) X 10*3/uL RBC 3.07 L (4.10-5.20) X 10*6/uL Hgb 7.3 L (12.0-15.0) d/dL Hct 25.6 L (37.2-46.3) % MCH 23.8 L (27.0-32.0) pg MCHC 28.5 L (32.0-37.0) d/dL RDW 19.7 H (11.5-14.5) % Neutrophils # 9.48 H (1.80-7.70) X 10*3/uL Eosinophils # 0 L (0.04-0.35) X 10*3/uL Potassium 3.3 L (3.5-5.5) mmol/L Est GFR (CKD-EPI) 59 L (>=60) Glucose 161 H (70-110) mg/dL Total Bilirubin 0.2 L (0.3-1.2) mg/dL Albumin 3.7 L (3.8-4.9) d/dL Albumin/Globulin Ratio 1.48 L (1.60-3.17) Ratio
[2022-12-28] MEDS: ENOXAPARIN 60 MG/0.6 ML SYRINGE SQ SCH (14:22)
[2022-12-28 15:35] LABS: % Iron Saturation 3.94 (12.00-45.00); Ferritin 20.6 ng/mL (10.0-291.0)
--- NOTE | 2022-12-28 16:10 | P.OP ---
Date of Procedure: 12/28/22 Preoperative Diagnosis: Intratrochanteric fracture right hip Postoperative Diagnosis: Intertrochanteric fracture right hip Procedure(s) Performed: Close reduction and intramedullary nailing right hip Implants: [employer] Intertan nail 125, 11.5 mm x 18 cm. [employer] Intertan integrated-interlocking lag screw, 85 mm lag screw, 80 mm compression screw. [employer] L-P screw, 5.0 mm x 30 mm. Anesthesia: GETA Surgeon: David Fraire Angle Dozer Operator #1: Hansa Chi Estimated Blood Loss (ml): 100 Pathology: none sent Condition: stable Disposition: PACU Indications for Procedure: This is a 77-year-old female presented to the hospital after a fall. X-rays demonstrate a trochanteric fracture of the right hip. After discussing the surgical and nonsurgical treatment options with her and her family at length, I recommended a close reduction and intramedullary nailing of the right hip. Informed consent was obtained. Operative Findings: The operative findings are consistent with a closed intertrochanteric fracture of the right hip Description of Procedure: The patient was seen in the preoperative area, consent was reviewed, and the operative site was marked with a skin marker. The surgical procedure was discussed at length with both the patient and the family at the bedside. All questions were answered to the best of my ability. The patient was brought to the operating room and placed on the fracture table. Anesthesia was administered by the anesthesia department. 2 g of Ancef were administered intravenously. The patient was placed supine on the fracture table with the fractured extremity in traction boot. The other extremity was placed in a well leg cotto and the bony prominences were well padded. A universal timeout was then performed which confirmed the patient's name, surgical site, ALLERGIES, and consent. Fracture reduction was performed with a traction and abduction maneuver which was confirmed with fluoroscopy, both AP and lateral views.. After reduction was performed, the extremity was then prepped with ChloraPrep solution and draped in the usual sterile fashion. Utiliz ing fluoroscopy to identify the tip of the greater trochanter, a 3 cm longitudinal incision was made just proximal to the greater trochanter. Incision was carried through the fascia to the tip of the greater trochanter. Utilizing a curved awl, the entry point was created at the tip of the greater trochanter and centralized in the AP and lateral planes. These locations were confirmed by fluoroscopy. A guidewire was then inserted down the medullary canal. Sequentially reaming of the femur was performed to 13 mm distally and 17 mm proximally with the channel reamer. After reaming, appropriate size nail was inserted over the guidewire. The nail was inserted to the appropriate depth and the guidewire was removed. Placement of the thu was confirmed with both AP and lateral fluoroscopic views. The lag screw drill sleeve was placed in the jig and a small skin incision was made on the lateral aspect of the leg and the lag screw drill sleeve was locked into the guide. The 3.2 mm guide pin sleeve was inserted through the lag screw drill sleeve down to bone. A 3.2 mm distally threaded guidewire was inserted through the guide pin sleeve. The guidewire was inserted in the desired position in the femoral head, both anterior and posterior. The lag screw length cage was inserted over the guidepin to the back of the lag screw drill sleeve. Lag screw length was then measured from the cag e. Next, the 7.0 mm compression screw starter drill was inserted in the lag screw drill sleeve beneath the guidepin. The compression screw starter drill was advanced under power until it abutted the back and of the lag screw drill sleeve. The 7.0 mm compression screw drill was inserted through the lag screw drill sleeve into the hole created by the compression screw starter drill. This was advanced under fluoroscopy to a depth 5 mm less and the measurement taken for the guidepin. The compression screw drill was removed and the antirotation bar was inserted into the same hole. The 3.2 mm guide pin sleeve was then removed from the drill guide. The lag screw drill was then inserted to a depth that was measured by the lag screw gauge. This was done under fluoroscopy. The lag screw was inserted over the guidewire to the appropriate depth using fluoroscopy. Traction was then released. The antirotation bar was then removed and the compression screw was advanced through the lag screw drill sleeve beneath the lag screw. This was advanced to the appropriate compression was achieved. The proximal drill guide was then removed and the distal drill guide was then inserted in the jig. Skin incision was made down to bone and the distal drill guide was then placed. Distal hole was then drilled with a 4.0 mm drill and measured to the appropriate depth. Distal screw was then placed. The entire assembly was then removed and final fluoroscopic x-rays were obtained. The wounds were then irrigated copiously with saline solution. Fascia was closed with 0-Vicryl. Subcutaneous tissues were closed with 2-0 Vicryl and the skin was closed with ty. Sterile dressings were applied. The patient was transported to the recovery room in stable condition. The bioinformatics assistant TANNER Gonzalez was required due the complexity of surgery the need for skilled surgical services assistant for positioning draping retraction and fracture reduction.
[2022-12-28] MEDS: FUROSEMIDE 40 MG TAB PO SCH (16:17)
[2022-12-28] MEDS: DOXEPIN HCL 6 MG PO SCH (20:59)
[2022-12-28] MEDS ORDERED: POTASSIUM CHLORIDE ER 20 MEQ TAB.ER PO SCH (21:00)
[2022-12-28] MEDS: SENNOSIDES-DOCUSATE SODIUM 1 EACH TAB PO SCH (21:00)
[2022-12-29] MEDS: HYDROcodone/APAP 7.5-325MG 1 EACH TAB PO PRN ×4 (01:38→21:00)
[2022-12-29] MEDS: ONDANSETRON 4 MG/2 ML VIAL IVP PRN ×2 (01:38→12:52)
[2022-12-29] MEDS: HYDROmorphone 0.5 MG/0.5 ML SYRINGE IVP PRN ×4 (03:14→19:36)
[2022-12-29] MEDS: LEVOTHYROXINE 100 MCG TAB PO SCH (06:10)
[2022-12-29] MEDS: FUROSEMIDE 40 MG TAB PO SCH ×2 (06:10→17:11)
[2022-12-29 07:59] LABS: Anisocytosis Slight; HCT 23.3 % (34.0-46.0); Hypochromasia Marked; MCH 24.1 pg (25.0-35.0); MCHC 28.4 g/dL (31.0-37.0); MCV 84.7 fL (80.0-100.0); Mean Platelet Volume 8.6; Platelet Count 278 k/uL (150-450); RBC 2.76 m/uL (3.80-5.40); RDW 18.8 % (11.5-15.5); WBC 12.3 k/uL (3.8-10.6)
[2022-12-29 08:26] LABS: African American GFR (CKD) 87 (>60 ml/min/1.73 sqM); Anion Gap 6 mmol/L; Blood Urea Nitrogen 14 mg/dL (7-17); Calcium 8.5 mg/dL (8.4-10.2); Carbon Dioxide 28 mmol/L (22-30); Chloride 105 mmol/L (98-107); Glucose 122 mg/dL (74-99); Non-African American GFR(CKD) 76 (>60 ml/min/1.73 sqM); Sodium 139 mmol/L (137-145)
--- NOTE | 2022-12-29 08:40 | P.PN ---
Subjective Progress Note Date: 12/29/22 Subjective: Patient underwent right knee internal fixation and is postoperative day 2. She tolerated the procedure well. She is doing well hemodynamically. Her hemoglobin is 7.3 post surgery yesterday. Her hemoglobin on admission was 10. PHYSICAL EXAMINATION Vital signs reviewed. Head: Normocephalic. Eyes: Sclerae nonicteric. Neck: Brisk carotid upstroke, no jugular venous distention. Lungs: Clear to auscultation. Heart: Regular rate and rhythm, S1-S2, no S3, no murmur or rub. Abdomen: Soft nontender, positive bowel sounds no organomegaly. Extremities: Significant pain and right hip with restricted movement Neurological, alert oriented, in significant pain and distress ASSESSMENT Mechanical fall, leading to right hip fracture Status post right hip internal fixation surgery postop day 2 Chronic atrial fibrillation Status post watchman procedure October 2022 Recent acute non-massive PE October 2022 COPD next and CAD CKD baseline creatinine 1.2 PLAN Due to recent watchman device placement, continue aspirin 81 mg daily. Ideally she should be on dual antiplatelet therapy but because she had a recent pulmonary embolic in October, instead of going to an antiplatelets, I will recommend doing aspirin 81 mg and anticoagulation for next 3 months. Thereafter it should be assessed if her pulmonary embolism was provoked or unprovoked and if patient needs long-term anticoagulation or not. We will discontinue Plavix. Start her on Lovenox 60 mg twice daily (therapeutic dose) Monitor hemoglobin levels. If hemoglobin is less than 7, we will advise to transfuse. Continue amiodarone and Cardizem, metoprolol, lasix Obtain medical records from [facility] Synopsis 77-year-old with past medical history of chronic atrial fibrillation, status post recent watchman device placement in October 2022, coronary artery disease, congestive heart failure, COPD, underweight and failure to thrive. In October 2022 she was admitted for chest pain and shortness of breath. At that time she was found to have left-sided pulmonary embolism without evidence of RV strain. She was discharged home on Lovenox. This time she presented to ER after having a fall and severe right hip pain. Patient reports that she was standing in her kitchen trying to open [place] when she tripped and had a fall. Initial workup shown displaced right hip fracture and she is being planned for orthopedic surgery and open reduction and internal fixation today by orthopedics. On admission her hemoglobin was 10.2, creatinine 1.21 DIAGNOSTICS EKG reveals atrial fibrillation with heart rate of 115, no significant ST-T wave changes diagnostic for ischemia. Chest x-ray shows a rotated film. He does not show any acute cardiac permit process, pacemaker in place Home cardiac medications include amiodarone 200 mg, aspirin 81 mg, Spiriva lactone 25 mg, Cardizem 180 mg, Lasix 40 mg twice a day, metoprolol tartrate 50 mg, Plavix 75 mg. Objective - Vital Signs Vital signs: Vital Signs Temp 98.8 F 12/29/22 07:26 Pulse 96 12/29/22 07:26 Resp 16 12/29/22 07:26 BP 123/72 12/29/22 07:26 Pulse Ox 92 L 12/29/22 08:08 FiO2 Intake & Output 12/28/22 12/29/22 12/29/22 18:59 06:59 18:59 Intake Total 960 Output Total 600 500 Balance -600 460 Intake: Intake, IV Titration 720 Amount Sodium Chloride 0.9% 1, 720 000 ml @ 60 mls/hr IV . [id number] [facility] Rx#:[id number] Oral 240 Output: Urine 600 500 Other: Voiding Method Indwelling Catheter Indwelling Catheter Indwelling Catheter - Labs CBC & Chem 7: 12/28/22 05:52 12/29/22 06:11 Labs: Abnormal Lab Results - Last 24 Hours (Table) 12/28/22 12/28/22 12/28/22 Range/Units 05:52 05:52 05:52 WBC 11.45 H (4.50-10.00) X 10*3/uL RBC 3.07 L (4.10-5.20) X 10*6/uL Hgb 7.3 L (12.0-15.0) d/dL Hct 25.6 L (37.2-46.3) % MCH 23.8 L (27.0-32.0) pg MCHC 28.5 L (32.0-37.0) d/dL RDW 19.7 H (11.5-14.5) % Neutrophils # 9.48 H (1.80-7.70) X 10*3/uL Eosinophils # 0 L (0.04-0.35) X 10*3/uL Potassium 3.3 L (3.5-5.5) mmol/L Est GFR (CKD-EPI) 59 L (>=60) Glucose 161 H (70-110) mg/dL Iron 15 L (50-170) UG/DL % Saturation 3.94 L (12.00-45.00) Total Bilirubin 0.2 L (0.3-1.2) mg/dL Albumin 3.7 L (3.8-4.9) d/dL Albumin/Globulin Ratio 1.48 L (1.60-3.17) Ratio 12/29/22 Range/Units 06:11 WBC (4.50-10.00) X 10*3/uL RBC (4.10-5.20) X 10*6/uL Hgb (12.0-15.0) d/dL Hct (37.2-46.3) % MCH (27.0-32.0) pg MCHC (32.0-37.0) d/dL RDW (11.5-14.5) % Neutrophils # (1.80-7.70) X 10*3/uL Eosinophils # (0.04-0.35) X 10*3/uL Potassium (3.5-5.5) mmol/L Est GFR (CKD-EPI) (>=60) Glucose 122 H (70-110) mg/dL Iron (50-170) UG/DL % Saturation (12.00-45.00) Total Bilirubin (0.3-1.2) mg/dL Albumin (3.8-4.9) d/dL Albumin/Globulin Ratio (1.60-3.17) Ratio
[2022-12-29 08:50] LABS: HGB 6.6 gm/dL (11.4-16.0)
[2022-12-29] MEDS ORDERED: SPIRONOLACTONE 25 MG TAB PO SCH (09:00)
[2022-12-29] MEDS: METOPROLOL TARTRATE 50 MG TAB PO SCH (09:58)
[2022-12-29] MEDS: AMIODARONE 200 MG TAB PO SCH (09:58)
[2022-12-29] MEDS: FOLIC ACID 1 MG TAB PO SCH (09:58)
[2022-12-29] MEDS: ENOXAPARIN 60 MG/0.6 ML SYRINGE SQ SCH (09:58)
[2022-12-29] MEDS: ASPIRIN 81 MG PO SCH (10:00)
[2022-12-29] MEDS: DILTIAZEM CD 180 MG CAP.ER.24H PO SCH (10:00)
[2022-12-29] MEDS: PANTOPRAZOLE 40 MG TABLET PO SCH ×2 (10:00→21:47)
[2022-12-29] MEDS: SENNOSIDES 8.6 MG TAB PO SCH (10:00)
--- NOTE | 2022-12-29 10:31 | P.PN ---
Subjective Progress Note Date: 12/29/22 Principal diagnosis: Status post intertrochanteric nail right hip. Right hip fracture. This is a 77-year-old female who is status post closed reduction and intrame dullary nailing of the right hip. This is postoperative day #2 and patient is seen and evaluated at bedside today. Patient states that the right hip and knee are painful. Patient denies any new complaints today. Objective - Vital Signs Vital signs: Vital Signs Temp 98.8 F 12/29/22 07:26 Pulse 96 12/29/22 07:26 Resp 16 12/29/22 07:26 BP 123/72 12/29/22 07:26 Pulse Ox 92 L 12/29/22 08:08 FiO2 Intake & Output 12/28/22 12/29/22 12/29/22 18:59 06:59 18:59 Intake Total 960 Output Total 600 500 Balance -600 460 Intake: Intake, IV Titration 720 Amount Sodium Chloride 0.9% 1, 720 000 ml @ 60 mls/hr IV . [id number] [facility] Rx#:[id number] Oral 240 Output: Urine 600 500 Other: Voiding Method Indwelling Catheter Indwelling Catheter Indwelling Catheter - Exam This is a pleasant 77-year-old female in no acute distress. She is alert and oriented 3. Exam of the right hip reveals her dressing is clean, dry and intact. She has full foot and ankle motion without difficulty or pain. Neurovascular status to the lower extremity is intact. - Labs CBC & Chem 7: 12/29/22 06:11 12/29/22 06:11 Labs: Abnormal Lab Results - Last 24 Hours (Table) 12/28/22 12/28/22 12/28/22 Range/Units 05:52 05:52 05:52 WBC 11.45 H (4.50-10.00) X 10*3/uL RBC 3.07 L (4.10-5.20) X 10*6/uL Hgb 7.3 L (12.0-15.0) d/dL Hct 25.6 L (37.2-46.3) % MCH 23.8 L (27.0-32.0) pg MCHC 28.5 L (32.0-37.0) d/dL RDW 19.7 H (11.5-14.5) % Neutrophils # 9.48 H (1.80-7.70) X 10*3/uL Eosinophils # 0 L (0.04-0.35) X 10*3/uL Potassium 3.3 L (3.5-5.5) mmol/L Est GFR (CKD-EPI) 59 L (>=60) Glucose 161 H (70-110) mg/dL Iron 15 L (50-170) UG/DL % Saturation 3.94 L (12.00-45.00) Total Bilirubin 0.2 L (0.3-1.2) mg/dL Albumin 3.7 L (3.8-4.9) d/dL Albumin/Globulin Ratio 1.48 L (1.60-3.17) Ratio 12/29/22 12/29/22 Range/Units 06:11 06:11 WBC 12.3 H (4.50-10.00) X 10*3/uL RBC 2.76 L (4.10-5.20) X 10*6/uL Hgb 6.6 L* D (12.0-15.0) d/dL Hct 23.3 L (37.2-46.3) % MCH 24.1 L (27.0-32.0) pg MCHC 28.4 L (32.0-37.0) d/dL RDW 18.8 H (11.5-14.5) % Neutrophils # (1.80-7.70) X 10*3/uL Eosinophils # (0.04-0.35) X 10*3/uL Potassium (3.5-5.5) mmol/L Est GFR (CKD-EPI) (>=60) Glucose 122 H (70-110) mg/dL Iron (50-170) UG/DL % Saturation (12.00-45.00) Total Bilirubin (0.3-1.2) mg/dL Albumin (3.8-4.9) d/dL Albumin/Globulin Ratio (1.60-3.17) Ratio Assessment and Plan (1) Closed right hip fracture Current Visit: Yes Status: Acute Code(s): S72.001A - FRACTURE OF UNSP PART OF NECK OF RIGHT FEMUR, INIT SNOMED Code(s): 395901925 (2) Fall Current Visit: Yes Status: Acute Code(s): W19.XXXA - UNSPECIFIED FALL, INITIAL ENCOUNTER SNOMED Code(s): 6434813 (3) History of fracture of left hip Current Visit: Yes Status: Acute Code(s): Z87.81 - PERSONAL HISTORY OF (HEA LED) TRAUMATIC FRACTURE SNOMED Code(s): 767886481 Plan: The clinical findings are discussed with the patient and her family. She may be discharged to inpatient rehab when cleared medically. Continue care and physical therapy until discharge.
[2022-12-29] MEDS: POTASSIUM BICARBONATE/CIT AC 20 MEQ TABLET.EFF PO SCH ×2 (11:32→22:37)
--- NOTE | 2022-12-29 13:28 | P.PN ---
Subjective Progress Note Date: 12/29/22 Hospital course: Patient is a pleasant 77-year-old female with a past medical history of paroxysmal atrial fibrillation and recent diagnosis of PE on anticoagulation with Lovenox, coronary artery disease, congestive heart failure, COPD, and multiple other comorbid conditions. She presented to the emergency department on 12/27/22 status post fall resulting in right hip pain. Patient was found to have a comminuted minimally displaced intertrochanteric right hip fracture. She was admitted under orthopedic surgery team and we were consulted for medical management throughout hospitalization. Physical exam: General: non toxic, no distress, appears at stated age Derm: warm, dry. Postsurgical Dressing in place right hip, clean dry and intact. Head: atraumatic, normocephalic, symmetric Eyes: EOMI, no lid lag, anicteric sclera Mouth: no lip lesion, mucus membranes moist Cardiovascular: Irregularly irregular with systolic murmur, positive posterior tibial pulses bilaterally, Lungs: CTA bilateral, no rhonchi, no rales , no accessory muscle use Abdominal: soft, nontender to palpation, no guarding, no appreciable organomegaly Ext: no gross muscle atrophy, no edema, no contractures. Movement and sensation intact. Neuro: CN II-XI grossly intact, no focal neuro deficits Psych: Alert, oriented, appropriate affect Assessment and plan of care: Acute postoperative blood loss anemia Preoperative hemoglobin 10.2 with postoperative hemoglobin 7.3 and repeat morning hemoglobin of 6.6. Orders placed for transfusion 1 unit PRBCs At this time patient to continue with Lovenox secondary to recently diagnosed pulmonary emboli. We will continue to monitor with repeat CBC and transfuse as indicated for hemoglobin less than 7. Status post closed reduction internal fixation of right hip with intramedullary nailing on 12/28/22 Management per primary admitting orthopedic surgery team including pain management, wound/dressing care, weightbearing, and PT/OT. After approval by orthopedic surgery team, patient resumed therapeutic Lovenox 60 mg daily for treatment of recently diagnosed pulmonary emboli. Hypertension Permanent A. fib Hypothyroidism Coronary artery disease COPD Chronic kidney disease stage III with baseline cr 1.2 Continue home medication regimen with: -Diltiazem 180 mg daily, Lopressor 50 mg daily, amiodarone 200 mg daily -Protonix 40 mg twice daily -Lasix 40 m BID, continue to hold Aldactone given mildly low BP -Synthroid 100 g daily -Folic acid 1 mg daily -Doxepin 6 mg at night Imaging reviewed: No new imaging for review. Data reviewed: Morning labs reviewed. CBC showing leukocytosis with WBC count of 12.3 and acute blood loss anemia with hemoglobin of 6.6. Orders placed for transfusion of 1 unit PRBCs. BMP was unremarkable. Vital signs reviewed. Blood pressure 123/72, heart rate 103, respiratory rate 16, temp 98.8F, and SpO2 of 92% on room air. Thank you for allowing us to participate in the care of this pleasant patient. Do not hesitate to contact us with questions. Someone can be reached from the [facility] hospitalist group all hours of the day at [phone] or via [employer] ([employer]). Patient was seen independently by Nurse Pracitioner. This document was prepared using [employer] dictation software. Please allow for e rrors in hobbing machine operator, while rare they do occur. Osman Smith NP rendered care for this patient independently, reviewed the findings and plan as documented in the note above. I did not physically speak with or examine the patient on this date. Objective - Vital Signs Vital signs: Vital Signs Temp 98.8 F 12/29/22 07:26 Pulse 96 12/29/22 07:26 Resp 16 12/29/22 07:26 BP 123/72 12/29/22 07:26 Pulse Ox 92 L 12/29/22 08:08 FiO2 Intake & Output 12/28/22 12/29/22 12/29/22 18:59 06:59 18:59 Intake Total 960 Output Total 600 500 Balance -600 460 Intake: Intake, IV Titration 720 Amount Sodium Chloride 0.9% 1, 720 000 ml @ 60 mls/hr IV . [id number] [facility] Rx#:[id number] Oral 240 Output: Urine 600 500 Other: Voiding Method Indwelling Catheter Indwelling Catheter Indwelling Catheter - Labs CBC & Chem 7: 01/01/23 06:40 01/01/23 06:40 Labs: Abnormal Lab Results - Last 24 Hours (Table) 12/28/22 12/28/22 12/28/22 Range/Units 05:52 05:52 05:52 WBC 11.45 H (4.50-10.00) X 10*3/uL RBC 3.07 L (4.10-5.20) X 10*6/uL Hgb 7.3 L (12.0-15.0) d/dL Hct 25.6 L (37.2-46.3) % MCH 23.8 L (27.0-32.0) pg MCHC 28.5 L (32.0-37.0) d/dL RDW 19.7 H (11.5-14.5) % Neutrophils # 9.48 H (1.80-7.70) X 10*3/uL Eosinophils # 0 L (0.04-0.35) X 10*3/uL Potassium 3.3 L (3.5-5.5) mmol/L Est GFR (CKD-EPI) 59 L (>=60) Glucose 161 H (70-110) mg/dL Iron 15 L (50-170) UG/DL % Saturation 3.94 L (12.00-45.00) Total Bilirubin 0.2 L (0.3-1.2) mg/dL Albumin 3.7 L (3.8-4.9) d/dL Albumin/Globulin Ratio 1.48 L (1.60-3.17) Ratio // Range/Units 06:11 WBC (4.50-10.00) X 10*3/uL RBC (4.10-5.20) X 10*6/uL Hgb (12.0-15.0) d/dL Hct (37.2-46.3) % MCH (27.0-32.0) pg MCHC (32.0-37.0) d/dL RDW (11.5-14.5) % Neutrophils # (1.80-7.70) X 10*3/uL Eosinophils # (0.04-0.35) X 10*3/uL Potassium (3.5-5.5) mmol/L Est GFR (CKD-EPI) (>=60) Glucose 122 H (70-110) mg/dL Iron (50-170) UG/DL % Saturation (12.00-45.00) Total Bilirubin (0.3-1.2) mg/dL Albumin (3.8-4.9) d/dL Albumin/Globulin Ratio (1.60-3.17) Ratio
[2022-12-29] MEDS: hydrOXYzine pamoate 25 MG CAP PO PRN (15:16)
[2022-12-29] MEDS: SODIUM CHLORIDE 0.9% 1,000 ML IV SCH (21:07)
[2022-12-29] MEDS: DOXEPIN HCL 6 MG PO SCH (21:07)
[2022-12-29] MEDS: SENNOSIDES-DOCUSATE SODIUM 1 EACH TAB PO SCH (21:47)
[2022-12-30] MEDS: HYDROmorphone 0.5 MG/0.5 ML SYRINGE IVP PRN ×5 (00:18→21:53)
[2022-12-30] MEDS: hydrOXYzine pamoate 25 MG CAP PO PRN ×3 (00:19→22:20)
[2022-12-30] MEDS: HYDROcodone/APAP 7.5-325MG 1 EACH TAB PO PRN ×3 (02:24→17:45)
[2022-12-30] MEDS: LACTOBACILLUS ACIDOPHILUS/PECT 1 EACH CAPSULE PO SCH (07:19)
[2022-12-30] MEDS: DILTIAZEM CD 180 MG CAP.ER.24H PO SCH (07:19)
[2022-12-30] MEDS: METOPROLOL TARTRATE 50 MG TAB PO SCH (07:19)
[2022-12-30] MEDS: SENNOSIDES 8.6 MG TAB PO SCH (07:19)
[2022-12-30] MEDS: LEVOTHYROXINE 100 MCG TAB PO SCH (07:20)
[2022-12-30] MEDS: ASPIRIN 81 MG PO SCH (07:20)
[2022-12-30] MEDS: PANTOPRAZOLE 40 MG TABLET PO SCH ×2 (07:20→22:14)
[2022-12-30] MEDS: AMIODARONE 200 MG TAB PO SCH (07:20)
[2022-12-30] MEDS: FOLIC ACID 1 MG TAB PO SCH (07:20)
[2022-12-30] MEDS: ENOXAPARIN 60 MG/0.6 ML SYRINGE SQ SCH (07:20)
[2022-12-30] MEDS: FUROSEMIDE 40 MG TAB PO SCH ×2 (07:20→17:45)
[2022-12-30] MEDS: POTASSIUM BICARBONATE/CIT AC 20 MEQ TABLET.EFF PO SCH ×2 (07:21→22:14)
[2022-12-30] MEDS: ONDANSETRON 4 MG/2 ML VIAL IVP PRN (07:51)
[2022-12-30 08:22] LABS: Anisocytosis Slight; Basophils % (A) 0 %; Eosinophils # (A) 0.1 k/uL (0-0.7); Eosinophils % (A) 1 %; HCT 28.9 % (34.0-46.0); Hypochromasia Marked; Lymphocytes # (A) 1.5 k/uL (1.0-4.8); Lymphocytes % (A) 14 %; MCH 25.4 pg (25.0-35.0); MCV 84.6 fL (80.0-100.0); Mean Platelet Volume 8.6; Monocytes # (A) 0.6 k/uL (0-1.0); Monocytes % (A) 5 %; Neutrophils # (A) 8.4 k/uL (1.3-7.7); Neutrophils % (A) 78 %; Platelet Count 315 k/uL (150-450); Poikilocytosis Slight; RBC 3.41 m/uL (3.80-5.40); RDW 18.7 % (11.5-15.5); WBC 10.8 k/uL (3.8-10.6)
[2022-12-30 08:25] LABS: HGB 8.7 gm/dL (11.4-16.0)
[2022-12-30 08:35] LABS: African American GFR (CKD) 79 (>60 ml/min/1.73 sqM); Anion Gap 2 mmol/L; Blood Urea Nitrogen 19 mg/dL (7-17); Calcium 8.6 mg/dL (8.4-10.2); Carbon Dioxide 32 mmol/L (22-30); Chloride 102 mmol/L (98-107); Glucose 115 mg/dL (74-99); Non-African American GFR(CKD) 68 (>60 ml/min/1.73 sqM); Potassium 3.8 mmol/L (3.5-5.1); Sodium 136 mmol/L (137-145)
--- NOTE | 2022-12-30 11:23 | P.PN ---
Progress Note - Text Progress Note Date: 12/30/22 Orthopedics: History of present illness: Patient is a very pleasant 77-year-old female who is seen as an bedside for follow-up evaluation of her right hip. She is status post right hip intramedullary nail fixation for intertrochanteric hip fracture performed on 12/28/2022. She does have some pain in her right hip but states her pain has been adequately controlled. She is nonweightbearing on the right lower extremity. She continues to have a Greene catheter intact. They're planning for discharge to rehabilitation facility at the time of discharge. Authorization has not yet been approved. Nursing states patient is also undergoing further evaluation from a cardiac standpoint. She does have a watchman. Patient had been on Lovenox following recent pulmonary embolism diagnosis in October 2022. Lovenox has been stopped. Patient has been transitioned to heparin. She is also on aspirin 81 mg daily. She states they may be planning for further CT imaging. Patient also has significant anemia yesterday with a hemoglobin of 6.6. She did receive packed red blood cells. Currently, her hemoglobin is 8.7. Physical Exam Intramedullary [place] for Intertrochanteric Fracture: Status post surgical day number 2 Patient is examined lying in bed Patient is awake and alert, and oriented 3 Vital signs stable Good chest excursion with deep inspiration and expiration; patient currently on O2 nasal cannula No signs or symptoms of DVT; no calf pain Lower extremity cuffs in place bilaterally Dressing of the right hip is clean, dry, and intact; no erythema, purulence, or signs of infection Some pain with palpation over the surgical sites Full range of motion of ankles bilaterally Dorsiflexion, plantarflexion, and extensor hallucis longus positive sustained bilaterally Neurovascularly intact bilateral lower extremities Greene catheter intact Assessment: Status post right intramedullary nail fixation for left intertrochanteric hip fracture Status post fall Right hip pain Pulmonary embolism diagnosed in April 2022 currently on anticoagulation Anemia Atrial fibrillation Coronary artery disease Congestive heart failure COPD Placement of watchman device Plan: 1. Patient to remain nonweightbearing on the right lower extremity; patient may work with physical therapy to increase mobility and ambulation 2. Keep dressing over the right hip clean, dry, and intact 3. Discontinue Greene catheter when patient is able to increase mobility and ambulation 4. Continue pain control with oral [place] and IV Dilaudid as needed for pain control 5. Continue with anticoagulation therapy per recommendations of medicine and cardiology 6. Multiple medical providers will continue following the patient for her other medical diagnosis 7. We'll continue to follow the patient closely; depending on the patient's progress, we may plan for discharge as early 01/01/2023, to a rehabilitation facility if she receives insurance approval and she is cleared by multiple medical providers. 8. Patient can follow-up with Dr. David Fraire or Hansa Chi PA-C at [facility] in 2 weeks following discharge
--- NOTE | 2022-12-30 12:07 | P.PN ---
Subjective Progress Note Date: 12/30/22 HPI: 77-year-old with past medical history of chronic atrial fibrillation, status post recent watchman device placement in October 2022, coronary artery disease, congestive heart failure, COPD, underweight and failure to thrive. In October 2022 she was admitted for chest pain and shortness of breath. At that time she was found to have left-sided pulmonary embolism without evidence of RV strain. She was discharged home on Lovenox. This time she presented to ER after having a fall and severe right hip pain. Patient reports that she was standing in her kitchen trying to open Arabic when she tripped and had a fall. Initial workup shown displaced right hip fracture and she is being planned for orthopedic surgery and open reduction and internal fixation today by orthopedics. On admission her hemoglobin was 10.2, creatinine 1.21 12/29/22 Patient underwent right knee internal fixation and is postoperative day 2. She tolerated the procedure well. She is doing well hemodynamically. Her hemoglobin is 7.3 post surgery yesterday. Her hemoglobin on admission was 10. 12/30/22 Hgb dropped to 6.6 yesterday and she was transfused 1 unit PRBCs. Hgb this am 8.7. She reports her shortness of breath is better today. No chest pain or pressure. She has not had a bowel movement since admission. Denies any active bleeding. Minimal drainage on surgical dressing. She is complaining of back and hip pains. PHYSICAL EXAMINATION Vital signs reviewed. Head: Normocephalic. Eyes: Sclerae nonicteric. Neck: Brisk carotid upstroke, no jugular venous distention. Lungs: Clear to auscultation. Heart: Regular rate and rhythm, S1-S2, no S3, no murmur or rub. Abdomen: Soft nontender. Extremities: Significant pain and right hip with restricted movement Neurological: alert oriented x3 ASSESSMENT Mechanical fall, leading to right hip fracture Status post right hip internal fixation surgery Chronic atrial fibrillation Status post watchman procedure October 2022 Recent acute non-massive PE October 2022 COPD CAD CKD baseline creatinine 1.2 PLAN Due to recent watchman device placement, continue aspirin 81 mg daily. Hold lovenox given drop in hgb requiring transfusion. Will start heparin 5000 units q8h for DVT prophylaxis. Monitor hgb. May consider repeating CTA chest to eval PE and need for anticoagulation. Will follow. Patient was seen and examined in rounds with Dr. Bustamante, plan of care agreed upon. Objective - Vital Signs Vital signs: Vital Signs Temp 98.1 F 12/30/22 07:05 Pulse 97 12/30/22 07:05 Resp 18 12/30/22 07:05 BP 130/76 12/30/22 07:05 Pulse Ox 94 L 12/30/22 08:43 FiO2 Intake & Output 12/29/22 12/30/22 12/30/22 18:59 06:59 18:59 Intake Total 310 Output Total 600 950 700 Balance -290 -950 -700 Weight 42.638 kg Intake: Blood Product 310 Rc As-1 Unit 310 [id number] Output: Urine 600 950 700 Other: Voiding Method Indwelling Catheter Indwelling Catheter Indwelling Catheter # Voids 1 - Labs CBC & Chem 7: 12/30/22 07:35 12/30/22 07:35 Labs: Abnormal Lab Results - Last 24 Hours (Table) 12/29/22 12/30/22 12/30/22 Range/Units 09:54 07:35 07:35 WBC 10.8 H (3.8-10.6) k/uL RBC 3.41 L (3.80-5.40) m/uL Hgb 8.7 L D (11.4-16.0) gm/dL Hct 28.9 L (34.0-46.0) % MCHC 30.0 L (31.0-37.0) g/dL RDW 18.7 H (11.5-15.5) % Neutrophils # 8.4 H (1.3-7.7) k/uL Sodium 136 L (137-145) mmol/L Carbon Dioxide 32 H (22-30) mmol/L BUN 19 H (7-17) mg/dL Glucose 115 H (74-99) mg/dL Crossmatch See Detail
--- NOTE | 2022-12-30 13:17 | P.PN ---
Subjective Progress Note Date: 12/30/22 Hospital course: Patient is a pleasant 77-year-old female with a past medical history of paroxysmal atrial fibrillation and recent diagnosis of PE on anticoagulation with Lovenox, coronary artery disease, congestive heart failure, COPD, and multiple other comorbid conditions. She presented to the emergency department on 12/27/22 status post fall resulting in right hip pain. Patient was found to have a comminuted minimally displaced intertrochanteric right hip fracture. She was admitted under orthopedic surgery team and we were consulted for medical management throughout hospitalization. Physical exam: Patient seen and evaluated the bedside this morning. She reports feeling great this morning. She was resting comfortably in chair. General: non toxic, no distress, appears at stated age Derm: warm, dry. Postsurgical Dressing in place right hip, clean dry and intact. Head: atraumatic, normocephalic, symmetric Eyes: EOMI, no lid lag, anicteric sclera Mouth: no lip lesion, mucus membranes moist Cardiovascular: Irregularly irregular with systolic murmur, positive posterior tibial pulses bilaterally, Lungs: CTA bilateral, no rhonchi, no rales , no accessory muscle use Abdominal: soft, nontender to palpation, no guarding, no appreciable organomegaly Ext: no gross muscle atrophy, no edema, no contractures. Movement and sensation intact. Neuro: CN II-XI grossly intact, no focal neuro deficits Psych: Alert, oriented, appropriate affect Assessment and plan of care: Acute postoperative blood loss anemia, greater than expected finding but now stable. -Preoperative hemoglobin 10.2 with postoperative hemoglobin decreasing down to 6.6. Pt received one unit of PRBCs and currently hemoglobin is stable at 8.7. -Cardiology also following secondary to patient's known history of atrial fibrillation, recent watchman device placement, and recent diagnosis of PE.car diologist recommending discontinuation of Lasix and starting patient on heparin 5000 units subcu every 8 hours with repeat CTA of chest. -We will continue to monitor with repeat CBC and transfuse as indicated for hemoglobin less than 7. Status post closed reduction internal fixation of right hip with intramedullary nailing on 12/28/22 -Management per primary admitting orthopedic surgery team including pain management, wound/dressing care, weightbearing, and PT/OT. Hypertension Permanent A. fib Recently diagnosed pulmonary emboli Hypothyroidism Coronary artery disease COPD Chronic kidney disease stage III with baseline cr 1.2, stable -Continue home medication regimen with: Diltiazem 180 mg daily, Lopressor 50 mg daily, amiodarone 200 mg daily, Protonix 40 mg twice daily, Lasix 40 m BID, con tinue to hold Aldactone given mildly low BP, Synthroid 100 g daily, Folic acid 1 mg daily, and Doxepin 6 mg at night -Cardiology also following secondary to patient's known history of atrial fibrillation, recent watchman device placement, and recent diagnosis of PE.account support specialist recommending discontinuation of Lasix and starting patient on heparin 5000 units subcu every 8 hours with repeat CTA of chest. Imaging reviewed: -No new imaging for review. Data reviewed: -Morning labs reviewed. CBC showing leukocytosis with WBC count of 10.8, normocytic anemia with hemoglobin improving to 8.7 status post transfusion of 1 unit PRBCs. BMP showing mild hypercarbia with elevated bicarbonate of 32 ot herwise normal findings. -Vital signs reviewed. blood pressure 130/76, heart rate 97, respiratory rate 18, temp 98.1F, and SpO2 of 95% on room air. Thank you for allowing us to participate in the care of this pleasant patient. Do not hesitate to contact us with questions. [facility] all hours of the day at [phone] or via [employer] serve. Patient was seen independently by Nurse Pracitioner. This document was prepared using [email or web address] dictation software. Please allow for errors in company laundry worker, while rare they do occur. Osman Smith NP rendered care for this patient independently, reviewed the findings and plan as documented in the note above. I did not physically speak with or examine the patient on this date. Objective - Vital Signs Vital signs: Vital Signs Temp 98.1 F 12/30/22 07:05 Pulse 97 12/30/22 07:05 Resp 18 12/30/22 07:05 BP 130/76 12/30/22 07:05 Pulse Ox 95 12/30/22 07:05 FiO2 Intake & Output 12/29/22 12/30/22 12/30/22 18:59 06:59 18:59 Intake Total 310 Output Total 600 950 Balance -290 -950 Weight 42.638 kg Intake: Blood Product 310 Rc As-1 Unit 310 [id number] Output: Urine 600 950 Other: Voiding Method Indwelling Catheter Indwelling Catheter Indwelling Catheter # Voids 1 - Labs CBC & Chem 7: 01/01/23 06:40 01/01/23 06:40 Labs: Abnormal Lab Results - Last 24 Hours (Table) 12/29/22 12/29/22 12/30/22 Range/Units 06:11 09:54 07:35 WBC 12.3 H 10.8 H (3.8-10.6) k/uL RBC 2.76 L 3.41 L (3.80-5.40) m/uL Hgb 6.6 L* D 8.7 L D (11.4-16.0) gm/dL Hct 23.3 L 28.9 L (34.0-46.0) % MCH 24.1 L (25.0-35.0) pg MCHC 28.4 L 30.0 L (31.0-37.0) g/dL RDW 18.8 H 18.7 H (11.5-15.5) % Neutrophils # 8.4 H (1.3-7.7) k/uL Sodium (137-145) mmol/L Carbon Dioxide (22-30) mmol/L BUN (7-17) mg/dL Glucose (74-99) mg/dL Crossmatch See Detail 12/30/22 Range/Units 07:35 WBC (3.8-10.6) k/uL RBC (3.80-5.40) m/uL Hgb (11.4-16.0) gm/dL Hct (34.0-46.0) % MCH (25.0-35.0) pg MCHC (31.0-37.0) g/dL RDW (11.5-15.5) % Neutrophils # (1.3-7.7) k/uL Sodium 136 L (137-145) mmol/L Carbon Dioxide 32 H (22-30) mmol/L BUN 19 H (7-17) mg/dL Glucose 115 H (74-99) mg/dL Crossmatch
[2022-12-30] MEDS: SODIUM CHLORIDE 0.9% 1,000 ML IV SCH (13:34)
[2022-12-30] MEDS: HEPARIN SODIUM,PORCINE 5,000 UNIT/ML 1 ML VIAL SQ SCH (17:46)
[2022-12-30] MEDS: DOXEPIN HCL 6 MG PO SCH (22:14)
[2022-12-30] MEDS: SENNOSIDES-DOCUSATE SODIUM 1 EACH TAB PO SCH (22:15)
[2022-12-31] MEDS: HEPARIN SODIUM,PORCINE 5,000 UNIT/ML 1 ML VIAL SQ SCH ×4 (00:17→23:11)
[2022-12-31] MEDS: HYDROcodone/APAP 7.5-325MG 1 EACH TAB PO PRN ×3 (00:18→20:26)
[2022-12-31] MEDS: LEVOTHYROXINE 100 MCG TAB PO SCH (06:21)
[2022-12-31] MEDS: FUROSEMIDE 40 MG TAB PO SCH ×2 (06:21→16:09)
[2022-12-31] MEDS: SODIUM CHLORIDE 0.9% 1,000 ML IV SCH (06:21)
[2022-12-31] MEDS: hydrOXYzine pamoate 25 MG CAP PO PRN ×3 (06:26→20:27)
[2022-12-31 07:57] LABS: Anisocytosis Slight; Basophils % (A) 0 %; Eosinophils # (A) 0.2 k/uL (0-0.7); Eosinophils % (A) 2 %; HCT 24.8 % (34.0-46.0); HGB 7.5 gm/dL (11.4-16.0); Hypochromasia Marked; Lymphocytes # (A) 1.4 k/uL (1.0-4.8); Lymphocytes % (A) 15 %; MCH 25.6 pg (25.0-35.0); MCHC 30.1 g/dL (31.0-37.0); Mean Platelet Volume 8.6; Monocytes # (A) 0.5 k/uL (0-1.0); Monocytes % (A) 5 %; Neutrophils % (A) 75 %; Platelet Count 296 k/uL (150-450); Poikilocytosis Slight; RBC 2.92 m/uL (3.80-5.40); WBC 9.3 k/uL (3.8-10.6)
[2022-12-31] MEDS: LACTOBACILLUS ACIDOPHILUS/PECT 1 EACH CAPSULE PO SCH (09:58)
[2022-12-31] MEDS: POTASSIUM BICARBONATE/CIT AC 20 MEQ TABLET.EFF PO SCH ×2 (09:58→20:29)
[2022-12-31] MEDS: FOLIC ACID 1 MG TAB PO SCH (09:58)
[2022-12-31] MEDS: AMIODARONE 200 MG TAB PO SCH (09:59)
[2022-12-31] MEDS: SENNOSIDES 8.6 MG TAB PO SCH (09:59)
[2022-12-31] MEDS: ASPIRIN 81 MG PO SCH (09:59)
[2022-12-31] MEDS: METOPROLOL TARTRATE 50 MG TAB PO SCH (09:59)
[2022-12-31] MEDS: DILTIAZEM CD 180 MG CAP.ER.24H PO SCH (09:59)
[2022-12-31] MEDS: PANTOPRAZOLE 40 MG TABLET PO SCH ×2 (09:59→20:28)
[2022-12-31] MEDS: HYDROmorphone 0.5 MG/0.5 ML SYRINGE IVP PRN ×3 (10:30→23:11)
--- NOTE | 2022-12-31 10:45 | P.PN ---
Progress Note - Text Progress Note Date: 12/31/22 Orthopedics: History of present illness: Patient is a very pleasant 77-year-old female who is seen as an bedside for follow-up evaluation of her right hip. She has not had any change in her symptoms since being seen and examined yesterday. She is status post right hip intramedullary nail fixation for intertrochanteric hip fracture performed on 12/28/2022. She does have some pain in her right hip but states her pain has been adequately controlled. She is nonweightbearing on the right lower extremity. She continues to have a Greene catheter intact. They're planning for discharge to rehabilitation facility at the time of discharge. Authorization has not yet been approved. Her hoping for discharge Sunday if cleared by cardiology and medicine. Nursing states patient is also undergoing further evaluation from a cardiac standpoint. She does have a watchman. Patient had been on Lovenox following recent pulmonary embolism diagnosis in October 2022. Lovenox has been stopped. Patient has been transitioned to heparin. She is also on aspirin 81 mg daily. Dictation states there may be consideration for repeat CTA of the chest to further evaluate pulmonary embolism and need for anticoagulation. Patient also has significant anemia previously with a hemoglobin of 6.6. She did receive packed red blood cells. Currently, her hemoglobin was 8.7 yesterday. Her hemoglobin currently is 7.5. Physical Exam Intramedullary Rodding for Intertrochanteric Fracture: Status post surgical day number 3 Patient is examined lying in bed Patient is awake and alert, and oriented 3 Vital signs stable Good chest excursion with deep inspiration and expiration; patient currently on O2 nasal cannula No signs or symptoms of DVT; no calf pain Lower extremity cuffs in place bilaterally Dressing of the right hip is clean, dry, and intact; no erythema, purulence, or signs of infection Some pain with palpation over the surgical sites Full range of motion of ankles bilaterally Dorsiflexion, plantarflexion, and extensor hallucis longus positive sustained bilaterally Neurovascularly intact bilateral lower extremities Greene catheter intact Assessment: Status post right intramedullary nail fixation for left intertrochanteric hip fracture Status post fall Right hip pain Pulmonary embolism diagnosed in April 2022 currently on anticoagulation Anemia Atrial fibrillation Coronary artery disease Congestive heart failure COPD Placement of watchman device Plan: 1. Patient to remain nonweightbearing on the right lower extremity; patient may work with physical therapy to increase mobility and ambulation 2. Keep dressing over the right hip clean, dry, and intact 3. Discontinue Greene catheter when patient is able to increase mobility and ambulation 4. Continue pain control with oral Christine and IV Dilaudid as needed for pain control 5. Continue with anticoagulation therapy per recommendations of medicine and cardiology 6. Multiple medical providers will continue following the patient for her other medical diagnosis 7. We'll continue to follow the patient closely; depending on the patient's progress, we may plan for discharge as early 01/01/2023, to a rehabilitation facility if she receives insurance approval and she is cleared by multiple medical providers. 8. Patient can follow-up with Dr. David Fraire or Hansa Chi PA-C at [facility] in 2 weeks following discharge
--- NOTE | 2022-12-31 11:53 | P.PN ---
Subjective Progress Note Date: 12/31/22 HPI: 77-year-old with past medical history of chronic atrial fibrillation, status post recent watchman device placement in October 2022, coronary artery disease, congestive heart failure, COPD, underweight and failure to thrive. In October 2022 she was admitted for chest pain and shortness of breath. At that time she was found to have left-sided pulmonary embolism without evidence of RV strain. She was discharged home on Lovenox. This time she presented to ER after having a fall and severe right hip pain. Patient reports that she was standing in her kitchen trying to open Sami when she tripped and had a fall. Initial workup shown displaced right hip fracture and she is being planned for orthopedic surgery and open reduction and internal fixation today by orthopedics. On admission her hemoglobin was 10.2, creatinine 1.21 12/29/22 Patient underwent right knee internal fixation and is postoperative day 2. She tolerated the procedure well. She is doing well hemodynamically. Her hemoglobin is 7.3 post surgery yesterday. Her hemoglobin on admission was 10. 12/30/22 Hgb dropped to 6.6 yesterday and she was transfused 1 unit PRBCs. Hgb this am 8.7. She reports her shortness of breath is better today. No chest pain or pressure. She has not had a bowel movement since admission. Denies any active bleeding. Minimal drainage on surgical dressing. She is complaining of back and hip pains. 12/31/22 She is feeling some shortness of breath. Hgb 7.5 this am. Continued back and leg pains. No BM. No active signs of bleeding. PHYSICAL EXAMINATION Vital signs reviewed. Head: Normocephalic. Eyes: Sclerae nonicteric. Neck: Brisk carotid upstroke, no jugular venous distention. Lungs: Clear to auscultation. Heart: Regular rate and rhythm, S1-S2, no S3, no murmur or rub. Abdomen: Soft nontender. Extremities: Significant pain and right hip with restricted movement Neurological: alert oriented x3 ASSESSMENT Mechanical fall, leading to right hip fracture Status post right hip internal fixation surgery Chronic atrial fibrillation Status post watchman procedure October 2022 Recent acute non-massive PE October 2022 COPD CAD CKD baseline creatinine 1.2 PLAN Due to recent watchman device placement, continue aspirin 81 mg daily. Hold therapeutic anticoagulation given significant anemia. Continue heparin 5000 units q8h for DVT prophylaxis. Monitor hgb. Will repeat CTA chest to eval PE and need for continued anticoagulation. Will follow. Patient was seen and examined in rounds with Dr. Bustamante, plan of care agreed upon. Objective - Vital Signs Vital signs: Vital Signs Temp 99.0 F 12/31/22 08:00 Pulse 75 12/31/22 08:00 Resp 18 12/31/22 08:00 BP 123/65 12/31/22 08:00 Pulse Ox 96 12/31/22 08:00 FiO2 Intake & Output 12/30/22 12/31/22 12/31/22 18:59 06:59 18:59 Output Total 700 800 Balance -700 -800 Output: Urine 700 800 Other: Voiding Method Indwelling Catheter Indwelling Catheter Indwelling Catheter # Voids 1 - Labs CBC & Chem 7: 12/31/22 06:51 12/30/22 07:35 Labs: Abnormal Lab Results - Last 24 Hours (Table) 12/31/22 Range/Units 06:51 RBC 2.92 L (3.80-5.40) m/uL Hgb 7.5 L (11.4-16.0) gm/dL Hct 24.8 L (34.0-46.0) % MCHC 30.1 L (31.0-37.0) g/dL RDW 19.0 H (11.5-15.5) %
--- NOTE | 2022-12-31 13:38 | CT ---
CT CHEST FOR PULMONARY EMBOLISM. EXAMINATION TYPE: CT angio chest DATE OF EXAM: 12/31/2022 INDICATION: pe CT DLP: 161.2 mGycm, Automated exposure control for dose reduction was used. CONTRAST: Patient injected with 60 mL of Isovue 370. COMPARISON: None TECHNIQUE: CT of the chest is performed on a spiral scan at 2 mm thick sections. Study is performed with intravenous contrast timed for evaluation for pulmonary embolism. This will limit additional po rtions of the evaluation. 3-D MIP images reconstructed by the technologist are reviewed on the compu ter in the coronal and sagittal planes. FINDINGS: No persistent filling defects are evident to suggest an acute pulmonary embolism. No mediastinal or hilar adenopathy enlarged by CT criteria is evident. The ascending aorta diameter at the level of the main pulmonary artery is 3.8 cm. The main pulmonary artery diameter at the bifur cation is 2.9 cm. There is a small left pleural effusion with minimal adjacent compressive atelectasis. Lung nunez oth erwise appear clear. Limited CT section through the upper abdomen are unremarkable. IMPRESSION: 1. No acute pulmonary embolism. 2. Minimal left pleural effusion with adjacent compressive atelectasis.
--- NOTE | 2022-12-31 16:14 | P.PN ---
Subjective Progress Note Date: 12/31/22 Hospital course: Patient is a pleasant 77-year-old female with a past medical history of paroxysmal atrial fibrillation and recent diagnosis of PE on anticoagulation with Lovenox, coronary artery disease, congestive heart failure, COPD, and multiple other comorbid conditions. She presented to the emergency department on 12/27/22 status post fall resulting in right hip pain. Patient was found to have a comminuted minimally displaced intertrochanteric right hip fracture. She was admitted under orthopedic surgery team and we were consulted for medical management throughout hospitalization. Physical exam: Patient seen and evaluated the bedside this morning. She was resting com fortably in bed. Greene catheter remains in place. Discussed with patient and patient's daughter at bedside importance of discontinuation of Greene catheter. General: non toxic, no distress, appears at stated age Derm: warm, dry. Postsurgical Dressing in place right hip, clean dry and intact. Head: atraumatic, normocephalic, symmetric Eyes: EOMI, no lid lag, anicteric sclera Mouth: no lip lesion, mucus membranes moist Cardiovascular: Irregularly irregular with systolic murmur, positive posterior tibial pulses bilaterally, Lungs: CTA bilateral, no rhonchi, no rales , no accessory muscle use Abdominal: soft, nontender to palpation, no guarding, no appreciable organomegaly Ext: no gross muscle atrophy, no edema, no contractures. Movement and sensation intact. Neuro: CN II-XI grossly intact, no focal neuro deficits Psych: Alert, oriented, appropriate affect Assessment and plan of care: Acute postoperative blood loss anemia, greater than expected finding -Preoperative hemoglobin 10.2 with postoperative hemoglobin decreasing down to 6.6. Pt received one unit of PRBCs and currently hemoglobin is 7.5 -Cardiology also following secondary to patient's known history of atrial fibrillation, recent watchman device placement, and recent diagnosis of PE.nibbler operator recommending discontinuation of Lasix and starting patient on heparin 5000 units subcu every 8 hours with repeat CTA of chest. -Patient undergo CTA of chest later today to evaluate for need for anticoagulation and previous findings PE. -We will continue to monitor with repeat CBC and transfuse as indicated for hemoglobin less than 7. Status post closed reduction internal fixation of right hip with intramedullary nailing on 12/28/22 -Management per primary admitting orthopedic surgery team including pain management, wound/dressing care, weightbearing, and PT/OT. -Patient encouraged to get out of bed with all meals. Orders placed for bedside commode immovable of Greene catheter Hypertension Permanent A. fib Recently diagnosed pulmonary emboli Hypothyroidism Coronary artery disease COPD Chronic kidney disease stage III with baseline cr 1.2, stable -Continue home medication regimen with: Diltiazem 180 mg daily, Lopressor 50 mg daily, amiodarone 200 mg daily, Protonix 40 mg twice daily, Lasix 40 m BID, continue to hold Aldactone given mildly low BP, Synthroid 100 g daily, Folic acid 1 mg daily, and Doxepin 6 mg at night -Cardiology also following secondary to patient's known history of atrial fibrillation, recent watchman device placement, and recent diagnosis of PE.nibbler operator recommending discontinuation of Lasix and starting patient on heparin 5000 units subcu every 8 hours with repeat CTA of chest. Imaging reviewed: -Will follow up on CTA results after completion. Data reviewed: -Morning labs reviewed. CBC showing resolution of previous noted leukocytosis with WBC count of 9.3 and persistent and slightly worsening normocytic anemia with hemoglobin of 7.5. -Vital signs reviewed. blood pressure 120/67, heart rate 65, respiratory rate 15, temp 99.3F, SpO2 100% on room air. Thank you for allowing us to participate in the care of this pleasant patient. Do not hesitate to contact us with questions. Someone can be reached from the [facility] hospitalist group all hours of the day at [phone] or via perfect serve. Patient was seen independently by Nurse Pracitioner. This document was prepared using [employer] dictation software. Please allow for errors in volunteer services coordinator, while rare they do occur. Osman Smith NP rendered care for this patient independently, reviewed the findings and plan as documented in the note above. I did not physically speak with or examine the patient on this date. Objective - Vital Signs Vital signs: Vital Signs Temp 98.4 F 12/31/22 00:40 Pulse 84 12/31/22 00:40 Resp 18 12/31/22 00:40 BP 111/56 12/31/22 00:40 Pulse Ox 94 L 12/31/22 00:40 FiO2 Intake & Output 12/30/22 12/31/22 12/31/22 18:59 06:59 18:59 Output Total 700 800 Balance -700 -800 Output: Urine 700 800 Other: Voiding Method Indwelling Catheter Indwelling Catheter Indwelling Catheter # Voids 1 - Labs CBC & Chem 7: 01/01/23 06:40 01/01/23 06:40 Labs: Abnormal Lab Results - Last 24 Hours (Table) 12/31/22 Range/Units 06:51 RBC 2.92 L (3.80-5.40) m/uL Hgb 7.5 L (11.4-16.0) gm/dL Hct 24.8 L (34.0-46.0) % MCHC 30.1 L (31.0-37.0) g/dL RDW 19.0 H (11.5-15.5) %
[2022-12-31] MEDS: SENNOSIDES-DOCUSATE SODIUM 1 EACH TAB PO SCH (20:28)
[2022-12-31] MEDS: DOXEPIN HCL 6 MG PO SCH (20:32)
[2023-01-01] MEDS: SODIUM CHLORIDE 0.9% 1,000 ML IV SCH ×2 (00:27→13:20)
[2023-01-01] MEDS: LEVOTHYROXINE 100 MCG TAB PO SCH (05:51)
[2023-01-01] MEDS: FUROSEMIDE 40 MG TAB PO SCH (05:51)
[2023-01-01] MEDS: hydrOXYzine pamoate 25 MG CAP PO PRN ×3 (05:51→15:27)
[2023-01-01] MEDS: HYDROcodone/APAP 7.5-325MG 1 EACH TAB PO PRN ×3 (05:52→15:27)
[2023-01-01] MEDS: PANTOPRAZOLE 40 MG TABLET PO SCH (08:17)
[2023-01-01] MEDS: ASPIRIN 81 MG PO SCH (08:18)
[2023-01-01] MEDS: METOPROLOL TARTRATE 50 MG TAB PO SCH (08:18)
[2023-01-01] MEDS: LACTOBACILLUS ACIDOPHILUS/PECT 1 EACH CAPSULE PO SCH (08:18)
[2023-01-01] MEDS: HEPARIN SODIUM,PORCINE 5,000 UNIT/ML 1 ML VIAL SQ SCH (08:18)
[2023-01-01] MEDS: DILTIAZEM CD 180 MG CAP.ER.24H PO SCH (08:18)
[2023-01-01] MEDS: FOLIC ACID 1 MG TAB PO SCH (08:18)
[2023-01-01] MEDS: AMIODARONE 200 MG TAB PO SCH (08:18)
[2023-01-01] MEDS: HYDROmorphone 0.5 MG/0.5 ML SYRINGE IVP PRN (08:19)
[2023-01-01] MEDS: POTASSIUM BICARBONATE/CIT AC 20 MEQ TABLET.EFF PO SCH (08:19)
[2023-01-01] MEDS: SENNOSIDES 8.6 MG TAB PO SCH (10:34)
[2023-01-01] MEDS: ONDANSETRON 4 MG/2 ML VIAL IVP PRN (10:51)
[2023-01-01 10:55] LABS: HCT 27.5 % (37.2-46.3); HGB 7.8 d/dL (12.0-15.0); MCH 24.5 pg (27.0-32.0); MCHC 28.4 d/dL (32.0-37.0); MCV 86.5 FL (80.0-97.0); Mean Platelet Volume 11.5 FL (9.5-12.2); NRBC Per 100 WBC 0 X 10*3/uL (0.00-0.01); Platelet Count 388 X 10*3/uL (140-440); RBC 3.18 X 10*6/uL (4.10-5.20); RDW 20.6 % (11.5-14.5); WBC 8.06 X 10*3/uL (4.50-10.00)
[2023-01-01 11:10] LABS: Magnesium 2.3 mg/dL (1.5-2.4)
[2023-01-01 11:21] LABS: ALT 58 U/L (8-44); AST 38 U/L (13-35); Albumin 3.7 d/dL (3.8-4.9); Albumin/Globulin Ratio 1.48 Ratio (1.60-3.17); Alkaline Phosphatase 167 U/L (41-126); Blood Urea Nitrogen 23.1 mg/dL (9.0-27.0); Calcium 9.3 mg/dL (8.7-10.3); Chloride 95 mmol/L (96-109); Globulin 2.5 d/dL (1.6-3.3); Glucose 126 mg/dL (70-110); Potassium 4.4 mmol/L (3.5-5.5); Sodium 138 mmol/L (135-145); Total Bilirubin 0.4 mg/dL (0.3-1.2); Total Protein 6.2 d/dL (6.2-8.2)
--- NOTE | 2023-01-01 11:24 | P.PN ---
Subjective HISTORY OF PRESENT ILLNESS: 77-year-old with past medical history of chronic atrial fibrillation, status post recent watchman device placement in October 2022, coronary artery disease, congestive heart failure, COPD, underweight and failure to thrive. In October 2022 she was admitted for chest pain and shortness of breath. At that time she was found to have left-sided pulmonary embolism without evidence of RV strain. She was discharged home on Lovenox. This time she presented to ER after having a fall and severe right hip pain. Patient reports that she was standing in her kitchen trying to open Romansh when she tripped and had a fall. Initial workup shown displaced right hip fracture and she is being planned for orthopedic surgery and open reduction and internal fixation today by orthopedics. On admission her hemoglobin was 10.2, creatinine 1.21 12/29/22 Patient underwent right knee internal fixation and is postoperative day 2. She tolerated the procedure well. She is doing well hemodynamically. Her hemoglobin is 7.3 post surgery yesterday. Her hemoglobin on admission was 10. 12/30/22 Hgb dropped to 6.6 yesterday and she was transfused 1 unit PRBCs. Hgb this am 8.7. She reports her shortness of breath is better today. No chest pain or pressure. She has not had a bowel movement since admission. Denies any active bleeding. Minimal drainage on surgical dressing. She is complaining of back and hip pains. 12/31/22 She is feeling some shortness of breath. Hgb 7.5 this am. Continued back and leg pains. No BM. No active signs of bleeding. 01/01/2023 Patient examined this morning at the bedside. Patient denies chest pain or p ressure. She denies shortness of breath. She does report having some surgical pain in her right hip. She denies dizziness or lightheadedness. Patient underwent chest CT yesterday which was negative for pulmonary embolism. She remains on aspirin secondary to recent watchman device. Hemoglobin today 7.8. PHYSICAL EXAM: VITAL SIGNS: Reviewed. GENERAL: Well-developed in no acute distress. NECK: Supple. No JVD or thyromegaly LUNGS: Respirations even and unlabored. Lungs essentially clear to auscultation bilaterally. HEART: Irregular rate and rhythm. S1 and S2 heard. Systolic murmur noted. EXTREMITIES: Normal range of motion. No clubbing or cyanosis. Peripheral pu lses intact. No lower extremity edema ASSESSMENT: Mechanical fall, leading to right hip fracture Status post right hip internal fixation surgery Acute blood loss anemia Chronic atrial fibrillation Status post watchman procedure October 2022 Recent acute non-massive PE October 2022, repeat CTA negative for pulmonary embolism COPD Coronary artery disease Chronic kidney disease PLAN: Continue current cardiac medications Continue aspirin 81 mg daily secondary to recent watchman device. Repeat CTA negative for PE. Would recommend discontinuing anticoagulation at discharge. Patient is stable for discharge to [facility] from a cardiac standpoint We will sign off. Please reconsult if needed. Nurse practitioner note has been reviewed by physician. Signing provider agrees with the documented findings, assessment, and plan of care. Objective - Vital Signs Vital signs: Vital Signs Temp 99.1 F 01/01/23 06:51 Pulse 66 01/01/23 11:01 Resp 18 01/01/23 06:51 BP 127/55 01/01/23 06:51 Pulse Ox 96 01/01/23 08:58 FiO2 Intake & Output 12/31/22 01/01/23 01/01/23 18:59 06:59 18:59 Intake Total 1300 Output Total 1300 450 Balance 0 -450 Intake: Oral 1300 Output: Urine 1300 450 Emesis 0 Other: Voiding Method Indwelling Catheter Bedside Commode # Voids 1 1 # Bowel Movements 1 1 # Emeses 0 - Labs CBC & Chem 7: 01/01/23 06:40 12/30/22 07:35 Labs: Abnormal Lab Results - Last 24 Hours (Table) 01/01/23 Range/Units 06:40 RBC 3.18 L (4.10-5.20) X 10*6/uL Hgb 7.8 L (12.0-15.0) d/dL Hct 27.5 L (37.2-46.3) % MCH 24.5 L (27.0-32.0) pg MCHC 28.4 L (32.0-37.0) d/dL RDW 20.6 H (11.5-14.5) %
--- NOTE | 2023-01-01 12:20 | P.PN ---
Subjective Progress Note Date: 01/01/23 Hospital course: Patient is a pleasant 77-year-old female with a past medical history of paroxysmal atrial fibrillation and recent diagnosis of PE on anticoagulation with Lovenox, coronary artery disease, congestive heart failure, COPD, and multiple other comorbid conditions. She presented to the emergency department on 12/27/22 status post fall resulting in right hip pain. Patient was found to have a comminuted minimally displaced intertrochanteric right hip fracture. She was admitted under orthopedic surgery team and we were consulted for medical management throughout hospitalization. Physical exam: Patient seen and evaluated the bedside this morning. She was resting com fortably in bed and currently denies having any needs, questions, complaints, or concerns. Orthopedic surgery planning to discharge patient to [facility] for rehab later today. patient has been urinating without any difficulties and bedside commode. General: non toxic, no distress, appears at stated age Derm: warm, dry. Postsurgical Dressing in place right hip, clean dry and intact. Head: atraumatic, normocephalic, symmetric Eyes: EOMI, no lid lag, anicteric sclera Mouth: no lip lesion, mucus membranes moist Cardiovascular: Irregularly irregular with systolic murmur, positive posterior tibial pulses bilaterally, Lungs: CTA bilateral, no rhonchi, no rales , no accessory muscle use Abdominal: soft, nontender to palpation, no guarding, no appreciable organomegaly Ext: no gross muscle atrophy, no edema, no contractures. Movement and sensation intact. Neuro: CN II-XI grossly intact, no focal neuro deficits Psych: Alert, oriented, appropriate affect Assessment and plan of care: Acute postoperative blood loss anemia, greater than expected finding -Preoperative hemoglobin 10.2 with postoperative hemoglobin decreasing down to 6.6. Pt received one unit of PRBCs and currently hemoglobin is 7.8 -Cardiology following, recommending discontinuation of anticoagulation as CTA negative for PE. -Orthopedic surgery stating patient needs DVT prophylaxis for the next 30 days. -From medical perspective it is strongly recommended that if orthopedic surgery team places patient back on anticoagulation patient will need repeat CBC in 3 days to ensure she continues to have stable hemoglobin levels also recommending continuation of PPI with Protonix 40 mEq twice daily. -Orthopedic surgery discharging patient at this time, medically patient is stable recommend repeat CBC in 3 days to ensure stable hemoglobin levels. -Repeat CT of chest was negative for PE. Status post closed reduction internal fixation of right hip with intramedullary nailing on 12/28/22 -Management per primary admitting orthopedic surgery team including pain management, wound/dressing care, weightbearing, and PT/OT. -Patient encouraged to get out of bed with all meals. Orders placed for bedside commode immovable of Greene catheter Hypertension Permanent A. 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 Imaging reviewed: -CTA was negative showing no signs of PE. Data reviewed: -Morning labs reviewed. CBC Showing stable anemia with hemoglobin of 7.8. BMP showing slightly elevated bicarbonate of 32, normal renal function with stable creatinine of 1.0 and slightly elevated liver enzymes with AST of 38, ALT 58, and alkaline phosphatase of 167. -Vital signs reviewed. blood pressure 127/55, heart rate 69, respiratory rate 18, temp 99.1F, and SpO2 of 98% on room air. Thank you for allowing us to participate in the care of this pleasant patient. Do not hesitate to contact us with questions. Someone can be reached from the [facility] hospitalist group all hours of the day at [phone] or via [employer]. Patient was seen independently by Nurse Pracitioner. This document was prepared using [employer] dictation software. Please allow for errors in sponge hooker, while rare they do occur. Osman Smith NP rendered care for this patient independently, reviewed the findings and plan as documented in the note above. I did not physically speak with or examine the patient on this date. Objective - Vital Signs Vital signs: Vital Signs Temp 99.1 F 01/01/23 06:51 Pulse 69 01/01/23 06:51 Resp 18 01/01/23 06:51 BP 127/55 01/01/23 06:51 Pulse Ox 96 01/01/23 08:58 FiO2 Intake & Output 12/31/22 01/01/23 01/01/23 18:59 06:59 18:59 Intake Total 1300 Output Total 1300 450 Balance 0 -450 Intake: Oral 1300 Output: Urine 1300 450 Emesis 0 Other: Voiding Method Indwelling Catheter Bedside Commode # Voids 1 1 # Bowel Movements 1 1 # Emeses 0 - Labs CBC & Chem 7: 01/01/23 06:40 01/01/23 06:40
[2023-01-01 13:26] VITALS: BP 92/53; PULSE 61; RESP 16; TEMP 96.8
--- NOTE | 2023-01-01 16:08 | P.DS ---
Providers Date of admission: 12/27/22 01:57 Expected date of discharge: 01/01/23 Attending physician: David Fraire Consults: 12/27/22 01:57 Consult Physician Routine Consulting Provider: Edmund Adams Consult Reason/Comments: [facility] Do you want consulting provider notified?: Yes Primary care physician: Bunny Mendes MD - Discharge Diagnosis(es) (1) Closed right hip fracture Current Visit: Yes Status: Acute (2) Fall Current Visit: Yes Status: Acute Hospital Course: This is a 77-year-old female who is admitted for management of a right hip fracture after a fall at home. The patient presented for evaluation in the em ergency room where x-rays revealed right hip fracture. After discussion and consideration patient elects to proceed with closed reduction and intramedullary nailing of the right hip. The patient is seen preoperatively by Dr. Fraire and cleared for surgery by internal medicine. Patient is admitted to [facility] on 12/27/2022 and closed reduction and intramedullary nailing of the right hip is performed on 12/28/2022. The procedure is performed without complication or sequelae. The patient is doing well postoperatively. Labs and vital signs are stable on day of discharge. Patient was on Lovenox for a PE that was present prior to this admission and per internal medicine Lovenox is continued for postoperative DVT prophylaxis. On day of discharge patient's hip incision is healing well. There is minimal erythema. There is no drainage noted at this time. There is minimal soft tissue swelling to the hip and thigh. Patient has full foot and ankle motion without difficulty or pain. Neurovascular status to the right lower extremity is intact. Patient is discharged to rehab in good condition. Please see med rec for accurate list of home medications. Patient Condition at Discharge: Serious Plan - Discharge Summary Discharge Rx Participant: No New Discharge Prescriptions: New Sennosides-Docusate Sodium [Senokot-S] 2 each PO HS tab HYDROcodone/APAP 7.5-325MG [[place] 7.5-325] 1 - 2 tab PO Q6HR PRN #32 tab PRN Reason: Pain Enoxaparin [Lovenox] 60 mg SQ DAILY each Magnesium Hydroxide [Milk of Magnesia] 2,400 mg PO DAILY PRN ml PRN Reason: Constipation Continue L.acidoph,Paracasei, B.lactis [Probiotic] 1 cap PO DAILY Metoprolol Tartrate [Lopressor] 50 mg PO DAILY Amiodarone [Cordarone] 200 mg PO DAILY Ondansetron [Zofran] 4 mg PO TID PRN PRN Reason: Nausea And Vomiting Triamcinolone 0.5% Cream [Kenalog 0.5% Cream] 1 applic TOPICAL DAILY Acetaminophen [Tylenol Extra Strength] 1,000 mg PO QID PRN PRN Reason: Fever And/ Or Pain Sennosides [Senokot] 8.6 mg PO DAILY Mupirocin 2% Oint [Bactroban 2% Oint] 1 applic TOPICAL BID Doxepin HCl 6 mg PO HS dilTIAZem HCL [dilTIAZem HCL 24Hr ER (CD)] 180 mg PO DAILY #30 cap Folic Acid 1 mg PO DAILY #30 tab Furosemide [Lasix] 40 mg PO BID@0700,1600 Spironolactone [Aldactone] 25 mg PO DAILY Pantoprazole [Protonix] 40 mg PO BID Potassium Chloride ER [K-Dur 10] 40 meq PO BID hydrOXYzine pamoate [Vistaril] 25 mg PO Q6H PRN PRN Reason: Anxiety Aspirin EC [Ecotrin Low Dose] 81 mg PO DAILY Levothyroxine Sodium [Synthroid] 100 mcg PO DAILY Discontinued Enoxaparin [Lovenox] 40 mg SQ DAILY Butalb/Acetaminophen/Caffeine [Fioricet 50-300-40 mg Capsule] 1 cap PO BID PRN PRN Reason: Migraine Headache Clopidogrel [Plavix] 75 mg PO DAILY HYDROcodone/APAP 5-325MG [[place] 5-325] 1 tab PO Q4H PRN PRN Reason: Breakthrough Pain oxyCODONE HCL [OxyCONTIN] 20 mg PO BID-W/MEALS Discharge Medication List L.acidoph,Paracasei, B.lactis [Probiotic] 1 cap PO DAILY 02/06/20 [History] Metoprolol Tartrate [Lopressor] 50 mg PO DAILY 10/05/20 [History] Spironolactone [Aldactone] 25 mg PO DAILY 08/04/21 [History] Pantoprazole [Protonix] 40 mg PO BID 12/27/21 [History] Amiodarone [Cordarone] 200 mg PO DAILY 02/03/22 [History] Potassium Chloride ER [K-Dur 10] 40 meq PO BID 02/03/22 [History] Acetaminophen [Tylenol Extra Strength] 1,000 mg PO QID PRN 09/20/22 [History] Mupirocin 2% Oint [Bactroban 2% Oint] 1 applic TOPICAL BID 09/20/22 [History] Ondansetron [Zofran] 4 mg PO TID PRN 09/20/22 [History] Sennosides [Senokot] 8.6 mg PO DAILY 09/20/22 [History] Triamcinolone 0.5% Cream [Kenalog 0.5% Cream] 1 applic TOPICAL DAILY 09/20/22 [History] hydrOXYzine pamoate [Vistaril] 25 mg PO Q6H PRN 09/20/22 [History] Aspirin EC [Ecotrin Low Dose] 81 mg PO DAILY 11/13/22 [History] Doxepin HCl 6 mg PO HS 11/13/22 [History] Levothyroxine Sodium [Synthroid] 100 mcg PO DAILY 11/13/22 [History] Folic Acid 1 mg PO DAILY #30 tab 11/15/22 [Rx] dilTIAZem HCL [dilTIAZem HCL 24Hr ER (CD)] 180 mg PO DAILY #30 cap 11/15/22 [Rx] Furosemide [Lasix] 40 mg PO BID@0700,1600 12/27/22 [History] HYDROcodone/APAP 7.5-325MG [[place] 7.5-325] 1 - 2 tab PO Q6HR PRN #32 tab 12/29/22 [Rx] Enoxaparin [Lovenox] 60 mg SQ DAILY each 12/30/22 [Rx] Magnesium Hydroxide [Milk of Magnesia] 2,400 mg PO DAILY PRN ml 12/30/22 [Rx] Sennosides-Docusate Sodium [Senokot-S] 2 each PO HS tab 12/30/22 [Rx] Follow up Appointment(s)/Referral(s): Ellen Penn MD [STAFF PHYSICIAN] - 1 Week Wilmer Black [NON-STAFF] - As Needed Bunny Mendes MD [Primary Care Provider] - 1-2 Days David Fraire DO [Doctor of Osteopathic Medicine] - 01/22/23 9:30 am Ambulatory/Diagnostic Orders: Complete Blood Count w/diff [LAB.AMB] Time Frame: 3 Days, Location: None Selected Activity/Diet/Wound Care/Special Instructions: May bear weight as tolerated with walker on the right lower extremity. Keep dressing intact one week. May shower with dressing intact. Please follow up with [facility] in 2 weeks and call with any questions or concerns, . Discharge Disposition: TRANSFER TO SNF/ECF
== END 2023-01-01 15:37 | DRG 481 ==
LOC: EC 23:40 → 4SSUR 12-27 01:57
PROVIDERS: ADMIT Orthopaedic Surgery; ATTEND Orthopaedic Surgery
PROC: 0QS636Z Reposition Right Upper Femur with Intramedullary Internal Fixation Device, Percutaneous Approach (ICD-10-PCS; principal; 2022-12-28)
PROC: 30233N1 Transfusion of Nonautologous Red Blood Cells into Peripheral Vein, Percutaneous Approach (ICD-10-PCS; 2022-12-29)
DX: S72.141A Displaced intertrochanteric fracture of right femur, initial encounter for closed fracture (principal); D62 Acute posthemorrhagic anemia; M97.01XA Periprosthetic fracture around internal prosthetic right hip joint, initial encounter; I13.0 Hypertensive heart and chronic kidney disease with heart failure and stage 1 through stage 4 chronic kidney disease, or unspecified chronic kidney disease; I48.21 Permanent atrial fibrillation; Z68.1 Body mass index [BMI] 19.9 or less, adult; W01.0XXA Fall on same level from slipping, tripping and stumbling without subsequent striking against object, initial encounter; R62.7 Adult failure to thrive; R63.6 Underweight; Y92.009 Unspecified place in unspecified non-institutional (private) residence as the place of occurrence of the external cause; E03.9 Hypothyroidism, unspecified; I25.10 Atherosclerotic heart disease of native coronary artery without angina pectoris; I25.2 Old myocardial infarction; Z86.711 Personal history of pulmonary embolism; Z79.01 Long term (current) use of anticoagulants; I50.9 Heart failure, unspecified; J44.9 Chronic obstructive pulmonary disease, unspecified; M79.7 Fibromyalgia; N18.30 Chronic kidney disease, stage 3 unspecified; Z79.02 Long term (current) use of antithrombotics/antiplatelets; Z79.82 Long term (current) use of aspirin; Z79.890 Hormone replacement therapy; Z79.899 Other long term (current) drug therapy; Z82.5 Family history of asthma and other chronic lower respiratory diseases; Z87.11 Personal history of peptic ulcer disease; Z95.818 Presence of other cardiac implants and grafts; Z71.3 Dietary counseling and surveillance; Z95.0 Presence of cardiac pacemaker
CPT/HCPCS: 36415; 71045; 71275; 73501; 73502; 80048; 80053; 82728; 83540; 83550; 83735; 84100; 84484; 85025; 85027; 85610; 85730; 86850; 86900; 86901; 86920; 93005; 94760

== ENCOUNTER 2023-02-07 16:31 | Inpatient (IN) | payer OTHER ==
--- NOTE | 2023-02-07 17:11 | ED ---
SOB HPI - General Source: RN notes reviewed <Susan Patrick - Last Filed: 02/07/23 18:33> <Trace Lazo - Last Filed: 02/13/23 07:04> - General Stated Complaint: blood clots lower lobes of heart per HF Hospital Time Seen by Provider: 02/07/23 17:08 - History of Present Illness Initial Comments: Patient is a 77-year-old female who was sent from [facility] today for pulmonary embolism. Patient had a watchman procedure in October. She developed a pulmonary embolism weight October and was placed on Lovenox as she has allergies to multiple factor XA inhibitors. States her last dose was Sunday and she was not prescribed anymore. Patient had a follow-up CT today which showed lobar segmental, and subsegmental pulmonary emboli involving the right upper, right middle, right lower, left lower lobes. There are chronic findings of right heart dysfunction which limits the ability to assess for right heart strain on CT. Patient states she has felt short of breath for the past 3 weeks mostly at night when she lays down. She has had intermittent pleuritic chest pain. No alleviating, exace rbating, or other modifying factors. She does have history of myocardial infarction in 2001. She takes baby aspirin daily. Denies leg pain and swelling. No hemoptysis. No nausea or vomiting. No fever, upper respiratory symptoms. (Susan Patrick) - Related Data Home Medications Medication Instructions Recorded Confirmed Metoprolol Tartrate [Lopressor] 50 mg PO DAILY 10/05/20 02/07/23 Spironolactone [Aldactone] 25 mg PO DAILY 08/04/21 02/07/23 Pantoprazole [Protonix] 40 mg PO BID 12/27/21 02/07/23 Amiodarone [Cordarone] 200 mg PO DAILY 02/03/22 02/07/23 Acetaminophen [Tylenol Extra 1,000 mg PO QID PRN 09/20/22 02/07/23 Strength] Ondansetron [Zofran] 4 mg PO Q8H PRN 09/20/22 02/07/23 Sennosides [Senokot] 8.6 mg PO DAILY 09/20/22 02/07/23 Triamcinolone 0.5% Cream [Kenalog 1 applic TOPICAL DAILY PRN 09/20/22 02/07/23 0.5% Cream] Aspirin EC [Ecotrin Low Dose] 81 mg PO DAILY 11/13/22 02/07/23 Doxepin HCl 6 mg PO HS 11/13/22 02/07/23 Levothyroxine Sodium [Synthroid] 100 mcg PO DAILY 11/13/22 02/07/23 Furosemide [Lasix] 40 mg PO DAILY 12/27/22 02/07/23 Butalb/Acetaminophen/Caffeine 1 cap PO BID PRN 01/10/23 02/07/23 [Fioricet 50-300-40 mg Capsule] Folic Acid 1 mg PO DAILY 01/10/23 02/07/23 dilTIAZem HCL [dilTIAZem HCL 24Hr 180 mg PO DAILY 01/10/23 02/07/23 ER (CD)] Mupirocin 2% Oint [Bactroban 2% 1 applic TOPICAL BID PRN 01/12/23 02/07/23 Oint] Clopidogrel [Plavix] 75 mg PO DAILY 02/07/23 02/07/23 Desloratadine [Clarinex] 5 mg PO DAILY 02/07/23 02/07/23 Escitalopram [Lexapro] 5 mg PO DAILY 02/07/23 02/07/23 Ferrous Sulfate [Iron (65 MG 325 mg PO DAILY 02/07/23 02/07/23 Elemental)] Morphine Sulfate ER [Ms Contin] 15 mg PO Q8HR@0700,1500,2300 02/07/23 02/07/23 Potassium Chloride Oral Liquid 40 meq PO BID 02/07/23 02/07/23 Previous Rx's Medication Instructions Recorded Enoxaparin [Lovenox] 40 mg SQ Q12H 90 Days #180 each 02/09/23 Allergies Allergy/AdvReac Type Severity Reaction Status Date / Time adhesive Allergy RASH FROM Verified 02/07/23 19:34 EKG STICKERS apixaban [From Eliquis] Allergy Rash/Hives Verified 02/07/23 19:34 celecoxib [From Celebrex] Allergy Rash/Hives Verified 02/07/23 19:34 sertraline HCl [From Zoloft] Allergy Rash/Hives Verified 02/07/23 19:34 sulfamethoxazole Allergy Anaphylaxis Verified 02/07/23 19:34 [From Bactrim] trimethoprim [From Bactrim] Allergy Anaphylaxis Verified 02/07/23 19:34 cholestyramine AdvReac DIZZY/CONFU Verified 02/07/23 19:34 SED Review of Systems ROS Other: All systems not noted in ROS Statement are negative. <CelinaSusan - Last Filed: 02/07/23 18:33> ROS Other: All systems not noted in ROS Statement are negative. <VioletTrace - Last Filed: 02/13/23 07:04> ROS Statement: Those systems with pertinent positive or pertinent negative responses have been documented in the HPI. Past Medical History Past Medical History: Atrial Fibrillation, Blood Disorder, Coronary Artery Disease (CAD), Chest Pain / Angina, Heart Failure, COPD, CVA/TIA, Fibromyalgia, GERD/Reflux, GI Bleed, Hypertension, Myocardial Infarction (ID), Musculoskeletal Disorder, Osteoarthritis (OA), Thyroid Disorder Additional Past Medical History / Comment(s): Pacemaker for Syncope/Tachybrady Syndrome. Hx RHEUMATIC FEVER. Heart murmur, chronic back and bilateral shoulder pain. SEVERE OSTEOPROSIS, Vertigo, Degenerative Joint Disease, GI ulcers, esophagitis/esophageal stricture, partially blocked bile duct, PROBLEMS WITH SWALLOWING, "no symptoms of COPD." FALLS "Cannot lie down for long without having back pain.". Left hip open reduction internal fixation of some trochanteric comminuted femur fracture in November 2021 Last Myocardial Infarction Date:: 2002 History of Any Multi-Drug Resistant Organisms: None Reported Past Surgical History: Appendectomy, Cardiac Ablation, Cholecystectomy, Ear Surgery, Heart Catheterization, Hysterectomy, Orthopedic Surgery, Pacemaker, Tonsillectomy Additional Past Surgical History / Comment(s): ORIF LEFT LOWER ARM, HAS HARDWARE, numerous DILATATION OF ESOPHAGUS, biopsies were negative, colonoscopy, Pacemaker (ADAPTA) placed 07/07 at [facility], bilateral stapedecto mies(stainless steel in both ears), Hiatal Hernia repair, inguinal and femoral hernia repairs, "cement placed in back, due to broken back/pelvis". Left Femur Surgery 12/09/21 Past Anesthesia/Blood Transfusion Reactions: Family History of Problems w/ Anesthesia, Motion Sickness, Postoperative Nausea & Vomiting (PONV) Additional Past Anesthesia/Blood Transfusion Reaction / Comment(s): No problems with prior blood transfusion. BROTHER HAS PONV. Type of Cardiac Device: Permanent Pacemaker Device Placement Date:: 06/2016 Additional Psychological History / Comment(s): DENIES ANY HX OF PROBLEM - Past Family History Brother(s) Family Medical History: Cancer Additional Family Medical History / Comment(s): Throat cancer. Father Family Medical History: Pneumonia Additional Family Medical History / Comment(s): EMPHYSEMA. Mother Family Medical History: COPD, Rheumatoid Arthritis (RA) Additional Family Medical History / Comment(s): EMPHYSEMA. <CelinaSusan - Last Filed: 02/07/23 18:33> General Exam General appearance: alert Eye exam: Present: normal appearance, PERRL, EOMI. Absent: scleral icterus, conjunctival injection, periorbital swelling Respiratory exam: Present: normal lung sounds bilaterally. Absent: respiratory distress, wheezes, rales, rhonchi, stridor Cardiovascular Exam: Present: regular rate, normal rhythm, normal heart sounds. Absent: systolic murmur, diastolic murmur, rubs, gallop, clicks Extremities exam: Present: normal inspection, full ROM, normal capillary refill. Absent: calf tenderness Neurological exam: Present: alert Psychiatric exam: Present: normal affect, normal mood Skin exam: Present: warm, dry, intact, normal color. Absent: rash <CelinaSusan - Last Filed: 02/07/23 18:33> - General Exam Comments Initial Comments: Visual Physical Exam Vital signs reviewed General: Well-appearing, nontoxic, no acute distress. Head: Normocephalic, atraumatic Eyes: PERRLA, EOMI ENT: Airway patent Chest: Nonlabored breathing Skin: No visual rash, normal skin tone Neuro: Alert and oriented 3 Musculoskeletal: No gross abnormalities (Susan Patrick) Course Vital Signs 02/07/23 02/07/23 02/07/23 17:07 17:45 19:36 Temperature 98.0 F Pulse Rate 63 61 66 Pulse Rate [ Program Director Group Work ] Respiratory 18 20 16 Rate Blood Pressure 110/66 113/66 122/70 Blood Pressure [Right Arm] O2 Sat by Pulse 97 100 93 L Oximetry 02/07/23 02/08/23 02/08/23 21:00 02:00 04:00 Temperature 97.9 F Pulse Rate 67 Pulse Rate [ 60 60 Program Director Group Work ] Respiratory 16 11 L 15 Rate Blood Pressure 113/56 Blood Pressure 103/49 114/57 [Right Arm] O2 Sat by Pulse 99 99 100 Oximetry 02/08/23 02/08/23 02/08/23 08:28 12:00 15:30 Temperature 97.8 F 98.0 F 97.8 F Pulse Rate 64 55 L 54 L Pulse Rate [ Program Director Group Work ] Respiratory 16 16 16 Rate Blood Pressure 124/68 119/59 109/64 Blood Pressure [Right Arm] O2 Sat by Pulse 100 100 95 Oximetry Medical Decision Making - Lab Data Result diagrams: 02/07/23 17:53 <Susan Patrick - Last Filed: 02/07/23 18:33> - Lab Data Result diagrams: 02/10/23 08:56 02/10/23 08:56 <Trace Lazo - Last Filed: 02/13/23 07:04> - Medical Decision Making I performed the QuickNote portion of this chart - Susan Patrick PA-C EKG taken at 17:37,, interpreted by myself Sinus bradycardia, left axis deviation, nonspecific T-wave abnormality Ventricular rate 59, KS interval 180, QRS duration 90, QTc 418 Was pt. sent in by a medical professional or institution ([facility]ard, FRAMING MACHINE TENDER, urgent care, hospital, or intermediate...) When possible be specific @ -[facility] Did you speak to anyone other than the patient for history (EMS, parent, family, police, friend...)? What history was obtained from this source @ -No Did you review nursing and triage notes (agree or disagree)? Why? @ -I reviewed and agree with nursing and triage notes Were old charts reviewed (outside hosp., previous admission, EMS record, old EKG, old radiological studies, urgent care reports/EKG's, intermediate records)? Report findings @ -Reviewed CT from [facility] Differential Diagnosis (chest pain, altered mental status, abdominal pain women, abdominal pain men, vaginal bleeding, weakness, fever, dyspnea, syncope, headache, dizziness, GI bleed, back pain, seizure, CVA, palpatations, mental health)? @ Differential Dyspnea: Coronary syndrome, arrhythmia, tamponade, asthma, COPD, pulmonary embolism, pneumonia, pneumothorax, pulmonary effusion, anaphylaxis, diabetic ketoacidosis, flailed chest, pulmonary contusion, diaphragmatic rupture, anemia, neuromuscular, this is not meant to be an all-inclusive list. EKG interpreted by me (3pts min.). @ -As above X-rays interpreted by me (1pt min.). @ -None done CT interpreted by me (1pt min.). @ -None done U/S interpreted by me (1pt. min.). @ -None done What testing was considered but not performed or refused? (CT, X-rays, U/S, labs)? Why? @ -None What meds were considered but not given or refused? Why? @ -None Did you discuss the management of the patient with other professionals (professionals i.e. DrMarquise, PA, FRAMING MACHINE TENDER, lab, RT, psych nurse, social media editor, stacking machine operator, teacher, digital controls technical officer, complex case manager)? Give summary @ -No Was smoking cessation discussed for >3mins.? @ -No Was critical care preformed (if so, how long)? @ -No Were there social determinants of health that impacted care today? How? (Homelessness, low income, unemployed, alcoholism, drug addiction, transportation, low edu. Level, literacy, decrease access to med. care, halfway, rehab)? @ -No Was there de-escalation of care discussed even if they declined (Discuss DNR or withdrawal of care, Hospice)? DNR status @ -No What co-morbidities impacted this encounter? (DM, HTN, Smoking, COPD, CAD, Cancer, CVA, ARF, Chemo, Hep., AIDS, mental health diagnosis, sleep apnea, morbid obesity)? @ -None] Was patient admitted / discharged? Hospital course, mention meds given and route, prescriptions, significant lab abnormalities, going to OR and other perti nent info. @77-year-old female with multiple pulmonary embolisms. Patient resting comfortably no evidence of respiratory distress. No hypoxia. She is hemodynamically stable. Case discussed with Dr. Clayton patient will be admitted for further evaluation and management pulm is consulted. Lovenox started age admitted in stable condition Undiagnosed new problem with uncertain prognosis? @ -[No] Drug Therapy requiring intensive monitoring for toxicity (Heparin, Nitro, Insulin, Cardizem)? @ -[No] Were any procedures done? @ -[No] Diagnosis/symptom? @ -pulmonary embolism Acute, or Chronic, or Acute on Chronic? @ -acute Uncomplicated (without systemic symptoms) or Complicated (systemic symptoms)? @ -uncomplicated Side effects of treatment? @ -[No] Exacerbation, Progression, or Severe Exacerbation? @ -[No] Poses a threat to life or bodily function? How? (Chest pain, USA, ID, pneumonia, PE, COPD, DKA, ARF, appy, cholecystitis, CVA, Diverticulitis, Homicidal, Suicidal, threat to staff... and all critical care pts) @ Yes Dr. Lazo is my attending (Susan Patrick) - Lab Data Lab Results 02/07/23 02/07/23 02/07/23 Range/Units 17:53 17:53 17:53 WBC 5.7 (3.8-10.6) k/uL RBC 3.97 (3.80-5.40) m/uL Hgb 11.3 L D (11.4-16.0) gm/dL Hct 36.0 (34.0-46.0) % MCV 90.6 D (80.0-100.0) fL MCH 28.4 (25.0-35.0) pg MCHC 31.3 (31.0-37.0) g/dL RDW 18.7 H (11.5-15.5) % Plt Count 332 (150-450) k/uL MPV 7.6 Neutrophils % 65 % Lymphocytes % 24 % Monocytes % 6 % Eosinophils % 3 % Basophils % 1 % Neutrophils # 3.7 (1.3-7.7) k/uL Lymphocytes # 1.4 (1.0-4.8) k/uL Monocytes # 0.3 (0-1.0) k/uL Eosinophils # 0.2 (0-0.7) k/uL Basophils # 0.0 (0-0.2) k/uL Hypochromasia Moderate Anisocytosis Slight PT 10.9 (10.0-12.5) sec INR 1.0 (<1.2) APTT 24.3 (22.0-30.0) sec D-Dimer 3.03 H (<0.60) mg/L FEU Sodium 133 L (137-145) mmol/L Potassium 3.7 (3.5-5.1) mmol/L Chloride 93 L (98-107) mmol/L Carbon Dioxide 32 H (22-30) mmol/L Anion Gap 8 mmol/L BUN 21 H (7-17) mg/dL Creatinine 1.50 H (0.52-1.04) mg/dL Est GFR (CKD-EPI)AfAm 39 (>60 ml/min/1.73 sqM) Est GFR (CKD-EPI)NonAf 34 (>60 ml/min/1.73 sqM) Glucose 93 (74-99) mg/dL Calcium 8.9 (8.4-10.2) mg/dL Magnesium 1.8 (1.6-2.3) mg/dL Total Bilirubin 0.3 (0.2-1.3) mg/dL AST 46 H (14-36) U/L ALT 26 (4-34) U/L Alkaline Phosphatase 150 H (38-126) U/L Troponin I (0.000-0.034) ng/mL Total Protein 7.0 (6.3-8.2) g/dL Albumin 3.8 (3.5-5.0) g/dL 02/07/23 Range/Units 17:53 WBC (3.8-10.6) k/uL RBC (3.80-5.40) m/uL Hgb (11.4-16.0) gm/dL Hct (34.0-46.0) % MCV (80.0-100.0) fL MCH (25.0-35.0) pg MCHC (31.0-37.0) g/dL RDW (11.5-15.5) % Plt Count (150-450) k/uL MPV Neutrophils % % Lymphocytes % % Monocytes % % Eosinophils % % Basophils % % Neutrophils # (1.3-7.7) k/uL Lymphocytes # (1.0-4.8) k/uL Monocytes # (0-1.0) k/uL Eosinophils # (0-0.7) k/uL Basophils # (0-0.2) k/uL Hypochromasia Anisocytosis PT (10.0-12.5) sec INR (<1.2) APTT (22.0-30.0) sec D-Dimer (<0.60) mg/L FEU Sodium (137-145) mmol/L Potassium (3.5-5.1) mmol/L Chloride (98-107) mmol/L Carbon Dioxide (22-30) mmol/L Anion Gap mmol/L BUN (7-17) mg/dL Creatinine (0.52-1.04) mg/dL Est GFR (CKD-EPI)AfAm (>60 ml/min/1.73 sqM) Est GFR (CKD-EPI)NonAf (>60 ml/min/1.73 sqM) Glucose (74-99) mg/dL Calcium (8.4-10.2) mg/dL Magnesium (1.6-2.3) mg/dL Total Bilirubin (0.2-1.3) mg/dL AST (14-36) U/L ALT (4-34) U/L Alkaline Phosphatase (38-126) U/L Troponin I <0.012 (0.000-0.034) ng/mL Total Protein (6.3-8.2) g/dL Albumin (3.5-5.0) g/dL Disposition <Susan Patrick - Last Filed: 02/07/23 18:33> <Trace Lazo - Last Filed: 02/13/23 07:04> Clinical Impression: Pulmonary embolism Disposition: ADMITTED IP TO THIS [facility] Condition: Stable
[2023-02-07] MEDS ORDERED: ENOXAPARIN 40 MG/0.4 ML SYRINGE SQ STA (18:16)
[2023-02-07] MEDS ORDERED: NALOXONE 0.4 MG/ML 1 ML VIAL IV PRN (18:17)
[2023-02-07 18:21] LABS: Anisocytosis Slight; Basophils % (A) 1 %; Eosinophils # (A) 0.2 k/uL (0-0.7); Eosinophils % (A) 3 %; Hypochromasia Moderate; Lymphocytes # (A) 1.4 k/uL (1.0-4.8); Lymphocytes % (A) 24 %; MCH 28.4 pg (25.0-35.0); MCHC 31.3 g/dL (31.0-37.0); Mean Platelet Volume 7.6; Monocytes # (A) 0.3 k/uL (0-1.0); Monocytes % (A) 6 %; Neutrophils # (A) 3.7 k/uL (1.3-7.7); Neutrophils % (A) 65 %; Platelet Count 332 k/uL (150-450); RBC 3.97 m/uL (3.80-5.40); RDW 18.7 % (11.5-15.5); WBC 5.7 k/uL (3.8-10.6)
[2023-02-07 18:27] LABS: HGB 11.3 gm/dL (11.4-16.0); MCV 90.6 fL (80.0-100.0)
[2023-02-07 18:34] LABS: Partial Thromboplastin Time 24.3 sec (22.0-30.0); Prothrombin Time 10.9 sec (10.0-12.5)
[2023-02-07 19:02] LABS: ALT 26 U/L (4-34); AST 46 U/L (14-36); African American GFR (CKD) 39 (>60 ml/min/1.73 sqM); Albumin 3.8 g/dL (3.5-5.0); Alkaline Phosphatase 150 U/L (38-126); Anion Gap 8 mmol/L; Blood Urea Nitrogen 21 mg/dL (7-17); Calcium 8.9 mg/dL (8.4-10.2); Carbon Dioxide 32 mmol/L (22-30); Chloride 93 mmol/L (98-107); Glucose 93 mg/dL (74-99); Magnesium 1.8 mg/dL (1.6-2.3); Non-African American GFR(CKD) 34 (>60 ml/min/1.73 sqM); Potassium 3.7 mmol/L (3.5-5.1); Sodium 133 mmol/L (137-145); Total Bilirubin 0.3 mg/dL (0.2-1.3)
[2023-02-07] MEDS: SODIUM CHLORIDE 0.9% 1,000 ML IV SCH (19:32)
--- NOTE | 2023-02-07 19:44 | US ---
EXAMINATION TYPE: US venous doppler duplex LE BI DATE OF EXAM: 02/07/2023 7:21 PM COMPARISON: 11/14/22 CLINICAL INDICATION: Female, 77 years old with history of PE; PE SIDE PERFORMED: Bilateral TECHNIQUE: The lower extremity deep venous system is examined utilizing real time linear array sonog guillermina with graded compression, doppler sonography and color-flow sonography. VESSELS IMAGED: Common Femoral Vein Deep Femoral Vein Greater Saphenous Vein * Femoral Vein Popliteal Vein Small Saphenous Vein * Proximal Calf Veins (* superficial vessels) Right Leg: No evidence for DVT Left Leg: No evidence for DVT IMPRESSION: Grayscale, color doppler, spectral doppler imaging performed of the deep veins of the lo wer extremities. There is normal flow, compressibility, vascular waveforms.
[2023-02-07] MEDS ORDERED: ACETAMINOPHEN TAB 500 MG TAB PO PRN (21:28)
[2023-02-07] MEDS ORDERED: BUTALB/APAP/CAFF 50-325-40MG TAB PO PRN (21:28)
[2023-02-07] MEDS ORDERED: ONDANSETRON 4 MG TAB PO PRN (21:28)
[2023-02-07] MEDS: MORPHINE SULFATE ER 15 MG TABLET PO SCH (22:31)
--- NOTE | 2023-02-07 22:31 | P.HPIM ---
History of Present Illness H&P Date: 02/07/23 Chief Complaint: PE 77-year-old female with complex past medical history. She was sent in here upon abnormal ET scan findings. Patient had follow-up CT scans done a few days ago today she was told that he has multiple PEs for which she decided to come to this hospital as it close to her home for further care. She has severe osteo-porosis she reports multiple bone fractures over the past couple months she had a left hip fracture in November of this year then a right hip fracture 2 weeks ago fixed with an IM nail. Wound is healing well she still not walking due to severe pain in her hips she is wheelchair bound. Patient had a watchman procedure done October for which she get a follow-up CAT scan today where they found multiple PEs. Patient was diagnosed with a PE back in October she is not sure if it was provoked or not improve SHE was kept on Lovenox and Sunday. It was only briefly positive for a day or 2 before her right hip surgery and immediately resumed after she denies any coughing or hemoptysis however she did have some progressive shortness of breath over the past 3 weeks worse with laying down reporting orthopnea and increased swelling in her legs worse on the right compared to the left she reports history of congestive heart failure. She also reports history of recurrent esophageal structures she had 20 endoscopy procedures done last one was about 3 weeks ago She denies tobacco smoking and illicit drugs or alcohol she denies any fever, chills, cough, sore throat, chest pain , , nausea , vomiting, abd pain , changes in urinary or bowel habits. She denies any GI bleeding review of systems Pertinent positives as noted in HPI. All other systems were reviewed and are negative on exam Constitutional: No acute distress, conversant, pleasant Eyes: Anicteric sclerae, moist conjunctiva, Pupils equal round reactive to light ENMT: NC/AT Oropharynx clear, no erythema, or exudates Neck: Supple, no masses, or JVD No carotid bruits No thyromegaly Lungs: Bilateral mid and lower lungs with inspiratory and expiratory rales no wheezing Clear to percussion Normal respiratory effort, no accessory muscle use Cardiovascular: Heart regular in rate and rhythm, No murmurs, gallops, or rubs +2 peripheral edema worse on the right legs compared to the left Abdominal: Soft Nontender, no guarding, rebound or rigidity Abdomen moving with respiration Normoactive bowel sounds No hepatomegaly, No splenomegaly No palpable mass No abdominal wall hernia noted Extremities: No digital cyanosis No clubbing Pedal pulses intact and symmetrical Radial pulses intact and symmetrical No calf tenderness Psychiatric: Alert and oriented to person, place and time Appropriate affect fair judgement Neuro Muscles Strength 4/5 in bilateral upper extremity 3 out of 5 in bilateral lower extremity limited by pain bilateral hips Sensation to light touch grossly present throughout Cranial nerves II-XII grossly intact Lymphatics: no palpable cervical or supraclavicular lymph nodes Assessment and plan 77-year-old female with severe osteoporosis recent PE just stopped Lovenox \\5 days ago I discussed the case with the adductor accepted the admission for multiple pulmonary embolism with anticipated length of stay more than 2 midnights Multiple pulmonary bowel exam CT angiogram from another t facility reported lobar segmental and subsegmental p ulmonary emboli involving right upper right middle right lower left lower lobes with chronic findings of right heart dysfunction limits the ability to assess for right heart strain and CT Initiated on Lovenox 40 mg subcu twice a day Supplemental oxygen as needed close monitoring of vital signs Bedrest Patient probably will require lifelong anticoagulation D-dimer 3 Acute kidney injury Avoid nephrotoxic meds Check chest x-ray to rule out pleural effusion iF has significant pleural effusion or pulmonary congestion we'll switch by mouth Lasix to IV Monitor urine output Monitor renal function BUN 21 creatinine 1.5 sodium 133 potassium 3.7 chronic condition A. fib status post watchman procedure Continue with metoprolol currently on therapeutic doses of Lovenox for multiple PE Mild anemia Denies GI bleeding Hemoglobin 11.3 Severe osteoporosis with multiple fractures Recurrent esophageal strictures status post dilation 3 weeks ago History of multiple CVAs and MRI COPD continue with DuoNeb scheduled and when necessary Full code DVT prophylaxis currently on therapeutic doses of Lovenox Past Medical History Past Medical History: Atrial Fibrillation, Blood Disorder, Coronary Artery Disease (CAD), Chest Pain / Angina, Heart Failure, COPD, CVA/TIA, Fibromyalgia, GERD/Reflux, GI Bleed, Hypertension, Myocardial Infarction (MA), Musculoskeletal Disorder, Osteoarthritis (OA), Thyroid Disorder Additional Past Medical History / Comment(s): Pacemaker for Syncope/Tachybrady Syndrome. Hx RHEUMATIC FEVER. Heart murmur, chronic back and bilateral shoulder pain. SEVERE OSTEOPROSIS, Vertigo, Degenerative Joint Disease, GI ulcers, esophagitis/esophageal stricture, partially blocked bile duct, PROBLEMS WITH SWALLOWING, "no symptoms of COPD." FALLS "Cannot lie down for long without having back pain.". Left hip open reduction internal fixation of some trochanteric comminuted femur fracture in November 2021 Last Myocardial Infarction Date:: 2002 History of Any Multi-Drug Resistant Organisms: None Reported Past Surgical History: Appendectomy, Cardiac Ablation, Cholecystectomy, Ear Surgery, Heart Catheterization, Hysterectomy, Orthopedic Surgery, Pacemaker, Tonsillectomy Additional Past Surgical History / Comment(s): ORIF LEFT LOWER ARM, HAS HARDWARE, numerous DILATATION OF ESOPHAGUS, biopsies were negative, colonoscopy, Pacemaker (ADAPTA) placed 07/07 at , bilateral stapedectomies(stainless steel in both ears), Hiatal Hernia repair, inguinal and femoral hernia repairs, "cement placed in back, due to broken back/pelvis". Left Femur Surgery 12/09/21 Past Anesthesia/Blood Transfusion Reactions: Family History of Problems w/ Anesthesia, Motion Sickness, Postoperative Nausea & Vomiting (PONV) Additional Past Anesthesia/Blood Transfusion Reaction / Comment(s): No problems with prior blood transfusion. BROTHER HAS PONV. Type of Cardiac Device: Permanent Pacemaker Device Placement Date:: 06/2016 Additional Psychological History / Comment(s): DENIES ANY HX OF PROBLEM - Past Family History Brother(s) Family Medical History: Cancer Additional Family Medical History / Comment(s): Throat cancer. Father Family Medical History: Pneumonia Additional Family Medical History / Comment(s): EMPHYSEMA. Mother Family Medical History: COPD, Rheumatoid Arthritis (RA) Additional Family Medical History / Comment(s): EMPHYSEMA. Medications and Allergies Home Medications Medication Instructions Recorded Confirmed Type Metoprolol Tartrate [Lopressor] 50 mg PO DAILY 10/05/20 02/07/23 History Spironolactone [Aldactone] 25 mg PO DAILY 08/04/21 02/07/23 History Pantoprazole [Protonix] 40 mg PO BID 12/27/21 02/07/23 History Amiodarone [Cordarone] 200 mg PO DAILY 02/03/22 02/07/23 History Acetaminophen [Tylenol Extra 1,000 mg PO QID PRN 09/20/22 02/07/23 History Strength] Ondansetron [Zofran] 4 mg PO Q8H PRN 09/20/22 02/07/23 History Sennosides [Senokot] 8.6 mg PO DAILY 09/20/22 02/07/23 History Triamcinolone 0.5% Cream [Kenalog 1 applic TOPICAL DAILY PRN 09/20/22 02/07/23 History 0.5% Cream] Aspirin EC [Ecotrin Low Dose] 81 mg PO DAILY 11/13/22 02/07/23 History Doxepin HCl 6 mg PO HS 11/13/22 02/07/23 History Levothyroxine Sodium [Synthroid] 100 mcg PO DAILY 11/13/22 02/07/23 History Furosemide [Lasix] 40 mg PO DAILY 12/27/22 02/07/23 History Butalb/Acetaminophen/Caffeine 1 cap PO BID PRN 01/10/23 02/07/23 History [Fioricet 50-300-40 mg Capsule] Folic Acid 1 mg PO DAILY 01/10/23 02/07/23 History dilTIAZem HCL [dilTIAZem HCL 24Hr 180 mg PO DAILY 01/10/23 02/07/23 History ER (CD)] Mupirocin 2% Oint [Bactroban 2% 1 applic TOPICAL BID PRN 01/12/23 02/07/23 History Oint] Clopidogrel [Plavix] 75 mg PO DAILY 02/07/23 02/07/23 History Desloratadine [Clarinex] 5 mg PO DAILY 02/07/23 02/07/23 History Escitalopram [Lexapro] 5 mg PO DAILY 02/07/23 02/07/23 History Ferrous Sulfate [Feosol] 325 mg PO DAILY 02/07/23 02/07/23 History Morphine Sulfate ER [Ms Contin] 15 mg PO Q8HR@0700,1500,2300 02/07/23 02/07/23 History Potassium Chloride Oral Liquid 40 meq PO BID 02/07/23 02/07/23 History Allergies Allergy/AdvReac Type Severity Reaction Status Date / Time adhesive Allergy RASH FROM Verified 02/07/23 19:34 EKG STICKERS apixaban [From Eliquis] Allergy Rash/Hives Verified 02/07/23 19:34 celecoxib [From Celebrex] Allergy Rash/Hives Verified 02/07/23 19:34 sertraline HCl [From Zoloft] Allergy Rash/Hives Verified 02/07/23 19:34 sulfamethoxazole Allergy Anaphylaxis Verified 02/07/23 19:34 [From Bactrim] trimethoprim [From Bactrim] Allergy Anaphylaxis Verified 02/07/23 19:34 cholestyramine AdvReac DIZZY/CONFU Verified 02/07/23 19:34 SED Physical Exam Vitals: Vital Signs Temp Pulse Resp BP Pulse Ox 02/07/23 21:00 67 16 113/56 99 02/07/23 19:36 66 16 122/70 93 L 02/07/23 17:45 61 20 113/66 100 02/07/23 17:07 98.0 F 63 18 110/66 97 Intake and Output 02/07/23 02/07/23 02/07/23 06:59 14:59 22:59 Other: Weight 43.091 kg Results CBC & Chem 7: 02/07/23 17:53 02/07/23 17:53 Labs: Abnormal Lab Results - Last 24 Hours (Table) 02/07/23 02/07/23 02/07/23 Range/Units 17:53 17:53 17:53 Hgb 11.3 L D (11.4-16.0) gm/dL RDW 18.7 H (11.5-15.5) % D-Dimer 3.03 H (<0.60) mg/L FEU Sodium 133 L (137-145) mmol/L Chloride 93 L (98-107) mmol/L Carbon Dioxide 32 H (22-30) mmol/L BUN 21 H (7-17) mg/dL Creatinine 1.50 H (0.52-1.04) mg/dL AST 46 H (14-36) U/L Alkaline Phosphatase 150 H (38-126) U/L
--- NOTE | 2023-02-08 06:54 | P.CNPUL ---
History of Present Illness Consult date: 02/08/23 Requesting physician: Shaheen Lofton Reason for consult: pulmonary embolism Chief complaint: Abnormal CT findings a follow-up appointment History of present illness: I am seeing this patient in new consultation today 02/08/2023 after she was asked to come to the emergency room for abnormal CT at a follow-up appointment. Patient is a 77-year-old white female with past medical history significant for atrial fibrillation, watch band procedure done on 11/01/2022 at [facility], history of CVA/TIA, coronary artery disease, heart failure, previous pacemaker implant patient, esophageal strictures, and multiple other comorbidities. Her PCP is Dr. Mendes. Patient was recently treated here at [facility] for a left upper lung segmental pulmonary embolism back in 11/14/2022. She is ALLERGIC to Eliquis and Xarelto. She breaks out in hives. Patient was placed on Lovenox 40 mg twice a day. Subsequently, the patient had multiple falls and sustained a right hip fracture in December of this year. On 12/27/2022 she had closed reduction IM nailing of the right hip. She did resume her Lovenox after her procedure. A follow-up chest CTA on 12/31/2022 did not show any acute pulmonary embolism. Patient states that she was directed to stop taking her Lovenox on Sunday. Patient was scheduled to a follow-up appointment and CAT scan this week regarding her previous Watchman procedure in October. She states that she was called, and told to go to the emergency room. Only the report is available. Apparently, the patient has developed new lobar segmental and subsegmental pulmonary emboli involving the right upper lobe, right middle lobe, right lower, and left lower lobes. There were chronic findings of right heart dysfunction which limited the ability to assess for CT evidence of associated superimposed acute right heart strain. The pulmonary artery was slightly larger than prior CT. There were also postoperative findings of a left atrial appendage occluder device and appendage distal to the device not opacified, likely related to combination of thrombus or epithelialization. Patient is currently sitting up in bed, on 2 L/m nasal cannula, in no acute dis tress. She actually denies any shortness breath, chest pain, heart palpitations. She does have increased lower extremity swelling. Hemodynamically, the patient is stable. Blood pressure is normotensive. Heart rate appears normal sinus on the bedside monitor. No ECG evidence of right sided heart strain. Initial 2 troponins are not elevated. NT proBNP was 3220. Echocardiogram is pending. Patient has been rather nonmobile since her recent hip surgery. She gets around with a wheelchair. She states that she can only take a couple steps with a walker. Bilateral lower extremity venous Doppler negative for DVTs. Patient is going to be started on high intensity heparin per protocol. CBC from admission shows a WBC count of 5.7, hemoglobin 11.3, hematocrit 36, platelets 332. Baseline PTT 24. INR 1. BMP shows a sodium of 133, potassium 3.7, chloride 93, serum bicarbonate 32, BUN 21, creatinine 1.5, glucose 93. Patient is going to be admitted to the cardiac step down unit once bed available. Review of Systems REVIEW OF SYSTEMS: CONSTITUTIONAL: Denies any recent significant weight loss or weight gain. EYES: Denies change in vision. EARS, NOSE, MOUTH, THROAT: Denies headaches, denies sore throat. CARDIOVASCULAR: Denies chest pain, palpitations or syncopal episodes. Admits increased lower extremity edema RESPIRATORY: Denies shortness of breath, cough, congestion or hemoptysis. GASTROINTESTINAL: Denies change in appetite, abdominal pain, nausea and vomiting, or diarrhea GENITOURINARY: Denies hematuria, denies infections. MUSKULOSKELETAL: Denies pain, denies swelling. INTEGUMENTARY: Denies rash, denies eczema. NEUROLOGICAL: Denies recent memory loss, no recent seizure activity. PSYCHIATRIC: Denies anxiety, denies depression. HEMATOLOGIC/LYMPHATIC: Denies anemia, denies enlarged lymph node Past Medical History Past Medical History: Atrial Fibrillation, Blood Disorder, Coronary Artery Disease (CAD), Chest Pain / Angina, Heart Failure, COPD, CVA/TIA, Fibromyalgia, GERD/Reflux, GI Bleed, Hypertension, Myocardial Infarction (SD), Musculoskeletal Disorder, Osteoarthritis (OA), Thyroid Disorder Additional Past Medical History / Comment(s): Pacemaker for Syncope/Tachybrady Syndrome. Hx RHEUMATIC FEVER. Heart murmur, chronic back and bilateral shoulder pain. SEVERE OSTEOPROSIS, Vertigo, Degenerative Joint Disease, GI ulcers, esophagitis/esophageal stricture, partially blocked bile duct, PROBLEMS WITH SWALLOWING, "no symptoms of COPD." FALLS "Cannot lie down for long without having back pain.". Left hip open reduction internal fixation of some trochanteric comminuted femur fracture in November 2021 Last Myocardial Infarction Date:: 2002 History of Any Multi-Drug Resistant Organisms: None Reported Past Surgical History: Appendectomy, Cardiac Ablation, Cholecystectomy, Ear Surgery, Heart Catheterization, Hysterectomy, Orthopedic Surgery, Pacemaker, Tonsillectomy Additional Past Surgical History / Comment(s): ORIF LEFT LOWER ARM, HAS HARDWARE, numerous DILATATION OF ESOPHAGUS, biopsies were negative, colonoscopy, Pacemaker (ADAPTA) placed 07/07 at [facility], bilateral stapedectomies(stainless steel in both ears), Hiatal Hernia repair, inguinal and femoral hernia repairs, "cement placed in back, due to broken back/pelvis". Left Femur Surgery 12/09/21 Past Anesthesia/Blood Transfusion Reactions: Family History of Problems w/ Anesthesia, Motion Sickness, Postoperative Nausea & Vomiting (PONV) Additional Past Anesthesia/Blood Transfusion Reaction / Comment(s): No problems with prior blood transfusion. BROTHER HAS PONV. Type of Cardiac Device: Permanent Pacemaker Device Placement Date:: 06/2016 Additional Psychological History / Comment(s): DENIES ANY HX OF PROBLEM - Past Family History Brother(s) Family Medical History: Cancer Additional Family Medical History / Comment(s): Throat cancer. Father Family Medical History: Pneumonia Additional Family Medical History / Comment(s): EMPHYSEMA. Mother Family Medical History: COPD, Rheumatoid Arthritis (RA) Additional Family Medical History / Comment(s): EMPHYSEMA. Medications and Allergies Home Medications Medication Instructions Recorded Confirmed Type Metoprolol Tartrate [Lopressor] 50 mg PO DAILY 10/05/20 02/07/23 History Spironolactone [Aldactone] 25 mg PO DAILY 08/04/21 02/07/23 History Pantoprazole [Protonix] 40 mg PO BID 12/27/21 02/07/23 History Amiodarone [Cordarone] 200 mg PO DAILY 02/03/22 02/07/23 History Acetaminophen [Tylenol Extra 1,000 mg PO QID PRN 09/20/22 02/07/23 History Strength] Ondansetron [Zofran] 4 mg PO Q8H PRN 09/20/22 02/07/23 History Sennosides [Senokot] 8.6 mg PO DAILY 09/20/22 02/07/23 History Triamcinolone 0.5% Cream [Kenalog 1 applic TOPICAL DAILY PRN 09/20/22 02/07/23 History 0.5% Cream] Aspirin EC [Ecotrin Low Dose] 81 mg PO DAILY 11/13/22 02/07/23 History Doxepin HCl 6 mg PO HS 11/13/22 02/07/23 History Levothyroxine Sodium [Synthroid] 100 mcg PO DAILY 11/13/22 02/07/23 History Furosemide [Lasix] 40 mg PO DAILY 12/27/22 02/07/23 History Butalb/Acetaminophen/Caffeine 1 cap PO BID PRN 01/10/23 02/07/23 History [Fioricet 50-300-40 mg Capsule] Folic Acid 1 mg PO DAILY 01/10/23 02/07/23 History dilTIAZem HCL [dilTIAZem HCL 24Hr 180 mg PO DAILY 01/10/23 02/07/23 History ER (CD)] Mupirocin 2% Oint [Bactroban 2% 1 applic TOPICAL BID PRN 01/12/23 02/07/23 History Oint] Clopidogrel [Plavix] 75 mg PO DAILY 02/07/23 02/07/23 History Desloratadine [Clarinex] 5 mg PO DAILY 02/07/23 02/07/23 History Escitalopram [Lexapro] 5 mg PO DAILY 02/07/23 02/07/23 History Ferrous Sulfate [Feosol] 325 mg PO DAILY 02/07/23 02/07/23 History Morphine Sulfate ER [Ms Contin] 15 mg PO Q8HR@0700,1500,2300 02/07/23 02/07/23 History Potassium Chloride Oral Liquid 40 meq PO BID 02/07/23 02/07/23 History Allergies Allergy/AdvReac Type Severity Reaction Status Date / Time adhesive Allergy RASH FROM Verified 02/07/23 19:34 EKG STICKERS apixaban [From Eliquis] Allergy Rash/Hives Verified 02/07/23 19:34 celecoxib [From Celebrex] Allergy Rash/Hives Verified 02/07/23 19:34 sertraline HCl [From Zoloft] Allergy Rash/Hives Verified 02/07/23 19:34 sulfamethoxazole Allergy Anaphylaxis Verified 02/07/23 19:34 [From Bactrim] trimethoprim [From Bactrim] Allergy Anaphylaxis Verified 02/07/23 19:34 cholestyramine AdvReac DIZZY/CONFU Verified 02/07/23 19:34 SED Physical Exam Vitals: Vital Signs Temp Pulse Pulse Resp BP BP Pulse Ox 02/08/23 04:00 97.9 F 60 15 114/57 100 02/08/23 02:00 60 11 L 103/49 99 02/07/23 21:00 67 16 113/56 99 02/07/23 19:36 66 16 122/70 93 L 02/07/23 17:45 61 20 113/66 100 02/07/23 17:07 98.0 F 63 18 110/66 97 Intake and Output 02/07/23 02/07/23 02/08/23 14:59 22:59 06:59 Output Total 300 Balance -300 Output: Urine 300 Other: # Voids 2 Weight 43.091 kg GENERAL EXAM: Alert, 77-year-old white female, comfortable in no apparent distress. HEAD: Normocephalic and atraumatic EYES: Normal reaction of pupils, equal size. NOSE: Clear with pink turbinates. THROAT: No erythema or exudates. NECK: No masses, no JVD. CHEST: No chest wall deformity. LUNGS: Equal air entry with no crackles, wheeze, rhonchi or dullness. On 2 L/m nasal cannula. SpO2 99%. No conversational dyspnea or accessory muscle use.. CVS: S1 and S2 normal with no audible murmur, regular rhythm. No extra heart sounds ABDOMEN: No hepatosplenomegaly, active bowel sounds, no guarding or rigidity. SPINE: No scoliosis or deformity SKIN: No rashes CENTRAL NERVOUS SYSTEM: No focal deficits, tone is normal in all 4 extremities. EXTREMITIES: Bilateral lower extremity edema. No clubbing, or cyanosis. Peripheral pulses are intact. Results - Laboratory Findings CBC and BMP: 02/07/23 17:53 02/07/23 17:53 PT/INR, D-dimer PT 10.9 sec (10.0-12.5) 02/07/23 17:53 INR 1.0 (<1.2) 02/07/23 17:53 D-Dimer 3.03 mg/L FEU (<0.60) H 02/07/23 17:53 Abnormal lab findings: Abnormal Labs 02/07/23 02/07/23 02/07/23 17:53 17:53 17:53 Hgb 11.3 L D RDW 18.7 H D-Dimer 3.03 H Sodium 133 L Chloride 93 L Carbon Dioxide 32 H BUN 21 H Creatinine 1.50 H AST 46 H Alkaline Phosphatase 150 H - Diagnostic Findings Chest x-ray: image reviewed CT scan - chest: report reviewed Assessment and Plan Assessment: Recurrent acute pulmonary embolism, based on chest CTA report which indicates new lobar segmental and subsegmental pulmonary emboli involving the right upper lobe, right middle lobe, right lower, and left lower lobes. There were chronic findings of right heart dysfunction which limited the ability to assess for CT evidence of associated superimposed acute right heart strain. The pulmonary artery was slightly larger than prior CT. There were also postoperative findings of a left atrial appendage occluder device and appendage distal to the device not opacified, likely related to combination of thrombus or epithelialization. Acute hypoxemic failure, currently on 2 L/min nasal cannula, secondary to above Atrial fibrillation, with controlled ventricular rate . She is reportedly ALLERGIC to both Xarelto and Eliquis. She is status post watchman procedure recently performed on November 01, 2022 Acute kidney injury, creatinine 1.5 History of right hip fracture, status post closed reduction and IM nailing of the right hip on December 27, 2022 History of CVA/TIA History of coronary artery disease History of heart failure with preserved ejection fraction Benign essential hypertension History of pacemaker implementation Fibromyalgia COPD, stable Hypothyroidism History of esophageal strictures, status post dilation History of left-sided femur fracture Plan: Patient's medications, labs and imaging reviewed Patient reportedly stopped taking her Lovenox as directed on Sunday. She did get a call from a follow-up appointment, in which she underwent a chest CTA. There were new lobar segmental and subsegmental pulmonary emboli involving the right upper lobe, right middle lobe, right lower lobe, and left lower lobes. Patient has a follow-up echocardiogram pending to evaluate right heart strain. Hemodynamically, the patient is stable and she is being admitted to cardiac stepdown unit. On 2 L/m nasal cannula. High intensity heparin per protocol was ordered. No evidence of lower extremity DVT on bilateral venous Doppler. We will continue to follow, and further recommendations are forthcoming. I have personally seen and examined the patient, performed the documentation and the assessment and plan as written. Number of minutes spent on the visit:20 Time with Patient: Greater than 30
[2023-02-08] MEDS: MORPHINE SULFATE ER 15 MG TABLET PO SCH ×3 (06:56→23:19)
[2023-02-08] MEDS: LEVOTHYROXINE 100 MCG TAB PO SCH (06:58)
[2023-02-08] MEDS ORDERED: HEPARIN SODIUM 1,000 UN/ML (10ML VL) IV PRN (07:42)
[2023-02-08] MEDS: HEPARIN SOD,PORK IN 0.45% NACL 25,000 UNIT in 0.45% NACL 1 250ML.BAG IV SCH (07:45)
[2023-02-08 07:58] LABS: Partial Thromboplastin Time 77.3 sec (22.0-30.0)
[2023-02-08] MEDS: SPIRONOLACTONE 25 MG TAB PO SCH (08:31)
[2023-02-08] MEDS: METOPROLOL TARTRATE 50 MG TAB PO SCH (08:31)
[2023-02-08] MEDS: FUROSEMIDE 40 MG TAB PO SCH (08:31)
[2023-02-08] MEDS: SENNOSIDES 8.6 MG TAB PO SCH ×2 (08:31→08:35)
[2023-02-08] MEDS: PANTOPRAZOLE 40 MG TABLET PO SCH ×2 (08:31→16:49)
[2023-02-08] MEDS: LORATADINE 10 MG TAB PO SCH (08:31)
[2023-02-08] MEDS: AMIODARONE 200 MG TAB PO SCH (08:32)
[2023-02-08] MEDS: FOLIC ACID 1 MG TAB PO SCH (08:32)
[2023-02-08] MEDS: FERROUS SULFATE 325 MG TAB PO SCH (08:32)
[2023-02-08] MEDS: DILTIAZEM CD 180 MG CAP.ER.24H PO SCH (08:32)
[2023-02-08] MEDS: SODIUM CHLORIDE 0.9% 1,000 ML IV SCH (08:33)
--- NOTE | 2023-02-08 08:47 | CA ---
Transthoracic Echo Report Name: Mavis Marquez Age: 77 Gender: F : 1945 Exam Date: 02/07/2023 18:26 Exam Location: [facility] Ht (in): 61 Wt (lb): 95 Ordering Physician: Susan Patrick Attending/Referring Phys: Datapower Developer Loyda Broderick [facility] Procedure CPT: Indications: PE Cardiac Hx: Technical Quality: Fair Contrast 1: Total Dose (mL): Contrast 2: Total Dose (mL): MEASUREMENTS (Male / Female) Normal Values 2D ECHO LV Diastolic Diameter PLAX 3.7 cm 4.2 - 5.9 / 3.9 - 5.3 cm LV Systolic Diameter PLAX 2.5 cm IVS Diastolic Thickness 1.0 cm 0.6 - 1.0 / 0.6 - 0.9 cm LVPW Diastolic Thickness 0.8 cm 0.6 - 1.0 / 0.6 - 0.9 cm LV Relative Wall Thickness 0.5 RV Internal Dim ED PLAX 4.6 cm Ascending Aorta Diameter 3.7 cm DOPPLER TR Peak Velocity 205.9 cm/s TR Peak Gradient 17.0 mmHg Right Atrial Pressure 15.0 mmHg Pulmonary Artery Systolic Pressu 32.0 mmHg Right Ventricular Systolic Press 32.0 mmHg FINDINGS Left Ventricle Mildly increased septal wall thickness. Small left ventricular cavity. Normal left ventricular systolic function with no obvious regional wall motion abnormalities. Left ventricular ejection fraction is estimated at 55-60%. Right Ventricle Moderate right ventricular dilatation. Low normal right ventricular global systolic function. Catheter/pacemaker wire in the right ventricular cavity. Right Atrium Moderate right atrial dilatation. Catheter/pacemaker wire in the right atrial cavity. Left Atrium Mitral Valve Aortic Valve Tricuspid Valve [id number] tricuspid regurgitation. Pulmonic Valve Pericardium No pericardial effusion. Aorta Aorta at upper limits of normal. CONCLUSIONS Limited study for PE. Right ventricular enlargement with at least 3+ tricuspid regurgitation Dilated IVC Preserved LV size and function The leads noted on the right side he Previewed by: Dr. Heber Hernandez MD (Electronically Signed) Final Date: 08 February 2023 08:47
[2023-02-08 08:58] LABS: Anisocytosis Slight; Basophils # (A) 0.1 k/uL (0-0.2); Basophils % (A) 1 %; Eosinophils # (A) 0.2 k/uL (0-0.7); Eosinophils % (A) 4 %; HCT 35.5 % (34.0-46.0); Hypochromasia Marked; Lymphocytes # (A) 1.2 k/uL (1.0-4.8); Lymphocytes % (A) 23 %; MCH 28.9 pg (25.0-35.0); MCHC 31.1 g/dL (31.0-37.0); MCV 92.8 fL (80.0-100.0); Mean Platelet Volume 8.7; Monocytes # (A) 0.3 k/uL (0-1.0); Monocytes % (A) 6 %; Neutrophils # (A) 3.5 k/uL (1.3-7.7); Neutrophils % (A) 64 %; Platelet Count 304 k/uL (150-450); RBC 3.83 m/uL (3.80-5.40); RDW 18.7 % (11.5-15.5); WBC 5.5 k/uL (3.8-10.6)
[2023-02-08] MEDS ORDERED: ENOXAPARIN 40 MG/0.4 ML SYRINGE SQ SCH (09:00)
[2023-02-08] MEDS ORDERED: POTASSIUM BICARBONATE/CIT AC 20 MEQ TABLET.EFF PO SCH (09:00)
[2023-02-08 09:14] LABS: INR 1.1 (<1.2); Prothrombin Time 11.8 sec (10.0-12.5)
--- NOTE | 2023-02-08 09:14 | XR ---
EXAMINATION TYPE: XR chest 1V portable DATE OF EXAM: 02/07/2023 HISTORY: Shortness of breath. COMPARISON: 12/27/2022 TECHNIQUE: Single view of the chest is submitted. FINDINGS: Demonstrated are scattered senescent parenchymal change. There is no evidence for focal infiltrate. The heart is stable. Hilar and mediastinal structures are within normal limits. Degenerative changes are seen of the dorsal spine. IMPRESSION: 1. Chronic changes without evidence for acute pulmonary disease.
[2023-02-08] MEDS: ESCITALOPRAM 5 MG TAB PO SCH (09:19)
[2023-02-08 10:12] LABS: Appearance,Urine Clear (Clear); Bilirubin,Urine Negative (Negative); Blood,Urine Negative (Negative); Color,Urine Light Yellow; Glucose,Urine (UA) Negative (Negative); Hyaline Casts,Urine 6 /lpf (0-2); Ketones,Urine Negative (Negative); Leukocyte Esterase,Urine Small (Negative); Mucus,Urine Rare /hpf; Nitrite,Urine Negative (Negative); Protein,Urine Negative (Negative); RBC,Urine <1 /hpf (0-5); Specific Gravity,Urine 1.026 (1.001-1.035); Squamous Epithelial Cell,Urine 1 /hpf (0-4); Urobilinogen,Urine <2.0 mg/dL (<2.0); WBC,Urine 5 /hpf (0-5)
[2023-02-08 10:14] VITALS: BMI 17.9
[2023-02-08 11:51] LABS: African American GFR (CKD) 60 (>60 ml/min/1.73 sqM); Anion Gap 10 mmol/L; Blood Urea Nitrogen 17 mg/dL (7-17); Calcium 8.8 mg/dL (8.4-10.2); Carbon Dioxide 29 mmol/L (22-30); Chloride 98 mmol/L (98-107); Glucose 94 mg/dL (74-99); Magnesium 1.8 mg/dL (1.6-2.3); Non-African American GFR(CKD) 52 (>60 ml/min/1.73 sqM); Potassium 3.3 mmol/L (3.5-5.1); Sodium 137 mmol/L (137-145)
--- NOTE | 2023-02-08 13:03 | P.PN ---
Subjective Progress Note Date: 02/08/23 Hospital course: Patient is a very pleasant 77-year-old female with a past medical history of atrial fibrillation status post cardiac ablation's and watchman's device placement, history of recent PE previously on anticoagulation with Lovenox, CAD with stents, history of recurrent syncopal episodes resulting from tachybradycardia syndrome status post pacemaker placement,HFpEF, hypertension, hyperlipidemia, CVA/TIA, previous GI bleed, hypothyroidism, and esophageal stricture status post multiple surgical esophageal dilation procedures. Patient was sent for follow-up outpatient CT secondary to recent placement of watchman's device and was reportedly found to have multiple pulmonary emboli and sent to the emergency department for further evaluation and admission to the hospital. CT angiogram from outside facility reportedly stating lobar, segmental, and subsegmental pulmonary emboli involving the right upper and right middle lobe with findings concerning for right heart dysfunction unable to rule out right heart strain. Upon arrival, patient was found to have blood pressure 110/66, heart rate 63, respiratory rate 18, temp 98.0F, and SpO2 of 97% on room air. EKG was completed showing sinus bradycardia at 59 bpm. Echocardiogram completed showing preserved EF of 55-60% with moderate right atrial dilation and moderate to severe tricuspid regurgitation. Labs completed and reviewed. CBC showing normocytic anemia with hemoglobin stable at 11.3. Coagulation profile normal findings with the exception of elevated d-dimer of 3.03. BMP revealing hyponatremia with sodium of 133, hypochloremia with chloride of 93, and hypercarbia with bicarb is 32. Renal function elevated with BUN of 21 and creatinine of 1.50 with GFR of 34, baseline creatinine is 1.0. Liver profile showing slightly elevated AST of 46 and alkaline phosphatase of 150. Troponin was negative at less than 0.012. BMP 3220. Bilateral lower extremity Dopplers were completed negative for DVTs. Patient was started on high intensity heparin infusion and 18 units/Kg/hr for treatment of pulmonary emboli. Patient was admitted under our services with consultation to pulmonology. Hematology/oncol ogy was also consulted secondary to recurrent and multiple PEs with patient's allergies to multiple factor XA inhibitors. Physical exam: Vital signs reviewed and stable. General: Nontoxic, no distress and appears stated age. Derm: Skin warm and dry, normal coloration for ethnicity. Head: Atraumatic, normocephalic and symmetric. Eyes: EOMs intact, no lid lag, and anicteric sclera Mouth: no lip lesions, mucus membranes moist Cardiovascular: regular rate and rhythm with normal S1S2, systolic murmur, positive posterior tibial pulses bilaterally, and cap refill < 2 seconds. Lungs: Respirations even, regular, and unlabored Lungs CTA bilaterally, no rhonchi, no rales, no wheezing, and no accessory muscle usage. Abdominal: soft, nontender to palpation, no guarding, no appreciable organ omegaly Ext: ROM intact. No gross muscle atrophy, no edema, no contractures Neuro: Speech clear, face symmetrical and CN II-XII grossly intact with no noted focal neuro deficits Psych: Alert and oriented to person, place, time, and situation. Appropriate and pleasant affect. Assessment and Plan of Care: Recurrent and multiple pulmonary emboli to lobar, segmental, and subsegmental regions involving right upper, middle, and lower lobes as well as left lower lobe. HFpEF Paroxysmal atrial fibrillation History of CAD with stents History of tachybradycardia syndrome status post pacemaker placement Hypertension Hyperlipidemia Hypothyroidism History of esophageal stricture status post multiple surgeries for esophageal dilation -Patient to continue with anticoagulation with high intensity heparin infusion and 18 units/Kg/hr for treatment of pulmonary emboli. PTT therapeutic at 77.3. Will continue to monitor and make adjustments to heparin infusion as needed to maintain a recommended heparin therapeutic range of 44-79 seconds. -Hematology/oncology consulted secondary to recurrent and multiple PEs with patient's allergies to multiple factor XA inhibitors. -Pulmonology following, reviewed documentation in chart. -Patient to remain on continuous telemetry monitoring. -Symptomatic care and pain management. -Patient currently on 2 L O2 via nasal cannula discussed with RN wean once patient tolerates. -Reviewed echocardiogram report, Echocardiogram completed showing preserved EF of 55-60% with moderate right atrial dilation and moderate to severe tricuspid regurgitation. Acute kidney injury, resolved after IV fluid hydration. Hypokalemia -Potassium 3.3 patient received K-Lyte 40 mEq. Data and imaging reviewed: -Bilateral lower extremity Dopplers negative for DVT. -Echocardiogram completed showing preserved EF of 55-60% with moderate right atrial dilation and moderate to severe tricuspid regurgitation. -Morning labs completed and reviewed. CBC showing stable normocytic anemia with hemoglobin 11.0. Coagulation profile showing therapeutic PTT of 77.3. BMP showing mild hypokalemia with potassium of 3.3 and resolution of previous AKA I with BUN of 17, creatinine 1.05, and GFR 52. Urinalysis negative for infection. 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 This document was prepared using [employer] dictation software. Please allow for errors in helpdesk manager, while rare they do occur. I reviewed the documentation as provided by the SAVANAH above, who is the original author of this note. I agree with the documented assessment and plan, with the following changes: none Objective - Vital Signs Vital signs: Vital Signs Temp 97.8 F 02/08/23 08:28 Pulse 64 02/08/23 08:28 Resp 16 02/08/23 08:28 BP 124/68 02/08/23 08:28 Pulse Ox 100 02/08/23 08:28 FiO2 Intake & Output 02/07/23 02/08/23 02/08/23 18:59 06:59 18:59 Output Total 300 Balance -300 Weight 43.091 kg Output: Urine 300 Other: # Voids 2 - Labs CBC & Chem 7: 02/08/23 07:07 02/08/23 07:07 Labs: Abnormal Lab Results - Last 24 Hours (Table) 02/07/23 02/07/23 02/07/23 Range/Units 17:53 17:53 17:53 Hgb 11.3 L D (11.4-16.0) gm/dL RDW 18.7 H (11.5-15.5) % APTT (22.0-30.0) sec D-Dimer 3.03 H (<0.60) mg/L FEU Sodium 133 L (137-145) mmol/L Chloride 93 L (98-107) mmol/L Carbon Dioxide 32 H (22-30) mmol/L BUN 21 H (7-17) mg/dL Creatinine 1.50 H (0.52-1.04) mg/dL AST 46 H (14-36) U/L Alkaline Phosphatase 150 H (38-126) U/L 02/08/23 02/08/23 Range/Units 07:07 07:07 Hgb 11.0 L (11.4-16.0) gm/dL RDW 18.7 H (11.5-15.5) % APTT 77.3 H (22.0-30.0) sec D-Dimer (<0.60) mg/L FEU Sodium (137-145) mmol/L Chloride (98-107) mmol/L Carbon Dioxide (22-30) mmol/L BUN (7-17) mg/dL Creatinine (0.52-1.04) mg/dL AST (14-36) U/L Alkaline Phosphatase (38-126) U/L
[2023-02-08] MEDS: MORPHINE SULFATE 4 MG/ML SYRINGE IV PRN ×2 (17:02→21:10)
[2023-02-08] MEDS: DOXEPIN HCL 6 MG PO SCH (21:12)
[2023-02-08] MEDS ORDERED: ZOLPIDEM 5 MG TAB PO SCH (23:30)
[2023-02-09] MEDS: MORPHINE SULFATE 4 MG/ML SYRINGE IV PRN ×5 (05:25→21:24)
[2023-02-09] MEDS: LEVOTHYROXINE 100 MCG TAB PO SCH (06:53)
[2023-02-09] MEDS: PANTOPRAZOLE 40 MG TABLET PO SCH ×2 (06:53→16:50)
[2023-02-09] MEDS: MORPHINE SULFATE ER 15 MG TABLET PO SCH ×3 (07:06→22:52)
[2023-02-09] MEDS: DILTIAZEM CD 180 MG CAP.ER.24H PO SCH (09:26)
[2023-02-09] MEDS: SPIRONOLACTONE 25 MG TAB PO SCH (09:27)
[2023-02-09] MEDS: METOPROLOL TARTRATE 50 MG TAB PO SCH (09:27)
[2023-02-09] MEDS: ESCITALOPRAM 5 MG TAB PO SCH (09:27)
[2023-02-09] MEDS: SENNOSIDES 8.6 MG TAB PO SCH (09:27)
[2023-02-09] MEDS: LORATADINE 10 MG TAB PO SCH (09:27)
[2023-02-09] MEDS: AMIODARONE 200 MG TAB PO SCH (09:27)
[2023-02-09] MEDS: FOLIC ACID 1 MG TAB PO SCH (09:27)
[2023-02-09] MEDS: FERROUS SULFATE 325 MG TAB PO SCH (09:27)
[2023-02-09] MEDS: FUROSEMIDE 40 MG TAB PO SCH (09:27)
[2023-02-09] MEDS: HEPARIN SOD,PORK IN 0.45% NACL 25,000 UNIT in 0.45% NACL 1 250ML.BAG IV SCH (09:29)
[2023-02-09 09:33] LABS: Anisocytosis Slight; Basophils % (A) 1 %; Eosinophils # (A) 0.2 k/uL (0-0.7); Eosinophils % (A) 4 %; HGB 9.8 gm/dL (11.4-16.0); Hypochromasia Marked; Lymphocytes # (A) 1.5 k/uL (1.0-4.8); Lymphocytes % (A) 25 %; MCH 28.1 pg (25.0-35.0); MCHC 30.6 g/dL (31.0-37.0); MCV 91.7 fL (80.0-100.0); Mean Platelet Volume 8.5; Monocytes # (A) 0.3 k/uL (0-1.0); Monocytes % (A) 6 %; Neutrophils # (A) 3.8 k/uL (1.3-7.7); Neutrophils % (A) 64 %; Platelet Count 252 k/uL (150-450); RBC 3.49 m/uL (3.80-5.40); RDW 18.5 % (11.5-15.5); WBC 5.9 k/uL (3.8-10.6)
--- NOTE | 2023-02-09 11:03 | CDI ---
The Registered Dietitian assessment on 02/08 indicates this patient is underweight with BMI of 17.9. Based on this information and the findings below, is there an additional diagnosis that is clinically appropriate for this patient? History/Risk Factors: 77 year old female sent to ED from [facility] for pulmonary embolism. The patient has been short of breath for three weeks when she lays down. Medical History: Pulmonary embolism in October 2022, Watchman procedure October 2022, [place], Afib, CAD, CHF, COPD, Esophageal strictures and CVA. 02/07, H&P Clinical Indicators: RD Consult Assessment: Current BMI: 17.9, Hgt 5ft 1in, Wgt 43.091kg as stated by patient Calculated ideal body weight 47.627 Estimated Energy needs in Kcal 1429 1667 Estimated Protein needs in Grams/day 57 Estimated fluid needs mls/day 1429 Clinically underweight related to poor caloric intake and weight gain failure as evidenced By: BMI <23kg /m2 for person older than 65. Difficulty chewing /swallowing [Cite applicable ASPEN criteria listed below] Treatment: Monitor PO intake and offer alternate foods when needed, Monitor supplement intake. Supplements: Ensure Plus High Protein TID Is there an additional diagnosis that is clinically appropriate for this patient? [x] Moderate Protein-Calorie Malnutrition [ ] Severe Protein-Calorie Malnutrition [ ] No additional diagnosis/Not clinically significant [ ] Other condition, please specify [ ] Unable to Determine In responding to this query, please exercise your independent professional judgment. The [facility] Coding Staff and Clinical Documentation Specialists appreciate your assistance in clarifying documentation, maintaining compliance with coding guidelines, accurately documenting patients condition and capturing severity of illness. The fact that a question is asked does not imply that any particular answer is desired or expected. Communication forms are a method of clarifying documentation and are made part of the Legal Health Record. Thank you in advance for your clarification. Last Reviewed October 2022 Reference: Using the ASPEN Guidelines, Undernutrition (Malnutrition) is characterized by at least two of the following six findings. The severity can be determined based on the criteria listed below. Malnutrition Characteristics for Moderate and Severe Malnutrition Type of Malnutrition Acute Illness or Injury Chronic Illness Degree of Malnutrition Non-severe (moderate) Malnutrition Severe Malnutrition Non-severe (moderate) Malnutrition Severe Malnutrition Energy Intake <75% for >7 days = 50% for = 5 days <75% for = 1 month =75% for = 1 month Weight Loss 1-2% in one week, 5% in 1 month, 7.5% in 3 months 2% in one week, >5% in 1 month, >7.5% in 3 months 5% in one month, 7.5% in 3 months, 10% in 6 months, 20% in 1 year >5% in one month, >7.5% in 3 months, >10% in 6 months, >20% in 1 year Body Fat Wasting Mild Moderate Mild Severe Muscle Wasting Mild Moderate Mild Severe Presence of Edema Mild Moderate to Severe Mild Severe Stock Feeder Strength Not applicable Measurably Reduced Not applicable Measurably Reduced Source: Jimmy HintonV, Sarath P, Jones G, et al. Consensus statement: Academy of Nutrition and Dietetics and [place] Society for Parenteral and Enteral Nutrition: characteristics recommended for the identification and documentation of adult malnutrition (undernutrition).JOSE JUAN Hinton Parenter Enteral Nutr. 2012;36(3):275-283. (Template Last Revised: October 2022) MTDD
--- NOTE | 2023-02-09 15:56 | P.PN ---
Subjective Progress Note Date: 02/09/23 Principal diagnosis: Shortness of breath. I am seeing this patient in new consultation today 02/08/2023 after she was asked to come to the emergency room for abnormal CT at a follow-up appointment. Patient is a 77-year-old white female with past medical history significant for atrial fibrillation, watch band procedure done on 11/01/2022 at [facility], history of CVA/TIA, coronary artery disease, heart failure, previous pacemaker implant patient, esophageal strictures, and multiple other comorbidities. Her PCP is Dr. Mendes. Patient was recently treated here at [facility] for a left upper lung segmental pulmonary embolism back in 11/14/2022. She is ALLERGIC to Eliquis and Xarelto. She breaks out in hives. Patient was placed on Lovenox 40 mg twice a day. Subsequently, the patient had multiple falls and sustained a right hip fracture in December of this year. On 12/27/2022 she had closed reduction IM nailing of the right hip. She did resume her Lovenox after her procedure. A follow-up chest CTA on 12/31/2022 did not show any acute pulmonary embolism. Patient states that she was directed to stop taking her Lovenox on Sunday. Patient was scheduled to a follow-up appointment and CAT scan this week regarding her previous Watchman procedure in October. She states that she was called, and told to go to the emergency room. Only the re port is available. Apparently, the patient has developed new lobar segmental and subsegmental pulmonary emboli involving the right upper lobe, right middle lobe, right lower, and left lower lobes. There were chronic findings of right heart dysfunction which limited the ability to assess for CT evidence of associated superimposed acute right heart strain. The pulmonary artery was slightly larger than prior CT. There were also postoperative findings of a left atrial appendage occluder device and appendage distal to the device not opacified, likely related to combination of thrombus or epithelialization. Patient is currently sitting up in bed, on 2 L/m nasal cannula, in no acute distress. She actually denies any shortness breath, chest pain, heart palpitations. She does have increased lower extremity swelling. Hemodynamically, the patient is stable. Blood pressure is normotensive. Heart rate appears normal sinus on the bedside monitor. No ECG evidence of right sided heart strain. Initial 2 troponins are not elevated. NT proBNP was 3220. Echocardiogram is pending. Patient has been rather nonmobile since her recent hip surgery. She gets around with a wheelchair. She states that she can only take a couple steps with a walker. Bilateral lower extremity venous Doppler ne gative for DVTs. Patient is going to be started on high intensity heparin per protocol. CBC from admission shows a WBC count of 5.7, hemoglobin 11.3, hematocrit 36, platelets 332. Baseline PTT 24. INR 1. BMP shows a sodium of 133, potassium 3.7, chloride 93, serum bicarbonate 32, BUN 21, creatinine 1.5, glucose 93. Patient is going to be admitted to the cardiac step down unit once bed available. Progress note dated 02/09/2023. 77-year-old female with history of recurrent pulmonary embolus some. She has a history of atrial fibrillation, coronary disease, CVA, heart failure, esophageal stricture, among other medical problems. More recently, the patient was discovered to have a recurrent pulmonary embolism. The patient was previously treated for pulmonary embolus some, back in August of this year. She completed 3 months of therapy. At that time, she was on Lovenox, 40 mg subcu twice a day. She apparently was intolerant of the factor X a inhibitors. Currently, she is doing well. She seen in 362. She is on saline at 20 mL an hour, IV heparin, and no supplemental oxygen. White count 5.9, hemoglobin 9.8, hematocrit 32, and platelet count normal. PTT was 52. No additional labs from today. Chest x-ray shows only chronic changes. Venous Dopplers of the bilateral lower extremities were negative. Objective - Vital Signs Vital signs: Vital Signs Temp 96.2 F L 02/09/23 12:35 Pulse 57 L 02/09/23 12:35 Resp 17 02/09/23 12:35 BP 109/53 02/09/23 12:35 Pulse Ox 94 L 02/09/23 12:35 FiO2 Intake & Output 02/08/23 02/09/23 02/09/23 18:59 06:59 18:59 Intake Total 240 199.588 Balance 240 199.588 Weight 43.091 kg 43.4 kg Intake: Intake, IV Titration 199.588 Amount Heparin Sod,Pork in 0.45% 199.588 NaCl 25,000 unit In 0.45 % NaCl 1 250ml.bag @ 18 UNITS/KG/HR 7.756 mls/hr IV .Q24H INOCENCIO Rx#: [id number] Oral 240 0 Other: # Voids 1 1 - Exam No acute distress, oriented 3. No respiratory distress. Currently on room air. Saturations 95%. HEENT examination is grossly unremarkable. Neck supple. Full range of motion. No adenopathy thyromegaly or neck vein distention. Cardiovascular examination reveals regular rhythm rate. S1-S2 normal. No S3 or S4. No discernible murmur noted. Heart rate 57 bpm. Lungs reveal clear breath sounds. Breath sounds are equal bilaterally. No adventitious lung sounds including wheezes rhonchi or crackles. Abdomen soft bowel sounds are heard. No masses or tenderness. Extremities are intact. No cyanosis clubbing or edema. Skin is without rash or lesion. Neurologic examination is brief but nonfocal. - Labs CBC & Chem 7: 02/09/23 08:29 02/08/23 07:07 Labs: Abnormal Lab Results - Last 24 Hours (Table) 02/09/23 02/09/23 Range/Units 08:29 08:29 RBC 3.49 L (3.80-5.40) m/uL Hgb 9.8 L (11.4-16.0) gm/dL Hct 32.0 L (34.0-46.0) % MCHC 30.6 L (31.0-37.0) g/dL RDW 18.5 H (11.5-15.5) % APTT 52.0 H (22.0-30.0) sec Assessment and Plan Assessment: Recurrent acute pulmonary embolism, based on chest CTA report which indicates new lobar segmental and subsegmental pulmonary emboli involving the right upper lobe, right middle lobe, right lower, and left lower lobes. There were chronic findings of right heart dysfunction which limited the ability to assess for CT evidence of associated superimposed acute right heart strain. The pulmonary artery was slightly larger than prior CT. There were also postoperative findings of a left atrial appendage occlusion device. Acute hypoxemic failure, currently on 2 L/min nasal cannula. Atrial fibrillation, with controlled ventricular rate . She is reportedly ALLERGIC to both Xarelto and Eliquis. She is status post Watchman procedure recently performed on November 01, 2022. Acute kidney injury. History of right hip fracture, status post closed reduction and IM nailing of the right hip on December 27, 2022. History of CVA/TIA. History of coronary artery disease. History of heart failure with preserved ejection fraction. Benign essential hypertension. History of pacemaker implementation. Fibromyalgia. COPD, stable. Hypothyroidism. History of esophageal strictures, status post dilation.. History of left-sided femur fracture. Plan: Plan dated 02/09/2023. I think, the patient could be started back on Lovenox, and 40 mg subcu twice a day. She is currently on IV heparin. She's on room air. She denies any shortness of breath or difficulty breathing. She's getting saline at 20 mL an hour. I've asked her to follow-up with me after discharge. No additional recommendations are made. She'll need a follow-up CT angiogram about 8-10 weeks after this initial CT angiogram. Prognosis is guarded. Time with Patient: Less than 30
--- NOTE | 2023-02-09 16:23 | P.PN ---
Subjective Progress Note Date: 02/09/23 Hospital course: Patient is a very pleasant 77-year-old female with a past medical history of atrial fibrillation status post cardiac ablation's and watchman's device placement, history of recent PE previously on anticoagulation with Lovenox, CAD with stents, history of recurrent syncopal episodes resulting from tachybradycardia syndrome status post pacemaker placement,HFpEF, hypertension, hyperlipidemia, CVA/TIA, previous GI bleed, hypothyroidism, and esophageal stricture status post multiple surgical esophageal dilation procedures. Patient was sent for follow-up outpatient CT secondary to recent placement of watchman's device and was reportedly found to have multiple pulmonary emboli and sent to the emergency department for further evaluation and admission to the hospital. CT angiogram from outside facility reportedly stating lobar, segmental, and subsegmental pulmonary emboli involving the right upper and right middle lobe with findings concerning for right heart dysfunction unable to rule out right heart strain. Upon arrival, patient was found to have blood pressure 110/66, heart rate 63, respiratory rate 18, temp 98.0F, and SpO2 of 97% on room air. EKG was completed showing sinus bradycardia at 59 bpm. Echocardiogram completed showing preserved EF of 55-60% with moderate right atrial dilation and moderate to severe tricuspid regurgitation. Labs completed and reviewed. CBC showing normocytic anemia with hemoglobin stable at 11.3. Coagulation profile normal findings with the exception of elevated d-dimer of 3.03. BMP revealing hyponatremia with sodium of 133, hypochloremia with chloride of 93, and hypercarbia with bicarb is 32. Renal function elevated with BUN of 21 and creatinine of 1.50 with GFR of 34, baseline creatinine is 1.0. Liver profile showing slightly elevated AST of 46 and alkaline phosphatase of 150. Troponin was negative at less than 0.012. BMP 3220. Bilateral lower extremity Dopplers were completed negative for DVTs. Patient was started on high intensity heparin infusion and 18 units/Kg/hr for treatment of pulmonary emboli. Patient was admitted under our services with consultation to pulmonology. Hematology/oncol ogy was also consulted secondary to recurrent and multiple PEs with patient's allergies to multiple factor XA inhibitors. Patient was evaluated by system engineer recommending continuation of Lovenox as PEs have been provoked .Hematology also evaluating patient and in agreement with pulmonology. Plan is for discharge home on Lovenox 40 units subcu twice daily for the next 90 days. Prescription sent and called and updated Dr. Mendes on patient pending discharge. Patient's medications must be delivered to home and therefore patient to remain hospitalized overnight she received first dose of Lovenox as well as second dose tomorrow morning and plan for discharge. Physical exam: Vital signs reviewed and stable. General: Nontoxic, no distress and appears stated age. Derm: Skin warm and dry, normal coloration for ethnicity. Head: Atraumatic, normocephalic and symmetric. Eyes: EOMs intact, no lid lag, and anicteric sclera Mouth: no lip lesions, mucus membranes moist Cardiovascular: regular rate and rhythm with normal S1S2, systolic murmur, positive posterior tibial pulses bilaterally, and cap refill < 2 seconds. Lungs: Respirations even, regular, and unlabored Lungs CTA bilaterally, no rhonchi, no rales, no wheezing, and no accessory muscle usage. Abdominal: soft, nontender to palpation, no guarding, no appreciable organomegaly Ext: ROM intact. No gross muscle atrophy, no edema, no contractures Neuro: Speech clear, face symmetrical and CN II-XII grossly intact with no noted focal neuro deficits Psych: Alert and oriented to person, place, time, and situation. Appropriate and pleasant affect. Assessment and Plan of Care: Recurrent and multiple pulmonary emboli to lobar, segmental, and subsegmental regions involving right upper, middle, and lower lobes as well as left lower lobe. HFpEF Paroxysmal atrial fibrillation History of CAD with stents History of tachybradycardia syndrome status post pacemaker placement Hypertension Hyperlipidemia Hypothyroidism History of esophageal stricture status post multiple surgeries for esophageal dilation -Discussed with pharmacist, Alexi, heparin to be discontinued at 9 PM and patient received first Lovenox dose immediately following. -Hematology/oncology consulted secondary to recurrent and multiple PEs with patient's allergies to multiple factor XA inhibitors, Reviewed documentation in chart and discussed plan of care with oncology/hematology INCOME TAX EXPERT.. -Pulmonology following, discussed plan of care with system engineer and pulmonary INCOME TAX EXPERT. -Patient to remain on continuous telemetry monitoring. -Symptomatic care and pain management. -Patient was successfully weaned from oxygen and maintaining SPO2 > 92% on room air. -Reviewed echocardiogram report, Echocardiogram completed showing preserved EF of 55-60% with moderate right atrial dilation and moderate to severe tricuspid regurgitation. Acute kidney injury, resolved after IV fluid hydration. Hypokalemia, replaced Hypomagnesemia, replaced -Potassium 3.3 patient received K-Lyte 40 mEq. -Magnesium was 1.6 order magnesium sulfate 2 g IVPB. DVT prophylaxis: Full code Discussed with: Patient, RN, system engineer, pulmonary and PE, and hematology INCOME TAX EXPERT Anticipated discharge date: Tomorrow morning after Lovenox dose Anticipated discharge place: Home with home care Patient was seen independently by Nurse Pracitioner. This document was prepared using [employer] dictation software. Please allow for errors in charge poster, while rare they do occur. I reviewed the documentation as provided by the SAVANAH above, who is the original author of this note. I agree with the documented assessment and plan, with the following changes: none Objective - Vital Signs Vital signs: Vital Signs Temp 98.2 F 02/08/23 20:00 Pulse 68 02/09/23 04:00 Resp 16 02/09/23 04:00 BP 117/63 02/09/23 04:00 Pulse Ox 97 02/09/23 04:00 FiO2 Intake & Output 02/08/23 02/09/23 02/09/23 18:59 06:59 18:59 Intake Total 240 Balance 240 Weight 43.091 kg 43.4 kg Intake: Oral 240 Other: # Voids 1 - Labs CBC & Chem 7: 02/09/23 08:29 02/08/23 07:07 Labs: Abnormal Lab Results - Last 24 Hours (Table) 02/08/23 02/08/23 02/08/23 Range/Units 07:07 07:07 09:45 Hgb 11.0 L (11.4-16.0) gm/dL RDW 18.7 H (11.5-15.5) % APTT (22.0-30.0) sec Potassium 3.3 L (3.5-5.1) mmol/L Creatinine 1.05 H (0.52-1.04) mg/dL Ur Leukocyte Esterase Small H (Negative) Hyaline Casts 6 H (0-2) /lpf Urine Mucus Rare H (None) /hpf 02/08/23 Range/Units 14:29 Hgb (11.4-16.0) gm/dL RDW (11.5-15.5) % APTT 74.4 H (22.0-30.0) sec Potassium (3.5-5.1) mmol/L Creatinine (0.52-1.04) mg/dL Ur Leukocyte Esterase (Negative) Hyaline Casts (0-2) /lpf Urine Mucus (None) /hpf
[2023-02-09] MEDS: MAGNESIUM SULFATE-D5W PMX 1 GM in DEXTROSE/WATER 1 100ML.BAG IVPB SCH ×2 (16:50→17:48)
[2023-02-09 17:20] VITALS: RESP 18
[2023-02-09] MEDS: DOXEPIN HCL 6 MG PO SCH (19:37)
[2023-02-09] MEDS: ENOXAPARIN 40 MG/0.4 ML SYRINGE SQ SCH (19:40)
--- NOTE | 2023-02-09 21:02 | P.CONS ---
History of Present Illness - Reason for Consult Consult date: 02/09/23 recurrent PEs Requesting physician: Osman Smith - Chief Complaint SOB, PE - History of Present Illness Ms. Marquez is a pleasant 76-year-old female we a significant history of a fib, watchman's procedure (10/2022), and PE with a history of allergy to eliquis and Xarelto. Consult was placed for acute pulmonary embolism. She is a patient of Dr. Reginaldo Kellogg. We first seen patient on consult in October 2022, for acute PE. Patient has missed last 2 clinic f/u appts due to repeat admissions and rehab. Patient was started on eliquis approx 14-15 months ago for a-fib, 3 days on it she ended up with severe weeping hives on her back. This was discontinued. She was then started on Xarelto and the hives worsened so patient was not on any anticoagulation for almost a year, 2 weeks s/p watchman procedure she was dx with acute PE. Pt was started on lovenox BID during hospitalization but per pt, she has been on lovenox 40mg once daily since. Patient reports she stopped Lovenox 2 days prior to admission and was sent for CTA chest for reevaluation and was found to have acute PE at which time she was referred to the emergency room for further evaluation. Heparin drip started. Of note patient underwent right hip replacement on 12/27/2022 and was hospitalized for 1 week and was off Lovenox for 5 days prior to procedure but was restarted on prophylactic dose lovenox. Patient reports she has been experiencing shortness of breath for the last 3 weeks with inspirational chest pain. Upon admission chest x-ray revealed chronic changes without evidence for acute pulmonary disease. Bilateral lower extremity Dopplers were negative for DVT. Echocardiogram showed limited study for PE. Right ventricular enlargement with a least 3+ tricuspid regurg. Preserved left ventricular size and function. Pulmonology following. Review of Systems 10 point ROS is negative except as stated in the HPI Past Medical History Past Medical History: Atrial Fibrillation, Blood Disorder, Coronary Artery Disease (CAD), Chest Pain / Angina, Heart Failure, COPD, CVA/TIA, Fibromyalgia, GERD/Reflux, GI Bleed, Hypertension, Myocardial Infarction (GA), Musculoskeletal Disorder, Osteoarthritis (OA), Thyroid Disorder Additional Past Medical History / Comment(s): Pacemaker for Syncope/Tachybrady Syndrome. Hx RHEUMATIC FEVER. Heart murmur, chronic back and bilateral shoulder pain. SEVERE OSTEOPROSIS, Vertigo, Degenerative Joint Disease, GI ulcers, esophagitis/esophageal stricture, partially blocked bile duct, PROBLEMS WITH SWALLOWING, "no symptoms of COPD." FALLS "Cannot lie down for long without having back pain.". Left hip open reduction internal fixation of some trochanteric comminuted femur fracture in November 2021 Last Myocardial Infarction Date:: 2002 History of Any Multi-Drug Resistant Organisms: None Reported Past Surgical History: Appendectomy, Cardiac Ablation, Cholecystectomy, Ear Surgery, Heart Catheterization, Hysterectomy, Orthopedic Surgery, Pacemaker, Tonsillectomy Additional Past Surgical History / Comment(s): ORIF LEFT LOWER ARM, HAS HARDWARE, numerous DILATATION OF ESOPHAGUS, biopsies were negative, colonoscopy, Pacemaker (ADAPTA) placed 07/07 at [facility], bilateral stapedectomies(stainless steel in both ears), Hiatal Hernia repair, inguinal and femoral hernia repairs, "cement placed in back, due to broken back/pelvis". Left Femur Surgery 12/09/21. Watchman. Past Anesthesia/Blood Transfusion Reactions: Family History of Problems w/ Anesthesia, Motion Sickness, Postoperative Nausea & Vomiting (PONV) Additional Past Anesthesia/Blood Transfusion Reaction / Comm: No problems with prior blood transfusion. BROTHER HAS PONV. Type of Cardiac Device: Permanent Pacemaker Device Placement Date:: 06/2016 Past Psychological History: No Psychological Hx Reported Additional Psychological History / Comment(s): DENIES ANY HX OF PROBLEM Smoking Status: Never smoker Past Alcohol Use History: None Reported Additional Past Alcohol Use History / Comment(s): Lives alone Past Drug Use History: None Reported - Past Family History Brother(s) Family Medical History: Cancer Additional Family Medical History / Comment(s): Throat cancer. Father Family Medical History: Pneumonia Additional Family Medical History / Comment(s): EMPHYSEMA. Mother Family Medical History: COPD, Rheumatoid Arthritis (RA) Additional Family Medical History / Comment(s): EMPHYSEMA. Medications and Allergies Home Medications Medication Instructions Recorded Confirmed Type Metoprolol Tartrate [Lopressor] 50 mg PO DAILY 10/05/20 02/07/23 History Spironolactone [Aldactone] 25 mg PO DAILY 08/04/21 02/07/23 History Pantoprazole [Protonix] 40 mg PO BID 12/27/21 02/07/23 History Amiodarone [Cordarone] 200 mg PO DAILY 02/03/22 02/07/23 History Acetaminophen [Tylenol Extra 1,000 mg PO QID PRN 09/20/22 02/07/23 History Strength] Ondansetron [Zofran] 4 mg PO Q8H PRN 09/20/22 02/07/23 History Sennosides [Senokot] 8.6 mg PO DAILY 09/20/22 02/07/23 History Triamcinolone 0.5% Cream [Kenalog 1 applic TOPICAL DAILY PRN 09/20/22 02/07/23 History 0.5% Cream] Aspirin EC [Ecotrin Low Dose] 81 mg PO DAILY 11/13/22 02/07/23 History Doxepin HCl 6 mg PO HS 11/13/22 02/07/23 History Levothyroxine Sodium [Synthroid] 100 mcg PO DAILY 11/13/22 02/07/23 History Furosemide [Lasix] 40 mg PO DAILY 12/27/22 02/07/23 History Butalb/Acetaminophen/Caffeine 1 cap PO BID PRN 01/10/23 02/07/23 History [Fioricet 50-300-40 mg Capsule] Folic Acid 1 mg PO DAILY 01/10/23 02/07/23 History dilTIAZem HCL [dilTIAZem HCL 24Hr 180 mg PO DAILY 01/10/23 02/07/23 History ER (CD)] Mupirocin 2% Oint [Bactroban 2% 1 applic TOPICAL BID PRN 01/12/23 02/07/23 History Oint] Clopidogrel [Plavix] 75 mg PO DAILY 02/07/23 02/07/23 History Desloratadine [Clarinex] 5 mg PO DAILY 02/07/23 02/07/23 History Escitalopram [Lexapro] 5 mg PO DAILY 02/07/23 02/07/23 History Ferrous Sulfate [Feosol] 325 mg PO DAILY 02/07/23 02/07/23 History Morphine Sulfate ER [Ms Contin] 15 mg PO Q8HR@0700,1500,2300 02/07/23 02/07/23 History Potassium Chloride Oral Liquid 40 meq PO BID 02/07/23 02/07/23 History Enoxaparin [Lovenox] 40 mg SQ Q12H 90 Days #180 each 02/09/23 Rx Allergies Allergy/AdvReac Type Severity Reaction Status Date / Time adhesive Allergy RASH FROM Verified 02/07/23 19:34 EKG STICKERS apixaban [From Eliquis] Allergy Rash/Hives Verified 02/07/23 19:34 celecoxib [From Celebrex] Allergy Rash/Hives Verified 02/07/23 19:34 sertraline HCl [From Zoloft] Allergy Rash/Hives Verified 02/07/23 19:34 sulfamethoxazole Allergy Anaphylaxis Verified 02/07/23 19:34 [From Bactrim] trimethoprim [From Bactrim] Allergy Anaphylaxis Verified 02/07/23 19:34 cholestyramine AdvReac DIZZY/CONFU Verified 02/07/23 19:34 SED Physical Exam Vitals: Vital Signs Temp Pulse Pulse Resp BP BP Pulse Ox 02/09/23 04:00 68 16 117/63 97 02/09/23 00:00 64 16 138/66 100 02/08/23 20:00 98.2 F 60 16 110/68 98 02/08/23 16:20 54 L 17 122/68 100 02/08/23 15:30 97.8 F 54 L 16 109/64 95 02/08/23 12:00 98.0 F 55 L 16 119/59 100 Intake and Output 02/08/23 02/09/23 02/09/23 22:59 06:59 14:59 Intake Total 240 199.588 Balance 240 199.588 Intake: Intake, IV Titration 199.588 Amount Heparin Sod,Pork in 0.45% 199.588 NaCl 25,000 unit In 0.45 % NaCl 1 250ml.bag @ 18 UNITS/KG/HR 7.756 mls/hr IV .Q24H [facility] Rx#: [id number] Oral 240 Other: # Voids 1 1 Weight 43.091 kg 43.4 kg - Constitutional General appearance: no acute distress - EENT Eyes: anicteric sclerae, EOMI ENT: hearing grossly normal - Respiratory Respiratory: bilateral: CTA - Cardiovascular Rhythm: regular Heart sounds: normal: S1, S2 Abnormal Heart Sounds: no systolic murmur, no diastolic murmur, no rub, no S3 Gallop, no S4 Gallop, no click, no other leg Peripheral Edema: absent: None - Gastrointestinal General gastrointestinal: soft, no tenderness - Integumentary Integumentary: no cyanotic - Neurologic Neurologic: CNII-XII intact - Musculoskeletal Musculoskeletal: strength equal bilaterally - Psychiatric Psychiatric: A&O x's 3, appropriate affect, intact judgment & insight Results CBC & Chem 7: 02/09/23 08:29 02/08/23 07:07 Labs: Abnormal Lab Results - Last 24 Hours (Table) 02/08/23 02/08/23 02/08/23 Range/Units 07:07 09:45 14:29 RBC (3.80-5.40) m/uL Hgb (11.4-16.0) gm/dL Hct (34.0-46.0) % MCHC (31.0-37.0) g/dL RDW (11.5-15.5) % APTT 74.4 H (22.0-30.0) sec Potassium 3.3 L (3.5-5.1) mmol/L Creatinine 1.05 H (0.52-1.04) mg/dL Ur Leukocyte Esterase Small H (Negative) Hyaline Casts 6 H (0-2) /lpf Urine Mucus Rare H (None) /hpf 02/09/23 02/09/23 Range/Units 08:29 08:29 RBC 3.49 L (3.80-5.40) m/uL Hgb 9.8 L (11.4-16.0) gm/dL Hct 32.0 L (34.0-46.0) % MCHC 30.6 L (31.0-37.0) g/dL RDW 18.5 H (11.5-15.5) % APTT 52.0 H (22.0-30.0) sec Potassium (3.5-5.1) mmol/L Creatinine (0.52-1.04) mg/dL Ur Leukocyte Esterase (Negative) Hyaline Casts (0-2) /lpf Urine Mucus (None) /hpf Comments: echo reviewed Chest x-ray: report reviewed Venous US: report reviewed Assessment and Plan (1) Pulmonary embolism Current Visit: Yes Status: Acute Priority: High Code(s): I26.99 - OTHER PULMONARY EMBOLISM WITHOUT ACUTE COR PULMONALE SNOMED Code(s): 43024210 Plan: Provoked pulmonary embolism: -Patient had watchman's procedure 11/01/22 and had subsequent PE 2 weeks after procedure. Pt was started on treatment dose lovenox BID during hospitalization and it was recommended for 3 months of full dose anticoagulation for provoked PE, but per pt, her dose was changed due to her weight and has been on lovenox 40mg once daily since. Patient reports she stopped Lovenox 2 days prior to admission and was sent for CTA chest for reevaluation at and was found to have lobar segmental, and subsegmental pulmonary emboli involving the right upper, right middle, right lower, left lower lobes, at which time she was referred to the emergency room for further evaluation. Patient underwent right hip replacement on 12/27/22 and was hospitalized for 1 week and was off Lovenox for 5 days prior to procedure but was restarted on prophylactic dose lovenox. -Documented allergies to eliquis and xarelto. Heparin drip has been started for acute PE -Spoke with IM team. PE would be considered provoked due to recent surgery and subtherapeutic dose lovenox. This would not be considered treatment failure. Recommended therapeutic dose Lovenox, 1.5mg/kg once daily or 1mg/kg BID, for minimum 3 months -F/u is in discharge plan and will provide further recommendations for anticoa gulation Pt updated on POC and is agreeable attests: I seen and examined patient, performed H&P, developed impression and plan of care. Discussed with dictator. Agree with documentation, dictated as a scribe
[2023-02-10] MEDS: MORPHINE SULFATE 4 MG/ML SYRINGE IV PRN ×2 (04:25→08:52)
[2023-02-10] MEDS: LEVOTHYROXINE 100 MCG TAB PO SCH (06:18)
[2023-02-10] MEDS: PANTOPRAZOLE 40 MG TABLET PO SCH (06:18)
[2023-02-10] MEDS: MORPHINE SULFATE ER 15 MG TABLET PO SCH (06:18)
[2023-02-10] MEDS: FOLIC ACID 1 MG TAB PO SCH (08:51)
[2023-02-10] MEDS: SPIRONOLACTONE 25 MG TAB PO SCH (08:51)
[2023-02-10] MEDS: FERROUS SULFATE 325 MG TAB PO SCH (08:51)
[2023-02-10] MEDS: LORATADINE 10 MG TAB PO SCH (08:51)
[2023-02-10] MEDS: AMIODARONE 200 MG TAB PO SCH (08:52)
[2023-02-10] MEDS: METOPROLOL TARTRATE 50 MG TAB PO SCH (08:52)
[2023-02-10] MEDS: ENOXAPARIN 40 MG/0.4 ML SYRINGE SQ SCH (08:52)
[2023-02-10] MEDS: SENNOSIDES 8.6 MG TAB PO SCH (08:52)
[2023-02-10] MEDS: ESCITALOPRAM 5 MG TAB PO SCH (08:52)
[2023-02-10] MEDS: FUROSEMIDE 40 MG TAB PO SCH (08:52)
[2023-02-10] MEDS: DILTIAZEM CD 180 MG CAP.ER.24H PO SCH (08:52)
[2023-02-10 09:16] VITALS: BP 122/70; PULSE 78; TEMP 98.2
[2023-02-10 10:07] LABS: Anisocytosis Slight; Hypochromasia Marked; MCH 28.4 pg (25.0-35.0); MCHC 30.2 g/dL (31.0-37.0); MCV 93.8 fL (80.0-100.0); Mean Platelet Volume 7.8; Platelet Count 248 k/uL (150-450); RBC 3.52 m/uL (3.80-5.40); RDW 18.5 % (11.5-15.5); WBC 5.7 k/uL (3.8-10.6)
[2023-02-10 10:17] LABS: African American GFR (CKD) 62 (>60 ml/min/1.73 sqM); Anion Gap 6 mmol/L; Blood Urea Nitrogen 16 mg/dL (7-17); Calcium 8.7 mg/dL (8.4-10.2); Carbon Dioxide 29 mmol/L (22-30); Chloride 100 mmol/L (98-107); Glucose 109 mg/dL (74-99); Magnesium 2.1 mg/dL (1.6-2.3); Non-African American GFR(CKD) 53 (>60 ml/min/1.73 sqM); Potassium 4.2 mmol/L (3.5-5.1); Sodium 135 mmol/L (137-145)
--- NOTE | 2023-02-10 10:43 | P.DS ---
Providers Date of admission: 02/07/23 21:33 Expected date of discharge: 02/10/23 Attending physician: Collins Clayton MD Consults: 02/07/23 18:17 Consult Physician Routine Consulting Provider: Shaheen Lofton Consult Reason/Comments: pulmonary embolism Do you want consulting provider notified?: Yes 02/08/23 13:03 Consult Physician Routine Consulting Provider: Reginaldo Kellogg Consult Reason/Comments: recurrent and multiple PEs, has allergies to multiple factor XA inhibitors Do you want consulting provider notified?: Yes Primary care physician: Bunny Mendes MD Hospital Course: Discharge Diagnosis: Recurrent and multiple pulmonary emboli to lobar, segmental, and subsegmental re gions involving right upper, middle, and lower lobes as well as left lower lobe. PEs appear to be provoked. Patient was started back on Lovenox 40 mg subcu twice daily and medically stable for discharge home at this time. Patient to follow-up with PCP, furrier apprentice, and clinical trial associate. HFpEF Paroxysmal atrial fibrillation History of CAD with stents History of tachybradycardia syndrome status post pacemaker placement. Hypertension. Hyperlipidemia. Hypothyroidism. History of esophageal stricture status post multiple surgeries for esophageal dilation. Acute kidney injury, resolved after IV fluid hydration. Resolved. Renal function at time of discharge showing BUN of 16, creatinine 1.03, and GFR 53. Anemia of chronic disease with history of recent GI bleed. Hemoglobin stable at 10.0 at time of discharge. Hypokalemia, resolved. Hypomagnesemia, resolved. Hospital Course: Patient is a very pleasant 77-year-old female with a past medical history of atrial fibrillation status post cardiac ablation's and watchman's device placement, history of recent PE previously on anticoagulation with Lovenox, CAD with stents, history of recurrent syncopal episodes resulting from tachybradycardia syndrome status post pacemaker placement,HFpEF, hypertension, hyperlipidemia, CVA/TIA, previous GI bleed, hypothyroidism, and esophageal stricture status post multiple surgical esophageal dilation procedures. Patient was sent for follow-up outpatient CT secondary to recent placement of watchman's device and was reportedly found to have multiple pulmonary emboli and sent to the emergency department for further evaluation and admission to the hospital. CT angiogram from outside facility reportedly stating lobar, segmental, and subsegmental pulmonary emboli involving the right upper and right middle lobe with findings concerning for right heart dysfunction unable to rule out right heart strain. Upon arrival, patient was found to have blood pressure 110/66, heart rate 63, respiratory rate 18, temp 98.0F, and SpO2 of 97% on room air. EKG was completed showing sinus bradycardia at 59 bpm. Echocardiogram completed showing preserved EF of 55-60% with moderate right atrial dilation and moderate to severe tricuspid regurgitation. Labs completed and reviewed. CBC showing normocytic anemia with hemoglobin stable at 11.3. Coagulation profile normal findings with the exception of elevated d-dimer of 3.03. BMP revealing hyponatremia with sodium of 133, hypochloremia with chloride of 93, and hypercarbia with bicarb is 32. Renal function elevated with BUN of 21 and creatinine of 1.50 with GFR of 34, baseline creatinine is 1.0. Liver profile showing slightly elevated AST of 46 and alkaline phosphatase of 150. Troponin was negative at less than 0.012. BMP 3220. Bilateral lower extremity Dopplers were completed negative for DVTs. Patient was started on high intensity heparin infusion and 18 units/Kg/hr for treatment of pulmonary emboli. Patient was admitted under our services with consultation to pulmonology. Hematology/oncology was also consulted secondary to recurrent and multiple PEs with patient's allergies to multiple factor XA inhibitors. Patient was evaluated by furrier apprentice recommending continuation of Lovenox as PEs have been provoked .Hematology also evaluating patient and in agreement with pulmonology. Plan is for discharge home on Lovenox 40 units subcu twice daily for the next 90 days. Prescription sent and called and updated Dr. Mendes on patient being medically stable for discharge. Patient received morning medications and received confirmation that medications will be delivered to patient's home today to ensure safe discharge with proper needs. Patient being discharged home with her daughter at this time and is discharged home with home care through [facility]. Patient to follow up outpatient with PCP in 1-2 days, furrier apprentice in 1 week, and clinical trial associate in 2 weeks. Physical exam: Vital signs reviewed and stable. General: Nontoxic, no distress and appears stated age. Derm: Skin warm and dry, normal coloration for ethnicity. Head: Atraumatic, normocephalic and symmetric. Eyes: EOMs intact, no lid lag, and anicteric sclera Mouth: no lip lesions, mucus membranes moist Cardiovascular: regular rate and rhythm with normal S1S2, systolic murmur, positive posterior tibial pulses bilaterally, and cap refill < 2 seconds. Lungs: Respirations even, regular, and unlabored Lungs CTA bilaterally, no rhonchi, no rales, no wheezing, and no accessory muscle usage. Abdominal: soft, nontender to palpation, no guarding, no appreciable organomegaly Ext: ROM intact. No gross muscle atrophy, no edema, no contractures Neuro: Speech clear, face symmetrical and CN II-XII grossly intact with no noted focal neuro deficits Psych: Alert and oriented to person, place, time, and situation. Appropriate and pleasant affect. A total of 35 minutes of time were spent preparing this complex discharge summary. Pt was discharged on 02/10/23 at 10:40 AM. Patient was seen independently by Nurse Practitioner. This document was prepared using [employer] dictation software. Please allow for errors in technical system analyst while rare they do occur. Osman Smith NP rendered care for this patient independently, reviewed the fin dings and plan as documented in the note above. I did not physically speak with or examine the patient on this date. Patient Condition at Discharge: Stable Plan - Discharge Summary Discharge Rx Participant: No New Discharge Prescriptions: New Enoxaparin [Lovenox] 40 mg SQ Q12H 90 Days #180 each Continue Metoprolol Tartrate [Lopressor] 50 mg PO DAILY Amiodarone [Cordarone] 200 mg PO DAILY Ondansetron [Zofran] 4 mg PO Q8H PRN PRN Reason: Nausea And Vomiting Triamcinolone 0.5% Cream [Kenalog 0.5% Cream] 1 applic TOPICAL DAILY PRN PRN Reason: Rash Acetaminophen [Tylenol Extra Strength] 1,000 mg PO QID PRN PRN Reason: Breakthrough Pain Sennosides [Senokot] 8.6 mg PO DAILY Doxepin HCl 6 mg PO HS Furosemide [Lasix] 40 mg PO DAILY dilTIAZem HCL [dilTIAZem HCL 24Hr ER (CD)] 180 mg PO DAILY Mupirocin 2% Oint [Bactroban 2% Oint] 1 applic TOPICAL BID PRN PRN Reason: back sores Desloratadine [Clarinex] 5 mg PO DAILY Spironolactone [Aldactone] 25 mg PO DAILY Pantoprazole [Protonix] 40 mg PO BID Aspirin EC [Ecotrin Low Dose] 81 mg PO DAILY Levothyroxine Sodium [Synthroid] 100 mcg PO DAILY Butalb/Acetaminophen/Caffeine [Fioricet 50-300-40 mg Capsule] 1 cap PO BID PRN PRN Reason: Migraine Headache Folic Acid 1 mg PO DAILY Morphine Sulfate ER [Ms Contin] 15 mg PO Q8HR@0700,1500,2300 Ferrous Sulfate [Iron (65 MG Elemental)] 325 mg PO DAILY Clopidogrel [Plavix] 75 mg PO DAILY Potassium Chloride Oral Liquid 40 meq PO BID Escitalopram [Lexapro] 5 mg PO DAILY Discharge Medication List Metoprolol Tartrate [Lopressor] 50 mg PO DAILY 10/05/20 [History] Spironolactone [Aldactone] 25 mg PO DAILY 08/04/21 [History] Pantoprazole [Protonix] 40 mg PO BID 12/27/21 [History] Amiodarone [Cordarone] 200 mg PO DAILY 02/03/22 [History] Acetaminophen [Tylenol Extra Strength] 1,000 mg PO QID PRN 09/20/22 [History] Ondansetron [Zofran] 4 mg PO Q8H PRN 09/20/22 [History] Sennosides [Senokot] 8.6 mg PO DAILY 09/20/22 [History] Triamcinolone 0.5% Cream [Kenalog 0.5% Cream] 1 applic TOPICAL DAILY PRN 09/20/22 [History] Aspirin EC [Ecotrin Low Dose] 81 mg PO DAILY 11/13/22 [History] Doxepin HCl 6 mg PO HS 11/13/22 [History] Levothyroxine Sodium [Synthroid] 100 mcg PO DAILY 11/13/22 [History] Furosemide [Lasix] 40 mg PO DAILY 12/27/22 [History] Butalb/Acetaminophen/Caffeine [Fioricet 50-300-40 mg Capsule] 1 cap PO BID PRN 01/10/23 [History] Folic Acid 1 mg PO DAILY 01/10/23 [History] dilTIAZem HCL [dilTIAZem HCL 24Hr ER (CD)] 180 mg PO DAILY 01/10/23 [History] Mupirocin 2% Oint [Bactroban 2% Oint] 1 applic TOPICAL BID PRN 01/12/23 [History] Clopidogrel [Plavix] 75 mg PO DAILY 02/07/23 [History] Desloratadine [Clarinex] 5 mg PO DAILY 02/07/23 [History] Escitalopram [Lexapro] 5 mg PO DAILY 02/07/23 [History] Ferrous Sulfate [Iron (65 MG Elemental)] 325 mg PO DAILY 02/07/23 [History] Morphine Sulfate ER [Ms Contin] 15 mg PO Q8HR@0700,1500,2300 02/07/23 [History] Potassium Chloride Oral Liquid 40 meq PO BID 02/07/23 [History] Enoxaparin [Lovenox] 40 mg SQ Q12H 90 Days #180 each 02/09/23 [Rx] Follow up Appointment(s)/Referral(s): Reginaldo Kellogg MD [STAFF PHYSICIAN] - 02/22/23 2:15 pm Shaheen Lofton DO [Doctor of Osteopathic Medicine] - 1 Week Bunny Mendes MD [Primary Care Provider] - 1-2 days (Office closed due to being Sunday, please call and schedule your appointment Sunday. ) Patient Instructions/Handouts: Pulmonary Embolism (DC) Activity/Diet/Wound Care/Special Instructions: Activity: As tolerated. Take breaks as needed. Diet: Heart healthy and carb consistent diet. Avoid salts, or foods with hidden salts such as canned or boxed foods and frozen dinners. Extra salt makes your heart work harder and traps the fluid in your body for longer. Special Instructions: Take all of your medications as directed and remember to keep all of your doctor's appointments and follow-up as needed. Discussed discharge with your primary care doctor, Dr. Mendes. Your home medications will be delivered to your home later today and you will need to follow up with Dr. Mendes for repeat lab draws and continued close monitoring of your hemoglobin levels and renal function. . Thank you for allowing us to participate in your care, it was truly a pleasure having you for our patient!!! Discharge Disposition: HOME WITH HOME HEALTH SERVICES
--- NOTE | 2023-02-10 12:32 | PN ---
PROGRESS NOTE SUBJECTIVE: A 77-year-old female with a history of recurrent pulmonary embolism. The patient will be started back on Lovenox 40 mg subcu twice a day. The patient has a history of atrial fibrillation, coronary artery disease, CVA, heart failure, and esophageal stricture. Currently, the patient is on room air. She is receiving saline at 20 mL an hour. She was to be discharged yesterday, but apparently they could not get the Lovenox for her at her home. She did have venous Dopplers of the bilateral lower extremities, which were negative. OBJECTIVE: CURRENT VITAL SIGNS: Include a temperature which is 97.2, pulse which is 67, respiratory rate 18, blood pressure 113/62, and a saturation on room air of 95%. GENERAL: She appears in no acute distress. HEENT: Grossly unremarkable. NECK: Supple. CARDIOVASCULAR: Reveals regular rhythm and rate. S1, S2 normal. No S3, S4, or murmur. LUNGS: Clear. Breath sounds are equal. No wheezes, rhonchi, or crackles. ABDOMEN: Soft. Bowel sounds are heard. EXTREMITIES: Intact. No cyanosis, clubbing, or edema. SKIN: Without rash. NEUROLOGIC: Brief, but nonfocal. LABORATORY DATA: Today include a white count of 5.7, hemoglobin 10, hematocrit 33, and a normal platelet count. Sodium 135, potassium 4.2, chloride 100, CO2 of 29. BUN 16, and creatinine 1.03. ASSESSMENT: 1. Recurrent acute pulmonary embolism. The patient to be started back on Lovenox, 40 mg subcu twice a day. 2. Acute hypoxemic respiratory failure, resolved. 3. Chronic atrial fibrillation. 4. Acute kidney injury. 5. History of recent right hip fracture, status post nailing in December 2022. 6. History of cerebrovascular accident. 7. History of coronary artery disease. 8. History of heart failure with preserved ejection fraction. 9. Benign essential hypertension. 10.History of pacemaker implantation. 11.Fibromyalgia. 12.Chronic obstructive pulmonary disease. 13.Hypothyroidism. 14.History of esophageal stricture. 15.Left-sided femur fracture. PLAN: The patient is doing well. IV heparin has been discontinued. She was started back on Lovenox 40 mg subcu twice a day. She could be discharged on that. She will see me in the office for followup. She will need a followup CT angiogram in about 8 to 10 weeks. Labs, x-rays, and medications are reviewed. No additional recommendations are made. Prognosis is guarded. MMODL / IJN: [id number] /
[2023-03-11] MEDS ORDERED: HEPARIN SOD,PORK IN 0.45% NACL PMX 25,000 UNIT/250 ML BAG IV ONE (01:40)
[2023-03-11] MEDS ORDERED: HEPARIN SODIUM 1,000 UN/ML (10ML VL) ONE (01:40)
== END 2023-02-10 11:42 | disposition home health service (06) | DRG 175 ==
LOC: EC 16:31 → 3SCARD 21:33 → OBSVTOIN 21:33 → 3SCARD 02-08 11:24
PROVIDERS: ADMIT Internal Medicine; ATTEND Internal Medicine
DX: I26.94 Multiple subsegmental thrombotic pulmonary emboli without acute cor pulmonale (principal); J96.01 Acute respiratory failure with hypoxia; N17.9 Acute kidney failure, unspecified; E44.0 Moderate protein-calorie malnutrition; E87.1 Hypo-osmolality and hyponatremia; I50.32 Chronic diastolic (congestive) heart failure; Z68.1 Body mass index [BMI] 19.9 or less, adult; I49.5 Sick sinus syndrome; D63.8 Anemia in other chronic diseases classified elsewhere; I48.0 Paroxysmal atrial fibrillation; E87.8 Other disorders of electrolyte and fluid balance, not elsewhere classified; I11.0 Hypertensive heart disease with heart failure; J44.9 Chronic obstructive pulmonary disease, unspecified; M79.7 Fibromyalgia; I25.10 Atherosclerotic heart disease of native coronary artery without angina pectoris; I25.2 Old myocardial infarction; I07.1 Rheumatic tricuspid insufficiency; E03.9 Hypothyroidism, unspecified; E78.5 Hyperlipidemia, unspecified; E83.42 Hypomagnesemia; E87.6 Hypokalemia; K21.9 Gastro-esophageal reflux disease without esophagitis; M80.052D Age-related osteoporosis with current pathological fracture, left femur, subsequent encounter for fracture with routine healing; M80.051D Age-related osteoporosis with current pathological fracture, right femur, subsequent encounter for fracture with routine healing; M19.90 Unspecified osteoarthritis, unspecified site; R29.6 Repeated falls; R74.01 Elevation of levels of liver transaminase levels; G89.29 Other chronic pain; M25.511 Pain in right shoulder; M25.512 Pain in left shoulder; M54.9 Dorsalgia, unspecified; Z79.82 Long term (current) use of aspirin; Z79.02 Long term (current) use of antithrombotics/antiplatelets; Z79.890 Hormone replacement therapy; Z79.891 Long term (current) use of opiate analgesic; Z79.899 Other long term (current) drug therapy; Z86.711 Personal history of pulmonary embolism; Z95.818 Presence of other cardiac implants and grafts; Z95.5 Presence of coronary angioplasty implant and graft; Z95.0 Presence of cardiac pacemaker; Z86.73 Personal history of transient ischemic attack (TIA), and cerebral infarction without residual deficits; Z96.641 Presence of right artificial hip joint; Z99.3 Dependence on wheelchair; Z71.3 Dietary counseling and surveillance; Z60.2 Problems related to living alone; Z88.6 Allergy status to analgesic agent; Z88.2 Allergy status to sulfonamides; Z88.8 Allergy status to other drugs, medicaments and biological substances
CPT/HCPCS: 36415; 71045; 80048; 80053; 81001; 83735; 83880; 84484; 85025; 85027; 85379; 85610; 85730; 93005; 93308; 93970; 96360; 96361; 99285

== ENCOUNTER 2023-04-01 06:13 | Observation (INO) | payer OTHER ==
[2023-04-01] MEDS ORDERED: HYDROmorphone 0.5 MG/0.5 ML SYRINGE IM STA (06:30)
--- NOTE | 2023-04-01 06:49 | ED ---
Fall HPI - General Chief Complaint: Fall Stated Complaint: Fall Time Seen by Provider: 04/01/23 06:17 Source: patient, EMS, RN notes reviewed Mode of arrival: EMS Limitations: no limitations - History of Present Illness Initial Comments: This is a 77-year-old female who presents to the emergency department for right shoulder pain after a fall. States that she slipped in her kitchen this morning and fell, landing on her right arm. Denies hitting her head or sustaining any loss of consciousness. She does take Lovenox for a-fib and recent PE. She did not sustain any other injuries and states that all of her weight went onto her right shoulder. She does still have sensation in the hand and arm and is able to move the hand, but is unable to move the arm due to the pain. EMS did not give her any pain medication in route. States that she takes Morphine at home for pain management. MD Complaint: fall Fall From: standing - Related Data Home Medications Medication Instructions Recorded Confirmed Metoprolol Tartrate [Lopressor] 50 mg PO DAILY 10/05/20 04/01/23 Spironolactone [Aldactone] 25 mg PO DAILY 08/04/21 04/01/23 Pantoprazole [Protonix] 40 mg PO BID 12/27/21 04/01/23 Amiodarone [Cordarone] 200 mg PO DAILY 02/03/22 04/01/23 Acetaminophen [Tylenol Extra 1,000 mg PO QID PRN 09/20/22 04/01/23 Strength] Ondansetron [Zofran] 4 mg PO Q8H PRN 09/20/22 04/01/23 Sennosides [Senokot] 8.6 mg PO DAILY 09/20/22 04/01/23 Triamcinolone 0.5% Cream [Kenalog 1 applic TOPICAL DAILY PRN 09/20/22 04/01/23 0.5% Cream] Aspirin EC [Ecotrin Low Dose] 81 mg PO DAILY 11/13/22 04/01/23 Doxepin HCl 6 mg PO HS 11/13/22 04/01/23 Levothyroxine Sodium [Synthroid] 100 mcg PO DAILY 11/13/22 04/01/23 Furosemide [Lasix] 40 mg PO DAILY 12/27/22 04/01/23 Butalb/Acetaminophen/Caffeine 1 cap PO BID PRN 01/10/23 04/01/23 [Fioricet 50-300-40 mg Capsule] Folic Acid 1 mg PO DAILY 01/10/23 04/01/23 dilTIAZem HCL [dilTIAZem HCL 24Hr 180 mg PO DAILY 01/10/23 04/01/23 ER (CD)] Mupirocin 2% Oint [Bactroban 2% 1 applic TOPICAL BID PRN 01/12/23 04/01/23 Oint] Clopidogrel [Plavix] 75 mg PO DAILY 02/07/23 04/01/23 Desloratadine [Clarinex] 5 mg PO DAILY 02/07/23 04/01/23 Escitalopram [Lexapro] 5 mg PO DAILY 02/07/23 04/01/23 Ferrous Sulfate [Iron (65 MG 325 mg PO DAILY 02/07/23 04/01/23 Elemental)] Morphine Sulfate ER [Ms Contin] 15 mg PO Q8HR@0700,1500,2300 02/07/23 04/01/23 Potassium Chloride Oral Liquid 40 meq PO BID 02/07/23 04/01/23 Lidocaine 5% Patch [Lidoderm] 1 patch TOPICAL BID 04/01/23 04/01/23 Loperamide 1mg/7.5ml Liquid 1 - 2 mg PO TID PRN MDD 30 ml 04/01/23 04/01/23 hydrOXYzine pamoate [hydrOXYzine 25 mg PO Q6H PRN 04/01/23 04/01/23 PAMOATE] Previous Rx's Medication Instructions Recorded Enoxaparin [Lovenox] 40 mg SQ Q12H 90 Days #180 each 02/09/23 Allergies Allergy/AdvReac Type Severity Reaction Status Date / Time adhesive Allergy RASH FROM Verified 04/01/23 13:43 EKG STICKERS apixaban [From Eliquis] Allergy Rash/Hives Verified 04/01/23 13:43 celecoxib [From Celebrex] Allergy Rash/Hives Verified 04/01/23 13:43 sertraline HCl [From Zoloft] Allergy Rash/Hives Verified 04/01/23 13:43 sulfamethoxazole Allergy Anaphylaxis Verified 04/01/23 13:43 [From Bactrim] trimethoprim [From Bactrim] Allergy Anaphylaxis Verified 04/01/23 13:43 cholestyramine AdvReac DIZZY/CONFU Verified 04/01/23 13:43 SED Review of Systems ROS Statement: Those systems with pertinent positive or pertinent negative responses have been documented in the HPI. ROS Other: All systems not noted in ROS Statement are negative. Past Medical History Past Medical History: Atrial Fibrillation, Blood Disorder, Coronary Artery Disease (CAD), Chest Pain / Angina, Heart Failure, COPD, CVA/TIA, Fibromyalgia, GERD/Reflux, GI Bleed, Hypertension, Myocardial Infarction (LA), Musculoskeletal Disorder, Osteoarthritis (OA), Thyroid Disorder Additional Past Medical History / Comment(s): Pacemaker for Syncope/Tachybrady Syndrome. Hx RHEUMATIC FEVER. Heart murmur, chronic back and bilateral shoulder pain. SEVERE OSTEOPROSIS, Vertigo, Degenerative Joint Disease, GI ulcers, esophagitis/esophageal stricture, partially blocked bile duct, PROBLEMS WITH SWALLOWING, "no symptoms of COPD." FALLS "Cannot lie down for long without having back pain.". Left hip open reduction internal fixation of some trochanteric comminuted femur fracture in November 2021 Last Myocardial Infarction Date:: 2002 History of Any Multi-Drug Resistant Organisms: None Reported Past Surgical History: Appendectomy, Cardiac Ablation, Cholecystectomy, Ear Surgery, Heart Catheterization, Hysterectomy, Orthopedic Surgery, Pacemaker, Tonsillectomy Additional Past Surgical History / Comment(s): ORIF LEFT LOWER ARM, HAS HARDWARE, numerous DILATATION OF ESOPHAGUS, biopsies were negative, colonoscopy, Pacemaker (ADAPTA) placed 07/07 at [facility], bilateral stapedectomies(stainless steel in both ears), Hiatal Hernia repair, inguinal and femoral hernia repairs, "cement placed in back, due to broken back/pelvis". Left Femur Surgery 12/09/21. Watchman. Past Anesthesia/Blood Transfusion Reactions: Family History of Problems w/ Anesthesia, Motion Sickness, Postoperative Nausea & Vomiting (PONV) Additional Past Anesthesia/Blood Transfusion Reaction / Comment(s): No problems with prior blood transfusion. BROTHER HAS PONV. Type of Cardiac Device: Permanent Pacemaker Device Placement Date:: 06/2016 Past Psychological History: No Psychological Hx Reported Smoking Status: Never smoker Past Alcohol Use History: None Reported Past Drug Use History: None Reported - Past Family History Brother(s) Family Medical History: Cancer Additional Family Medical History / Comment(s): Throat cancer. Father Family Medical History: Pneumonia Additional Family Medical History / Comment(s): EMPHYSEMA. Mother Family Medical History: COPD, Rheumatoid Arthritis (RA) Additional Family Medical History / Comment(s): EMPHYSEMA. General Exam Limitations: no limitations General appearance: alert, in distress Head exam: Present: atraumatic, normocephalic, normal inspection Respiratory exam: Present: normal lung sounds bilaterally. Absent: respiratory distress, wheezes, rales, rhonchi, stridor Cardiovascular Exam: Present: regular rate, normal rhythm, normal heart sounds. Absent: systolic murmur, diastolic murmur, rubs, gallop, clicks Extremities exam: Present: other (Deformity to the right shoulder with arm held bent at 90 degrees. 2+ radial pulses. 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 Absent: rash Course Vital Signs 04/01/23 04/01/23 04/01/23 06:14 07:19 08:58 Temperature 98.5 F Pulse Rate 115 H 114 H 106 H Respiratory 17 20 20 Rate Blood Pressure 125/75 133/97 143/90 O2 Sat by Pulse 93 L 96 98 Oximetry 04/01/23 04/01/23 04/01/23 10:00 12:00 15:49 Temperature Pulse Rate 106 H 73 69 Respiratory 20 20 18 Rate Blood Pressure 148/96 116/65 97/77 O2 Sat by Pulse 100 96 97 Oximetry 04/01/23 16:55 Temperature Pulse Rate 104 H Respiratory 18 Rate Blood Pressure 99/73 O2 Sat by Pulse 96 Oximetry Medical Decision Making - Medical Decision Making This is a 77-year-old female who presents to the emergency department for right shoulder pain after a fall. Was pt. sent in by a medical professional or institution? @ -No Did you speak to anyone other than the patient for history? @ -No Did you review nursing and triage notes? @ -Yes, and I agree, it is accurate with regards to the patient's symptoms. Were old charts reviewed? @ -No Differential Diagnosis? @ -Differential Musculoskeletal: Muscular strain, contusion, ligament sprain, fracture, arthritis, septic arthritis, bursitis, cellulitis, muscle spasm, nerve compression, DVT, arterial occlusion, herpes zoster, electrolyte abnormality, tumor.... This is not meant to be in all inclusive list EKG interpreted by me (3pts min.)? @ -Not obtained X-rays interpreted by me (1pt min.)? @ -X-ray of the right shoulder, humerus, and chest obtained. My interpretation identifies a surgical neck fracture of the right proximal humerus without evidence of any rib fractures. CT interpreted by me (1pt min.)? @ -Not obtained U/S interpreted by me (1pt. min.)? @ -Not obtained What testing was considered but not performed? (CT, X-rays, U/S, labs)? Why? @ -None What meds were considered but not given? Why? @ -None Did you discuss the management of the patient with other professionals? @ -Cindy, nurse practitioner at [facility], who requested the patient be admitted for observation because she lives alone and is essentially wheelchair dependent. States that she'll try to set up physical therapy for her in the morning. Did you reconcile home meds? @ -No Was smoking cessation discussed for >3mins.? @ -No Was critical care preformed (if so, how long)? @ -No Were there social determinants of health that impacted care today? How? (Homelessness, low income, unemployed, alcoholism, drug addiction, transportation, low edu. Level, literacy, decrease access to med. care, senior living, rehab)? @ -No Was there de-escalation of care discussed even if they declined? (Discuss DNR or withdrawal of care, Hospice)? @ -No What co-morbidities impacted this encounter? (DM, HTN, Smoking, COPD, CAD, Cancer, CVA, Hep., AIDS, mental health diagnosis, sleep apnea, morbid obesity)? @ -Atrial fibrillation, fibromyalgia, osteoarthritis Was patient admitted / discharged? @ -Admitted. X-ray of the right shoulder, humerus, and chest obtained. This demonstrates a 2 part surgical neck fracture of the right proximal humerus with some impaction and displacement. No other acute process was identified. She is neurovascularly intact, with strong pulses and intact sensation. Her symptoms were well controlled in the emergency department and she was placed in a right arm sling. We had planned on discharging the patient home with an arm sling and orthopedic follow-up. However, I received a call from Cindy, nurse practitioner with [facility]. She advised that the patient lives alone and is wheelchair dependent, and she is concerned about her being able to care for herself at home in her current state. She requested admission for observation so she can set up physical therapy for the patient tomorrow. Dr. Rich, ED attending, discussed the case with Dr. Gregg, orthopedics, who is agreeable to admission. He requested a computed tomography scan of the shoulder. This was ordered with results pending at the time of admission. We did also obtain lab work prior to admission, also with results pending. Medicine consulted for medical management. Undiagnosed new problem with uncertain prognosis? @ -None Drug Therapy requiring intensive monitoring for toxicity (Heparin, Nitro, Insulin, Cardizem)? @ -None Were any procedures done? @ -None Diagnosis/symptom? @ -Right proximal humerus fracture, fall Acute, or Chronic, or Acute on Chronic? @ -Acute Uncomplicated (without systemic symptoms) or Complicated (systemic symptoms)? @ -Uncomplicated Side effects of treatment? @ -None Exacerbation, Progression, or Severe Exacerbation] @ -Not applicable Poses a threat to life or bodily function? @ -This will limit her ability to use her right arm This case was discussed in detail with the attending ED physician, Dr. Rich. Presentation, findings, and treatment plan discussed in detail as well. - Lab Data Result diagrams: 04/01/23 10:46 04/01/23 10:46 - Radiology Data Radiology results: report reviewed, image reviewed Disposition Clinical Impression: Fall, Closed fracture of right proximal humerus Disposition: ADMITTED IP TO THIS HOSP Is patient prescribed a controlled substance at d/c from ED?: No
[2023-04-01] MEDS ORDERED: KETOROLAC 15 MG/ML 1 ML VIAL IM STA (08:13)
[2023-04-01] MEDS ORDERED: HYDROmorphone 1 MG/ML 1 ML SYRINGE IM STA (08:13)
--- NOTE | 2023-04-01 08:29 | XR ---
EXAMINATION TYPE: XR chest 1V, XR humerus 2 views RT, XR shoulder complete 3 views RT DATE OF EXAM: 04/01/2023 COMPARISON: 02/07/2023 HISTORY: 77-year-old female with pain after fall FINDINGS: CHEST: Patient is markedly obliqued towards the right and rightward rotated as well. Left anterior chest wal l pacemaker generator with right atrial and right ventricular leads. Heart mildly enlarged. Mild hyperinflation. Some strandy atelectasis suggested throughout the right l chuy. No praneeth consolidation or pleural effusion seen Right shoulder: There is an impacted surgical neck of the proximal right humerus. Impaction of approximately 1.9 cm, anterior and lateral displacement of 1.0 cm, and some anterior apex angulation. Smaller comminuted fr acture fragments are also present. The glenohumeral joint appears intact. Mild degenerative joint spa ce narrowing right AC joint. Right humerus: There is osteopenia. No additional acute fracture of the more mid to distal humerus is identified. Mu scle atrophy. IMPRESSION: 1. Chest: Oblique and rotated exam. COPD. Some strandy atelectasis. No definite acute cardiopulmonary process. 2. Right shoulder: 2 part surgical neck fracture of the proximal right humerus impacted by approximat deni 1.9 cm. Some anterior and lateral displacement of 1.0 cm and some anterior apex angulation as wel l. 3. Right humerus: No additional acute fracture identified.
[2023-04-01] MEDS ORDERED: ACETAMINOPHEN TAB 325 MG TAB PO PRN (10:33)
[2023-04-01] MEDS ORDERED: NALOXONE 0.4 MG/ML 1 ML VIAL IV PRN (10:33)
--- NOTE | 2023-04-01 11:02 | CT ---
EXAMINATION TYPE: CT shoulder RT wo con DATE OF EXAM: 04/01/2023 COMPARISON: Shoulder radiograph earlier today HISTORY: 77-year-old female with pain after fall, right shoulder pain TECHNIQUE: Contiguous axial scanning of the right shoulder without IV contrast. Coronal and sagittal reconstructions performed. 3-D reconstructions generated on a dedicated workstation. CT DLP: 259.3 mGycm Automated exposure control for dose reduction was used. FINDINGS: There is a mildly comminuted surgical neck fracture. There is impaction of approximately 1.4 cm and a nterior displacement of 1.6 cm. Anterior apex angulation of approximately 45 degrees. The glenohumera l joint and AC joints remain intact. Overlying soft tissue swelling. IMPRESSION: IMPACTED AND COMMINUTED TWO-PART SURGICAL NECK FRACTURE OF THE PROXIMAL HUMERUS. There is impaction o f 1.4 cm and anterior displacement of 1.6 cm. Anterior apex angulation of approximately 45 degrees.
[2023-04-01 11:11] LABS: Anisocytosis Slight; Basophils # (A) 0.1 k/uL (0-0.2); Basophils % (A) 1 %; Eosinophils # (A) 0.1 k/uL (0-0.7); Eosinophils % (A) 1 %; HCT 40.8 % (34.0-46.0); HGB 12.9 gm/dL (11.4-16.0); Hypochromasia Moderate; Lymphocytes # (A) 0.8 k/uL (1.0-4.8); Lymphocytes % (A) 8 %; MCH 30.4 pg (25.0-35.0); MCHC 31.6 g/dL (31.0-37.0); MCV 96.4 fL (80.0-100.0); Macrocytosis Slight; Mean Platelet Volume 7.8; Monocytes # (A) 0.3 k/uL (0-1.0); Monocytes % (A) 3 %; Neutrophils # (A) 9.1 k/uL (1.3-7.7); Neutrophils % (A) 87 %; Platelet Count 227 k/uL (150-450); RBC 4.24 m/uL (3.80-5.40); RDW 18.1 % (11.5-15.5); WBC 10.4 k/uL (3.8-10.6)
[2023-04-01 11:38] LABS: ALT 23 U/L (4-34); AST 36 U/L (14-36); African American GFR (CKD) 75 (>60 ml/min/1.73 sqM); Albumin 4.2 g/dL (3.5-5.0); Alkaline Phosphatase 153 U/L (38-126); Anion Gap 9 mmol/L; Blood Urea Nitrogen 29 mg/dL (7-17); Calcium 9.6 mg/dL (8.4-10.2); Carbon Dioxide 30 mmol/L (22-30); Chloride 101 mmol/L (98-107); Glucose 133 mg/dL (74-99); Non-African American GFR(CKD) 65 (>60 ml/min/1.73 sqM); Potassium 4.4 mmol/L (3.5-5.1); Sodium 140 mmol/L (137-145); Total Bilirubin 0.3 mg/dL (0.2-1.3); Total Protein 7.5 g/dL (6.3-8.2)
[2023-04-01 11:39] LABS: INR 0.9 (<1.2); Partial Thromboplastin Time 22.3 sec (22.0-30.0); Prothrombin Time 10.1 sec (10.0-12.5)
[2023-04-01] MEDS: HYDROmorphone 0.5 MG/0.5 ML SYRINGE IVP PRN ×3 (12:13→23:22)
[2023-04-01] MEDS ORDERED: LOPERAMIDE 2 MG CAP PO PRN (14:33)
[2023-04-01] MEDS ORDERED: hydrOXYzine pamoate 25 MG CAP PO PRN (14:33)
--- NOTE | 2023-04-01 14:37 | P.CONS ---
History of Present Illness - Reason for Consult Consult date: 04/01/23 A fib Requesting physician: Drew Gregg - Chief Complaint arm pain - History of Present Illness Patient is a 77-year-old female with multiple comorbid conditions including at rial fibrillation status postcardiac ablation and permanent pacemaker with Watchman device, coronary artery disease with stents, Diastolic congestive heart failure with EF 55-60%, GERD, hypertension, and coronary artery disease who presented to the emergency department for right shoulder pain after a fall. Patient is currently on Lovenox for A-fib and recent pulmonary embolism in January 2023. In the emergency department she underwent an extensive evaluation. Initial laboratory analysis was essentially unremarkable. Chest x- ray demonstrated COPD but no acute process. Right shoulder x-ray demonstrated a two-part humeral neck fracture with lateral displacement this was confirmed on right humerus x-ray. In the emergency department she was given Toradol and Dilaudid for pain. Arrangements were made for admission to orthopedic surgery. We were asked to consult for medical management. CT of the shoulder showed impacted comminuted 2 part surgical neck fracture of the proximal humerus with 1.4 cm of impaction and anterior displacement of 1.6 cm with 45 degrees of angulation Patient seen and examined at bedside. She reports that today she was trying to sit back down in her wheelchair but missed the wheelchair and fell onto the floor hitting her cover on the way down. She denies any lightheadedness, dizziness, or loss of consciousness. She denies any recent cough, cold, fever, flu. She has not needed major medical attention since her last hospitalization here in January 2023 for pulmonary embolism. Vital signs reviewed General: nontoxic, no distress, appears at stated age Derm: warm, dry Eyes: EOMI, no lid lag, anicteric sclera, pupils equal round reactive to light ENT: Nose and ears atraumatic, no thrush, no pharyngeal erythema Cardiovascular: S1S2 reg, no murmur, positive posterior tibial pulse bilateral, 2+ bilateral lower extremity edema, patient reports this is improved from her baseline Lungs: clear to auscultation bilateral, no rhonchi, no rales, no wheeze, no accessory muscle use Abdominal: soft, nontender to palpation, no guarding, no appreciable organomegaly, normal bowel sounds Ext: no gross muscle atrophy, no contractures, right arm in sling Neuro: CN II-XII grossly intact, no focal neurodeficits noted Psych: Alert, oriented, appropriate affect Assessment/Plan: 77-year-old female with right comminuted and displaced humeral fracture Mechanical Fall -Case discussed with orthopedic surgery both Dr. Gregg and Migdalia Haskins nurse practitioner. Initial plan will be for nonoperative management of this fracture -Pain control with Dilaudid 0.5 mg to 1 mg every 3 hours. Add [place] 7.5/325 every 6 hours as needed for pain -Resume patient's home MS Contin 15 mg p.o. every 8 hours -Monitor hemoglobin closely with need for continued Lovenox and Plavix Recent pulmonary embolism -Continue with Lovenox 40 mg every 12 hours Compensated diastolic congestive heart failure, EF 55-60% Hypertension Dyslipidemia Atrial fibrillation with history of tachybradycardia syndrome status post permanent pacemaker -Resume diltiazem 180 mg daily, Lopressor 50 mg daily, amiodarone 200 mg daily -Continue with Aldactone 25 mg oral daily, Lasix 40 mg daily -Plavix 75 mg daily, ASA 81 mg daily Chronic: Hypothyroidism GERD Esophageal stricture status post multiple esophageal dilatations Anemia of chronic disease Imaging: As per HPI Data Review: As per HPI Thank you for allowing us to participate in the care of this pleasant patient. Do not hesitate to contact us with questions. Someone can be reached from the [facility] hospitalist group all hours of the day at [phone] or via reQwip. This dictation was prepared using [employer] voice recognition software. Though every attempt is made to correct errors during dictation some may still exist. Past Medical History Past Medical History: Atrial Fibrillation, Blood Disorder, Coronary Artery Disease (CAD), Chest Pain / Angina, Heart Failure, COPD, CVA/TIA, Fibromyalgia, GERD/Reflux, GI Bleed, Hypertension, Myocardial Infarction ([place]), Musculoskeletal Disorder, Osteoarthritis (OA), Thyroid Disorder Additional Past Medical History / Comment(s): Pacemaker for Syncope/Tachybrady Syndrome. Hx RHEUMATIC FEVER. Heart murmur, chronic back and bilateral shoulder pain. SEVERE OSTEOPROSIS, Vertigo, Degenerative Joint Disease, GI ulcers, esophagitis/esophageal stricture, partially blocked bile duct, PROBLEMS WITH SWALLOWING, "no symptoms of COPD." FALLS "Cannot lie down for long without having back pain.". Left hip open reduction internal fixation of some trochanteric comminuted femur fracture in November 2021 Last Myocardial Infarction Date:: 2002 History of Any Multi-Drug Resistant Organisms: None Reported Past Surgical History: Appendectomy, Cardiac Ablation, Cholecystectomy, Ear Surgery, Heart Catheterization, Hysterectomy, Orthopedic Surgery, Pacemaker, Tonsillectomy Additional Past Surgical History / Comment(s): ORIF LEFT LOWER ARM, HAS HARDWARE, numerous DILATATION OF ESOPHAGUS, biopsies were negative, colonoscopy, Pacemaker (ADAPTA) placed 07/07 at [facility], bilateral stapedectomies(stainless steel in both ears), Hiatal Hernia repair, inguinal and femoral hernia repairs, "cement placed in back, due to broken back/pelvis". Left Femur Surgery 12/09/21. Watchman. Past Anesthesia/Blood Transfusion Reactions: Family History of Problems w/ Anesthesia, Motion Sickness, Postoperative Nausea & Vomiting (PONV) Additional Past Anesthesia/Blood Transfusion Reaction / Comm: No problems with prior blood transfusion. BROTHER HAS PONV. Type of Cardiac Device: Permanent Pacemaker Device Placement Date:: 06/2016 Past Psychological History: No Psychological Hx Reported Smoking Status: Never smoker Past Alcohol Use History: None Reported Past Drug Use History: None Reported - Past Family History Brother(s) Family Medical History: Cancer Additional Family Medical History / Comment(s): Throat cancer. Father Family Medical History: Pneumonia Additional Family Medical History / Comment(s): EMPHYSEMA. Mother Family Medical History: COPD, Rheumatoid Arthritis (RA) Additional Family Medical History / Comment(s): EMPHYSEMA. Medications and Allergies Home Medications Medication Instructions Recorded Confirmed Type RX: Metoprolol Tartrate [Lopressor] 50 mg PO DAILY 10/05/20 04/01/23 History RX: Spironolactone [Aldactone] 25 mg PO DAILY 08/04/21 04/01/23 History RX: Pantoprazole [Protonix] 40 mg PO BID 12/27/21 04/01/23 History RX: Amiodarone [Cordarone] 200 mg PO DAILY 02/03/22 04/01/23 History RX: Acetaminophen [Tylenol Extra 1,000 mg PO QID PRN 09/20/22 04/01/23 History Strength] RX: Ondansetron [Zofran] 4 mg PO Q8H PRN 09/20/22 04/01/23 History RX: Sennosides [Senokot] 8.6 mg PO DAILY 09/20/22 04/01/23 History RX: Triamcinolone 0.5% Cream 1 applic TOPICAL DAILY PRN 09/20/22 04/01/23 History [Kenalog 0.5% Cream] RX: Aspirin EC [Ecotrin Low Dose] 81 mg PO DAILY 11/13/22 04/01/23 History RX: Doxepin HCl 6 mg PO HS 11/13/22 04/01/23 History RX: Levothyroxine Sodium 100 mcg PO DAILY 11/13/22 04/01/23 History [Synthroid] RX: Furosemide [Lasix] 40 mg PO DAILY 12/27/22 04/01/23 History RX: Butalb/Acetaminophen/Caffeine 1 cap PO BID PRN 01/10/23 04/01/23 History [Fioricet 50-300-40 mg Capsule] RX: Folic Acid 1 mg PO DAILY 01/10/23 04/01/23 History RX: dilTIAZem HCL [dilTIAZem HCL 180 mg PO DAILY 01/10/23 04/01/23 History 24Hr ER (CD)] RX: Mupirocin 2% Oint [Bactroban 1 applic TOPICAL BID PRN 01/12/23 04/01/23 History 2% Oint] RX: Clopidogrel [Plavix] 75 mg PO DAILY 02/07/23 04/01/23 History RX: Desloratadine [Clarinex] 5 mg PO DAILY 02/07/23 04/01/23 History RX: Escitalopram [Lexapro] 5 mg PO DAILY 02/07/23 04/01/23 History RX: Ferrous Sulfate [Iron (65 MG 325 mg PO DAILY 02/07/23 04/01/23 History Elemental)] RX: Morphine Sulfate ER [Ms Contin] 15 mg PO Q8HR@0700,1500,2300 02/07/23 04/01/23 History RX: Potassium Chloride Oral Liquid 40 meq PO BID 02/07/23 04/01/23 History Enoxaparin [Lovenox] 40 mg SQ Q12H 90 Days #180 each 02/09/23 04/01/23 Rx Lidocaine 5% Patch [Lidoderm] 1 patch TOPICAL BID 04/01/23 04/01/23 History Loperamide 1mg/7.5ml Liquid 1 - 2 mg PO TID PRN MDD 30 ml 04/01/23 04/01/23 History RX: hydrOXYzine pamoate 25 mg PO Q6H PRN 04/01/23 04/01/23 History [hydrOXYzine PAMOATE] Allergies Allergy/AdvReac Type Severity Reaction Status Date / Time adhesive Allergy RASH FROM Verified 04/01/23 13:43 EKG STICKERS apixaban [From Eliquis] Allergy Rash/Hives Verified 04/01/23 13:43 celecoxib [From Celebrex] Allergy Rash/Hives Verified 04/01/23 13:43 sertraline HCl [From Zoloft] Allergy Rash/Hives Verified 04/01/23 13:43 sulfamethoxazole Allergy Anaphylaxis Verified 04/01/23 13:43 [From Bactrim] trimethoprim [From Bactrim] Allergy Anaphylaxis Verified 04/01/23 13:43 cholestyramine AdvReac DIZZY/CONFU Verified 04/01/23 13:43 SED Physical Exam Osteopathic Statement: *. No significant issues noted on an osteopathic structural exam other than those noted in the History and Physical/Consult. Vitals: Vital Signs Temp Pulse Resp BP Pulse Ox 04/01/23 12:00 73 20 116/65 96 04/01/23 10:00 106 H 20 148/96 100 04/01/23 08:58 106 H 20 143/90 98 04/01/23 07:19 114 H 20 133/97 96 04/01/23 06:14 98.5 F 115 H 17 125/75 93 L Intake and Output 03/31/23 04/01/23 04/01/23 22:59 06:59 14:59 Other: Weight 40.823 kg Results CBC & Chem 7: 04/01/23 10:46 04/01/23 10:46 Labs: Abnormal Lab Results - Last 24 Hours (Table) 04/01/23 04/01/23 Range/Units 10:46 10:46 RDW 18.1 H (11.5-15.5) % Neutrophils # 9.1 H (1.3-7.7) k/uL Lymphocytes # 0.8 L (1.0-4.8) k/uL BUN 29 H (7-17) mg/dL Glucose 133 H (74-99) mg/dL Alkaline Phosphatase 153 H (38-126) U/L
[2023-04-01] MEDS ORDERED: ALBUTEROL NEBULIZED 2.5 MG/3 ML INHALATION PRN (14:43)
[2023-04-01] MEDS ORDERED: bisacodyL 5 MG TABLET.DR PO PRN (14:43)
[2023-04-01] MEDS ORDERED: MELATONIN 5 MG TABLET PO PRN (14:43)
--- NOTE | 2023-04-01 15:34 | P.HPOR ---
History of Present Illness H&P Date: 04/01/23 Chief Complaint: Right shoulder pain. Mavis is a 77-year-old female who presented to the emergency department today after a fall in her home sustaining injury to her right shoulder. She has recent orthopedic history of a right hip fracture with fixation in December of this year as well as a left femoral fracture with fixation one year ago. She has a medical history of recent bilateral pulmonary embolism. She is status post ablation and pacemaker insertion with a watchman device. The patient has history of atrial fibrillation and is currently on Lovenox. She lives alone and does ambulate somewhat but also uses a wheelchair to get around at home. Past Medical History Past Medical History: Atrial Fibrillation, Blood Disorder, Coronary Artery Disease (CAD), Chest Pain / Angina, Heart Failure, COPD, CVA/TIA, Fibromyalgia, GERD/Reflux, GI Bleed, Hypertension, Myocardial Infarction ([place]), Musculoskeletal Disorder, Osteoarthritis (OA), Thyroid Disorder Additional Past Medical History / Comment(s): Pacemaker for Syncope/Tachybrady Syndrome. Hx RHEUMATIC FEVER. Heart murmur, chronic back and bilateral shoulder pain. SEVERE OSTEOPROSIS, Vertigo, Degenerative Joint Disease, GI ulcers, esophagitis/esophageal stricture, partially blocked bile duct, PROBLEMS WITH SWALLOWING, "no symptoms of COPD." FALLS "Cannot lie down for long without having back pain.". Left hip open reduction internal fixation of some trochanteric comminuted femur fracture in November 2021 Last Myocardial Infarction Date:: 2002 History of Any Multi-Drug Resistant Organisms: None Reported Past Surgical History: Appendectomy, Cardiac Ablation, Cholecystectomy, Ear Surgery, Heart Catheterization, Hysterectomy, Orthopedic Surgery, Pacemaker, Tonsillectomy Additional Past Surgical History / Comment(s): ORIF LEFT LOWER ARM, HAS HARDWARE, numerous DILATATION OF ESOPHAGUS, biopsies were negative, colonoscopy, Pacemaker (ADAPTA) placed 07/07 at [facility], bilateral stapedectomies(stainless steel in both ears), Hiatal Hernia repair, inguinal and femoral hernia repairs, "cement placed in back, due to broken back/pelvis". Left Femur Surgery 12/09/21. Watchman. Past Anesthesia/Blood Transfusion Reactions: Family History of Problems w/ Anesthesia, Motion Sickness, Postoperative Nausea & Vomiting (PONV) Additional Past Anesthesia/Blood Transfusion Reaction / Comment(s): No problems with prior blood transfusion. BROTHER HAS PONV. Type of Cardiac Device: Permanent Pacemaker Device Placement Date:: 06/2016 Past Psychological History: No Psychological Hx Reported Smoking Status: Never smoker Past Alcohol Use History: None Reported Past Drug Use History: None Reported - Past Family History Brother(s) Family Medical History: Cancer Additional Family Medical History / Comment(s): Throat cancer. Father Family Medical History: Pneumonia Additional Family Medical History / Comment(s): EMPHYSEMA. Mother Family Medical History: COPD, Rheumatoid Arthritis (RA) Additional Family Medical History / Comment(s): EMPHYSEMA. Medications and Allergies Home Medications Medication Instructions Recorded Confirmed Type Metoprolol Tartrate [Lopressor] 50 mg PO DAILY 10/05/20 04/01/23 History Spironolactone [Aldactone] 25 mg PO DAILY 08/04/21 04/01/23 History Pantoprazole [Protonix] 40 mg PO BID 12/27/21 04/01/23 History Amiodarone [Cordarone] 200 mg PO DAILY 02/03/22 04/01/23 History Acetaminophen [Tylenol Extra 1,000 mg PO QID PRN 09/20/22 04/01/23 History Strength] Ondansetron [Zofran] 4 mg PO Q8H PRN 09/20/22 04/01/23 History Sennosides [Senokot] 8.6 mg PO DAILY 09/20/22 04/01/23 History Triamcinolone 0.5% Cream [Kenalog 1 applic TOPICAL DAILY PRN 09/20/22 04/01/23 History 0.5% Cream] Aspirin EC [Ecotrin Low Dose] 81 mg PO DAILY 11/13/22 04/01/23 History Doxepin HCl 6 mg PO HS 11/13/22 04/01/23 History Levothyroxine Sodium [Synthroid] 100 mcg PO DAILY 11/13/22 04/01/23 History Furosemide [Lasix] 40 mg PO DAILY 12/27/22 04/01/23 History Butalb/Acetaminophen/Caffeine 1 cap PO BID PRN 01/10/23 04/01/23 History [Fioricet 50-300-40 mg Capsule] Folic Acid 1 mg PO DAILY 01/10/23 04/01/23 History dilTIAZem HCL [dilTIAZem HCL 24Hr 180 mg PO DAILY 01/10/23 04/01/23 History ER (CD)] Mupirocin 2% Oint [Bactroban 2% 1 applic TOPICAL BID PRN 01/12/23 04/01/23 History Oint] Clopidogrel [Plavix] 75 mg PO DAILY 02/07/23 04/01/23 History Desloratadine [Clarinex] 5 mg PO DAILY 02/07/23 04/01/23 History Escitalopram [Lexapro] 5 mg PO DAILY 02/07/23 04/01/23 History Ferrous Sulfate [Iron (65 MG 325 mg PO DAILY 02/07/23 04/01/23 History Elemental)] Morphine Sulfate ER [Ms Contin] 15 mg PO Q8HR@0700,1500,2300 02/07/23 04/01/23 History Potassium Chloride Oral Liquid 40 meq PO BID 02/07/23 04/01/23 History Enoxaparin [Lovenox] 40 mg SQ Q12H 90 Days #180 each 02/09/23 04/01/23 Rx Lidocaine 5% Patch [Lidoderm] 1 patch TOPICAL BID 04/01/23 04/01/23 History Loperamide 1mg/7.5ml Liquid 1 - 2 mg PO TID PRN MDD 30 ml 04/01/23 04/01/23 History hydrOXYzine pamoate [hydrOXYzine 25 mg PO Q6H PRN 04/01/23 04/01/23 History PAMOATE] Allergies Allergy/AdvReac Type Severity Reaction Status Date / Time adhesive Allergy RASH FROM Verified 04/01/23 13:43 EKG STICKERS apixaban [From Eliquis] Allergy Rash/Hives Verified 04/01/23 13:43 celecoxib [From Celebrex] Allergy Rash/Hives Verified 04/01/23 13:43 sertraline HCl [From Zoloft] Allergy Rash/Hives Verified 04/01/23 13:43 sulfamethoxazole Allergy Anaphylaxis Verified 04/01/23 13:43 [From Bactrim] trimethoprim [From Bactrim] Allergy Anaphylaxis Verified 04/01/23 13:43 cholestyramine AdvReac DIZZY/CONFU Verified 04/01/23 13:43 SED Physical Examination This is a pleasant 77-year-old female in no acute distress. She is alert and oriented 3. Exam of her head and neck reveal no obvious deformity. She has fairly good cervical spine motion without difficulty or pain. Exam the upper x-rays reveals that the right arm is in a sling. She has full finger motion without difficulty or pain. Neurovascular status Her extremities is intact. Exam the lower extremities reveals no obvious deformity. She has full foot and ankle motion bilaterally. Neurovascular status to the lower extremities is intact. Results X-rays and CT scan of the right shoulder reveals an impacted humeral neck fracture with slight angulation. - Labs Labs: Abnormal Lab Results - Last 24 Hours (Table) 04/01/23 04/01/23 Range/Units 10:46 10:46 RDW 18.1 H (11.5-15.5) % Neutrophils # 9.1 H (1.3-7.7) k/uL Lymphocytes # 0.8 L (1.0-4.8) k/uL BUN 29 H (7-17) mg/dL Glucose 133 H (74-99) mg/dL Alkaline Phosphatase 153 H (38-126) U/L H & H 04/01/23 Range/Units 10:46 Hgb 12.9 (11.4-16.0) gm/dL Hct 40.8 (34.0-46.0) % Coagulation 04/01/23 Range/Units 10:46 INR 0.9 (<1.2) Result Diagrams: 04/01/23 10:46 04/01/23 10:46 Assessment and Plan (1) Closed fracture of right proximal humerus Current Visit: Yes Status: Acute Code(s): S42.201A - UNSP FRACTURE OF UPPER END OF RIGHT HUMERUS, INIT SNOMED Code(s): 79330837 (2) Fall Current Visit: Yes Status: Acute Code(s): W19.XXXA - UNSPECIFIED FALL, INITI AL ENCOUNTER SNOMED Code(s): 4465241 Plan: The clinical and radiographic findings are discussed with the patient and her family. The patient is a poor surgical candidate. We will treat this fracture conservatively in a sling. It is recommended she keep the arm dangling when she is resting or sleeping. She should be at least a little bit upright when resting. She will likely require inpatient rehabilitation placement. Internal medicine is consulted for Medical management.
[2023-04-01] MEDS: MORPHINE SULFATE ER 15 MG TABLET PO SCH ×2 (15:42→22:54)
[2023-04-01] MEDS: ONDANSETRON 4 MG/2 ML VIAL IVP PRN (15:45)
[2023-04-01] MEDS: PANTOPRAZOLE 40 MG TABLET PO SCH (16:59)
[2023-04-01] MEDS: DOXEPIN HCL 6 MG PO SCH (21:17)
[2023-04-01] MEDS: POTASSIUM BICARBONATE/CIT AC 20 MEQ TABLET.EFF PO SCH (22:09)
[2023-04-01] MEDS: ENOXAPARIN 40 MG/0.4 ML SYRINGE SQ SCH (22:10)
[2023-04-01] MEDS: LIDOCAINE 4% PATCH TOPICAL SCH (22:11)
[2023-04-02] MEDS: ONDANSETRON 4 MG/2 ML VIAL IVP PRN ×2 (03:16→08:19)
[2023-04-02] MEDS: HYDROmorphone 0.5 MG/0.5 ML SYRINGE IVP PRN ×3 (03:21→21:11)
[2023-04-02] MEDS: HYDROcodone/APAP 7.5-325MG 1 EACH TAB PO PRN ×2 (04:50→17:25)
[2023-04-02] MEDS: MORPHINE SULFATE ER 15 MG TABLET PO SCH ×3 (06:16→23:05)
[2023-04-02] MEDS: LEVOTHYROXINE 100 MCG TAB PO SCH (06:16)
[2023-04-02 08:02] LABS: Anisocytosis Slight; HCT 34.7 % (34.0-46.0); Hypochromasia Slight; MCH 30.6 pg (25.0-35.0); MCHC 31.8 g/dL (31.0-37.0); MCV 96.4 fL (80.0-100.0); Macrocytosis Slight; Mean Platelet Volume 7.9; Platelet Count 202 k/uL (150-450); RDW 18.4 % (11.5-15.5); WBC 7.1 k/uL (3.8-10.6)
[2023-04-02] MEDS: PANTOPRAZOLE 40 MG TABLET PO SCH ×2 (08:20→17:29)
[2023-04-02] MEDS: AMIODARONE 200 MG TAB PO SCH (08:20)
[2023-04-02] MEDS: FERROUS SULFATE 325 MG TAB PO SCH (08:20)
[2023-04-02] MEDS: LORATADINE 10 MG TAB PO SCH (08:20)
[2023-04-02] MEDS: FOLIC ACID 1 MG TAB PO SCH (08:20)
[2023-04-02] MEDS: SPIRONOLACTONE 25 MG TAB PO SCH (08:20)
[2023-04-02] MEDS: SENNOSIDES 8.6 MG TAB PO SCH (08:20)
[2023-04-02] MEDS: CLOPIDOGREL 75 MG TAB PO SCH (08:20)
[2023-04-02] MEDS: ASPIRIN 81 MG PO SCH (08:20)
[2023-04-02] MEDS: ENOXAPARIN 40 MG/0.4 ML SYRINGE SQ SCH ×2 (08:21→21:11)
[2023-04-02] MEDS: FUROSEMIDE 40 MG TAB PO SCH (08:21)
[2023-04-02] MEDS: METOPROLOL TARTRATE 50 MG TAB PO SCH (08:21)
[2023-04-02] MEDS: LIDOCAINE 4% PATCH TOPICAL SCH ×2 (08:21→21:11)
[2023-04-02 08:33] LABS: ALT 17 U/L (4-34); AST 25 U/L (14-36); African American GFR (CKD) >90 (>60 ml/min/1.73 sqM); Albumin 3.3 g/dL (3.5-5.0); Albumin/Globulin Ratio 1.2; Alkaline Phosphatase 139 U/L (38-126); Anion Gap 7 mmol/L; Blood Urea Nitrogen 21 mg/dL (7-17); Calcium 9.1 mg/dL (8.4-10.2); Carbon Dioxide 27 mmol/L (22-30); Chloride 105 mmol/L (98-107); Globulin 2.8 g/dL; Glucose 107 mg/dL (74-99); Non-African American GFR(CKD) 86 (>60 ml/min/1.73 sqM); Potassium 4.3 mmol/L (3.5-5.1); Sodium 139 mmol/L (137-145); Total Bilirubin 0.4 mg/dL (0.2-1.3); Total Protein 6.1 g/dL (6.3-8.2)
[2023-04-02] MEDS: POTASSIUM BICARBONATE/CIT AC 20 MEQ TABLET.EFF PO SCH ×2 (08:34→21:10)
[2023-04-02] MEDS: ESCITALOPRAM 5 MG TAB PO SCH (08:34)
[2023-04-02] MEDS ORDERED: DILTIAZEM CD 180 MG CAP.ER.24H PO SCH (09:00)
[2023-04-02] MEDS: DILTIAZEM ORAL 60 MG TAB PO SCH ×3 (10:03→21:10)
[2023-04-02] MEDS: HYDROmorphone 1 MG/ML 1 ML SYRINGE IVP PRN ×2 (10:05→13:34)
--- NOTE | 2023-04-02 12:17 | P.PN ---
Subjective Progress Note Date: 04/02/23 Principal diagnosis: Right proximal humerus fracture. Mavis is a 77-year-old female who presented to the emergency department today after a fall in her home sustaining injury to her right shoulder. She has recent orthopedic history of a right hip fracture with fixation in December of this year as well as a left femoral fracture with fixation one year ago. She has a medical history of recent bilateral pulmonary embolism. She is status post ablation and pacemaker insertion with a watchman device. The patient has history of atrial fibrillation and is currently on Lovenox. She lives alone and does ambulate somewhat but also uses a wheelchair to get around at home. 04/02/2023: The patient had physical therapy evaluations this morning. She is awaiting a bed on the floor. According to PT she is safe to ambulate with some assistance. She has no new complaints or concerns today. Vital signs are stable. Objective - Vital Signs Vital signs: Vital Signs Temp 98.5 F 04/02/23 06:19 Pulse 76 04/02/23 07:10 Resp 18 04/02/23 07:10 BP 126/68 04/02/23 07:10 Pulse Ox 98 04/02/23 07:10 FiO2 - Exam 77-year-old female in no acute distress. She is alert and oriented 3. She is getting up on the commode with nursing assistance. Exam is essentially unchanged. She has the shoulder in a sling. Normal finger motion with normal neurovascular status to the upper extremity. - Labs CBC & Chem 7: 04/02/23 06:55 04/02/23 06:55 Labs: Abnormal Lab Results - Last 24 Hours (Table) 04/02/23 04/02/23 Range/Units 06:55 06:55 RBC 3.60 L (3.80-5.40) m/uL Hgb 11.0 L (11.4-16.0) gm/dL RDW 18.4 H (11.5-15.5) % BUN 21 H (7-17) mg/dL Glucose 107 H (74-99) mg/dL Alkaline Phosphatase 139 H (38-126) U/L Total Protein 6.1 L (6.3-8.2) g/dL Albumin 3.3 L (3.5-5.0) g/dL Assessment and Plan (1) Closed fracture of right proximal humerus Current Visit: Yes Status: Acute Code(s): S42.201A - UNSP FRACTURE OF UPPER END OF RIGHT HUMERUS, INIT SNOMED Code(s): 90140608 (2) Fall Current Visit: Yes Status: Acute Code(s): W19.XXXA - UNSPECIFIED FALL, INITIAL ENCOUNTER SNOMED Code(s): 7421774 Plan: The clinical and radiographic findings are discussed with the patient and her family. The patient is a poor surgical candidate. We will treat this fracture conservatively in a sling. It is recommended she keep the arm dangling when she is resting or sleeping. She should be at least a little bit upright when resting. Appreciate input from physical therapy and internal medicine. If she is found to be safe to go home she may be discharged with home care.
--- NOTE | 2023-04-02 13:35 | P.PN ---
Subjective Progress Note Date: 04/02/23 (delayed charting seen at 0905) Patient is a 77-year-old female with multiple comorbid conditions including atrial fibrillation status postcardiac ablation and permanent pacemaker with Watchman device, coronary artery disease with stents, Diastolic congestive heart failure with EF 55-60%, GERD, hypertension, and coronary artery disease who presented to the emergency department for right shoulder pain after a fall. Patient is currently on Lovenox for A-fib and recent pulmonary embolism in tob2022. In the emergency department she underwent an extensive evaluation. Initial laboratory analysis was essentially unremarkable. Chest x-ray demonstrated COPD but no acute process. Right shoulder x-ray demonstrated a two-part humeral neck fracture with lateral displacement this was confirmed on right humerus x-ray. In the emergency department she was given Toradol and Dilaudid for pain. Arrangements were made for admission to orthopedic surgery. We were asked to consult for medical management. Patient seen and examined at bedside. Her pain is relatively well-controlled. Her breathing is better than yesterday. She denies any chest pain, lightheadedness, dizziness, or other complaints. Vital signs reviewed General: Nontoxic, no distress, appears at stated age Cardiovascular: S1S2 reg, no murmur, positive posterior tibial pulse bilateral, Lungs: CTA bilateral, no rhonchi, no rales, no accessory muscle use Abdominal: Soft, nontender to palpation, no guarding, no appreciable organomegaly Ext: No gross muscle atrophy, trace edema b/l lower extremities, no contractures , right arm in sling Neuro: CN II-XI grossly intact, no focal neuro deficits Psych: Alert, oriented, appropriate affect Assessment/Plan: 77-year-old female with right comminuted and displaced humeral fracture Mechanical Fall -Orthopedic surgery note reviewed. Continue with sling. -Pain control with Dilaudid 0.5 mg to 1 mg every 3 hours. [place] 7.5/325 every 6 hours as needed for pain -MS Contin 15 mg p.o. every 8 hours -Monitor hemoglobin with need for continued Lovenox and Plavix -Case discussed with nurse practitioner from [facility] and plan is still for patient to be evaluated by physical and Occupational Therapy with possible need for rehab. Recent pulmonary embolism -Continue with Lovenox 40 mg every 12 hours Compensated diastolic congestive heart failure, EF 55-60% Hypertension Dyslipidemia Atrial fibrillation with history of tachybradycardia syndrome status post permanent pacemaker -Patient has been emptying her diltiazem capsule every day as she is unable to swallow the pill whole. I have converted this to Cardizem 60 mg 3 times daily. Which can be crushed. - Lopressor 50 mg daily, amiodarone 200 mg daily -Aldactone 25 mg oral daily, Lasix 40 mg daily -Plavix 75 mg daily, ASA 81 mg daily Chronic: Hypothyroidism GERD Esophageal stricture status post multiple esophageal dilatations Anemia of chronic disease Imaging: None new Data Review: Labs from today include CBC and complete metabolic profile which are remarkable for hemoglobin 11, BUN 21, glucose 107, and alkaline phosphatase of 139. DVT prophylaxis: [facility] Thank you for allowing us to participate in the care of this pleasant patient. Do not hesitate to contact us with questions. Someone can be reached from the [facility] hospitalist group all hours of the day at [phone] or via [employer]. This dictation was prepared using [employer] voice recognition software. Though every attempt is made to correct errors during dictation some may still exist. Objective - Vital Signs Vital signs: Vital Signs Temp 98.5 F 04/02/23 06:19 Pulse 57 L 04/02/23 13:32 Resp 18 04/02/23 13:32 BP 124/60 04/02/23 13:32 Pulse Ox 97 04/02/23 13:32 FiO2 - Labs CBC & Chem 7: 04/02/23 06:55 04/02/23 06:55 Labs: Abnormal Lab Results - Last 24 Hours (Table) 04/02/23 04/02/23 Range/Units 06:55 06:55 RBC 3.60 L (3.80-5.40) m/uL Hgb 11.0 L (11.4-16.0) gm/dL RDW 18.4 H (11.5-15.5) % BUN 21 H (7-17) mg/dL Glucose 107 H (74-99) mg/dL Alkaline Phosphatase 139 H (38-126) U/L Total Protein 6.1 L (6.3-8.2) g/dL Albumin 3.3 L (3.5-5.0) g/dL
[2023-04-02] MEDS: DOXEPIN HCL 6 MG PO SCH (21:04)
[2023-04-03] MEDS: HYDROmorphone 0.5 MG/0.5 ML SYRINGE IVP PRN ×2 (03:08→08:28)
[2023-04-03] MEDS: ONDANSETRON 4 MG/2 ML VIAL IVP PRN (03:16)
[2023-04-03] MEDS: LEVOTHYROXINE 100 MCG TAB PO SCH (05:56)
[2023-04-03] MEDS: MORPHINE SULFATE ER 15 MG TABLET PO SCH ×3 (05:56→22:19)
[2023-04-03] MEDS: PANTOPRAZOLE 40 MG TABLET PO SCH ×2 (05:56→17:03)
[2023-04-03] MEDS: ENOXAPARIN 40 MG/0.4 ML SYRINGE SQ SCH ×2 (08:25→20:21)
[2023-04-03] MEDS: LIDOCAINE 4% PATCH TOPICAL SCH ×2 (08:25→20:22)
[2023-04-03] MEDS: CLOPIDOGREL 75 MG TAB PO SCH (08:26)
[2023-04-03] MEDS: FERROUS SULFATE 325 MG TAB PO SCH (08:26)
[2023-04-03] MEDS: SPIRONOLACTONE 25 MG TAB PO SCH (08:26)
[2023-04-03] MEDS: AMIODARONE 200 MG TAB PO SCH (08:26)
[2023-04-03] MEDS: DILTIAZEM ORAL 60 MG TAB PO SCH ×3 (08:26→20:22)
[2023-04-03] MEDS: LORATADINE 10 MG TAB PO SCH (08:27)
[2023-04-03] MEDS: ESCITALOPRAM 5 MG TAB PO SCH (08:27)
[2023-04-03] MEDS: FOLIC ACID 1 MG TAB PO SCH (08:27)
[2023-04-03] MEDS: FUROSEMIDE 40 MG TAB PO SCH (08:27)
[2023-04-03] MEDS: ASPIRIN 81 MG PO SCH (08:27)
[2023-04-03] MEDS: POTASSIUM BICARBONATE/CIT AC 20 MEQ TABLET.EFF PO SCH ×2 (08:27→20:21)
[2023-04-03] MEDS: METOPROLOL TARTRATE 50 MG TAB PO SCH (08:27)
[2023-04-03] MEDS: SENNOSIDES 8.6 MG TAB PO SCH (08:28)
[2023-04-03] MEDS: HYDROcodone/APAP 7.5-325MG 1 EACH TAB PO PRN (09:47)
--- NOTE | 2023-04-03 11:07 | XR ---
EXAMINATION TYPE: XR Hip Complete RT DATE OF EXAM: 04/03/2023 COMPARISON: 12/27/2022 HISTORY: Pain TECHNIQUE: 2 views submitted FINDINGS: There is postsurgical changes involving the right hip with incomplete healing of the greater trochant er displaced fracture. A moderate arthropathy of the hip with no evidence of erosive change. Generali zed osteopenia. Soft tissues appear prominent correlate for subcutaneous or soft tissue edema. IMPRESSION: 1. Postsurgical change with no definite fracture. Correlate with CT scan as clinically warranted. 2. Right hip arthropathy
[2023-04-03] MEDS: HYDROmorphone 1 MG/ML 1 ML SYRINGE IVP PRN ×4 (11:18→20:53)
[2023-04-03 15:16] VITALS: BMI 16.9
--- NOTE | 2023-04-03 15:32 | P.PN ---
Subjective Progress Note Date: 04/03/23 This is a 77-year-old female who is admitted for right humerus fracture. Patient is seen and evaluated at bedside today. Patient states that she is having pain and swelling over the right hip. Patient states that she was able to bear weight on the right lower extremity and walk with physical therapy. Lawrence velasquez states that the pain in her right arm is well-controlled. Objective - Vital Signs Vital signs: Vital Signs Temp 98.1 F 04/03/23 14:44 Pulse 55 L 04/03/23 14:44 Resp 14 04/03/23 14:44 BP 115/65 04/03/23 14:44 Pulse Ox 98 04/03/23 14:44 FiO2 Intake & Output 04/02/23 04/03/23 04/03/23 18:59 06:59 18:59 Weight 40.823 kg Other: Voiding Method Bedside Commode # Voids 3 1 # Bowel Movements 1 - Exam On exam sling is intact to the right upper extremity. The right upper extremity is warm and well perfused. Right lower extremity: There is swelling and ecchymosis over the lateral aspect of the right hip that is tender to palpation. Skin is intact. Patient has some pain over the lateral aspect of the right hip with hip motion. Calves are soft and nontender bilaterally. Sensation intact. Neurovascular status circulatory status are intact. - Labs CBC & Chem 7: 04/02/23 06:55 04/02/23 06:55 Assessment and Plan (1) Closed fracture of right proximal humerus Current Visit: Yes Status: Acute Code(s): S42.201A - UNSP FRACTURE OF UPPER END OF RIGHT HUMERUS, INIT SNOMED Code(s): 68595578 (2) Fall Current Visit: Yes Status: Acute Code(s): W19.XXXA - UNSPECIFIED FALL, INITIAL ENCOUNTER SNOMED Code(s): 6091803 Plan: 1. Continue conservative treatment of right humerus fracture with arm sling. 2. X-rays of the right hip are reviewed and are negative. Hardware is in good position and alignment. 3. Continue physical therapy. 4. Anticipate home with home care in the next 24-48 hours.
--- NOTE | 2023-04-03 15:56 | P.PN ---
Subjective Progress Note Date: 04/03/23 (delayed charting seen at 0830) Patient is a 77-year-old female with multiple comorbid conditions including atrial fibrillation status postcardiac ablation and permanent pacemaker with Watchman device, coronary artery disease with stents, Diastolic congestive heart failure with EF 55-60%, GERD, hypertension, and coronary artery disease who presented to the emergency department for right shoulder pain after a fall. Patient is currently on Lovenox for A-fib and recent pulmonary embolism in 2022. In the emergency department she underwent an extensive evaluation. Initial laboratory analysis was essentially unremarkable. Chest x-ray demonstrated COPD but no acute process. Right shoulder x-ray demonstrated a two-part humeral neck fracture with lateral displacement this was confirmed on right humerus x-ray. In the emergency department she was given Toradol and Dilaudid for pain. Arrangements were made for admission to orthopedic surgery. We were asked to consult for medical management. Today patient is complaining of some right hip pain. She did have a fracture in that right hip in December 2022 with replacement. She has been able to ambulate on her hip. Pain control is doing okay today. She thinks she will be able to manage at home with her daughter. Vital signs reviewed General: Nontoxic, no distress, appears at stated age Cardiovascular: S1S2 reg, no murmur, positive posterior tibial pulse bilateral, Lungs: CTA bilateral, no rhonchi, no rales, no accessory muscle use Abdominal: Soft, nontender to palpation, no guarding, no appreciable organomegaly Ext: No gross muscle atrophy, trace edema b/l lower extremities, no contractures, right arm in sling Neuro: CN II-XI grossly intact, no focal neuro deficits Psych: Alert, oriented, appropriate affect Assessment/Plan: 77-year-old female with right comminuted and displaced humeral fracture Mechanical Fall -Orthopedic surgery note reviewed. home soon. -Pain control with Dilaudid 0.5 mg to 1 mg every 3 hours. [place] 7.5/325 every 6 hours as needed for pain -MS Contin 15 mg p.o. every 8 hours Right hip pain - check X-Ray Recent pulmonary embolism -Continue with Lovenox 40 mg every 12 hours Compensated diastolic congestive heart failure, EF 55-60% Hypertension Dyslipidemia Atrial fibrillation with history of tachybradycardia syndrome status post permanent pacemaker - Cardizem 60 mg 3 times daily - Lopressor 50 mg daily, amiodarone 200 mg daily -Aldactone 25 mg oral daily, Lasix 40 mg daily -Plavix 75 mg daily, ASA 81 mg daily Chronic: Hypothyroidism GERD Esophageal stricture status post multiple esophageal dilatations Anemia of chronic disease - case discussed with CM and plan will be for home with HH and to see if [facility] can come out daily. Imaging: Hip x-ray ordered and reviewed: Postsurgical changes with no definitive fracture, right hip arthropathy Data Review: None new DVT prophylaxis: Lovenox Thank you for allowing us to participate in the care of this pleasant patient. Do not hesitate to contact us with questions. Someone can be reached from the [facility] hospitalist group all hours of the day at [phone] or via [employer]. This dictation was prepared using [employer] voice recognition software. Though every attempt is made to correct errors during dictation some may still exist. Objective - Vital Signs Vital signs: Vital Signs Temp 98.1 F 04/03/23 14:44 Pulse 55 L 04/03/23 14:44 Resp 14 04/03/23 14:44 BP 115/65 04/03/23 14:44 Pulse Ox 98 04/03/23 14:44 FiO2 Intake & Output 04/02/23 04/03/23 04/03/23 18:59 06:59 18:59 Weight 40.823 kg Other: Voiding Method Bedside Commode # Voids 3 1 # Bowel Movements 1 - Labs CBC & Chem 7: 04/02/23 06:55 04/02/23 06:55
[2023-04-03] MEDS: DOXEPIN HCL 6 MG PO SCH (19:37)
[2023-04-03 20:40] VITALS: RESP 16
[2023-04-04] MEDS: HYDROmorphone 1 MG/ML 1 ML SYRINGE IVP PRN (02:28)
[2023-04-04] MEDS: MORPHINE SULFATE ER 15 MG TABLET PO SCH (05:47)
[2023-04-04] MEDS: PANTOPRAZOLE 40 MG TABLET PO SCH (05:48)
[2023-04-04] MEDS: LEVOTHYROXINE 100 MCG TAB PO SCH (05:48)
[2023-04-04] MEDS: ONDANSETRON 4 MG/2 ML VIAL IVP PRN (06:01)
[2023-04-04 06:26] LABS: Anisocytosis Slight; HGB 10.8 gm/dL (11.4-16.0); Hypochromasia Slight; MCH 30.8 pg (25.0-35.0); MCHC 31.8 g/dL (31.0-37.0); MCV 96.9 fL (80.0-100.0); Macrocytosis Slight; Mean Platelet Volume 8.1; Platelet Count 213 k/uL (150-450); RBC 3.51 m/uL (3.80-5.40); WBC 8.5 k/uL (3.8-10.6)
[2023-04-04] MEDS: ASPIRIN 81 MG PO SCH (08:38)
[2023-04-04] MEDS: SPIRONOLACTONE 25 MG TAB PO SCH (08:38)
[2023-04-04] MEDS: ESCITALOPRAM 5 MG TAB PO SCH (08:38)
[2023-04-04] MEDS: METOPROLOL TARTRATE 50 MG TAB PO SCH (08:38)
[2023-04-04] MEDS: DILTIAZEM ORAL 60 MG TAB PO SCH (08:38)
[2023-04-04] MEDS: CLOPIDOGREL 75 MG TAB PO SCH (08:38)
[2023-04-04] MEDS: POTASSIUM BICARBONATE/CIT AC 20 MEQ TABLET.EFF PO SCH (08:38)
[2023-04-04] MEDS: FERROUS SULFATE 325 MG TAB PO SCH (08:38)
[2023-04-04] MEDS: AMIODARONE 200 MG TAB PO SCH (08:39)
[2023-04-04] MEDS: ENOXAPARIN 40 MG/0.4 ML SYRINGE SQ SCH (08:39)
[2023-04-04] MEDS: FOLIC ACID 1 MG TAB PO SCH (08:39)
[2023-04-04] MEDS: HYDROcodone/APAP 10-325MG 1 EACH TAB PO PRN ×2 (08:39→14:54)
[2023-04-04] MEDS: LORATADINE 10 MG TAB PO SCH (08:39)
[2023-04-04] MEDS: LIDOCAINE 4% PATCH TOPICAL SCH (08:40)
[2023-04-04 09:22] VITALS: BP 125/59; PULSE 61; TEMP 98.7
[2023-04-04] MEDS: SENNOSIDES 8.6 MG TAB PO SCH (10:55)
[2023-04-04] MEDS: FUROSEMIDE 40 MG TAB PO SCH (10:55)
[2023-04-04] MEDS: HYDROmorphone 0.5 MG/0.5 ML SYRINGE IVP PRN (11:14)
--- NOTE | 2023-04-04 15:03 | P.DS ---
Providers Date of admission: 04/01/23 10:31 Expected date of discharge: 04/04/23 Attending physician: Drew Gregg Consults: 04/01/23 10:33 Consult Physician Urgent Consulting Provider: Steph Smith Consult Reason/Comments: Medical management Do you want consulting provider notified?: Yes Primary care physician: Bunny Mendes MD - Discharge Diagnosis(es) (1) Closed fracture of right proximal humerus Current Visit: Yes Status: Acute (2) Fall Current Visit: Yes Status: Acute Hospital Course: Mavis is a 77-year-old female who presented to the emergency department today after a fall in her home sustaining injury to her right shoulder. She has recent orthopedic history of a right hip fracture with fixation in December of this year as well as a left femoral fracture with fixation one year ago. She has a medical history of recent bilateral pulmonary embolism. She is status post ablation and pacemaker insertion with a watchman device. The patient has history of atrial fibrillation and is currently on Lovenox. She lives alone and does ambulate somewhat but also uses a wheelchair to get around at home. She does have family nearby. It was recommended that the patient treat her proximal humerus fracture cons ervatively. She is in a sling for comfort and immobilization. She also developed a large hematoma to the right hip since her fall. Hip x-rays revealed that her right hip fracture is healed in good position and alignment. The intertrochanteric nail is in good position. The patient was evaluated for possible inpatient rehabilitation placement. The patient would like to go home with home care. Her daughter also lives close and can stay with her much of the time. Plan - Discharge Summary New Discharge Prescriptions: New HYDROcodone/APAP 7.5-325MG [[place] 7.5-325] 1 - 2 tab PO Q6HR PRN #32 tab PRN Reason: Pain Continue Metoprolol Tartrate [Lopressor] 50 mg PO DAILY Amiodarone [Cordarone] 200 mg PO DAILY Ondansetron [Zofran] 4 mg PO Q8H PRN PRN Reason: Nausea And Vomiting Triamcinolone 0.5% Cream [Kenalog 0.5% Cream] 1 applic TOPICAL DAILY PRN PRN Reason: Rash Sennosides [Senokot] 8.6 mg PO DAILY Doxepin HCl 6 mg PO HS Furosemide [Lasix] 40 mg PO DAILY dilTIAZem HCL [dilTIAZem HCL 24Hr ER (CD)] 180 mg PO DAILY Mupirocin 2% Oint [Bactroban 2% Oint] 1 applic TOPICAL BID PRN PRN Reason: back sores Desloratadine [Clarinex] 5 mg PO DAILY Enoxaparin [Lovenox] 40 mg SQ Q12H 90 Days #180 each Spironolactone [Aldactone] 25 mg PO DAILY Pantoprazole [Protonix] 40 mg PO BID Aspirin EC [Ecotrin Low Dose] 81 mg PO DAILY Levothyroxine Sodium [Synthroid] 100 mcg PO DAILY Butalb/Acetaminophen/Caffeine [Fioricet 50-300-40 mg Capsule] 1 cap PO BID PRN PRN Reason: Migraine Headache Folic Acid 1 mg PO DAILY Morphine Sulfate ER [Ms Contin] 15 mg PO Q8HR@0700,1500,2300 Ferrous Sulfate [Iron (65 MG Elemental)] 325 mg PO DAILY Clopidogrel [Plavix] 75 mg PO DAILY Potassium Chloride Oral Liquid 40 meq PO BID Escitalopram [Lexapro] 5 mg PO DAILY Loperamide 1mg/7.5ml Liquid 1 - 2 mg PO TID PRN MDD 30 ml PRN Reason: Diarrhea hydrOXYzine pamoate [hydrOXYzine PAMOATE] 25 mg PO Q6H PRN PRN Reason: Anxiety Lidocaine 5% Patch [Lidoderm 5% Patch] 1 patch TOPICAL BID Discontinued Acetaminophen [Tylenol Extra Strength] 1,000 mg PO QID PRN PRN Reason: Breakthrough Pain Discharge Medication List Metoprolol Tartrate [Lopressor] 50 mg PO DAILY 10/05/20 [History] Spironolactone [Aldactone] 25 mg PO DAILY 08/04/21 [History] Pantoprazole [Protonix] 40 mg PO BID 12/27/21 [History] Amiodarone [Cordarone] 200 mg PO DAILY 02/03/22 [History] Ondansetron [Zofran] 4 mg PO Q8H PRN 09/20/22 [History] Sennosides [Senokot] 8.6 mg PO DAILY 09/20/22 [History] Triamcinolone 0.5% Cream [Kenalog 0.5% Cream] 1 applic TOPICAL DAILY PRN 09/20/22 [History] Aspirin EC [Ecotrin Low Dose] 81 mg PO DAILY 11/13/22 [History] Doxepin HCl 6 mg PO HS 11/13/22 [History] Levothyroxine Sodium [Synthroid] 100 mcg PO DAILY 11/13/22 [History] Furosemide [Lasix] 40 mg PO DAILY 12/27/22 [History] Butalb/Acetaminophen/Caffeine [Fioricet 50-300-40 mg Capsule] 1 cap PO BID PRN 01/10/23 [History] Folic Acid 1 mg PO DAILY 01/10/23 [History] dilTIAZem HCL [dilTIAZem HCL 24Hr ER (CD)] 180 mg PO DAILY 01/10/23 [History] Mupirocin 2% Oint [Bactroban 2% Oint] 1 applic TOPICAL BID PRN 01/12/23 [History] Clopidogrel [Plavix] 75 mg PO DAILY 02/07/23 [History] Desloratadine [Clarinex] 5 mg PO DAILY 02/07/23 [History] Escitalopram [Lexapro] 5 mg PO DAILY 02/07/23 [History] Ferrous Sulfate [Iron (65 MG Elemental)] 325 mg PO DAILY 02/07/23 [History] Morphine Sulfate ER [Ms Contin] 15 mg PO Q8HR@0700,1500,2300 02/07/23 [History] Potassium Chloride Oral Liquid 40 meq PO BID 02/07/23 [History] Enoxaparin [Lovenox] 40 mg SQ Q12H 90 Days #180 each 02/09/23 [Rx] Lidocaine 5% Patch [Lidoderm 5% Patch] 1 patch TOPICAL BID 04/01/23 [History] Loperamide 1mg/7.5ml Liquid 1 - 2 mg PO TID PRN MDD 30 ml 04/01/23 [History] hydrOXYzine pamoate [hydrOXYzine PAMOATE] 25 mg PO Q6H PRN 04/01/23 [History] HYDROcodone/APAP 7.5-325MG [[place] 7.5-325] 1 - 2 tab PO Q6HR PRN #32 tab 04/04/23 [Rx] Follow up Appointment(s)/Referral(s): Migdalia Haskins PAC [PHYSICIAN MEDICAL SCIENTIFIC OFFICER] - 1 Week Bunny Mendes MD [Primary Care Provider] - 1-2 days Faraz Patrick MD [STAFF PHYSICIAN] - 2 Weeks Activity/Diet/Wound Care/Special Instructions: Special Instructions: No lifting on baring weight with right arm. Maintain right arm sling recommend repeat CBC with [facility] in 2-3 days. Discharge Disposition: HOME WITH HOME HEALTH SERVICES
--- NOTE | 2023-04-04 15:07 | P.PN ---
Subjective Progress Note Date: 04/04/23 (delayed charting seen at 0745) Patient is a 77-year-old female with multiple comorbid conditions including atrial fibrillation status postcardiac ablation and permanent pacemaker with Watchman device, coronary artery disease with stents, Diastolic congestive heart failure with EF 55-60%, GERD, hypertension, and coronary artery disease who presented to the emergency department for right shoulder pain after a fall. Patient is currently on Lovenox for A-fib and recent pulmonary embolism in January 2023. In the emergency department she underwent an extensive evaluation. Initial laboratory analysis was essentially unremarkable. Chest x- ray demonstrated COPD but no acute process. Right shoulder x-ray demonstrated a two-part humeral neck fracture with lateral displacement this was confirmed on right humerus x-ray. In the emergency department she was given Toradol and Dilaudid for pain. Arrangements were made for admission to orthopedic surgery. We were asked to consult for medical management. Patient seen and examined at bedside. She feels as though she can manage at home. She has no nausea or vomiting. We discussed the results of her x-ray and that she has a hematoma which will need to be monitored. She does feel comfortable going home with her daughter. Vital signs reviewed General: Nontoxic, no distress, appears at stated age Cardiovascular: S1S2 reg, no murmur, positive posterior tibial pulse bilateral, Lungs: CTA bilateral, no rhonchi, no rales, no accessory muscle use Abdominal: Soft, nontender to palpation, no guarding, no appreciable organomegaly Ext: No gross muscle atrophy, trace edema b/l lower extremities, no contractures, right arm in sling Neuro: CN II-XI grossly intact, no focal neuro deficits Psych: Alert, oriented, appropriate affect Assessment/Plan: 77-year-old female with right comminuted and displaced humeral fracture Mechanical Fall -Case discussed with Migdalia Haskins nurse practitioner for orthopedic surgery. Will increase norco dosing as patient has required continued dilaudid -Pain control with Dilaudid 0.5 mg to 1 mg every 3 hours. [place] 7.5/325 every 6 hours as needed for pain -MS Contin 15 mg p.o. every 8 hours Right hip hematoma - HgB stable will continued with lovenox and plavix given recent Pulmonary embolism - repeat CBC in 3 days with [facility] added to D/C instructions. Recent pulmonary embolism -Continue with Lovenox 40 mg every 12 hours Compensated diastolic congestive heart failure, EF 55-60% Hypertension Dyslipidemia Atrial fibrillation with history of tachybradycardia syndrome status post permanent pacemaker - Cardizem 60 mg 3 times daily - Lopressor 50 mg daily, amiodarone 200 mg daily -Aldactone 25 mg oral daily, Lasix 40 mg daily -Plavix 75 mg daily, ASA 81 mg daily Chronic: Hypothyroidism GERD Esophageal stricture status post multiple esophageal dilatations Anemia of chronic disease Home medical medication reconciliation addressed. Recommend repeat CBC with [facility] in 3 days. Imaging: None new Data Review: Labs reviewed today include CBC with show hemoglobin of 10.8. DVT prophylaxis: Lovenox Thank you for allowing us to participate in the care of this pleasant patient. Do not hesitate to contact us with questions. Someone can be reached from the [facility] hospitalist group all hours of the day at [phone] or via [employer]. This dictation was prepared using [employer] voice recognition software. Though every attempt is made to correct errors during dictation some may still exist. Objective - Vital Signs Vital signs: Vital Signs Temp 98.7 F 04/04/23 07:00 Pulse 61 04/04/23 07:00 Resp 16 04/04/23 07:00 BP 125/59 04/04/23 07:00 Pulse Ox 99 04/04/23 07:00 FiO2 Intake & Output 04/03/23 04/04/23 04/04/23 18:59 06:59 18:59 Intake Total 480 210 Balance 480 210 Weight 40.823 kg Intake: Oral 480 210 Other: Voiding Method Bedside Commode # Voids 1 3 1 # Bowel Movements 1 0 - Labs CBC & Chem 7: 04/04/23 06:00 04/02/23 06:55 Labs: Abnormal Lab Results - Last 24 Hours (Table) 04/04/23 Range/Units 06:00 RBC 3.51 L (3.80-5.40) m/uL Hgb 10.8 L (11.4-16.0) gm/dL RDW 18.0 H (11.5-15.5) %
== END 2023-04-04 15:26 | disposition home health service (06) ==
LOC: EC 06:13 → 6NMEDSUR 10:31
PROVIDERS: ADMIT Orthopaedic Surgery; ATTEND Orthopaedic Surgery
DX: S42.221A 2-part displaced fracture of surgical neck of right humerus, initial encounter for closed fracture (principal); S70.01XA Contusion of right hip, initial encounter; W01.0XXA Fall on same level from slipping, tripping and stumbling without subsequent striking against object, initial encounter; Y92.000 Kitchen of unspecified non-institutional (private) residence as the place of occurrence of the external cause; I48.91 Unspecified atrial fibrillation; I25.10 Atherosclerotic heart disease of native coronary artery without angina pectoris; I11.0 Hypertensive heart disease with heart failure; I50.32 Chronic diastolic (congestive) heart failure; J44.9 Chronic obstructive pulmonary disease, unspecified; M79.7 Fibromyalgia; K21.9 Gastro-esophageal reflux disease without esophagitis; E78.5 Hyperlipidemia, unspecified; E03.9 Hypothyroidism, unspecified; D63.8 Anemia in other chronic diseases classified elsewhere; K22.2 Esophageal obstruction; I25.2 Old myocardial infarction; Z86.711 Personal history of pulmonary embolism; Z86.73 Personal history of transient ischemic attack (TIA), and cerebral infarction without residual deficits; Z87.81 Personal history of (healed) traumatic fracture; Z95.0 Presence of cardiac pacemaker; Z95.5 Presence of coronary angioplasty implant and graft; Z79.01 Long term (current) use of anticoagulants; Z79.899 Other long term (current) drug therapy; Z79.82 Long term (current) use of aspirin; Z79.890 Hormone replacement therapy; Z79.02 Long term (current) use of antithrombotics/antiplatelets; Z88.2 Allergy status to sulfonamides
CPT/HCPCS: 96376 ×5; 96372 ×5; 96374; 96375; 99285; 97530 ×2; 97162; 97535 ×2; 97166 ×2; 80053 ×2; 85025; 85027 ×2; 85610; 85730; 73502; 73030; 73060; 71045; 73200; G0378 ×4; J2405 ×4; J1650 ×4; J1170 ×8; J1885

== ENCOUNTER 2023-05-15 18:22 | Observation (INO) | payer OTHER ==
--- NOTE | 2023-05-15 20:13 | ED ---
General Adult HPI - General Chief complaint: Nausea/Vomiting/Diarrhea Stated complaint: confusion N/V/D Time Seen by Provider: 05/15/23 19:21 Source: patient Mode of arrival: ambulatory Limitations: no limitations - History of Present Illness Initial comments: 77-year-old female with past medical history significant for A-fib status post ablation and permanent pacemaker with Watchman device, CAD with stents, CHF, GERD, and hypertension presenting to the ED with a chief complaint of confusion. Per patient's daughter, states recently discharged from this facility after patient sustained a fall and had a humerus fracture. Shortly after this discharge patient developed a sinus infection and was treated with antibiotics. States around this time started to develop diarrhea. Reports has had nonstop diarrhea every day since then with associated nausea. Also, family notes that patient has had intermittent episodes of confusion. Daughter notes an episode a few days ago when the patient called her and stated that she did not know where she was and was unable to recognize her furniture despite her being in her own home. Daughters state she was discharged home with opiate pain medications and has been using Imodium to treat diarrhea and therefore thought intermittent confusion secondary to these medications however with symptoms continuing patient brought to the ED for further evaluation. Patient does note some chest pain however states that this is at baseline. Also notes some shortness of breath at baseline. Patient denies fevers however notes she started to experience chills today. No other complaints. - Related Data Home Medications Medication Instructions Recorded Confirmed Metoprolol Tartrate [Lopressor] 50 mg PO DAILY 10/05/20 04/01/23 Spironolactone [Aldactone] 25 mg PO DAILY 08/04/21 04/01/23 Pantoprazole [Protonix] 40 mg PO BID 12/27/21 04/01/23 Amiodarone [Cordarone] 200 mg PO DAILY 02/03/22 04/01/23 Ondansetron [Zofran] 4 mg PO Q8H PRN 09/20/22 04/01/23 Sennosides [Senokot] 8.6 mg PO DAILY 09/20/22 04/01/23 Triamcinolone 0.5% Cream [Kenalog 1 applic TOPICAL DAILY PRN 09/20/22 04/01/23 0.5% Cream] Aspirin EC [Ecotrin Low Dose] 81 mg PO DAILY 11/13/22 04/01/23 Doxepin HCl 6 mg PO HS 11/13/22 04/01/23 Levothyroxine Sodium [Synthroid] 100 mcg PO DAILY 11/13/22 04/01/23 Furosemide [Lasix] 40 mg PO DAILY 12/27/22 04/01/23 Butalb/Acetaminophen/Caffeine 1 cap PO BID PRN 01/10/23 04/01/23 [Fioricet 50-300-40 mg Capsule] Folic Acid 1 mg PO DAILY 01/10/23 04/01/23 dilTIAZem HCL [dilTIAZem HCL 24Hr 180 mg PO DAILY 01/10/23 04/01/23 ER (CD)] Mupirocin 2% Oint [Bactroban 2% 1 applic TOPICAL BID PRN 01/12/23 04/01/23 Oint] Clopidogrel [Plavix] 75 mg PO DAILY 02/07/23 04/01/23 Desloratadine [Clarinex] 5 mg PO DAILY 02/07/23 04/01/23 Escitalopram [Lexapro] 5 mg PO DAILY 02/07/23 04/01/23 Ferrous Sulfate [Iron (65 MG 325 mg PO DAILY 02/07/23 04/01/23 Elemental)] Morphine Sulfate ER [Ms Contin] 15 mg PO Q8HR@0700,1500,2300 02/07/23 04/01/23 Potassium Chloride Oral Liquid 40 meq PO BID 02/07/23 04/01/23 Lidocaine 5% Patch [Lidoderm 5% 1 patch TOPICAL BID 04/01/23 04/01/23 Patch] Loperamide 1mg/7.5ml Liquid 1 - 2 mg PO TID PRN MDD 30 ml 04/01/23 04/01/23 hydrOXYzine pamoate [hydrOXYzine 25 mg PO Q6H PRN 04/01/23 04/01/23 PAMOATE] Previous Rx's Medication Instructions Recorded Enoxaparin [Lovenox] 40 mg SQ Q12H 90 Days #180 each 02/09/23 HYDROcodone/APAP 7.5-325MG [[place] 1 - 2 tab PO Q6HR PRN #32 tab 04/04/23 7.5-325] Allergies Allergy/AdvReac Type Severity Reaction Status Date / Time adhesive Allergy RASH FROM Verified 05/15/23 18:45 EKG STICKERS apixaban [From Eliquis] Allergy Rash/Hives Verified 05/15/23 18:45 celecoxib [From Celebrex] Allergy Rash/Hives Verified 05/15/23 18:45 sertraline HCl [From Zoloft] Allergy Rash/Hives Verified 05/15/23 18:45 sulfamethoxazole Allergy Anaphylaxis Verified 05/15/23 18:45 [From Bactrim] trimethoprim [From Bactrim] Allergy Anaphylaxis Verified 05/15/23 18:45 cholestyramine AdvReac DIZZY/CONFU Verified 05/15/23 18:45 SED Review of Systems ROS Statement: Those systems with pertinent positive or pertinent negative responses have been documented in the HPI. ROS Other: All systems not noted in ROS Statement are negative. Past Medical History Past Medical History: Atrial Fibrillation, Blood Disorder, Coronary Artery D isease (CAD), Chest Pain / Angina, Heart Failure, COPD, CVA/TIA, Fibromyalgia, GERD/Reflux, GI Bleed, Hypertension, Myocardial Infarction ([place]), Musculoskeletal Disorder, Osteoarthritis (OA), Thyroid Disorder Additional Past Medical History / Comment(s): Pacemaker for Syncope/Tachybrady Syndrome. Hx RHEUMATIC FEVER. Heart murmur, chronic back and bilateral shoulder pain. SEVERE OSTEOPROSIS, Vertigo, Degenerative Joint Disease, GI ulcers, esophagitis/esophageal stricture, partially blocked bile duct, PROBLEMS WITH SWALLOWING, "no symptoms of COPD." FALLS "Cannot lie down for long without having back pain.". Left hip open reduction internal fixation of some trochanteric comminuted femur fracture in November 2021 Last Myocardial Infarction Date:: 2002 History of Any Multi-Drug Resistant Organisms: None Reported Past Surgical History: Appendectomy, Cardiac Ablation, Cholecystectomy, Ear Surgery, Heart Catheterization, Hysterectomy, Orthopedic Surgery, Pacemaker, Tonsillectomy Additional Past Surgical History / Comment(s): ORIF LEFT LOWER ARM, HAS HARDWARE, numerous DILATATION OF ESOPHAGUS, biopsies were negative, colonoscopy, Pacemaker (ADAPTA) placed 07/07 at [facility], bilateral stapedectomies(stainless steel in both ears), Hiatal Hernia repair, inguinal and femoral hernia repairs, "cement placed in back, due to broken back/pelvis". Left Femur Surgery 12/09/21. Watchman. Past Anesthesia/Blood Transfusion Reactions: Family History of Problems w/ Anesthesia, Motion Sickness, Postoperative Nausea & Vomiting (PONV) Additional Past Anesthesia/Blood Transfusion Reaction / Comment(s): No problems with prior blood transfusion. BROTHER HAS PONV. Type of Cardiac Device: Permanent Pacemaker Device Placement Date:: 06/2016 Past Psychological History: No Psychological Hx Reported Smoking Status: Never smoker Past Alcohol Use History: None Reported Past Drug Use History: None Reported - Past Family History Brother(s) Family Medical History: Cancer Additional Family Medical History / Comment(s): Throat cancer. Father Family Medical History: Pneumonia Additional Family Medical History / Comment(s): EMPHYSEMA. Mother Family Medical History: COPD, Rheumatoid Arthritis (RA) Additional Family Medical History / Comment(s): EMPHYSEMA. General Exam Limitations: no limitations General appearance: alert, in no apparent distress Eye exam: Present: normal appearance Neck exam: Present: normal inspection Respiratory exam: Present: normal lung sounds bilaterally Cardiovascular Exam: Present: regular rate, normal rhythm GI/Abdominal exam: Present: soft Neurological exam: Present: alert, oriented X3, CN II-XII intact Skin exam: Present: warm, dry Course Vital Signs 05/15/23 18:42 Temperature 97.8 F Pulse Rate 82 Respiratory 20 Rate Blood Pressure 149/79 O2 Sat by Pulse 97 Oximetry Medical Decision Making - Medical Decision Making Was pt. sent in by a medical professional or institution (, PA, COMPUTER TESTER, urgent care, hospital, or skilled nursing...) When possible be specific @ -No Did you speak to anyone other than the patient for history (EMS, parent, family, police, friend...)? What history was obtained from this source @ -Yes, spoke to patient's daughter. For further details please see HPI. Did you review nursing and triage notes (agree or disagree)? Why? @ -I reviewed and agree with nursing and triage notes Were old charts reviewed (outside hosp., previous admission, EMS record, old EKG, old radiological studies, urgent care reports/EKG's, skilled nursing records)? Report findings @ -No old charts were reviewed Differential Diagnosis (chest pain, altered mental status, abdominal pain women, abdominal pain men, vaginal bleeding, weakness, fever, dyspnea, syncope, headache, dizziness, GI bleed, back pain, seizure, CVA, palpatations, mental health, musculoskeletal)? @ -Differential Altered Mental Status: Hypoglycemia, DKA, hypercapnia, ETOH, overdose, CO poisoning, trauma, myxedema coma, HTN encephalopathy, infection, encephalitis, psychosis, intercranial hemorrhage, hepatic encephalopathy, meningitis, CVA, this is not meant to be an all-inclusive list EKG interpreted by me (3pts min.). @ -As above X-rays interpreted by me (1pt min.). @ -Chest x-ray reveals no acute finding. Interpreted by me. CT interpreted by me (1pt min.). @ -CT brain reveals no acute findings. Interpreted by me. U/S interpreted by me (1pt. min.). @ -None done What testing was considered but not performed or refused? (CT, X-rays, U/S, labs)? Why? @ -None What meds were considered but not given or refused? Why? @ -None Did you discuss the management of the patient with other professionals (professionals i.e. , PA, COMPUTER TESTER, lab, RT, psych nurse, pediatric social worker, meat cooler, teacher, customer service officer, continuous pillowcase cutter)? Give summary @ -No Was smoking cessation discussed for >3mins.? @ -No Was critical care preformed (if so, how long)? @ -No Were there social determinants of health that impacted care today? How? (Homelessness, low income, unemployed, alcoholism, drug addiction, transportatio n, low edu. Level, literacy, decrease access to med. care, retirement, rehab)? @ -No Was there de-escalation of care discussed even if they declined (Discuss DNR or withdrawal of care, Hospice)? DNR status @ -No What co-morbidities impacted this encounter? (DM, HTN, Smoking, COPD, CAD, Cancer, CVA, ARF, Chemo, Hep., AIDS, mental health diagnosis, sleep apnea, morbid obesity)? @ -None Was patient admitted / discharged? Hospital course, mention meds given and route, prescriptions, significant lab abnormalities, going to OR and other pertinent info. @ -Admission 77-year-old female presenting to the ED with complaints of nausea, diarrhea, and intermittent altered mental status. Laboratory studies reviewed. CBC unremarkable. Chemistry panel does show elevations in BUN 24 and creatinine at 1.24, otherwise unremarkable. UA does show evidence of UTI. Urine culture obtained. Stool culture ordered. Patient will be admitted secondary to SUJIT with consult to neurology regarding intermittent confusion. CT scan of the brain performed at this time revealed no acute findings. Chest x-ray at this time reveals no evidence of pneumonia or other acute finding. Undiagnosed new problem with uncertain prognosis? @ -No Drug Therapy requiring intensive monitoring for toxicity (Heparin, Nitro, Insulin, Cardizem)? @ -No Were any procedures done? @ -No Diagnosis/symptom? @ -SUJIT, UTI Acute, or Chronic, or Acute on Chronic? @ -Acute Uncomplicated (without systemic symptoms) or Complicated (systemic symptoms)? @ -Uncomplicated Side effects of treatment? @ -No Exacerbation, Progression, or Severe Exacerbation? @ -No Poses a threat to life or bodily function? How? (Chest pain, [place], [place], pneumonia, PE, COPD, DKA, ARF, appy, cholecystitis, CVA, Diverticulitis, Homicidal, Suicidal, threat to staff... and all critical care pts) @ -No - Lab Data Result diagrams: 05/15/23 20:23 05/15/23 20:23 Lab Results 05/15/23 05/15/23 05/15/23 Range/Units 17:54 20:23 20:23 WBC 4.7 (3.8-10.6) k/uL RBC 3.99 (3.80-5.40) m/uL Hgb 13.7 (11.4-16.0) gm/dL Hct 42.1 (34.0-46.0) % MCV 105.4 H D (80.0-100.0) fL MCH 34.2 (25.0-35.0) pg MCHC 32.5 (31.0-37.0) g/dL RDW 17.4 H (11.5-15.5) % Plt Count 295 (150-450) k/uL MPV 7.8 Neutrophils % 66 % Lymphocytes % 21 % Monocytes % 8 % Eosinophils % 2 % Basophils % 1 % Neutrophils # 3.1 (1.3-7.7) k/uL Lymphocytes # 1.0 (1.0-4.8) k/uL Monocytes # 0.4 (0-1.0) k/uL Eosinophils # 0.1 (0-0.7) k/uL Basophils # 0.1 (0-0.2) k/uL Hypochromasia Slight Anisocytosis Slight Macrocytosis Marked A PT 11.1 (10.0-12.5) sec INR 1.0 (<1.2) APTT 24.5 (22.0-30.0) sec Sodium (137-145) mmol/L Potassium (3.5-5.1) mmol/L Chloride (98-107) mmol/L Carbon Dioxide (22-30) mmol/L Anion Gap mmol/L BUN (7-17) mg/dL Creatinine (0.52-1.04) mg/dL Est GFR (CKD-EPI)AfAm (>60 ml/min/1.73 sqM) Est GFR (CKD-EPI)NonAf (>60 ml/min/1.73 sqM) Glucose (74-99) mg/dL Calcium (8.4-10.2) mg/dL Total Bilirubin (0.2-1.3) mg/dL AST (14-36) U/L ALT (4-34) U/L Alkaline Phosphatase (38-126) U/L Ammonia (<30) umol/L Troponin I (0.000-0.034) ng/mL Total Protein (6.3-8.2) g/dL Albumin (3.5-5.0) g/dL Urine Color Yellow Urine Appearance Cloudy H (Clear) Urine pH 6.0 (5.0-8.0) Ur Specific [place] 1.023 (1.001-1.035) Urine Protein Trace H (Negative) Urine Glucose (UA) Negative (Negative) Urine Ketones Negative (Negative) Urine Blood Trace H (Negative) Urine Nitrite Negative (Negative) Urine Bilirubin Negative (Negative) Urine Urobilinogen 2.0 (<2.0) mg/dL Ur Leukocyte Esterase Trace H (Negative) Urine RBC 2 (0-5) /hpf Urine WBC 5 (0-5) /hpf Ur Squamous Epith Cells 9 H (0-4) /hpf Amorphous Sediment Rare H (None) /hpf Urine Bacteria Many H (None) /hpf Hyaline Casts 102 H (0-2) /lpf Urine Mucus Rare H (None) /hpf 05/15/23 05/15/23 05/15/23 Range/Units 20:23 20:23 20:23 WBC (3.8-10.6) k/uL RBC (3.80-5.40) m/uL Hgb (11.4-16.0) gm/dL Hct (34.0-46.0) % MCV (80.0-100.0) fL MCH (25.0-35.0) pg MCHC (31.0-37.0) g/dL RDW (11.5-15.5) % Plt Count (150-450) k/uL MPV Neutrophils % % Lymphocytes % % Monocytes % % Eosinophils % % Basophils % % Neutrophils # (1.3-7.7) k/uL Lymphocytes # (1.0-4.8) k/uL Monocytes # (0-1.0) k/uL Eosinophils # (0-0.7) k/uL Basophils # (0-0.2) k/uL Hypochromasia Anisocytosis Macrocytosis PT (10.0-12.5) sec INR (<1.2) APTT (22.0-30.0) sec Sodium 136 L (137-145) mmol/L Potassium 4.8 (3.5-5.1) mmol/L Chloride 100 (98-107) mmol/L Carbon Dioxide 26 (22-30) mmol/L Anion Gap 10 mmol/L BUN 24 H (7-17) mg/dL Creatinine 1.24 H (0.52-1.04) mg/dL Est GFR (CKD-EPI)AfAm 49 (>60 ml/min/1.73 sqM) Est GFR (CKD-EPI)NonAf 43 (>60 ml/min/1.73 sqM) Glucose 99 (74-99) mg/dL Calcium 9.4 (8.4-10.2) mg/dL Total Bilirubin 0.6 (0.2-1.3) mg/dL AST 42 H (14-36) U/L ALT 16 (4-34) U/L Alkaline Phosphatase 200 H (38-126) U/L Ammonia <9 (<30) umol/L Troponin I 0.019 (0.000-0.034) ng/mL Total Protein 8.1 (6.3-8.2) g/dL Albumin 4.5 (3.5-5.0) g/dL Urine Color Urine Appearance (Clear) Urine pH (5.0-8.0) Ur Specific [place] (1.001-1.035) Urine Protein (Negative) Urine Glucose (UA) (Negative) Urine Ketones (Negative) Urine Blood (Negative) Urine Nitrite (Negative) Urine Bilirubin (Negative) Urine Urobilinogen (<2.0) mg/dL Ur Leukocyte Esterase (Negative) Urine RBC (0-5) /hpf Urine WBC (0-5) /hpf Ur Squamous Epith Cells (0-4) /hpf Amorphous Sediment (None) /hpf Urine Bacteria (None) /hpf Hyaline Casts (0-2) /lpf Urine Mucus (None) /hpf Disposition Clinical Impression: SUJIT (acute kidney injury), UTI (urinary tract infection) Disposition: ADMITTED IP TO THIS [facility] Condition: Good Referrals: None,Stated [REFERRING] - 1-2 days
--- NOTE | 2023-05-15 20:34 | XR ---
EXAMINATION TYPE: XR chest 2V DATE OF EXAM: 05/15/2023 8:21 PM CLINICAL INDICATION:Female, 77 years old with history of altered mental status; COMPARISON: Chest radiographs from 04/01/2023 TECHNIQUE: XR chest 2V Frontal and lateral views of the chest. FINDINGS: Lungs/Pleura: Prominent interstitial lung markings are seen scattered throughout the lungs with klever ening of the diaphragm and increased lucency of the lung apices. No evidence of focal consolidation, pneumothorax or pleural effusion. Pulmonary vascularity: Unremarkable. Heart/mediastinum: Cardiomediastinal silhouette is unremarkable. Atrial appendage occlusion device. T wo lead cardiac conduction device overlying the left hemithorax with lead tips projecting over the ri ght ventricle and right atrium. Musculoskeletal: No acute osseous pathology. Vertebroplasty changes of the midthoracic spine. IMPRESSION: 1. No acute cardiopulmonary disease process. 2. COPD changes.
[2023-05-15 20:36] LABS: Anisocytosis Slight; Basophils # (A) 0.1 k/uL (0-0.2); Basophils % (A) 1 %; Eosinophils # (A) 0.1 k/uL (0-0.7); Eosinophils % (A) 2 %; HCT 42.1 % (34.0-46.0); HGB 13.7 gm/dL (11.4-16.0); Hypochromasia Slight; Lymphocytes % (A) 21 %; MCH 34.2 pg (25.0-35.0); MCHC 32.5 g/dL (31.0-37.0); MCV 105.4 fL (80.0-100.0); Macrocytosis Marked; Mean Platelet Volume 7.8; Monocytes # (A) 0.4 k/uL (0-1.0); Monocytes % (A) 8 %; Neutrophils # (A) 3.1 k/uL (1.3-7.7); Neutrophils % (A) 66 %; Platelet Count 295 k/uL (150-450); RBC 3.99 m/uL (3.80-5.40); RDW 17.4 % (11.5-15.5); WBC 4.7 k/uL (3.8-10.6)
[2023-05-15 20:38] LABS: Partial Thromboplastin Time 24.5 sec (22.0-30.0); Prothrombin Time 11.1 sec (10.0-12.5)
--- NOTE | 2023-05-15 20:42 | CT ---
EXAMINATION TYPE: CT brain wo con CT DLP: 1063.4 mGycm, Automated exposure control for dose reduction was used. DATE OF EXAM: 05/15/2023 8:36 PM COMPARISON: 12/11/2022. CLINICAL INDICATION:Female, 77 years old with history of AMS, AMS, increased confusion. TECHNIQUE: Brain: Axial CT images of the brain were obtained with coronal and sagittal reformats created and rev iewed. Contrast used: None. Oral contrast used: None. FINDINGS: Brain: Extra-axial spaces: No abnormal extra-axial fluid collections. Ventricular system: Dilatation in proportion to cerebral atrophy. Cerebral parenchyma: Cerebral atrophy. No acute intraparenchymal hemorrhage or mass effect. The finn -white junction is well differentiated. Scattered hypoattenuating areas are seen within the white mat ter. Cerebellum: Unremarkable. Mass effect: No evidence of midline shift. Intracranial vasculature: Atherosclerotic calcifications of the intracranial vessels. Soft tissues: Normal. Calvarium/osseous structures: No depressed skull fracture. Paranasal sinuses and mastoid air cells: Mild scattered paranasal sinus disease. Visualized orbits: Orbital contents are intact. IMPRESSION: 1. No acute intracranial process. 2. Nonspecific white matter changes, likely secondary to chronic small vessel ischemic disease.
[2023-05-15 20:43] LABS: ALT 16 U/L (4-34); African American GFR (CKD) 49 (>60 ml/min/1.73 sqM); Albumin 4.5 g/dL (3.5-5.0); Anion Gap 10 mmol/L; Blood Urea Nitrogen 24 mg/dL (7-17); Calcium 9.4 mg/dL (8.4-10.2); Carbon Dioxide 26 mmol/L (22-30); Chloride 100 mmol/L (98-107); Glucose 99 mg/dL (74-99); Non-African American GFR(CKD) 43 (>60 ml/min/1.73 sqM); Sodium 136 mmol/L (137-145); Total Bilirubin 0.6 mg/dL (0.2-1.3); Total Protein 8.1 g/dL (6.3-8.2)
[2023-05-15 20:57] LABS: AST 42 U/L (14-36); Alkaline Phosphatase 200 U/L (38-126); Potassium 4.8 mmol/L (3.5-5.1)
[2023-05-15 21:46] LABS: Amorphous Sediment,Urine Rare /hpf; Appearance,Urine Cloudy (Clear); Bacteria,Urine Many /hpf; Bilirubin,Urine Negative (Negative); Blood,Urine Trace (Negative); Color,Urine Yellow; Glucose,Urine (UA) Negative (Negative); Hyaline Casts,Urine 102 /lpf (0-2); Ketones,Urine Negative (Negative); Leukocyte Esterase,Urine Trace (Negative); Mucus,Urine Rare /hpf; Nitrite,Urine Negative (Negative); Protein,Urine Trace (Negative); RBC,Urine 2 /hpf (0-5); Specific Gravity,Urine 1.023 (1.001-1.035); Squamous Epithelial Cell,Urine 9 /hpf (0-4); WBC,Urine 5 /hpf (0-5)
[2023-05-15] MEDS ORDERED: NALOXONE 0.4 MG/ML 1 ML VIAL IV PRN (22:54)
[2023-05-15] MEDS ORDERED: ACETAMINOPHEN TAB 325 MG TAB PO PRN (22:57)
[2023-05-16] MEDS: SODIUM CHLORIDE 0.9% 1,000 ML IV SCH ×3 (00:47→21:36)
[2023-05-16] MEDS: HYDROmorphone 0.5 MG/0.5 ML SYRINGE IVP PRN (02:54)
--- NOTE | 2023-05-16 04:35 | P.HPIM ---
History of Present Illness H&P Date: 05/15/23 Chief Complaint: diarrhea 77 year old female with Afib s/p ablation watchman , recent fall and multiple fractures couple months ago , diagnosed with multiple PE afterwhich, she is currently on lovenox sc BID due to allergies to eliquis she is here reporting ongoing diarrhea for about 3-5 months , denies any fever chills, chest pain or trouble breathing. she does report nausea and vomiting occasionally , no GI bleeding , denies blood in her stool . denies any urinary changes. she does report lower abd pain sharp in nature suprapubic not related to activity or bowel movements. she is not clear about why she decided to come in to day for evalution of her diarrhea . she denies any recent falls, she lives alone. denies tobacco smoking or illicit drugs or heavy alcohol review of systems Pertinent positives as noted in HPI. All other systems were reviewed and are negative on exam Constitutional: No acute distress, conversant, pleasant Eyes: Anicteric sclerae, moist conjunctiva, Pupils equal round reactive to light ENMT: NC/AT Oropharynx clear, no erythema, or exudates Neck: Supple, no masses, or JVD No carotid bruits No thyromegaly Lungs: Clear to auscultation Clear to percussion Normal respiratory effort, no accessory muscle use Cardiovascular: Heart regular in rate and rhythm, No murmurs, gallops, or rubs No peripheral edema Abdominal: Soft tenderness to deep palpation of the suprapubic region , no guarding, rebound or rigidity Abdomen moving with respiration Normoactive bowel sounds No hepatomegaly, No splenomegaly No palpable mass No abdominal wall hernia noted Extremities: No digital cyanosis No clubbing Pedal pulses intact and symmetrical Radial pulses intact and symmetrical No calf tenderness Psychiatric: Alert and oriented to person, place Neuro Muscles Strength 4/5 in all 4 extremities Sensation to light touch grossly present throughout Cranial nerves II-XII grossly intact Lymphatics: no palpable cervical or supraclavicular lymph nodes Past Medical History Past Medical History: Atrial Fibrillation, Blood Disorder, Coronary Artery Disease (CAD), Chest Pain / Angina, Heart Failure, COPD, CVA/TIA, Fibromyalgia, GERD/Reflux, GI Bleed, Hypertension, Myocardial Infarction (HI), Musculoskeletal Disorder, Osteoarthritis (OA), Thyroid Disorder Additional Past Medical History / Comment(s): Pacemaker for Syncope/Tachybrady Syndrome. Hx RHEUMATIC FEVER. Heart murmur, chronic back and bilateral shoulder pain. SEVERE OSTEOPROSIS, Vertigo, Degenerative Joint Disease, GI ulcers, esophagitis/esophageal stricture, partially blocked bile duct, PROBLEMS WITH SWA LLOWING, "no symptoms of COPD." FALLS "Cannot lie down for long without having back pain.". Left hip open reduction internal fixation of some trochanteric comminuted femur fracture in November 2021 Last Myocardial Infarction Date:: 2002 History of Any Multi-Drug Resistant Organisms: None Reported Past Surgical History: Appendectomy, Cardiac Ablation, Cholecystectomy, Ear Surgery, Heart Catheterization, Hysterectomy, Orthopedic Surgery, Pacemaker, Tonsillectomy Additional Past Surgical History / Comment(s): ORIF LEFT LOWER ARM, HAS HARDWARE, numerous DILATATION OF ESOPHAGUS, biopsies were negative, colonoscopy, Pacemaker (ADAPTA) placed 07/07 at [facility], bilateral stapedectomies(stainless steel in both ears), Hiatal Hernia repair, inguinal and femoral hernia repairs, "cement placed in back, due to broken back/pelvis". Left Femur Surgery 12/09/21. Watchman. Past Anesthesia/Blood Transfusion Reactions: Family History of Problems w/ Anesthesia, Motion Sickness, Postoperative Nausea & Vomiting (PONV) Additional Past Anesthesia/Blood Transfusion Reaction / Comment(s): No problems with prior blood transfusion. BROTHER HAS PONV. Type of Cardiac Device: Permanent Pacemaker Device Placement Date:: 06/2016 Past Psychological History: No Psychological Hx Reported Smoking Status: Never smoker Past Alcohol Use History: None Reported Past Drug Use History: None Reported - Past Family History Brother(s) Family Medical History: Cancer Additional Family Medical History / Comment(s): Throat cancer. Father Family Medical History: Pneumonia Additional Family Medical History / Comment(s): EMPHYSEMA. Mother Family Medical History: COPD, Rheumatoid Arthritis (RA) Additional Family Medical History / Comment(s): EMPHYSEMA. Medications and Allergies Home Medications Medication Instructions Recorded Confirmed Type Metoprolol Tartrate [Lopressor] 50 mg PO DAILY 10/05/20 05/15/23 History Spironolactone [Aldactone] 25 mg PO DAILY 08/04/21 05/15/23 History Pantoprazole [Protonix] 40 mg PO BID 12/27/21 05/15/23 History Amiodarone [Cordarone] 200 mg PO DAILY 02/03/22 05/15/23 History Ondansetron [Zofran] 4 mg PO Q8H PRN 09/20/22 05/15/23 History Sennosides [Senokot] 8.6 mg PO DAILY 09/20/22 05/15/23 History Triamcinolone 0.5% Cream [Kenalog 1 applic TOPICAL DAILY PRN 09/20/22 05/15/23 History 0.5% Cream] Aspirin EC [Ecotrin Low Dose] 81 mg PO DAILY 11/13/22 05/15/23 History Doxepin HCl 6 mg PO HS 11/13/22 05/15/23 History Levothyroxine Sodium [Synthroid] 100 mcg PO DAILY 11/13/22 05/15/23 History Furosemide [Lasix] 40 mg PO DAILY 12/27/22 05/15/23 History Butalb/Acetaminophen/Caffeine 1 cap PO BID PRN 01/10/23 05/15/23 History [Fioricet 50-300-40 mg Capsule] Folic Acid 1 mg PO DAILY 01/10/23 05/15/23 History dilTIAZem HCL [dilTIAZem HCL 24Hr 180 mg PO DAILY 01/10/23 05/15/23 History ER (CD)] Mupirocin 2% Oint [Bactroban 2% 1 applic TOPICAL BID PRN 01/12/23 05/15/23 History Oint] Clopidogrel [Plavix] 75 mg PO DAILY 02/07/23 05/15/23 History Desloratadine [Clarinex] 5 mg PO DAILY 02/07/23 05/15/23 History Escitalopram [Lexapro] 5 mg PO DAILY 02/07/23 05/15/23 History Ferrous Sulfate [Iron (65 MG 325 mg PO DAILY 02/07/23 05/15/23 History Elemental)] Morphine Sulfate ER [Ms Contin] 15 mg PO Q8HR@0700,1500,2300 02/07/23 05/15/23 History Potassium Chloride Oral Liquid 40 meq PO BID 02/07/23 05/15/23 History Enoxaparin [Lovenox] 40 mg SQ Q12H 90 Days #180 each 02/09/23 05/15/23 Rx Lidocaine 5% Patch [Lidoderm 5% 1 patch TRANSDERM BID 04/01/23 05/15/23 History Patch] Loperamide 1mg/7.5ml Liquid 1 - 2 mg PO TID PRN MDD 30 ml 04/01/23 05/15/23 Hist ory hydrOXYzine pamoate [hydrOXYzine 25 mg PO Q6H PRN 04/01/23 05/15/23 History PAMOATE] HYDROcodone/APAP 7.5-325MG [[place]uela 1 - 2 tab PO Q6HR PRN #32 tab 04/04/23 05/15/23 Rx 7.5-325] Allergies Allergy/AdvReac Type Severity Reaction Status Date / Time adhesive Allergy RASH FROM Verified 05/15/23 18:45 EKG STICKERS apixaban [From Eliquis] Allergy Rash/Hives Verified 05/15/23 18:45 celecoxib [From Celebrex] Allergy Rash/Hives Verified 05/15/23 18:45 sertraline HCl [From Zoloft] Allergy Rash/Hives Verified 05/15/23 18:45 sulfamethoxazole Allergy Anaphylaxis Verified 05/15/23 18:45 [From Bactrim] trimethoprim [From Bactrim] Allergy Anaphylaxis Verified 05/15/23 18:45 cholestyramine AdvReac DIZZY/CONFU Verified 05/15/23 18:45 SED Physical Exam Vitals: Vital Signs Temp Pulse Resp BP Pulse Ox 05/15/23 18:42 97.8 F 82 20 149/79 97 Intake and Output 05/15/23 05/15/23 05/16/23 14:59 22:59 06:59 Other: Weight 39.916 kg Results CBC & Chem 7: 05/15/23 20:23 05/15/23 20:23 Labs: Abnormal Lab Results - Last 24 Hours (Table) 05/15/23 05/15/23 05/15/23 Range/Units 17:54 20:23 20:23 MCV 105.4 H D (80.0-100.0) fL RDW 17.4 H (11.5-15.5) % Macrocytosis Marked A Sodium 136 L (137-145) mmol/L BUN 24 H (7-17) mg/dL Creatinine 1.24 H (0.52-1.04) mg/dL AST 42 H (14-36) U/L Alkaline Phosphatase 200 H (38-126) U/L Urine Appearance Cloudy H (Clear) Urine Protein Trace H (Negative) Urine Blood Trace H (Negative) Ur Leukocyte Esterase Trace H (Negative) Ur Squamous Epith Cells 9 H (0-4) /hpf Amorphous Sediment Rare H (None) /hpf Urine Bacteria Many H (None) /hpf Hyaline Casts 102 H (0-2) /lpf Urine Mucus Rare H (None) /hpf Assessment and Plan Assessment: 77 year old female with afib s/o ablation , watchman , and PPM, hypertension , recent multiple PEs on lovenox , coming in due to chronic diarrhea , I discussed the case with ED doc and I accepted the admission for SUJIT on CKD, diarrhea with anticipated length of stay < 2 midnights chronic diarrhea check C diff GI consult gentle IVF hydration , NS 75 cc per hour supportive care zofran PRN 4 mg IVP q 8 hours Pain control with opiates, patient takes at home, as as needed Dilaudid for breakthrough pain afib s/p watchman , PPM continue amiodarone continue deltiazim recent history of bilateral PE resume lovenox 40 mg SC bid reports allergies to eliquis Check venous Doppler ultrasound bilateral legs due to swelling and tenderness of the calf muscle of the right leg SUJIT on CKD avoid nephrotoxic meds IVF hydration with normal saline 75 cc per hour follow up renal function Sodium 136 potassium 4.8 BUN 24 creatinine 1.24 Patient received one-time dose of Rocephin in the ED for presumed urinary tract infection UA unremarkable with positive squamous cells possibly dirty sample follow-up cultures Hold off antibiotics for now, patient afebrile white count 4.[address] of the brain negative for any acute pathology DVT prophylaxis on Lovenox fully anticoagulated for recent history of PE
[2023-05-16] MEDS: HYDROmorphone 1 MG/ML 1 ML SYRINGE IVP PRN ×4 (05:52→21:46)
[2023-05-16] MEDS ORDERED: ENOXAPARIN 40 MG/0.4 ML SYRINGE SQ SCH (07:00)
[2023-05-16] MEDS: LEVOTHYROXINE 100 MCG TAB PO SCH (07:03)
[2023-05-16] MEDS: PANTOPRAZOLE 40 MG TABLET PO SCH ×2 (07:03→17:06)
[2023-05-16] MEDS: MORPHINE SULFATE ER 15 MG TABLET PO SCH ×3 (08:13→22:59)
[2023-05-16] MEDS: AMIODARONE 200 MG TAB PO SCH (08:15)
[2023-05-16] MEDS: ASPIRIN 81 MG PO SCH (08:15)
[2023-05-16] MEDS: METOPROLOL TARTRATE 50 MG TAB PO SCH (08:15)
[2023-05-16] MEDS: CLOPIDOGREL 75 MG TAB PO SCH (08:16)
--- NOTE | 2023-05-16 08:22 | US ---
EXAMINATION TYPE: US venous doppler duplex LE BI DATE OF EXAM: 05/16/2023 7:39 AM COMPARISON: 02/07/2023 CLINICAL INDICATION: Female, 77 years old with history of swollen right leg with calf tender; SIDE PERFORMED: edema TECHNIQUE: The lower extremity deep venous system is examined utilizing real time linear array sonog guillermina with graded compression, doppler sonography and color-flow sonography. VESSELS IMAGED: Common Femoral Vein Deep Femoral Vein Greater Saphenous Vein * Femoral Vein Popliteal Vein Small Saphenous Vein * Proximal Calf Veins (* superficial vessels) Right Leg: Negative for DVT Left Leg: Negative for DVT IMPRESSION: Grayscale, color doppler, spectral doppler imaging performed of the deep veins of the lo wer extremities. There is normal flow, compressibility, vascular waveforms.
[2023-05-16] MEDS ORDERED: DILTIAZEM CD 180 MG CAP.ER.24H PO SCH (09:00)
[2023-05-16] MEDS: ESCITALOPRAM 5 MG TAB PO SCH (09:34)
[2023-05-16] MEDS: DILTIAZEM ORAL 60 MG TAB PO SCH ×2 (10:14→17:06)
[2023-05-16] MEDS ORDERED: BUTALB/APAP/CAFF 50-325-40MG TAB PO PRN (11:21)
--- NOTE | 2023-05-16 12:24 | P.PN ---
Subjective Hospital course Patient is a 77-year-old female with a past medical history of atrial fibrillation status post ablation and Watchman device who recently came in for multiple falls and fractures about a month ago and was diagnosed with a pulmonary embolism and was sent home on Lovenox SQ twice daily due to allergies from Eliquis who presents to the ED with ongoing diarrhea for 3 weeks and also nausea and vomiting. Patient admitted to the medicine service for GI evaluation. This morning patient states that she still feels nauseated however is able to keep her drinks down. Patient states that she also does have some dysphagia similar to when she had esophageal strictures. Patient states that she has not had a bowel movement yet however she feels that she has to go soon. Physical exam General examination - Alert and Oriented 3 in NAD Heart - + S1S2 no murmurs Lungs - Clear to auscultation Abdomen soft NT ND +ve BS Extremities - No edema STORE HOST - Moving all 4 extremities spontaneously Psych - Calm and cooperative Assessment and plan Chronic diarrhea Awaiting for patient to have a bowel movement so that we can obtain a C. diffici le sample GI consult Chronic nausea and vomiting Patient states that she has a history of esophageal strictures GI consult Recent history of bilateral PE Resume Lovenox 40 mg SQ twice daily Patient states that she has an allergy to Eliquis Acute kidney injury on CKD stage II Baseline creatinine less than 1 Avoid nephrotoxic meds Continue normal saline at 75 cc an hour Asymptomatic bacteriuria No need to treat Migraine Will start Fioricet DVT prophylaxis: Lovenox Objective - Vital Signs Vital signs: Vital Signs Temp 97.8 F 05/15/23 18:42 Pulse 64 05/16/23 05:00 Resp 19 05/16/23 04:00 BP 128/67 05/16/23 05:00 Pulse Ox 97 05/16/23 05:00 FiO2 Intake & Output 05/15/23 05/16/23 05/16/23 18:59 06:59 18:59 Weight 39.916 kg - Labs CBC & Chem 7: 05/15/23 20:23 05/15/23 20:23 Labs: Abnormal Lab Results - Last 24 Hours (Table) 05/15/23 05/15/23 05/15/23 Range/Units 17:54 20:23 20:23 MCV 105.4 H D (80.0-100.0) fL RDW 17.4 H (11.5-15.5) % Macrocytosis Marked A Sodium 136 L (137-145) mmol/L BUN 24 H (7-17) mg/dL Creatinine 1.24 H (0.52-1.04) mg/dL AST 42 H (14-36) U/L Alkaline Phosphatase 200 H (38-126) U/L Urine Appearance Cloudy H (Clear) Urine Protein Trace H (Negative) Urine Blood Trace H (Negative) Ur Leukocyte Esterase Trace H (Negative) Ur Squamous Epith Cells 9 H (0-4) /hpf Amorphous Sediment Rare H (None) /hpf Urine Bacteria Many H (None) /hpf Hyaline Casts 102 H (0-2) /lpf Urine Mucus Rare H (None) /hpf
[2023-05-16 13:42] VITALS: BMI 16.6
[2023-05-16] MEDS: ONDANSETRON 4 MG/2 ML VIAL IVP PRN (16:37)
[2023-05-16] MEDS ORDERED: DOXEPIN HCL 6 MG PO SCH (21:00)
[2023-05-17] MEDS: DILTIAZEM ORAL 60 MG TAB PO SCH ×3 (00:13→15:13)
[2023-05-17] MEDS: SODIUM CHLORIDE 0.9% 1,000 ML IV SCH (02:22)
[2023-05-17] MEDS: HYDROmorphone 0.5 MG/0.5 ML SYRINGE IVP PRN ×3 (05:44→10:45)
[2023-05-17 06:19] LABS: Anisocytosis Slight; Basophils # (A) 0.1 k/uL (0-0.2); Basophils % (A) 2 %; Eosinophils # (A) 0.2 k/uL (0-0.7); Eosinophils % (A) 4 %; HGB 12.7 gm/dL (11.4-16.0); Hypochromasia Marked; Lymphocytes # (A) 1.2 k/uL (1.0-4.8); Lymphocytes % (A) 30 %; MCHC 30.9 g/dL (31.0-37.0); MCV 110.1 fL (80.0-100.0); Macrocytosis Marked; Mean Platelet Volume 7.8; Monocytes # (A) 0.4 k/uL (0-1.0); Monocytes % (A) 9 %; Neutrophils # (A) 2.1 k/uL (1.3-7.7); Neutrophils % (A) 52 %; Platelet Count 261 k/uL (150-450); RBC 3.72 m/uL (3.80-5.40); RDW 17.4 % (11.5-15.5); WBC 4.2 k/uL (3.8-10.6)
[2023-05-17] MEDS: MORPHINE SULFATE ER 15 MG TABLET PO SCH ×2 (06:31→15:12)
[2023-05-17] MEDS: LEVOTHYROXINE 100 MCG TAB PO SCH (06:32)
[2023-05-17] MEDS: PANTOPRAZOLE 40 MG TABLET PO SCH (06:32)
[2023-05-17] MEDS: METOPROLOL TARTRATE 50 MG TAB PO SCH (08:17)
[2023-05-17] MEDS: ASPIRIN 81 MG PO SCH (08:17)
[2023-05-17] MEDS: ESCITALOPRAM 5 MG TAB PO SCH (08:17)
[2023-05-17] MEDS: CLOPIDOGREL 75 MG TAB PO SCH (08:17)
[2023-05-17] MEDS: AMIODARONE 200 MG TAB PO SCH (08:17)
[2023-05-17 09:00] LABS: Blood Urea Nitrogen 12.1 mg/dL (9.0-27.0); Calcium 9.2 mg/dL (8.7-10.3); Carbon Dioxide 27.5 mmol/L (21.6-31.8); Chloride 99 mmol/L (96-109); Glucose 77 mg/dL (70-110); Magnesium 2.5 mg/dL (1.5-2.4); Potassium 4.1 mmol/L (3.5-5.5); Sodium 138 mmol/L (135-145)
[2023-05-17] MEDS ORDERED: ENOXAPARIN 40 MG/0.4 ML SYRINGE SQ SCH ×2 (09:00→21:00)
[2023-05-17] MEDS: ONDANSETRON 4 MG/2 ML VIAL IVP PRN (09:03)
--- NOTE | 2023-05-17 11:18 | P.DS ---
Providers Date of admission: 05/15/23 22:57 Attending physician: Chio Beckett MD Consults: 05/16/23 04:49 Consult Physician Routine Consulting Provider: Bruna Llamas Consult Reason/Comments: chronic diarrhea Do you want consulting provider notified?: Yes, Notify in am Primary care physician: Lina Araujo Hospital Course: Discharge Diagnosis: Chronic diarrhea Chronic nausea and vomiting Recent history of bilateral PEs Acute kidney injury on CKD stage II Asymptomatic bacteriuria Migraine Hospital Course: Patient is a 77-year-old female with a past medical history of atrial fibrillation status post ablation and Watchman device who recently came in for multiple falls and fractures about a month ago and was diagnosed with a pulmonary embolism and was sent home on Lovenox SQ twice daily due to allergies from Eliquis who presents to the ED with ongoing diarrhea for 3 weeks and also nausea and vomiting. Patient admitted to the medicine service for GI evaluation. Patient stool sample was negative for C. difficile. At the time of discharge patient reported that her stool was more formed. I also confirmed this with the nurse. Patient is able to tolerate liquids. Her acute kidney injury resolved with fluids. Unfortunately no GI was available this week. However patient states that she has an appointment with GI early next week. Patient was deemed stable for discharge and instructed to follow-up with gastroenterology. Patient seen and examined at bedside.[] Vital signs reviewed and stable. General: [non toxic], [no distress], [appears at stated age] Derm: [warm], [dry] Head: [atraumatic], [normocephalic], [symmetric] Eyes: [EOMI], [no lid lag], [anicteric sclera] Mouth: [no lip lesion], [mucus membranes moist] Cardiovascular: [S1S2 reg], [no murmur], [positive posterior tibial pulse bilateral], Lungs: [CTA bilateral], [no rhonchi, no rales] , [no accessory muscle use] Abdominal: [soft], [ nontender to palpation], [no guarding], [no appreciable organomegaly] Ext: [no gross muscle atrophy], [no edema], [no contractures] Neuro: [ CN II-XI grossly intact], [no focal neuro deficits] Psych: [Alert], [oriented], [appropriate affect] A total of [33] minutes of time were spent preparing this complex discharge summary . Patient Condition at Discharge: Good Plan - Discharge Summary New Discharge Prescriptions: No Action Metoprolol Tartrate [Lopressor] 50 mg PO DAILY Amiodarone [Cordarone] 200 mg PO DAILY Ondansetron [Zofran] 4 mg PO Q8H PRN PRN Reason: Nausea And Vomiting Triamcinolone 0.5% Cream [Kenalog 0.5% Cream] 1 applic TOPICAL DAILY PRN PRN Reason: Rash Sennosides [Senokot] 8.6 mg PO DAILY Doxepin HCl 6 mg PO HS Furosemide [Lasix] 40 mg PO DAILY dilTIAZem HCL [dilTIAZem HCL 24Hr ER (CD)] 180 mg PO DAILY Mupirocin 2% Oint [Bactroban 2% Oint] 1 applic TOPICAL BID PRN PRN Reason: back sores Desloratadine [Clarinex] 5 mg PO DAILY Enoxaparin [Lovenox] 40 mg SQ Q12H 90 Days #180 each Spironolactone [Aldactone] 25 mg PO DAILY Pantoprazole [Protonix] 40 mg PO BID Aspirin EC [Ecotrin Low Dose] 81 mg PO DAILY Levothyroxine Sodium [Synthroid] 100 mcg PO DAILY Butalb/Acetaminophen/Caffeine [Fioricet 50-300-40 mg Capsule] 1 cap PO BID PRN PRN Reason: Migraine Headache Folic Acid 1 mg PO DAILY Morphine Sulfate ER [Ms Contin] 15 mg PO Q8HR@0700,1500,2300 Ferrous Sulfate [Iron (65 MG Elemental)] 325 mg PO DAILY Clopidogrel [Plavix] 75 mg PO DAILY Potassium Chloride Oral Liquid 40 meq PO BID Escitalopram [Lexapro] 5 mg PO DAILY Loperamide 1mg/7.5ml Liquid 1 - 2 mg PO TID PRN MDD 30 ml PRN Reason: Diarrhea hydrOXYzine pamoate [hydrOXYzine PAMOATE] 25 mg PO Q6H PRN PRN Reason: Anxiety Lidocaine 5% Patch [Lidoderm 5% Patch] 1 patch TRANSDERM BID HYDROcodone/APAP 7.5-325MG [[place] 7.5-325] 1 - 2 tab PO Q6HR PRN #32 tab PRN Reason: Pain Discharge Medication List Metoprolol Tartrate [Lopressor] 50 mg PO DAILY 10/05/20 [History] Spironolactone [Aldactone] 25 mg PO DAILY 08/04/21 [History] Pantoprazole [Protonix] 40 mg PO BID 12/27/21 [History] Amiodarone [Cordarone] 200 mg PO DAILY 02/03/22 [History] Ondansetron [Zofran] 4 mg PO Q8H PRN 09/20/22 [History] Sennosides [Senokot] 8.6 mg PO DAILY 09/20/22 [History] Triamcinolone 0.5% Cream [Kenalog 0.5% Cream] 1 applic TOPICAL DAILY PRN 09/20/22 [History] Aspirin EC [Ecotrin Low Dose] 81 mg PO DAILY 11/13/22 [History] Doxepin HCl 6 mg PO HS 11/13/22 [History] Levothyroxine Sodium [Synthroid] 100 mcg PO DAILY 11/13/22 [History] Furosemide [Lasix] 40 mg PO DAILY 12/27/22 [History] Butalb/Acetaminophen/Caffeine [Fioricet 50-300-40 mg Capsule] 1 cap PO BID PRN 01/10/23 [History] Folic Acid 1 mg PO DAILY 01/10/23 [History] dilTIAZem HCL [dilTIAZem HCL 24Hr ER (CD)] 180 mg PO DAILY 01/10/23 [History] Mupirocin 2% Oint [Bactroban 2% Oint] 1 applic TOPICAL BID PRN 01/12/23 [History] Clopidogrel [Plavix] 75 mg PO DAILY 02/07/23 [History] Desloratadine [Clarinex] 5 mg PO DAILY 02/07/23 [History] Escitalopram [Lexapro] 5 mg PO DAILY 02/07/23 [History] Ferrous Sulfate [Iron (65 MG Elemental)] 325 mg PO DAILY 02/07/23 [History] Morphine Sulfate ER [Ms Contin] 15 mg PO Q8HR@0700,1500,2300 02/07/23 [History] Potassium Chloride Oral Liquid 40 meq PO BID 02/07/23 [History] Enoxaparin [Lovenox] 40 mg SQ Q12H 90 Days #180 each 02/09/23 [Rx] Lidocaine 5% Patch [Lidoderm 5% Patch] 1 patch TRANSDERM BID 04/01/23 [History] Loperamide 1mg/7.5ml Liquid 1 - 2 mg PO TID PRN MDD 30 ml 04/01/23 [History] hydrOXYzine pamoate [hydrOXYzine PAMOATE] 25 mg PO Q6H PRN 04/01/23 [History] HYDROcodone/APAP 7.5-325MG [[place] 7.5-325] 1 - 2 tab PO Q6HR PRN #32 tab 04/04/23 [Rx] Follow up Appointment(s)/Referral(s): None,Stated [REFERRING] - 1-2 days
[2023-05-17 14:18] VITALS: BP 122/78; PULSE 66; RESP 17; TEMP 98
== END 2023-05-17 17:04 | disposition home or self-care (01) ==
LOC: EC 18:22 → 6NMEDSUR 22:57
PROVIDERS: ADMIT Internal Medicine; ATTEND Internal Medicine
DX: K52.9 Noninfective gastroenteritis and colitis, unspecified (principal); I48.91 Unspecified atrial fibrillation; I25.10 Atherosclerotic heart disease of native coronary artery without angina pectoris; N17.9 Acute kidney failure, unspecified; I13.0 Hypertensive heart and chronic kidney disease with heart failure and stage 1 through stage 4 chronic kidney disease, or unspecified chronic kidney disease; N18.2 Chronic kidney disease, stage 2 (mild); I50.9 Heart failure, unspecified; K21.9 Gastro-esophageal reflux disease without esophagitis; J44.9 Chronic obstructive pulmonary disease, unspecified; G43.909 Migraine, unspecified, not intractable, without status migrainosus; R82.71 Bacteriuria; I25.2 Old myocardial infarction; Z86.711 Personal history of pulmonary embolism; Z86.73 Personal history of transient ischemic attack (TIA), and cerebral infarction without residual deficits; Z95.0 Presence of cardiac pacemaker; Z95.5 Presence of coronary angioplasty implant and graft; Z79.899 Other long term (current) drug therapy; Z79.01 Long term (current) use of anticoagulants; Z79.82 Long term (current) use of aspirin; Z79.890 Hormone replacement therapy; Z79.02 Long term (current) use of antithrombotics/antiplatelets; Z88.2 Allergy status to sulfonamides; Z88.6 Allergy status to analgesic agent
CPT/HCPCS: 96376 ×3; 96361 ×3; 96372 ×2; 96365; 96375; 99285; 36415; 93005; 80053; 80048; 82140; 83735; 84484; 85025 ×2; 85610; 85730; 81001; 87040; 87324; 71046; 93970; 70450; G0378 ×4; J2405 ×2; J1650 ×2; J0696; J1170 ×3

== ENCOUNTER → 2023-05-28 | Outpatient (CLI) | payer OTHER ==
[2023-05-28 12:38] LABS: Blood Urea Nitrogen 35 mg/dL (7-17)
[2023-05-28 12:43] LABS: African American GFR (CKD) 60 (>60 ml/min/1.73 sqM); Non-African American GFR(CKD) 52 (>60 ml/min/1.73 sqM)
--- NOTE | 2023-05-28 13:42 | CT ---
EXAMINATION TYPE: CT angio chest DATE OF EXAM: 05/28/2023 COMPARISON: 12/31/2022 HISTORY: HX PE CT DLP: 142.20 mGycm CONTRAST: CT chest with contrast and 3D reconstruction with MIP imaging is performed with IV Contrast, patient injected with 80 mL of Isovue 370. Contrast-enhanced CT of the chest was performed through the course of the pulmonary arteries with raimundo g and mediastinal window settings submitted. 3D reconstruction with MIP imaging was also performed. PULMONARY ARTERIES: The pulmonary arteries and their major tributaries are patent. I do not see soren dence for sizable filling defect to suggest pulmonary embolic process. LUNGS: Hyperinflation compatible COPD. The lungs are clear and free of infiltrate. No evidence for at electasis. No pulmonary nodule or mass is detected. No pleural effusion. MEDIASTINUM: Thoracic aorta is of normal caliber . The heart is not enlarged. No evidence for media stinal mass. No mediastinal lymph nodes greater than 1cm. HILAR STRUCTURES: No evidence for mass. No hilar lymph nodes greater than 1 cm. UPPER ABDOMEN: No significant abnormality is seen. IMPRESSION: 1. No evidence for Pulmonary embolism at this time.
== END | disposition home or self-care (01) ==
LOC: RADCTMAIN 09:13
PROVIDERS: ATTEND Internal Medicine Critical Care Medicine
DX: Z01.810 Encounter for preprocedural cardiovascular examination (principal); I26.99 Other pulmonary embolism without acute cor pulmonale; I48.20 Chronic atrial fibrillation, unspecified; I25.10 Atherosclerotic heart disease of native coronary artery without angina pectoris; R79.1 Abnormal coagulation profile
CPT/HCPCS: 82565; 84520; 71275; Q9967

== ENCOUNTER → 2023-05-28 | Outpatient (CLI) | payer OTHER ==
[~2023-05-28] MED LIST changes: -DEXAMETHASONE SOD PHOSPHATE 4 MG/ML 1 ML VIAL IV ONE; -LIDOCAINE 1% (10MG/ML) FOR IV START INTRADERMA PRN; -ONDANSETRON 4 MG/2 ML VIAL IVP ONE; +SODIUM CHLORIDE 0.9% 1,000 ML IV NR; +SODIUM CHLORIDE 0.9% 500 ML 500 ML in EMPTY BAG 1 BAG IV PRN
[2023-05-28] MEDS: SODIUM CHLORIDE 0.9% 1,000 ML IV NR (10:14)
[2023-05-28 10:17] VITALS: BP 92/62; PULSE 88; RESP 16; TEMP 98.2
== END ==
LOC: PROCWHC3 09:32
PROVIDERS: ATTEND Internal Medicine Critical Care Medicine
DX: I26.99 Other pulmonary embolism without acute cor pulmonale (principal)
CPT/HCPCS: 84520; 96360

== ENCOUNTER → 2023-07-06 | Outpatient (CLI) | payer OTHER ==
[2023-07-06 11:33] LABS: African American GFR (CKD) 84 (>60 ml/min/1.73 sqM); Blood Urea Nitrogen 18 mg/dL (7-17); Non-African American GFR(CKD) 73 (>60 ml/min/1.73 sqM)
--- NOTE | 2023-07-06 14:16 | CT ---
EXAMINATION: CT ABDOMEN AND PELVIS WITH IV CONTRAST DATE OF EXAMINATION: 07/06/2023. COMPARISON: 12/29/2021.. INDICATION: Abdominal pain, diarrhea and weight loss. PROCEDURE: Axial CT of the abdomen and pelvis was performed with contrast and sagittal and coronal reformatted images were performed. CT dose lowering techniques were used, to include: automated expos ure control, adjustment for patient size, and/or use of iterative reconstruction. 100 mL of Isovue-37 0 was given intravenously. FINDINGS: LOWER CHEST : The visualized lung bases are clear. There are no pleural or pericardial effusions. ABDOMEN: Liver and Biliary system: Normal. Adrenal glands: Normal. Kidneys and ureters: There are scattered subcentimeter hypodensities within kidneys bilaterally that are too small to fully characterize. Kidneys otherwise appear unremarkable Spleen: Normal. Pancreas: Normal. Gallbladder: Surgically absent. Lymph nodes, Peritoneum and mesentery: There is no mesenteric or retroperitoneal lymphadenopathy. Gastrointestinal tract: There are no dilated loops of bowel or free intraperitoneal air. Distende d loops of bowel are otherwise seen without evidence of obstruction. Aorta/IVC: No aortic aneurysm. IVC normal. Abdominal wall: Normal. PELVIS: Fluid: There is no free fluid in the pelvis. Lymph Nodes: There is no pelvic or inguinal lymphadenopathy.. Urinary bladder: Normal. BONES: Surgical changes are seen in the proximal femurs bilaterally. The bones are diffusely deminer alized. Mild chronic compression deformity of the L4 vertebral body is noted.. ADDITIONAL SIGNIFICANT FINDINGS: None. IMPRESSION: No acute process within the abdomen or pelvis.
== END | disposition home or self-care (01) ==
LOC: RADCTMAIN 10:47
PROVIDERS: ATTEND Internal Medicine Hospice and Palliative Medicine
DX: R19.7 Diarrhea, unspecified (principal); R10.9 Unspecified abdominal pain; R63.4 Abnormal weight loss
CPT/HCPCS: 82565; 84520; 74177; 36415; Q9967

== ENCOUNTER 2023-09-28 09:15 | Day surgery (SDC) | payer OTHER ==
[~2023-09-28 09:15] MED LIST changes: +LIDOCAINE 1% (10MG/ML) FOR IV START INTRADERMA PRN; +MIDAZOLAM 2 MG/2 ML VIAL IV PRN; -SODIUM CHLORIDE 0.9% 1,000 ML IV NR; -SODIUM CHLORIDE 0.9% 500 ML 500 ML in EMPTY BAG 1 BAG IV PRN
[2023-09-28] MEDS: IV FLUID CONTINUATION 1,000 ML IV ONE (09:47)
[2023-09-28] MEDS: LACTATED RINGERS 1,000 ML IV SCH (10:03)
[2023-09-28 10:07] VITALS: RESP 16; TEMP 98.1
[2023-09-28] MEDS ORDERED: PROPOFOL 10 MG/ML 20 ML VIAL IV ONE (10:18)
[2023-09-28] MEDS ORDERED: LIDOCAINE 1% INJ 10MG/ML (20 ML MDV) ONE (10:18)
[2023-09-28 10:54] VITALS: BP 115/67; PULSE 59
--- NOTE | 2023-09-28 11:52 | P.PCN ---
Date of Procedure: 09/28/23 Procedure(s) Performed: BRIEF HISTORY: Patient is a 77-year-old, pleasant, white female scheduled for an upper endoscopy as a part of evaluation of dysphagia to solids. Last EGD with dilation was in December 2022. Lately has been having worsening dysphagia to solids and has scheduled for an upper endoscopy for dilation. PROCEDURE PERFORMED: Esophagogastroduodenoscopy with dilation. PREOPERATIVE DIAGNOSIS: Dysphagia to solids and history of esophageal stricture. IV sedation per anesthesia. PROCEDURE: After informed consent was obtained, the patient was brought into the endoscopy unit. IV sedation was administered by Anesthesia under continuous monitoring. Initially the Olympus GIF-140 video endoscope was inserted into the mouth. Esophagus intubated without any difficulty. It was gradually advanced into the stomach and duodenum and carefully examined. The bulb and the second part of the duodenum appeared normal. The scope at this time was withdrawn to the stomach, adequately insufflated with air, and upon careful examination, mucosa of the antrum had mild gastritis. Mucosa of the, body, cardia and the fundus appeared normal. The scope was then withdrawn into the esophagus. The GE junction was located at 39 cm from the incisors. There was a distal esophageal stricture identified and this was dilated using 10 to 12 mm TTS balloon for 30 seconds. The rest of the esophagus appeared normal. There were no erosions or ulcerations seen. In the proximal cervical esophagus at 15 cm from the incisors there was another esophageal stricture identified that was dilated. 10 to 12 mm TTS balloon as described above. And the patient tolerated the procedure well. IMPRESSION: 1. Proximal esophageal stricture at 15 cm from incisors s/p balloon dilation using 10 to 12 mm TTS balloon. 2. Distal esophageal stricture just proximal to the GE junction s/p balloon dilation using 10 to 12 mm TTS balloon as described. RECOMMENDATIONS: The findings of this examination were discussed with the patient as well as her family. She will continue with clear liquids today. Continue with Prilosec 20 mg daily and follow antireflux measures..
== END 2023-09-28 11:31 | disposition home or self-care (01) ==
LOC: ORWHC2ENDO 09:15
PROVIDERS: ATTEND Internal Medicine Gastroenterology
DX: K22.2 Esophageal obstruction (principal); I25.2 Old myocardial infarction; I11.0 Hypertensive heart disease with heart failure; I50.9 Heart failure, unspecified; I25.10 Atherosclerotic heart disease of native coronary artery without angina pectoris; J44.9 Chronic obstructive pulmonary disease, unspecified; I48.91 Unspecified atrial fibrillation; F31.9 Bipolar disorder, unspecified; Z79.01 Long term (current) use of anticoagulants; Z79.899 Other long term (current) drug therapy; Z88.8 Allergy status to other drugs, medicaments and biological substances
CPT/HCPCS: 43249; J2001; J2704; C1726

== ENCOUNTER → 2023-10-08 | Outpatient (CLI) | payer OTHER | END | disposition home or self-care (01) | LOC: RADBDWWP 10:50 | PROVIDERS: ATTEND Internal Medicine Hospice and Palliative Medicine | DX: Z53.9 Procedure and treatment not carried out, unspecified reason (principal) ==

== ENCOUNTER 2024-01-29 09:41 | Day surgery (SDC) | payer OTHER ==
[2024-01-29] MEDS: IV FLUID CONTINUATION 1,000 ML IV ONE (10:30)
[2024-01-29] MEDS: LACTATED RINGERS 1,000 ML IV SCH (10:30)
[2024-01-29 10:33] VITALS: TEMP 98.9
[2024-01-29] MEDS: MIDAZOLAM 2 MG/2 ML VIAL IV ONE (10:46)
[2024-01-29 10:48] LABS: Glucose,Whole Blood 97 mg/dL (70-110)
[2024-01-29] MEDS ORDERED: PROPOFOL 10 MG/ML 20 ML VIAL IV ONE (11:13)
[2024-01-29] MEDS ORDERED: LABETALOL 5 MG/ML VIAL MDV ONE (11:13)
--- NOTE | 2024-01-29 11:30 | P.PCN ---
Date of Procedure: 01/29/24 Procedure(s) Performed: BRIEF HISTORY: Patient is a 78-year-old, pleasant, white female skilled follow- up anoscopy for evaluation of progressive dysphagia to solids. He has proximal and distal esophageal stricture that was dilated in April of this year. She is not having dysphagia for the last 6 months.. PROCEDURE PERFORMED: Esophagogastroduodenoscopy with dilation. PREOPERATIVE DIAGNOSIS: Dysphagia to solids. IV sedation per anesthesia. PROCEDURE: After informed consent was obtained, the patient was brought into the endoscopy unit. IV sedation was administered by Anesthesia under continuous monitoring. Initially the Olympus GIF-140 video endoscope was inserted into the mouth. Esophagus intubated without any difficulty. It was gradually advanced into the proximal esophagus and there was a circumferential esophageal web identified. The scope could not be advanced through the stricture. At this time balloon dilation was performed using 10 to 12 mm TTS balloon and following this I was able to advance the scope into the distal esophagus. Right at the GE junction there was another esophageal stricture identified which was once again dilated with 10 to 12mm TTS balloon following which I was able to advance the scope into the stomach and duodenum and carefully examined. The bulb and the second part of the duodenum appeared normal. The scope at this time was withdrawn to the stomach, adequately insufflated with air, and upon careful examination, mucosa of the antrum, body, cardia and the fundus appeared normal. The scope was then withdrawn into the esophagus. Small hiatal hernia noted. The GE junction was located at 39 cm from the incisors. There was some oozing noted at the site of dilation the distal esophageal stricture. The rest of the esophagus appeared normal. There were no erosions or ulcerations seen and the patient tolerated the procedure well. IMPRESSION: 1. Proximal circumferential esophageal web status post balloon dilation using 10 to 12 mm TTS balloon. 2. Distal esophageal stricture status post balloon dilation using 10 to 12 mm balloon 3. Small hiatal hernia. RECOMMENDATIONS: The findings of this examination were discussed with the patient as well as her family. She was advised to be on a clear liquid diet. Continue with current medications. Follow-up in the office in 3 months..
[2024-01-29 11:48] VITALS: BP 130/85; PULSE 83; RESP 14
== END 2024-01-29 12:24 ==
LOC: ORWHC2ENDO 09:41
PROVIDERS: ATTEND Internal Medicine Gastroenterology
DX: R13.10 Dysphagia, unspecified
CPT/HCPCS: 43249

== ENCOUNTER 2024-02-13 21:22 | Emergency (ER) | payer OTHER ==
[2024-02-13 21:35] VITALS: RESP 18
--- NOTE | 2024-02-13 21:50 | ED ---
General Adult HPI - General Chief complaint: Fall Stated complaint: Fall Time Seen by Provider: 02/13/24 21:22 Source: patient, EMS, RN notes reviewed, old records reviewed Mode of arrival: EMS - History of Present Illness Initial comments: Patient is a 78-year-old female presents emergency department after a slip and fall at home. Patient states she is usually wheelchair-bound but can ambulate a little bit at home. Her legs flew out from underneath her while at home and she landed on her back on the linear volume floor in her kitchen. Denies loss of consciousness. States she does not think she hit her head. Is not on blood thinners. Is currently complaining of some mild neck pain, left-sided posterior and lateral rib pain, some mild mid back pain, as well as some chronic pain in bilateral thighs as well as left foreleg. Patient is on buprenorphine for pain and also takes marijuana edibles. It is not on blood thinners. Denies any fainting episodes or feeling weak. States it was a slip and fall. Presents for further evaluation. - Related Data Home Medications Medication Instructions Recorded Confirmed Metoprolol Tartrate [Lopressor] 50 mg PO QAM 10/05/20 01/25/24 Pantoprazole [Protonix] 40 mg PO BID 12/27/21 01/25/24 Amiodarone [Cordarone] 200 mg PO QAM 02/03/22 01/25/24 Ondansetron [Zofran] 4 mg PO Q8H PRN 09/20/22 01/25/24 Aspirin EC [Ecotrin Low Dose] 81 mg PO QAM 11/13/22 01/25/24 Levothyroxine Sodium [Synthroid] 112 mcg PO QAM 11/13/22 01/25/24 Butalb/Acetaminophen/Caffeine 1 cap PO BID PRN 01/10/23 01/25/24 [Fioricet 50-300-40 mg Capsule] dilTIAZem HCL [dilTIAZem HCL 24Hr 180 mg PO QAM 01/10/23 01/25/24 ER (CD)] Desloratadine [Clarinex] 5 mg PO HS 02/07/23 01/25/24 Lidocaine 5% Patch [Lidoderm 5% 1 patch TRANSDERM BID 04/01/23 01/25/24 Patch] Buprenorphine [Buprenorphine 20 2 patch TRANSDERM Q6D 09/27/23 01/25/24 MCG/HR] Diclofenac Sodium Gel [Voltaren 1% 100 gm TOPICAL QID PRN 09/27/23 01/25/24 Gel] Diphenox-Atrop 2.5-0.025 mg 1 tab PO QID PRN 09/27/23 01/25/24 [Lomotil] diphenhydrAMINE HCL [Benadryl] 25 mg PO HS 09/27/23 01/25/24 Acetaminophen [Tylenol Extra 500 mg PO Q6H PRN 01/25/24 01/25/24 Strength] Albuterol Inhaler [Ventolin Hfa 1 - 2 puff INHALATION Q6H PRN 01/25/24 01/25/24 Inhaler] Benzonatate [Tessalon Perles] 100 mg PO TID PRN 01/25/24 01/25/24 Citalopram Hydrobromide [CeleXA] 40 mg PO DAILY 01/25/24 01/25/24 Dicyclomine [Bentyl] 10 mg PO TID PRN 01/25/24 01/25/24 Folic Acid 1 mg PO DAILY 01/25/24 01/25/24 Furosemide [Lasix] 40 mg PO BID 01/25/24 01/25/24 L.acidoph,Paracasei, B.lactis 1 each PO DAILY 01/25/24 01/25/24 [Probiotic] Meloxicam [Mobic] 7.5 mg PO DAILY 01/25/24 01/25/24 Methylcellulose (with Sugar) 2 gm PO DIRECTED PRN 01/25/24 01/25/24 [Citrucel Powder] Potassium Chloride Oral Liquid 15 ml PO TID 01/25/24 01/25/24 Triamcinolone 0.5% Cream [Kenalog 1 applic TOPICAL DAILY 01/25/24 01/25/24 0.5% Cream] witch Zoila [Tucks Medicated Pads] 1 pad TOPICAL DIRECTED PRN 01/25/24 01/25/24 Allergies Allergy/AdvReac Type Severity Reaction Status Date / Time adhesive Allergy RASH FROM Verified 01/29/24 10:15 EKG STICKERS apixaban [From Eliquis] Allergy Rash/Hives Verified 01/29/24 10:15 celecoxib [From Celebrex] Allergy Rash/Hives Verified 01/29/24 10:15 sertraline HCl [From Zoloft] Allergy Rash/Hives Verified 01/29/24 10:15 sulfamethoxazole Allergy Anaphylaxis Verified 01/29/24 10:15 [From Bactrim] trimethoprim [From Bactrim] Allergy Anaphylaxis Verified 01/29/24 10:15 cholestyramine AdvReac DIZZY/CONFU Verified 01/29/24 10:15 SED hydroxyzine [From Vistaril] AdvReac Nausea & Verified 01/29/24 10:15 Vomiting & Diarrhea Review of Systems ROS Statement: Those systems with pertinent positive or pertinent negative responses have been documented in the HPI. Review of Systems: CONST: Denies fever EYES: Denies blurry vision ENT: Denies nasal congestion C/V: Denies Chest pain RESP: Denies shortness of breath GI: Denies abdominal pain : Denies dysuria SKIN: Denies rash. MSK: Endorses joint pain NEURO: Denies headache ROS Other: All systems not noted in ROS Statement are negative. Past Medical History Past Medical History: Atrial Fibrillation, Blood Disorder, Coronary Artery Disease (CAD), Chest Pain / Angina, Heart Failure, COPD, CVA/TIA, Diabetes Mellitus, Fibromyalgia, GERD/Reflux, GI Bleed, Hypertension, Myocardial Infarction ([place]), Musculoskeletal Disorder, Osteoarthritis (OA), Renal Disease, Seizure Disorder, Thyroid Disorder Additional Past Medical History / Comment(s): Pacemaker for Syncope/Tachybrady Syndrome. Hx RHEUMATIC FEVER. Heart murmur, chronic back and bilateral shoulder pain. SEVERE OSTEOPOROSIS, Vertigo, DJD, GI ulcers, esophagitis/esophageal stricture, PROBLEMS WITH SWALLOWING, FALLS - loses balance "Cannot lie down for long without having back pain - Broke back 2012,2017" Left hip ORIF of trochanteric comminuted femur fracture in November 2021, stroke 2022, Rt. shoulder fracture 08/14, past hx. epilepsy-not currently taking any meds, kidney disease- Stage 2, type 2 diabetes-not taking anything for Last Myocardial Infarction Date:: 2002 History of Any Multi-Drug Resistant Organisms: None Reported Past Surgical History: Appendectomy, Cardiac Ablation, Cholecystectomy, Ear Surgery, Heart Catheterization, Hernia Repair, Hysterectomy, Orthopedic Surgery, Pacemaker, Tonsillectomy Additional Past Surgical History / Comment(s): ORIF LEFT LOWER ARM, numerous DILATATION OF ESOPHAGUS, biopsies were negative, colonoscopy, Pacemaker (ADAPTA) placed 07/07 at [facility], bilateral stapedectomies(stainless steel in both ears), Hiatal Hernia repair, inguinal & femoral hernia repairs, "cement placed in back, due to broken back/pelvis". Left Femur Surgery 12/09/21. Watchman device 06/16 Past Anesthesia/Blood Transfusion Reactions: Family History of Problems w/ Anesthesia, Motion Sickness, Postoperative Nausea & Vomiting (PONV) Additional Past Anesthesia/Blood Transfusion Reaction / Comment(s): No problems with prior blood transfusion. BROTHER HAS PONV. Type of Cardiac Device: Permanent Pacemaker Device Placement Date:: 06/2016 Past Psychological History: Bipolar Smoking Status: Never smoker Past Alcohol Use History: None Reported Past Drug Use History: Marijuana - Past Family History Brother(s) Family Medical History: Cancer Additional Family Medical History / Comment(s): Throat cancer. Father Family Medical History: Pneumonia Additional Family Medical History / Comment(s): EMPHYSEMA. Mother Family Medical History: COPD, Rheumatoid Arthritis (RA) Additional Family Medical History / Comment(s): EMPHYSEMA. General Exam - General Exam Comments Initial Comments: General: Appears in no acute distress. HEAD: Normal with no signs of head trauma. Negative Figueroa sign. Negative raccoon eyes. EYES: PERRLA, EOMI, conjunctiva normal, no discharge. Pupils are 2 mm and equal bilaterally. ENT: Hearing grossly intact, normal oropharynx. RESPIRATORY: Clear breath sounds bilaterally. No wheezes, rales, or rhonchi. C/V: Regular rate and rhythm. S1 and S2 auscultated, no edema, peripheral pulses 2+ and intact throughout ABD: Abd is soft, nontender, nondistended EXT: Normal range of motion, no obvious deformity. Tenderness to palpation of bilateral anterior thighs, left anterior tibia, left posterior ribs, mild midline thoracic spine. No obvious step-offs or deformity of the spine appreciated. Patient does have kyphosis. No significant cervical spine tenderness to palpation. SKIN: No rashes or lesions observed on exposed skin. NEURO: Alert and oriented x 4. GCS of 15. No focal deficits. Course Vital Signs 02/13/24 02/14/24 21:24 00:50 Pulse Rate 73 65 Respiratory 18 18 Rate Blood Pressure 119/74 122/74 O2 Sat by Pulse 97 98 Oximetry Medical Decision Making - Medical Decision Making Was pt. sent in by a medical professional or institution (TANNER Menard, DENTAL HYGIENE INSTRUCTOR, urgent care, hospital, or snf...) When possible be specific @ -No Did you speak to anyone other than the patient for history (EMS, parent, family, police, friend...)? What history was obtained from this source @ -Spoke with patient's daughter who assisted with patient's past medical history. Did you review nursing and triage notes (agree or disagree)? Why? @ -I reviewed and agree with nursing and triage notes Were old charts reviewed (outside hosp., previous admission, EMS record, old EKG, old radiological studies, urgent care reports/EKG's, snf records)? Report findings @ -No old charts were reviewed Differential Diagnosis (chest pain, altered mental status, abdominal pain women, abdominal pain men, vaginal bleeding, weakness, fever, dyspnea, syncope, headache, dizziness, GI bleed, back pain, seizure, CVA, palpatations, mental health, musculoskeletal)? @ -Differential Musculoskeletal Muscular strain, contusion, ligament sprain, fracture, arthritis, septic arthritis, bursitis, cellulitis, muscle spasm, nerve compression, DVT, arterial occlusion, herpes zoster, electrolyte abnormality, tumor.... This is not meant to be in all inclusive list EKG interpreted by me (3pts min.). @ -As above X-rays interpreted by me (1pt min.). @ -Patient's tib-fib, femur x-ray is negative for any obvious acute traumatic injury. CT interpreted by me (1pt min.). @ -CT brain, C-spine, T and L-spine, chest and abdomen negative for any obvious traumatic injury at this time. Chronic deformities present. U/S interpreted by me (1pt. min.). @ -None done What testing was considered but not performed or refused? (CT, X-rays, U/S, labs)? Why? @ -None What meds were considered but not given or refused? Why? @ -None Did you discuss the management of the patient with other professionals (professionals i.e. TANNER Menard, DENTAL HYGIENE INSTRUCTOR, lab, RT, psych nurse, drug abuse social worker, maintenance of way superintendent, teacher, geological technical officer, assistant case manager)? Give summary @ -No Was smoking cessation discussed for >3mins.? @ -No Was critical care preformed (if so, how long)? @ -No Were there social determinants of health that impacted care today? How? (Homelessness, low income, unemployed, alcoholism, drug addiction, transportation, low edu. Level, literacy, decrease access to med. care, mcc, rehab)? @ -No Was there de-escalation of care discussed even if they declined (Discuss DNR or withdrawal of care, Hospice)? DNR status @ -No What co-morbidities impacted this encounter? (DM, HTN, Smoking, COPD, CAD, Cancer, CVA, ARF, Chemo, Hep., AIDS, mental health diagnosis, sleep apnea, morbid obesity)? @ -None Was patient admitted / discharged? Hospital course, mention meds given and route, prescriptions, significant lab abnormalities, going to OR and other pertinent info. @ -Based on the patient's presentation and physical exam, presents with a mechanical fall at home. He has somewhat diffuse pain but patient does have chronic pain and is on buprenorphine at home. Are within acceptable limits. We will obtain imaging. I do not believe laboratory studies are required at this time. She does not meet trauma activation criteria. She is resting comfortably at this time other than pain in her back and her ribs primarily as well as chronic pain in her legs which she thinks may have been exacerbated. Patient will be given a lidocaine patch as well as [place] tablet. We will obtain a screening EKG. She was in agreement this plan. EKG shows no signs of acute ischemia.Imaging unremarkable. I updated the patient as well as daughter. Patient will be discharged home at this time. Strict return precautions discussed. She will be given incentive spirometer for rib contusion. She was in agreement this plan. I instructed the patient to follow up with their PCP in the next 1-3 days. I explained that the patient should return to the emergency department if they experience any worsening symptoms. Strict return precautions were discussed with the patient. The patient expressed understanding of these instructions. I answered all questions that the patient had. The patient was discharged home in good condition with their prescriptions and follow up information. Undiagnosed new problem with uncertain prognosis? @ -No Drug Therapy requiring intensive monitoring for toxicity (Heparin, Nitro, Insulin, Cardizem)? @ -No Were any procedures done? @ -No Diagnosis/symptom? @ -Fall, rib contusion chronic pain Acute, or Chronic, or Acute on Chronic? @ -Acute Uncomplicated (without systemic symptoms) or Complicated (systemic symptoms)? @ -Uncomplicated Side effects of treatment? @ -None Exacerbation, Progression, or Severe Exacerbation] @ -No Poses a threat to life or bodily function? @ -Unlikely - EKG Data -: EKG Interpreted by Me EKG Comments: 12-lead Electrocardiogram Interpretation Note EKG was reviewed and interpreted by myself. 12-lead ECG performed at 24-42 is interpreted by me as revealing normal sinus rhythm at a rate of 67 beats per minute. [place] is normal. [place] interval is 179 ms, QRS duration is 94 ms, QTc is 366 ms.. There were no ST or T wave abnormalities to suggest myocardial ischemia or injury. R wave progression across the precordium was satisfactory. By my interpretation this EKG is non-diagnostic for acute ischemia. Disposition Clinical Impression: Fall, Chronic pain, Rib contusion Disposition: HOME SELF-CARE Condition: Good Instructions (If sedation given, give patient instructions): How to Use an Incentive Spirometer (ED), Fall Prevention for Older Adults (ED), Rib Contusion (ED) Is patient prescribed a controlled substance at d/c from ED?: No Referrals: Grant Mario MD [Primary Care Provider] - 1-2 days Time of Disposition: 00:30
[2024-02-13] MEDS: HYDROcodone/APAP 5-325MG 1 EACH TAB PO STA ×2 (22:21→23:22)
[2024-02-13] MEDS: LIDOCAINE 4% PATCH TOPICAL STA (22:23)
--- NOTE | 2024-02-13 23:44 | CT ---
EXAM: CT Head Without Intravenous Contrast CLINICAL HISTORY: ITS.REASON CT Reason: fall TECHNIQUE: Axial computed tomography images of the head/brain without intravenous contrast. CTDI is 45.2 mGy and DLP is 936.1 mGy-cm. This CT exam was performed using one or more of the following dose reduction techniques: automated exposure control, adjustment of the mA and/or kV according to patient size, and/or use of iterative reconstruction technique. COMPARISON: No relevant prior studies available. FINDINGS: Brain: Age-related cerebral volume loss. Periventricular and subcortical white matter hypoattenuation, consistent with chronic microangiopathy. No acute intracranial hemorrhage. No midline shift or mass effect. Ventricles: Unremarkable. No ventriculomegaly. Bones/joints: Unremarkable. No acute fracture. Soft tissues: Unremarkable. Sinuses: Unremarkable as visualized. No acute sinusitis. Mastoid air cells: Unremarkable as visualized. No mastoid effusion. IMPRESSION: No acute intracranial hemorrhage. No midline shift or mass effect. EXAM: CT Cervical Spine Without Intravenous Contrast CLINICAL HISTORY: ITS.REASON CT Reason: fall TECHNIQUE: Axial computed tomography images of the cervical spine without intravenous contrast. CTDI is 7.3 mGy and DLP is 184.6 mGy-cm. This CT exam was performed using one or more of the following dose reduction techniques: automated exposure control, adjustment of the mA and/or kV according to patient size, and/or use of iterative reconstruction technique. COMPARISON: No relevant prior studies available. FINDINGS: The vertebral body heights are maintained. The craniocervical junction is intact. The atlanto-dens interval is maintained. The dens is intact. Grade 1 anterolisthesis of C4 on C5 measures 3 mm. Multilevel cervical spondylosis and degenerative disc disease. Straightening of the cervical lordosis. The unenhanced neck soft tissues are grossly unremarkable. The visualized lung apices are grossly clear. IMPRESSION: 1. No acute fracture of the cervical spine. 2. Grade 1 anterolisthesis of C4 on C5 measures 3 mm.
--- NOTE | 2024-02-13 23:46 | CT ---
EXAM: CT Thoracic Spine Without Intravenous Contrast CLINICAL HISTORY: ITS.REASON CT Reason: fall, pain TECHNIQUE: Axial computed tomography images of the thoracic spine without intravenous contrast. CTDI is 5.1 mGy and DLP is 314.3 mGy-cm. This CT exam was performed using one or more of the following dose reduction techniques: automated exposure control, adjustment of the mA and/or kV according to patient size, and/or use of iterative reconstruction technique. COMPARISON: No relevant prior studies available. FINDINGS: The thoracic kyphosis is preserved. There is no spondylolisthesis. The posterior elements are maintained, without evidence of acute fracture. The pedicles are intact. Moderate reverse S-shaped scoliosis. Cement kyphoplasty at T8. Chronic compression deformity of T7, T6, and T5. Multilevel thoracic spondylosis and degenerative disc disease. IMPRESSION: 1. No acute fracture or subluxation of the thoracic spine. 2. Cement kyphoplasty at T8. 3. Chronic compression deformity of T7, T6, and T5. EXAM: CT Lumbar Spine Without Intravenous Contrast CLINICAL HISTORY: ITS.REASON CT Reason: fall, pain TECHNIQUE: Axial computed tomography images of the lumbar spine without intravenous contrast. CTDI is 5.1 mGy and DLP is 314.3 mGy-cm. This CT exam was performed using one or more of the following dose reduction techniques: automated exposure control, adjustment of the mA and/or kV according to patient size, and/or use of iterative reconstruction technique. COMPARISON: No relevant prior studies available. FINDINGS: Chronic compression deformity involving the superior endplate of L4. The lumbar lordosis is preserved. There is no spondylolisthesis. The posterior elements are maintained, without evidence of acute fracture. The pedicles are intact. Multilevel lumbar spondylosis and degenerative disc disease. Moderate fecal retention. IMPRESSION: No acute fracture or subluxation of the lumbar spine.
--- NOTE | 2024-02-14 | CT ---
EXAM: CT Chest Without Intravenous Contrast CLINICAL HISTORY: ITS.REASON CT Reason: fall, pain left ribs/mid back TECHNIQUE: Axial computed tomography images of the chest without intravenous contrast. CTDI is 5.1 mGy and DLP is 314.3 mGy-cm. This CT exam was performed using one or more of the following dose reduction techniques: automated exposure control, adjustment of the mA and/or kV according to patient size, and/or use of iterative reconstruction technique. COMPARISON: No relevant prior studies available. FINDINGS: Lungs: Unremarkable. No mass. No consolidation. Pleural space: Unremarkable. No focal consolidation, pleural effusion, or pneumothorax. Heart: Unremarkable. No significant pericardial effusion. No significant coronary artery calcifications. No cardiomegaly. Bones/joints: Degenerative changes of the spine. Old fracture deformity of the RIGHT proximal humerus. No dislocation. Soft tissues: Unremarkable. Vasculature: Atherosclerotic changes of the aorta. No thoracic aortic aneurysm. Lymph nodes: Unremarkable. No enlarged lymph nodes. Tubes, lines and devices: Pacemaker leads. Atrial appendage device. IMPRESSION: No focal consolidation, pleural effusion, or pneumothorax. No left-sided rib fracture. EXAM: CT Abdomen and Pelvis Without Intravenous Contrast CLINICAL HISTORY: ITS.REASON CT Reason: fall, pain left ribs/mid back TECHNIQUE: Axial computed tomography images of the abdomen and pelvis without intravenous contrast. CTDI is 5.1 mGy and DLP is 314.3 mGy-cm. This CT exam was performed using one or more of the following dose reduction techniques: automated exposure control, adjustment of the mA and/or kV according to patient size, and/or use of iterative reconstruction technique. COMPARISON: No relevant prior studies available. FINDINGS: Lung bases: Unremarkable. No mass. No consolidation. ABDOMEN: Liver: Unremarkable. Gallbladder and bile ducts: Cholecystectomy. Pancreas: Unremarkable. No ductal dilation. Spleen: Unremarkable. No splenomegaly. Adrenals: Unremarkable. No mass. Kidneys and ureters: Unremarkable. No obstructing stones. No hydronephrosis. Stomach and bowel: Moderate fecal retention, correlate for constipation. No obstruction. No mucosal thickening. PELVIS: Appendix: No findings to suggest acute appendicitis. Bladder: Unremarkable. No stones. Reproductive: Unremarkable as visualized. ABDOMEN and PELVIS: Intraperitoneal space: Unremarkable. No free air. No significant fluid collection. Bones/joints: Bilateral hip ORIF. Degenerative changes of the spine. No acute fracture. No dislocation. Soft tissues: Unremarkable. Vasculature: Atherosclerotic changes of the aorta. No abdominal aortic aneurysm. Lymph nodes: Unremarkable. No enlarged lymph nodes. IMPRESSION: Moderate fecal retention, correlate for constipation.
--- NOTE | 2024-02-14 00:15 | XR ---
EXAM: XR Bilateral Femurs, 2 Views CLINICAL HISTORY: ITS.REASON XR Reason: fall, pain TECHNIQUE: Frontal and lateral views of the bilateral femurs. COMPARISON: No relevant prior studies available. FINDINGS: Bones/joints: Bilateral hip ORIF. No periprosthetic fracture. Diffuse osseous demineralization. Bone infarct in the RIGHT distal femur. Intramedullary nail on the LEFT femur. No dislocation. Soft tissues: Unremarkable. IMPRESSION: Bilateral hip ORIF. No periprosthetic fracture.
--- NOTE | 2024-02-14 00:18 | XR ---
EXAM: XR Left Tibia and Fibula, 2 Views CLINICAL HISTORY: ITS.REASON XR Reason: fall, pain TECHNIQUE: Frontal and lateral views of the left tibia and fibula. COMPARISON: No relevant prior studies available. FINDINGS: Bones/joints: Diffuse osseous demineralization. No acute fracture or subluxation. Soft tissues: Unremarkable. No radiopaque foreign body. IMPRESSION: No acute fracture or subluxation.
[2024-02-14 00:51] VITALS: BP 122/74; PULSE 65
== END 2024-02-14 00:54 | disposition home or self-care (01) ==
LOC: EC 21:22
CPT/HCPCS: 70450; 71250; 72125; 72128; 72131; 74176; 93005; 99284

== ENCOUNTER 2024-04-01 12:53 | Observation (INO) | payer OTHER ==
[2024-04-01] MEDS: MORPHINE SULFATE 4 MG/ML SYRINGE IVP STA (13:10)
[2024-04-01 13:25] LABS: Basophils % (A) 0 %; Eosinophils # (A) 0.1 k/uL (0-0.7); Eosinophils % (A) 1 %; HCT 48.7 % (34.0-46.0); HGB 15.9 gm/dL (11.4-16.0); Lymphocytes # (A) 0.8 k/uL (1.0-4.8); Lymphocytes % (A) 9 %; MCH 33.1 pg (25.0-35.0); MCHC 32.6 g/dL (31.0-37.0); MCV 101.5 fL (80.0-100.0); Macrocytosis Slight; Mean Platelet Volume 7.9; Monocytes # (A) 0.2 k/uL (0-1.0); Monocytes % (A) 3 %; Neutrophils # (A) 7.4 k/uL (1.3-7.7); Neutrophils % (A) 85 %; Platelet Count 313 k/uL (150-450); RDW 13.1 % (11.5-15.5); WBC 8.6 k/uL (3.8-10.6)
[2024-04-01 13:39] LABS: ALT 12 U/L (4-34); African American GFR (CKD) >90 (>60 ml/min/1.73 sqM); Albumin 4.6 g/dL (3.5-5.0); Anion Gap 9 mmol/L; Blood Urea Nitrogen 20 mg/dL (7-17); Calcium 9.4 mg/dL (8.4-10.2); Carbon Dioxide 28 mmol/L (22-30); Chloride 102 mmol/L (98-107); Glucose 112 mg/dL (74-99); Non-African American GFR(CKD) 83 (>60 ml/min/1.73 sqM); Sodium 139 mmol/L (137-145); Total Bilirubin 0.4 mg/dL (0.2-1.3); Total Protein 7.8 g/dL (6.3-8.2)
--- NOTE | 2024-04-01 13:43 | XR ---
EXAMINATION TYPE: XR chest 2V DATE OF EXAM: 04/01/2024 1:22 PM COMPARISON: Chest radiographs from lower 05/15/2023 CLINICAL INDICATION: Female, 78 years old with history of Chest Pain; TECHNIQUE: XR chest 2V Frontal and lateral views of the chest. FINDINGS: Lungs/Pleura: There is no evidence of pleural effusion, focal consolidation, or pneumothorax. Pulmonary vascularity: Unremarkable. Heart/mediastinum: Cardiomediastinal silhouette is unremarkable. Two lead cardiac conduction device o verlying the left hemithorax with lead tips projecting over the right ventricle and right atrium. Musculoskeletal: No acute osseous pathology. Vertebroplasty changes to the spine with increased kypho sis. IMPRESSION: 1. No acute cardiopulmonary disease process. 2. COPD changes. [facility], , 04/01/2024 1:41 PM
[2024-04-01 13:47] LABS: Potassium 3.4 mmol/L (3.5-5.1)
[2024-04-01 13:48] LABS: AST 22 U/L (14-36); Alkaline Phosphatase 137 U/L (38-126); Magnesium 1.7 mg/dL (1.6-2.3)
[2024-04-01 14:40] LABS: INR 0.9 (<1.2); Prothrombin Time 10.3 sec (10.0-12.5)
[2024-04-01] MEDS ORDERED: ACETAMINOPHEN TAB 325 MG TAB PO PRN (14:56)
[2024-04-01] MEDS ORDERED: NALOXONE 0.4 MG/ML 1 ML VIAL IVP PRN (14:56)
[2024-04-01] MEDS ORDERED: MELATONIN 3 MG TABLET PO PRN (14:56)
[2024-04-01] MEDS: HYDROmorphone 1 MG/ML 1 ML SYRINGE IVP STA (14:56)
--- NOTE | 2024-04-01 15:00 | ED ---
Chest Pain HPI - General Chief Complaint: Chest Pain Stated Complaint: Chest pain Time Seen by Provider: 04/01/24 13:00 Source: patient Mode of arrival: EMS Limitations: no limitations - History of Present Illness Initial Comments: 78-year-old female with past medical history of A-fib with watchman, pacemaker, coronary artery disease, congestive heart failure who presents emergency department with chest pain. Reports to left-sided chest wall pain. Pain started this morning. She does use buprenorphine patches and is currently wearing 3 of them however states that her pain is still 10 out of 10. The pain is located over the chest wall with radiation around to the left flank. The area is tender to palpate. Denies any falls. Patient is found to be in A-fib with RVR. Does admit to a history of A-fib. States that she took all of her home medications at 7 AM. Patient has a Watchman device and therefore is not anticoagulated. EMS did give her an aspirin. No additional symptoms of abdominal pain, fevers, cough. No other alleviating, precipitating or modifying factors - Related Data Home Medications Medication Instructions Recorded Confirmed Metoprolol Tartrate [Lopressor] 50 mg PO DAILY 10/05/20 04/01/24 Pantoprazole [Protonix] 40 mg PO BID 12/27/21 04/01/24 Ondansetron [Zofran] 4 mg PO Q8H PRN 09/20/22 04/01/24 Aspirin EC [Ecotrin Low Dose] 81 mg PO DAILY 11/13/22 04/01/24 Butalb/Acetaminophen/Caffeine 1 cap PO BID PRN 01/10/23 04/01/24 [Fioricet 50-300-40 mg Capsule] Lidocaine 5% Patch [Lidoderm 5% 1 patch TRANSDERM BID 04/01/23 04/01/24 Patch] Buprenorphine [Buprenorphine 20 3 patch TRANSDERM WE 09/27/23 04/01/24 MCG/HR] Diclofenac Sodium Gel [Voltaren 1% 1 applic TOPICAL QID PRN 09/27/23 04/01/24 Gel] Diphenox-Atrop 2.5-0.025 mg 1 tab PO QID PRN 09/27/23 04/01/24 [Lomotil] diphenhydrAMINE HCL [Benadryl] 25 mg PO HS 09/27/23 04/01/24 Acetaminophen [Tylenol Extra 500 mg PO Q6H PRN 01/25/24 04/01/24 Strength] Albuterol Inhaler [Ventolin Hfa 2 puff INHALATION RT-Q6H PRN 01/25/24 04/01/24 Inhaler] Benzonatate [Tessalon Perles] 100 mg PO TID PRN 01/25/24 04/01/24 Citalopram Hydrobromide [CeleXA] 40 mg PO DAILY 01/25/24 04/01/24 Dicyclomine [Bentyl] 10 mg PO TID PRN 01/25/24 04/01/24 Folic Acid 1 mg PO DAILY 01/25/24 04/01/24 Furosemide [Lasix] 40 mg PO BID@0700,1500 01/25/24 04/01/24 L.acidoph,Paracasei, B.lactis 1 cap PO DAILY 01/25/24 04/01/24 [Probiotic] Meloxicam [Mobic] 7.5 mg PO DAILY 01/25/24 04/01/24 Methylcellulose (with Sugar) 3 tsp PO BID PRN 01/25/24 04/01/24 [Citrucel Powder] Potassium Chloride Oral Liquid 40 meq PO TID 01/25/24 04/01/24 Triamcinolone 0.5% Cream [Kenalog 1 applic TOPICAL DAILY 01/25/24 04/01/24 0.5% Cream] witch Zoila [Tucks Medicated Pads] 1 pad TOPICAL DIRECTED PRN 01/25/24 04/01/24 Desloratadine [Clarinex] 5 mg PO DAILY 04/01/24 04/01/24 Levothyroxine Sodium [Synthroid] 112 mcg PO DAILY 04/01/24 04/01/24 Orphenadrine Citrate [Orphenadrine 100 mg PO BID 04/01/24 04/01/24 Citrate ER] Previous Rx's Medication Instructions Recorded Amiodarone [Cordarone] 200 mg PO Q48H 30 Days #15 tab 04/02/24 Diltiazem Oral [Cardizem*] 30 mg PO TID 30 Days #90 tab 04/02/24 Allergies Allergy/AdvReac Type Severity Reaction Status Date / Time adhesive Allergy RASH FROM Verified 04/01/24 15:26 EKG STICKERS apixaban [From Eliquis] Allergy Rash/Hives Verified 04/01/24 15:26 celecoxib [From Celebrex] Allergy Rash/Hives Verified 04/01/24 15:26 sertraline HCl [From Zoloft] Allergy Rash/Hives Verified 04/01/24 15:26 sulfamethoxazole Allergy Anaphylaxis Verified 04/01/24 15:26 [From Bactrim] trimethoprim [From Bactrim] Allergy Anaphylaxis Verified 04/01/24 15:26 cholestyramine AdvReac DIZZY/CONFU Verified 04/01/24 15:26 SED hydroxyzine [From Vistaril] AdvReac Nausea & Verified 04/01/24 15:26 Vomiting & Diarrhea Review of Systems ROS Statement: Those systems with pertinent positive or pertinent negative responses have been documented in the HPI. ROS Other: All systems not noted in ROS Statement are negative. Past Medical History Past Medical History: Atrial Fibrillation, Blood Disorder, Coronary Artery Disease (CAD), Chest Pain / Angina, Heart Failure, COPD, CVA/TIA, Diabetes Elida itus, Fibromyalgia, GERD/Reflux, GI Bleed, Hypertension, Myocardial Infarction (TN), Musculoskeletal Disorder, Osteoarthritis (OA), Renal Disease, Seizure Disorder, Thyroid Disorder Additional Past Medical History / Comment(s): Pacemaker for Syncope/Tachybrady Syndrome. Hx RHEUMATIC FEVER. Heart murmur, chronic back and bilateral shoulder pain. SEVERE OSTEOPOROSIS, Vertigo, DJD, GI ulcers, esophagitis/esophageal stricture, PROBLEMS WITH SWALLOWING, FALLS - loses balance "Cannot lie down for long without having back pain - Broke back " Left hip ORIF of trochant bk comminuted femur fracture in November 2021, stroke 2022, Rt. shoulder fracture 08/14, past hx. epilepsy-not currently taking any meds, kidney disease- Stage 2, type 2 diabetes-not taking anything for Last Myocardial Infarction Date:: 2002 History of Any Multi-Drug Resistant Organisms: None Reported Past Surgical History: Appendectomy, Cardiac Ablation, Cholecystectomy, Ear Surgery, Heart Catheterization, Hernia Repair, Hysterectomy, Orthopedic Surgery, Pacemaker, Tonsillectomy Additional Past Surgical History / Comment(s): ORIF LEFT LOWER ARM, numerous DILATATION OF ESOPHAGUS, biopsies were negative, colonoscopy, Pacemaker (ADAPTA) placed 07/07 at [facility], bilateral stapedectomies(stainless steel in both ears), Hiatal Hernia repair, inguinal & femoral hernia repairs, "cement placed in back, due to broken back/pelvis". Left Femur Surgery 12/09/21. Watchman device 06/16 Past Anesthesia/Blood Transfusion Reactions: Family History of Problems w/ Anesthesia, Motion Sickness, Postoperative Nausea & Vomiting (PONV) Additional Past Anesthesia/Blood Transfusion Reaction / Comment(s): No problems with prior blood transfusion. BROTHER HAS PONV. Type of Cardiac Device: Permanent Pacemaker Device Placement Date:: 06/2016 Past Psychological History: Bipolar Smoking Status: Never smoker Past Alcohol Use History: None Reported Past Drug Use History: Marijuana - Past Family History Brother(s) Family Medical History: Cancer Additional Family Medical History / Comment(s): Throat cancer. Father Family Medical History: Pneumonia Additional Family Medical History / Comment(s): EMPHYSEMA. Mother Family Medical History: COPD, Rheumatoid Arthritis (RA) Additional Family Medical History / Comment(s): EMPHYSEMA. General Exam Limitations: no limitations General appearance: alert, in no apparent distress Head exam: Present: atraumatic, normocephalic, normal inspection Eye exam: Present: normal appearance, PERRL, EOMI. Absent: scleral icterus, conjunctival injection, periorbital swelling ENT exam: Present: normal exam, mucous membranes moist Neck exam: Present: normal inspection. Absent: tenderness, meningismus, lymphadenopathy Respiratory exam: Present: normal lung sounds bilaterally. Absent: respiratory distress, wheezes, rales, rhonchi, stridor Cardiovascular Exam: Present: tachycardia, irregular rhythm, normal heart sounds. Absent: systolic murmur, diastolic murmur, rubs, gallop, clicks GI/Abdominal exam: Present: soft, normal bowel sounds. Absent: distended, tenderness, guarding, rebound, rigid Extremities exam: Present: normal inspection, full ROM, normal capillary refill. Absent: tenderness, pedal edema, joint swelling, calf tenderness Back exam: Present: normal inspection Neurological exam: Present: alert, oriented X3, CN II-XII intact Psychiatric exam: Present: normal affect, normal mood Skin exam: Present: warm, dry, intact, normal color. Absent: rash Course Vital Signs 04/01/24 04/01/24 04/01/24 12:55 13:27 13:28 Temperature 99.3 F Pulse Rate 121 H 151 H 125 H Respiratory 22 22 Rate Blood Pressure 122/89 O2 Sat by Pulse 96 98 Oximetry 04/01/24 04/01/24 04/01/24 14:00 15:00 16:00 Temperature Pulse Rate 126 H 112 H 75 Respiratory 17 10 L 15 Rate Blood Pressure 122/89 122/89 O2 Sat by Pulse 96 94 L 93 L Oximetry 04/01/24 04/01/24 04/01/24 17:00 18:00 18:01 Temperature 98.2 F Pulse Rate 88 86 Respiratory 13 12 16 Rate Blood Pressure 118/83 118/83 O2 Sat by Pulse 96 96 95 Oximetry 04/01/24 04/01/24 04/01/24 21:00 23:07 23:20 Temperature 97.6 F Pulse Rate 77 82 Respiratory 16 18 Rate Blood Pressure 118/83 107/68 101/66 O2 Sat by Pulse 98 96 Oximetry Chest Pain MDM - MDM Was pt. sent in by a medical professional or institution (, PA, SEAT BUILDER, urgent care, hospital, or [facility]...) When possible be specific @ -No Did you speak to anyone other than the patient for history (EMS, parent, family, police, friend...)? What history was obtained from this source @ -Spoke with EMS for history Did you review nursing and triage notes (agree or disagree)? Why? @ -I reviewed and agree with nursing and triage notes Were old charts reviewed (outside hosp., previous admission, EMS record, old EKG, old radiological studies, urgent care reports/EKG's, [facility] records)? Report findings @ -No old charts were reviewed Differential Diagnosis (chest pain, altered mental status, abdominal pain women, abdominal pain men, vaginal bleeding, weakness, fever, dyspnea, syncope, headache, dizziness, GI bleed, back pain, seizure, CVA, palpatations, mental health, musculoskeletal)? @ -Differential Chest Pain: Stable Angina, Unstable Angina, STEMI, NSTEMI Aortic Dissection, Pneumothorax, Musculoskeletal, Esophageal Spasm GERD, Cholecystitis, Pancreatitis, Zoster, this is not meant to be an all-inclusive list. EKG interpreted by me (3pts min.). @ -Yes and demonstrates A-fib with a rate of 134. QRS 88. QTc of 381. No acute ST segment elevations. Biphasic T wave V2 X-rays interpreted by me (1pt min.). @ -Yes which demonstrates no acute process CT interpreted by me (1pt min.). @ -Yes which demonstrates no acute process U/S interpreted by me (1pt. min.). @ -None done What testing was considered but not performed or refused? (CT, X-rays, U/S, labs)? Why? @ -None What meds were considered but not given or refused? Why? @ -None Did you discuss the management of the patient with other professionals (professionals i.e. , PA, SEAT BUILDER, lab, RT, psych nurse, director social service, plasterer helper, teacher, landcare officer, caser)? Give summary @ -Spoke with Osman from [place] [facility] who will admit the patient Was smoking cessation discussed for >3mins.? @ -No Was critical care preformed (if so, how long)? @ -No Were there social determinants of health that impacted care today? How? (Homelessness, low income, unemployed, alcoholism, drug addiction, transportation, low edu. Level, literacy, decrease access to med. care, correction, rehab)? @ -No Was there de-escalation of care discussed even if they declined (Discuss DNR or withdrawal of care, Hospice)? DNR status @ -No What co-morbidities impacted this encounter? (DM, HTN, Smoking, COPD, CAD, Cancer, CVA, ARF, Chemo, Hep., AIDS, mental health diagnosis, sleep apnea, morbid obesity)? @ -None Was patient admitted / discharged? Hospital course, mention meds given and route, prescriptions, significant lab abnormalities, going to OR and other pertinent info. @ -Upon arrival patient seen and evaluated in trauma 4. Thorough history and physical exam was performed. Patient placed on continuous pulse ox and cardiac monitoring. Twelve-lead EKG was obtained. Laboratory studies were conducted. Chest x-ray was performed followed by CT of the chest. Results are discussed with the patient. She was given multiple doses of pain medication and continues to report chest pain. At this time I did recommend admission. Spoke with Osman butler [facility] for the admission. I will place cardiology on consultation. Patient remained in stable condition awaiting a bed on the floor Undiagnosed new problem with uncertain prognosis? @ -No Drug Therapy requiring intensive monitoring for toxicity (Heparin, Nitro, Insulin, Cardizem)? @ -No Were any procedures done? @ -No Diagnosis/symptom? @ -Acute atypical chest pain Acute, or Chronic, or Acute on Chronic? @ -Acute Uncomplicated (without systemic symptoms) or Complicated (systemic symptoms)? @ -Complicated Side effects of treatment? @ -No Exacerbation, Progression, or Severe Exacerbation? @ -No Poses a threat to life or bodily function? How? (Chest pain, [place], [place], pneumonia, PE, COPD, DKA, ARF, appy, cholecystitis, CVA, Diverticulitis, Homicidal, Suicidal, threat to staff... and all critical care pts) @ -No Disposition Clinical Impression: Atrial fibrillation with RVR, Chest pain Disposition: ADMITTED IP TO THIS [facility] Condition: Stable Is patient prescribed a controlled substance at d/c from ED?: No Time of Disposition: 15:00 Decision to Admit Reason: Admit from EC Decision Date: 04/01/24 Decision Time: 15:01
[2024-04-01] MEDS: DILTIAZEM DRIP BOLUS FROM BAG 1 MG SOLN IV ONE (15:46)
[2024-04-01] MEDS: DILTIAZEM 125 MG in SODIUM CHLORIDE 0.9% 100 ML IV SCH (15:46)
[2024-04-01] MEDS: MAGNESIUM SULFATE-D5W PMX 1 GM in DEXTROSE/WATER 1 100ML.BAG IVPB SCH (15:47)
--- NOTE | 2024-04-01 15:54 | P.HPIM ---
History of Present Illness H&P Date: 04/01/24 History of Presenting Illness: Patient is a very pleasant 78-year-old female with a past medical history of paroxysmal atrial fibrillation status post cardiac ablations and watchman's device placement she reports unable to take anticoagulants secondary to severe GI bleed, history of patient's PE, CAD with previous stents, history of recurrent syncopal episodes resulting in permanent pacemaker placement, HFpEF, hypertension, hyperlipidemia, CVA/TIA, hypothyroidism, and esophageal stricture status post multiple surgical esophageal dilation procedures. She presented to the emergency department with a chief complaint of left-sided chest pain. Patient reports she has been experiencing intermittent pain to left anterior chest off-and-on over the last week but states this morning the pain started and has not yet let up. Patient reports a persistent tightness and throbbing pain to left anterior chest accompanied by mild shortness of breath, palpitations and nausea. She denies having any recent illnesses or exposure to known ill contacts, fevers, chills, diaphoresis, headache, lightheadedness, dizziness, changes in vision or hearing, cough or congestion, abdominal pain, or experiencing any numbness/tingling/weakness/swelling in her extremities. Upon arrival to our facility, patient underwent evaluation in the emergency department and was found to be in atrial fibrillation with RVR. Vital signs upon arrival show blood pressure 122/89, heart rate 121, respiratory rate 22, temp 99.3 F, and SpO2 of 96% on room air.. EKG showing atrial fibrillation with RVR at a rate of 134 bpm. Chest x-ray negative for acute cardiopulmonary process showing changes of COPD. Labs completed and reviewed. CBC showing macrocytosis with MCV of 101.5. BMP showing hypokalemia with potassium of 3.4 and mild prerenal azotemia with BUN of 20. Blood glucose 112. Magnesium slightly low at 1.7. Liver profile showing elevated alkaline phosphatase of 137 otherwise normal findings. Troponin was negative at less than 0.012. Patient's ventricular rate reported to range from 130s to 150s by ED physician and therefore patient being started on Cardizem infusion at this time. Patient admitted under our services with consultation to cardiology. Review of systems: Pertinent positives and negatives as discussed in HPI, a complete review of systems was performed and all other systems are negative. Physical exam: Vital signs reviewed and stable. General: Nontoxic, no distress and appears stated age. Thin and frail build. Derm: Skin warm and dry, normal coloration for ethnicity. Head: Atraumatic, normocephalic and symmetric. Eyes: EOM's intact, no lid lag, and anicteric sclera Mouth: no lip lesions, mucus membranes moist Cardiovascular: irregularly irregular, systolic murmur, positive posterior tibial pulses bilaterally, and cap refill < 2 seconds. Lungs: Respirations even, regular, and unlabored on room air. Lungs CTA bilaterally, no rhonchi, no rales, no wheezing, and no accessory muscle usage. Abdominal: soft, nontender to palpation, no guarding, no appreciable o rganomegaly Ext: ROM intact. No gross muscle atrophy, no edema, no contractures Neuro: Speech clear, face symmetrical and CN II-XII grossly intact with no noted focal neuro deficits Psych: Alert and oriented to person, place, time, and situation. Appropriate and pleasant affect. Assessment and Plan of Care: Atrial fibrillation with RVR Chest pain, rule out acute coronary event History of CAD with previous stents History of recurrent syncopal episodes status post permanent pacemaker placement Chronic diastolic heart failure, not in acute exacerbation History of pulmonary emboli History of CVA -Cardiology consulted, appreciate recommendations -Continue Cardizem infusion at 5 mg/hr and titrate up to 15 mg/h for goal ventricular rate between 80 and 100 -Telemetry monitoring -Trend troponins -Order placed for stat D-dimer and TSH with free T4 -Continue cardiac medication regimen with aspirin 81 mg daily and metoprolol 50 mg daily and remainder of cardiac medications to be resumed once med reconciliation is completed. -Echocardiogram completed 02/07/2023 revealed a preserved EF of 55 to 60% and moderate right atrial dilation, will defer to cardiology if repeat echocardiogram is warranted -Pt is not on anticoagulation, reports having a watchman's device in place secondary to severe GI bleed. Electrolyte imbalances with hypokalemia and hypomagnesemia -Potassium 3.4 and replaced with K-Dur 40 mEq p.o. x 1 dose. Magnesium 1.7 and order placed for magnesium sulfate 2 g IVPB. -Continue to monitor electrolyte values with repeat a.m. labs and will replace a bnormal values as indicated based upon findings. Hypertension -Monitor vital signs and continue daily medication regimen with metoprolol 50 mg daily. Hypothyroidism -Follow-up on TSH with reflex free T4. Continue levothyroxine 112 mcg daily. Severe protein calorie malnutrition with BMI of 14.4 kg/m -Patient placed on Ensure 3 times daily between meals. History of esophageal stricture status post recurrent esophageal dilation procedures -Cardiac diet dysphagia level 2 ground diet -Aspiration precautions in place. Data and imaging reviewed: As stated above in HPI CODE STATUS: Full code DVT prophylaxis: Lovenox Anticipated discharge date: Pending clinical course Anticipated discharge place: Pending clinical course Patient was seen independently by Nurse Practitioner. This document was prepared using [employer] dictation software. Please allow for errors in postal worker while rare they do occur. Osman Smith NP rendered care for this patient independently, reviewed the fin dings and plan as documented in the note above and agree with plan. I did not physically speak with or examine the patient on this date. Past Medical History Past Medical History: Atrial Fibrillation, Blood Disorder, Coronary Artery Disease (CAD), Chest Pain / Angina, Heart Failure, COPD, CVA/TIA, Diabetes Mellitus, Fibromyalgia, GERD/Reflux, GI Bleed, Hypertension, Myocardial Infarction (NC), Musculoskeletal Disorder, Osteoarthritis (OA), Renal Disease, Seizure Disorder, Thyroid Disorder Additional Past Medical History / Comment(s): Pacemaker for Syncope/Tachybrady Syndrome. Hx RHEUMATIC FEVER. Heart murmur, chronic back and bilateral shoulder pain. SEVERE OSTEOPOROSIS, Vertigo, DJD, GI ulcers, esophagitis/esophageal stricture, PROBLEMS WITH SWALLOWING, FALLS - loses balance "Cannot lie down for long without having back pain - Broke back " Left hip ORIF of trochanteric comminuted femur fracture in November 2021, stroke 2022, Rt. shoulder fracture 08/14, past hx. epilepsy-not currently taking any meds, kidney disease- Stage 2, type 2 diabetes-not taking anything for Last Myocardial Infarction Date:: 2002 History of Any Multi-Drug Resistant Organisms: None Reported Past Surgical History: Appendectomy, Cardiac Ablation, Cholecystectomy, Ear Surgery, Heart Catheterization, Hernia Repair, Hysterectomy, Orthopedic Surgery, Pacemaker, Tonsillectomy Additional Past Surgical History / Comment(s): ORIF LEFT LOWER ARM, numerous DILATATION OF ESOPHAGUS, biopsies were negative, colonoscopy, Pacemaker (ADAPTA) placed 07/07 at [facility], bilateral stapedectomies(stainless steel in both ears), Hiatal Hernia repair, inguinal & femoral hernia repairs, "cement placed in back, due to broken back/pelvis". Left Femur Surgery 12/09/21. Watchman device 06/16 Past Anesthesia/Blood Transfusion Reactions: Family History of Problems w/ Anesthesia, Motion Sickness, Postoperative Nausea & Vomiting (PONV) Additional Past Anesthesia/Blood Transfusion Reaction / Comment(s): No problems with prior blood transfusion. BROTHER HAS PONV. Type of Cardiac Device: Permanent Pacemaker Device Placement Date:: 06/2016 Past Psychological History: Bipolar Smoking Status: Never smoker Past Alcohol Use History: None Reported Past Drug Use History: Marijuana - Past Family History Brother(s) Family Medical History: Cancer Additional Family Medical History / Comment(s): Throat cancer. Father Family Medical History: Pneumonia Additional Family Medical History / Comment(s): EMPHYSEMA. Mother Family Medical History: COPD, Rheumatoid Arthritis (RA) Additional Family Medical History / Comment(s): EMPHYSEMA. Medications and Allergies Home Medications Medication Instructions Recorded Confirmed Type Metoprolol Tartrate [Lopressor] 50 mg PO QAM 10/05/20 01/25/24 History Pantoprazole [Protonix] 40 mg PO BID 12/27/21 01/25/24 History Amiodarone [Cordarone] 200 mg PO QAM 02/03/22 01/25/24 History Ondansetron [Zofran] 4 mg PO Q8H PRN 09/20/22 01/25/24 History Aspirin EC [Ecotrin Low Dose] 81 mg PO QAM 11/13/22 01/25/24 History Levothyroxine Sodium [Synthroid] 112 mcg PO QAM 11/13/22 01/25/24 History Butalb/Acetaminophen/Caffeine 1 cap PO BID PRN 01/10/23 01/25/24 History [Fioricet 50-300-40 mg Capsule] dilTIAZem HCL [dilTIAZem HCL 24Hr 180 mg PO QAM 01/10/23 01/25/24 History ER (CD)] Desloratadine [Clarinex] 5 mg PO HS 02/07/23 01/25/24 History Lidocaine 5% Patch [Lidoderm 5% 1 patch TRANSDERM BID 04/01/23 01/25/24 History Patch] Buprenorphine [Buprenorphine 20 2 patch TRANSDERM Q6D 09/27/23 01/25/24 History MCG/HR] Diclofenac Sodium Gel [Voltaren 1% 100 gm TOPICAL QID PRN 09/27/23 01/25/24 History Gel] Diphenox-Atrop 2.5-0.025 mg 1 tab PO QID PRN 09/27/23 01/25/24 History [Lomotil] diphenhydrAMINE HCL [Benadryl] 25 mg PO HS 09/27/23 01/25/24 History Acetaminophen [Tylenol Extra 500 mg PO Q6H PRN 01/25/24 01/25/24 History Strength] Albuterol Inhaler [Ventolin Hfa 1 - 2 puff INHALATION Q6H PRN 01/25/24 01/25/24 History Inhaler] Benzonatate [Tessalon Perles] 100 mg PO TID PRN 01/25/24 01/25/24 History Citalopram Hydrobromide [CeleXA] 40 mg PO DAILY 01/25/24 01/25/24 History Dicyclomine [Bentyl] 10 mg PO TID PRN 01/25/24 01/25/24 History Folic Acid 1 mg PO DAILY 01/25/24 01/25/24 History Furosemide [Lasix] 40 mg PO BID 01/25/24 01/25/24 History L.acidoph,Paracasei, B.lactis 1 each PO DAILY 01/25/24 01/25/24 History [Probiotic] Meloxicam [Mobic] 7.5 mg PO DAILY 01/25/24 01/25/24 History Methylcellulose (with Sugar) 2 gm PO DIRECTED PRN 01/25/24 01/25/24 History [Citrucel Powder] Potassium Chloride Oral Liquid 15 ml PO TID 01/25/24 01/25/24 History Triamcinolone 0.5% Cream [Kenalog 1 applic TOPICAL DAILY 01/25/24 01/25/24 History 0.5% Cream] witch Zoila [Tucks Medicated Pads] 1 pad TOPICAL DIRECTED PRN 01/25/24 01/25/24 History Allergies Allergy/AdvReac Type Severity Reaction Status Date / Time adhesive Allergy RASH FROM Verified 04/01/24 15:26 EKG STICKERS apixaban [From Eliquis] Allergy Rash/Hives Verified 04/01/24 15:26 celecoxib [From Celebrex] Allergy Rash/Hives Verified 04/01/24 15:26 sertraline HCl [From Zoloft] Allergy Rash/Hives Verified 04/01/24 15:26 sulfamethoxazole Allergy Anaphylaxis Verified 04/01/24 15:26 [From Bactrim] trimethoprim [From Bactrim] Allergy Anaphylaxis Verified 04/01/24 15:26 cholestyramine AdvReac DIZZY/CONFU Verified 04/01/24 15:26 SED hydroxyzine [From Vistaril] AdvReac Nausea & Verified 04/01/24 15:26 Vomiting & Diarrhea Physical Exam Vitals: Vital Signs Temp Pulse Resp BP Pulse Ox 04/01/24 13:28 125 H 04/01/24 13:27 151 H 22 98 04/01/24 12:55 99.3 F 121 H 22 122/89 96 Intake and Output 04/01/24 04/01/24 04/01/24 06:59 14:59 22:59 Other: Weight 34.473 kg Results CBC & Chem 7: 04/01/24 13:09 04/01/24 13:09 Labs: Abnormal Lab Results - Last 24 Hours (Table) 04/01/24 04/01/24 04/01/24 Range/Units 13:09 13:09 14:09 Hct 48.7 H (34.0-46.0) % MCV 101.5 H (80.0-100.0) fL Lymphocytes # 0.8 L (1.0-4.8) k/uL APTT 19.0 L (22.0-30.0) sec Potassium 3.4 L (3.5-5.1) mmol/L BUN 20 H (7-17) mg/dL Glucose 112 H (74-99) mg/dL Alkaline Phosphatase 137 H (38-126) U/L
[2024-04-01] MEDS: POTASSIUM CHLORIDE ER 20 MEQ TAB.ER PO STA (16:02)
[2024-04-01] MEDS: POTASSIUM CHLORIDE 10 MEQ in WATER FOR INJECTION 1 100ML.BAG IVPB SCH (16:13)
[2024-04-01 17:25] LABS: T4, Free (Free Thyroxine) 1.14 ng/dL (0.78-2.19)
[2024-04-01] MEDS: MORPHINE SULFATE 4 MG/ML SYRINGE IVP PRN (17:27)
[2024-04-01] MEDS: HYDROcodone/APAP 5-325MG 1 EACH TAB PO PRN (20:45)
--- NOTE | 2024-04-02 02:07 | CT ---
EXAMINATION TYPE: CT angio chest DATE OF EXAM: 04/02/2024 COMPARISON: Prior chest CT February 13, 2024 HISTORY: ELEVATED D-DIMER CT DLP: 183 mGycm. Automated Exposure Control for Dose Reduction was Utilized. CONTRAST: CTA scan of the thorax is performed with IV Contrast, patient injected with 52 mL of Isovue 370, pulm onary embolism protocol. MIP Images are created on CT scanner and reviewed. FINDINGS: LUNGS: There is a barrel-shaped chest redemonstrated. Mild/moderate linear scarring posterior right l ower lobe redemonstrated. Left lung remains clear. No pleural effusion or pneumothorax seen bilateral ly. MEDIASTINUM: There is satisfactory enhancement of the pulmonary artery and its branches, there is no CT evidence for pulmonary embolism. Surgical change of atrial appendage surgery is redemonstrated. Pe rsistent mild cardiomegaly with multilead pacemaker. No pericardial effusion.. OTHER: Scoliosis redemonstrated. Exaggerated thoracic kyphosis again seen. Persistent multilevel comp ression type fractures with two-level vertebroplasty on current study in the midthoracic spine. IMPRESSION: No CT evidence for acute pulmonary embolism. No suspicious acute pulmonary parenchymal pr ocess. [facility], , 04/02/2024 2:04 AM
[2024-04-02] MEDS: ONDANSETRON 4 MG/2 ML VIAL IVP PRN (06:44)
[2024-04-02] MEDS: LEVOTHYROXINE 112 MCG TAB PO SCH (06:57)
[2024-04-02 09:09] VITALS: BP 125/80; PULSE 80; RESP 17; TEMP 98
[2024-04-02 09:16] LABS: HCT 45.2 % (37.2-46.3); HGB 14.6 g/dL (12.0-15.0); MCH 32.5 pg (27.0-32.0); MCHC 32.3 g/dL (32.0-37.0); MCV 100.7 FL (80.0-97.0); Mean Platelet Volume 11.2 FL (9.5-12.2); NRBC Per 100 WBC 0 X 10*3/uL (0.00-0.01); Platelet Count 318 X 10*3/uL (140-440); RBC 4.49 X 10*6/uL (4.10-5.20); RDW 13.6 % (11.5-14.5); WBC 8.03 X 10*3/uL (4.50-10.00)
[2024-04-02 09:30] LABS: BUN/Creat Ratio 22.14 Ratio (12.00-20.00); Blood Urea Nitrogen 15.5 mg/dL (9.0-27.0); Carbon Dioxide 25.6 mmol/L (21.6-31.8); Chloride 102 mmol/L (96-109); Glucose 104 mg/dL (70-110); Magnesium 2.5 mg/dL (1.5-2.4); Potassium 3.6 mmol/L (3.5-5.5); Sodium 140 mmol/L (135-145)
[2024-04-02] MEDS: ASPIRIN 81 MG PO SCH (10:01)
[2024-04-02] MEDS: METOPROLOL TARTRATE 50 MG TAB PO SCH (10:01)
[2024-04-02] MEDS: ENOXAPARIN 30 MG/0.3 ML SYRINGE SQ SCH (10:01)
[2024-04-02] MEDS: AMIODARONE 200 MG TAB PO SCH ×2 (10:01→10:41)
--- NOTE | 2024-04-02 10:31 | P.CRDCN ---
History of Present Illness Consult date: 04/02/24 Reason for Consult (text): A-fib with RVR, chest pain History of present illness: This is a 78-year-old female patient of Dr. Penn with past medical history of persistent atrial fibrillation status post Watchman placement due to recurrent bleeding, moderate to severe mitral and severe tricuspid regurgitation, esophageal strictures status post multiple esophageal dilatations, atypical chest pain, permanent pacemaker dual-chamber. We have been asked to evaluate the patient for A-fib with RVR and chest pain. Patient is complaining of chest pain to the lower left side radiating around to the back. Patient has had falls at home and also had ongoing difficulty with swallowing. Patient states that she had fallen and hurt her ribs. Regarding atrial fibrillation, patient converted to sinus rhythm around 730 this morning. She was on Cardizem drip which will be discontinued. Patient is not on anticoagulation due to Watchman procedure. Blood pressure 125/80, heart rate 80, pulse ox 96% on room air. -EKG: #1 A-fib with RVR 134 bpm, #2 atrial fibrillation at 77 bpm, #3 sinus rhythm 57 bpm -Chest x-ray: No acute process. COPD. -CTA of the chest: No CT evidence of acute pulmonary embolism. No suspicious acute pulmonary parenchymal process. -Laboratory studies: WBC 8, hemoglobin 14.6, D-dimer 0.91. Potassium 3.4 was replaced and repeat 3.6, creatinine 0.7. Troponin negative x 3. TSH 5.9 and free T4 normal at 1.14. -Home cardiac medications: Amiodarone 200 mg daily, aspirin 81 mg daily, diltiazem 180 mg daily, Lasix 40 mg twice daily, Lopressor 50 mg daily, potassium chloride 40 mill equivalents 3 times daily, also on levothyroxine. -Echocardiogram performed 01/02/2024 revealed EF of 52%, severe TR, moderate to severe MR, mild AR. -Cardiac catheterization in 2002 was normal EF with normal coronaries. -Lexiscan stress test performed 07/21/2022 revealed EF of 50% and normal study -Watchman procedure performed 11/01/2022. Review Of Systems: At the time of my exam: CONSTITUTIONAL: Denies fever or chills. HEENT: Denies blurred vision, vision changes, or eye pain. Denies hemoptysis CARDIOVASCULAR: Denies chest pain. Denies orthopnea. Denies PND. Denies palpitations RESPIRATORY: Denies shortness of breath. GASTROINTESTINAL: Denies abdominal pain. Denies nausea or vomiting. Reports difficulty swallowing. HEMATOLOGIC: Denies bleeding disorders. GENITOURINARY: Denies any blood in urine. SKIN: Denies puritis. Denies rash. Physical examination: Gen: This is a frail cachectic appearing 78-year-old female in no acute distress VS: reviewed HEENT: Head is atraumatic, normocephalic. Pupils equal, round. Sclerae is anicteric. NECK: Supple. No JVD. LUNGS: Clear to auscultation. No wheezes or rhonchi. No intercostal retractions. HEART: Regular rate and rhythm. Systolic murmur. Chest wall tenderness. ABDOMEN: Soft No tenderness. EXTREMITIES: No pedal edema. No calf tenderness. NEUROLOGICAL: Patient is awake, alert and oriented x3. Assessment: Paroxysmal A-fib with RVR, now sinus rhythm Status post Watchman procedure Atypical chest pain, acute coronary syndrome ruled out Esophageal strictures Moderate to severe mitral and severe tricuspid regurgitation Plan: Resume patient's home cardiac medications with the following changes: Change Cardizem to short acting 30 mg 3 times daily as patient has been opening the capsule on the long-acting at home because she is having difficulty swallowing pills Change amiodarone 200 mg to frequency of every 48 hours No need to obtain echocardiogram as this was done in December No plan for any further cardiac workup Patient is cleared for discharge home from a cardiology perspective. Patient will follow-up in the office with Dr. Penn in 3 weeks. Thank you kindly for this consultation. Nurse practitioner note has been reviewed, I agree with documented findings and plan of care. Patient was seen and examined. Past Medical History Past Medical History: Atrial Fibrillation, Blood Disorder, Coronary Artery Dis ease (CAD), Chest Pain / Angina, Heart Failure, COPD, CVA/TIA, Diabetes Mellitus, Fibromyalgia, GERD/Reflux, GI Bleed, Hypertension, Myocardial Infarction (MO), Musculoskeletal Disorder, Osteoarthritis (OA), Renal Disease, Seizure Disorder, Thyroid Disorder Additional Past Medical History / Comment(s): Pacemaker for Syncope/Tachybrady Syndrome. Hx RHEUMATIC FEVER. Heart murmur, chronic back and bilateral shoulder pain. SEVERE OSTEOPOROSIS, Vertigo, DJD, GI ulcers, esophagitis/esophageal stricture, PROBLEMS WITH SWALLOWING, FALLS - loses balance "Cannot lie down for long without having back pain - Broke back " Left hip ORIF of trochanteric comminuted femur fracture in November 2021, stroke 2022, Rt. shoulder fracture 08/14, past hx. epilepsy-not currently taking any meds, kidney disease- Stage 2, type 2 diabetes-not taking anything for (patient denies hx diabetes) Last Myocardial Infarction Date:: 2002 History of Any Multi-Drug Resistant Organisms: None Reported Past Surgical History: Appendectomy, Cardiac Ablation, Cholecystectomy, Ear Surgery, Heart Catheterization, Hernia Repair, Hysterectomy, Orthopedic Surgery, Pacemaker, Tonsillectomy Additional Past Surgical History / Comment(s): ORIF LEFT LOWER ARM, numerous DILATATION OF ESOPHAGUS, biopsies were negative, colonoscopy, Pacemaker (ADAPTA) placed 07/07 at [facility], bilateral stapedectomies(stainless steel in both ears), Hiatal Hernia repair, inguinal & femoral hernia repairs, "cement placed in back, due to broken back/pelvis". Left Femur Surgery 12/09/21. Watchman device 06/16 Past Anesthesia/Blood Transfusion Reactions: Family History of Problems w/ Ane sthesia, Motion Sickness, Postoperative Nausea & Vomiting (PONV) Additional Past Anesthesia/Blood Transfusion Reaction / Comment(s): No problems with prior blood transfusion. BROTHER HAS PONV. Type of Cardiac Device: Permanent Pacemaker Device Placement Date:: 06/2016 Past Psychological History: Bipolar Additional Psychological History / Comment(s): DENIES ANY HX OF PROBLEM Smoking Status: Never smoker Past Alcohol Use History: None Reported Additional Past Alcohol Use History / Comment(s): Lives alone Past Drug Use History: Marijuana - Past Family History Brother(s) Family Medical History: Cancer Additional Family Medical History / Comment(s): Throat cancer. Father Family Medical History: Pneumonia Additional Family Medical History / Comment(s): EMPHYSEMA. Mother Family Medical History: COPD, Rheumatoid Arthritis (RA) Additional Family Medical History / Comment(s): EMPHYSEMA. Medications and Allergies Home Medications Medication Instructions Recorded Confirmed Type Metoprolol Tartrate [Lopressor] 50 mg PO DAILY 10/05/20 04/01/24 History Pantoprazole [Protonix] 40 mg PO BID 12/27/21 04/01/24 History Amiodarone [Cordarone] 200 mg PO DAILY 02/03/22 04/01/24 History Ondansetron [Zofran] 4 mg PO Q8H PRN 09/20/22 04/01/24 History Aspirin EC [Ecotrin Low Dose] 81 mg PO DAILY 11/13/22 04/01/24 History Butalb/Acetaminophen/Caffeine 1 cap PO BID PRN 01/10/23 04/01/24 History [Fioricet 50-300-40 mg Capsule] Lidocaine 5% Patch [Lidoderm 5% 1 patch TRANSDERM BID 04/01/23 04/01/24 History Patch] Buprenorphine [Buprenorphine 20 3 patch TRANSDERM WE 09/27/23 04/01/24 History MCG/HR] Diclofenac Sodium Gel [Voltaren 1% 1 applic TOPICAL QID PRN 09/27/23 04/01/24 History Gel] Diphenox-Atrop 2.5-0.025 mg 1 tab PO QID PRN 09/27/23 04/01/24 History [Lomotil] diphenhydrAMINE HCL [Benadryl] 25 mg PO HS 09/27/23 04/01/24 History Acetaminophen [Tylenol Extra 500 mg PO Q6H PRN 01/25/24 04/01/24 History Strength] Albuterol Inhaler [Ventolin Hfa 2 puff INHALATION RT-Q6H PRN 01/25/24 04/01/24 History Inhaler] Benzonatate [Tessalon Perles] 100 mg PO TID PRN 01/25/24 04/01/24 History Citalopram Hydrobromide [CeleXA] 40 mg PO DAILY 01/25/24 04/01/24 History Dicyclomine [Bentyl] 10 mg PO TID PRN 01/25/24 04/01/24 History Folic Acid 1 mg PO DAILY 01/25/24 04/01/24 History Furosemide [Lasix] 40 mg PO BID@0700,1500 01/25/24 04/01/24 History L.acidoph,Paracasei, B.lactis 1 cap PO DAILY 01/25/24 04/01/24 History [Probiotic] Meloxicam [Mobic] 7.5 mg PO DAILY 01/25/24 04/01/24 History Methylcellulose (with Sugar) 3 tsp PO BID PRN 01/25/24 04/01/24 History [Citrucel Powder] Potassium Chloride Oral Liquid 40 meq PO TID 01/25/24 04/01/24 History Triamcinolone 0.5% Cream [Kenalog 1 applic TOPICAL DAILY 01/25/24 04/01/24 History 0.5% Cream] witch Zoila [Tucks Medicated Pads] 1 pad TOPICAL DIRECTED PRN 01/25/24 04/01/24 History Desloratadine [Clarinex] 5 mg PO DAILY 04/01/24 04/01/24 History Levothyroxine Sodium [Synthroid] 112 mcg PO DAILY 04/01/24 04/01/24 History Orphenadrine Citrate [Orphenadrine 100 mg PO BID 04/01/24 04/01/24 History Citrate ER] dilTIAZem HCL [Tiazac] 180 mg PO DAILY 04/01/24 04/01/24 History Allergies Allergy/AdvReac Type Severity Reaction Status Date / Time adhesive Allergy RASH FROM Verified 04/01/24 15:26 EKG STICKERS apixaban [From Eliquis] Allergy Rash/Hives Verified 04/01/24 15:26 celecoxib [From Celebrex] Allergy Rash/Hives Verified 04/01/24 15:26 sertraline HCl [From Zoloft] Allergy Rash/Hives Verified 04/01/24 15:26 sulfamethoxazole Allergy Anaphylaxis Verified 04/01/24 15:26 [From Bactrim] trimethoprim [From Bactrim] Allergy Anaphylaxis Verified 04/01/24 15:26 cholestyramine AdvReac DIZZY/CONFU Verified 04/01/24 15:26 SED hydroxyzine [From Vistaril] AdvReac Nausea & Verified 04/01/24 15:26 Vomiting & Diarrhea Physical Exam Vitals: Vital Signs Temp Pulse Pulse Resp BP BP Pulse Ox 04/02/24 07:00 98.0 F 80 17 125/80 96 04/02/24 06:42 121/77 04/02/24 00:34 97.7 F 87 18 116/72 97 04/02/24 00:32 97.7 F 87 18 116/72 97 04/01/24 23:20 97.6 F 82 18 101/66 96 04/01/24 23:07 77 16 107/68 98 04/01/24 21:00 118/83 12/10/24 18:01 98.2 F 86 16 118/83 95 04/01/24 18:00 88 12 118/83 96 04/01/24 17:00 13 96 04/01/24 16:00 75 15 93 L 04/01/24 15:00 112 H 10 L 122/89 94 L 04/01/24 14:00 126 H 17 122/89 96 04/01/24 13:28 125 H 04/01/24 13:27 151 H 22 98 04/01/24 12:55 99.3 F 121 H 22 122/89 96 Intake and Output 04/01/24 04/02/24 04/02/24 22:59 06:59 14:59 Intake Total 0 Balance 0 Intake: Oral 0 Other: Voiding Method Toilet Toilet # Voids 2 1 Weight 34.473 kg Results 04/02/24 05:19 04/02/24 05:19 Cardiac Enzymes 04/01/24 04/01/24 04/01/24 Range/Units 13:09 13:09 15:50 AST 22 (14-36) U/L Troponin I <0.012 <0.012 (0.000-0.034) ng/mL 04/01/24 Range/Units 20:30 AST (14-36) U/L Troponin I <0.012 (0.000-0.034) ng/mL Coagulation 04/01/24 Range/Units 14:09 PT 10.3 (10.0-12.5) sec APTT 19.0 L (22.0-30.0) sec CBC 04/01/24 04/02/24 Range/Units 13:09 05:19 WBC 8.6 8.03 (3.8-10.6) k/uL RBC 4.80 4.49 (3.80-5.40) m/uL Hgb 15.9 14.6 (11.4-16.0) gm/dL Hct 48.7 H 45.2 (34.0-46.0) % Plt Count 313 318 (150-450) k/uL Comprehensive Metabolic Panel 04/01/24 04/02/24 Range/Units 13:09 05:19 Sodium 139 140 (137-145) mmol/L Potassium 3.4 L 3.6 (3.5-5.1) mmol/L Chloride 102 102 (98-107) mmol/L Carbon Dioxide 28 25.6 (22-30) mmol/L BUN 20 H 15.5 (7-17) mg/dL Creatinine 0.71 0.7 (0.52-1.04) mg/dL Glucose 112 H 104 (74-99) mg/dL Calcium 9.4 9.0 (8.4-10.2) mg/dL AST 22 (14-36) U/L ALT 12 (4-34) U/L Alkaline Phosphatase 137 H (38-126) U/L Total Protein 7.8 (6.3-8.2) g/dL Albumin 4.6 (3.5-5.0) g/dL Current Medications Generic Name Dose Route Start Last Admin Trade Name Freq PRN Reason Stop Dose Admin Acetaminophen 650 mg 04/01/24 14:56 Acetaminophen Tab 325 Mg Tab PO Q6HR PRN Mild Pain or Fever > 100.5 Hydrocodone Bitart/Acetaminophen 1 each 04/01/24 14:56 04/01/24 20:45 Hydrocodone/Apap 5-325mg 1 Each Tab PO 1 each Q4HR PRN Administration Moderate to Severe Pain (4-10) Amiodarone HCl 200 mg 04/02/24 09:00 04/02/24 10:01 Amiodarone 200 Mg Tab PO 200 mg Q48H INOCENCIO Administration Aspirin 81 mg 04/02/24 09:00 04/02/24 10:01 Aspirin 81 Mg PO 81 mg QAM INOCENCIO Administration Diltiazem HCl 180 mg 04/02/24 09:00 Diltiazem Cd 180 Mg Cap.Er.24h PO DAILY INOCENCIO Enoxaparin Sodium 30 mg 04/02/24 09:00 04/02/24 10:01 Enoxaparin 30 Mg/0.3 Ml Syringe SQ 30 mg DAILY INOCENCIO Administration Levothyroxine Sodium 112 mcg 04/02/24 06:30 04/02/24 06:57 Levothyroxine 112 Mcg Tab PO 112 mcg QAM@0630 INOCENCIO Administration Melatonin 3 mg 04/01/24 14:56 Melatonin 3 Mg Tablet PO HS PRN Insomnia Metoprolol Tartrate 50 mg 04/02/24 09:00 04/02/24 10:01 Metoprolol Tartrate 50 Mg Tab PO 50 mg QAM INOCENCIO Administration Morphine Sulfate 4 mg 04/01/24 17:06 04/02/24 08:28 Morphine Sulfate 4 Mg/Ml Syringe IVP 4 mg Q6HR PRN Administration Pain Naloxone HCl 0.2 mg 04/01/24 14:56 Naloxone 0.4 Mg/Ml 1 Ml Vial IVP Q2M PRN Opioid Reversal Ondansetron HCl 4 mg 04/01/24 14:56 04/02/24 06:44 Ondansetron 4 Mg/2 Ml Vial IVP 4 mg Q8HR PRN Administration Nausea And Vomiting Intake and Output 04/01/24 04/02/24 04/02/24 22:59 06:59 14:59 Intake Total 0 Balance 0 Intake: Oral 0 Other: Voiding Method Toilet Toilet # Voids 2 1 Weight 34.473 kg 04/02/24 05:19 04/02/24 05:19
[2024-04-02] MEDS: DILTIAZEM CD 180 MG CAP.ER.24H PO SCH (10:41)
--- NOTE | 2024-04-02 10:49 | P.DS ---
Providers Date of admission: 04/01/24 15:15 Expected date of discharge: 04/02/24 Attending physician: Misha Calabrese Consults: 04/01/24 14:58 Consult Physician Routine Consulting Provider: [facility] Consult Reason/Comments: Afib with RVR Do you want consulting provider notified?: Already Contacted Primary care physician: Grant Mario MD Hospital Course: Discharge Diagnosis: Atrial fibrillation with RVR. Patient was started on a Cardizem infusion and converted to normal sinus mechanism. Patient was evaluated by semi automatic sewing machine operator and medication changes were made. Amiodarone decreased to 200 mg every 48 hours and Cardizem was changed from extended release capsule to tablet 30 mg 3 times daily as patient reports she was opening capsule and taking contents with applesauce each morning. Patient cleared from cardiology perspective and is medically sta ble for discharge at this time. Called and reported medication changes to patient's PCP. Patient discharged home with home care through [facility]. Chest pain, secondary to atrial fibrillation with RVR. Acute coronary event ruled out. History of CAD with previous stents History of recurrent syncopal episodes status post permanent pacemaker placement Chronic diastolic heart failure, not in acute exacerbation History of pulmonary emboli Elevated D-dimer. CTA negative for pulmonary emboli. History of CVA Electrolyte imbalances with hypokalemia and hypomagnesemia Hypertension Hypothyroidism. TSH 5.920 with free T4 of 1.14. Continue levothyroxine 112 mcg daily. Severe protein calorie malnutrition with BMI of 14.4 kg/m discussed with alvina humphreys. Recommend continuation of protein supplements 3 times daily between meals. History of esophageal stricture status post recurrent esophageal dilation procedures. Resume soft/chopped pured diet. Hospital Course: Patient is a very pleasant 78-year-old female with a past medical history of paroxysmal atrial fibrillation status post cardiac ablations and watchman's device placement she reports unable to take anticoagulants secondary to severe GI bleed, history of patient's PE, CAD with previous stents, history of recurrent syncopal episodes resulting in permanent pacemaker placement, HFpEF, hypertension, hyperlipidemia, CVA/TIA, hypothyroidism, and esophageal stricture status post multiple surgical esophageal dilation procedures. She presented to the emergency department with a chief complaint of left-sided chest pain. Patient reports she has been experiencing intermittent pain to left anterior chest off-and-on over the last week but states this morning the pain started and has not yet let up. Patient reports a persistent tightness and throbbing pain to left anterior chest accompanied by mild shortness of breath, palpitations and nausea. She denies having any recent illnesses or exposure to known ill contacts, fevers, chills, diaphoresis, headache, lightheadedness, dizziness, changes in vision or hearing, cough or congestion, abdominal pain, or experiencing any numbness/tingling/weakness/swelling in her extremities. Upon arrival to our facility, patient underwent evaluation in the emergency department and was found to be in atrial fibrillation with RVR. Vital signs upon arrival show blood pressure 122/89, heart rate 121, respiratory rate 22, t emp 99.3 F, and SpO2 of 96% on room air.. EKG showing atrial fibrillation with RVR at a rate of 134 bpm. Chest x-ray negative for acute cardiopulmonary process showing changes of COPD. Labs completed and reviewed. CBC showing macrocytosis with MCV of 101.5. BMP showing hypokalemia with potassium of 3.4 and mild prerenal azotemia with BUN of 20. Blood glucose 112. Magnesium slightly low at 1.7. Liver profile showing elevated alkaline phosphatase of 137 otherwise normal findings. Troponin was negative at less than 0.012. Patient's ventricular rate reported to range from 130s to 150s by ED physician and therefore patient being started on Cardizem infusion at this time. Patient admitted under our services with consultation to cardiology. Troponins were trended all negative at less than 0.012 x 3 draws. TSH 5.920 with free T41.14. As stated above, patient was started on a Cardizem infusion and converted to normal sinus mechanism. Patient was evaluated by semi automatic sewing machine operator and medication changes were made. Amiodarone decreased to 200 mg every 48 hours and Cardizem was changed from extended release capsule to tablet 30 mg 3 times daily as patient reports she was opening capsule and taking contents with applesauce each morning. Patient cleared from cardiology perspective and is medically stable for discharge at this time. Called and reported medication changes to patient's PCP. Patient discharged home with [facility] care through [facility]. Physical exam: Vital signs reviewed and stable. General: Nontoxic, no distress and appears stated age. Thin and frail build. Derm: Skin warm and dry, normal coloration for ethnicity. Head: Atraumatic, normocephalic and symmetric. Eyes: EOM's intact, no lid lag, and anicteric sclera Mouth: no lip lesions, mucus membranes moist Cardiovascular: irregularly irregular, systolic murmur, positive posterior tibial pulses bilaterally, and cap refill < 2 seconds. Lungs: Respirations even, regular, and unlabored on room air. Lungs CTA bilaterally, no rhonchi, no rales, no wheezing, and no accessory muscle usage. Abdominal: soft, nontender to palpation, no guarding, no appreciable organomegaly Ext: ROM intact. No gross muscle atrophy, no edema, no contractures Neuro: Speech clear, face symmetrical and CN II-XII grossly intact with no noted focal neuro deficits Psych: Alert and oriented to person, place, time, and situation. Appropriate and pleasant affect. A total of 35 minutes of time were spent preparing this complex discharge summary. Pt was discharged on 04/02/2024 at 10:37 AM. Patient was seen independently by Nurse Practitioner. This document was prepared using [employer] dictation software. Please allow for errors in retail project merchandiser while rare they do occur. Osman Smith NP rendered care for this patient independently, reviewed the findings and plan as documented in the note above. I did not physically speak with or examine the patient on this date. Patient Condition at Discharge: Stable Plan - Discharge Summary Discharge Rx Participant: No New Discharge Prescriptions: New Diltiazem Oral [Cardizem*] 30 mg PO TID 30 Days #90 tab Amiodarone [Cordarone] 200 mg PO Q48H 30 Days #15 tab Continue Metoprolol Tartrate [Lopressor] 50 mg PO DAILY Ondansetron [Zofran] 4 mg PO Q8H PRN PRN Reason: Nausea And Vomiting Diclofenac Sodium Gel [Voltaren 1% Gel] 1 applic TOPICAL QID PRN PRN Reason: Pain Buprenorphine [Buprenorphine 20 MCG/HR] 3 patch TRANSDERM WE diphenhydrAMINE HCL [Benadryl] 25 mg PO HS Dicyclomine [Bentyl] 10 mg PO TID PRN PRN Reason: Spasms Albuterol Inhaler [Ventolin Hfa Inhaler] 2 puff INHALATION RT-Q6H PRN PRN Reason: Shortness Of Breath Triamcinolone 0.5% Cream [Kenalog 0.5% Cream] 1 applic TOPICAL DAILY Folic Acid 1 mg PO DAILY Meloxicam [Mobic] 7.5 mg PO DAILY Furosemide [Lasix] 40 mg PO BID@0700,1500 witch Zoila [Tucks Medicated Pads] 1 pad TOPICAL DIRECTED PRN PRN Reason: Hemorrhoids Potassium Chloride Oral Liquid 40 meq PO TID Citalopram Hydrobromide [CeleXA] 40 mg PO DAILY Levothyroxine Sodium [Synthroid] 112 mcg PO DAILY Pantoprazole [Protonix] 40 mg PO BID Aspirin EC [Ecotrin Low Dose] 81 mg PO DAILY Butalb/Acetaminophen/Caffeine [Fioricet 50-300-40 mg Capsule] 1 cap PO BID PRN PRN Reason: Migraine Headache Lidocaine 5% Patch [Lidoderm 5% Patch] 1 patch TRANSDERM BID Diphenox-Atrop 2.5-0.025 mg [Lomotil] 1 tab PO QID PRN PRN Reason: Diarrhea Methylcellulose (with Sugar) [Citrucel Powder] 3 tsp PO BID PRN PRN Reason: Constipation Benzonatate [Tessalon Perles] 100 mg PO TID PRN PRN Reason: Cough L.acidoph,Paracasei, B.lactis [Probiotic] 1 cap PO DAILY Acetaminophen [Tylenol Extra Strength] 500 mg PO Q6H PRN PRN Reason: Pain Orphenadrine Citrate [Orphenadrine Citrate ER] 100 mg PO BID Desloratadine [Clarinex] 5 mg PO DAILY Discontinued Amiodarone [Cordarone] 200 mg PO DAILY dilTIAZem HCL [Tiazac] 180 mg PO DAILY Discharge Medication List Metoprolol Tartrate [Lopressor] 50 mg PO DAILY 10/05/20 [History] Pantoprazole [Protonix] 40 mg PO BID 12/27/21 [History] Ondansetron [Zofran] 4 mg PO Q8H PRN 09/20/22 [History] Aspirin EC [Ecotrin Low Dose] 81 mg PO DAILY 11/13/22 [History] Butalb/Acetaminophen/Caffeine [Fioricet 50-300-40 mg Capsule] 1 cap PO BID PRN 01/10/23 [History] Lidocaine 5% Patch [Lidoderm 5% Patch] 1 patch TRANSDERM BID 04/01/23 [History] Buprenorphine [Buprenorphine 20 MCG/HR] 3 patch TRANSDERM WE 09/27/23 [History] Diclofenac Sodium Gel [Voltaren 1% Gel] 1 applic TOPICAL QID PRN 09/27/23 [History] Diphenox-Atrop 2.5-0.025 mg [Lomotil] 1 tab PO QID PRN 09/27/23 [History] diphenhydrAMINE HCL [Benadryl] 25 mg PO HS 09/27/23 [History] Acetaminophen [Tylenol Extra Strength] 500 mg PO Q6H PRN 01/25/24 [History] Albuterol Inhaler [Ventolin Hfa Inhaler] 2 puff INHALATION RT-Q6H PRN 01/25/24 [History] Benzonatate [Tessalon Perles] 100 mg PO TID PRN 01/25/24 [History] Citalopram Hydrobromide [CeleXA] 40 mg PO DAILY 01/25/24 [History] Dicyclomine [Bentyl] 10 mg PO TID PRN 01/25/24 [History] Folic Acid 1 mg PO DAILY 01/25/24 [History] Furosemide [Lasix] 40 mg PO BID@0700,1500 01/25/24 [History] L.acidoph,Paracasei, B.lactis [Probiotic] 1 cap PO DAILY 01/25/24 [History] Meloxicam [Mobic] 7.5 mg PO DAILY 01/25/24 [History] Methylcellulose (with Sugar) [Citrucel Powder] 3 tsp PO BID PRN 01/25/24 [History] Potassium Chloride Oral Liquid 40 meq PO TID 01/25/24 [History] Triamcinolone 0.5% Cream [Kenalog 0.5% Cream] 1 applic TOPICAL DAILY 01/25/24 [History] witch Zoila [Tucks Medicated Pads] 1 pad TOPICAL DIRECTED PRN 01/25/24 [History] Desloratadine [Clarinex] 5 mg PO DAILY 04/01/24 [History] Levothyroxine Sodium [Synthroid] 112 mcg PO DAILY 04/01/24 [History] Orphenadrine Citrate [Orphenadrine Citrate ER] 100 mg PO BID 04/01/24 [History] Amiodarone [Cordarone] 200 mg PO Q48H 30 Days #15 tab 04/02/24 [Rx] Diltiazem Oral [Cardizem*] 30 mg PO TID 30 Days #90 tab 04/02/24 [Rx] Follow up Appointment(s)/Referral(s): Grant Mario MD [Primary Care Provider] - 1-2 days Eleln Penn MD [STAFF PHYSICIAN] - 04/14/24 10:15 am Patient Instructions/Handouts: A-fib (Atrial Fibrillation) (DC) Activity/Diet/Wound Care/Special Instructions: Activity: As tolerated. Take breaks as needed. Diet: Heart healthy and carb consistent diet. Avoid salts, or foods with hidden salts such as canned or boxed foods and frozen dinners. Extra salt makes your heart work harder and traps the fluid in your body for longer. Special Instructions: Take all of your medications as directed and remember to keep all of your doctor's appointments and follow-up as needed. Wishing you a truly blessed and wonderful Holiday Season and a Happy Healthy New Year!! Thank you for allowing us to participate in your care, it was truly a pleasure having you for our patient!!! . Discharge Disposition: HOME WITH HOME HEALTH SERVICES
[2024-04-02] MEDS: DILTIAZEM ORAL 30 MG TAB PO SCH (11:35)
[2024-04-02 13:59] VITALS: BMI 14.3
== END 2024-04-02 14:00 | disposition home health service (06) ==
LOC: EC 12:53 → 3SCARD 15:15 → 6NMEDSUR 21:02
PROVIDERS: ADMIT Student in an Organized Health Care Education/Training Program; ATTEND Student in an Organized Health Care Education/Training Program
DX: I48.19 Other persistent atrial fibrillation (principal); D75.89 Other specified diseases of blood and blood-forming organs; R79.1 Abnormal coagulation profile; E43 Unspecified severe protein-calorie malnutrition; E03.9 Hypothyroidism, unspecified; E78.5 Hyperlipidemia, unspecified; E83.42 Hypomagnesemia; E87.6 Hypokalemia; M81.0 Age-related osteoporosis without current pathological fracture; M79.7 Fibromyalgia; G40.909 Epilepsy, unspecified, not intractable, without status epilepticus; I07.1 Rheumatic tricuspid insufficiency; I11.0 Hypertensive heart disease with heart failure; I25.10 Atherosclerotic heart disease of native coronary artery without angina pectoris; I25.2 Old myocardial infarction; I50.32 Chronic diastolic (congestive) heart failure; K21.9 Gastro-esophageal reflux disease without esophagitis; M19.90 Unspecified osteoarthritis, unspecified site; Z86.711 Personal history of pulmonary embolism; Z86.73 Personal history of transient ischemic attack (TIA), and cerebral infarction without residual deficits; Z91.81 History of falling; Z95.0 Presence of cardiac pacemaker; Z95.5 Presence of coronary angioplasty implant and graft; Z79.899 Other long term (current) drug therapy; Z79.890 Hormone replacement therapy; Z79.82 Long term (current) use of aspirin; Z79.1 Long term (current) use of non-steroidal anti-inflammatories (NSAID); Z68.1 Body mass index [BMI] 19.9 or less, adult; Z87.19 Personal history of other diseases of the digestive system; Z88.8 Allergy status to other drugs, medicaments and biological substances; Z88.2 Allergy status to sulfonamides
CPT/HCPCS: 96376 ×2; 96366 ×2; 96372; 96375 ×2; 96368; 96365; 99285; 36415; 93005; 85379; 84439; 80053; 80048; 84443; 83735 ×2; 84484; 85025; 85027; 85610; 85730; 71046; 71275; G0378 ×3; J2270 ×2; J2405; J1650; J1171; J3475; J3480; Q9967

== ENCOUNTER 2024-05-16 12:10 | Emergency (ER) | payer OTHER ==
[2024-05-16 12:18] VITALS: TEMP 99
--- NOTE | 2024-05-16 12:29 | ED ---
General Adult HPI - General Chief complaint: Fall Stated complaint: fall Time Seen by Provider: 05/16/24 12:12 Source: patient, EMS, RN notes reviewed, old records reviewed Mode of arrival: EMS Limitations: no limitations - History of Present Illness Initial comments: 78 yo female presenting status post mechanical fall. Patient fell backwards hitting the left upper ribs against a TV stand. There was no head injury. No head or neck pain. No extremity injury. No chest or abdominal pain. - Related Data Home Medications Medication Instructions Recorded Confirmed Metoprolol Tartrate [Lopressor] 50 mg PO DAILY 10/05/20 05/16/24 Pantoprazole [Protonix] 40 mg PO BID 12/27/21 05/16/24 Ondansetron [Zofran] 4 mg PO Q8H PRN 09/20/22 05/16/24 Aspirin EC [Ecotrin Low Dose] 81 mg PO DAILY 11/13/22 05/16/24 Butalb/Acetaminophen/Caffeine 1 cap PO BID PRN 01/10/23 05/16/24 [Fioricet 50-300-40 mg Capsule] Lidocaine 5% Patch [Lidoderm 5% 1 patch TRANSDERM BID 04/01/23 05/16/24 Patch] Buprenorphine [Buprenorphine 20 3 patch TRANSDERM WE 09/27/23 05/16/24 MCG/HR] Diclofenac Sodium Gel [Voltaren 1% 1 applic TOPICAL QID 09/27/23 05/16/24 Gel] Diphenox-Atrop 2.5-0.025 mg 1 tab PO QID PRN 09/27/23 05/16/24 [Lomotil] diphenhydrAMINE HCL [Benadryl] 25 mg PO HS 09/27/23 05/16/24 Acetaminophen [Tylenol Extra 500 - 1,000 mg PO Q6H PRN 01/25/24 05/16/24 Strength] Albuterol Inhaler [Ventolin Hfa 2 puff INHALATION RT-Q6H PRN 01/25/24 05/16/24 Inhaler] Benzonatate [Tessalon Perles] 100 mg PO TID PRN 01/25/24 05/16/24 Citalopram Hydrobromide [CeleXA] 40 mg PO DAILY 01/25/24 05/16/24 Dicyclomine [Bentyl] 10 mg PO TID PRN 01/25/24 05/16/24 Folic Acid 1 mg PO DAILY 01/25/24 05/16/24 Furosemide [Lasix] 40 mg PO BID@0700,1500 01/25/24 05/16/24 L.acidoph,Paracasei, B.lactis 1 cap PO DAILY 01/25/24 05/16/24 [Probiotic] Meloxicam [Mobic] 7.5 mg PO DAILY 01/25/24 05/16/24 Methylcellulose (with Sugar) 3 tsp PO BID PRN 01/25/24 05/16/24 [Citrucel Powder] Potassium Chloride Oral Liquid 40 meq PO TID 01/25/24 05/16/24 Triamcinolone 0.5% Cream [Kenalog 1 applic TOPICAL DAILY 01/25/24 05/16/24 0.5% Cream] witch Zoila [Tucks Medicated Pads] 1 pad TOPICAL DIRECTED PRN 01/25/24 05/16/24 Desloratadine [Clarinex] 5 mg PO DAILY 04/01/24 05/16/24 Levothyroxine Sodium [Synthroid] 112 mcg PO DAILY 04/01/24 05/16/24 Orphenadrine Citrate [Orphenadrine 100 mg PO BID 04/01/24 05/16/24 Citrate ER] ALPRAZolam [Xanax] 0.5 mg PO HS 05/16/24 05/16/24 Amiodarone [Cordarone] 200 mg PO TID 05/16/24 05/16/24 Melatonin 5 mg PO HS 05/16/24 05/16/24 Mexiletine [Mexitil] 150 mg PO DAILY 05/16/24 05/16/24 Mirtazapine 7.5 mg PO HS 05/16/24 05/16/24 Sodium Chloride [[place]] 1 spray EA NOSTRIL BID PRN 05/16/24 05/16/24 Previous Rx's Medication Instructions Recorded Diltiazem Oral [Cardizem*] 30 mg PO TID 30 Days #90 tab 04/02/24 Allergies Allergy/AdvReac Type Severity Reaction Status Date / Time adhesive Allergy RASH FROM Verified 05/16/24 14:17 EKG STICKERS apixaban [From Eliquis] Allergy Rash/Hives Verified 05/16/24 14:17 celecoxib [From Celebrex] Allergy Rash/Hives Verified 05/16/24 14:17 sertraline HCl [From Zoloft] Allergy Rash/Hives Verified 05/16/24 14:17 sulfamethoxazole Allergy Anaphylaxis Verified 05/16/24 14:17 [From Bactrim] trimethoprim [From Bactrim] Allergy Anaphylaxis Verified 05/16/24 14:17 cholestyramine AdvReac DIZZY/CONFU Verified 05/16/24 14:17 SED hydroxyzine [From Vistaril] AdvReac Nausea & Verified 05/16/24 14:17 Vomiting & Diarrhea Review of Systems ROS Statement: Those systems with pertinent positive or pertinent negative responses have been documented in the HPI. ROS Other: All systems not noted in ROS Statement are negative. Past Medical History Past Medical History: Atrial Fibrillation, Blood Disorder, Coronary Artery Disease (CAD), Chest Pain / Angina, Heart Failure, COPD, CVA/TIA, Diabetes Mellitus, Fibromyalgia, GERD/Reflux, GI Bleed, Hypertension, Myocardial Infarction (CO), Musculoskeletal Disorder, Osteoarthritis (OA), Renal Disease, Seizure Disorder, Thyroid Disorder Additional Past Medical History / Comment(s): Pacemaker for Syncope/Tachybrady Syndrome. Hx RHEUMATIC FEVER. Heart murmur, chronic back and bilateral shoulder pain. SEVERE OSTEOPOROSIS, Vertigo, DJD, GI ulcers, esophagitis/esophageal stricture, PROBLEMS WITH SWALLOWING, FALLS - loses balance "Cannot lie down for long without having back pain - Broke back " Left hip ORIF of trochanteric comminuted femur fracture in November 2021, stroke 2022, Rt. shoulder fracture 08/14, past hx. epilepsy-not currently taking any meds, kidney disease- Stage 2, type 2 diabetes-not taking anything for Last Myocardial Infarction Date:: 2002 History of Any Multi-Drug Resistant Organisms: None Reported Past Surgical History: Appendectomy, Cardiac Ablation, Cholecystectomy, Ear Surgery, Heart Catheterization, Hernia Repair, Hysterectomy, Orthopedic Surgery, Pacemaker, Tonsillectomy Additional Past Surgical History / Comment(s): ORIF LEFT LOWER ARM, numerous DILATATION OF ESOPHAGUS, biopsies were negative, colonoscopy, Pacemaker (ADAPTA) [facility] 07/07 [facility], bilateral stapedectomies(stainless steel in both ears), Hiatal Hernia repair, inguinal & femoral hernia repairs, "cement placed in back, due to broken back/pelvis". Left Femur Surgery 12/09/21. Watchman device 06/16 Past Anesthesia/Blood Transfusion Reactions: Family History of Problems w/ Anesthesia, Motion Sickness, Postoperative Nausea & Vomiting (PONV) Additional Past Anesthesia/Blood Transfusion Reaction / Comment(s): No problems with prior blood transfusion. BROTHER HAS PONV. Type of Cardiac Device: Permanent Pacemaker Device Placement Date:: 06/2016 Past Psychological History: Bipolar Smoking Status: Never smoker Past Alcohol Use History: None Reported Past Drug Use History: Marijuana - Past Family History Brother(s) Family Medical History: Cancer Additional Family Medical History / Comment(s): Throat cancer. Father Family Medical History: Pneumonia Additional Family Medical History / Comment(s): EMPHYSEMA. Mother Family Medical History: COPD, Rheumatoid Arthritis (RA) Additional Family Medical History / Comment(s): EMPHYSEMA. General Exam Limitations: no limitations General appearance: alert, in no apparent distress Head exam: Present: atraumatic, normocephalic Eye exam: Present: normal appearance, PERRL ENT exam: Present: normal exam Neck exam: Present: normal inspection. Absent: tenderness, meningismus Respiratory exam: Present: chest wall tenderness (Left mid to upper). Absent: respiratory distress, wheezes Cardiovascular Exam: Present: tachycardia, irregular rhythm GI/Abdominal exam: Present: soft. Absent: distended, tenderness, guarding Extremities exam: Present: pedal edema (worse On the right) Back exam: Absent: vertebral tenderness Neurological exam: Present: alert, oriented X3, CN II-XII intact. Absent: motor sensory deficit Skin exam: Present: warm, dry, intact. Absent: normal color, cyanosis, diaphoretic Course Vital Signs 05/16/24 05/16/24 05/16/24 12:12 13:15 14:00 Temperature 99.0 F Pulse Rate 131 H 130 H 116 H Respiratory 18 20 20 Rate Blood Pressure 132/90 116/88 132/83 O2 Sat by Pulse 95 94 L 98 Oximetry Medical Decision Making - Medical Decision Making Was pt. sent in by a medical professional or institution (, PA, APPLICATIONS SALES CONSULTANT, urgent care, hospital, or retirement...) When possible be specific @ -No Did you speak to anyone other than the patient for history (EMS, parent, family, police, friend...)? What history was obtained from this source @ -No Did you review nursing and triage notes (agree or disagree)? Why? @ -I reviewed and agree with nursing and triage notes Were old charts reviewed (outside hosp., previous admission, EMS record, old EKG, old radiological studies, urgent care reports/EKG's, retirement records)? Report findings @ -No old charts were reviewed Differential Diagnosis (chest pain, altered mental status, abdominal pain women, abdominal pain men, vaginal bleeding, weakness, fever, dyspnea, syncope, headache, dizziness, GI bleed, back pain, seizure, CVA, palpatations, mental health, musculoskeletal)? @ -Not applicable EKG interpreted by me (3pts min.). @ -Atrial fibrillation with RVR rate of 141, QRS duration 89, QTc [address] segment elevation. X-rays interpreted by me (1pt min.). @ -X-ray negative for displaced fracture, no pneumothorax visualized. CT interpreted by me (1pt min.). @ -None done U/S interpreted by me (1pt. min.). @Ultrasound of the right lower extremity negative for DVT What testing was considered but not performed or refused? (CT, X-rays, U/S, labs)? Why? @ -None What meds were considered but not given or refused? Why? @ -None Did you discuss the management of the patient with other professionals (professionals i.e. , PA, APPLICATIONS SALES CONSULTANT, lab, RT, psych nurse, social services counselor, garage laborer, teacher, chief technology officer, spring encaser)? Give summary @ -No Was smoking cessation discussed for >3mins.? @ -No Was critical care preformed (if so, how long)? @ -No Were there social determinants of health that impacted care today? How? (Homelessness, low income, unemployed, alcoholism, drug addiction, transportation, low edu. Level, literacy, decrease access to med. care, senior care, rehab)? @ -No Was there de-escalation of care discussed even if they declined (Discuss DNR or withdrawal of care, Hospice)? DNR status @ -No What co-morbidities impacted this encounter? (DM, HTN, Smoking, COPD, CAD, Cancer, CVA, ARF, Chemo, Hep., AIDS, mental health diagnosis, sleep apnea, morbid obesity)? @ -[Atrial fibrillation, scoliosis Was patient admitted / discharged? Hospital course, mention meds given and route, prescriptions, significant lab abnormalities, going to OR and other pertinent info. @ -78-year-old female with fall, left posterior upper chest pain. No significant ecchymosis or crepitus on exam. X-ray negative for displaced rib fracture. No pneumothorax seen on chest x-ray. Patient did have a swollen right lower extremity compared to the left which was evaluated by ultrasound and negative for DVT. She has negative troponin, mildly elevated BNP. Patient has history of atrial fibrillation and is initially as a rate of 130. This responds well to a Cardizem bolus and she remains in a rate controlled A-fib. She is stable for discharge at this time. Undiagnosed new problem with uncertain prognosis? @ -No Drug Therapy requiring intensive monitoring for toxicity (Heparin, Nitro, Insulin, Cardizem)? @ -No Were any procedures done? @ -No Diagnosis/symptom? @ -Fall, chest wall contusion Acute, or Chronic, or Acute on Chronic? @Acute Uncomplicated (without systemic symptoms) or Complicated (systemic symptoms)? @ -Default Side effects of treatment? @ -No Exacerbation, Progression, or Severe Exacerbation? @ -No Poses a threat to life or bodily function? How? (Chest pain, USA, CO, pneumonia, PE, COPD, DKA, ARF, appy, cholecystitis, CVA, Diverticulitis, Homicidal, Suicidal, threat to staff... and all critical care pts) @ -No - Lab Data Result diagrams: 05/16/24 12:28 05/16/24 12:28 Lab Results 05/16/24 05/16/24 05/16/24 Range/Units 12:28 12:28 12:28 WBC 11.6 H (3.8-10.6) k/uL RBC 4.07 (3.80-5.40) m/uL Hgb 13.3 (11.4-16.0) gm/dL Hct 41.7 (34.0-46.0) % MCV 102.7 H (80.0-100.0) fL MCH 32.7 (25.0-35.0) pg MCHC 31.9 (31.0-37.0) g/dL RDW 13.5 (11.5-15.5) % Plt Count 356 (150-450) k/uL MPV 7.8 Neutrophils % 77 % Lymphocytes % 10 % Monocytes % 4 % Eosinophils % 7 % Basophils % 1 % Neutrophils # 9.0 H (1.3-7.7) k/uL Lymphocytes # 1.1 (1.0-4.8) k/uL Monocytes # 0.5 (0-1.0) k/uL Eosinophils # 0.8 H (0-0.7) k/uL Basophils # 0.1 (0-0.2) k/uL Macrocytosis Slight PT 10.6 (10.0-12.5) sec INR 0.9 (<1.2) APTT 22.1 (22.0-30.0) sec Sodium 139 (137-145) mmol/L Potassium 3.3 L (3.5-5.1) mmol/L Chloride 96 L (98-107) mmol/L Carbon Dioxide 34 H (22-30) mmol/L Anion Gap 9 mmol/L BUN 38 H (7-17) mg/dL Creatinine 1.00 (0.52-1.04) mg/dL Est GFR (CKD-EPI)AfAm 64 (>60 ml/min/1.73 sqM) Est GFR (CKD-EPI)NonAf 55 (>60 ml/min/1.73 sqM) Glucose 119 H (74-99) mg/dL Calcium 10.1 (8.4-10.2) mg/dL Magnesium 2.0 (1.6-2.3) mg/dL Total Bilirubin 0.4 (0.2-1.3) mg/dL AST 32 (14-36) U/L ALT 27 (4-34) U/L Alkaline Phosphatase 138 H (38-126) U/L Troponin I (0.000-0.034) ng/mL NT-Pro-B Natriuret Pep 1110 pg/mL Total Protein 7.8 (6.3-8.2) g/dL Albumin 4.3 (3.5-5.0) g/dL 05/16/24 Range/Units 12:45 WBC (3.8-10.6) k/uL RBC (3.80-5.40) m/uL Hgb (11.4-16.0) gm/dL Hct (34.0-46.0) % MCV (80.0-100.0) fL MCH (25.0-35.0) pg MCHC (31.0-37.0) g/dL RDW (11.5-15.5) % Plt Count (150-450) k/uL MPV Neutrophils % % Lymphocytes % % Monocytes % % Eosinophils % % Basophils % % Neutrophils # (1.3-7.7) k/uL Lymphocytes # (1.0-4.8) k/uL Monocytes # (0-1.0) k/uL Eosinophils # (0-0.7) k/uL Basophils # (0-0.2) k/uL Macrocytosis PT (10.0-12.5) sec INR (<1.2) APTT (22.0-30.0) sec Sodium (137-145) mmol/L Potassium (3.5-5.1) mmol/L Chloride (98-107) mmol/L Carbon Dioxide (22-30) mmol/L Anion Gap mmol/L BUN (7-17) mg/dL Creatinine (0.52-1.04) mg/dL Est GFR (CKD-EPI)AfAm (>60 ml/min/1.73 sqM) Est GFR (CKD-EPI)NonAf (>60 ml/min/1.73 sqM) Glucose (74-99) mg/dL Calcium (8.4-10.2) mg/dL Magnesium (1.6-2.3) mg/dL Total Bilirubin (0.2-1.3) mg/dL AST (14-36) U/L ALT (4-34) U/L Alkaline Phosphatase (38-126) U/L Troponin I <0.012 (0.000-0.034) ng/mL NT-Pro-B Natriuret Pep pg/mL Total Protein (6.3-8.2) g/dL Albumin (3.5-5.0) g/dL Disposition Clinical Impression: Fall, Chest wall contusion Disposition: HOME SELF-CARE Condition: Fair Instructions (If sedation given, give patient instructions): Fall Prevention for Older Adults (ED) Is patient prescribed a controlled substance at d/c from ED?: No Referrals: Grant Mario MD [Primary Care Provider] - 1-2 days Time of Disposition: 14:50
[2024-05-16 12:53] LABS: Basophils # (A) 0.1 k/uL (0-0.2); Basophils % (A) 1 %; Eosinophils # (A) 0.8 k/uL (0-0.7); Eosinophils % (A) 7 %; HCT 41.7 % (34.0-46.0); HGB 13.3 gm/dL (11.4-16.0); Lymphocytes # (A) 1.1 k/uL (1.0-4.8); Lymphocytes % (A) 10 %; MCH 32.7 pg (25.0-35.0); MCHC 31.9 g/dL (31.0-37.0); MCV 102.7 fL (80.0-100.0); Macrocytosis Slight; Mean Platelet Volume 7.8; Monocytes # (A) 0.5 k/uL (0-1.0); Monocytes % (A) 4 %; Neutrophils % (A) 77 %; Platelet Count 356 k/uL (150-450); RBC 4.07 m/uL (3.80-5.40); RDW 13.5 % (11.5-15.5); WBC 11.6 k/uL (3.8-10.6)
[2024-05-16 13:02] LABS: INR 0.9 (<1.2); Partial Thromboplastin Time 22.1 sec (22.0-30.0); Prothrombin Time 10.6 sec (10.0-12.5)
[2024-05-16 13:07] LABS: ALT 27 U/L (4-34); AST 32 U/L (14-36); African American GFR (CKD) 64 (>60 ml/min/1.73 sqM); Albumin 4.3 g/dL (3.5-5.0); Alkaline Phosphatase 138 U/L (38-126); Anion Gap 9 mmol/L; Blood Urea Nitrogen 38 mg/dL (7-17); Calcium 10.1 mg/dL (8.4-10.2); Carbon Dioxide 34 mmol/L (22-30); Chloride 96 mmol/L (98-107); Glucose 119 mg/dL (74-99); Non-African American GFR(CKD) 55 (>60 ml/min/1.73 sqM); Potassium 3.3 mmol/L (3.5-5.1); Sodium 139 mmol/L (137-145); Total Bilirubin 0.4 mg/dL (0.2-1.3); Total Protein 7.8 g/dL (6.3-8.2)
[2024-05-16 13:16] VITALS: RESP 20
[2024-05-16 13:16] LABS: NT-Pro-B-Type Natriuretic Pept 1110 pg/mL
[2024-05-16] MEDS: DILTIAZEM DRIP BOLUS FROM BAG 1 MG SOLN IV ONE (13:16)
[2024-05-16] MEDS: DILTIAZEM 125 MG in SODIUM CHLORIDE 0.9% 100 ML IV SCH (13:16)
--- NOTE | 2024-05-16 13:26 | XR ---
EXAMINATION TYPE: XR ribs LT w pa chest xray DATE OF EXAM: 05/16/2024 1:17 PM COMPARISON: 04/01/2024 CLINICAL INDICATION: Female, 78 years old with history of fall/rib pain, pain TECHNIQUE: 2 view(s) obtained. Exam is supplemented with frontal chest FINDINGS: Pacemaker overlies the left apex limiting evaluation for small pneumothorax. No large pneumothorax is evident. Cardiomegaly is present. Pulmonary vasculature appears within normal limits. No displaced rib fractures identified. IMPRESSION: 1. No suspicious acute left rib fracture. [facility], , 05/16/2024 1:23 PM
--- NOTE | 2024-05-16 14:25 | US ---
EXAMINATION TYPE: US venous doppler duplex LE RT DATE OF EXAM: 05/16/2024 2:19 PM COMPARISON: US(05/16/2023) CLINICAL INDICATION: Female, 78 years old with history of swelling; , Pain TECHNIQUE: The lower extremity deep venous system is examined utilizing real time linear array sonog guillermina with graded compression, color doppler sonography, and spectral doppler. SIDE PERFORMED: Right FINDINGS: VESSELS IMAGED: Common Femoral Vein Deep Femoral Vein Greater Saphenous Vein * Femoral Vein Popliteal Vein Small Saphenous Vein * Proximal Calf Veins (* superficial vessels) Right Leg: Negative for DVT, Color Doppler imaging shows patency of the vessels. Spectral waveforms are within normal limits. IMPRESSION: 1. Right lower extremity ultrasound negative for deep venous thrombosis. [facility], , 05/16/2024 2:22 PM
[2024-05-16] MEDS: HYDROmorphone 1 MG/ML 1 ML SYRINGE IVP STA (14:39)
[2024-05-16] MEDS: HYDROmorphone 0.5 MG/0.5 ML SYRINGE IVP STA (15:12)
[2024-05-16 15:17] VITALS: PULSE 110
[2024-05-16 15:52] VITALS: BP 100/60
== END 2024-05-16 15:52 | disposition home or self-care (01) ==
LOC: EC 12:10
DX: S20.212A Contusion of left front wall of thorax, initial encounter (principal); I48.91 Unspecified atrial fibrillation; M41.9 Scoliosis, unspecified; Z88.2 Allergy status to sulfonamides; Z88.6 Allergy status to analgesic agent; Z88.9 Allergy status to unspecified drugs, medicaments and biological substances; Z91.09 Other allergy status, other than to drugs and biological substances; Z88.8 Allergy status to other drugs, medicaments and biological substances; W01.0XXA Fall on same level from slipping, tripping and stumbling without subsequent striking against object, initial encounter
CPT/HCPCS: 36415; 93005; 83880; 80053; 83735; 84484; 85025; 85610; 85730; 71101; 93971; 99285; 96365; 96375; J1171

== ENCOUNTER 2024-05-24 13:44 | Emergency (ER) | payer OTHER ==
--- NOTE | 2024-05-24 14:05 | ED ---
General Adult HPI - General Chief complaint: Fall Stated complaint: fall Time Seen by Provider: 05/24/24 13:50 Source: patient, EMS, RN notes reviewed, old records reviewed Mode of arrival: EMS - History of Present Illness Initial comments: This is a 78-year-old female who presents to the emergency department after she fell. Patient states she was trying to transfer to her wheelchair and her legs started to shake and she fell back and landed on the floor. Patient complains of thoracic spine and cervical spine pain. Patient denies hitting her head. Patient denies headache patient denies any lightheadedness or dizziness. Patient denies chest pain palpitations difficulty breathing shortness of breath. Patient Nuys any abdominal pain. Patient Nuys any extremity pain. - Related Data Home Medications Medication Instructions Recorded Confirmed Metoprolol Tartrate [Lopressor] 50 mg PO DAILY 10/05/20 05/16/24 Pantoprazole [Protonix] 40 mg PO BID 12/27/21 05/16/24 Ondansetron [Zofran] 4 mg PO Q8H PRN 09/20/22 05/16/24 Aspirin EC [Ecotrin Low Dose] 81 mg PO DAILY 11/13/22 05/16/24 Butalb/Acetaminophen/Caffeine 1 cap PO BID PRN 01/10/23 05/16/24 [Fioricet 50-300-40 mg Capsule] Lidocaine 5% Patch [Lidoderm 5% 1 patch TRANSDERM BID 04/01/23 05/16/24 Patch] Buprenorphine [Buprenorphine 20 3 patch TRANSDERM WE 09/27/23 05/16/24 MCG/HR] Diclofenac Sodium Gel [Voltaren 1% 1 applic TOPICAL QID 09/27/23 05/16/24 Gel] Diphenox-Atrop 2.5-0.025 mg 1 tab PO QID PRN 09/27/23 05/16/24 [Lomotil] diphenhydrAMINE HCL [Benadryl] 25 mg PO HS 09/27/23 05/16/24 Acetaminophen [Tylenol Extra 500 - 1,000 mg PO Q6H PRN 01/25/24 05/16/24 Strength] Albuterol Inhaler [Ventolin Hfa 2 puff INHALATION RT-Q6H PRN 01/25/24 05/16/24 Inhaler] Benzonatate [Tessalon Perles] 100 mg PO TID PRN 01/25/24 05/16/24 Citalopram Hydrobromide [CeleXA] 40 mg PO DAILY 01/25/24 05/16/24 Dicyclomine [Bentyl] 10 mg PO TID PRN 01/25/24 05/16/24 Folic Acid 1 mg PO DAILY 01/25/24 05/16/24 Furosemide [Lasix] 40 mg PO BID@0700,1500 01/25/24 05/16/24 L.acidoph,Paracasei, B.lactis 1 cap PO DAILY 01/25/24 05/16/24 [Probiotic] Meloxicam [Mobic] 7.5 mg PO DAILY 01/25/24 05/16/24 Methylcellulose (with Sugar) 3 tsp PO BID PRN 01/25/24 05/16/24 [Citrucel Powder] Potassium Chloride Oral Liquid 40 meq PO TID 01/25/24 05/16/24 Triamcinolone 0.5% Cream [Kenalog 1 applic TOPICAL DAILY 01/25/24 05/16/24 0.5% Cream] witch Zoila [Tucks Medicated Pads] 1 pad TOPICAL DIRECTED PRN 01/25/24 Desloratadine [Clarinex] 5 mg PO DAILY 04/01/24 05/16/24 Levothyroxine Sodium [Synthroid] 112 mcg PO DAILY 04/01/24 05/16/24 Orphenadrine Citrate [Orphenadrine 100 mg PO BID 04/01/24 05/16/24 Citrate ER] ALPRAZolam [Xanax] 0.5 mg PO HS 05/16/24 05/16/24 Amiodarone [Cordarone] 200 mg PO TID 05/16/24 05/16/24 Melatonin 5 mg PO HS 05/16/24 05/16/24 Mexiletine [Mexitil] 150 mg PO DAILY 05/16/24 05/16/24 Mirtazapine 7.5 mg PO HS 05/16/24 05/16/24 Sodium Chloride [Placer [place]] 1 spray EA NOSTRIL BID PRN 05/16/24 05/16/24 Previous Rx's Medication Instructions Recorded Diltiazem Oral [Cardizem*] 30 mg PO TID 30 Days #90 tab 04/02/24 Allergies Allergy/AdvReac Type Severity Reaction Status Date / Time adhesive Allergy RASH FROM Verified 05/24/24 13:49 EKG STICKERS apixaban [From Eliquis] Allergy Rash/Hives Verified 05/24/24 13:49 celecoxib [From Celebrex] Allergy Rash/Hives Verified 05/24/24 13:49 sertraline HCl [From Zoloft] Allergy Rash/Hives Verified 05/24/24 13:49 sulfamethoxazole Allergy Anaphylaxis Verified 05/24/24 13:49 [From Bactrim] trimethoprim [From Bactrim] Allergy Anaphylaxis Verified 05/24/24 13:49 cholestyramine AdvReac DIZZY/CONFU Verified 05/24/24 13:49 SED hydroxyzine [From Vistaril] AdvReac Nausea & Verified 05/24/24 13:49 Vomiting & Diarrhea Review of Systems ROS Statement: Those systems with pertinent positive or pertinent negative responses have been documented in the HPI. ROS Other: All systems not noted in ROS Statement are negative. Past Medical History Past Medical History: Atrial Fibrillation, Blood Disorder, Coronary Artery Disease (CAD), Chest Pain / Angina, Heart Failure, COPD, CVA/TIA, Diabetes Mellitus, Fibromyalgia, GERD/Reflux, GI Bleed, Hypertension, Myocardial Infarction ([place]), Musculoskeletal Disorder, Osteoarthritis (OA), Renal Disease, Seizure Disorder, Thyroid Disorder Additional Past Medical History / Comment(s): Pacemaker for Syncope/Tachybrady Syndrome. Hx RHEUMATIC FEVER. Heart murmur, chronic back and bilateral shoulder pain. SEVERE OSTEOPOROSIS, Vertigo, DJD, GI ulcers, esophagitis/esophageal stricture, PROBLEMS WITH SWALLOWING, FALLS - loses balance "Cannot lie down for long without having back pain - Broke back " Left hip ORIF of trochanteric comminuted femur fracture in November 2021, stroke 2022, Rt. shoulder fracture 08/14, past hx. epilepsy-not currently taking any meds, kidney disease- Stage 2, type 2 diabetes-not taking anything for Last Myocardial Infarction Date:: 2002 History of Any Multi-Drug Resistant Organisms: None Reported Past Surgical History: Appendectomy, Cardiac Ablation, Cholecystectomy, Ear Surgery, Heart Catheterization, Hernia Repair, Hysterectomy, Orthopedic Surgery, Pacemaker, Tonsillectomy Additional Past Surgical History / Comment(s): ORIF LEFT LOWER ARM, numerous DILATATION OF ESOPHAGUS, biopsies were negative, colonoscopy, Pacemaker (ADAPTA) placed 07/07 at [facility], bilateral stapedectomies(stainless steel in both ears), Hiatal Hernia repair, inguinal & femoral hernia repairs, "cement placed in back, due to broken back/pelvis". Left Femur Surgery 12/09/21. Watchman device 06/16 Past Anesthesia/Blood Transfusion Reactions: Family History of Problems w/ Anesthesia, Motion Sickness, Postoperative Nausea & Vomiting (PONV) Additional Past Anesthesia/Blood Transfusion Reaction / Comment(s): No problems with prior blood transfusion. BROTHER HAS PONV. Type of Cardiac Device: Permanent Pacemaker Device Placement Date:: 06/2016 Past Psychological History: Bipolar Smoking Status: Never smoker Past Alcohol Use History: None Reported Past Drug Use History: Marijuana - Past Family History Brother(s) Family Medical History: Cancer Additional Family Medical History / Comment(s): Throat cancer. Father Family Medical History: Pneumonia Additional Family Medical History / Comment(s): EMPHYSEMA. Mother Family Medical History: COPD, Rheumatoid Arthritis (RA) Additional Family Medical History / Comment(s): EMPHYSEMA. General Exam - General Exam Comments Initial Comments: GENERAL: Patient is well-developed and well-nourished. Patient is nontoxic and well- hydrated and is in mild distress. ENT: Neck is soft and supple. No significant lymphadenopathy is noted. Oropharynx is clear. Moist mucous membranes. Neck has full range of motion without eliciting any pain. EYES: The sclera were anicteric and conjunctiva were pink and moist. Extraocular movements were intact and pupils were equal round and reactive to light. Eyelids were unremarkable. PULMONARY: Unlabored respirations. Good breath sounds bilaterally. No audible rales rhonchi or wheezing was noted. CARDIOVASCULAR: Patient's heart rate is irregular and at about 120 bpm ABDOMEN: Soft and nontender with normal bowel sounds. SKIN: Skin is clear with no lesions or rashes and otherwise unremarkable. NEUROLOGIC: Patient is alert and oriented x3. Cranial nerves II through XII are grossly intact. Motor and sensory are also intact. Normal speech, volume and content. Symmetrical smile. MUSCULOSKELETAL: Normal extremities with adequate strength and full range of motion. Patient has some tenderness in the mid thoracic region as well as the C7 C6 region of the spine LYMPHATICS: No significant lymphadenopathy is noted PSYCHIATRIC: Normal psychiatric evaluation. Course Vital Signs 05/24/24 05/24/24 05/24/24 13:49 13:53 14:34 Temperature 98.0 F Pulse Rate 129 H 77 Respiratory 14 20 Rate Blood Pressure 154/98 127/85 O2 Sat by Pulse 98 94 L Oximetry Medical Decision Making - Medical Decision Making EKG is interpreted by myself. EKG shows atrial fibrillation with rapid ventricular response at 126 bpm QRS 100 QT interval is 250 QTc is 325. Patient's EKG shows no ST segment elevation or depression A repeat EKG was done because patient's heart rate went from 120s down to 70s and I interpreted this EKG. EKG showed a sinus rhythm at 74 bpm MD interval 167 QRS is 89 QT interval 325 QTc is 352. Patient's EKG shows no ST segment ovation or depression Was pt. sent in by a medical professional or institution (, PA, TASSEL MAKER, urgent care, hospital, or longterm...) When possible be specific @ -No Did you speak to anyone other than the patient for history (EMS, parent, family, police, friend...)? What history was obtained from this source @ -No Did you review nursing and triage notes (agree or disagree)? Why? @ -I reviewed and agree with nursing and triage notes Were old charts reviewed (outside hosp., previous admission, EMS record, old EKG, old radiological studies, urgent care reports/EKG's, longterm records)? Report findings @ -No old charts were reviewed Differential Diagnosis? @ -Differential Musculoskeletal Muscular strain, contusion, ligament sprain, fracture, arthritis, septic arthritis, bursitis, cellulitis, muscle spasm, nerve compression, DVT, arterial occlusion, herpes zoster, electrolyte abnormality, tumor.... This is not meant to be in all inclusive list EKG interpreted by me (3pts min.). @ -As above X-rays interpreted by me (1pt min.). @ -Chest x-ray shows no acute normality CT interpreted by me (1pt min.). @ -C-spine and thoracic spine CAT scan showed no acute abnormality U/S interpreted by me (1pt. min.). @ -None done What testing was considered but not performed or refused? (CT, X-rays, U/S, labs)? Why? @ -None What meds were considered but not given or refused? Why? @ -None Did you discuss the management of the patient with other professionals (professionals i.e. DrMarquise, PA, TASSEL MAKER, lab, RT, psych nurse, social studies department chair, funeral counselor, teacher, executive officer special warfare team, rifle case repairer)? Give summary @ -No Was smoking cessation discussed for >3mins.? @ -No Was critical care preformed (if so, how long)? @ -No Were there social determinants of health that impacted care today? How? (Homelessness, low income, unemployed, alcoholism, drug addiction, transportation, low edu. Level, literacy, decrease access to med. care, [place] [facility], rehab)? @ -No Was there de-escalation of care discussed even if they declined (Discuss DNR or withdrawal of care, Hospice)? DNR status @ -No What co-morbidities impacted this encounter? (DM, HTN, Smoking, COPD, CAD, Cancer, CVA, ARF, Chemo, Hep., AIDS, mental health diagnosis, sleep apnea, morbid obesity)? @ -None Was patient admitted / discharged? Hospital course, mention meds given and route, prescriptions, significant lab abnormalities, going to OR and other pertinent info. @ -Patient was given Toradol for the pain and it helped her considerably. Patient's potassium was 2.9 so she was given 40 mill equivalents of potassium h ere and she was told to take her potassium twice a day for 5 days. Undiagnosed new problem with uncertain prognosis? @ -No Drug Therapy requiring intensive monitoring for toxicity (Heparin, Nitro, Ins ulin, Cardizem)? @ -No Were any procedures done? @ -No Diagnosis/symptom? @ -Hypokalemia Acute, or Chronic, or Acute on Chronic? @ -Acute Uncomplicated (without systemic symptoms) or Complicated (systemic symptoms)? @ -Complicated Side effects of treatment? @ -No Exacerbation, Progression, or Severe Exacerbation? @ -No Poses a threat to life or bodily function? How? (Chest pain, [place], [place], pneumonia, PE, COPD, DKA, ARF, appy, cholecystitis, CVA, Diverticulitis, Homicidal, Suicidal, threat to staff... and all critical care pts) @ -No Diagnosis/symptom? @ -Back contusion Acute, or Chronic, or Acute on Chronic? @ -Acute Uncomplicated (without systemic symptoms) or Complicated (systemic symptoms)? @ -Uncomplicated Side effects of treatment? @ -None Exacerbation, Progression, or Severe Exacerbation] @ -No Poses a threat to life or bodily function? @ -No Diagnosis/symptom? @ -Fall Acute, or Chronic, or Acute on Chronic? @ -Acute Uncomplicated (without systemic symptoms) or Complicated (systemic symptoms)? @ -Uncomplicated Side effects of treatment? @ -None Exacerbation, Progression, or Severe Exacerbation] @ -No Poses a threat to life or bodily function? @ -No - Lab Data Result diagrams: 05/24/24 14:00 05/24/24 14:00 Lab Results 05/24/24 05/24/24 05/24/24 Range/Units 14:00 14:00 14:00 WBC 13.6 H (3.8-10.6) k/uL RBC 4.16 (3.80-5.40) m/uL Hgb 14.0 (11.4-16.0) gm/dL Hct 42.6 (34.0-46.0) % MCV 102.5 H (80.0-100.0) fL MCH 33.6 (25.0-35.0) pg MCHC 32.8 (31.0-37.0) g/dL RDW 13.2 (11.5-15.5) % Plt Count 300 (150-450) k/uL MPV 7.4 Neutrophils % 92 % Lymphocytes % 4 % Monocytes % 2 % Eosinophils % 2 % Basophils % 0 % Neutrophils # 12.4 H (1.3-7.7) k/uL Lymphocytes # 0.5 L (1.0-4.8) k/uL Monocytes # 0.3 (0-1.0) k/uL Eosinophils # 0.2 (0-0.7) k/uL Basophils # 0.0 (0-0.2) k/uL Macrocytosis Slight PT 12.2 (10.0-12.5) sec INR 1.1 (<1.2) APTT 21.8 L (22.0-30.0) sec Sodium 135 L (137-145) mmol/L Potassium 2.9 L (3.5-5.1) mmol/L Chloride 95 L (98-107) mmol/L Carbon Dioxide 28 (22-30) mmol/L Anion Gap 12 mmol/L BUN 21 H (7-17) mg/dL Creatinine 1.01 (0.52-1.04) mg/dL Est GFR (CKD-EPI)AfAm 63 (>60 ml/min/1.73 sqM) Est GFR (CKD-EPI)NonAf 54 (>60 ml/min/1.73 sqM) Glucose 121 H (74-99) mg/dL Calcium 8.8 (8.4-10.2) mg/dL Magnesium 1.8 (1.6-2.3) mg/dL Total Bilirubin 0.5 (0.2-1.3) mg/dL AST 25 (14-36) U/L ALT 15 (4-34) U/L Alkaline Phosphatase 150 H (38-126) U/L Troponin I (0.000-0.034) ng/mL Total Protein 6.8 (6.3-8.2) g/dL Albumin 3.8 (3.5-5.0) g/dL 05/24/24 Range/Units 14:00 WBC (3.8-10.6) k/uL RBC (3.80-5.40) m/uL Hgb (11.4-16.0) gm/dL Hct (34.0-46.0) % MCV (80.0-100.0) fL MCH (25.0-35.0) pg MCHC (31.0-37.0) g/dL RDW (11.5-15.5) % Plt Count (150-450) k/uL MPV Neutrophils % % Lymphocytes % % Monocytes % % Eosinophils % % Basophils % % Neutrophils # (1.3-7.7) k/uL Lymphocytes # (1.0-4.8) k/uL Monocytes # (0-1.0) k/uL Eosinophils # (0-0.7) k/uL Basophils # (0-0.2) k/uL Macrocytosis PT (10.0-12.5) sec INR (<1.2) APTT (22.0-30.0) sec Sodium (137-145) mmol/L Potassium (3.5-5.1) mmol/L Chloride (98-107) mmol/L Carbon Dioxide (22-30) mmol/L Anion Gap mmol/L BUN (7-17) mg/dL Creatinine (0.52-1.04) mg/dL Est GFR (CKD-EPI)AfAm (>60 ml/min/1.73 sqM) Est GFR (CKD-EPI)NonAf (>60 ml/min/1.73 sqM) Glucose (74-99) mg/dL Calcium (8.4-10.2) mg/dL Magnesium (1.6-2.3) mg/dL Total Bilirubin (0.2-1.3) mg/dL AST (14-36) U/L ALT (4-34) U/L Alkaline Phosphatase (38-126) U/L Troponin I <0.012 (0.000-0.034) ng/mL Total Protein (6.3-8.2) g/dL Albumin (3.5-5.0) g/dL Disposition Clinical Impression: Hypokalemia, Fall, Back contusion Disposition: HOME SELF-CARE Condition: Good Instructions (If sedation given, give patient instructions): Fall Prevention for Older Adults (ED), Hypokalemia (ED) Additional Instructions: Patient should take her potassium twice a day for the next 5 days Patient should follow-up with primary medical care doctor to follow-up on the low potassium Is patient prescribed a controlled substance at d/c from ED?: No Referrals: Grant Mario MD [Primary Care Provider] - 1-2 days Time of Disposition: 14:51
[2024-05-24 14:07] LABS: Basophils % (A) 0 %; Eosinophils # (A) 0.2 k/uL (0-0.7); Eosinophils % (A) 2 %; HCT 42.6 % (34.0-46.0); Lymphocytes # (A) 0.5 k/uL (1.0-4.8); Lymphocytes % (A) 4 %; MCH 33.6 pg (25.0-35.0); MCHC 32.8 g/dL (31.0-37.0); MCV 102.5 fL (80.0-100.0); Macrocytosis Slight; Mean Platelet Volume 7.4; Monocytes # (A) 0.3 k/uL (0-1.0); Monocytes % (A) 2 %; Neutrophils # (A) 12.4 k/uL (1.3-7.7); Neutrophils % (A) 92 %; Platelet Count 300 k/uL (150-450); RBC 4.16 m/uL (3.80-5.40); RDW 13.2 % (11.5-15.5); WBC 13.6 k/uL (3.8-10.6)
[2024-05-24] MEDS: KETOROLAC 15 MG/ML 1 ML VIAL IVP STA (14:12)
[2024-05-24 14:21] LABS: ALT 15 U/L (4-34); AST 25 U/L (14-36); African American GFR (CKD) 63 (>60 ml/min/1.73 sqM); Albumin 3.8 g/dL (3.5-5.0); Alkaline Phosphatase 150 U/L (38-126); Anion Gap 12 mmol/L; Blood Urea Nitrogen 21 mg/dL (7-17); Calcium 8.8 mg/dL (8.4-10.2); Carbon Dioxide 28 mmol/L (22-30); Chloride 95 mmol/L (98-107); Glucose 121 mg/dL (74-99); Magnesium 1.8 mg/dL (1.6-2.3); Non-African American GFR(CKD) 54 (>60 ml/min/1.73 sqM); Potassium 2.9 mmol/L (3.5-5.1); Sodium 135 mmol/L (137-145); Total Bilirubin 0.5 mg/dL (0.2-1.3); Total Protein 6.8 g/dL (6.3-8.2)
[2024-05-24 14:22] LABS: INR 1.1 (<1.2); Prothrombin Time 12.2 sec (10.0-12.5)
[2024-05-24 14:30] LABS: Partial Thromboplastin Time 21.8 sec (22.0-30.0)
[2024-05-24] MEDS: DILTIAZEM 5 MG/ML 5 ML VIAL IVP STA (14:34)
[2024-05-24] MEDS ORDERED: POTASSIUM CHLORIDE ER 20 MEQ TAB.ER PO STA (14:35)
--- NOTE | 2024-05-24 14:42 | XR ---
EXAMINATION TYPE: XR chest 2V DATE OF EXAM: 05/24/2024 2:28 PM COMPARISON: Previous radiographs, most recently dated 05/16/2024. CLINICAL INDICATION: Female, 78 years old with history of dysrhythmia; [facility] TECHNIQUE: XR chest 2V Frontal and lateral views of the chest. FINDINGS: Lungs/Pleura: Lungs are hyperinflated bilaterally with coarsening of the interstitial markings. No ac va focal consolidation. Linear scarring/atelectasis in the retrocardiac region. Pulmonary vascularity: Unremarkable. Heart/mediastinum: Cardiomegaly. Left chest wall cardiac pacemaker device with leads overlying the ri ght atrium and right ventricle. Musculoskeletal: No acute osseous pathology. Chronic multilevel thoracic spine vertebral body danica shira deformities and decreased osseous mineralization. Previous vertebral augmentation procedure also noted. Other findings: None IMPRESSION: No acute cardiopulmonary disease/process. [facility], , 05/24/2024 2:40 PM
--- NOTE | 2024-05-24 14:49 | CT ---
EXAMINATION TYPE: CT cervical spine wo con DATE OF EXAM: 05/24/2024 2:34 PM COMPARISON: None. CLINICAL INDICATION: Female, 78 years old with history of Fall; Chronic neck and mid back pain. TECHNIQUE: Axial CT images from the skull base to the inferior aspect of T2 we obtained without intra venous contrast. Coronal and sagittal reformatted images were also reviewed. CT DLP: 620.9 mGycm, Automated exposure control for dose reduction was used. FINDINGS: Fracture: None. Osseous structures: Unremarkable Vertebral alignment: Straightening of the normal cervical spine lordotic curvature. Minimal anterolis thesis of C3 on C4 and mild anterolisthesis of C4 on C5. Spinal canal/Neural Foramina: Multilevel facet arthropathy and uncovertebral hypertrophy in combinati on with posterior disc osteophyte complexes cause there are degrees of spinal canal and neural forami nal stenosis. Findings are most pronounced at C5-C6 and C6-C7. Overall, evaluation of the spinal tamika l limited due to streak artifact. Neck soft tissues: Prevertebral soft tissues are within normal limits. Nonspecific asymmetric indeter minate soft tissue prominence in the right neck (series 67 image 51) is similar to prior study from 2 017. Other: The airway is patent. The lung apices are clear. IMPRESSION: 1. No acute fracture or traumatic subluxation. 2. Multilevel cervical spine degenerative changes as above. [facility], , 05/24/2024 2:47 PM
--- NOTE | 2024-05-24 14:58 | CT ---
EXAMINATION TYPE: CT thoracic spine wo con DATE OF EXAM: 05/24/2024 2:34 PM COMPARISON: Previous CT chest study 04/02/2024.. CLINICAL INDICATION: Female, 78 years old with history of Fall; [facility], Chronic neck and mid back pain. TECHNIQUE: Axial images of the thoracic spine were obtained without contrast. Coronal and sagittal re formats were performed. 3-D reformats of the bones were created on a separate workstation and submitt ed for review. CT DLP: 620.9 mGycm, Automated exposure control for dose reduction was used. FINDINGS: Old bilateral rib fracture deformities, similar to prior study 04/02/2024. No definite acute displace d rib fracture. Osseous structures diffusely demineralized. Moderate to severe chronic compression deformity of the T 8 vertebral body status post previous vertebral augmentation procedure. Moderate compression deformit y of the T7 vertebral body, similar to prior study. Chronic moderate to severe compression deformity of the T6 vertebral body with associated sclerotic changes multilevel thoracic spine degenerative derrick nges with levoconvex curvature centered in the midthoracic spine. Imaging through the lungs demonstrates no acute focal consolidation. No pneumothorax. Cardiomegaly. L eft chest wall cardiac pacemaker device. Left atrial appendage occlusion device. And mild compression deformity of the T5 vertebral body. Severe kyphosis of the cervicothoracic spine. Multilevel interve rtebral disc space loss and facet arthropathy. IMPRESSION: 1. No acute fracture or traumatic subluxation of the thoracic spine. 2. Multilevel thoracic spine chronic vertebral body compression fractures, similar to prior study status post prior augmentation procedure at T8. 3. Old bilateral rib fracture deformities. [facility], , 05/24/2024 2:56 PM
[2024-05-24 15:09] VITALS: RESP 14
[2024-05-24] MEDS: POTASSIUM BICARBONATE/CIT AC 20 MEQ TABLET.EFF PO STA (15:26)
[2024-05-24 16:20] VITALS: BP 125/69; PULSE 75; TEMP 98.1
[2024-05-24] MEDS: ACETAMINOPHEN IV (For NPO) 700 MG in EMPTY BAG 1 BAG IVPB STA (16:41)
[2024-05-24] MEDS: ACETAMINOPHEN TAB 325 MG TAB PO STA (16:45)
== END 2024-05-24 17:26 | disposition home or self-care (01) ==
LOC: EC 13:44
DX: S20.229A Contusion of unspecified back wall of thorax, initial encounter (principal); E87.6 Hypokalemia; Z88.1 Allergy status to other antibiotic agents; Z88.2 Allergy status to sulfonamides; Z88.6 Allergy status to analgesic agent; Z88.8 Allergy status to other drugs, medicaments and biological substances; W18.39XA Other fall on same level, initial encounter
CPT/HCPCS: 36415; 93005; 80053; 83735; 84484; 85025; 85610; 85730; 71046; 72128; 72125; 99285; 96374; 96375; J0131; J1885

== ENCOUNTER 2024-07-11 13:24 | Emergency (ER) | payer OTHER ==
--- NOTE | 2024-07-11 14:34 | ED ---
Back Pain HPI - General Chief Complaint: Back Pain/Injury Stated Complaint: Fall-Back/ R shoulder pain Time Seen by Provider: 07/11/24 13:40 Source: patient, EMS, RN notes reviewed Limitations: no limitations - History of Present Illness Initial Comments: This is a 78-year-old female presenting to the emergency department via EMS for complaint of a mechanical fall. Patient states that she was using her walker at home when her legs gave out falling backwards onto her back. Patient denies presyncopal symptoms prior to the fall. She denies hitting her head or loss of consciousness. Is complaining of pain to the mid back in addition to right shoulder pain. Currently is denying headaches, dizziness, chest pain or difficulty breathing. She states that she fractured her right shoulder 5 years ago and has chronic pain due to this. No other acute complaints at this time. - Related Data Home Medications Medication Instructions Recorded Confirmed Metoprolol Tartrate [Lopressor] 50 mg PO DAILY 10/05/20 05/28/24 Pantoprazole [Protonix] 40 mg PO BID 12/27/21 05/28/24 Ondansetron [Zofran] 4 mg PO Q8H PRN 09/20/22 05/28/24 Aspirin EC [Ecotrin Low Dose] 81 mg PO DAILY 11/13/22 05/28/24 Butalb/Acetaminophen/Caffeine 1 cap PO BID PRN 01/10/23 05/28/24 [Fioricet 50-300-40 mg Capsule] Lidocaine 5% Patch [Lidoderm 5% 1 patch TRANSDERM BID 04/01/23 05/26/24 Patch] Buprenorphine [Buprenorphine 20 3 patch TRANSDERM WE 09/27/23 05/26/24 MCG/HR] diphenhydrAMINE HCL [Benadryl] 25 mg PO HS 09/27/23 05/28/24 Acetaminophen [Tylenol Extra 500 - 1,000 mg PO Q6H PRN 01/25/24 05/28/24 Strength] Albuterol Inhaler [Ventolin Hfa 2 puff INHALATION RT-Q6H PRN 01/25/24 05/28/24 Inhaler] Benzonatate [Tessalon Perles] 100 mg PO TID PRN 01/25/24 05/28/24 Citalopram Hydrobromide [CeleXA] 40 mg PO DAILY 01/25/24 05/28/24 Dicyclomine [Bentyl] 10 mg PO TID PRN 01/25/24 05/28/24 Folic Acid 1 mg PO DAILY 01/25/24 05/28/24 Furosemide [Lasix] 40 mg PO BID@0700,1500 01/25/24 05/28/24 L.acidoph,Paracasei, B.lactis 1 cap PO DAILY 01/25/24 05/28/24 [Probiotic] Meloxicam [Mobic] 7.5 mg PO DAILY 01/25/24 05/28/24 Methylcellulose (with Sugar) 3 tsp PO BID PRN 01/25/24 05/26/24 [Citrucel Powder] Potassium Chloride Oral Liquid 40 meq PO TID 01/25/24 05/28/24 Triamcinolone 0.5% Cream [Kenalog 1 applic TOPICAL DAILY 01/25/24 05/28/24 0.5% Cream] witch Zoila [Tucks Medicated Pads] 1 pad TOPICAL DIRECTED PRN 01/25/24 05/28/24 Levothyroxine Sodium [Synthroid] 112 mcg PO DAILY 04/01/24 05/28/24 Orphenadrine Citrate [Orphenadrine 100 mg PO BID 04/01/24 05/28/24 Citrate ER] ALPRAZolam [Xanax] 0.5 mg PO HS 05/16/24 05/26/24 Amiodarone [Cordarone] 200 mg PO TID 05/16/24 05/28/24 Melatonin 5 mg PO HS 05/16/24 05/28/24 Mexiletine [Mexitil] 150 mg PO DAILY 05/16/24 05/26/24 Mirtazapine 7.5 mg PO HS 05/16/24 05/28/24 Sodium Chloride [Taliaferro [place]] 1 spray EA NOSTRIL BID PRN 05/16/24 05/28/24 Cholestyramine/Aspartame [Questran 0 gm PO QID PRN 05/26/24 05/26/24 Light Powder] Desloratadine [Clarinex] 5 mg PO DAILY 05/26/24 05/26/24 Diclofenac Sodium Gel [Voltaren 1% 4 gm TOPICAL QID 05/26/24 05/28/24 Gel] Previous Rx's Medication Instructions Recorded Diltiazem Oral [Cardizem*] 30 mg PO TID 30 Days #90 tab 04/02/24 Ibuprofen [Motrin] 600 mg PO Q8HR PRN #30 tab 07/11/24 Allergies Allergy/AdvReac Type Severity Reaction Status Date / Time adhesive Allergy RASH FROM Verified 05/28/24 10:22 EKG STICKERS apixaban [From Eliquis] Allergy Rash/Hives Verified 05/28/24 10:22 celecoxib [From Celebrex] Allergy Rash/Hives Verified 05/28/24 10:22 sertraline HCl [From Zoloft] Allergy Rash/Hives Verified 05/28/24 10:22 sulfamethoxazole Allergy Anaphylaxis Verified 05/28/24 10:22 [From Bactrim] trimethoprim [From Bactrim] Allergy Anaphylaxis Verified 05/28/24 10:22 hydroxyzine [From Vistaril] AdvReac Nausea & Verified 05/28/24 10:22 Vomiting & Diarrhea Review of Systems ROS Statement: Those systems with pertinent positive or pertinent negative responses have been documented in the HPI. ROS Other: All systems not noted in ROS Statement are negative. Past Medical History Past Medical History: Atrial Fibrillation, Blood Disorder, Coronary Artery Disease (CAD), Chest Pain / Angina, Heart Failure, COPD, CVA/TIA, Diabetes Mellitus, Fibromyalgia, GERD/Reflux, GI Bleed, Hypertension, Myocardial Infarction (NE), Musculoskeletal Disorder, Osteoarthritis (OA), Renal Disease, Seizure Disorder, Thyroid Disorder Additional Past Medical History / Comment(s): Pacemaker for Syncope/Tachybrady Syndrome. Hx RHEUMATIC FEVER. Heart murmur, chronic back and bilateral shoulder pain. SEVERE OSTEOPOROSIS, Vertigo, DJD, GI ulcers, esophagitis/esophageal stricture, PROBLEMS WITH SWALLOWING, FALLS - loses balance "Cannot lie down for long without having back pain - Broke back 2012,2017" Left hip ORIF of tr ochanteric comminuted femur fracture in November 2021, stroke 2022, Rt. shoulder fracture 08/14, past hx. epilepsy-not currently taking any meds, kidney disease- Stage 2, type 2 diabetes-not taking anything for Last Myocardial Infarction Date:: 2002 History of Any Multi-Drug Resistant Organisms: None Reported Past Surgical History: Appendectomy, Cardiac Ablation, Cholecystectomy, Ear Surgery, Heart Catheterization, Hernia Repair, Hysterectomy, Orthopedic Surgery, Pacemaker, Tonsillectomy Additional Past Surgical History / Comment(s): ORIF LEFT LOWER ARM, numerous DILATATION OF ESOPHAGUS, biopsies were negative, colonoscopy, Pacemaker (ADAPTA) placed 07/07 at [facility], bilateral stapedectomies(stainless steel in both ears), Hiatal Hernia repair, inguinal & femoral hernia repairs, "cement placed in back, due to broken back/pelvis". Left Femur Surgery 12/09/21. Watchman device 06/16 Past Anesthesia/Blood Transfusion Reactions: Family History of Problems w/ Anesthesia, Motion Sickness, Postoperative Nausea & Vomiting (PONV) Additional Past Anesthesia/Blood Transfusion Reaction / Comment(s): No problems with prior blood transfusion. BROTHER HAS PONV. Type of Cardiac Device: Permanent Pacemaker Device Placement Date:: 06/2016 Past Psychological History: Bipolar Smoking Status: Never smoker Past Alcohol Use History: None Reported Past Drug Use History: None Reported - Past Family History Brother(s) Family Medical History: Cancer Additional Family Medical History / Comment(s): Throat cancer. Father Family Medical History: Pneumonia Additional Family Medical History / Comment(s): EMPHYSEMA. Mother Family Medical History: COPD, Rheumatoid Arthritis (RA) Additional Family Medical History / Comment(s): EMPHYSEMA. General Exam - General Exam Comments Initial Comments: Visual Physical Exam Vital signs reviewed General: Well-appearing, nontoxic, no acute distress. Head: Normocephalic, atraumatic Eyes: PERRLA, EOMI ENT: Airway patent Chest: Nonlabored breathing Skin: No visual rash, normal skin tone Neuro: Alert and oriented 3 Musculoskeletal: No gross abnormalities Limitations: no limitations General appearance: alert, in no apparent distress ENT exam: Present: normal exam, mucous membranes moist Neck exam: Present: normal inspection. Absent: tenderness, meningismus, lymphadenopathy Respiratory exam: Present: normal lung sounds bilaterally. Absent: respiratory distress, wheezes, rales, rhonchi, stridor Cardiovascular Exam: Present: regular rate, normal rhythm, normal heart sounds. Absent: systolic murmur, diastolic murmur, rubs, gallop, clicks GI/Abdominal exam: Present: soft, normal bowel sounds. Absent: distended, tenderness, guarding, rebound, rigid Right Shoulder Exam: Present: tenderness. Absent: full ROM, swelling, deformity, crepitus, dislocation Neuro motor exam: Present: wrist extension intact Vascular: Present: radial pulse (2+). Absent: vascular compromise Back exam: Present: normal inspection, tenderness (mid thoracic spine with palpation and on ROM, noted severe kyphosis). Absent: CVA tenderness (R), CVA tenderness (L) Neurological exam: Present: alert, oriented X3, CN II-XII intact Course Vital Signs 07/11/24 13:35 Temperature 97.4 F L Pulse Rate 77 Respiratory 18 Rate Blood Pressure 153/88 O2 Sat by Pulse 98 Oximetry Medical Decision Making - Medical Decision Making Was pt. sent in by a medical professional or institution (, PA, ENGINEERING CLERK, urgent care, hospital, or senior care...) When possible be specific @ -No Did you speak to anyone other than the patient for history (EMS, parent, family, police, friend...)? What history was obtained from this source @ -No Did you review nursing and triage notes (agree or disagree)? Why? @ -I reviewed and agree with nursing and triage notes Were old charts reviewed (outside hosp., previous admission, EMS record, old EKG, old radiological studies, urgent care reports/EKG's, senior care records)? Report findings @ -No old charts were reviewed Differential Diagnosis (chest pain, altered mental status, abdominal pain women, abdominal pain men, vaginal bleeding, weakness, fever, dyspnea, syncope, headache, dizziness, GI bleed, back pain, seizure, CVA, palpatations, mental health, musculoskeletal)? @ -Differential Back Pain: Strain, zoster, cauda equina syndrome, epidural abscess, vertebral osteomyelitis, discitis, fracture, subluxation, disc herniation, DJD, spinal stenosis, dissection, AAA, pancreatitis, peptic ulcer disease, pyelonephritis, kidney stone, this is not meant to be an all-inclusive list. EKG interpreted by me (3pts min.). @ -none X-rays interpreted by me (1pt min.). @ -X-ray of the chest 1 view chronic changes without evidence for acute pulmonary disease X-ray of the right shoulder no acute fracture or dislocation X-ray of the thoracic spine chronic deformities with exaggerated kyphosis noted with multiple vertebral body height loss CT interpreted by me (1pt min.). @ -None done U/S interpreted by me (1pt. min.). @ -None done What testing was considered but not performed or refused? (CT, X-rays, U/S, labs)? Why? @ -None What meds were considered but not given or refused? Why? @ -None Did you discuss the management of the patient with other professionals (professionals i.e. , PA, ENGINEERING CLERK, lab, RT, psych nurse, child protective services social worker, food service coordinator, teacher, disbursing officer, case picker)? Give summary @ -No Was smoking cessation discussed for >3mins.? @ -No Was critical care preformed (if so, how long)? @ -No Were there social determinants of health that impacted care today? How? (Homelessness, low income, unemployed, alcoholism, drug addiction, transportation, low edu. Level, literacy, decrease access to med. care, nursing home, rehab)? @ -No Was there de-escalation of care discussed even if they declined (Discuss DNR or withdrawal of care, Hospice)? DNR status @ -No What co-morbidities impacted this encounter? (DM, HTN, Smoking, COPD, CAD, Cancer, CVA, ARF, Chemo, Hep., AIDS, mental health diagnosis, sleep apnea, morbid obesity)? @ -None Was patient admitted / discharged? Hospital course, mention meds given and route, prescriptions, significant lab abnormalities, going to OR and other pertinent info. @ -Discharge. 78-year-old female presenting after mechanical fall. Overall patient is well-appearing. She is provided with dose of pain medication. X- rays of the chest, right shoulder, thoracic spine unremarkable. Patient is provided with symptomatic treatment control at home and instructed to follow-up with primary care provider for further evaluation. Case discussed with Dr. Faria Undiagnosed new problem with uncertain prognosis? @ -No Drug Therapy requiring intensive monitoring for toxicity (Heparin, Nitro, Insulin, Cardizem)? @ -No Were any procedures done? @ -No Diagnosis/symptom? @ -Back pain following mechanical fall Acute, or Chronic, or Acute on Chronic? @ -Acute Uncomplicated (without systemic symptoms) or Complicated (systemic symptoms)? @ -Uncomplicated Side effects of treatment? @ -No Exacerbation, Progression, or Severe Exacerbation? @ -No Poses a threat to life or bodily function? How? (Chest pain, USA, NE, pneumonia, PE, COPD, DKA, ARF, appy, cholecystitis, CVA, Diverticulitis, Homicidal, Suicidal, threat to staff... and all critical care pts) @ -No Disposition Clinical Impression: Back pain Disposition: HOME SELF-CARE Condition: Good Instructions (If sedation given, give patient instructions): Back Pain (ED) Additional Instructions: Please return to the Emergency Department if symptoms worsen or any other concerns. Prescriptions: Ibuprofen [Motrin] 600 mg PO Q8HR PRN #30 tab PRN Reason: Pain Is patient prescribed a controlled substance at d/c from ED?: No Referrals: Grant Mario MD [Primary Care Provider] - 1-2 days Time of Disposition: 15:32
--- NOTE | 2024-07-11 15:17 | XR ---
EXAMINATION TYPE: XR thoracic spine 2V DATE OF EXAM: 07/11/2024 3:12 PM COMPARISON: 01/14/2018 CLINICAL INDICATION: Female, 78 years old with history of fall, pain, TECHNIQUE: Frontal, lateral, and swimmer's view of thoracic spine are obtained. FINDINGS: Exaggerated kyphosis noted. Moderate multilevel degenerative disc space narrowing. Multipl e vertebral body loss of height of indeterminate age and/or etiology likely related to osteoporosis. Changes of vertebroplasty. Visualized ribs are unremarkable. IMPRESSION: Chronic deformities throughout the thoracic spine of uncertain age and/or etiology. [facility], , 07/11/2024 3:15 PM
--- NOTE | 2024-07-11 15:20 | XR ---
EXAMINATION TYPE: XR shoulder complete RT DATE OF EXAM: 07/11/2024 3:12 PM COMPARISON: None. CLINICAL INDICATION: Female, 78 years old with history of fall, pain, pain TECHNIQUE: XR shoulder complete RT views were obtained FINDINGS: There is no acute fracture/dislocation evident. Chronic deformity proximal humerus. The acromioclavic ular and glenohumeral joint spaces appear within normal limits. The visualized ribs are intact and u nremarkable. IMPRESSION: There is no acute fracture or dislocation. [facility], , 07/11/2024 3:18 PM
--- NOTE | 2024-07-11 15:21 | XR ---
EXAMINATION TYPE: XR chest 1V DATE OF EXAM: 07/11/2024 3:12 PM COMPARISON: 05/24/2024 CLINICAL INDICATION: Female, 78 years old with history of fall, pain, TECHNIQUE: XR chest 1V views of the chest are obtained. FINDINGS: Demonstrated are scattered senescent parenchymal change. There is no evidence for focal infiltrate. The heart is stable. Hilar and mediastinal structures are within normal limits. Degenerative changes are seen of the dorsal spine. IMPRESSION: 1. Chronic changes without evidence for acute pulmonary disease. [facility], , 07/11/2024 3:19 PM
[2024-07-11 16:08] VITALS: BP 136/83; PULSE 61; RESP 19; TEMP 99
[2024-07-11] MEDS: MORPHINE SULFATE 4 MG/ML SYRINGE IM STA (16:08)
== END 2024-07-11 17:00 | disposition home or self-care (01) ==
LOC: EC 13:24
DX: M54.9 Dorsalgia, unspecified (principal); Z86.73 Personal history of transient ischemic attack (TIA), and cerebral infarction without residual deficits; Z88.2 Allergy status to sulfonamides; Z88.1 Allergy status to other antibiotic agents; Z88.6 Allergy status to analgesic agent; W18.30XA Fall on same level, unspecified, initial encounter
CPT/HCPCS: 72070; 73030; 71045; 99283; 96372; J2270

== ENCOUNTER → 2024-07-18 | Outpatient (CLI) | payer OTHER ==
--- NOTE | 2024-07-18 12:56 | CT ---
EXAMINATION TYPE: CT thor lumbar spine wo con CT DLP: 1027 mGycm, Automated exposure control for dose reduction was used. DATE OF EXAM: 07/18/2024 9:53 AM CLINICAL INDICATION:Female, 78 years old with history of M54.50 LOW BACK PAIN M40.00 POSTURAL KYPHOSI S; Chronic back pain, kyphosis., pain COMPARISON: Thoracic spine radiograph 07/11/2024, CT cervicothoracic spine 05/24/2024, CT thoracolumbar spine 02/13/2024 CT abdomen and pelvis 07/06/2023, lumbar spine radiograph 02/03/2022, CT lumbar spine 08/18/2021 TECHNIQUE: Axial images of the thoracic and lumbar spine were obtained without contrast. Coronal and sagittal reformats were performed. CT Contrast: Contrast used: none. Oral contrast used: none. FINDINGS: Diffuse bone demineralization. Remote healed left posterior ninth and 10th rib fractures. Remote frac ture deformity of the proximal right humerus. Similar post vertebral augmentation changes involving the T8 vertebral body with moderate to severe c hronic compression deformity. Similar moderate compression deformity of the T7 vertebral body. Mild c hronic compression deformity T5 vertebral body. Chronic moderate to severe compression deformities at T6 vertebral body with associated sclerotic changes. Multilevel thoracic spine degenerative changes with levoconvex curvature centered in the midthoracic spine. Similar increased kyphotic curvature of the thoracic spine centered at the compression fractures. Multilevel degenerative changes of the visu alized cervical spine. Grade 1 anterolisthesis of C4 on C5. Mild superior endplate central compression deformity of the L4 vertebral body. None of the thoracolum bar compression fractures resulting in retropulsion. No new fractures of the thoracolumbar spine. No significant central canal or neural from stenosis of the thoracic spine. Mild broad-based disc bulges at L3-L4 and L4-L5 without significant central canal stenosis. No significant spinal canal or neural foraminal stenosis of the lumbar spine. Left anterior chest wall cardiac pacemaker device with leads terminating in the right atrium and righ t ventricle. Cardiomegaly. Left atrial occlusion device. Gallbladder is surgically absent. Bilateral carotid bulb calcifications. Mild atelectatic calcification of the aorta and its branches. Trace dez cardial effusion. Small hiatal hernia. Moderate colonic stool burden. Nonobstructive punctate right r enal calculi. IMPRESSION: 1. No acute fracture of the thoracolumbar spine. 2. Redemonstration of multilevel compression deformities of the thoracolumbar spine involving T5, T6, T8, and L4. 3. Posterior vertebral augmentation changes for prior compression fracture of the T8 vertebral body. 4. Mild multilevel degenerative disc disease of the lower lumbar spine. No evidence for significant c entral canal neural foramina stenosis of the thoracolumbar spine. 5. Increased thoracic kyphosis at the thoracic compression deformities. Mild levoconvex scoliosis of the thoracic spine. [facility], , 07/18/2024 12:54 PM
== END | disposition home or self-care (01) ==
LOC: RADCTMAIN 09:02
PROVIDERS: ATTEND Internal Medicine Hospice and Palliative Medicine
DX: M51.360 Other intervertebral disc degeneration, lumbar region with discogenic back pain only (principal); M40.00 Postural kyphosis, site unspecified; M48.54XA Collapsed vertebra, not elsewhere classified, thoracic region, initial encounter for fracture; M40.04 Postural kyphosis, thoracic region
CPT/HCPCS: 72128; 72131

== ENCOUNTER 2024-10-31 13:24 | Day surgery (SDC) | payer OTHER ==
[2024-10-30 11:14] VITALS: BMI 18.5
[2024-10-31] MEDS: IV FLUID CONTINUATION 1,000 ML IV ONE (13:49)
[2024-10-31 13:56] VITALS: TEMP 97.1
[2024-10-31] MEDS: LACTATED RINGERS 1,000 ML IV SCH (14:12)
[2024-10-31] MEDS: fentaNYL (PF) 50 MCG/ML 2 ML AMP IVP PRN (14:13)
[2024-10-31] MEDS ORDERED: LIDOCAINE 1% INJ 10MG/ML (20 ML MDV) ONE (15:40)
[2024-10-31] MEDS ORDERED: PROPOFOL 10 MG/ML 20 ML VIAL IV ONE (15:40)
--- NOTE | 2024-10-31 16:00 | P.PCN ---
Date of Procedure: 10/31/24 Procedure(s) Performed: BRIEF HISTORY: Patient is a 78-year-old, pleasant, white female scheduled up anoscopy for evaluation of progressive dysphagia to solids. Last EGD with dilation was done in May 2024 and she was noted to have a proximal esophageal web and a distal esophageal stricture that was dilated with 12 and 13.5 mm TTS balloon.. PROCEDURE PERFORMED: Esophagogastroduodenoscopy with dilation and biopsy.. PREOPERATIVE DIAGNOSIS: Progressive dysphagia to solids. IV sedation per anesthesia. PROCEDURE: After informed consent was obtained, the patient was brought into the endoscopy unit. IV sedation was administered by Anesthesia under continuous monitoring. Initially the Olympus GIF-140 video endoscope was inserted into the mouth. Esophagus intubated without any difficulty. It was gradually advanced into the proximal esophagus and there was a circumferential esophageal web brianda ntified at 18 cm from the incisors. At this time balloon dilation was performed using 12 and 13.5 mm TTS balloon and subsequently I was able to advance the scope into the distal esophagus. The distal esophagus at 36 cm from the incisors there was another esophageal stricture identified and the scope could not be advanced to this area. At this time balloon dilation was performed using 12 and 13.5 mm TTS balloon at which time there was mucosal tear with oozing identified and hence further dilation was not performed. I was able to advance the scope into the stomach and duodenum and carefully examined. The bulb and the second part of the duodenum appeared normal. The scope at this time was withdrawn to the stomach, adequately insufflated with air, and upon careful examination, mucosa of the antrum, body, cardia and the fundus appeared normal. The scope was then withdrawn into the esophagus. The GE junction was located at 39 cm from the incisors. There was some oozing noted at the site of distal esophageal stricture. There was whitish plaques noted throughout the entire esophagus consistent with Diana esophagitis and biopsies were done from this area. As the scope was gradually being withdrawn and the proximal cervical esophageal web was once again identified and at this time I proceed with a dilation of the web to 40 mm TTS balloon for 30 seconds. The rest of the esophagus appeared normal and the patient tolerated the procedure well. IMPRESSION: 1. Proximal cervical esophageal web status post balloon dilation using 12, 13.5 and up to 14 mm TTS balloon. 2. Distal esophageal stricture status post balloon dilation using 12 and 13.5 mm TTS balloon 3. Whitish plaques throughout the entire esophagus consistent with Diana esophagitis. RECOMMENDATIONS: The findings of this examination were discussed with the patient well as her family. She was advised to be on clear liquids today. Continue with Protonix 40 mg twice daily. Follow-up in the office in 1 month..
[2024-10-31 16:57] VITALS: BP 136/63; PULSE 84; RESP 17
== END 2024-10-31 17:15 | disposition home or self-care (01) ==
LOC: ORWHC2ENDO 13:24
PROVIDERS: ATTEND Internal Medicine Gastroenterology
DX: B37.81 Candidal esophagitis (principal); I25.2 Old myocardial infarction; I25.10 Atherosclerotic heart disease of native coronary artery without angina pectoris; I63.9 Cerebral infarction, unspecified; I48.91 Unspecified atrial fibrillation; I11.0 Hypertensive heart disease with heart failure; I50.9 Heart failure, unspecified; J44.9 Chronic obstructive pulmonary disease, unspecified; E07.9 Disorder of thyroid, unspecified; N28.9 Disorder of kidney and ureter, unspecified; M54.50 Low back pain, unspecified; L23.1 Allergic contact dermatitis due to adhesives; Z88.2 Allergy status to sulfonamides; Z88.6 Allergy status to analgesic agent; Z79.890 Hormone replacement therapy; Z79.899 Other long term (current) drug therapy
CPT/HCPCS: 88305; 43239; 43249; J2003; J3010; J2704; C1726

== ENCOUNTER → 2024-11-19 | Outpatient (CLI) | payer OTHER ==
[2024-11-19 10:53] VITALS: BP 148/90; PULSE 107; RESP 16
--- NOTE | 2024-11-19 14:19 | P.PAINPG ---
Objective - Vital Signs Vital signs: Vital Signs Temp Pulse 107 H 11/19/24 10:44 Resp 16 11/19/24 10:44 BP 148/90 11/19/24 10:44 Pulse Ox 94 L 11/19/24 10:44 FiO2 Intake & Output 11/18/24 11/19/24 11/19/24 18:59 06:59 18:59 Weight 40.823 kg PQRS Measure Charge Sheet Mode of Arrival: Ambulatory Comment: HISTORY OF PRESENT ILLNESS: A 78 yr old female from [place]/ [place] presents today w severe and chronic neck and mid back pain secondary to radiculopathy, spondylosis and facet arthropathy without myelopathy for evaluation. Pt states pain level is provoked at 8-9 /10 in intensity, constant, localized in the cervicothoracic spine, predominantly axial, achy in character w occasional shooting pain up towards the neck. Pain is provoked by any movement. Pain is alleviated by physician guided home stretches daily since Fall 2023, medications, topical, heat & ice, repositioning and rest . She was weaned off of suboxone patches and recently placed on a starting dose of Methadone 5mg daily. Oswestry axial pain score at 30. Interventional procedures include Pacemaker (ADAPTA in 2016), Watchman (2023), L Hip/ Femur ORIF (2021), R Shoulder Fx (2023), Medications include Suboxone patches 20mg wk, Lidocaine REVIEW OF ORGAN SYSTEMS: CONSTITUTIONAL: No fevers or chills. No recent weight loss. NEUROLOGICAL: + numbness and tingling along the distal ex tremities. No seizure disorders or headaches. MUSCULOSKELETAL: + pain PSYCHIATRIC: Denies current depression or suicidal thoughts. Physical Examinations : Constitutional : Cooperative , not in acute distress . Neurologic : Cranial nerve II to XII intact. No focal neurological deficits. Psychiatric : alert & oriented x 3. Matching mood & appropriate affect. Judgment & insight intact. Musculoskeletal : Cervical Spine Motor strength in the deltoid and biceps: Normal right side. Normal Left side Motor strength biceps and the wrist extensors: Normal right side . Normal left side Motor strength in the triceps muscle: Normal right side. Normal left side Deep tendon reflexes: Normal at the biceps. Normal at Brachioradialis. Normal at triceps Vertebral body tenderness to deep palpation over Cervical facet loading test: positive bilaterally Spurling test: positive bilaterally Neck distraction test: positive bilaterally Helio sign: positive bilaterally Lumbar spine Motor strength lower extremities ,thigh and legs 5/5 Right side , 5/5 Left side Deep tendon reflexes : Normal Knee Jerk. Normal Ankle Jerk Vertebral body tenderness over T5, T6, T7, T8 Joy Test positive Lumbar facet Loading Test: positive Right / positive Left Range of motion of the lumbar spine Flexion 30 degrees, extension 10 degrees Straight Leg Raise test: Left/ Right positive at degrees Cierra test: positive right / positive left. Severe tenderness over the Sacroiliac joint on the Right / Left sides Gaenslen test: positive bilaterally Seated flexion test: positive bilaterally. Sacral spine : Severe tenderness over the Sacroiliac joint: right side / left side Range of motion: Flexion of the lumbar spine <60 degrees Range of motion: Extension of the lumbar spine <20 degrees Gaenslen's Test positive Cierra test: positive right side / left side Thigh Thrust Test Sacral Thrust Test Imaging: CT non contrast thoracic/ lumbar spine from 07/18/[address] non contrast cervical spine from 05/24/24 reviewed Assessment/ Plan : C3-C4/ C4-C5 anterolisthesis, C5-C7 facet arthropathy, Thoracic kyphosis, T5/ T6/ T8 compression, L4 compression, Recommendation of medication management. Recommend lumbar x ray due to recent fall w staff upon arrival and history of L4 fracture. Methadone 5mg ineffective. Returned to Buprenorphone patches that are filled by P[facility] providers at [facility]. Opiate/ narcotic agreement 09/24/24 discontinued. All questions answered. I have spent greater than 30 minutes on patient care today. Dr Fink was available by phone for the evaluation of this patient. The time was used to review the medical records including relevant urine studies and Prescription history (MAPs), review of the available imaging, evaluation and examination of the patient, coordination of care with the medical staff and if applicable referring physicians, as well as creation of the medical record - Pain Location Bilateral Lower Back Non-Pharmacological Interventions: Heat, Home Exercise, Ice, Physical Therapy Pharmacological Interventions: Medication, Topical Medication PQRS Narrative: Smoking Status Never smoker Blood Pressure 148/90 Pain Intensity [Bilateral 10 Lower Back] Scale Used Numeric (1 - 10) Hx Alcohol Use (MH) No Home Medications: Ambulatory Orders Metoprolol Tartrate [Lopressor] 50 mg PO DAILY 10/05/20 Pantoprazole [Protonix] 40 mg PO BID 12/27/21 Ondansetron [Zofran] 4 mg PO Q8H PRN 09/20/22 Aspirin EC [Ecotrin Low Dose] 81 mg PO DAILY 11/13/22 Butalb/Acetaminophen/Caffeine [Fioricet 50-300-40 mg Capsule] 1 cap PO BID PRN 01/10/23 Lidocaine 5% Patch [Lidoderm 5% Patch] 1 patch TRANSDERM BID 04/01/23 Buprenorphine [Buprenorphine 20 MCG/HR] 2 patch TRANSDERM WE 09/27/23 diphenhydrAMINE HCL [Benadryl] 25 mg PO HS 09/27/23 Acetaminophen [Tylenol Extra Strength] 500 - 1,000 mg PO Q6H PRN 01/25/24 Albuterol Inhaler [Ventolin Hfa Inhaler] 2 puff INHALATION RT-Q6H PRN 01/25/24 Benzonatate [Tessalon Perles] 100 mg PO TID PRN 01/25/24 Folic Acid 1 mg PO DAILY 01/25/24 Furosemide [Lasix] 40 mg PO BID@0700,1500 01/25/24 L.acidoph,Paracasei, B.lactis [Probiotic] 1 cap PO DAILY 01/25/24 Methylcellulose (with Sugar) [Citrucel Powder] 3 tsp PO BID PRN 01/25/24 Potassium Chloride Oral Liquid 15 ml PO TID 01/25/24 Triamcinolone 0.5% Cream [Kenalog 0.5% Cream] 1 applic TOPICAL DAILY 01/25/24 witch Zoila [Tucks Medicated Pads] 1 pad TOPICAL DIRECTED PRN 01/25/24 Levothyroxine Sodium [Synthroid] 112 mcg PO DAILY 04/01/24 Diltiazem Oral [Cardizem*] 30 mg PO TID 30 Days #90 tab 04/02/24 Amiodarone [Cordarone] 200 mg PO DAILY 05/16/24 Melatonin 5 mg PO HS 05/16/24 Sodium Chloride [[place]] 1 spray EA NOSTRIL BID PRN 05/16/24 Desloratadine [Clarinex] 5 mg PO DAILY 05/26/24 Alendronate Sodium 70 mg PO WEEKLY 10/30/24 Cholestyramine Resin [Questran] 1 scoop PO QID PRN 10/30/24 DULoxetine HCL 40 mg PO HS 10/30/24 Diphenoxylate HCl/Atropine [Lomotil 2.5-0.025 mg Tablet] 1 each PO TID PRN 10/30/24 Galcanezumab-Gnlm [Emgality Pen] 120 mg SQ DIRECTED 10/30/24 Ipratropium-Albuterol Nebulize [Duoneb 0.5 mg-3 mg/3 ml Soln] 3 ml INHALATION Q4-6H PRN 10/30/24 Lidocaine/Gabapentin/Diclofena 1 applic TOPICAL DIRECTED PRN 10/30/24 lamoTRIgine [LaMICtal ODT] 25 mg PO QAM 10/30/24 lamoTRIgine [LaMICtal ODT] 50 mg PO HS 10/30/24 methocarbamoL 500 mg PO TID 10/30/24 polyethylene glycoL 3350 [Miralax] 17 gm PO DAILY 10/30/24 Controlled Substance Measures - Controlled Substance Measures Is patient prescribed a controlled substance at discharge?: No
== END ==
LOC: PNWHC3 10:29
PROVIDERS: ATTEND Specialist
DX: M47.26 Other spondylosis with radiculopathy, lumbar region (principal); M43.12 Spondylolisthesis, cervical region; M40.204 Unspecified kyphosis, thoracic region; G95.20 Unspecified cord compression; Z91.048 Other nonmedicinal substance allergy status; Z88.2 Allergy status to sulfonamides; Z88.8 Allergy status to other drugs, medicaments and biological substances
CPT/HCPCS: 99211

== ENCOUNTER 2024-11-20 10:34 | Emergency (ER) | payer OTHER ==
[2024-11-20 10:39] VITALS: PULSE 97
--- NOTE | 2024-11-20 10:56 | ED ---
General Adult HPI - General Chief complaint: Fall Stated complaint: Fall-R hip pain Time Seen by Provider: 11/20/24 10:50 Source: patient, RN notes reviewed Mode of arrival: ambulatory Limitations: no limitations - History of Present Illness Initial comments: 78-year-old female presenting to the emergency department for complaints of right hip pain after a fall that occurred yesterday. Patient states that she was in her kitchen yesterday morning at 10:00 AM when she turned around too quickly causing her to feel dizzy and fall down. She states that she did hit the right side of her head on the ground however denies loss of consciousness at the time of the fall. She states that she has a mild pain at the area where she hit her head, however her main concern is the pain located to her right hip. currently denying headache, neck pain, visual disturbances, or focal neurological deficits. She has a history of arthroplasty of bilateral hips. She endorses lumbar back pain as well. Denies loss of bladder or bowel control or saddle anesthesias. Denies blood thinner use. - Related Data Home Medications Medication Instructions Recorded Confirmed Metoprolol Tartrate [Lopressor] 50 mg PO DAILY 10/05/20 11/19/24 Pantoprazole [Protonix] 40 mg PO BID 12/27/21 11/19/24 Ondansetron [Zofran] 4 mg PO Q8H PRN 09/20/22 11/19/24 Aspirin EC [Ecotrin Low Dose] 81 mg PO DAILY 11/13/22 11/19/24 Butalb/Acetaminophen/Caffeine 1 cap PO BID PRN 01/10/23 11/19/24 [Fioricet 50-300-40 mg Capsule] Lidocaine 5% Patch [Lidoderm 5% 1 patch TRANSDERM BID 04/01/23 11/19/24 Patch] Buprenorphine [Buprenorphine 20 2 patch TRANSDERM WE 09/27/23 11/19/24 MCG/HR] diphenhydrAMINE HCL [Benadryl] 25 mg PO HS 09/27/23 11/19/24 Acetaminophen [Tylenol Extra 500 - 1,000 mg PO Q6H PRN 01/25/24 11/19/24 Strength] Albuterol Inhaler [Ventolin Hfa 2 puff INHALATION RT-Q6H PRN 01/25/24 11/19/24 Inhaler] Benzonatate [Tessalon Perles] 100 mg PO TID PRN 01/25/24 11/19/24 Folic Acid 1 mg PO DAILY 01/25/24 11/19/24 Furosemide [Lasix] 40 mg PO BID@0700,1500 01/25/24 11/19/24 L.acidoph,Paracasei, B.lactis 1 cap PO DAILY 01/25/24 11/19/24 [Probiotic] Methylcellulose (with Sugar) 3 tsp PO BID PRN 01/25/24 11/19/24 [Citrucel Powder] Potassium Chloride Oral Liquid 15 ml PO TID 01/25/24 11/19/24 Triamcinolone 0.5% Cream [Kenalog 1 applic TOPICAL DAILY 01/25/24 11/19/24 0.5% Cream] witch Zoila [Tucks Medicated Pads] 1 pad TOPICAL DIRECTED PRN 01/25/24 11/19/24 Levothyroxine Sodium [Synthroid] 112 mcg PO DAILY 04/01/24 11/19/24 Amiodarone [Cordarone] 200 mg PO DAILY 05/16/24 11/19/24 Melatonin 5 mg PO HS 05/16/24 11/19/24 Sodium Chloride [[place]] 1 spray EA NOSTRIL BID PRN 05/16/24 11/19/24 Desloratadine [Clarinex] 5 mg PO DAILY 05/26/24 11/19/24 Alendronate Sodium 70 mg PO WEEKLY 10/30/24 11/19/24 Cholestyramine Resin [Questran] 1 scoop PO QID PRN 10/30/24 11/19/24 DULoxetine HCL 40 mg PO HS 10/30/24 11/19/24 Diphenoxylate HCl/Atropine 1 each PO TID PRN 10/30/24 11/19/24 [Lomotil 2.5-0.025 mg Tablet] Galcanezumab-Gnlm [Emgality Pen] 120 mg SQ DIRECTED 10/30/24 11/19/24 Ipratropium-Albuterol Nebulize 3 ml INHALATION Q4-6H PRN 10/30/24 11/19/24 [Duoneb 0.5 mg-3 mg/3 ml Soln] Lidocaine/Gabapentin/Diclofena 1 applic TOPICAL DIRECTED PRN 10/30/24 11/19/24 lamoTRIgine [LaMICtal ODT] 25 mg PO QAM 10/30/24 11/19/24 lamoTRIgine [LaMICtal ODT] 50 mg PO HS 10/30/24 11/19/24 methocarbamoL 500 mg PO TID 10/30/24 11/19/24 polyethylene glycoL 3350 [Miralax] 17 gm PO DAILY 10/30/24 11/19/24 Previous Rx's Medication Instructions Recorded Diltiazem Oral [Cardizem*] 30 mg PO TID 30 Days #90 tab 04/02/24 Allergies Allergy/AdvReac Type Severity Reaction Status Date / Time adhesive Allergy RASH FROM Verified 11/20/24 10:39 EKG STICKERS apixaban [From Eliquis] Allergy Rash/Hives Verified 11/20/24 10:39 celecoxib [From Celebrex] Allergy Rash/Hives Verified 11/20/24 10:39 sertraline HCl [From Zoloft] Allergy Rash/Hives Verified 11/20/24 10:39 sulfamethoxazole Allergy Anaphylaxis Verified 11/20/24 10:39 [From Bactrim] trimethoprim [From Bactrim] Allergy Anaphylaxis Verified 11/20/24 10:39 hydroxyzine [From Vistaril] AdvReac Nausea & Verified 11/20/24 10:39 Vomiting & Diarrhea Review of Systems ROS Statement: Those systems with pertinent positive or pertinent negative responses have been documented in the HPI. ROS Other: All systems not noted in ROS Statement are negative. Past Medical History Past Medical History: Atrial Fibrillation, Blood Disorder, Coronary Artery Disease (CAD), Chest Pain / Angina, Heart Failure, COPD, CVA/TIA, Fibromyalgia, GERD/Reflux, GI Bleed, Hypertension, Myocardial Infarction (TN), Musculoskeletal Disorder, Osteoarthritis (OA), Renal Disease, Thyroid Disorder Additional Past Medical History / Comment(s): Pacemaker for Syncope/Tachybrady Syndrome. Hx RHEUMATIC FEVER. Heart murmur, chronic back and bilateral shoulder pain. SEVERE OSTEOPOROSIS, Vertigo, DJD, GI ulcers, esophagitis/esophageal stricture, PROBLEMS WITH SWALLOWING, FALLS - loses balance "Cannot lie down for long without having back pain - Broke back " Left hip ORIF of trochanteric comminuted femur fracture in November 2021, stroke 2022, Rt. shoulder fracture 08/14, had an episode after heart attack where she has a few days she doesn't remember-possible siezure x1, pt states she is unsure though, kidney disease-Stage 2 Last Myocardial Infarction Date:: 2002 History of Any Multi-Drug Resistant Organisms: None Reported Past Surgical History: Appendectomy, Cardiac Ablation, Cholecystectomy, Ear Surgery, Heart Catheterization, Hernia Repair, Hysterectomy, Orthopedic Surgery, Pacemaker, Tonsillectomy Additional Past Surgical History / Comment(s): ORIF LEFT LOWER ARM, numerous DILATATION OF ESOPHAGUS, biopsies were negative, colonoscopy, Pacemaker (ADAPTA) placed 07/07 at [facility], bilateral stapedectomies(stainless steel in both ears), Hiatal Hernia repair, inguinal & femoral hernia repairs, "cement placed in back, due to broken back/pelvis". Left Femur Surgery. Watchman device 06/16. Past Anesthesia/Blood Transfusion Reactions: Motion Sickness, Postoperative Nausea & Vomiting (PONV) Additional Past Anesthesia/Blood Transfusion Reaction / Comment(s): No problems with prior blood transfusion. BROTHER ALSO HAS PONV. Type of Cardiac Device: Permanent Pacemaker Device Placement Date:: 06/2016 Past Psychological History: Depression Smoking Status: Never smoker Past Alcohol Use History: None Reported Past Drug Use History: None Reported - Past Family History Brother(s) Family Medical History: Cancer Additional Family Medical History / Comment(s): Throat cancer. Father Family Medical History: Pneumonia Additional Family Medical History / Comment(s): EMPHYSEMA. Mother Family Medical History: COPD, Rheumatoid Arthritis (RA) Additional Family Medical History / Comment(s): EMPHYSEMA. General Exam Limitations: no limitations Eye exam: Present: normal appearance, PERRL, EOMI. Absent: scleral icterus, conjunctival injection, periorbital swelling Neck exam: Present: normal inspection. Absent: tenderness, meningismus, lymphadenopathy Respiratory exam: Present: normal lung sounds bilaterally. Absent: respiratory distress, wheezes, rales, rhonchi, stridor Cardiovascular Exam: Present: regular rate, normal rhythm, normal heart sounds. Absent: systolic murmur, diastolic murmur, rubs, gallop, clicks GI/Abdominal exam: Present: soft, normal bowel sounds. Absent: distended, tenderness, guarding, rebound, rigid Right Hip exam: Present: tenderness. Absent: full ROM, swelling Upper Leg exam: Present: full ROM Knee exam: Present: full ROM. Absent: tenderness, swelling Gait: not tested/not observed Back exam: Present: normal inspection, tenderness. Absent: CVA tenderness (R), CVA tenderness (L) Neurological exam: Present: alert, oriented X3, CN II-XII intact Course Vital Signs 11/20/24 11/20/24 10:36 12:30 Temperature 97.9 F 98 F Pulse Rate 97 97 Respiratory 18 16 Rate Blood Pressure 112/72 125/85 O2 Sat by Pulse 99 100 Oximetry Medical Decision Making - Medical Decision Making Was pt. sent in by a medical professional or institution (, PA, VIDEO PRODUCTION INTERN, urgent care, hospital, or prison...) When possible be specific @ -No Did you speak to anyone other than the patient for history (EMS, parent, family, police, friend...)? What history was obtained from this source @ -No Did you review nursing and triage notes (agree or disagree)? Why? @ -I reviewed and agree with nursing and triage notes Were old charts reviewed (outside hosp., previous admission, EMS record, old EKG, old radiological studies, urgent care reports/EKG's, prison records)? Report findings @ -No old charts were reviewed Differential Diagnosis (chest pain, altered mental status, abdominal pain women, abdominal pain men, vaginal bleeding, weakness, fever, dyspnea, syncope, headach e, dizziness, GI bleed, back pain, seizure, CVA, palpatations, mental health, musculoskeletal)? @ -Intracranial hemorrhage, subdural hematoma, concussion, cervical spine fracture, hip fracture, hip contusion, this list is not all inclusive EKG interpreted by me (3pts min.). @ -None X-rays interpreted by me (1pt min.). @ -X-ray of the lumbar spine reveals no acute fracture or dislocation with redemonstration of compression deformity at L4 X-ray of the right hip and AP pelvis reveals a acute mildly displaced right superior pubic rami fracture. CT interpreted by me (1pt min.). @ - CT of the brain and C-spine without contrast reveals no acute cervical spine process however there is a focus of increased attenuation within the right frontal lobe measuring nearly 1 cm unable to exclude small contusive hemorrhage U/S interpreted by me (1pt. min.). @ -None done What testing was considered but not performed or refused? (CT, X-rays, U/S, labs)? Why? @ -None What meds were considered but not given or refused? Why? @ -None Did you discuss the management of the patient with other professionals (professionals i.e. , PA, VIDEO PRODUCTION INTERN, lab, RT, psych nurse, health care social worker, hand tennis ball coverer, teacher, correctional officer captain, caser shoe parts)? Give summary @ -i spoke with Dr. Sheridan, at [facility], who has agreed to accept the patient as a transfer for further evaluation and management secondary to CT scan findings revealing a contusive hemorrhage of the right frontal lobe. Was smoking cessation discussed for >3mins.? @ -No Was critical care preformed (if so, how long)? @ -Yes, for greater than 35 minutes this patient was transferred to a higher level of care for further management of intracranial hemorrhage. Were there social determinants of health that impacted care today? How? (Homelessness, low income, unemployed, alcoholism, drug addiction, transportation, low edu. Level, literacy, decrease access to med. care, [place] [facility], rehab)? @ -No Was there de-escalation of care discussed even if they declined (Discuss DNR or withdrawal of care, Hospice)? DNR status @ -No What co-morbidities impacted this encounter? (DM, HTN, Smoking, COPD, CAD, Cancer, CVA, ARF, Chemo, Hep., AIDS, mental health diagnosis, sleep apnea, morbid obesity)? @ -None Was patient admitted / discharged? Hospital course, mention meds given and route, prescriptions, significant lab abnormalities, going to OR and other pertinent info. @ -Transferred. 78-year-old female presenting to the ER after a fall that occurred yesterday. Overall patient is well-appearing in examination bed in no signs of distress. There are no neurological deficits on examination. Patient has pain to the right hip and lumbar back with no red flag findings concerning for cauda equina. She is provided with morphine for pain control x-ray imaging of the lumbar spine is unremarkable. X-ray of the right hip and AP pelvis reveals an acute mildly displaced right superior pubic rami fracture. CT of the brain and C-spine without contrast reveals a focus of increased attenuation within the right frontal lobe measuring approximately 1 cm concerning for an intracranial hemorrhage that is different as compared to patient's CT of the brain she had completed January 2024. Patient will be transferred to [facility] for further intervention of intracranial hemorrhage. She is provided with Dilaudid for additional pain control. This case was discussed with my attending Dr. Zuleta. Patient is accepted for transfer to [facility] by Dr. Sheridan. Undiagnosed new problem with uncertain prognosis? @ -No Drug Therapy requiring intensive monitoring for toxicity (Heparin, Nitro, Insulin, Cardizem)? @ -No Were any procedures done? @ -No Diagnosis/symptom? @ -Intracranial hemorrhage/contusion Acute, or Chronic, or Acute on Chronic? @ -Acute Uncomplicated (without systemic symptoms) or Complicated (systemic symptoms)? @ -Complicated Side effects of treatment? @ -No Exacerbation, Progression, or Severe Exacerbation? @ -No Poses a threat to life or bodily function? How? (Chest pain, [place], [place], pneumonia, PE, COPD, DKA, ARF, appy, cholecystitis, CVA, Diverticulitis, Homicidal, Suicidal, threat to staff... and all critical care pts) @ -No Disposition Clinical Impression: Intracranial hemorrhage Disposition: OTHER INSTITUTION NOT DEFINED Referrals: Grant Mario MD [Primary Care Provider] - 1-2 days - Out of Hospital Transfer - Req. Specs Out of Hospital Transfer - Requested Specifics: Other Emergency Center ([facility])
[2024-11-20] MEDS: MORPHINE SULFATE 4 MG/ML SYRINGE IM STA (11:16)
--- NOTE | 2024-11-20 12:01 | CT ---
EXAMINATION TYPE: CT brain doreen flores DATE OF EXAM: 11/20/2024 COMPARISON: CLINICAL INDICATION: Female, 78 years old with history of fall, [place]; [facility], Fall, [place]. TECHNIQUE: CT scan of the head and cervical spine are performed without contrast. CT DLP: 1207.[address] CTDI: mGy Automated exposure control for dose reduction was used. FINDINGS: There is a focus of increased attenuation within the right frontal lobe seen best on image 37 of 51 measuring nearly 1 cm. I cannot exclude a small contusive hemorrhage. No additional areas of hemorrha ge appreciated. No extra-axial collections. The ventricles, basal cisterns and sulci overlying the ce rebral convexities are within normal limits for the patient's age group. Cervical spine is visualized in its entirety from C1 through upper thoracic levels and demonstrates s atisfactory alignment without evidence of acute fracture or dislocation. Prevertebral soft tissue ap pears within normal limits. No acute fracture seen. Chronic anterior subluxation of C4 on C5 measurin g 4 mm. The C1-C2 articulation is unremarkable. IMPRESSION: 1.There is a focus of increased attenuation within the right frontal lobe seen best on image 37 of 51 measuring nearly 1 cm. I cannot exclude a small contusive hemorrhage. 2. No acute fracture or dislocation seen. [facility], , 11/20/2024 11:58 AM
--- NOTE | 2024-11-20 12:12 | XR ---
EXAMINATION TYPE: XR lumbar spine 2 or 3V DATE OF EXAM: 11/20/2024 CLINICAL HISTORY: pain, fall TECHNIQUE: Three views of the lumbar spine are submitted. COMPARISON: The thoracolumbar spine 07/18/2024 FINDINGS: Diffuse bone demineralization. There are 5 lumbar type vertebral bodies identified. S-shaped scoliotic curvature of the thoracolumba r spine with dextrocurvature of the lumbar spine. Redemonstration of superior endplate central compre ssion deformity of the L4 vertebral body. Approximately 25% height loss and no retropulsion. Remainin g visualized vertebral bodies demonstrate maintained heights. Multilevel displacement with endplate s clerosis. The overlying soft tissue appears unremarkable. Cholecystectomy clips in the right upper qu adrant. Cardiac pacemaker lead. IMPRESSION: 1. No acute fracture or dislocation is seen in the lumbar spine. 2. Redemonstration of superior central endplate compression deformity of the L4 vertebral body. 3. S-shaped scoliotic curvature of the thoracolumbar spine. 4. Multilevel degenerative disc disease of the lumbar spine. [facility], , 11/20/2024 12:09 PM
--- NOTE | 2024-11-20 12:14 | XR ---
EXAMINATION TYPE: XR Hip RT and AP Pelvis DATE OF EXAM: 11/20/2024 11:51 AM INDICATION: Patient age:Female; 78 years old; Reason for study: fall, pain; PHH. pain COMPARISON: Bilateral femur radiographs 02/13/2024, CT chest and the pelvis 02/13/2024 TECHNIQUE: The right hip was examined in the frontal and lateral projections and a AP pelvis. FINDINGS: Diffuse bone demineralization. Bilateral proximal femur fixation hardware. Hardware appears intact with appropriate alignment. No dislocation. Acute mildly displaced fracture of the right supe rior pubic ramus. Both SI joints appear intact. No soft tissue swelling. IMPRESSION: Acute mildly displaced right superior pubic rami fracture. [facility], , 11/20/2024 12:12 PM
[2024-11-20 12:43] VITALS: BP 125/85; RESP 16; TEMP 98
[2024-11-20] MEDS: HYDROmorphone 0.5 MG/0.5 ML SYRINGE IM STA (12:44)
== END 2024-11-20 13:25 | disposition other institution (70) ==
LOC: EC 10:34
DX: S06.300A Unspecified focal traumatic brain injury without loss of consciousness, initial encounter (principal); Z88.1 Allergy status to other antibiotic agents; Z91.048 Other nonmedicinal substance allergy status; Z88.2 Allergy status to sulfonamides; Z88.8 Allergy status to other drugs, medicaments and biological substances; W19.XXXA Unspecified fall, initial encounter; Y92.000 Kitchen of unspecified non-institutional (private) residence as the place of occurrence of the external cause
CPT/HCPCS: 72100; 73502; 72125; 70450; 99285; 96372 ×2; J2270; J1171